=== PATIENT | female | born 1950 | race Caucasian/White ===

== ENCOUNTER 2018-06-07 09:09 | Emergency (ER) | payer OTHER, SELFPAY ==
[2018-06-07 09:13] VITALS: BP 181/92; PULSE 71; RESP 18; TEMP 36.8; O2SAT 97
[2018-06-07] MEDS: HYDROcodone 5/Acetaminophen 325 TAB PO (10:03)
[2018-06-07] MEDS: Diazepam 5 MG TAB PO (10:03)
--- NOTE | 2018-06-07 10:04 | W.ED.GENAD ---
Discharge Plan Disposition Patient Disposition: HOME Condition: Improving Discharge Details Chief Complaint: Orthopedic Clinical Impression: Chest wall contusion Primary Care Provider: Laisha Mcmahon ED Provider: Ludivina Oconnor Home Meds and New Rx's Prescriptions: New hydrocodone-acetaminophen 5-325 mg tablet 1 tab PO Q6H PRN (Reason: pain) Qty: 10 RF: 0 diazepam [Valium] 5 mg tablet 5 mg PO TID PRN (Reason: muscle spasm) Qty: 10 RF: 0 Continue cetirizine [Zyrtec] 10 MG tablet 10 mg PO DAILY PRNRF: 0 lancets [FreeStyle Lancets] 1 EACH misc 1 ea Sub-Q DAILY PRNRF: 0 TEST STRIPS 1 EACH strip 1 strip Intradermal DAILY RF: 0 nystatin 15 GM cream 15 gm Topical BID PRNQty: 15 RF: 0 atorvastatin 40 MG tablet 40 mg PO DAILY Qty: 90 RF: 12 lisinopril 2.5 MG tablet 2.5 mg PO DAILY Qty: 90 RF: 12 duloxetine 60 MG capsule,delayed release(DR/EC) 60 mg PO DAILY Qty: 90 RF: 12 rivaroxaban [Xarelto] 20 MG tablet 20 mg PO DAILY Qty: 90 RF: 12 ergocalciferol (vitamin D2) [Vitamin D2] 50,000 UNIT capsule 1 tab-cap PO Qty: 12 RF: 4 furosemide [Lasix] 40 MG tablet 40 mg PO DAILY PRNQty: 90 RF: 4 gabapentin 600 MG tablet 600 mg PO TID Qty: 270 RF: 12 allopurinol 100 MG tablet 100 mg PO DAILY Qty: 90 RF: 12 ropinirole [Requip] 2 MG tablet 2 mg PO QPM Qty: 90 RF: 4 celecoxib [Celebrex] 200 MG capsule 200 mg PO DAILY Qty: 90 RF: 12 fluticasone-salmeterol [Advair Diskus] 1 EACH blister with device 1 puff Inhalation BID PRNQty: 3 RF: 12 epinephrine [EpiPen 2-Erick] 0.3 MG/0.3 ML auto-injector 0.3 mg IM ONCE Qty: 2 RF: 10 Metoprolol Succinate 25 MG TAB.ER.24H 25 mg PO DAILY Qty: 90 RF: 12 glipizide 10 MG tablet extended release 24hr 10 mg PO DAILY Qty: 90 RF: 11 omeprazole 20 MG capsule,delayed release(DR/EC) 20 mg PO DAILY Qty: 90 RF: 12 folic acid 1 mg tablet 1 mg PO DAILY Qty: 90 RF: 5 acetaminophen [Acetaminophen Extra Strength] 500 MG tablet 1,000 mg PO TID Qty: 180 RF: 3 multivitamin [Multiple Vitamins] 1 TAB tablet 1 tab PO BID PC RF: 0 cyanocobalamin (vitamin B-12) [Vitamin B-12] 500 MCG tablet 1,000 mcg PO DAILY Qty: 100 RF: 0 Discharge Instructions Instructions: Contusion in Adults (ED), Chest Wall Pain (ED) Additional Instructions: Stop taking the Percocet if you are taking the Vicodin. Do not take any additional Tylenol while you are taking the Percocet or Vicodin. Take the Valium as needed and directed for muscle spasm. Alternate ice and heat to the affected area several times daily. Follow-up with your primary care doctor in 1 week for reevaluation. Return immediately to the emergency department any worsening or new concerning symptoms. Discharge Data Discharge Date/Time-TO BE ENTERED AT DEPARTURE: 06/07/18 12:54 Discharge Physician: Ludivina Oconnor Medical Decision Making 67-year-old F w/ h/o of Afib, DM, HTN, Gout who presents for persistent chest wall pain worse with deep breath and movement after fall directly on chest 2 days ago. She was seen at [facility] after injury [address] and had [address] imaging including CT head/C-spine/chest/abdomen and pelvis which she states were negative and she was sent home with Percocet. She denies any new injury. Blood pressure 181/92. Remainder vitals within normal limits. Patient appears nontoxic and in no acute distress. She is speaking in full sentences. Patient has significant tenderness to palpation and pain with upper body movement with movement of her left upper extremity in her left anterior chest and left axilla. Lungs clear to auscultation. Abdomen soft and nontender. No C-spine/T-spine/L-spine tenderness. No obvious evidence of trauma to chest. Patient denies any symptoms prior to fall and states she only developed the chest wall pain after falling directly onto her chest 2 days ago. Appears consistent with chest wall contusion/strain but due to patient's age and medical history, will obtain an EKG. Explained to patient that it is not unusual for pain associated with muscle strain or contusion to last for several days to weeks. As patient has had no relief with Percocet and has been making her nauseous, will give a dose of hydrocodone/Tylenol as well as Valium. Patient offered imaging but through shared decision making, did not see any indication for repeat imaging. Will call [facility] for reports of imaging and lab results. 1010 --EKG notes a rate of 63, sinus, biphasic T wave in lead III not seen in previous but otherwise no acute ST elevation or depression. 1130 --patient feels much better. [facility] imaging reports of CT head/C-spine/chest/abdomen pelvis negative for acute findings. They had not checked a troponin. Will order a troponin. 1230 --troponin negative. Patient feels good and is requesting to go home. She was instructed to stop taking the Percocet as it causes nausea. She had relief today with the Vicodin and Valium so we will prescribe both for home. She was instructed to not take additional Tylenol with vicodin. Instructed to alternate ice and heat, follow-up with her primary care doctor in 1 week and return immediately to the emergency department with any worsening symptoms. HPI General Mode of arrival: ambulatory. Date/Time Provider Initiated Documentation: 06/07/18 09:20. Limitations to Documentation: no limitations. Information obtained by: patient. HPI Narrative: Patient is a 67-year-old female with history of atrial fibrillation, hypertension, gout and diabetes who presents for persistent chest wall pain worse with deep breath and movement after fall directly on chest 2 days ago. Patient states she thinks she tripped over a rock and fell directly onto her chest on the ground at work 2 days ago. She was seen at [facility] 2 days ago right after this injury and had CT imaging including CT head/C-spine/chest/abdomen and pelvis which she states were negative and she was sent home with Percocet. States the Percocet mainly makes her nauseous and does not help with the pain. States she was concerned that she still has pain worse with movement and deep breath. She called her PCP for evaluation today but they were unable to get her an appointment so she was referred here. She denies any new injury. Past medical history: Afib, HTN, Gout, DM Surgical history: Tubal, Rotator cuff repair, R wrist surgery, Carpal tunnel release, L eye surgery, Cholecystectomy, L hip replacement Social history: Smokes tobacco, denies alcohol or drugs Meds: See list Allergies: Adhesive PCP: Laisha Mcmahon Related Data Home Medications Medication Instructions Recorded Confirmed Test Strips 1 strip INTRADERMAL DAILY strip 11/27/12 06/07/18 cetirizine [Zyrtec] 10 mg PO DAILY PRN tab 11/27/12 06/07/18 lancets [FreeStyle Lancets] ea 11/27/12 02/06/18 nystatin 15 gm TOPICAL BID PRN #15 gm 03/10/15 06/07/18 acetaminophen [Acetaminophen Extra 1,000 mg PO TID #180 tablet 11/12/15 06/07/18 Strength] cyanocobalamin (vitamin B-12) 1,000 mcg PO DAILY #100 tab 02/16/17 06/07/18 [Vitamin B-12] multivitamin [Multiple Vitamins] 1 tab PO BID PC tab 02/16/17 06/07/18 atorvastatin 40 mg PO DAILY #90 tab-cap 05/18/17 06/07/18 duloxetine 60 mg PO DAILY #90 tab-cap 08/17/17 06/07/18 lisinopril 2.5 mg PO DAILY #90 tab-cap 08/17/17 06/07/18 rivaroxaban [Xarelto] 20 mg PO DAILY #90 tab-cap 09/12/17 06/07/18 ergocalciferol (vitamin D2) 1 tab-cap PO M-W-F #12 tab-cap 10/04/17 06/07/18 [Vitamin D2] allopurinol 100 mg PO DAILY #90 tab-cap 12/04/17 06/07/18 furosemide [Lasix] 40 mg PO DAILY PRN #90 tab 12/04/17 06/07/18 gabapentin 600 mg PO TID #270 tab-cap 12/04/17 06/07/18 ropinirole [Requip] 2 mg PO QPM #90 tab 12/04/17 06/07/18 celecoxib [Celebrex] 200 mg PO DAILY #90 tab-cap 12/11/17 06/07/18 epinephrine [EpiPen 2-Erick] 0.3 mg IM ONCE #2 dose 12/11/17 06/07/18 fluticasone-salmeterol [Advair 1 puff INHALATION BID PRN #3 disk 12/11/17 06/07/18 Diskus] glipizide 10 mg PO DAILY #90 tab-cap 01/23/18 06/07/18 omeprazole 20 mg PO DAILY #90 tab-cap 02/22/18 06/07/18 folic acid 1 mg tablet 1 mg PO DAILY #90 tab 05/21/18 06/07/18 diazepam [Valium] 5 mg PO TID PRN #10 tab 06/07/18 hydrocodone-acetaminophen 1 tab PO Q6H PRN #10 tab 06/07/18 Previous Rx's Medication Instructions Recorded acetaminophen [Acetaminophen Extra 1,000 mg PO TID #180 tablet 11/12/15 Strength] cyanocobalamin (vitamin B-12) 1,000 mcg PO DAILY #100 tab 02/16/17 [Vitamin B-12] multivitamin [Multiple Vitamins] 1 tab PO BID PC tab 02/16/17 duloxetine 60 mg PO DAILY #90 tab-cap 08/17/17 lisinopril 2.5 mg PO DAILY #90 tab-cap 08/17/17 rivaroxaban [Xarelto] 20 mg PO DAILY #90 tab-cap 09/12/17 ergocalciferol (vitamin D2) 1 tab-cap PO M-W-F #12 tab-cap 10/04/17 [Vitamin D2] allopurinol 100 mg PO DAILY #90 tab-cap 12/04/17 gabapentin 600 mg PO TID #270 tab-cap 12/04/17 ropinirole [Requip] 2 mg PO QPM #90 tab 12/04/17 celecoxib [Celebrex] 200 mg PO DAILY #90 tab-cap 12/11/17 epinephrine [EpiPen 2-Erick] 0.3 mg IM ONCE #2 dose 12/11/17 glipizide 10 mg PO DAILY #90 tab-cap 01/23/18 omeprazole 20 mg PO DAILY #90 tab-cap 02/22/18 folic acid 1 mg tablet 1 mg PO DAILY #90 tab 05/21/18 diazepam [Valium] 5 mg PO TID PRN #10 tab 06/07/18 hydrocodone-acetaminophen 1 tab PO Q6H PRN #10 tab 06/07/18 Allergies Allergy/AdvReac Type Severity Reaction Status Date / Time venom-honey bee Allergy Severe ANAPHYLAXIS Unverified 06/07/18 09:15 adhesive Allergy BLISTERS Unverified 06/07/18 09:15 General Stated Complaint: Orthopedic STEPHANIE: 4 Review of Systems Review of Systems All systems reviewed & are unremarkable except as noted in HPI and below Constitutional Denies chills, Denies excessive sweating, Denies fatigue, Denies fever(s), Denies weakness and Denies weight loss Eyes Reports system reviewed and no additional complaints, except as docu and Denies blurry vision ENT Denies vertigo, Denies dizziness, Denies otalgia, Denies nasal congestion, Denies sore throat and Denies throat swelling Cardiovascular Reports chest pain, Denies syncope, Denies rapid heart rate and Denies dyspnea Respiratory Denies dyspnea Gastrointestinal Denies abdominal pain, Denies diarrhea and Denies vomiting Genitourinary Denies hematuria, Denies dysuria and Denies flank pain Musculoskeletal Denies back pain and Denies joint swelling Integumentary/Breasts Denies lesions and Denies rash Neurologic Denies behavioral changes, Denies confusion, Denies vertigo, Denies dizziness, Denies syncope and Denies weakness Psychiatric Denies behavioral changes, Denies confusion and Denies depression Endocrine Denies excessive sweating and Denies fatigue Hematologic/Lymphatic Denies easy bruising and Denies lymphadenopathy Allergic/Immunologic Denies throat swelling PFSH Family History Mother Diabetes Essential hypertension Personal history of malignant neoplasm Heart disease Hyperlipidemia Cerebrovascular accident Asthma Father Diabetes Essential hypertension Personal history of malignant neoplasm Heart disease Asthma Sister Diabetes Essential hypertension Depression Heart disease Asthma Grandfather No problems noted. Grandfather No problems noted. Grandmother Personal history of malignant neoplasm Grandmother Diabetes Aunt Personal history of malignant neoplasm Brother Hyperlipidemia Cerebrovascular accident Sister Asthma Son Asthma Daughter Depression Asthma Daughter Asthma Daughter Depression Neoplasm Asthma Brother No problems noted. Medical History Atrial fibrillation COPD (chronic obstructive pulmonary disease) Carpal tunnel syndrome Cervical spondylosis with myelopathy Diabetes mellitus Gout Hypertension Spinal stenosis of lumbar region at multiple levels Vitamin D deficiency Social History Smoking/Tobacco Use Status: Current, status unknown Surgical History Arthrodesis Cholecystectomy (07/31/13) Endometrial Biopsy Left eye surgery Ligation of fallopian tube (~1980) Open Carpal Tunnel release Right wrist surgery Rotator Cuff Repair (~1980) SPINE SURGERY Total replacement of hip cervical repair (~10/2008) tarsal tunnel release (~1997) Exam Const General: cooperative and healthy appearing Orientation: alert and awake HENMT Head: normal to inspection Ears: hearing grossly normal bilaterally, external ears normal and TM's normal bilaterally General nose exam: external nose normal Face and sinus: normal facial exam Mouth: oral mucosae normal Teeth and gingiva: dentition normal Throat: posterior oropharynx normal Eyes General: appearance normal, both eyes and all related structures Eyelids: eyelids normal Pupils: PERRL EOM: EOM intact bilaterally Neck Neck: normal visual inspection Lymphatic: no lymphadenopathy noted Chest Chest: normal inspection of the chest and tenderness (Substernal, left anterior chest, and extending into left lateral outer chest under left axilla. No evidence of trauma, crepitus, step-off) Breast inspection: normal inspection of the breasts Resp Effort & Inspection: normal respiratory effort and able to speak in complete sentences Auscultation: clear to auscultation bilaterally Cardio Rate: regular rate Rhythm: regular rhythm GI Inspection: normal to inspection and no abdominal wall ecchymosis Palpation: soft, not firm, no guarding, no hepatosplenomegaly, no masses and nontender Auscultation: normal bowel sounds Back/Spine/Pelvis Back: no CVA tenderness and No ecchymosis Cervical Spine: No cervical spinal tenderness Thoracic/Lumbar Spine: No thoracic spinal tenderness and No lumbar spinal tenderness Pelvis: no pain with anterior-posterior compression Skin General skin exam: no rashes or lesions noted Neuro General: alert, awake and oriented x3 Cognition: normal cognition Speech: speech normal Gait: normal gait Motor: muscle tone normal throughout and strength 5/5 throughout Sensory Exam: no sensory deficits noted Extrem General: normal to inspection, full ROM, normal capillary refill and other (No evidence of trauma) Psych Appearance: grossly normal Mental Status: mental status grossly normal Speech and Movement: speech and movement normal Affect: normal affect Thought Process: normal Course Vital Signs Temperature 98.2 F 06/07/18 09:13 Pulse 71 06/07/18 09:13 Respiratory Rate 18 06/07/18 09:13 Blood Pressure 181/92 H 06/07/18 09:13 Pulse Oximetry 97 06/07/18 09:13 Temperature 98.2 F 06/07/18 09:13 Temperature Source Temporal Artery Scan 06/07/18 09:13 Pulse 71 06/07/18 09:13 Respiratory Rate 18 06/07/18 09:13 Respiratory Effort 06/07/18 09:26 Blood Pressure 181/92 H 06/07/18 09:13 Pulse Oximetry 97 06/07/18 09:13 Oxygen Delivery Method Room Air 06/07/18 09:13 Oxygen Flow Rate 0 06/07/18 09:13 Pain Level 9 06/07/18 09:34
[2018-06-07 11:36] LABS: Troponin I < 0.02 ng/mL (0.00-0.06)
[2018-06-07 12:00] VITALS: BP 141/68; PULSE 77; RESP 16; TEMP 36.4; O2SAT 94
== END 2018-06-07 12:54 | disposition home or self-care (01) ==
PROVIDERS: Emergency Provider Physician Assistant; PCP Family Medicine
DX: S20.212A Contusion of left front wall of thorax, initial encounter (principal); W18.39XA Other fall on same level, initial encounter; E11.9 Type 2 diabetes mellitus without complications; Z79.84 Long term (current) use of oral hypoglycemic drugs; J44.9 Chronic obstructive pulmonary disease, unspecified; F17.210 Nicotine dependence, cigarettes, uncomplicated; I10 Essential (primary) hypertension
CPT/HCPCS: 36415; 93005; 99283; 84484; 93010

== ENCOUNTER 2018-08-08 01:14 | Outpatient (CLI) | payer BC, SELFPAY ==
[2018-08-08 12:13] LABS: ALT 37 U/L (12-78); AST 22 U/L (15-37); Albumin 3.7 g/dL (3.4-5.0); Alkaline Phosphatase 86 U/L (46-116); Anion Gap 10.8 mmol/L (3-11); BUN 30 mg/dL (7-18); Bilirubin, Total 0.6 mg/dL (0.2-1.0); CO2 26.2 mmol/L (21.0-32.0); CREATININE 1.87 mg/dL (0.55-1.02); Calcium 8.9 mg/dL (8.5-10.1); Chloride 104 mmol/L (98-107); Cholesterol 167 mg/dL (50-200); Estimated GFR 27.02 (mL/min/1.73m2); Glucose 201 mg/dL (70-100); HDL Cholesterol 67 mg/dL (40-60); LDL CHOLESTEROL 84 mg/dL (<100); Potassium 4.5 mmol/L (3.5-5.1); Sodium 141 mmol/L (136-145); TSH (W/Ref FT4) 1.65 uIU/mL (0.358-3.74); Total Protein 6.7 g/dL (6.4-8.2); Triglyceride 79 mg/dL (30-150)
[2018-08-08 13:27] LABS: Hemoglobin A1C 7.5 % (4.5-6.2)
== END 2018-08-08 01:34 ==
PROVIDERS: PCP Family Medicine; Visit Provider Family Medicine
DX: E11.9 Type 2 diabetes mellitus without complications (principal); I10 Essential (primary) hypertension; N28.9 Disorder of kidney and ureter, unspecified; I48.0 Paroxysmal atrial fibrillation
CPT/HCPCS: 36415; 80053; 80061; 83721; 83036; 84443

== ENCOUNTER 2018-09-27 10:44 | Outpatient (CLI) | payer BC, SELFPAY ==
[2018-09-27 12:58] LABS: ALT 33 U/L (12-78); AST 19 U/L (15-37); Albumin 3.4 g/dL (3.4-5.0); Alkaline Phosphatase 105 U/L (46-116); Anion Gap 11.2 mmol/L (3-11); BUN 22 mg/dL (7-18); Bilirubin, Total 0.5 mg/dL (0.2-1.0); CO2 26.8 mmol/L (21.0-32.0); CREATININE 1.64 mg/dL (0.55-1.02); Calcium 9.1 mg/dL (8.5-10.1); Chloride 105 mmol/L (98-107); Estimated GFR 31.44 (mL/min/1.73m2); Glucose 208 mg/dL (70-100); Potassium 4.4 mmol/L (3.5-5.1); Sodium 143 mmol/L (136-145); Total Protein 6.9 g/dL (6.4-8.2)
[2018-09-27 13:01] LABS: Hemoglobin A1C 7.7 % (4.5-6.2)
[2018-09-27 13:17] LABS: Vitamin D 25 Total 89.3 ng/ml (30-100)
== END 2018-09-27 11:04 ==
PROVIDERS: PCP Family Medicine; Visit Provider Family Medicine
DX: E11.9 Type 2 diabetes mellitus without complications (principal); E55.9 Vitamin D deficiency, unspecified; N28.9 Disorder of kidney and ureter, unspecified
CPT/HCPCS: 36415; 80053; 82306; 83036

== ENCOUNTER 2018-11-21 01:52 | Outpatient (CLI) | payer BC, SELFPAY ==
--- NOTE | 2018-11-21 08:20 | DI.RAD_ITS ---
SYMPTOM/DIAGNOSIS: HEMOPTYSIS, R04.2 PA AND LATERAL CHEST: There is evidence of COPD. No infiltrate or mass is defined. There is no pleural effusion. The cardiovascular structures are intact. SUMMARY: COPD. No evidence of acute cardiopulmonary disease with no interval change when compared with a 02/06/2018 examination.
[2018-11-21 09:25] LABS: Abs Immature Grans 0.04 k/cumm (0.0-0.09); Absolute Basophil Count 0.09 k/cumm (0.0-0.2); Absolute Eosinophil Count 0.82 k/cumm (0.0-0.7); Absolute Lymphocyte Count 2.18 k/cumm (1.2-3.4); Absolute Monocyte Count 0.63 k/cumm (0.11-0.7); Absolute Neutrophil Count 5.23 k/cumm (1.2-6.7); Eosinophils % 9.1; HCT 45.1 % (36.0-46.0); HGB 14.3 g/dL (12.0-15.5); Immature Grans % 0.4; Lymphocytes % 24.2; Mean Corp. HGB Concentration 31.7 g/dL (32.0-36.0); Mean Corpuscular Hemoglobin 30.8 pg (27.0-33.0); Mean Corpuscular Volume 97.2 fL (80-95); Mean Platelet Volume 10.3 fL (8.0-11.0); Neutrophils % 58.3; Platelet Count 233 x1000/uL (130-400); RBC 4.64 m/cumm (4.00-5.20); RBC Distribution Width 13.6 % (11.7-14.6); White Blood Cell Count 8.99 k/cumm (4.4-10.8)
[2018-11-21 09:47] LABS: ALT 32 U/L (12-78); AST 17 U/L (15-37); Albumin 3.7 g/dL (3.4-5.0); Alkaline Phosphatase 83 U/L (46-116); Anion Gap 9.5 mmol/L (3-11); BUN 22 mg/dL (7-18); Bilirubin, Total 0.4 mg/dL (0.2-1.0); CO2 26.5 mmol/L (21.0-32.0); CREATININE 1.55 mg/dL (0.55-1.02); Calcium 9.1 mg/dL (8.5-10.1); Chloride 105 mmol/L (98-107); Estimated GFR 33.45 (mL/min/1.73m2); Glucose 165 mg/dL (70-100); Potassium 4.4 mmol/L (3.5-5.1); Sodium 141 mmol/L (136-145); Total Protein 6.8 g/dL (6.4-8.2)
== END 2018-11-21 02:12 ==
PROVIDERS: PCP Family Medicine; Visit Provider Family Medicine
DX: R04.2 Hemoptysis (principal); J44.9 Chronic obstructive pulmonary disease, unspecified; E11.22 Type 2 diabetes mellitus with diabetic chronic kidney disease; N28.89 Other specified disorders of kidney and ureter
CPT/HCPCS: 36415; 80053; 71046; 85025

== ENCOUNTER 2018-12-05 01:46 | Outpatient (CLI) | payer BC, SELFPAY ==
--- NOTE | 2018-12-05 12:22 | DI.CT_ITS ---
SYMPTOMS/DIAGNOSIS: SEVERAL EPISODES OF HEMOPTYSIS, R04.[address] AND HIGH RESOLUTION CHEST CT: Comparison is made with chest CT dated February,. The heart size is normal. Coronary artery calcifications and aortic calcifications are seen. There is no aortic aneurysm. No adenopathy, pleural or pericardial effusions are seen. There are minimal dependent changes at the lung bases and minimal linear basilar scarring. No pulmonary mass, nodules or infiltrates are seen. There are no emphysematous or fibrotic changes. There is no evidence of bronchiectasis. The patient is status post cholecystectomy. The upper portions of the liver and spleen are unremarkable. A cyst is noted at the upper pole of the right kidney. There are bilateral low density adrenal masses seen on previous CT of the abdomen and pelvis dated January,. Degenerative changes are seen in the thoracic spine. IMPRESSION: No acute pulmonary abnormality. Stable bilateral adrenal lesions, presumably adenomas.
== END 2018-12-05 02:06 ==
PROVIDERS: PCP Family Medicine; Visit Provider Family Medicine
DX: R04.2 Hemoptysis (principal); E27.8 Other specified disorders of adrenal gland
CPT/HCPCS: 71250

== ENCOUNTER 2018-12-06 16:40 | Outpatient (CLI) | payer BC, SELFPAY ==
[2018-12-06 12:21] LABS: Abs Immature Grans 0.01 k/cumm (0.0-0.09); Absolute Basophil Count 0.06 k/cumm (0.0-0.2); Absolute Eosinophil Count 0.66 k/cumm (0.0-0.7); Absolute Lymphocyte Count 1.49 k/cumm (1.2-3.4); Absolute Monocyte Count 0.54 k/cumm (0.11-0.7); Absolute Neutrophil Count 4.39 k/cumm (1.2-6.7); Basophils % 0.8; Eosinophils % 9.2; Immature Grans % 0.1; Lymphocytes % 20.8; Mean Corp. HGB Concentration 31.9 g/dL (32.0-36.0); Mean Corpuscular Hemoglobin 30.7 pg (27.0-33.0); Mean Corpuscular Volume 96.3 fL (80-95); Mean Platelet Volume 10.3 fL (8.0-11.0); Monocytes % 7.6; Neutrophils % 61.5; Platelet Count 212 x1000/uL (130-400); RBC 4.88 m/cumm (4.00-5.20); RBC Distribution Width 13.8 % (11.7-14.6); White Blood Cell Count 7.15 k/cumm (4.4-10.8)
--- NOTE | 2018-12-06 12:45 | DI.RAD_ITS ---
SYMPTOMS/DIAGNOSIS: RIGHT SKULL SWELLING, M95.2, SKULL DEFORMITY X 3 DAYS, NO TRAUMA OR SURGERY; RIGHT HIP PAIN X 1 YEAR, S/P LEFT HIP REPLACEMENT, M25.551 AP AND LATERAL SKULL: The bone calvarium is intact. No bony mass is identified. No localized soft tissue abnormality is seen. As visualized, the paranasal sinuses and orbits are intact. The patient is edentulous. Note is made of rods and pedicle screws and a plate and screw fixation device affixed to the cervical spine, only partially demonstrated on today's images. RIGHT HIP AND PELVIS: The bony structures are normally mineralized. Minimal degenerative changes involving the right hip are identified. Note is made of a left hip prosthesis in good position, surrounding bone intact.
[2018-12-06 13:18] LABS: ALT 39 U/L (12-78); AST 20 U/L (15-37); Albumin 3.8 g/dL (3.4-5.0); Alkaline Phosphatase 80 U/L (46-116); Anion Gap 13.1 mmol/L (3-11); BUN 26 mg/dL (7-18); Bilirubin, Total 0.5 mg/dL (0.2-1.0); C-Reactive Protein 0.07 mg/dL (0.0-0.3); CO2 23.9 mmol/L (21.0-32.0); CREATININE 1.71 mg/dL (0.55-1.02); Calcium 9.5 mg/dL (8.5-10.1); Chloride 105 mmol/L (98-107); Estimated GFR 29.87 (mL/min/1.73m2); Glucose 239 mg/dL (70-100); Potassium 4.3 mmol/L (3.5-5.1); Sodium 142 mmol/L (136-145); Total Protein 7.2 g/dL (6.4-8.2)
[2018-12-06 13:34] LABS: ESR 10 MM/HR (0-30)
== END 2018-12-06 17:00 ==
PROVIDERS: PCP Family Medicine; Visit Provider Family Medicine
DX: R51 Headache (principal); R22.1 Localized swelling, mass and lump, neck; M95.2 Other acquired deformity of head; M25.551 Pain in right hip; M16.11 Unilateral primary osteoarthritis, right hip; Z96.642 Presence of left artificial hip joint
CPT/HCPCS: 36415; 80053; 85652; 70250; 73502; 85025; 86140

== ENCOUNTER 2018-12-09 12:21 | Emergency (ER) | payer BC, SELFPAY ==
[2018-12-09 12:27] VITALS: BP 102/83; PULSE 92; RESP 14; TEMP 36.3; O2SAT 94
--- NOTE | 2018-12-09 13:18 | W.ED.GENAD ---
Discharge Plan Disposition Patient Disposition: HOME Condition: Stable Discharge Details Chief Complaint: RashLesion Clinical Impression: Shingles Primary Care Provider: Laisha Mcmahon ED Provider: Ludivina Oconnor Home Meds and New Rx's Prescriptions: New valacyclovir 1 gram tablet 1,000 mg PO TID 7 Days Qty: 21 RF: 0 meclizine 12.5 mg tablet 12.5 mg PO TID PRN (Reason: dizziness) Qty: 10 RF: 0 Continued allopurinol 100 mg tablet 100 mg PO DAILY Qty: 90 RF: 12 furosemide [Lasix] 40 mg tablet 40 mg PO DAILY PRN (Reason: edema) Qty: 90 RF: 0 gabapentin 600 mg tablet 600 mg PO TID Qty: 270 RF: 12 glipizide 10 mg tablet extended release 24hr 10 mg PO DAILY Qty: 90 RF: 11 Xarelto 20 mg tablet 20 mg PO DAILY Qty: 90 RF: 12 ropinirole [Requip] 2 mg tablet 2 mg PO QPM Qty: 90 RF: 4 metoprolol succinate 25 mg tablet extended release 24 hr 25 mg PO DAILY RF: 0 atorvastatin 40 mg tablet 40 mg PO DAILY Qty: 90 RF: 6 duloxetine 60 mg capsule,delayed release(DR/EC) 60 mg PO DAILY Qty: 90 RF: 12 lisinopril 10 mg tablet 10 mg PO DAILY Qty: 90 RF: 12 amoxicillin-pot clavulanate 500-125 mg tablet 1 tab PO BID Qty: 14 RF: 0 fluconazole 150 mg tablet 150 mg PO Q24H Qty: 4 RF: 0 cetirizine [Zyrtec] 10 MG tablet 10 mg PO DAILY PRNRF: 0 lancets [FreeStyle Lancets] 1 EACH misc 1 ea Sub-Q DAILY PRNRF: 0 TEST STRIPS 1 EACH strip 1 strip Intradermal DAILY RF: 0 ergocalciferol (vitamin D2) [Vitamin D2] 50,000 UNIT capsule 1 tab-cap PO -- Qty: 12 RF: 4 fluticasone propion-salmeterol [Advair Diskus] 1 EACH blister with device 1 puff Inhalation BID PRNQty: 3 RF: 12 epinephrine [EpiPen 2-Erick] 0.3 MG/0.3 ML auto-injector 0.3 mg IM ONCE Qty: 2 RF: 10 omeprazole 20 MG capsule,delayed release(DR/EC) 20 mg PO DAILY Qty: 90 RF: 12 folic acid 1 mg tablet 1 mg PO DAILY Qty: 90 RF: 5 nystatin 100,000 unit/gram cream 1 applic Topical BID PRN (Reason: yeast) Qty: 30 RF: 2 acetaminophen [Acetaminophen Extra Strength] 500 MG tablet 1,000 mg PO TID Qty: 180 RF: 3 multivitamin [Multiple Vitamins] 1 TAB tablet 1 tab PO BID PC RF: 0 cyanocobalamin (vitamin B-12) [Vitamin B-12] 500 MCG tablet 1,000 mcg PO DAILY Qty: 100 RF: 0 Discharge Instructions Instructions: Shingles (ED) Additional Instructions: Take the valacyclovir as directed until finished. Take the Augmentin as directed until finished. Call Dr. Mcmahon's office tomorrow morning to schedule a follow-up appointment for reevaluation. Return immediately to the emergency department any worsening or new concerning symptoms. Discharge Data Discharge Date/Time-TO BE ENTERED AT DEPARTURE: 12/09/18 13:48 Discharge Physician: Ludivina Oconnor Medical Decision Making 68-year-old female who presents with painful and tingling rash to the right side of her head for the past 6 days. Treated with Augmentin by her PCP for possible skin infection. She now is developed itchy rash to the right of her right eye. Denies headache, neck pain, fever. Has a history of vertigo and admits to vertigo today. No relief with Dramamine. Afebrile. Normal blood pressure and heart rate. Patient appears nontoxic. Airway intact. No signs of respiratory distress. The rash on the right side of her head is noted to have pustules with surrounding erythema and is tender to palpation. The rash to the right of her right eye is consistent with erythematous papules. There are no obvious vesicles. Due to complaints of significant exquisite pain, concern for shingles. She denies any blurry vision. At this point in time, would recommend treatment with antivirals. Does not appear obviously consistent with herpes zoster ophthalmicus, but with rash starting near her eye, patient instructed that this may worsen and to follow-up with her primary care doctor this week for reevaluation. Will give a prescription for valacyclovir. Patient was also given a dose of meclizine and prescription for home for meclizine per her request. She is instructed to drink plenty of fluids, continue the Augmentin until finished, call her primary care doctor for reevaluation and return here immediately if worse. HPI General Mode of arrival: ambulatory. Date/Time Provider Initiated Documentation: 12/09/18 12:57. Limitations to Documentation: no limitations. Information obtained by: patient. HPI Narrative: Patient is a 68-year-old female who presents the ED with complaint of painful rash and lesion to the right side of her head for the past [address] Mcmahon 3 days ago for this complaint and was diagnosed with a skin infection and started on Augmentin. She has been taking this for 3 days and states her symptoms are worse. She states the rash in the side of her head is exquisitely tender to touch and painful. She states she now has an area of redness and swelling near her right eye and states this is itchy without significant pain. She denies blurry vision, fever, nausea, vomiting, diarrhea, headache or neck pain. She does have a history of vertigo and states that she has had worsening vertigo today. She denies any other new soaps, lotions, detergents, shampoo, conditioner, pets or other new medications. Related Data Home Medications Medication Instructions Recorded Confirmed Test Strips 1 strip INTRADERMAL DAILY strip 11/27/12 12/06/18 cetirizine [Zyrtec] 10 mg PO DAILY PRN tab 11/27/12 12/09/18 lancets [FreeStyle Lancets] ea 11/27/12 12/06/18 acetaminophen [Acetaminophen Extra 1,000 mg PO TID #180 tab 11/12/15 12/09/18 Strength] cyanocobalamin (vitamin B-12) 1,000 mcg PO DAILY #100 tab 02/16/17 12/09/18 [Vitamin B-12] multivitamin [Multiple Vitamins] 1 tab PO BID PC tab 02/16/17 12/09/18 ergocalciferol (vitamin D2) 1 tab-cap PO M-W-F #12 tab-cap 10/04/17 12/09/18 [Vitamin D2] epinephrine [EpiPen 2-Erick] 0.3 mg IM ONCE #2 dose 12/11/17 12/09/18 fluticasone propion-salmeterol 1 puff INHALATION BID PRN #3 disk 12/11/17 12/09/18 [Advair Diskus] omeprazole 20 mg PO DAILY #90 tab-cap 02/22/18 12/09/18 folic acid 1 mg tablet 1 mg PO DAILY #90 tab 05/21/18 12/09/18 metoprolol succinate ER 25 mg 25 mg PO DAILY 06/13/18 12/09/18 tablet,extended release 24 hr atorvastatin 40 mg tablet 40 mg PO DAILY #90 tab-cap 06/14/18 12/09/18 duloxetine 60 mg capsule,delayed 60 mg PO DAILY #90 tab-cap 06/14/18 12/09/18 release allopurinol 100 mg tablet 100 mg PO DAILY #90 tab-cap 08/09/18 12/09/18 furosemide 40 mg tablet 40 mg PO DAILY PRN #90 tab 08/09/18 12/09/18 gabapentin 600 mg tablet 600 mg PO TID #270 tab-cap 08/09/18 12/09/18 glipizide ER 10 mg tablet, 10 mg PO DAILY #90 tab-cap 08/09/18 12/09/18 extended release 24 hr rivaroxaban 20 mg tablet 20 mg PO DAILY #90 tab-cap 08/09/18 12/09/18 ropinirole 2 mg tablet 2 mg PO QPM #90 tab 08/09/18 12/09/18 lisinopril 10 mg tablet 10 mg PO DAILY #90 tab-cap 08/23/18 12/09/18 nystatin 100,000 unit/gram topical 1 applic TOPICAL BID PRN #30 gm 12/04/18 12/09/18 cream amoxicillin 500 mg-potassium 1 tab PO BID #14 tab 12/06/18 12/09/18 clavulanate 125 mg tablet fluconazole 150 mg tablet 150 mg PO Q24H #4 tab 12/06/18 12/09/18 meclizine 12.5 mg PO TID PRN #10 tab 12/09/18 valacyclovir 1,000 mg PO TID 7 Days #21 tab 12/09/18 Previous Rx's Medication Instructions Recorded acetaminophen [Acetaminophen Extra 1,000 mg PO TID #180 tab 11/12/15 Strength] cyanocobalamin (vitamin B-12) 1,000 mcg PO DAILY #100 tab 02/16/17 [Vitamin B-12] multivitamin [Multiple Vitamins] 1 tab PO BID PC tab 02/16/17 ergocalciferol (vitamin D2) 1 tab-cap PO M-W-F #12 tab-cap 10/04/17 [Vitamin D2] epinephrine [EpiPen 2-Erick] 0.3 mg IM ONCE #2 dose 12/11/17 omeprazole 20 mg PO DAILY #90 tab-cap 02/22/18 folic acid 1 mg tablet 1 mg PO DAILY #90 tab 05/21/18 atorvastatin 40 mg tablet 40 mg PO DAILY #90 tab-cap 06/14/18 duloxetine 60 mg capsule,delayed 60 mg PO DAILY #90 tab-cap 06/14/18 release allopurinol 100 mg tablet 100 mg PO DAILY #90 tab-cap 08/09/18 furosemide 40 mg tablet 40 mg PO DAILY PRN #90 tab 08/09/18 gabapentin 600 mg tablet 600 mg PO TID #270 tab-cap 08/09/18 glipizide ER 10 mg tablet, 10 mg PO DAILY #90 tab-cap 08/09/18 extended release 24 hr rivaroxaban 20 mg tablet 20 mg PO DAILY #90 tab-cap 08/09/18 ropinirole 2 mg tablet 2 mg PO QPM #90 tab 08/09/18 lisinopril 10 mg tablet 10 mg PO DAILY #90 tab-cap 08/23/18 nystatin 100,000 unit/gram topical 1 applic TOPICAL BID PRN #30 gm 12/04/18 cream amoxicillin 500 mg-potassium 1 tab PO BID #14 tab 12/06/18 clavulanate 125 mg tablet fluconazole 150 mg tablet 150 mg PO Q24H #4 tab 12/06/18 meclizine 12.5 mg PO TID PRN #10 tab 12/09/18 valacyclovir 1,000 mg PO TID 7 Days #21 tab 12/09/18 Allergies Allergy/AdvReac Type Severity Reaction Status Date / Time venom-honey bee Allergy Severe ANAPHYLAXIS Verified 12/09/18 12:34 adhesive Allergy BLISTERS Verified 12/09/18 12:34 General Stated Complaint: RashLesion STEPHANIE: 4 Review of Systems Review of Systems All systems reviewed & are unremarkable except as noted in HPI and below Constitutional Reports as per HPI, Denies chills and Denies fever(s) Eyes Denies blurry vision ENT Denies dizziness, Denies sore throat and Denies throat swelling Cardiovascular Denies chest pain and Denies dyspnea Respiratory Denies cough and Denies dyspnea Gastrointestinal Denies abdominal pain, Denies diarrhea and Denies vomiting Genitourinary Denies hematuria and Denies dysuria Musculoskeletal Denies back pain and Denies numbness Integumentary/Breasts Reports lesions and Reports rash Neurologic Denies dizziness, Denies focal weakness and Denies numbness Allergic/Immunologic Denies throat swelling [facility] Medical History Hyperlipidemia (Chronic 08/10/00) Gout (Chronic 07/06/11) Spinal stenosis of lumbar region (Chronic 02/15/16) Restless legs (Chronic) Paroxysmal atrial fibrillation (Chronic 03/01/16) 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) Chronic obstructive lung disease (Chronic) Atrial fibrillation (Chronic) Restless leg syndrome (Chronic) Essential hypertension (Chronic) Hyperlipidemia (Chronic) History of coronary artery disease (Chronic) Abnormal mammography (Resolved) Ankle pain (Resolved 03/13/14) Carpal tunnel syndrome (Resolved 08/10/06) Cervical disc disorder with myelopathy (Resolved 08/21/08) Chest pain (Resolved) Diabetes mellitus (Resolved) Folate deficiency (Resolved 02/15/16) Hepatomegaly (Resolved) Hip joint inflamed (Resolved 09/03/15) Low back pain (Resolved 04/10/03) Menopausal syndrome (Resolved) Muscle fatigue (Resolved) Posterior tibial tendon dysfunction (Resolved) Postmenopausal bleeding (Resolved) Postoperative wound dehiscence (Resolved 12/23/15) Primary osteoarthritis of left hip (Resolved 09/17/15) Renal impairment (Resolved 07/11/03) Rotator cuff syndrome (Resolved 08/01/09) Smoker (Resolved 06/30/16) Tarsal tunnel syndrome (Resolved) Trochanteric bursitis (Resolved) Upper respiratory tract infection (Resolved 08/03/15) Vitamin D deficiency (Resolved) Atrial fibrillation COPD (chronic obstructive pulmonary disease) Carpal tunnel syndrome Cervical spondylosis with myelopathy Diabetes mellitus Gout Hypertension Spinal stenosis of lumbar region at multiple levels Vitamin D deficiency Surgical History H/O Spinal surgery (Resolved) H/O arthrodesis (Resolved) History of bilateral tubal ligation (Resolved) History of gynecologic surgery (Resolved) History of hip surgery (Resolved) History of orthopedic surgery (Resolved) S/P carpal tunnel release (Resolved) S/P cholecystectomy (Resolved) S/P rotator cuff repair (Resolved) Status post incision and drainage (Resolved) Arthrodesis Cholecystectomy (07/31/13) Endometrial Biopsy Left eye surgery Ligation of fallopian tube (~1980) Open Carpal Tunnel release Right wrist surgery Rotator Cuff Repair (~1980) SPINE SURGERY Total replacement of hip cervical repair (~10/2008) tarsal tunnel release (~1997) Social History Smoking/Tobacco Use Status: Former Tobacco Use Alcohol Intake: current Alcohol Intake frequency: a few times a week Drug use: Never Substance use type: does not use Household members: other Details: 2 current occupation: [employer] Pets and animals: Yes Pets and animals: cat(s), dog(s) and horse(s) What type of physical activity do you participate in: none Saniya/Protestant: Alevism Special saniya needs: No Do you feel safe at home: Yes Do you feel safe in your relationship?: Yes Exam Const General: cooperative, healthy appearing and no acute distress HENMT Head: normal to inspection Head images: 1. 2 x 2 centimeter area of tender erythema with scaling and 3-4 2 mm pustules in center. No active drainage. No bleeding. No induration or fluctuance. 2. Cluster of 3-4 erythematous papules to the right of the right eye. No pustules, vesicles, drainage or bleeding. Ears: hearing grossly normal bilaterally, external ears normal and TM's normal bilaterally General nose exam: external nose normal Face and sinus: normal facial exam Mouth: oral mucosae normal Teeth and gingiva: dentition normal Throat: posterior oropharynx normal Eyes General: appearance normal, both eyes and all related structures Neck Neck: normal visual inspection Resp Effort & Inspection: normal respiratory effort and able to speak in complete sentences Cardio Rate: regular rate Neuro General: alert, awake and oriented x3 Motor: muscle tone normal throughout Extrem General: normal to inspection and full ROM Psych Appearance: grossly normal Affect: normal affect Course Vital Signs Temperature 97.3 F L 12/09/18 12:27 Pulse 92 H 12/09/18 12:27 Respiratory Rate 14 12/09/18 12:27 Blood Pressure 102/83 12/09/18 12:27 Pulse Oximetry 94 L 12/09/18 12:27 Temperature 97.3 F L 12/09/18 12:27 Pulse 92 H 12/09/18 12:27 Respiratory Rate 14 12/09/18 12:27 Respiratory Effort Non-Labored 12/09/18 12:31 Blood Pressure 102/83 12/09/18 12:27 Blood Pressure Position Sitting 12/09/18 12:27 Pulse Oximetry 94 L 12/09/18 12:27 Oxygen Delivery Method Room Air 12/09/18 12:27 Oxygen Flow Rate 0 12/09/18 12:27 Pain Level 8 12/09/18 12:27
== END 2018-12-09 13:48 | disposition home or self-care (01) ==
PROVIDERS: Emergency Provider Physician Assistant; PCP Family Medicine
DX: B02.9 Zoster without complications (principal)
CPT/HCPCS: 99283

== ENCOUNTER 2018-12-30 14:09 | Emergency (ER) | payer BC, SELFPAY ==
[2018-12-30] VITALS (33 sets, daily range): BP systolic 102–140; BP diastolic 52–81; PULSE 85–107; RESP 8–28; TEMP 36.6–37.2; O2SAT 88–95
--- NOTE | 2018-12-30 14:16 | NUR.NOTE ---
pt has history of COPD asthma 12/26/18 pt developed nausea and increased SOB with exertion no fever. symptoms have progressed
--- NOTE | 2018-12-30 14:31 | W.ED.GENAD ---
Discharge Plan Discharge Details Chief Complaint: Nausea/Vomit/Diar Primary Care Provider: Laisha Mcmahon ED Provider: Darshan Campos Home Meds and New Rx's Prescriptions: No Action Xarelto 15 mg tablet 15 mg PO DAILY Qty: 90 RF: 12 Victoza 2-Erick 0.6 mg/0.1 mL (18 mg/3 mL) pen injector 0.6 mg SC DAILY Qty: 6 RF: 4 pen needle, diabetic [1st Tier Unifine Pentips] 31 gauge x 1/4 needle .ROUTE .MEDSUPPLY Qty: 30 RF: 5 Blood Glucose Test strip .ROUTE .MEDSUPPLY Qty: 100 RF: 5 lancets [OneTouch Delica Lancets] 33 gauge misc .ROUTE DAILY Qty: 100 RF: 0 allopurinol 100 mg tablet 100 mg PO DAILY Qty: 90 RF: 12 furosemide [Lasix] 40 mg tablet 40 mg PO DAILY PRN (Reason: edema) Qty: 90 RF: 0 gabapentin 600 mg tablet 600 mg PO TID Qty: 270 RF: 12 glipizide 10 mg tablet extended release 24hr 10 mg PO DAILY Qty: 90 RF: 11 ropinirole [Requip] 2 mg tablet 2 mg PO QPM Qty: 90 RF: 4 metoprolol succinate 25 mg tablet extended release 24 hr 25 mg PO DAILY RF: 0 atorvastatin 40 mg tablet 40 mg PO DAILY Qty: 90 RF: 6 duloxetine 60 mg capsule,delayed release(DR/EC) 60 mg PO DAILY Qty: 90 RF: 12 lisinopril 10 mg tablet 10 mg PO DAILY Qty: 90 RF: 12 fluconazole 150 mg tablet 150 mg PO Q24H Qty: 4 RF: 0 fluticasone propion-salmeterol [Advair Diskus] 250-50 mcg/dose blister with device 1 inh Inhalation BID PRN (Reason: asthma) Qty: 3 RF: 0 cetirizine [Zyrtec] 10 MG tablet 10 mg PO DAILY PRNRF: 0 lancets [FreeStyle Lancets] 1 EACH misc 1 ea Sub-Q DAILY PRNRF: 0 TEST STRIPS 1 EACH strip 1 strip Intradermal DAILY RF: 0 ergocalciferol (vitamin D2) [Vitamin D2] 50,000 UNIT capsule 1 tab-cap PO -W-F Qty: 12 RF: 4 epinephrine [EpiPen 2-Erick] 0.3 MG/0.3 ML auto-injector 0.3 mg IM ONCE Qty: 2 RF: 10 omeprazole 20 MG capsule,delayed release(DR/EC) 20 mg PO DAILY Qty: 90 RF: 12 folic acid 1 mg tablet 1 mg PO DAILY Qty: 90 RF: 5 nystatin 100,000 unit/gram cream 1 applic Topical BID PRN (Reason: yeast) Qty: 30 RF: 2 meclizine 12.5 mg tablet 25 mg PO TID PRN (Reason: dizziness) Qty: 60 RF: 3 acetaminophen [Acetaminophen Extra Strength] 500 MG tablet 1,000 mg PO TID Qty: 180 RF: 3 multivitamin [Multiple Vitamins] 1 TAB tablet 1 tab PO BID PC RF: 0 cyanocobalamin (vitamin B-12) [Vitamin B-12] 500 MCG tablet 1,000 mcg PO DAILY Qty: 100 RF: 0 Medical Decision Making 15:34 Patient's troponin elevated @ 0.5. She admits to some left shoulder discomfort starting last night. Her driving complaint today is shortness of breath that conjunction with her tachycardia plan is to send for a CTA of the chest to rule out PE. She does state that her Xarelto was cut down to 15 mg daily. Patient back from CTA. Read pending. Patient remained stable on the monitor. She has a slight O2 requirement at 2 L. Expiratory wheeze and rhonchi improved status post DuoNeb. Solu-Medrol 125 mg IV given. Plan is dependent on CTA read. If negative for PE we will proceed with NSTEMI management. Case discussed with and signed out to Dr. Campos. See his note for final disposition. HPI General Date/Time Provider Initiated Documentation: 12/30/18 14:23. HPI Narrative: Patient is a 68-year-old female with a significant past medical history of COPD presenting to the emergency department today with increasing shortness of breath and nausea over the last week. She recently traveled to [place] to visit her son where the temperature was hot and humid. She has done several breathing treatments at home without improvement. She denies any chest pain. No fevers although reports chills and sweats. She does not have a home O2 requirement Related Data Home Medications Medication Instructions Recorded Confirmed Test Strips 1 strip INTRADERMAL DAILY strip 11/27/12 12/30/18 cetirizine [Zyrtec] 10 mg PO DAILY PRN tab 11/27/12 12/30/18 lancets [FreeStyle Lancets] ea 11/27/12 12/30/18 acetaminophen [Acetaminophen Extra 1,000 mg PO TID #180 tab 11/12/15 12/30/18 Strength] cyanocobalamin (vitamin B-12) 1,000 mcg PO DAILY #100 tab 02/16/17 12/30/18 [Vitamin B-12] multivitamin [Multiple Vitamins] 1 tab PO BID PC tab 02/16/17 12/30/18 ergocalciferol (vitamin D2) 1 tab-cap PO M-W-F #12 tab-cap 10/04/17 12/30/18 [Vitamin D2] epinephrine [EpiPen 2-Erick] 0.3 mg IM ONCE #2 dose 12/11/17 12/30/18 omeprazole 20 mg PO DAILY #90 tab-cap 02/22/18 12/30/18 folic acid 1 mg tablet 1 mg PO DAILY #90 tab 05/21/18 12/30/18 metoprolol succinate ER 25 mg 25 mg PO DAILY 06/13/18 12/30/18 tablet,extended release 24 hr atorvastatin 40 mg tablet 40 mg PO DAILY #90 tab-cap 06/14/18 12/30/18 duloxetine 60 mg capsule,delayed 60 mg PO DAILY #90 tab-cap 06/14/18 12/30/18 release allopurinol 100 mg tablet 100 mg PO DAILY #90 tab-cap 08/09/18 12/30/18 furosemide 40 mg tablet 40 mg PO DAILY PRN #90 tab 08/09/18 12/30/18 gabapentin 600 mg tablet 600 mg PO TID #270 tab-cap 08/09/18 12/30/18 glipizide ER 10 mg tablet, 10 mg PO DAILY #90 tab-cap 08/09/18 12/30/18 extended release 24 hr ropinirole 2 mg tablet 2 mg PO QPM #90 tab 08/09/18 12/30/18 lisinopril 10 mg tablet 10 mg PO DAILY #90 tab-cap 08/23/18 12/30/18 nystatin 100,000 unit/gram topical 1 applic TOPICAL BID PRN #30 gm 12/04/18 12/30/18 cream fluconazole 150 mg tablet 150 mg PO Q24H #4 tab 12/11/18 12/30/18 fluticasone 250 mcg-salmeterol 50 1 inh INHALATION BID PRN #3 each 12/11/18 12/30/18 mcg/dose blistr powdr for inhalation meclizine 12.5 mg tablet 25 mg PO TID PRN #60 tab 12/17/18 12/30/18 blood sugar diagnostic strips #100 each 12/18/18 12/30/18 lancets 33 gauge #100 each 12/18/18 12/30/18 liraglutide 0.6 mg/0.1 mL (18 mg/3 0.6 mg SC DAILY #6 ml 12/18/18 12/30/18 mL) subcutaneous pen injector pen needle, diabetic 31 gauge x #30 each 12/18/18 12/30/1809/14 rivaroxaban 15 mg tablet 15 mg PO DAILY #90 tab-cap 12/18/18 12/30/18 Previous Rx's Medication Instructions Recorded acetaminophen [Acetaminophen Extra 1,000 mg PO TID #180 tab 11/12/15 Strength] cyanocobalamin (vitamin B-12) 1,000 mcg PO DAILY #100 tab 02/16/17 [Vitamin B-12] multivitamin [Multiple Vitamins] 1 tab PO BID PC tab 02/16/17 ergocalciferol (vitamin D2) 1 tab-cap PO M-W-F #12 tab-cap 10/04/17 [Vitamin D2] epinephrine [EpiPen 2-Erick] 0.3 mg IM ONCE #2 dose 12/11/17 omeprazole 20 mg PO DAILY #90 tab-cap 02/22/18 folic acid 1 mg tablet 1 mg PO DAILY #90 tab 05/21/18 atorvastatin 40 mg tablet 40 mg PO DAILY #90 tab-cap 06/14/18 duloxetine 60 mg capsule,delayed 60 mg PO DAILY #90 tab-cap 06/14/18 release allopurinol 100 mg tablet 100 mg PO DAILY #90 tab-cap 08/09/18 furosemide 40 mg tablet 40 mg PO DAILY PRN #90 tab 08/09/18 gabapentin 600 mg tablet 600 mg PO TID #270 tab-cap 08/09/18 glipizide ER 10 mg tablet, 10 mg PO DAILY #90 tab-cap 08/09/18 extended release 24 hr ropinirole 2 mg tablet 2 mg PO QPM #90 tab 08/09/18 lisinopril 10 mg tablet 10 mg PO DAILY #90 tab-cap 08/23/18 nystatin 100,000 unit/gram topical 1 applic TOPICAL BID PRN #30 gm 12/04/18 cream fluconazole 150 mg tablet 150 mg PO Q24H #4 tab 12/11/18 fluticasone 250 mcg-salmeterol 50 1 inh INHALATION BID PRN #3 each 12/11/18 mcg/dose blistr powdr for inhalation meclizine 12.5 mg tablet 25 mg PO TID PRN #60 tab 12/17/18 blood sugar diagnostic strips #100 each 12/18/18 lancets 33 gauge #100 each 12/18/18 liraglutide 0.6 mg/0.1 mL (18 mg/3 0.6 mg SC DAILY #6 ml 12/18/18 mL) subcutaneous pen injector pen needle, diabetic 31 gauge x #30 each 12/18/1809/14 rivaroxaban 15 mg tablet 15 mg PO DAILY #90 tab-cap 12/18/18 Allergies Allergy/AdvReac Type Severity Reaction Status Date / Time venom-honey bee Allergy Severe ANAPHYLAXIS Verified 12/30/18 14:21 adhesive Allergy BLISTERS Verified 12/30/18 14:21 General Stated Complaint: Nausea/Vomit/Diar STEPHANIE: 4 Review of Systems Constitutional Reports chills, Reports excessive sweating, Reports fatigue, Denies fever(s), Denies increased appetite, Reports lethargy, Reports night sweats and Denies weakness Eyes Denies blurry vision and Denies photophobia ENT Denies dizziness, Denies hoarseness, Denies nasal congestion, Denies nasal discharge, Denies neck pain, Denies sinus pain, Denies sinus pressure, Denies sore throat and Denies throat swelling Cardiovascular Denies chest pain, Denies diaphoresis, Denies syncope, Denies rapid heart rate, Denies pedal edema, Denies edema, Denies irregular heart rhythm, Denies leg edema, Denies lightheadedness, Reports dyspnea and Reports dyspnea on exertion Respiratory Reports cough, Reports dyspnea, Reports dyspnea on exertion and Reports wheezing Gastrointestinal Denies abdominal pain, Denies diarrhea, Reports nausea and Denies vomiting Genitourinary Denies dysuria, Denies urinary incontinence and Denies urinary hesitancy Musculoskeletal Denies back pain, Denies myalgias, Denies deformity, Denies arthralgias and Denies neck pain Neurologic Denies confusion, Denies dizziness, Denies syncope and Denies weakness Psychiatric Denies anxiety, Denies confusion and Denies depression Endocrine Reports excessive sweating and Reports fatigue Allergic/Immunologic Denies throat swelling and Reports wheezing [facility] History Hyperlipidemia (Chronic 08/10/00) Gout (Chronic 07/06/11) Spinal stenosis of lumbar region (Chronic 02/15/16) Restless legs (Chronic) Paroxysmal atrial fibrillation (Chronic 03/01/16) 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) Chronic obstructive lung disease (Chronic) Atrial fibrillation (Chronic) Restless leg syndrome (Chronic) Essential hypertension (Chronic) Hyperlipidemia (Chronic) History of coronary artery disease (Chronic) Abnormal mammography (Resolved) Ankle pain (Resolved 03/13/14) Carpal tunnel syndrome (Resolved 08/10/06) Cervical disc disorder with myelopathy (Resolved 08/21/08) Chest pain (Resolved) Diabetes mellitus (Resolved) Folate deficiency (Resolved 02/15/16) Hepatomegaly (Resolved) Hip joint inflamed (Resolved 09/03/15) Low back pain (Resolved 04/10/03) Menopausal syndrome (Resolved) Muscle fatigue (Resolved) Posterior tibial tendon dysfunction (Resolved) Postmenopausal bleeding (Resolved) Postoperative wound dehiscence (Resolved 12/23/15) Primary osteoarthritis of left hip (Resolved 09/17/15) Renal impairment (Resolved 07/11/03) Rotator cuff syndrome (Resolved 08/01/09) Smoker (Resolved 06/30/16) Tarsal tunnel syndrome (Resolved) Trochanteric bursitis (Resolved) Upper respiratory tract infection (Resolved 08/03/15) Vitamin D deficiency (Resolved) Atrial fibrillation COPD (chronic obstructive pulmonary disease) Carpal tunnel syndrome Cervical spondylosis with myelopathy Diabetes mellitus Gout Hypertension Spinal stenosis of lumbar region at multiple levels Vitamin D deficiency Surgical History H/O Spinal surgery (Resolved) H/O arthrodesis (Resolved) History of bilateral tubal ligation (Resolved) History of gynecologic surgery (Resolved) History of hip surgery (Resolved) History of orthopedic surgery (Resolved) S/P carpal tunnel release (Resolved) S/P cholecystectomy (Resolved) S/P rotator cuff repair (Resolved) Status post incision and drainage (Resolved) Arthrodesis Cholecystectomy (07/31/13) Endometrial Biopsy Left eye surgery Ligation of fallopian tube (~1980) Open Carpal Tunnel release Right wrist surgery Rotator Cuff Repair (~1980) SPINE SURGERY Total replacement of hip cervical repair (~10/2008) tarsal tunnel release (~1997) Family History Mother Diabetes Essential hypertension Personal history of malignant neoplasm Heart disease Hyperlipidemia Stroke Asthma Father Diabetes Essential hypertension Personal history of malignant neoplasm Heart disease Asthma Sister Diabetes Essential hypertension Depression Heart disease Asthma Grandfather No problems noted. Grandfather No problems noted. Grandmother Personal history of malignant neoplasm Grandmother Diabetes Aunt Personal history of malignant neoplasm Brother Hyperlipidemia Stroke Sister Asthma Son Asthma Daughter Depression Asthma Daughter Asthma Daughter Depression Neoplasm Asthma Brother No problems noted. 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 Pets and animals: Yes Pets and animals: cat(s), dog(s) and horse(s) What type of physical activity do you participate in: none Saniya/Jewish: Voodoo Special saniya needs: No Do you feel safe at home: Yes Do you feel safe in your relationship?: Yes Exam Const General: cooperative and no acute distress HENMT Head: normal to inspection Ears: hearing grossly normal bilaterally General nose exam: external nose normal Face and sinus: normal facial exam Mouth: oral mucosae normal Teeth and gingiva: dentition normal Throat: posterior oropharynx normal Eyes General: appearance normal, both eyes and all related structures Neck Neck: normal visual inspection and full ROM Chest Chest: normal inspection of the chest Resp Effort & Inspection: able to speak in complete sentences Auscultation: rhonchi and wheezes expiratory wheezes and scattered wheezes Cardio Jugular venous pressure: no JVD Palpation: normal PMI Rate: regular rate Rhythm: regular rhythm Heart Sounds: S1 normal and S2 normal Pulses: normal peripheral pulses GI Inspection: normal to inspection Palpation: soft Back/Spine/Pelvis Back: no CVA tenderness Skin General skin exam: no rashes or lesions noted Neuro General: alert, awake and oriented x3 Extrem General: normal to inspection and no pedal edema Course Vital Signs Temperature 36.6 C 12/30/18 14:18 Pulse 107 H 12/30/18 14:18 Respiratory Rate 16 12/30/18 14:18 Blood Pressure 140/81 12/30/18 14:18 Pulse Oximetry 88 L 12/30/18 14:18 Temperature 36.6 C 12/30/18 14:18 Temperature Source Skin 12/30/18 14:18 Pulse 107 H 12/30/18 14:18 Respiratory Rate 16 12/30/18 14:18 Respiratory Effort 12/30/18 14:24 Blood Pressure 140/81 12/30/18 14:18 Blood Pressure Position Sitting 12/30/18 14:18 Pulse Oximetry 88 L 12/30/18 14:18 Oxygen Delivery Method Room Air 12/30/18 14:18 Oxygen Flow Rate 0 12/30/18 14:18 Pain Level 0 12/30/18 14:18 Comment 12/30/18 14:18 Sign Out Sign Out Data: Sign Out Comment: Follow-up CTA dispo pt Last updated by Aj Mcclendon PA at 12/30/18 16:34
[2018-12-30 14:52] LABS: BE (Venous) 3.7 mmol/L (-3-3); HCO3 (Venous) 29 mmol/L (22-28); HCT 43.3 % (36.0-46.0); HGB 13.9 g/dL (12.0-15.5); Mean Corp. HGB Concentration 32.1 g/dL (32.0-36.0); Mean Corpuscular Hemoglobin 31.8 pg (27.0-33.0); Mean Corpuscular Volume 99.1 fL (80-95); Mean Platelet Volume 10.1 fL (8.0-11.0); O2 Sat (Venous) 87 % (70-80); Platelet Count 212 x1000/uL (130-400); RBC 4.37 m/cumm (4.00-5.20); RBC Distribution Width 13.9 % (11.7-14.6); TCO2 (Venous) 26 mmol/L (22-29); White Blood Cell Count 9.36 k/cumm (4.4-10.8); pCO2 (Venous) 48 mm/Hg (34-47); pH (Venous) 7.39 (7.32-7.43); pO2 (Venous) 52 mm/Hg (28-44)
[2018-12-30] MEDS: Albuterol/Ipratropium 3 ML UPD VIAL UPD (15:10)
[2018-12-30] MEDS: Lactated Ringers 1,000 ML 1000 ML IV (15:11)
[2018-12-30] MEDS: methylPREDNISolone SUCC 125 MG VIAL IVP (15:12)
[2018-12-30 15:14] LABS: ALT 28 U/L (12-78); AST 22 U/L (15-37); Albumin 3.1 g/dL (3.4-5.0); Alkaline Phosphatase 79 U/L (46-116); Anion Gap 7.2 mmol/L (3-11); BUN 23 mg/dL (7-18); Bilirubin, Total 0.7 mg/dL (0.2-1.0); CO2 29.8 mmol/L (21.0-32.0); Calcium 8.5 mg/dL (8.5-10.1); Chloride 104 mmol/L (98-107); Estimated GFR 34.74 (mL/min/1.73m2); Glucose 174 mg/dL (70-100); Magnesium 1.8 mg/dL (1.8-2.4); Potassium 3.9 mmol/L (3.5-5.1); Sodium 141 mmol/L (136-145); Total Protein 7.1 g/dL (6.4-8.2)
[2018-12-30 15:18] LABS: Absolute Eosinophil Count 0.84 k/cumm (0.0-0.7); Absolute Lymphocyte Count 1.78 k/cumm (1.2-3.4); Absolute Monocyte Count 0.75 k/cumm (0.11-0.7); Absolute Neutrophil Count 5.99 k/cumm (1.2-6.7); Atypical Lymphocytes % 4
[2018-12-30 15:19] LABS: Diff Comment Manual Differential; RBC Morphology Normal
--- NOTE | 2018-12-30 15:24 | DI.CT_ITS ---
SYMPTOMS/DIAGNOSIS: COUGH, SOB, ELEVATED TROP, EVAL FOR PE CHEST CTA FOR PE: CT angiography was performed with multi slice acquisition and multi planar and 3D reconstruction. There is no evidence of pulmonary emboli or aortic dissection. There are minimal patchy densities in the right lower lobe and mild bronchial thickening which could represent pneumonitis. No focal area of consolidation, pleural or pericardial effusions are seen. Coronary artery, mitral and aortic valve calcifications are seen. There are stable bilateral adrenal adenomas. IMPRESSION: Mild bronchiectasis and mild patchy right lower lobe densities could represent mild pneumonitis.
[2018-12-30 15:59] LABS: NT-proBNP 847 pg/mL
[2018-12-30] MEDS: Omnipaque 350 MG/ML 100 ML BTL IJ (16:05)
--- NOTE | 2018-12-30 16:40 | DI.VRAD_ITS ---
EXAM: CT Angiography Chest With Contrast EXAM DATE/TIME: 12/30/2018 3:25 PM CLINICAL HISTORY: 68 years old, female; Signs and symptoms; Cough; Patient HX: Elevated troponin TECHNIQUE: Imaging protocol: Axial computed tomographic angiography images of the chest with intravenous contrast using CT angiography protocol. Coronal and sagittal reformatted images were created and reviewed. 3D rendering: MIP reconstructed images were created and reviewed. Radiation optimization: All CT scans at this facility use at least one of these dose optimization techniques: automated exposure control; mA and/or kV adjustment per patient size (includes targeted exams where dose is matched to clinical indication); or iterative reconstruction. Contrast material: OMNIPAQUE 350; Contrast volume: 100 ml; Contrast route: IV; COMPARISON: CT CHEST HIGH RESOLUTION 12/05/2018 1:03 PM FINDINGS: Tubes, catheters and devices: Internal fixation device in the cervical spine Pulmonary arteries: No evidence of pulmonary embolus to the segmental level. Aorta: No aneurysm of the aorta. No dissection of the aorta. Lungs: Bronchiectasis Mild opacities in the right lower lobe may represent atelectasis or pneumonia. Pleural space: Normal. No pneumothorax. No pleural effusion. Heart: Coronary artery calcifications may indicate coronary artery disease. There is calcification of the aortic valve annulus. There is calcification of the mitral valve annulus. Adrenals: Right adrenal adenoma 4.8 x 3.4 cm. Left adrenal adenoma 4.9 x 2.6 cm. Kidneys and ureters: Right renal cyst 3.5 cm Lymph nodes: Unremarkable. No enlarged lymph nodes. Bones/joints: Unremarkable. No acute fracture. Soft tissues: Unremarkable. IMPRESSION: 1. No evidence of pulmonary embolus to the segmental level. 2. No aneurysm of the aorta. 3. No dissection of the aorta. Dictated and Authenticated by: Mason Luciano MD. Ordering:DANELLE Rocha MD
[2018-12-30 18:10] LABS: PTT Activated 30.8 sec (21.0-31.4)
[2018-12-30] MEDS: Clopidogrel 300 MG TAB PO (18:59)
== END 2018-12-30 20:25 ==
PROVIDERS: Physician Assistant; Emergency Provider Student in an Organized Health Care Education/Training Program; PCP Family Medicine
DX: I21.4 Non-ST elevation (NSTEMI) myocardial infarction (principal); I12.9 Hypertensive chronic kidney disease with stage 1 through stage 4 chronic kidney disease, or unspecified chronic kidney disease; E11.22 Type 2 diabetes mellitus with diabetic chronic kidney disease; J44.9 Chronic obstructive pulmonary disease, unspecified; I48.0 Paroxysmal atrial fibrillation; Z79.01 Long term (current) use of anticoagulants; N18.9 Chronic kidney disease, unspecified; Z87.891 Personal history of nicotine dependence
CPT/HCPCS: 36415; 71275; 80053; 82805; 93005; 96361; 96374; 99291; 83735; 83880; 84484; 85025; 85730; 93010; J2930; J3490; J7620

== ENCOUNTER 2019-01-11 19:52 | Outpatient (REF) | payer BC, SELFPAY ==
[2019-01-11 19:51] LABS: Anion Gap 6.9 mmol/L (3-11); BUN 29 mg/dL (7-18); CO2 30.1 mmol/L (21.0-32.0); CREATININE 1.45 mg/dL (0.55-1.02); Calcium 8.7 mg/dL (8.5-10.1); Chloride 101 mmol/L (98-107); Estimated GFR 36.13 (mL/min/1.73m2); Glucose 121 mg/dL (70-100); Potassium 4.4 mmol/L (3.5-5.1); Sodium 138 mmol/L (136-145)
== END 2019-01-11 20:12 ==
LOC: LBN 19:52
PROVIDERS: PCP Family Medicine; Visit Provider Nurse Practitioner Adult Health
DX: E11.9 Type 2 diabetes mellitus without complications (principal); I48.91 Unspecified atrial fibrillation; I10 Essential (primary) hypertension; E78.5 Hyperlipidemia, unspecified
CPT/HCPCS: 80048

== ENCOUNTER 2019-01-13 12:37 | Outpatient (REF) | payer BC, SELFPAY ==
[2019-01-13 13:11] LABS: Abs Immature Grans 0.14 k/cumm (0.0-0.09); Absolute Eosinophil Count 0.71 k/cumm (0.0-0.7); Absolute Lymphocyte Count 1.85 k/cumm (1.2-3.4); Absolute Monocyte Count 1.38 k/cumm (0.11-0.7); Absolute Neutrophil Count 14.02 k/cumm (1.2-6.7); Basophils % 0.4; Eosinophils % 3.9; HCT 29.2 % (36.0-46.0); HGB 8.8 g/dL (12.0-15.5); Immature Grans % 0.8; Lymphocytes % 10.2; Mean Corp. HGB Concentration 30.1 g/dL (32.0-36.0); Mean Corpuscular Hemoglobin 31.9 pg (27.0-33.0); Mean Corpuscular Volume 105.8 fL (80-95); Mean Platelet Volume 9.5 fL (8.0-11.0); Monocytes % 7.6; Neutrophils % 77.1; Platelet Count 505 x1000/uL (130-400); RBC 2.76 m/cumm (4.00-5.20); RBC Distribution Width 15.3 % (11.7-14.6); White Blood Cell Count 18.18 k/cumm (4.4-10.8)
[2019-01-13 13:20] LABS: Absolute Basophil Count 0.07 k/cumm (0.0-0.2)
[2019-01-13 14:17] LABS: Anisocytosis 2+; Diff Comment RBC Morph Reviewed; Hypochromasia 2+; Polychromasia Present
[2019-01-13 14:19] LABS: Poikilocytes 2+
== END 2019-01-13 12:57 ==
LOC: LBN 12:37
PROVIDERS: PCP Family Medicine; Visit Provider Family Medicine
DX: I10 Essential (primary) hypertension (principal); E11.9 Type 2 diabetes mellitus without complications; I25.10 Atherosclerotic heart disease of native coronary artery without angina pectoris
CPT/HCPCS: 85025

== ENCOUNTER 2019-01-15 09:29 | Outpatient (REF) | payer BC, SELFPAY ==
[2019-01-15 13:56] LABS: Bilirubin Negative (Negative); Blood Negative (Negative); Clarity Sl Cloudy; Glucose Negative (Negative); Ketones Negative (Negative); Leukocyte Esterase Negative (Negative); Nitrite Negative (Negative); Specific Gravity 1.025 (1.005-1.025); Urobilinogen 0.2 EU/dL (Up TO 0.2)
== END 2019-01-15 09:49 ==
LOC: LBN 09:29
PROVIDERS: PCP Family Medicine; Visit Provider Nurse Practitioner Adult Health
DX: D72.89 Other specified disorders of white blood cells (principal)
CPT/HCPCS: 81003

== ENCOUNTER 2019-01-15 10:16 | Inpatient (IN) | payer BC, MEDICARE, SELFPAY ==
[2019-01-15] VITALS (65 sets, daily range): BP systolic 91–144; BP diastolic 47–78; PULSE 80–124; RESP 4–40; TEMP 36.6–36.8; O2SAT 82–99
--- NOTE | 2019-01-15 10:21 | ED.GENADUL_ITS ---
Discharge Plan Disposition Patient Disposition: [facility] INPATIENT Condition: Stable Discharge Details Chief Complaint: SOB Clinical Impression: HCAP (healthcare-associated pneumonia), Acute exacerbation of chronic obstructive pulmonary disease (COPD) Admit Date/Time: 01/15/19 15:06 Admit Provider: Elvira Mims Attending Provider: Elvira Mims Primary Care Provider: Laisha Mcmahon ED Provider: Ludivina Oconnor Medical Decision Making 68-year-old female with history of diabetes, hypertension, hyperlipidemia, atrial fibrillation, COPD, CAD, and STEMI status post triple bypass at [facility] last month presents with shortness of breath for the past 2 weeks, worse today now with cough usually productive of yellow sputum. Denies any chest pain, or vomiting. Oxygen 88% on 2 L at rehab, improved to mid 90s on 4 L per EMS. Patient able to speak in full sentences. Oxygen saturation 98% on 4 L. Remainder vitals within normal limits. Afebrile. Patient appears nontoxic. She has diminished breath sounds throughout with scattered wheezing. EKG notes a rate of 95 and sinus and no acute ST findings. There is T wave inversion in 2, aVF, V4 V5 V6 which appears new compared to previous. Differential diagnosis includes COPD exacerbation, acute CHF, pneumonia, GA, arrhythmia, electrolyte abnormality. Will place an IV, DuoNeb, Solu-Medrol, and refer for screening labs and chest x-ray and reassess. Labs and imaging reviewed. White blood cell count 14. Hemoglobin 8.4, was 8.8. Troponin 0.04. BNP 3219. Chest x-ray notes a left lower lobe pneumonia vs effusion. Patient was given Vanco and Zosyn to cover for likely hospital-acquired pneumonia. Patient states she feels better at this time and feels that she can go back to health and rehab. Plan was discussed with health and rehab and they are unable to give IV antibiotics more than every 24 hours. Patient initially felt fine for discharge back to rehab, but after reassessment after second neb, still complaining of some shortness of breath and will admit for further observation, nebs, steroids and IV antibiotics. 1440 --discussed with hospitalist -accepts patient for admission. Medical Records Medical records reviewed: Yes I reviewed the patient's medical records. Imaging Data Radiologic Study: Radiologist's impression: PORTABLE AP CHEST: Comparison is made with 11/21/18. The heart size and pulmonary vasculature are stable. The patient appears to be status post CABG. The right lung is clear. There is an infiltrate seen in the left lung base. There is blunting of the left costophrenic angle. This may represent a small effusion. No pneumothorax is identified. The bones appear intact. IMPRESSION: Left basilar small infiltrate and/or effusion. Lab Data Lab results reviewed: Yes I reviewed the patient's lab results. 01/15/19 16:40 Blood Blood Culture - Pending 01/15/19 15:59 Nose MRSA Screen - Pending 01/15/19 16:00 Blood Blood Culture - Pending Laboratory Tests Range/Units 01/15/19 01/15/19 01/15/19 10:30 10:30 10:30 WBC (4.4-10.8) k/cumm 14.57 H RBC (4.00-5.20) m/cumm 2.66 L Hgb (12.0-15.5) g/dL 8.4 L Hct (36.0-46.0) % 28.0 L MCV (80-95) fL 105.3 H MCH (27.0-33.0) pg 31.6 MCHC (32.0-36.0) g/dL 30.0 L RDW (11.7-14.6) % 15.6 H Plt Count (130-400) x1000/uL 554 H MPV (8.0-11.0) fL 9.0 Immature Gran % 0.4 Neutrophils % 78.8 Lymphocytes % 9.3 Monocytes % 7.1 Eosinophils % 4.0 Basophils % 0.4 Absolute Neutrophils (1.2-6.7) k/cumm 11.48 H Absolute Lymphocytes (1.2-3.4) k/cumm 1.36 Absolute Monocytes (0.11-0.7) k/cumm 1.03 H Absolute Eosinophils (0.0-0.7) k/cumm 0.58 Absolute Basophils (0.0-0.2) k/cumm 0.06 Sodium (136-145) mmol/L 142 Potassium (3.5-5.1) mmol/L 4.3 Chloride (98-107) mmol/L 102 Carbon Dioxide (21.0-32.0) mmol/L 33.6 H Anion Gap (3-11) mmol/L 6.4 BUN (7-18) mg/dL 22 H Creatinine (0.55-1.02) mg/dL 1.39 H Estimated GFR/1.73 m2 (mL/min/1.73m2) 37.93 Glucose (70-100) mg/dL 190 H Calcium (8.5-10.1) mg/dL 8.4 L Magnesium (1.8-2.4) mg/dL 2.1 Total Bilirubin (0.2-1.0) mg/dL 0.6 AST (15-37) U/L 24 ALT (12-78) U/L 48 Alkaline Phosphatase (46-116) U/L 84 Troponin I (0.00-0.06) ng/mL 0.04 NT-Pro-B Natriuret Pep ( - 299) pg/mL 3219 H Total Protein (6.4-8.2) g/dL 6.3 L Albumin (3.4-5.0) g/dL 2.3 L Range/Units 01/15/19 16:40 WBC (4.4-10.8) k/cumm RBC (4.00-5.20) m/cumm Hgb (12.0-15.5) g/dL Hct (36.0-46.0) % MCV (80-95) fL MCH (27.0-33.0) pg MCHC (32.0-36.0) g/dL RDW (11.7-14.6) % Plt Count (130-400) x1000/uL MPV (8.0-11.0) fL Immature Gran % Neutrophils % Lymphocytes % Monocytes % Eosinophils % Basophils % Absolute Neutrophils (1.2-6.7) k/cumm Absolute Lymphocytes (1.2-3.4) k/cumm Absolute Monocytes (0.11-0.7) k/cumm Absolute Eosinophils (0.0-0.7) k/cumm Absolute Basophils (0.0-0.2) k/cumm Sodium (136-145) mmol/L Potassium (3.5-5.1) mmol/L Chloride (98-107) mmol/L Carbon Dioxide (21.0-32.0) mmol/L Anion Gap (3-11) mmol/L BUN (7-18) mg/dL Creatinine (0.55-1.02) mg/dL Estimated GFR/1.73 m2 (mL/min/1.73m2) Glucose (70-100) mg/dL Calcium (8.5-10.1) mg/dL Magnesium (1.8-2.4) mg/dL Total Bilirubin (0.2-1.0) mg/dL AST (15-37) U/L ALT (12-78) U/L Alkaline Phosphatase (46-116) U/L Troponin I (0.00-0.06) ng/mL 0.02 NT-Pro-B Natriuret Pep ( - 299) pg/mL Total Protein (6.4-8.2) g/dL Albumin (3.4-5.0) g/dL ECG Data Attestation: I personally reviewed and interpreted this ECG (s) as follows: Interpretation: Rate of 95, sinus, T wave inversion in 1, 2, V4 through V6 which appears new compared to previous. No acute ST elevation or depression. QTc 412. QRS 90. HPI General Mode of arrival: EMS . Date/Time Provider Initiated Documentation: 01/15/19 10:25 . Limitations to Documentation: no limitations . Information obtained by: patient . HPI Narrative: Patient is a 68-year-old fem fabby with history of paroxysmal atrial fibrillation, diabetes, hyperlipidemia, hypertension, COPD, CAD, NSTEMI, status post triple bypass at [facility] last month who presents with shortness of breath for the past 2 weeks, worse today. Also admits to cough that is occasionally productive of yellow sputum. She denies any known fever and states she has been eating and drinking normally without any vomiting. She denies any chest pain. Patient was sent from the rehab where she has been for the past 10 days after her CABG at [facility] last month. EMS stated that upon their arrival her oxygen saturation was 88% on 2 L, and this increased to the mid 90s on 4 L. Related Data Home Medications Medication Instructions Recorded Confirmed Test Strips 1 strip INTRADERMAL DAILY strip 11/27/12 12/30/18 lancets [FreeStyle Lancets] ea 11/27/12 12/30/18 cyanocobalamin (vitamin B-12) 1,000 mcg PO DAILY #100 tab 02/16/17 01/15/19 [Vitamin B-12] ergocalciferol (vitamin D2) 1 tab-cap PO M-W-F #12 tab-cap 10/04/17 01/15/19 [Vitamin D2] epinephrine [EpiPen 2-Erick] 0.3 mg IM ONCE #2 dose 12/11/17 01/15/19 folic acid 1 mg tablet 1 mg PO DAILY #90 tab 05/21/18 01/15/19 metoprolol succinate ER 25 mg 25 mg PO DAILY 06/13/18 01/15/19 tablet,extended release 24 hr atorvastatin 40 mg tablet 40 mg PO DAILY #90 tab-cap 06/14/18 01/15/19 duloxetine 60 mg capsule,delayed 60 mg PO DAILY #90 tab-cap 06/14/18 01/15/19 release allopurinol 100 mg tablet 100 mg PO DAILY #90 tab-cap 08/09/18 01/15/19 gabapentin 600 mg tablet 600 mg PO TID #270 tab-cap 08/09/18 01/15/19 glipizide ER 10 mg tablet, 10 mg PO DAILY #90 tab-cap 08/09/18 01/15/19 extended release 24 hr nystatin 100,000 unit/gram topical 1 applic TOPICAL BID PRN #30 gm 12/04/18 01/15/19 cream fluticasone 250 mcg-salmeterol 50 1 inh INHALATION BID PRN #3 each 12/11/18 01/15/19 mcg/dose blistr powdr for inhalation meclizine 12.5 mg tablet 25 mg PO TID PRN #60 tab 12/17/18 01/15/19 blood sugar diagnostic strips #100 each 12/18/18 12/30/18 lancets 33 gauge #100 each 12/18/18 12/30/18 liraglutide 0.6 mg/0.1 mL (18 mg/3 0.6 mg SC DAILY #6 ml 12/18/18 01/15/19 mL) subcutaneous pen injector pen needle, diabetic 31 gauge x #30 each 12/18/18 12/30/18 1/4 acetaminophen [Tylenol Extra 1,000 mg PO Q6H PRN 01/15/19 01/15/19 Strength] albuterol sulfate 2.5 mg INHALATION QID PRN 01/15/19 01/15/19 aspirin [Aspir-81] 81 mg PO DAILY 01/15/19 01/15/19 bisacodyl 10 mg OR DAILY 01/15/19 01/15/19 dextrose [Glucose Gel] See Rx Instructions .ROUTE .COMPLEX 01/15/19 01/15/19 glucagon (human recombinant) See Rx Instructions .ROUTE 01/15/19 01/15/19 [Glucagon Emergency Kit (human)] .COMPLEX PRN magnesium hydroxide [Milk of 30 ml PO PRN PRN 01/15/19 01/15/19 Magnesia] oxycodone 5 mg PO PRN PRN 01/15/19 01/15/19 oxycodone 10 mg PO DAILY PRN 01/15/19 01/15/19 polyethylene glycol 3350 [Miralax] 1 g PO PRN PRN 01/15/19 01/15/19 ropinirole [Requip] 2 mg PO QPM PRN 01/15/19 01/15/19 Previous Rx's Medication Instructions Recorded cyanocobalamin (vitamin B-12) 1,000 mcg PO DAILY #100 tab 02/16/17 [Vitamin B-12] ergocalciferol (vitamin D2) 1 tab-cap PO M-W-F #12 tab-cap 10/04/17 [Vitamin D2] epinephrine [EpiPen 2-Erick] 0.3 mg IM ONCE #2 dose 12/11/17 folic acid 1 mg tablet 1 mg PO DAILY #90 tab 05/21/18 atorvastatin 40 mg tablet 40 mg PO DAILY #90 tab-cap 06/14/18 duloxetine 60 mg capsule,delayed 60 mg PO DAILY #90 tab-cap 06/14/18 release allopurinol 100 mg tablet 100 mg PO DAILY #90 tab-cap 08/09/18 gabapentin 600 mg tablet 600 mg PO TID #270 tab-cap 08/09/18 glipizide ER 10 mg tablet, 10 mg PO DAILY #90 tab-cap 08/09/18 extended release 24 hr nystatin 100,000 unit/gram topical 1 applic TOPICAL BID PRN #30 gm 12/04/18 cream fluticasone 250 mcg-salmeterol 50 1 inh INHALATION BID PRN #3 each 12/11/18 mcg/dose blistr powdr for inhalation meclizine 12.5 mg tablet 25 mg PO TID PRN #60 tab 12/17/18 blood sugar diagnostic strips #100 each 12/18/18 lancets 33 gauge #100 each 12/18/18 liraglutide 0.6 mg/0.1 mL (18 mg/3 0.6 mg SC DAILY #6 ml 12/18/18 mL) subcutaneous pen injector pen needle, diabetic 31 gauge x #30 each 12/18/18 1/4 Allergies Allergy/AdvReac Type Severity Reaction Status Date / Time venom-honey bee Allergy Severe ANAPHYLAXIS Verified 01/15/19 16:23 adhesive Allergy BLISTERS Verified 01/15/19 16:23 General STEPHANIE: 4 Review of Systems Review of Systems All systems reviewed & are unremarkable except as noted in HPI and below Constitutional Reports as per HPI, Denies chills and Denies fever(s) Eyes Denies blurry vision ENT Denies dizziness, Denies sore throat and Denies throat swelling Cardiovascular Denies chest pain and Reports dyspnea Respiratory Reports cough and Reports dyspnea Gastrointestinal Denies abdominal pain, Denies diarrhea and Denies vomiting Genitourinary Denies hematuria and Denies dysuria Musculoskeletal Denies back pain and Denies numbness Integumentary/Breasts Denies lesions and Denies rash Neurologic Denies dizziness, Denies focal weakness and Denies numbness Allergic/Immunologic Denies throat swelling [facility] Medical History Hyperlipidemia (Chronic 08/10/00) Gout (Chronic 07/06/11) Spinal stenosis of lumbar region (Chronic 02/15/16) Restless legs (Chronic) Paroxysmal atrial fibrillation (Chronic 03/01/16) 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) Chronic obstructive lung disease (Chronic) Atrial fibrillation (Chronic) Restless leg syndrome (Chronic) Essential hypertension (Chronic) Hyperlipidemia (Chronic) History of coronary artery disease (Chronic) Abnormal mammography (Resolved) Ankle pain (Resolved 03/13/14) Carpal tunnel syndrome (Resolved 08/10/06) Cervical disc disorder with myelopathy (Resolved 08/21/08) Chest pain (Resolved) Diabetes mellitus (Resolved) Folate deficiency (Resolved 02/15/16) Hepatomegaly (Resolved) Hip joint inflamed (Resolved 09/03/15) Low back pain (Resolved 04/10/03) Menopausal syndrome (Resolved) Muscle fatigue (Resolved) Posterior tibial tendon dysfunction (Resolved) Postmenopausal bleeding (Resolved) Postoperative wound dehiscence (Resolved 12/23/15) Primary osteoarthritis of left hip (Resolved 09/17/15) Renal impairment (Resolved 07/11/03) Rotator cuff syndrome (Resolved 08/01/09) Smoker (Resolved 06/30/16) Tarsal tunnel syndrome (Resolved) Trochanteric bursitis (Resolved) Upper respiratory tract infection (Resolved 08/03/15) Vitamin D deficiency (Resolved) Atrial fibrillation COPD (chronic obstructive pulmonary disease) Carpal tunnel syndrome Cervical spondylosis with myelopathy Diabetes mellitus Gout Hypertension Spinal stenosis of lumbar region at multiple levels Vitamin D deficiency Surgical History S/P CABG (coronary artery bypass graft) (Acute ~01/15/19) H/O Spinal surgery (Resolved) H/O arthrodesis (Resolved) History of bilateral tubal ligation (Resolved) History of gynecologic surgery (Resolved) History of hip surgery (Resolved) History of orthopedic surgery (Resolved) S/P carpal tunnel release (Resolved) S/P cholecystectomy (Resolved) S/P rotator cuff repair (Resolved) Status post incision and drainage (Resolved) Arthrodesis Cholecystectomy (07/31/13) Endometrial Biopsy Left eye surgery Ligation of fallopian tube (~1980) Open Carpal Tunnel release Right wrist surgery Rotator Cuff Repair (~1980) SPINE SURGERY Total replacement of hip cervical repair (~10/2008) tarsal tunnel release (~1997) Family History Mother Diabetes Essential hypertension Personal history of malignant neoplasm Heart disease Hyperlipidemia Stroke Asthma Father Diabetes Essential hypertension Personal history of malignant neoplasm Heart disease Asthma Sister Diabetes Essential hypertension Depression Heart disease Asthma Grandfather No problems noted. Grandfather No problems noted. Grandmother Personal history of malignant neoplasm Grandmother Diabetes Aunt Personal history of malignant neoplasm Brother Hyperlipidemia Stroke Sister Asthma Son Asthma Daughter Depression Asthma Daughter Asthma Daughter Depression Neoplasm Asthma Brother No problems noted. Social History Smoking/Tobacco Use Status: Current every day Tobacco Type: cigarettes Alcohol Intake: current Alcohol Intake frequency: a few times a week Drug use: Never Substance use type: does not use Household members: other Details: 2 current occupation: [employer] Pets and animals: Yes Pets and animals: cat(s), dog(s) and horse(s) What type of physical activity do you participate in: none Saniya/Pentecostalism: Holiness Special saniya needs: No Do you feel safe at home: Yes Do you feel safe in your relationship?: Yes Exam Const General: cooperative, healthy appearing and no acute distress HENMT Head: normal to inspection Face and sinus: normal facial exam Eyes General: appearance normal, both eyes and all related structures EOM: EOM intact bilaterally Neck Neck: normal visual inspection and No submandibular swelling Lymphatic: no lymphadenopathy noted Chest Chest: normal inspection of the chest, no tenderness and other (Healing midline vertical scar status post CABG) Resp Effort & Inspection: normal respiratory effort and able to speak in complete sentences Auscultation: diminished lung sounds bilaterally throughout and wheezes scattered wheezes Cardio Rate: regular rate Rhythm: regular rhythm GI Inspection: normal to inspection Palpation: soft, not firm, not rigid and nontender Auscultation: normal bowel sounds Skin General skin exam: no rashes or lesions noted Neuro General: alert, awake and oriented x3 Cognition: normal cognition Speech: speech normal Motor: muscle tone normal throughout Sensory Exam: no sensory deficits noted Extrem General: normal to inspection, full ROM and no edema Psych Appearance: grossly normal Mental Status: mental status grossly normal Speech and Movement: speech and movement normal Affect: normal affect
[2019-01-15 10:35] LABS: Abs Immature Grans 0.06 k/cumm (0.0-0.09); Absolute Basophil Count 0.06 k/cumm (0.0-0.2); Absolute Eosinophil Count 0.58 k/cumm (0.0-0.7); Absolute Monocyte Count 1.03 k/cumm (0.11-0.7); Basophils % 0.4; HGB 8.4 g/dL (12.0-15.5); Immature Grans % 0.4; Lymphocytes % 9.3; Mean Corpuscular Hemoglobin 31.6 pg (27.0-33.0); Mean Corpuscular Volume 105.3 fL (80-95); Monocytes % 7.1; Neutrophils % 78.8; Platelet Count 554 x1000/uL (130-400); RBC 2.66 m/cumm (4.00-5.20); RBC Distribution Width 15.6 % (11.7-14.6); White Blood Cell Count 14.57 k/cumm (4.4-10.8)
--- NOTE | 2019-01-15 10:35 | DI.RAD_ITS ---
SYMPTOM/DIAGNOSIS: SOB PORTABLE AP CHEST: Comparison is made with 11/21/18. The heart size and pulmonary vasculature are stable. The patient appears to be status post CABG. The right lung is clear. There is an infiltrate seen in the left lung base. There is blunting of the left costophrenic angle. This may represent a small effusion. No pneumothorax is identified. The bones appear intact. IMPRESSION: Left basilar small infiltrate and/or effusion.
[2019-01-15 10:36] LABS: Absolute Lymphocyte Count 1.36 k/cumm (1.2-3.4); Absolute Neutrophil Count 11.48 k/cumm (1.2-6.7)
[2019-01-15] MEDS: Albuterol/Ipratropium 3 ML UPD VIAL UPD (10:37)
[2019-01-15] MEDS: methylPREDNISolone SUCC 125 MG VIAL IVP (10:37)
[2019-01-15 10:50] LABS: ALT 48 U/L (12-78); AST 24 U/L (15-37); Albumin 2.3 g/dL (3.4-5.0); Alkaline Phosphatase 84 U/L (46-116); Anion Gap 6.4 mmol/L (3-11); BUN 22 mg/dL (7-18); Bilirubin, Total 0.6 mg/dL (0.2-1.0); CO2 33.6 mmol/L (21.0-32.0); CREATININE 1.39 mg/dL (0.55-1.02); Calcium 8.4 mg/dL (8.5-10.1); Chloride 102 mmol/L (98-107); Estimated GFR 37.93 (mL/min/1.73m2); Glucose 190 mg/dL (70-100); Magnesium 2.1 mg/dL (1.8-2.4); Potassium 4.3 mmol/L (3.5-5.1); Sodium 142 mmol/L (136-145); Total Protein 6.3 g/dL (6.4-8.2); Troponin I 0.04 ng/mL (0.00-0.06)
[2019-01-15 11:13] LABS: NT-proBNP 3219 pg/mL
[2019-01-15] MEDS: PIPERACILLIN/TAZO 3.375 GM in Normal Saline 50 ML IVPB ×2 (11:55→18:21)
[2019-01-15] MEDS: Albuterol 2.5 MG/3 ML INH SOLN VIAL 5 MG UPD (12:59)
--- NOTE | 2019-01-15 14:56 | NUR.NOTE ---
Nursing Note:Patient requested a nurses presence for a complaint of burning in her chest. Patient stated it didn't feel heart related but that it was burning due to coughing. She has had stress on her chest incision. Patient denied the need for a nebulizer and or pain mediation but that she just needed reassurance.
[2019-01-15] MEDS: Normal Saline Flush 10 ML SYR IVP ×2 (16:57→18:21)
[2019-01-15] MEDS: Furosemide 40 MG/4 ML VIAL IVP (16:57)
--- NOTE | 2019-01-15 16:58 | W.PM.HP.N ---
Date of service: 01/15/19 Time of Service: 16:59 Assessment and Plan (1) HAP (hospital-acquired pneumonia): Current visit: Yes Status: Acute Recent hospitalization at [facility] for CABG on 01/03/19, with subsequent transfer to [facility] and rehab. She now presents with hypoxia, shortness of breath, productive cough with leukocyosis and infiltrate noted on chest x-ray. Continue IV vanco and pip/tazo as started in the ED due to concern for hospital-acquired pneumonia. Continue IV steroids, scheduled nebulizer treatments with supplemental oxygen. (2) S/P CABG (coronary artery bypass graft): Current visit: Yes Status: Acute CABG x3 vessel at [facility] on 01/03/19 s/p NSTEMI. TTE prior to CABG reveals LVEF of 61%, no echo s/p surgery. Appears to be a component of fluid overload. Repeat Echocardiogram. Give IV lasix. Continue oxycodone for postop pain. Monitor on telemetry. (3) Diabetes mellitus: Current visit: No Status: Chronic Hgb A1c 7.6 today. Follow Blood glucose at &[facility] with sliding scale insulin. Continue Victoza. Hold oral diabetic agent. Place on ADA diet. (4) Paroxysmal atrial fibrillation: Current visit: No Status: Chronic PINEDA removed during CABG, no longer on Xarelto. Continue Metoprolol. Monitor on telemetry. (5) Essential hypertension: Current visit: No Status: Chronic Blood pressure stable. Continue metoprolol. Continue to monitor blood pressure. (6) Chronic obstructive lung disease: Current visit: No Status: Chronic Treat as above. (7) CKD (chronic kidney disease) stage 3, GFR 30-59 ml/min: Current visit: Yes Status: Acute Creatinine below baseline on admission. Monitor renal function in the setting of diuresis and IV antibiotic treatment. (8) DVT prophylaxis: Current visit: Yes Status: Acute subcutaneous heparin. (9) Discharge planning issues: Current visit: Yes Status: Acute She is a full code. She will return to [facility] and rehab when she is ready for discharge. This case was discussed with Dr. Mims who is in agreement. History of Present Illness Chief Complaint: Shortness of breath, cough, wheezing. Narrative: Ann-Marie Griggs is a very pleasant 68 year old female with a past medical history significant for hypertension, hyperlipidemia, diabetes mellitus type 2, obesity, COPD, depression, gout, paroxysmal atrial fibrillation (anticoagulated with Xarelto), chronic back pain,'s restless leg syndrome, spinal stenosis, chronic kidney disease and coronary artery disease, with recent NSTEMI with subsequent transfer from [facility] emergency department to [facility] where she underwent a CABG x3 vessels (01/03/19). From [facility] she was transferred to [facility] on 01/09/19. Today, she presents with reports of 4-5 day history of worsening shortness of breath, wheezing, crackling, and cough productive of thick yellow sputum. In the ED, she was found to be hypoxic with oxygen saturation of 88% on 2 liters. She required 4 liters of oxygen to maintain saturations in the 90s. Her labs revealed leukocytosis with a white blood cell count 14.57, hemoglobin 8.4, hematocrit 28, platelet count of 554, BNP 3219, her BUN was 22 with a creatinine of 1.39 (better than baseline). Chest x-ray shows left basilar small infiltrate and/or effusion. She was started on IV Vanco and Zosyn to cover for hospital-acquired pneumonia, nebulizer treatments and IV steroids. She is admitted to the [facility] floor for further evaluation and management. Upon presenting to the [facility] floor, she reports that she feels better than she did when she arrived at the ED. She continues to feel mildly short of breath, she reports wheezing and crackling. She continues to have a cough productive of thick yellow sputum. She denies any chest pain or pressure, her sternal incision is occasionally sore but she reports it is healing well, she denies any drainage from the wound. She denies feeling any palpitations. She feels hungry, she reports she has been eating and drinking and tolerating her diet. She denies nausea, vomiting or diarrhea. She reports constipation, she has not had a bowel movement in 3 days- she took stool softener and miralax at the rehab today. She reports bilateral lower extremity edema, she states the edema has improved drastically since her surgery. Review of Systems Review of Systems All systems reviewed & are unremarkable except as noted in HPI and below [facility] Medical History Hyperlipidemia (Chronic 08/10/00) Gout (Chronic 07/06/11) Spinal stenosis of lumbar region (Chronic 02/15/16) Restless legs (Chronic) Paroxysmal atrial fibrillation (Chronic 03/01/16) 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) Chronic obstructive lung disease (Chronic) Atrial fibrillation (Chronic) Restless leg syndrome (Chronic) Essential hypertension (Chronic) Hyperlipidemia (Chronic) History of coronary artery disease (Chronic) Abnormal mammography (Resolved) Ankle pain (Resolved 03/13/14) Carpal tunnel syndrome (Resolved 08/10/06) Cervical disc disorder with myelopathy (Resolved 08/21/08) Chest pain (Resolved) Diabetes mellitus (Resolved) Folate deficiency (Resolved 02/15/16) Hepatomegaly (Resolved) Hip joint inflamed (Resolved 09/03/15) Low back pain (Resolved 04/10/03) Menopausal syndrome (Resolved) Muscle fatigue (Resolved) Posterior tibial tendon dysfunction (Resolved) Postmenopausal bleeding (Resolved) Postoperative wound dehiscence (Resolved 12/23/15) Primary osteoarthritis of left hip (Resolved 09/17/15) Renal impairment (Resolved 07/11/03) Rotator cuff syndrome (Resolved 08/01/09) Smoker (Resolved 06/30/16) Tarsal tunnel syndrome (Resolved) Trochanteric bursitis (Resolved) Upper respiratory tract infection (Resolved 08/03/15) Vitamin D deficiency (Resolved) Atrial fibrillation COPD (chronic obstructive pulmonary disease) Carpal tunnel syndrome Cervical spondylosis with myelopathy Diabetes mellitus Gout Hypertension Spinal stenosis of lumbar region at multiple levels Vitamin D deficiency Surgical History S/P CABG (coronary artery bypass graft) (Acute ~01/15/19) H/O Spinal surgery (Resolved) H/O arthrodesis (Resolved) History of bilateral tubal ligation (Resolved) History of gynecologic surgery (Resolved) History of hip surgery (Resolved) History of orthopedic surgery (Resolved) S/P carpal tunnel release (Resolved) S/P cholecystectomy (Resolved) S/P rotator cuff repair (Resolved) Status post incision and drainage (Resolved) Arthrodesis Cholecystectomy (07/31/13) Endometrial Biopsy Left eye surgery Ligation of fallopian tube (~1980) Open Carpal Tunnel release Right wrist surgery Rotator Cuff Repair (~1980) SPINE SURGERY Total replacement of hip cervical repair (~10/2008) tarsal tunnel release (~1997) Family History Mother Diabetes Essential hypertension Personal history of malignant neoplasm Heart disease Hyperlipidemia Stroke Asthma Father Diabetes Essential hypertension Personal history of malignant neoplasm Heart disease Asthma Sister Diabetes Essential hypertension Depression Heart disease Asthma Grandfather No problems noted. Grandfather No problems noted. Grandmother Personal history of malignant neoplasm Grandmother Diabetes Aunt Personal history of malignant neoplasm Brother Hyperlipidemia Stroke Sister Asthma Son Asthma Daughter Depression Asthma Daughter Asthma Daughter Depression Neoplasm Asthma Brother No problems noted. 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 Pets and animals: Yes Pets and animals: cat(s), dog(s) and horse(s) What type of physical activity do you participate in: none Saniya/Yarsanism: Sabianist Special saniya needs: No Do you feel safe at home: Yes Do you feel safe in your relationship?: Yes Meds Home Medications Medication Instructions Recorded Confirmed Type Test Strips 1 strip INTRADERMAL DAILY strip 11/27/12 12/30/18 History lancets [FreeStyle Lancets] ea 11/27/12 12/30/18 History cyanocobalamin (vitamin B-12) 1,000 mcg PO DAILY #100 tab 02/16/17 01/15/19 Rx [Vitamin B-12] ergocalciferol (vitamin D2) 1 tab-cap PO M-W-F #12 tab-cap 10/04/17 01/15/19 Rx [Vitamin D2] epinephrine [EpiPen 2-Erick] 0.3 mg IM ONCE #2 dose 12/11/17 01/15/19 Rx folic acid 1 mg tablet 1 mg PO DAILY #90 tab 05/21/18 01/15/19 Rx metoprolol succinate ER 25 mg 25 mg PO DAILY 06/13/18 01/15/19 History tablet,extended release 24 hr atorvastatin 40 mg tablet 40 mg PO DAILY #90 tab-cap 06/14/18 01/15/19 Rx duloxetine 60 mg capsule,delayed 60 mg PO DAILY #90 tab-cap 06/14/18 01/15/19 Rx release allopurinol 100 mg tablet 100 mg PO DAILY #90 tab-cap 08/09/18 01/15/19 Rx gabapentin 600 mg tablet 600 mg PO TID #270 tab-cap 08/09/18 01/15/19 Rx glipizide ER 10 mg tablet, 10 mg PO DAILY #90 tab-cap 08/09/18 01/15/19 Rx extended release 24 hr nystatin 100,000 unit/gram topical 1 applic TOPICAL BID PRN #30 gm 12/04/18 01/15/19 Rx cream fluticasone 250 mcg-salmeterol 50 1 inh INHALATION BID PRN #3 each 12/11/18 01/15/19 Rx mcg/dose blistr powdr for inhalation meclizine 12.5 mg tablet 25 mg PO TID PRN #60 tab 12/17/18 01/15/19 Rx blood sugar diagnostic strips #100 each 12/18/18 12/30/18 Rx lancets 33 gauge #100 each 12/18/18 12/30/18 Rx liraglutide 0.6 mg/0.1 mL (18 mg/3 0.6 mg SC DAILY #6 ml 12/18/18 01/15/19 Rx mL) subcutaneous pen injector pen needle, diabetic 31 gauge x #30 each 12/18/18 12/30/18 Rx 1/4 acetaminophen [Tylenol Extra 1,000 mg PO Q6H PRN 01/15/19 01/15/19 History Strength] albuterol sulfate 2.5 mg INHALATION QID PRN 01/15/19 01/15/19 History aspirin [Aspir-81] 81 mg PO DAILY 01/15/19 01/15/19 History bisacodyl 10 mg NH DAILY 01/15/19 01/15/19 History dextrose [Glucose Gel] See Rx Instructions .ROUTE .COMPLEX 01/15/19 01/15/19 History glucagon (human recombinant) See Rx Instructions .ROUTE 01/15/19 01/15/19 History [Glucagon Emergency Kit (human)] .COMPLEX PRN magnesium hydroxide [Milk of 30 ml PO PRN PRN 01/15/19 01/15/19 History Magnesia] oxycodone 5 mg PO PRN PRN 01/15/19 01/15/19 History oxycodone 10 mg PO DAILY PRN 01/15/19 01/15/19 History polyethylene glycol 3350 [Miralax] 1 g PO PRN PRN 01/15/19 01/15/19 History ropinirole [Requip] 2 mg PO QPM PRN 01/15/19 01/15/19 History Allergies Allergy/AdvReac Type Severity Reaction Status Date / Time venom-honey bee Allergy Severe ANAPHYLAXIS Verified 01/15/19 16:23 adhesive Allergy BLISTERS Verified 01/15/19 16:23 Exam Narrative Exam Narrative: General: alert and oriented, pleasant and cooperative, lying in bed with head of bed elevated, in no acute distress. HEENT: normocephalic, atraumatic, EOMI, pupils equal and round, mucous membranes slightly dry. Neck: supple Cardiovascular: heart has regular rate and rhythm, no murmur appreciated. Chest: with midline sternal incision healing well, well approximated, no erythema, edema or active drainage. Respiratory: respirations even and unlabored, no shortness of breath while speaking in complete sentences, wet cough noted, lung sounds diminished with inspiratory and expiratory wheezes noted throughout. GI: abdomen soft, normoactive bowel sounds, nondistended, nontender on palpation. Extremities: LLE with 1+ pitting edema, RLE with 2+ pitting edema. Pedal pulses palpable bilaterally. Results Labs : 01/15/19 10:30 01/15/19 10:30 Laboratory Results - last 24 hr 01/15/19 01/15/19 01/15/19 10:30 10:30 10:30 WBC 14.57 H RBC 2.66 L Hgb 8.4 L Hct 28.0 L MCV 105.3 H MCH 31.6 MCHC 30.0 L RDW 15.6 H Plt Count 554 H MPV 9.0 Immature Gran % 0.4 Neutrophils % 78.8 Lymphocytes % 9.3 Monocytes % 7.1 Eosinophils % 4.0 Basophils % 0.4 Absolute Neutrophils 11.48 H Absolute Lymphocytes 1.36 Absolute Monocytes 1.03 H Absolute Eosinophils 0.58 Absolute Basophils 0.06 Sodium 142 Potassium 4.3 Chloride 102 Carbon Dioxide 33.6 H Anion Gap 6.4 BUN 22 H Creatinine 1.39 H Estimated GFR/1.73 m2 37.93 Glucose 190 H Calcium 8.4 L Magnesium 2.1 Total Bilirubin 0.6 AST 24 ALT 48 Alkaline Phosphatase 84 Troponin I 0.04 NT-Pro-B Natriuret Pep 3219 H Total Protein 6.3 L Albumin 2.3 L Last Vital Signs Temp 36.6 C 01/15/19 10:17 Pulse 94 H 01/15/19 16:12 Resp 24 01/15/19 16:08 BP 142/65 H 01/15/19 16:08 Pulse Ox 94 L 01/15/19 16:08
--- NOTE | 2019-01-15 17:01 | HPE_ITS ---
Date of service: 01/15/19 Time of Service: 16:59 Assessment and Plan (1) HAP (hospital-acquired pneumonia): Current visit: Yes Status: Acute Recent hospitalization at [facility] for CABG on 01/03/19, with subsequent transfer to [facility] and rehab. She now presents with hypoxia, shortness of breath, productive cough with leukocyosis and infiltrate noted on chest x-ray. Continue IV vanco and pip/tazo as started in the ED due to concern for hospital-acquired pneumonia. Continue IV steroids, scheduled nebulizer treatments with supplemental oxygen. (2) S/P CABG (coronary artery bypass graft): Current visit: Yes Status: Acute CABG x3 vessel at [facility] on 01/03/19 s/p NSTEMI. TTE prior to CABG reveals LVEF of 61%, no echo s/p surgery. Appears to be a component of fluid overload. Repeat Echocardiogram. Give IV lasix. Continue oxycodone for postop pain. Monitor on telemetry. (3) Diabetes mellitus: Current visit: No Status: Chronic Hgb A1c 7.6 today. Follow Blood glucose at &[facility] with sliding scale insulin. Continue Victoza. Hold oral diabetic agent. Place on ADA diet. (4) Paroxysmal atrial fibrillation: Current visit: No Status: Chronic PINEDA removed during CABG, no longer on Xarelto. Continue Metoprolol. Monitor on telemetry. (5) Essential hypertension: Current visit: No Status: Chronic Blood pressure stable. Continue metoprolol. Continue to monitor blood pressure. (6) Chronic obstructive lung disease: Current visit: No Status: Chronic Treat as above. (7) CKD (chronic kidney disease) stage 3, GFR 30-59 ml/min: Current visit: Yes Status: Acute Creatinine below baseline on admission. Monitor renal function in the setting of diuresis and IV antibiotic treatment. (8) DVT prophylaxis: Current visit: Yes Status: Acute subcutaneous heparin. (9) Discharge planning issues: Current visit: Yes Status: Acute She is a full code. She will return to [facility] and rehab when she is ready for discharge. This case was discussed with Dr. Mims who is in agreement. History of Present Illness Chief Complaint: Shortness of breath, cough, wheezing. Narrative: Ann-Marie rGiggs is a very pleasant 68 year old female with a past medical history significant for hypertension, hyperlipidemia, diabetes mellitus type 2, obesity, COPD, depression, gout, paroxysmal atrial fibrillation (anticoagulated with Xarelto), chronic back pain,'s restless leg syndrome, spinal stenosis, chronic kidney disease and coronary artery disease, with recent NSTEMI with subsequent transfer from [facility] emergency department to [facility] where she underwent a CABG x3 vessels (01/03/19). From [facility] she was transferred to [facility] on 01/09/19. Today, she presents with reports of 4-5 day history of worsening shortness of breath, wheezing, crackling, and cough productive of thick yellow sputum. In the ED, she was found to be hypoxic with oxygen saturation of 88% on 2 liters. She required 4 liters of oxygen to maintain saturations in the 90s. Her labs revealed leukocytosis with a white blood cell count 14.57, hemoglobin 8.4, hematocrit 28, platelet count of 554, BNP 3219, her BUN was 22 with a creatinine of 1.39 (better than baseline). Chest x-ray shows left basilar small infiltrate and/or effusion. She was started on IV Vanco and Zosyn to cover for hospital-acquired pneumonia, nebulizer treatments and IV steroids. She is admitted to the [facility] floor for further evaluation and management. Upon presenting to the [facility] floor, she reports that she feels better than she did when she arrived at the ED. She continues to feel mildly short of breath, she reports wheezing and crackling. She continues to have a cough productive of thick yellow sputum. She denies any chest pain or pressure, her sternal incision is occasionally sore but she reports it is healing well, she denies any drainage from the wound. She denies feeling any palpitations. She feels hungry, she reports she has been eating and drinking and tolerating her diet. She denies nausea, vomiting or diarrhea. She reports constipation, she has not had a bowel movement in 3 days- she took stool softener and miralax at the rehab today. She reports bilateral lower extremity edema, she states the edema has improved drastically since her surgery. Review of Systems Review of Systems All systems reviewed & are unremarkable except as noted in HPI and below [facility] Medical History Hyperlipidemia (Chronic 08/10/00) Gout (Chronic 07/06/11) Spinal stenosis of lumbar region (Chronic 02/15/16) Restless legs (Chronic) Paroxysmal atrial fibrillation (Chronic 03/01/16) 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) Chronic obstructive lung disease (Chronic) Atrial fibrillation (Chronic) Restless leg syndrome (Chronic) Essential hypertension (Chronic) Hyperlipidemia (Chronic) History of coronary artery disease (Chronic) Abnormal mammography (Resolved) Ankle pain (Resolved 03/13/14) Carpal tunnel syndrome (Resolved 08/10/06) Cervical disc disorder with myelopathy (Resolved 08/21/08) Chest pain (Resolved) Diabetes mellitus (Resolved) Folate deficiency (Resolved 02/15/16) Hepatomegaly (Resolved) Hip joint inflamed (Resolved 09/03/15) Low back pain (Resolved 04/10/03) Menopausal syndrome (Resolved) Muscle fatigue (Resolved) Posterior tibial tendon dysfunction (Resolved) Postmenopausal bleeding (Resolved) Postoperative wound dehiscence (Resolved 12/23/15) Primary osteoarthritis of left hip (Resolved 09/17/15) Renal impairment (Resolved 07/11/03) Rotator cuff syndrome (Resolved 08/01/09) Smoker (Resolved 06/30/16) Tarsal tunnel syndrome (Resolved) Trochanteric bursitis (Resolved) Upper respiratory tract infection (Resolved 08/03/15) Vitamin D deficiency (Resolved) Atrial fibrillation COPD (chronic obstructive pulmonary disease) Carpal tunnel syndrome Cervical spondylosis with myelopathy Diabetes mellitus Gout Hypertension Spinal stenosis of lumbar region at multiple levels Vitamin D deficiency Surgical History S/P CABG (coronary artery bypass graft) (Acute ~01/15/19) H/O Spinal surgery (Resolved) H/O arthrodesis (Resolved) History of bilateral tubal ligation (Resolved) History of gynecologic surgery (Resolved) History of hip surgery (Resolved) History of orthopedic surgery (Resolved) S/P carpal tunnel release (Resolved) S/P cholecystectomy (Resolved) S/P rotator cuff repair (Resolved) Status post incision and drainage (Resolved) Arthrodesis Cholecystectomy (07/31/13) Endometrial Biopsy Left eye surgery Ligation of fallopian tube (~1980) Open Carpal Tunnel release Right wrist surgery Rotator Cuff Repair (~1980) SPINE SURGERY Total replacement of hip cervical repair (~10/2008) tarsal tunnel release (~1997) Family History Mother Diabetes Essential hypertension Personal history of malignant neoplasm Heart disease Hyperlipidemia Stroke Asthma Father Diabetes Essential hypertension Personal history of malignant neoplasm Heart disease Asthma Sister Diabetes Essential hypertension Depression Heart disease Asthma Grandfather No problems noted. Grandfather No problems noted. Grandmother Personal history of malignant neoplasm Grandmother Diabetes Aunt Personal history of malignant neoplasm Brother Hyperlipidemia Stroke Sister Asthma Son Asthma Daughter Depression Asthma Daughter Asthma Daughter Depression Neoplasm Asthma Brother No problems noted. Social History Smoking/Tobacco Use Status: Current every day Tobacco Type: cigarettes Alcohol Intake: current Alcohol Intake frequency: a few times a week Drug use: Never Substance use type: does not use Household members: other Details: 2 current occupation: [employer] Pets and animals: Yes Pets and animals: cat(s), dog(s) and horse(s) What type of physical activity do you participate in: none Saniya/Faith: Judaism Special saniya needs: No Do you feel safe at home: Yes Do you feel safe in your relationship?: Yes Meds Home Medications Medication Instructions Recorded Confirmed Type Test Strips 1 strip INTRADERMAL DAILY strip 11/27/12 12/30/18 History lancets [FreeStyle Lancets] ea 11/27/12 12/30/18 History cyanocobalamin (vitamin B-12) 1,000 mcg PO DAILY #100 tab 02/16/17 01/15/19 Rx [Vitamin B-12] ergocalciferol (vitamin D2) 1 tab-cap PO M-W-F #12 tab-cap 10/04/17 01/15/19 Rx [Vitamin D2] epinephrine [EpiPen 2-Erick] 0.3 mg IM ONCE #2 dose 12/11/17 01/15/19 Rx folic acid 1 mg tablet 1 mg PO DAILY #90 tab 05/21/18 01/15/19 Rx metoprolol succinate ER 25 mg 25 mg PO DAILY 06/13/18 01/15/19 History tablet,extended release 24 hr atorvastatin 40 mg tablet 40 mg PO DAILY #90 tab-cap 06/14/18 01/15/19 Rx duloxetine 60 mg capsule,delayed 60 mg PO DAILY #90 tab-cap 06/14/18 01/15/19 Rx release allopurinol 100 mg tablet 100 mg PO DAILY #90 tab-cap 08/09/18 01/15/19 Rx gabapentin 600 mg tablet 600 mg PO TID #270 tab-cap 08/09/18 01/15/19 Rx glipizide ER 10 mg tablet, 10 mg PO DAILY #90 tab-cap 08/09/18 01/15/19 Rx extended release 24 hr nystatin 100,000 unit/gram topical 1 applic TOPICAL BID PRN #30 gm 12/04/18 01/15/19 Rx cream fluticasone 250 mcg-salmeterol 50 1 inh INHALATION BID PRN #3 each 12/11/18 01/15/19 Rx mcg/dose blistr powdr for inhalation meclizine 12.5 mg tablet 25 mg PO TID PRN #60 tab 12/17/18 01/15/19 Rx blood sugar diagnostic strips #100 each 12/18/18 12/30/18 Rx lancets 33 gauge #100 each 12/18/18 12/30/18 Rx liraglutide 0.6 mg/0.1 mL (18 mg/3 0.6 mg SC DAILY #6 ml 12/18/18 01/15/19 Rx mL) subcutaneous pen injector pen needle, diabetic 31 gauge x #30 each 12/18/18 12/30/18 Rx 1/4 acetaminophen [Tylenol Extra 1,000 mg PO Q6H PRN 01/15/19 01/15/19 History Strength] albuterol sulfate 2.5 mg INHALATION QID PRN 01/15/19 01/15/19 History aspirin [Aspir-81] 81 mg PO DAILY 01/15/19 01/15/19 History bisacodyl 10 mg MO DAILY 01/15/19 01/15/19 History dextrose [Glucose Gel] See Rx Instructions .ROUTE .COMPLEX 01/15/19 01/15/19 History glucagon (human recombinant) See Rx Instructions .ROUTE 01/15/19 01/15/19 History [Glucagon Emergency Kit (human)] .COMPLEX PRN magnesium hydroxide [Milk of 30 ml PO PRN PRN 01/15/19 01/15/19 History Magnesia] oxycodone 5 mg PO PRN PRN 01/15/19 01/15/19 History oxycodone 10 mg PO DAILY PRN 01/15/19 01/15/19 History polyethylene glycol 3350 [Miralax] 1 g PO PRN PRN 01/15/19 01/15/19 History ropinirole [Requip] 2 mg PO QPM PRN 01/15/19 01/15/19 History Allergies Allergy/AdvReac Type Severity Reaction Status Date / Time venom-honey bee Allergy Severe ANAPHYLAXIS Verified 01/15/19 16:23 adhesive Allergy BLISTERS Verified 01/15/19 16:23 Exam Narrative Exam Narrative: General: alert and oriented, pleasant and cooperative, lying in bed with head of bed elevated, in no acute distress. HEENT: normocephalic, atraumatic, EOMI, pupils equal and round, mucous membranes slightly dry. Neck: supple Cardiovascular: heart has regular rate and rhythm, no murmur appreciated. Chest: with midline sternal incision healing well, well approximated, no erythema, edema or active drainage. Respiratory: respirations even and unlabored, no shortness of breath while speaking in complete sentences, wet cough noted, lung sounds diminished with inspiratory and expiratory wheezes noted throughout. GI: abdomen soft, normoactive bowel sounds, nondistended, nontender on palpa tion. Extremities: LLE with 1+ pitting edema, RLE with 2+ pitting edema. Pedal pulses palpable bilaterally. Results Labs : 01/15/19 10:30 01/15/19 10:30 Laboratory Results - last 24 hr 01/15/19 01/15/19 01/15/19 10:30 10:30 10:30 WBC 14.57 H RBC 2.66 L Hgb 8.4 L Hct 28.0 L MCV 105.3 H MCH 31.6 MCHC 30.0 L RDW 15.6 H Plt Count 554 H MPV 9.0 Immature Gran % 0.4 Neutrophils % 78.8 Lymphocytes % 9.3 Monocytes % 7.1 Eosinophils % 4.0 Basophils % 0.4 Absolute Neutrophils 11.48 H Absolute Lymphocytes 1.36 Absolute Monocytes 1.03 H Absolute Eosinophils 0.58 Absolute Basophils 0.06 Sodium 142 Potassium 4.3 Chloride 102 Carbon Dioxide 33.6 H Anion Gap 6.4 BUN 22 H Creatinine 1.39 H Estimated GFR/1.73 m2 37.93 Glucose 190 H Calcium 8.4 L Magnesium 2.1 Total Bilirubin 0.6 AST 24 ALT 48 Alkaline Phosphatase 84 Troponin I 0.04 NT-Pro-B Natriuret Pep 3219 H Total Protein 6.3 L Albumin 2.3 L Last Vital Signs Temp 36.6 C 01/15/19 10:17 Pulse 94 H 01/15/19 16:12 Resp 24 01/15/19 16:08 BP 142/65 H 01/15/19 16:08 Pulse Ox 94 L 01/15/19 16:08
[2019-01-15] MEDS: Insulin Aspart 300 UNITS/3 ML PEN SC (18:12)
[2019-01-15] MEDS: methylPREDNISolone SUCC 125 MG VIAL 60 MG IVP (18:20)
[2019-01-15 19:06] LABS: Troponin I 0.02 ng/mL (0.00-0.06)
[2019-01-15] MEDS: Metoprolol CR 25 MG TABCR PO (19:30)
[2019-01-15] MEDS: Gabapentin 600 MG TAB PO (19:30)
[2019-01-15] MEDS: guaiFENesin 600 MG TABCR PO (19:30)
[2019-01-15] MEDS: Benzonatate 200 MG CAP PO (19:30)
[2019-01-15] MEDS: Budesonide/Formoterol 160/4.5 6 GM 60 PUFF INH IH (19:32)
--- NOTE | 2019-01-15 19:49 | W.PM.PROGNOT ---
Date of Service Date of service: 01/15/19 Time of Service: 19:50 Subjective Interval history since last seen: Called for a-flutter. Patient has h/o PAF, previously on Xaredto but this was discontinued following recent CABG insofar as PINEDA was resected at the time. Patient is asymptomatic and was not aware of the arrhythmia. Exam shows pulse approximately 120-130, BP 106/60. Monitor during exam shows Afib. Note that patient is on Lopressor 25 bid and had a dose just a few minutes prior to my visit. A/P: Afib/flutter, paroxysmal. Current episode possibly related to recent cardiac surgery. In any case will pursue rate control for present, monitor response to Lopressor, additional as needed. No need for anticoagulation given resection PINEDA. Objective Objective Clinical Data: Abnormal lab results 01/15/19 01/15/19 01/15/19 Range/Units 10:30 10:30 10:30 WBC 14.57 H (4.4-10.8) k/cumm RBC 2.66 L (4.00-5.20) m/cumm Hgb 8.4 L (12.0-15.5) g/dL Hct 28.0 L (36.0-46.0) % MCV 105.3 H (80-95) fL MCHC 30.0 L (32.0-36.0) g/dL RDW 15.6 H (11.7-14.6) % Plt Count 554 H (130-400) x1000/uL Absolute Neutrophils 11.48 H (1.2-6.7) k/cumm Absolute Monocytes 1.03 H (0.11-0.7) k/cumm Carbon Dioxide 33.6 H (21.0-32.0) mmol/L BUN 22 H (7-18) mg/dL Creatinine 1.39 H (0.55-1.02) mg/dL Glucose 190 H (70-100) mg/dL Calcium 8.4 L (8.5-10.1) mg/dL NT-Pro-B Natriuret Pep 3219 H ( - 299) pg/mL Total Protein 6.3 L (6.4-8.2) g/dL Albumin 2.3 L (3.4-5.0) g/dL Vital Signs Temperature 36.8 C 01/15/19 17:06 Temperature Source Tympanic 01/15/19 17:06 Pulse 90 01/15/19 17:06 Pulse Rhythm Regular 01/15/19 16:10 Pulse 89 01/15/19 15:20 Respiratory Rate 18 01/15/19 17:06 Respiratory Effort 01/15/19 16:10 Respiratory Depth Shallow 01/15/19 16:10 Respiratory Pattern Normal 01/15/19 16:10 Blood Pressure 123/59 L 01/15/19 17:06 Blood Pressure Mean 80 01/15/19 15:16 Blood Pressure Position Sitting 01/15/19 10:17 Pulse Oximetry 91 L 01/15/19 17:06 Oxygen Delivery Method Nasal Cannula 01/15/19 17:06 Oxygen Flow Rate 4 01/15/19 17:06 Pain Level 0 01/15/19 17:06 Intake & Output 01/14/19 01/15/19 01/15/19 23:59 11:59 23:59 Intake Total 300 / 300 Output Total 500 / 500 Balance -200 / -200 Weight 139.5 kg 139.5 kg Intake: IV 300 / 300 Output: Urine 500 / 500 Other: Urine Color Yellow Urine Appearance Clear Urine Odor Normal Voiding Methods Bedside Commode Laboratory Results WBC 14.57 k/cumm (4.4-10.8) H 01/15/19 10:30 RBC 2.66 m/cumm (4.00-5.20) L 01/15/19 10:30 Hgb 8.4 g/dL (12.0-15.5) L 01/15/19 10:30 Hct 28.0 % (36.0-46.0) L 01/15/19 10:30 MCV 105.3 fL (80-95) H 01/15/19 10:30 MCH 31.6 pg (27.0-33.0) 01/15/19 10:30 MCHC 30.0 g/dL (32.0-36.0) L 01/15/19 10:30 RDW 15.6 % (11.7-14.6) H 01/15/19 10:30 Plt Count 554 x1000/uL (130-400) H 01/15/19 10:30 MPV 9.0 fL (8.0-11.0) 01/15/19 10:30 Immature Gran % 0.4 01/15/19 10:30 Neutrophils % 78.8 01/15/19 10:30 Lymphocytes % 9.3 01/15/19 10:30 Monocytes % 7.1 01/15/19 10:30 Eosinophils % 4.0 01/15/19 10:30 Basophils % 0.4 01/15/19 10:30 Absolute Neutrophils 11.48 k/cumm (1.2-6.7) H 01/15/19 10:30 Absolute Lymphocytes 1.36 k/cumm (1.2-3.4) 01/15/19 10:30 Absolute Monocytes 1.03 k/cumm (0.11-0.7) H 01/15/19 10:30 Absolute Eosinophils 0.58 k/cumm (0.0-0.7) 01/15/19 10:30 Absolute Basophils 0.06 k/cumm (0.0-0.2) 01/15/19 10:30 Sodium 142 mmol/L (136-145) 01/15/19 10:30 Potassium 4.3 mmol/L (3.5-5.1) 01/15/19 10:30 Chloride 102 mmol/L (98-107) 01/15/19 10:30 Carbon Dioxide 33.6 mmol/L (21.0-32.0) H 01/15/19 10:30 Anion Gap 6.4 mmol/L (3-11) 01/15/19 10:30 BUN 22 mg/dL (7-18) H 01/15/19 10:30 Creatinine 1.39 mg/dL (0.55-1.02) H 01/15/19 10:30 Estimated GFR/1.73 m2 37.93 (mL/min/1.73m2) 01/15/19 10:30 Glucose 190 mg/dL (70-100) H 01/15/19 10:30 Calcium 8.4 mg/dL (8.5-10.1) L 01/15/19 10:30 Magnesium 2.1 mg/dL (1.8-2.4) 01/15/19 10:30 Total Bilirubin 0.6 mg/dL (0.2-1.0) 01/15/19 10:30 AST 24 U/L (15-37) 01/15/19 10:30 ALT 48 U/L (12-78) 01/15/19 10:30 Alkaline Phosphatase 84 U/L (46-116) 01/15/19 10:30 Troponin I 0.02 ng/mL (0.00-0.06) 01/15/19 16:40 NT-Pro-B Natriuret Pep 3219 pg/mL (-299) H 01/15/19 10:30 Total Protein 6.3 g/dL (6.4-8.2) L 01/15/19 10:30 Albumin 2.3 g/dL (3.4-5.0) L 01/15/19 10:30
[2019-01-15] MEDS: rOPINIRole 0.5 MG TAB 2 MG PO (21:38)
[2019-01-15] MEDS: Acetaminophen 325 MG TAB PO (21:38)
[2019-01-15] MEDS: Metoprolol 25 MG TAB PO (22:26)
[2019-01-15] MEDS: Heparin 5,000 UNITS/ML VIAL 5000 UNITS SC (22:26)
[2019-01-16] VITALS (11 sets, daily range): BP systolic 100–135; BP diastolic 63–84; PULSE 74–128; RESP 18–26; TEMP 35.8–36.6; O2SAT 92–99
[2019-01-16 00:37] LABS: Troponin I 0.03 ng/mL (0.00-0.06)
[2019-01-16] MEDS: PIPERACILLIN/TAZO 3.375 GM in Normal Saline 50 ML IVPB ×3 (01:53→17:54)
[2019-01-16] MEDS: methylPREDNISolone SUCC 125 MG VIAL 60 MG IVP ×3 (01:54→17:54)
[2019-01-16] MEDS: Normal Saline Flush 10 ML SYR IVP ×4 (02:00→17:55)
[2019-01-16] MEDS: dilTIAZem 30 MG TAB PO (02:39)
[2019-01-16] MEDS: Heparin 5,000 UNITS/ML VIAL 5000 UNITS SC ×3 (06:14→21:04)
[2019-01-16 07:39] LABS: Abs Immature Grans 0.07 k/cumm (0.0-0.09); Absolute Basophil Count 0.02 k/cumm (0.0-0.2); Absolute Neutrophil Count 17.43 k/cumm (1.2-6.7); Basophils % 0.1; HCT 27.5 % (36.0-46.0); HGB 8.1 g/dL (12.0-15.5); Immature Grans % 0.4; Lymphocytes % 4.2; Mean Corp. HGB Concentration 29.5 g/dL (32.0-36.0); Mean Corpuscular Hemoglobin 30.7 pg (27.0-33.0); Mean Corpuscular Volume 104.2 fL (80-95); Mean Platelet Volume 9.3 fL (8.0-11.0); Monocytes % 2.3; Platelet Count 607 x1000/uL (130-400); RBC 2.64 m/cumm (4.00-5.20); RBC Distribution Width 15.2 % (11.7-14.6); White Blood Cell Count 18.74 k/cumm (4.4-10.8)
[2019-01-16 07:45] LABS: Absolute Lymphocyte Count 0.79 k/cumm (1.2-3.4); Absolute Monocyte Count 0.43 k/cumm (0.11-0.7)
[2019-01-16 07:46] LABS: Anion Gap 6.2 mmol/L (3-11); BUN 26 mg/dL (7-18); CO2 30.8 mmol/L (21.0-32.0); CREATININE 1.39 mg/dL (0.55-1.02); Calcium 8.3 mg/dL (8.5-10.1); Chloride 103 mmol/L (98-107); Estimated GFR 37.93 (mL/min/1.73m2); Glucose 214 mg/dL (70-100); Magnesium 2.4 mg/dL (1.8-2.4); Potassium 4.8 mmol/L (3.5-5.1); Sodium 140 mmol/L (136-145); TSH (W/Ref FT4) 0.84 uIU/mL (0.358-3.74)
[2019-01-16 08:01] LABS: Diff Comment RBC Morph Reviewed; Hypochromasia 1+; Macrocytosis 1+; Poikilocytes 1+; Polychromasia Present
[2019-01-16] MEDS: Cyanocobalamin 500 MCG TAB 1000 MCG PO (08:37)
[2019-01-16] MEDS: Allopurinol 100 MG TAB PO (08:37)
[2019-01-16] MEDS: DULoxetine 30 MG CAP 60 MG PO (08:37)
[2019-01-16] MEDS: Aspirin E.C. 81 MG TABEC PO (08:37)
[2019-01-16] MEDS: Atorvastatin 40 MG TAB PO (08:37)
[2019-01-16] MEDS: Gabapentin 600 MG TAB PO ×3 (08:37→21:04)
[2019-01-16] MEDS: guaiFENesin 600 MG TABCR PO ×2 (08:38→21:03)
[2019-01-16] MEDS: Insulin Aspart 300 UNITS/3 ML PEN SC ×3 (08:38→16:59)
[2019-01-16] MEDS: Metoprolol CR 25 MG TABCR PO (08:38)
[2019-01-16] MEDS: Folic Acid 1 MG TAB PO (08:38)
[2019-01-16] MEDS: Benzonatate 200 MG CAP PO ×3 (08:38→21:04)
--- NOTE | 2019-01-16 09:00 | MERGE_ITS ---
*[facility]* *[facility]* [address] [place] [address] Date of study: 01/16/2019 Transthoracic Echocardiography M-mode, complete 2D, complete spectral Doppler, and color Doppler *STUDY CONCLUSIONS* Impressions: An atrial tachycardia rhythm was noted on this study, making this study technically difficult for the assessment of cardiac function. Summary: 1. Left ventricle: The cavity size was normal. Wall thickness was increased in a pattern of moderate LVH. Systolic function was normal. The estimated ejection fraction was 55-60%. Wall motion was normal; there were no regional wall motion abnormalities. 2. Right ventricle: The cavity size was normal. Wall thickness was increased. Systolic function was normal. 3. Pulmonary arteries: Pulmonary systolic pressure was increased, in the range of 35mm Hg to 40mm Hg. *PATIENT PRESENTATION* Height: 177.8cm ((70in) ) S/D Pressure: 108 / 71 Weight: 139.3kg ((306.4lb) ) BSA: 2.69m^2 Test start time: 09:15 AM. Test stop time: 10:15 AM. CONSULTING Laisha Mcmahon PERFORMING Unknown PERFORMING [facility] ASSISTANT PROFESSOR OF ENGLISH RT Jenni (Cathleen)(CT), [facility] ORDERING Elvira Mims REFERRING Elvira Mims *PROCEDURE DATA* Procedure information: The patient was identified by two identifiers. This study was interpreted by [facility]. Pertinent images and digital data are archived for permanent storage and are available for subsequent review. Comparison was made to the study of 02/07/2018. Study status: Routine. Transthoracic echocardiography. M-mode, complete 2D, complete spectral Doppler, and color Doppler. A Transthoracic Echocardiogram was performed. Scanning was performed from the parasternal, apical, subcostal, and suprasternal notch acoustic windows. Images were obtained using an [id number] cardiac ultrasound machine. Image quality was fair. Study completion: The patient tolerated the procedure well. There were no complications. History: PMH: Acute CHF. Post CABG. *CARDIAC ANATOMY* Left ventricle: The cavity size was normal. Wall thickness was increased in a pattern of moderate LVH. Systolic function was normal. The estimated ejection fraction was 55-60%. Wall motion was normal; there were no regional wall motion abnormalities. The study was not technically sufficient to allow evaluation of LV diastolic dysfunction due to atrial fibrillation. Aortic valve: Trileaflet; mildly thickened, mildly calcified leaflets. Mobility was not restricted. Doppler: Transvalvular velocity was within the normal range. There was no stenosis. There was no significant regurgitation. VTI ratio of LVOT to aortic valve: 0.62. Valve area (VTI): 2.1cm^2. Indexed valve area (VTI): 0.8cm^2/m^2. Peak velocity ratio of LVOT to aortic valve: 0.65. Valve area (Vmax): 2.2cm^2. Indexed valve area (Vmax): 0.8cm^2/m^2. Mean velocity ratio of LVOT to aortic valve: 0.65. Valve area (Vmean): 2.2cm^2. Indexed valve area (Vmean): 0.8cm^2/m^2. Mean gradient (S): 3.5mm Hg. Peak gradient (S): 5.3mm Hg. Aorta: Aortic root: The aortic root was normal in size. Ascending aorta: The ascending aorta was mildly dilated. Mitral valve: Mildly calcified annulus. Mobility was not restricted. Doppler: Transvalvular velocity was within the normal range. There was no evidence for stenosis. There was trivial regurgitation. Peak gradient (D): 3.8mm Hg. Left atrium: The atrium was normal in size. Right ventricle: The cavity size was normal. Wall thickness was increased. Systolic function was normal. Pulmonic valve: The pulmonary valve appears to be grossly normal. Doppler: Transvalvular velocity was within the normal range. There was no evidence for stenosis. There was no significant regurgitation. Peak gradient (S): 1.2mm Hg. Tricuspid valve: Structurally normal valve. Doppler: Transvalvular velocity was within the normal range. There was no evidence for stenosis. There was mild regurgitation. Pulmonary artery: Pulmonary systolic pressure was increased, in the range of 35mm Hg to 40mm Hg. Right atrium: The atrium was normal in size. Pericardium: There was no pericardial effusion. Systemic veins: Inferior vena cava: Well visualized. The vessel was patent and normal in size. The respirophasic diameter changes were blunted (less than 50%). Baseline ECG: Tachycardia. Measurements Left ventricle Value 02/07/2018 Reference LV ID, ED, PLAX 4.3 cm 4.5 3.5 - 6.0 LV ID, ES, PLAX 3.2 cm 3.2 2.1 - 4.0 LV PW thickness, ED, PLAX 1.4 cm 1.3 LV end-diastolic volume, 45 ml 72 1-p A2C LV ejection fraction, 1-p 62 % 55 A2C LV end-diastolic volume, 50 ml 56 1-p A4C LV ejection fraction, 1-p 53 % 58 A4C LV e', lateral 0.076 m/sec 0.11 LV E/e', lateral 13 6 LV e', medial 0.065 m/sec 0.07 LV E/e', medial 15 9 LV e', average 0.071 m/sec 0.09 LV E/e', average 14 7 Ventricular septum Value 02/07/2018 Reference IVS thickness, ED, PLAX 1.3 cm 1.5 LVOT Value 02/07/2018 Reference LVOT ID, A-P 2.1 cm 2.1 LVOT area 3.4 cm^2 3.5 LVOT peak velocity, S 0.75 m/sec 0.8 LVOT mean velocity, S 0.59 m/sec 0.59 LVOT VTI, S 11.8 cm 20.7 LVOT peak gradient, S 2.3 mm Hg 2.5 LVOT mean gradient, S 1.5 mm Hg 1.6 Stroke volume (SV), LVOT 40 ml 72 DP Stroke index (SV/bsa), 15 ml/m^2 28 LVOT DP Aortic valve Value 02/07/2018 Reference Aortic valve peak 1.2 m/sec 1.5 velocity, S Aortic valve mean 0.91 m/sec 1.13 velocity, S Aortic valve VTI, S 19.0 cm 34.4 Aortic mean gradient, S 3.5 mm Hg 5.4 Aortic peak gradient, S 5.3 mm Hg 8.5 VTI ratio, LVOT/AV 0.62 0.6 Aortic valve area, VTI 2.1 cm^2 2.1 Velocity ratio, peak, 0.65 0.55 LVOT/AV Aortic valve area, peak 2.2 cm^2 1.9 velocity Velocity ratio, mean, 0.65 0.53 LVOT/AV Aortic valve area, mean 2.2 cm^2 1.8 velocity Aortic valve area/bsa, 0.8 cm^2/m^2 0.7 mean velocity Aorta Value 02/07/2018 Reference Aortic root ID, ED 3.5 cm 3.4 Ascending aorta ID, A-P, S 3.7 cm 3.2 Left atrium Value 02/07/2018 Reference LA ID, A-P, ES 2.8 cm 2.0 LA ID/bsa, A-P 1.1 cm/m^2 0.8 <=2.2 LA area, ES, A4C 19 cm^2 13.2 8.8 - 23.4 LA area, ES, A2C 18 cm^2 16 LA volume/bsa, ES, 1-p A4C 23 ml/m^2 12 LA volume, ES, 2-p 49 ml 28 LA volume/bsa, ES, 2-p 18 ml/m^2 11 LA/aortic root ratio 0.82 0.59 Mitral valve Value 02/07/2018 Reference Mitral E-wave peak 0.98 m/sec 0.64 velocity Mitral peak gradient, D 3.8 mm Hg Pulmonary veins Value 02/07/2018 Reference Pulmonary vein peak 0.54 m/sec 0.39 velocity, S Pulmonary vein peak 0.73 m/sec 0.36 velocity, D Pulmonary vein velocity 0.73 1.1 ratio, peak, S/D Tricuspid valve Value 02/07/2018 Reference Tricuspid regurg peak 2.9 m/sec 3.2 velocity Tricuspid peak RV-RA 32.7 mm Hg 42 gradient Right atrium Value 02/07/2018 Reference RA area, ES, A4C (H) 21.2 cm^2 11.9 8.3 - 19.5 Pulmonic valve Value 02/07/2018 Reference Pulmonic peak gradient, S 1.2 mm Hg Legend: (L) and (H) gene values outside specified reference range. I have personally reviewed the images and have reviewed and edited the reported findings. Electronically signed by Noel Mesa 01/16/2019 10:55
[2019-01-16] MEDS: Furosemide 40 MG/4 ML VIAL IVP ×2 (10:49→15:44)
[2019-01-16] MEDS: Pantoprazole 40 MG VIAL IVP (10:49)
[2019-01-16] MEDS: Albuterol/Ipratropium 3 ML UPD VIAL UPD ×2 (11:27→18:04)
[2019-01-16] MEDS: oxyCODONE 5 MG TAB PO ×2 (11:42→18:07)
--- NOTE | 2019-01-16 11:51 | OT.INIE ---
Occupational Therapy Notes Inpatient Occupational Therapy Evaluation Date: 01/16/19 Referring Doctor: Elvira Mims MD OT Orders: Eval and Treat Precautions: Sternal Precautions, Contact, Fall PATIENT PROFILE/ADMITTING DIAGNOSIS: Pt is a 68 year old female who was brought to the ER from [facility] with complaints of SOB and was admitted with HCAP and exacerbation of COPD. Past Medical History: Medical History Hyperlipidemia (Chronic 08/10/00) Gout (Chronic 07/06/11) Spinal stenosis of lumbar region (Chronic 02/15/16) Restless legs (Chronic) Paroxysmal atrial fibrillation (Chronic 03/01/16) 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) Chronic obstructive lung disease (Chronic) Atrial fibrillation (Chronic) Restless leg syndrome (Chronic) Essential hypertension (Chronic) Hyperlipidemia (Chronic) History of coronary artery disease (Chronic) Abnormal mammography (Resolved) Ankle pain (Resolved 03/13/14) Carpal tunnel syndrome (Resolved 08/10/06) Cervical disc disorder with myelopathy (Resolved 08/21/08) Chest pain (Resolved) Diabetes mellitus (Resolved) Folate deficiency (Resolved 02/15/16) Hepatomegaly (Resolved) Hip joint inflamed (Resolved 09/03/15) Low back pain (Resolved 04/10/03) Menopausal syndrome (Resolved) Muscle fatigue (Resolved) Posterior tibial tendon dysfunction (Resolved) Postmenopausal bleeding (Resolved) Postoperative wound dehiscence (Resolved 12/23/15) Primary osteoarthritis of left hip (Resolved 09/17/15) Renal impairment (Resolved 07/11/03) Rotator cuff syndrome (Resolved 08/01/09) Smoker (Resolved 06/30/16) Tarsal tunnel syndrome (Resolved) Trochanteric bursitis (Resolved) Upper respiratory tract infection (Resolved 08/03/15) Vitamin D deficiency (Resolved) Atrial fibrillation COPD (chronic obstructive pulmonary disease) Carpal tunnel syndrome Cervical spondylosis with myelopathy Diabetes mellitus Gout Hypertension Spinal stenosis of lumbar region at multiple levels Vitamin D deficiency Surgical History S/P CABG (coronary artery bypass graft) (Acute ~01/15/19) H/O Spinal surgery (Resolved) H/O arthrodesis (Resolved) History of bilateral tubal ligation (Resolved) History of gynecologic surgery (Resolved) History of hip surgery (Resolved) History of orthopedic surgery (Resolved) S/P carpal tunnel release (Resolved) S/P cholecystectomy (Resolved) S/P rotator cuff repair (Resolved) Status post incision and drainage (Resolved) Arthrodesis Cholecystectomy (07/31/13) Endometrial Biopsy Left eye surgery Ligation of fallopian tube (~1980) Open Carpal Tunnel release Right wrist surgery Rotator Cuff Repair (~1980) SPINE SURGERY Total replacement of hip cervical repair (~10/2008) tarsal tunnel release (~1997) Social History/Home Situation: Pt reports that she was living in a community home renting a room prior to her CABGx3 and a short term stay at [facility]. She states that the home was sold and her children moved all of her stuff out and rented a storage [facility]. She notes that she left her in August and that she is (I) with all ADLs/IADLs at her baseline level of function. She does not feel that she has any limitations at this time and refused the need for OT services stating that she does feel she is at her baseline level of function. Pt reports that her plan is to move into her daughters home. She states that her daughter has a tub/shower with no grab bars but they can put one up. OT discussed shower seat/bench which pt denies and states she can stand. Pt states that she is limited in her ADLs d/t her CABGx3 but that even with this she is able to perform her ADLs with increased (I). Equipment owned/DME: pt states that she has 2-FWW, 2-shower chairs, 2-canes, grab bars, sock aid, shoe horns SUBJECTIVE: Pt was sitting in bed when OT arrived. She reports that she is agreeable to OT session but that once her breathing is under control she does not think she will need any services. Pt reports that she would like to go home with her daughter as soon as possible. OBJECTIVE: General Observation: O2 nasal cannula Mental Status: A&Ox3 Pain: no c/o pain ROM: RUE Shoulder flexion NT d/t sternal precautions can achieve up to 90*, elbow 4/5, client technologies specialist was strong (L) >(R) L UE Shoulder flexion NT d/t sternal precautions can achieve up to 90*, elbow 4/5, client technologies specialist was strong (L) >(R) STRENGTH: RUE Shoulder flexion NT d/t sternal precautions, elbow 4/5, client technologies specialist was strong (L) >(R) LUE Shoulder flexion NT d/t sternal precautions, elbow 4+/5, client technologies specialist was strong (L) >(R) FUNCTIONAL MOBILITY/ADLS: Transfers Supine-sit (I) Sit-supine (I) Sit-Stand (S) Stand-sit (S) Transfer to commode and back (S) pt does not want (A) for transfer Pt denies performance of skilled ADLS reporting she will perform them (I) later. EATING (I) BALANCE: Static sitting Normal Dynamic Sitting Normal Static Standing Good Dynamic Standing Fair SPECIAL TESTS: Daily Activity Limitations Standardized Measure [facility] AM -PAC ?6 clicks? Daily Activity Inpatient Short Form: Raw score: 22 Standardized score: 47.10 CMS score: 25.80% INFORMED CONSENT/EDUCATION: Pt instructed in purpose of OT Consult and plan of care. ASSESSMENT: Patient is a 68-year-old female referred to occupational therapy services with diagnosis of SOB with admission to Med Surg for dx of HCAP, COPD exacerbation. Patient presents with clinical signs and symptoms consistent with dx, as demonstrated by the following impairment level findings/functional limitations: Decreased functional activity tolerance, sternal precautions, significant PMHx see above. Pt does present with increased (I) in functional movements of (B) UE. Pt does not feel that she needs OT services. She states that she can do everything and that she likes to be (I). OT does agree that pt is (I) with slight decreased safety with functional moblity. Pt denies the need for skilled OT services and the return to SNF. OT does recommend that pt have HH services when is discharged and medically cleared per MD. Patient is assessed as a Low 55745 complexity based on the following: History: See Above Examination: See Above Presentation: Evolving Decision Making: low complexity GOALS N/A PLAN OF CARE/TREATMENT PLAN: OT consult only Discharge from skilled OT services. DISCHARGE RECOMMENDATIONS Pt is not receptive to SNF she reports that she will go home to her daughters home. OT recommends HH services to (A) pt when she medically cleared per MD. TREATMENT TIME/MINUTES/CODES 99366, 20 minutes (08:05) [facility]ERVIN [facility]
--- NOTE | 2019-01-16 11:55 | OTIE_ITS ---
Occupational Therapy Notes Inpatient Occupational Therapy Evaluation Date: 01/16/19 Referring Doctor: Elvira Mims MD OT Orders: Eval and Treat Precautions: Sternal Precautions, Contact, Fall PATIENT PROFILE/ADMITTING DIAGNOSIS: Pt is a 68 year old female who was brought to the ER from [facility] with complaints of SOB and was admitted with HCAP and exacerbation of COPD. Past Medical History: Medical History Hyperlipidemia (Chronic 08/10/00) Gout (Chronic 07/06/11) Spinal stenosis of lumbar region (Chronic 02/15/16) Restless legs (Chronic) Paroxysmal atrial fibrillation (Chronic 03/01/16) 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) Chronic obstructive lung disease (Chronic) Atrial fibrillation (Chronic) Restless leg syndrome (Chronic) Essential hypertension (Chronic) Hyperlipidemia (Chronic) History of coronary artery disease (Chronic) Abnormal mammography (Resolved) Ankle pain (Resolved 03/13/14) Carpal tunnel syndrome (Resolved 08/10/06) Cervical disc disorder with myelopathy (Resolved 08/21/08) Chest pain (Resolved) Diabetes mellitus (Resolved) Folate deficiency (Resolved 02/15/16) Hepatomegaly (Resolved) Hip joint inflamed (Resolved 09/03/15) Low back pain (Resolved 04/10/03) Menopausal syndrome (Resolved) Muscle fatigue (Resolved) Posterior tibial tendon dysfunction (Resolved) Postmenopausal bleeding (Resolved) Postoperative wound dehiscence (Resolved 12/23/15) Primary osteoarthritis of left hip (Resolved 09/17/15) Renal impairment (Resolved 07/11/03) Rotator cuff syndrome (Resolved 08/01/09) Smoker (Resolved 06/30/16) Tarsal tunnel syndrome (Resolved) Trochanteric bursitis (Resolved) Upper respiratory tract infection (Resolved 08/03/15) Vitamin D deficiency (Resolved) Atrial fibrillation COPD (chronic obstructive pulmonary disease) Carpal tunnel syndrome Cervical spondylosis with myelopathy Diabetes mellitus Gout Hypertension Spinal stenosis of lumbar region at multiple levels Vitamin D deficiency Surgical History S/P CABG (coronary artery bypass graft) (Acute ~01/15/19) H/O Spinal surgery (Resolved) H/O arthrodesis (Resolved) History of bilateral tubal ligation (Resolved) History of gynecologic surgery (Resolved) History of hip surgery (Resolved) History of orthopedic surgery (Resolved) S/P carpal tunnel release (Resolved) S/P cholecystectomy (Resolved) S/P rotator cuff repair (Resolved) Status post incision and drainage (Resolved) Arthrodesis Cholecystectomy (07/31/13) Endometrial Biopsy Left eye surgery Ligation of fallopian tube (~1980) Open Carpal Tunnel release Right wrist surgery Rotator Cuff Repair (~1980) SPINE SURGERY Total replacement of hip cervical repair (~10/2008) tarsal tunnel release (~1997) Social History/Home Situation: Pt reports that she was living in a community home renting a room prior to her CABGx3 and a short term stay at [facility]. She states that the home was sold and her children moved all of her stuff out and rented a storage care home. She notes that she left her in August and that she is (I) with all ADLs/IADLs at her baseline level of function. She does not feel that she has any limitations at this time and refused the need for OT services stating that she does feel she is at her baseline level of function. Pt reports that her plan is to move into her daughters home. She states that her daughter has a tub/shower with no grab bars but they can put one up. OT discussed shower seat/bench which pt denies and states she can stand. Pt states that she is limited in her ADLs d/t her CABGx3 but that even with this she is able to perform her ADLs with increased (I). Equipment owned/DME: pt states that she has 2-FWW, 2-shower chairs, 2-canes, grab bars, sock aid, shoe horns SUBJECTIVE: Pt was sitting in bed when OT arrived. She reports that she is agreeable to OT session but that once her breathing is under control she does not think she will need any services. Pt reports that she would like to go home with her daughter as soon as possible. OBJECTIVE: General Observation: O2 nasal cannula Mental Status: A&Ox3 Pain: no c/o pain ROM: RUE Shoulder flexion NT d/t sternal precautions can achieve up to 90*, elbow 4/5, reconciliation machine operator was strong (L) >(R) L UE Shoulder flexion NT d/t sternal precautions can achieve up to 90*, elbow 4/5, reconciliation machine operator was strong (L) >(R) STRENGTH: RUE Shoulder flexion NT d/t sternal precautions, elbow 4/5, reconciliation machine operator was strong (L) >(R) LUE Shoulder flexion NT d/t sternal precautions, elbow 4+/5, reconciliation machine operator was strong (L) >(R) FUNCTIONAL MOBILITY/ADLS: Transfers Supine-sit (I) Sit-supine (I) Sit-Stand (S) Stand-sit (S) Transfer to commode and back (S) pt does not want (A) for transfer Pt denies performance of skilled ADLS reporting she will perform them (I) later. EATING (I) BALANCE: Static sitting Normal Dynamic Sitting Normal Static Standing Good Dynamic Standing Fair SPECIAL TESTS: Daily Activity Limitations Standardized Measure [facility] AM -PAC ?6 clicks? Daily Activity Inpatient Short Form: Raw score: 22 Standardized score: 47.10 CMS score: 25.80% INFORMED CONSENT/EDUCATION: Pt instructed in purpose of OT Consult and plan of care. ASSESSMENT: Patient is a 68-year-old female referred to occupational therapy services with diagnosis of SOB with admission to Med Surg for dx of HCAP, COPD exacerbation. Patient presents with clinical signs and symptoms consistent with dx, as demonstrated by the following impairment level findings/functional li mitations: Decreased functional activity tolerance, sternal precautions, significant PMHx see above. Pt does present with increased (I) in functional movements of (B) UE. Pt does not feel that she needs OT services. She states that she can do everything and that she likes to be (I). OT does agree that pt is (I) with slight decreased safety with functional moblity. Pt denies the need for skilled OT services and the return to SNF. OT does recommend that pt have HH services when is discharged and medically cleared per MD. Patient is assessed as a Low 70280 complexity based on the following: History: See Above Examination: See Above Presentation: Evolving Decision Making: low complexity GOALS N/A PLAN OF CARE/TREATMENT PLAN: OT consult only Discharge from skilled OT services. DISCHARGE RECOMMENDATIONS Pt is not receptive to SNF she reports that she will go home to her daughters home. OT recommends HH services to (A) pt when she medically cleared per MD. TREATMENT TIME/MINUTES/CODES [id number], 20 minutes (08:05) KERVIN García/[facility]
[2019-01-16] MEDS: Metoprolol 25 MG TAB PO (13:58)
--- NOTE | 2019-01-16 14:38 | W.PM.PROGNOT ---
Date of Service Date of service: 01/16/19 Time of Service: 14:38 Assessment and Plan (1) HAP (hospital-acquired pneumonia): Current visit: No Status: Acute Recent hospitalization at [facility] [place] on 01/03/19, with subsequent transfer to [facility]. She presented to the ED yesterday with hypoxia, shortness of breath, productive cough with leukocyosis and infiltrate noted on chest x-ray. She continues to require oxygen. Continue IV vanco and pip/tazo as started in the ED due to concern for hospital-acquired pneumonia. Continue IV steroids, scheduled nebulizer treatments with supplemental oxygen as well as mucinex. (2) S/P CABG (coronary artery bypass graft): Current visit: No Status: Acute CABG x3 vessel at [facility] on 01/03/19 s/p NSTEMI. TTE prior to CABG reveals LVEF of 61%, no echo s/p surgery. Appears to be a component of fluid overload. Echocardiogram today shows LVEF 55-60%. Her weight is down 1 kg. Continue IV lasix. Continue oxycodone for postop pain. Continue to monitor on telemetry. (3) Diabetes mellitus: Current visit: No Status: Chronic Hgb A1c 7.6 today. Follow Blood glucose at &[facility] with sliding scale insulin. Continue Victoza. Hold oral diabetic agent. Place on ADA diet. (4) Paroxysmal atrial fibrillation: Current visit: No Status: Chronic PINEDA removed during CABG, no longer on Xarelto. She was in atrial fibrillation overnight, she is now back in normal sinus rhythm with rates in the 80s. EKG to confirm normal sinus rhythm. Metoprolol dose increased. Continue to monitor on telemetry. (5) Essential hypertension: Current visit: No Status: Chronic Blood pressure stable. Continue metoprolol. Continue to monitor blood pressure. (6) Chronic obstructive lung disease: Current visit: No Status: Chronic Treat as above. (7) CKD (chronic kidney disease) stage 3, GFR 30-59 ml/min: Current visit: No Status: Acute Creatinine below baseline on admission, remains stable. Monitor renal function in the setting of diuresis and IV antibiotic treatment. (8) DVT prophylaxis: Current visit: No Status: Acute subcutaneous heparin. (9) Discharge planning issues: Current visit: No Status: Acute She is a full code. She was transferred from [facility] [place] [facility]. Today, she verbalizes a desire to return home with her daughter when she is ready for discharge. She is working with PT/OT. Plan to discharge home when ready as long as she is safe. This case was discussed with Dr. Mims who is in agreement. Subjective Interval history since last seen: Ms Griggs reports continued shortness of breath, occasional wheezing and a cough productive of thick, light yellow sputum. She reports some improvement in her breathing. She did not sleep well last night. She denies chest pain/pressure, she has some incisional discomfort in her sternal incision when she coughs, otherwise, she denies discomfort. She believes the swelling in her legs is improving. She reports eating and drinking well, she denies abdominal pain, nausea, vomiting or diarrhea. She had a bowel movement today. She denies dysuria or hematuria. She is working with PT/OT. She is planning on returning home with her daughter when she is ready for discharge, she does not want to return to the rehab. Exam Narrative Exam Narrative: General: alert and oriented, pleasant and cooperative, lying in bed with head of bed elevated, in no acute distress. HEENT: normocephalic, atraumatic, EOMI, pupils equal and round, mucous membranes moist. Neck: supple Cardiovascular: heart has regular rate and rhythm, no murmur appreciated. Chest: with midline sternal incision healing well, well approximated, no erythema, edema or active drainage. Respiratory: respirations even and unlabored, no shortness of breath while speaking in complete sentences, wet cough noted, lung sounds diminished with expiratory wheezes noted throughout. GI: abdomen soft, normoactive bowel sounds, nondistended, nontender on palpation. Extremities: LLE with trace pitting edema, RLE with 1+ pitting edema. Pedal pulses palpable bilaterally. Objective Objective Clinical Data: Abnormal lab results 01/16/19 01/16/19 Range/Units 07:10 07:10 WBC 18.74 H (4.4-10.8) k/cumm RBC 2.64 L (4.00-5.20) m/cumm Hgb 8.1 L (12.0-15.5) g/dL Hct 27.5 L (36.0-46.0) % MCV 104.2 H (80-95) fL MCHC 29.5 L (32.0-36.0) g/dL RDW 15.2 H (11.7-14.6) % Plt Count 607 H (130-400) x1000/uL Absolute Neutrophils 17.43 H (1.2-6.7) k/cumm Absolute Lymphocytes 0.79 L (1.2-3.4) k/cumm BUN 26 H (7-18) mg/dL Creatinine 1.39 H (0.55-1.02) mg/dL Glucose 214 H (70-100) mg/dL Calcium 8.3 L (8.5-10.1) mg/dL Vital Signs Temperature 36.2 C L 01/16/19 11:25 Temperature Source Tympanic 01/16/19 11:25 Pulse 128 H 01/16/19 11:25 Pulse Rhythm Irregular 01/16/19 08:26 Pulse 89 01/15/19 15:20 Respiratory Rate 26 H 01/16/19 11:25 Respiratory Effort Non-Labored 01/16/19 08:26 Respiratory Depth Shallow 01/16/19 08:26 Respiratory Pattern Normal 01/16/19 08:26 Blood Pressure 133/84 01/16/19 11:25 Blood Pressure Mean 80 01/15/19 15:16 Blood Pressure Position Sitting 01/15/19 10:17 Pulse Oximetry 93 L 01/16/19 11:25 Oxygen Delivery Method Nasal Cannula 01/16/19 11:25 Oxygen Flow Rate 2 01/16/19 11:25 Pain Level 7 01/16/19 11:42 Intake & Output 01/15/19 01/16/19 01/16/19 23:59 11:59 23:59 Intake Total 590 / 590 540 / 820 280 / 820 Output Total 1900 / 1900 350 / 350 Balance -1310 / -1310 190 / 470 280 / 470 Weight 139.5 kg 138.5 kg Intake: IV 350 / 350 300 / 340 40 / 340 Oral 240 / 240 240 / 480 240 / 480 Output: Urine 1900 / 1900 350 / 350 Other: Urine Color Yellow Yellow Urine Appearance Clear Clear Urine Odor None Comment incontinent of a copious amount of urine Stool Size Moderate Stool Characteristics Soft Brown Voiding Methods Bedside Commode Bedside Commode Laboratory Results WBC 18.74 k/cumm (4.4-10.8) H 01/16/19 07:10 RBC 2.64 m/cumm (4.00-5.20) L 01/16/19 07:10 Hgb 8.1 g/dL (12.0-15.5) L 01/16/19 07:10 Hct 27.5 % (36.0-46.0) L 01/16/19 07:10 MCV 104.2 fL (80-95) H 01/16/19 07:10 MCH 30.7 pg (27.0-33.0) 01/16/19 07:10 MCHC 29.5 g/dL (32.0-36.0) L 01/16/19 07:10 RDW 15.2 % (11.7-14.6) H 01/16/19 07:10 Plt Count 607 x1000/uL (130-400) H 01/16/19 07:10 MPV 9.3 fL (8.0-11.0) 01/16/19 07:10 Immature Gran % 0.4 01/16/19 07:10 Neutrophils % 93.0 01/16/19 07:10 Lymphocytes % 4.2 01/16/19 07:10 Monocytes % 2.3 01/16/19 07:10 Eosinophils % 0.0 01/16/19 07:10 Basophils % 0.1 01/16/19 07:10 Absolute Neutrophils 17.43 k/cumm (1.2-6.7) H 01/16/19 07:10 Absolute Lymphocytes 0.79 k/cumm (1.2-3.4) L 01/16/19 07:10 Absolute Monocytes 0.43 k/cumm (0.11-0.7) 01/16/19 07:10 Absolute Eosinophils 0.00 k/cumm (0.0-0.7) 01/16/19 07:10 Absolute Basophils 0.02 k/cumm (0.0-0.2) 01/16/19 07:10 Differential Comment Rbc morph reviewed 01/16/19 07:10 RBC Morphology See below 01/16/19 07:10 Polychromasia Present 01/16/19 07:10 Hypochromasia 1+ 01/16/19 07:10 Poikilocytosis 1+ 01/16/19 07:10 Macrocytosis 1+ 01/16/19 07:10 Sodium 140 mmol/L (136-145) 01/16/19 07:10 Potassium 4.8 mmol/L (3.5-5.1) 01/16/19 07:10 Chloride 103 mmol/L (98-107) 01/16/19 07:10 Carbon Dioxide 30.8 mmol/L (21.0-32.0) 01/16/19 07:10 Anion Gap 6.2 mmol/L (3-11) 01/16/19 07:10 BUN 26 mg/dL (7-18) H 01/16/19 07:10 Creatinine 1.39 mg/dL (0.55-1.02) H 01/16/19 07:10 Estimated GFR/1.73 m2 37.93 (mL/min/1.73m2) 01/16/19 07:10 Glucose 214 mg/dL (70-100) H 01/16/19 07:10 Calcium 8.3 mg/dL (8.5-10.1) L 01/16/19 07:10 Magnesium 2.4 mg/dL (1.8-2.4) 01/16/19 07:10 Total Bilirubin 0.6 mg/dL (0.2-1.0) 01/15/19 10:30 AST 24 U/L (15-37) 01/15/19 10:30 ALT 48 U/L (12-78) 01/15/19 10:30 Alkaline Phosphatase 84 U/L (46-116) 01/15/19 10:30 Troponin I 0.03 ng/mL (0.00-0.06) 01/16/19 00:17 NT-Pro-B Natriuret Pep 3219 pg/mL (-299) H 01/15/19 10:30 Total Protein 6.3 g/dL (6.4-8.2) L 01/15/19 10:30 Albumin 2.3 g/dL (3.4-5.0) L 01/15/19 10:30 TSH 0.84 uIU/mL (0.358-3.74) 01/16/19 07:10
[2019-01-16 15:36] LABS: ALT 45 U/L (12-78); AST 19 U/L (15-37); Albumin 2.3 g/dL (3.4-5.0); Alkaline Phosphatase 83 U/L (46-116); Bilirubin, Direct 0.16 mg/dL (0.00-0.20); Bilirubin, Total 0.6 mg/dL (0.2-1.0); Total Protein 6.5 g/dL (6.4-8.2)
--- NOTE | 2019-01-16 15:55 | PDOC.CMIN ---
Care Management Initial Assess REASON FOR HOSPITALIZATION:: HCAP, COPD, EXAC, CHF, Acute Hypoxic Respiratory Failure PAST MEDICAL HISTORY/PAST SURGICAL HISTORY:: Abnormal mammography, ankle pain, A-fib, carpal tunnel syndrome, cervial disc disorder with myelopathy, cervical spondylosis with myelopathy, chest pain, COPD, chronic renal impairment associated with type 2 DM, Essential hypertension, folate deficiency, gout, hepatomegaly, hip joint inflamed, CAD, hyperlipidemia, hypertension, low back pain, menopausal syndrome, muscle fatigue, paroxysmal A-fib, posterior tibial tendon dysfunction, post menopausaul bleeding, postoperative wound dehiscence, primary osteoarthritis of left hip, renal impairment, restless leg syndrome, smoker, spinal stenosis of lumbar region, spinal stenosis of lumbar region at multiple levels, tarsal tunnel syndrome, trochanteric bursitis, upper respiratory tract infection, vitamin D deficiency, athrodesis, cervical repair, cholecystectomy, endometrial biopsy, spinal surgery, bilat tubal ligation, gynecologic surgery, hip surgery, orthopedic surgery, left eye surgery, ligation of fallopian tube, open carpal tunnel release, right wrist surgery, rotator cuff repair, CABG, incision and drainage, L total hip replacement. PREVIOUS FUNCTIONAL STATUS/SOCIAL/FAMILY SUPPORTS:: Ann-Marie resides at home with her spouse in [facility]. 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 Patient cares for her spouse at home who has Alzheimer's. Patients children are grown and she describes them as supportive. More recently, Ann-Marie entered [facility] s/p CABG at [facility]. She is in a period of rehabiliation. Her , is home on Hospice care which is creating emotional stress for Ann-Marie. CURRENT FUNCTIONAL STATUS:: Ann-Marie is having a work up this morning including ECHO and EKG. is able to meet with her briefly; Ann-Marie reports wanting to return home from [facility] to be with her . She also completes an updated HIPPA form. ADVANCE DIRECTIVES:: On file at [facility] Agent Kim Stock Has patient been provided with information about the portal?: No Did the patient sign up for the portal?: No CODE STATUS:: Full Code INSURANCE COVERAGE / FINANCIAL ISSUES:: BCBS CURRENT HOME/COMMUNITY SERVICES/EQUIPMENT:: SNF under rehab benefit at this time, at home she has a walker, and shower chair. PRIMARY CARE PHYSICIAN:: Dr. Mcmahon POTENTIAL DISCHARGE NEEDS:: Follow up appointment with primary care provider prior to discharge. PATIENT/FAMILY EDUCATION NEEDS:: Acute illness education, discharge plan and follow-up, limitations, asked me 3, and self-management education. ANTICIPATED BARRIERS TO DISCHARGE:: Ann-Marie remains a 1-2 assist and currently admitted to [facility] for rehab, though is advocating for returning home to be with her dying . TRANSPORTATION:: TBD by disposition and mobility. PLAN:: CM will continue to discuss disposition and patient wishes with Ann-Marie and interdepartmental team. She will be evaluated and work with PT/OT while inpatient. Anticipate a few more days of inpatient care for respiratory recovery per provider.
--- NOTE | 2019-01-16 16:17 | INITIAL_ITS ---
Care Management Initial Assess REASON FOR HOSPITALIZATION:: HCAP, COPD, EXAC, CHF, Acute Hypoxic Respiratory Failure PAST MEDICAL HISTORY/PAST SURGICAL HISTORY:: Abnormal mammography, ankle pain, A-fib, carpal tunnel syndrome, cervial disc disorder with myelopathy, cervical spondylosis with myelopathy, chest pain, COPD, chronic renal impairment associated with type 2 DM, Essential hypertension, folate deficiency, gout, hepatomegaly, hip joint inflamed, CAD, hyperlipidemia, hypertension, low back pain, menopausal syndrome, muscle fatigue, paroxysmal A-fib, posterior tibial tendon dysfunction, post menopausaul bleeding, postoperative wound dehiscence, primary osteoarthritis of left hip, renal impairment, restless leg syndrome, smoker, spinal stenosis of lumbar region, spinal stenosis of lumbar region at multiple levels, tarsal tunnel syndrome, trochanteric bursitis, upper respiratory tract infection, vitamin D deficiency, athrodesis, cervical repair, cholecystectomy, endometrial biopsy, spinal surgery, bilat tubal ligation, gynecologic surgery, hip surgery, orthopedic surgery, left eye surgery, ligation of fallopian tube, open carpal tunnel release, right wrist surgery, rotator cuff repair, CABG, incision and drainage, L total hip replacement. PREVIOUS FUNCTIONAL STATUS/SOCIAL/FAMILY SUPPORTS:: Ann-Marie resides at home with her spouse in [facility]. 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 Patient cares for her spouse at home who has Alzheimer's. Patients children are grown and she describes them as supportive. More recently, Ann-Marie entered [facility] s/p CABG at [facility]. She is in a period of rehabiliation. Her , is home on Hospice care which is creating emotional stress for Ann-Mraie. CURRENT FUNCTIONAL STATUS:: Ann-Marie is having a work up this morning including ECHO and EKG. is able to meet with her briefly; Ann-Marie reports wanting to return home from [facility] to be with her . She also completes an updated HIPPA form. ADVANCE DIRECTIVES:: On file at [facility] Agent Kim Stock Has patient been provided with information about the portal?: No Did the patient sign up for the portal?: No CODE STATUS:: Full Code INSURANCE COVERAGE / FINANCIAL ISSUES:: BCBS CURRENT HOME/COMMUNITY SERVICES/EQUIPMENT:: SNF under rehab benefit at this time, at home she has a walker, and shower chair. PRIMARY CARE PHYSICIAN:: Dr. Mcmahon POTENTIAL DISCHARGE NEEDS:: Follow up appointment with primary care provider prior to discharge. PATIENT/FAMILY EDUCATION NEEDS:: Acute illness education, discharge plan and follow-up, limitations, asked me 3, and self-management education. ANTICIPATED BARRIERS TO DISCHARGE:: Ann-Marie remains a 1-2 assist and currently admitted to [facility] for rehab, though is advocating for returning home to be with her dying . TRANSPORTATION:: TBD by disposition and mobility. PLAN:: CM will continue to discuss disposition and patient wishes with Ann-Marie and interdepartmental team. She will be evaluated and work with PT/OT while inpatient. Anticipate a few more days of inpatient care for respiratory recovery per provider.
--- NOTE | 2019-01-16 16:23 | PT.INIE ---
Date of service: 01/16/19 Time of Service: 16:23 PT Notes Inpatient Physical Therapy Evaluation Date: 01/16/2019 Referring Doctor: Elvira Mims MD PT Orders: PT CONSULT: Eval/Treat Precautions: Fall. Standard. Median sternotomy precautions. On contact precautions. Patient Profile/Admitting Diagnosis: Orders received for this 68-year-old female who was admitted on 01[facility]15/2019 [facility] with chief complaints of shortness of breath, cough, and wheezing. Patient was diagnosed with healthcare acquired pneumonia, CABG x 3 on due to NSTEMI with LVEF of 61%, and Stage 3 kidney disease with GFR of 30 to 59 mL/min. 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) Chronic obstructive lung disease (Chronic) Atrial fibrillation (Chronic) Restless leg syndrome (Chronic) Essential hypertension (Chronic) Hyperlipidemia (Chronic) History of coronary artery disease (Chronic) Abnormal mammography (Resolved) Ankle pain (Resolved 03/13/14) Carpal tunnel syndrome (Resolved 08/10/06) Cervical disc disorder with myelopathy (Resolved 08/21/08) Chest pain (Resolved) Diabetes mellitus (Resolved) Folate deficiency (Resolved 02/15/16) Hepatomegaly (Resolved) Hip joint inflamed (Resolved 09/03/15) Low back pain (Resolved 04/10/03) Menopausal syndrome (Resolved) Muscle fatigue (Resolved) Posterior tibial tendon dysfunction (Resolved) Postmenopausal bleeding (Resolved) Postoperative wound dehiscence (Resolved 12/23/15) Primary osteoarthritis of left hip (Resolved 09/17/15) Renal impairment (Resolved 07/11/03) Rotator cuff syndrome (Resolved 08/01/09) Smoker (Resolved 06/30/16) Tarsal tunnel syndrome (Resolved) Trochanteric bursitis (Resolved) Upper respiratory tract infection (Resolved 08/03/15) Vitamin D deficiency (Resolved) Atrial fibrillation COPD (chronic obstructive pulmonary disease) Carpal tunnel syndrome Cervical spondylosis with myelopathy Diabetes mellitus Gout Hypertension Spinal stenosis of lumbar region at multiple levels Vitamin D deficiency Surgical History S/P CABG (coronary artery bypass graft) (Acute ~01/15/19) H/O Spinal surgery (Resolved) H/O arthrodesis (Resolved) History of bilateral tubal ligation (Resolved) History of gynecologic surgery (Resolved) History of hip surgery (Resolved) History of orthopedic surgery (Resolved) S/P carpal tunnel release (Resolved) S/P cholecystectomy (Resolved) S/P rotator cuff repair (Resolved) Status post incision and drainage (Resolved) Arthrodesis Cholecystectomy (07/31/13) Endometrial Biopsy Left eye surgery Ligation of fallopian tube (~1980) Open Carpal Tunnel release Right wrist surgery Rotator Cuff Repair (~1980) SPINE SURGERY Total replacement of hip cervical repair (~10/2008) tarsal tunnel release (~1997) Social History/Home Situation: Ann-Marie states that she was living in a community home renting a room prior to her CABGx3 and a short term stay at [facility]. She was independent with all aspects of ADLs without the need for use of assistive ambulatory device nor an adaptive equipment. She states that the daughter has a ramp to enter the house with rails on both sides. The ramp goes onto the porch that leads to the kitchen. She reports that the home was sold and her children moved all of her stuff out and rented a storage halfway. She notes that she left her in August and that she is (I) with all ADLs/IADLs at her baseline level of function. Patient reports that her plan is to move into her daughters home. She states that her daughter has a tub/shower with no grab bars but they can put one up. Equipment Owned/DME: 2-FWW, 2-shower chairs, 2-canes, grab bars, sock aid, shoe horns Subjective: Patient pleasant and cooperative. She is agreeable to PT consult and treatment today. Patient has good mastery of sternotomy precautions. She does not want to return to the SNF and would instead want to go to her daughter's house from here. Objective: General Observation: Patient seen resting in bed with head of bed elevated 30 degrees. Median sternotomy incision well approximated. Mental Status: Alert and oriented x3 Pain: 0/10 ROM: Right Upper Extremity: Shoulder movements done only up to limits of movement precautions related to median sternotomy. Elbow flexion WFL. Wrist flexion WFL. Functional opening and closing of hand WFL. Left Upper Extremity: Shoulder movements done only up to limits of movement precautions related to median sternotomy. Elbow flexion WFL. Wrist flexion WFL. Functional opening and closing of hand WFL. WFL. Ankle dorsiflexion WFL. Ankle plantarflexion WFL. Right Lower Extremity: Hip flexion 0-110 wth range limited by abdominal panniculus. Hip abduction WFL. Knee flexion WFL. Ankle dorsiflexion WFL. Ankle plantarflexion WFL. Left Lower Extremity: Hip flexion 0-110 with range limited by abdominal panniculus. Hip abduction WFL. Knee flexion WFL. Ankle dorsiflexion WFL. Ankle plantarflexion WFL. Strength: Right Upper Extremity: Shoulder muscles not tested as median sternotomy precautions are still in effect with CABG x 3 done on 01/03/2019. Elbow flexors 5/5. Elbow extensors 5/5. Print Developer Automatic strong. Left Upper Extremity: Shoulder muscles not tested as median sternotomy precautions are still in effect with CABG x 3 done on 01/03/2019. Elbow flexors 5/5. Elbow extensors 5/5. Print Developer Automatic strong. Right Lower Extremity: Hip flexors 3-/5. Hip abductors 4-/5. Knee flexors 4-/5. Knee extensors 5/5. Ankle dorsiflexors 5/5. Ankle plantarflexors 5/5. Left Lower Extremity:Hip flexors 3-/5. Hip abductors 4/5. Knee flexors 4+/5. Knee extensors 4+/5. Ankle dorsiflexors 5/5. Ankle plantarflexors 5/5. Sensation: Intact as to pain and pressure to BLEs Bed Mobility/Transfers: Rolling independent Supine to sit independent with head of bed between 30 to 45 degrees Sit to supine independent with bed placed at lowest level to allow for independent placement of BLE Sit to stand SBA with bed elevated at least 22 inches from floor to minimize excessive pushing on B UE and trunk bending Stand to sit SBA with bed elevated at least 22 inches from floor to for more controlled descent Bed to chair SBA with bed elevated at least 22 inches from floor to for more controlled descent Chair to bed SBA with bed elevated at least 22 inches from floor to for more controlled descent Gait: Patient tolerated sidestepping 3 feet and a backing up 2 feet onto bedside commode without an assistive device requiring only SBA and minimal cues for compliance with median sternotomy precautions. Balance: Static Sitting: Good Dynamic Sitting: Good Static Standing: Good Dynamic Standing: Fair Special Tests: Mobility Limitations Standardized Measure [facility] AM-PAC 6 clicks Basic Mobility Inpatient Short Form: Raw Score: 19 CMS Score: 42% derficit Informed Consent/Education: Patient instructed in purpose of PT consult and plan of care. Median sternotomy precautions were also reviewed with patient during bed mobility and transfer task performance. Assessment: Patient is a 68- year-old female referred to physical therapy services with the diagnosis of pneumonia, CABG x3 on 425 due to NSTEMI, and Stage III disease. Patient presents with clinical signs and symptoms consistent with current/admitting diagnoses that have resulted to mobility limitations, gait instability, generalized weakness, and impairment of motor control as demonstrated by the following impairment level findings: 1. Decreased strength to B LE major muscle groups 2. Impaired sitting/standing balance 3. Impaired activity tolerance 4. Median sternotomy movement precautions status post CABG x3 Impairments are contributing to the following functional limitations: 1. Increased completion time for mobility ADL performance, needs frequent rests 2. Fall risk 3. Inability to negotiate ramps without assistance Patient is assessed as a Moderate 61486 limitations of complexity based on the following: History: 68-year-old female with diagnosis with healthcare acquired pneumonia, CABG x 3 on due to NSTEMI with LVEF of 61%, and Stage 3 kidney disease with GFR of 30 to 59 mL/min. Examination: Underlying impairments and functional limitations Presentation: Evolving Decision Makin moderate complexity Goals: Goals X1 week 1. Supine-Sit independent with HOB flat 2. Sit-Supine independent with HOB flat 3. Sit-Stand independent with bed height 20 inches from floor 4. Stand-Sit independent with bed height 20 inches from floor 5. Bed-Chair independent with bed height 20 inches from floor 6. Chair-Bed independent with bed height 20 inches from floor 7. Independent gait on level surface without use of assistive ambulatory device for at least 300 feet without report of chest pain nor dyspnea 8. Independent with home exercise program 9. Good dynamic standing balance/tolerance 10. Patient will perform 2-minute walk test without AD of at least 100 feet without report of chest pain nor dyspnea patient home health physical therapy services in order to Plan of Care/Treatment Plan: 1-2x/day, 7 days/week x 1 week. Plan of care has been reviewed with the [facility] providing the service under Physical Therapy direction. Initiate Physical Therapy intervention for strengthening, bed mobility, transfers, gait, stairs, balance training, use of assistive device. DISCHARGE RECOMMENDATIONS: Patient will benefit from home health physical therapy services in order to prepare patient for phase 2 outpatient cardiac rehab program, reduce fall risk, maximize functional mobility level, and to assess home safety at daughter's house. TREATMENT CODE/TIME: 95196 for 23 minutes beginning at 10:44 AM. Thank you for this referral. Kathryn Sainz, PT, DPT, CLT [facility]
[2019-01-16] MEDS: Budesonide/Formoterol 160/4.5 6 GM 60 PUFF INH IH (21:01)
[2019-01-16] MEDS: rOPINIRole 0.5 MG TAB 2 MG PO (21:03)
[2019-01-16] MEDS: Acetaminophen 325 MG TAB PO (21:03)
[2019-01-16] MEDS: Metoprolol 50 MG TAB PO (21:04)
[2019-01-17] VITALS (14 sets, daily range): BP systolic 111–131; BP diastolic 63–78; PULSE 58–89; RESP 1–20; TEMP 35.4–36.1; O2SAT 82–99
[2019-01-17] MEDS: methylPREDNISolone SUCC 125 MG VIAL 60 MG IVP ×3 (01:53→21:33)
[2019-01-17] MEDS: PIPERACILLIN/TAZO 3.375 GM in Normal Saline 50 ML IVPB ×3 (01:54→20:09)
[2019-01-17] MEDS: Albuterol/Ipratropium 3 ML UPD VIAL UPD ×4 (05:33→23:51)
[2019-01-17] MEDS: Heparin 5,000 UNITS/ML VIAL 5000 UNITS SC ×3 (05:34→21:34)
[2019-01-17] MEDS: Budesonide/Formoterol 160/4.5 6 GM 60 PUFF INH IH ×2 (07:27→20:09)
[2019-01-17] MEDS: Insulin Aspart 300 UNITS/3 ML PEN SC ×3 (08:53→16:38)
[2019-01-17] MEDS: Polyethylene Glycol 3350 17 GM PACKET PO (08:54)
[2019-01-17] MEDS: Normal Saline Flush 10 ML SYR IVP ×3 (08:55→21:41)
[2019-01-17] MEDS: Pantoprazole 40 MG VIAL IVP (08:55)
[2019-01-17] MEDS: Furosemide 40 MG/4 ML VIAL IVP (08:56)
[2019-01-17] MEDS: Gabapentin 600 MG TAB PO ×3 (08:56→20:09)
[2019-01-17] MEDS: Atorvastatin 40 MG TAB PO (08:56)
[2019-01-17] MEDS: oxyCODONE 5 MG TAB PO ×2 (08:57→15:40)
[2019-01-17] MEDS: guaiFENesin 600 MG TABCR PO ×2 (08:58→20:09)
[2019-01-17] MEDS: Folic Acid 1 MG TAB PO (08:58)
[2019-01-17] MEDS: DULoxetine 30 MG CAP 60 MG PO (08:58)
[2019-01-17] MEDS: Cyanocobalamin 500 MCG TAB 1000 MCG PO (08:58)
[2019-01-17] MEDS: Benzonatate 200 MG CAP PO ×3 (08:58→20:09)
[2019-01-17] MEDS: Metoprolol 50 MG TAB PO ×2 (08:58→20:09)
[2019-01-17] MEDS: Aspirin E.C. 81 MG TABEC PO (08:58)
[2019-01-17] MEDS: Allopurinol 100 MG TAB PO (08:59)
[2019-01-17 09:31] LABS: Abs Immature Grans 0.09 k/cumm (0.0-0.09); Basophils % 0.1; Eosinophils % 0.6; HCT 29.2 % (36.0-46.0); HGB 8.8 g/dL (12.0-15.5); Immature Grans % 0.4; Mean Corp. HGB Concentration 30.1 g/dL (32.0-36.0); Mean Corpuscular Hemoglobin 31.4 pg (27.0-33.0); Mean Corpuscular Volume 104.3 fL (80-95); Mean Platelet Volume 9.9 fL (8.0-11.0); Monocytes % 2.2; Neutrophils % 93.7; RBC Distribution Width 15.4 % (11.7-14.6); White Blood Cell Count 23.58 k/cumm (4.4-10.8)
[2019-01-17 09:35] LABS: Absolute Basophil Count 0.02 k/cumm (0.0-0.2); Absolute Eosinophil Count 0.14 k/cumm (0.0-0.7); Absolute Lymphocyte Count 0.71 k/cumm (1.2-3.4); Absolute Monocyte Count 0.52 k/cumm (0.11-0.7); Absolute Neutrophil Count 22.09 k/cumm (1.2-6.7)
[2019-01-17 09:56] LABS: Anisocytosis 2+; Macrocytosis 1+; Polychromasia Present
[2019-01-17 09:57] LABS: Poikilocytes 1+
[2019-01-17 09:59] LABS: Anion Gap 14.1 mmol/L (3-11); BUN 41 mg/dL (7-18); CO2 23.9 mmol/L (21.0-32.0); CREATININE 1.94 mg/dL (0.55-1.02); Calcium 8.8 mg/dL (8.5-10.1); Chloride 99 mmol/L (98-107); Estimated GFR 25.82 (mL/min/1.73m2); Glucose 319 mg/dL (70-100); Potassium 5.1 mmol/L (3.5-5.1); Sodium 137 mmol/L (136-145)
[2019-01-17 11:45] LABS: Vancomycin, Trough 19.6 ug/mL (10.0-20.0)
--- NOTE | 2019-01-17 13:10 | PT.INTREAT ---
Date of service: 01/17/19 Time of Service: 13:10 PT Notes Inpatient Physical Therapy Treatment Note [facility] Date: 01/17/2019 PRECAUTIONS: Fall. Standard. Median sternotomy precautions. SUBJECTIVE: Patient anxious about not being able to move her bowels. Agreeable to a physical therapy session today hoping that it would help with bowel movement. She states she feels better today and reports that she slept a lot better last night. OBJECTIVE: Patient seen resting in bed with HOB elevated to 30 degrees PAIN: Reports no pain on sternotomy incision. BED MOBILITY/TRANSFERS Rolling independent Supine to sit independent with head of bed between 30 to 45 degrees Sit to supine independent with bed placed at lowest level to allow for independent placement of BLE Sit to stand SBA with bed elevated at least 22 inches from floor to minimize excessive pushing on B UE and trunk bending Stand to sit SBA with bed elevated at least 22 inches from floor to for more controlled descent Bed to chair SBA with bed elevated at least 22 inches from floor to for more controlled descent Chair to bed SBA with bed elevated at least 22 inches from floor to for more controlled descent GAIT Assistive Device: FWW Weight bearing: WBAT with sternotomy precautions still in effect Assist: SBA Distance: 80 feet x 2 Deviation: Gait velocity decreased, decreased step height and length, shortness of breath at the end of activity which resolved with rest VITALS: 89% to 94% on 2 L of oxygen throughout gait activity ASSESSMENT: Patient demonstrating improved activity tolerance and endurance in performing level surface ambulation. She is now off contact precautions as of today. Nurse updated about issue with defecation. PLAN: Continue with PT POC as initially established. Patient will benefit from home health PT services in order to maximize activity tolerance in preparation for phase 2 outpatient cardiac rehab participation. TREATMENT CODE/TIME: 94990? 2 beginning at 10:36 AM.
--- NOTE | 2019-01-17 13:19 | W.PM.PROGNOT ---
Date of Service Date of service: 01/17/19 Time of Service: 13:19 Assessment and Plan (1) HAP (hospital-acquired pneumonia): Current visit: No Status: Acute Recent hospitalization at [facility] for CABG on 01/03/19, with subsequent transfer to [facility] and rehab. On presentation she was hypoxic with shortness of breath, productive cough, with leukocyosis and infiltrate noted on chest x-ray. Her shortness of breath is improving with the current treatment and IV Lasix. Her white blood cell count is elevated today, likely in the setting of IV steroids. She continues to require oxygen. Continue IV vanco and pip/tazo due to concern for hospital-acquired pneumonia. Continue IV steroids- begin to taper, scheduled nebulizer treatments with supplemental oxygen as well as mucinex. (2) S/P CABG (coronary artery bypass graft): Current visit: No Status: Acute CABG x3 vessel at [facility] on 01/03/19 s/p NSTEMI. Appeared to be a component of fluid overload on presentation. Echocardiogram on this admission shows LVEF 55-60%. Her weight is down 3 kg on IV lasix. Her creatinine is up today. Stop IV lasix and monitor. Continue oxycodone for postop pain. Continue to monitor on telemetry. (3) Diabetes mellitus: Current visit: No Status: Chronic Hgb A1c 7.6. Fingersticks have been in the 200-300s. Continue to follow Blood glucose at & with sliding scale insulin. Begin lantus tonight. Hold oral diabetic agent. Continue ADA diet. (4) Paroxysmal atrial fibrillation: Current visit: No Status: Chronic PINEDA removed during CABG, no longer on Xarelto. She has been monitored on telemetry, she was in a-fib, she went back into NSR yesterday- she remains in NSR with rates in the 60-70s. Metoprolol dose increased to 50mg BID. Continue to monitor on telemetry. (5) Essential hypertension: Current visit: No Status: Chronic Blood pressure stable. Continue metoprolol. Continue to monitor blood pressure. (6) Chronic obstructive lung disease: Current visit: No Status: Chronic Treat as above. (7) CKD (chronic kidney disease) stage 3, GFR 30-59 ml/min: Current visit: No Status: Acute Creatinine up today in the setting of diuresis with IV lasix and IV antibiotic therapy in a patient with CKD. Stop lasix. Continue to monitor renal function. (8) DVT prophylaxis: Current visit: No Status: Acute subcutaneous heparin. (9) Discharge planning issues: Current visit: No Status: Acute She is a full code. She was transferred from [facility] to [facility] and rehab. She continues to verbalize a desire to return home with her daughter when she is ready for discharge. She is working with PT/OT. Plan to discharge home when ready as long as she is safe. This case was discussed with Dr. Mims who is in agreement. Subjective Interval history since last seen: Ms Griggs reports feeling better today. She continues to have mild shortness of breath with activity. She reports that she ambulated with physical therapy and that her oxygen saturation decreased with ambulation. She feels wheezy occasionally, she continues to cough however, her cough is nonproductive today. She reports that the crackling that she was hearing when she breathes is improving. She continues to have mild incisional discomfort at her sternal incision when she coughs. Otherwise, she denies chest pain/pressure, palpitations. She continues to report edema in her right lower extremity. She reports eating and drinking well, she denies abdominal pain, nausea, vomiting or diarrhea. She had a bowel movement today. She denies dysuria or hematuria. She verbalizes a desire to return home with her daughter when she is ready for discharge, rather than returning to [facility] and rehab. Exam Narrative Exam Narrative: General: alert and oriented, pleasant and cooperative, sitting up in the recliner with her legs elevated, in no acute distress. HEENT: normocephalic, atraumatic, EOMI, pupils equal and round, mucous membranes moist. Neck: supple, no JVD. Cardiovascular: heart has regular rate and rhythm, no murmur appreciated. Chest: with midline sternal incision healing well, well approximated, no erythema, significant edema or active drainage. Respiratory: respirations even and unlabored, no shortness of breath while speaking in complete sentences, cough improving, lung sounds diminished throughout with expiratory wheezes noted in right upper lobe. GI: abdomen soft, normoactive bowel sounds, nondistended, nontender on palpation. Extremities: LLE edema improved- TEDs on left. RLE with 1+ pitting edema- celeste wrap; incision distal to left knee, medially healing well, well approximated without signs of infection. Pedal pulses palpable bilaterally. Objective Objective Clinical Data: Abnormal lab results 01/16/19 01/17/19 01/17/19 Range/Units 07:10 09:15 09:15 WBC 23.58 H (4.4-10.8) k/cumm RBC 2.80 L (4.00-5.20) m/cumm Hgb 8.8 L (12.0-15.5) g/dL Hct 29.2 L (36.0-46.0) % MCV 104.3 H (80-95) fL MCHC 30.1 L (32.0-36.0) g/dL RDW 15.4 H (11.7-14.6) % Absolute Neutrophils 22.09 H (1.2-6.7) k/cumm Absolute Lymphocytes 0.71 L (1.2-3.4) k/cumm Anion Gap 14.1 H (3-11) mmol/L BUN 41 H D (7-18) mg/dL Creatinine 1.94 H (0.55-1.02) mg/dL Glucose 319 H D (70-100) mg/dL Albumin 2.3 L (3.4-5.0) g/dL Vital Signs Temperature 35.7 C L 01/17/19 12:58 Temperature Source Tympanic 01/17/19 12:58 Pulse 76 01/17/19 12:58 Pulse Rhythm Regular 01/17/19 08:19 Pulse 89 01/15/19 15:20 Respiratory Rate 18 01/17/19 12:58 Respiratory Effort 01/17/19 08:19 Respiratory Depth Normal 01/17/19 08:19 Respiratory Pattern Normal 01/17/19 08:19 Blood Pressure 111/63 01/17/19 12:58 Blood Pressure Mean 80 01/15/19 15:16 Blood Pressure Position Sitting 01/15/19 10:17 Pulse Oximetry 99 01/17/19 12:58 Oxygen Delivery Method Nasal Cannula 01/17/19 12:58 Oxygen Flow Rate 2 01/17/19 12:58 Pain Level 6 01/17/19 12:58 Comment 01/17/19 12:58 Intake & Output 01/16/19 01/17/19 01/17/19 23:59 11:59 23:59 Intake Total 1090 / 1680 1180 / 1180 Output Total 1200 / 1550 Balance -110 / 130 1180 / 1180 Weight 136.9 kg Intake: IV 130 / 480 380 / 380 Oral 960 / 1200 800 / 800 Output: Urine 1200 / 1550 Other: Urine Color Yellow Yellow Light [place] Urine Appearance Clear Clear Urine Odor Normal None Comment Patient voided 400 mL in the am. Stool Size Smear Stool Characteristics Hard Voiding Methods Bedside Commode Bedside Commode Laboratory Results WBC 23.58 k/cumm (4.4-10.8) H 01/17/19 09:15 RBC 2.80 m/cumm (4.00-5.20) L 01/17/19 09:15 Hgb 8.8 g/dL (12.0-15.5) L 01/17/19 09:15 Hct 29.2 % (36.0-46.0) L 01/17/19 09:15 MCV 104.3 fL (80-95) H 01/17/19 09:15 MCH 31.4 pg (27.0-33.0) 01/17/19 09:15 MCHC 30.1 g/dL (32.0-36.0) L 01/17/19 09:15 RDW 15.4 % (11.7-14.6) H 01/17/19 09:15 Plt Count x1000/uL (130-400) 01/17/19 09:15 MPV 9.9 fL (8.0-11.0) 01/17/19 09:15 Immature Gran % 0.4 01/17/19 09:15 Neutrophils % 93.7 01/17/19 09:15 Lymphocytes % 3.0 01/17/19 09:15 Monocytes % 2.2 01/17/19 09:15 Eosinophils % 0.6 01/17/19 09:15 Basophils % 0.1 01/17/19 09:15 Absolute Neutrophils 22.09 k/cumm (1.2-6.7) H 01/17/19 09:15 Absolute Lymphocytes 0.71 k/cumm (1.2-3.4) L 01/17/19 09:15 Absolute Monocytes 0.52 k/cumm (0.11-0.7) 01/17/19 09:15 Absolute Eosinophils 0.14 k/cumm (0.0-0.7) 01/17/19 09:15 Absolute Basophils 0.02 k/cumm (0.0-0.2) 01/17/19 09:15 Differential Comment Comment 01/17/19 09:15 RBC Morphology See below 01/17/19 09:15 Polychromasia Present 01/17/19 09:15 Hypochromasia 1+ 01/16/19 07:10 Poikilocytosis 1+ 01/17/19 09:15 Anisocytosis 2+ 01/17/19 09:15 Macrocytosis 1+ 01/17/19 09:15 Sodium 137 mmol/L (136-145) 01/17/19 09:15 Potassium 5.1 mmol/L (3.5-5.1) 01/17/19 09:15 Chloride 99 mmol/L (98-107) 01/17/19 09:15 Carbon Dioxide 23.9 mmol/L (21.0-32.0) 01/17/19 09:15 Anion Gap 14.1 mmol/L (3-11) H 01/17/19 09:15 BUN 41 mg/dL (7-18) H D 01/17/19 09:15 Creatinine 1.94 mg/dL (0.55-1.02) H 01/17/19 09:15 Estimated GFR/1.73 m2 25.82 (mL/min/1.73m2) 01/17/19 09:15 Glucose 319 mg/dL (70-100) H D 01/17/19 09:15 Calcium 8.8 mg/dL (8.5-10.1) 01/17/19 09:15 Magnesium 2.4 mg/dL (1.8-2.4) 01/16/19 07:10 Total Bilirubin 0.6 mg/dL (0.2-1.0) 01/16/19 07:10 Conjugated Bilirubin 0.16 mg/dL (0.00-0.20) 01/16/19 07:10 AST 19 U/L (15-37) 01/16/19 07:10 ALT 45 U/L (12-78) 01/16/19 07:10 Alkaline Phosphatase 83 U/L (46-116) 01/16/19 07:10 Troponin I 0.03 ng/mL (0.00-0.06) 01/16/19 00:17 NT-Pro-B Natriuret Pep 3219 pg/mL (-299) H 01/15/19 10:30 Total Protein 6.5 g/dL (6.4-8.2) 01/16/19 07:10 Albumin 2.3 g/dL (3.4-5.0) L 01/16/19 07:10 TSH 0.84 uIU/mL (0.358-3.74) 01/16/19 07:10 Vancomycin Trough 19.6 ug/mL (10.0-20.0) 01/17/19 11:20
--- NOTE | 2019-01-17 13:29 | PGE_ITS ---
Date of Service Date of service: 01/17/19 Time of Service: 13:19 Assessment and Plan (1) HAP (hospital-acquired pneumonia): Current visit: No Status: Acute Recent hospitalization at [facility] for CABG on 01/03/19, with subsequent transfer to [facility] and rehab. On presentation she was hypoxic with shortness of breath, productive cough, with leukocyosis and infiltrate noted on chest x-ray. Her shortness of breath is improving with the current treatment and IV Lasix. Her white blood cell count is elevated today, likely in the setting of IV steroids. She continues to require oxygen. Continue IV vanco and pip/tazo due to concern for hospital-acquired pneumonia. Continue IV steroids- begin to taper, scheduled nebulizer treatments with supplemental oxygen as well as mucinex. (2) S/P CABG (coronary artery bypass graft): Current visit: No Status: Acute CABG x3 vessel at [facility] on 01/03/19 s/p NSTEMI. Appeared to be a component of fluid overload on presentation. Echocardiogram on this admission shows LVEF 55-60%. Her weight is down 3 kg on IV lasix. Her creatinine is up today. Stop IV lasix and monitor. Continue oxycodone for postop pain. Continue to monitor on telemetry. (3) Diabetes mellitus: Current visit: No Status: Chronic Hgb A1c 7.6. Fingersticks have been in the 200-300s. Continue to follow Blood glucose at & with sliding scale insulin. Begin lantus tonight. Hold oral diabetic agent. Continue ADA diet. (4) Paroxysmal atrial fibrillation: Current visit: No Status: Chronic PINEDA removed during CABG, no longer on Xarelto. She has been monitored on telemetry, she was in a-fib, she went back into NSR yesterday- she remains in NSR with rates in the 60-70s. Metoprolol dose increased to 50mg BID. Continue to monitor on telemetry. (5) Essential hypertension: Current visit: No Status: Chronic Blood pressure stable. Continue metoprolol. Continue to monitor blood pressure. (6) Chronic obstructive lung disease: Current visit: No Status: Chronic Treat as above. (7) CKD (chronic kidney disease) stage 3, GFR 30-59 ml/min: Current visit: No Status: Acute Creatinine up today in the setting of diuresis with IV lasix and IV antibiotic therapy in a patient with CKD. Stop lasix. Continue to monitor renal function. (8) DVT prophylaxis: Current visit: No Status: Acute subcutaneous heparin. (9) Discharge planning issues: Current visit: No Status: Acute She is a full code. She was transferred from [facility] to [facility] and rehab. She continues to verbalize a desire to return home with her daughter when she is ready for di scharge. She is working with PT/OT. Plan to discharge home when ready as long as she is safe. This case was discussed with Dr. Mims who is in agreement. Subjective Interval history since last seen: Ms Griggs reports feeling better today. She continues to have mild shortness of breath with activity. She reports that she ambulated with physical therapy and that her oxygen saturation decreased with ambulation. She feels wheezy occasionally, she continues to cough however, her cough is nonproductive today. She reports that the crackling that she was hearing when she breathes is improving. She continues to have mild incisional discomfort at her sternal incision when she coughs. Otherwise, she denies chest pain/pressure, palpitations. She continues to report edema in her right lower extremity. She reports eating and drinking well, she denies abdominal pain, nausea, vomiting or diarrhea. She had a bowel movement today. She denies dysuria or hematuria. She verbalizes a desire to return home with her daughter when she is ready for discharge, rather than returning to [facility] and rehab. Exam Narrative Exam Narrative: General: alert and oriented, pleasant and cooperative, sitting up in the recliner with her legs elevated, in no acute distress. HEENT: normocephalic, atraumatic, EOMI, pupils equal and round, mucous membranes moist. Neck: supple, no JVD. Cardiovascular: heart has regular rate and rhythm, no murmur appreciated. Chest: with midline sternal incision healing well, well approximated, no erythema, significant edema or active drainage. Respiratory: respirations even and unlabored, no shortness of breath while speaking in complete sentences, cough improving, lung sounds diminished throughout with expiratory wheezes noted in right upper lobe. GI: abdomen soft, normoactive bowel sounds, nondistended, nontender on palpation. Extremities: LLE edema improved- TEDs on left. RLE with 1+ pitting edema- celeste wrap; incision distal to left knee, medially healing well, well approximated without signs of infection. Pedal pulses palpable bilaterally. Objective Objective Clinical Data: Abnormal lab results 01/16/19 01/17/19 01/17/19 Range/Units 07:10 09:15 09:15 WBC 23.58 H (4.4-10.8) k/cumm RBC 2.80 L (4.00-5.20) m/cumm Hgb 8.8 L (12.0-15.5) g/dL Hct 29.2 L (36.0-46.0) % MCV 104.3 H (80-95) fL MCHC 30.1 L (32.0-36.0) g/dL RDW 15.4 H (11.7-14.6) % Absolute Neutrophils 22.09 H (1.2-6.7) k/cumm Absolute Lymphocytes 0.71 L (1.2-3.4) k/cumm Anion Gap 14.1 H (3-11) mmol/L BUN 41 H D (7-18) mg/dL Creatinine 1.94 H (0.55-1.02) mg/dL Glucose 319 H D (70-100) mg/dL Albumin 2.3 L (3.4-5.0) g/dL Vital Signs Temperature 35.7 C L 01/17/19 12:58 Temperature Source Tympanic 01/17/19 12:58 Pulse 76 01/17/19 12:58 Pulse Rhythm Regular 01/17/19 08:19 Pulse 89 01/15/19 15:20 Respiratory Rate 18 01/17/19 12:58 Respiratory Effort 01/17/19 08:19 Respiratory Depth Normal 01/17/19 08:19 Respiratory Pattern Normal 01/17/19 08:19 Blood Pressure 111/63 01/17/19 12:58 Blood Pressure Mean 80 01/15/19 15:16 Blood Pressure Position Sitting 01/15/19 10:17 Pulse Oximetry 99 01/17/19 12:58 Oxygen Delivery Method Nasal Cannula 01/17/19 12:58 Oxygen Flow Rate 2 01/17/19 12:58 Pain Level 6 01/17/19 12:58 Comment 01/17/19 12:58 Intake & Output 01/16/19 01/17/1919 23:59 11:59 23:59 Intake Total 1090 / 1680 1180 / 1180 Output Total 1200 / 1550 Balance -110 / 130 1180 / 1180 Weight 136.9 kg Intake: IV 130 / 480 380 / 380 Oral 960 / 1200 800 / 800 Output: Urine 1200 / 1550 Other: Urine Color Yellow Yellow Light [place] Urine Appearance Clear Clear Urine Odor Normal None Comment Patient voided 400 mL in the am. Stool Size Smear Stool Characteristics Hard Voiding Methods Bedside Commode Bedside Commode Laboratory Results WBC 23.58 k/cumm (4.4-10.8) H 01/17/19 09:15 RBC 2.80 m/cumm (4.00-5.20) L 01/17/19 09:15 Hgb 8.8 g/dL (12.0-15.5) L 01/17/19 09:15 Hct 29.2 % (36.0-46.0) L 01/17/19 09:15 MCV 104.3 fL (80-95) H 01/17/19 09:15 MCH 31.4 pg (27.0-33.0) 01/17/19 09:15 MCHC 30.1 g/dL (32.0-36.0) L 01/17/19 09:15 RDW 15.4 % (11.7-14.6) H 01/17/19 09:15 Plt Count x1000/uL (130-400) 01/17/19 09:15 MPV 9.9 fL (8.0-11.0) 01/17/19 09:15 Immature Gran % 0.4 01/17/19 09:15 Neutrophils % 93.7 01/17/19 09:15 Lymphocytes % 3.0 01/17/19 09:15 Monocytes % 2.2 01/17/19 09:15 Eosinophils % 0.6 01/17/19 09:15 Basophils % 0.1 01/17/19 09:15 Absolute Neutrophils 22.09 k/cumm (1.2-6.7) H 01/17/19 09:15 Absolute Lymphocytes 0.71 k/cumm (1.2-3.4) L 01/17/19 09:15 Absolute Monocytes 0.52 k/cumm (0.11-0.7) 05/09/19 09:15 Absolute Eosinophils 0.14 k/cumm (0.0-0.7) 01/17/19 09:15 Absolute Basophils 0.02 k/cumm (0.0-0.2) 01/17/19 09:15 Differential Comment Comment 01/17/19 09:15 RBC Morphology See below 01/17/19 09:15 Polychromasia Present 01/17/19 09:15 Hypochromasia 1+ 01/16/19 07:10 Poikilocytosis 1+ 01/17/19 09:15 Anisocytosis 2+ 01/17/19 09:15 Macrocytosis 1+ 01/17/19 09:15 Sodium 137 mmol/L (136-145) 01/17/19 09:15 Potassium 5.1 mmol/L (3.5-5.1) 01/17/19 09:15 Chloride 99 mmol/L (98-107) 01/17/19 09:15 Carbon Dioxide 23.9 mmol/L (21.0-32.0) 01/17/19 09:15 Anion Gap 14.1 mmol/L (3-11) H 01/17/19 09:15 BUN 41 mg/dL (7-18) H D 01/17/19 09:15 Creatinine 1.94 mg/dL (0.55-1.02) H 01/17/19 09:15 Estimated GFR/1.73 m2 25.82 (mL/min/1.73m2) 01/17/19 09:15 Glucose 319 mg/dL (70-100) H D 01/17/19 09:15 Calcium 8.8 mg/dL (8.5-10.1) 01/17/19 09:15 Magnesium 2.4 mg/dL (1.8-2.4) 01/16/19 07:10 Total Bilirubin 0.6 mg/dL (0.2-1.0) 01/16/19 07:10 Conjugated Bilirubin 0.16 mg/dL (0.00-0.20) 01/16/19 07:10 AST 19 U/L (15-37) 01/16/19 07:10 ALT 45 U/L (12-78) 01/16/19 07:10 Alkaline Phosphatase 83 U/L (46-116) 01/16/19 07:10 Troponin I 0.03 ng/mL (0.00-0.06) 01/16/19 00:17 NT-Pro-B Natriuret Pep 3219 pg/mL (-299) H 01/15/19 10:30 Total Protein 6.5 g/dL (6.4-8.2) 01/16/19 07:10 Albumin 2.3 g/dL (3.4-5.0) L 01/16/19 07:10 TSH 0.84 uIU/mL (0.358-3.74) 01/16/19 07:10 Vancomycin Trough 19.6 ug/mL (10.0-20.0) 01/17/19 11:20
--- NOTE | 2019-01-17 20:41 | PDOC.CMPRO ---
Care Management Progress Note S/O: Ann-Marie was lying in bed when CM met with her. She reported Dr. Mcmahon attempted to meet with her this morning, but Ann-Marie was sleeping. She asked CM to write on the board to wake her if Dr. Mcmahon returns; she reported looking forward to seeing her doctor and spoke highly of [facility]. CM reviewed discharge plan comprehensively; including living arrangements, equipment and services. Ann-Marie identified wanting to find a comfortable recliner for her daughter's home, but stated she had all needed DME including shower chair, walker, commode, grab rails and hand held shower. She reported the home is all one level. CM reviewed DME options for new O2 and encouraged Ann-Marie to talk to RT and her support system regarding which provider she would like to choose. Ann-Marie was fully engaged and pleasant in interaction. Anticipate she will remain inpatient for a few more days. CM will continue to follow. A: 68 year old female admitted 01/15/19 for HCAP, COPD Exacerbation, CHF, Acute Hypoxic Respiratory Failure P: CM will continue to discuss disposition and patient wishes with Ann-Marie and interdepartmental team. She will continue to work with PT/OT while inpatient. Anticipate a few more days of inpatient care for respiratory recovery per provider. Ann-Marie plans to discharge to her daughter's home in [place], [place]. Anticipate she will have new orders for home O2 (CM discussed DME options today for patient choice) as well as new orders for VNA RN, and PT.
[2019-01-17] MEDS: rOPINIRole 1 MG TAB 2 MG PO (21:33)
[2019-01-17] MEDS: Insulin Glargine 300 UNITS/3 ML PEN 10 UNITS SC (21:36)
[2019-01-18] VITALS (14 sets, daily range): BP systolic 94–128; BP diastolic 58–79; PULSE 55–69; RESP 1–18; TEMP 36.1–36.8; O2SAT 91–98
[2019-01-18] MEDS: PIPERACILLIN/TAZO 3.375 GM in Normal Saline 50 ML IVPB ×3 (03:48→20:42)
[2019-01-18] MEDS: Albuterol/Ipratropium 3 ML UPD VIAL UPD ×4 (06:00→23:57)
[2019-01-18] MEDS: Heparin 5,000 UNITS/ML VIAL 5000 UNITS SC ×3 (06:00→22:24)
[2019-01-18 07:26] LABS: Abs Immature Grans 0.05 k/cumm (0.0-0.09); Absolute Lymphocyte Count 0.56 k/cumm (1.2-3.4); HCT 25.6 % (36.0-46.0); HGB 7.5 g/dL (12.0-15.5); Immature Grans % 0.3; Lymphocytes % 3.1; Mean Corp. HGB Concentration 29.3 g/dL (32.0-36.0); Mean Corpuscular Hemoglobin 30.7 pg (27.0-33.0); Mean Corpuscular Volume 104.9 fL (80-95); Mean Platelet Volume 9.2 fL (8.0-11.0); Monocytes % 2.3; Neutrophils % 94.3; Platelet Count 609 x1000/uL (130-400); RBC 2.44 m/cumm (4.00-5.20); RBC Distribution Width 14.9 % (11.7-14.6); White Blood Cell Count 18.07 k/cumm (4.4-10.8)
[2019-01-18 07:30] LABS: Absolute Monocyte Count 0.42 k/cumm (0.11-0.7); Absolute Neutrophil Count 17.04 k/cumm (1.2-6.7)
[2019-01-18 07:38] LABS: Anion Gap 3.1 mmol/L (3-11); BUN 50 mg/dL (7-18); CO2 32.9 mmol/L (21.0-32.0); CREATININE 1.91 mg/dL (0.55-1.02); Calcium 8.3 mg/dL (8.5-10.1); Chloride 102 mmol/L (98-107); Estimated GFR 26.29 (mL/min/1.73m2); Glucose 306 mg/dL (70-100); Potassium 4.9 mmol/L (3.5-5.1); Sodium 138 mmol/L (136-145)
[2019-01-18] MEDS: Budesonide/Formoterol 160/4.5 6 GM 60 PUFF INH IH ×2 (08:01→20:42)
--- NOTE | 2019-01-18 08:47 | W.INDIABCONS ---
Date of service: 01/18/19 Time of Service: 08:47 Diabetes Inpatient Consult DESCRIPTION/ASSESSMENT: Appreciate diabetes consult for Ann-Marie Griggs who is hospitalized with Pneumonia. A1c 7.6 BMI 43 She has Victoza and glipizide at home. Here blood sugars are 207-361 presumably secondary to Prednisone 60mg q 8 hours. She receives moderate insulin correction and has had 10u Glargine added last evening. Blood sugar fasting today 306mg/dl. Met with her briefly. 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 EMR indicates visit with Pharmacist at [facility] as well. She reports high stress as her is not well, her dog is misbehaving and she voices general worry about being hospitalized at this time. INTERVENTION: Ann-Marie has had her blood sugars well managed with only 2 medications for some time. No intervention for self management at this time as she is seen elsewhere. For this hospitalization, suggest addition of NPH at time of steroid administration. Her calculated dose at .6 x weight in KG would be high given she is insulin naive. However current total daily dose of insulin is 34units yesterday. Suggest 20 units at each administration initially if she can tolerate additional injections, and follow blood sugars. PLAN: Suggest addition of NPH at 20units each administration of steroid Will follow blood sugars Time Spent in Nutritional Counseling and Treatment: 10 minutes face to face
[2019-01-18] MEDS: guaiFENesin 600 MG TABCR PO ×2 (08:56→20:42)
[2019-01-18] MEDS: Milk of Magnesia 30 ML CUP PO (08:56)
[2019-01-18] MEDS: Cyanocobalamin 500 MCG TAB 1000 MCG PO (08:56)
[2019-01-18] MEDS: DULoxetine 30 MG CAP 60 MG PO (08:57)
[2019-01-18] MEDS: Benzonatate 200 MG CAP PO ×3 (08:57→20:41)
[2019-01-18] MEDS: Ergocalciferol 50000 UNITS CAP PO (08:57)
[2019-01-18] MEDS: Aspirin E.C. 81 MG TABEC PO (08:57)
[2019-01-18] MEDS: Folic Acid 1 MG TAB PO (08:57)
[2019-01-18] MEDS: Atorvastatin 40 MG TAB PO (08:57)
[2019-01-18] MEDS: Metoprolol 50 MG TAB PO ×2 (08:58→20:42)
[2019-01-18] MEDS: Gabapentin 600 MG TAB PO ×3 (08:58→20:41)
[2019-01-18] MEDS: oxyCODONE 5 MG TAB PO ×4 (08:58→20:41)
[2019-01-18] MEDS: Allopurinol 100 MG TAB PO (08:59)
[2019-01-18] MEDS: Insulin Aspart 300 UNITS/3 ML PEN SC ×3 (09:00→16:35)
[2019-01-18] MEDS: Pantoprazole 40 MG VIAL IVP ×2 (09:00→20:42)
[2019-01-18] MEDS: Polyethylene Glycol 3350 17 GM PACKET PO (09:01)
[2019-01-18] MEDS: Normal Saline Flush 10 ML SYR IVP ×2 (09:02→20:43)
[2019-01-18] MEDS: methylPREDNISolone SUCC 125 MG VIAL 60 MG IVP (10:12)
--- NOTE | 2019-01-18 14:09 | CHAPLAIN ---
Ann-Marie was sitting up in her chair when I visited. She told me about her eventual plans to go home to her daughter's when she is feeling better. He (they are ) is on hospice at their home. Ann-Marie's son from [place] is arriving to help out too. Ann-Marie talked about all that's she's been through medically, and said she takes one day at a time. I left when a friend arrived to visit.
--- NOTE | 2019-01-18 16:34 | PHARADMIT ---
Addendum entered by Maya Greer 01/21/19 16:46: Pharmacy Note Subjective Objective VS-okay SCr-1.87 WBC-15.18 plt-767 BG-226 Assessment zosyn discontinued today due to plt count furosemide drip discontinued due to renal fxn/increasd SCr insulin glargine dose increased Plan continue to watch VS labs and for med changes Addendum entered by Tiffanie Haines 01/20/19 12:46: Pharmacy Note Subjective Coverage for HCAP due to recent hospitalization. Objective Assessment pip/tazo(day 4) continue, Glargine dose increased Plan Addendum entered by Tiffanie Haines 01/19/19 14:24: Pharmacy Note Subjective pt was recently at [facility] then [facility], but wants to return home with daughter on discharge Objective vs ok, WBC and SCr down, H/H 7.8/26.9 up a little Assessment pip/tazo(day 3) continue, insulin glargine dose increased, vancomycin stopped, furosemide x 1 today, steroid IV to PO today, Plan [employer] Victoza in Rx fridge Original Note: Admission Pharmacy Clinical Review HCAP,COPD,exacerbation, CHF,Acute Hypoxia,respiratory failure Code Status Full Code Current Weight Wgt-137.7 kg Renally Cleared and Narrow Therapeutic Index Meds CrCl~ 21.3 mL/min Meds-OK QTc Value / Action Taken QTc-420 na BP Control, Fever BP- 94/58 Tmax- 36.8C Electrolytes reviewed Na-138 K+4.9 Mag-2.4 DVT Prophylaxis Heparin, ASA Opiate Usage / Scheduled Bowel Regimen Ordered Yes Yes Plt/SCr for Heparin / Enoxaparin Plts-609 SCr-1.91 INR for Warfarin na H/H stable, WBC/Bands H&H- 7.5/25.6 WBC-18.07 Antibiotic appropriateness Zosyn, Vancomycin dc'd Cultures and Sensitivities Blood- no growth/48h, MRSA Nose-neg Surgical ABX d/c within 24 hr na DM control / Insulin Dosing BG-306 aspart,Lantus Heart Failure (Check EF%) (MARTIR's, B-Block, Diuretics) Lopressor IV to PO Switch No Home Meds Reviewed Yes Home Meds Not Ordered Celebrex,Lasix, Lisinopril, Victoza,GLIPIZIDE , Comments [employer] Victoza in Rx fridge
--- NOTE | 2019-01-18 17:11 | PT.INTREAT ---
Date of service: 01/18/19 Time of Service: 09:34 PT Notes Inpatient Physical Therapy Treatment Note [facility] Date: 01/18/2019 PRECAUTIONS: Fall. Standard. Median sternotomy precautions. SUBJECTIVE: Patient appeared perkier this morning and was able to do a bowel movement x1. Complains of no pain on sternotomy incision. She is agreeable to a PT session this morning OBJECTIVE: Patient seen resting in bed with HOB elevated to 30 degrees PAIN: Reports no pain on sternotomy incision. BED MOBILITY/TRANSFERS Rolling independent Supine to sit independent with head of bed between 30 to 45 degrees Sit to supine independent with bed placed at lowest level to allow for independent placement of BLE Sit to stand supervision with bed elevated at least 22 inches from floor to minimize excessive pushing on B UE and trunk bending Stand to sit supervision with bed elevated at least 22 inches from floor to for more controlled descent to comply with sternotomy precautions Bed to chair supervision with bed elevated at least 22 inches from floor to for more controlled descent to comply with sternotomy precautions Chair to bed supervision with bed elevated at least 22 inches from floor to for more controlled descent GAIT Assistive Device: FWW Weight bearing: WBAT with sternotomy precautions still in effect Assist: SBA Distance: 150 feet +30 feet Deviation: Gait velocity increasing, step height and length increasing, shortness of breath observed at the end of activity which resolved with rest VITALS: 95% to 97% 97 % on 2 L of oxygen and 67 bpm -71 bpm throughout gait activity ASSESSMENT: Patient demonstrating improved activity tolerance and endurance in performing level surface ambulation. Patient agreeable to using front wheeled walker to increase activity tolerance and minimize fatigue onset. PLAN: Continue with PT POC as initially established. Patient will benefit from home health PT services in order to maximize activity tolerance in preparation for phase 2 outpatient cardiac rehab participation. TREATMENT CODE/TIME: 65027? 2 beginning at 9:34 AM. PRECAUTIONS:[] SUBJECTIVE: [] OBJECTIVE: [] PAIN: [] BED MOBILITY/TRANSFERS Rolling L/R: [] Supine-sit: [] Sit-supine: [] Sit-stand: [] Stand-sit: [] Bed-Chair: [] Chair-bed: [] GAIT Assistive Device: [] Weight bearing: [] Assist: [] Distance: [] Deviation: [] VITALS: [] THEREX: [] STAIRS:[] ASSESSMENT: [] PLAN: [] TREATMENT CODE/TIME: []
--- NOTE | 2019-01-18 19:22 | PGE_ITS ---
Date of Service Date of service: 01/18/19 Time of Service: 19:07 Assessment and Plan (1) HAP (hospital-acquired pneumonia): Current visit: No Status: Acute Recent hospitalization at [facility] for CABG on 01/03/19, with subsequent transfer to [facility] and rehab. On presentation she was hypoxic with shortness of breath, productive cough, with leukocyosis and infiltrate noted on chest x-ray. Her shortness of breath is improving with the current treatment. She is no longer on IV Lasix. Her white blood cell count is improving. She continues to require oxygen. IV vanco discontinued yesterday as she did not have evidence of MRSA. Continue pip/tazo due to concern for hospital-acquired pneumonia. Transition to oral prednisone, continue scheduled nebulizer treatments with supplemental oxygen as well as mucinex. (2) S/P CABG (coronary artery bypass graft): Current visit: No Status: Acute CABG x3 vessel at [facility] on 01/03/19 s/p NSTEMI. Appeared to be a component of fluid overload on presentation. Echocardiogram on this admission shows LVEF 55-60%. Her creatinine is up again today. IV lasix discontinued yesterday. Hold lasix today in the setting of ZACHARY. Continue to monitor and add PRN lasix as needed. Continue oxycodone for postop pain. Continue to monitor on telemetry. (3) Anemia: Current visit: Yes Status: Chronic Hgb down to 7.5 today, has been around 8.1-8.8. Hematest stools. Continue to monitor hemoglobin and Hct. Continue PPI. Continue to monitor on telemetry. (4) Diabetes mellitus: Current visit: No Status: Chronic Hgb A1c 7.6. Fingersticks have been in the 200-300s. Continue to follow Blood glucose at & with sliding scale insulin. Lantus added last night. Hold oral diabetic agent. Continue ADA diet. Taper steroids. (5) Paroxysmal atrial fibrillation: Current visit: No Status: Chronic PINEDA removed during CABG, no longer on Xarelto. She has been monitored on telemetry, she was in a-fib, she previously had an episode of nonsustained VT. She remains in NSR today with rates in the 60-70s. Metoprolol dose increased to 50mg BID during this hospitalization. Continue to monitor on telemetry, adjust BB as needed.. (6) Essential hypertension: Current visit: No Status: Chronic Blood pressure stable. Continue metoprolol. Continue to monitor blood pressure. (7) Chronic obstructive lung disease: Current visit: No Status: Chronic Treat as above. (8) CKD (chronic kidney disease) stage 3, GFR 30-59 ml/min: Current visit: No Status: Acute Creatinine up again today in the setting of diuresis with IV lasix on admission and IV antibiotic therapy in a patient with CKD. Lasix and Vanco now discontinued. Continue to monitor renal function. (9) DVT prophylaxis: Current visit: No Status: Acute subcutaneous heparin. Hold if H&H continue to trend down and/or if stools Hemoccult positive. (10) Discharge planning issues: Current visit: No Status: Acute She is a full code. She was transferred from [facility] to [facility] and rehab. She continues to verbalize a desire to return home with her daughter when she is ready for discharge. She is working with PT/OT. Plan to discharge home when ready as long as she is safe. This case was discussed with Dr. Mims who is in agreement. Subjective Interval history since last seen: Ms Griggs reports feeling better today. She has no shortness of breath at rest. Mild shortness of breath with ambulation, she feels wheezy occasionally, she reports, I am still rattling. She continues to cough, her cough is nonproductive. She has mild incisional discomfort to her sternal incision when she coughs, otherwise no chest pain/pressure, palpitations. She continues to report edema in her right lower extremity. She reports eating and drinking well, she denies abdominal pain, nausea, vomiting or diarrhea. She had a small bowel movement today. Exam Narrative Exam Narrative: General: alert and oriented, pleasant and cooperative, sitting up in the recliner with her legs elevated, in no acute distress. HEENT: normocephalic, atraumatic, EOMI, pupils equal and round, mucous membranes moist. Neck: supple, no JVD. Cardiovascular: heart has regular rate and rhythm, no murmur appreciated. Chest: with midline sternal incision healing well, well approximated, no erythema, significant edema or active drainage. Respiratory: respirations even and unlabored, no shortness of breath while speaking in complete sentences, cough improving, lung sounds diminished throughout no wheezing or rales today. GI: abdomen soft, normoactive bowel sounds, nondistended, nontender on palpation. Extremities: LLE edema improved- TEDs on left. RLE with 1+ pitting edema- celeste wrap; incision distal to left knee, medially, healing well, well approximated without signs of infection. Pedal pulses palpable bilaterally. Objective Objective Clinical Data: Abnormal lab results 01/18/19 01/18/19 Range/Units 06:49 06:49 WBC 18.07 H (4.4-10.8) k/cumm RBC 2.44 L (4.00-5.20) m/cumm Hgb 7.5 L (12.0-15.5) g/dL Hct 25.6 L (36.0-46.0) % MCV 104.9 H (80-95) fL MCHC 29.3 L (32.0-36.0) g/dL RDW 14.9 H (11.7-14.6) % Plt Count 609 H (130-400) x1000/uL Absolute Neutrophils 17.04 H (1.2-6.7) k/cumm Absolute Lymphocytes 0.56 L (1.2-3.4) k/cumm Carbon Dioxide 32.9 H (21.0-32.0) mmol/L BUN 50 H D (7-18) mg/dL Creatinine 1.91 H (0.55-1.02) mg/dL Glucose 306 H (70-100) mg/dL Calcium 8.3 L (8.5-10.1) mg/dL Vital Signs Temperature 36.4 C L 01/18/19 16:02 Temperature Source Tympanic 01/18/19 16:02 Pulse 62 01/18/19 16:02 Pulse Rhythm Regular 01/18/19 15:34 Pulse 89 01/15/19 15:20 Respiratory Rate 18 01/18/19 16:02 Respiratory Effort Non-Labored 01/18/19 15:34 Respiratory Depth Normal 01/18/19 15:34 Respiratory Pattern Normal 01/18/19 15:34 Blood Pressure 94/58 L 01/18/19 16:02 Blood Pressure Mean 80 01/15/19 15:16 Blood Pressure Position Sitting 01/15/19 10:17 Pulse Oximetry 95 01/18/19 17:53 Oxygen Delivery Method Nasal Cannula 01/18/19 17:53 Oxygen Flow Rate 2 01/18/19 17:53 Pain Level 8 01/18/19 14:25 Comment 01/18/19 07:45 Intake & Output 01/17/19 01/18/19 01/18/19 23:59 11:59 23:59 Intake Total 1030.000 / 2210.000 500 / 1790 1290 / 1790 Output Total 650 / 650 600 / 1400 800 / 1400 Balance 380.000 / 1560.000 -100 / 390 490 / 390 Weight 137.7 kg Intake: IV 310.000 / 690.000 150 / 200 50 / 200 Oral 720 / 1520 350 / 1590 1240 / 1590 Output: Urine 650 / 650 600 / 1400 800 / 1400 Other: Urine Color Pale Straw Yellow Yellow Urine Appearance Clear Clear Clear Urine Odor None Normal Comment Patient voided 400 mL in the am. Stool Size Smear Stool Characteristics Soft Brown Voiding Methods Bedside Commode Bedside Commode Bedside Commode Laboratory Results WBC 18.07 k/cumm (4.4-10.8) H 01/18/19 06:49 RBC 2.44 m/cumm (4.00-5.20) L 01/18/19 06:49 Hgb 7.5 g/dL (12.0-15.5) L 01/18/19 06:49 Hct 25.6 % (36.0-46.0) L 01/18/19 06:49 MCV 104.9 fL (80-95) H 01/18/19 06:49 MCH 30.7 pg (27.0-33.0) 01/18/19 06:49 MCHC 29.3 g/dL (32.0-36.0) L 01/18/19 06:49 RDW 14.9 % (11.7-14.6) H 01/18/19 06:49 Plt Count 609 x1000/uL (130-400) H 01/18/19 06:49 MPV 9.2 fL (8.0-11.0) 01/18/19 06:49 Immature Gran % 0.3 01/18/19 06:49 Neutrophils % 94.3 01/18/19 06:49 Lymphocytes % 3.1 01/18/19 06:49 Monocytes % 2.3 01/18/19 06:49 Eosinophils % 0.0 01/18/19 06:49 Basophils % 0.0 01/18/19 06:49 Absolute Neutrophils 17.04 k/cumm (1.2-6.7) H 01/18/19 06:49 Absolute Lymphocytes 0.56 k/cumm (1.2-3.4) L 01/18/19 06:49 Absolute Monocytes 0.42 k/cumm (0.11-0.7) 01/18/19 06:49 Absolute Eosinophils 0.00 k/cumm (0.0-0.7) 01/18/19 06:49 Absolute Basophils 0.00 k/cumm (0.0-0.2) 01/18/19 06:49 Differential Comment Comment 01/17/19 09:15 RBC Morphology See below 01/17/19 09:15 Polychromasia Present 01/17/19 09:15 Hypochromasia 1+ 01/16/19 07:10 Poikilocytosis 1+ 01/17/19 09:15 Anisocytosis 2+ 01/17/19 09:15 Macrocytosis 1+ 01/17/19 09:15 Sodium 138 mmol/L (136-145) 01/18/19 06:49 Potassium 4.9 mmol/L (3.5-5.1) 01/18/19 06:49 Chloride 102 mmol/L (98-107) 01/18/19 06:49 Carbon Dioxide 32.9 mmol/L (21.0-32.0) H 01/18/19 06:49 Anion Gap 3.1 mmol/L (3-11) 01/18/19 06:49 BUN 50 mg/dL (7-18) H D 01/18/19 06:49 Creatinine 1.91 mg/dL (0.55-1.02) H 01/18/19 06:49 Estimated GFR/1.73 m2 26.29 (mL/min/1.73m2) 01/18/19 06:49 Glucose 306 mg/dL (70-100) H 01/18/19 06:49 Calcium 8.3 mg/dL (8.5-10.1) L 01/18/19 06:49 Magnesium 2.4 mg/dL (1.8-2.4) 01/16/19 07:10 Total Bilirubin 0.6 mg/dL (0.2-1.0) 01/16/19 07:10 Conjugated Bilirubin 0.16 mg/dL (0.00-0.20) 01/16/19 07:10 AST 19 U/L (15-37) 01/16/19 07:10 ALT 45 U/L (12-78) 01/16/19 07:10 Alkaline Phosphatase 83 U/L (46-116) 01/16/19 07:10 Troponin I 0.03 ng/mL (0.00-0.06) 01/16/19 00:17 NT-Pro-B Natriuret Pep 3219 pg/mL (-299) H 01/15/19 10:30 Total Protein 6.5 g/dL (6.4-8.2) 01/16/19 07:10 Albumin 2.3 g/dL (3.4-5.0) L 01/16/19 07:10 TSH 0.84 uIU/mL (0.358-3.74) 01/16/19 07:10 Vancomycin Trough 19.6 ug/mL (10.0-20.0) 01/17/19 11:20
[2019-01-18] MEDS: Insulin Glargine 300 UNITS/3 ML PEN 10 UNITS SC (22:23)
[2019-01-18] MEDS: rOPINIRole 1 MG TAB 2 MG PO (22:23)
[2019-01-19] VITALS (12 sets, daily range): BP systolic 117–153; BP diastolic 70–83; PULSE 55–80; RESP 1–20; TEMP 36.4–36.8; O2SAT 94–97
[2019-01-19] MEDS: PIPERACILLIN/TAZO 3.375 GM in Normal Saline 50 ML IVPB ×3 (04:22→19:49)
[2019-01-19] MEDS: Heparin 5,000 UNITS/ML VIAL 5000 UNITS SC ×3 (05:47→21:43)
[2019-01-19] MEDS: Albuterol/Ipratropium 3 ML UPD VIAL UPD ×4 (05:47→23:40)
[2019-01-19 07:20] LABS: HCT 26.9 % (36.0-46.0); HGB 7.8 g/dL (12.0-15.5); Mean Corpuscular Hemoglobin 30.4 pg (27.0-33.0); Mean Corpuscular Volume 104.7 fL (80-95); Mean Platelet Volume 9.7 fL (8.0-11.0); Platelet Count 589 x1000/uL (130-400); RBC 2.57 m/cumm (4.00-5.20); RBC Distribution Width 14.4 % (11.7-14.6); White Blood Cell Count 16.08 k/cumm (4.4-10.8)
[2019-01-19 07:30] LABS: Anion Gap 4.3 mmol/L (3-11); BUN 42 mg/dL (7-18); CO2 28.7 mmol/L (21.0-32.0); CREATININE 1.38 mg/dL (0.55-1.02); Calcium 7.1 mg/dL (8.5-10.1); Chloride 108 mmol/L (98-107); Estimated GFR 38.25 (mL/min/1.73m2); Glucose 215 mg/dL (70-100); Potassium 4.1 mmol/L (3.5-5.1); Sodium 141 mmol/L (136-145)
[2019-01-19] MEDS: predniSONE 20 MG TAB 60 MG PO (08:07)
[2019-01-19] MEDS: Benzonatate 200 MG CAP PO ×3 (08:07→19:48)
[2019-01-19] MEDS: Atorvastatin 40 MG TAB PO (08:07)
[2019-01-19] MEDS: guaiFENesin 600 MG TABCR PO ×2 (08:07→19:48)
[2019-01-19] MEDS: DULoxetine 30 MG CAP 60 MG PO (08:07)
[2019-01-19] MEDS: Cyanocobalamin 500 MCG TAB 1000 MCG PO (08:08)
[2019-01-19] MEDS: Allopurinol 100 MG TAB PO (08:08)
[2019-01-19] MEDS: Pantoprazole 40 MG VIAL IVP ×2 (08:08→19:47)
[2019-01-19] MEDS: Folic Acid 1 MG TAB PO (08:08)
[2019-01-19] MEDS: Metoprolol 50 MG TAB PO ×2 (08:08→19:48)
[2019-01-19] MEDS: Aspirin E.C. 81 MG TABEC PO (08:08)
[2019-01-19] MEDS: Gabapentin 600 MG TAB PO ×3 (08:08→19:47)
[2019-01-19] MEDS: Polyethylene Glycol 3350 17 GM PACKET PO (08:08)
[2019-01-19] MEDS: Normal Saline Flush 10 ML SYR IVP ×3 (08:09→19:49)
[2019-01-19] MEDS: Insulin Aspart 300 UNITS/3 ML PEN SC ×3 (08:09→17:01)
[2019-01-19] MEDS: Budesonide/Formoterol 160/4.5 6 GM 60 PUFF INH IH ×2 (09:00→19:48)
[2019-01-19 09:30] LABS: Magnesium 2.2 mg/dL (1.8-2.4)
[2019-01-19] MEDS: Furosemide 40 MG/4 ML VIAL IVP (10:22)
[2019-01-19] MEDS: Calcium 600mg/Vit D 200U TAB 2 TAB PO ×2 (10:22→19:48)
--- NOTE | 2019-01-19 12:07 | W.PM.PROGNOT ---
Date of Service Date of service: 01/19/19 Time of Service: 12:07 Assessment and Plan (1) HAP (hospital-acquired pneumonia): Start date: 01/19/19 Start time: 12:15 Current visit: No Status: Acute Recent hospitalization [place] [facility] [place] 01/03/19, with subsequent transfer to [facility] and rehab. On presentation she was hypoxic with shortness of breath, productive cough, with leukocyosis improving. She is on steroids, continue nebs, antibiotics day 3 and ICS. Coverage for HCAP due tot recent hospitalization. (2) S/P CABG (coronary artery bypass graft): Start date: 01/19/19 Start time: 12:17 Current visit: No Status: Acute CABG x3 vessel at [facility] [place] 01/03[place] s/p NSTEMI. Appeared to be a component of fluid overload on presentation. Echocardiogram on this admission shows LVEF 55-60%. Her creatinine is up again today. IV lasix discontinued yesterday. Given one dose of 40 mg lasix IV with symptoms of +JVD, crackles and +2 edema to RLE, monitor creatinine and BUN in setting of acute on chronic ZACHARY (3) Anemia: Start date: 01/19/19 Start time: 12:20 Current visit: No Status: Chronic Hgb up to 7.8 today, has been around 8.1-8.8. Hematest stools. Continue to monitor hemoglobin and Hct. Continue PPI. Continue to monitor on telemetry. (4) Diabetes mellitus: Start date: 01/19/19 Start time: 12:21 Current visit: No Status: Chronic Hgb A1c 7.6. Fingersticks have been in the 200-300s. Continue to follow Blood glucose at & with sliding scale insulin. Lantus added last night increased to 13 units today with BGL 215 by am labs. Hold oral diabetic agent. Continue ADA diet. Taper steroids. (5) Paroxysmal atrial fibrillation: Start date: 01/19/19 Start time: 12:21 Current visit: No Status: Chronic PINEDA removed during CABG, no longer on Xarelto. She has been monitored on telemetry, she was in a-fib, she previously had an episode of nonsustained VT. She remains in NSR today with rates in the 50-70. Metoprolol dose increased to 50mg BID during this hospitalization. Continue to monitor on telemetry, adjust BB as needed.. (6) Essential hypertension: Start date: 01/19/19 Start time: 12:22 Current visit: No Status: Chronic Blood pressure stable. Continue metoprolol. Continue to monitor blood pressure. (7) Chronic obstructive lung disease: Start date: 01/19/19 Start time: 12:24 Current visit: No Status: Chronic Treat as above. (8) CKD (chronic kidney disease) stage 3, GFR 30-59 ml/min: Current visit: No Status: Acute Creatinine improved today to 1.38, did have to given a dose of lasix based on symptoms of fluid overload. Continue to monitor. (9) DVT prophylaxis: Start date: 01/19/19 Start time: 12:25 Current visit: No Status: Acute subcutaneous heparin. Hold if H&H continue to trend down and/or if stools Hemoccult positive. (10) Discharge planning issues: Start date: 01/19/19 Start time: 12:25 Current visit: No Status: Acute She is a full code. She was [place] from [facility] [place] [facility] and rehab. She continues to verbalize a desire to return home with her daughter when she is ready for discharge. She is working with PT/OT. Plan to discharge home when ready as long as she is safe. Subjective Patient reports: other Interval history since last seen: Ms. Griggs is feeling better. She does have +2 edema to RLE with crackle and +JVD to right side. Her BUN and creatinine are slightly elevated but improving. She is getting a 40 mg dose of lasix given fluid overload symptoms with history of 3 vessel CABG recently, and we will monitor her BUN/creatinine closely. She has not had a BM in a couple of days. Senokot ordered. Telemetry is showing sinus rhythm to sinus geraldine, continue to monitor. She does endorse pleuretic chest pain when coughing and she does have a recent incision that she states hurts when coughing no chest pain otherwise SOB with excertion but this is not new and given her recent CABG she will need to go home on oxygen. Continue nebs, antibiotics, albuterol and steroids. Exam Narrative Exam Narrative: General: alert and oriented, pleasant and cooperative, sitting up in the recliner with her legs elevated, in no acute distress. HEENT: normocephalic, atraumatic, EOMI, pupils equal and round, mucous membranes moist. Neck: supple, + JVD. Cardiovascular: heart has regular rate and rhythm, no murmur appreciated. Chest: with midline sternal incision healing well, well approximated, no erythema, significant edema or active drainage. Respiratory: respirations even and unlabored, no shortness of breath while speaking in complete sentences, cough improving, lung sounds diminished throughout no wheezing or rales today does have crackles bilateral bases GI: abdomen soft, normoactive bowel sounds, nondistended, nontender on palpation. Extremities: LLE edema improved- TEDs on left. RLE with 2+ pitting edema; incision distal to left knee, medially, healing well, well approximated without signs of infection. Pedal pulses palpable bilaterally. Objective Objective Clinical Data: Abnormal lab results 01/19/19 01/19/19 Range/Units 06:20 06:20 WBC 16.08 H (4.4-10.8) k/cumm RBC 2.57 L (4.00-5.20) m/cumm Hgb 7.8 L (12.0-15.5) g/dL Hct 26.9 L (36.0-46.0) % MCV 104.7 H (80-95) fL MCHC 29.0 L (32.0-36.0) g/dL Plt Count 589 H (130-400) x1000/uL Chloride 108 H (98-107) mmol/L BUN 42 H (7-18) mg/dL Creatinine 1.38 H (0.55-1.02) mg/dL Glucose 215 H D (70-100) mg/dL Calcium 7.1 L (8.5-10.1) mg/dL Vital Signs Temperature 36.5 C 01/19/19 07:30 Temperature Source Tympanic 01/19/19 07:30 Pulse 79 01/19/19 07:30 Pulse Rhythm Regular 01/19/19 07:56 Pulse 89 01/15/19 15:20 Respiratory Rate 20 01/19/19 07:30 Respiratory Effort Non-Labored 01/19/19 07:56 Respiratory Depth Normal 01/19/19 07:56 Respiratory Pattern Normal 01/19/19 07:56 Blood Pressure 153/82 H 01/19/19 07:30 Blood Pressure Mean 80 01/15/19 15:16 Blood Pressure Position Sitting 01/15/19 10:17 Pulse Oximetry 97 01/19/19 07:30 Oxygen Delivery Method Nasal Cannula 01/19/19 07:30 Oxygen Flow Rate 2 01/19/19 07:30 Pain Level 0 01/19/19 07:30 Comment 01/18/19 07:45 Intake & Output 01/18/19 01/19/19 01/19/19 23:59 11:59 23:59 Intake Total 1290 / 1790 580 / 580 Output Total 800 / 1400 1000 / 1000 Balance 490 / 390 -420 / -420 Weight 138.516 kg Intake: IV 50 / 200 100 / 100 Oral 1240 / 1590 480 / 480 Output: Urine 800 / 1400 1000 / 1000 Other: Urine Color Yellow Light [place] Urine Appearance Clear Clear Urine Odor Normal Voiding Methods Bedside Commode Bedside Commode Laboratory Results WBC 16.08 k/cumm (4.4-10.8) H 01/19/19 06:20 RBC 2.57 m/cumm (4.00-5.20) L 01/19/19 06:20 Hgb 7.8 g/dL (12.0-15.5) L 01/19/19 06:20 Hct 26.9 % (36.0-46.0) L 01/19/19 06:20 MCV 104.7 fL (80-95) H 01/19/19 06:20 MCH 30.4 pg (27.0-33.0) 01/19/19 06:20 MCHC 29.0 g/dL (32.0-36.0) L 01/19/19 06:20 RDW 14.4 % (11.7-14.6) 01/19/19 06:20 Plt Count 589 x1000/uL (130-400) H 01/19/19 06:20 MPV 9.7 fL (8.0-11.0) 01/19/19 06:20 Immature Gran % 0.3 01/18/19 06:49 Neutrophils % 94.3 01/18/19 06:49 Lymphocytes % 3.1 01/18/19 06:49 Monocytes % 2.3 01/18/19 06:49 Eosinophils % 0.0 01/18/19 06:49 Basophils % 0.0 01/18/19 06:49 Absolute Neutrophils 17.04 k/cumm (1.2-6.7) H 01/18/19 06:49 Absolute Lymphocytes 0.56 k/cumm (1.2-3.4) L 01/18/19 06:49 Absolute Monocytes 0.42 k/cumm (0.11-0.7) 01/18/19 06:49 Absolute Eosinophils 0.00 k/cumm (0.0-0.7) 01/18/19 06:49 Absolute Basophils 0.00 k/cumm (0.0-0.2) 01/18/19 06:49 Differential Comment Comment 01/17/19 09:15 RBC Morphology See below 01/17/19 09:15 Polychromasia Present 01/17/19 09:15 Hypochromasia 1+ 01/16/19 07:10 Poikilocytosis 1+ 01/17/19 09:15 Anisocytosis 2+ 01/17/19 09:15 Macrocytosis 1+ 01/17/19 09:15 Sodium 141 mmol/L (136-145) 01/19/19 06:20 Potassium 4.1 mmol/L (3.5-5.1) 01/19/19 06:20 Chloride 108 mmol/L (98-107) H 01/19/19 06:20 Carbon Dioxide 28.7 mmol/L (21.0-32.0) 01/19/19 06:20 Anion Gap 4.3 mmol/L (3-11) 01/19/19 06:20 BUN 42 mg/dL (7-18) H 01/19/19 06:20 Creatinine 1.38 mg/dL (0.55-1.02) H 01/19/19 06:20 Estimated GFR/1.73 m2 38.25 (mL/min/1.73m2) 01/19/19 06:20 Glucose 215 mg/dL (70-100) H D 01/19/19 06:20 Calcium 7.1 mg/dL (8.5-10.1) L 01/19/19 06:20 Magnesium 2.2 mg/dL (1.8-2.4) 01/19/19 06:20 Total Bilirubin 0.6 mg/dL (0.2-1.0) 01/16/19 07:10 Conjugated Bilirubin 0.16 mg/dL (0.00-0.20) 01/16/19 07:10 AST 19 U/L (15-37) 01/16/19 07:10 ALT 45 U/L (12-78) 01/16/19 07:10 Alkaline Phosphatase 83 U/L (46-116) 01/16/19 07:10 Troponin I 0.03 ng/mL (0.00-0.06) 01/16/19 00:17 NT-Pro-B Natriuret Pep 3219 pg/mL (-299) H 01/15/19 10:30 Total Protein 6.5 g/dL (6.4-8.2) 01/16/19 07:10 Albumin 2.3 g/dL (3.4-5.0) L 01/16/19 07:10 TSH 0.84 uIU/mL (0.358-3.74) 01/16/19 07:10 Vancomycin Trough 19.6 ug/mL (10.0-20.0) 01/17/19 11:20
--- NOTE | 2019-01-19 12:32 | PT.INNT ---
Date of service: 01/19/19 Time of Service: 12:33 PT Notes 01/19/2019 Patient sleeping and not available for participating in PT session. Will attempt to resume PT services tomorrow morning.
[2019-01-19] MEDS: Senna TAB 1 TAB PO (12:51)
[2019-01-19] MEDS: oxyCODONE 5 MG TAB PO ×3 (15:48→21:42)
--- NOTE | 2019-01-19 18:12 | CMPROGNOTE_ITS ---
Care Management Progress Note S/O: Ann-Marie remains pleasant in interaction and forthcoming with information. No change to overall plan. CM will continue to follow. A: 68 year old female admitted 01/15/19 for HCAP, COPD Exacerbation, CHF, Acute Hypoxic Respiratory Failure P: Ann-Marie plans to discharge to her daughter's home in [place], [place]. Anticipate she will have new orders for home O2, as well as new orders for VNA RN, and PT. Ann-Marie will continue to work with PT/OT while inpatient, she reports having all needed DME including shower chair, walker, commode, grab rails and hand held shower. She states her daughter's home is all one level. Anticipate a few more days of inpatient care for respiratory recovery per provider.
[2019-01-19] MEDS: rOPINIRole 1 MG TAB 2 MG PO (21:42)
[2019-01-19] MEDS: Insulin Glargine 300 UNITS/3 ML PEN 13 UNITS SC (21:43)
[2019-01-20] VITALS (12 sets, daily range): BP systolic 110–134; BP diastolic 64–79; PULSE 66–80; RESP 2–20; TEMP 36.4–36.7; O2SAT 93–97
[2019-01-20] MEDS: PIPERACILLIN/TAZO 3.375 GM in Normal Saline 50 ML IVPB ×3 (04:12→19:54)
[2019-01-20] MEDS: Normal Saline 500 ML 10 ML IV (04:16)
[2019-01-20] MEDS: Albuterol/Ipratropium 3 ML UPD VIAL UPD ×2 (06:08→12:56)
[2019-01-20] MEDS: Heparin 5,000 UNITS/ML VIAL 5000 UNITS SC ×3 (06:08→22:16)
[2019-01-20] MEDS: Allopurinol 100 MG TAB PO (08:15)
[2019-01-20] MEDS: guaiFENesin 600 MG TABCR PO ×2 (08:15→19:55)
[2019-01-20] MEDS: Metoprolol 50 MG TAB PO ×2 (08:15→19:55)
[2019-01-20] MEDS: Cyanocobalamin 500 MCG TAB 1000 MCG PO (08:15)
[2019-01-20] MEDS: DULoxetine 30 MG CAP 60 MG PO (08:15)
[2019-01-20] MEDS: predniSONE 20 MG TAB 60 MG PO (08:15)
[2019-01-20] MEDS: Folic Acid 1 MG TAB PO (08:15)
[2019-01-20] MEDS: Aspirin E.C. 81 MG TABEC PO (08:15)
[2019-01-20] MEDS: Calcium 600mg/Vit D 200U TAB 2 TAB PO ×2 (08:15→19:55)
[2019-01-20] MEDS: Atorvastatin 40 MG TAB PO (08:15)
[2019-01-20] MEDS: Benzonatate 200 MG CAP PO ×3 (08:15→19:55)
[2019-01-20] MEDS: Gabapentin 600 MG TAB PO ×3 (08:15→19:55)
[2019-01-20] MEDS: Normal Saline Flush 10 ML SYR IVP ×2 (08:16→19:54)
[2019-01-20] MEDS: Pantoprazole 40 MG VIAL IVP ×2 (08:16→19:54)
[2019-01-20] MEDS: Polyethylene Glycol 3350 17 GM PACKET PO (08:16)
[2019-01-20] MEDS: Insulin Aspart 300 UNITS/3 ML PEN SC ×3 (08:19→16:51)
[2019-01-20 08:43] LABS: Abs Immature Grans 0.05 k/cumm (0.0-0.09); Absolute Basophil Count 0.01 k/cumm (0.0-0.2); Absolute Eosinophil Count 0.47 k/cumm (0.0-0.7); Absolute Lymphocyte Count 2.07 k/cumm (1.2-3.4); Absolute Monocyte Count 1.24 k/cumm (0.11-0.7); Absolute Neutrophil Count 10.45 k/cumm (1.2-6.7); Basophils % 0.1; Eosinophils % 3.3; HCT 29.2 % (36.0-46.0); HGB 8.8 g/dL (12.0-15.5); Immature Grans % 0.3; Lymphocytes % 14.5; Mean Corp. HGB Concentration 30.1 g/dL (32.0-36.0); Mean Corpuscular Hemoglobin 30.9 pg (27.0-33.0); Mean Corpuscular Volume 102.5 fL (80-95); Monocytes % 8.7; Neutrophils % 73.1; Platelet Count 671 x1000/uL (130-400); RBC 2.85 m/cumm (4.00-5.20); RBC Distribution Width 14.3 % (11.7-14.6); White Blood Cell Count 14.29 k/cumm (4.4-10.8)
[2019-01-20 09:04] LABS: Anion Gap 4.9 mmol/L (3-11); BUN 47 mg/dL (7-18); CO2 35.1 mmol/L (21.0-32.0); CREATININE 1.62 mg/dL (0.55-1.02); Calcium 8.3 mg/dL (8.5-10.1); Chloride 101 mmol/L (98-107); Estimated GFR 31.79 (mL/min/1.73m2); Glucose 206 mg/dL (70-100); Magnesium 2.3 mg/dL (1.8-2.4); Potassium 4.5 mmol/L (3.5-5.1); Sodium 141 mmol/L (136-145)
[2019-01-20 09:07] LABS: NT-proBNP 4944 pg/mL
[2019-01-20] MEDS: Budesonide/Formoterol 160/4.5 6 GM 60 PUFF INH IH ×2 (09:50→19:55)
--- NOTE | 2019-01-20 11:09 | PGE_ITS ---
Date of Service Date of service: 01/20/19 Time of Service: 11:08 Assessment and Plan (1) HAP (hospital-acquired pneumonia): Start date: 01/20/19 Start time: 11:19 Current visit: No Status: Acute Recent hospitalization at [facility] for CABG on 01/03/19, with subsequent transfer to [facility] and rehab. On presentation she was hypoxic with shortness of breath, productive cough, with leukocytosis improving.Oxygenation improving 96% on 2 L, wean down. She is on steroids, continue nebs, antibiotics day 4 and ICS. Coverage for HCAP due to recent hospitalization. (2) S/P CABG (coronary artery bypass graft): Start date: 01/20/19 Current visit: No Status: Acute CABG x3 vessel at [facility] on 01/03/19 s/p NSTEMI. Appeared to be a component of fluid overload on presentation. Echocardiogram on this admission shows LVEF 55-60%. Showing clinical symptoms of fluid overload, +JVD, 2+ pitting edema, crackles to bilateral bases. Given a dose of 40 mg IVP lasix yesterday resulting in an increase in her creatinine and BUN today. Today she looks clinically more overloaded though she states she feels better, started on a lasix drip at 5 mg/hr given her ZACHARY, with gonzalez insertion. Monitor BUN/Creatinine, daily weights, strict I/O. Titrate as needed. (3) Anemia: Start date: 01/20/19 Start time: 11:23 Current visit: No Status: Chronic Hgb up to 8.8 today, has been around 8.1-8.8. Hematest stools negative. Continue to monitor hemoglobin and Hct. Continue PPI. Continue to monitor on telemetry. SR on telemetry in 70-80's. (4) Diabetes mellitus: Start date: 01/20/19 Start time: 11:24 Current visit: No Status: Chronic Hgb A1c 7.6. Fingersticks have been in the 200-300s. Continue to follow Blood glucose at &HS with sliding scale insulin. Lantus added last night increased to 18 units today with BGL 206 by am labs. Hold oral diabetic agent. Continue ADA diet. Taper steroids. (5) Paroxysmal atrial fibrillation: Start date: 01/20/19 Start time: 11:24 Current visit: No Status: Chronic PINEDA removed during CABG, no longer on Xarelto. She has been monitored on telemetry, she was in a-fib, she previously had an episode of nonsustained [place]. She remains in NSR today with rates in the 50-70. Metoprolol dose increased to 50mg BID during this hospitalization. Continue to monitor on telemetry, adjust BB as needed.. (6) Essential hypertension: Start date: 01/20/19 Start time: 11:25 Current visit: No Status: Chronic Blood pressure stable. Continue metoprolol. Continue to monitor blood pressure. (7) Chronic obstructive lung disease: Start date: 01/20/19 Start time: 11:25 Current visit: No Status: Chronic Treat as above. (8) CKD (chronic kidney disease) stage 3, GFR 30-59 ml/min: Start date: 01/20/19 Start time: 11:26 Current visit: No Status: Acute Creatinine increased to 1.62 today after dose of lasix yesterday. Normal range for creatinine trends around 1.31, started on lasix gtt, see above, continue to monitor BUN, Creatinine. (9) DVT prophylaxis: Start date: 01/20/19 Start time: 11:27 Current visit: No Status: Acute subcutaneous heparin. Hold if H&H continue to trend down and/or if stools Hemoccult positive. (10) Discharge planning issues: Start date: 01/20/19 Start time: 11:27 Current visit: No Status: Acute She is a full code. She was transferred from [facility] to [facility] and rehab. She continues to verbalize a desire to return home with her daughter when she is ready for discharge. She is working with PT/OT. Plan to discharge home when ready as long as she is safe. Subjective Patient reports: other Interval history since last seen: Mrs. Griggs is having symptoms of fluid overload. 2+ pitting edema, crackles, +JVD with an elevation in her BNP since admission increased to 4944 from 3219. She also has an increased weight gain to 138.998 from 136.9 on the 9th. She was given a 40 mg dose of lasix yesterday and her creatinine and BUN increased. Her telemetry is showing sinus rhythm in 70- 80's. Clinically she is looking and sound volume overloaded. A lasix drip has been ordered at 5 mg/hr with monitoring and gonzalez for strict I/O. We will monitor her BUN/Creatinine, weights and I/O output daily. Titrate as needed. Otherwise she feels well. Her breathing is better despite having crackles. She is currently on 2 L at 96%. She is able to move out of bed to chair with SCHREIBER but improving. Her incision to her chest from previous incision is approximated without erythema, slight edema around wound. She does have a harsh productive cough but no sputum production. She is currently on day 4 of zosyn for HCAP. Steroids have been weaned down in since there is no wheezing, rhonchi or rales. Continue mucinex, nebs, steroids. She denies chest pain, nausea, vomiting and worsening shortness of breath. She does have an elevated WBC likely with steroid use, she is afebrile. Exam Narrative Exam Narrative: General: alert and oriented, pleasant and cooperative, sitting up in the recliner with her legs elevated, in no acute distress. HEENT: normocephalic, atraumatic, EOMI, pupils equal and round, mucous membranes moist. Neck: supple, + JVD. Cardiovascular: heart has regular rate and rhythm, no murmur appreciated. Chest: with midline sternal incision healing well, well approximated, no erythema, significant edema or active drainage. Respiratory: respirations even and unlabored, no shortness of breath while speaking in complete sentences, cough improving, lung sounds diminished throughout no wheezing or rales today does have crackles bilateral bases GI: abdomen soft, normoactive bowel sounds, nondistended, nontender on palpation. Extremities: LLE edema improved- TEDs. Left leg with 1-2+ pitting edema RLE with 2+ pitting edema; incision distal to left knee, medially, healing well, well approximated without signs of infection. Pedal pulses palpable bilaterally. Objective Objective Clinical Data: Abnormal lab results 01/20/19 01/20/19 01/20/19 Range/Units 08:30 08:30 08:30 WBC 14.29 H (4.4-10.8) k/cumm RBC 2.85 L (4.00-5.20) m/cumm Hgb 8.8 L (12.0-15.5) g/dL Hct 29.2 L (36.0-46.0) % MCV 102.5 H (80-95) fL MCHC 30.1 L (32.0-36.0) g/dL Plt Count 671 H (130-400) x1000/uL Absolute Neutrophils 10.45 H (1.2-6.7) k/cumm Absolute Monocytes 1.24 H (0.11-0.7) k/cumm Carbon Dioxide 35.1 H (21.0-32.0) mmol/L BUN 47 H (7-18) mg/dL Creatinine 1.62 H (0.55-1.02) mg/dL Glucose 206 H (70-100) mg/dL Calcium 8.3 L (8.5-10.1) mg/dL NT-Pro-B Natriuret Pep 4944 H ( - 299) pg/mL Vital Signs Temperature 36.7 C 01/20/19 07:30 Temperature Source Tympanic 01/20/19 07:30 Pulse 80 01/20/19 08:47 Pulse Rhythm Regular 01/20/19 08:24 Pulse 89 01/15/19 15:20 Respiratory Rate 18 01/20/19 07:30 Respiratory Effort Non-Labored 01/20/19 08:24 Respiratory Depth Normal 01/20/19 08:24 Respiratory Pattern Normal 01/20/19 08:24 Blood Pressure 134/71 01/20/19 07:30 Blood Pressure Mean 80 01/15/19 15:16 Blood Pressure Position Sitting 01/15/19 10:17 Pulse Oximetry 97 01/20/19 07:30 Oxygen Delivery Method Nasal Cannula 01/20/19 07:30 Oxygen Flow Rate 2 01/20/19 07:30 Pain Level 6 01/20/19 07:30 Comment 01/18/19 07:45 Intake & Output 01/19/19 01/19/19 01/20/19 11:59 23:59 11:59 Intake Total 620 / 1240 620 / 1240 290.667 / 290.667 Output Total 1250 / 2800 1550 / 2800 1050 / 1050 Balance -630 / -1560 -930 / -1560 -759.333 / -759.333 Weight 138.516 kg 138.998 kg Intake: IV 140 / 280 140 / 280 50.667 / 50.667 Oral 480 / 960 480 / 960 240 / 240 Output: Urine 1250 / 2800 1550 / 2800 1050 / 1050 Other: Urine Color Yellow Yellow Yellow Urine Appearance Clear Clear Clear Urine Odor Normal Normal Comment documented amount between two voids, there was urine in the commode. Stool Size Large Stool Characteristics Hard Voiding Methods Bedside Commode Bedside Commode Bedside Commode Laboratory Results WBC 14.29 k/cumm (4.4-10.8) H 01/20/19 08:30 RBC 2.85 m/cumm (4.00-5.20) L 01/20/19 08:30 Hgb 8.8 g/dL (12.0-15.5) L 01/20/19 08:30 Hct 29.2 % (36.0-46.0) L 01/20/19 08:30 MCV 102.5 fL (80-95) H 01/20/19 08:30 MCH 30.9 pg (27.0-33.0) 01/20/19 08:30 MCHC 30.1 g/dL (32.0-36.0) L 01/20/19 08:30 RDW 14.3 % (11.7-14.6) 01/20/19 08:30 Plt Count 671 x1000/uL (130-400) H 01/20/19 08:30 MPV 9.0 fL (8.0-11.0) 01/20/19 08:30 Immature Gran % 0.3 01/20/19 08:30 Neutrophils % 73.1 01/20/19 08:30 Lymphocytes % 14.5 01/20/19 08:30 Monocytes % 8.7 01/20/19 08:30 Eosinophils % 3.3 01/20/19 08:30 Basophils % 0.1 01/20/19 08:30 Absolute Neutrophils 10.45 k/cumm (1.2-6.7) H 01/20/19 08:30 Absolute Lymphocytes 2.07 k/cumm (1.2-3.4) 01/20/19 08:30 Absolute Monocytes 1.24 k/cumm (0.11-0.7) H 01/20/19 08:30 Absolute Eosinophils 0.47 k/cumm (0.0-0.7) 01/20/19 08:30 Absolute Basophils 0.01 k/cumm (0.0-0.2) 01/20/19 08:30 Differential Comment Comment 01/17/19 09:15 RBC Morphology See below 01/17/19 09:15 Polychromasia Present 01/17/19 09:15 Hypochromasia 1+ 01/16/19 07:10 Poikilocytosis 1+ 01/17/19 09:15 Anisocytosis 2+ 01/17/19 09:15 Macrocytosis 1+ 01/17/19 09:15 Sodium 141 mmol/L (136-145) 01/20/19 08:30 Potassium 4.5 mmol/L (3.5-5.1) 01/20/19 08:30 Chloride 101 mmol/L (98-107) 01/20/19 08:30 Carbon Dioxide 35.1 mmol/L (21.0-32.0) H 01/20/19 08:30 Anion Gap 4.9 mmol/L (3-11) 01/20/19 08:30 BUN 47 mg/dL (7-18) H 01/20/19 08:30 Creatinine 1.62 mg/dL (0.55-1.02) H 01/20/19 08:30 Estimated GFR/1.73 m2 31.79 (mL/min/1.73m2) 01/20/19 08:30 Glucose 206 mg/dL (70-100) H 01/20/19 08:30 Calcium 8.3 mg/dL (8.5-10.1) L 01/20/19 08:30 Magnesium 2.3 mg/dL (1.8-2.4) 01/20/19 08:30 Total Bilirubin 0.6 mg/dL (0.2-1.0) 01/16/19 07:10 Conjugated Bilirubin 0.16 mg/dL (0.00-0.20) 01/16/19 07:10 AST 19 U/L (15-37) 01/16/19 07:10 ALT 45 U/L (12-78) 01/16/19 07:10 Alkaline Phosphatase 83 U/L (46-116) 01/16/19 07:10 Troponin I 0.03 ng/mL (0.00-0.06) 01/16/19 00:17 NT-Pro-B Natriuret Pep 4944 pg/mL (-299) H 01/20/19 08:30 Total Protein 6.5 g/dL (6.4-8.2) 01/16/19 07:10 Albumin 2.3 g/dL (3.4-5.0) L 01/16/19 07:10 TSH 0.84 uIU/mL (0.358-3.74) 01/16/19 07:10 Vancomycin Trough 19.6 ug/mL (10.0-20.0) 01/17/19 11:20
[2019-01-20] MEDS: oxyCODONE 5 MG TAB PO ×2 (11:37→20:12)
--- NOTE | 2019-01-20 16:24 | CMPROGNOTE_ITS ---
Care Management Progress Note S/O: Ann-Marie remains pleasant in interaction and forthcoming with information. No change to overall plan. CM will continue to follow. A: 68 year old female admitted 01/15/19 for HCAP, COPD Exacerbation, CHF, Acute Hypoxic Respiratory Failure P: Ann-Marie plans to discharge to her daughter's home in [place], [place]. Anticipate she will have new orders for home O2, as well as new orders for VNA RN, and PT. Ann-Marie will continue to work with PT/OT while inpatient, she reports having all needed DME including shower chair, walker, commode, grab rails and hand held shower. She states her daughter's home is all one level. Anticipate a few more days of inpatient care for respiratory recovery per provider.
--- NOTE | 2019-01-20 20:25 | PT.INNT ---
Date of service: 01/20/19 Time of Service: 20:25 PT Notes 01/20/19 Patient refused PT session, stating that she just got back into bed. Will attempt to resume PT services tomorrow morning.
[2019-01-20] MEDS: Insulin Glargine 300 UNITS/3 ML PEN 18 UNITS SC (22:17)
[2019-01-20] MEDS: rOPINIRole 1 MG TAB 2 MG PO (22:18)
[2019-01-21] VITALS (13 sets, daily range): BP systolic 104–121; BP diastolic 60–69; PULSE 70–86; RESP 5–20; TEMP 36.4–36.8; O2SAT 92–99
[2019-01-21] MEDS: PIPERACILLIN/TAZO 3.375 GM in Normal Saline 50 ML IVPB (04:18)
[2019-01-21] MEDS: Albuterol/Ipratropium 3 ML UPD VIAL UPD ×3 (06:20→18:25)
[2019-01-21] MEDS: Heparin 5,000 UNITS/ML VIAL 5000 UNITS SC ×3 (06:20→21:30)
[2019-01-21 07:52] LABS: Abs Immature Grans 0.06 k/cumm (0.0-0.09); Absolute Monocyte Count 1.18 k/cumm (0.11-0.7); Basophils % 0.1; Eosinophils % 2.8; HCT 31.1 % (36.0-46.0); HGB 9.5 g/dL (12.0-15.5); Immature Grans % 0.4; Lymphocytes % 14.6; Mean Corp. HGB Concentration 30.5 g/dL (32.0-36.0); Mean Corpuscular Hemoglobin 30.6 pg (27.0-33.0); Mean Corpuscular Volume 100.3 fL (80-95); Mean Platelet Volume 9.4 fL (8.0-11.0); Monocytes % 7.8; Neutrophils % 74.3; RBC Distribution Width 13.8 % (11.7-14.6); White Blood Cell Count 15.18 k/cumm (4.4-10.8)
[2019-01-21 07:56] LABS: Anion Gap 2.7 mmol/L (3-11); BUN 49 mg/dL (7-18); CO2 41.3 mmol/L (21.0-32.0); CREATININE 1.87 mg/dL (0.55-1.02); Calcium 8.5 mg/dL (8.5-10.1); Chloride 96 mmol/L (98-107); Estimated GFR 26.94 (mL/min/1.73m2); Glucose 226 mg/dL (70-100); Magnesium 2.1 mg/dL (1.8-2.4); Potassium 4.1 mmol/L (3.5-5.1); Sodium 140 mmol/L (136-145)
[2019-01-21] MEDS: Ergocalciferol 50000 UNITS CAP PO (08:02)
[2019-01-21] MEDS: Acetaminophen 325 MG TAB PO (08:03)
[2019-01-21] MEDS: oxyCODONE 5 MG TAB PO (08:03)
[2019-01-21] MEDS: guaiFENesin 600 MG TABCR PO ×2 (08:04→19:59)
[2019-01-21] MEDS: Atorvastatin 40 MG TAB PO (08:04)
[2019-01-21] MEDS: predniSONE 20 MG TAB 40 MG PO (08:05)
[2019-01-21] MEDS: Benzonatate 200 MG CAP PO ×3 (08:05→19:59)
[2019-01-21] MEDS: DULoxetine 30 MG CAP 60 MG PO (08:05)
[2019-01-21] MEDS: Calcium 600mg/Vit D 200U TAB 2 TAB PO ×2 (08:05→19:59)
[2019-01-21] MEDS: Allopurinol 100 MG TAB PO (08:06)
[2019-01-21] MEDS: Cyanocobalamin 500 MCG TAB 1000 MCG PO (08:06)
[2019-01-21] MEDS: Gabapentin 600 MG TAB PO ×3 (08:06→19:59)
[2019-01-21] MEDS: Metoprolol 50 MG TAB PO ×2 (08:06→19:59)
[2019-01-21] MEDS: Normal Saline Flush 10 ML SYR IVP ×2 (08:07→10:36)
[2019-01-21] MEDS: Aspirin E.C. 81 MG TABEC PO (08:07)
[2019-01-21] MEDS: Folic Acid 1 MG TAB PO (08:07)
[2019-01-21] MEDS: Insulin Aspart 300 UNITS/3 ML PEN SC ×4 (08:08→21:31)
[2019-01-21] MEDS: Pantoprazole 40 MG VIAL IVP ×2 (08:10→19:58)
[2019-01-21 08:11] LABS: Absolute Basophil Count 0.02 k/cumm (0.0-0.2); Absolute Eosinophil Count 0.43 k/cumm (0.0-0.7); Absolute Lymphocyte Count 2.22 k/cumm (1.2-3.4); Absolute Neutrophil Count 11.28 k/cumm (1.2-6.7)
[2019-01-21] MEDS: Polyethylene Glycol 3350 17 GM PACKET PO (08:20)
[2019-01-21 08:53] LABS: Basophilic Stippling Present; Diff Comment RBC Morph Reviewed; Hypochromasia 1+; Macrocytosis 1+; Platelet Count 767 x1000/uL (130-400); Poikilocytes 1+; Polychromasia Present
[2019-01-21] MEDS: Budesonide/Formoterol 160/4.5 6 GM 60 PUFF INH IH ×2 (11:00→19:58)
--- NOTE | 2019-01-21 11:20 | DI.RAD_ITS ---
SYMPTOMS/DIAGNOSIS: COUGH, HCAP, COPD EXACERBATION, CHF PORTABLE CHEST: Comparison is made with January,. Two views were performed, both of which show respiratory motion. The exam is limited by the patient's body habitus. Multiple leads are seen over the chest. The patient is status post CABG. There are increased densities again noted in the left lung base, again representing a combination of infiltrate and effusion. The right lung is grossly clear. IMPRESSION: Stable left lower lobe infiltrate and effusion.
--- NOTE | 2019-01-21 15:31 | W.PM.PROGNOT ---
Date of Service Date of service: 01/21/19 Time of Service: 15:52 Assessment and Plan (1) HAP (hospital-acquired pneumonia): Start date: 01/21/19 Start time: 15:38 Current visit: No Status: Acute Recent hospitalization at [facility] for CABG on 01/03/19, with subsequent transfer to [facility] and rehab. On presentation she was hypoxic with shortness of breath, productive cough, with leukocytosis improving. Increasing platelet count at 767 could be contributing from zosyn, d/c zosyn, monitor platelet count by am labs. Afebrile, repeat CXR with stable LLL infiltrate, continue to monitor, procalcitonin being checked at this time. Improving oxygenation 1L at 95%. Cough improving, continue nebs, steroids and acapella. Continue to monitor. (2) S/P CABG (coronary artery bypass graft): Start date: 01/21/19 Start time: 15:41 Current visit: No Status: Acute CABG x3 vessel at [facility] on 01/03/19 s/p NSTEMI. Appeared to be a component of fluid overload on presentation. Echocardiogram on this admission shows LVEF 55-60%. Improving clinical symptoms of fluid overload, lung sounds clear, JVD resolved, pitting edema to RLE is +1 and no edema to LLE. Continue to monitor for signs of volume overload, will likely need a dose of lasix daily will start to trial appropriate dose while in hospital and have monitored as outpatient. She did drop 2 kilos since yesterday. (3) Anemia: Start date: 01/21/19 Start time: 15:44 Current visit: No Status: Chronic Hgb up at 9.5 today, has been around 8.1-8.8. Hematest stools negative. Continue to monitor hemoglobin and Hct. Continue PPI. Continue to monitor on telemetry. SR on telemetry in 70-80's. (4) Diabetes mellitus: Start date: 01/21/19 Start time: 15:45 Current visit: No Status: Chronic Continues to elevated blood glucose in the setting of steroids. Increased lantus to 25 as patient blood glucose finger sticks are running in high 200-300 overnight, she is resistant and receiving steroids. (5) Paroxysmal atrial fibrillation: Start date: 01/21/19 Start time: 15:47 Current visit: No Status: Chronic PINEDA removed during CABG, no longer on Xarelto. She has been monitored on telemetry, she was in a-fib, she previously had an episode of nonsustained [place]. She remains in NSR today with rates in the 50-70. Metoprolol dose increased to 50mg BID during this hospitalization. Continue to monitor on telemetry, adjust BB as needed.. (6) Essential hypertension: Start date: 01/21/19 Start time: 15:47 Current visit: No Status: Chronic Blood pressure stable. Continue metoprolol. Continue to monitor blood pressure. (7) Chronic obstructive lung disease: Start date: 01/21/19 Start time: 15:47 Current visit: No Status: Chronic Treat as above. (8) CKD (chronic kidney disease) stage 3, GFR 30-59 ml/min: Start date: 01/21/19 Start time: 15:48 Current visit: No Status: Acute Creatinine increased to 1.87 today after dose of lasix yesterday. Normal range for creatinine trends around 1.31. Continue to monitor. (9) DVT prophylaxis: Start date: 01/21/19 Start time: 15:50 Current visit: No Status: Acute subcutaneous heparin. Hold if H&H continue to trend down and/or if stools Hemoccult positive. (10) Discharge planning issues: Start date: 01/21/19 Start time: 15:50 Current visit: No Status: Acute She is a full code. She was transferred from [facility] to [facility] and rehab. She continues to verbalize a desire to return home with her daughter when she is ready for discharge. She is working with PT/OT. Plan to discharge home when ready as long as she is safe. Subjective Patient reports: other Interval history since last seen: Mrs. Griggs diuressed large amounts of urine over last 24 hours. Up to 9,000 ml. Her weight is down 2 kilos, she endorses her legs are direct support staff and she can she her franco bones. She does have pitting edema to RLE at 1+ which is improved, crackles have resolved and she now has clear lung sounds. JVD has resolved. Her lasix drip has been dcd, as her creatinine and BUN did increase slightly. We will continue to monitor for signs of fluid overload and treat appropriately. Platelets today were 767, could be from zosyn, day 7 of antibiotics, zosyn dcd, Repeat CXR revealed stable left lower lobe infiltrate and effusion, she is afebrile with an elevated WBC likely in the setting of steroid use as her WBC is stable, her oxygenation is improving she is 95% on 1 L and overall she looks and sounds improved. She states this is the best she has felt in days. She denies chest pain, nausea, vomiting, diarrhea, shortness of breath. Exam Narrative Exam Narrative: General: alert and oriented, pleasant and cooperative, sitting up in the recliner with her legs elevated, in no acute distress. HEENT: normocephalic, atraumatic, EOMI, pupils equal and round, mucous membranes moist. Neck: supple, no JVD. Cardiovascular: heart has regular rate and rhythm, no murmur appreciated. Chest: with midline sternal incision healing well, well approximated, no erythema, significant edema or active drainage. Respiratory: respirations even and unlabored, no shortness of breath while speaking in complete sentences, cough improving, lung sounds clear, no rales, rhonchi, wheezing or crackles GI: abdomen soft, normoactive bowel sounds, nondistended, nontender on palpation. Extremities: LLE edema improved- TEDs. Left leg with no edema RLE with 1+ pitting edema; incision distal to left knee, medially, healing well, well approximated without signs of infection. Pedal pulses palpable bilaterally. Objective Objective Clinical Data: Abnormal lab results 01/21/19 01/21/19 Range/Units 06:30 06:30 WBC 15.18 H (4.4-10.8) k/cumm RBC 3.10 L (4.00-5.20) m/cumm Hgb 9.5 L (12.0-15.5) g/dL Hct 31.1 L (36.0-46.0) % MCV 100.3 H (80-95) fL MCHC 30.5 L (32.0-36.0) g/dL Plt Count 767 H* (130-400) x1000/uL Absolute Neutrophils 11.28 H (1.2-6.7) k/cumm Absolute Monocytes 1.18 H (0.11-0.7) k/cumm Chloride 96 L (98-107) mmol/L Carbon Dioxide 41.3 H (21.0-32.0) mmol/L Anion Gap 2.7 L (3-11) mmol/L BUN 49 H (7-18) mg/dL Creatinine 1.87 H (0.55-1.02) mg/dL Glucose 226 H (70-100) mg/dL Vital Signs Temperature 36.8 C 01/21/19 11:55 Temperature Source Tympanic 01/21/19 11:55 Pulse 78 01/21/19 12:57 Pulse Rhythm Regular 01/21/19 08:55 Pulse 89 01/15/19 15:20 Respiratory Rate 19 01/21/19 12:57 Respiratory Effort Non-Labored 01/21/19 08:55 Respiratory Depth Normal 01/21/19 08:55 Respiratory Pattern Normal 01/21/19 08:55 Blood Pressure 104/67 01/21/19 11:55 Blood Pressure Mean 80 01/15/19 15:16 Blood Pressure Position Sitting 01/15/19 10:17 Pulse Oximetry 97 01/21/19 12:57 Oxygen Delivery Method Room Air 01/21/19 12:57 Oxygen Flow Rate 0 01/21/19 12:57 Pain Level 7 01/21/19 11:55 Comment 01/18/19 07:45 Intake & Output 01/20/19 01/21/19 01/21/19 23:59 11:59 23:59 Intake Total 1250 / 2010.667 849.375 / 1329.375 480 / 1329.375 Output Total 5900 / 7275 3925 / 4035 110 / 4035 Balance -4650 / -5264.333 -3075.625 / -2705.625 370 / -2705.625 Weight 136.9 kg Intake: IV 50 / 120.667 249.375 / 249.375 Oral 1200 / 1890 600 / 1080 480 / 1080 Output: Urine 5900 / 7275 3925 / 4035 110 / 4035 Other: Urine Color Yellow Pale Yellow Yellow Urine Appearance Clear Clear Clear Stool Size Copious Stool Characteristics Soft Formed Voiding Methods Bedside Commode Laboratory Results WBC 15.18 k/cumm (4.4-10.8) H 01/21/19 06:30 RBC 3.10 m/cumm (4.00-5.20) L 01/21/19 06:30 Hgb 9.5 g/dL (12.0-15.5) L 01/21/19 06:30 Hct 31.1 % (36.0-46.0) L 01/21/19 06:30 MCV 100.3 fL (80-95) H 01/21/19 06:30 MCH 30.6 pg (27.0-33.0) 01/21/19 06:30 MCHC 30.5 g/dL (32.0-36.0) L 01/21/19 06:30 RDW 13.8 % (11.7-14.6) 01/21/19 06:30 Plt Count 767 x1000/uL (130-400) H* 01/21/19 06:30 MPV 9.4 fL (8.0-11.0) 01/21/19 06:30 Immature Gran % 0.4 01/21/19 06:30 Neutrophils % 74.3 01/21/19 06:30 Lymphocytes % 14.6 01/21/19 06:30 Monocytes % 7.8 01/21/19 06:30 Eosinophils % 2.8 01/21/19 06:30 Basophils % 0.1 01/21/19 06:30 Absolute Neutrophils 11.28 k/cumm (1.2-6.7) H 01/21/19 06:30 Absolute Lymphocytes 2.22 k/cumm (1.2-3.4) 01/21/19 06:30 Absolute Monocytes 1.18 k/cumm (0.11-0.7) H 01/21/19 06:30 Absolute Eosinophils 0.43 k/cumm (0.0-0.7) 01/21/19 06:30 Absolute Basophils 0.02 k/cumm (0.0-0.2) 01/21/19 06:30 Differential Comment Rbc morph reviewed 01/21/19 06:30 RBC Morphology See below 01/21/19 06:30 Polychromasia Present 01/21/19 06:30 Hypochromasia 1+ 01/21/19 06:30 Poikilocytosis 1+ 01/21/19 06:30 Basophilic Stippling Present 01/21/19 06:30 Anisocytosis 2+ 01/17/19 09:15 Macrocytosis 1+ 01/21/19 06:30 Sodium 140 mmol/L (136-145) 01/21/19 06:30 Potassium 4.1 mmol/L (3.5-5.1) 01/21/19 06:30 Chloride 96 mmol/L (98-107) L 01/21/19 06:30 Carbon Dioxide 41.3 mmol/L (21.0-32.0) H 01/21/19 06:30 Anion Gap 2.7 mmol/L (3-11) L 01/21/19 06:30 BUN 49 mg/dL (7-18) H 01/21/19 06:30 Creatinine 1.87 mg/dL (0.55-1.02) H 01/21/19 06:30 Estimated GFR/1.73 m2 26.94 (mL/min/1.73m2) 01/21/19 06:30 Glucose 226 mg/dL (70-100) H 01/21/19 06:30 Calcium 8.5 mg/dL (8.5-10.1) 01/21/19 06:30 Magnesium 2.1 mg/dL (1.8-2.4) 01/21/19 06:30 Total Bilirubin 0.6 mg/dL (0.2-1.0) 01/16/19 07:10 Conjugated Bilirubin 0.16 mg/dL (0.00-0.20) 01/16/19 07:10 AST 19 U/L (15-37) 01/16/19 07:10 ALT 45 U/L (12-78) 01/16/19 07:10 Alkaline Phosphatase 83 U/L (46-116) 01/16/19 07:10 Troponin I 0.03 ng/mL (0.00-0.06) 01/16/19 00:17 NT-Pro-B Natriuret Pep 4944 pg/mL (-299) H 01/20/19 08:30 Total Protein 6.5 g/dL (6.4-8.2) 01/16/19 07:10 Albumin 2.3 g/dL (3.4-5.0) L 01/16/19 07:10 TSH 0.84 uIU/mL (0.358-3.74) 01/16/19 07:10 Vancomycin Trough 19.6 ug/mL (10.0-20.0) 01/17/19 11:20
--- NOTE | 2019-01-21 16:17 | PT.INTREAT ---
Date of service: 01/21/19 Time of Service: 11:35 PT Notes Inpatient Physical Therapy Treatment Note [facility] Date: 01/21/2019 PRECAUTIONS: Fall. Standard. Median sternotomy precautions. SUBJECTIVE: Patient continues to report improving bowel movement with the last one she had yesterday, Monday. She was hopeful that she can go home today but is unable to do so as she requires further medical observation. She is happy to have had a shower with WELDING SUPERVISOR this afternoon. She did report some lateral sternal pain on the right side of the sternotomy incision which was reported to the nurse. OBJECTIVE: Patient seen resting on chair. library monitor off. Oxygen supplementation off with patient now on room oxygen. IV off. PAIN: Reported lateral sternal pain on the right while at rest and sitting on recliner chair. Nurse made aware. BED MOBILITY/TRANSFERS Rolling independent Supine to sit independent with head of bed between 30 to 45 degrees Sit to supine independent with bed placed at lowest level to allow for independent placement of BLE Sit to stand minimal assist from recliner to minimize excessive pushing on B UE and trunk bending Stand to sit minimal assist from recliner for more controlled descent to comply with sternotomy precautions Bed to chair supervision with bed elevated at least 22 inches from floor to for more controlled descent and to comply with sternotomy precautions Chair to bed supervision with bed elevated at least 22 inches from floor to for more controlled descent GAIT Assistive Device: FWW Weight bearing: WBAT with sternotomy precautions still in effect Assist: SBA Distance: In the morning patient and only negotiated from bedside to 10 feet x 2. In the afternoon patient completed 80 feet + 80 feet +25 feet +25 feet using FWW Deviation: Gait velocity increasing, step height and length increasing, shortness of breath observed at the end of activity which resolved with rest VITALS: 85 to 96% on room air; 68 bpm to 108 bpm. ASSESSMENT: Patient demonstrating improved activity tolerance and endurance in performing level surface ambulation with no standing nor seated rest from her room to the shower area about [address] Patient continues to be agreeable to using front wheeled walker to increase activity tolerance and minimize fatigue onset. PLAN: Continue with PT POC as initially established with visit frequency increased to twice a day as of today. Patient will benefit from home health PT services in order to maximize activity tolerance in preparation for phase 2 outpatient cardiac rehab participation. TREATMENT CODE/TIME: Session 1- 35064? 1 beginning at 11:35 AM. Session 2- 15016? 1 beginning at 1:02 PM.
--- NOTE | 2019-01-21 16:32 | PTTR_ITS ---
Date of service: 01/21/19 Time of Service: 11:35 PT Notes Inpatient Physical Therapy Treatment Note [facility] Date: 01/21/2019 PRECAUTIONS: Fall. Standard. Median sternotomy precautions. SUBJECTIVE: Patient continues to report improving bowel movement with the last one she had yesterday, Monday. She was hopeful that she can go home today but is unable to do so as she requires further medical observation. She is happy to have had a shower with RENT CONTROL OFFICE MANAGER this afternoon. She did report some lateral sternal pain on the right side of the sternotomy incision which was reported to the nurse. OBJECTIVE: Patient seen resting on chair. front desk monitor off. Oxygen supplementation off with patient now on room oxygen. IV off. PAIN: Reported lateral sternal pain on the right while at rest and sitting on recliner chair. Nurse made aware. BED MOBILITY/TRANSFERS Rolling independent Supine to sit independent with head of bed between 30 to 45 degrees Sit to supine independent with bed placed at lowest level to allow for independent placement of BLE Sit to stand minimal assist from recliner to minimize excessive pushing on B UE and trunk bending Stand to sit minimal assist from recliner for more controlled descent to comply with sternotomy precautions Bed to chair supervision with bed elevated at least 22 inches from floor to for more controlled descent and to comply with sternotomy precautions Chair to bed supervision with bed elevated at least 22 inches from floor to for more controlled descent GAIT Assistive Device: FWW Weight bearing: WBAT with sternotomy precautions still in effect Assist: SBA Distance: In the morning patient and only negotiated from bedside to 10 feet x 2. In the afternoon patient completed 80 feet + 80 feet +25 feet +25 feet using FWW Deviation: Gait velocity increasing, step height and length increasing, shortness of breath observed at the end of activity which resolved with rest VITALS: 85 to 96% on room air; 68 bpm to 108 bpm. ASSESSMENT: Patient demonstrating improved activity tolerance and endurance in performing level surface ambulation with no standing nor seated rest from her room to the shower area about [address] Patient continues to be agreeable to using front wheeled walker to increase activity tolerance and minimize fatigue onset. PLAN: Continue with PT POC as initially established with visit frequency increased to twice a day as of today. Patient will benefit from home health PT services in order to maximize activity tolerance in preparation for phase 2 outpatient cardiac rehab participation. TREATMENT CODE/TIME: Session 1- 38354? 1 beginning at 11:35 AM. Session 2- 38278? 1 beginning at 1:02 PM.
--- NOTE | 2019-01-21 16:49 | PDOC.CMPRO ---
Care Management Progress Note S/O: Ann-Marie remains pleasant in interaction and forthcoming with information. CM answered questions regarding financial power of attorney general paperwork for her and herself. CM provided Randy Farris's number for Ann-Marie to connect with. No change to overall plan. CM will continue to follow. A: 68 year old female admitted 01/15/19 for HCAP, COPD Exacerbation, CHF, Acute Hypoxic Respiratory Failure P: Ann-Marie plans to discharge to her daughter's home in [place], [place]. Anticipate she will have new orders for home O2, as well as new orders for VNA RN, and PT. Ann-Marie will continue to work with PT/OT while inpatient, she reports having all needed DME including shower chair, walker, commode, grab rails and hand held shower. She states her daughter's home is all one level. Anticipate a few more days of inpatient care for respiratory recovery per provider.
--- NOTE | 2019-01-21 16:52 | CMPROGNOTE_ITS ---
Care Management Progress Note S/O: Ann-Marie remains pleasant in interaction and forthcoming with information. CM answered questions regarding financial power of claim attorney paperwork for her and herself. CM provided Randy Farris's number for Ann-Marie to connect with. No change to overall plan. CM will continue to follow. A: 68 year old female admitted 01/15/19 for HCAP, COPD Exacerbation, CHF, Acute Hypoxic Respiratory Failure P: Ann-Marie plans to discharge to her daughter's home in [place], [place]. Anticipate she will have new orders for home O2, as well as new orders for VNA RN, and PT. Ann-Marie will continue to work with PT/OT while inpatient, she reports having all needed DME including shower chair, walker, commode, grab rails and hand held shower. She states her daughter's home is all one level. Anticipate a few more days of inpatient care for respiratory recovery per provider.
[2019-01-21] MEDS: Normal Saline Flush 10 ML SYR 20 ML IVP (19:59)
[2019-01-21] MEDS: rOPINIRole 1 MG TAB 2 MG PO (21:30)
[2019-01-21] MEDS: Insulin Glargine 300 UNITS/3 ML PEN 25 UNITS SC (21:32)
[2019-01-22 00:02] VITALS: BP 112/64; PULSE 80; RESP 19; TEMP 36.4; O2SAT 93
[2019-01-22 03:28] VITALS: BP 113/70; PULSE 79; RESP 18; TEMP 36.7; O2SAT 94
[2019-01-22] MEDS: Albuterol/Ipratropium 3 ML UPD VIAL UPD ×3 (06:15→11:56)
[2019-01-22 07:20] VITALS: BP 121/71; PULSE 78; RESP 18; TEMP 36.6; O2SAT 92
[2019-01-22 07:42] LABS: Abs Immature Grans 0.07 k/cumm (0.0-0.09); Absolute Lymphocyte Count 2.89 k/cumm (1.2-3.4); Absolute Monocyte Count 1.18 k/cumm (0.11-0.7); Basophils % 0.1; Eosinophils % 3.9; HCT 30.1 % (36.0-46.0); Immature Grans % 0.5; Lymphocytes % 18.6; Mean Corp. HGB Concentration 29.9 g/dL (32.0-36.0); Mean Corpuscular Hemoglobin 30.1 pg (27.0-33.0); Mean Corpuscular Volume 100.7 fL (80-95); Mean Platelet Volume 9.4 fL (8.0-11.0); Monocytes % 7.6; Neutrophils % 69.3; RBC 2.99 m/cumm (4.00-5.20); RBC Distribution Width 14.3 % (11.7-14.6); White Blood Cell Count 15.53 k/cumm (4.4-10.8)
[2019-01-22 07:53] LABS: Absolute Basophil Count 0.02 k/cumm (0.0-0.2); Absolute Eosinophil Count 0.61 k/cumm (0.0-0.7); Absolute Neutrophil Count 10.76 k/cumm (1.2-6.7)
[2019-01-22] MEDS: DULoxetine 30 MG CAP 60 MG PO (08:00)
[2019-01-22] MEDS: Calcium 600mg/Vit D 200U TAB 2 TAB PO (08:00)
[2019-01-22] MEDS: Polyethylene Glycol 3350 17 GM PACKET PO (08:00)
[2019-01-22] MEDS: predniSONE 20 MG TAB 40 MG PO (08:01)
[2019-01-22] MEDS: Pantoprazole 40 MG VIAL IVP (08:01)
[2019-01-22] MEDS: Allopurinol 100 MG TAB PO (08:01)
[2019-01-22] MEDS: Folic Acid 1 MG TAB PO (08:01)
[2019-01-22] MEDS: Aspirin E.C. 81 MG TABEC PO (08:01)
[2019-01-22] MEDS: Gabapentin 600 MG TAB PO ×2 (08:01→14:11)
[2019-01-22] MEDS: Metoprolol 50 MG TAB PO (08:01)
[2019-01-22] MEDS: Benzonatate 200 MG CAP PO ×2 (08:01→14:11)
[2019-01-22] MEDS: Cyanocobalamin 500 MCG TAB 1000 MCG PO (08:01)
[2019-01-22] MEDS: guaiFENesin 600 MG TABCR PO (08:01)
[2019-01-22] MEDS: Atorvastatin 40 MG TAB PO (08:01)
[2019-01-22] MEDS: Normal Saline Flush 10 ML SYR 20 ML IVP (08:02)
[2019-01-22] MEDS: Insulin NPH-Human 300 UNITS/3 ML PEN 20 UNIT SC (08:04)
[2019-01-22 08:10] LABS: Anion Gap 2.2 mmol/L (3-11); BUN 52 mg/dL (7-18); CO2 39.8 mmol/L (21.0-32.0); CREATININE 1.75 mg/dL (0.55-1.02); Calcium 8.5 mg/dL (8.5-10.1); Chloride 100 mmol/L (98-107); Estimated GFR 29.08 (mL/min/1.73m2); Glucose 210 mg/dL (70-100); Sodium 142 mmol/L (136-145)
[2019-01-22] MEDS: Insulin Aspart 300 UNITS/3 ML PEN SC ×4 (08:19→12:02)
[2019-01-22 08:24] LABS: Basophilic Stippling Present; Diff Comment Diff Reviewed; Hypochromasia 1+; Platelet Count 713 x1000/uL (130-400)
[2019-01-22 08:25] LABS: Poikilocytes 2+; Polychromasia Present
[2019-01-22 08:31] VITALS: O2SAT 92
[2019-01-22 08:38] VITALS: PULSE 77
[2019-01-22] MEDS: oxyCODONE 5 MG TAB PO ×2 (09:10→14:59)
[2019-01-22] MEDS: Budesonide/Formoterol 160/4.5 6 GM 60 PUFF INH IH (09:46)
[2019-01-22 10:58] VITALS: O2SAT 93
[2019-01-22 11:56] LABS: Bilirubin Negative (Negative); Blood Negative (Negative); Clarity Clear; Glucose Negative (Negative); Ketones Negative (Negative); Leukocyte Esterase Negative (Negative); Nitrite Negative (Negative); Specific Gravity 1.015 (1.005-1.025)
[2019-01-22 12:03] LABS: Bacteria Rare HPF (Negative); C & S Indicated? No; Casts Negative LPF (Negative); Crystals Negative HPF (Negative); Epithelial Cells Many HPF (Negative); Mucus Trace (Negative); RBC 0-2 (0-2); WBC 0-2 HPF (0-5)
--- NOTE | 2019-01-22 12:26 | W.PM.DS.N ---
Date of service: 01/22/19 Time of Service: 12:27 DS: Diagnosis Discharge Diagnosis (1) HAP (hospital-acquired pneumonia): Status: Acute (2) S/P CABG (coronary artery bypass graft): Status: Acute (3) Anemia: Status: Chronic (4) Diabetes mellitus: Status: Chronic (5) Paroxysmal atrial fibrillation: Status: Chronic (6) Essential hypertension: Status: Chronic (7) Chronic obstructive lung disease: Status: Chronic (8) CKD (chronic kidney disease) stage 3, GFR 30-59 ml/min: Status: Acute Discharge Plan Disposition Patient Disposition: HOME W/HOME HEALTH SERVICE Condition: Stable Discharge Details Reason For Visit: HCAP,COPD EXAC,CHF,ACUTE HYPOXIC RESPIRATORY FAILU Admit Date/Time: 01/15/19 15:06 Admit Provider: Elvira Mims Attending Provider: Elvira Mims Primary Care Provider: Laisha Mcmahon [facility] Hospital Course: Ann-Marie Griggs is a very pleasant 68 year old female with a past medical history significant for hypertension, hyperlipidemia, diabetes mellitus type 2, obesity, COPD, depression, gout, paroxysmal atrial fibrillation (anticoagulated with Xarelto), chronic back pain, restless leg syndrome, spinal stenosis, chronic kidney disease and coronary artery disease, with recent NSTEMI with subsequent transfer from [facility] emergency department to [facility] where she underwent a CABG x3 vessels (01/03/19). From [facility] she was transferred to [facility] on 01/09/19. On 01/15/19, she presented to the ED with a 5 day history of worsening shortness of breath, wheezing, and cough productive of thick yellow sputum. In the ED, she was found to be hypoxic with oxygen saturation of 88% on 2 liters. She required 4 liters of oxygen to maintain saturations in the 90s. Her labs revealed leukocytosis with a white blood cell count 14.57, hemoglobin 8.4, hematocrit 28, platelet count of 554, BNP 3219, her BUN was 22 with a creatinine of 1.39 (better than baseline). Chest x-ray shows left basilar small infiltrate and/or effusion. She was started on IV Vanco and Zosyn to cover for hospital-acquired pneumonia, nebulizer treatments and IV steroids. She was admitted to the Medr floor for further evaluation and management. Ms Griggs was also found to be fluid overloaded and was given IV lasix, first bolus, then IV lasix drip x24 hours. She diuresed well over the following several days. Her weight is down 6.5 kg from admission. Her lungs are clear. She continues to have edema in her RLE, which is also the graft site from her recent CABG. She will apply celeste wraps at home and keep her legs elevated. She is no longer experiencing shortness of breath or wheezing. She will take oral lasix at home and monitor her weight. She has CKD, her creatinine was elevated in the setting of diuresis, she will need follow up BMP to reassess renal function. She was initially treated with vancomycin and zosyn due to her recent hospitalization at [facility] and transfer to [facility], however, with no evidence of MRSA, the Vancomycin was discontinued after 3 days. She completed a 5 day course of Zosyn. Her respiratory status improved. She is no longer requiring oxygen. Steroids are being tapered. She will complete a steroid taper after discharge home. Ms Griggs has a history of diabetes, she takes glipizide and victoza at home. Her blood glucose has been elevated in the setting of steroids. Her steroids are being tapered at discharge. Upon discharge home, she will resume Victoza and glipizide per previous dosing. She is instructed to monitor her blood glucose before breakfast and dinner to obtain fasting results. If her blood sugar remains above 300 consistently she will contact her PCP. Consideration was made for adding short-acting insulin for short-term blood sugar control, however she has not been on Victoza or glipizide during her hospitalization and there is concern for hypoglycemia if she resumes both of her usual antidiabetic medications and uses short acting insulin. Her blood glucose should improve as her steroids are tapered. She will continue an ADA diet. She has follow up scheduled with her PCP in one week. She will remain on PPI therapy to protect her stomach as her hgb has been low. Her hemoglobin on the day of discharge has improved to 9.0, hct 30.1, from a low of 7.5. This is in the setting of antiplatelet therapy with aspirin and steroids. She has had heme-negative stools. She was monitored on telemetry and was noted to be in sinus rhythm to sinus tachycardia with inverted Twaves. She was in sinus rhythm with rates in the 70s on the day of discharge. Ms Griggs is discharged home in improved condition. She will follow up with her PCP in one week. She will have new home health services to include nursing and PT. Home Meds and New Rx's Prescriptions: New benzonatate 200 mg Capsule 200 mg PO TID Qty: 12 RF: 0 calcium carbonate-vitamin D3 [Calcium 600 + D(3)] 600 mg(1,500mg) -200 unit Tablet 2 tab PO BID Qty: 60 RF: 0 metoprolol tartrate 50 mg Tablet 50 mg PO BID Qty: 60 RF: 0 guaifenesin [Mucinex] 600 mg Tablet Extended Release 12hr 600 mg PO BID Qty: 8 RF: 0 prednisone 10 mg tablet 10 mg PO DAILY Qty: 16 RF: 0 Continued Victoza 2-Erick 0.6 mg/0.1 mL (18 mg/3 mL) pen injector 0.6 mg SC DAILY Qty: 6 RF: 4 allopurinol 100 mg tablet 100 mg PO DAILY Qty: 90 RF: 12 gabapentin 600 mg tablet 600 mg PO TID Qty: 270 RF: 12 glipizide 10 mg tablet extended release 24hr 10 mg PO DAILY Qty: 90 RF: 11 atorvastatin 40 mg tablet 40 mg PO DAILY Qty: 90 RF: 6 duloxetine 60 mg capsule,delayed release(DR/EC) 60 mg PO DAILY Qty: 90 RF: 12 fluticasone propion-salmeterol [Advair Diskus] 250-50 mcg/dose blister with device 1 inh Inhalation BID PRN (Reason: asthma) Qty: 3 RF: 0 ergocalciferol (vitamin D2) [Vitamin D2] 50,000 UNIT capsule 1 tab-cap PO -- Qty: 12 RF: 4 epinephrine [EpiPen 2-Erick] 0.3 MG/0.3 ML auto-injector 0.3 mg IM ONCE Qty: 2 RF: 10 folic acid 1 mg tablet 1 mg PO DAILY Qty: 90 RF: 5 nystatin 100,000 unit/gram cream 1 applic Topical BID PRN (Reason: yeast) Qty: 30 RF: 2 meclizine 12.5 mg tablet 25 mg PO TID PRN (Reason: dizziness) Qty: 60 RF: 3 cyanocobalamin (vitamin B-12) [Vitamin B-12] 500 MCG tablet 1,000 mcg PO DAILY Qty: 100 RF: 0 albuterol sulfate 2.5 mg /3 mL (0.083 %) Solution For Nebulization 2.5 mg INHALATION QID PRNRF: 0 polyethylene glycol 3350 [Miralax] 17 gram Powder In Packet 1 g PO PRN PRNRF: 0 magnesium hydroxide [Milk of Magnesia] 400 mg/5 mL Suspension 30 ml PO PRN PRN (Reason: Constipation) RF: 0 ropinirole [Requip] 2 mg tablet 2 mg PO QPM PRNRF: 0 aspirin [Aspir-81] 81 mg Tablet,Delayed Release (Dr/Ec) 81 mg PO DAILY Qty: 30 RF: 0 oxycodone 5 mg Tablet 5 mg PO Q4H PRN PRN (Reason: Pain) Qty: 18 RF: 0 Changed furosemide 40 mg Tablet 40 mg PO DAILY Qty: 30 RF: 0 acetaminophen [Tylenol Extra Strength] 500 mg Tablet 1,000 mg PO Q8H PRN PRN (Reason: Pain) Qty: 0 RF: 0 omeprazole 20 mg Capsule,Delayed Release(Dr/Ec) 20 mg PO BID Qty: 60 RF: 0 Discontinued metoprolol succinate 25 mg tablet extended release 24 hr 25 mg PO DAILY RF: 0 TEST STRIPS 1 EACH strip 1 strip Intradermal DAILY RF: 0 dextrose [Glucose Gel] 40 % Gel See Rx Instructions .ROUTE .COMPLEX RF: 0 bisacodyl 10 mg Suppository 10 mg VT DAILY RF: 0 Glucagon Emergency Kit (human) 1 mg Recon Soln See Rx Instructions .ROUTE .COMPLEX PRNRF: 0 oxycodone 5 mg Tablet 5 mg PO PRN PRN (Reason: Pain) RF: 0 oxycodone 5 mg Tablet 10 mg PO DAILY PRN (Reason: Pain) RF: 0 lisinopril 10 mg Tablet 10 mg PO DAILY RF: 0 No Action pen needle, diabetic [1st Tier Unifine Pentips] 31 gauge x 1/4 needle .ROUTE .MEDSUPPLY Qty: 30 RF: 5 Blood Glucose Test strip .ROUTE .MEDSUPPLY Qty: 100 RF: 5 lancets [OneTouch Delica Lancets] 33 gauge misc .ROUTE DAILY Qty: 100 RF: 0 lancets [FreeStyle Lancets] 1 [facility] Sub-Q DAILY PRNRF: 0 Discharge Instructions Instructions: Chronic Kidney Disease (DC), Hospital Acquired Pneumonia (DC) Additional Instructions: Monitor your weight. If your weight is increasing at home, if you are getting more short of breath, or increased swelling in your legs, contact your PCP. Wear celeste wraps to your lower legs, elevate your legs while sitting. Resume your Victoza and glipizide (no insulin for now). Monitor blood glucose before breakfast and before dinner. If your blood sugar is consistently above 300, call your PCP. Home health will see you at home. Take care! Stand Alone Forms: Nursing Discharge Form Referrals: Nav Fowler [ NON-[facility] STAFF PHYSICIAN] - 01/22/19 1:15 pm (02/12 xray @ 12) Laisha Mcmahon [place], [place] [Primary Care Provider] - 01/29/19 9:00 am (02/12 follow up for diabetes) Activity:: Activity as Tolerated Equipment/Supplies:: No Equipment Needed Diet:: Carb Counting Discharge Orders Discharge Orders: Discharge Order (Routine); Ordered 01/22/19 Ordered By: Rosemary Mtz Other Ambulatory Orders: Basic Metabolic Panel (Routine) Timeframe: 20190128 Location: Determined by Patient Ordered By: Rosemary Mtz Complete Blood Count w/Diff (Routine) Timeframe: 20190128 Location: Determined by Patient Ordered By: Rosemary Mtz Exam Narrative Exam Narrative: General: alert and oriented, pleasant and cooperative, sitting up in the recliner with her legs elevated, in no acute distress. HEENT: normocephalic, atraumatic, EOMI, pupils equal and round, mucous membranes moist. Neck: supple, no JVD. Cardiovascular: heart has regular rate and rhythm, no murmur appreciated. Chest: with midline sternal incision healing well, well approximated, no erythema, significant edema or active drainage. Respiratory: respirations even and unlabored, no shortness of breath while speaking in complete sentences, cough improving, lung sounds clear, no rales, or wheezing. GI: abdomen soft, normoactive bowel sounds, nondistended, nontender on palpation. Extremities: LLE with mild edema. RLE with 1-2+ pitting edema; incision distal to left knee, medially, healing well, well approximated without signs of infection. Pedal pulses palpable bilaterally. DS: Data Vitals/I&O Vitals and I&O: Vital Signs Temperature 36.6 C 01/22/19 07:20 Temperature Source Tympanic 01/22/19 07:20 Pulse 77 01/22/19 08:38 Pulse Rhythm Regular 01/22/19 07:53 Pulse 89 01/15/19 15:20 Respiratory Rate 18 01/22/19 07:20 Respiratory Effort Non-Labored 01/22/19 07:53 Respiratory Depth Normal 01/22/19 07:53 Respiratory Pattern Normal 01/22/19 07:53 Blood Pressure 121/71 01/22/19 07:20 Blood Pressure Mean 80 01/15/19 15:16 Blood Pressure Position Sitting 01/15/19 10:17 Pulse Oximetry 93 L 01/22/19 10:58 Oxygen Delivery Method Room Air 01/22/19 10:58 Oxygen Flow Rate 0 01/22/19 10:58 Pain Level 5 01/22/19 09:10 Comment 01/18/19 07:45 Intake & Output 01/21/19 01/22/19 01/22/19 23:59 11:59 23:59 Intake Total 1220 / 2069.375 1070 / 1070 Output Total 110 / 4035 1000 / 1000 Balance 1110 / -1965.625 70 / 70 Weight 133 kg Intake: IV 20 / 269.375 50 / 50 Oral 1200 / 1800 1020 / 1020 Output: Urine 110 / 4035 1000 / 1000 Other: Urine Color Yellow Light [place] Urine Appearance Clear Clear Urine Odor Normal Comment unable to measure. 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 Stool Size Copious Stool Characteristics Soft Formed Voiding Methods Toilet Bedside Commode Completed studies during hospitalization [Text1]: 01/15/19: PORTABLE AP CHEST: Comparison is made with 11/21/18. The heart size and pulmonary vasculature are stable. The patient appears to be status post CABG. The right lung is clear. There is an infiltrate seen in the left lung base. There is blunting of the left costophrenic angle. This may represent a small effusion. No pneumothorax is identified. The bones appear intact. IMPRESSION: Left basilar small infiltrate and/or effusion. Date of study: 01/16/2019 Transthoracic Echocardiography M-mode, complete 2D, complete spectral Doppler, and color Doppler *STUDY CONCLUSIONS* Impressions: An atrial tachycardia rhythm was noted on this study, making this study technically difficult for the assessment of cardiac function. Summary: 1. Left ventricle: The cavity size was normal. Wall thickness was increased in a pattern of moderate LVH. Systolic function was normal. The estimated ejection fraction was 55-60%. Wall motion was normal; there were no regional wall motion abnormalities. 2. Right ventricle: The cavity size was normal. Wall thickness was increased. Systolic function was normal. 3. Pulmonary arteries: Pulmonary systolic pressure was increased, in the range of 35mm Hg to 40mm Hg. 01/21/19: PORTABLE CHEST: Comparison is made with January,. Two views were performed, both of which show respiratory motion. The exam is limited by the patient's body habitus. Multiple leads are seen over the chest. The patient is status post CABG. There are increased densities again noted in the left lung base, again representing a combination of infiltrate and effusion. The right lung is grossly clear. IMPRESSION: Stable left lower lobe infiltrate and effusion. Labs on day of discharge: Labs from last 24 hours 01/22/19 01/22/19 01/22/19 11:40 06:40 06:40 WBC 15.53 H RBC 2.99 L Hgb 9.0 L Hct 30.1 L MCV 100.7 H MCH 30.1 MCHC 29.9 L RDW 14.3 Plt Count 713 H MPV 9.4 Immature Gran % 0.5 Neutrophils % 69.3 Lymphocytes % 18.6 Monocytes % 7.6 Eosinophils % 3.9 Basophils % 0.1 Absolute Neutrophils 10.76 H Absolute Lymphocytes 2.89 Absolute Monocytes 1.18 H Absolute Eosinophils 0.61 Absolute Basophils 0.02 Differential Comment Diff reviewed RBC Morphology See below Polychromasia Present Hypochromasia 1+ Poikilocytosis 2+ Basophilic Stippling Present Sodium 142 Potassium 4.0 Chloride 100 Carbon Dioxide 39.8 H Anion Gap 2.2 L BUN 52 H Creatinine 1.75 H Estimated GFR/1.73 m2 29.08 Glucose 210 H Calcium 8.5 Magnesium 2.0 Urine Color Yellow Urine Clarity Clear Urine pH 7.0 Ur Specific Camp 1.015 Urine Protein Trace H Urine Ketones Negative Urine Blood Negative Urine Nitrite Negative Urine Bilirubin Negative Urine Urobilinogen 1.0 H Ur Leukocyte Esterase Negative Urine RBC 0-2 Urine WBC 0-2 Ur Epithelial Cells Many Urine Crystals Negative Urine Bacteria Rare Urine Casts Negative Urine Mucus Trace Ur Culture Indicated? No Urine Glucose Negative [facility] Medical History Hyperlipidemia (Chronic 08/10/00) Gout (Chronic 07/06/11) Spinal stenosis of lumbar region (Chronic 02/15/16) Restless legs (Chronic) Paroxysmal atrial fibrillation (Chronic 03/01/16) 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) Chronic obstructive lung disease (Chronic) Atrial fibrillation (Chronic) Restless leg syndrome (Chronic) Essential hypertension (Chronic) Hyperlipidemia (Chronic) History of coronary artery disease (Chronic) Abnormal mammography (Resolved) Ankle pain (Resolved 03/13/14) Carpal tunnel syndrome (Resolved 08/10/06) Cervical disc disorder with myelopathy (Resolved 08/21/08) Chest pain (Resolved) Diabetes mellitus (Resolved) Folate deficiency (Resolved 02/15/16) Hepatomegaly (Resolved) Hip joint inflamed (Resolved 09/03/15) Low back pain (Resolved 04/10/03) Menopausal syndrome (Resolved) Muscle fatigue (Resolved) Posterior tibial tendon dysfunction (Resolved) Postmenopausal bleeding (Resolved) Postoperative wound dehiscence (Resolved 12/23/15) Primary osteoarthritis of left hip (Resolved 09/17/15) Renal impairment (Resolved 07/11/03) Rotator cuff syndrome (Resolved 08/01/09) Smoker (Resolved 06/30/16) Tarsal tunnel syndrome (Resolved) Trochanteric bursitis (Resolved) Upper respiratory tract infection (Resolved 08/03/15) Vitamin D deficiency (Resolved) Atrial fibrillation COPD (chronic obstructive pulmonary disease) Carpal tunnel syndrome Cervical spondylosis with myelopathy Diabetes mellitus Gout Hypertension Spinal stenosis of lumbar region at multiple levels Vitamin D deficiency Surgical History S/P CABG (coronary artery bypass graft) (Acute ~01/15/19) H/O Spinal surgery (Resolved) H/O arthrodesis (Resolved) History of bilateral tubal ligation (Resolved) History of gynecologic surgery (Resolved) History of hip surgery (Resolved) History of orthopedic surgery (Resolved) S/P carpal tunnel release (Resolved) S/P cholecystectomy (Resolved) S/P rotator cuff repair (Resolved) Status post incision and drainage (Resolved) Arthrodesis Cholecystectomy (07/31/13) Endometrial Biopsy Left eye surgery Ligation of fallopian tube (~1980) Open Carpal Tunnel release Right wrist surgery Rotator Cuff Repair (~1980) SPINE SURGERY Total replacement of hip cervical repair (~10/2008) tarsal tunnel release (~1997) Family History Mother Diabetes Essential hypertension Personal history of malignant neoplasm Heart disease Hyperlipidemia Stroke Asthma Father Diabetes Essential hypertension Personal history of malignant neoplasm Heart disease Asthma Sister Diabetes Essential hypertension Depression Heart disease Asthma Grandfather No problems noted. Grandfather No problems noted. Grandmother Personal history of malignant neoplasm Grandmother Diabetes Aunt Personal history of malignant neoplasm Brother Hyperlipidemia Stroke Sister Asthma Son Asthma Daughter Depression Asthma Daughter Asthma Daughter Depression Neoplasm Asthma Brother No problems noted. 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
--- NOTE | 2019-01-22 12:30 | DSE_ITS ---
Date of service: 01/22/19 Time of Service: 12:27 DS: Diagnosis Discharge Diagnosis (1) HAP (hospital-acquired pneumonia): Status: Acute (2) S/P CABG (coronary artery bypass graft): Status: Acute (3) Anemia: Status: Chronic (4) Diabetes mellitus: Status: Chronic (5) Paroxysmal atrial fibrillation: Status: Chronic (6) Essential hypertension: Status: Chronic (7) Chronic obstructive lung disease: Status: Chronic (8) CKD (chronic kidney disease) stage 3, GFR 30-59 ml/min: Status: Acute Discharge Plan Disposition Patient Disposition: HOME W/HOME HEALTH SERVICE Condition: Stable Discharge Details Reason For Visit: HCAP,COPD EXAC,CHF,ACUTE HYPOXIC RESPIRATORY FAILU Admit Date/Time: 01/15/19 15:06 Admit Provider: Elvira Mims Attending Provider: Elvira Mims Primary Care Provider: Laisha Mcmahon [facility] Course Hospital Course: Ann-Marie Griggs is a very pleasant 68 year old female with a past medical history significant for hypertension, hyperlipidemia, diabetes mellitus type 2, obesity, COPD, depression, gout, paroxysmal atrial fibrillation (anticoagulated with Xarelto), chronic back pain, restless leg syndrome, spinal stenosis, chronic kidney disease and coronary artery disease, with recent NSTEMI with subsequent transfer from [facility] emergency department to [facility] where she underwent a CABG x3 vessels (01/03/19). From [facility] she was transferred to [facility] on 01/09/19. On 01/15/19, she presented to the ED with a 5 day history of worsening shortness of breath, wheezing, and cough productive of thick yellow sputum. In the ED, she was found to be hypoxic with oxygen saturation of 88% on 2 liters. She required 4 liters of oxygen to maintain saturations in the 90s. Her labs revealed leukocytosis with a white blood cell count 14.57, hemoglobin 8.4, hematocrit 28, platelet count of 554, BNP 3219, her BUN was 22 with a creatinine of 1.39 (better than baseline). Chest x-ray shows left basilar small infiltrate and/or effusion. She was started on IV Vanco and Zosyn to cover for hospital-acquired pneumonia, nebulizer treatments and IV steroids. She was admitted to the Medr floor for further evaluation and management. Ms Griggs was also found to be fluid overloaded and was given IV lasix, first bolus, then IV lasix drip x24 hours. She diuresed well over the following several days. Her weight is down 6.5 kg from admission. Her lungs are clear. She continues to have edema in her RLE, which is also the graft site from her recent CABG. She will apply celeste wraps at home and keep her legs elevated. She is no longer experiencing shortness of breath or wheezing. She will take oral lasix at home and monitor her weight. She has CKD, her creatinine was elevated in the setting of diuresis, she will need follow up BMP to reassess renal function. She was initially treated with vancomycin and zosyn due to her recent hospitalization at [facility] and transfer to [facility], however, with no evidence of MRSA, the Vancomycin was discontinued after 3 days. She completed a 5 day course of Zosyn. Her respiratory status improved. She is no longer requiring oxygen. Steroids are being tapered. She will complete a steroid taper after discharge home. Ms Griggs has a history of diabetes, she takes glipizide and victoza at home. Her blood glucose has been elevated in the setting of steroids. Her steroids are being tapered at discharge. Upon discharge home, she will resume Victoza and glipizide per previous dosing. She is instructed to monitor her blood glucose before breakfast and dinner to obtain fasting results. If her blood sugar remains above 300 consistently she will contact her PCP. Consideration was made for adding short-acting insulin for short-term blood sugar control, however she has not been on Victoza or glipizide during her hospitalization and there is co ncern for hypoglycemia if she resumes both of her usual antidiabetic medications and uses short acting insulin. Her blood glucose should improve as her steroids are tapered. She will continue an ADA diet. She has follow up scheduled with her PCP in one week. She will remain on PPI therapy to protect her stomach as her hgb has been low. Her hemoglobin on the day of discharge has improved to 9.0, hct 30.1, from a low of 7.5. This is in the setting of antiplatelet therapy with aspirin and steroids. She has had heme-negative stools. She was monitored on telemetry and was noted to be in sinus rhythm to sinus tachycardia with inverted Twaves. She was in sinus rhythm with rates in the 70s on the day of discharge. Ms Griggs is discharged home in improved condition. She will follow up with her PCP in one week. She will have new home health services to include nursing and PT. Home Meds and New Rx's Prescriptions: New benzonatate 200 mg Capsule 200 mg PO TID Qty: 12 RF: 0 calcium carbonate-vitamin D3 [Calcium 600 + D(3)] 600 mg(1,500mg) -200 unit Tablet 2 tab PO BID Qty: 60 RF: 0 metoprolol tartrate 50 mg Tablet 50 mg PO BID Qty: 60 RF: 0 guaifenesin [Mucinex] 600 mg Tablet Extended Release 12hr 600 mg PO BID Qty: 8 RF: 0 prednisone 10 mg tablet 10 mg PO DAILY Qty: 16 RF: 0 Continued Victoza 2-Erick 0.6 mg/0.1 mL (18 mg/3 mL) pen injector 0.6 mg SC DAILY Qty: 6 RF: 4 allopurinol 100 mg tablet 100 mg PO DAILY Qty: 90 RF: 12 gabapentin 600 mg tablet 600 mg PO TID Qty: 270 RF: 12 glipizide 10 mg tablet extended release 24hr 10 mg PO DAILY Qty: 90 RF: 11 atorvastatin 40 mg tablet 40 mg PO DAILY Qty: 90 RF: 6 duloxetine 60 mg capsule,delayed release(DR/EC) 60 mg PO DAILY Qty: 90 RF: 12 fluticasone propion-salmeterol [Advair Diskus] 250-50 mcg/dose blister with device 1 inh Inhalation BID PRN (Reason: asthma) Qty: 3 RF: 0 ergocalciferol (vitamin D2) [Vitamin D2] 50,000 UNIT capsule 1 tab-cap PO -- Qty: 12 RF: 4 epinephrine [EpiPen 2-Erick] 0.3 MG/0.3 ML auto-injector 0.3 mg IM ONCE Qty: 2 RF: 10 folic acid 1 mg tablet 1 mg PO DAILY Qty: 90 RF: 5 nystatin 100,000 unit/gram cream 1 applic Topical BID PRN (Reason: yeast) Qty: 30 RF: 2 meclizine 12.5 mg tablet 25 mg PO TID PRN (Reason: dizziness) Qty: 60 RF: 3 cyanocobalamin (vitamin B-12) [Vitamin B-12] 500 MCG tablet 1,000 mcg PO DAILY Qty: 100 RF: 0 albuterol sulfate 2.5 mg /3 mL (0.083 %) Solution For Nebulization 2.5 mg INHALATION QID PRNRF: 0 polyethylene glycol 3350 [Miralax] 17 gram Powder In Packet 1 g PO PRN PRNRF: 0 magnesium hydroxide [Milk of Magnesia] 400 mg/5 mL Suspension 30 ml PO PRN PRN (Reason: Constipation) RF: 0 ropinirole [Requip] 2 mg tablet 2 mg PO QPM PRNRF: 0 aspirin [Aspir-81] 81 mg Tablet,Delayed Release (Dr/Ec) 81 mg PO DAILY Qty: 30 RF: 0 oxycodone 5 mg Tablet 5 mg PO Q4H PRN PRN (Reason: Pain) Qty: 18 RF: 0 Changed furosemide 40 mg Tablet 40 mg PO DAILY Qty: 30 RF: 0 acetaminophen [Tylenol Extra Strength] 500 mg Tablet 1,000 mg PO Q8H PRN PRN (Reason: Pain) Qty: 0 RF: 0 omeprazole 20 mg Capsule,Delayed Release(Dr/Ec) 20 mg PO BID Qty: 60 RF: 0 Discontinued metoprolol succinate 25 mg tablet extended release 24 hr 25 mg PO DAILY RF: 0 TEST STRIPS 1 EACH strip 1 strip Intradermal DAILY RF: 0 dextrose [Glucose Gel] 40 % Gel See Rx Instructions .ROUTE .COMPLEX RF: 0 bisacodyl 10 mg Suppository 10 mg WA DAILY RF: 0 Glucagon Emergency Kit (human) 1 mg Recon Soln See Rx Instructions .ROUTE .COMPLEX PRNRF: 0 oxycodone 5 mg Tablet 5 mg PO PRN PRN (Reason: Pain) RF: 0 oxycodone 5 mg Tablet 10 mg PO DAILY PRN (Reason: Pain) RF: 0 lisinopril 10 mg Tablet 10 mg PO DAILY RF: 0 No Action pen needle, diabetic [1st Tier Unifine Pentips] 31 gauge x 1/4 needle .ROUTE .MEDSUPPLY Qty: 30 RF: 5 Blood Glucose Test strip .ROUTE .MEDSUPPLY Qty: 100 RF: 5 lancets [OneTouch Delica Lancets] 33 gauge misc .ROUTE DAILY Qty: 100 RF: 0 lancets [FreeStyle Lancets] 1 EACH misc 1 ea Sub-Q DAILY PRNRF: 0 Discharge Instructions Instructions: Chronic Kidney Disease (DC), Hospital Acquired Pneumonia (DC) Additional Instructions: Monitor your weight. If your weight is increasing at home, if you are getting more short of breath, or increased swelling in your legs, contact your PCP. Wear celeste wraps to your lower legs, elevate your legs while sitting. Resume your Victoza and glipizide (no insulin for now). Monitor blood glucose before breakfast and before dinner. If your blood sugar is consistently above 300, call your PCP. Home health will see you at home. Take care! Stand Alone Forms: Nursing Discharge Form Referrals: Nav Fowler [ NON-[facility] STAFF PHYSICIAN] - 01/22/19 1:15 pm (02/12 xray @ 12) Laisha Mcmahon [place], [place] [Primary Care Provider] - 01/29/19 9:00 am (02/12 follow up for diabetes) Activity:: Activity as Tolerated Equipment/Supplies:: No Equipment Needed Diet:: Carb Counting Discharge Orders Discharge Orders: Discharge Order (Routine); Ordered 01/22/19 Ordered By: Rosemary Mtz Other Ambulatory Orders: Basic Metabolic Panel (Routine) Timeframe: 20190128 Location: Determined by Patient Ordered By: Rosemary Mtz Complete Blood Count w/Diff (Routine) Timeframe: 20190128 Location: Determined by Patient Ordered By: Rosemary Mtz Exam Narrative Exam Narrative: General: alert and oriented, pleasant and cooperative, sitting up in the recliner with her legs elevated, in no acute distress. HEENT: normocephalic, atraumatic, EOMI, pupils equal and round, mucous membranes moist. Neck: supple, no JVD. Cardiovascular: heart has regular rate and rhythm, no murmur appreciated. Chest: with midline sternal incision healing well, well approximated, no erythema, significant edema or active drainage. Respiratory: respirations even and unlabored, no shortness of breath while speaking in complete sentences, cough improving, lung sounds clear, no rales, or wheezing. GI: abdomen soft, normoactive bowel sounds, nondistended, nontender on palpation. Extremities: LLE with mild edema. RLE with 1-2+ pitting edema; incision distal to left knee, medially, healing well, well approximated without signs of infection. Pedal pulses palpable bilaterally. DS: Data Vitals/I&O Vitals and I&O: Vital Signs Temperature 36.6 C 01/22/19 07:20 Temperature Source Tympanic 01/22/19 07:20 Pulse 77 01/22/19 08:38 Pulse Rhythm Regular 01/22/19 07:53 Pulse 89 01/15/19 15:20 Respiratory Rate 18 01/22/19 07:20 Respiratory Effort Non-Labored 01/22/19 07:53 Respiratory Depth Normal 01/22/19 07:53 Respiratory Pattern Normal 01/22/19 07:53 Blood Pressure 121/71 01/22/19 07:20 Blood Pressure Mean 80 01/15/19 15:16 Blood Pressure Position Sitting 01/15/19 10:17 Pulse Oximetry 93 L 01/22/19 10:58 Oxygen Delivery Method Room Air 01/22/19 10:58 Oxygen Flow Rate 0 01/22/19 10:58 Pain Level 5 01/22/19 09:10 Comment 01/18/19 07:45 Intake & Output 01/21/19 01/22/19 01/22/19 23:59 11:59 23:59 Intake Total 1220 / 2069.375 1070 / 1070 Output Total 110 / 4035 1000 / 1000 Balance 1110 / -1965.625 70 / 70 Weight 133 kg Intake: IV 20 / 269.375 50 / 50 Oral 1200 / 1800 1020 / 1020 Output: Urine 110 / 4035 1000 / 1000 Other: Urine Color Yellow Light [place] Urine Appearance Clear Clear Urine Odor Normal Comment unable to measure. 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 Stool Size Copious Stool Characteristics Soft Formed Voiding Methods Toilet Bedside Commode Completed studies during hospitalization [Text1]: 01/15/19: PORTABLE AP CHEST: Comparison is made with 11/21/18. The heart size and pulmonary vasculature are stable. The patient appears to be status post CABG. The right lung is clear. There is an infiltrate seen in the left lung base. There is blunting of the left costophrenic angle. This may represent a small effusion. No pneumothorax is identified. The bones appear intact. IMPRESSION: Left basilar small infiltrate and/or effusion. Date of study: 01/16/2019 Transthoracic Echocardiography M-mode, complete 2D, complete spectral Doppler, and color Doppler *STUDY CONCLUSIONS* Impressions: An atrial tachycardia rhythm was noted on this study, making this study technically difficult for the assessment of cardiac function. Summary: 1. Left ventricle: The cavity size was normal. Wall thickness was increased in a pattern of moderate LVH. Systolic function was normal. The estimated ejection fraction was 55-60%. Wall motion was normal; there were no regional wall motion abnormalities. 2. Right ventricle: The cavity size was normal. Wall thickness was increased. Systolic function was normal. 3. Pulmonary arteries: Pulmonary systolic pressure was increased, in the range of 35mm Hg to 40mm Hg. 01/21/19: PORTABLE CHEST: Comparison is made with January,. Two views were performed, both of which show respiratory motion. The exam is limited by the patient's body habitus. Multiple leads are seen over the chest. The patient is status post CABG. There are increased densities again noted in the left lung base, again representing a combination of infiltrate and effusion. The right lung is grossly clear. IMPRESSION: Stable left lower lobe infiltrate and effusion. Labs on day of discharge: Labs from last 24 hours 01/22/19 01/22/19 01/22/19 11:40 06:40 06:40 WBC 15.53 H RBC 2.99 L Hgb 9.0 L Hct 30.1 L MCV 100.7 H MCH 30.1 MCHC 29.9 L RDW 14.3 Plt Count 713 H MPV 9.4 Immature Gran % 0.5 Neutrophils % 69.3 Lymphocytes % 18.6 Monocytes % 7.6 Eosinophils % 3.9 Basophils % 0.1 Absolute Neutrophils 10.76 H Absolute Lymphocytes 2.89 Absolute Monocytes 1.18 H Absolute Eosinophils 0.61 Absolute Basophils 0.02 Differential Comment Diff reviewed RBC Morphology See below Polychromasia Present Hypochromasia 1+ Poikilocytosis 2+ Basophilic Stippling Present Sodium 142 Potassium 4.0 Chloride 100 Carbon Dioxide 39.8 H Anion Gap 2.2 L BUN 52 H Creatinine 1.75 H Estimated GFR/1.73 m2 29.08 Glucose 210 H Calcium 8.5 Magnesium 2.0 Urine Color Yellow Urine Clarity Clear Urine pH 7.0 Ur Specific [place] 1.015 Urine Protein Trace H Urine Ketones Negative Urine Blood Negative Urine Nitrite Negative Urine Bilirubin Negative Urine Urobilinogen 1.0 H Ur Leukocyte Esterase Negative Urine RBC 0-2 Urine WBC 0-2 Ur Epithelial Cells Many Urine Crystals Negative Urine Bacteria Rare Urine Casts Negative Urine Mucus Trace Ur Culture Indicated? No Urine Glucose Negative [facility] Medical History Hyperlipidemia (Chronic 08/10/00) Gout (Chronic 07/06/11) Spinal stenosis of lumbar region (Chronic 02/15/16) Restless legs (Chronic) Paroxysmal atrial fibrillation (Chronic 03/01/16) 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) Chronic obstructive lung disease (Chronic) Atrial fibrillation (Chronic) Restless leg syndrome (Chronic) Essential hypertension (Chronic) Hyperlipidemia (Chronic) History of coronary artery disease (Chronic) Abnormal mammography (Resolved) Ankle pain (Resolved 03/13/14) Carpal tunnel syndrome (Resolved 08/10/06) Cervical disc disorder with myelopathy (Resolved 08/21/08) Chest pain (Resolved) Diabetes mellitus (Resolved) Folate deficiency (Resolved 02/15/16) Hepatomegaly (Resolved) Hip joint inflamed (Resolved 09/03/15) Low back pain (Resolved 04/10/03) Menopausal syndrome (Resolved) Muscle fatigue (Resolved) Posterior tibial tendon dysfunction (Resolved) Postmenopausal bleeding (Resolved) Postoperative wound dehiscence (Resolved 12/23/15) Primary osteoarthritis of left hip (Resolved 09/17/15) Renal impairment (Resolved 07/11/03) Rotator cuff syndrome (Resolved 08/01/09) Smoker (Resolved 06/30/16) Tarsal tunnel syndrome (Resolved) Trochanteric bursitis (Resolved) Upper respiratory tract infection (Resolved 08/03/15) Vitamin D deficiency (Resolved) Atrial fibrillation COPD (chronic obstructive pulmonary disease) Carpal tunnel syndrome Cervical spondylosis with myelopathy Diabetes mellitus Gout Hypertension Spinal stenosis of lumbar region at multiple levels Vitamin D deficiency Surgical History S/P CABG (coronary artery bypass graft) (Acute ~01/15/19) H/O Spinal surgery (Resolved) H/O arthrodesis (Resolved) History of bilateral tubal ligation (Resolved) History of gynecologic surgery (Resolved) History of hip surgery (Resolved) History of orthopedic surgery (Resolved) S/P carpal tunnel release (Resolved) S/P cholecystectomy (Resolved) S/P rotator cuff repair (Resolved) Status post incision and drainage (Resolved) Arthrodesis Cholecystectomy (07/31/13) Endometrial Biopsy Left eye surgery Ligation of fallopian tube (~1980) Open Carpal Tunnel release Right wrist surgery Rotator Cuff Repair (~1980) SPINE SURGERY Total replacement of hip cervical repair (~10/2008) tarsal tunnel release (~1997) Family History Mother Diabetes Essential hypertension Personal history of malignant neoplasm Heart disease Hyperlipidemia Stroke Asthma Father Diabetes Essential hypertension Personal history of malignant neoplasm Heart disease Asthma Sister Diabetes Essential hypertension Depression Heart disease Asthma Grandfather No problems noted. Grandfather No problems noted. Grandmother Personal history of malignant neoplasm Grandmother Diabetes Aunt Personal history of malignant neoplasm Brother Hyperlipidemia Stroke Sister Asthma Son Asthma Daughter Depression Asthma Daughter Asthma Daughter Depression Neoplasm Asthma Brother No problems noted. 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
--- NOTE | 2019-01-22 12:39 | CMDISCH_ITS ---
LACE Index Scoring Tool - Questions: Length of Stay (in days): 4 - 6 Acuity (Admit via E.D.?): Yes Comorbidities: Diabetes w/o Complication, Congestive Heart Failure, Chronic Pulmonary Disease E.D. Visits: 5 - Answers: Total Score: 16 Risk of Readmission: High Risk Care Management Discharge Reason for Hospitalization: HCAP, COPD, EXAC, CHF, Acute Hypoxic Respiratory Failure Discharge Plan: Ann-Marie will discharge to her daughter's home in [place], [place]. She will have new orders for [facility] for new RN, and PT. Ann-Marie reports having all needed DME including shower chair, walker, commode, grab rails and hand held shower. She states her daughter's home is all one level. Ann-Marie will transport via private vehicle with family. Patient/Family Education Needs: Review of discharge instructions, discuss Ask Me Three. Services Needed at Discharge: Home Health Care Services (RN, PT)
--- NOTE | 2019-01-22 14:24 | PDOC.HHF2F ---
1. Encounter Date and Reason I certify that NARENDRA BOYER was seen by Rosemary Mtz on 01/22/19 and that I had a [id number] encounter with this patient that meets the physician face to face encounter requirements. 2. Clinical Findings Supporting Skilled Need and Homebound Status I certify that home health services are medically necessary, include either intermittent shelter and/or physical/speech therapy, and that this patient is homebound in that absences from the home require considerable and taxing effort and are infrequent or of short duration, or are attributable to the need to receive medical care. [X] (a) Attached documentation from encounter provides clinical findings supporting skilled need and homebound status (including what assistance patient requires to leave the home). The encounter with the patient was in whole, or in part, for the following medical condition, which is the primary reason for home health care: HCAP,COPD EXAC,CHF,ACUTE HYPOXIC RESPIRATORY FAILURE, recent CABG Group Home: Needed to monitor fluid status, weights, lung sounds, vital signs, assist with medication management, monitor incisions. Please draw CBC with Differential and BMP on 01/28/19 with results to PCP. Physical Therapy: Needed to continue to work on strength and endurance after hospitalization. Patient will benefit from home health PT services in order to maximize activity tolerance in preparation for phase 2 outpatient cardiac rehab participation s/p CABG. Speech Therapy: Homebound: Unable to leave home without assistance. 3. Certification and Authentication I certify that I composed the above information based on my clinical judgement relating to this patient's medical condition and, if applicable, clinical findings communicated to me by the NPP or inpatient physician who performed the Home Health Referral. All further orders will be obtained through ____Dr. Mcmahon (Community Based Physician - PCP)
--- NOTE | 2019-01-22 14:28 | HHF2F_ITS ---
1. Encounter Date and Reason I certify that NARENDRA BOYER was seen by Rosemary Mtz on 01/22/19 and that I had a [id number] encounter with this patient that meets the physician face to face encounter requirements. 2. Clinical Findings Supporting Skilled Need and Homebound Status I certify that home health services are medically necessary, include either intermittent [place] [facility] and/or physical/speech therapy, and that this patient is homebound in that absences from the home require considerable and taxing effort and are infrequent or of short duration, or are attributable to the need to receive medical care. [X] (a) Attached documentation from encounter provides clinical findings supporting skilled need and homebound status (including what assistance patient requires to leave the home). The encounter with the patient was in whole, or in part, for the following medical condition, which is the primary reason for home health care: HCAP,COPD EXAC,CHF,ACUTE HYPOXIC RESPIRATORY FAILURE, recent CABG Nursing Home: Needed to monitor fluid status, weights, lung sounds, vital signs, assist with medication management, monitor incisions. Please draw CBC with Differential and BMP on 01/28/19 with results to PCP. Physical Therapy: Needed to continue to work on strength and endurance after hospitalization. Patient will benefit from home health PT services in order to maximize activity tolerance in preparation for phase 2 outpatient cardiac rehab participation s/p CABG. Speech Therapy: Homebound: Unable to leave home without assistance. 3. Certification and Authentication I certify that I composed the above information based on my clinical judgement relating to this patient's medical condition and, if applicable, clinical findings communicated to me by the NPP or inpatient physician who performed the Home Health Referral. All further orders will be obtained through ____Dr. Mcmahon (Community Based Physician - PCP)
--- NOTE | 2019-01-23 17:21 | INDS_ITS ---
Date of service: 01/22/19 Time of Service: 10:54 PT Notes Inpatient Physical Therapy Discharge Summary Dates: 01/22/2019 Dates of Service: 01/16/2019 through 01/22/2019 Referring Doctor: Elvira Mims MD PT Orders: PT CONSULT: Eval/Treat Precautions: Fall. Standard. Median sternotomy precautions. On contact precautions. Patient Profile/Admitting Diagnosis: Orders received for this 68-year-old female who was admitted on 01/15/2019 from [facility] [place] with chief complaints of shortness of breath, cough, and wheezing. Patient was diagnosed with healthcare acquired pneumonia, CABG x 3 on due to NSTEMI with LVEF of 61%, and Stage 3 kidney disease with GFR of 30 to 59 mL/min. 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) Chronic obstructive lung disease (Chronic) Atrial fibrillation (Chronic) Restless leg syndrome (Chronic) Essential hypertension (Chronic) Hyperlipidemia (Chronic) History of coronary artery disease (Chronic) Abnormal mammography (Resolved) Ankle pain (Resolved 03/13/14) Carpal tunnel syndrome (Resolved 08/10/06) Cervical disc disorder with myelopathy (Resolved 08/21/08) Chest pain (Resolved) Diabetes mellitus (Resolved) Folate deficiency (Resolved 02/15/16) Hepatomegaly (Resolved) Hip joint inflamed (Resolved 09/03/15) Low back pain (Resolved 04/10/03) Menopausal syndrome (Resolved) Muscle fatigue (Resolved) Posterior tibial tendon dysfunction (Resolved) Postmenopausal bleeding (Resolved) Postoperative wound dehiscence (Resolved 12/23/15) Primary osteoarthritis of left hip (Resolved 09/17/15) Renal impairment (Resolved 07/11/03) Rotator cuff syndrome (Resolved 08/01/09) Smoker (Resolved 06/30/16) Tarsal tunnel syndrome (Resolved) Trochanteric bursitis (Resolved) Upper respiratory tract infection (Resolved 08/03/15) Vitamin D deficiency (Resolved) Atrial fibrillation COPD (chronic obstructive pulmonary disease) Carpal tunnel syndrome Cervical spondylosis with myelopathy Diabetes mellitus Gout Hypertension Spinal stenosis of lumbar region at multiple levels Vitamin D deficiency Surgical History S/P CABG (coronary artery bypass graft) (Acute ~01/15/19) H/O Spinal surgery (Resolved) H/O arthrodesis (Resolved) History of bilateral tubal ligation (Resolved) History of gynecologic surgery (Resolved) History of hip surgery (Resolved) History of orthopedic surgery (Resolved) S/P carpal tunnel release (Resolved) S/P cholecystectomy (Resolved) S/P rotator cuff repair (Resolved) Status post incision and drainage (Resolved) Arthrodesis Cholecystectomy (07/31/13) Endometrial Biopsy Left eye surgery Ligation of fallopian tube (~1980) Open Carpal Tunnel release Right wrist surgery Rotator Cuff Repair (~1980) SPINE SURGERY Total replacement of hip cervical repair (~10/2008) tarsal tunnel release (~1997) Social History/Home Situation: Ann-Marie states that she was living in a community home renting a room prior to her CABGx3 and a short term stay at [facility]. She was independent with all aspects of ADLs without the need for use of assistive ambulatory device nor an adaptive equipment. She states that the daughter has a ramp to enter the house with rails on both sides. The ramp goes onto the porch that leads to the kitchen. She reports that the home was sold and her children moved all of her stuff out and rented a storage group home. She notes that she left her in August and that she is (I) with all ADLs/IADLs at her baseline level of function. Patient reports that her plan is to move into her daughters home. She states that her daughter has a tub/shower with no grab bars but they can put one up. Equipment Owned/DME: 2-FWW, 2-shower chairs, 2-canes, grab bars, sock aid, shoe horns Subjective: Patient pleasant and cooperative. She is agreeable to treatment session today. Patient has good mastery of sternotomy precautions. She looks forward to going home today to daughter's house. Objective: General Observation: Patient seen resting on chair. Median sternotomy incision well approximated. Mental Status: Alert and oriented x3 Pain: 0/10 ROM: Right Upper Extremity: Shoulder movements done only up to limits of movement precautions related to median sternotomy. Elbow flexion WFL. Wrist flexion WFL. Functional opening and closing of hand WFL. Left Upper Extremity: Shoulder movements done only up to limits of movement precautions related to median sternotomy. Elbow flexion WFL. Wrist flexion WFL. Functional opening and closing of hand WFL. WFL. Ankle dorsiflexion WFL. Ankle plantarflexion WFL. Right Lower Extremity: Hip flexion 0-110 wth range limited by abdominal panniculus. Hip abduction WFL. Knee flexion WFL. Ankle dorsiflexion WFL. Ankle plantarflexion WFL. Left Lower Extremity: Hip flexion 0-110 with range limited by abdominal panniculus. Hip abduction WFL. Knee flexion WFL. Ankle dorsiflexion WFL. Ankle plantarflexion WFL. Strength: Right Upper Extremity: Shoulder muscles not tested as median sternotomy precautions are still in effect with CABG x 3 done on 01/03/2019. Elbow flexors 5/5. Elbow extensors 5/5. Scrap Preparer strong. Left Upper Extremity: Shoulder muscles not tested as median sternotomy precautions are still in effect with CABG x 3 done on 01/03/2019. Elbow flexors 5/5. Elbow extensors 5/5. Scrap Preparer strong. Right Lower Extremity: Hip flexors 3-/5. Hip abductors 4-/5. Knee flexors 4-/5. Knee extensors 5/5. Ankle dorsiflexors 5/5. Ankle plantarflexors 5/5. Left Lower Extremity:Hip flexors 3-/5. Hip abductors 4/5. Knee flexors 4+/5. Knee extensors 4+/5. Ankle dorsiflexors 5/5. Ankle plantarflexors 5/5. Sensation: Intact as to pain and pressure to BLEs Bed Mobility/Transfers: Rolling independent Supine to sit independent with head of bed between 30 to 45 degrees Sit to supine independent with bed placed at lowest level to allow for independent placement of BLE Sit to stand I with bed elevated at least 22 inches from floor to minimize excessive pushing on B UE and trunk bending; SBA from recliner Stand to sit I with bed elevated at least 22 inches from floor to for more controlled descent; SBA from recliner Bed to chair I with bed elevated at least 22 inches from floor to for more controlled descent Chair to bed I with bed elevated at least 22 inches from floor to for more controlled descent Gait: Patient tolerated 80-150 feet of level surface ambulation using FWW with supervision with oxygen saturation staying above 90% and heart rate staying between 60 to 100 bpm. Balance: Static Sitting: Good Dynamic Sitting: Good Static Standing: Good Dynamic Standing: Fair Assessment: Patient is a 68- year-old female referred to physical therapy services with the diagnosis of pneumonia, CABG x3 on 425 due to NSTEMI, and Stage III disease. Patient presents with clinical signs and symptoms consistent with current/admitting diagnoses that have resulted to mobility limitations, gait instability, generalized weakness, and impairment of motor control as demonstrated by the following impairment level findings: 1. Decreased strength to B LE major muscle groups 2. Impaired sitting/standing balance 3. Impaired activity tolerance 4. Median sternotomy movement precautions status post CABG x3 Impairments are contributing to the following functional limitations: 1. Increased completion time for mobility ADL performance, needs frequent rests 2. Fall risk 3. Inability to negotiate ramps without assistance Goals: Goals X1 week 1. Supine-Sit independent with HOB flat NOT MET 2. Sit-Supine independent with HOB flat NOT MET 3. Sit-Stand independent with bed height 20 inches from floor NOT MET 4. Stand-Sit independent with bed height 20 inches from floor NOT MET 5. Bed-Chair independent with bed height 20 inches from floor NOT MET 6. Chair-Bed independent with bed height 20 inches from floor NOT MET 7. Independent gait on level surface without use of assistive ambulatory device for at least 300 feet without report of chest pain nor dyspnea NOT MET 8. Independent with home exercise program NOT MET 9. Good dynamic standing balance/tolerance NOT MET 10. Patient will perform 2-minute walk test without AD of at least 100 feet without report of chest pain nor dyspnea Plan of Care/Treatment Plan: 1-2x/day, 7 days/week x 1 week. Plan of care has been reviewed with the CONTINUOUS MINER providing the service under Physical Therapy direction. Initiate Physical Therapy intervention for strengthening, bed mobility, transfers, gait, stairs, balance training, use of assistive device. DISCHARGE RECOMMENDATIONS: Patient will benefit from home health physical therapy services in order to prepare patient for phase 2 outpatient cardiac rehab program, reduce fall risk, maximize functional mobility level, and to assess home safety at daughter's house. TREATMENT CODE/TIME: 22282 for 17 minutes beginning at 10:54 AM. Thank you for this referral. Kathryn Sainz, PT, DPT, CLT [facility] SUBJECTIVE: OBJECTIVE: [] Pain: [] ROM: [] L UE: [] R UE: [] L LE: [] R LE: [] STRENGTH: L UE: [] R UE: [] L LE: [] R LE: [] BED MOBILITY/TRANSFERS: Supine-sit [] Sit-supine [] Sit-stand [] Stand-sit [] Bed-Chair [] Chair-bed [] GAIT: BALANCE: Static sitting Dynamic sitting Static standing Dynamic standing SPECIAL TESTS: [] ASSESSMENT: [] GOALS ( Met / Not Met): [] Goals: [] DISCHARGE PLAN/RECOMMENDATIONS: []
== END 2019-01-22 15:00 | disposition home health service (06) | DRG 193 ==
LOC: ER 15:50 → MS 16:17
PROVIDERS: Internal Medicine; Nurse Practitioner; Nurse Practitioner Family; Admitting Provider Internal Medicine; Emergency Provider Physician Assistant; PCP Family Medicine; Visit Provider Internal Medicine
DX: J18.1 Lobar pneumonia, unspecified organism (principal); J96.01 Acute respiratory failure with hypoxia; J44.0 Chronic obstructive pulmonary disease with (acute) lower respiratory infection; J44.1 Chronic obstructive pulmonary disease with (acute) exacerbation; I97.89 Other postprocedural complications and disorders of the circulatory system, not elsewhere classified; I48.92 Unspecified atrial flutter; N17.9 Acute kidney failure, unspecified; Y95 Nosocomial condition; E87.70 Fluid overload, unspecified; Z95.1 Presence of aortocoronary bypass graft; E78.5 Hyperlipidemia, unspecified; E66.9 Obesity, unspecified; I48.0 Paroxysmal atrial fibrillation; Z79.01 Long term (current) use of anticoagulants; E11.22 Type 2 diabetes mellitus with diabetic chronic kidney disease; I12.9 Hypertensive chronic kidney disease with stage 1 through stage 4 chronic kidney disease, or unspecified chronic kidney disease; I25.2 Old myocardial infarction; I25.10 Atherosclerotic heart disease of native coronary artery without angina pectoris; Y83.2 Surgical operation with anastomosis, bypass or graft as the cause of abnormal reaction of the patient, or of later complication, without mention of misadventure at the time of the procedure; Z79.84 Long term (current) use of oral hypoglycemic drugs; N18.3 Chronic kidney disease, stage 3 (moderate)
CPT/HCPCS: 36415; 36569; 80048; 80053; 80076; 85027; 87040; 87081; 93005; 94640; 96365; 96368; 97161; 97165; 97530; 99222; 99231; 99232; 99233; 99239; 99285; 71045; 80202; 81003; 81015; 83735; 83880; 84443; 84484; 85025; 87070; 87205; 93010; 93306; J1644; J1940; J2543; J2930; J3370; J3490; J7512; J7613; J7620

== ENCOUNTER 2019-01-15 10:20 | Outpatient (CLI) | payer BC, SELFPAY ==
[2019-01-15 11:46] LABS: Anion Gap 7.3 mmol/L (3-11); BUN 22 mg/dL (7-18); CO2 30.7 mmol/L (21.0-32.0); CREATININE 1.35 mg/dL (0.55-1.02); Calcium 8.8 mg/dL (8.5-10.1); Chloride 103 mmol/L (98-107); Estimated GFR 39.23 (mL/min/1.73m2); Glucose 145 mg/dL (70-100); Potassium 4.7 mmol/L (3.5-5.1); Sodium 141 mmol/L (136-145)
== END 2019-01-15 10:40 ==
PROVIDERS: PCP Family Medicine; Visit Provider Nurse Practitioner Adult Health
DX: I25.10 Atherosclerotic heart disease of native coronary artery without angina pectoris
CPT/HCPCS: 36415; 80048; 83036

== ENCOUNTER 2019-01-29 01:21 | Outpatient (CLI) | payer BC, MEDICARE, SELFPAY ==
[2019-01-29 11:04] LABS: Abs Immature Grans 0.21 k/cumm (0.0-0.09); Absolute Basophil Count 0.03 k/cumm (0.0-0.2); Absolute Monocyte Count 1.59 k/cumm (0.11-0.7); Basophils % 0.1; Eosinophils % 2.3; HCT 35.7 % (36.0-46.0); HGB 10.8 g/dL (12.0-15.5); Immature Grans % 0.8; Lymphocytes % 5.5; Mean Corp. HGB Concentration 30.3 g/dL (32.0-36.0); Mean Corpuscular Hemoglobin 30.3 pg (27.0-33.0); Mean Platelet Volume 9.8 fL (8.0-11.0); Monocytes % 6.3; Platelet Count 585 x1000/uL (130-400); RBC 3.57 m/cumm (4.00-5.20); RBC Distribution Width 14.6 % (11.7-14.6)
[2019-01-29 11:39] LABS: Absolute Eosinophil Count 0.58 k/cumm (0.0-0.7); Absolute Lymphocyte Count 1.39 k/cumm (1.2-3.4); Absolute Neutrophil Count 21.48 k/cumm (1.2-6.7); White Blood Cell Count 25.27 k/cumm (4.4-10.8)
[2019-01-29 11:40] LABS: Basophilic Stippling Present; Diff Comment Agrees w/ Instrument; Macrocytosis 1+; Polychromasia Present
[2019-01-29 12:56] LABS: Anion Gap 11.9 mmol/L (3-11); BUN 50 mg/dL (7-18); CO2 28.1 mmol/L (21.0-32.0); CREATININE 2.18 mg/dL (0.55-1.02); Calcium 9.8 mg/dL (8.5-10.1); Chloride 98 mmol/L (98-107); Estimated GFR 22.57 (mL/min/1.73m2); Glucose 320 mg/dL (70-100); Potassium 5.3 mmol/L (3.5-5.1); Sodium 138 mmol/L (136-145)
== END 2019-01-29 01:41 ==
PROVIDERS: PCP Family Medicine; Visit Provider Nurse Practitioner
DX: N18.3 Chronic kidney disease, stage 3 (moderate) (principal); J18.9 Pneumonia, unspecified organism
CPT/HCPCS: 36415; 80048; 85025

== ENCOUNTER 2019-02-02 17:13 | Inpatient (IN) | payer BC, MEDICARE, SELFPAY ==
[2019-02-02] VITALS (63 sets, daily range): BP systolic 92–147; BP diastolic 52–92; PULSE 111–169; RESP 17–57; TEMP 36.5–37.7; O2SAT 86–96
--- NOTE | 2019-02-02 17:40 | DI.RAD_ITS ---
SYMPTOMS/DIAGNOSIS: RT CHEST PAIN, TACHYCARDIA AP AND LATERAL CHEST: Comparison 01/21/19. The heart size appears stable. Sternal wires are in place. Post surgical changes are seen in the cervical and upper thoracic spine. There has been improvement in the opacity in the left lung base. Small opacity persist. There has been improvement of the left pleural effusion. There are persistent tiny bilateral pleural effusions. No new infiltrates or pneumothoraces are identified. IMPRESSION: Overall improvement in the appearance of the chest with a persistent but decreased in size left basilar infiltrate and small bilateral pleural effusions.
[2019-02-02 18:24] LABS: Lactate-non-spesis 1.9 mmol/l (0.6-1.4)
[2019-02-02 18:25] LABS: Abs Immature Grans 0.11 k/cumm (0.0-0.09); Absolute Lymphocyte Count 0.89 k/cumm (1.2-3.4); Basophils % 0.1; Eosinophils % 1.1; HCT 31.8 % (36.0-46.0); HGB 9.8 g/dL (12.0-15.5); Immature Grans % 0.5; Lymphocytes % 3.8; Mean Corp. HGB Concentration 30.8 g/dL (32.0-36.0); Mean Corpuscular Hemoglobin 30.5 pg (27.0-33.0); Mean Corpuscular Volume 99.1 fL (80-95); Mean Platelet Volume 9.9 fL (8.0-11.0); Monocytes % 5.3; Neutrophils % 89.2; Platelet Count 396 x1000/uL (130-400); RBC 3.21 m/cumm (4.00-5.20); RBC Distribution Width 14.7 % (11.7-14.6); White Blood Cell Count 23.38 k/cumm (4.4-10.8)
[2019-02-02] MEDS: Normal Saline 1,000 ML 1000 ML IV (18:30)
[2019-02-02 18:32] LABS: Absolute Basophil Count 0.02 k/cumm (0.0-0.2); Absolute Eosinophil Count 0.26 k/cumm (0.0-0.7); Absolute Monocyte Count 1.24 k/cumm (0.11-0.7); Absolute Neutrophil Count 20.85 k/cumm (1.2-6.7)
[2019-02-02 18:35] LABS: INR 1.2 (0.9-1.1); Prothrombin Time 11.6 sec (9.3-11.0)
[2019-02-02 18:45] LABS: ALT 29 U/L (12-78); AST 11 U/L (15-37); Albumin 2.8 g/dL (3.4-5.0); Alkaline Phosphatase 124 U/L (46-116); Anion Gap 9.1 mmol/L (3-11); BUN 40 mg/dL (7-18); Bilirubin, Total 0.8 mg/dL (0.2-1.0); CO2 27.9 mmol/L (21.0-32.0); CREATININE 1.89 mg/dL (0.55-1.02); Calcium 8.9 mg/dL (8.5-10.1); Chloride 97 mmol/L (98-107); Estimated GFR 26.61 (mL/min/1.73m2); Glucose 228 mg/dL (70-100); Potassium 3.6 mmol/L (3.5-5.1); Sodium 134 mmol/L (136-145)
[2019-02-02 18:47] LABS: Troponin I 0.25 ng/mL (0.00-0.06)
--- NOTE | 2019-02-02 18:55 | DI.VRAD_ITS ---
EXAM: XR Chest, 2 Views EXAM DATE/TIME: 02/02/2019 17:41 CLINICAL HISTORY: 68 years old, female; Signs and symptoms; Other: Chest pain, tachy; Prior surgery; Surgery date: 1-6 months; Surgery type: Triple bypass TECHNIQUE: Imaging protocol: XR of the chest, 2 views. COMPARISON: CR XR PORTABLE CHEST AP 01/21/2019 11:15 FINDINGS: Lungs: Improved aeration of the left lung base. Patchy opacities definitely have improved. Pleural space: Stable trace right pleural effusion. Significant decrease in the trace left pleural effusion. Heart/Mediastinum: CABG. Stable mild cardiomegaly without significant volume overload. Bones/joints: Cervical fixation hardware appears stable. Median sternotomy wires. IMPRESSION: 1. Stable mild cardiomegaly without significant volume overload. 2. Improved aeration of the left lung base. 3. Stable trace right pleural effusion. Significant decrease in the trace left pleural effusion. Probable overlying subsegmental atelectasis. Dictated and Authenticated by: Amanda Carlos MD. Ordering:MARIEL Ayala MD
--- NOTE | 2019-02-02 19:10 | DI.CT_ITS ---
SYMPTOMS/DIAGNOSIS: RT CHEST PAIN, ? PE CTA OF THE CHEST: CT angiography was performed with multi slice acquisition and multi planar and 3D reconstruction. There is atherosclerosis of the thoracic aorta but no aneurysm or dissection is seen. No filling defects are seen to suggest pulmonary embolic disease. The heart size is within normal limits. No significant pericardial effusion is seen. There is a moderate left and a small right pleural effusion. No significant thoracic adenopathy is present. There are subjacent infiltrates seen in the lung bases bilaterally. These may represent atelectasis or pneumonia. The tracheobronchial tree is unremarkable. No evidence of a pneumothorax is present. Sternal wires are in place. Degenerative changes are present in the spine. There is edema seen in the anterior mediastinum likely reflecting recent thoracic surgery. There is patient motion artifact present. The adrenal nodules are unchanged compared to the prior examination from 01/30/18. IMPRESSION: 1. No evidence of a pulmonary embolus, thoracic aortic dissection or aneurysm. 2. Bilateral pleural effusions, left greater than right. 3. Bilateral basilar air space opacities. This may represent atelectasis or pneumonia. 4. Recent post surgical changes in the chest.
--- NOTE | 2019-02-02 19:12 | W.ED.GENAD ---
Discharge Plan Disposition Patient Disposition: [facility] INPATIENT Condition: Improving Discharge Details Chief Complaint: Chest/Rib Clinical Impression: Atrial flutter, Hospital acquired PNA, Chest pain, Non-ST elevation UT (NSTEMI) Primary Care Provider: Laisha Mcmahon ED Provider: Jamie Leos Home Meds and New Rx's Prescriptions: No Action omeprazole 40 mg capsule,delayed release(DR/EC) 40 mg PO DAILY Qty: 90 RF: 5 lancets 25 gauge misc .ROUTE .MEDSUPPLY Qty: 100 RF: 5 Victoza 2-Erick 0.6 mg/0.1 mL (18 mg/3 mL) pen injector 0.6 mg SC DAILY Qty: 6 RF: 4 pen needle, diabetic [1st Tier Unifine Pentips] 31 gauge x 1/4 needle .ROUTE .MEDSUPPLY Qty: 30 RF: 5 Blood Glucose Test strip .ROUTE .MEDSUPPLY Qty: 100 RF: 5 lancets [OneTouch Delica Lancets] 33 gauge misc .ROUTE DAILY Qty: 100 RF: 0 allopurinol 100 mg tablet 100 mg PO DAILY Qty: 90 RF: 12 gabapentin 600 mg tablet 600 mg PO TID Qty: 270 RF: 12 glipizide 10 mg tablet extended release 24hr 10 mg PO DAILY Qty: 90 RF: 11 atorvastatin 40 mg tablet 40 mg PO DAILY Qty: 90 RF: 6 duloxetine 60 mg capsule,delayed release(DR/EC) 60 mg PO DAILY Qty: 90 RF: 12 epinephrine [EpiPen 2-Erick] 0.3 MG/0.3 ML auto-injector 0.3 mg IM ONCE Qty: 2 RF: 10 folic acid 1 mg tablet 1 mg PO DAILY Qty: 90 RF: 5 nystatin 100,000 unit/gram cream 1 applic Topical BID PRN (Reason: yeast) Qty: 30 RF: 2 meclizine 12.5 mg tablet 25 mg PO TID PRN (Reason: dizziness) Qty: 60 RF: 3 ergocalciferol (vitamin D2) [Vitamin D2] 50,000 unit capsule 50,000 unit PO -- Qty: 36 RF: 4 cyanocobalamin (vitamin B-12) [Vitamin B-12] 500 MCG tablet 1,000 mcg PO DAILY Qty: 100 RF: 0 albuterol sulfate 2.5 mg /3 mL (0.083 %) Solution For Nebulization 2.5 mg INHALATION QID PRNRF: 0 polyethylene glycol 3350 [Miralax] 17 gram Powder In Packet 1 g PO PRN PRNRF: 0 magnesium hydroxide [Milk of Magnesia] 400 mg/5 mL Suspension 30 ml PO PRN PRN (Reason: Constipation) RF: 0 ropinirole [Requip] 2 mg tablet 2 mg PO QPM PRNRF: 0 calcium carbonate-vitamin D3 [Calcium 600 + D(3)] 600 mg(1,500mg) -200 unit Tablet 2 tab PO BID Qty: 60 RF: 0 aspirin [Aspir-81] 81 mg Tablet,Delayed Release (Dr/Ec) 81 mg PO DAILY Qty: 30 RF: 0 acetaminophen [Tylenol Extra Strength] 500 mg Tablet 1,000 mg PO Q8H PRN PRN (Reason: Pain) Qty: 0 RF: 0 oxycodone 5 mg Tablet 5 mg PO Q4H PRN PRN (Reason: Pain) Qty: 18 RF: 0 fluticasone propion-salmeterol [Advair Diskus] 100-50 mcg/dose Blister With Device 2 puff Inhalation BID RF: 0 furosemide 40 mg tablet 20 mg PO DAILY RF: 0 Medical Decision Making Upon my evaluation, this patient had a high probability of imminent or life-threatening deterioration, which required my direct attention, intervention, and personal management. I have personally provided 75 minutes of critical care time exclusive of time spent on separately billable procedures. Time includes review of laboratory data, radiology results, discussion with consultants, and monitoring for potential decompensation. Interventions were performed as documented above. This is a 68-year-old female with multiple medical problems including recent CABG on January 05 at [facility], subsequent admission here at [facility] for hospital-acquired pneumonia with discharge on 01/22, who used to have paroxysmal A. fib, but is currently not on any anticoagulants. She states that she has not been on any since her CABG. She is only been taking a daily aspirin. She presents today with 24 hours of right-sided chest pain, it is pleuritic, with associated cough. She is notably short of breath. She denies any vomiting or diarrhea. She has had a notable decrease in oral liquid intake. She denies any history of PE. Physical exam demonstrates notable tachycardia, crackles in the bases notably worse in the right than the left. Patient is mildly hypoxic in the mid 80s. EKG demonstrates sinus tachycardia at this time. Differential is broad and includes PE, sepsis, pneumonia, NSTEMI. We will rehydrate, and reassess. Most recent echo from 01/16/2019 demonstrates an ejection fraction of 50 to 60%. 7:30 PM Laboratory work-up has returned, the patient is notably elevated white count at 22, left shift, elevated lactate at 1.9. Creatinine is 1.89, which is similar to previous levels recently. GFR is decreased at 26, however she has become this low before. In spite of fluid resuscitation the patient's heart rate has not returned. Troponin has returned and is mildly elevated at 0.25. TSH is normal, proBNP is elevated at 5000, which is near her last value. With her recent surgery, pleuritic chest pain, tachycardia, and no longer being on an anticoagulant differential still does include PE. The patient did have a CT angiogram on her last visit and her renal function remained stable with this I did discuss the risks and benefits of a CT scan with contrast, including severe renal disease, and worsening renal function, but we also discussed the risks of potential pulmonary embolism if not properly diagnosed and treated as she is no longer on anti-coagulation. Understanding the risks and benefits the patient has elected to go ahead with a CT scan, which I think is certainly indicated given the current clinical scenario. [address] scan results have returned, no evidence of PE per virtual radiology read, however there is notable atelectasis and concern for pneumonia particularly on the right which would correlate with the patient's pain and her lung findings on auscultation. In spite of fluids, the patient's heart rate remains elevated. We did trial 5 mg of Cardizem this revealed no improvement. Did contact [facility] and discussed the EKG with them as well. With her current rate of 155, and Dr Soria does recommend an adenosine trial. An initial 6 mg followed by an additional 12 mg were given, during which time the heart rate did slow demonstrates evidence of atrial flutter. We will give an additional 5 of Cardizem and start her on a Cardizem infusion. Additionally antibiotics have been started for her pneumonia which I suspect is hospital-acquired with her multiple visits. We have given Zosyn, doxycycline, and Linezolid out of concern for kidney injury. 9:30 PM I discussed the case again with Dr. Soria, she agrees to the current plan. With the patient's negligible troponin of 0.25, she does not recommend transfer for this. She recommends serial troponins and aggressive management with Cardizem and potential beta-blockers as needed. She does recommend heparinization for potential cardioversion if the patient does not respond to the Cardizem. She recommends that we keep the patient here for the meantime. I did contact Dr. Harden with him, and discussed the case with him. He agrees to the assessment and plan. The patient will be admitted to the ICU. I have extensively reviewed the treatment plan with the patient. I have addressed all patient concerns at this time. I have also discussed the plan with the admitting physician and they agree with the current assessment and plan and have agreed to assume responsibility for the patient. All parties demonstrate verbal understanding and agreement with our assessment and plan at this time. EKG 20: 50 Rate 127, QTc 445, atrial flutter during adenosine phase, followed by a notable tachycardia. No significant ST elevations or depressions per EKG 17: 34 Rate 163, QTc 412, QRS 94, sinus tachycardia, nonspecific [address] depression in V4, inverted T wave in V4 V5 and V6. No reciprocal ST elevation. Comparison: CR XR PORTABLE CHEST AP 01/21/2019 11:15 Findings: Lungs: Improved aeration of the left lung base. Patchy opacities definitely have improved. Pleural space: Stable trace right pleural effusion. Significant decrease in the trace left pleural effusion. Heart/Mediastinum: CABG. Stable mild cardiomegaly without significant volume overload. Bones/joints: Cervical fixation hardware appears stable. Median sternotomy wires. Impression: 1. Stable mild cardiomegaly without significant volume overload. 2. Improved aeration of the left lung base. 3. Stable trace right pleural effusion. Significant decrease in the trace left pleural effusion. Probable overlying subsegmental atelectasis. Dictated and Authenticated by: Amanda Carlos MD. EXAM: CT Angiography Chest With Contrast EXAM DATE/TIME: 02/02/2019 19:11 CLINICAL HISTORY: 68 years old, female; Right-sided chest pain; Prior surgery; Surgery date: 1-6 months; Surgery type: Triple bypass; Patient HX: Right chest pain; Additional info: R/O pe TECHNIQUE: Imaging protocol: Axial computed tomographic angiography images of the chest with intravenous contrast using CT angiography protocol. Coronal and sagittal reformatted images were created and reviewed. 3D rendering: MIP reconstructed images were created and reviewed. COMPARISON: CT CHEST PE CTA 12/30/2018 15:45 FINDINGS: Pulmonary arteries: No main, lobar or proximal segmental pulmonary artery emboli. Aorta: No aortic aneurysm. No aortic dissection. Lungs: Airspace opacities right greater than left lung base. Scattered additional areas of subsegmental atelectasis. There are a few very small subcentimeter nodules. Not in a specific centrilobular distribution. Follow-up as per institutional protocol. Pleural space: Moderate left, small right pleural effusions. Heart: CABG. Mediastinum: Mild edema in the anterior mediastinum with no measurable fluid collection or significant blood products. Lymph nodes: No enlarged lymph nodes. Bones/joints: Cervical and thoracic fixation hardware anteriorly. Mild diastases of the sternum across multiple median sternotomy wires. Soft tissues: No suspicious lesions. IMPRESSION: 1. No main, lobar or proximal segmental pulmonary artery emboli. 2. Moderate left, small right pleural effusions. 3. Airspace opacities right greater than left lung base. The right lung base opacity is more concerning for pneumonia or aspiration, on the left appearance is more suggestive of compressive atelectasis. 4. Mild edema in the anterior mediastinum compatible with recent surgery. 5. Incidental findings as described. Dictated and Authenticated by: Amanda Carlos MD. Ordering:MARIEL Ayala MD HPI General Date/Time Provider Initiated Documentation: 02/02/19 17:39. HPI Narrative: This is a 68-year-old female with a past medical history of a CABG at [facility] in January 05, cholecystectomy, previous paroxysmal A. fib for which she was on xarelto previously, but now no longer is, diabetes, chronic kidney disease, COPD. She presents today for evaluation of chest pain, shortness of breath, palpitations, cough, chills. After her initial CABG in December, she eventually came back to the [facility] ED where she was admitted for pneumonia. She had a slightly prolonged hospital course, was treated with IV antibiotics and then discharged to home health on the . Since then she states she has been doing well, however in the last 24 to 36 hours she states that she developed a sudden onset of right-sided chest pain, it was pleuritic in nature, she has an associated cough with productive sputum. She denies any fevers. The pain is described as achy in the right aspect of her chest. She has no pain over the central aspect of her sternum at the sternotomy site. She denies any vomiting or diarrhea. She denies any focal abdominal pain. She denies any history of blood clots. As stated previously she has not been on any blood thinners since her surgery except for aspirin per patient statement. The patient denies any other complaints at this time. No other modifying factors. She does admit to significantly decreased oral intake over the last few days. Related Data Home Medications Medication Instructions Recorded Confirmed cyanocobalamin (vitamin B-12) 1,000 mcg PO DAILY #100 tab 02/16/17 02/02/19 [Vitamin B-12] epinephrine [EpiPen 2-Erick] 0.3 mg IM ONCE #2 dose 12/11/17 02/02/19 folic acid 1 mg tablet 1 mg PO DAILY #90 tab 05/21/18 02/02/19 atorvastatin 40 mg tablet 40 mg PO DAILY #90 tab-cap 06/14/18 02/02/19 duloxetine 60 mg capsule,delayed 60 mg PO DAILY #90 tab-cap 06/14/18 02/02/19 release allopurinol 100 mg tablet 100 mg PO DAILY #90 tab-cap 08/09/18 02/02/19 gabapentin 600 mg tablet 600 mg PO TID #270 tab-cap 08/09/18 02/02/19 glipizide ER 10 mg tablet, 10 mg PO DAILY #90 tab-cap 08/09/18 02/02/19 extended release 24 hr nystatin 100,000 unit/gram topical 1 applic TOPICAL BID PRN #30 gm 12/04/18 02/02/19 cream meclizine 12.5 mg tablet 25 mg PO TID PRN #60 tab 12/17/18 02/02/19 blood sugar diagnostic strips #100 each 12/18/18 01/29/19 lancets 33 gauge #100 each 12/18/18 01/29/19 liraglutide 0.6 mg/0.1 mL (18 mg/3 0.6 mg SC DAILY #6 ml 12/18/18 02/02/19 mL) subcutaneous pen injector pen needle, diabetic 31 gauge x #30 each 12/18/18 01/29/19 1/4 albuterol sulfate 2.5 mg INHALATION QID PRN 01/15/19 02/02/19 magnesium hydroxide [Milk of 30 ml PO PRN PRN 01/15/19 02/02/19 Magnesia] polyethylene glycol 3350 [Miralax] 1 g PO PRN PRN 01/15/19 02/02/19 ropinirole [Requip] 2 mg PO QPM PRN 01/15/19 02/02/19 acetaminophen [Tylenol Extra 1,000 mg PO Q8H PRN PRN #0 tab 01/22/19 02/02/19 Strength] aspirin [Aspir-81] 81 mg PO DAILY #30 tab 01/22/19 02/02/19 calcium carbonate-vitamin D3 2 tab PO BID #60 tab 01/22/19 02/02/19 [Calcium 600 + D(3)] oxycodone 5 mg PO Q4H PRN PRN #18 tab 01/22/19 02/02/19 lancets 25 gauge #100 each 01/29/19 01/29/19 omeprazole 40 mg capsule,delayed 40 mg PO DAILY #90 cap 01/29/19 02/02/19 release ergocalciferol (vitamin D2) 50,000 50,000 unit PO M-W-F #36 tab-cap 01/30/19 02/02/19 unit capsule fluticasone propion-salmeterol 2 puff INHALATION BID 02/02/19 02/02/19 [Advair Diskus] furosemide 20 mg PO DAILY 02/02/19 02/02/19 Previous Rx's Medication Instructions Recorded cyanocobalamin (vitamin B-12) 1,000 mcg PO DAILY #100 tab 02/16/17 [Vitamin B-12] epinephrine [EpiPen 2-Erick] 0.3 mg IM ONCE #2 dose 12/11/17 folic acid 1 mg tablet 1 mg PO DAILY #90 tab 05/21/18 atorvastatin 40 mg tablet 40 mg PO DAILY #90 tab-cap 06/14/18 duloxetine 60 mg capsule,delayed 60 mg PO DAILY #90 tab-cap 06/14/18 release allopurinol 100 mg tablet 100 mg PO DAILY #90 tab-cap 08/09/18 gabapentin 600 mg tablet 600 mg PO TID #270 tab-cap 08/09/18 glipizide ER 10 mg tablet, 10 mg PO DAILY #90 tab-cap 08/09/18 extended release 24 hr nystatin 100,000 unit/gram topical 1 applic TOPICAL BID PRN #30 gm 12/04/18 cream meclizine 12.5 mg tablet 25 mg PO TID PRN #60 tab 12/17/18 blood sugar diagnostic strips #100 each 12/18/18 lancets 33 gauge #100 each 12/18/18 liraglutide 0.6 mg/0.1 mL (18 mg/3 0.6 mg SC DAILY #6 ml 12/18/18 mL) subcutaneous pen injector pen needle, diabetic 31 gauge x #30 each 12/18/18 1/ acetaminophen [Tylenol Extra 1,000 mg PO Q8H PRN PRN #0 tab 01/22/19 Strength] aspirin [Aspir-81] 81 mg PO DAILY #30 tab 01/22/19 calcium carbonate-vitamin D3 2 tab PO BID #60 tab 01/22/19 [Calcium 600 + D(3)] oxycodone 5 mg PO Q4H PRN PRN #18 tab 01/22/19 lancets 25 gauge #100 each 01/29/19 omeprazole 40 mg capsule,delayed 40 mg PO DAILY #90 cap 01/29/19 release ergocalciferol (vitamin D2) 50,000 50,000 unit PO M-W-F #36 tab-cap 01/30/19 unit capsule Allergies Allergy/AdvReac Type Severity Reaction Status Date / Time venom-honey bee Allergy Severe ANAPHYLAXIS Verified 02/02/19 17:21 adhesive Allergy BLISTERS Verified 02/02/19 17:21 General Stated Complaint: Chest/Rib STEPHANIE: 3 Review of Systems Review of Systems All systems reviewed & are unremarkable except as noted in HPI and below PFSH Social History Smoking/Tobacco Use Status: Current every day Tobacco Type: cigarettes Alcohol Intake: current Alcohol Intake frequency: a few times a week Drug use: Never Substance use type: does not use Household members: other Details: 2 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 3.ENT: Atraumatic external nose and ears. Notably dry MM. Neck: Symmetric, trachea midline, No thyromegaly. 4.CVS: +S1/S2, No murmurs or gallops. Notably tachycardic. Peripheral pulses 2+ and equal in all extremities. Brisk capillary refill in all extremities. 5.RESP: Unlabored respiratory effort. Crackles in the bases, notably worse on the right. No wheezes or rhonchi. 6.GI: Soft, Nontender/Nondistended, No hepatosplenomegaly. No guarding or rebound. No pain at McBurney's point. Negative Weiss sign. 7.MSK: Normocephalic/Atraumatic, Extremities w/o deformity or ttp No cyanosis or clubbing, Normal movement of all extremities. Sternotomy site is well-healing with no evidence of erythema or tenderness. No calf tenderness. 8.Skin: Warm, Dry. No rashes or lesions. 9.Neuro: unit coordinator II-XII grossly intact. Sensation grossly intact, no focal neurologic deficits. 10.Psych: (AAO) x3. Appropriate mood and affect Course Vital Signs Temperature 36.5 C 02/02/19 17:17 Temperature 37.7 C H 02/02/19 18:31 Temperature Source Skin 02/02/19 17:17 Pulse 167 H 02/02/19 18:58 Pulse 164 H 02/02/19 18:58 Respiratory Rate 31 H 02/02/19 18:58 Respiratory Effort Labored 02/02/19 18:24 Respiratory Depth Shallow 02/02/19 18:24 Respiratory Pattern Tachypnea 02/02/19 18:24 Blood Pressure 103/73 02/02/19 18:58 Blood Pressure Mean 80 02/02/19 18:58 Pulse Oximetry 96 02/02/19 18:50 Pain Level 9 02/02/19 18:24 Lab/Test Results Lab/Test Results: 02/02/19 18:05 Blood Blood Culture - Pending 02/02/19 17:57 Blood Blood Culture - Pending Laboratory Tests Range/Units 02/02/19 02/02/19 02/02/19 17:57 17:57 17:57 WBC (4.4-10.8) k/cumm 23.38 H RBC (4.00-5.20) m/cumm 3.21 L Hgb (12.0-15.5) g/dL 9.8 L Hct (36.0-46.0) % 31.8 L MCV (80-95) fL 99.1 H MCH (27.0-33.0) pg 30.5 MCHC (32.0-36.0) g/dL 30.8 L RDW (11.7-14.6) % 14.7 H Plt Count (130-400) x1000/uL 396 D MPV (8.0-11.0) fL 9.9 Immature Gran % 0.5 Neutrophils % 89.2 Lymphocytes % 3.8 Monocytes % 5.3 Eosinophils % 1.1 Basophils % 0.1 Absolute Neutrophils (1.2-6.7) k/cumm 20.85 H Absolute Lymphocytes (1.2-3.4) k/cumm 0.89 L Absolute Monocytes (0.11-0.7) k/cumm 1.24 H Absolute Eosinophils (0.0-0.7) k/cumm 0.26 Absolute Basophils (0.0-0.2) k/cumm 0.02 PT (9.3-11.0) sec INR (0.9-1.1) APTT (21.0-31.4) sec Sodium (136-145) mmol/L 134 L Potassium (3.5-5.1) mmol/L 3.6 Chloride (98-107) mmol/L 97 L Carbon Dioxide (21.0-32.0) mmol/L 27.9 Anion Gap (3-11) mmol/L 9.1 BUN (7-18) mg/dL 40 H Creatinine (0.55-1.02) mg/dL 1.89 H Estimated GFR/1.73 m2 (mL/min/1.73m2) 26.61 Glucose (70-100) mg/dL 228 H Lactate (0.6-1.4) mmol/l 1.9 H Calcium (8.5-10.1) mg/dL 8.9 Total Bilirubin (0.2-1.0) mg/dL 0.8 AST (15-37) U/L 11 L ALT (12-78) U/L 29 Alkaline Phosphatase (46-116) U/L 124 H Troponin I (0.00-0.06) ng/mL 0.25 H* Total Protein (6.4-8.2) g/dL 7.0 Albumin (3.4-5.0) g/dL 2.8 L Range/Units 02/02/19 17:57 WBC (4.4-10.8) k/cumm RBC (4.00-5.20) m/cumm Hgb (12.0-15.5) g/dL Hct (36.0-46.0) % MCV (80-95) fL MCH (27.0-33.0) pg MCHC (32.0-36.0) g/dL RDW (11.7-14.6) % Plt Count (130-400) x1000/uL MPV (8.0-11.0) fL Immature Gran % Neutrophils % Lymphocytes % Monocytes % Eosinophils % Basophils % Absolute Neutrophils (1.2-6.7) k/cumm Absolute Lymphocytes (1.2-3.4) k/cumm Absolute Monocytes (0.11-0.7) k/cumm Absolute Eosinophils (0.0-0.7) k/cumm Absolute Basophils (0.0-0.2) k/cumm PT (9.3-11.0) sec 11.6 H INR (0.9-1.1) 1.2 H APTT (21.0-31.4) sec 27.0 Sodium (136-145) mmol/L Potassium (3.5-5.1) mmol/L Chloride (98-107) mmol/L Carbon Dioxide (21.0-32.0) mmol/L Anion Gap (3-11) mmol/L BUN (7-18) mg/dL Creatinine (0.55-1.02) mg/dL Estimated GFR/1.73 m2 (mL/min/1.73m2) Glucose (70-100) mg/dL Lactate (0.6-1.4) mmol/l Calcium (8.5-10.1) mg/dL Total Bilirubin (0.2-1.0) mg/dL AST (15-37) U/L ALT (12-78) U/L Alkaline Phosphatase (46-116) U/L Troponin I (0.00-0.06) ng/mL Total Protein (6.4-8.2) g/dL Albumin (3.4-5.0) g/dL
[2019-02-02] MEDS: Omnipaque 350 MG/ML 100 ML BTL IJ (19:49)
--- NOTE | 2019-02-02 20:14 | DI.VRAD_ITS ---
EXAM: CT Angiography Chest With Contrast EXAM DATE/TIME: 02/02/2019 19:11 CLINICAL HISTORY: 68 years old, female; Right-sided chest pain; Prior surgery; Surgery date: 1-6 months; Surgery type: Triple bypass; Patient HX: Right chest pain; Additional info: R/O pe TECHNIQUE: Imaging protocol: Axial computed tomographic angiography images of the chest with intravenous contrast using CT angiography protocol. Coronal and sagittal reformatted images were created and reviewed. 3D rendering: MIP reconstructed images were created and reviewed. COMPARISON: CT CHEST PE CTA 12/30/2018 15:45 FINDINGS: Pulmonary arteries: No main, lobar or proximal segmental pulmonary artery emboli. Aorta: No aortic aneurysm. No aortic dissection. Lungs: Airspace opacities right greater than left lung base. Scattered additional areas of subsegmental atelectasis. There are a few very small subcentimeter nodules. Not in a specific centrilobular distribution. Follow-up as per institutional protocol. Pleural space: Moderate left, small right pleural effusions. Heart: CABG. Mediastinum: Mild edema in the anterior mediastinum with no measurable fluid collection or significant blood products. Lymph nodes: No enlarged lymph nodes. Bones/joints: Cervical and thoracic fixation hardware anteriorly. Mild diastases of the sternum across multiple median sternotomy wires. Soft tissues: No suspicious lesions. IMPRESSION: 1. No main, lobar or proximal segmental pulmonary artery emboli. 2. Moderate left, small right pleural effusions. 3. Airspace opacities right greater than left lung base. The right lung base opacity is more concerning for pneumonia or aspiration, on the left appearance is more suggestive of compressive atelectasis. 4. Mild edema in the anterior mediastinum compatible with recent surgery. 5. Incidental findings as described. Dictated and Authenticated by: Amanda Carlos MD. Ordering:MARIEL Ayala MD
[2019-02-02 20:18] LABS: Bilirubin Negative (Negative); Blood Moderate (Negative); Clarity Sl Cloudy; Glucose Negative (Negative); Ketones Negative (Negative); Leukocyte Esterase Moderate (Negative); Nitrite Negative (Negative); Specific Gravity 1.015 (1.005-1.025); Urobilinogen 0.2 EU/dL (Up TO 0.2); pH 5.5 (5-8)
[2019-02-02] MEDS: dilTIAZem 25 MG/5 ML VIAL 5 MG IVP ×2 (20:20→21:05)
[2019-02-02 20:22] LABS: NT-proBNP 5104 pg/mL; TSH 0.97 uIU/mL (0.358-3.74)
[2019-02-02 20:36] LABS: Bacteria Few HPF (Negative); Crystals Negative HPF (Negative); Epithelial Cells Many HPF (Negative)
[2019-02-02 20:37] LABS: C & S Indicated? C&S Done As Ordered; Casts Negative LPF (Negative); Mucus Negative (Negative)
[2019-02-02] MEDS: Adenosine 6 MG/2 ML VIAL 12 MG IVP (20:45)
[2019-02-02] MEDS: Adenosine 6 MG/2 ML VIAL IVP (20:49)
[2019-02-02] MEDS: dilTIAZem 125 MG in Normal Saline 100 ML IV (21:06)
[2019-02-02] MEDS: DOXYCYCLINE 100 MG in Normal Saline 100 ML IVPB (21:22)
[2019-02-02] MEDS: PIPERACILLIN/TAZO 3.375 GM in Normal Saline 50 ML IVPB (21:30)
[2019-02-02] MEDS: LINEZOLID 600 MG/300 ML BAG 300 MG IVPB (21:59)
--- NOTE | 2019-02-02 22:01 | HPE_ITS ---
Date of service: 02/02/19 Time of Service: 22:00 Assessment and Plan (1) HCAP (healthcare-associated pneumonia): Current visit: Yes Status: Acute gram stain of her blood cultures is showing GPC in pairs and her CT of her chest demonstrates bilateral lower lobe infiltrates along w/ small bilateral pleural effusions. Patient received Zyvox in the ER however because of her chronic use of SSRI for her depression this is a contraindication for Zyvox. I am going to restart her on Vancomycin but have pharmacy dose her for her CKD. She will also continue w/ Zosyn as well as Doxycycline for now. we will attempt to get sputum cultures. She has been producing thick purulent sputum. (2) Gram-positive bacteremia: Current visit: Yes Status: Acute antibiotics as above. (3) Atrial flutter: Current visit: Yes Status: Acute rate control w/ iv diltiazem and iv lopressor. hold on heparin for tonight as patient required triple lumen CVP placement d/t lack of peripheral iv access. Qualifiers: Atrial flutter type: typical Qualified Code(s): I48.3 - Typical atrial flutter (4) CKD (chronic kidney disease) stage 3, GFR 30-59 ml/min: Current visit: No Status: Chronic renal function is moderate to severely impaired but stable compared her renal function when she was discharged home on 01/22. I will continue iv fluids overnight as she received iv contrast for her CTA this evening. However will need to watch for volume overload as she developed CHF during her last admission although her LVEF is 55-60% but she has moderate LVH and she has mild PHTN per her last echo from 01/16 (5) Diabetes mellitus: Current visit: No Status: Chronic will monitor her glucose and provide sliding scale coverage Qualifiers: Diabetes mellitus complication detail: with chronic kidney disease Diabetes mellitus complication status: with kidney complications Diabetes mellitus fpc insulin use: without fpc use Diabetes mellitus type: type 2 (6) Chronic obstructive lung disease: Current visit: No Status: Chronic no evidence of acute COPD exacerbation. I will provide her w/ prn aerosolized bronchodilators w/ xopenex on a prn rather than scheduled basis as she is not wheezing and she has rapid atrial flutter Qualifiers: COPD type: COPD with acute lower respiratory infection Qualified Code(s): J44.0 - Chronic obstructive pulmonary disease with acute lower respiratory infection (7) Essential hypertension: Current visit: No Status: Chronic bp at present is not elevated probably d/t her rapid atrial flutter. Will withold other bp meds while titration of her lopressor and diltiazem History of Present Illness Chief Complaint: left sided chest pain Narrative: 68 yr old female w/ PMH CAD s/p 3 vessel CABG and LA appendage excision 01/03/2019, after NSTEMI, PAF (off anticoagulation since her surgery), DM type 2 (not on insulin), CKD, obesity, COPD, depression, gout, restless leg syndrome, spinal stenosis who recently was hospitalized at [facility] for HCAP after admitted from [facility] where she was recovering from her cardiac surgery. She was treated w/ 5 days of Zosyn and 3 days of Vancomycin and discharged home on on tapering doses of prednisone. CXR on 01/21/2019 (day prior to discharge) demonstrated stable LLL infiltrate and effusion. She now presents to the ER w/ c/o of left sided pleuritic chest pain and upon evaluation to the ER was found to be in narrow complex tachycardia in the 160's which subsequent to administration to adenosine was found to be in rapid atrial flutter which temporarily slowed to the adenosine. Patient was subsequently put on diltiazem and heparin drip. Because of the atrial arrythmia and her dyspnea (RR in the 30's) and hypoxemia ( 86% on RA on presentation) she underwent CTA of her chest that confirmed bibasilar infiltrates R>L with small right pleural effusions but no PE. Her labs also were supportive of dx of pneumonia w/ elevated lactate of 1.9, WBC of 23,000. UA also suspicious of UTI w/ moderate blood, moderate leukocyte esterase, 10-20 WBC and a few bacteria. Blood and urine cultures were sent and patient was started while in the ER on Zosyn and doxycycline and Zyvox. I have continued the Zosyn at renal adjusted dosing and continue the doxycycline but changed her Zyvox to Vancomycin for Staph coverage d/t drug interaction of her citalopram and Zyvox. Dr. Jamie Leos spoke [place]/ [place], [place] [facility] [place] decided that despite her elevated troponin of 0.25 the patient probably has rate related ischemic change in her troponin but could be treated here w/ iv diltiazem, heparin +/- beta blockers, and antibiotics for HCAP. Review of Systems Constitutional Reports body ache(s), Reports chills and Reports fever(s) (low grade fever to 100.7 today) Eyes Reports system reviewed and no additional complaints, except [facility] E[facility] Reports system reviewed and no additional complaints, except as docu Cardiovascular Reports chest pain (pleuritic chest pain), Reports diaphoresis, Reports palpitations, Reports dyspnea and Reports dyspnea on exertion Respiratory Reports cough, Reports excessive phlegm production, Reports pain with cough, Reports dyspnea and Reports dyspnea on exertion Gastrointestinal Reports system reviewed and no additional complaints, except as docu Genitourinary Reports system reviewed and no additional complaints, except as [facility] Musculoskeletal Reports system reviewed and no additional complaints, except as [facility] Integumentary/Breasts Reports system reviewed and no additional complaints, except as docu Neurologic Reports system reviewed and no additional complaints, except as docu Psychiatric Reports system reviewed and no additional complaints, except as [facility] Endocrine Reports system reviewed and no additional complaints, except as [facility] and Reports palpitations Hematologic/Lymphatic Reports system reviewed and no additional complaints, except as docu Allergic/Immunologic Reports system reviewed and no additional complaints, except as docu PFSH Medical History Atrial flutter (Acute) Gram-positive bacteremia (Acute) HCAP (healthcare-associated pneumonia) (Acute) Anemia (Chronic) Tarsal tunnel syndrome (Chronic 06/11/13) CKD (chronic kidney disease) stage 3, GFR 30-59 ml/min (Chronic) HAP (hospital-acquired pneumonia) (Resolved 01/15/19) Shingles (Resolved) Hip pain, left (Chronic) Hip pain, right (Chronic) Lump in neck (Chronic) Diabetes mellitus (Chronic) Hyperlipidemia (Chronic 08/10/00) Gout (Chronic 07/06/11) Spinal stenosis of lumbar region (Chronic 02/15/16) Restless legs (Chronic) Paroxysmal atrial fibrillation (Chronic 03/01/16) 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) Chronic obstructive lung disease (Chronic) Atrial fibrillation (Chronic) Restless leg syndrome (Chronic) Essential hypertension (Chronic) Hyperlipidemia (Chronic) History of coronary artery disease (Chronic) Abnormal mammography (Resolved) Ankle pain (Resolved 03/13/14) Carpal tunnel syndrome (Resolved 08/10/06) Cervical disc disorder with myelopathy (Resolved 08/21/08) Chest pain (Resolved) Diabetes mellitus (Resolved) Folate deficiency (Resolved 02/15/16) Hepatomegaly (Resolved) Hip joint inflamed (Resolved 09/03/15) Low back pain (Resolved 04/10/03) Menopausal syndrome (Resolved) Muscle fatigue (Resolved) Posterior tibial tendon dysfunction (Resolved) Postmenopausal bleeding (Resolved) Postoperative wound dehiscence (Resolved 12/23/15) Primary osteoarthritis of left hip (Resolved 09/17/15) Renal impairment (Resolved 07/11/03) Rotator cuff syndrome (Resolved 08/01/09) Smoker (Resolved 06/30/16) Tarsal tunnel syndrome (Resolved) Trochanteric bursitis (Resolved) Upper respiratory tract infection (Resolved 08/03/15) Vitamin D deficiency (Resolved) Atrial fibrillation Carpal tunnel syndrome Cervical spondylosis with myelopathy Gout Hypertension Spinal stenosis of lumbar region at multiple levels Vitamin D deficiency Surgical History S/P CABG (coronary artery bypass graft) (Chronic 01/03/19) H/O Spinal surgery (Resolved) H/O arthrodesis (Resolved) History of bilateral tubal ligation (Resolved) History of gynecologic surgery (Resolved) History of hip surgery (Resolved) History of orthopedic surgery (Resolved) S/P carpal tunnel release (Resolved) S/P cholecystectomy (Resolved) S/P rotator cuff repair (Resolved) Status post incision and drainage (Resolved) Arthrodesis Cholecystectomy (07/31/13) Endometrial Biopsy Left eye surgery Ligation of fallopian tube (~1980) Open Carpal Tunnel release Right wrist surgery Rotator Cuff Repair (~1980) SPINE SURGERY Total replacement of hip cervical repair (~10/2008) tarsal tunnel release (~1997) Family History Mother Diabetes Essential hypertension Personal history of malignant neoplasm Heart disease Hyperlipidemia Stroke Asthma Father Diabetes Essential hypertension Personal history of malignant neoplasm Heart disease Asthma Sister Diabetes Essential hypertension Depression Heart disease Asthma Grandfather No problems noted. Grandfather No problems noted. Grandmother Personal history of malignant neoplasm Grandmother Diabetes Aunt Personal history of malignant neoplasm Brother Hyperlipidemia Stroke Sister Asthma Son Asthma Daughter Depression Asthma Daughter Asthma Daughter Depression Neoplasm Asthma Brother No problems noted. Social History Smoking/Tobacco Use Status: Current every day Tobacco Type: cigarettes Alcohol Intake: current Alcohol Intake frequency: a few times a week Drug use: Never Substance use type: does not use Household members: other Details: 2 current occupation: [employer] Pets and animals: Yes Pets and animals: cat(s), dog(s) and horse(s) What type of physical activity do you participate in: none Saniya/Mosque: Pent[employer] Special saniya needs: No Do you feel safe at home: Yes Do you feel safe in your relationship?: Yes Meds Home Medications Medication Instructions Recorded Confirmed Type cyanocobalamin (vitamin B-12) 1,000 mcg PO DAILY #100 tab 02/16/17 02/02/19 Rx [Vitamin B-12] epinephrine [EpiPen 2-Erick] 0.3 mg IM ONCE #2 dose 12/11/17 02/02/19 Rx folic acid 1 mg tablet 1 mg PO DAILY #90 tab 05/21/18 02/02/19 Rx atorvastatin 40 mg tablet 40 mg PO DAILY #90 tab-cap 06/14/18 02/02/19 Rx duloxetine 60 mg capsule,delayed 60 mg PO DAILY #90 tab-cap 06/14/18 02/02/19 Rx release allopurinol 100 mg tablet 100 mg PO DAILY #90 tab-cap 08/09/18 02/02/19 Rx gabapentin 600 mg tablet 600 mg PO TID #270 tab-cap 08/09/18 02/02/19 Rx glipizide ER 10 mg tablet, 10 mg PO DAILY #90 tab-cap 08/09/18 02/02/19 Rx extended release 24 hr nystatin 100,000 unit/gram topical 1 applic TOPICAL BID PRN #30 gm 12/04/18 02/02/19 Rx cream meclizine 12.5 mg tablet 25 mg PO TID PRN #60 tab 12/17/18 02/02/19 Rx blood sugar diagnostic strips #100 each 12/18/18 01/29/19 Rx lancets 33 gauge #100 each 12/18/18 01/29/19 Rx liraglutide 0.6 mg/0.1 mL (18 mg/3 0.6 mg SC DAILY #6 ml 12/18/18 02/02/19 Rx mL) subcutaneous pen injector pen needle, diabetic 31 gauge x #30 each 12/18/18 01/29/19 Rx 1/4 albuterol sulfate 2.5 mg INHALATION QID PRN 01/15/19 02/02/19 History magnesium hydroxide [Milk of 30 ml PO PRN PRN 01/15/19 02/02/19 History Magnesia] polyethylene glycol 3350 [Miralax] 1 g PO PRN PRN 01/15/19 02/02/19 History ropinirole [Requip] 2 mg PO QPM PRN 01/15/19 02/02/19 History acetaminophen [Tylenol Extra 1,000 mg PO Q8H PRN PRN #0 tab 01/22/19 02/02/19 Rx Strength] aspirin [Aspir-81] 81 mg PO DAILY #30 tab 01/22/19 02/02/19 Rx calcium carbonate-vitamin D3 2 tab PO BID #60 tab 01/22/19 02/02/19 Rx [Calcium 600 + D(3)] oxycodone 5 mg PO Q4H PRN PRN #18 tab 01/22/19 02/02/19 Rx lancets 25 gauge #100 each 01/29/19 01/29/19 Rx omeprazole 40 mg capsule,delayed 40 mg PO DAILY #90 cap 01/29/19 02/02/19 Rx release ergocalciferol (vitamin D2) 50,000 50,000 unit PO M-W-F #36 tab-cap 01/30/19 Rx unit capsule fluticasone propion-salmeterol 2 puff INHALATION BID 02/02/19 02/02/19 History [Advair Diskus] furosemide 20 mg PO DAILY 02/02/19 02/02/19 History Allergies Allergy/AdvReac Type Severity Reaction Status Date / Time venom-honey bee Allergy Severe ANAPHYLAXIS Verified 02/02/19 17:21 adhesive Allergy BLISTERS Verified 02/02/19 17:21 Exam Const General: cooperative, no acute distress and ill appearing acutely Nutritional Appearance: overweight Orientation: alert, awake and oriented x3 HENMT Head: normal to inspection, no palpable skull fracture, normocephalic and atraumatic Ears: hearing grossly normal bilaterally Face and sinus: normal facial exam and face symmetric Neck Neck: full ROM, no lymphadenopathy, trachea midline, supple, midline deformity, no JVD and other (scar over right anterior neck from prior cervical fusion) Carotids: normal carotid upstroke Lymphatic: no lymphadenopathy noted Chest Chest: abnormal inspection of the chest (s/p sternotomy w/ scar and healing w/ crusted scabs) Cardio Jugular venous pressure: no JVD Palpation: normal PMI Rate: tachycardic Rhythm: regular rhythm Pulses: normal peripheral pulses GI Inspection: obesity Palpation: soft Percussion: normal to percussion Auscultation: normal bowel sounds Neuro General: alert, awake, oriented x3, moves all extremities and no focal motor deficits Cognition: normal cognition Speech: speech normal Motor: muscle tone normal throughout and no movement abnormalities noted Sensory Exam: no sensory deficits noted Extrem General: normal to inspection, full ROM, normal capillary refill, no joint enlargement, no clubbing, cyanosis or edema, no pedal edema and no calf tenderness Psych Appearance: grossly normal Mental Status: mental status grossly normal Speech and Movement: speech and movement normal Mood: congruent mood Affect: normal affect Attitude: cooperative Thought Process: normal Thought Content: normal Insight: insight good Judgment: judgment good Results Imaging Chest x-ray: report reviewed (IMPRESSION: 1. Stable mild cardiomegaly without significant volume overload. 2. Improved aeration of the left lung base. 3. Stable trace right pleural effusion. Significant decrease in the trace left pleural effusion. Probable overlying subsegmental atelectasis. Dictated and Authenticated by: T) CT scan - chest: report reviewed (IMPRESSION: 1. No main, lobar or proximal segmental pulmonary artery emboli. 2. Moderate left, small right pleural effusions. 3. Airspace opacities right greater than left lung base. The right lung base opacity is more concerning for pneumonia or aspiration, on the left appearance is more sugge) Labs : 02/03/19 05:50 02/03/19 05:50 Laboratory Results - last 24 hr 02/02/19 02/02/19 02/02/19 17:57 17:57 17:57 WBC 23.38 H RBC 3.21 L Hgb 9.8 L Hct 31.8 L MCV 99.1 H MCH 30.5 MCHC 30.8 L RDW 14.7 H Plt Count 396 D MPV 9.9 Immature Gran % 0.5 Neutrophils % 89.2 Lymphocytes % 3.8 Monocytes % 5.3 Eosinophils % 1.1 Basophils % 0.1 Absolute Neutrophils 20.85 H Absolute Lymphocytes 0.89 L Absolute Monocytes 1.24 H Absolute Eosinophils 0.26 Absolute Basophils 0.02 PT INR APTT Sodium 134 L Potassium 3.6 Chloride 97 L Carbon Dioxide 27.9 Anion Gap 9.1 BUN 40 H Creatinine 1.89 H Estimated GFR/1.73 m2 26.61 Glucose 228 H Lactate 1.9 H Calcium 8.9 Total Bilirubin 0.8 AST 11 L ALT 29 Alkaline Phosphatase 124 H Troponin I 0.25 H* NT-Pro-B Natriuret Pep Total Protein 7.0 Albumin 2.8 L TSH Urine Color Urine Clarity Urine pH Ur Specific [place] Urine Protein Urine Ketones Urine Blood Urine Nitrite Urine Bilirubin Urine Urobilinogen Ur Leukocyte Esterase Urine RBC Urine WBC Ur Epithelial Cells Urine Crystals Urine Bacteria Urine Casts Urine Mucus Urine Other Ur Culture Indicated? Urine Glucose 02/02/19 02/02/19 02/02/19 17:57 17:57 20:11 WBC RBC Hgb Hct MCV MCH MCHC RDW Plt Count MPV Immature Gran % Neutrophils % Lymphocytes % Monocytes % Eosinophils % Basophils % Absolute Neutrophils Absolute Lymphocytes Absolute Monocytes Absolute Eosinophils Absolute Basophils PT 11.6 H INR 1.2 H APTT 27.0 Sodium Potassium Chloride Carbon Dioxide Anion Gap BUN Creatinine Estimated GFR/1.73 m2 Glucose Lactate Calcium Total Bilirubin AST ALT Alkaline Phosphatase Troponin I NT-Pro-B Natriuret Pep 5104 H Total Protein Albumin TSH 0.97 Urine Color Yellow Urine Clarity Sl cloudy Urine pH 5.5 Ur Specific [place] 1.015 Urine Protein 30 H Urine Ketones Negative Urine Blood Moderate H Urine Nitrite Negative Urine Bilirubin Negative Urine Urobilinogen 0.2 Ur Leukocyte Esterase Moderate H Urine RBC 10-20 H Urine WBC 10-20 Ur Epithelial Cells Many Urine Crystals Negative Urine Bacteria Few Urine Casts Negative Urine Mucus Negative Urine Other Ur Culture Indicated? C&s done as ordered Urine Glucose Negative Last Vital Signs Temp 37.7 C H 02/02/19 18:31 Pulse 160 H 02/02/19 21:30 Resp 33 H 02/02/19 21:30 BP 100/88 02/02/19 21:30 Pulse Ox 93 L 02/02/19 21:30
[2019-02-02 22:37] LABS: Lactate-non-spesis 1.2 mmol/l (0.6-1.4)
[2019-02-02 22:49] LABS: Magnesium 1.6 mg/dL (1.8-2.4)
[2019-02-02 23:12] LABS: Troponin I 0.25 ng/mL (0.00-0.06)
[2019-02-02] MEDS: Metoprolol 5 MG/5 ML VIAL IVP (23:43)
[2019-02-03] VITALS (134 sets, daily range): BP systolic 90–142; BP diastolic 28–86; PULSE 53–133; RESP 4–35; TEMP 36.3–36.7; O2SAT 90–98
--- NOTE | 2019-02-03 00:13 | DI.RAD_ITS ---
SYMPTOMS/DIAGNOSIS: POST LINE INSERTION PORTABLE AP CHEST AT 12:16 AM: Comparison with chest x-ray from the day prior. The cardiac silhouette appears stable. Sternal wires are in place. The infiltrates seen in the left lung base appear stable as are the tiny pleural effusions bilaterally. No new infiltrates are seen. There is no pneumothorax. There has been internal placement of a left subclavian central venous catheter. The tip of the catheter just enters the superior vena cava. IMPRESSION: 1. Tip of the left subclavian central venous catheter is seen as it enters the superior vena cava. 2. No pneumothorax is seen. 3. Stable bilateral pleural effusions and left basilar infiltrate.
--- NOTE | 2019-02-03 00:34 | SCONE_ITS ---
Date of service: 02/03/19 Time of Service: 00:33 Assessment and Plan (1) Atrial flutter: Current visit: Yes Status: Acute Qualifiers: Atrial flutter type: typical Qualified Code(s): I48.3 - Typical atrial flutter (2) Gram-positive bacteremia: Current visit: Yes Status: Acute (3) HCAP (healthcare-associated pneumonia): Current visit: Yes Status: Acute (4) Anemia: Current visit: No Status: Chronic (5) CKD (chronic kidney disease) stage 3, GFR 30-59 ml/min: Current visit: No Status: Chronic (6) S/P CABG (coronary artery bypass graft): Current visit: No Status: Chronic sternotomy incision is well healed. no R/D/S. no softness to bone risks: bleeding- mitul once heparin is initiated/PTX/thrombosis/catheter related infections/damage to vein/artery/nerve/ V. tach. others CXR: post procedure show good position and no PTX no V. tach safe to use routine catheter cares and dressing change by nursing will follow peripherally History of Present Illness Narrative: acute onset A. fib. rate uncontrolled. sp CABG 12/28. HAP. Bactremia Need for central venous access Consults Consult date: 02/03/19 Requesting physician: Clarence Caban Review of Systems Integumentary/Breasts Comments: no peripheral access. + edema. PFSH Medical History Atrial flutter (Acute) Gram-positive bacteremia (Acute) HCAP (healthcare-associated pneumonia) (Acute) Anemia (Chronic) Tarsal tunnel syndrome (Chronic 06/11/13) CKD (chronic kidney disease) stage 3, GFR 30-59 ml/min (Chronic) HAP (hospital-acquired pneumonia) (Resolved 01/15/19) Shingles (Resolved) Hip pain, left (Chronic) Hip pain, right (Chronic) Lump in neck (Chronic) Diabetes mellitus (Chronic) Hyperlipidemia (Chronic 08/10/00) Gout (Chronic 07/06/11) Spinal stenosis of lumbar region (Chronic 02/15/16) Restless legs (Chronic) Paroxysmal atrial fibrillation (Chronic 03/01/16) 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) Chronic obstructive lung disease (Chronic) Atrial fibrillation (Chronic) Restless leg syndrome (Chronic) Essential hypertension (Chronic) Hyperlipidemia (Chronic) History of coronary artery disease (Chronic) Abnormal mammography (Resolved) Ankle pain (Resolved 03/13/14) Carpal tunnel syndrome (Resolved 08/10/06) Cervical disc disorder with myelopathy (Resolved 08/21/08) Chest pain (Resolved) Diabetes mellitus (Resolved) Folate deficiency (Resolved 02/15/16) Hepatomegaly (Resolved) Hip joint inflamed (Resolved 09/03/15) Low back pain (Resolved 04/10/03) Menopausal syndrome (Resolved) Muscle fatigue (Resolved) Posterior tibial tendon dysfunction (Resolved) Postmenopausal bleeding (Resolved) Postoperative wound dehiscence (Resolved 12/23/15) Primary osteoarthritis of left hip (Resolved 09/17/15) Renal impairment (Resolved 07/11/03) Rotator cuff syndrome (Resolved 08/01/09) Smoker (Resolved 06/30/16) Tarsal tunnel syndrome (Resolved) Trochanteric bursitis (Resolved) Upper respiratory tract infection (Resolved 08/03/15) Vitamin D deficiency (Resolved) Atrial fibrillation Carpal tunnel syndrome Cervical spondylosis with myelopathy Gout Hypertension Spinal stenosis of lumbar region at multiple levels Vitamin D deficiency Surgical History S/P CABG (coronary artery bypass graft) (Chronic 01/03/19) H/O Spinal surgery (Resolved) H/O arthrodesis (Resolved) History of bilateral tubal ligation (Resolved) History of gynecologic surgery (Resolved) History of hip surgery (Resolved) History of orthopedic surgery (Resolved) S/P carpal tunnel release (Resolved) S/P cholecystectomy (Resolved) S/P rotator cuff repair (Resolved) Status post incision and drainage (Resolved) Arthrodesis Cholecystectomy (07/31/13) Endometrial Biopsy Left eye surgery Ligation of fallopian tube (~1980) Open Carpal Tunnel release Right wrist surgery Rotator Cuff Repair (~1980) SPINE SURGERY Total replacement of hip cervical repair (~10/2008) tarsal tunnel release (~1997) Family History Mother Diabetes Essential hypertension Personal history of malignant neoplasm Heart disease Hyperlipidemia Stroke Asthma Father Diabetes Essential hypertension Personal history of malignant neoplasm Heart disease Asthma Sister Diabetes Essential hypertension Depression Heart disease Asthma Grandfather No problems noted. Grandfather No problems noted. Grandmother Personal history of malignant neoplasm Grandmother Diabetes Aunt Personal history of malignant neoplasm Brother Hyperlipidemia Stroke Sister Asthma Son Asthma Daughter Depression Asthma Daughter Asthma Daughter Depression Neoplasm Asthma Brother No problems noted. 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 signif scarring and distortion of venous anatomy seen on US. no prior central lines. no other neck radiation or sx. prior b/l shoulder sx. no clavicle fx. Results Last Vital Signs Temp 37.7 C H 02/02/19 18:31 Pulse 160 H 02/02/19 23:43 Resp 33 H 02/02/19 21:30 BP 102/65 02/02/19 23:43 Pulse Ox 93 L 02/02/19 21:30 Labs : 02/03/19 05:50 02/03/19 05:50 Laboratory Results - last 24 hr 02/02/19 02/02/19 02/02/19 17:57 17:57 17:57 WBC 23.38 H RBC 3.21 L Hgb 9.8 L Hct 31.8 L MCV 99.1 H MCH 30.5 MCHC 30.8 L RDW 14.7 H Plt Count 396 D MPV 9.9 Immature Gran % 0.5 Neutrophils % 89.2 Lymphocytes % 3.8 Monocytes % 5.3 Eosinophils % 1.1 Basophils % 0.1 Absolute Neutrophils 20.85 H Absolute Lymphocytes 0.89 L Absolute Monocytes 1.24 H Absolute Eosinophils 0.26 Absolute Basophils 0.02 PT INR APTT Sodium 134 L Potassium 3.6 Chloride 97 L Carbon Dioxide 27.9 Anion Gap 9.1 BUN 40 H Creatinine 1.89 H Estimated GFR/1.73 m2 26.61 Glucose 228 H Lactate 1.9 H Calcium 8.9 Magnesium Total Bilirubin 0.8 AST 11 L ALT 29 Alkaline Phosphatase 124 H Troponin I 0.25 H* NT-Pro-B Natriuret Pep Total Protein 7.0 Albumin 2.8 L TSH Urine Color Urine Clarity Urine pH Ur Specific [place] Urine Protein Urine Ketones Urine Blood Urine Nitrite Urine Bilirubin Urine Urobilinogen Ur Leukocyte Esterase Urine RBC Urine WBC Ur Epithelial Cells Urine Crystals Urine Bacteria Urine Casts Urine Mucus Urine Other Ur Culture Indicated? Urine Glucose 02/02/19 02/02/19 02/02/19 17:57 17:57 20:11 WBC RBC Hgb Hct MCV MCH MCHC RDW Plt Count MPV Immature Gran % Neutrophils % Lymphocytes % Monocytes % Eosinophils % Basophils % Absolute Neutrophils Absolute Lymphocytes Absolute Monocytes Absolute Eosinophils Absolute Basophils PT 11.6 H INR 1.2 H APTT 27.0 Sodium Potassium Chloride Carbon Dioxide Anion Gap BUN Creatinine Estimated GFR/1.73 m2 Glucose Lactate Calcium Magnesium Total Bilirubin AST ALT Alkaline Phosphatase Troponin I NT-Pro-B Natriuret Pep 5104 H Total Protein Albumin TSH 0.97 Urine Color Yellow Urine Clarity Sl cloudy Urine pH 5.5 Ur Specific [place] 1.015 Urine Protein 30 H Urine Ketones Negative Urine Blood Moderate H Urine Nitrite Negative Urine Bilirubin Negative Urine Urobilinogen 0.2 Ur Leukocyte Esterase Moderate H Urine RBC 10-20 H Urine WBC 10-20 Ur Epithelial Cells Many Urine Crystals Negative Urine Bacteria Few Urine Casts Negative Urine Mucus Negative Urine Other Ur Culture Indicated? C&s done as ordered Urine Glucose Negative 02/02/19 02/02/19 02/02/19 22:27 22:27 22:27 WBC RBC Hgb Hct MCV MCH MCHC RDW Plt Count MPV Immature Gran % Neutrophils % Lymphocytes % Monocytes % Eosinophils % Basophils % Absolute Neutrophils Absolute Lymphocytes Absolute Monocytes Absolute Eosinophils Absolute Basophils PT INR APTT Sodium Potassium Chloride Carbon Dioxide Anion Gap BUN Creatinine Estimated GFR/1.73 m2 Glucose Lactate 1.2 Calcium Magnesium 1.6 L Total Bilirubin AST ALT Alkaline Phosphatase Troponin I 0.25 H* NT-Pro-B Natriuret Pep Total Protein Albumin TSH Urine Color Urine Clarity Urine pH Ur Specific [place] Urine Protein Urine Ketones Urine Blood Urine Nitrite Urine Bilirubin Urine Urobilinogen Ur Leukocyte Esterase Urine RBC Urine WBC Ur Epithelial Cells Urine Crystals Urine Bacteria Urine Casts Urine Mucus Urine Other Ur Culture Indicated? Urine Glucose
--- NOTE | 2019-02-03 00:34 | DI.VRAD_ITS ---
EXAM: XR Chest, 1 View EXAM DATE/TIME: 02/03/2019 00:25 CLINICAL HISTORY: 68 years old, female; Device placement; Picc; Prior surgery; Surgery date: 1-6 months; Surgery type: Triple bypass; Patient HX: Post line insertion TECHNIQUE: Imaging protocol: XR of the chest, 1 view. COMPARISON: SC XR CHEST 2V PA LATERAL 02/02/2019 18:45 FINDINGS: Tubes, catheters and devices: Left subclavian catheter, tip just enters the SVC. Lungs: Patchy opacities in the lung bases. Pleural space: Trace pleural fluid, less well appreciated than on recent CT. Heart/Mediastinum: CABG. Bones/joints: Cervical and thoracic fixation hardware. Median sternotomy wires. Chronic appearing osteolysis of the distal left clavicle. IMPRESSION: 1. Left subclavian catheter, tip just enters the SVC. 2. Trace pleural fluid, less well appreciated than on recent CT. Patchy opacities in the lung bases, pneumonia or atelectasis. Dictated and Authenticated by: Amanda Carlos MD. Ordering:[id number] Alonzo MD
[2019-02-03] MEDS: Lidocaine 1% Multi-Dose 50 ML VIAL (00:35)
[2019-02-03] MEDS: Normal Saline-STERILE FIELD 0.9% 10 ML SYR (00:35)
[2019-02-03] MEDS: Metoprolol 25 MG TAB PO ×3 (01:15→15:55)
[2019-02-03] MEDS: Normal Saline Flush 10 ML SYR IVP (02:08)
[2019-02-03 02:42] LABS: Troponin I 0.26 ng/mL (0.00-0.06)
[2019-02-03 02:48] LABS: Procalcitonin 0.7 ng/mL
[2019-02-03] MEDS: VANCOMYCIN 2,000 MG in Normal Saline 500 ML 250 MG IV (03:43)
[2019-02-03 06:36] LABS: Abs Immature Grans 0.08 k/cumm (0.0-0.09); Absolute Eosinophil Count 0.32 k/cumm (0.0-0.7); Absolute Lymphocyte Count 1.24 k/cumm (1.2-3.4); Basophils % 0.2; Eosinophils % 1.8; HCT 27.7 % (36.0-46.0); HGB 8.3 g/dL (12.0-15.5); Immature Grans % 0.5; Lymphocytes % 7.1; Mean Platelet Volume 9.9 fL (8.0-11.0); Monocytes % 5.7; Neutrophils % 84.7; Platelet Count 325 x1000/uL (130-400); RBC 2.77 m/cumm (4.00-5.20); RBC Distribution Width 14.7 % (11.7-14.6); White Blood Cell Count 17.51 k/cumm (4.4-10.8)
[2019-02-03] MEDS: PIPERACILLIN/TAZO 3.375 GM in Normal Saline 50 ML IVPB ×3 (06:38→20:32)
[2019-02-03 06:44] LABS: Absolute Basophil Count 0.04 k/cumm (0.0-0.2); Absolute Neutrophil Count 14.83 k/cumm (1.2-6.7)
[2019-02-03 06:50] LABS: Anion Gap 5.9 mmol/L (3-11); BUN 37 mg/dL (7-18); CO2 28.1 mmol/L (21.0-32.0); CREATININE 1.76 mg/dL (0.55-1.02); Calcium 7.9 mg/dL (8.5-10.1); Chloride 101 mmol/L (98-107); Estimated GFR 28.89 (mL/min/1.73m2); Glucose 243 mg/dL (70-100); Sodium 135 mmol/L (136-145)
[2019-02-03 06:58] LABS: Troponin I 0.31 ng/mL (0.00-0.06)
[2019-02-03 07:45] LABS: Basophilic Stippling Present; Diff Comment RBC Morph Reviewed; Hypochromasia 1+; Macrocytosis 1+
[2019-02-03 07:46] LABS: Poikilocytes 1+; Polychromasia Present
[2019-02-03] MEDS: DULoxetine 30 MG CAP 60 MG PO (08:09)
[2019-02-03] MEDS: Calcium 600mg/Vit D 200U TAB 2 TAB PO ×2 (08:10→20:32)
[2019-02-03] MEDS: Omeprazole 20 MG CAPCR 40 MG PO (08:10)
[2019-02-03] MEDS: Aspirin E.C. 81 MG TABEC PO (08:10)
[2019-02-03] MEDS: Allopurinol 100 MG TAB PO (08:10)
[2019-02-03] MEDS: Folic Acid 1 MG TAB PO (08:10)
[2019-02-03] MEDS: Cyanocobalamin 500 MCG TAB 1000 MCG PO (08:11)
[2019-02-03] MEDS: Atorvastatin 40 MG TAB PO (08:11)
--- NOTE | 2019-02-03 08:17 | INITIAL_ITS ---
- If Service Date Differs Date of service: 02/03/19 Time of Service: 08:15 Care Management Initial Assess REASON FOR HOSPITALIZATION:: Healthcare acquired pneumonia PAST MEDICAL HISTORY/PAST SURGICAL HISTORY:: Abnormal mammography, ankle pain, A-fib, carpal tunnel syndrome, cervial disc disorder with myelopathy, cervical spondylosis with myelopathy, chest pain, COPD, chronic renal impairment associated with type 2 DM, Essential hypertension, folate deficiency, gout, hepatomegaly, hip joint inflamed, CAD, hyperlipidemia, hypertension, low back pain, menopausal syndrome, muscle fatigue, paroxysmal A-fib, posterior tibial tendon dysfunction, post menopausaul bleeding, postoperative wound dehiscence, primary osteoarthritis of left hip, renal impairment, restless leg syndrome, smoker, spinal stenosis of lumbar region, spinal stenosis of lumbar region at multiple levels, tarsal tunnel syndrome, trochanteric bursitis, upper respiratory tract infection, vitamin D deficiency, athrodesis, cervical repair, cholecystectomy, endometrial biopsy, spinal surgery, bilat tubal ligation, gynecologic surgery, hip surgery, orthopedic surgery, left eye surgery, ligation of fallopian tube, open carpal tunnel release, right wrist surgery, rotator cuff repair, CABG, incision and drainage, L total hip replacement. PREVIOUS FUNCTIONAL STATUS/SOCIAL/FAMILY SUPPORTS:: Ann-Marie was discharged from [facility] on 01/22/19 from [facility] where she was in SNF status post CABG at [facility]. When she was inpatient at [facility] she was treated for Hospital acquired pneumonia and fluid overload. She was then discharged to her daughters home with home health services. 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 She cared for her spouse at home who had Alzheimer's. Her spouse about 2 weeks ago while home on hospice. CURRENT FUNCTIONAL STATUS:: Ann-Marie in engaged in CM assessment. She is able to recall events that led to readmission. She states she developed increased shortness of breath at home and felt weaker. She states she had a fever prior to coming to the hospital. Ann-Marie does report a cough that is causing some right rib pain. She does have her cardiac pillow with her that she is using as a splint. ADVANCE DIRECTIVES:: On file at [facility] Agent Kim Stock Has patient been provided with information about the portal?: Yes Did the patient sign up for the portal?: No CODE STATUS:: Full Code INSURANCE COVERAGE / FINANCIAL ISSUES:: BCBS CURRENT HOME/COMMUNITY SERVICES/EQUIPMENT:: Ann-Marie has home health nursing, PT/OT and a FWW at home. She is staying with her daughter December until she fully recovers. She was to have an OT assessment on Monday and would like grab bars in the shower for safety at her daughters home. PRIMARY CARE PHYSICIAN:: POTENTIAL DISCHARGE NEEDS:: Resumptions of home health nursing, PT and OT. Follow up appointment to be rescheduled with . PATIENT/FAMILY EDUCATION NEEDS:: Acute illness education, discharge plan and follow-up, limitations, asked me 3, and self-management education. ANTICIPATED BARRIERS TO DISCHARGE:: Prolonged IV antibioitcs related to healthcare acquired pneumonia and multiple recent encounters with several healthcare systems. TRANSPORTATION:: Via private car with family at time of discharge. PLAN:: Ann-Marie is receiving Zosyn, Vancomycin to treat HAP. She conitnues to have an oxygen demand and conitnues to have tachypnea. Heartrates have been elevated r/t afib/flutter and she continues on a cardizem drip. She will remain ICU level of care today. When she is medically ready for discharge she will return home to her daughters with resumption of home health services. Readmission - Date of First Admission Date of 1st Admission: 01/15/19 - Date of this Admission Date of Admission: 02/02/19 This admission was: Through ED - Office Visit Since 1st Admission Have you seen your PCP in the office since discharge?: No Had an appointment Been Scheduled?: Yes Date of Scheduled Appointment: 02/05/19 Describe barriers for scheduling or getting an appointment: Readmitted to [facility] prior to appointment - I. Interview patient and/or Family Difficulty reaching your doctor or getting an office appt?: No Have you had trouble purchasing/ or taking medication?: Yes Have you had trouble with getting meals at home?: No Did you feel ready for discharge when you left the last time: No Why did you not feel ready for discharge?: I continued to have shortness of breath and felt weak at the time of my last discharge. My was just placed on hospice, and had some stressors. I did not feel that I was ready to go home last discharge. Were services received that you thought were set up on disch: Yes What services were received?: Home health nursing and PT Did you call your physician beore you came to the ED?: No Did your physician tell you to come in?: No - If the patient had a VNA ordered Did the patient have a VNA order?: Yes Did you call the VNA before you came?: Yes Did the VNA tell you to come to the hospital?: Yes Do you know if the VNA called your physician?: No - If the patient had home care service Call them to discuss the patient's admission: Per the patient home health nurse came to the home, found her to be febrile, having increased weakness and shortness of breath. - ED visits How many ED visits in the past 12 months: 4 - Assessment for Readmission Summary of readmission circumstances, based upon interviews: Ann-Marie was admitted on 01/15/19 with Health care associated pneumonia per the ED notes. She has just been at [facility] r/t NSTEMI and s/p CABG on 01/03/19 then transitioned to [facility] for recovery. At the time of her admission on 01/15 her WBC was 14.57, and chest xray showed a left infiltrate and or effusion. She presented to the ED with shortness of breath and hypoxia in the mid 80's. Wbc was 14.57, 01/17 WBC 23.58 on day of discharge it was 15.53. (patient receive d steroids). Blood cultures and sputum neg 01/15/19. History: From previous admission (1) HAP (hospital-acquired pneumonia): Start date: 01/20/19 Start time: 11:19 Current visit: No Status: Acute Per provider asessment and plan on 01/20/19 antibiotics day 4 and ICS. Coverage for HCAP due to recent hospitalization. CABG x3 vessel at [facility] on 01/03/19 s/p NSTEMI. Appeared to be a component of fluid overload on presentation. Echocardiogram on this admission shows LVEF 55-60%. Showing clinical symptoms of fluid overload, +JVD, 2+ pitting edema, crackles to bilateral bases. Given a dose of 40 mg IVP lasix yesterday resulting in an increase in her creatinine and BUN today. Today she looks clinically more overloaded though she states she feels better, started on a lasix drip at 5 mg/hr given her ZACHARY, with gonzalez insertion. Monitor BUN/Creatinine, daily weights, strict I/O. Titrate as needed. 01/21/19(1) HAP (hospital-acquired pneumonia): Start date: 01/21/19 Start time: 15:38 Current visit: No Status: Acute Recent hospitalization at [facility] for CABG on 01/03/19, with subsequent transfer to [facility] and rehab. On presentation she was hypoxic with shortness of breath, productive cough, with leukocytosis improving. Increasing platelet count at 767 could be contributing from zosyn, d/c zosyn, monitor platelet count by am labs. Afebrile, repeat CXR with stable LLL infiltrate, continue to monitor, procalcitonin being checked at this time. Improving oxygenation 1L at 95%. Cough improving, continue nebs, steroids and acapella. Continue to monitor. Record review there is no record of the Procalcitonin for 01/21/19. Procalitonin levels In healthy individuals would be less than 0.01. The level of procalcitonin rises in response to a pro-inflammatory stimulus especially if it is bacterial and it is present in the acute phase of infection, It will not rise if the infection is viral. The higher the procalcitonin level is the greater the infection may be. Admission on 02/02/19 Procalcitonin level 0.7 elevated, toponin 0.25 - 0.33 WBC 23.38 BNP 5104 ([id number]) CM assessment:Current stay patient is receiving Zosyn and Vancomycin plan to treat for at least 5 days per provider max would be 7 depending on symptoms. In addition to HAP. Ann-Marie is receiving treatment for aflutter, with IV cardizem, she has a history of DM and a recent CABG. She is requiring resp support, including oxygen and cardiac monitoring. CM did interview the patient she states in [place] she was not ready to go home at time of discharge and continued to have shortness of breath and weakness upon arriving home. She states she took her medications as prescribed and was able to receive resources as ordered. Ann-Marie is a patient of our palliative care provider. KRISTINA tool as follows from discharge on 01/22/19 LACE Index Scoring Tool - Questions: Length of Stay (in days): 4 - 6 Acuity (Admit via E.D.?): Yes Comorbidities: Diabetes w/o Complication, Congestive Heart Failure, Chronic Pulmonary Disease E.D. Visits: 5 - Answers: Total Score: 16 Risk of Readmission: High Risk Care Management Discharge Reason for Hospitalization: HCAP, COPD, EXAC, CHF, Acute Hypoxic Respiratory Failure Discharge Plan: Ann-Marie will discharge to her daughter's home in [place], [place]. She will have new orders for [facility] for new RN, and PT. Ann-Marie reports having all needed DME including shower chair, walker, commode, grab rails and hand held shower. She states her daughter's home is all one level. Ann-Marie will transport via private vehicle with family. Patient/Family Education Needs: Review of discharge instructions, discuss Ask Me Three. Services Needed at Discharge: Home Health Care Services (RN, PT)
[2019-02-03] MEDS: Insulin Aspart 300 UNITS/3 ML PEN SC ×4 (08:20→23:29)
[2019-02-03 09:39] LABS: Troponin I 0.33 ng/mL (0.00-0.06)
[2019-02-03] MEDS: MAGNESIUM SULFATE 2 GM/50 ML BAG IVPB (09:39)
[2019-02-03] MEDS: Heparin 5,000 UNITS/ML VIAL 5000 UNITS SC ×3 (09:40→23:14)
[2019-02-03] MEDS: oxyCODONE 5 MG TAB PO (10:11)
[2019-02-03] MEDS: DOXYCYCLINE 100 MG in Normal Saline 100 ML IVPB (10:36)
--- NOTE | 2019-02-03 11:28 | W.PM.PROGNOT ---
Date of Service Date of service: 02/03/19 Time of Service: 11:28 Assessment and Plan (1) HCAP (healthcare-associated pneumonia): Current visit: Yes Status: Acute Likely on the basis of incomplete treatment of prior infection, now with bibasilar infiltrates, leukocytosis, and hypoxia concerning for infection. Currently on Vancomycin, Pip-Tazo, and Doxycycline day #1. Sputum Culture pending, and blood culture with growth of GPC, not yet speciated. Continue to await blood and sputum cultures, and narrow antibiotic regimen as able. Also with concurrent UTI, with Urine Cultures still pending. (2) UTI (urinary tract infection): Current visit: Yes Status: Acute On antibiotics as above. Awaiting urine culture results. (3) CKD (chronic kidney disease) stage 3, GFR 30-59 ml/min: Current visit: No Status: Chronic Creatinine at baseline, with gentle IVFs given contrast administration at time of admission. Monitor for signs of fluid overload. (4) Atrial flutter: Current visit: Yes Status: Acute History of PAF, not on anticoagulation following excision of the PINEDA at the time of her CABG. Currently with rapid rate requiring initiation of both BB and Cardizem gtt. Rapid Atrial Flutter occured in the setting of acute infection and hypoxia. Continue and wean Cardizem as able. Also on standing oral BB and IV BB on a prn basis. HR appears well-controlled. Continue to trend troponins, replete electrolytes, treat infection, and monitor on telemetry. Qualifiers: Atrial flutter type: typical Qualified Code(s): I48.3 - Typical atrial flutter (5) CAD (coronary artery disease): Current visit: Yes Status: Chronic S/p CABG in December - patient with minimal, equivocal elevation in troponin in setting of infection, rapid atrial flutter, and poor renal clearance. Likely demand ischemia. Continue to trend troponin for now, but hold off on active anticoagulation. ECG is non-ischemic (TW Inversions laterally appear to be chronic) and patient is asymptomatic. Continue BB, ASA, high potency statin. (6) S/P CABG (coronary artery bypass graft): Current visit: No Status: Chronic (7) Diabetes mellitus: Current visit: No Status: Chronic Currently on Victoza. 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 (9) Essential hypertension: Current visit: No Status: Chronic Currently on BB as above. (10) Hyperlipidemia: Current visit: No Status: Chronic Continue Atorvastatin. (11) DVT prophylaxis: Current visit: Yes Status: Acute SC Heparin. (12) Advance directive on file: Current visit: Yes Status: Acute Full Code. Subjective Interval history since last seen: 68 year old woman with a history of recent hospitalizations and treatment for Pneumonia, admitted 02/02 from [facility] Emergency Department with a diagnosis of Pneumonia. Mrs. Griggs has a Past Medical History significant for CKD, Obesity, DM, COPD, depression, gout, RLS, and spinal stenosis. She also had known CAD, s/p 3 vessel CABG at [facility] [place] in December of 2018 following an NSTEMI. She also has a prior history of PAF, for which she underwent excision of her Left Atrial Appendage at the time of her CABG, and now remains off anticoagulation. Following her surgery the patient was discharged to [facility], prior to being admitted at [facility] with a diagnosis of Healthcare Aquired Pneumonia between 01/15 and 01/22/2019. She was treated with Vancomycin for 3 days, discontinued due to a negative MRSA Swab, as well as Pip-Tazo for 5 days. She was discharged home on a tapering dose of prednisone. She presented back to the ED with complaints of left sided pleuritic CP and dyspnea. She was found to be in Atrial Flutter with a rapid rate and hypoxic, with subsequent CTA of the chest showing evidence of bibasilar infiltrates without evidence of a PE. Work-up showed evidence of an elevated lactate, leukocytosis, as well as a potential UTI by urinalysis. She also had a mild and equivocal elevation in troponin. At that time the patient was referred for admission for further evaluation and treatment. This morning Mrs Griggs feels improved, but still with ongoing dyspnea. Her HR is well-controlled but she remains on Cardizem gtt. No overnight events reported. She remains afebrile. Exam Narrative Exam Narrative: General: Patient appears comfortable, AAOX3, NAD Skin: Midline Sternotomy scar appears well healing Neck: Supple CV: Regular, nontachycardic, S1S2, No murmur. In atrial flutter by monitor. Pulmonary: Bibasilar crackles, No wheezing or rhonchi Abdomen: + Bowel Sounds, soft, nontender, nondistended Vascular: Mild b/l lower extremity edema Psych: Normal mood and affect. Objective Objective Clinical Data: Abnormal lab results 02/02/19 02/02/19 02/02/19 Range/Units 17:57 17:57 17:57 WBC 23.38 H (4.4-10.8) k/cumm RBC 3.21 L (4.00-5.20) m/cumm Hgb 9.8 L (12.0-15.5) g/dL Hct 31.8 L (36.0-46.0) % MCV 99.1 H (80-95) fL MCHC 30.8 L (32.0-36.0) g/dL RDW 14.7 H (11.7-14.6) % Absolute Neutrophils 20.85 H (1.2-6.7) k/cumm Absolute Lymphocytes 0.89 L (1.2-3.4) k/cumm Absolute Monocytes 1.24 H (0.11-0.7) k/cumm PT (9.3-11.0) sec INR (0.9-1.1) Sodium 134 L (136-145) mmol/L Chloride 97 L (98-107) mmol/L BUN 40 H (7-18) mg/dL Creatinine 1.89 H (0.55-1.02) mg/dL Glucose 228 H (70-100) mg/dL Lactate 1.9 H (0.6-1.4) mmol/l Calcium (8.5-10.1) mg/dL Magnesium (1.8-2.4) mg/dL AST 11 L (15-37) U/L Alkaline Phosphatase 124 H (46-116) U/L Troponin I 0.25 H* (0.00-0.06) ng/mL NT-Pro-B Natriuret Pep ( - 299) pg/mL Albumin 2.8 L (3.4-5.0) g/dL Urine Protein (Negative) mg/dL Urine Blood (Negative) Ur Leukocyte Esterase (Negative) Urine RBC (0-2) 02/02/19 02/02/19 02/02/19 Range/Units 17:57 17:57 20:11 WBC (4.4-10.8) k/cumm RBC (4.00-5.20) m/cumm Hgb (12.0-15.5) g/dL Hct (36.0-46.0) % MCV (80-95) fL MCHC (32.0-36.0) g/dL RDW (11.7-14.6) % Absolute Neutrophils (1.2-6.7) k/cumm Absolute Lymphocytes (1.2-3.4) k/cumm Absolute Monocytes (0.11-0.7) k/cumm PT 11.6 H (9.3-11.0) sec INR 1.2 H (0.9-1.1) Sodium (136-145) mmol/L Chloride (98-107) mmol/L BUN (7-18) mg/dL Creatinine (0.55-1.02) mg/dL Glucose (70-100) mg/dL Lactate (0.6-1.4) mmol/l Calcium (8.5-10.1) mg/dL Magnesium (1.8-2.4) mg/dL AST (15-37) U/L Alkaline Phosphatase (46-116) U/L Troponin I (0.00-0.06) ng/mL NT-Pro-B Natriuret Pep 5104 H ( - 299) pg/mL Albumin (3.4-5.0) g/dL Urine Protein 30 H (Negative) mg/dL Urine Blood Moderate H (Negative) Ur Leukocyte Esterase Moderate H (Negative) Urine RBC 10-20 H (0-2) 02/02/19 02/02/19 02/03/19 Range/Units 22:27 22:27 02:14 WBC (4.4-10.8) k/cumm RBC (4.00-5.20) m/cumm Hgb (12.0-15.5) g/dL Hct (36.0-46.0) % MCV (80-95) fL MCHC (32.0-36.0) g/dL RDW (11.7-14.6) % Absolute Neutrophils (1.2-6.7) k/cumm Absolute Lymphocytes (1.2-3.4) k/cumm Absolute Monocytes (0.11-0.7) k/cumm PT (9.3-11.0) sec INR (0.9-1.1) Sodium (136-145) mmol/L Chloride (98-107) mmol/L BUN (7-18) mg/dL Creatinine (0.55-1.02) mg/dL Glucose (70-100) mg/dL Lactate (0.6-1.4) mmol/l Calcium (8.5-10.1) mg/dL Magnesium 1.6 L (1.8-2.4) mg/dL AST (15-37) U/L Alkaline Phosphatase (46-116) U/L Troponin I 0.25 H* 0.26 H* (0.00-0.06) ng/mL NT-Pro-B Natriuret Pep ( - 299) pg/mL Albumin (3.4-5.0) g/dL Urine Protein (Negative) mg/dL Urine Blood (Negative) Ur Leukocyte Esterase (Negative) Urine RBC (0-2) 02/03/19 02/03/19 02/03/19 Range/Units 05:50 05:50 08:50 WBC 17.51 H (4.4-10.8) k/cumm RBC 2.77 L (4.00-5.20) m/cumm Hgb 8.3 L (12.0-15.5) g/dL Hct 27.7 L (36.0-46.0) % MCV 100.0 H (80-95) fL MCHC 30.0 L (32.0-36.0) g/dL RDW 14.7 H (11.7-14.6) % Absolute Neutrophils 14.83 H (1.2-6.7) k/cumm Absolute Lymphocytes (1.2-3.4) k/cumm Absolute Monocytes 1.00 H (0.11-0.7) k/cumm PT (9.3-11.0) sec INR (0.9-1.1) Sodium 135 L (136-145) mmol/L Chloride (98-107) mmol/L BUN 37 H (7-18) mg/dL Creatinine 1.76 H (0.55-1.02) mg/dL Glucose 243 H (70-100) mg/dL Lactate (0.6-1.4) mmol/l Calcium 7.9 L (8.5-10.1) mg/dL Magnesium (1.8-2.4) mg/dL AST (15-37) U/L Alkaline Phosphatase (46-116) U/L Troponin I 0.31 H* 0.33 H* (0.00-0.06) ng/mL NT-Pro-B Natriuret Pep ( - 299) pg/mL Albumin (3.4-5.0) g/dL Urine Protein (Negative) mg/dL Urine Blood (Negative) Ur Leukocyte Esterase (Negative) Urine RBC (0-2) Vital Signs Temperature 36.4 C L 02/03/19 09:00 Temperature Source Temporal Artery Scan 02/03/19 09:00 Pulse 72 02/03/19 06:01 Pulse 86 02/03/19 06:40 Respiratory Rate 25 H 02/03/19 06:40 Respiratory Effort 02/03/19 09:00 Respiratory Depth Normal 02/03/19 09:00 Respiratory Pattern Normal 02/03/19 09:00 Blood Pressure 112/46 L 02/03/19 09:00 Blood Pressure Mean 68 02/03/19 09:00 Blood Pressure Position Supine 02/03/19 02:39 Pulse Oximetry 94 L 02/03/19 06:40 Oxygen Delivery Method Nasal Cannula 02/03/19 02:39 Oxygen Flow Rate 2 02/03/19 02:39 Pain Level 8 02/03/19 10:11 Intake & Output 02/02/19 02/02/19 02/03/19 11:59 23:59 11:59 Intake Total 1161.0 / 1161.0 275.667 / 275.667 Output Total 425 / 425 Balance 1161.0 / 1161.0 -149.333 / -149.333 Weight 128 kg 128 kg Intake: IV 1161.0 / 1161.0 35.667 / 35.667 Oral 240 / 240 Output: Urine 425 / 425 Other: Urine Color Light [place] Urine Appearance Clear Urine Odor None Voiding Methods Bedside Commode Laboratory Results WBC 17.51 k/cumm (4.4-10.8) H 02/03/19 05:50 RBC 2.77 m/cumm (4.00-5.20) L 02/03/19 05:50 Hgb 8.3 g/dL (12.0-15.5) L 02/03/19 05:50 Hct 27.7 % (36.0-46.0) L 02/03/19 05:50 MCV 100.0 fL (80-95) H 02/03/19 05:50 MCH 30.0 pg (27.0-33.0) 02/03/19 05:50 MCHC 30.0 g/dL (32.0-36.0) L 02/03/19 05:50 RDW 14.7 % (11.7-14.6) H 02/03/19 05:50 Plt Count 325 x1000/uL (130-400) 02/03/19 05:50 MPV 9.9 fL (8.0-11.0) 02/03/19 05:50 Immature Gran % 0.5 02/03/19 05:50 Neutrophils % 84.7 02/03/19 05:50 Lymphocytes % 7.1 02/03/19 05:50 Monocytes % 5.7 02/03/19 05:50 Eosinophils % 1.8 02/03/19 05:50 Basophils % 0.2 02/03/19 05:50 Absolute Neutrophils 14.83 k/cumm (1.2-6.7) H 02/03/19 05:50 Absolute Lymphocytes 1.24 k/cumm (1.2-3.4) 02/03/19 05:50 Absolute Monocytes 1.00 k/cumm (0.11-0.7) H 02/03/19 05:50 Absolute Eosinophils 0.32 k/cumm (0.0-0.7) 02/03/19 05:50 Absolute Basophils 0.04 k/cumm (0.0-0.2) 02/03/19 05:50 Differential Comment Rbc morph reviewed 02/03/19 05:50 RBC Morphology See below 02/03/19 05:50 Polychromasia Present 02/03/19 05:50 Hypochromasia 1+ 02/03/19 05:50 Poikilocytosis 1+ 02/03/19 05:50 Basophilic Stippling Present 02/03/19 05:50 Macrocytosis 1+ 02/03/19 05:50 PT 11.6 sec (9.3-11.0) H 02/02/19 17:57 INR 1.2 (0.9-1.1) H 02/02/19 17:57 APTT 27.0 sec (21.0-31.4) 02/02/19 17:57 Sodium 135 mmol/L (136-145) L 02/03/19 05:50 Potassium 4.0 mmol/L (3.5-5.1) 02/03/19 05:50 Chloride 101 mmol/L (98-107) 02/03/19 05:50 Carbon Dioxide 28.1 mmol/L (21.0-32.0) 02/03/19 05:50 Anion Gap 5.9 mmol/L (3-11) 02/03/19 05:50 BUN 37 mg/dL (7-18) H 02/03/19 05:50 Creatinine 1.76 mg/dL (0.55-1.02) H 02/03/19 05:50 Estimated GFR/1.73 m2 28.89 (mL/min/1.73m2) 02/03/19 05:50 Glucose 243 mg/dL (70-100) H 02/03/19 05:50 Lactate 1.2 mmol/l (0.6-1.4) 02/02/19 22:27 Calcium 7.9 mg/dL (8.5-10.1) L 02/03/19 05:50 Magnesium 1.6 mg/dL (1.8-2.4) L 02/02/19 22:27 Total Bilirubin 0.8 mg/dL (0.2-1.0) 02/02/19 17:57 AST 11 U/L (15-37) L 02/02/19 17:57 ALT 29 U/L (12-78) 02/02/19 17:57 Alkaline Phosphatase 124 U/L (46-116) H 02/02/19 17:57 Troponin I 0.33 ng/mL (0.00-0.06) H* 02/03/19 08:50 NT-Pro-B Natriuret Pep 5104 pg/mL (-299) H 02/02/19 17:57 Total Protein 7.0 g/dL (6.4-8.2) 02/02/19 17:57 Albumin 2.8 g/dL (3.4-5.0) L 02/02/19 17:57 Procalcitonin 0.7 ng/mL 02/03/19 02:14 TSH 0.97 uIU/mL (0.358-3.74) 02/02/19 17:57 Urine Color Yellow (Yellow) 02/02/19 20:11 Urine Clarity Sl cloudy 02/02/19 20:11 Urine pH 5.5 (5-8) 02/02/19 20:11 Ur Specific [place] 1.015 (1.005-1.025) 02/02/19 20:11 Urine Protein 30 mg/dL (Negative) H 02/02/19 20:11 Urine Ketones Negative mg/dL (Negative) 02/02/19 20:11 Urine Blood Moderate (Negative) H 02/02/19 20:11 Urine Nitrite Negative (Negative) 02/02/19 20:11 Urine Bilirubin Negative (Negative) 02/02/19 20:11 Urine Urobilinogen 0.2 EU/dL (Up TO 0.2) 02/02/19 20:11 Ur Leukocyte Esterase Moderate (Negative) H 02/02/19 20:11 Urine RBC 10-20 (0-2) H 02/02/19 20:11 Urine WBC 10-20 HPF (0-5) 02/02/19 20:11 Ur Epithelial Cells Many HPF (Negative) 02/02/19 20:11 Urine Crystals Negative HPF (Negative) 02/02/19 20:11 Urine Bacteria Few HPF (Negative) 02/02/19 20:11 Urine Casts Negative LPF (Negative) 02/02/19 20:11 Urine Mucus Negative (Negative) 02/02/19 20:11 Urine Other (Negative) 02/02/19 20:11 Ur Culture Indicated? C&s done as ordered 02/02/19 20:11 Urine Glucose Negative mg/dL (Negative) 02/02/19 20:11
--- NOTE | 2019-02-03 12:39 | PHARADMIT ---
Addendum entered by Maya Greer 02/10/19 10:18: Pharmacy Note Subjective pt finally converted this morning per morning report Objective VS-okay weight-127.7(down) SCr-1.75(up) mag-1.7(down) BG-302 Assessment furosemide drip continued insulin glargine dose increased from 10 to 20 mg daily no evidence of VTE per radiology report Plan watch SCr and weight. no MD note yet today Addendum entered by Maya Greer 02/09/19 12:07: Pharmacy Note Subjective pt has some lower extremity edema and crackles per morning report Objective VS-okay SCr-1.71(up) Assessment diltiazem increased from 60 mg Q8H to 60 mg Q6H IVP furosemide changed back to drip due to increase in SCr scheduled aspart and glargine ordered prednisone ordered daily, sucralfate discontinued Plan watch SCr, venous dopplers ordered of lower extremities Addendum entered by Maya Greer 02/08/19 14:38: Pharmacy Note Subjective weaning pt off oxygen Objective HR-103 other VS okay, SCr 1.62 mag-1.7 WBC-14.94(up) weight-129(up 0.9 kg) Assessment diltiazem increased from 30 mg to 60 mg Q8H doxycycline, vanco, zosyn, and oxycodone discontinued mag and potassium replacement ordered prednisone dose decreased from 40 to 20 mg BID furosemide drip changed to IVP furosemide Plan continue to watch VS/weight, labs and for med changes Addendum entered by Rosa Thomas 02/07/19 14:45: Pharmacy Note Subjective feels better per elijah PAK, pt has gonzalez, oxygen requirements are lower Objective Weight down 1.8kg overnight, BP ok, HR fluctuates 70-130's in A-flutter lytes good, BG 254, Procalcitonin today <0.1 Assessment Lasix infusion continues @ 1mg/hr Day #4-5 triple Anbx for HCAP and UTI (?contaminent) Is not anticoagulated at home, currently on Heparin SC Pt's own Victoza has not been brought in, not sure if MD is aware Plan follow I/O, weight, Lasix infusion, Anbx Addendum entered by Tiffanie Haines 02/06/19 10:01: Pharmacy Note Subjective HAP, A flutter. still requires O2, 4th day of abx Objective HR 98, H/H stable Assessment Md to order: repeat chest xray, procalcitonin. may start furosemide infusion, vancomycin continues Plan evaluate vancomycin trough ordered for today. look for procalcitonin results Original Note: Admission Pharmacy Clinical Review Hospital Acquired Pneumonia, A-flutter Code Status Full Code Current Weight Wgt-128 kg Renally Cleared and Narrow Therapeutic Index Meds CRCl~ 32.8 mL/min Meds-OK QTc Value / Action Taken QTc-449 NA BP Control, Fever BP- 112/46 Tmx- 36.7C Electrolytes reviewed Na- 15 K+4.0 Mag- 1.6 DVT Prophylaxis Heparin, Opiate Usage / Scheduled Bowel Regimen Ordered Yes Yes Plt/SCr for Heparin / Enoxaparin Plts-325 SCr-1.76 INR for Warfarin inr-1.2 H/H stable, WBC/Bands H&H- 8.3/27.7 WBC- 17.51 Antibiotic appropriateness Doxycycline, Zosyn, Vancomycin, (Zyvox in ER) Cultures and Sensitivities Blood-Gram+ cocci, Sputum & Urine-pending Surgical ABX d/c within 24 hr na DM control / Insulin Dosing BG-243 Aspart Heart Failure (Check EF%) (MARTIR's, B-Block, Diuretics) Diltiazem drip, Lasix, Lopressor IV to PO Switch No Home Meds Reviewed Yes Home Meds Not Ordered PatOwn Victoza (AWAITING) Celebrex, EpiPen, Glipizide, Lisinopril, Xarelto, Comments wanted Gabapentin dose to remain at home dose, Symbicort (for Advair)
[2019-02-03] MEDS: Gabapentin 600 MG TAB PO ×2 (14:01→20:32)
[2019-02-03 14:21] LABS: Lactate-non-spesis 1.6 mmol/l (0.6-1.4)
[2019-02-03 14:52] LABS: Troponin I 0.31 ng/mL (0.00-0.06)
[2019-02-03] MEDS: Levalbuterol 1.25 MG/3 ML UPD VIAL UPD (16:16)
--- NOTE | 2019-02-03 16:56 | W.PM.PROGNOT ---
Date of Service Date of service: 02/03/19 Time of Service: 16:56 Assessment and Plan (1) UTI (urinary tract infection): Current visit: Yes Status: Acute (2) Gram-positive bacteremia: Current visit: Yes Status: Acute (3) Atrial flutter: Current visit: Yes Status: Acute Qualifiers: Atrial flutter type: typical Qualified Code(s): I48.3 - Typical atrial flutter (4) HCAP (healthcare-associated pneumonia): Current visit: Yes Status: Acute no perpih access line doing well will follow perpih (5) CKD (chronic kidney disease) stage 3, GFR 30-59 ml/min: Current visit: No Status: Chronic Subjective Interval history since last seen: line site is c/d/i. functioning well. no hemetoma. not on anticoag Exam Skin Other: line site is c/d/i. no arm pain or swelling. no cp or sob Objective Objective Clinical Data: Abnormal lab results 02/02/19 02/02/19 02/02/19 Range/Units 17:57 17:57 17:57 WBC 23.38 H (4.4-10.8) k/cumm RBC 3.21 L (4.00-5.20) m/cumm Hgb 9.8 L (12.0-15.5) g/dL Hct 31.8 L (36.0-46.0) % MCV 99.1 H (80-95) fL MCHC 30.8 L (32.0-36.0) g/dL RDW 14.7 H (11.7-14.6) % Absolute Neutrophils 20.85 H (1.2-6.7) k/cumm Absolute Lymphocytes 0.89 L (1.2-3.4) k/cumm Absolute Monocytes 1.24 H (0.11-0.7) k/cumm PT (9.3-11.0) sec INR (0.9-1.1) Sodium 134 L (136-145) mmol/L Chloride 97 L (98-107) mmol/L BUN 40 H (7-18) mg/dL Creatinine 1.89 H (0.55-1.02) mg/dL Glucose 228 H (70-100) mg/dL Lactate 1.9 H (0.6-1.4) mmol/l Calcium (8.5-10.1) mg/dL Magnesium (1.8-2.4) mg/dL AST 11 L (15-37) U/L Alkaline Phosphatase 124 H (46-116) U/L Troponin I 0.25 H* (0.00-0.06) ng/mL NT-Pro-B Natriuret Pep ( - 299) pg/mL Albumin 2.8 L (3.4-5.0) g/dL Urine Protein (Negative) mg/dL Urine Blood (Negative) Ur Leukocyte Esterase (Negative) Urine RBC (0-2) 02/02/19 02/02/19 02/02/19 Range/Units 17:57 17:57 20:11 WBC (4.4-10.8) k/cumm RBC (4.00-5.20) m/cumm Hgb (12.0-15.5) g/dL Hct (36.0-46.0) % MCV (80-95) fL MCHC (32.0-36.0) g/dL RDW (11.7-14.6) % Absolute Neutrophils (1.2-6.7) k/cumm Absolute Lymphocytes (1.2-3.4) k/cumm Absolute Monocytes (0.11-0.7) k/cumm PT 11.6 H (9.3-11.0) sec INR 1.2 H (0.9-1.1) Sodium (136-145) mmol/L Chloride (98-107) mmol/L BUN (7-18) mg/dL Creatinine (0.55-1.02) mg/dL Glucose (70-100) mg/dL Lactate (0.6-1.4) mmol/l Calcium (8.5-10.1) mg/dL Magnesium (1.8-2.4) mg/dL AST (15-37) U/L Alkaline Phosphatase (46-116) U/L Troponin I (0.00-0.06) ng/mL NT-Pro-B Natriuret Pep 5104 H ( - 299) pg/mL Albumin (3.4-5.0) g/dL Urine Protein 30 H (Negative) mg/dL Urine Blood Moderate H (Negative) Ur Leukocyte Esterase Moderate H (Negative) Urine RBC 10-20 H (0-2) 02/02/19 02/02/19 02/03/19 Range/Units 22:27 22:27 02:14 WBC (4.4-10.8) k/cumm RBC (4.00-5.20) m/cumm Hgb (12.0-15.5) g/dL Hct (36.0-46.0) % MCV (80-95) fL MCHC (32.0-36.0) g/dL RDW (11.7-14.6) % Absolute Neutrophils (1.2-6.7) k/cumm Absolute Lymphocytes (1.2-3.4) k/cumm Absolute Monocytes (0.11-0.7) k/cumm PT (9.3-11.0) sec INR (0.9-1.1) Sodium (136-145) mmol/L Chloride (98-107) mmol/L BUN (7-18) mg/dL Creatinine (0.55-1.02) mg/dL Glucose (70-100) mg/dL Lactate (0.6-1.4) mmol/l Calcium (8.5-10.1) mg/dL Magnesium 1.6 L (1.8-2.4) mg/dL AST (15-37) U/L Alkaline Phosphatase (46-116) U/L Troponin I 0.25 H* 0.26 H* (0.00-0.06) ng/mL NT-Pro-B Natriuret Pep ( - 299) pg/mL Albumin (3.4-5.0) g/dL Urine Protein (Negative) mg/dL Urine Blood (Negative) Ur Leukocyte Esterase (Negative) Urine RBC (0-2) 02/03/19 02/03/19 02/03/19 Range/Units 05:50 05:50 08:50 WBC 17.51 H (4.4-10.8) k/cumm RBC 2.77 L (4.00-5.20) m/cumm Hgb 8.3 L (12.0-15.5) g/dL Hct 27.7 L (36.0-46.0) % MCV 100.0 H (80-95) fL MCHC 30.0 L (32.0-36.0) g/dL RDW 14.7 H (11.7-14.6) % Absolute Neutrophils 14.83 H (1.2-6.7) k/cumm Absolute Lymphocytes (1.2-3.4) k/cumm Absolute Monocytes 1.00 H (0.11-0.7) k/cumm PT (9.3-11.0) sec INR (0.9-1.1) Sodium 135 L (136-145) mmol/L Chloride (98-107) mmol/L BUN 37 H (7-18) mg/dL Creatinine 1.76 H (0.55-1.02) mg/dL Glucose 243 H (70-100) mg/dL Lactate (0.6-1.4) mmol/l Calcium 7.9 L (8.5-10.1) mg/dL Magnesium (1.8-2.4) mg/dL AST (15-37) U/L Alkaline Phosphatase (46-116) U/L Troponin I 0.31 H* 0.33 H* (0.00-0.06) ng/mL NT-Pro-B Natriuret Pep ( - 299) pg/mL Albumin (3.4-5.0) g/dL Urine Protein (Negative) mg/dL Urine Blood (Negative) Ur Leukocyte Esterase (Negative) Urine RBC (0-2) 02/03/19 02/03/19 Range/Units 14:08 14:08 WBC (4.4-10.8) k/cumm RBC (4.00-5.20) m/cumm Hgb (12.0-15.5) g/dL Hct (36.0-46.0) % MCV (80-95) fL MCHC (32.0-36.0) g/dL RDW (11.7-14.6) % Absolute Neutrophils (1.2-6.7) k/cumm Absolute Lymphocytes (1.2-3.4) k/cumm Absolute Monocytes (0.11-0.7) k/cumm PT (9.3-11.0) sec INR (0.9-1.1) Sodium (136-145) mmol/L Chloride (98-107) mmol/L BUN (7-18) mg/dL Creatinine (0.55-1.02) mg/dL Glucose (70-100) mg/dL Lactate 1.6 H (0.6-1.4) mmol/l Calcium (8.5-10.1) mg/dL Magnesium (1.8-2.4) mg/dL AST (15-37) U/L Alkaline Phosphatase (46-116) U/L Troponin I 0.31 H* (0.00-0.06) ng/mL NT-Pro-B Natriuret Pep ( - 299) pg/mL Albumin (3.4-5.0) g/dL Urine Protein (Negative) mg/dL Urine Blood (Negative) Ur Leukocyte Esterase (Negative) Urine RBC (0-2) Vital Signs Temperature 36.6 C 02/03/19 15:30 Temperature Source Temporal Artery Scan 02/03/19 15:30 Pulse 82 02/03/19 16:21 Pulse 83 02/03/19 12:40 Respiratory Rate 27 H 02/03/19 16:21 Respiratory Effort 02/03/19 15:30 Respiratory Depth Normal 02/03/19 15:30 Respiratory Pattern Normal 02/03/19 15:30 Blood Pressure 110/86 02/03/19 15:30 Blood Pressure Mean 94 02/03/19 15:30 Blood Pressure Position Supine 02/03/19 15:30 Pulse Oximetry 97 02/03/19 16:21 Oxygen Delivery Method Nasal Cannula 02/03/19 16:16 Oxygen Flow Rate 2 02/03/19 16:16 Pain Level 5 02/03/19 15:30 Intake & Output 02/02/19 02/03/19 02/03/19 23:59 11:59 23:59 Intake Total 1161.0 / 1161.0 325.667 / 325.667 Output Total 425 / 425 Balance 1161.0 / 1161.0 -99.333 / -99.333 Weight 128 kg 128 kg Intake: IV 1161.0 / 1161.0 85.667 / 85.667 Oral 240 / 240 Output: Urine 425 / 425 Other: Urine Color Light [place] Urine Appearance Clear Urine Odor None Voiding Methods Bedside Commode Laboratory Results WBC 17.51 k/cumm (4.4-10.8) H 02/03/19 05:50 RBC 2.77 m/cumm (4.00-5.20) L 02/03/19 05:50 Hgb 8.3 g/dL (12.0-15.5) L 02/03/19 05:50 Hct 27.7 % (36.0-46.0) L 02/03/19 05:50 MCV 100.0 fL (80-95) H 02/03/19 05:50 MCH 30.0 pg (27.0-33.0) 02/03/19 05:50 MCHC 30.0 g/dL (32.0-36.0) L 02/03/19 05:50 RDW 14.7 % (11.7-14.6) H 02/03/19 05:50 Plt Count 325 x1000/uL (130-400) 02/03/19 05:50 MPV 9.9 fL (8.0-11.0) 02/03/19 05:50 Immature Gran % 0.5 02/03/19 05:50 Neutrophils % 84.7 02/03/19 05:50 Lymphocytes % 7.1 02/03/19 05:50 Monocytes % 5.7 02/03/19 05:50 Eosinophils % 1.8 02/03/19 05:50 Basophils % 0.2 02/03/19 05:50 Absolute Neutrophils 14.83 k/cumm (1.2-6.7) H 02/03/19 05:50 Absolute Lymphocytes 1.24 k/cumm (1.2-3.4) 02/03/19 05:50 Absolute Monocytes 1.00 k/cumm (0.11-0.7) H 02/03/19 05:50 Absolute Eosinophils 0.32 k/cumm (0.0-0.7) 02/03/19 05:50 Absolute Basophils 0.04 k/cumm (0.0-0.2) 02/03/19 05:50 Differential Comment Rbc morph reviewed 02/03/19 05:50 RBC Morphology See below 02/03/19 05:50 Polychromasia Present 02/03/19 05:50 Hypochromasia 1+ 02/03/19 05:50 Poikilocytosis 1+ 02/03/19 05:50 Basophilic Stippling Present 02/03/19 05:50 Macrocytosis 1+ 02/03/19 05:50 PT 11.6 sec (9.3-11.0) H 02/02/19 17:57 INR 1.2 (0.9-1.1) H 02/02/19 17:57 APTT 27.0 sec (21.0-31.4) 02/02/19 17:57 Sodium 135 mmol/L (136-145) L 02/03/19 05:50 Potassium 4.0 mmol/L (3.5-5.1) 02/03/19 05:50 Chloride 101 mmol/L (98-107) 02/03/19 05:50 Carbon Dioxide 28.1 mmol/L (21.0-32.0) 02/03/19 05:50 Anion Gap 5.9 mmol/L (3-11) 02/03/19 05:50 BUN 37 mg/dL (7-18) H 02/03/19 05:50 Creatinine 1.76 mg/dL (0.55-1.02) H 02/03/19 05:50 Estimated GFR/1.73 m2 28.89 (mL/min/1.73m2) 02/03/19 05:50 Glucose 243 mg/dL (70-100) H 02/03/19 05:50 Lactate 1.6 mmol/l (0.6-1.4) H 02/03/19 14:08 Calcium 7.9 mg/dL (8.5-10.1) L 02/03/19 05:50 Magnesium 1.6 mg/dL (1.8-2.4) L 02/02/19 22:27 Total Bilirubin 0.8 mg/dL (0.2-1.0) 02/02/19 17:57 AST 11 U/L (15-37) L 02/02/19 17:57 ALT 29 U/L (12-78) 02/02/19 17:57 Alkaline Phosphatase 124 U/L (46-116) H 02/02/19 17:57 Troponin I 0.31 ng/mL (0.00-0.06) H* 02/03/19 14:08 NT-Pro-B Natriuret Pep 5104 pg/mL (-299) H 02/02/19 17:57 Total Protein 7.0 g/dL (6.4-8.2) 02/02/19 17:57 Albumin 2.8 g/dL (3.4-5.0) L 02/02/19 17:57 Procalcitonin 0.7 ng/mL 02/03/19 02:14 TSH 0.97 uIU/mL (0.358-3.74) 02/02/19 17:57 Urine Color Yellow (Yellow) 02/02/19 20:11 Urine Clarity Sl cloudy 02/02/19 20:11 Urine pH 5.5 (5-8) 02/02/19 20:11 Ur Specific [place] 1.015 (1.005-1.025) 02/02/19 20:11 Urine Protein 30 mg/dL (Negative) H 02/02/19 20:11 Urine Ketones Negative mg/dL (Negative) 02/02/19 20:11 Urine Blood Moderate (Negative) H 02/02/19 20:11 Urine Nitrite Negative (Negative) 02/02/19 20:11 Urine Bilirubin Negative (Negative) 02/02/19 20:11 Urine Urobilinogen 0.2 EU/dL (Up TO 0.2) 02/02/19 20:11 Ur Leukocyte Esterase Moderate (Negative) H 02/02/19 20:11 Urine RBC 10-20 (0-2) H 02/02/19 20:11 Urine WBC 10-20 HPF (0-5) 02/02/19 20:11 Ur Epithelial Cells Many HPF (Negative) 02/02/19 20:11 Urine Crystals Negative HPF (Negative) 02/02/19 20:11 Urine Bacteria Few HPF (Negative) 02/02/19 20:11 Urine Casts Negative LPF (Negative) 02/02/19 20:11 Urine Mucus Negative (Negative) 02/02/19 20:11 Urine Other (Negative) 02/02/19 20:11 Ur Culture Indicated? C&s done as ordered 02/02/19 20:11 Urine Glucose Negative mg/dL (Negative) 02/02/19 20:11
[2019-02-03] MEDS: Budesonide/Formoterol 160/4.5 6 GM 60 PUFF INH IH (21:20)
--- NOTE | 2019-02-03 23:27 | W.PM.PROGNOT ---
Date of Service Date of service: 02/03/19 Time of Service: 23:27 Assessment and Plan (1) Acute diastolic CHF (congestive heart failure): Current visit: Yes Status: Acute She appears to be volume overloaded at this point given her new rales and wheezes in setting of high CVP pressures and new B lines on her lung exam along w/ prominent RV and plethoric IVC. Her prior echo from 01/16/2019 demonstrated normal systolic LV function w/ LVEF 55-60% but with LVH of a moderate degree with no RWMA and normal RV size and function but with mild PHTN (PA systolic pressures of 35 to 40 mm). I have discontinued her maintenance iv fluids and given her a dose of iv lasix. I will see how she responds. She may need lasix drip overnight but I think that one or two doses of lasix should help then put her back on her home dose of lasix. (2) Atrial flutter: Current visit: Yes Status: Acute rate is much better controlled in the 70's. She remains on po lopressor 25 mg Q8hr. I have increased her frequency to 25 mg PO q6hr and reduced her diltiazem drip to 2.5 mg/hr. Hopefully she can come off the drip by tomorrow morning. She should be started on anticoagulation tomorrow for stroke prevention in setting of atrial flutter/atrial fibrillation Qualifiers: Atrial flutter type: typical Qualified Code(s): I48.3 - Typical atrial flutter (3) HCAP (healthcare-associated pneumonia): Current visit: Yes Status: Acute continue current broad spectrum antibiotics to provide coverage against Staph, Strep and gram negatives. Her initial blood culture is showing GPC in pairs. The other blood cultures is no growth. She remains on doxycycline, Vancomycin, and Zosyn. I have switched her doxy to oral to reduce her iv fluids in setting of her CHF Subjective Interval history since last seen: Patient w/ increased dyspnea and tachypnea and diaphoresis along w/ new wheezing tonght. CVP reading 21 to 25 cm even after it was re-leveled and zeroed. Exam Const General: cooperative, acute distress mild, anxious and diaphoretic Nutritional Appearance: overweight Orientation: alert, awake and oriented x3 Neck Neck: JVD Chest Chest: abnormal inspection of the chest (healing median sternotomy scars over anterior sternum) barrel chest Resp Effort & Inspection: no respiratory distress and tachypneic Auscultation: rales bilaterally and wheezes expiratory wheezes and scattered wheezes Cardio Jugular venous pressure: JVD elevated and to the level of the angle of the jaw Rate: regular rate Rhythm: abnormal rhythm regularly irregular Objective Objective Clinical Data: Abnormal lab results 02/03/19 02/03/19 02/03/19 Range/Units 02:14 05:50 05:50 WBC 17.51 H (4.4-10.8) k/cumm RBC 2.77 L (4.00-5.20) m/cumm Hgb 8.3 L (12.0-15.5) g/dL Hct 27.7 L (36.0-46.0) % MCV 100.0 H (80-95) fL MCHC 30.0 L (32.0-36.0) g/dL RDW 14.7 H (11.7-14.6) % Absolute Neutrophils 14.83 H (1.2-6.7) k/cumm Absolute Monocytes 1.00 H (0.11-0.7) k/cumm Sodium 135 L (136-145) mmol/L BUN 37 H (7-18) mg/dL Creatinine 1.76 H (0.55-1.02) mg/dL Glucose 243 H (70-100) mg/dL Lactate (0.6-1.4) mmol/l Calcium 7.9 L (8.5-10.1) mg/dL Troponin I 0.26 H* 0.31 H* (0.00-0.06) ng/mL 02/03/19 02/03/19 02/03/19 Range/Units 08:50 14:08 14:08 WBC (4.4-10.8) k/cumm RBC (4.00-5.20) m/cumm Hgb (12.0-15.5) g/dL Hct (36.0-46.0) % MCV (80-95) fL MCHC (32.0-36.0) g/dL RDW (11.7-14.6) % Absolute Neutrophils (1.2-6.7) k/cumm Absolute Monocytes (0.11-0.7) k/cumm Sodium (136-145) mmol/L BUN (7-18) mg/dL Creatinine (0.55-1.02) mg/dL Glucose (70-100) mg/dL Lactate 1.6 H (0.6-1.4) mmol/l Calcium (8.5-10.1) mg/dL Troponin I 0.33 H* 0.31 H* (0.00-0.06) ng/mL Vital Signs Temperature 36.3 C L 02/03/19 20:21 Temperature Source Temporal Artery Scan 02/03/19 15:30 Pulse 72 02/03/19 19:00 Pulse 85 02/03/19 19:50 Respiratory Rate 25 H 02/03/19 19:40 Respiratory Effort 02/03/19 20:21 Respiratory Depth Normal 02/03/19 20:21 Respiratory Pattern Normal 02/03/19 20:21 Blood Pressure 112/52 L 02/03/19 19:00 Blood Pressure Mean 66 02/03/19 19:00 Blood Pressure Position Supine 02/03/19 15:30 Pulse Oximetry 93 L 02/03/19 19:50 Oxygen Delivery Method Nasal Cannula 02/03/19 20:21 Oxygen Flow Rate 2 02/03/19 20:21 Pain Level 5 02/03/19 20:21 Intake & Output 02/02/19 02/03/19 02/03/19 23:59 11:59 23:59 Intake Total 1161.0 / 1161.0 715.667 / 970.042 254.375 / 970.042 Output Total 425 / 800 375 / 800 Balance 1161.0 / 1161.0 290.667 / 170.042 -120.625 / 170.042 Weight 128 kg 128 kg Intake: IV 1161.0 / 1161.0 235.667 / 250.042 14.375 / 250.042 Oral 480 / 720 240 / 720 Output: Urine 425 / 800 375 / 800 Other: Urine Color Light [place] Yellow Urine Appearance Clear Clear Urine Odor None Voiding Methods Bedside Commode Bedside Commode Laboratory Results WBC 17.51 k/cumm (4.4-10.8) H 02/03/19 05:50 RBC 2.77 m/cumm (4.00-5.20) L 02/03/19 05:50 Hgb 8.3 g/dL (12.0-15.5) L 02/03/19 05:50 Hct 27.7 % (36.0-46.0) L 02/03/19 05:50 MCV 100.0 fL (80-95) H 02/03/19 05:50 MCH 30.0 pg (27.0-33.0) 02/03/19 05:50 MCHC 30.0 g/dL (32.0-36.0) L 02/03/19 05:50 RDW 14.7 % (11.7-14.6) H 02/03/19 05:50 Plt Count 325 x1000/uL (130-400) 02/03/19 05:50 MPV 9.9 fL (8.0-11.0) 02/03/19 05:50 Immature Gran % 0.5 02/03/19 05:50 Neutrophils % 84.7 02/03/19 05:50 Lymphocytes % 7.1 02/03/19 05:50 Monocytes % 5.7 02/03/19 05:50 Eosinophils % 1.8 02/03/19 05:50 Basophils % 0.2 02/03/19 05:50 Absolute Neutrophils 14.83 k/cumm (1.2-6.7) H 02/03/19 05:50 Absolute Lymphocytes 1.24 k/cumm (1.2-3.4) 02/03/19 05:50 Absolute Monocytes 1.00 k/cumm (0.11-0.7) H 02/03/19 05:50 Absolute Eosinophils 0.32 k/cumm (0.0-0.7) 02/03/19 05:50 Absolute Basophils 0.04 k/cumm (0.0-0.2) 02/03/19 05:50 Differential Comment Rbc morph reviewed 02/03/19 05:50 RBC Morphology See below 02/03/19 05:50 Polychromasia Present 02/03/19 05:50 Hypochromasia 1+ 02/03/19 05:50 Poikilocytosis 1+ 02/03/19 05:50 Basophilic Stippling Present 02/03/19 05:50 Macrocytosis 1+ 02/03/19 05:50 PT 11.6 sec (9.3-11.0) H 02/02/19 17:57 INR 1.2 (0.9-1.1) H 02/02/19 17:57 APTT 27.0 sec (21.0-31.4) 02/02/19 17:57 Sodium 135 mmol/L (136-145) L 02/03/19 05:50 Potassium 4.0 mmol/L (3.5-5.1) 02/03/19 05:50 Chloride 101 mmol/L (98-107) 02/03/19 05:50 Carbon Dioxide 28.1 mmol/L (21.0-32.0) 02/03/19 05:50 Anion Gap 5.9 mmol/L (3-11) 02/03/19 05:50 BUN 37 mg/dL (7-18) H 02/03/19 05:50 Creatinine 1.76 mg/dL (0.55-1.02) H 02/03/19 05:50 Estimated GFR/1.73 m2 28.89 (mL/min/1.73m2) 02/03/19 05:50 Glucose 243 mg/dL (70-100) H 02/03/19 05:50 Lactate 1.6 mmol/l (0.6-1.4) H 02/03/19 14:08 Calcium 7.9 mg/dL (8.5-10.1) L 02/03/19 05:50 Magnesium 1.6 mg/dL (1.8-2.4) L 02/02/19 22:27 Total Bilirubin 0.8 mg/dL (0.2-1.0) 02/02/19 17:57 AST 11 U/L (15-37) L 02/02/19 17:57 ALT 29 U/L (12-78) 02/02/19 17:57 Alkaline Phosphatase 124 U/L (46-116) H 02/02/19 17:57 Troponin I 0.31 ng/mL (0.00-0.06) H* 02/03/19 14:08 NT-Pro-B Natriuret Pep 5104 pg/mL (-299) H 02/02/19 17:57 Total Protein 7.0 g/dL (6.4-8.2) 02/02/19 17:57 Albumin 2.8 g/dL (3.4-5.0) L 05/25/19 17:57 Procalcitonin 0.7 ng/mL 02/03/19 02:14 TSH 0.97 uIU/mL (0.358-3.74) 02/02/19 17:57 Urine Color Yellow (Yellow) 02/02/19 20:11 Urine Clarity Sl cloudy 02/02/19 20:11 Urine pH 5.5 (5-8) 02/02/19 20:11 Ur Specific [place] 1.015 (1.005-1.025) 02/02/19 20:11 Urine Protein 30 mg/dL (Negative) H 02/02/19 20:11 Urine Ketones Negative mg/dL (Negative) 02/02/19 20:11 Urine Blood Moderate (Negative) H 02/02/19 20:11 Urine Nitrite Negative (Negative) 02/02/19 20:11 Urine Bilirubin Negative (Negative) 02/02/19 20:11 Urine Urobilinogen 0.2 EU/dL (Up TO 0.2) 02/02/19 20:11 Ur Leukocyte Esterase Moderate (Negative) H 02/02/19 20:11 Urine RBC 10-20 (0-2) H 02/02/19 20:11 Urine WBC 10-20 HPF (0-5) 02/02/19 20:11 Ur Epithelial Cells Many HPF (Negative) 02/02/19 20:11 Urine Crystals Negative HPF (Negative) 02/02/19 20:11 Urine Bacteria Few HPF (Negative) 02/02/19 20:11 Urine Casts Negative LPF (Negative) 02/02/19 20:11 Urine Mucus Negative (Negative) 02/02/19 20:11 Urine Other (Negative) 02/02/19 20:11 Ur Culture Indicated? C&s done as ordered 02/02/19 20:11 Urine Glucose Negative mg/dL (Negative) 02/02/19 20:11 Reviewed Pertinent PMH: Yes Objective Narrative Objective Narrative: POCUS performed including lung/pleural exam and cardiac bedside echo; LV function is preserved but RV is dilated and IVC is plethoric; lungs reveal bilateral pleural effusions moderate in size and diffuse bilateral B lines in all lung chan
[2019-02-04] VITALS (81 sets, daily range): BP systolic 48–129; BP diastolic 16–87; PULSE 67–117; RESP 15–37; TEMP 36–36.8; O2SAT 92–99
[2019-02-04] MEDS: Furosemide 40 MG/4 ML VIAL IVP (00:21)
[2019-02-04] MEDS: Doxycycline Hyclate 100 MG CAP PO ×3 (01:00→20:53)
[2019-02-04] MEDS: Metoprolol 25 MG TAB PO ×4 (01:04→17:41)
[2019-02-04] MEDS: PIPERACILLIN/TAZO 3.375 GM in Normal Saline 50 ML IVPB ×3 (04:00→20:53)
[2019-02-04] MEDS: Normal Saline Flush 10 ML SYR IVP ×3 (06:51→21:12)
[2019-02-04] MEDS: Budesonide/Formoterol 160/4.5 6 GM 60 PUFF INH IH ×2 (07:39→20:52)
[2019-02-04 08:04] LABS: Abs Immature Grans 0.04 k/cumm (0.0-0.09); Absolute Eosinophil Count 0.41 k/cumm (0.0-0.7); Absolute Lymphocyte Count 0.93 k/cumm (1.2-3.4); Absolute Monocyte Count 0.93 k/cumm (0.11-0.7); Basophils % 0.2; Eosinophils % 3.2; HCT 26.9 % (36.0-46.0); Immature Grans % 0.3; Lymphocytes % 7.3; Mean Corp. HGB Concentration 29.7 g/dL (32.0-36.0); Mean Corpuscular Hemoglobin 29.7 pg (27.0-33.0); Mean Platelet Volume 10.2 fL (8.0-11.0); Monocytes % 7.3; Neutrophils % 81.7; Platelet Count 302 x1000/uL (130-400); RBC 2.69 m/cumm (4.00-5.20); RBC Distribution Width 14.8 % (11.7-14.6)
[2019-02-04] MEDS: dilTIAZem 125 MG in Normal Saline 100 ML IV (08:05)
[2019-02-04 08:07] LABS: Absolute Basophil Count 0.03 k/cumm (0.0-0.2); Absolute Neutrophil Count 10.46 k/cumm (1.2-6.7)
[2019-02-04 08:08] LABS: Anion Gap 8.2 mmol/L (3-11); BUN 40 mg/dL (7-18); CO2 27.8 mmol/L (21.0-32.0); CREATININE 2.03 mg/dL (0.55-1.02); Calcium 8.2 mg/dL (8.5-10.1); Chloride 104 mmol/L (98-107); Glucose 162 mg/dL (70-100); Magnesium 1.8 mg/dL (1.8-2.4); NT-proBNP 5237 pg/mL; Potassium 3.8 mmol/L (3.5-5.1); Sodium 140 mmol/L (136-145)
[2019-02-04 08:15] LABS: Troponin I 0.21 ng/mL (0.00-0.06)
[2019-02-04 08:18] LABS: Procalcitonin 0.4 ng/mL
[2019-02-04 08:52] LABS: Iron 8 ug/dL (50-175); Total Iron Binding Capacity 251 ug/dL (250-450); Transferrin Sat 3 % (15-50)
[2019-02-04] MEDS: Heparin 5,000 UNITS/ML VIAL 5000 UNITS SC ×2 (08:58→16:23)
[2019-02-04] MEDS: Mylanta Suspension 30 ML CUP PO ×2 (08:58→12:52)
[2019-02-04] MEDS: Calcium 600mg/Vit D 200U TAB 2 TAB PO ×2 (08:58→20:53)
[2019-02-04] MEDS: DULoxetine 30 MG CAP 60 MG PO (08:59)
[2019-02-04] MEDS: Omeprazole 20 MG CAPCR 40 MG PO (08:59)
[2019-02-04] MEDS: Atorvastatin 40 MG TAB PO (09:00)
[2019-02-04] MEDS: Allopurinol 100 MG TAB PO (09:00)
[2019-02-04] MEDS: Aspirin E.C. 81 MG TABEC PO (09:00)
[2019-02-04] MEDS: Folic Acid 1 MG TAB PO (09:00)
[2019-02-04] MEDS: Gabapentin 600 MG TAB PO ×3 (09:00→20:53)
[2019-02-04] MEDS: Cyanocobalamin 500 MCG TAB 1000 MCG PO (09:00)
[2019-02-04] MEDS: Insulin Aspart 300 UNITS/3 ML PEN SC ×4 (09:01→22:25)
[2019-02-04] MEDS: Furosemide 20 MG TAB PO (09:08)
[2019-02-04] MEDS: Ergocalciferol 50000 UNITS CAP PO (09:12)
[2019-02-04 09:20] LABS: Ferritin 171 ng/mL (8-388); Vitamin B12 1844 pg/mL (193-986)
[2019-02-04 09:24] LABS: Folate > 20.0 ng/mL (8.6-20.0)
--- NOTE | 2019-02-04 10:18 | PDOC.CMPRO ---
- If Service Date Differs Date of service: 02/04/19 Time of Service: 10:18 Care Management Progress Note S/O: Ann-Marie remains ICU level of care today, she was treated for fluid overload last evening with IV lasix and her IV fluids where discontinued. She continues to have aflutter plan to decrease the diltiazem drip and transition to oral medications to treat heart rate. Ann-Marie plans to return home, she understands that she may stay at [facility] for several days related to need for IV antibiotics. A: Ann-Marie is a 68 year old female admitted with Healthcare Acquired pneumonia with a history of multiple encounters with healthcare settings, COPD, recent CABG and DM. P: Ann-Marie will plan to discharged home when medically ready per provider. She will have resumption of home health services nursing, PT and OT upon discharge. She will be staying with her daughter December at time of discharge and her family will transport her home.
--- NOTE | 2019-02-04 10:24 | CMPROGNOTE_ITS ---
- If Service Date Differs Date of service: 02/04/19 Time of Service: 10:18 Care Management Progress Note S/O: Ann-Marie remains ICU level of care today, she was treated for fluid overload last evening with IV lasix and her IV fluids where discontinued. She continues to have aflutter plan to decrease the diltiazem drip and transition to oral medications to treat heart rate. Ann-Marie plans to return home, she understands that she may stay at [facility] for several days related to need for IV antibiotics. A: Ann-Marie is a 68 year old female admitted with Healthcare Acquired pneumonia with a history of multiple encounters with healthcare settings, COPD, recent CABG and DM. P: Ann-Marie will plan to discharged home when medically ready per provider. She will have resumption of home health services nursing, PT and OT upon discharge. She will be staying with her daughter December at time of discharge and her family will transport her home.
[2019-02-04 12:32] LABS: Lactate-non-spesis 0.9 mmol/l (0.6-1.4)
--- NOTE | 2019-02-04 12:57 | PGE_ITS ---
Date of Service Date of service: 02/04/19 Time of Service: 12:55 Assessment and Plan (1) HCAP (healthcare-associated pneumonia): Current visit: Yes Status: Acute Likely on the basis of incomplete treatment of prior infection, now with bibasilar infiltrates, leukocytosis, and hypoxia concerning for infection. Currently on Vancomycin, Pip-Tazo, and Doxycycline day #2. Sputum Culture with normal aurora, and one set of blood cultures with growth of a Gram + Cocci in pairs on Gram stain - thought potentially due to contamination with cultures showing no growth. Also with concurrent UTI but , with Urine Cultures showing only 10-50,000 of mixed gram positive aurora, thought possible contaminant. (2) UTI (urinary tract infection): Current visit: Yes Status: Acute On antibiotics as above. Culture with potential contaminent. (3) CKD (chronic kidney disease) stage 3, GFR 30-59 ml/min: Current visit: No Status: Chronic Creatinine at baseline, with gentle IVFs given contrast administration at time of admission. Monitor for signs of fluid overload. (4) Atrial flutter: Current visit: Yes Status: Acute History of PAF, not on anticoagulation following excision of the PINEDA at the time of her CABG. Currently with rapid rate requiring initiation of both BB and Cardizem gtt. Rapid Atrial Flutter occured in the setting of acute infection and hypoxia. Continue to wean Cardizem as able. Also on standing oral BB, uptitrated, and IV BB on a prn basis. HR appears well-controlled. Trended troponins as below. Continue to replete electrolytes, treat infection and hypoxia, and monitor on telemetry. Qualifiers: Atrial flutter type: typical Qualified Code(s): I48.3 - Typical atrial flutter (5) CAD (coronary artery disease): Current visit: Yes Status: Chronic S/p CABG in December - patient with minimal, equivocal elevation in troponin in setting of infection, rapid atrial flutter, and poor renal clearance. Likely demand ischemia. Troponin downtrended this morning. ECG is non-ischemic (TW Inversions laterally appear to be chronic) and patient is asymptomatic. Continue BB, ASA, high potency statin. (6) S/P CABG (coronary artery bypass graft): Current visit: No Status: Chronic (7) Diabetes mellitus: Current visit: No Status: Chronic Currently on Victoza. Also on ISS. Qualifiers: Diabetes mellitus type: type 2 Diabetes mellitus ferry terminal agent insulin use: without ferry terminal agent use Diabetes mellitus complication status: with kidney complications Diabetes mellitus complication detail: with chronic kidney disease (8) Hyperlipidemia: Current visit: No Status: Chronic Continue Atorvastatin. (9) Essential hypertension: Current visit: No Status: Chronic Currently on BB as above. (10) DVT prophylaxis: Current visit: Yes Status: Acute SC Heparin. (11) Advance directive on file: Current visit: Yes Status: Acute Full Code. Subjective Interval history since last seen: 68 year old woman with a history of recent hospitalizations and treatment for Pneumonia, admitted 02/02 from [facility] Emergency Department with a diagnosis of Pneumonia. Mrs. Griggs has a Past Medical History significant for CKD, Obesity, DM, COPD, depression, gout, RLS, and spinal stenosis. She also had known CAD, s/p 3 vessel CABG at [facility] [place] in December of 2018 following an NSTEMI. She also has a prior history of PAF, for which she underwent excision of her Left Atrial Appendage at the time of her CABG, and now remains off anticoagulation. Following her surgery the patient was discharged to [facility], prior to being admitted at [facility] with a diagnosis of Healthcare Aquired Pneumonia between 01/15 and 01/22/2019. She was treated with Vancomycin for 3 days, discontinued due to a negative MRSA Swab, as well as Pip-Tazo for 7 days. She was discharged home on a tapering dose of prednisone. She presented back to the ED with complaints of left sided pleuritic CP and dyspnea. She was found to be in Atrial Flutter with a rapid rate and hypoxic, with subsequent CTA of the chest showing evidence of bibasilar infiltrates without evidence of a PE. Work-up showed evidence of an elevated lactate, leukocytosis, as well as a potential UTI by urinalysis. She also had a mild and equivocal elevation in troponin. At that time the patient was referred for admission for further evaluation and treatment. Overnight Mrs Griggs experienced worsening dyspnea, felt likely due to volume overload - feels improved following diuresis. Her HR is well-controlled but she remains on Cardizem gtt. No other overnight events reported. She remains afebrile. Exam Narrative Exam Narrative: General: Patient appears comfortable, AAOX3, NAD Skin: Midline Sternotomy scar appears well healing Neck: Supple CV: Regular, nontachycardic, S1S2, No murmur. In atrial flutter by monitor. Pulmonary: Bibasilar crackles, No wheezing or rhonchi Abdomen: + Bowel Sounds, soft, nontender, nondistended Vascular: Mild b/l lower extremity edema Psych: Normal mood and affect. Objective Objective Clinical Data: Abnormal lab results 02/03/19 02/03/19 02/04/19 Range/Units 14:08 14:08 07:15 WBC (4.4-10.8) k/cumm RBC (4.00-5.20) m/cumm Hgb (12.0-15.5) g/dL Hct (36.0-46.0) % MCV (80-95) fL MCHC (32.0-36.0) g/dL RDW (11.7-14.6) % Absolute Neutrophils (1.2-6.7) k/cumm Absolute Lymphocytes (1.2-3.4) k/cumm Absolute Monocytes (0.11-0.7) k/cumm BUN 40 H (7-18) mg/dL Creatinine 2.03 H (0.55-1.02) mg/dL Glucose 162 H D (70-100) mg/dL Lactate 1.6 H (0.6-1.4) mmol/l Calcium 8.2 L (8.5-10.1) mg/dL Iron (50-175) ug/dL Transferrin % Sat (15-50) % Troponin I 0.31 H* 0.21 H* (0.00-0.06) ng/mL NT-Pro-B Natriuret Pep 5237 H ( - 299) pg/mL Vitamin B12 1844 H (193-986) pg/mL Folate > 20.0 H (8.6-20.0) ng/mL 02/04/19 02/04/19 Range/Units 07:15 07:15 WBC 12.80 H (4.4-10.8) k/cumm RBC 2.69 L (4.00-5.20) m/cumm Hgb 8.0 L (12.0-15.5) g/dL Hct 26.9 L (36.0-46.0) % MCV 100.0 H (80-95) fL MCHC 29.7 L (32.0-36.0) g/dL RDW 14.8 H (11.7-14.6) % Absolute Neutrophils 10.46 H (1.2-6.7) k/cumm Absolute Lymphocytes 0.93 L (1.2-3.4) k/cumm Absolute Monocytes 0.93 H (0.11-0.7) k/cumm BUN (7-18) mg/dL Creatinine (0.55-1.02) mg/dL Glucose (70-100) mg/dL Lactate (0.6-1.4) mmol/l Calcium (8.5-10.1) mg/dL Iron 8 L (50-175) ug/dL Transferrin % Sat 3 L (15-50) % Troponin I (0.00-0.06) ng/mL NT-Pro-B Natriuret Pep ( - 299) pg/mL Vitamin B12 (193-986) pg/mL Folate (8.6-20.0) ng/mL Vital Signs Temperature 36.6 C 02/04/19 08:23 Temperature Source Temporal Artery Scan 02/04/19 08:23 Pulse 97 H 02/04/19 08:23 Pulse 85 02/04/19 01:30 Respiratory Rate 16 02/04/19 08:23 Respiratory Effort 02/04/19 08:23 Respiratory Depth Normal 02/04/19 08:23 Respiratory Pattern Normal 02/04/19 08:23 Blood Pressure 97/51 L 02/04/19 08:23 Blood Pressure Mean 66 02/04/19 08:23 Blood Pressure Position Left Lateral 02/04/19 08:23 Pulse Oximetry 94 L 02/04/19 08:23 Oxygen Delivery Method Nasal Cannula 02/04/19 08:23 Oxygen Flow Rate 2 02/04/19 08:23 Pain Level 7 02/04/19 08:23 Intake & Output 02/03/19 02/04/19 02/04/19 23:59 11:59 23:59 Intake Total 454.375 / 7843.280 7673 / 1700 Output Total 500 / 925 1450 / 1450 Balance -45.625 / 245.042 250 / 250 Weight 129.9 kg Intake: IV 214.375 / 678.297 3639 / 1100 Oral 240 / 720 600 / 600 Output: Urine 500 / 925 1450 / 1450 Other: Urine Color Yellow Pale Yellow Urine Appearance Clear Clear Urine Odor None Comment gonzalez in place because of IV lasix last night 02/04/19. Voiding Methods Bedside Commode Laboratory Results WBC 12.80 k/cumm (4.4-10.8) H 02/04/19 07:15 RBC 2.69 m/cumm (4.00-5.20) L 02/04/19 07:15 Hgb 8.0 g/dL (12.0-15.5) L 02/04/19 07:15 Hct 26.9 % (36.0-46.0) L 02/04/19 07:15 MCV 100.0 fL (80-95) H 02/04/19 07:15 MCH 29.7 pg (27.0-33.0) 02/04/19 07:15 MCHC 29.7 g/dL (32.0-36.0) L 02/04/19 07:15 RDW 14.8 % (11.7-14.6) H 02/04/19 07:15 Plt Count 302 x1000/uL (130-400) 02/04/19 07:15 MPV 10.2 fL (8.0-11.0) 02/04/19 07:15 Immature Gran % 0.3 02/04/19 07:15 Neutrophils % 81.7 02/04/19 07:15 Lymphocytes % 7.3 02/04/19 07:15 Monocytes % 7.3 02/04/19 07:15 Eosinophils % 3.2 02/04/19 07:15 Basophils % 0.2 02/04/19 07:15 Absolute Neutrophils 10.46 k/cumm (1.2-6.7) H 02/04/19 07:15 Absolute Lymphocytes 0.93 k/cumm (1.2-3.4) L 02/04/19 07:15 Absolute Monocytes 0.93 k/cumm (0.11-0.7) H 02/04/19 07:15 Absolute Eosinophils 0.41 k/cumm (0.0-0.7) 02/04/19 07:15 Absolute Basophils 0.03 k/cumm (0.0-0.2) 02/04/19 07:15 Differential Comment Rbc morph reviewed 02/03/19 05:50 RBC Morphology See below 02/03/19 05:50 Polychromasia Present 02/03/19 05:50 Hypochromasia 1+ 02/03/19 05:50 Poikilocytosis 1+ 02/03/19 05:50 Basophilic Stippling Present 02/03/19 05:50 Macrocytosis 1+ 02/03/19 05:50 PT 11.6 sec (9.3-11.0) H 02/02/19 17:57 INR 1.2 (0.9-1.1) H 02/02/19 17:57 APTT 27.0 sec (21.0-31.4) 02/02/19 17:57 Sodium 140 mmol/L (136-145) 02/04/19 07:15 Potassium 3.8 mmol/L (3.5-5.1) 02/04/19 07:15 Chloride 104 mmol/L (98-107) 02/04/19 07:15 Carbon Dioxide 27.8 mmol/L (21.0-32.0) 02/04/19 07:15 Anion Gap 8.2 mmol/L (3-11) 02/04/19 07:15 BUN 40 mg/dL (7-18) H 02/04/19 07:15 Creatinine 2.03 mg/dL (0.55-1.02) H 02/04/19 07:15 Estimated GFR/1.73 m2 24.50 (mL/min/1.73m2) 02/04/19 07:15 Glucose 162 mg/dL (70-100) H D 02/04/19 07:15 Lactate 0.9 mmol/l (0.6-1.4) 02/04/19 12:25 Calcium 8.2 mg/dL (8.5-10.1) L 02/04/19 07:15 Magnesium 1.8 mg/dL (1.8-2.4) 02/04/19 07:15 Iron 8 ug/dL (50-175) L 02/04/19 07:15 TIBC 251 ug/dL (250-450) 02/04/19 07:15 Transferrin % Sat 3 % (15-50) L 02/04/19 07:15 Ferritin 171 ng/mL (8-388) 02/04/19 07:15 Total Bilirubin 0.8 mg/dL (0.2-1.0) 02/02/19 17:57 AST 11 U/L (15-37) L 02/02/19 17:57 ALT 29 U/L (12-78) 02/02/19 17:57 Alkaline Phosphatase 124 U/L (46-116) H 02/02/19 17:57 Troponin I 0.21 ng/mL (0.00-0.06) H* 02/04/19 07:15 NT-Pro-B Natriuret Pep 5237 pg/mL (-299) H 02/04/19 07:15 Total Protein 7.0 g/dL (6.4-8.2) 02/02/19 17:57 Albumin 2.8 g/dL (3.4-5.0) L 02/02/19 17:57 Vitamin B12 1844 pg/mL (193-986) H 02/04/19 07:15 Folate > 20.0 ng/mL (8.6-20.0) H 02/04/19 07:15 Procalcitonin 0.4 ng/mL 02/04/19 07:15 TSH 0.97 uIU/mL (0.358-3.74) 02/02/19 17:57 Urine Color Yellow (Yellow) 02/02/19 20:11 Urine Clarity Sl cloudy 02/02/19 20:11 Urine pH 5.5 (5-8) 02/02/19 20:11 Ur Specific [place] 1.015 (1.005-1.025) 02/02/19 20:11 Urine Protein 30 mg/dL (Negative) H 02/02/19 20:11 Urine Ketones Negative mg/dL (Negative) 02/02/19 20:11 Urine Blood Moderate (Negative) H 02/02/19 20:11 Urine Nitrite Negative (Negative) 02/02/19 20:11 Urine Bilirubin Negative (Negative) 02/02/19 20:11 Urine Urobilinogen 0.2 EU/dL (Up TO 0.2) 02/02/19 20:11 Ur Leukocyte Esterase Moderate (Negative) H 02/02/19 20:11 Urine RBC 10-20 (0-2) H 02/02/19 20:11 Urine WBC 10-20 HPF (0-5) 02/02/19 20:11 Ur Epithelial Cells Many HPF (Negative) 02/02/19 20:11 Urine Crystals Negative HPF (Negative) 02/02/19 20:11 Urine Bacteria Few HPF (Negative) 02/02/19 20:11 Urine Casts Negative LPF (Negative) 02/02/19 20:11 Urine Mucus Negative (Negative) 02/02/19 20:11 Urine Other (Negative) 02/02/19 20:11 Ur Culture Indicated? C&s done as ordered 02/02/19 20:11 Urine Glucose Negative mg/dL (Negative) 02/02/19 20:11
[2019-02-04] MEDS: Levalbuterol 1.25 MG/3 ML UPD VIAL UPD (15:34)
[2019-02-04 18:13] LABS: Troponin I 0.18 ng/mL (0.00-0.06)
[2019-02-04 21:57] LABS: Troponin I 0.16 ng/mL (0.00-0.06)
[2019-02-04] MEDS: rOPINIRole 0.5 MG TAB 2 MG PO (22:24)
[2019-02-05] VITALS (117 sets, daily range): BP systolic 86–138; BP diastolic 51–92; PULSE 76–141; RESP 20–48; TEMP 36.1–36.8; O2SAT 87–100
[2019-02-05] MEDS: Heparin 5,000 UNITS/ML VIAL 5000 UNITS SC (00:04)
[2019-02-05] MEDS: PIPERACILLIN/TAZO 3.375 GM in Normal Saline 50 ML IVPB ×3 (03:56→21:06)
[2019-02-05] MEDS: Metoprolol 25 MG TAB PO (04:05)
[2019-02-05] MEDS: Normal Saline Flush 10 ML SYR IVP ×3 (04:12→10:34)
[2019-02-05 07:03] LABS: Abs Immature Grans 0.02 k/cumm (0.0-0.09); Absolute Basophil Count 0.02 k/cumm (0.0-0.2); Absolute Eosinophil Count 0.39 k/cumm (0.0-0.7); Absolute Monocyte Count 0.87 k/cumm (0.11-0.7); Absolute Neutrophil Count 7.32 k/cumm (1.2-6.7); Basophils % 0.2; HCT 25.5 % (36.0-46.0); HGB 7.4 g/dL (12.0-15.5); Immature Grans % 0.2; Lymphocytes % 11.3; Mean Corpuscular Hemoglobin 29.2 pg (27.0-33.0); Mean Corpuscular Volume 100.8 fL (80-95); Mean Platelet Volume 9.8 fL (8.0-11.0); Neutrophils % 75.3; Platelet Count 292 x1000/uL (130-400); RBC 2.53 m/cumm (4.00-5.20); RBC Distribution Width 14.8 % (11.7-14.6); White Blood Cell Count 9.72 k/cumm (4.4-10.8)
[2019-02-05 07:18] LABS: Anion Gap 8.4 mmol/L (3-11); BUN 26 mg/dL (7-18); CO2 23.6 mmol/L (21.0-32.0); CREATININE 1.24 mg/dL (0.55-1.02); Calcium 6.7 mg/dL (8.5-10.1); Chloride 111 mmol/L (98-107); Estimated GFR 43.28 (mL/min/1.73m2); Glucose 126 mg/dL (70-100); Magnesium 1.4 mg/dL (1.8-2.4); Potassium 3.2 mmol/L (3.5-5.1); Sodium 143 mmol/L (136-145)
[2019-02-05] MEDS: Budesonide/Formoterol 160/4.5 6 GM 60 PUFF INH IH ×2 (07:28→21:28)
[2019-02-05] MEDS: MAGNESIUM SULFATE 4 GM/100 ML BAG IVPB (08:48)
[2019-02-05] MEDS: Potassium Chloride 20 MEQ TABCR 40 MEQ PO ×2 (08:48→16:41)
[2019-02-05] MEDS: Calcium 600mg/Vit D 200U TAB 2 TAB PO ×2 (08:49→20:42)
[2019-02-05] MEDS: Doxycycline Hyclate 100 MG CAP PO ×2 (08:49→21:27)
[2019-02-05] MEDS: Allopurinol 100 MG TAB PO (08:50)
[2019-02-05] MEDS: Aspirin E.C. 81 MG TABEC PO (08:50)
[2019-02-05] MEDS: Folic Acid 1 MG TAB PO (08:50)
[2019-02-05] MEDS: Atorvastatin 40 MG TAB PO (08:50)
[2019-02-05] MEDS: Gabapentin 600 MG TAB PO ×3 (08:50→20:42)
[2019-02-05] MEDS: Cyanocobalamin 500 MCG TAB 1000 MCG PO (08:50)
[2019-02-05] MEDS: DULoxetine 30 MG CAP 60 MG PO (08:50)
[2019-02-05] MEDS: Insulin Aspart 300 UNITS/3 ML PEN SC ×4 (08:51→22:59)
[2019-02-05] MEDS: Sucralfate 1 GM TAB PO ×3 (09:01→16:41)
--- NOTE | 2019-02-05 09:37 | ROE_ITS ---
DATE OF PROCEDURE: February 03, 2019 PREOPERATIVE DIAGNOSIS: Status post CABG in December 2018/hospital-acquired pneumonia/urinary sepsis/ne ed for central venous access. POSTOPERATIVE DIAGNOSIS: Same. PROCEDURE: Insertion of left subclavian central line. SURGEON: Cheri Carreon D.O. ANESTHESIA: Local. ESTIMATED BLOOD LOSS: < 5 cc's CONDITION: The patient tolerated the procedure well without complication and remained in the ICU thr oughout the entirety of the procedure. INDICATION FOR PROCEDURE: Ms. Griggs is a 68-year-old female seen at the request of Dr. Caban regarding central venous access. She recently had a CABG and she has no peripheral access. She is i n acute AFib and community-acquired pneumonia and needs central access for her IV medications. Infor med consent obtained explaining risks and benefits of the procedure including but not limited to blee ding, infection, pneumonia, blood clots, damage to vein, artery, nerves, thrombosis, catheter-related infections and pneumothorax. Patient does consent. PROCEDURE DESCRIPTION: The area is prepped and draped in the usual sterile fashion using a ChloraPre p scrub solution. We can't give her IV medication for the sedation because she doesn't have an IV. A time-out is performed. The catheter infection prevention check list is followed. 20 cc's of 1% L idocaine plain is used to anesthetize in the area of the left subclavian vein. The patient is placed in steep Trendelenburg. The Cook needle is placed in the left subclavian vein. Dark red, non-puls atile blood flow is aspirated. A guidewire is inserted through the needle and the needle is removed. The dilator is inserted over the needle to control the guidewire at all times. The dilator is then removed. The previously flushed catheter is inserted over the wire to the 20 gene. The wire is rem elvie. The catheter is then sewn in place. It is flushed with saline. Dark red, non-pulsatile bloo d is aspirated through all the ports and then flushed with saline. Sterile compression dressing is a pplied. Portable chest x-ray shows good position and no pneumothorax. The patient tolerated the pro cedure well without complication and remained in the ICU throughout the entire procedure. She tolera jeyson it well without problems.
[2019-02-05] MEDS: Furosemide 20 MG/2 ML VIAL IVP ×2 (10:32→16:40)
--- NOTE | 2019-02-05 11:28 | PGE_ITS ---
Date of Service Date of service: 02/05/19 Time of Service: 11:10 Assessment and Plan (1) HCAP (healthcare-associated pneumonia): Current visit: Yes Status: Acute Likely on the basis of incomplete treatment of prior infection, now with bibasilar infiltrates, leukocytosis, and hypoxia concerning for infection. Currently on Vancomycin, Pip-Tazo, and Doxycycline day #3. Sputum Culture with normal aurora and Phoebe, and one set of blood cultures with growth of a Gram + Cocci in pairs on Gram stain - thought potentially due to contamination with cultures showing no growth. Also with concurrent UTI but with Urine Cultures showing only 10-50,000 of mixed gram positive aurora, thought possible contaminant as well. Current continued dyspnea may be on basis of volume overload. Will attempt diuresis. (2) UTI (urinary tract infection): Current visit: Yes Status: Acute On antibiotics as above. Culture with potential contaminent. (3) CKD (chronic kidney disease) stage 3, GFR 30-59 ml/min: Current visit: No Status: Chronic Creatinine at baseline, with gentle IVFs given due to contrast administration at time of admission. Currently fluid overloaded clinically - undergoing diuresis as above. (4) Atrial flutter: Current visit: Yes Status: Acute History of PAF, not on anticoagulation following excision of the PINEDA at the time of her CABG. Currently with mildly rapid rates but off cardizem gtt - continue to titrate oral BB with IV Lopressor prn. Rapid Atrial Flutter occured in the setting of acute infection and hypoxia. Continue to replete electrolytes, treat infection and hypoxia, and monitor on telemetry. Qualifiers: Atrial flutter type: typical Qualified Code(s): I48.3 - Typical atrial flutter (5) CAD (coronary artery disease): Current visit: Yes Status: Chronic S/p CABG in December - patient with minimal, equivocal elevation in troponin in setting of infection, rapid atrial flutter, and poor renal clearance. Likely demand ischemia. Troponin continued to downtrend, ECG is non-ischemic (TW Inversions laterally appear to be chronic) and patient is asymptomatic. Continue BB, ASA, high potency statin. Patient's GERD like symptoms did not relieve with NTG, but have abated with addition of PPI and TUMS. Hemoglobin has dropped as well - will change to BID IV PPI, and add carafate, with repeat H/H this afternoon. (6) S/P CABG (coronary artery bypass graft): Current visit: No Status: Chronic (7) Diabetes mellitus: Current visit: No Status: Chronic Currently on Victoza. Also on ISS. Qualifiers: Diabetes mellitus type: type 2 Diabetes mellitus fdc insulin use: without long term care pharmacist use Diabetes mellitus complication status: with kidney complications Diabetes mellitus complication detail: with chronic kidney disease (8) Hyperlipidemia: Current visit: No Status: Chronic Continue Atorvastatin. (9) Essential hypertension: Current visit: No Status: Chronic Currently on BB as above. (10) DVT prophylaxis: Current visit: Yes Status: Acute SC Heparin on hold given patient's prior complaints of GERD and drop in Hg. Continue SCDs, TEDs. (11) Advance directive on file: Current visit: Yes Status: Acute Full Code. Subjective Interval history since last seen: 68 year old woman with a history of recent hospitalizations and treatment for Pneumonia, admitted 02/02 from [facility] Emergency Department with a diagnosis of Pneumonia. Mrs. Griggs has a Past Medical History significant for CKD, Obesity, DM, COPD, depression, gout, RLS, and spinal stenosis. She also had known CAD, s/p 3 vessel CABG at [facility] in December of 2018 following an NSTEMI. She also has a prior history of PAF, for which she underwent excision of her Left Atrial Appendage at the time of her CABG, and now remains off anticoagulation. Following her surgery the patient was discharged to [facility], prior to being admitted at [facility] with a diagnosis of Healthcare Aquired Pneumonia between 01/15 and 01/22/2019. She was treated with Vancomycin for 3 days, discontinued due to a negative MRSA Swab, as well as Pip-Tazo for 7 days. She was discharged home on a tapering dose of prednisone. She presented back to the ED with complaints of left sided pleuritic CP and dyspnea. She was found to be in Atrial Flutter with a rapid rate and hypoxic, with subsequent CTA of the chest showing evidence of bibasilar infiltrates without evidence of a PE. Work-up showed evidence of an elevated lactate, leukocytosis, as well as a potential UTI by urinalysis. She also had a mild and equivocal elevation in troponin. At that time the patient was referred for admission for further evaluation and treatment. Since admission Mrs Griggs's breathing initially improved, then worsened again, and her CVP was elevated a 24. She has received diuretic therapy with some improvement. Her HR is slightly elevated, but she has been off Cardizem gtt. Yesterday she was complaining of significant heart burn type symptoms, which was her anginal equivalent. Repeat ECG remained unchanged from her prior, repeat troponins continued to downtrend, and NTG did not take away her burning sensation. This morning she reports resolution of her symptoms with addition of Tums. Morning H/H has dropped. No other overnight events reported. She remains afebrile. Exam Narrative Exam Narrative: General: Patient appears comfortable, AAOX3, NAD Skin: Midline Sternotomy scar appears well healing Neck: Supple CV: Regular, mildly tachycardic, S1S2, No murmur. In atrial flutter by monitor. Pulmonary: Bibasilar crackles, No wheezing or rhonchi Abdomen: + Bowel Sounds, soft, nontender, nondistended Vascular: 1+ b/l lower extremity edema Psych: Normal mood and affect. Objective Objective Clinical Data: Abnormal lab results 02/04/19 02/04/19 02/05/19 Range/Units 17:10 21:10 06:30 RBC (4.00-5.20) m/cumm Hgb (12.0-15.5) g/dL Hct (36.0-46.0) % MCV (80-95) fL MCHC (32.0-36.0) g/dL RDW (11.7-14.6) % Absolute Neutrophils (1.2-6.7) k/cumm Absolute Lymphocytes (1.2-3.4) k/cumm Absolute Monocytes (0.11-0.7) k/cumm Potassium 3.2 L (3.5-5.1) mmol/L Chloride 111 H (98-107) mmol/L BUN 26 H D (7-18) mg/dL Creatinine 1.24 H D (0.55-1.02) mg/dL Glucose 126 H (70-100) mg/dL Calcium 6.7 L (8.5-10.1) mg/dL Magnesium 1.4 L (1.8-2.4) mg/dL Troponin I 0.18 H* 0.16 H* (0.00-0.06) ng/mL 02/05/19 Range/Units 06:30 RBC 2.53 L (4.00-5.20) m/cumm Hgb 7.4 L (12.0-15.5) g/dL Hct 25.5 L (36.0-46.0) % MCV 100.8 H (80-95) fL MCHC 29.0 L (32.0-36.0) g/dL RDW 14.8 H (11.7-14.6) % Absolute Neutrophils 7.32 H (1.2-6.7) k/cumm Absolute Lymphocytes 1.10 L (1.2-3.4) k/cumm Absolute Monocytes 0.87 H (0.11-0.7) k/cumm Potassium (3.5-5.1) mmol/L Chloride (98-107) mmol/L BUN (7-18) mg/dL Creatinine (0.55-1.02) mg/dL Glucose (70-100) mg/dL Calcium (8.5-10.1) mg/dL Magnesium (1.8-2.4) mg/dL Troponin I (0.00-0.06) ng/mL Vital Signs Temperature 36.5 C 02/05/19 08:06 Temperature Source Temporal Artery Scan 02/05/19 08:06 Pulse 108 H 02/05/19 10:30 Pulse 122 H 02/05/19 10:31 Respiratory Rate 20 02/05/19 10:31 Respiratory Effort 02/05/19 08:06 Respiratory Depth Normal 02/05/19 08:06 Respiratory Pattern Normal 02/05/19 08:06 Blood Pressure 117/85 02/05/19 10:30 Blood Pressure Mean 92 02/05/19 10:30 Blood Pressure Position Supine 02/05/19 04:00 Pulse Oximetry 97 02/05/19 10:31 Oxygen Delivery Method Room Air 02/05/19 07:25 Oxygen Flow Rate 0 02/05/19 07:25 Pain Level 9 02/05/19 08:06 Intake & Output 02/04/19 02/04/19 02/05/19 11:59 23:59 11:59 Intake Total 1700 / 2231.459 531.459 / 2231.459 540 / 540 Output Total 1450 / 1800 350 / 1800 700 / 700 Balance 250 / 431.459 181.459 / 431.459 -160 / -160 Weight 129.9 kg 131.4 kg Intake: IV 1100 / 1381.459 281.459 / 1381.459 300 / 300 Oral 600 / 850 250 / 850 240 / 240 Output: Urine 1450 / 1800 350 / 1800 700 / 700 Other: Urine Color Pale Yellow Yellow Yellow Urine Appearance Clear Clear Clear Comment gonzalez in place because of IV lasix last night 02/04/19. gonzalez in place at this time. Clear yellow urine. Gonzalez in place Laboratory Results WBC 9.72 k/cumm (4.4-10.8) 02/05/19 06:30 RBC 2.53 m/cumm (4.00-5.20) L 02/05/19 06:30 Hgb 7.4 g/dL (12.0-15.5) L 02/05/19 06:30 Hct 25.5 % (36.0-46.0) L 02/05/19 06:30 MCV 100.8 fL (80-95) H 02/05/19 06:30 MCH 29.2 pg (27.0-33.0) 02/05/19 06:30 MCHC 29.0 g/dL (32.0-36.0) L 02/05/19 06:30 RDW 14.8 % (11.7-14.6) H 02/05/19 06:30 Plt Count 292 x1000/uL (130-400) 02/05/19 06:30 MPV 9.8 fL (8.0-11.0) 02/05/19 06:30 Immature Gran % 0.2 02/05/19 06:30 Neutrophils % 75.3 02/05/19 06:30 Lymphocytes % 11.3 02/05/19 06:30 Monocytes % 9.0 02/05/19 06:30 Eosinophils % 4.0 02/05/19 06:30 Basophils % 0.2 02/05/19 06:30 Absolute Neutrophils 7.32 k/cumm (1.2-6.7) H 02/05/19 06:30 Absolute Lymphocytes 1.10 k/cumm (1.2-3.4) L 02/05/19 06:30 Absolute Monocytes 0.87 k/cumm (0.11-0.7) H 02/05/19 06:30 Absolute Eosinophils 0.39 k/cumm (0.0-0.7) 02/05/19 06:30 Absolute Basophils 0.02 k/cumm (0.0-0.2) 02/05/19 06:30 Differential Comment Rbc morph reviewed 02/03/19 05:50 RBC Morphology See below 02/03/19 05:50 Polychromasia Present 02/03/19 05:50 Hypochromasia 1+ 02/03/19 05:50 Poikilocytosis 1+ 02/03/19 05:50 Basophilic Stippling Present 02/03/19 05:50 Macrocytosis 1+ 02/03/19 05:50 PT 11.6 sec (9.3-11.0) H 02/02/19 17:57 INR 1.2 (0.9-1.1) H 02/02/19 17:57 APTT 27.0 sec (21.0-31.4) 02/02/19 17:57 Sodium 143 mmol/L (136-145) 02/05/19 06:30 Potassium 3.2 mmol/L (3.5-5.1) L 02/05/19 06:30 Chloride 111 mmol/L (98-107) H 02/05/19 06:30 Carbon Dioxide 23.6 mmol/L (21.0-32.0) 02/05/19 06:30 Anion Gap 8.4 mmol/L (3-11) 02/05/19 06:30 BUN 26 mg/dL (7-18) H D 02/05/19 06:30 Creatinine 1.24 mg/dL (0.55-1.02) H D 02/05/19 06:30 Estimated GFR/1.73 m2 43.28 (mL/min/1.73m2) 02/05/19 06:30 Glucose 126 mg/dL (70-100) H 02/05/19 06:30 Lactate 0.9 mmol/l (0.6-1.4) 02/04/19 12:25 Calcium 6.7 mg/dL (8.5-10.1) L 02/05/19 06:30 Magnesium 1.4 mg/dL (1.8-2.4) L 02/05/19 06:30 Iron 8 ug/dL (50-175) L 02/04/19 07:15 TIBC 251 ug/dL (250-450) 02/04/19 07:15 Transferrin % Sat 3 % (15-50) L 02/04/19 07:15 Ferritin 171 ng/mL (8-388) 02/04/19 07:15 Total Bilirubin 0.8 mg/dL (0.2-1.0) 02/02/19 17:57 AST 11 U/L (15-37) L 02/02/19 17:57 ALT 29 U/L (12-78) 02/02/19 17:57 Alkaline Phosphatase 124 U/L (46-116) H 02/02/19 17:57 Troponin I 0.16 ng/mL (0.00-0.06) H* 02/04/19 21:10 NT-Pro-B Natriuret Pep 5237 pg/mL (-299) H 02/04/19 07:15 Total Protein 7.0 g/dL (6.4-8.2) 02/02/19 17:57 Albumin 2.8 g/dL (3.4-5.0) L 02/02/19 17:57 Vitamin B12 1844 pg/mL (193-986) H 02/04/19 07:15 Folate > 20.0 ng/mL (8.6-20.0) H 02/04/19 07:15 Procalcitonin 0.4 ng/mL 02/04/19 07:15 TSH 0.97 uIU/mL (0.358-3.74) 02/02/19 17:57 Urine Color Yellow (Yellow) 02/02/19 20:11 Urine Clarity Sl cloudy 02/02/19 20:11 Urine pH 5.5 (5-8) 02/02/19 20:11 Ur Specific [place] 1.015 (1.005-1.025) 02/02/19 20:11 Urine Protein 30 mg/dL (Negative) H 02/02/19 20:11 Urine Ketones Negative mg/dL (Negative) 02/02/19 20:11 Urine Blood Moderate (Negative) H 02/02/19 20:11 Urine Nitrite Negative (Negative) 02/02/19 20:11 Urine Bilirubin Negative (Negative) 02/02/19 20:11 Urine Urobilinogen 0.2 EU/dL (Up TO 0.2) 02/02/19 20:11 Ur Leukocyte Esterase Moderate (Negative) H 02/02/19 20:11 Urine RBC 10-20 (0-2) H 02/02/19 20:11 Urine WBC 10-20 HPF (0-5) 02/02/19 20:11 Ur Epithelial Cells Many HPF (Negative) 02/02/19 20:11 Urine Crystals Negative HPF (Negative) 02/02/19 20:11 Urine Bacteria Few HPF (Negative) 02/02/19 20:11 Urine Casts Negative LPF (Negative) 02/02/19 20:11 Urine Mucus Negative (Negative) 02/02/19 20:11 Urine Other (Negative) 02/02/19 20:11 Ur Culture Indicated? C&s done as ordered 02/02/19 20:11 Urine Glucose Negative mg/dL (Negative) 02/02/19 20:11
[2019-02-05] MEDS: Metoprolol 50 MG TAB PO ×2 (12:02→20:41)
--- NOTE | 2019-02-05 12:17 | PDOC.CMPRO ---
Care Management Progress Note S/O: Ann-Marie was sitting up in her chair, heart pillow in her arms when CM met with her. She appropriately shared her frustration at being re-admitted, and struggling with ongoing health issues. She talked about a conversation with her provider, Dr. Mcmahon where she reviewed ongoing medical and social stressors in her life, what did you expect would happen? She uses good humor appropriately and is fully engaged. Ann-Marie plans to return to her daughter's home, she understands that she may stay at [facility] for several days related to need for IV antibiotics. CM will continue to follow. A: Ann-Marie is a 68 year old female admitted with Healthcare Acquired pneumonia with a history of multiple encounters with healthcare settings, COPD, recent CABG and DM. P: Ann-Marie plans to discharge to her daughter's home when medically ready per provider. She will have resumption of home health services through [facility] including RN, PT, OT upon discharge. She will be staying with her daughter December at time of discharge and her family will transport her home.
--- NOTE | 2019-02-05 13:22 | CMPROGNOTE_ITS ---
Care Management Progress Note S/O: Ann-Marie was sitting up in her chair, heart pillow in her arms when CM met with her. She appropriately shared her frustration at being re-admitted, and struggling with ongoing health issues. She talked about a conversation with her provider, Dr. Mcmahon where she reviewed ongoing medical and social stressors in her life, what did you expect would happen? She uses good humor appropriately and is fully engaged. Ann-Marie plans to return to her daughter's home, she understands that she may stay at [facility] for several days related to need for IV antibiotics. CM will continue to follow. A: Ann-Marie is a 68 year old female admitted with Healthcare Acquired pneumonia with a history of multiple encounters with healthcare settings, COPD, recent CABG and DM. P: Ann-Marie plans to discharge to her daughter's home when medically ready per provider. She will have resumption of home health services through [facility] including RN, PT, OT upon discharge. She will be staying with her daughter December at time of discharge and her family will transport her home.
[2019-02-05 14:08] LABS: HCT 28.9 % (36.0-46.0); HGB 8.4 g/dL (12.0-15.5)
[2019-02-05] MEDS: Docusate Sodium 100 MG CAP PO (16:41)
[2019-02-05] MEDS: Polyethylene Glycol 3350 17 GM PACKET PO (16:41)
[2019-02-05] MEDS: rOPINIRole 0.5 MG TAB 2 MG PO (23:06)
[2019-02-06] VITALS (120 sets, daily range): BP systolic 105–128; BP diastolic 58–92; PULSE 75–150; RESP 16–50; TEMP 35.9–36.8; O2SAT 91–99
[2019-02-06] MEDS: PIPERACILLIN/TAZO 3.375 GM in Normal Saline 50 ML IVPB ×3 (05:06→21:19)
[2019-02-06] MEDS: Metoprolol 50 MG TAB PO ×3 (06:29→21:16)
[2019-02-06 07:16] LABS: Abs Immature Grans 0.03 k/cumm (0.0-0.09); Absolute Basophil Count 0.03 k/cumm (0.0-0.2); Absolute Eosinophil Count 0.53 k/cumm (0.0-0.7); Absolute Monocyte Count 1.04 k/cumm (0.11-0.7); Absolute Neutrophil Count 7.37 k/cumm (1.2-6.7); Basophils % 0.3; Eosinophils % 5.1; HGB 8.4 g/dL (12.0-15.5); Immature Grans % 0.3; Lymphocytes % 12.6; Mean Corpuscular Hemoglobin 28.9 pg (27.0-33.0); Mean Corpuscular Volume 99.7 fL (80-95); Monocytes % 10.1; Neutrophils % 71.6; Platelet Count 346 x1000/uL (130-400); RBC 2.91 m/cumm (4.00-5.20); RBC Distribution Width 14.9 % (11.7-14.6)
[2019-02-06 07:25] LABS: Anion Gap 7.1 mmol/L (3-11); BUN 33 mg/dL (7-18); CO2 28.9 mmol/L (21.0-32.0); CREATININE 1.51 mg/dL (0.55-1.02); Chloride 103 mmol/L (98-107); Estimated GFR 34.48 (mL/min/1.73m2); Glucose 183 mg/dL (70-100); Magnesium 2.1 mg/dL (1.8-2.4); Potassium 4.6 mmol/L (3.5-5.1); Sodium 139 mmol/L (136-145)
[2019-02-06] MEDS: Levalbuterol 1.25 MG/3 ML UPD VIAL UPD (07:44)
[2019-02-06] MEDS: Budesonide/Formoterol 160/4.5 6 GM 60 PUFF INH IH ×2 (07:45→21:20)
[2019-02-06] MEDS: Calcium 600mg/Vit D 200U TAB 2 TAB PO ×2 (08:37→21:16)
[2019-02-06] MEDS: Allopurinol 100 MG TAB PO (08:37)
[2019-02-06] MEDS: DULoxetine 30 MG CAP 60 MG PO (08:37)
[2019-02-06] MEDS: Folic Acid 1 MG TAB PO (08:38)
[2019-02-06] MEDS: Aspirin E.C. 81 MG TABEC PO (08:38)
[2019-02-06] MEDS: Doxycycline Hyclate 100 MG CAP PO ×2 (08:38→21:17)
[2019-02-06] MEDS: Cyanocobalamin 500 MCG TAB 1000 MCG PO (08:38)
[2019-02-06] MEDS: Atorvastatin 40 MG TAB PO (08:38)
[2019-02-06] MEDS: Sucralfate 1 GM TAB PO ×5 (08:38→21:38)
[2019-02-06] MEDS: Gabapentin 600 MG TAB PO ×3 (08:38→21:17)
[2019-02-06] MEDS: Furosemide 20 MG/2 ML VIAL IVP (08:39)
[2019-02-06] MEDS: Normal Saline Flush 10 ML SYR IVP ×3 (08:40→21:20)
[2019-02-06] MEDS: Heparin 5,000 UNITS/ML VIAL 5000 UNITS SC ×3 (08:41→23:42)
[2019-02-06] MEDS: Insulin Aspart 300 UNITS/3 ML PEN SC ×4 (09:02→21:21)
[2019-02-06 09:08] LABS: Procalcitonin < 0.1 ng/mL
[2019-02-06] MEDS: Ergocalciferol 50000 UNITS CAP PO (09:28)
--- NOTE | 2019-02-06 09:36 | PDOC.CMPRO ---
Care Management Progress Note S/O: Ann-Marie remains pleasant in interaction. No change to overall plan. CM will continue to follow. A: Ann-Marie is a 68 year old female admitted with Healthcare Acquired pneumonia with a history of multiple encounters with healthcare settings, COPD, recent CABG and DM. P: Ann-Marie plans to discharge to her daughter's home when medically ready per provider. She will have resumption of home health services through [facility] including RN, PT, OT upon discharge. She will be staying with her daughter December at time of discharge and her family will transport her home.
--- NOTE | 2019-02-06 10:26 | DI.RAD_ITS ---
SYMPTOM/DIAGNOSIS: F/U. ONGOING HYPOXIA AP AND LATERAL CHEST: Small bilateral pleural effusions are demonstrated, right greater than left. The heart is top limits of normal in size in this patient who is status post CABG. There is some prominence of the upper lobe vasculature raising the possibility of pulmonary venous hypertension. A left subclavian catheter is in stable position. SUMMARY: Interval development of bilateral pleural effusions. Findings which would be consistent with congestive failure. A concomitant right lower lobe pneumontiis could not be excluded.
[2019-02-06] MEDS: Nystatin CREAM 15 GM TUBE TP (11:28)
[2019-02-06 11:30] LABS: Vancomycin, Trough 23.7 ug/mL (10.0-20.0)
--- NOTE | 2019-02-06 13:54 | W.PM.PROGNOT ---
Date of Service Date of service: 02/06/19 Time of Service: 13:55 Assessment and Plan (1) HCAP (healthcare-associated pneumonia): Current visit: Yes Status: Acute Likely on the basis of incomplete treatment of prior infection, now with bibasilar infiltrates, leukocytosis, and hypoxia concerning for infection. Currently on Vancomycin, Pip-Tazo, and Doxycycline day #4. Sputum Culture with normal aurora and Phoebe, and one set of blood cultures with growth of a Gram + Cocci in pairs on Gram stain - thought potentially due to contamination with cultures showing no growth. Also with concurrent UTI but with Urine Cultures showing only 10-50,000 of mixed gram positive aurora, thought possible contaminant as well. Procalcitonin levels 0. Current continued dyspnea may be on basis of volume overload, with elevated CVP and CXR findings as above. Will attempt continued diuresis - change IV Furosemide to continuous infusion, insert Gonzalez catheter, and monitor I/O's carefully. Given history of COPD and presence of diminished breath sounds with faint wheezing may also benefit from steroids. (2) UTI (urinary tract infection): Current visit: Yes Status: Acute On antibiotics as above. Culture with potential contaminent. (3) CKD (chronic kidney disease) stage 3, GFR 30-59 ml/min: Current visit: No Status: Chronic Creatinine at baseline, with gentle IVFs given due to contrast administration at time of admission as well as initial hypotension. Currently fluid overloaded clinically - undergoing diuresis as above. (4) Atrial flutter: Current visit: Yes Status: Acute History of PAF, not on anticoagulation following excision of the PINEDA at the time of her CABG. Currently with mildly rapid rates but off cardizem gtt - continue to titrate oral BB with IV Lopressor prn. Rapid Atrial Flutter occured in the setting of acute infection and hypoxia. Continue to replete electrolytes, treat infection and hypoxia, diurese, and monitor on telemetry. Qualifiers: Atrial flutter type: typical Qualified Code(s): I48.3 - Typical atrial flutter (5) CAD (coronary artery disease): Current visit: Yes Status: Chronic S/p CABG in December - patient with minimal, equivocal elevation in troponin in setting of infection, rapid atrial flutter, and poor renal clearance. Likely demand ischemia. Troponin continued to downtrend, ECG is non-ischemic (TW Inversions laterally appear to be chronic) and patient is asymptomatic. Continue BB, ASA, high potency statin. Patient's GERD like symptoms did not relieve with NTG, but have abated with addition of PPI and TUMS. Hemoglobin had dropped as well, but stable - Stool negative for occult blood. Continue IV PPI, and add carafate. (6) S/P CABG (coronary artery bypass graft): Current visit: No Status: Chronic 12/2018. (7) Diabetes mellitus: Current visit: No Status: Chronic Currently on Victoza. Also on ISS. Qualifiers: Diabetes mellitus type: type 2 Diabetes mellitus penitentiary insulin use: without penitentiary use Diabetes mellitus complication status: with kidney complications Diabetes mellitus complication detail: with chronic kidney disease (8) Hyperlipidemia: Current visit: No Status: Chronic Continue Atorvastatin. (9) Essential hypertension: Current visit: No Status: Chronic Currently on BB as above. (10) DVT prophylaxis: Current visit: Yes Status: Acute Restart SC Heparin. Continue SCDs, TEDs. (11) Advance directive on file: Current visit: Yes Status: Acute Full Code. Subjective Interval history since last seen: 68 year old woman with a history of recent hospitalizations and treatment for Pneumonia, admitted 02/02 from [facility] Emergency Department with a diagnosis of Pneumonia. Mrs. Griggs has a Past Medical History significant for CKD, Obesity, DM, COPD, depression, gout, RLS, and spinal stenosis. She also had known CAD, s/p 3 vessel CABG at [facility] in December of 2018 following an NSTEMI. She also has a prior history of PAF, for which she underwent excision of her Left Atrial Appendage at the time of her CABG, and now remains off anticoagulation. Following her surgery the patient was discharged to [facility], prior to being admitted at [facility] with a diagnosis of Healthcare Aquired Pneumonia between 01/15 and 01/22/2019. She was treated with Vancomycin for 3 days, discontinued due to a negative MRSA Swab, as well as Pip-Tazo for 7 days. She was discharged home on a tapering dose of prednisone. She presented back to the ED with complaints of left sided pleuritic CP and dyspnea. She was found to be in Atrial Flutter with a rapid rate and hypoxic, with subsequent CTA of the chest showing evidence of bibasilar infiltrates without evidence of a PE. Work-up showed evidence of an elevated lactate, leukocytosis, as well as a potential UTI by urinalysis. She also had a mild and equivocal elevation in troponin. At that time the patient was referred for admission for further evaluation and treatment. Since admission Mrs Griggs's breathing initially improved, then worsened again, and her CVP was elevated a 24. She has received diuretic therapy with some improvement, but remains dyspneic and with supplemental oxygen requirement. Her CXR was repeated and shows evidence of worsening pleural effusions and increased congestion despite evidence of increased UOP and decrease in weight. Her HR is slightly elevated, but she has been off Cardizem gtt. She was previously complaining of significant heart burn type symptoms, which was her anginal equivalent. Repeat ECG remained unchanged from her prior, repeat troponins continued to downtrend, and NTG did not take away her burning sensation. She previously reportedresolution of her symptoms with addition of Tums, PPI, and carafate - Her Hemoccult was negative, and her H/H remains low but stable. She remains afebrile, with a resolved leukocytosis and now undetectable Procalcitonin. No other overnight events reported. Exam Narrative Exam Narrative: General: Patient appears comfortable, AAOX3, NAD Skin: Midline Sternotomy scar appears well healing Neck: Supple CV: Regular, remains mildly tachycardic, S1S2, No murmur. In atrial flutter by monitor. Pulmonary: Bibasilar crackles, worse on the right. Mild wheezing noted, with significantly decreased breath sounds diffusely. Abdomen: + Bowel Sounds, soft, nontender, nondistended Vascular: Mild b/l lower extremity edema Psych: Normal mood and affect. Objective Objective Clinical Data: Abnormal lab results 02/05/19 02/06/19 02/06/19 Range/Units 13:58 06:25 06:25 RBC 2.91 L (4.00-5.20) m/cumm Hgb 8.4 L 8.4 L (12.0-15.5) g/dL Hct 28.9 L 29.0 L (36.0-46.0) % MCV 99.7 H (80-95) fL MCHC 29.0 L (32.0-36.0) g/dL RDW 14.9 H (11.7-14.6) % Absolute Neutrophils 7.37 H (1.2-6.7) k/cumm Absolute Monocytes 1.04 H (0.11-0.7) k/cumm BUN 33 H (7-18) mg/dL Creatinine 1.51 H (0.55-1.02) mg/dL Glucose 183 H (70-100) mg/dL Vancomycin Trough (10.0-20.0) ug/mL 02/06/19 Range/Units 11:08 RBC (4.00-5.20) m/cumm Hgb (12.0-15.5) g/dL Hct (36.0-46.0) % MCV (80-95) fL MCHC (32.0-36.0) g/dL RDW (11.7-14.6) % Absolute Neutrophils (1.2-6.7) k/cumm Absolute Monocytes (0.11-0.7) k/cumm BUN (7-18) mg/dL Creatinine (0.55-1.02) mg/dL Glucose (70-100) mg/dL Vancomycin Trough 23.7 H* (10.0-20.0) ug/mL Vital Signs Temperature 36.6 C 02/06/19 04:10 Temperature Source Temporal Artery Scan 02/06/19 04:10 Pulse 110 H 02/06/19 12:05 Pulse 100 H 02/06/19 13:10 Respiratory Rate 29 H 02/06/19 13:10 Respiratory Effort Pursed Lip 02/06/19 04:10 Respiratory Depth Shallow 02/06/19 04:10 Respiratory Pattern Tachypnea 02/06/19 04:10 Blood Pressure 109/78 02/06/19 12:05 Blood Pressure Mean 85 02/06/19 12:05 Blood Pressure Position Supine 02/06/19 00:00 Pulse Oximetry 98 02/06/19 13:10 Oxygen Delivery Method Nasal Cannula 02/06/19 07:45 Oxygen Flow Rate 2 02/06/19 07:45 Pain Level 0 02/05/19 16:20 Intake & Output 02/05/19 02/06/19 02/06/19 23:59 11:59 23:59 Intake Total 827 / 1367 317.708 / 337.708 20 337.708 Output Total 800 / 1500 Balance 133 317.708 / 337.708 20 / 337.708 Weight 129.9 kg Intake: IV 50 / 350 317.708 / 337.708 / 337.708 Oral 777 / 1017 Output: Urine 800 / 1500 Other: Urine Color Yellow Urine Appearance Clear Urine Odor None Comment gonzalez cath dc'd as ordered. at 2200 gonzalez cath dc'd as ordered. at 2200 Stool Occult Blood Negative Stool Size Large Stool Characteristics Soft Formed Voiding Methods Incontinent Laboratory Results WBC 10.30 k/cumm (4.4-10.8) 02/06/19 06:25 RBC 2.91 m/cumm (4.00-5.20) L 02/06/19 06:25 Hgb 8.4 g/dL (12.0-15.5) L 02/06/19 06:25 Hct 29.0 % (36.0-46.0) L 02/06/19 06:25 MCV 99.7 fL (80-95) H 02/06/19 06:25 MCH 28.9 pg (27.0-33.0) 02/06/19 06:25 MCHC 29.0 g/dL (32.0-36.0) L 02/06/19 06:25 RDW 14.9 % (11.7-14.6) H 02/06/19 06:25 Plt Count 346 x1000/uL (130-400) 02/06/19 06:25 MPV 10.0 fL (8.0-11.0) 02/06/19 06:25 Immature Gran % 0.3 02/06/19 06:25 Neutrophils % 71.6 02/06/19 06:25 Lymphocytes % 12.6 02/06/19 06:25 Monocytes % 10.1 02/06/19 06:25 Eosinophils % 5.1 02/06/19 06:25 Basophils % 0.3 02/06/19 06:25 Absolute Neutrophils 7.37 k/cumm (1.2-6.7) H 02/06/19 06:25 Absolute Lymphocytes 1.30 k/cumm (1.2-3.4) 02/06/19 06:25 Absolute Monocytes 1.04 k/cumm (0.11-0.7) H 02/06/19 06:25 Absolute Eosinophils 0.53 k/cumm (0.0-0.7) 02/06/19 06:25 Absolute Basophils 0.03 k/cumm (0.0-0.2) 02/06/19 06:25 Differential Comment Rbc morph reviewed 02/03/19 05:50 RBC Morphology See below 02/03/19 05:50 Polychromasia Present 02/03/19 05:50 Hypochromasia 1+ 02/03/19 05:50 Poikilocytosis 1+ 02/03/19 05:50 Basophilic Stippling Present 02/03/19 05:50 Macrocytosis 1+ 02/03/19 05:50 PT 11.6 sec (9.3-11.0) H 02/02/19 17:57 INR 1.2 (0.9-1.1) H 02/02/19 17:57 APTT 27.0 sec (21.0-31.4) 02/02/19 17:57 Sodium 139 mmol/L (136-145) 02/06/19 06:25 Potassium 4.6 mmol/L (3.5-5.1) D 02/06/19 06:25 Chloride 103 mmol/L (98-107) 02/06/19 06:25 Carbon Dioxide 28.9 mmol/L (21.0-32.0) 02/06/19 06:25 Anion Gap 7.1 mmol/L (3-11) 02/06/19 06:25 BUN 33 mg/dL (7-18) H 02/06/19 06:25 Creatinine 1.51 mg/dL (0.55-1.02) H 02/06/19 06:25 Estimated GFR/1.73 m2 34.48 (mL/min/1.73m2) 02/06/19 06:25 Glucose 183 mg/dL (70-100) H 02/06/19 06:25 Lactate 0.9 mmol/l (0.6-1.4) 02/04/19 12:25 Calcium 9.0 mg/dL (8.5-10.1) 02/06/19 06:25 Magnesium 2.1 mg/dL (1.8-2.4) 02/06/19 06:25 Iron 8 ug/dL (50-175) L 02/04/19 07:15 TIBC 251 ug/dL (250-450) 02/04/19 07:15 Transferrin % Sat 3 % (15-50) L 02/04/19 07:15 Ferritin 171 ng/mL (8-388) 02/04/19 07:15 Total Bilirubin 0.8 mg/dL (0.2-1.0) 02/02/19 17:57 AST 11 U/L (15-37) L 02/02/19 17:57 ALT 29 U/L (12-78) 02/02/19 17:57 Alkaline Phosphatase 124 U/L (46-116) H 02/02/19 17:57 Troponin I 0.16 ng/mL (0.00-0.06) H* 02/04/19 21:10 NT-Pro-B Natriuret Pep 5237 pg/mL (-299) H 02/04/19 07:15 Total Protein 7.0 g/dL (6.4-8.2) 02/02/19 17:57 Albumin 2.8 g/dL (3.4-5.0) L 02/02/19 17:57 Vitamin B12 1844 pg/mL (193-986) H 02/04/19 07:15 Folate > 20.0 ng/mL (8.6-20.0) H 02/04/19 07:15 Procalcitonin < 0.1 ng/mL 02/06/19 06:25 TSH 0.97 uIU/mL (0.358-3.74) 02/02/19 17:57 Urine Color Yellow (Yellow) 02/02/19 20:11 Urine Clarity Sl cloudy 02/02/19 20:11 Urine pH 5.5 (5-8) 02/02/19 20:11 Ur Specific [place] 1.015 (1.005-1.025) 02/02/19 20:11 Urine Protein 30 mg/dL (Negative) H 02/02/19 20:11 Urine Ketones Negative mg/dL (Negative) 02/02/19 20:11 Urine Blood Moderate (Negative) H 02/02/19 20:11 Urine Nitrite Negative (Negative) 02/02/19 20:11 Urine Bilirubin Negative (Negative) 02/02/19 20:11 Urine Urobilinogen 0.2 EU/dL (Up TO 0.2) 02/02/19 20:11 Ur Leukocyte Esterase Moderate (Negative) H 02/02/19 20:11 Urine RBC 10-20 (0-2) H 02/02/19 20:11 Urine WBC 10-20 HPF (0-5) 02/02/19 20:11 Ur Epithelial Cells Many HPF (Negative) 02/02/19 20:11 Urine Crystals Negative HPF (Negative) 02/02/19 20:11 Urine Bacteria Few HPF (Negative) 02/02/19 20:11 Urine Casts Negative LPF (Negative) 02/02/19 20:11 Urine Mucus Negative (Negative) 02/02/19 20:11 Urine Other (Negative) 02/02/19 20:11 Ur Culture Indicated? C&s done as ordered 02/02/19 20:11 Urine Glucose Negative mg/dL (Negative) 02/02/19 20:11 Vancomycin Trough 23.7 ug/mL (10.0-20.0) H* 02/06/19 11:08 Legionella Source (see note) 02/03/19 22:10 Legionella Reprt Status (see note) 02/03/19 22:10 Legionella Final Result (see note) 02/03/19 22:10
--- NOTE | 2019-02-06 14:15 | PGE_ITS ---
Date of Service Date of service: 02/06/19 Time of Service: 13:55 Assessment and Plan (1) HCAP (healthcare-associated pneumonia): Current visit: Yes Status: Acute Likely on the basis of incomplete treatment of prior infection, now with bibasilar infiltrates, leukocytosis, and hypoxia concerning for infection. Currently on Vancomycin, Pip-Tazo, and Doxycycline day #4. Sputum Culture with normal aurora and Phoebe, and one set of blood cultures with growth of a Gram + Cocci in pairs on Gram stain - thought potentially due to contamination with cultures showing no growth. Also with concurrent UTI but with Urine Cultures showing only 10-50,000 of mixed gram positive aurora, thought possible contaminant as well. Procalcitonin levels 0. Current continued dyspnea may be on basis of volume overload, with elevated CVP and CXR findings as above. Will attempt continued diuresis - change IV Furosemide to continuous infusion, insert Gonzalez catheter, and monitor I/O's carefully. Given history of COPD and presence of diminished breath sounds with faint wheezing may also benefit from steroids. (2) UTI (urinary tract infection): Current visit: Yes Status: Acute On antibiotics as above. Culture with potential contaminent. (3) CKD (chronic kidney disease) stage 3, GFR 30-59 ml/min: Current visit: No Status: Chronic Creatinine at baseline, with gentle IVFs given due to contrast administration at time of admission as well as initial hypotension. Currently fluid overloaded clinically - undergoing diuresis as above. (4) Atrial flutter: Current visit: Yes Status: Acute History of PAF, not on anticoagulation following excision of the PINEDA at the time of her CABG. Currently with mildly rapid rates but off cardizem gtt - continue to titrate oral BB with IV Lopressor prn. Rapid Atrial Flutter occured in the setting of acute infection and hypoxia. Continue to replete electrolytes, treat infection and hypoxia, diurese, and monitor on telemetry. Qualifiers: Atrial flutter type: typical Qualified Code(s): I48.3 - Typical atrial flutter (5) CAD (coronary artery disease): Current visit: Yes Status: Chronic S/p CABG in December - patient with minimal, equivocal elevation in troponin in setting of infection, rapid atrial flutter, and poor renal clearance. Likely demand ischemia. Troponin continued to downtrend, ECG is non-ischemic (TW Inversions laterally appear to be chronic) and patient is asymptomatic. Continue BB, ASA, high potency statin. Patient's GERD like symptoms did not relieve with NTG, but have abated with addition of PPI and TUMS. Hemoglobin had dropped as well, but stable - Stool negative for occult blood. Continue IV PPI, and add carafate. (6) S/P CABG (coronary artery bypass graft): Current visit: No Status: Chronic 12/2018. (7) Diabetes mellitus: Current visit: No Status: Chronic Currently on Victoza. Also on ISS. Qualifiers: Diabetes mellitus type: type 2 Diabetes mellitus mcc insulin use: without mcc use Diabetes mellitus complication status: with kidney complications Diabetes mellitus complication detail: with chronic kidney disease (8) Hyperlipidemia: Current visit: No Status: Chronic Continue Atorvastatin. (9) Essential hypertension: Current visit: No Status: Chronic Currently on BB as above. (10) DVT prophylaxis: Current visit: Yes Status: Acute Restart SC Heparin. Continue SCDs, TEDs. (11) Advance directive on file: Current visit: Yes Status: Acute Full Code. Subjective Interval history since last seen: 68 year old woman with a history of recent hospitalizations and treatment for Pneumonia, admitted 02/02 from [facility] Emergency Department with a diagnosis of Pneumonia. Mrs. Griggs has a Past Medical History significant for CKD, Obesity, DM, COPD, depression, gout, RLS, and spinal stenosis. She also had known CAD, s/p 3 vessel CABG at [facility] [place] following an NSTEMI. She also has a prior history of PAF, for which she underwent excision of her Left Atrial Appendage at the time of her CABG, and now remains off anticoagulation. Following her surgery the patient was discharged to [facility], prior to being admitted at [facility] with a diagnosis of Healthcare Aquired Pneumonia between 01/15 and 01/22/2019. She was treated with Vancomycin for 3 days, discontinued due to a negative MRSA Swab, as well as Pip-Tazo for 7 days. She was discharged home on a tapering dose of prednisone. She presented back to the ED with complaints of left sided pleuritic CP and dyspnea. She was found to be in Atrial Flutter with a rapid rate and hypoxic, with subsequent CTA of the chest showing evidence of bibasilar infiltrates without evidence of a PE. Work-up showed evidence of an elevated lactate, leukocytosis, as well as a potential UTI by urinalysis. She also had a mild and equivocal elevation in troponin. At that time the patient was referred for admission for further evaluation and treatment. Since admission Mrs Griggs's breathing initially improved, then worsened again, and her CVP was elevated a 24. She has received diuretic therapy with some improvement, but remains dyspneic and with supplemental oxygen requirement. Her CXR was repeated and shows evidence of worsening pleural effusions and increased congestion despite evidence of increased UOP and decrease in weight. Her HR is slightly elevated, but she has been off Cardizem gtt. She was previously compla ining of significant heart burn type symptoms, which was her anginal equivalent. Repeat ECG remained unchanged from her prior, repeat troponins continued to downtrend, and NTG did not take away her burning sensation. She previously reportedresolution of her symptoms with addition of Tums, PPI, and carafate - Her Hemoccult was negative, and her H/H remains low but stable. She remains afebrile, with a resolved leukocytosis and now undetectable Procalcitonin. No other overnight events reported. Exam Narrative Exam Narrative: General: Patient appears comfortable, AAOX3, NAD Skin: Midline Sternotomy scar appears well healing Neck: Supple CV: Regular, remains mildly tachycardic, S1S2, No murmur. In atrial flutter by monitor. Pulmonary: Bibasilar crackles, worse on the right. Mild wheezing noted, with significantly decreased breath sounds diffusely. Abdomen: + Bowel Sounds, soft, nontender, nondistended Vascular: Mild b/l lower extremity edema Psych: Normal mood and affect. Objective Objective Clinical Data: Abnormal lab results 02/05/19 02/06/19 02/06/19 Range/Units 13:58 06:25 06:25 RBC 2.91 L (4.00-5.20) m/cumm Hgb 8.4 L 8.4 L (12.0-15.5) g/dL Hct 28.9 L 29.0 L (36.0-46.0) % MCV 99.7 H (80-95) fL MCHC 29.0 L (32.0-36.0) g/dL RDW 14.9 H (11.7-14.6) % Absolute Neutrophils 7.37 H (1.2-6.7) k/cumm Absolute Monocytes 1.04 H (0.11-0.7) k/cumm BUN 33 H (7-18) mg/dL Creatinine 1.51 H (0.55-1.02) mg/dL Glucose 183 H (70-100) mg/dL Vancomycin Trough (10.0-20.0) ug/mL 02/06/19 Range/Units 11:08 RBC (4.00-5.20) m/cumm Hgb (12.0-15.5) g/dL Hct (36.0-46.0) % MCV (80-95) fL MCHC (32.0-36.0) g/dL RDW (11.7-14.6) % Absolute Neutrophils (1.2-6.7) k/cumm Absolute Monocytes (0.11-0.7) k/cumm BUN (7-18) mg/dL Creatinine (0.55-1.02) mg/dL Glucose (70-100) mg/dL Vancomycin Trough 23.7 H* (10.0-20.0) ug/mL Vital Signs Temperature 36.6 C 02/06/19 04:10 Temperature Source Temporal Artery Scan 02/06/19 04:10 Pulse 110 H 02/06/19 12:05 Pulse 100 H 02/06/19 13:10 Respiratory Rate 29 H 02/06/19 13:10 Respiratory Effort Pursed Lip 02/06/19 04:10 Respiratory Depth Shallow 02/06/19 04:10 Respiratory Pattern Tachypnea 02/06/19 04:10 Blood Pressure 109/78 02/06/19 12:05 Blood Pressure Mean 85 02/06/19 12:05 Blood Pressure Position Supine 02/06/19 00:00 Pulse Oximetry 98 02/06/19 13:10 Oxygen Delivery Method Nasal Cannula 02/06/19 07:45 Oxygen Flow Rate 2 02/06/19 07:45 Pain Level 0 02/05/19 16:20 Intake & Output 02/05/19 02/06/19 02/06/19 23:59 11:59 23:59 Intake Total 827 / 1367 317.708 / 337.708 20 / 337.708 Output Total 800 / 1500 Balance 27 / 133 317.708 / 337.708 20 / 337.708 Weight 129.9 kg Intake: IV 50 / 350 317.708 / 337.708 337.708 Oral 777 / 1017 Output: Urine 800 / 1500 Other: Urine Color Yellow Urine Appearance Clear Urine Odor None Comment gonzalez cath dc'd as ordered. at 2200 gonzalez cath dc'd as ordered. at 2200 Stool Occult Blood Negative Stool Size Large Stool Characteristics Soft Formed Voiding Methods Incontinent Laboratory Results WBC 10.30 k/cumm (4.4-10.8) 02/06/19 06:25 RBC 2.91 m/cumm (4.00-5.20) L 02/06/19 06:25 Hgb 8.4 g/dL (12.0-15.5) L 02/06/19 06:25 Hct 29.0 % (36.0-46.0) L 02/06/19 06:25 MCV 99.7 fL (80-95) H 02/06/19 06:25 MCH 28.9 pg (27.0-33.0) 02/06/19 06:25 MCHC 29.0 g/dL (32.0-36.0) L 02/06/19 06:25 RDW 14.9 % (11.7-14.6) H 02/06/19 06:25 Plt Count 346 x1000/uL (130-400) 02/06/19 06:25 MPV 10.0 fL (8.0-11.0) 02/06/19 06:25 Immature Gran % 0.3 02/06/19 06:25 Neutrophils % 71.6 02/06/19 06:25 Lymphocytes % 12.6 02/06/19 06:25 Monocytes % 10.1 02/06/19 06:25 Eosinophils % 5.1 02/06/19 06:25 Basophils % 0.3 02/06/19 06:25 Absolute Neutrophils 7.37 k/cumm (1.2-6.7) H 02/06/19 06:25 Absolute Lymphocytes 1.30 k/cumm (1.2-3.4) 02/06/19 06:25 Absolute Monocytes 1.04 k/cumm (0.11-0.7) H 02/06/19 06:25 Absolute Eosinophils 0.53 k/cumm (0.0-0.7) 02/06/19 06:25 Absolute Basophils 0.03 k/cumm (0.0-0.2) 02/06/19 06:25 Differential Comment Rbc morph reviewed 02/03/19 05:50 RBC Morphology See below 02/03/19 05:50 Polychromasia Present 02/03/19 05:50 Hypochromasia 1+ 02/03/19 05:50 Poikilocytosis 1+ 02/03/19 05:50 Basophilic Stippling Present 02/03/19 05:50 Macrocytosis 1+ 02/03/19 05:50 PT 11.6 sec (9.3-11.0) H 02/02/19 17:57 INR 1.2 (0.9-1.1) H 02/02/19 17:57 APTT 27.0 sec (21.0-31.4) 02/02/19 17:57 Sodium 139 mmol/L (136-145) 02/06/19 06:25 Potassium 4.6 mmol/L (3.5-5.1) D 02/06/19 06:25 Chloride 103 mmol/L (98-107) 02/06/19 06:25 Carbon Dioxide 28.9 mmol/L (21.0-32.0) 02/06/19 06:25 Anion Gap 7.1 mmol/L (3-11) 02/06/19 06:25 BUN 33 mg/dL (7-18) H 02/06/19 06:25 Creatinine 1.51 mg/dL (0.55-1.02) H 02/06/19 06:25 Estimated GFR/1.73 m2 34.48 (mL/min/1.73m2) 02/06/19 06:25 Glucose 183 mg/dL (70-100) H 02/06/19 06:25 Lactate 0.9 mmol/l (0.6-1.4) 02/04/19 12:25 Calcium 9.0 mg/dL (8.5-10.1) 02/06/19 06:25 Magnesium 2.1 mg/dL (1.8-2.4) 02/06/19 06:25 Iron 8 ug/dL (50-175) L 02/04/19 07:15 TIBC 251 ug/dL (250-450) 02/04/19 07:15 Transferrin % Sat 3 % (15-50) L 02/04/19 07:15 Ferritin 171 ng/mL (8-388) 02/04/19 07:15 Total Bilirubin 0.8 mg/dL (0.2-1.0) 02/02/19 17:57 AST 11 U/L (15-37) L 02/02/19 17:57 ALT 29 U/L (12-78) 02/02/19 17:57 Alkaline Phosphatase 124 U/L (46-116) H 02/02/19 17:57 Troponin I 0.16 ng/mL (0.00-0.06) H* 02/04/19 21:10 NT-Pro-B Natriuret Pep 5237 pg/mL (-299) H 02/04/19 07:15 Total Protein 7.0 g/dL (6.4-8.2) 02/02/19 17:57 Albumin 2.8 g/dL (3.4-5.0) L 02/02/19 17:57 Vitamin B12 1844 pg/mL (193-986) H 02/04/19 07:15 Folate > 20.0 ng/mL (8.6-20.0) H 02/04/19 07:15 Procalcitonin < 0.1 ng/mL 02/06/19 06:25 TSH 0.97 uIU/mL (0.358-3.74) 02/02/19 17:57 Urine Color Yellow (Yellow) 02/02/19 20:11 Urine Clarity Sl cloudy 02/02/19 20:11 Urine pH 5.5 (5-8) 02/02/19 20:11 Ur Specific Phyllis 1.015 (1.005-1.025) 02/02/19 20:11 Urine Protein 30 mg/dL (Negative) H 02/02/19 20:11 Urine Ketones Negative mg/dL (Negative) 02/02/19 20:11 Urine Blood Moderate (Negative) H 02/02/19 20:11 Urine Nitrite Negative (Negative) 02/02/19 20:11 Urine Bilirubin Negative (Negative) 02/02/19 20:11 Urine Urobilinogen 0.2 EU/dL (Up TO 0.2) 02/02/19 20:11 Ur Leukocyte Esterase Moderate (Negative) H 02/02/19 20:11 Urine RBC 10-20 (0-2) H 02/02/19 20:11 Urine WBC 10-20 HPF (0-5) 02/02/19 20:11 Ur Epithelial Cells Many HPF (Negative) 02/02/19 20:11 Urine Crystals Negative HPF (Negative) 02/02/19 20:11 Urine Bacteria Few HPF (Negative) 02/02/19 20:11 Urine Casts Negative LPF (Negative) 02/02/19 20:11 Urine Mucus Negative (Negative) 02/02/19 20:11 Urine Other (Negative) 02/02/19 20:11 Ur Culture Indicated? C&s done as ordered 02/02/19 20:11 Urine Glucose Negative mg/dL (Negative) 02/02/19 20:11 Vancomycin Trough 23.7 ug/mL (10.0-20.0) H* 02/06/19 11:08 Legionella Source (see note) 02/03/19 22:10 Legionella Reprt Status (see note) 02/03/19 22:10 Legionella Final Result (see note) 02/03/19 22:10
--- NOTE | 2019-02-06 14:26 | W.PM.PROGNOT ---
Documented by User: Yayo Alexandra 02/06/19 20:49 Date of Service Date of service: 02/06/19 Time of Service: 14:27 Assessment and Plan (1) Acute diastolic CHF (congestive heart failure): Current visit: Yes Status: Acute Ms. Griggs complains of dyspnea today. Differential include ongoing PNA, CHF (bilateral pleural effusion evidenced on CXR today), COPD exacerbation (hx of COPD requiring home Symbicort, decreased lung sounds on exam), pulmonary hypertension (echo on 01/26/19 showed pulmonary artery pressure elevated 35-40 mmHg). Her weight today is 286 lb, up 3 lbs from 283 lb on admission 02/02, her outpatient weight was 275 lb on 01/29/19, she also does have 1+ non-pitting edema on lower extremity, supporting the diagnosis of fluid overload. We will increase her diuretic regimen from scheduled injections to continuous, treat her underlying COPD with prednisone, and continue PNA antibiotic coverage. - Furosemide 100mg IV infusion 5 mg/hr, 5 mls/hr for fluid overload, continue gonzalez - Prednisone 40mg BID for COPD - Continue Vanc and Zosyn for PNA (see PNA discussion below) (2) HCAP (healthcare-associated pneumonia): Current visit: Yes Status: Acute Ms. Griggs as admitted for suspected PNA on 02/02 based on CXR finding of left basilar infiltrate and sputum culture positive for clay albicans (normal resp aurora). She was also found to have a suspected UTI based on positive leukocyte esterase and urine culture with gram positive mixed aurora (though most likely contaminated sample). Given her co-morbidities (DM, s/p CABG, recent HAP), she has been treated with vanc and zosyn for suspected PNA and UTI. Her PNA and UTI are resolving based on the below evidence: she is afebrile (temp today 96.6 F), WBC has downtrended and normalized (today 10.30 wnl vs admission 23.4), her CXR today 02/06 did not show progression of the left basilar infiltrate seen on admission CXR 02/02, her pro-calcitonin has normalized (today 0.1, down from 0.7 since admission). On exam she still has decreased breath sounds but no focal condensation was heard, she has normal bowel movement and urination, no dysuria, and urine clear through gonzalez. Based on patient's positive progression, we will continue the current broad spectrum gram positive and negative abx regimen: - Pip/Tazo 3.375gm in NS 50ml @ 12.5 mls/hr Q8H - Vanco D5W 1gm 200 ml@ 133 mls/hr Q18H (3) UTI (urinary tract infection): Current visit: Yes Status: Acute (4) Diabetes mellitus: Current visit: No Status: Chronic Ms. Griggs has hx of DM at home on glargine (Lancets), glipizide, liraglutide (Victoza). Since admission, her pre-prandial finger stick glucose has been very elevated in the range of 157 - 303. She is currently on aspart (Novolog) and liraglutide. Diabetes consult recommends 1 unit of insulin for 15 grams of carb, as well as checking HbA1c (last: 7.7 on 09/27/18). She is also due to start prednisone 40 mg today d/t concern for underlying COPD causing her to be dyspneic. 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 Griggs presented to [facility] in December with heartburn symptoms later found to have NSTEMI then underwent 3-vessel CABG. She complained of heartburn again during this admission, yet her EKG did not reveal ACS, her troponin since 02/03 had been downtrending (0.31-->0.21-->0.18-->0.16), therefore the suspicion for a repeat ACS episode was low. She has not complained of chest pain today. Therefore, we will keep her on current CAD medication along with GERD treatment. She also has underlying Aflutter now at rapid pulse 150, she is s/p left atrial appendage excision so she was off-anticoagulation, she is currently on heparin subQ for ppx. - Continue CAD tx: aspirin 81mg, atorvastatin 40mg, metoprolol 5mg/5ml Q4H PRN, nitroglycerin 0.4mL PRN, - Continue GERD tx: meclizine 25mg, calcium carb 500mg QID PRN, omeprazole 50 mg Subjective Patient reports: shortness of breath Interval history since last seen: This is a medical student progress note, written for educational purpose only. For clinical care, please refer to the attending hospitalist note. Ms. Griggs is a 68 yo F w/ hx of coronary artery disease, s/p 3-vessel CABG (Dec 2018) following NSTEMI, paroxysmal Afib s/p excision of left atrial appendage currently off anti-coagulation, admitted on 02/02/19 for healthcare-acquired pneumonia with concurrent UTI. Her other hx include obesity, CKD, DM, COPD (quit smoking in 2018), gout, restless leg syndrome, spinal stenosis, and depression. She was recently discharged (01/15/19 - 01/22/19) for healthcare-acquired pneumonia treated with vanc, pip-tazo, and tapering prednisone. For this admission, she presented to the ED with left-sided pleuritic chest pain w/ dyspnea, found to have A-flutter, bibasilar infiltrates confirmed with CTA, elevated lactate, leukocytosis, and elevation of troponin. Her dyspnea initially improved but then worsened. CVP was elevated at 24, then relieved with diuretics. She has been off cardiazem gtt. She complained of heart burn symptoms, which was her anginal presentation prior to her NSTEMI in December, but repeat ECG and troponin did not reveal cardiac ischemia. Today patient complained of shortness of breath, especially when she coughs. She does not have any pain anywhere. Denies headache, dizziness, chest pain, abdominal pain, constipation, diarrhea, dysuria. She had a heme-negative bowel movement today. She has been producing urine through Gonzalez. Her mood is fine. She interacted with her daughter and grandchildren. She is futuristic about going back to her home. Exam Const General: cooperative and no acute distress Nutritional Appearance: obese Orientation: alert and awake [facility] Head: normal to inspection Eyes General: appearance normal, both eyes and all related structures Resp Effort & Inspection: normal respiratory effort, able to speak in complete sentences and audible wheezes (Right lower base) Cardio Rate: tachycardic Rhythm: abnormal rhythm (irregular) Heart Sounds: S1 normal and S2 normal GI Palpation: no guarding, no hepatomegaly, not rigid, no splenomegaly and nontender Auscultation: normal bowel sounds Neuro General: alert and awake Cranial Nerves: CN's II-XI intact bilaterally Cognition: normal cognition Speech: speech normal Extrem Right lower extremity: edema Details: non-pitting and 1+ Left lower extremity: edema Details: non-pitting and 1+ Psych Appearance: grossly normal Mental Status: mental status grossly normal Speech and Movement: speech and movement normal Mood: congruent mood Affect: normal affect Attitude: cooperative Thought Process: normal Thought Content: normal Insight: insight good Judgment: judgment good Objective Objective Clinical Data: Abnormal lab results 02/05/19 02/06/19 02/06/19 Range/Units 13:58 06:25 06:25 RBC 2.91 L (4.00-5.20) m/cumm Hgb 8.4 L 8.4 L (12.0-15.5) g/dL Hct 28.9 L 29.0 L (36.0-46.0) % MCV 99.7 H (80-95) fL MCHC 29.0 L (32.0-36.0) g/dL RDW 14.9 H (11.7-14.6) % Absolute Neutrophils 7.37 H (1.2-6.7) k/cumm Absolute Monocytes 1.04 H (0.11-0.7) k/cumm BUN 33 H (7-18) mg/dL Creatinine 1.51 H (0.55-1.02) mg/dL Glucose 183 H (70-100) mg/dL Vancomycin Trough (10.0-20.0) ug/mL 02/06/19 Range/Units 11:08 RBC (4.00-5.20) m/cumm Hgb (12.0-15.5) g/dL Hct (36.0-46.0) % MCV (80-95) fL MCHC (32.0-36.0) g/dL RDW (11.7-14.6) % Absolute Neutrophils (1.2-6.7) k/cumm Absolute Monocytes (0.11-0.7) k/cumm BUN (7-18) mg/dL Creatinine (0.55-1.02) mg/dL Glucose (70-100) mg/dL Vancomycin Trough 23.7 H* (10.0-20.0) ug/mL Vital Signs Temperature 98.2 F 02/06/19 07:53 Temperature Source Temporal Artery Scan 02/06/19 07:53 Pulse 110 H 02/06/19 12:05 Pulse 100 H 02/06/19 13:10 Respiratory Rate 29 H 02/06/19 13:10 Respiratory Effort 02/06/19 07:53 Respiratory Depth Shallow 02/06/19 07:53 Respiratory Pattern Tachypnea 02/06/19 07:53 Blood Pressure 109/78 02/06/19 12:05 Blood Pressure Mean 85 02/06/19 12:05 Blood Pressure Position Sitting 02/06/19 07:53 Pulse Oximetry 98 02/06/19 13:10 Oxygen Delivery Method Nasal Cannula 02/06/19 07:53 Oxygen Flow Rate 2 02/06/19 07:53 Pain Level 0 02/06/19 07:53 Intake & Output 02/05/19 02/06/19 02/06/19 23:59 11:59 23:59 Intake Total 827 / 1367 317.708 / 337.708 20 / 337.708 Output Total 800 / 1500 Balance 27 / -133 317.708 / 337.708 20 / 337.708 Weight 286 lb 6.087 oz Intake: IV 50 / 350 317.708 / 337.708 20 / 337.708 Oral 777 / 1017 Output: Urine 800 / 1500 Other: Urine Color Yellow Urine Appearance Clear Urine Odor None Comment gonzalez cath dc'd as ordered. at 2200 Voided 325 cc with stool. Stool Occult Blood Negative Stool Size Large Stool Characteristics Soft Formed Voiding Methods Incontinent Laboratory Results WBC 10.30 k/cumm (4.4-10.8) 02/06/19 06:25 RBC 2.91 m/cumm (4.00-5.20) L 02/06/19 06:25 Hgb 8.4 g/dL (12.0-15.5) L 02/06/19 06:25 Hct 29.0 % (36.0-46.0) L 02/06/19 06:25 MCV 99.7 fL (80-95) H 02/06/19 06:25 MCH 28.9 pg (27.0-33.0) 02/06/19 06:25 MCHC 29.0 g/dL (32.0-36.0) L 02/06/19 06:25 RDW 14.9 % (11.7-14.6) H 02/06/19 06:25 Plt Count 346 x1000/uL (130-400) 02/06/19 06:25 MPV 10.0 fL (8.0-11.0) 02/06/19 06:25 Immature Gran % 0.3 02/06/19 06:25 Neutrophils % 71.6 02/06/19 06:25 Lymphocytes % 12.6 02/06/19 06:25 Monocytes % 10.1 02/06/19 06:25 Eosinophils % 5.1 02/06/19 06:25 Basophils % 0.3 02/06/19 06:25 Absolute Neutrophils 7.37 k/cumm (1.2-6.7) H 02/06/19 06:25 Absolute Lymphocytes 1.30 k/cumm (1.2-3.4) 02/06/19 06:25 Absolute Monocytes 1.04 k/cumm (0.11-0.7) H 02/06/19 06:25 Absolute Eosinophils 0.53 k/cumm (0.0-0.7) 02/06/19 06:25 Absolute Basophils 0.03 k/cumm (0.0-0.2) 02/06/19 06:25 Differential Comment Rbc morph reviewed 02/03/19 05:50 RBC Morphology See below 02/03/19 05:50 Polychromasia Present 02/03/19 05:50 Hypochromasia 1+ 02/03/19 05:50 Poikilocytosis 1+ 02/03/19 05:50 Basophilic Stippling Present 02/03/19 05:50 Macrocytosis 1+ 02/03/19 05:50 PT 11.6 sec (9.3-11.0) H 02/02/19 17:57 INR 1.2 (0.9-1.1) H 02/02/19 17:57 APTT 27.0 sec (21.0-31.4) 02/02/19 17:57 Sodium 139 mmol/L (136-145) 02/06/19 06:25 Potassium 4.6 mmol/L (3.5-5.1) D 02/06/19 06:25 Chloride 103 mmol/L (98-107) 02/06/19 06:25 Carbon Dioxide 28.9 mmol/L (21.0-32.0) 02/06/19 06:25 Anion Gap 7.1 mmol/L (3-11) 02/06/19 06:25 BUN 33 mg/dL (7-18) H 02/06/19 06:25 Creatinine 1.51 mg/dL (0.55-1.02) H 02/06/19 06:25 Estimated GFR/1.73 m2 34.48 (mL/min/1.73m2) 02/06/19 06:25 Glucose 183 mg/dL (70-100) H 02/06/19 06:25 Lactate 0.9 mmol/l (0.6-1.4) 02/04/19 12:25 Calcium 9.0 mg/dL (8.5-10.1) 02/06/19 06:25 Magnesium 2.1 mg/dL (1.8-2.4) 02/06/19 06:25 Iron 8 ug/dL (50-175) L 02/04/19 07:15 TIBC 251 ug/dL (250-450) 02/04/19 07:15 Transferrin % Sat 3 % (15-50) L 02/04/19 07:15 Ferritin 171 ng/mL (8-388) 02/04/19 07:15 Total Bilirubin 0.8 mg/dL (0.2-1.0) 02/02/19 17:57 AST 11 U/L (15-37) L 02/02/19 17:57 ALT 29 U/L (12-78) 02/02/19 17:57 Alkaline Phosphatase 124 U/L (46-116) H 02/02/19 17:57 Troponin I 0.16 ng/mL (0.00-0.06) H* 02/04/19 21:10 NT-Pro-B Natriuret Pep 5237 pg/mL (-299) H 02/04/19 07:15 Total Protein 7.0 g/dL (6.4-8.2) 02/02/19 17:57 Albumin 2.8 g/dL (3.4-5.0) L 02/02/19 17:57 Vitamin B12 1844 pg/mL (193-986) H 02/04/19 07:15 Folate > 20.0 ng/mL (8.6-20.0) H 02/04/19 07:15 Procalcitonin < 0.1 ng/mL 02/06/19 06:25 TSH 0.97 uIU/mL (0.358-3.74) 02/02/19 17:57 Urine Color Yellow (Yellow) 02/02/19 20:11 Urine Clarity Sl cloudy 02/02/19 20:11 Urine pH 5.5 (5-8) 02/02/19 20:[address] 1.015 (1.005-1.025) 02/02/19 20:11 Urine Protein 30 mg/dL (Negative) H 02/02/19 20:11 Urine Ketones Negative mg/dL (Negative) 02/02/19 20:11 Urine Blood Moderate (Negative) H 02/02/19 20:11 Urine Nitrite Negative (Negative) 02/02/19 20:11 Urine Bilirubin Negative (Negative) 02/02/19 20:11 Urine Urobilinogen 0.2 EU/dL (Up TO 0.2) 02/02/19 20:11 Ur Leukocyte Esterase Moderate (Negative) H 02/02/19 20:11 Urine RBC 10-20 (0-2) H 02/02/19 20:11 Urine WBC 10-20 HPF (0-5) 02/02/19 20:11 Ur Epithelial Cells Many HPF (Negative) 02/02/19 20:11 Urine Crystals Negative HPF (Negative) 02/02/19 20:11 Urine Bacteria Few HPF (Negative) 02/02/19 20:11 Urine Casts Negative LPF (Negative) 02/02/19 20:11 Urine Mucus Negative (Negative) 02/02/19 20:11 Urine Other (Negative) 02/02/19 20:11 Ur Culture Indicated? C&s done as ordered 02/02/19 20:11 Urine Glucose Negative mg/dL (Negative) 02/02/19 20:11 Vancomycin Trough 23.7 ug/mL (10.0-20.0) H* 02/06/19 11:08 Legionella Source (see note) 02/03/19 22:10 Legionella Reprt Status (see note) 02/03/19 22:10 Legionella Final Result (see note) 02/03/19 22:10 Documented by User: Oswald Cornell MD 02/07/19 12:26
--- NOTE | 2019-02-06 15:05 | W.INDIABCONS ---
Date of service: 02/06/19 Time of Service: 15:06 Diabetes Inpatient Consult DESCRIPTION/ASSESSMENT: Appreciate diabetes consult for Ann-Marie Griggs who was recently hospitalized experiencing hyperglycemia secondary to steroid administration. A1c 7.7 5 months ago BMI 42 This visit she is here for pneumonia with recent blood sugars 166-209 taking sensitive insulin correction and Victoza. She does not appear to be on her usual GLipizide medication this visit. Medication change indicates Prednisone 40mg starting tonight. BLood sugars do not appear to be correcting with insulin correction as they tend to increase with 1-2units of correction insulin, thus not quite covering the carbohydrate load. She is not visited today. INTERVENTION: Ann-Marie may benefit from insulin for carbohydrate to prevent increases in blood sugar when blood sugar is less than 140mg/dl. Suggest 1 unit for 15 grams to prevent hyperglycemia. PLAN: Will follow blood sugars for effects of steroid and to assess efficacy of insulin for carbohydrate. Suggest A1c if not current result available Time Spent in Nutritional Counseling and Treatment: 0
[2019-02-06 16:27] LABS: Streptococcus Pneumoniae Ag, U Negative (Negative)
[2019-02-06] MEDS: predniSONE 20 MG TAB 40 MG PO (21:17)
[2019-02-06] MEDS: rOPINIRole 0.5 MG TAB 2 MG PO (21:18)
[2019-02-06 23:40] LABS: Mycoplasma Pneumoniae PCR Negative; Specimen source sputum
[2019-02-07] VITALS (101 sets, daily range): BP systolic 92–151; BP diastolic 54–87; PULSE 71–136; RESP 18–46; TEMP 36.2–37.5; O2SAT 87–98
[2019-02-07] MEDS: Metoprolol 50 MG TAB PO ×3 (04:41→20:31)
[2019-02-07] MEDS: PIPERACILLIN/TAZO 3.375 GM in Normal Saline 50 ML IVPB ×3 (04:41→20:32)
[2019-02-07 07:21] LABS: Abs Immature Grans 0.03 k/cumm (0.0-0.09); Absolute Basophil Count 0.03 k/cumm (0.0-0.2); Absolute Eosinophil Count 0.07 k/cumm (0.0-0.7); Absolute Lymphocyte Count 0.72 k/cumm (1.2-3.4); Absolute Monocyte Count 0.16 k/cumm (0.11-0.7); Absolute Neutrophil Count 7.85 k/cumm (1.2-6.7); Basophils % 0.3; Eosinophils % 0.8; HCT 29.4 % (36.0-46.0); HGB 8.7 g/dL (12.0-15.5); Immature Grans % 0.3; Lymphocytes % 8.1; Mean Corp. HGB Concentration 29.6 g/dL (32.0-36.0); Mean Corpuscular Hemoglobin 29.1 pg (27.0-33.0); Mean Corpuscular Volume 98.3 fL (80-95); Mean Platelet Volume 9.7 fL (8.0-11.0); Monocytes % 1.8; Neutrophils % 88.7; Platelet Count 358 x1000/uL (130-400); RBC 2.99 m/cumm (4.00-5.20); RBC Distribution Width 14.7 % (11.7-14.6); White Blood Cell Count 8.86 k/cumm (4.4-10.8)
[2019-02-07 07:30] LABS: BUN 35 mg/dL (7-18); CREATININE 1.54 mg/dL (0.55-1.02); Calcium 9.3 mg/dL (8.5-10.1); Chloride 102 mmol/L (98-107); Glucose 254 mg/dL (70-100); Magnesium 1.9 mg/dL (1.8-2.4); Potassium 4.9 mmol/L (3.5-5.1); Sodium 138 mmol/L (136-145)
[2019-02-07] MEDS: Budesonide/Formoterol 160/4.5 6 GM 60 PUFF INH IH ×2 (07:45→21:22)
[2019-02-07] MEDS: Normal Saline Flush 10 ML SYR IVP ×3 (08:39→20:30)
[2019-02-07] MEDS: Heparin 5,000 UNITS/ML VIAL 5000 UNITS SC ×2 (08:40→17:00)
[2019-02-07] MEDS: Insulin Aspart 300 UNITS/3 ML PEN SC ×4 (08:40→21:34)
[2019-02-07] MEDS: Nystatin CREAM 15 GM TUBE TP (08:40)
[2019-02-07] MEDS: Folic Acid 1 MG TAB PO (08:45)
[2019-02-07] MEDS: DULoxetine 30 MG CAP 60 MG PO (08:45)
[2019-02-07] MEDS: Allopurinol 100 MG TAB PO (08:46)
[2019-02-07] MEDS: Doxycycline Hyclate 100 MG CAP PO ×2 (08:46→20:31)
[2019-02-07] MEDS: Calcium 600mg/Vit D 200U TAB 2 TAB PO ×2 (08:46→20:31)
[2019-02-07] MEDS: Sucralfate 1 GM TAB PO ×4 (08:47→21:20)
[2019-02-07] MEDS: Aspirin E.C. 81 MG TABEC PO (08:47)
[2019-02-07] MEDS: predniSONE 20 MG TAB 40 MG PO ×2 (08:47→20:31)
[2019-02-07] MEDS: Cyanocobalamin 500 MCG TAB 1000 MCG PO (08:47)
[2019-02-07] MEDS: Gabapentin 600 MG TAB PO ×3 (08:47→20:31)
[2019-02-07] MEDS: Atorvastatin 40 MG TAB PO (08:47)
--- NOTE | 2019-02-07 09:03 | W.PM.PROGNOT ---
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 Please refer to the attending hospitalist note for clinical care. Ms. Griggs's dyspnea is much improved compared to yesterday. The ddx for her dyspnea include ongoing PNA, CHF (bilateral pleural effusion evidenced on CXR today), COPD exacerbation (hx of COPD requiring home Symbicort, decreased lung sounds on exam), pulmonary hypertension (echo on 01/26/19 showed pulmonary artery pressure elevated 35-40 mmHg). Her weight today is 282 lb, down 4 lbs compared to yesterday, she has been on continuous furosemide drip. We will continue the furosemide drip, treat her underlying COPD with prednisone, and continue PNA antibiotic coverage. - Furosemide 100mg IV infusion 5 mg/hr, 5 mls/hr for fluid overload, continue gonzalez - Prednisone 40mg BID for COPD - Continue Vanc, Pip/Tazo, Doxy for PNA (see PNA discussion below) (3) HCAP (healthcare-associated pneumonia): Current visit: Yes Status: Acute Ms. Griggs was admitted for suspected PNA on 02/02 based on CXR finding of left basilar infiltrate and sputum culture positive for clay albicans (normal resp aurora). She was also found to have a suspected UTI based on positive leukocyte esterase and urine culture with gram positive mixed aurora (though most likely contaminated sample). Given her co-morbidities (DM, s/p CABG, recent HAP), she has been treated with vanc, pip-tazo, doxy for suspected PNA and UTI. Her PNA and UTI are resolving based on the below evidence: she is afebrile (temp today 98.1 F), WBC has downtrended and normalized (today 8.86 wnl vs admission 23.4), her CXR today 02/06 did not show progression of the left basilar infiltrate seen on admission CXR 02/02, her pro-calcitonin has normalized (last one 0.1, down from 0.7 since admission). On exam she still has decreased breath sounds but no focal condensation was heard, she has normal bowel movement and urination, no dysuria. Based on patient's positive progression, we will continue the current broad spectrum gram positive and negative abx regimen: - Pip/Tazo 3.375gm in NS 50ml @ 12.5 mls/hr Q8H - Vanco D5W 1gm 200 ml@ 133 mls/hr Q18H - Doxycycline 100mg BID (4) CAD (coronary artery disease): Current visit: Yes Status: Chronic Ms. Griggs presented to [facility] in [place] with heartburn symptoms later found to have NSTEMI then underwent 3-vessel CABG. She complained of heartburn again during this admission, yet her EKG did not reveal ischemic changes, her troponin since 02/03 had been downtrending (0.31-->0.21-->0.18-->0.16), therefore the suspicion for a repeat ACS episode was low. She has not complained of chest pain today. Therefore, we will keep her on current CAD medication along with GERD treatment. She also has underlying Aflutter now at rapid pulse 115, she is s/p left atrial appendage excision so she was off-anticoagulation, she is currently on heparin subQ for ppx. - Continue CAD tx: aspirin 81mg, atorvastatin 40mg, metoprolol 50mg Q8H - Continue GERD tx: omeprazole 50 mg, ranitidine 10mg BID (5) Diabetes mellitus: Current visit: No Status: Chronic Ms. Griggs has hx of DM at home on glargine (Lancets), glipizide, liraglutide (Victoza). Since admission, her pre-prandial finger stick glucose has been very elevated in the range of 157 - 303. She is currently on aspart (Novolog) and liraglutide (home med). Nutrition consult recommends 1 unit of insulin for 15 grams of carb, as well as checking HbA1c (last: 7.7 on 09/27/18). She was started on prednisone 40 mg d/t concern for underlying COPD causing her to be dyspneic. We will focus on treating her CHF and PNA at this point and allow her to have permissive hyperglycemia given that multiple factors could raise her blood glucose in the inpatient setting. Will keep current DM management, and recommend outpatient DM follow-up. - Dose Aspart 1 unit for 15 grams - Continue liraglutide (Victoza) 0.6 mg subQ Qualifiers: Diabetes mellitus complication detail: with chronic kidney disease Diabetes mellitus complication status: with kidney complications Diabetes mellitus group home insulin use: without group home use Diabetes mellitus type: type 2 Subjective Patient reports: feels better; denies shortness of breath Interval history since last seen: 02/07: Ms. Griggs says she is breathing much better today than yesterday. Denies headache, nausea, vomiting, chest pain, heart burn sensation, abd pain, dysuria. She ambulated yesterday. Last BM was yesterday. Does not complain of pain. Family are going to visit her again today. Ms. Griggs is a 68 yo F w/ hx of coronary artery disease, s/p 3-vessel CABG (Dec 2018) following NSTEMI, paroxysmal Afib s/p excision of left atrial appendage currently off anti-coagulation, admitted on 02/02/19 for healthcare-acquired pneumonia with concurrent UTI. Her other hx include obesity, CKD, DM, COPD (quit smoking in 2017), gout, restless leg syndrome, spinal stenosis, and depression. She was recently discharged (01/15/19 - 01/22/19) for healthcare-acquired pneumonia treated with vanc, pip-tazo, and tapering prednisone. For this admission, she presented to the ED with left-sided pleuritic chest pain w/ dyspnea, found to have A-flutter, bibasilar infiltrates confirmed with CTA, elevated lactate, leukocytosis, and elevation of troponin. Her dyspnea initially improved but then worsened. CVP was elevated at 24, then relieved with diuretics. She has been off cardiazem gtt. She complained of heart burn symptoms, which was her anginal presentation prior to her NSTEMI in December, but repeat ECG and troponin did not reveal cardiac ischemia. Exam Const General: cooperative, comfortable and no acute distress Orientation: alert, awake, oriented x3, oriented to person, oriented to place and oriented to time [facility] Head: normal to inspection Eyes General: appearance normal, both eyes and all related structures EOM: EOM intact bilaterally Resp Effort & Inspection: normal respiratory effort Auscultation: diminished lung sounds and wheezes Cardio Rate: tachycardic Rhythm: abnormal rhythm Heart Sounds: no murmurs GI Palpation: no guarding and nontender Auscultation: normal bowel sounds Neuro General: alert, awake and oriented x3 Cranial Nerves: CN's II-XI intact bilaterally Cognition: normal cognition Speech: speech normal Extrem Right lower extremity: no edema Left lower extremity: no edema Psych Appearance: grossly normal Mental Status: mental status grossly normal Speech and Movement: speech and movement normal Mood: congruent mood Affect: normal affect Attitude: cooperative Thought Process: normal Thought Content: normal Insight: insight good Judgment: judgment good Objective Objective Clinical Data: Abnormal lab results 02/06/19 02/07/19 02/07/19 Range/Units 11:08 06:30 06:30 RBC 2.99 L (4.00-5.20) m/cumm Hgb 8.7 L (12.0-15.5) g/dL Hct 29.4 L (36.0-46.0) % MCV 98.3 H (80-95) fL MCHC 29.6 L (32.0-36.0) g/dL RDW 14.7 H (11.7-14.6) % Absolute Neutrophils 7.85 H (1.2-6.7) k/cumm Absolute Lymphocytes 0.72 L (1.2-3.4) k/cumm BUN 35 H (7-18) mg/dL Creatinine 1.54 H (0.55-1.02) mg/dL Glucose 254 H (70-100) mg/dL Vancomycin Trough 23.7 H* (10.0-20.0) ug/mL Vital Signs Temperature 98.1 F 02/07/19 08:10 Temperature Source Temporal Artery Scan 02/07/19 08:10 Pulse 128 H 02/07/19 04:01 Pulse 118 H 02/07/19 04:01 Respiratory Rate 23 02/07/19 04:01 Respiratory Effort 02/07/19 08:10 Respiratory Depth Normal 02/07/19 08:10 Respiratory Pattern Normal 02/07/19 08:10 Blood Pressure 149/69 H 02/07/19 04:01 Blood Pressure Mean 89 02/07/19 04:01 Blood Pressure Position Sitting 02/07/19 08:10 Pulse Oximetry 89 L 02/07/19 08:27 Oxygen Delivery Method Nasal Cannula 02/07/19 08:27 Oxygen Flow Rate 1 02/07/19 08:27 Pain Level 0 02/07/19 08:10 Intake & Output 02/06/19 02/06/19 02/07/19 11:59 23:59 11:59 Intake Total 557.708 / 3149.661 7352.475 / 1982.183 490 / 490 Output Total 850 / 3950 3100 / 3950 800 / 800 Balance -292.292 / -1966.817 -1674.525 / -1966.817 -310 / -310 Weight 286 lb 6.087 oz 285 lb 0.923 oz Intake: IV 317.708 / 643.183 325.475 / 643.183 80 / 80 Oral 240 / 1340 1100 / 1340 410 / 410 Output: Urine 850 / 3950 3100 / 3950 800 / 800 Other: Urine Color Yellow Pale Brown Yellow [place] Urine Appearance Clear Clear Clear Urine Odor None Comment Voided 325 cc with stool. Gonzalez in place. Amount approximated. Catheter found to have clot in the tubing. Patient just urinated out around the tubing while sitting in the chair eating breakfast. Patient wants to finish breakfast and then will return to bed to replace catheter. Stool Occult Blood Negative Stool Size Large Stool Characteristics Soft Formed Voiding Methods Bedside Commode Laboratory Results WBC 8.86 k/cumm (4.4-10.8) 02/07/19 06:30 RBC 2.99 m/cumm (4.00-5.20) L 02/07/19 06:30 Hgb 8.7 g/dL (12.0-15.5) L 02/07/19 06:30 Hct 29.4 % (36.0-46.0) L 02/07/19 06:30 MCV 98.3 fL (80-95) H 02/07/19 06:30 MCH 29.1 pg (27.0-33.0) 02/07/19 06:30 MCHC 29.6 g/dL (32.0-36.0) L 02/07/19 06:30 RDW 14.7 % (11.7-14.6) H 02/07/19 06:30 Plt Count 358 x1000/uL (130-400) 02/07/19 06:30 MPV 9.7 fL (8.0-11.0) 02/07/19 06:30 Immature Gran % 0.3 02/07/19 06:30 Neutrophils % 88.7 02/07/19 06:30 Lymphocytes % 8.1 02/07/19 06:30 Monocytes % 1.8 02/07/19 06:30 Eosinophils % 0.8 02/07/19 06:30 Basophils % 0.3 02/07/19 06:30 Absolute Neutrophils 7.85 k/cumm (1.2-6.7) H 02/07/19 06:30 Absolute Lymphocytes 0.72 k/cumm (1.2-3.4) L 02/07/19 06:30 Absolute Monocytes 0.16 k/cumm (0.11-0.7) 02/07/19 06:30 Absolute Eosinophils 0.07 k/cumm (0.0-0.7) 02/07/19 06:30 Absolute Basophils 0.03 k/cumm (0.0-0.2) 02/07/19 06:30 Differential Comment Rbc morph reviewed 02/03/19 05:50 RBC Morphology See below 02/03/19 05:50 Polychromasia Present 02/03/19 05:50 Hypochromasia 1+ 02/03/19 05:50 Poikilocytosis 1+ 02/03/19 05:50 Basophilic Stippling Present 02/03/19 05:50 Macrocytosis 1+ 02/03/19 05:50 PT 11.6 sec (9.3-11.0) H 02/02/19 17:57 INR 1.2 (0.9-1.1) H 02/02/19 17:57 APTT 27.0 sec (21.0-31.4) 02/02/19 17:57 Sodium 138 mmol/L (136-145) 02/07/19 06:30 Potassium 4.9 mmol/L (3.5-5.1) 02/07/19 06:30 Chloride 102 mmol/L (98-107) 02/07/19 06:30 Carbon Dioxide 30.0 mmol/L (21.0-32.0) 02/07/19 06:30 Anion Gap 6.0 mmol/L (3-11) 02/07/19 06:30 BUN 35 mg/dL (7-18) H 02/07/19 06:30 Creatinine 1.54 mg/dL (0.55-1.02) H 02/07/19 06:30 Estimated GFR/1.73 m2 33.70 (mL/min/1.73m2) 02/07/19 06:30 Glucose 254 mg/dL (70-100) H 02/07/19 06:30 Lactate 0.9 mmol/l (0.6-1.4) 02/04/19 12:25 Calcium 9.3 mg/dL (8.5-10.1) 02/07/19 06:30 Magnesium 1.9 mg/dL (1.8-2.4) 02/07/19 06:30 Iron 8 ug/dL (50-175) L 02/04/19 07:15 TIBC 251 ug/dL (250-450) 02/04/19 07:15 Transferrin % Sat 3 % (15-50) L 02/04/19 07:15 Ferritin 171 ng/mL (8-388) 02/04/19 07:15 Total Bilirubin 0.8 mg/dL (0.2-1.0) 02/02/19 17:57 AST 11 U/L (15-37) L 02/02/19 17:57 ALT 29 U/L (12-78) 02/02/19 17:57 Alkaline Phosphatase 124 U/L (46-116) H 02/02/19 17:57 Troponin I 0.16 ng/mL (0.00-0.06) H* 02/04/19 21:10 NT-Pro-B Natriuret Pep 5237 pg/mL (-299) H 02/04/19 07:15 Total Protein 7.0 g/dL (6.4-8.2) 02/02/19 17:57 Albumin 2.8 g/dL (3.4-5.0) L 02/02/19 17:57 Vitamin B12 1844 pg/mL (193-986) H 02/04/19 07:15 Folate > 20.0 ng/mL (8.6-20.0) H 02/04/19 07:15 Procalcitonin < 0.1 ng/mL 02/06/19 06:25 TSH 0.97 uIU/mL (0.358-3.74) 02/02/19 17:57 Urine Color Yellow (Yellow) 02/02/19 20:11 Urine Clarity Sl cloudy 02/02/19 20:11 Urine pH 5.5 (5-8) 02/02/19 20:11 Ur Specific [place] 1.015 (1.005-1.025) 02/02/19 20:11 Urine Protein 30 mg/dL (Negative) H 02/02/19 20:11 Urine Ketones Negative mg/dL (Negative) 02/02/19 20:11 Urine Blood Moderate (Negative) H 02/02/19 20:11 Urine Nitrite Negative (Negative) 02/02/19 20:11 Urine Bilirubin Negative (Negative) 02/02/19 20:11 Urine Urobilinogen 0.2 EU/dL (Up TO 0.2) 02/02/19 20:11 Ur Leukocyte Esterase Moderate (Negative) H 02/02/19 20:11 Urine RBC 10-20 (0-2) H 02/02/19 20:11 Urine WBC 10-20 HPF (0-5) 02/02/19 20:11 Ur Epithelial Cells Many HPF (Negative) 02/02/19 20:11 Urine Crystals Negative HPF (Negative) 02/02/19 20:11 Urine Bacteria Few HPF (Negative) 02/02/19 20:11 Urine Casts Negative LPF (Negative) 02/02/19 20:11 Urine Mucus Negative (Negative) 02/02/19 20:11 Urine Other (Negative) 02/02/19 20:11 Ur Culture Indicated? C&s done as ordered 02/02/19 20:11 Urine Glucose Negative mg/dL (Negative) 02/02/19 20:11 Vancomycin Trough 23.7 ug/mL (10.0-20.0) H* 02/06/19 11:08 Legionella Source (see note) 02/03/19 22:10 Legionella Reprt Status (see note) 02/03/19 22:10 Legionella Final Result (see note) 02/03/19 22:10 Ur Strep pneumoniae Ag Negative (Negative) 02/03/19 22:10 Documented by User: Oswald Cornell MD 02/08/19 12:45
--- NOTE | 2019-02-07 09:09 | PDOC.CMPRO ---
- If Service Date Differs Date of service: 02/07/19 Time of Service: 09:09 Care Management Progress Note S/O: Ann-Marie remains on IV antibiotics, oral steroids and cardiac monitoring. CM met with Ann-Marie at the bedside she is in good spirts she has her incentive sp in her hand when CM arrives. She states she is ambulating with nurses in the ICU. CM will request a PT/OT consult at interdisciplinary rounds. Plan will be for Ann-Marie to return to her daughters home when she is ready for discharge. She states she has had some family visit. She shares that her grandson broke his neck and is having surgery today. She was able to speak to him prior to surgery and she is awaiting family to give her an update. CM provided support and active listening while Bibi shared her worries about her grandson. Ann-Marie is looking forward to recovery and returning home to her daughters. A: Ann-Marie is a 68 year old female admitted with Healthcare Acquired pneumonia with a history of multiple encounters with healthcare settings, COPD, recent CABG and DM. P: Ann-Marie will plan to discharged home when medically ready per provider. She will have resumption of home health services nursing, PT and OT upon discharge. She will be staying with her daughter December at time of discharge and her family will transport her home.
[2019-02-07] MEDS: dilTIAZem 30 MG TAB PO ×3 (09:54→21:20)
[2019-02-07] MEDS: Magnesium Oxide 400 MG TAB PO (10:53)
[2019-02-07] MEDS: Levalbuterol 1.25 MG/3 ML UPD VIAL UPD (12:16)
--- NOTE | 2019-02-07 12:26 | W.PM.PROGNOT ---
Date of Service Date of service: 02/07/19 Time of Service: 12:26 Assessment and Plan (1) HCAP (healthcare-associated pneumonia): Current visit: Yes Status: Acute Likely on the basis of incomplete treatment of prior infection, now with bibasilar infiltrates, leukocytosis, and hypoxia concerning for infection. Currently on Vancomycin, Pip-Tazo, and Doxycycline day #5. Sputum Culture with normal aurora and Phoebe, and one set of blood cultures with growth of a Gram + Cocci in pairs on Gram stain - thought potentially due to contamination with cultures showing no growth. Also with concurrent UTI but with Urine Cultures showing only 10-50,000 of mixed gram positive aurora, thought possible contaminant as well. Procalcitonin levels decreased from and admission value of 0.7 to undetectable yesterday. Continued dyspnea was on the basis of volume overload, with elevated CVP and CXR findings of worsening effusion and congestion. Responding well to diuresis with lasix gtt - plan will be to exchange trouble shooter to IV Furosemide potentially later today, continue to monitor I/O's carefully, and monitor daily weights. Given history of COPD and presence of diminished breath sounds with faint wheezing was also started on steroids, which will be slowly tapered off. (2) UTI (urinary tract infection): Current visit: Yes Status: Acute Culture with potential contaminent. (3) CKD (chronic kidney disease) stage 3, GFR 30-59 ml/min: Current visit: No Status: Chronic Creatinine at baseline, with gentle IVFs given due to contrast administration at time of admission as well as initial hypotension. Currently fluid overloaded clinically - undergoing diuresis as above. (4) Atrial flutter: Current visit: Yes Status: Acute History of PAF, not on anticoagulation following excision of the PINEDA at the time of her CABG. Currently with mildly rapid rates but off cardizem gtt - continue to titrate oral BB with IV Lopressor prn, and initiate oral Cardizem. Rapid Atrial Flutter occured in the setting of acute infection and hypoxia. Continue to replete electrolytes, treat infection and hypoxia, diurese, and monitor on telemetry. Qualifiers: Atrial flutter type: typical Qualified Code(s): I48.3 - Typical atrial flutter (5) CAD (coronary artery disease): Current visit: Yes Status: Chronic S/p CABG in December - patient with minimal, equivocal elevation in troponin in setting of infection, rapid atrial flutter, and poor renal clearance. Likely demand ischemia. Troponin continued to downtrend, ECG is non-ischemic (TW Inversions laterally appear to be chronic) and patient is asymptomatic. Continue BB, ASA, high potency statin. Patient's GERD like symptoms did not relieve with NTG, but have abated with addition of PPI and TUMS. Hemoglobin had dropped as well, but stable - Stool negative for occult blood. Continue IV PPI, and add carafate. (6) S/P CABG (coronary artery bypass graft): Current visit: No Status: Chronic 12/2018. (7) Diabetes mellitus: Current visit: No Status: Chronic Currently on Victoza. Also on ISS. 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 (9) Essential hypertension: Current visit: No Status: Chronic Currently on BB as above. (10) DVT prophylaxis: Current visit: Yes Status: Acute On SC Heparin. Continue SCDs, TEDs. (11) Advance directive on file: Current visit: Yes Status: Acute Full Code. Subjective Interval history since last seen: 68 year old woman with a history of recent hospitalizations and treatment for Pneumonia, admitted 02/02 from [facility] Emergency Department with a diagnosis of Pneumonia. Mrs. Griggs has a Past Medical History significant for CKD, Obesity, DM, COPD, depression, gout, RLS, and spinal stenosis. She also had known CAD, s/p 3 vessel CABG at [facility] in December of 2018 following an NSTEMI. She also has a prior history of PAF, for which she underwent excision of her Left Atrial Appendage at the time of her CABG, and now remains off anticoagulation. Following her surgery the patient was discharged to [facility], prior to being admitted at [facility] with a diagnosis of Healthcare Aquired Pneumonia between 01/15 and 01/22/2019. She was treated with Vancomycin for 3 days, discontinued due to a negative MRSA Swab, as well as Pip-Tazo for 7 days. She was discharged home on a tapering dose of prednisone. She presented back to the ED with complaints of left sided pleuritic CP and dyspnea. She was found to be in Atrial Flutter with a rapid rate and hypoxic, with subsequent CTA of the chest showing evidence of bibasilar infiltrates without evidence of a PE. Work-up showed evidence of an elevated lactate, leukocytosis, as well as a potential UTI by urinalysis. She also had a mild and equivocal elevation in troponin. At that time the patient was referred for admission for further evaluation and treatment. Since admission Mrs Griggs's breathing initially improved, then worsened again. Further work-up revealed evidence of worsening CXR findings of volume overload, and an elevated CVP at 24 - Procalcitonin has become undetectable. She had received diuretic therapy with some improvement, but remained dyspneic - following initiation of a lasix drip Mrs. Griggs has diuresed significantly, and feels vastly improved today. Her renal function remains intact, and her weight is down. Her HR continues to be elevated off Cardizem gtt. She was previously complaining of significant heart burn type symptoms, which was her anginal equivalent. Repeat ECG remained unchanged from her prior, repeat troponins continued to downtrend, and NTG did not take away her burning sensation. She previously reported resolution of her symptoms with addition of Tums, PPI, and carafate - Her Hemoccult was negative, and her H/H remains low but stable. She remains afebrile, with a resolved leukocytosis and now undetectable Procalcitonin. No other overnight events reported. Exam Narrative Exam Narrative: General: Patient appears comfortable, AAOX3, NAD Skin: Midline Sternotomy scar appears well healing Neck: Supple CV: Regular, remains mildly tachycardic, S1S2, No murmur. In atrial flutter by monitor. Pulmonary: Bibasilar crackles, worse on the right, vastly imporved. Now with only minimal wheezing noted at the right base. Previously noted decreased breath sounds diffusely, now with improved air entry. Abdomen: + Bowel Sounds, soft, nontender, nondistended Vascular: Mild b/l lower extremity edema Psych: Normal mood and affect. Objective Objective Clinical Data: Abnormal lab results 02/07/19 02/07/19 Range/Units 06:30 06:30 RBC 2.99 L (4.00-5.20) m/cumm Hgb 8.7 L (12.0-15.5) g/dL Hct 29.4 L (36.0-46.0) % MCV 98.3 H (80-95) fL MCHC 29.6 L (32.0-36.0) g/dL RDW 14.7 H (11.7-14.6) % Absolute Neutrophils 7.85 H (1.2-6.7) k/cumm Absolute Lymphocytes 0.72 L (1.2-3.4) k/cumm BUN 35 H (7-18) mg/dL Creatinine 1.54 H (0.55-1.02) mg/dL Glucose 254 H (70-100) mg/dL Vital Signs Temperature 36.7 C 02/07/19 08:10 Temperature Source Temporal Artery Scan 02/07/19 08:10 Pulse 131 H 02/07/19 07:53 Pulse 117 H 02/07/19 10:40 Respiratory Rate 27 H 02/07/19 10:40 Respiratory Effort 02/07/19 08:10 Respiratory Depth Normal 02/07/19 08:10 Respiratory Pattern Normal 02/07/19 08:10 Blood Pressure 113/87 02/07/19 07:53 Blood Pressure Mean 93 02/07/19 07:53 Blood Pressure Position Sitting 02/07/19 08:10 Pulse Oximetry 95 02/07/19 10:40 Oxygen Delivery Method Nasal Cannula 02/07/19 08:27 Oxygen Flow Rate 1 02/07/19 08:27 Pain Level 0 02/07/19 08:10 Intake & Output 02/06/19 02/07/19 02/07/19 23:59 11:59 23:59 Intake Total 1425.475 / 1983.183 760 / 760 Output Total 3100 / 3950 1000 / 1000 Balance -1674.525 / -1966.817 -240 / -240 Weight 128.1 kg Intake: IV 325.475 / 643.183 350 / 350 Oral 1100 / 1340 410 / 410 Output: Urine 3100 / 3950 1000 / 1000 Other: Urine Color Pale Pale Yellow Yellow Urine Appearance Clear Clear Comment Gonzalez in place. Placed a new catheter. The old catheter had a large blood clot in the gonzalez and urine was leaking around it. The catheter fell out on its own and was replaced without difficulty. Amount approximated Laboratory Results WBC 8.86 k/cumm (4.4-10.8) 02/07/19 06:30 RBC 2.99 m/cumm (4.00-5.20) L 02/07/19 06:30 Hgb 8.7 g/dL (12.0-15.5) L 02/07/19 06:30 Hct 29.4 % (36.0-46.0) L 02/07/19 06:30 MCV 98.3 fL (80-95) H 02/07/19 06:30 MCH 29.1 pg (27.0-33.0) 02/07/19 06:30 MCHC 29.6 g/dL (32.0-36.0) L 02/07/19 06:30 RDW 14.7 % (11.7-14.6) H 02/07/19 06:30 Plt Count 358 x1000/uL (130-400) 02/07/19 06:30 MPV 9.7 fL (8.0-11.0) 02/07/19 06:30 Immature Gran % 0.3 02/07/19 06:30 Neutrophils % 88.7 02/07/19 06:30 Lymphocytes % 8.1 02/07/19 06:30 Monocytes % 1.8 02/07/19 06:30 Eosinophils % 0.8 02/07/19 06:30 Basophils % 0.3 02/07/19 06:30 Absolute Neutrophils 7.85 k/cumm (1.2-6.7) H 02/07/19 06:30 Absolute Lymphocytes 0.72 k/cumm (1.2-3.4) L 02/07/19 06:30 Absolute Monocytes 0.16 k/cumm (0.11-0.7) 02/07/19 06:30 Absolute Eosinophils 0.07 k/cumm (0.0-0.7) 02/07/19 06:30 Absolute Basophils 0.03 k/cumm (0.0-0.2) 02/07/19 06:30 Differential Comment Rbc morph reviewed 02/03/19 05:50 RBC Morphology See below 02/03/19 05:50 Polychromasia Present 02/03/19 05:50 Hypochromasia 1+ 02/03/19 05:50 Poikilocytosis 1+ 02/03/19 05:50 Basophilic Stippling Present 02/03/19 05:50 Macrocytosis 1+ 02/03/19 05:50 PT 11.6 sec (9.3-11.0) H 02/02/19 17:57 INR 1.2 (0.9-1.1) H 02/02/19 17:57 APTT 27.0 sec (21.0-31.4) 02/02/19 17:57 Sodium 138 mmol/L (136-145) 02/07/19 06:30 Potassium 4.9 mmol/L (3.5-5.1) 02/07/19 06:30 Chloride 102 mmol/L (98-107) 02/07/19 06:30 Carbon Dioxide 30.0 mmol/L (21.0-32.0) 02/07/19 06:30 Anion Gap 6.0 mmol/L (3-11) 02/07/19 06:30 BUN 35 mg/dL (7-18) H 02/07/19 06:30 Creatinine 1.54 mg/dL (0.55-1.02) H 02/07/19 06:30 Estimated GFR/1.73 m2 33.70 (mL/min/1.73m2) 02/07/19 06:30 Glucose 254 mg/dL (70-100) H 02/07/19 06:30 Lactate 0.9 mmol/l (0.6-1.4) 02/04/19 12:25 Calcium 9.3 mg/dL (8.5-10.1) 02/07/19 06:30 Magnesium 1.9 mg/dL (1.8-2.4) 02/07/19 06:30 Iron 8 ug/dL (50-175) L 02/04/19 07:15 TIBC 251 ug/dL (250-450) 02/04/19 07:15 Transferrin % Sat 3 % (15-50) L 02/04/19 07:15 Ferritin 171 ng/mL (8-388) 02/04/19 07:15 Total Bilirubin 0.8 mg/dL (0.2-1.0) 02/02/19 17:57 AST 11 U/L (15-37) L 02/02/19 17:57 ALT 29 U/L (12-78) 02/02/19 17:57 Alkaline Phosphatase 124 U/L (46-116) H 02/02/19 17:57 Troponin I 0.16 ng/mL (0.00-0.06) H* 02/04/19 21:10 NT-Pro-B Natriuret Pep 5237 pg/mL (-299) H 02/04/19 07:15 Total Protein 7.0 g/dL (6.4-8.2) 02/02/19 17:57 Albumin 2.8 g/dL (3.4-5.0) L 02/02/19 17:57 Vitamin B12 1844 pg/mL (193-986) H 02/04/19 07:15 Folate > 20.0 ng/mL (8.6-20.0) H 02/04/19 07:15 Procalcitonin < 0.1 ng/mL 02/06/19 06:25 TSH 0.97 uIU/mL (0.358-3.74) 02/02/19 17:57 Urine Color Yellow (Yellow) 02/02/19 20:11 Urine Clarity Sl cloudy 02/02/19 20:11 Urine pH 5.5 (5-8) 02/02/19 20:11 Ur Specific [place] 1.015 (1.005-1.025) 02/02/19 20:11 Urine Protein 30 mg/dL (Negative) H 02/02/19 20:11 Urine Ketones Negative mg/dL (Negative) 02/02/19 20:11 Urine Blood Moderate (Negative) H 02/02/19 20:11 Urine Nitrite Negative (Negative) 02/02/19 20:11 Urine Bilirubin Negative (Negative) 02/02/19 20:11 Urine Urobilinogen 0.2 EU/dL (Up TO 0.2) 02/02/19 20:11 Ur Leukocyte Esterase Moderate (Negative) H 02/02/19 20:11 Urine RBC 10-20 (0-2) H 02/02/19 20:11 Urine WBC 10-20 HPF (0-5) 02/02/19 20:11 Ur Epithelial Cells Many HPF (Negative) 02/02/19 20:11 Urine Crystals Negative HPF (Negative) 02/02/19 20:11 Urine Bacteria Few HPF (Negative) 02/02/19 20:11 Urine Casts Negative LPF (Negative) 02/02/19 20:11 Urine Mucus Negative (Negative) 02/02/19 20:11 Urine Other (Negative) 02/02/19 20:11 Ur Culture Indicated? C&s done as ordered 02/02/19 20:11 Urine Glucose Negative mg/dL (Negative) 02/02/19 20:11 Vancomycin Trough 23.7 ug/mL (10.0-20.0) H* 02/06/19 11:08 Legionella Source (see note) 02/03/19 22:10 Legionella Reprt Status (see note) 02/03/19 22:10 Legionella Final Result (see note) 02/03/19 22:10 Ur Strep pneumoniae Ag Negative (Negative) 02/03/19 22:10
--- NOTE | 2019-02-07 12:32 | PGE_ITS ---
Date of Service Date of service: 02/07/19 Time of Service: 12:26 Assessment and Plan (1) HCAP (healthcare-associated pneumonia): Current visit: Yes Status: Acute Likely on the basis of incomplete treatment of prior infection, now with bibasilar infiltrates, leukocytosis, and hypoxia concerning for infection. Currently on Vancomycin, Pip-Tazo, and Doxycycline day #5. Sputum Culture with normal aurora and Phoebe, and one set of blood cultures with growth of a Gram + Cocci in pairs on Gram stain - thought potentially due to contamination with cultures showing no growth. Also with concurrent UTI but with Urine Cultures showing only 10-50,000 of mixed gram positive aurora, thought possible contaminant as well. Procalcitonin levels decreased from and admission value of 0.7 to undetectable yesterday. Continued dyspnea was on the basis of volume overload, with elevated CVP and CXR findings of worsening effusion and congestion. Responding well to diuresis with lasix gtt - plan will be to price changer to IV Furosemide potentially later today, continue to monitor I/O's carefully, and monitor daily weights. Given history of COPD and presence of diminished breath sounds with faint wheezing was also started on steroids, which will be slowly tapered off. (2) UTI (urinary tract infection): Current visit: Yes Status: Acute Culture with potential contaminent. (3) CKD (chronic kidney disease) stage 3, GFR 30-59 ml/min: Current visit: No Status: Chronic Creatinine at baseline, with gentle IVFs given due to contrast adminis tration at time of admission as well as initial hypotension. Currently fluid overloaded clinically - undergoing diuresis as above. (4) Atrial flutter: Current visit: Yes Status: Acute History of PAF, not on anticoagulation following excision of the PINEDA at the time of her CABG. Currently with mildly rapid rates but off cardizem gtt - continue to titrate oral BB with IV Lopressor prn, and initiate oral Cardizem. Rapid Atrial Flutter occured in the setting of acute infection and hypoxia. Continue to replete electrolytes, treat infection and hypoxia, diurese, and monitor on telemetry. Qualifiers: Atrial flutter type: typical Qualified Code(s): I48.3 - Typical atrial flutter (5) CAD (coronary artery disease): Current visit: Yes Status: Chronic S/p CABG in December - patient with minimal, equivocal elevation in troponin in setting of infection, rapid atrial flutter, and poor renal clearance. Likely demand ischemia. Troponin continued to downtrend, ECG is non-ischemic (TW Inversions laterally appear to be chronic) and patient is asymptomatic. Continue BB, ASA, high potency statin. Patient's GERD like symptoms did not relieve with NTG, but have abated with addition of PPI and TUMS. Hemoglobin had dropped as well, but stable - Stool negative for occult blood. Continue IV PPI, and add carafate. (6) S/P CABG (coronary artery bypass graft): Current visit: No Status: Chronic 12/2018. (7) Diabetes mellitus: Current visit: No Status: Chronic Currently on Victoza. Also on ISS. 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 (9) Essential hypertension: Current visit: No Status: Chronic Currently on BB as above. (10) DVT prophylaxis: Current visit: Yes Status: Acute On SC Heparin. Continue SCDs, TEDs. (11) Advance directive on file: Current visit: Yes Status: Acute Full Code. Subjective Interval history since last seen: 68 year old woman with a history of recent hospitalizations and treatment for Pneumonia, admitted 02/02 from [facility] Emergency Department with a diagnosis of Pneumonia. Mrs. Griggs has a Past Medical History significant for CKD, Obesity, DM, COPD, depression, gout, RLS, and spinal stenosis. She also had known CAD, s/p 3 vessel [place] [facility] [place] following an NSTEMI. She also has a prior history of PAF, for which she underwent excision of her Left Atrial Appendage at the time of her CABG, and now remains off anticoagulation. Following her surgery the patient was discharged to [facility], prior to being admitted at [facility] with a diagnosis of Healthcare Aquired Pneumonia between 01/15 and 01/22/2019. She was treated with Vancomycin for 3 days, discontinued due to a negative MRSA Swab, as well as Pip-Tazo for 7 days. She was discharged home on a tapering dose of prednisone. She presented back to the ED with complaints of left sided pleuritic CP and dyspnea. She was found to be in Atrial Flutter with a rapid rate and hypoxic, with subsequent CTA of the chest showing evidence of bibasilar infiltrates without evidence of a PE. Work-up showed evidence of an elevated lactate, leukocytosis, as well as a potential UTI by urinalysis. She also had a mild and equivocal elevation in troponin. At that time the patient was referred for admission for further evaluation and treatment. Since admission Mrs Griggs's breathing initially improved, then worsened again. Further work-up revealed evidence of worsening CXR findings of volume overload, and an elevated CVP at 24 - Procalcitonin has become undetectable. She had received diuretic therapy with some improvement, but remained dyspneic - following initiation of a lasix drip Mrs. Griggs has diuresed significantly, and feels vastly improved today. Her renal function remains intact, and her weight is down. Her HR continues to be elevated off Cardizem gtt. She was previously complaining of significant heart burn type symptoms, which was her anginal equivalent. Repeat ECG remained unchanged from her prior, repeat troponins continued to downtrend, and NTG did not take away her burning sensation. She previously reported resolution of her symptoms with addition of Tums, PPI, and carafate - Her Hemoccult was negative, and her H/H remains low but stable. She remains afebrile, with a resolved leukocytosis and now undetectable Procalcitonin. No other overnight events reported. Exam Narrative Exam Narrative: General: Patient appears comfortable, AAOX3, NAD Skin: Midline Sternotomy scar appears well healing Neck: Supple CV: Regular, remains mildly tachycardic, S1S2, No murmur. In atrial flutter by monitor. Pulmonary: Bibasilar crackles, worse on the right, vastly imporved. Now with only minimal wheezing noted at the right base. Previously noted decreased breath sounds diffusely, now with improved air entry. Abdomen: + Bowel Sounds, soft, nontender, nondistended Vascular: Mild b/l lower extremity edema Psych: Normal mood and affect. Objective Objective Clinical Data: Abnormal lab results 02/07/19 02/07/19 Range/Units 06:30 06:30 RBC 2.99 L (4.00-5.20) m/cumm Hgb 8.7 L (12.0-15.5) g/dL Hct 29.4 L (36.0-46.0) % MCV 98.3 H (80-95) fL MCHC 29.6 L (32.0-36.0) g/dL RDW 14.7 H (11.7-14.6) % Absolute Neutrophils 7.85 H (1.2-6.7) k/cumm Absolute Lymphocytes 0.72 L (1.2-3.4) k/cumm BUN 35 H (7-18) mg/dL Creatinine 1.54 H (0.55-1.02) mg/dL Glucose 254 H (70-100) mg/dL Vital Signs Temperature 36.7 C 02/07/19 08:10 Temperature Source Temporal Artery Scan 02/07/19 08:10 Pulse 131 H 02/07/19 07:53 Pulse 117 H 02/07/19 10:40 Respiratory Rate 27 H 02/07/19 10:40 Respiratory Effort 02/07/19 08:10 Respiratory Depth Normal 02/07/19 08:10 Respiratory Pattern Normal 02/07/19 08:10 Blood Pressure 113/87 02/07/19 07:53 Blood Pressure Mean 93 02/07/19 07:53 Blood Pressure Position Sitting 02/07/19 08:10 Pulse Oximetry 95 02/07/19 10:40 Oxygen Delivery Method Nasal Cannula 02/07/19 08:27 Oxygen Flow Rate 1 02/07/19 08:27 Pain Level 0 02/07/19 08:10 Intake & Output 02/06/19 02/07/19 02/07/19 23:59 11:59 23:59 Intake Total 1425.475 / 1983.183 760 / 760 Output Total 3100 / 3950 1000 / 1000 Balance -1674.525 / -1966.817 -240 / -240 Weight 128.1 kg Intake: IV 325.475 / 643.183 350 / 350 Oral 1100 / 1340 410 / 410 Output: Urine 3100 / 3950 1000 / 1000 Other: Urine Color Pale Pale Yellow Yellow Urine Appearance Clear Clear Comment Gonzalez in place. Placed a new catheter. The old catheter had a large blood clot in the gonzalez and urine was leaking around it. The catheter fell out on its own and was replaced without difficulty. Amount approximated Laboratory Results WBC 8.86 k/cumm (4.4-10.8) 02/07/19 06:30 RBC 2.99 m/cumm (4.00-5.20) L 02/07/19 06:30 Hgb 8.7 g/dL (12.0-15.5) L 02/07/19 06:30 Hct 29.4 % (36.0-46.0) L 02/07/19 06:30 MCV 98.3 fL (80-95) H 02/07/19 06:30 MCH 29.1 pg (27.0-33.0) 02/07/19 06:30 MCHC 29.6 g/dL (32.0-36.0) L 02/07/19 06:30 RDW 14.7 % (11.7-14.6) H 02/07/19 06:30 Plt Count 358 x1000/uL (130-400) 02/07/19 06:30 MPV 9.7 fL (8.0-11.0) 02/07/19 06:30 Immature Gran % 0.3 02/07/19 06:30 Neutrophils % 88.7 02/07/19 06:30 Lymphocytes % 8.1 02/07/19 06:30 Monocytes % 1.8 02/07/19 06:30 Eosinophils % 0.8 02/07/19 06:30 Basophils % 0.3 02/07/19 06:30 Absolute Neutrophils 7.85 k/cumm (1.2-6.7) H 02/07/19 06:30 Absolute Lymphocytes 0.72 k/cumm (1.2-3.4) L 02/07/19 06:30 Absolute Monocytes 0.16 k/cumm (0.11-0.7) 02/07/19 06:30 Absolute Eosinophils 0.07 k/cumm (0.0-0.7) 02/07/19 06:30 Absolute Basophils 0.03 k/cumm (0.0-0.2) 02/07/19 06:30 Differential Comment Rbc morph reviewed 02/03/19 05:50 RBC Morphology See below 02/03/19 05:50 Polychromasia Present 02/03/19 05:50 Hypochromasia 1+ 02/03/19 05:50 Poikilocytosis 1+ 02/03/19 05:50 Basophilic Stippling Present 02/03/19 05:50 Macrocytosis 1+ 05/26/19 05:50 PT 11.6 sec (9.3-11.0) H 02/02/19 17:57 INR 1.2 (0.9-1.1) H 02/02/19 17:57 APTT 27.0 sec (21.0-31.4) 02/02/19 17:57 Sodium 138 mmol/L (136-145) 02/07/19 06:30 Potassium 4.9 mmol/L (3.5-5.1) 02/07/19 06:30 Chloride 102 mmol/L (98-107) 02/07/19 06:30 Carbon Dioxide 30.0 mmol/L (21.0-32.0) 02/07/19 06:30 Anion Gap 6.0 mmol/L (3-11) 02/07/19 06:30 BUN 35 mg/dL (7-18) H 02/07/19 06:30 Creatinine 1.54 mg/dL (0.55-1.02) H 02/07/19 06:30 Estimated GFR/1.73 m2 33.70 (mL/min/1.73m2) 02/07/19 06:30 Glucose 254 mg/dL (70-100) H 02/07/19 06:30 Lactate 0.9 mmol/l (0.6-1.4) 02/04/19 12:25 Calcium 9.3 mg/dL (8.5-10.1) 02/07/19 06:30 Magnesium 1.9 mg/dL (1.8-2.4) 02/07/19 06:30 Iron 8 ug/dL (50-175) L 02/04/19 07:15 TIBC 251 ug/dL (250-450) 02/04/19 07:15 Transferrin % Sat 3 % (15-50) L 02/04/19 07:15 Ferritin 171 ng/mL (8-388) 02/04/19 07:15 Total Bilirubin 0.8 mg/dL (0.2-1.0) 02/02/19 17:57 AST 11 U/L (15-37) L 02/02/19 17:57 ALT 29 U/L (12-78) 02/02/19 17:57 Alkaline Phosphatase 124 U/L (46-116) H 02/02/19 17:57 Troponin I 0.16 ng/mL (0.00-0.06) H* 02/04/19 21:10 NT-Pro-B Natriuret Pep 5237 pg/mL (-299) H 02/04/19 07:15 Total Protein 7.0 g/dL (6.4-8.2) 02/02/19 17:57 Albumin 2.8 g/dL (3.4-5.0) L 02/02/19 17:57 Vitamin B12 1844 pg/mL (193-986) H 02/04/19 07:15 Folate > 20.0 ng/mL (8.6-20.0) H 02/04/19 07:15 Procalcitonin < 0.1 ng/mL 02/06/19 06:25 TSH 0.97 uIU/mL (0.358-3.74) 02/02/19 17:57 Urine Color Yellow (Yellow) 02/02/19 20:11 Urine Clarity Sl cloudy 02/02/19 20:11 Urine pH 5.5 (5-8) 02/02/19 20:11 Ur Specific [place] 1.015 (1.005-1.025) 02/02/19 20:11 Urine Protein 30 mg/dL (Negative) H 02/02/19 20:11 Urine Ketones Negative mg/dL (Negative) 02/02/19 20:11 Urine Blood Moderate (Negative) H 02/02/19 20:11 Urine Nitrite Negative (Negative) 02/02/19 20:11 Urine Bilirubin Negative (Negative) 02/02/19 20:11 Urine Urobilinogen 0.2 EU/dL (Up TO 0.2) 02/02/19 20:11 Ur Leukocyte Esterase Moderate (Negative) H 02/02/19 20:11 Urine RBC 10-20 (0-2) H 02/02/19 20:11 Urine WBC 10-20 HPF (0-5) 02/02/19 20:11 Ur Epithelial Cells Many HPF (Negative) 02/02/19 20:11 Urine Crystals Negative HPF (Negative) 02/02/19 20:11 Urine Bacteria Few HPF (Negative) 02/02/19 20:11 Urine Casts Negative LPF (Negative) 02/02/19 20:11 Urine Mucus Negative (Negative) 02/02/19 20:11 Urine Other (Negative) 02/02/19 20:11 Ur Culture Indicated? C&s done as ordered 02/02/19 20:11 Urine Glucose Negative mg/dL (Negative) 02/02/19 20:11 Vancomycin Trough 23.7 ug/mL (10.0-20.0) H* 02/06/19 11:08 Legionella Source (see note) 02/03/19 22:10 Legionella Reprt Status (see note) 02/03/19 22:10 Legionella Final Result (see note) 02/03/19 22:10 Ur Strep pneumoniae Ag Negative (Negative) 02/03/19 22:10
[2019-02-07] MEDS: Normal Saline 500 ML 12.5 ML IV (20:36)
[2019-02-07] MEDS: rOPINIRole 0.5 MG TAB 2 MG PO (21:20)
[2019-02-08] VITALS (74 sets, daily range): BP systolic 108–125; BP diastolic 56–96; PULSE 75–129; RESP 16–30; TEMP 36.4–36.8; O2SAT 90–98
[2019-02-08] MEDS: Heparin 5,000 UNITS/ML VIAL 5000 UNITS SC ×3 (02:09→17:11)
[2019-02-08] MEDS: PIPERACILLIN/TAZO 3.375 GM in Normal Saline 50 ML IVPB (04:31)
[2019-02-08] MEDS: Metoprolol 50 MG TAB PO ×3 (04:31→20:16)
[2019-02-08] MEDS: dilTIAZem 30 MG TAB PO (06:14)
[2019-02-08] MEDS: Normal Saline Flush 10 ML SYR IVP ×4 (06:14→20:28)
[2019-02-08 07:20] LABS: Anion Gap 5.7 mmol/L (3-11); BUN 39 mg/dL (7-18); CO2 29.3 mmol/L (21.0-32.0); CREATININE 1.62 mg/dL (0.55-1.02); Calcium 9.1 mg/dL (8.5-10.1); Chloride 102 mmol/L (98-107); Estimated GFR 31.79 (mL/min/1.73m2); Glucose 286 mg/dL (70-100); Magnesium 1.7 mg/dL (1.8-2.4); Potassium 4.7 mmol/L (3.5-5.1); Sodium 137 mmol/L (136-145)
[2019-02-08 07:21] LABS: Abs Immature Grans 0.08 k/cumm (0.0-0.09); Absolute Basophil Count 0.01 k/cumm (0.0-0.2); Absolute Eosinophil Count 0.01 k/cumm (0.0-0.7); Absolute Lymphocyte Count 0.93 k/cumm (1.2-3.4); Absolute Monocyte Count 0.39 k/cumm (0.11-0.7); Absolute Neutrophil Count 13.52 k/cumm (1.2-6.7); Basophils % 0.1; Eosinophils % 0.1; HCT 27.8 % (36.0-46.0); HGB 8.3 g/dL (12.0-15.5); Immature Grans % 0.5; Lymphocytes % 6.2; Mean Corp. HGB Concentration 29.9 g/dL (32.0-36.0); Mean Corpuscular Volume 97.2 fL (80-95); Mean Platelet Volume 9.7 fL (8.0-11.0); Monocytes % 2.6; Neutrophils % 90.5; Platelet Count 404 x1000/uL (130-400); RBC 2.86 m/cumm (4.00-5.20); RBC Distribution Width 14.7 % (11.7-14.6); White Blood Cell Count 14.94 k/cumm (4.4-10.8)
--- NOTE | 2019-02-08 07:43 | W.PM.PROGNOT ---
Date of Service Date of service: 02/08/19 Time of Service: 12:45 Assessment and Plan (1) HCAP (healthcare-associated pneumonia): Current visit: Yes Status: Acute Likely on the basis of incomplete treatment of prior infection, now with bibasilar infiltrates, leukocytosis, and hypoxia concerning for infection. Received a 5 day course of Vancomycin, Pip-Tazo, and Doxycycline - Procalcitonin levels 0.7 --> Undetectable between admission and 02/06. Sputum Culture with normal aurora and Phoebe, and one set of blood cultures with growth of a Gram + Cocci in pairs on Gram stain - thought potentially due to contamination with cultures showing no growth. Also with concurrent UTI but with Urine Cultures showing only 10-50,000 of mixed gram positive aurora, thought possible contaminant as well. Continued dyspnea was on the basis of volume overload, with elevated CVP and CXR findings of worsening effusion and congestion. Responding well to diuresis with lasix gtt - Currently improved clinically. Discontinue Furosemide drip and change to IV Formulation for continued diuresis, with plans to change to oral formulation soon. Continue to monitor I/O's, weight. Given history of COPD and presence of diminished breath sounds with faint wheezing was also started on steroids, which will be slowly tapered off. Exam and symptoms vastly improved. (2) UTI (urinary tract infection): Current visit: Yes Status: Acute Culture with potential contaminent. (3) CKD (chronic kidney disease) stage 3, GFR 30-59 ml/min: Current visit: No Status: Chronic Creatinine at baseline. (4) Atrial flutter: Current visit: Yes Status: Acute History of PAF, not on anticoagulation following excision of the PINEDA at the time of her CABG. Currently with mild but continued rapid rates off cardizem gtt - continue oral BB with IV Lopressor prn, and titrate oral Cardizem. Rapid Atrial Flutter occured in the setting of acute infection and hypoxia. Continue to replete electrolytes, treat infection and hypoxia, diurese, and monitor on telemetry. Qualifiers: Atrial flutter type: typical Qualified Code(s): I48.3 - Typical atrial flutter (5) CAD (coronary artery disease): Current visit: Yes Status: Chronic S/p CABG in December - patient with minimal, equivocal elevation in troponin in setting of infection, rapid atrial flutter, and poor renal clearance. Likely demand ischemia. Troponin continued to downtrend, ECG checked and non-ischemic (TW Inversions laterally appear to be chronic) and patient remained asymptomatic. Continue BB, ASA, high potency statin. Patient's GERD like symptoms did not relieve with NTG, but have abated with addition of PPI and TUMS. Hemoglobin had dropped as well, but stable - Stool negative for occult blood. Continue IV PPI, with added carafate. (6) S/P CABG (coronary artery bypass graft): Current visit: No Status: Chronic At [facility] 12/2018. (7) Diabetes mellitus: Current visit: No Status: Chronic Not taking Victoza as inpatient. Continue ISS. Qualifiers: Diabetes mellitus complication detail: with chronic kidney disease Diabetes mellitus complication status: with kidney complications Diabetes mellitus termite technician insulin use: without termite technician use Diabetes mellitus type: type 2 (8) Hyperlipidemia: Current visit: No Status: Chronic Continue Atorvastatin. (9) Essential hypertension: Current visit: No Status: Chronic Currently on BB, Cardizem as above. (10) DVT prophylaxis: Current visit: Yes Status: Acute On SC Heparin. Continue SCDs, TEDs. (11) Advance directive on file: Current visit: Yes Status: Acute Full Code. Subjective Interval history since last seen: 68 year old woman with a history of recent hospitalizations and treatment for Pneumonia, admitted 02/02 from [facility] Emergency Department with a diagnosis of Pneumonia. Mrs. Griggs has a Past Medical History significant for CKD, Obesity, DM, COPD, depression, gout, RLS, and spinal stenosis. She also had known CAD, s/p 3 vessel CABG at [facility] in December of 2018 following an NSTEMI. She also has a prior history of PAF, for which she underwent excision of her Left Atrial Appendage at the time of her CABG, and now remains off anticoagulation. Following her surgery the patient was discharged to [facility], prior to being admitted at [facility] with a diagnosis of Healthcare Aquired Pneumonia between 01/15 and 01/22/2019. She was treated with Vancomycin for 3 days, discontinued due to a negative MRSA Swab, as well as Pip-Tazo for 7 days. She was discharged home on a tapering dose of prednisone. She presented back to the ED with complaints of left sided pleuritic CP and dyspnea. She was found to be in Atrial Flutter with a rapid rate and hypoxic, with subsequent CTA of the chest showing evidence of bibasilar infiltrates without evidence of a PE. Work-up showed evidence of an elevated lactate, leukocytosis, as well as a potential UTI by urinalysis. She also had a mild and equivocal elevation in troponin. At that time the patient was referred for admission for further evaluation and treatment. Since admission Mrs Griggs's breathing initially improved, then worsened again. Further work-up revealed evidence of worsening CXR findings of volume overload, and an elevated CVP at 24 - Procalcitonin was repeated and had become undetectable. She had received diuretic therapy with some improvement, but remained dyspneic - following initiation of a lasix drip Mrs. Griggs has diuresed well and feels vastly improved. Her renal function remains stable, and her weight is down. Her HR continues to be elevated off Cardizem gtt but improving. She was previously complaining of significant heart burn type symptoms, which was her anginal equivalent. Repeat ECG remained unchanged from her prior, repeat troponins continued to downtrend, and NTG did not take away her burning sensation. She previously reported resolution of her symptoms with addition of Tums, PPI, and carafate - Her Hemoccult was negative, and her H/H remains low but stable. She remains afebrile, and now undetectable Procalcitonin. No other overnight events reported. Exam Narrative Exam Narrative: General: Patient appears comfortable, AAOX3, NAD Skin: Midline Sternotomy scar appears well healing Neck: Supple CV: Regular, remains mildly tachycardic, S1S2, No murmur. In atrial flutter by monitor. Pulmonary: Bibasilar crackles appear essentially , worse on the right, vastly imporved. Now with only minimal wheezing noted at the right base. Previously noted decreased breath sounds diffusely, now with improved air entry. Abdomen: + Bowel Sounds, soft, nontender, nondistended Vascular: Mild b/l lower extremity edema Psych: Normal mood and affect. Objective Objective Clinical Data: Abnormal lab results 02/08/19 02/08/19 Range/Units 06:15 06:15 WBC 14.94 H D (4.4-10.8) k/cumm RBC 2.86 L (4.00-5.20) m/cumm Hgb 8.3 L (12.0-15.5) g/dL Hct 27.8 L (36.0-46.0) % MCV 97.2 H (80-95) fL MCHC 29.9 L (32.0-36.0) g/dL RDW 14.7 H (11.7-14.6) % Plt Count 404 H (130-400) x1000/uL Absolute Neutrophils 13.52 H (1.2-6.7) k/cumm Absolute Lymphocytes 0.93 L (1.2-3.4) k/cumm BUN 39 H (7-18) mg/dL Creatinine 1.62 H (0.55-1.02) mg/dL Glucose 286 H (70-100) mg/dL Magnesium 1.7 L (1.8-2.4) mg/dL Vital Signs Temperature 36.7 C 02/08/19 03:43 Temperature Source Temporal Artery Scan 02/08/19 03:43 Pulse 75 02/08/19 02:00 Pulse 95 H 02/08/19 02:00 Respiratory Rate 21 02/08/19 02:00 Respiratory Effort 02/08/19 03:43 Respiratory Depth Normal 02/08/19 03:43 Respiratory Pattern Normal 02/08/19 03:43 Blood Pressure 111/60 02/08/19 02:00 Blood Pressure Mean 71 02/08/19 02:00 Blood Pressure Position Supine 02/08/19 03:43 Pulse Oximetry 95 02/08/19 06:51 Oxygen Delivery Method Nasal Cannula 02/08/19 06:51 Oxygen Flow Rate 1 02/08/19 06:51 Pain Level 0 02/08/19 03:43 Intake & Output 02/07/19 02/07/19 02/08/19 11:59 23:59 11:59 Intake Total 760 / 1511.683 751.683 / 1511.683 50 / 50 Output Total 1000 / 1850 850 / 1850 650 / 650 Balance -240 / -338.317 -98.317 / -338.317 -600 / -600 Weight 128.1 kg 123.7 kg Intake: IV 350 / 421.683 71.683 / 421.683 50 / 50 Oral 410 / 1090 680 / 1090 Output: Urine 1000 / 1850 850 / 1850 650 / 650 Other: Urine Color Pale Yellow Yellow Yellow Urine Appearance Clear Clear Clear Sediment Comment Placed a new catheter. The old catheter had a large blood clot in the gonzalez and urine was leaking around it. The catheter fell out on its own and was replaced without difficulty. Amount approximated Gonzalez in place Gonzalez in place draining clear yellow urine. Laboratory Results WBC 14.94 k/cumm (4.4-10.8) H D 02/08/19 06:15 RBC 2.86 m/cumm (4.00-5.20) L 02/08/19 06:15 Hgb 8.3 g/dL (12.0-15.5) L 02/08/19 06:15 Hct 27.8 % (36.0-46.0) L 02/08/19 06:15 MCV 97.2 fL (80-95) H 02/08/19 06:15 MCH 29.0 pg (27.0-33.0) 02/08/19 06:15 MCHC 29.9 g/dL (32.0-36.0) L 02/08/19 06:15 RDW 14.7 % (11.7-14.6) H 02/08/19 06:15 Plt Count 404 x1000/uL (130-400) H 02/08/19 06:15 MPV 9.7 fL (8.0-11.0) 02/08/19 06:15 Immature Gran % 0.5 02/08/19 06:15 Neutrophils % 90.5 02/08/19 06:15 Lymphocytes % 6.2 02/08/19 06:15 Monocytes % 2.6 02/08/19 06:15 Eosinophils % 0.1 02/08/19 06:15 Basophils % 0.1 02/08/19 06:15 Absolute Neutrophils 13.52 k/cumm (1.2-6.7) H 02/08/19 06:15 Absolute Lymphocytes 0.93 k/cumm (1.2-3.4) L 02/08/19 06:15 Absolute Monocytes 0.39 k/cumm (0.11-0.7) 02/08/19 06:15 Absolute Eosinophils 0.01 k/cumm (0.0-0.7) 02/08/19 06:15 Absolute Basophils 0.01 k/cumm (0.0-0.2) 02/08/19 06:15 Differential Comment Rbc morph reviewed 02/03/19 05:50 RBC Morphology See below 02/03/19 05:50 Polychromasia Present 02/03/19 05:50 Hypochromasia 1+ 02/03/19 05:50 Poikilocytosis 1+ 02/03/19 05:50 Basophilic Stippling Present 02/03/19 05:50 Macrocytosis 1+ 02/03/19 05:50 PT 11.6 sec (9.3-11.0) H 02/02/19 17:57 INR 1.2 (0.9-1.1) H 02/02/19 17:57 APTT 27.0 sec (21.0-31.4) 02/02/19 17:57 Sodium 137 mmol/L (136-145) 02/08/19 06:15 Potassium 4.7 mmol/L (3.5-5.1) 02/08/19 06:15 Chloride 102 mmol/L (98-107) 02/08/19 06:15 Carbon Dioxide 29.3 mmol/L (21.0-32.0) 02/08/19 06:15 Anion Gap 5.7 mmol/L (3-11) 02/08/19 06:15 BUN 39 mg/dL (7-18) H 02/08/19 06:15 Creatinine 1.62 mg/dL (0.55-1.02) H 02/08/19 06:15 Estimated GFR/1.73 m2 31.79 (mL/min/1.73m2) 02/08/19 06:15 Glucose 286 mg/dL (70-100) H 02/08/19 06:15 Lactate 0.9 mmol/l (0.6-1.4) 02/04/19 12:25 Calcium 9.1 mg/dL (8.5-10.1) 02/08/19 06:15 Magnesium 1.7 mg/dL (1.8-2.4) L 02/08/19 06:15 Iron 8 ug/dL (50-175) L 02/04/19 07:15 TIBC 251 ug/dL (250-450) 02/04/19 07:15 Transferrin % Sat 3 % (15-50) L 02/04/19 07:15 Ferritin 171 ng/mL (8-388) 02/04/19 07:15 Total Bilirubin 0.8 mg/dL (0.2-1.0) 02/02/19 17:57 AST 11 U/L (15-37) L 02/02/19 17:57 ALT 29 U/L (12-78) 02/02/19 17:57 Alkaline Phosphatase 124 U/L (46-116) H 02/02/19 17:57 Troponin I 0.16 ng/mL (0.00-0.06) H* 02/04/19 21:10 NT-Pro-B Natriuret Pep 5237 pg/mL (-299) H 02/04/19 07:15 Total Protein 7.0 g/dL (6.4-8.2) 02/02/19 17:57 Albumin 2.8 g/dL (3.4-5.0) L 02/02/19 17:57 Vitamin B12 1844 pg/mL (193-986) H 02/04/19 07:15 Folate > 20.0 ng/mL (8.6-20.0) H 02/04/19 07:15 Procalcitonin < 0.1 ng/mL 02/06/19 06:25 TSH 0.97 uIU/mL (0.358-3.74) 02/02/19 17:57 Urine Color Yellow (Yellow) 02/02/19 20:11 Urine Clarity Sl cloudy 02/02/19 20:11 Urine pH 5.5 (5-8) 02/02/19 20:11 Ur Specific [place] 1.015 (1.005-1.025) 02/02/19 20:11 Urine Protein 30 mg/dL (Negative) H 02/02/19 20:11 Urine Ketones Negative mg/dL (Negative) 02/02/19 20:11 Urine Blood Moderate (Negative) H 02/02/19 20:11 Urine Nitrite Negative (Negative) 02/02/19 20:11 Urine Bilirubin Negative (Negative) 02/02/19 20:11 Urine Urobilinogen 0.2 EU/dL (Up TO 0.2) 02/02/19 20:11 Ur Leukocyte Esterase Moderate (Negative) H 02/02/19 20:11 Urine RBC 10-20 (0-2) H 02/02/19 20:11 Urine WBC 10-20 HPF (0-5) 02/02/19 20:11 Ur Epithelial Cells Many HPF (Negative) 02/02/19 20:11 Urine Crystals Negative HPF (Negative) 02/02/19 20:11 Urine Bacteria Few HPF (Negative) 02/02/19 20:11 Urine Casts Negative LPF (Negative) 02/02/19 20:11 Urine Mucus Negative (Negative) 02/02/19 20:11 Urine Other (Negative) 02/02/19 20:11 Ur Culture Indicated? C&s done as ordered 02/02/19 20:11 Urine Glucose Negative mg/dL (Negative) 02/02/19 20:11 Vancomycin Trough 23.7 ug/mL (10.0-20.0) H* 02/06/19 11:08 Legionella Source (see note) 02/03/19 22:10 Legionella Reprt Status (see note) 02/03/19 22:10 Legionella Final Result (see note) 02/03/19 22:10 M. pneumoniae Source sputum 02/03/19 06:15 M. pneumoniae (PCR) Negative 02/03/19 06:15 Ur Strep pneumoniae Ag Negative (Negative) 02/03/19 22:10
[2019-02-08] MEDS: Cyanocobalamin 500 MCG TAB 1000 MCG PO (08:01)
[2019-02-08] MEDS: Folic Acid 1 MG TAB PO (08:01)
[2019-02-08] MEDS: Sucralfate 1 GM TAB PO ×4 (08:01→21:47)
[2019-02-08] MEDS: Doxycycline Hyclate 100 MG CAP PO (08:01)
[2019-02-08] MEDS: DULoxetine 30 MG CAP 60 MG PO (08:01)
[2019-02-08] MEDS: Aspirin E.C. 81 MG TABEC PO (08:01)
[2019-02-08] MEDS: Gabapentin 600 MG TAB PO ×3 (08:01→20:16)
[2019-02-08] MEDS: Calcium 600mg/Vit D 200U TAB 2 TAB PO ×2 (08:01→20:17)
[2019-02-08] MEDS: Atorvastatin 40 MG TAB PO (08:02)
[2019-02-08] MEDS: Allopurinol 100 MG TAB PO (08:02)
[2019-02-08] MEDS: Ergocalciferol 50000 UNITS CAP PO (08:02)
[2019-02-08] MEDS: Insulin Aspart 300 UNITS/3 ML PEN SC ×4 (08:02→22:08)
--- NOTE | 2019-02-08 08:13 | PDOC.CMPRO ---
Care Management Progress Note S/O: Ann-Marie has completed a five day round of three different IV antibiotics. She remains on oral steroids, a Lasix drip and per MD is diuresing well. She also remains on cardiac monitoring and per MD requires close monitoring of medication adjustments attempting to provide ongoing rate control. She continues to ambulate with nurses in the ICU, and per MD will begin working with PT today as well. Plan remains for Ann-Marie to return to her daughters home when she is ready for discharge. A: Ann-Marie is a 68 year old female admitted with Healthcare Acquired pneumonia with a history of multiple encounters with healthcare settings, COPD, recent CABG and DM. P: Ann-Marie will plan to discharged home when medically ready per provider. She will have resumption of home health services nursing, PT and OT upon discharge. She will be staying with her daughter December at time of discharge and her family will transport her home.
[2019-02-08] MEDS: predniSONE 20 MG TAB PO ×2 (08:49→20:16)
[2019-02-08] MEDS: Budesonide/Formoterol 160/4.5 6 GM 60 PUFF INH IH ×2 (10:44→20:18)
--- NOTE | 2019-02-08 11:33 | IN_ITS ---
Date of service: 02/08/19 Time of Service: 09:23 PT Notes Inpatient Physical Therapy Evaluation Date: 02/08/2019 Referring Doctor: Oswald Cornell MD PT Orders: PT CONSULT: Eval/Treat Precautions: Fall. Standard. Median sternotomy precautions. Patient Profile/Admitting Diagnosis: Patient is a 68-year-old female who presented to the ED on 02/02/2019 with chief complaints of L-sided chest pain. Patient was diagnosed with Healthcare-acquired Pneumonia, Gram (+) Bacteremia, and Atrial Flutter. Skilled PT services were recently provided for this patient for rehabilitative management of CABG x 3 and HCAP when patient was previously admitted to this hospital from 01/16/2019 through 01/22/2019. 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) Chronic obstructive lung disease (Chronic) Atrial fibrillation (Chronic) Restless leg syndrome (Chronic) Essential hypertension (Chronic) Hyperlipidemia (Chronic) History of coronary artery disease (Chronic) Abnormal mammography (Resolved) Ankle pain (Resolved 03/13/14) Carpal tunnel syndrome (Resolved 08/10/06) Cervical disc disorder with myelopathy (Resolved 08/21/08) Chest pain (Resolved) Diabetes mellitus (Resolved) Folate deficiency (Resolved 02/15/16) Hepatomegaly (Resolved) Hip joint inflamed (Resolved 09/03/15) Low back pain (Resolved 04/10/03) Menopausal syndrome (Resolved) Muscle fatigue (Resolved) Posterior tibial tendon dysfunction (Resolved) Postmenopausal bleeding (Resolved) Postoperative wound dehiscence (Resolved 12/23/15) Primary osteoarthritis of left hip (Resolved 09/17/15) Renal impairment (Resolved 07/11/03) Rotator cuff syndrome (Resolved 08/01/09) Smoker (Resolved 06/30/16) Tarsal tunnel syndrome (Resolved) Trochanteric bursitis (Resolved) Upper respiratory tract infection (Resolved 08/03/15) Vitamin D deficiency (Resolved) Atrial fibrillation COPD (chronic obstructive pulmonary disease) Carpal tunnel syndrome Cervical spondylosis with myelopathy Diabetes mellitus Gout Hypertension Spinal stenosis of lumbar region at multiple levels Vitamin D deficiency Surgical History S/P CABG (coronary artery bypass graft) (Acute ~01/15/19) H/O Spinal surgery (Resolved) H/O arthrodesis (Resolved) History of bilateral tubal ligation (Resolved) History of gynecologic surgery (Resolved) History of hip surgery (Resolved) History of orthopedic surgery (Resolved) S/P carpal tunnel release (Resolved) S/P cholecystectomy (Resolved) S/P rotator cuff repair (Resolved) Status post incision and drainage (Resolved) Arthrodesis Cholecystectomy (07/31/13) Endometrial Biopsy Left eye surgery Ligation of fallopian tube (~1980) Open Carpal Tunnel release Right wrist surgery Rotator Cuff Repair (~1980) SPINE SURGERY Total replacement of hip cervical repair (~10/2008) tarsal tunnel release (~1997) Social History/Home Situation: Ann-Marie states that she was living in a community home renting a room prior to her CABGx3 and a short term stay at [facility]. She was independent with all aspects of ADLs without the need for use of assistive ambulatory device nor an adaptive equipment. She states that the daughter has a ramp to enter the house with rails on both sides. The ramp goes onto the porch that leads to the kitchen. She reports that the home was sold and her children moved all of her stuff out and rented a storage half-way. She notes that she left her in August and that she is (I) with all ADLs/IADLs at her baseline level of function. Patient reports that her plan is to move into her daughters home. She states that her daughter has a tub/shower with no grab bars but they can put one up. Equipment Owned/DME: 2-FWW, 2-shower chairs, 2-canes, grab bars, sock aid, shoe horns Subjective: Patient pleasant and cooperative. She is agreeable to PT consult and treatment today. Patient has good mastery of sternotomy precautions. She plans on going home to patient's house as soon as she is safe to do so. Objective: General Observation: Patient seen sitting on chair. Median sternotomy incision well approximated. Telemetry monitors on. Mental Status: Alert and oriented x4 Pain: 0/10 ROM: Right Upper Extremity: Shoulder movements done only up to limits of movement precautions related to median sternotomy. Elbow flexion WFL. Wrist flexion WFL. Functional opening and closing of hand WFL. Left Upper Extremity: Shoulder movements done only up to limits of movement precautions related to median sternotomy. Elbow flexion WFL. Wrist flexion WFL. Functional opening and closing of hand WFL. WFL. Ankle dorsiflexion WFL. Ankle plantarflexion WFL. Right Lower Extremity: Hip flexion 0-110 wth range limited by abdominal panniculus. Hip abduction WFL. Knee flexion WFL. Ankle dorsiflexion WFL. Ankle plantarflexion WFL. Left Lower Extremity: Hip flexion 0-110 with range limited by abdominal panniculus. Hip abduction WFL. Knee flexion WFL. Ankle dorsiflexion WFL. Ankle plantarflexion WFL. Strength: Right Upper Extremity: Shoulder muscles not tested as median sternotomy precautions are still in effect with CABG x 3 done on 01/03/2019. Elbow flexors 5/5. Elbow extensors 5/5. Smoking Pipe Mounter strong. Left Upper Extremity: Shoulder muscles not tested as median sternotomy precautions are still in effect with CABG x 3 done on 01/03/2019. Elbow flexors 5/5. Elbow extensors 5/5. Smoking Pipe Mounter strong. Right Lower Extremity: Hip flexors 3-/5. Hip abductors 4-/5. Knee flexors 4-/5. Knee extensors 5/5. Ankle dorsiflexors 5/5. Ankle plantarflexors 5/5. Left Lower Extremity:Hip flexors 3-/5. Hip abductors 4/5. Knee flexors 4+/5. Knee extensors 4+/5. Ankle dorsiflexors 5/5. Ankle plantarflexors 5/5. Sensation: Intact as to pain and pressure to BLEs Bed Mobility/Transfers: Rolling independent Supine to sit independent with head of bed between 30 to 45 degrees Sit to supine SBA Sit to stand SBA Stand to sit SBA Bed to chair SBA Chair to bed SBA Gait: Patient tolerated 150 feet using FWW and minimal cueing for energy conservation and overall safety; patient required SBA and SBA of another for IV pole management. Balance: Static Sitting: Good Dynamic Sitting: Good Static Standing: Good Dynamic Standing: Fair Special Tests: Mobility Limitations Standardized Measure [facility] AM-PAC 6 clicks Basic Mobility Inpatient Short Form: Raw Score: 19 CMS Score: 42% derficit Informed Consent/Education: Patient instructed in purpose of PT consult and plan of care. Median sternotomy precautions were also reviewed with patient during bed mobility and transfer task performance. Assessment: Patient is a 68- year-old female referred to physical therapy services with the diagnosis of HCAP, Gram + Bacteremia, and Atrial Flutter. Patient presents with clinical signs and symptoms consistent with current/admitting diagnoses that have resulted to mobility limitations, gait instability, generalized weakness, and impairment of motor control as demonstrated by the following impairment level findings: 1. Decreased strength to B LE major muscle groups 2. Impaired sitting/standing balance 3. Impaired activity tolerance 4. Median sternotomy movement precautions status post CABG x3 Impairments are contributing to the following functional limitations: 1. Increased completion time for mobility ADL performance, needs frequent rests 2. Fall risk 3. Inability to negotiate ramps without assistance Patient is assessed as a Moderate [id number] limitations of complexity based on the following: History: 68-year-old female with diagnosis with HCAP, Gram + Bacteremia, and Atrial Flutter Examination: Underlying impairments and functional limitations Presentation: Evolving Decision Makin moderate complexity Goals: Goals X1 week 1. Supine-Sit independent 2. Sit-Supine independent 3. Sit-Stand independent 4. Stand-Sit independent 5. Bed-Chair independent 6. Chair-Bed independent 7. Independent gait on level surface without use of assistive ambulatory device for at least 200 feet without report of chest pain nor dyspnea 8. Independent with home exercise program 9. Good dynamic standing balance/tolerance 10. Patient will perform 2-minute walk test without AD of at least 100 feet without report of chest pain nor dyspnea patient home health physical therapy services in order to Plan of Care/Treatment Plan: 1-2x/day, 7 days/week x 1 week. Plan of care has been reviewed with the ACIDIZER HELPER providing the service under Physical Therapy direction. Initiate Physical Therapy intervention for strengthening, bed mobility, transfers, gait, stairs, balance training, use of assistive device. DISCHARGE RECOMMENDATIONS: Patient will benefit from resumption of home health physical therapy services in order to prepare patient for phase 2 outpatient cardiac rehab program, reduce fall risk, maximize functional mobility level, and to assess home safety at daughter's house. TREATMENT CODE/TIME: 83395 for 30 minutes, 63318 for 12 minutes beginning at 9:23 AM. Thank you for this referral. Kathryn Sainz, PT, DPT, CLT [facility]
[2019-02-08] MEDS: Magnesium Oxide 400 MG TAB 800 MG PO (11:40)
--- NOTE | 2019-02-08 13:56 | PT.INTREAT ---
Date of service: 02/08/19 Time of Service: 13:57 PT Notes 02/08/19 SUBJECTIVE: Pt stating she is doing well. She no longer is having pain in the left shoulder. OBJECTIVE: Seated in her chair. Agreeable to PT treatment. TRANSFERS Sit to stand: SBA Stand to sit: SBA GAIT Device: FWW Weight bearing: FWB Assist: SBA Distance: 150' Deviation: 1 sit rest break, 1 stand rest break, SOB. VITALS: HR 119-137 b/m throughout. ASSESSMENT: Progressing with her functional mobility. She ambulates with slow cautious gait to conserve her energy and breath. Pt would benefit from continued PT efforts to improve functional independence and strength. PLAN: Continue current POC progressing toward's established goals. Treatment time: 15 minutes [id number] Christy Doss, ADMINISTRATIVE ASSISTANT DATA ENTRY
--- NOTE | 2019-02-08 14:00 | PTTR_ITS ---
Date of service: 02/08/19 Time of Service: 13:57 PT Notes 02/08/19 SUBJECTIVE: Pt stating she is doing well. She no longer is having pain in the left shoulder. OBJECTIVE: Seated in her chair. Agreeable to PT treatment. TRANSFERS Sit to stand: SBA Stand to sit: SBA GAIT Device: FWW Weight bearing: FWB Assist: SBA Distance: 150' Deviation: 1 sit rest break, 1 stand rest break, SOB. VITALS: HR 119-137 b/m throughout. ASSESSMENT: Progressing with her functional mobility. She ambulates with slow cautious gait to conserve her energy and breath. Pt would benefit from continued PT efforts to improve functional independence and strength. PLAN: Continue current POC progressing toward's established goals. Treatment time: 15 minutes [id number] Christy Doss, CLINICAL ENGINEER
[2019-02-08] MEDS: dilTIAZem 60 MG TAB PO ×2 (14:25→21:47)
[2019-02-08] MEDS: Furosemide 20 MG/2 ML VIAL IVP ×2 (17:11→18:18)
--- NOTE | 2019-02-08 17:47 | NUR.NOTE ---
Dr. Cornell in the unit for evening rounds and I told him that the patient has increased edema in the legs, CVP 17-19, slightly more SOB with movement, and coarser lung sounds just since having the Lasix drip off. He increased the Lasix dose to 40mg BID IVP. The patient just received her first dose of IV lasix since having the drip off. The HR has also not been really affected by the increase dose of Cardizem yet. He is not adjusting it further until the patient has had a few doses. The BP is also running low 100s so he is cautious in decreasing it further. The patient's FS have been running high 200- 300s. He added in carb coverage as the patient does not have her victosa here to take. A diabetic consult was also ordered. Nursing Note:
[2019-02-08] MEDS: Acetaminophen 500 MG TAB 1000 MG PO (18:18)
[2019-02-08] MEDS: rOPINIRole 0.5 MG TAB 2 MG PO (21:21)
[2019-02-09] VITALS (19 sets, daily range): BP systolic 107–147; BP diastolic 53–81; PULSE 70–111; RESP 19–29; TEMP 36.2–36.7; O2SAT 92–97
[2019-02-09] MEDS: Heparin 5,000 UNITS/ML VIAL 5000 UNITS SC ×3 (06:03→21:55)
[2019-02-09] MEDS: Metoprolol 50 MG TAB PO ×3 (06:04→20:02)
[2019-02-09] MEDS: dilTIAZem 60 MG TAB PO ×3 (06:04→18:20)
[2019-02-09 07:03] LABS: BUN 50 mg/dL (7-18); CREATININE 1.71 mg/dL (0.55-1.02); Calcium 9.3 mg/dL (8.5-10.1); Chloride 100 mmol/L (98-107); Estimated GFR 29.87 (mL/min/1.73m2); Glucose 325 mg/dL (70-100); Magnesium 1.8 mg/dL (1.8-2.4); Potassium 4.4 mmol/L (3.5-5.1); Sodium 138 mmol/L (136-145)
[2019-02-09 07:04] LABS: Abs Immature Grans 0.12 k/cumm (0.0-0.09); Basophils % 0.1; Eosinophils % 0.1; HCT 29.4 % (36.0-46.0); HGB 8.8 g/dL (12.0-15.5); Immature Grans % 0.8; Lymphocytes % 6.8; Mean Corp. HGB Concentration 29.9 g/dL (32.0-36.0); Mean Corpuscular Hemoglobin 28.8 pg (27.0-33.0); Mean Corpuscular Volume 96.1 fL (80-95); Mean Platelet Volume 9.5 fL (8.0-11.0); Monocytes % 2.6; Neutrophils % 89.6; Platelet Count 470 x1000/uL (130-400); RBC 3.06 m/cumm (4.00-5.20); RBC Distribution Width 14.9 % (11.7-14.6); White Blood Cell Count 15.24 k/cumm (4.4-10.8)
[2019-02-09 07:06] LABS: Absolute Basophil Count 0.02 k/cumm (0.0-0.2); Absolute Eosinophil Count 0.02 k/cumm (0.0-0.7); Absolute Lymphocyte Count 1.04 k/cumm (1.2-3.4); Absolute Neutrophil Count 13.66 k/cumm (1.2-6.7)
[2019-02-09] MEDS: DULoxetine 30 MG CAP 60 MG PO (08:16)
[2019-02-09] MEDS: Allopurinol 100 MG TAB PO (08:16)
[2019-02-09] MEDS: Cyanocobalamin 500 MCG TAB 1000 MCG PO (08:16)
[2019-02-09] MEDS: predniSONE 20 MG TAB PO ×2 (08:16→20:02)
[2019-02-09] MEDS: Aspirin E.C. 81 MG TABEC PO (08:16)
[2019-02-09] MEDS: Calcium 600mg/Vit D 200U TAB 2 TAB PO ×2 (08:16→20:02)
[2019-02-09] MEDS: Gabapentin 600 MG TAB PO ×3 (08:16→20:02)
[2019-02-09] MEDS: Sucralfate 1 GM TAB PO (08:16)
[2019-02-09] MEDS: Atorvastatin 40 MG TAB PO (08:16)
[2019-02-09] MEDS: Normal Saline Flush 10 ML SYR IVP ×2 (08:17→20:03)
[2019-02-09] MEDS: Folic Acid 1 MG TAB PO (08:17)
[2019-02-09] MEDS: Insulin Glargine 300 UNITS/3 ML PEN 10 UNITS SC (08:17)
[2019-02-09] MEDS: Insulin Aspart 300 UNITS/3 ML PEN SC ×7 (08:19→22:09)
--- NOTE | 2019-02-09 08:30 | DI.US_ITS ---
SYMPTOM/DIAGNOSIS: BILAT LOWER EXTREM EDEMA, ? DVT DUPLEX VENOUS ULTRASOUND BILATERAL LOWER EXTREMITIES: The study was carried out according to the usual protocol. The superficial, femoral, popliteal and proximal trifurcation in the superior portion of the legs are well seen. Good compressibility is noted throughout. Flow is demonstrated and flow augmentation was easily elicited with calf compression. SUMMARY: There is no evidence of DVT in either lower extremity.
--- NOTE | 2019-02-09 08:31 | PGE_ITS ---
Date of Service Date of service: 02/09/19 Time of Service: 10:53 Assessment and Plan (1) Atrial flutter with rapid ventricular response: Current visit: Yes Status: Acute Rate is still slightly rapid. Cardizem increased to 60 mg PO Q6 hrs, metoprolol maintained at 50 mg PO q 8 hrs. Continue to monitor on tele. Ok to transfer out of ICU later today. S/p resection of LA appendage - not requiring anticoagulation. (2) Acute on chronic diastolic CHF (congestive heart failure): Current visit: Yes Status: Acute Given slight worsening of Creatinine, started on gentle lasix gtt rather than bolus IV lasix. (3) Edema of both lower extremities: Current visit: Yes Status: Acute DDx: R-sided heart failure (there is evidence of pulmonary hypertension on echo), ?DVT -diurese and obtain venous doppler of BLE's (4) Pulmonary hypertension: Current visit: Yes Status: Chronic Diurese, monitor volume status. Needs a sleep study as outpatient - discussed with patient (5) Acute kidney injury superimposed on chronic kidney disease: Current visit: Yes Status: Acute Monitor carefully while on lasix gtt - it is actually possible that her kidney function will improve with diuresis, given her pulmonary hypertension. (6) Chronic obstructive lung disease: Current visit: No Status: Chronic In mild acute exacerbation - no change to steroid dose today. Continue symbicort, prn xopenex Qualifiers: COPD type: COPD with acute lower respiratory infection Qualified Code(s): J44.0 - Chronic obstructive pulmonary disease with acute lower respiratory infection (7) HCAP (healthcare-associated pneumonia): Current visit: Yes Status: Acute Resolved by procalcitonin numbers and has completed appropriate course of abx - however, will repeat sputum sample since the patient does continue to report sputum production. (8) Steroid-induced hyperglycemia: Current visit: Yes Status: Acute Introduce long acting insulin. Continue SSI and carb counting ration with meals (9) Diabetes mellitus: Current visit: No Status: Chronic As above Qualifiers: Diabetes mellitus type: type 2 Diabetes mellitus skilled nursing insulin use: without vermin exterminator use Diabetes mellitus complication status: with kidney complications Diabetes mellitus complication detail: with chronic kidney disease (10) CAD (coronary artery disease): Current visit: Yes Status: Chronic s/p CABG at [facility] [place] [place] in 12/2018. No evidence of ACS on this admission. Continue asa, BB, statin. (11) Anemia: Current visit: No Status: Chronic Heme negative. On both ranitidine and PPI - ok to d/c carafate. (12) UTI (urinary tract infection): Current visit: Yes Status: Resolved C&S mixed. Finished abx. (13) Hyperlipidemia: Current visit: No Status: Chronic Continue atorvastatin (14) BMI 40.0-44.9, adult: Current visit: No Status: Chronic Needs a sleep study (15) DVT prophylaxis: Current visit: Yes Status: Acute heparin SC (16) Discharge planning issues: Current visit: Yes Status: Acute Ok to transfer out of ICU to [facility] [place] with tele. Will need a sleep study as outpatient. Will need cardiac rehab. Subjective Interval history since last seen: Remains in Aflutter, HR mostly in 80's, but does go up to low 100's when it's time for the next dose. SBP's 120's - 115's. Still edematous. Still has crackles. Gonzalez out last night. FBG 365. Patient reports having palpitations - she can feel when her heart rate goes up. Continues to report yellow-tinged sputum. Has difficulty bringing it up. Denies dizziness, nausea, vomiting. Complains of BLE swelling. Exam Narrative Exam Narrative: General: Very pleasant middle-aged female, sitting in a recliner with legs elevated, no respiratory distress, coughing, on room air. HEENT: EOMI, MMM Heart: irregularly irregular rhythm, no m/r/g Lungs: crackles at B bases GI: abdomen is soft, nontender, nondistended Extremities: 2+ BLE edema, symmetric Objective Objective Clinical Data: Abnormal lab results 02/09/19 02/09/19 Range/Units 06:40 06:40 WBC 15.24 H (4.4-10.8) k/cumm RBC 3.06 L (4.00-5.20) m/cumm Hgb 8.8 L (12.0-15.5) g/dL Hct 29.4 L (36.0-46.0) % MCV 96.1 H (80-95) fL MCHC 29.9 L (32.0-36.0) g/dL RDW 14.9 H (11.7-14.6) % Plt Count 470 H (130-400) x1000/uL Absolute Neutrophils 13.66 H (1.2-6.7) k/cumm Absolute Lymphocytes 1.04 L (1.2-3.4) k/cumm BUN 50 H D (7-18) mg/dL Creatinine 1.71 H (0.55-1.02) mg/dL Glucose 325 H (70-100) mg/dL Vital Signs Temperature 36.7 C 02/09/19 06:45 Temperature Source Temporal Artery Scan 02/09/19 06:45 Pulse 111 H 02/09/19 06:45 Pulse 110 H 02/09/19 06:00 Respiratory Rate 23 02/09/19 06:45 Respiratory Effort Non-Labored 02/09/19 04:39 Respiratory Depth Normal 02/09/19 04:39 Respiratory Pattern Normal 02/08/19 17:02 Blood Pressure 123/73 02/09/19 06:45 Blood Pressure Mean 89 02/09/19 06:45 Blood Pressure Position Supine 02/08/19 22:50 Pulse Oximetry 94 L 02/08/19 22:50 Oxygen Delivery Method Room Air 02/09/19 06:45 Oxygen Flow Rate 0 02/09/19 06:45 Pain Level 0 02/08/19 17:02 Comment 02/08/19 12:03 Intake & Output 02/08/19 02/08/19 02/09/19 11:59 23:59 11:59 Intake Total 290 / 1319.55 1029.55 / 1319.55 Output Total 650 / 2225 1575 / 2225 550 / 550 Balance -360 / -905.45 -545.45 / -905.45 -530 / -530 Weight 129 kg 128.7 kg Intake: IV 50 / 355.55 305.55 / 355.55 / Oral 240 / 964 724 / 964 Output: Urine 650 / 2225 1575 / 2225 550 / 550 Other: Urine Color Yellow Yellow Yellow Urine Appearance Clear Clear Clear Sediment Urine Odor None None Comment Dumped urine from urometer into bag at this time gonzalez to be dc'd this evening. gonzalez to be dc'd this evening. Stool Occult Blood Negative Stool Size Moderate Moderate Stool Characteristics Brown Soft Formed Brown Voiding Methods Bedside Commode Bedside Commode Laboratory Results WBC 15.24 k/cumm (4.4-10.8) H 02/09/19 06:40 RBC 3.06 m/cumm (4.00-5.20) L 02/09/19 06:40 Hgb 8.8 g/dL (12.0-15.5) L 02/09/19 06:40 Hct 29.4 % (36.0-46.0) L 02/09/19 06:40 MCV 96.1 fL (80-95) H 02/09/19 06:40 MCH 28.8 pg (27.0-33.0) 02/09/19 06:40 MCHC 29.9 g/dL (32.0-36.0) L 02/09/19 06:40 RDW 14.9 % (11.7-14.6) H 02/09/19 06:40 Plt Count 470 x1000/uL (130-400) H 02/09/19 06:40 MPV 9.5 fL (8.0-11.0) 02/09/19 06:40 Immature Gran % 0.8 02/09/19 06:40 Neutrophils % 89.6 02/09/19 06:40 Lymphocytes % 6.8 02/09/19 06:40 Monocytes % 2.6 02/09/19 06:40 Eosinophils % 0.1 02/09/19 06:40 Basophils % 0.1 02/09/19 06:40 Absolute Neutrophils 13.66 k/cumm (1.2-6.7) H 02/09/19 06:40 Absolute Lymphocytes 1.04 k/cumm (1.2-3.4) L 02/09/19 06:40 Absolute Monocytes 0.40 k/cumm (0.11-0.7) 02/09/19 06:40 Absolute Eosinophils 0.02 k/cumm (0.0-0.7) 02/09/19 06:40 Absolute Basophils 0.02 k/cumm (0.0-0.2) 02/09/19 06:40 Differential Comment Rbc morph reviewed 02/03/19 05:50 RBC Morphology See below 02/03/19 05:50 Polychromasia Present 02/03/19 05:50 Hypochromasia 1+ 02/03/19 05:50 Poikilocytosis 1+ 02/03/19 05:50 Basophilic Stippling Present 02/03/19 05:50 Macrocytosis 1+ 02/03/19 05:50 PT 11.6 sec (9.3-11.0) H 02/02/19 17:57 INR 1.2 (0.9-1.1) H 02/02/19 17:57 APTT 27.0 sec (21.0-31.4) 02/02/19 17:57 Sodium 138 mmol/L (136-145) 02/09/19 06:40 Potassium 4.4 mmol/L (3.5-5.1) 02/09/19 06:40 Chloride 100 mmol/L (98-107) 02/09/19 06:40 Carbon Dioxide 29.0 mmol/L (21.0-32.0) 02/09/19 06:40 Anion Gap 9.0 mmol/L (3-11) 02/09/19 06:40 BUN 50 mg/dL (7-18) H D 02/09/19 06:40 Creatinine 1.71 mg/dL (0.55-1.02) H 02/09/19 06:40 Estimated GFR/1.73 m2 29.87 (mL/min/1.73m2) 02/09/19 06:40 Glucose 325 mg/dL (70-100) H 02/09/19 06:40 Lactate 0.9 mmol/l (0.6-1.4) 02/04/19 12:25 Calcium 9.3 mg/dL (8.5-10.1) 02/09/19 06:40 Magnesium 1.8 mg/dL (1.8-2.4) 02/09/19 06:40 Iron 8 ug/dL (50-175) L 02/04/19 07:15 TIBC 251 ug/dL (250-450) 02/04/19 07:15 Transferrin % Sat 3 % (15-50) L 02/04/19 07:15 Ferritin 171 ng/mL (8-388) 02/04/19 07:15 Total Bilirubin 0.8 mg/dL (0.2-1.0) 02/02/19 17:57 AST 11 U/L (15-37) L 02/02/19 17:57 ALT 29 U/L (12-78) 02/02/19 17:57 Alkaline Phosphatase 124 U/L (46-116) H 02/02/19 17:57 Troponin I 0.16 ng/mL (0.00-0.06) H* 02/04/19 21:10 NT-Pro-B Natriuret Pep 5237 pg/mL (-299) H 02/04/19 07:15 Total Protein 7.0 g/dL (6.4-8.2) 02/02/19 17:57 Albumin 2.8 g/dL (3.4-5.0) L 02/02/19 17:57 Vitamin B12 1844 pg/mL (193-986) H 02/04/19 07:15 Folate > 20.0 ng/mL (8.6-20.0) H 02/04/19 07:15 Procalcitonin < 0.1 ng/mL 02/06/19 06:25 TSH 0.97 uIU/mL (0.358-3.74) 02/02/19 17:57 Urine Color Yellow (Yellow) 02/02/19 20:11 Urine Clarity Sl cloudy 02/02/19 20:11 Urine pH 5.5 (5-8) 02/02/19 20:11 Ur Specific [place] 1.015 (1.005-1.025) 02/02/19 20:11 Urine Protein 30 mg/dL (Negative) H 02/02/19 20:11 Urine Ketones Negative mg/dL (Negative) 02/02/19 20:11 Urine Blood Moderate (Negative) H 02/02/19 20:11 Urine Nitrite Negative (Negative) 02/02/19 20:11 Urine Bilirubin Negative (Negative) 02/02/19 20:11 Urine Urobilinogen 0.2 EU/dL (Up TO 0.2) 02/02/19 20:11 Ur Leukocyte Esterase Moderate (Negative) H 02/02/19 20:11 Urine RBC 10-20 (0-2) H 02/02/19 20:11 Urine WBC 10-20 HPF (0-5) 02/02/19 20:11 Ur Epithelial Cells Many HPF (Negative) 02/02/19 20:11 Urine Crystals Negative HPF (Negative) 02/02/19 20:11 Urine Bacteria Few HPF (Negative) 02/02/19 20:11 Urine Casts Negative LPF (Negative) 02/02/19 20:11 Urine Mucus Negative (Negative) 02/02/19 20:11 Urine Other (Negative) 02/02/19 20:11 Ur Culture Indicated? C&s done as ordered 02/02/19 20:11 Urine Glucose Negative mg/dL (Negative) 02/02/19 20:11 Vancomycin Trough 23.7 ug/mL (10.0-20.0) H* 02/06/19 11:08 Legionella Source (see note) 02/03/19 22:10 Legionella Reprt Status (see note) 02/03/19 22:10 Legionella Final Result (see note) 02/03/19 22:10 M. pneumoniae Source sputum 02/03/19 06:15 M. pneumoniae (PCR) Negative 02/03/19 06:15 Ur Strep pneumoniae Ag Negative (Negative) 02/03/19 22:10
[2019-02-09] MEDS: Budesonide/Formoterol 160/4.5 6 GM 60 PUFF INH IH ×2 (09:04→21:44)
--- NOTE | 2019-02-09 10:14 | PT.INTREAT ---
Date of service: 02/09/19 Time of Service: 09:30 PT Notes Inpatient Physical Therapy Treatment Note [facility] Date: 02/09/19 PRECAUTIONS:Sternal precautions SUBJECTIVE: Pt reports that she is somewhat tired today and with exercise is experiencing some slight SOB. Pt reports that she is discouraged because she is still in the hospital. OBJECTIVE: Sit-stand: SBA Stand-sit: SBA GAIT Assistive Device: FWW Weight bearing: Full Assist: SBA Distance: Approx 100ft with 1 seated rest and 1 standing rest. VITALS: HR 75-92bpm THEREX: Pt completed antigravity biceps curls and LE strengthening ther ex as per flow sheet while in the seated position. ASSESSMENT: Pt tolerated today's session well. Pt did have some slight SOB and fatigue during her session today. PLAN: Cont as per PT POC. TREATMENT CODE/TIME: 9:30-10 (30) SIL ANGELES
--- NOTE | 2019-02-09 13:28 | CMPROGNOTE_ITS ---
Care Management Progress Note S/O: Ann-Marie transitioned to MED/SURG level of care though she remains in the ICU. She also remains on oral steroids, and Lasix drip which, per MD will be increased today due to edematous presentation. Per MD, she continues to require close monitoring and medication adjustments due to Afib, fluid balance, and uncontrolled blood sugars while being treated with steroids. Ann-Marie was able to verbalize understanding of her treatments and medication adjustments. She was lying in bed, pleasant in interaction with humor intact. She spoke in length about her visitors including Nara Coworkers, her daughter Savannah and grand-daughter who graduates tomorrow (they are taping it for her) and her fifteen year old grandson who just broke his neck. She also spoke about missing her dog Ruger. CM provided active listening and validation. CM spoke to Ann-Marie about plans for her future. She reported she was officially retiring. Anticipate referral to Medicare Evan and Jack Matson as well as DOT to discuss next steps in securing insurance as Ann-Marie reports her short term disability through [employer] and [employer] will have an end date. CM continues to follow. Plan remains for Ann-Marie to return to her daughters home when she is ready for discharge. A: Ann-Marie is a 68 year old female admitted with Healthcare Acquired pneumonia with a history of multiple encounters with healthcare settings, COPD, recent CABG and DM. P: Ann-Marie will plan to discharged home when medically ready per provider. She will have resumption of home health services including nursing, PT and OT upon discharge. She will follow up with [facility] and Jack Matson (Ship Coordinator) as well as DOT. She will be staying with her daughter December at time of discharge and her family will transport her home.
--- NOTE | 2019-02-09 13:55 | DI.VRAD_ITS ---
EXAM: US Duplex Bilateral Lower Extremity Veins EXAM DATE/TIME: 02/09/2019 12:50 PM CLINICAL HISTORY: 68 years old, female; Signs and symptoms; Edema, localized; Lower extremity, bilateral TECHNIQUE: Imaging protocol: Real-time duplex ultrasound of the Bilateral Lower Extremities with 2-D dutta scale, color Doppler flow and spectral waveform analysis. Complete exam focused on the bilateral lower extremity veins. COMPARISON: No relevant prior studies available. FINDINGS: Right deep veins: Unremarkable. The common femoral, femoral, proximal profunda femoral, popliteal, and posterior tibial veins are patent without thrombus. Normal Doppler waveforms. Normal compressibility and/or augmentation response. Right superficial veins: Saphenofemoral junction is patent without thrombus. Left deep veins: Unremarkable. The common femoral, femoral, proximal profunda femoral, popliteal, and posterior tibial veins are patent without thrombus. Normal Doppler waveforms. Normal compressibility and/or augmentation response. Left superficial veins: Saphenofemoral junction is patent without thrombus. Soft tissues: Soft tissue edema evident. IMPRESSION: No evidence of venous thrombosis. Dictated and Authenticated by: Henrietta Rivera MD. Ordering:MALINA Felix MD
[2019-02-09] MEDS: rOPINIRole 0.5 MG TAB 2 MG PO (21:54)
[2019-02-10] VITALS (27 sets, daily range): BP systolic 103–149; BP diastolic 42–94; PULSE 50–75; RESP 14–29; TEMP 35.5–36.7; O2SAT 95–97
[2019-02-10] MEDS: dilTIAZem 60 MG TAB PO ×2 (00:31→05:43)
[2019-02-10] MEDS: Heparin 5,000 UNITS/ML VIAL 5000 UNITS SC ×3 (05:38→22:48)
[2019-02-10] MEDS: Metoprolol 50 MG TAB PO (05:43)
[2019-02-10 06:58] LABS: Anion Gap 9.3 mmol/L (3-11); BUN 55 mg/dL (7-18); CO2 29.7 mmol/L (21.0-32.0); CREATININE 1.75 mg/dL (0.55-1.02); Calcium 9.5 mg/dL (8.5-10.1); Chloride 100 mmol/L (98-107); Estimated GFR 29.08 (mL/min/1.73m2); Glucose 302 mg/dL (70-100); Magnesium 1.7 mg/dL (1.8-2.4); Potassium 4.6 mmol/L (3.5-5.1); Sodium 139 mmol/L (136-145)
[2019-02-10 07:02] LABS: Abs Immature Grans 0.12 k/cumm (0.0-0.09); Absolute Basophil Count 0.01 k/cumm (0.0-0.2); Absolute Lymphocyte Count 1.22 k/cumm (1.2-3.4); Absolute Monocyte Count 0.65 k/cumm (0.11-0.7); Basophils % 0.1; Eosinophils % 0.1; HCT 30.7 % (36.0-46.0); HGB 9.2 g/dL (12.0-15.5); Immature Grans % 0.9; Lymphocytes % 8.8; Mean Corpuscular Hemoglobin 28.6 pg (27.0-33.0); Mean Corpuscular Volume 95.3 fL (80-95); Mean Platelet Volume 9.5 fL (8.0-11.0); Monocytes % 4.7; Neutrophils % 85.4; Platelet Count 529 x1000/uL (130-400); RBC 3.22 m/cumm (4.00-5.20); RBC Distribution Width 14.9 % (11.7-14.6); White Blood Cell Count 13.91 k/cumm (4.4-10.8)
[2019-02-10 07:04] LABS: Absolute Eosinophil Count 0.01 k/cumm (0.0-0.7); Absolute Neutrophil Count 11.88 k/cumm (1.2-6.7)
[2019-02-10] MEDS: Insulin Glargine 300 UNITS/3 ML PEN 20 UNITS SC (08:35)
[2019-02-10] MEDS: Insulin Aspart 300 UNITS/3 ML PEN SC ×7 (08:35→22:59)
[2019-02-10] MEDS: Budesonide/Formoterol 160/4.5 6 GM 60 PUFF INH IH ×2 (08:41→22:48)
[2019-02-10] MEDS: Aspirin E.C. 81 MG TABEC PO (09:03)
[2019-02-10] MEDS: Cyanocobalamin 500 MCG TAB 1000 MCG PO (09:03)
[2019-02-10] MEDS: Folic Acid 1 MG TAB PO (09:03)
[2019-02-10] MEDS: Gabapentin 600 MG TAB PO ×3 (09:03→22:50)
[2019-02-10] MEDS: Atorvastatin 40 MG TAB PO (09:03)
[2019-02-10] MEDS: Allopurinol 100 MG TAB PO (09:03)
[2019-02-10] MEDS: Calcium 600mg/Vit D 200U TAB 2 TAB PO ×2 (09:04→22:50)
[2019-02-10] MEDS: DULoxetine 30 MG CAP 60 MG PO (09:04)
[2019-02-10] MEDS: predniSONE 20 MG TAB PO (09:04)
[2019-02-10] MEDS: MAGNESIUM SULFATE 2 GM/50 ML BAG IVPB (09:38)
--- NOTE | 2019-02-10 10:05 | CMPROGNOTE_ITS ---
Care Management Progress Note S/O: Ann-Marie remains on Med/Surg level of care on Telemetry. Per MD, she converted to sinus rhythm this morning and will have a EKG performed by RT. She is in CHF; remains on Lasix as well as CKD though per MD her creatinine is holding with Lasix. CM notified of Ann-Marie's concern for upcoming [facility] [place]iology, tomorrow, 02/11/19 to determine if Ann-Marie will need to attend. CM continues to follow. A: Ann-Marie is a 68 year old female admitted with Healthcare Acquired pneumonia with a history of multiple encounters with healthcare settings, COPD, recent CABG and DM. P: Ann-Marie will plan to discharged home when medically ready per provider. She will have resumption of home health services including nursing, PT and OT upon discharge. She will follow [facility] with [facility] and Jack Matson (Ship Coordinator) as well as DOT. She will be staying with her daughter December at time of discharge and her family will transport her home.
--- NOTE | 2019-02-10 10:38 | PT.INTREAT ---
Date of service: 02/10/19 Time of Service: 09:45 PT Notes Inpatient Physical Therapy Treatment Note [facility] Date: 02/10/19 PRECAUTIONS:Sternal precaution and standard OBJECTIVE: Sit-stand: SBA Stand-sit: SBA GAIT Assistive Device: FWW Weight bearing: Full Assist: SBA Distance: Approx 100ft with no seated or standing rests. THEREX: Pt completed antigravity bicep curls x 20 and LE seated ther ex as per flow sheet. ASSESSMENT: Pt tolerated today's session well. Pt did not appear to be SOB or as fatigued today. PLAN: Cont as per PT POC. TREATMENT CODE/TIME: 9:45-10:05 (20) TA
--- NOTE | 2019-02-10 11:22 | W.PM.PROGNOT ---
Date of Service Date of service: 02/10/19 Time of Service: 11:22 Assessment and Plan (1) Atrial flutter with rapid ventricular response: Current visit: Yes Status: Chronic Paroxysmal, converted to NSR. S/p removal of PINEDA, but not Maze procedure, per my review of [facility] [place] op report. Rate is perfect. Transition to long acting cardizem and metoprolol. Continue to monitor on tele. Not requiring anticoagulation due to h/o removal of PINEDA. (2) Acute on chronic diastolic CHF (congestive heart failure): Current visit: Yes Status: Acute Creatinine is tolerating gentle lasix gtt - will continue for 24 hours. (3) Edema of both lower extremities: Current visit: Yes Status: Acute Likely due to R-sided heart failure (there is evidence of pulmonary hypertension on echo). No evidence of DVT. Continue diuresis. (4) Pulmonary hypertension: Current visit: Yes Status: Chronic As above. Needs a sleep study as outpatient (5) Acute kidney injury superimposed on chronic kidney disease: Current visit: Yes Status: Acute Stable. Continue to monitor carefully while on lasix gtt. (6) Chronic obstructive lung disease: Current visit: No Status: Chronic In mild acute exacerbation. Taper steroid dose. Continue symbicort, prn xopenex Qualifiers: COPD type: COPD with acute lower respiratory infection Qualified Code(s): J44.0 - Chronic obstructive pulmonary disease with acute lower respiratory infection (7) HCAP (healthcare-associated pneumonia): Current visit: Yes Status: Resolved Resolved by procalcitonin numbers and has completed appropriate course of abx. (8) Steroid-induced hyperglycemia: Current visit: Yes Status: Acute Increase long acting insulin. Continue SSI and carb counting ratios with meals (9) Diabetes mellitus: Current visit: No Status: Chronic As above Qualifiers: Diabetes mellitus type: type 2 Diabetes mellitus senior living insulin use: without terminal clerk use Diabetes mellitus complication status: with kidney complications Diabetes mellitus complication detail: with chronic kidney disease (10) CAD (coronary artery disease): Current visit: Yes Status: Chronic s/p CABG at [facility] [place] in 12/2018. No evidence of ACS on this admission. Continue asa, BB, statin. (11) Anemia: Current visit: No Status: Chronic Heme negative. On both ranitidine and PPI. (12) UTI (urinary tract infection): Current visit: Yes Status: Resolved C&S mixed. Finished abx. (13) Hyperlipidemia: Current visit: No Status: Chronic Continue atorvastatin (14) BMI 40.0-44.9, adult: Current visit: No Status: Chronic Needs a sleep study (15) DVT prophylaxis: Current visit: Yes Status: Acute heparin SC (16) Discharge planning issues: Current visit: Yes Status: Acute Anticipate discharge in 48 hours. Will need a sleep study as outpatient. Will need cardiac rehab. Subjective Interval history since last seen: Converted to NSR at 0235 this am. EKG from this morning is showing no changes in morphology of waves. Remains on lasix gtt. Flynn catheter inserted this morning. The patient complains of a little shortness of breath, denies dizziness, chest pain, palpitations since conversion to NSR, nausea, vomiting. I explained to her what PINEDA removal means and why she does not need to be on blood thinners. Exam Narrative Exam Narrative: General: Very pleasant middle-aged female, laying nearly flat in bed, very minimal tachypnea noted, A&Ox3 HEENT: EOMI, MMM Heart: RRR, no m/r/g Lungs: very minimal crackles auscultated at R base GI: abdomen is soft, nontender, nondistended Extremities: 1+ BLE edema - improved, in TEDs and SCD's. Objective Objective Clinical Data: Abnormal lab results 02/10/19 02/10/19 Range/Units 06:10 06:10 WBC 13.91 H (4.4-10.8) k/cumm RBC 3.22 L (4.00-5.20) m/cumm Hgb 9.2 L (12.0-15.5) g/dL Hct 30.7 L (36.0-46.0) % MCV 95.3 H (80-95) fL MCHC 30.0 L (32.0-36.0) g/dL RDW 14.9 H (11.7-14.6) % Plt Count 529 H (130-400) x1000/uL Absolute Neutrophils 11.88 H (1.2-6.7) k/cumm BUN 55 H (7-18) mg/dL Creatinine 1.75 H (0.55-1.02) mg/dL Glucose 302 H (70-100) mg/dL Magnesium 1.7 L (1.8-2.4) mg/dL Vital Signs Temperature 36.2 C L 02/10/19 07:24 Temperature Source Temporal Artery Scan 02/10/19 07:24 Pulse 63 02/10/19 09:01 Pulse Rhythm Irregular 02/10/19 00:00 Pulse 71 02/10/19 09:41 Respiratory Rate 16 02/10/19 09:41 Respiratory Effort 02/10/19 00:00 Respiratory Depth Normal 02/10/19 00:00 Respiratory Pattern Normal 02/09/19 18:00 Blood Pressure 136/67 02/10/19 09:41 Blood Pressure Mean 84 02/10/19 09:41 Blood Pressure Position Supine 02/08/19 22:50 Pulse Oximetry 97 02/10/19 07:25 Oxygen Delivery Method Room Air 02/10/19 07:24 Oxygen Flow Rate 0 02/10/19 07:24 Pain Level 0 02/10/19 07:24 Comment 02/10/19 07:24 Intake & Output 02/09/19 02/09/19 02/10/19 11:59 23:59 11:59 Intake Total 600 / 2019.833 1419.833 / 2019.833 330.167 / 330.167 Output Total 550 / 1610 1060 / 1610 675 / 675 Balance 50 / 409.833 359.833 / 409.833 -344.833 / -344.833 Weight 128.7 kg 127.7 kg Intake: IV 60 / 1039.833 979.833 / 1039.833 90.167 / 90.167 Oral 540 / 980 440 / 980 240 / 240 Output: Urine 550 / 1610 1060 / 1610 675 / 675 Other: Urine Color Yellow Pale Pale Yellow Yellow Urine Appearance Clear Clear Clear Urine Odor None None None Comment LASIX GTT REORDERED, STARTED AT 0930. incontinent large amounts urine while in bed sleeping - noted when woke for dinner incontinent of large amount urine in bed.complete bed change and am care done. Stool Occult Blood Negative Stool Size Large Stool Characteristics Soft Formed Brown Voiding Methods Bedside Commode Bedside Commode Incontinent Laboratory Results WBC 13.91 k/cumm (4.4-10.8) H 02/10/19 06:10 RBC 3.22 m/cumm (4.00-5.20) L 02/10/19 06:10 Hgb 9.2 g/dL (12.0-15.5) L 02/10/19 06:10 Hct 30.7 % (36.0-46.0) L 02/10/19 06:10 MCV 95.3 fL (80-95) H 02/10/19 06:10 MCH 28.6 pg (27.0-33.0) 02/10/19 06:10 MCHC 30.0 g/dL (32.0-36.0) L 02/10/19 06:10 RDW 14.9 % (11.7-14.6) H 02/10/19 06:10 Plt Count 529 x1000/uL (130-400) H 02/10/19 06:10 MPV 9.5 fL (8.0-11.0) 02/10/19 06:10 Immature Gran % 0.9 02/10/19 06:10 Neutrophils % 85.4 02/10/19 06:10 Lymphocytes % 8.8 02/10/19 06:10 Monocytes % 4.7 02/10/19 06:10 Eosinophils % 0.1 02/10/19 06:10 Basophils % 0.1 02/10/19 06:10 Absolute Neutrophils 11.88 k/cumm (1.2-6.7) H 02/10/19 06:10 Absolute Lymphocytes 1.22 k/cumm (1.2-3.4) 02/10/19 06:10 Absolute Monocytes 0.65 k/cumm (0.11-0.7) 02/10/19 06:10 Absolute Eosinophils 0.01 k/cumm (0.0-0.7) 02/10/19 06:10 Absolute Basophils 0.01 k/cumm (0.0-0.2) 02/10/19 06:10 Differential Comment Rbc morph reviewed 02/03/19 05:50 RBC Morphology See below 02/03/19 05:50 Polychromasia Present 02/03/19 05:50 Hypochromasia 1+ 02/03/19 05:50 Poikilocytosis 1+ 02/03/19 05:50 Basophilic Stippling Present 02/03/19 05:50 Macrocytosis 1+ 02/03/19 05:50 PT 11.6 sec (9.3-11.0) H 02/02/19 17:57 INR 1.2 (0.9-1.1) H 02/02/19 17:57 APTT 27.0 sec (21.0-31.4) 02/02/19 17:57 Sodium 139 mmol/L (136-145) 02/10/19 06:10 Potassium 4.6 mmol/L (3.5-5.1) 02/10/19 06:10 Chloride 100 mmol/L (98-107) 02/10/19 06:10 Carbon Dioxide 29.7 mmol/L (21.0-32.0) 02/10/19 06:10 Anion Gap 9.3 mmol/L (3-11) 02/10/19 06:10 BUN 55 mg/dL (7-18) H 02/10/19 06:10 Creatinine 1.75 mg/dL (0.55-1.02) H 02/10/19 06:10 Estimated GFR/1.73 m2 29.08 (mL/min/1.73m2) 02/10/19 06:10 Glucose 302 mg/dL (70-100) H 02/10/19 06:10 Lactate 0.9 mmol/l (0.6-1.4) 02/04/19 12:25 Calcium 9.5 mg/dL (8.5-10.1) 02/10/19 06:10 Magnesium 1.7 mg/dL (1.8-2.4) L 02/10/19 06:10 Iron 8 ug/dL (50-175) L 02/04/19 07:15 TIBC 251 ug/dL (250-450) 02/04/19 07:15 Transferrin % Sat 3 % (15-50) L 02/04/19 07:15 Ferritin 171 ng/mL (8-388) 02/04/19 07:15 Total Bilirubin 0.8 mg/dL (0.2-1.0) 02/02/19 17:57 AST 11 U/L (15-37) L 02/02/19 17:57 ALT 29 U/L (12-78) 02/02/19 17:57 Alkaline Phosphatase 124 U/L (46-116) H 02/02/19 17:57 Troponin I 0.16 ng/mL (0.00-0.06) H* 02/04/19 21:10 NT-Pro-B Natriuret Pep 5237 pg/mL (-299) H 02/04/19 07:15 Total Protein 7.0 g/dL (6.4-8.2) 02/02/19 17:57 Albumin 2.8 g/dL (3.4-5.0) L 02/02/19 17:57 Vitamin B12 1844 pg/mL (193-986) H 02/04/19 07:15 Folate > 20.0 ng/mL (8.6-20.0) H 02/04/19 07:15 Procalcitonin < 0.1 ng/mL 02/06/19 06:25 TSH 0.97 uIU/mL (0.358-3.74) 02/02/19 17:57 Urine Color Yellow (Yellow) 02/02/19 20:11 Urine Clarity Sl cloudy 02/02/19 20:11 Urine pH 5.5 (5-8) 02/02/19 20:11 Ur Specific [place] 1.015 (1.005-1.025) 02/02/19 20:11 Urine Protein 30 mg/dL (Negative) H 02/02/19 20:11 Urine Ketones Negative mg/dL (Negative) 02/02/19 20:11 Urine Blood Moderate (Negative) H 02/02/19 20:11 Urine Nitrite Negative (Negative) 02/02/19 20:11 Urine Bilirubin Negative (Negative) 02/02/19 20:11 Urine Urobilinogen 0.2 EU/dL (Up TO 0.2) 02/02/19 20:11 Ur Leukocyte Esterase Moderate (Negative) H 02/02/19 20:11 Urine RBC 10-20 (0-2) H 02/02/19 20:11 Urine WBC 10-20 HPF (0-5) 02/02/19 20:11 Ur Epithelial Cells Many HPF (Negative) 02/02/19 20:11 Urine Crystals Negative HPF (Negative) 02/02/19 20:11 Urine Bacteria Few HPF (Negative) 02/02/19 20:11 Urine Casts Negative LPF (Negative) 02/02/19 20:11 Urine Mucus Negative (Negative) 02/02/19 20:11 Urine Other (Negative) 02/02/19 20:11 Ur Culture Indicated? C&s done as ordered 02/02/19 20:11 Urine Glucose Negative mg/dL (Negative) 02/02/19 20:11 Vancomycin Trough 23.7 ug/mL (10.0-20.0) H* 02/06/19 11:08 Legionella Source (see note) 02/03/19 22:10 Legionella Reprt Status (see note) 02/03/19 22:10 Legionella Final Result (see note) 02/03/19 22:10 M. pneumoniae Source sputum 02/03/19 06:15 M. pneumoniae (PCR) Negative 02/03/19 06:15 Ur Strep pneumoniae Ag Negative (Negative) 02/03/19 22:10
[2019-02-10] MEDS: dilTIAZem CD 180 MG CAPCR PO (13:12)
[2019-02-10] MEDS: Metoprolol CR 100 MG TABCR PO (13:13)
[2019-02-10] MEDS: rOPINIRole 0.5 MG TAB 2 MG PO (22:53)
[2019-02-11] VITALS (10 sets, daily range): BP systolic 135–155; BP diastolic 65–76; PULSE 61–77; RESP 21–25; TEMP 35–36.6; O2SAT 86–93
[2019-02-11] MEDS: Heparin 5,000 UNITS/ML VIAL 5000 UNITS SC ×3 (06:16→22:11)
[2019-02-11] MEDS: Budesonide/Formoterol 160/4.5 6 GM 60 PUFF INH IH ×2 (07:17→20:10)
[2019-02-11 07:18] LABS: Abs Immature Grans 0.18 k/cumm (0.0-0.09); Absolute Basophil Count 0.01 k/cumm (0.0-0.2); Absolute Eosinophil Count 0.19 k/cumm (0.0-0.7); Absolute Monocyte Count 0.97 k/cumm (0.11-0.7); Basophils % 0.1; Eosinophils % 1.5; HCT 28.5 % (36.0-46.0); HGB 8.6 g/dL (12.0-15.5); Immature Grans % 1.4; Lymphocytes % 16.1; Mean Corp. HGB Concentration 30.2 g/dL (32.0-36.0); Mean Corpuscular Hemoglobin 28.5 pg (27.0-33.0); Mean Corpuscular Volume 94.4 fL (80-95); Mean Platelet Volume 9.3 fL (8.0-11.0); Monocytes % 7.8; Neutrophils % 73.1; Platelet Count 479 x1000/uL (130-400); RBC 3.02 m/cumm (4.00-5.20); RBC Distribution Width 14.9 % (11.7-14.6); White Blood Cell Count 12.45 k/cumm (4.4-10.8)
[2019-02-11 07:25] LABS: BUN 60 mg/dL (7-18); CREATININE 1.81 mg/dL (0.55-1.02); Calcium 9.2 mg/dL (8.5-10.1); Chloride 100 mmol/L (98-107); Estimated GFR 27.97 (mL/min/1.73m2); Glucose 218 mg/dL (70-100); Magnesium 2.2 mg/dL (1.8-2.4); Potassium 4.1 mmol/L (3.5-5.1); Sodium 138 mmol/L (136-145)
[2019-02-11 07:54] LABS: Anisocytosis 1+; Basophilic Stippling Present; Diff Comment RBC Morph Reviewed; Hypochromasia 2+; Poikilocytes 1+; Polychromasia Present
--- NOTE | 2019-02-11 08:14 | CMPROGNOTE_ITS ---
Care Management Progress Note S/O: Ann-Marie was lying in bed when CM met with her. She processed the choking incident that happened this morning, and shared how scary it was to not be able to breathe. She reported seeing stars, and Josep; RT helping her raise the piece of watermelon. She verbalized understanding of her discharge plan and reported she was looking forward to returning home tomorrow. CM continues to follow. A: Ann-Marie is a 68 year old female admitted with Healthcare Acquired pneumonia with a history of multiple encounters with healthcare settings, COPD, recent CABG and DM. P: Ann-Marie will plan to discharged home when medically ready per provider; likely tomorrow. She will have resumption of home health services including nursing, PT and OT upon discharge. She will follow up with [facility] for Medicare Bootcamp and Jack Matson (Ship Coordinator) CM faxed referral. She will also follow up [place] [facility] [place] [facility]. She will be staying with her daughter December at time of discharge and her family will transport her home.
--- NOTE | 2019-02-11 08:21 | PGE_ITS ---
Date of Service Date of service: 02/11/19 Time of Service: 12:37 Assessment and Plan (1) Aspiration into airway: Current visit: Yes Status: Acute no evidence for baseline dysphagia - patient states she never normally chokes. The patient was able to cough the watermelon up. Repeat CXR tomorrow to ensure that the patient didn't develop pneumonitis. (2) Atrial flutter with rapid ventricular response: Current visit: Yes Status: Chronic Paroxysmal, converted to NSR. S/p removal of PINEDA, but not Maze procedure, per my review of [facility] op report. Rate is perfect. Tolerating long acting cardizem and metoprolol. Continue to monitor on tele. Not requiring anticoagulation due to h/o removal of PINEDA. (3) Acute on chronic diastolic CHF (congestive heart failure): Current visit: Yes Status: Acute Creatinine a little up - and clinically seems to be doing better. Ok to transition to PO lasix tomorrow morning. (4) Edema of both lower extremities: Current visit: Yes Status: Acute Improved. Likely due to R-sided heart failure (there is evidence of pulmonary hypertension on echo). No evidence of DVT. Switching diuresis to PO. (5) Pulmonary hypertension: Current visit: Yes Status: Chronic As above. Needs a sleep study as outpatient (6) Acute kidney injury superimposed on chronic kidney disease: Current visit: Yes Status: Acute A little worse - backing off of lasix gtt - transition to PO tomorrow am. (7) Chronic obstructive lung disease: Current visit: No Status: Chronic In mild acute exacerbation. Tapering prednisone. Continue symbicort, prn xopenex Qualifiers: COPD type: COPD with acute lower respiratory infection Qualified Code(s): J44.0 - Chronic obstructive pulmonary disease with acute lower respiratory infection (8) HCAP (healthcare-associated pneumonia): Current visit: Yes Status: Resolved Resolved by procalcitonin numbers and has completed appropriate course of abx. (9) Steroid-induced hyperglycemia: Current visit: Yes Status: Acute Continue basal bolus insulin. (10) Diabetes mellitus: Current visit: No Status: Chronic As above Qualifiers: Diabetes mellitus type: type 2 Diabetes mellitus custodial insulin use: without dedicated intermodal truck driver use Diabetes mellitus complication status: with kidney complications Diabetes mellitus complication detail: with chronic kidney disease (11) CAD (coronary artery disease): Current visit: Yes Status: Chronic s/p CABG at [facility] in 12/2018. No evidence of ACS on this admission. Continue asa, BB, statin. (12) Anemia: Current visit: No Status: Chronic Heme negative. On both ranitidine and PPI. (13) UTI (urinary tract infection): Current visit: Yes Status: Resolved C&S mixed. Finished abx. (14) Hyperlipidemia: Current visit: No Status: Chronic Continue atorvastatin (15) BMI 40.0-44.9, adult: Current visit: No Status: Chronic Needs a sleep study (16) DVT prophylaxis: Current visit: Yes Status: Acute heparin SC (17) Discharge planning issues: Current visit: Yes Status: Acute Anticipate discharge tomorrow. Will need a sleep study as outpatient. Will need cardiac rehab. Subjective Interval history since last seen: Remains in NSR, weight 127.2 kg this am. No shortness of breath, not requiring O2 overnight. BG 222 this am, 299 last night. C/o incisional chest pain when moving/coughing. Had an aspiration event this morning - choked on a piece of watermelon. She felt it got stuck somewhere at the top of the left lung. She was able to cough it up with a capella and chest PT. Exam Narrative Exam Narrative: General: Very pleasant middle-aged female, sitting up in a chair, A&Ox3, not in respiratory distress, not coughing in front of me HEENT: EOMI, MMM Heart: RRR, no m/r/g Lungs: CTAB - no crackles, wheezing, or stridor. GI: abdomen is soft, nontender, nondistended Extremities: 1+ BLE edema - improved from yesterday, in TEDs and SCD's. Objective Objective Clinical Data: Abnormal lab results 02/11/19 02/11/19 Range/Units 06:44 06:44 WBC 12.45 H (4.4-10.8) k/cumm RBC 3.02 L (4.00-5.20) m/cumm Hgb 8.6 L (12.0-15.5) g/dL Hct 28.5 L (36.0-46.0) % MCHC 30.2 L (32.0-36.0) g/dL RDW 14.9 H (11.7-14.6) % Plt Count 479 H (130-400) x1000/uL Absolute Neutrophils 9.10 H (1.2-6.7) k/cumm Absolute Monocytes 0.97 H (0.11-0.7) k/cumm BUN 60 H (7-18) mg/dL Creatinine 1.81 H (0.55-1.02) mg/dL Glucose 218 H D (70-100) mg/dL Vital Signs Temperature 35.0 C L 02/11/19 03:02 Temperature Source Temporal Artery Scan 02/11/19 03:02 Pulse 62 02/11/19 02:52 Pulse Rhythm Regular 02/11/19 05:47 Pulse 77 02/11/19 02:52 Respiratory Rate 22 02/11/19 02:52 Respiratory Effort 02/10/19 20:20 Respiratory Depth Normal 02/10/19 20:20 Respiratory Pattern Normal 02/10/19 20:20 Blood Pressure 155/71 H 02/11/19 02:52 Blood Pressure Mean 91 02/11/19 02:52 Blood Pressure Position Supine 02/08/19 22:50 Pulse Oximetry 95 02/10/19 13:16 Oxygen Delivery Method Room Air 02/10/19 13:15 Oxygen Flow Rate 0 02/10/19 13:15 Pain Level 0 02/10/19 13:15 Comment 02/10/19 07:24 Intake & Output 02/10/19 02/10/19 02/11/19 11:59 23:59 11:59 Intake Total 330.167 / 1300.167 970 / 1300.167 120 / 120 Output Total 675 / 1905 1230 / 1905 850 / 850 Balance -344.833 / -604.833 -260 / -604.833 -730 / -730 Weight 127.7 kg 127.2 kg Intake: IV 90.167 / 100.167 10 / 100.167 Oral 240 / 1200 960 / 1200 120 / 120 Output: Urine 675 / 1905 1230 / 1905 850 / 850 Other: Urine Color Pale Pale Pale Yellow Yellow Yellow Urine Appearance Clear Clear Clear Urine Odor None Comment incontinent of large amount urine in bed.complete bed change and am care done. Voiding Methods Incontinent Laboratory Results WBC 12.45 k/cumm (4.4-10.8) H 02/11/19 06:44 RBC 3.02 m/cumm (4.00-5.20) L 02/11/19 06:44 Hgb 8.6 g/dL (12.0-15.5) L 02/11/19 06:44 Hct 28.5 % (36.0-46.0) L 02/11/19 06:44 MCV 94.4 fL (80-95) 02/11/19 06:44 MCH 28.5 pg (27.0-33.0) 02/11/19 06:44 MCHC 30.2 g/dL (32.0-36.0) L 02/11/19 06:44 RDW 14.9 % (11.7-14.6) H 02/11/19 06:44 Plt Count 479 x1000/uL (130-400) H 02/11/19 06:44 MPV 9.3 fL (8.0-11.0) 02/11/19 06:44 Immature Gran % 1.4 02/11/19 06:44 Neutrophils % 73.1 02/11/19 06:44 Lymphocytes % 16.1 02/11/19 06:44 Monocytes % 7.8 02/11/19 06:44 Eosinophils % 1.5 02/11/19 06:44 Basophils % 0.1 02/11/19 06:44 Absolute Neutrophils 9.10 k/cumm (1.2-6.7) H 02/11/19 06:44 Absolute Lymphocytes 2.00 k/cumm (1.2-3.4) 02/11/19 06:44 Absolute Monocytes 0.97 k/cumm (0.11-0.7) H 02/11/19 06:44 Absolute Eosinophils 0.19 k/cumm (0.0-0.7) 02/11/19 06:44 Absolute Basophils 0.01 k/cumm (0.0-0.2) 02/11/19 06:44 Differential Comment Rbc morph reviewed 02/11/19 06:44 RBC Morphology See below 02/11/19 06:44 Polychromasia Present 02/11/19 06:44 Hypochromasia 2+ 02/11/19 06:44 Poikilocytosis 1+ 02/11/19 06:44 Basophilic Stippling Present 02/11/19 06:44 Anisocytosis 1+ 02/11/19 06:44 Macrocytosis 1+ 02/03/19 05:50 PT 11.6 sec (9.3-11.0) H 02/02/19 17:57 INR 1.2 (0.9-1.1) H 02/02/19 17:57 APTT 27.0 sec (21.0-31.4) 02/02/19 17:57 Sodium 138 mmol/L (136-145) 02/11/19 06:44 Potassium 4.1 mmol/L (3.5-5.1) 02/11/19 06:44 Chloride 100 mmol/L (98-107) 02/11/19 06:44 Carbon Dioxide 29.0 mmol/L (21.0-32.0) 02/11/19 06:44 Anion Gap 9.0 mmol/L (3-11) 02/11/19 06:44 BUN 60 mg/dL (7-18) H 02/11/19 06:44 Creatinine 1.81 mg/dL (0.55-1.02) H 02/11/19 06:44 Estimated GFR/1.73 m2 27.97 (mL/min/1.73m2) 02/11/19 06:44 Glucose 218 mg/dL (70-100) H D 02/11/19 06:44 Lactate 0.9 mmol/l (0.6-1.4) 02/04/19 12:25 Calcium 9.2 mg/dL (8.5-10.1) 02/11/19 06:44 Magnesium 2.2 mg/dL (1.8-2.4) 02/11/19 06:44 Iron 8 ug/dL (50-175) L 02/04/19 07:15 TIBC 251 ug/dL (250-450) 02/04/19 07:15 Transferrin % Sat 3 % (15-50) L 02/04/19 07:15 Ferritin 171 ng/mL (8-388) 02/04/19 07:15 Total Bilirubin 0.8 mg/dL (0.2-1.0) 02/02/19 17:57 AST 11 U/L (15-37) L 02/02/19 17:57 ALT 29 U/L (12-78) 02/02/19 17:57 Alkaline Phosphatase 124 U/L (46-116) H 02/02/19 17:57 Troponin I 0.16 ng/mL (0.00-0.06) H* 02/04/19 21:10 NT-Pro-B Natriuret Pep 5237 pg/mL (-299) H 02/04/19 07:15 Total Protein 7.0 g/dL (6.4-8.2) 02/02/19 17:57 Albumin 2.8 g/dL (3.4-5.0) L 02/02/19 17:57 Vitamin B12 1844 pg/mL (193-986) H 02/04/19 07:15 Folate > 20.0 ng/mL (8.6-20.0) H 02/04/19 07:15 Procalcitonin < 0.1 ng/mL 02/06/19 06:25 TSH 0.97 uIU/mL (0.358-3.74) 02/02/19 17:57 Urine Color Yellow (Yellow) 02/02/19 20:11 Urine Clarity Sl cloudy 02/02/19 20:11 Urine pH 5.5 (5-8) 02/02/19 20:11 Ur Specific [place] 1.015 (1.005-1.025) 02/02/19 20:11 Urine Protein 30 mg/dL (Negative) H 02/02/19 20:11 Urine Ketones Negative mg/dL (Negative) 02/02/19 20:11 Urine Blood Moderate (Negative) H 02/02/19 20:11 Urine Nitrite Negative (Negative) 02/02/19 20:11 Urine Bilirubin Negative (Negative) 02/02/19 20:11 Urine Urobilinogen 0.2 EU/dL (Up TO 0.2) 02/02/19 20:11 Ur Leukocyte Esterase Moderate (Negative) H 02/02/19 20:11 Urine RBC 10-20 (0-2) H 02/02/19 20:11 Urine WBC 10-20 HPF (0-5) 02/02/19 20:11 Ur Epithelial Cells Many HPF (Negative) 02/02/19 20:11 Urine Crystals Negative HPF (Negative) 02/02/19 20:11 Urine Bacteria Few HPF (Negative) 02/02/19 20:11 Urine Casts Negative LPF (Negative) 02/02/19 20:11 Urine Mucus Negative (Negative) 02/02/19 20:11 Urine Other (Negative) 02/02/19 20:11 Ur Culture Indicated? C&s done as ordered 02/02/19 20:11 Urine Glucose Negative mg/dL (Negative) 02/02/19 20:11 Vancomycin Trough 23.7 ug/mL (10.0-20.0) H* 02/06/19 11:08 Legionella Source (see note) 02/03/19 22:10 Legionella Reprt Status (see note) 02/03/19 22:10 Legionella Final Result (see note) 02/03/19 22:10 M. pneumoniae Source sputum 02/03/19 06:15 M. pneumoniae (PCR) Negative 02/03/19 06:15 Ur Strep pneumoniae Ag Negative (Negative) 02/03/19 22:10 CXR 02/11/19: Bilateral pleural effusions, stable appearance from 02/06/19.
[2019-02-11] MEDS: Ergocalciferol 50000 UNITS CAP PO (08:44)
[2019-02-11] MEDS: Normal Saline Flush 10 ML SYR IVP ×2 (08:44→11:42)
[2019-02-11] MEDS: dilTIAZem CD 120 MG CAPCR 240 MG PO (08:44)
[2019-02-11] MEDS: Aspirin E.C. 81 MG TABEC PO (08:44)
[2019-02-11] MEDS: DULoxetine 30 MG CAP 60 MG PO (08:44)
[2019-02-11] MEDS: Atorvastatin 40 MG TAB PO (08:44)
[2019-02-11] MEDS: Metoprolol CR 50 MG TABCR 150 MG PO (08:45)
[2019-02-11] MEDS: Cyanocobalamin 500 MCG TAB 1000 MCG PO (08:45)
[2019-02-11] MEDS: Calcium 600mg/Vit D 200U TAB 2 TAB PO ×2 (08:45→20:09)
[2019-02-11] MEDS: Folic Acid 1 MG TAB PO (08:45)
[2019-02-11] MEDS: predniSONE 20 MG TAB PO (08:45)
[2019-02-11] MEDS: Allopurinol 100 MG TAB PO (08:45)
[2019-02-11] MEDS: Gabapentin 600 MG TAB PO ×3 (08:45→20:09)
[2019-02-11] MEDS: Insulin Aspart 300 UNITS/3 ML PEN SC ×7 (09:15→22:20)
[2019-02-11] MEDS: Insulin Glargine 300 UNITS/3 ML PEN 20 UNITS SC (09:23)
--- NOTE | 2019-02-11 09:43 | PT.INTREAT ---
Date of service: 02/11/19 Time of Service: 09:44 PT Notes 02/11/19 SUBJECTIVE: Pt stating she has not had a good morning. She notes that she chocked on some watermelon this morning and it still feels stuck in her throat. She complains of right knee pain. She ultimately would like to transition to a cane and we can assess if this is appropriate. OBJECTIVE: Agreeable to short distance ambulation. TRANSFERS Sit to stand: SBA Stand to sit: SBA GAIT Device: FWW Weight bearing: Full Assist: SBA Distance: 75' Deviation: 2x right knee buckle with self recovery ASSESSMENT: Pt would like to transition to a single point cane although I do not feel this is appropriate at this time due to LE weakness and right knee pain. She is quite fatigued this morning from significant amount of coughing from chocking episode at breakfast. PLAN: Continue current POC progressing gait and strength as she is able to tolerate following sternal precautions. Treatment time: 10 minutes [id number] Christy Doss, COMPUTER NUMERICAL CONTROL GRINDER
--- NOTE | 2019-02-11 09:54 | CMDISCH_ITS ---
LACE Index Scoring Tool - Questions: Length of Stay (in days): 7 - 13 Acuity (Admit via E.D.?): Yes Comorbidities: Diabetes w/o Complication, Congestive Heart Failure, Chronic Pulmonary Disease, Liver or Renal Disease E.D. Visits: 6 - Answers: Total Score: 17 Risk of Readmission: High Risk Care Management Discharge Reason for Hospitalization: Healthcare acquired pneumonia Discharge Plan: Ann-Marie will discharge to her daughter's home when medically ready per provider. She will have resumption of home health services including nursing, PT and OT as well as new referral to Cardiac Rehab upon discharge. She will follow up [facility], her PCP as well as [facility] for Medicare [place] and Jack Matson (Ship Coordinator). Her daughter December will transport her home via private vehicle. Patient/Family Education Needs: Review of community based services, insurance resources, discharge instructions, discussed Ask Me Three. Services Needed at Discharge: DME Agency, Home Health Care Services, Occupational Therapy, Physical Therapy
--- NOTE | 2019-02-11 10:56 | DI.RAD_ITS ---
SYMPTOMS/DIAGNOSIS: CRACKLES RLL, FOLLOW UP, ? PNEUMONITIS PORTABLE AP CHEST AT 10:45 HOURS: The heart is at the upper limits of normal in size. There are multiple mediastinal vascular clips and sternal sutures. There are bilateral pleural effusions as noted on previous film of 02/06/19. No gross interval change in appearance since that time. Upper lung zones appear clear. Lower lung zones partially obscured by pleural effusions but no gross consolidation seen. CONCLUSION: Bilateral pleural effusions, stable appearance from 02/06/19.
[2019-02-11] MEDS: MORPHine 2 MG/ML SYR IVP (11:42)
[2019-02-11] MEDS: Acetaminophen 500 MG TAB 1000 MG PO (15:02)
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
--- NOTE | 2019-02-11 16:06 | PT.INTREAT ---
Date of service: 02/11/19 Time of Service: 15:05 PT Notes Inpatient Physical Therapy Treatment Note [facility] Date: 02/11/19 PRECAUTIONS: sternal, fall SUBJECTIVE: Ann-Marie states that her right knee has been very bothersome. She has had buckling of the knee for many years, reporting that her knee snaps backwards without any warning. She's anxious to get home, with discharge planned for tomorrow, per patient report. OBJECTIVE: BED MOBILITY/TRANSFERS Supine-sit: min A with HOB flat Sit-stand: SBA Stand-sit: SBA Bed-Chair: SBA with FWW GAIT Assistive Device: FWW Weight bearing: full Assist: SBA Distance: 75' Deviation: single rest period due to SCHREIBER THEREX: Instructed in quad setting activities and early closed chain strengthening within her tolerance. She is able to perform 3 reps of SLR with limited range, followed by AAROM for the remaining 7 reps. ASSESSMENT: Significant RLE weakness allowing for right knee instability. Tolerated introduction of quad strengthening well. PLAN: Continue PT intervention to maximize safety and mobility prior to returning home with family assistance. TREATMENT CODE/TIME: 3:05-3:30 ([id number]) Mariah Madera, PT, DPT [facility]
--- NOTE | 2019-02-11 16:12 | PTTR_ITS ---
Date of service: 02/11/19 Time of Service: 15:05 PT Notes Inpatient Physical Therapy Treatment Note [facility] Date: 02/11/19 PRECAUTIONS: sternal, fall SUBJECTIVE: Ann-Marie states that her right knee has been very bothersome. She has had buckling of the knee for many years, reporting that her knee snaps backwards without any warning. She's anxious to get home, with discharge planned for tomorrow, per patient report. OBJECTIVE: BED MOBILITY/TRANSFERS Supine-sit: min A with HOB flat Sit-stand: SBA Stand-sit: SBA Bed-Chair: SBA with FWW GAIT Assistive Device: FWW Weight bearing: full Assist: SBA Distance: 75' Deviation: single rest period due to SCHREIBER THEREX: Instructed in quad setting activities and early closed chain strengthening within her tolerance. She is able to perform 3 reps of SLR with limited range, followed by AAROM for the remaining 7 reps. ASSESSMENT: Significant RLE weakness allowing for right knee instability. Tolerated introduction of quad strengthening well. PLAN: Continue PT intervention to maximize safety and mobility prior to returning home with family assistance. TREATMENT CODE/TIME: 3:05-3:30 ([id number], [id number]) Mariah Madera, PT, DPT [facility]
[2019-02-11] MEDS: rOPINIRole 1 MG TAB (22:10)
[2019-02-11] MEDS: rOPINIRole 0.5 MG TAB 2 MG PO (22:11)
[2019-02-12] VITALS (8 sets, daily range): BP systolic 133–152; BP diastolic 63–79; PULSE 52–62; RESP 16–25; TEMP 36.4–36.5; O2SAT 93–95
[2019-02-12] MEDS: Heparin 5,000 UNITS/ML VIAL 5000 UNITS SC ×2 (05:26→13:55)
[2019-02-12 07:35] LABS: Abs Immature Grans 0.21 k/cumm (0.0-0.09); Absolute Basophil Count 0.01 k/cumm (0.0-0.2); Absolute Lymphocyte Count 2.14 k/cumm (1.2-3.4); Absolute Monocyte Count 0.92 k/cumm (0.11-0.7); Basophils % 0.1; Eosinophils % 1.4; HCT 30.1 % (36.0-46.0); Immature Grans % 1.5; Lymphocytes % 15.4; Mean Corp. HGB Concentration 29.9 g/dL (32.0-36.0); Mean Corpuscular Hemoglobin 28.4 pg (27.0-33.0); Mean Platelet Volume 9.3 fL (8.0-11.0); Monocytes % 6.6; Platelet Count 467 x1000/uL (130-400); RBC 3.17 m/cumm (4.00-5.20); White Blood Cell Count 13.88 k/cumm (4.4-10.8)
--- NOTE | 2019-02-12 07:35 | PDOC.CMDIS ---
- If Service Date Differs Date of service: 02/12/19 Time of Service: 07:36 LACE Index Scoring Tool - Questions: Length of Stay (in days): 7 - 13 Acuity (Admit via E.D.?): Yes Comorbidities: Previous M.I., Diabetes w/o Complication, Congestive Heart Failure E.D. Visits: 4 - Answers: Total Score: 17 Risk of Readmission: High Risk Care Management Discharge Reason for Hospitalization: Healthcare acquired pneumonia Discharge Plan: Ann-Marie will resume home health services for nursing, PT and OT. She will have an addition of speech therapy related to recent aspiration. Ann-Marie will be discharged to her daughter Melony's home. She will follow up with cardiac rehab when she is medically cleared. A referral was faxed to [facility] for assistance related to benefitis through Medicare. She will follow up with [facility] as directed. Daughter Melony will transport at time of discharge. faxed discharge notification to [facility]. Patient/Family Education Needs: Discharged education and limitations. Ann-Marie feels ready to be discharged and understands the follow up discharge plan. She has an appointment with cardiology on 04/03/19 and has scheduled follow up with primary care. Services Needed at Discharge: DME Agency, Home Health Care Services, Occupational Therapy, Physical Therapy, Speech Therapy
[2019-02-12 07:38] LABS: Absolute Eosinophil Count 0.19 k/cumm (0.0-0.7); Absolute Neutrophil Count 10.41 k/cumm (1.2-6.7)
--- NOTE | 2019-02-12 07:38 | CMDISCH_ITS ---
- If Service Date Differs Date of service: 02/12/19 Time of Service: 07:36 LACE Index Scoring Tool - Questions: Length of Stay (in days): 7 - 13 Acuity (Admit via E.D.?): Yes Comorbidities: Previous M.I., Diabetes w/o Complication, Congestive Heart Failure E.D. Visits: 4 - Answers: Total Score: 17 Risk of Readmission: High Risk Care Management Discharge Reason for Hospitalization: Healthcare acquired pneumonia Discharge Plan: Ann-Marie will resume home health services for nursing, PT and OT. She will have an addition of speech therapy related to recent aspiration. Ann-Marie will be discharged to her daughter Melony's home. She will follow up with cardiac rehab when she is medically cleared. A referral was faxed to [facility] for assistance related to benefitis through Medicare. [place] [facility] [place] Daughter Melony will transport at time of discharge. faxed discharge notification to [facility]. Patient/Family Education Needs: Discharged education and limitations. Ann-Marie feels ready to be discharged and understands the follow up discharge plan. She has an appointment with cardiology on 04/03/19 and has scheduled follow up with primary care. Services Needed at Discharge: DME Agency, Home Health Care Services, Occupational Therapy, Physical Therapy, Speech Therapy
[2019-02-12 07:47] LABS: Anion Gap 4.1 mmol/L (3-11); BUN 58 mg/dL (7-18); CO2 30.9 mmol/L (21.0-32.0); CREATININE 1.68 mg/dL (0.55-1.02); Calcium 9.2 mg/dL (8.5-10.1); Chloride 102 mmol/L (98-107); Estimated GFR 30.48 (mL/min/1.73m2); Glucose 224 mg/dL (70-100); Magnesium 2.2 mg/dL (1.8-2.4); Potassium 4.4 mmol/L (3.5-5.1); Sodium 137 mmol/L (136-145)
--- NOTE | 2019-02-12 08:12 | DI.RAD_ITS ---
SYMPTOM/DIAGNOSIS: ASPIRATION EVENT YESTERDAY, ? PNEUMONIA PA AND LATERAL CHEST: There are multiple mediastinal vascular clips consistent with previous CABG surgery. Heart is mildly enlarged. There are bilateral pleural effusions. Patchy radiodensities in the bases bilaterally which may represent areas of atelectasis or consolidation, little interval change from the previous study. CONCLUSION: Findings consistent with CHF with bilateral pleural effusions, superimposed bibasilar patchy pneumonia not excluded. No gross lobar consolidation is seen.
[2019-02-12] MEDS: Insulin Aspart 300 UNITS/3 ML PEN SC ×4 (09:19→12:55)
[2019-02-12] MEDS: Insulin Glargine 300 UNITS/3 ML PEN 20 UNITS SC (09:21)
[2019-02-12] MEDS: Calcium 600mg/Vit D 200U TAB 2 TAB PO (09:21)
[2019-02-12] MEDS: Normal Saline Flush 10 ML SYR IVP (09:21)
[2019-02-12] MEDS: Metoprolol CR 50 MG TABCR 150 MG PO (09:22)
[2019-02-12] MEDS: Cyanocobalamin 500 MCG TAB 1000 MCG PO (09:22)
[2019-02-12] MEDS: Folic Acid 1 MG TAB PO (09:23)
[2019-02-12] MEDS: Gabapentin 600 MG TAB PO ×2 (09:23→13:55)
[2019-02-12] MEDS: Allopurinol 100 MG TAB PO (09:23)
[2019-02-12] MEDS: DULoxetine 30 MG CAP 60 MG PO (09:23)
[2019-02-12] MEDS: predniSONE 20 MG TAB PO (09:23)
[2019-02-12] MEDS: dilTIAZem CD 120 MG CAPCR 240 MG PO (09:23)
[2019-02-12] MEDS: Atorvastatin 40 MG TAB PO (09:24)
[2019-02-12] MEDS: Aspirin E.C. 81 MG TABEC PO (09:24)
[2019-02-12] MEDS: Furosemide 20 MG TAB PO (09:24)
[2019-02-12] MEDS: Budesonide/Formoterol 160/4.5 6 GM 60 PUFF INH IH (12:08)
--- NOTE | 2019-02-12 12:15 | PT.INDS ---
Date of service: 02/12/19 Time of Service: 08:10 PT Notes Date: 02/08/2019 Referring Doctor: Oswald Cornell MD PT Orders: PT CONSULT: Eval/Treat Treatment Dates: 02/08/19 - 02/12/19 Precautions: Fall. Standard. Median sternotomy precautions. Patient Profile/Admitting Diagnosis: Patient is a 68-year-old female who presented to the ED on 02/02/2019 with chief complaints of L-sided chest pain. Patient was diagnosed with Healthcare-acquired Pneumonia, Gram (+) Bacteremia, and Atrial Flutter. Skilled PT services were recently provided for this patient for rehabilitative management of CABG x 3 and HCAP when patient was previously admitted to this hospital from 01/16/2019 through 01/22/2019. During her current admission, she's participated in7 PT sessions over the past 5 days. 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) Chronic obstructive lung disease (Chronic) Atrial fibrillation (Chronic) Restless leg syndrome (Chronic) Essential hypertension (Chronic) Hyperlipidemia (Chronic) History of coronary artery disease (Chronic) Abnormal mammography (Resolved) Ankle pain (Resolved 03/13/14) Carpal tunnel syndrome (Resolved 08/10/06) Cervical disc disorder with myelopathy (Resolved 08/21/08) Chest pain (Resolved) Diabetes mellitus (Resolved) Folate deficiency (Resolved 02/15/16) Hepatomegaly (Resolved) Hip joint inflamed (Resolved 09/03/15) Low back pain (Resolved 04/10/03) Menopausal syndrome (Resolved) Muscle fatigue (Resolved) Posterior tibial tendon dysfunction (Resolved) Postmenopausal bleeding (Resolved) Postoperative wound dehiscence (Resolved 12/23/15) Primary osteoarthritis of left hip (Resolved 09/17/15) Renal impairment (Resolved 07/11/03) Rotator cuff syndrome (Resolved 08/01/09) Smoker (Resolved 06/30/16) Tarsal tunnel syndrome (Resolved) Trochanteric bursitis (Resolved) Upper respiratory tract infection (Resolved 08/03/15) Vitamin D deficiency (Resolved) Atrial fibrillation COPD (chronic obstructive pulmonary disease) Carpal tunnel syndrome Cervical spondylosis with myelopathy Diabetes mellitus Gout Hypertension Spinal stenosis of lumbar region at multiple levels Vitamin D deficiency Surgical History S/P CABG (coronary artery bypass graft) (Acute ~01/15/19) H/O Spinal surgery (Resolved) H/O arthrodesis (Resolved) History of bilateral tubal ligation (Resolved) History of gynecologic surgery (Resolved) History of hip surgery (Resolved) History of orthopedic surgery (Resolved) S/P carpal tunnel release (Resolved) S/P cholecystectomy (Resolved) S/P rotator cuff repair (Resolved) Status post incision and drainage (Resolved) Arthrodesis Cholecystectomy (07/31/13) Endometrial Biopsy Left eye surgery Ligation of fallopian tube (~1980) Open Carpal Tunnel release Right wrist surgery Rotator Cuff Repair (~1980) SPINE SURGERY Total replacement of hip cervical repair (~10/2008) tarsal tunnel release (~1997) Social History/Home Situation: Ann-Marie states that she was living in a community home renting a room prior to her CABGx3 and a short term stay at [facility]. She was independent with all aspects of ADLs without the need for use of assistive ambulatory device nor an adaptive equipment. She states that the daughter has a ramp to enter the house with rails on both sides. The ramp goes onto the porch that leads to the kitchen. She reports that the home was sold and her children moved all of her stuff out and rented a storage retirement. She notes that she left her in August and that she is (I) with all ADLs/IADLs at her baseline level of function. Patient reports that her plan is to move into her daughters home. She states that her daughter has a tub/shower with no grab bars but they can put one up. Equipment Owned/DME: 2-FWW, 2-shower chairs, 2-canes, grab bars, sock aid, shoe horns Subjective: Patient pleasant and cooperative. She is agreeable to PT consult and treatment today. Patient has good mastery of sternotomy precautions. She plans on going home to patient's house as soon as she is safe to do so. Objective: General Observation: Patient returning from imaging in W/C at initiation of session. Median sternotomy incision well approximated. Flynn catheter in place. Otherwise, no lines. Mental Status: Alert and oriented x3 Pain: 0/10 ROM: Right Upper Extremity: Shoulder movements done only up to limits of movement precautions related to median sternotomy. Elbow flexion WFL. Wrist flexion WFL. Functional opening and closing of hand WFL. Left Upper Extremity: Shoulder movements done only up to limits of movement precautions related to median sternotomy. Elbow flexion WFL. Wrist flexion WFL. Functional opening and closing of hand WFL. WFL. Ankle dorsiflexion WFL. Ankle plantarflexion WFL. Right Lower Extremity: Hip flexion 0-110 wth range limited by abdominal panniculus. Hip abduction WFL. Knee flexion WFL. Ankle dorsiflexion WFL. Ankle plantarflexion WFL. Left Lower Extremity: Hip flexion 0-110 with range limited by abdominal panniculus. Hip abduction WFL. Knee flexion WFL. Ankle dorsiflexion WFL. Ankle plantarflexion WFL. Strength: Right Upper Extremity: Shoulder muscles not tested as median sternotomy precautions are still in effect with CABG x 3 done on 01/03/2019. Elbow flexors 5/5. Elbow extensors 5/5. Able Bodied Seaman strong. Left Upper Extremity: Shoulder muscles not tested as median sternotomy precautions are still in effect with CABG x 3 done on 01/03/2019. Elbow flexors 5/5. Elbow extensors 5/5. Able Bodied Seaman strong. Right Lower Extremity: Hip flexors 3/5. Hip abductors 4-/5. Knee flexors 4-/5. Knee extensors 5/5. Ankle dorsiflexors 5/5. Ankle plantarflexors 5/5. Left Lower Extremity:Hip flexors 3/5. Hip abductors 4/5. Knee flexors 4+/5. Knee extensors 4+/5. Ankle dorsiflexors 5/5. Ankle plantarflexors 5/5. Sensation: Intact as to pain and pressure to BLEs Bed Mobility/Transfers: Rolling independent Supine to sit independent with head of bed between 30 to 45 degrees Sit to supine : independent Sit to stand : independent Stand to sit: independent Bed to chair supervision with FWW Chair to bed : supervision with FWW Scooting in bed: independent Gait: Patient tolerated up to 150 feet using FWW, with primary limiting factor of knee pain. Today, she ambulated 15' with FWW and supervision only, with good equipment management and management of obstacles. Balance: Static Sitting: Good Dynamic Sitting: Good Static Standing: Good Dynamic Standing: Fair Special Tests: Mobility Limitations Standardized Measure [facility] AM-PAC 6 clicks Basic Mobility Inpatient Short Form: Raw Score: 23 CMS Score: 11% derficit Treatment: Today's session consisted of re-evaluation of safety and independence with ambulation, transfers and bed mobility, followed by instruction in a therapeutic exercise program. Patient tolerated the following, with need for minimal cues and instruction throughout: 1. LAQ x 10 2. Standing hip flexion x 10 with UE support to FWW 3. Ankle pumps Assessment: Patient is a 68- year-old female referred to physical therapy services with the diagnosis of HCAP, Gram + Bacteremia, and Atrial Flutter. Patient participated in 7 PT sessions over the past 5 days, with good improvements in functional mobility and activity tolerance. She'll benefit from ongoing PT intervention through services upon return home. Goals: Goals X1 week 1. Supine-Sit independent (MET) 2. Sit-Supine independent (MET) 3. Sit-Stand independent (MET) 4. Stand-Sit independent (MET) 5. Bed-Chair independent (MET) 6. Chair-Bed independent (MET) 7. Independent gait on level surface without use of assistive ambulatory device for at least 200 feet without report of chest pain nor dyspnea 8. Independent with home exercise program (Progressing toward) 9. Good dynamic standing balance/tolerance (Progressing toward) 10. Patient will perform 2-minute walk test without AD of at least 100 feet without report of chest pain nor dyspnea (not met) Plan of Care/Treatment Plan: 1-2x/day, 7 days/week x 1 week. D/C from PT in acute care setting. DISCHARGE RECOMMENDATIONS: Patient will benefit from resumption of home health physical therapy services in order to prepare patient for phase 2 outpatient cardiac rehab program, reduce fall risk, maximize functional mobility level, and to assess home safety at daughter's house. TREATMENT CODE/TIME: [id number] (8:10-8:30). Mariah Madera, PT, DPT [facility]
--- NOTE | 2019-02-12 12:43 | W.INDIABCONS ---
Date of service: 02/12/19 Time of Service: 12:43 Diabetes Inpatient Consult DESCRIPTION/ASSESSMENT: Follow up chart review for Ann-Marie Griggs who has experienced hyperglycemic since admission with increasing insulin dosing of 20u Lantus, insulin:carb at 1 unit covers 10 grams and insulin correction at moderate level. She is previously naive to insulin other than hospitalizations. She is currently on 20mg Prednisone. Despite increased insulin dosing blood sugars remain elevated today 232 fasting and 308 before lunch. Blood sugars do correct overnight ~60mg/dl. She is eating minimally. INTERVENTION: Suggest increasing mealtime insulin as it increases as the day progresses. Suggest resistant insulin correction. She could also increase her basal dose of Lantus to 28 units given fasting blood sugar is always above 200mg/dl. PLAN: Suggest increased insulin correction to resistant level. Suggest increase in Lantus to 28units to be reconsidered if prednisone dose decreases. Time Spent in Nutritional Counseling and Treatment: 0
--- NOTE | 2019-02-12 14:05 | DSE_ITS ---
Date of service: 02/12/19 Time of Service: 13:59 DS: Diagnosis Discharge Diagnosis (1) Aspiration into airway: Status: Acute (2) Atrial flutter with rapid ventricular response: Status: Chronic (3) Acute on chronic diastolic CHF (congestive heart failure): Status: Acute (4) Edema of both lower extremities: Status: Acute (5) Pulmonary hypertension: Status: Chronic (6) Acute kidney injury superimposed on chronic kidney disease: Status: Acute (7) Chronic obstructive lung disease: Status: Chronic (8) HCAP (healthcare-associated pneumonia): Status: Resolved (9) Steroid-induced hyperglycemia: Status: Acute (10) Diabetes mellitus: Status: Chronic (11) CAD (coronary artery disease): Status: Chronic (12) Anemia: Status: Chronic (13) UTI (urinary tract infection): Status: Resolved (14) Hyperlipidemia: Status: Chronic (15) BMI 40.0-44.9, adult: Status: Chronic (16) Sepsis: Status: Resolved Discharge Plan Disposition Patient Disposition: HOME Condition: Improving Discharge Details Reason For Visit: HOSPITAL ACQUIRED PNEUMONIA, A FLUTTER Admit Date/Time: 02/02/19 21:31 Admit Provider: Clarence Caban Attending Provider: Clarence Caban Primary Care Provider: Laisha Mcmahon Hospital Course Hospital Course: Ms Griggs is a 68 year old female with PMHx of CAD s/p CABG in 12/28, periop Afib, CKD stage 3, non-oxygen dependent COPD, chronic anemia, admitted to [facility] ICU on 02/02/19 with sepsis due to HCAP with hypoxia and UTI, with rapid aflutter. Her blood cultures were negative. Urine C&S grew mixed aurora. She was treated with diltiazem gtt, heparin gtt. Her antibioticswere taylored from zyvox, zosyn, doxycycline in ED, to vancomycin/zosyn/doxycycline. She did have an elevated troponin, felt by [facility] cardiology to be elevated due to her rapid ventricular rate. She was diuresed as she had elevated CVP pressures measured via CVL. Her EF on echo from 01/16/19 was 55-60%, and she had mild-moderate pulmonary hypertension. She had acute on chronic diastolic CHF. She required lasix gtt. Her Aflutter became rate controlled; cardizem gtt was transitioned to PO cardizem. Patient converted to NSR on 02/10/19. She was transitioned to PO diuresis, finished antibiotics, and no longer requires O2. She was transferred out of ICU on 02/09/19. On 02/11/19, the patient had an aspiration event - she had aspirated on a watermelon. She was eventually able to cough it up. However, her WBC is slightly up on the day of discharge, indicating a mild aspiration pneumonia. She will be discharged home with 5 days of augmentin, diuretics, bloodwork in 1 week. She is s/p PINEDA removal during her CABG - she does not need to be on anticoagulation. She is stable for discharge home with resumption of home health nursing, PT/OT, and new home health speech therapy. Home Meds and New Rx's Prescriptions: New metoprolol succinate 50 mg Tablet Extended Release 24 Hr 150 mg PO DAILY Qty: 30 RF: 0 ranitidine HCl 150 mg Tablet 150 mg PO BID Qty: 60 RF: 0 diltiazem HCl 120 mg Capsule,Extended Release 24hr 240 mg PO DAILY Qty: 30 RF: 0 pantoprazole [Protonix] 40 mg tablet,delayed release (DR/EC) 40 mg PO BID Qty: 60 RF: 0 amoxicillin-pot clavulanate [Augmentin] 500-125 mg tablet 1 tab PO BID Qty: 10 RF: 0 Continued omeprazole 40 mg capsule,delayed release(DR/EC) 40 mg PO DAILY Qty: 90 RF: 5 lancets 25 gauge misc .ROUTE .MEDSUPPLY Qty: 100 RF: 5 Victoza 2-Erick 0.6 mg/0.1 mL (18 mg/3 mL) pen injector 0.6 mg SC DAILY Qty: 6 RF: 4 pen needle, diabetic [1st Tier Unifine Pentips] 31 gauge x 1/4 needle .ROUTE .MEDSUPPLY Qty: 30 RF: 5 Blood Glucose Test strip .ROUTE .MEDSUPPLY Qty: 100 RF: 5 lancets [OneTouch Delica Lancets] 33 gauge misc .ROUTE DAILY Qty: 100 RF: 0 allopurinol 100 mg tablet 100 mg PO DAILY Qty: 90 RF: 12 gabapentin 600 mg tablet 600 mg PO TID Qty: 270 RF: 12 glipizide 10 mg tablet extended release 24hr 10 mg PO DAILY Qty: 90 RF: 11 atorvastatin 40 mg tablet 40 mg PO DAILY Qty: 90 RF: 6 duloxetine 60 mg capsule,delayed release(DR/EC) 60 mg PO DAILY Qty: 90 RF: 12 epinephrine [EpiPen 2-Erick] 0.3 MG/0.3 ML auto-injector 0.3 mg IM ONCE Qty: 2 RF: 10 folic acid 1 mg tablet 1 mg PO DAILY Qty: 90 RF: 5 nystatin 100,000 unit/gram cream 1 applic Topical BID PRN (Reason: yeast) Qty: 30 RF: 2 meclizine 12.5 mg tablet 25 mg PO TID PRN (Reason: dizziness) Qty: 60 RF: 3 ergocalciferol (vitamin D2) [Vitamin D2] 50,000 unit capsule 50,000 unit PO - Qty: 36 RF: 4 cyanocobalamin (vitamin B-12) [Vitamin B-12] 500 MCG tablet 1,000 mcg PO DAILY Qty: 100 RF: 0 polyethylene glycol 3350 [Miralax] 17 gram Powder In Packet 1 g PO PRN PRNRF: 0 magnesium hydroxide [Milk of Magnesia] 400 mg/5 mL Suspension 30 ml PO PRN PRN (Reason: Constipation) RF: 0 ropinirole [Requip] 2 mg tablet 2 mg PO QPM PRNRF: 0 calcium carbonate-vitamin D3 [Calcium 600 + D(3)] 600 mg(1,500mg) -200 unit Tablet 2 tab PO BID Qty: 60 RF: 0 aspirin [Aspir-81] 81 mg Tablet,Delayed Release (Dr/Ec) 81 mg PO DAILY Qty: 30 RF: 0 acetaminophen [Tylenol Extra Strength] 500 mg Tablet 1,000 mg PO Q8H PRN PRN (Reason: Pain) Qty: 0 RF: 0 oxycodone 5 mg Tablet 5 mg PO Q4H PRN PRN (Reason: Pain) Qty: 18 RF: 0 fluticasone propion-salmeterol [Advair Diskus] 100-50 mcg/dose Blister With Device 2 puff Inhalation BID RF: 0 Changed furosemide 40 mg tablet 20 mg PO BID Qty: 30 RF: 0 albuterol sulfate 2.5 mg /3 mL (0.083 %) Solution For Nebulization 2.5 mg INHALATION Q2H PRN PRN (Reason: shortness of breath or wheezing) Qty: 0 RF: 0 Discharge Instructions Instructions: Heart Failure (DC), Atrial Fibrillation (DC) Additional Instructions: Finish your antibiotics as prescribed. Return to the hospital with any fever, bleeding, chest pain, or shortness of breath. Weigh yourself daily - notify your PCP if you are gaining >2 lbs in 2 days - you may need extra lasix. Care Plan Goals: Home with home health RN, PT, OT and speech therapy Activity:: Activity as Tolerated Equipment/Supplies:: No Equipment Needed Diet:: diabetic cardiac Discharge Orders Discharge Orders: Discharge Order (Routine); Ordered 02/12/19 Ordered By: Elvira Mims Other Ambulatory Orders: Basic Metabolic Panel (Routine) Timeframe: 1 Week Location: Determined by Patient Ordered By: Elvira Mims Complete Blood Count w/Diff (Routine) Timeframe: 1 Week Location: Determined by Patient Ordered By: Elvira Mims Magnesium (Routine) Timeframe: 1 Week Location: Determined by Patient Ordered By: Elvira Mims Exam Narrative Exam Narrative: General: Very pleasant middle-aged female, sitting up in a chair, A&Ox3, not in respiratory distress, not coughing in front of me HEENT: EOMI, MMM Heart: RRR, no m/r/g Lungs: CTAB - no crackles, wheezing, or stridor. GI: abdomen is soft, nontender, nondistended Extremities: 1+ BLE edema - improved from yesterday, in TEDs and SCD's. DS: Data Vitals/I&O Vitals and I&O: Vital Signs Temperature 36.5 C 02/12/19 11:17 Temperature Source Tympanic 02/12/19 11:17 Pulse 60 02/12/19 11:17 Pulse Rhythm Regular 02/12/19 08:52 Pulse 58 L 02/12/19 08:33 Respiratory Rate 16 02/12/19 11:17 Respiratory Effort Non-Labored 02/12/19 08:52 Respiratory Depth Normal 02/12/19 08:52 Respiratory Pattern Normal 02/12/19 08:52 Blood Pressure 133/63 02/12/19 11:17 Blood Pressure Mean 94 02/12/19 08:33 Blood Pressure Position Supine 02/08/19 22:50 Pulse Oximetry 94 L 02/12/19 11:17 Oxygen Delivery Method Room Air 02/12/19 11:17 Oxygen Flow Rate 0 02/12/19 11:17 Pain Level 8 02/11/19 15:02 Comment 02/10/19 07:24 Intake & Output 02/11/19 02/12/19 02/12/19 23:59 11:59 23:59 Intake Total 240 / 600 570 / 810 240 / 810 Output Total 750 / 1600 1700 / 1900 200 / 1900 Balance -510 / -1000 -1130 / -1090 40 / -1090 Weight 128.7 kg Intake: IV 120 / 120 Oral 240 / 600 450 / 690 240 / 690 Output: Urine 750 / 1600 1700 / 1900 200 / 1900 Other: Urine Color Yellow Yellow Pale Straw Yellow Urine Appearance Clear Clear Clear Completed studies during hospitalization [Text1]: CXR 02/02/19: Overall improvement in the appearance of the chest with a persistent but decreased in size left basilar infiltrate and small bilateral pleural effusions CT chest 02/02/19: 1. No evidence of a pulmonary embolus, thoracic aortic dissection or aneurysm. 2. Bilateral pleural effusions, left greater than right. 3. Bilateral basilar air space opacities. This may represent atelectasis or pneumonia. 4. Recent post surgical changes in the chest. CXR 02/03/19: 1. Tip of the left subclavian central venous catheter is seen as it enters the superior vena cava. 2. No pneumothorax is seen. 3. Stable bilateral pleural effusions and left basilar infiltrate. CXR 02/06/19: Interval development of bilateral pleural effusions. Findings which would be consistent with congestive failure. A concomitant right lower lobe pneumontiis could not be excluded. US BLE's 02/09/19: There is no evidence of DVT in either lower extremity. CXR 02/11/19: Bilateral pleural effusions, stable appearance from 02/06/19. CXR PA and lateral 02/12/19: Findings consistent with CHF with bilateral pleural effusions, superimposed bibasilar patchy pneumonia not excluded. No gross lobar consolidation is seen. Labs on day of discharge: Labs from last 24 hours 02/12/19 02/12/19 07:20 07:20 WBC 13.88 H RBC 3.17 L Hgb 9.0 L Hct 30.1 L MCV 95.0 MCH 28.4 MCHC 29.9 L RDW 15.0 H Plt Count 467 H MPV 9.3 Immature Gran % 1.5 Neutrophils % 75.0 Lymphocytes % 15.4 Monocytes % 6.6 Eosinophils % 1.4 Basophils % 0.1 Absolute Neutrophils 10.41 H Absolute Lymphocytes 2.14 Absolute Monocytes 0.92 H Absolute Eosinophils 0.19 Absolute Basophils 0.01 Sodium 137 Potassium 4.4 Chloride 102 Carbon Dioxide 30.9 Anion Gap 4.1 BUN 58 H Creatinine 1.68 H Estimated GFR/1.73 m2 30.48 Glucose 224 H Calcium 9.2 Magnesium 2.2 PFSH Medical History Atrial flutter (Acute) Gram-positive bacteremia (Acute) HCAP (healthcare-associated pneumonia) (Resolved) Anemia (Chronic) Tarsal tunnel syndrome (Chronic 06/11/13) CKD (chronic kidney disease) stage 3, GFR 30-59 ml/min (Chronic) HAP (hospital-acquired pneumonia) (Resolved 01/15/19) Shingles (Resolved) Hip pain, left (Chronic) Hip pain, right (Chronic) Lump in neck (Chronic) Diabetes mellitus (Chronic) Hyperlipidemia (Chronic 08/10/00) Gout (Chronic 07/06/11) Spinal stenosis of lumbar region (Chronic 02/15/16) Restless legs (Chronic) Paroxysmal atrial fibrillation (Chronic 03/01/16) 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) Chronic obstructive lung disease (Chronic) Atrial fibrillation (Chronic) Restless leg syndrome (Chronic) Essential hypertension (Chronic) Hyperlipidemia (Chronic) History of coronary artery disease (Chronic) Abnormal mammography (Resolved) Ankle pain (Resolved 03/13/14) Carpal tunnel syndrome (Resolved 08/10/06) Cervical disc disorder with myelopathy (Resolved 08/21/08) Chest pain (Resolved) Diabetes mellitus (Resolved) Folate deficiency (Resolved 02/15/16) Hepatomegaly (Resolved) Hip joint inflamed (Resolved 09/03/15) Low back pain (Resolved 04/10/03) Menopausal syndrome (Resolved) Muscle fatigue (Resolved) Posterior tibial tendon dysfunction (Resolved) Postmenopausal bleeding (Resolved) Postoperative wound dehiscence (Resolved 12/23/15) Primary osteoarthritis of left hip (Resolved 09/17/15) Renal impairment (Resolved 07/11/03) Rotator cuff syndrome (Resolved 08/01/09) Smoker (Resolved 06/30/16) Tarsal tunnel syndrome (Resolved) Trochanteric bursitis (Resolved) Upper respiratory tract infection (Resolved 08/03/15) Vitamin D deficiency (Resolved) Atrial fibrillation Carpal tunnel syndrome Cervical spondylosis with myelopathy Gout Hypertension Spinal stenosis of lumbar region at multiple levels Vitamin D deficiency Surgical History S/P CABG (coronary artery bypass graft) (Chronic 01/03/19) H/O Spinal surgery (Resolved) H/O arthrodesis (Resolved) History of bilateral tubal ligation (Resolved) History of gynecologic surgery (Resolved) History of hip surgery (Resolved) History of orthopedic surgery (Resolved) S/P carpal tunnel release (Resolved) S/P cholecystectomy (Resolved) S/P rotator cuff repair (Resolved) Status post incision and drainage (Resolved) Arthrodesis Cholecystectomy (07/31/13) Endometrial Biopsy Left eye surgery Ligation of fallopian tube (~1980) Open Carpal Tunnel release Right wrist surgery Rotator Cuff Repair (~1980) SPINE SURGERY Total replacement of hip cervical repair (~10/2008) tarsal tunnel release (~1997) Family History Mother Diabetes Essential hypertension Personal history of malignant neoplasm Heart disease Hyperlipidemia Stroke Asthma Father Diabetes Essential hypertension Personal history of malignant neoplasm Heart disease Asthma Sister Diabetes Essential hypertension Depression Heart disease Asthma Grandfather No problems noted. Grandfather No problems noted. Grandmother Personal history of malignant neoplasm Grandmother Diabetes Aunt Personal history of malignant neoplasm Brother Hyperlipidemia Stroke Sister Asthma Son Asthma Daughter Depression Asthma Daughter Asthma Daughter Depression Neoplasm Asthma Brother No problems noted. Social History Smoking/Tobacco Use Status: Current every day Tobacco Type: cigarettes Alcohol Intake: current Alcohol Intake frequency: a few times a week Drug use: Never Substance use type: does not use Household members: other Details: 2 current occupation: [employer] Pets and animals: Yes Pets and animals: cat(s), dog(s) and horse(s) What type of physical activity do you participate in: none Saniya/Evangelical: Baptism Special saniya needs: No Do you feel safe at home: Yes Do you feel safe in your relationship?: Yes
[2019-02-12] MEDS: Amoxicillin 500/Clav. 125 TAB PO (14:54)
--- NOTE | 2019-02-13 11:54 | NUR.NOTE ---
Nursing Note: 02/12/19 Pt tranferred from icu room 219 to ms room 230. hr regular, lsc, positive bs x 4. pt alert and oriented x 3. Pt reports slight SOB with exertion, none witnessed at this time. One plus edema rle, trace edema lle. pt denies pain. Flynn in place draining clear yellow urine. Family aware of room change.
== END 2019-02-12 15:45 | disposition home or self-care (01) | DRG 193 ==
LOC: ER 22:03 → ICU 22:35 → MS 02-12 11:11 → ICU 02-13 15:55 → MS 02-13 15:55
PROVIDERS: Internal Medicine; Admitting Provider Internal Medicine; Emergency Provider Student in an Organized Health Care Education/Training Program; PCP Family Medicine; Visit Provider Internal Medicine
DX: I50.33 Acute on chronic diastolic (congestive) heart failure (principal); J18.9 Pneumonia, unspecified organism; A41.9 Sepsis, unspecified organism; J44.0 Chronic obstructive pulmonary disease with (acute) lower respiratory infection; I48.3 Typical atrial flutter; I47.2 Ventricular tachycardia; N17.9 Acute kidney failure, unspecified; Z68.41 Body mass index [BMI] 40.0-44.9, adult; N39.0 Urinary tract infection, site not specified; Y95 Nosocomial condition; I12.9 Hypertensive chronic kidney disease with stage 1 through stage 4 chronic kidney disease, or unspecified chronic kidney disease; N18.3 Chronic kidney disease, stage 3 (moderate); E11.22 Type 2 diabetes mellitus with diabetic chronic kidney disease; I27.20 Pulmonary hypertension, unspecified; E66.01 Morbid (severe) obesity due to excess calories; R09.02 Hypoxemia; E11.65 Type 2 diabetes mellitus with hyperglycemia; T38.0X5A Adverse effect of glucocorticoids and synthetic analogues, initial encounter; I25.10 Atherosclerotic heart disease of native coronary artery without angina pectoris; Z95.1 Presence of aortocoronary bypass graft; Z79.84 Long term (current) use of oral hypoglycemic drugs; Z71.3 Dietary counseling and surveillance; F17.210 Nicotine dependence, cigarettes, uncomplicated
CPT/HCPCS: 36410; 36415; 36591; 36592; 71045; 71275; 80048; 80053; 84145; 87040; 87077; 87449; 93005; 94640; 96361; 96365; 96366; 96368; 96375; 97110; 97162; 97530; 99223; 99232; 99233; 99239; 99252; 99285; 99355; NC; 71046; 80202; 81003; 81015; 82270; 82607; 82728; 82746; 83540; 83550; 83605; 83735; 83880; 84443; 84484; 85014; 85018; 85025; 85610; 85730; 87070; 87086; 87205; 87450; 87581; 93010; 93970; 94667; 99356; 99357; J0153; J1644; J1940; J1941; J2020; J2270; J2543; J3475; J3490; J7512; J7614

== ENCOUNTER 2019-02-26 12:51 | Outpatient (RCR) | payer BC, MEDICARE, SELFPAY | END 2019-03-10 23:59 | disposition home or self-care (01) | LOC: CR 12:51 | PROVIDERS: PCP Family Medicine; Visit Provider Family Medicine | DX: Z95.1 Presence of aortocoronary bypass graft (principal); Z51.89 Encounter for other specified aftercare ==

== ENCOUNTER 2019-03-03 13:00 | Inpatient (IN) | payer BC, MEDICARE, SELFPAY ==
[2019-03-03] VITALS (77 sets, daily range): BP systolic 96–153; BP diastolic 45–118; PULSE 61–142; RESP 13–28; TEMP 36.5–36.9; O2SAT 91–98
--- NOTE | 2019-03-03 13:04 | NUR.NOTE ---
Nursing Note: pt oxygen saturation began to drop. Pt placed back on 4 liters nasal canula by RT Mendez. MD almeida at bedside
[2019-03-03 13:27] LABS: Abs Immature Grans 0.08 k/cumm (0.0-0.09); Absolute Basophil Count 0.13 k/cumm (0.0-0.2); Eosinophils % 3.6; HCT 36.1 % (36.0-46.0); HGB 10.7 g/dL (12.0-15.5); Immature Grans % 0.6; Lymphocytes % 13.9; Mean Corp. HGB Concentration 29.6 g/dL (32.0-36.0); Mean Corpuscular Hemoglobin 27.3 pg (27.0-33.0); Mean Corpuscular Volume 92.1 fL (80-95); Mean Platelet Volume 9.6 fL (8.0-11.0); Monocytes % 5.2; Neutrophils % 75.7; Platelet Count 456 x1000/uL (130-400); RBC 3.92 m/cumm (4.00-5.20); RBC Distribution Width 16.2 % (11.7-14.6)
[2019-03-03 13:28] LABS: Absolute Eosinophil Count 0.48 k/cumm (0.0-0.7); Absolute Lymphocyte Count 1.83 k/cumm (1.2-3.4); Absolute Monocyte Count 0.69 k/cumm (0.11-0.7); Absolute Neutrophil Count 9.99 k/cumm (1.2-6.7)
[2019-03-03 13:53] LABS: ALT 23 U/L (12-78); AST 11 U/L (15-37); Albumin 3.1 g/dL (3.4-5.0); Alkaline Phosphatase 97 U/L (46-116); Anion Gap 7.1 mmol/L (3-11); BUN 26 mg/dL (7-18); Bilirubin, Total 0.4 mg/dL (0.2-1.0); CO2 32.9 mmol/L (21.0-32.0); CREATININE 1.98 mg/dL (0.55-1.02); Calcium 9.5 mg/dL (8.5-10.1); Chloride 100 mmol/L (98-107); Estimated GFR 25.22 (mL/min/1.73m2); Glucose 192 mg/dL (70-100); Magnesium 1.5 mg/dL (1.8-2.4); NT-proBNP 5050 pg/mL; Potassium 4.7 mmol/L (3.5-5.1); Sodium 140 mmol/L (136-145); Total Protein 7.3 g/dL (6.4-8.2)
[2019-03-03 14:02] LABS: Troponin I < 0.05 ng/mL (0.00-0.06)
--- NOTE | 2019-03-03 14:33 | W.ED.GENAD ---
Discharge Plan Disposition Patient Disposition: [facility] INPATIENT Condition: Serious Discharge Details Chief Complaint: SOB Clinical Impression: Hypoxia, CHF (congestive heart failure) Admit Date/Time: 03/03/19 16:32 Admit Provider: Oswald Cornell Attending Provider: Oswald Cornell Primary Care Provider: Laisha Mcmahon ED Provider: Darshan Campos Discharge Data Discharge Date/Time-TO BE ENTERED AT DEPARTURE: 03/03/19 17:35 Medical Decision Making 14:30 --patient seen immediately on arrival. Recent hypoxic on arrival requiring supplemental nasal cannula oxygen at 4 L. Ann-Marie is a 68-year-old female with multiple medical problems including history of coronary artery disease, CHF, pulmonary hypertension, atrial flutter, status post CABG, chronic kidney disease, here today with shortness of breath that started 3 days ago and has persisted. Patient noted to have an oxygen saturation in the 72 to 77% range by home health today. Patient has had generalized weakness, dizziness and shortness of breath over the past few days. ECG was reviewed and interpreted by me: Sinus rhythm 66 bpm, normal axis, [address] elevation is noted in lead V1 and V2 with subtle ST depressions noted V4 and V5. These findings are similar to prior EKG from 02/10/2019. Concern for worsening pulmonary hypertension versus pulmonary embolism versus recurrent pneumonia versus other. Labs reviewed and leukocytosis noted. Patient has chronic kidney disease. I reviewed results with the patient and we discussed diagnostic treatment options. Patient provides informed consent to proceed with CT of the chest to assess for pulmonary embolism. Plan to give IV fluid bolus Hypomagnesemia noted. I will give 1 g of magnesium IV. 16:08 -- CT of the chest interpreted by radiology: Bibasilar atelectasis with small left pleural effusion. No other specific etiology identified for patient's symptoms. Labs reviewed and BNP elevated. This has been been elevated in the past. Concern for CHF. Troponin is neg. Patient reassessed and has remained stable here in the [facility] department on nasal cannula oxygen 4 L. She is currently saturating 92 to 94% in no respiratory distress. I called and spoke with Dr. Daniel Melgar who will admit the patient. Care transition to Dr. Sanchez at this time. HPI General Mode of arrival: EMS. Date/Time Provider Initiated Documentation: 03/03/19 13:08. Limitations to Documentation: no limitations. Information obtained by: patient and EMS. HPI Narrative: 68-year-old female with multiple medical problems including history of CAD, CHF, pulmonary hypertension, atrial flutter, status post CABG, CKD, here today with shortness of breath that started 3 days ago and has persisted. Severe today. Worse with exertion. Patient noted to have an oxygen saturation in the 72 to 77% range at home. Oxygen applied by EMS and pulseox imporoved to 90s. Patient does not use supplemental oxygen. Patient has had associated generalized weakness and dizziness over the past few days. No chest pain. No fever. Related Data Home Medications Medication Instructions Recorded Confirmed cyanocobalamin (vitamin B-12) 1,000 mcg PO DAILY #100 tab 02/16/17 03/03/19 [Vitamin B-12] epinephrine [EpiPen 2-Erick] 0.3 mg IM ONCE #2 dose 12/11/17 03/03/19 folic acid 1 mg tablet 1 mg PO DAILY #90 tab 05/21/18 03/03/19 atorvastatin 40 mg tablet 40 mg PO DAILY #90 tab-cap 06/14/18 03/03/19 duloxetine 60 mg capsule,delayed 60 mg PO DAILY #90 tab-cap 06/14/18 03/03/19 release allopurinol 100 mg tablet 100 mg PO DAILY #90 tab-cap 08/09/18 03/03/19 gabapentin 600 mg tablet 600 mg PO TID #270 tab-cap 08/09/18 03/03/19 glipizide ER 10 mg tablet, 10 mg PO DAILY #90 tab-cap 08/09/18 03/03/19 extended release 24 hr nystatin 100,000 unit/gram topical 1 applic TOPICAL BID PRN #30 gm 12/04/18 03/03/19 cream meclizine 12.5 mg tablet 25 mg PO TID PRN #60 tab 12/17/18 03/03/19 blood sugar diagnostic strips #100 each 12/18/18 02/21/19 lancets 33 gauge #100 each 12/18/18 02/21/19 pen needle, diabetic 31 gauge x #30 each 12/18/18 02/21/19 1/4 magnesium hydroxide [Milk of 30 ml PO PRN PRN 01/15/19 03/03/19 Magnesia] polyethylene glycol 3350 [Miralax] 1 g PO PRN PRN 01/15/19 03/03/19 ropinirole [Requip] 2 mg PO QPM PRN 01/15/19 03/03/19 acetaminophen [Tylenol Extra 1,000 mg PO Q8H PRN PRN #0 tab 01/22/19 03/03/19 Strength] aspirin [Aspir-81] 81 mg PO DAILY #30 tab 01/22/19 03/03/19 calcium carbonate-vitamin D3 2 tab PO BID #60 tab 01/22/19 03/03/19 [Calcium 600 + D(3)] lancets 25 gauge #100 each 01/29/19 02/21/19 ergocalciferol (vitamin D2) 50,000 50,000 unit PO M-W- #36 tab-cap 01/30/19 03/03/19 unit capsule fluticasone propion-salmeterol 2 puff INHALATION BID 02/02/19 03/03/19 [Advair Diskus] albuterol sulfate 2.5 mg INHALATION Q2H PRN PRN #0 ml 02/12/19 03/03/19 budesonide-formoterol HFA 160 2 puff IH BID #10.2 gm 02/21/19 03/03/19 mcg-4.5 mcg/actuation aerosol inhaler diltiazem CD 120 mg 240 mg PO DAILY #180 cap 02/21/19 03/03/19 capsule,extended release 24 hr metoprolol succinate ER 50 mg 150 mg PO DAILY #270 tab 02/21/19 03/03/19 tablet,extended release 24 hr liraglutide 0.6 mg/0.1 mL (18 mg/3 1.8 mg SC DAILY #27 ml 02/22/19 03/03/19 mL) subcutaneous pen injector tramadol 50 mg tablet 50 mg PO BID PRN #20 tab 02/28/19 03/03/19 furosemide 40 mg PO DAILY 03/03/19 03/03/19 omeprazole 80 mg PO BID 03/03/19 03/03/19 Previous Rx's Medication Instructions Recorded cyanocobalamin (vitamin B-12) 1,000 mcg PO DAILY #100 tab 02/16/17 [Vitamin B-12] epinephrine [EpiPen 2-Erick] 0.3 mg IM ONCE #2 dose 12/11/17 folic acid 1 mg tablet 1 mg PO DAILY #90 tab 05/21/18 atorvastatin 40 mg tablet 40 mg PO DAILY #90 tab-cap 06/14/18 duloxetine 60 mg capsule,delayed 60 mg PO DAILY #90 tab-cap 06/14/18 release allopurinol 100 mg tablet 100 mg PO DAILY #90 tab-cap 08/09/18 gabapentin 600 mg tablet 600 mg PO TID #270 tab-cap 08/09/18 glipizide ER 10 mg tablet, 10 mg PO DAILY #90 tab-cap 08/09/18 extended release 24 hr nystatin 100,000 unit/gram topical 1 applic TOPICAL BID PRN #30 gm 12/04/18 cream meclizine 12.5 mg tablet 25 mg PO TID PRN #60 tab 12/17/18 blood sugar diagnostic strips #100 each 12/18/18 lancets 33 gauge #100 each 12/18/18 pen needle, diabetic 31 gauge x #30 each 12/18/18 1/4 acetaminophen [Tylenol Extra 1,000 mg PO Q8H PRN PRN #0 tab 01/22/19 Strength] aspirin [Aspir-81] 81 mg PO DAILY #30 tab 01/22/19 calcium carbonate-vitamin D3 2 tab PO BID #60 tab 01/22/19 [Calcium 600 + D(3)] lancets 25 gauge #100 each 01/29/19 ergocalciferol (vitamin D2) 50,000 50,000 unit PO M-W-F #36 tab-cap 01/30/19 unit capsule albuterol sulfate 2.5 mg INHALATION Q2H PRN PRN #0 ml 02/12/19 budesonide-formoterol HFA 160 2 puff IH BID #10.2 gm 02/21/19 mcg-4.5 mcg/actuation aerosol inhaler diltiazem CD 120 mg 240 mg PO DAILY #180 cap 02/21/19 capsule,extended release 24 hr metoprolol succinate ER 50 mg 150 mg PO DAILY #270 tab 02/21/19 tablet,extended release 24 hr liraglutide 0.6 mg/0.1 mL (18 mg/3 1.8 mg SC DAILY #27 ml 02/22/19 mL) subcutaneous pen injector tramadol 50 mg tablet 50 mg PO BID PRN #20 tab 02/28/19 Allergies Allergy/AdvReac Type Severity Reaction Status Date / Time venom-honey bee Allergy Severe ANAPHYLAXIS Verified 02/21/19 13:10 adhesive Allergy BLISTERS Verified 02/21/19 13:10 General Stated Complaint: SOB STEPHANIE: 3 Review of Systems Review of Systems All systems reviewed & are unremarkable except as noted in HPI and below Constitutional Denies fever(s) Cardiovascular Denies chest pain and Reports dyspnea Respiratory Denies cough, Denies hemoptysis and Reports dyspnea PFS Medical History Atrial flutter with rapid ventricular response (Chronic) Pulmonary hypertension (Chronic) Acute diastolic CHF (congestive heart failure) (Chronic) CAD (coronary artery disease) (Chronic) HCAP (healthcare-associated pneumonia) (Resolved) Anemia (Chronic) Tarsal tunnel syndrome (Chronic 06/11/13) CKD (chronic kidney disease) stage 3, GFR 30-59 ml/min (Chronic) Shingles (Resolved) Hip pain, left (Chronic) Hip pain, right (Chronic) Lump in neck (Chronic) Diabetes mellitus (Chronic) Hyperlipidemia (Chronic 08/10/00) Gout (Chronic 07/06/11) Spinal stenosis of lumbar region (Chronic 02/15/16) Restless legs (Chronic) Paroxysmal atrial fibrillation (Chronic 03/01/16) 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) Chronic obstructive lung disease (Chronic) Atrial fibrillation (Chronic) Restless leg syndrome (Chronic) Essential hypertension (Chronic) Hyperlipidemia (Chronic) History of coronary artery disease (Chronic) Abnormal mammography (Resolved) Ankle pain (Resolved 03/13/14) Carpal tunnel syndrome (Resolved 08/10/06) Cervical disc disorder with myelopathy (Resolved 08/21/08) Chest pain (Resolved) Diabetes mellitus (Resolved) Folate deficiency (Resolved 02/15/16) Gram-positive bacteremia (Resolved) HAP (hospital-acquired pneumonia) (Resolved 01/15/19) Hepatomegaly (Resolved) Hip joint inflamed (Resolved 09/03/15) Low back pain (Resolved 04/10/03) Menopausal syndrome (Resolved) Muscle fatigue (Resolved) Posterior tibial tendon dysfunction (Resolved) Postmenopausal bleeding (Resolved) Postoperative wound dehiscence (Resolved 12/23/15) Primary osteoarthritis of left hip (Resolved 09/17/15) Renal impairment (Resolved 07/11/03) Rotator cuff syndrome (Resolved 08/01/09) Smoker (Resolved 06/30/16) Tarsal tunnel syndrome (Resolved) Trochanteric bursitis (Resolved) Upper respiratory tract infection (Resolved 08/03/15) Vitamin D deficiency (Resolved) Atrial flutter (Inactive) Atrial fibrillation Carpal tunnel syndrome Cervical spondylosis with myelopathy Gout Hypertension Spinal stenosis of lumbar region at multiple levels Vitamin D deficiency Surgical History S/P CABG (coronary artery bypass graft) (Chronic 01/03/19) H/O Spinal surgery (Resolved) H/O arthrodesis (Resolved) History of bilateral tubal ligation (Resolved) History of gynecologic surgery (Resolved) History of hip surgery (Resolved) History of orthopedic surgery (Resolved) S/P carpal tunnel release (Resolved) S/P cholecystectomy (Resolved) S/P rotator cuff repair (Resolved) Status post incision and drainage (Resolved) Arthrodesis Cholecystectomy (07/31/13) Endometrial Biopsy Left eye surgery Ligation of fallopian tube (~1980) Open Carpal Tunnel release Right wrist surgery Rotator Cuff Repair (~1980) SPINE SURGERY Total replacement of hip cervical repair (~10/2008) tarsal tunnel release (~1997) Family History Mother Diabetes Essential hypertension Personal history of malignant neoplasm Heart disease Hyperlipidemia Stroke Asthma Father Diabetes Essential hypertension Personal history of malignant neoplasm Heart disease Asthma Sister Diabetes Essential hypertension Depression Heart disease Asthma Grandfather No problems noted. Grandfather No problems noted. Grandmother Personal history of malignant neoplasm Grandmother Diabetes Aunt Personal history of malignant neoplasm Brother Hyperlipidemia Stroke Sister Asthma Son Asthma Daughter Depression Asthma Daughter Asthma Daughter Depression Neoplasm Asthma Brother No problems noted. Social History Smoking/Tobacco Use Status: Current every day Tobacco Type: cigarettes Alcohol Intake: current Alcohol Intake frequency: a few times a week Drug use: Never Substance use type: does not use Household members: other Details: 2 current occupation: [employer] Pets and animals: Yes Pets and animals: cat(s), dog(s) and horse(s) What type of physical activity do you participate in: none Saniya/Religious: Zoroastrianism Special saniya needs: No Do you feel safe at home: Yes Do you feel safe in your relationship?: Yes Exam Const General: cooperative and no acute distress HENMT Head: normocephalic Mouth: moist mucous membranes Eyes Conjunctivae: normal conjunctivae Sclera: normal sclerae Neck Neck: trachea midline, supple and no JVD Resp Effort & Inspection: normal respiratory effort, no cough, no respiratory distress and other (on NC O2 4L) Auscultation: rales bilaterally at the base (fine), no rhonchi and no wheezes Cardio Jugular venous pressure: no JVD Rate: regular rate and not tachycardic Rhythm: regular rhythm GI Palpation: soft, not firm, no guarding, no masses, not rigid and nontender Skin General skin exam: no rashes or lesions noted Neuro General: alert, awake, oriented x3 and tone normal Extrem General: no calf tenderness and edema Laterality: bilateral (trace) Psych Appearance: grossly normal Course Vital Signs Respiratory Rate 03/03/19 12:54 Pulse Oximetry 91 L 03/03/19 12:54 Temperature 36.9 C 03/03/19 13:01 Temperature Source Oral 03/03/19 13:01 Pulse 71 03/03/19 13:16 Pulse 67 03/03/19 13:20 Respiratory Rate 17 03/03/19 13:20 Respiratory Effort Non-Labored 03/03/19 13:06 Respiratory Depth Normal 03/03/19 13:06 Respiratory Pattern Normal 03/03/19 13:06 Blood Pressure 100/68 03/03/19 13:16 Blood Pressure Mean 74 03/03/19 13:16 Pulse Oximetry 94 L 03/03/19 13:20 Lab/Test Results Lab/Test Results: Laboratory Tests Range/Units 03/03/19 03/03/19 13:20 13:20 WBC (4.4-10.8) k/cumm 13.20 H RBC (4.00-5.20) m/cumm 3.92 L Hgb (12.0-15.5) g/dL 10.7 L Hct (36.0-46.0) % 36.1 MCV (80-95) fL 92.1 MCH (27.0-33.0) pg 27.3 MCHC (32.0-36.0) g/dL 29.6 L RDW (11.7-14.6) % 16.2 H Plt Count (130-400) x1000/uL 456 H MPV (8.0-11.0) fL 9.6 Immature Gran % 0.6 Neutrophils % 75.7 Lymphocytes % 13.9 Monocytes % 5.2 Eosinophils % 3.6 Basophils % 1.0 Absolute Neutrophils (1.2-6.7) k/cumm 9.99 H Absolute Lymphocytes (1.2-3.4) k/cumm 1.83 Absolute Monocytes (0.11-0.7) k/cumm 0.69 Absolute Eosinophils (0.0-0.7) k/cumm 0.48 Absolute Basophils (0.0-0.2) k/cumm 0.13 Sodium (136-145) mmol/L 140 Potassium (3.5-5.1) mmol/L 4.7 Chloride (98-107) mmol/L 100 Carbon Dioxide (21.0-32.0) mmol/L 32.9 H Anion Gap (3-11) mmol/L 7.1 BUN (7-18) mg/dL 26 H Creatinine (0.55-1.02) mg/dL 1.98 H Estimated GFR/1.73 m2 (mL/min/1.73m2) 25.22 Glucose (70-100) mg/dL 192 H Calcium (8.5-10.1) mg/dL 9.5 Magnesium (1.8-2.4) mg/dL 1.5 L Total Bilirubin (0.2-1.0) mg/dL 0.4 AST (15-37) U/L 11 L ALT (12-78) U/L 23 Alkaline Phosphatase (46-116) U/L 97 Troponin I (0.00-0.06) ng/mL < 0.05 NT-Pro-B Natriuret Pep ( - 299) pg/mL 5050 H Total Protein (6.4-8.2) g/dL 7.3 Albumin (3.4-5.0) g/dL 3.1 L
--- NOTE | 2019-03-03 14:36 | NUR.NOTE ---
Nursing Note: pt to CT
--- NOTE | 2019-03-03 15:00 | DI.CT_ITS ---
SYMPTOM/DIAGNOSIS: SHORTNESS OF BREATH HYPOXIA, WEAKNESS CHEST CT FOR PULMONARY EMBOLISM: CT angiography was performed with multi slice acquisition and multi planar and 3D reconstruction. Comparison is made with 30 December 2018. There is no evidence of pulmonary emboli or aortic dissection. Sternal wires and mediastinal clips are again noted related to prior CABG. There is a moderate sized left pleural effusion. There is a tiny right pleural effusion. There is respiratory motion at the lung bases limiting the exam. Infiltrate vs atelectasis is seen at the right lung base. There are stable bilateral adrenal masses. The patient is status post cholecystectomy. A cyst is again noted at the upper pole of the right kidney. IMPRESSION: Moderate size left pleural effusion. Right lower lobe infiltrate vs atelectasis.
[2019-03-03] MEDS: Omnipaque 350 MG/ML 100 ML BTL IJ (15:02)
[2019-03-03] MEDS: MAGNESIUM SULFATE 1 GM/100 ML BAG IVPB (15:06)
--- NOTE | 2019-03-03 15:33 | DI.VRAD_ITS ---
EXAM: CT Angiography Chest With Contrast EXAM DATE/TIME: 03/03/2019 1:09 PM CLINICAL HISTORY: 68 years old, female; Shortness of breath; Patient HX: SOB, weakness, hypoxia TECHNIQUE: Imaging protocol: Axial computed tomographic angiography images of the chest with intravenous contrast using CT angiography protocol. Coronal and sagittal reformatted images were created and reviewed. 3D rendering: MIP reconstructed images were created and reviewed. Radiation optimization: All CT scans at this facility use at least one of these dose optimization techniques: automated exposure control; mA and/or kV adjustment per patient size (includes targeted exams where dose is matched to clinical indication); or iterative reconstruction. Contrast material: OMNI 350; Contrast volume: 80 ml; Contrast route: IV; COMPARISON: CT CHEST PE CTA 02/02/2019 7:24 PM FINDINGS: Prior right thyroidectomy. Prior median sternotomy. No evidence of pulmonary embolism. Mild to moderate left pleural effusion. Mild left basilar consolidation most likely represent atelectasis. Mild right basilar atelectasis. Thoracic aorta unremarkable. No significant hilar or mediastinal adenopathy. Prior cholecystectomy. 4.8 cm right adrenal mass unchanged from the prior examination. 3.2 cm left adrenal mass unchanged. IMPRESSION: 1. Bibasilar atelectasis with small left pleural effusion. 2. No other specific etiology identified for the patient's symptoms. Dictated and Authenticated by: Abdiel Garcia MD. Ordering:KAROLINE Sexton MD
[2019-03-03] MEDS: Normal Saline 500 ML 1000 ML IV (15:42)
[2019-03-03 17:36] LABS: Troponin I < 0.05 ng/mL (0.00-0.06)
--- NOTE | 2019-03-03 17:37 | HPE_ITS ---
Date of service: 03/03/19 Time of Service: 17:08 Assessment and Plan (1) Hypoxia: Start date: 03/03/19 Start time: 17:26 Current visit: Yes Status: Acute After eating out on Monday became sick with nausea/vomiting/diarrhea. U nable to eat over course of weekend, feeling sick and tired, called home health nurse for evaluation and found to be hypoxic in the 70's placed on 4L and brought in to [facility]. CT with contrast revealed Bibasilar atelectasis with small left pleural effusion. No other specific etiology identified for the patient's symptoms. Consider hypoxia from CHF, bnp is 5050, on last admission she was in CHF at 5000. Gentle lasix drip ordered, lung sounds clear, no edema to BLE, JVD minimal. Monitor HR on telemetry. Daily weights, monitor output (2) Acute diastolic CHF (congestive heart failure): Start date: 03/03/19 Start time: 17:26 Current visit: No Status: Chronic Lasix drip, daily weights, strict i/o. see above (3) CAD (coronary artery disease): Start date: 03/03/19 Start time: 17:32 Current visit: No Status: Chronic S/P 3 vessel CABG and LA appendage excision 01/03/2019 (4) CKD (chronic kidney disease) stage 3, GFR 30-59 ml/min: Start date: 03/03/19 Start time: 17:33 Current visit: No Status: Chronic Elevated BUN and Creatinine does have CKD did receive CT contrast in the ED, despite elevated creatinine greater than 1.5, cautiously and gently diuresising, and monitoring kidney function daily (5) S/P CABG (coronary artery bypass graft): Start date: 03/03/19 Start time: 17:36 Current visit: No Status: Chronic See above (6) Diabetes mellitus: Start date: 03/03/19 Start time: 17:36 Current visit: No Status: Chronic SSI with carb counting, heart healthy diet. Qualifiers: Diabetes mellitus complication detail: with chronic kidney disease Diabetes mellitus complication status: with kidney complications Diabetes mellitus penitentiary insulin use: without penitentiary use Diabetes mellitus type: type 2 History of Present Illness Chief Complaint: CHF EXACERBATION Narrative: 68 yr. Old Female w/ PMH CAD s/p 3 vessel CABG, LA appendage excision 01/03/2019, after NSTEMI, PAF (no longer requiring anticoagulation after surgery), DM type 2, CKD, obesity, COPD, depression, gout, RLS, Spinal stenosis, hospitalized 02/02/2019 for CHF, new aflutter. She now presents to the emergency department with weakness, fatigue, nausea and now requiring 4 L oxygen. Mrs. Griggs, went out dinner on and started throwing up, woke up Monday feeling tired with loss of appetite and fatigue on Monday. Today the home health nurse was called to evaluate. At the house her oxygen saturation was in the 70's per patient. She was placed on 4 L with a saturation of 96%. A CT scan was obtained in the ED revealing Bibasilar atelectasis with small left pleural effusion. Troponin less than 0.05, BNP was 5050, however last admission patient was in CHF with a BNP of 5000. She will be [place] [facility] [place] with [place]. Lung sounds clear bilaterally, no edema, slight JVD, considering oxygen requirement and elevated BNP gentle lasix drip started st 2.5. Daily weights, with telemetry. Mild leukocytosis by labs, however appears to be baseline for patient. BUN and creatinine elevated she does have CKD however this is above baseline for her, she did have a CT with contrast in the ED, she will need to be monitored closely by am labs. Mag was low replete and monitor. She denies n/v/d, chest pain, shortness of breath. Review of Systems Constitutional Reports system reviewed and no additional complaints, except as docu Respiratory Reports as per [facility] Medical History Atrial flutter with rapid ventricular response (Chronic) Pulmonary hypertension (Chronic) Acute diastolic CHF (congestive heart failure) (Chronic) CAD (coronary artery disease) (Chronic) HCAP (healthcare-associated pneumonia) (Resolved) Anemia (Chronic) Tarsal tunnel syndrome (Chronic 06/11/13) CKD (chronic kidney disease) stage 3, GFR 30-59 ml/min (Chronic) Shingles (Resolved) Hip pain, left (Chronic) Hip pain, right (Chronic) Lump in neck (Chronic) Diabetes mellitus (Chronic) Hyperlipidemia (Chronic 08/10/00) Gout (Chronic 07/06/11) Spinal stenosis of lumbar region (Chronic 02/15/16) Restless legs (Chronic) Paroxysmal atrial fibrillation (Chronic 03/01/16) 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) Chronic obstructive lung disease (Chronic) Atrial fibrillation (Chronic) Restless leg syndrome (Chronic) Essential hypertension (Chronic) Hyperlipidemia (Chronic) History of coronary artery disease (Chronic) Abnormal mammography (Resolved) Ankle pain (Resolved 03/13/14) Carpal tunnel syndrome (Resolved 08/10/06) Cervical disc disorder with myelopathy (Resolved 08/21/08) Chest pain (Resolved) Diabetes mellitus (Resolved) Folate deficiency (Resolved 02/15/16) Gram-positive bacteremia (Resolved) HAP (hospital-acquired pneumonia) (Resolved 01/15/19) Hepatomegaly (Resolved) Hip joint inflamed (Resolved 09/03/15) Low back pain (Resolved 04/10/03) Menopausal syndrome (Resolved) Muscle fatigue (Resolved) Posterior tibial tendon dysfunction (Resolved) Postmenopausal bleeding (Resolved) Postoperative wound dehiscence (Resolved 12/23/15) Primary osteoarthritis of left hip (Resolved 09/17/15) Renal impairment (Resolved 07/11/03) Rotator cuff syndrome (Resolved 08/01/09) Smoker (Resolved 06/30/16) Tarsal tunnel syndrome (Resolved) Trochanteric bursitis (Resolved) Upper respiratory tract infection (Resolved 08/03/15) Vitamin D deficiency (Resolved) Atrial flutter (Inactive) Atrial fibrillation Carpal tunnel syndrome Cervical spondylosis with myelopathy Gout Hypertension Spinal stenosis of lumbar region at multiple levels Vitamin D deficiency Surgical History S/P CABG (coronary artery bypass graft) (Chronic 01/03/19) H/O Spinal surgery (Resolved) H/O arthrodesis (Resolved) History of bilateral tubal ligation (Resolved) History of gynecologic surgery (Resolved) History of hip surgery (Resolved) History of orthopedic surgery (Resolved) S/P carpal tunnel release (Resolved) S/P cholecystectomy (Resolved) S/P rotator cuff repair (Resolved) Status post incision and drainage (Resolved) Arthrodesis Cholecystectomy (07/31/13) Endometrial Biopsy Left eye surgery Ligation of fallopian tube (~1980) Open Carpal Tunnel release Right wrist surgery Rotator Cuff Repair (~1980) SPINE SURGERY Total replacement of hip cervical repair (~10/2008) tarsal tunnel release (~1997) Family History Mother Diabetes Essential hypertension Personal history of malignant neoplasm Heart disease Hyperlipidemia Stroke Asthma Father Diabetes Essential hypertension Personal history of malignant neoplasm Heart disease Asthma Sister Diabetes Essential hypertension Depression Heart disease Asthma Grandfather No problems noted. Grandfather No problems noted. Grandmother Personal history of malignant neoplasm Grandmother Diabetes Aunt Personal history of malignant neoplasm Brother Hyperlipidemia Stroke Sister Asthma Son Asthma Daughter Depression Asthma Daughter Asthma Daughter Depression Neoplasm Asthma Brother No problems noted. Social History Smoking/Tobacco Use Status: Current every day Tobacco Type: cigarettes Alcohol Intake: current Alcohol Intake frequency: a few times a week Drug use: Never Substance use type: does not use Household members: other Details: 2 current occupation: [employer] Pets and animals: Yes Pets and animals: cat(s), dog(s) and horse(s) What type of physical activity do you participate in: none Saniya/Hindu: Advent Special saniya needs: No Do you feel safe at home: Yes Do you feel safe in your relationship?: Yes Meds Home Medications Medication Instructions Recorded Confirmed Type cyanocobalamin (vitamin B-12) 1,000 mcg PO DAILY #100 tab 02/16/17 03/03/19 Rx [Vitamin B-12] epinephrine [EpiPen 2-Erick] 0.3 mg IM ONCE #2 dose 12/11/17 03/03/19 Rx folic acid 1 mg tablet 1 mg PO DAILY #90 tab 05/21/18 03/03/19 Rx atorvastatin 40 mg tablet 40 mg PO DAILY #90 tab-cap 06/14/18 03/03/19 Rx duloxetine 60 mg capsule,delayed 60 mg PO DAILY #90 tab-cap 06/14/18 03/03/19 Rx release allopurinol 100 mg tablet 100 mg PO DAILY #90 tab-cap 08/09/18 03/03/19 Rx gabapentin 600 mg tablet 600 mg PO TID #270 tab-cap 08/09/18 03/03/19 Rx glipizide ER 10 mg tablet, 10 mg PO DAILY #90 tab-cap 08/09/18 03/03/19 Rx extended release 24 hr nystatin 100,000 unit/gram topical 1 applic TOPICAL BID PRN #30 gm 12/04/18 03/03/19 Rx cream meclizine 12.5 mg tablet 25 mg PO TID PRN #60 tab 12/17/18 03/03/19 Rx blood sugar diagnostic strips #100 each 12/18/18 02/21/19 Rx lancets 33 gauge #100 each 12/18/18 02/21/19 Rx pen needle, diabetic 31 gauge x #30 each 12/18/18 02/21/19 Rx 1/4 magnesium hydroxide [Milk of 30 ml PO PRN PRN 01/15/19 03/03/19 History Magnesia] polyethylene glycol 3350 [Miralax] 1 g PO PRN PRN 01/15/19 03/03/19 History ropinirole [Requip] 2 mg PO QPM PRN 01/15/19 03/03/19 History acetaminophen [Tylenol Extra 1,000 mg PO Q8H PRN PRN #0 tab 01/22/19 03/03/19 Rx Strength] aspirin [Aspir-81] 81 mg PO DAILY #30 tab 01/22/19 03/03/19 Rx calcium carbonate-vitamin D3 2 tab PO BID #60 tab 01/22/19 03/03/19 Rx [Calcium 600 + D(3)] lancets 25 gauge #100 each 01/29/19 02/21/19 Rx ergocalciferol (vitamin D2) 50,000 50,000 unit PO M-W-F #36 tab-cap 01/30/19 03/03/19 Rx unit capsule fluticasone propion-salmeterol 2 puff INHALATION BID 02/02/19 03/03/19 History [Advair Diskus] albuterol sulfate 2.5 mg INHALATION Q2H PRN PRN #0 ml 02/12/19 03/03/19 Rx budesonide-formoterol HFA 160 2 puff IH BID #10.2 gm 02/21/19 03/03/19 Rx mcg-4.5 mcg/actuation aerosol inhaler diltiazem CD 120 mg 240 mg PO DAILY #180 cap 02/21/19 03/03/19 Rx capsule,extended release 24 hr metoprolol succinate ER 50 mg 150 mg PO DAILY #270 tab 02/21/19 03/03/19 Rx tablet,extended release 24 hr liraglutide 0.6 mg/0.1 mL (18 mg/3 1.8 mg SC DAILY #27 ml 02/22/19 03/03/19 Rx mL) subcutaneous pen injector tramadol 50 mg tablet 50 mg PO BID PRN #20 tab 02/28/19 03/03/19 Rx furosemide 40 mg PO DAILY 03/03/19 03/03/19 History omeprazole 80 mg PO BID 03/03/19 03/03/19 History Allergies Allergy/AdvReac Type Severity Reaction Status Date / Time venom-honey bee Allergy Severe ANAPHYLAXIS Verified 02/21/19 13:10 adhesive Allergy BLISTERS Verified 02/21/19 13:10 Exam Const General: cooperative and no acute distress Orientation: alert, awake and oriented x3 Neck Lymphatic: no lymphadenopathy noted and no lymphedema noted Chest Chest: normal inspection of the chest Resp Effort & Inspection: normal respiratory effort and able to speak in complete sentences Auscultation: clear to auscultation bilaterally Other: oxygen requirement Cardio Jugular venous pressure: JVD elevated Rate: regular rate Rhythm: regular rhythm GI Inspection: normal to inspection Palpation: soft and no hepatosplenomegaly Skin General skin exam: no rashes or lesions noted Neuro General: alert, awake and oriented x3 Cognition: normal cognition Extrem General: normal to inspection and no clubbing, cyanosis or edema Right lower extremity: no edema Left lower extremity: no edema Results Labs : 03/04/19 06:21 03/04/19 06:21 Laboratory Results - last 24 hr 03/03/19 03/03/19 13:20 13:20 WBC 13.20 H RBC 3.92 L Hgb 10.7 L Hct 36.1 MCV 92.1 MCH 27.3 MCHC 29.6 L RDW 16.2 H Plt Count 456 H MPV 9.6 Immature Gran % 0.6 Neutrophils % 75.7 Lymphocytes % 13.9 Monocytes % 5.2 Eosinophils % 3.6 Basophils % 1.0 Absolute Neutrophils 9.99 H Absolute Lymphocytes 1.83 Absolute Monocytes 0.69 Absolute Eosinophils 0.48 Absolute Basophils 0.13 Sodium 140 Potassium 4.7 Chloride 100 Carbon Dioxide 32.9 H Anion Gap 7.1 BUN 26 H Creatinine 1.98 H Estimated GFR/1.73 m2 25.22 Glucose 192 H Calcium 9.5 Magnesium 1.5 L Total Bilirubin 0.4 AST 11 L ALT 23 Alkaline Phosphatase 97 Troponin I < 0.05 NT-Pro-B Natriuret Pep 5050 H Total Protein 7.3 Albumin 3.1 L Last Vital Signs Temp 36.9 C 03/03/19 13:01 Pulse 71 03/03/19 13:16 Resp 17 03/03/19 13:20 BP 100/68 03/03/19 13:16 Pulse Ox 94 L 03/03/19 13:20
[2019-03-03] MEDS: MAGNESIUM SULFATE 2 GM/50 ML BAG IVPB (18:17)
[2019-03-03] MEDS: traMADol 50 MG TAB PO (20:06)
[2019-03-03] MEDS: Gabapentin 600 MG TAB PO (20:06)
[2019-03-03] MEDS: rOPINIRole 0.5 MG TAB 2 MG PO (20:07)
[2019-03-03] MEDS: Insulin Aspart 300 UNITS/3 ML PEN SC (20:07)
[2019-03-03] MEDS: Calcium 600mg/Vit D 200U TAB 2 TAB PO (20:07)
--- NOTE | 2019-03-03 20:19 | NUR.NOTE ---
[facility] [place] to review pt's Omeprazole order copied from home med rec as 80mg BID, Checked with pt and pt reported taking one pill, blue and white capsule BID of omeprazole. Melony daughter contacted and reports pills are peach and blue 40mg capsules and script read take one BID. Reported this to [facility] and they are correcting the order. Nursing Note:
[2019-03-03 21:18] LABS: Troponin I < 0.05 ng/mL (0.00-0.06)
[2019-03-03] MEDS: Budesonide/Formoterol 160/4.5 6 GM 60 PUFF INH IH (21:31)
[2019-03-03] MEDS: Omeprazole 20 MG CAPCR 40 MG PO (21:33)
[2019-03-03] MEDS: Atorvastatin 40 MG TAB PO (21:33)
[2019-03-03] MEDS: Heparin 5,000 UNITS/ML VIAL 5000 UNITS SC (21:33)
[2019-03-03] MEDS: Normal Saline 500 ML IV (21:58)
[2019-03-04] VITALS (34 sets, daily range): BP systolic 99–118; BP diastolic 43–62; PULSE 58–72; RESP 15–35; TEMP 36.4–36.9; O2SAT 91–95
[2019-03-04] MEDS: Heparin 5,000 UNITS/ML VIAL 5000 UNITS SC ×3 (06:39→21:20)
[2019-03-04 06:53] LABS: Abs Immature Grans 0.05 k/cumm (0.0-0.09); Absolute Basophil Count 0.08 k/cumm (0.0-0.2); Absolute Eosinophil Count 0.94 k/cumm (0.0-0.7); Absolute Lymphocyte Count 2.06 k/cumm (1.2-3.4); Absolute Monocyte Count 0.76 k/cumm (0.11-0.7); Absolute Neutrophil Count 6.47 k/cumm (1.2-6.7); Basophils % 0.8; Eosinophils % 9.1; HCT 32.5 % (36.0-46.0); HGB 9.4 g/dL (12.0-15.5); Immature Grans % 0.5; Lymphocytes % 19.9; Mean Corp. HGB Concentration 28.9 g/dL (32.0-36.0); Mean Corpuscular Hemoglobin 26.4 pg (27.0-33.0); Mean Corpuscular Volume 91.3 fL (80-95); Mean Platelet Volume 9.9 fL (8.0-11.0); Monocytes % 7.3; Neutrophils % 62.4; Platelet Count 399 x1000/uL (130-400); RBC 3.56 m/cumm (4.00-5.20); RBC Distribution Width 16.5 % (11.7-14.6); White Blood Cell Count 10.36 k/cumm (4.4-10.8)
[2019-03-04 07:35] LABS: Troponin I < 0.05 ng/mL (0.00-0.06)
[2019-03-04] MEDS: dilTIAZem CD 120 MG CAPCR 240 MG PO (07:51)
[2019-03-04] MEDS: Cyanocobalamin 500 MCG TAB 1000 MCG PO (07:52)
[2019-03-04] MEDS: Calcium 600mg/Vit D 200U TAB 2 TAB PO ×2 (07:52→19:57)
[2019-03-04] MEDS: Omeprazole 20 MG CAPCR 40 MG PO ×2 (07:52→19:59)
[2019-03-04] MEDS: DULoxetine 30 MG CAP 60 MG PO (07:52)
[2019-03-04] MEDS: Allopurinol 100 MG TAB PO (07:53)
[2019-03-04] MEDS: Gabapentin 600 MG TAB PO ×3 (07:53→19:58)
[2019-03-04] MEDS: Folic Acid 1 MG TAB PO (07:53)
[2019-03-04] MEDS: Metoprolol CR 50 MG TABCR 150 MG PO (07:53)
[2019-03-04] MEDS: Aspirin E.C. 81 MG TABEC PO (07:53)
[2019-03-04] MEDS: Budesonide/Formoterol 160/4.5 6 GM 60 PUFF INH IH ×2 (07:56→19:57)
[2019-03-04] MEDS: Insulin Aspart 300 UNITS/3 ML PEN SC ×3 (07:58→17:11)
--- NOTE | 2019-03-04 08:09 | PDOC.CMIN ---
- If Service Date Differs Date of service: 03/04/19 Time of Service: 08:09 Care Management Initial Assess REASON FOR HOSPITALIZATION:: Hypoxia PAST MEDICAL HISTORY/PAST SURGICAL HISTORY:: Abnormal mammography, ankle pain, A-fib, carpal tunnel syndrome, cervial disc disorder with myelopathy, cervical spondylosis with myelopathy, chest pain, COPD, chronic renal impairment associated with type 2 DM, Essential hypertension, folate deficiency, gout, hepatomegaly, hip joint inflamed, CAD, hyperlipidemia, hypertension, low back pain, menopausal syndrome, muscle fatigue, paroxysmal A-fib, posterior tibial tendon dysfunction, post menopausaul bleeding, postoperative wound dehiscence, primary osteoarthritis of left hip, renal impairment, restless leg syndrome, smoker, spinal stenosis of lumbar region, spinal stenosis of lumbar region at multiple levels, tarsal tunnel syndrome, trochanteric bursitis, upper respiratory tract infection, vitamin D deficiency, athrodesis, cervical repair, cholecystectomy, endometrial biopsy, spinal surgery, bilat tubal ligation, gynecologic surgery, hip surgery, orthopedic surgery, left eye surgery, ligation of fallopian tube, open carpal tunnel release, right wrist surgery, rotator cuff repair, CABG, incision and drainage, L total hip replacement. PREVIOUS FUNCTIONAL STATUS/SOCIAL/FAMILY SUPPORTS:: Ann-Marie is well known to this she has had several admissions over the past 3 months and a recent CABG at [facility] [place]. When she was inpatient at [facility] she was treated for Hospital acquired pneumonia and fluid overload. She was then discharged to her daughters home with home health services. 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 She has recently applied for disability. She cared for her spouse at home who had Alzheimer's. Her spouse recently . CURRENT FUNCTIONAL STATUS:: Ann-Marie is sitting up in the bed watching television. She is alert and engaged with CM during visit. She recently had an apointment with her primary care provider and was starting to improve. She then started having some shortness of breath, generalized weakness, dizziness and shortness of breath over the past few days. She has been receiving home health supports including nursing whom noticed her oxygen saturation to be in the 70's. ADVANCE DIRECTIVES:: Colst and advance of file agent is Bree Lam Has patient been provided with information about the portal?: Yes Did the patient sign up for the portal?: No CODE STATUS:: Full Code INSURANCE COVERAGE / FINANCIAL ISSUES:: BCBS CURRENT HOME/COMMUNITY SERVICES/EQUIPMENT:: She is receiving home health with PT OT. Her daughter is living with her and helping with activities of daily life. She is starting cardiac rehab. PRIMARY CARE PHYSICIAN:: POTENTIAL DISCHARGE NEEDS:: Follow up with cardiology, pcp and resume home health services including PT, OT, Nursing and [employer] PATIENT/FAMILY EDUCATION NEEDS:: Discharge education, limitations, new medications and medication changes. Ask me three and self management. ANTICIPATED BARRIERS TO DISCHARGE:: None TRANSPORTATION:: Via private car with family at time of discharge. PLAN:: Ann-Marie is receiving IV Lasix and being monitored in the ICU. She will be discharged home when medically ready anticipate adjustments to her diuretics r/t CHF. CM to continue to provide support to patient ongoing discharge planning and disposition.
--- NOTE | 2019-03-04 08:19 | INITIAL_ITS ---
- If Service Date Differs Date of service: 03/04/19 Time of Service: 08:09 Care Management Initial Assess REASON FOR HOSPITALIZATION:: Hypoxia PAST MEDICAL HISTORY/PAST SURGICAL HISTORY:: Abnormal mammography, ankle pain, A-fib, carpal tunnel syndrome, cervial disc disorder with myelopathy, cervical spondylosis with myelopathy, chest pain, COPD, chronic renal impairment associated with type 2 DM, Essential hypertension, folate deficiency, gout, hepatomegaly, hip joint inflamed, CAD, hyperlipidemia, hypertension, low back pain, menopausal syndrome, muscle fatigue, paroxysmal A-fib, posterior tibial tendon dysfunction, post menopausaul bleeding, postoperative wound dehiscence, primary osteoarthritis of left hip, renal impairment, restless leg syndrome, smoker, spinal stenosis of lumbar region, spinal stenosis of lumbar region at multiple levels, tarsal tunnel syndrome, trochanteric bursitis, upper respiratory tract infection, vitamin D deficiency, athrodesis, cervical repair, cholecystectomy, endometrial biopsy, spinal surgery, bilat tubal ligation, gynecologic surgery, hip surgery, orthopedic surgery, left eye surgery, ligation of fallopian tube, open carpal tunnel release, right wrist surgery, rotator cuff repair, CABG, incision and drainage, L total hip replacement. PREVIOUS FUNCTIONAL STATUS/SOCIAL/FAMILY SUPPORTS:: Ann-Marie is well known to this she has had several admissions over the past 3 months and a recent CABG at [facility] [place]. When she was inpatient at [facility] she was treated for Hospital acquired pneumonia and fluid overload. She was then discharged to her daughters home with home health services. 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 She has recently applied for disability. She cared for her spouse at home who had Alzheimer's. Her spouse recently . CURRENT FUNCTIONAL STATUS:: Ann-Marie is sitting up in the bed watching television. She is alert and engaged with CM during visit. She recently had an apointment with her primary care provider and was starting to improve. She then started having some shortness of breath, generalized weakness, dizziness and shortness of breath over the past few days. She has been receiving home health supports including nursing whom noticed her oxygen saturation to be in the 70's. ADVANCE DIRECTIVES:: Colst and advance of file agent is Bree Lam Has patient been provided with information about the portal?: Yes Did the patient sign up for the portal?: No CODE STATUS:: Full Code INSURANCE COVERAGE / FINANCIAL ISSUES:: BCBS CURRENT HOME/COMMUNITY SERVICES/EQUIPMENT:: She is receiving home health with PT OT. Her daughter is living with her and helping with activities of daily life. She is starting cardiac rehab. PRIMARY CARE PHYSICIAN:: POTENTIAL DISCHARGE NEEDS:: Follow up with cardiology, pcp and resume home health services including PT, OT, Nursing and [employer] PATIENT/FAMILY EDUCATION NEEDS:: Discharge education, limitations, new medications and medication changes. Ask me three and self management. ANTICIPATED BARRIERS TO DISCHARGE:: None TRANSPORTATION:: Via private car with family at time of discharge. PLAN:: Ann-Marie is receiving IV Lasix and being monitored in the ICU. She will be discharged home when medically ready anticipate adjustments to her diuretics r/t CHF. CM to continue to provide support to patient ongoing discharge planning and disposition.
[2019-03-04] MEDS: Ergocalciferol 50000 UNITS CAP PO (08:51)
[2019-03-04 10:34] LABS: Anion Gap 11.1 mmol/L (3-11); BUN 25 mg/dL (7-18); CO2 28.9 mmol/L (21.0-32.0); CREATININE 1.63 mg/dL (0.55-1.02); Chloride 101 mmol/L (98-107); Estimated GFR 31.57 (mL/min/1.73m2); Glucose 152 mg/dL (70-100); Potassium 3.9 mmol/L (3.5-5.1); Sodium 141 mmol/L (136-145)
--- NOTE | 2019-03-04 13:13 | PGE_ITS ---
Date of Service Date of service: 03/04/19 Time of Service: 13:04 Assessment and Plan (1) Hypoxia: Current visit: Yes Status: Acute Unclear etiology, but with rather abrupt onset. - PE ruled out with CT. - Consider acute CHF exacerbation - patient has an elevated BNP similiar in value to last hospitalization when she was treated for CHF exacerbation. Has diuresed well with lasix gtt and reports feeling better. Continue diuresis. - Patient also with a history of COPD, and currently with decreased breath sounds but no wheezing. Also did well with addition of steroids last hospita lization - hold off on steroid therapy, but with low threshold for initiation. - Consider aspiration pneumonia in setting of illness at home with nausea and vomiting. However, patient's mild leukocytosis has resolved and she remains afebrile off antibiotic therapy - she has also undergone 2 recent courses of broad spectrum antibiotic therapy for Pneumonia. Monitor symptoms closely, but continue to hold off antibiotic therapy at this time. (2) Acute diastolic CHF (congestive heart failure): Current visit: No Status: Chronic Evidence of Diastolic Dysfunction by ECHO 01/2018, with intact LVEF. Currently with elevated BNP that is unchanged from last hospitalization, when patient was also treated for an acute exacerbation of her underlying diastolic CHF. Currently diuresing well - continue low dose lasix gtt and monitor daily weight and I/O's carefully. Flynn Catheter in place for accurate measurement of UOP. (3) CKD (chronic kidney disease) stage 3, GFR 30-59 ml/min: Current visit: No Status: Chronic Mild ZACHARY superimposed on CKD, appears resolved this morning. Monitor renal function and electrolytes carefully, especially in setting of active diuresis. Renally dose medications when needed, and avoid nephrotoxins. (4) CAD (coronary artery disease): Current visit: No Status: Chronic S/p CABG in December - serial cardiac biomarkers negative. Continue BB, ASA, high potency statin. Currently asymptomatic. (5) Diabetes mellitus: Current visit: No Status: Chronic Continue sliding scale coverage. Qualifiers: Diabetes mellitus type: type 2 Diabetes mellitus manager intermediate insulin use: without longterm use Diabetes mellitus complication status: with kidney complications Diabetes mellitus complication detail: with chronic kidney disease (6) Hyperlipidemia: Current visit: No Status: Chronic On high potency statin. (7) DVT prophylaxis: Current visit: Yes Status: Acute SC Heparin. Also on PPI therapy for GI prophylaxis. (8) Advance directive on file: Current visit: Yes Status: Acute Full Code. Subjective Interval history since last seen: 68 year old woman with a history of recent hospitalizations and treatment for Pneumonia, admitted 03/[address] [facility] Emergency Department with a diagnosis of Hypoxia. Mrs. Griggs has a Past Medical History significant for CKD, Obesity, DM, COPD, depression, gout, RLS, and spinal stenosis. She also had known CAD, s/p 3 vessel CABG at [facility] in December of 2018 following an NSTEMI. She also has a prior history of PAF, for which she underwent excision of her Left Atrial Appendage at the time of her CABG, and now remains off anticoagulation. Following her surgery the patient was discharged to [facility] and [facility], prior to being admitted at [facility] with a diagnosis of Healthcare Aquired Pneumonia between 01/15 and 01/22/2019, then readmitted in late January with recurrent pneumonia, Atrial Flutter, and CHF. She was discharged in stable condition. The patient reports symptoms of generalized malaise, with onset of nausea, fatigue, and weakness a few days prior to her admission. On the day of admission she was noted to be hypoxic by home health, with a pulse ox in the 70's, and was sent to the ED for further evaluation. Work-up in the ED was significant for a mild leukocytosis, mildly worsening renal function, and an elevated BNP unchanged from her prior hospitalization (During which time she was treated for an acute CHF exacerbation). Despite her worsening renal function a CT of the chest with contrast was obtained and showed bibasilar atelctasis vs. a right basilar infiltrate, with a smal to moderate left sided pleural effusion, with no evidence for a Pulmonary Embolism. The patient was referred for admission for further evaluation and treatment. This morning Mrs. Griggs reports improvement in her symptoms after diuresis, but continues to require oxygen. She also states that she is no longer nauseous and feels better overall. Her mild leukocytosis has resolved and she remains afebrile despite a lack of antibiotic administration. No overnight events reported. Exam Narrative Exam Narrative: General: Patient appears comfortable, AAOX3, NAD Neck: Supple CV: Regular, nontachycardic, S1S2, No rubs, murmurs, or gallops. Pulmonary: Bibasilar crackles, diminished breath sounds overall. Abdomen: + Bowel Sounds, soft, nontender, nondistended Vascular: No lower extremity edema Psych: Normal mood and affect. Objective Objective Clinical Data: Abnormal lab results 03/03/19 03/03/19 03/04/19 Range/Units 13:20 13:20 06:21 WBC 13.20 H (4.4-10.8) k/cumm RBC 3.92 L (4.00-5.20) m/cumm Hgb 10.7 L (12.0-15.5) g/dL Hct (36.0-46.0) % MCH (27.0-33.0) pg MCHC 29.6 L (32.0-36.0) g/dL RDW 16.2 H (11.7-14.6) % Plt Count 456 H (130-400) x1000/uL Absolute Neutrophils 9.99 H (1.2-6.7) k/cumm Absolute Monocytes (0.11-0.7) k/cumm Absolute Eosinophils (0.0-0.7) k/cumm Carbon Dioxide 32.9 H (21.0-32.0) mmol/L Anion Gap 11.1 H (3-11) mmol/L BUN 26 H 25 H (7-18) mg/dL Creatinine 1.98 H 1.63 H (0.55-1.02) mg/dL Glucose 192 H 152 H (70-100) mg/dL Magnesium 1.5 L (1.8-2.4) mg/dL AST 11 L (15-37) U/L NT-Pro-B Natriuret Pep 5050 H ( - 299) pg/mL Albumin 3.1 L (3.4-5.0) g/dL 03/04/19 Range/Units 06:21 WBC (4.4-10.8) k/cumm RBC 3.56 L (4.00-5.20) m/cumm Hgb 9.4 L (12.0-15.5) g/dL Hct 32.5 L (36.0-46.0) % MCH 26.4 L (27.0-33.0) pg MCHC 28.9 L (32.0-36.0) g/dL RDW 16.5 H (11.7-14.6) % Plt Count (130-400) x1000/uL Absolute Neutrophils (1.2-6.7) k/cumm Absolute Monocytes 0.76 H (0.11-0.7) k/cumm Absolute Eosinophils 0.94 H (0.0-0.7) k/cumm Carbon Dioxide (21.0-32.0) mmol/L Anion Gap (3-11) mmol/L BUN (7-18) mg/dL Creatinine (0.55-1.02) mg/dL Glucose (70-100) mg/dL Magnesium (1.8-2.4) mg/dL AST (15-37) U/L NT-Pro-B Natriuret Pep ( - 299) pg/mL Albumin (3.4-5.0) g/dL Vital Signs Temperature 36.4 C L 03/04/19 12:15 Temperature Source Temporal Artery Scan 03/04/19 12:15 Pulse 60 03/04/19 12:15 Pulse Rhythm Regular 03/04/19 07:45 Pulse 61 03/04/19 12:09 Respiratory Rate 16 03/04/19 12:15 Respiratory Effort 03/04/19 07:45 Respiratory Depth Normal 03/04/19 07:45 Respiratory Pattern Normal 03/04/19 07:45 Blood Pressure 104/56 L 03/04/19 12:15 Blood Pressure Mean 67 03/04/19 12:09 Blood Pressure Position Supine 03/03/19 18:36 Pulse Oximetry 92 L 03/04/19 12:15 Oxygen Delivery Method Nasal Cannula 03/04/19 12:15 Oxygen Flow Rate 3 03/04/19 12:15 Pain Level 0 03/04/19 12:15 Intake & Output 03/03/19 03/04/19 03/04/19 23:59 11:59 23:59 Intake Total 650 / 652.033 352.033 / 397.866 45.833 / 397.866 Output Total 790 / 790 1300 / 1875 575 / 1875 Balance -140 / -137.967 -947.967 / -1477.134 -529.167 / -1477.134 Weight 122.7 kg 121.1 kg Intake: IV 650 / 652.033 2.033 / 47.866 45.833 / 47.866 Oral 350 / 350 Output: Urine 790 / 790 1300 / 1875 575 / 1875 Other: Urine Color Light [place] Pale Yellow Yellow Straw Urine Appearance Clear Clear Clear Laboratory Results WBC 10.36 k/cumm (4.4-10.8) 03/04/19 06:21 RBC 3.56 m/cumm (4.00-5.20) L 03/04/19 06:21 Hgb 9.4 g/dL (12.0-15.5) L 03/04/19 06:21 Hct 32.5 % (36.0-46.0) L 03/04/19 06:21 MCV 91.3 fL (80-95) 03/04/19 06:21 MCH 26.4 pg (27.0-33.0) L 03/04/19 06:21 MCHC 28.9 g/dL (32.0-36.0) L 03/04/19 06:21 RDW 16.5 % (11.7-14.6) H 03/04/19 06:21 Plt Count 399 x1000/uL (130-400) 03/04/19 06:21 MPV 9.9 fL (8.0-11.0) 03/04/19 06:21 Immature Gran % 0.5 03/04/19 06:21 Neutrophils % 62.4 03/04/19 06:21 Lymphocytes % 19.9 03/04/19 06:21 Monocytes % 7.3 03/04/19 06:21 Eosinophils % 9.1 03/04/19 06:21 Basophils % 0.8 03/04/19 06:21 Absolute Neutrophils 6.47 k/cumm (1.2-6.7) 03/04/19 06:21 Absolute Lymphocytes 2.06 k/cumm (1.2-3.4) 03/04/19 06:21 Absolute Monocytes 0.76 k/cumm (0.11-0.7) H 03/04/19 06:21 Absolute Eosinophils 0.94 k/cumm (0.0-0.7) H 03/04/19 06:21 Absolute Basophils 0.08 k/cumm (0.0-0.2) 03/04/19 06:21 Sodium 141 mmol/L (136-145) 03/04/19 06:21 Potassium 3.9 mmol/L (3.5-5.1) 03/04/19 06:21 Chloride 101 mmol/L (98-107) 03/04/19 06:21 Carbon Dioxide 28.9 mmol/L (21.0-32.0) 03/04/19 06:21 Anion Gap 11.1 mmol/L (3-11) H 03/04/19 06:21 BUN 25 mg/dL (7-18) H 03/04/19 06:21 Creatinine 1.63 mg/dL (0.55-1.02) H 03/04/19 06:21 Estimated GFR/1.73 m2 31.57 (mL/min/1.73m2) 03/04/19 06:21 Glucose 152 mg/dL (70-100) H 03/04/19 06:21 Calcium 9.0 mg/dL (8.5-10.1) 03/04/19 06:21 Magnesium 2.0 mg/dL (1.8-2.4) 03/04/19 06:21 Total Bilirubin 0.4 mg/dL (0.2-1.0) 03/03/19 13:20 AST 11 U/L (15-37) L 03/03/19 13:20 ALT 23 U/L (12-78) 03/03/19 13:20 Alkaline Phosphatase 97 U/L (46-116) 03/03/19 13:20 Troponin I < 0.05 ng/mL (0.00-0.06) 03/04/19 06:21 NT-Pro-B Natriuret Pep 5050 pg/mL (-299) H 03/03/19 13:20 Total Protein 7.3 g/dL (6.4-8.2) 03/03/19 13:20 Albumin 3.1 g/dL (3.4-5.0) L 03/03/19 13:20
--- NOTE | 2019-03-04 16:41 | W.INDIABCONS ---
Date of service: 03/04/19 Time of Service: 16:41 Diabetes Inpatient Consult DESCRIPTION/ASSESSMENT: Appreciate diabetes consult for Ann-Marie who is hospitalized with complications of CHF. She is well known for outpatient diabetes self management as well as her recent inpatient stays. BMI 39 A1c 7.7 6 months ago GFR 31 Blood sugars this visit 142-199 taking sensitive insulin correction. She is eating 80-100% of her meals but there is no carbohydrate intake recorded. Blood sugars reasonably well controlled based on previous glycemic control taking minimal medication. She is not on steroids which have been a challenge for blood sugars during recent inpatient stays. INTERVENTION: No intervention at this time unless tighter blood sugars are desired with an increased risk of hyperglycemia. PLAN: Will watch blood sugars and carbohydrate intake to assess impact and need for further medication or nutrition intervention Time Spent in Nutritional Counseling and Treatment: 0 minutes face to face
[2019-03-04] MEDS: Nystatin POWDER 60 GM JAR TP (19:59)
[2019-03-04] MEDS: Atorvastatin 40 MG TAB PO (21:20)
[2019-03-04] MEDS: rOPINIRole 0.5 MG TAB 2 MG PO (21:20)
[2019-03-05] VITALS (31 sets, daily range): BP systolic 108–124; BP diastolic 50–61; PULSE 62–100; RESP 14–26; TEMP 36.3–36.7; O2SAT 87–97
[2019-03-05] MEDS: Heparin 5,000 UNITS/ML VIAL 5000 UNITS SC ×3 (06:16→21:44)
[2019-03-05 07:22] LABS: Abs Immature Grans 0.06 k/cumm (0.0-0.09); Absolute Basophil Count 0.07 k/cumm (0.0-0.2); Absolute Eosinophil Count 0.97 k/cumm (0.0-0.7); Absolute Lymphocyte Count 2.15 k/cumm (1.2-3.4); Basophils % 0.6; Eosinophils % 8.9; HCT 32.3 % (36.0-46.0); HGB 9.3 g/dL (12.0-15.5); Immature Grans % 0.6; Lymphocytes % 19.8; Mean Corp. HGB Concentration 28.8 g/dL (32.0-36.0); Mean Corpuscular Volume 90.2 fL (80-95); Monocytes % 11.1; Platelet Count 404 x1000/uL (130-400); RBC 3.58 m/cumm (4.00-5.20); RBC Distribution Width 16.6 % (11.7-14.6); White Blood Cell Count 10.85 k/cumm (4.4-10.8)
[2019-03-05 08:06] LABS: BUN 30 mg/dL (7-18); CREATININE 1.58 mg/dL (0.55-1.02); Calcium 8.9 mg/dL (8.5-10.1); Chloride 100 mmol/L (98-107); Estimated GFR 32.72 (mL/min/1.73m2); Glucose 156 mg/dL (70-100); Magnesium 1.7 mg/dL (1.8-2.4); NT-proBNP 1583 pg/mL; Potassium 3.9 mmol/L (3.5-5.1); Sodium 142 mmol/L (136-145)
[2019-03-05] MEDS: Folic Acid 1 MG TAB PO (09:15)
[2019-03-05] MEDS: DULoxetine 30 MG CAP 60 MG PO (09:15)
[2019-03-05] MEDS: dilTIAZem CD 120 MG CAPCR 240 MG PO (09:16)
[2019-03-05] MEDS: Allopurinol 100 MG TAB PO (09:16)
[2019-03-05] MEDS: Omeprazole 20 MG CAPCR 40 MG PO ×2 (09:17→20:24)
[2019-03-05] MEDS: Cyanocobalamin 500 MCG TAB 1000 MCG PO (09:17)
[2019-03-05] MEDS: Metoprolol CR 50 MG TABCR 150 MG PO (09:19)
[2019-03-05] MEDS: Gabapentin 600 MG TAB PO ×3 (09:23→20:24)
[2019-03-05] MEDS: Aspirin E.C. 81 MG TABEC PO (09:23)
[2019-03-05] MEDS: Insulin Aspart 300 UNITS/3 ML PEN SC ×3 (09:26→17:36)
[2019-03-05] MEDS: Calcium 600mg/Vit D 200U TAB 2 TAB PO ×2 (09:30→20:23)
[2019-03-05] MEDS: Potassium Chloride 10 MEQ TABCR PO (09:30)
[2019-03-05] MEDS: MAGNESIUM SULFATE 1 GM/100 ML BAG IVPB (09:32)
[2019-03-05] MEDS: Budesonide/Formoterol 160/4.5 6 GM 60 PUFF INH IH ×2 (10:00→20:23)
[2019-03-05 11:34] LABS: Bilirubin Negative (Negative); Blood Trace-intact (Negative); Clarity Sl Cloudy (Clear); Glucose Negative (Negative); Ketones Negative (Negative); Leukocyte Esterase Moderate (Negative); Nitrite Positive (Negative); Urobilinogen 0.2 EU/dL (Up TO 0.2); pH 5.5 (5-8)
[2019-03-05] MEDS: Normal Saline Flush 10 ML SYR IVP (11:40)
[2019-03-05] MEDS: Nystatin POWDER 60 GM JAR TP ×2 (11:41→20:31)
[2019-03-05 11:53] LABS: Bacteria Many HPF (Negative); Casts Negative LPF (Negative); Crystals Negative HPF (Negative); Epithelial Cells Few HPF (Negative); Mucus Negative (Negative); WBC >50 HPF (0-5)
[2019-03-05 11:54] LABS: C & S Indicated? Yes
--- NOTE | 2019-03-05 12:37 | PGE_ITS ---
Date of Service Date of service: 03/05/19 Time of Service: 12:36 Assessment and Plan (1) Hypoxia: Current visit: Yes Status: Acute Unclear etiology, but with rather abrupt onset. - PE ruled out with CT. - Consider acute CHF exacerbation - patient had an elevated BNP similiar in value to last hospitalization when she was treated for CHF exacerbation. Has diuresed well with lasix gtt and reports feeling better, with a significant drop in BNP from 5000's to 1500 this morning. Continue diuresis. - Patient also with a history of COPD, and currently with decreased breath sounds but no wheezing. Also did well with addition of steroids last hospitalization - initiate oral prednisone. - Consider aspiration pneumonia in setting of illness at home with nausea and vomiting. However, patient's mild leukocytosis has essentially resolved and she remains afebrile off antibiotic therapy - she has also undergone 2 recent courses of broad spectrum antibiotic therapy for Pneumonia. Monitor symptoms closely, but continue to hold off antibiotic therapy for pulmonary infection at this time (being initiated on Abx for UTI). (2) Acute diastolic CHF (congestive heart failure): Current visit: No Status: Chronic Evidence of Diastolic Dysfunction by ECHO 01/2018, with intact LVEF. Currently with elevated BNP that is unchanged from last hospitalization, when patient was also treated for an acute exacerbation of her underlying diastolic CHF. Currently diuresing well, feels improved subjectively, and with drop in BNP 5050 -->1583 - continue low dose lasix gtt and monitor daily weight and I/O's carefully. Flynn Catheter in place for accurate measurement of UOP. (3) UTI (urinary tract infection): Current visit: Yes Status: Acute Initiate Ceftriaxone and await Urine Culture. Change Flynn Catheter as well. (4) Constipation: Current visit: Yes Status: Acute Change Colace from prn to standing, initiate Senna, and continue Miralax as needed. (5) CKD (chronic kidney disease) stage 3, GFR 30-59 ml/min: Current visit: No Status: Chronic Mild ZACHARY superimposed on CKD, appears resolved. Monitor renal function and electrolytes carefully, especially in setting of active diuresis. Renally dose medications when needed, and avoid nephrotoxins. (6) CAD (coronary artery disease): Current visit: No Status: Chronic S/p CABG in December - serial cardiac biomarkers negative. Continue BB, ASA, high potency statin. Currently asymptomatic. (7) Diabetes mellitus: Current visit: No Status: Chronic Continue sliding scale coverage. Qualifiers: Diabetes mellitus type: type 2 Diabetes mellitus residential insulin use: without residential use Diabetes mellitus complication status: with kidney complications Diabetes mellitus complication detail: with chronic kidney disease (8) Hyperlipidemia: Current visit: No Status: Chronic On high potency statin. (9) DVT prophylaxis: Current visit: Yes Status: Acute SC Heparin. Also on PPI therapy for GI prophylaxis. (10) Advance directive on file: Current visit: Yes Status: Acute Full Code. Subjective Interval history since last seen: 68 year old woman with a history of recent hospitalizations and treatment for Pneumonia, admitted 03/03 from [facility] Emergency Department with a diagnosis of Hypoxia. Mrs. Griggs has a Past Medical History significant for CKD, Obesity, DM, COPD, depression, gout, RLS, and spinal stenosis. She also had known CAD, s/p 3 vessel CABG at [facility] in December of 2018 following an NSTEMI. She also has a prior history of PAF, for which she underwent excision of her Left Atrial Appendage at the time of her CABG, and now remains off anticoagulation. Following her surgery the patient was discharged to [facility], prior to being admitted at [facility] with a diagnosis of Healthcare Aquired Pneumonia between 01/15 and 01/22/2019, then readmitted in late January with recurrent pneumonia, Atrial Flutter, and CHF. She was discharged in stable condition. The patient reports symptoms of generalized malaise, with onset of nausea, fatigue, and weakness a few days prior to her admission. On the day of admission she was noted to be hypoxic by home health, with a pulse ox in the 70's, and was sent to the ED for further evaluation. Work-up in the ED was significant for a mild leukocytosis, mildly worsening renal function, and an elevated BNP unchanged from her prior hospitalization (During which time she was treated for an acute CHF exac erbation). Despite her worsening renal function a CT of the chest with contrast was obtained and showed bibasilar atelctasis vs. a right basilar infiltrate, with a smal to moderate left sided pleural effusion, with no evidence for a Pulmonary Embolism. The patient was referred for admission for further evaluation and treatment. This morning Mrs. Griggs reports continued improvement in her symptoms after diuresis, but continues to require oxygen. She also states that she is no longer nauseous and feels better overall. She also reports constipation. Nursing states that her urine appears abnormal on bedside Urine dip. She also remains afebrile despite a lack of antibiotic administration. No overnight events reported. Exam Narrative Exam Narrative: General: Patient appears comfortable, AAOX3, NAD Neck: Supple CV: Regular, nontachycardic, S1S2, No rubs, murmurs, or gallops. Pulmonary: Bibasilar crackles vastly improved, diminished breath sounds left base. Abdomen: + Bowel Sounds, soft, nontender, nondistended Vascular: Minimal b/l lower extremity edema Psych: Normal mood and affect. Objective Objective Clinical Data: Abnormal lab results 03/05/19 03/05/19 03/05/19 Range/Units 06:22 06:22 09:55 WBC 10.85 H (4.4-10.8) k/cumm RBC 3.58 L (4.00-5.20) m/cumm Hgb 9.3 L (12.0-15.5) g/dL Hct 32.3 L (36.0-46.0) % MCH 26.0 L (27.0-33.0) pg MCHC 28.8 L (32.0-36.0) g/dL RDW 16.6 H (11.7-14.6) % Plt Count 404 H (130-400) x1000/uL Absolute Monocytes 1.20 H (0.11-0.7) k/cumm Absolute Eosinophils 0.97 H (0.0-0.7) k/cumm Carbon Dioxide 34.0 H (21.0-32.0) mmol/L BUN 30 H (7-18) mg/dL Creatinine 1.58 H (0.55-1.02) mg/dL Glucose 156 H (70-100) mg/dL Magnesium 1.7 L (1.8-2.4) mg/dL NT-Pro-B Natriuret Pep 1583 H ( - 299) pg/mL Urine Blood Trace-intact H (Negative) Urine Nitrite Positive H (Negative) Ur Leukocyte Esterase Moderate H (Negative) Urine RBC 5-10 H (0-2) Vital Signs Temperature 36.7 C 03/04/19 20:30 Temperature Source Tympanic 03/04/19 20:30 Pulse 88 03/05/19 10:02 Pulse Rhythm Regular 03/05/19 08:32 Pulse 85 03/05/19 10:02 Respiratory Rate 17 03/05/19 10:02 Respiratory Effort 03/05/19 08:32 Respiratory Depth Normal 03/05/19 08:32 Respiratory Pattern Normal 03/05/19 08:32 Blood Pressure 112/60 03/05/19 10:02 Blood Pressure Mean 73 03/05/19 10:02 Blood Pressure Position Supine 03/03/19 18:36 Pulse Oximetry 91 L 03/05/19 10:10 Oxygen Delivery Method Nasal Cannula 03/05/19 10:10 Oxygen Flow Rate 1 03/05/19 10:10 Pain Level 0 03/05/19 09:58 Comment 03/05/19 09:58 Intake & Output 03/04/19 03/05/19 03/05/19 23:59 11:59 23:59 Intake Total 810.166 / 1162.199 230 / 230 Output Total 1515 / 2815 1450 / 1450 Balance -704.834 / -1652.801 -1220 / -1220 Weight 121.3 kg Intake: IV 57.166 / 59.199 110 / 110 Oral 753 / 1103 120 / 120 Output: Urine 1515 / 2815 1450 / 1450 Other: Urine Color Yellow Yellow Urine Appearance Clear Clear Stool Size Large Stool Characteristics Soft Formed Laboratory Results WBC 10.85 k/cumm (4.4-10.8) H 03/05/19 06:22 RBC 3.58 m/cumm (4.00-5.20) L 03/05/19 06:22 Hgb 9.3 g/dL (12.0-15.5) L 03/05/19 06:22 Hct 32.3 % (36.0-46.0) L 03/05/19 06:22 MCV 90.2 fL (80-95) 03/05/19 06:22 MCH 26.0 pg (27.0-33.0) L 03/05/19 06:22 MCHC 28.8 g/dL (32.0-36.0) L 03/05/19 06:22 RDW 16.6 % (11.7-14.6) H 03/05/19 06:22 Plt Count 404 x1000/uL (130-400) H 03/05/19 06:22 MPV 10.0 fL (8.0-11.0) 03/05/19 06:22 Immature Gran % 0.6 03/05/19 06:22 Neutrophils % 59.0 03/05/19 06:22 Lymphocytes % 19.8 03/05/19 06:22 Monocytes % 11.1 03/05/19 06:22 Eosinophils % 8.9 03/05/19 06:22 Basophils % 0.6 03/05/19 06:22 Absolute Neutrophils 6.40 k/cumm (1.2-6.7) 03/05/19 06:22 Absolute Lymphocytes 2.15 k/cumm (1.2-3.4) 03/05/19 06:22 Absolute Monocytes 1.20 k/cumm (0.11-0.7) H 03/05/19 06:22 Absolute Eosinophils 0.97 k/cumm (0.0-0.7) H 03/05/19 06:22 Absolute Basophils 0.07 k/cumm (0.0-0.2) 03/05/19 06:22 Sodium 142 mmol/L (136-145) 03/05/19 06:22 Potassium 3.9 mmol/L (3.5-5.1) 03/05/19 06:22 Chloride 100 mmol/L (98-107) 03/05/19 06:22 Carbon Dioxide 34.0 mmol/L (21.0-32.0) H 03/05/19 06:22 Anion Gap 8.0 mmol/L (3-11) 03/05/19 06:22 BUN 30 mg/dL (7-18) H 03/05/19 06:22 Creatinine 1.58 mg/dL (0.55-1.02) H 03/05/19 06:22 Estimated GFR/1.73 m2 32.72 (mL/min/1.73m2) 03/05/19 06:22 Glucose 156 mg/dL (70-100) H 03/05/19 06:22 Calcium 8.9 mg/dL (8.5-10.1) 03/05/19 06:22 Magnesium 1.7 mg/dL (1.8-2.4) L 03/05/19 06:22 Total Bilirubin 0.4 mg/dL (0.2-1.0) 03/03/19 13:20 AST 11 U/L (15-37) L 03/03/19 13:20 ALT 23 U/L (12-78) 03/03/19 13:20 Alkaline Phosphatase 97 U/L (46-116) 03/03/19 13:20 Troponin I < 0.05 ng/mL (0.00-0.06) 03/04/19 06:21 NT-Pro-B Natriuret Pep 1583 pg/mL (-299) H 03/05/19 06:22 Total Protein 7.3 g/dL (6.4-8.2) 03/03/19 13:20 Albumin 3.1 g/dL (3.4-5.0) L 03/03/19 13:20 Urine Color Yellow (Yellow) 03/05/19 09:55 Urine Clarity Sl cloudy (Clear) 03/05/19 09:55 Urine pH 5.5 (5-8) 03/05/19 09:55 Ur Specific [place] 1.010 (1.005-1.025) 03/05/19 09:55 Urine Protein Negative mg/dL (Negative) 03/05/19 09:55 Urine Ketones Negative mg/dL (Negative) 03/05/19 09:55 Urine Blood Trace-intact (Negative) H 03/05/19 09:55 Urine Nitrite Positive (Negative) H 03/05/19 09:55 Urine Bilirubin Negative (Negative) 03/05/19 09:55 Urine Urobilinogen 0.2 EU/dL (Up TO 0.2) 03/05/19 09:55 Ur Leukocyte Esterase Moderate (Negative) H 03/05/19 09:55 Urine RBC 5-10 (0-2) H 03/05/19 09:55 Urine WBC >50 HPF (0-5) 03/05/19 09:55 Ur Epithelial Cells Few HPF (Negative) 03/05/19 09:55 Urine Crystals Negative HPF (Negative) 03/05/19 09:55 Urine Bacteria Many HPF (Negative) 03/05/19 09:55 Urine Casts Negative LPF (Negative) 03/05/19 09:55 Urine Mucus Negative (Negative) 03/05/19 09:55 Urine Other (Negative) 03/05/19 09:55 Ur Culture Indicated? Yes 03/05/19 09:55 Urine Glucose Negative mg/dL (Negative) 03/05/19 09:55
--- NOTE | 2019-03-05 12:55 | PDOC.CMPRO ---
- If Service Date Differs Date of service: 03/05/19 Time of Service: 12:55 Care Management Progress Note S/O: CM met with Ann-Marie (Megan) and her daughter in the room today. Megan is sitting up she states she is feeling better and her breathing has improved. CM provided education at the bedside including ask me three and provided CHF guide to treatment and symptom management. Megan states she is weighing herself daily when she wakes up she is instructed to contact provider when she has gained more than two pounds. She reports a low sodium diet her daughter reports they are staying under 2 grams a day. Megan states she has scheduled follow up with senior account clerk at [facility] 03/19/19 she was hoping she would not have to return to [facility] due to discomforts of travel, she states she thought she was being referred to [facility] which would be much closer for her. CM offered to contact [facility] and find out if she is going to be referred closer to home to decrease barrier and improve access to care. Megan has applied for short term disability through work and she is now retired. She is comfortable with this plan A: Ann-Marie is a 68 year old female admitted with CHF, and telemetry. P: Ann-Marie continues to be acute, and continues on cardiac monitoring. She remains on a Lasix drip, and now has information r/t teaching and understanding CHF. Ann-Marie will be discharged home with resumptions of home health services including nursing, PT and OT. She will need to follow up with primary care as directed and cardiology as directed. Family will provide transport home when medically ready.
--- NOTE | 2019-03-05 13:10 | CMPROGNOTE_ITS ---
- If Service Date Differs Date of service: 03/05/19 Time of Service: 12:55 Care Management Progress Note S/O: CM met with Ann-Marie (Megan) and her daughter in the room today. Megan is sitting up she states she is feeling better and her breathing has improved. CM provided education at the bedside including ask me three and provided CHF guide to treatment and symptom management. Megan states she is weighing herself daily when she wakes up she is instructed to contact provider when she has gained more than two pounds. She reports a low sodium diet her daughter reports they are staying under 2 grams a day. Megan states she has scheduled follow up with [facility] at [facility] 03/19/19 she was hoping she would not have to return to [facility] due to discomforts of travel, she states she thought she was being referred to [facility] which would be much closer for her. CM offered to contact [facility] and find out if she is going to be referred closer to home to decrease barrier and improve access to care. Megan has applied for short term disability through work and she is now retired. She is comfortable with this plan A: Ann-Marie is a 68 year old female admitted with CHF, and telemetry. P: Ann-Marie continues to be acute, and continues on cardiac monitoring. She remains on a Lasix drip, and now has information r/t teaching and understanding CHF. Ann-Marie will be discharged home with resumptions of home health services including nursing, PT and OT. She will need to follow up with primary care as directed and cardiology as directed. Family will provide transport home when medically ready.
[2019-03-05] MEDS: cefTRIAXone 1 GM/50 ML BAG IVPB (14:10)
[2019-03-05] MEDS: Polyethylene Glycol 3350 17 GM PACKET PO (17:38)
[2019-03-05] MEDS: Docusate Sodium 100 MG CAP PO (20:24)
[2019-03-05] MEDS: Atorvastatin 40 MG TAB PO (21:40)
[2019-03-05] MEDS: Senna TAB 2 TAB PO (21:40)
[2019-03-05] MEDS: rOPINIRole 0.5 MG TAB 2 MG PO (21:52)
[2019-03-06] VITALS (17 sets, daily range): BP systolic 106–124; BP diastolic 49–75; PULSE 58–79; RESP 13–26; O2SAT 93–96
[2019-03-06] MEDS: Heparin 5,000 UNITS/ML VIAL 5000 UNITS SC ×3 (06:16→21:12)
[2019-03-06 06:52] LABS: Abs Immature Grans 0.07 k/cumm (0.0-0.09); Absolute Basophil Count 0.09 k/cumm (0.0-0.2); Absolute Eosinophil Count 1.19 k/cumm (0.0-0.7); Absolute Lymphocyte Count 2.35 k/cumm (1.2-3.4); Absolute Neutrophil Count 5.89 k/cumm (1.2-6.7); Basophils % 0.8; Eosinophils % 11.2; HCT 34.4 % (36.0-46.0); HGB 10.2 g/dL (12.0-15.5); Immature Grans % 0.7; Lymphocytes % 22.2; Mean Corp. HGB Concentration 29.7 g/dL (32.0-36.0); Mean Corpuscular Hemoglobin 26.4 pg (27.0-33.0); Mean Corpuscular Volume 89.1 fL (80-95); Monocytes % 9.4; Neutrophils % 55.7; Platelet Count 410 x1000/uL (130-400); RBC 3.86 m/cumm (4.00-5.20); RBC Distribution Width 16.8 % (11.7-14.6); White Blood Cell Count 10.59 k/cumm (4.4-10.8)
[2019-03-06 07:14] LABS: Anion Gap 5.6 mmol/L (3-11); BUN 33 mg/dL (7-18); CO2 34.4 mmol/L (21.0-32.0); CREATININE 1.53 mg/dL (0.55-1.02); Calcium 8.7 mg/dL (8.5-10.1); Chloride 101 mmol/L (98-107); Estimated GFR 33.96 (mL/min/1.73m2); Glucose 136 mg/dL (70-100); Magnesium 1.9 mg/dL (1.8-2.4); Potassium 4.1 mmol/L (3.5-5.1); Sodium 141 mmol/L (136-145)
[2019-03-06] MEDS: Gabapentin 600 MG TAB PO ×3 (08:54→20:47)
[2019-03-06] MEDS: Metoprolol CR 50 MG TABCR 150 MG PO (08:54)
[2019-03-06] MEDS: Calcium 600mg/Vit D 200U TAB 2 TAB PO ×2 (08:54→20:47)
[2019-03-06] MEDS: Docusate Sodium 100 MG CAP PO ×2 (08:54→20:47)
[2019-03-06] MEDS: DULoxetine 30 MG CAP 60 MG PO (08:54)
[2019-03-06] MEDS: Omeprazole 20 MG CAPCR 40 MG PO ×2 (08:54→20:47)
[2019-03-06] MEDS: Folic Acid 1 MG TAB PO (08:55)
[2019-03-06] MEDS: Aspirin E.C. 81 MG TABEC PO (08:55)
[2019-03-06] MEDS: dilTIAZem CD 120 MG CAPCR 240 MG PO (08:55)
[2019-03-06] MEDS: Cyanocobalamin 500 MCG TAB 1000 MCG PO (08:55)
[2019-03-06] MEDS: Allopurinol 100 MG TAB PO (08:55)
[2019-03-06] MEDS: Ergocalciferol 50000 UNITS CAP PO (09:05)
[2019-03-06] MEDS: Budesonide/Formoterol 160/4.5 6 GM 60 PUFF INH IH ×2 (09:13→21:08)
[2019-03-06] MEDS: Nystatin POWDER 60 GM JAR TP ×2 (09:43→21:07)
[2019-03-06] MEDS: Magnesium Oxide 400 MG TAB PO (09:43)
[2019-03-06] MEDS: Potassium Chloride 20 MEQ TABCR PO (09:43)
[2019-03-06] MEDS: Polyethylene Glycol 3350 17 GM PACKET PO (10:32)
[2019-03-06] MEDS: Insulin Aspart 300 UNITS/3 ML PEN SC ×2 (12:22→17:33)
[2019-03-06] MEDS: Milk of Magnesia 30 ML CUP PO (12:24)
--- NOTE | 2019-03-06 13:00 | PDOC.CMPRO ---
- If Service Date Differs Date of service: 03/06/19 Time of Service: 13:00 Care Management Progress Note S/O: CM met with Ann-Marie (Megan) and her daughter in the room today. Megan is sitting up in the chair. Her Lasix drip is not off she is feeling better she continues to require 1l of oxygen. CM contacted Cardiac surgery today she will need to go to [facility] for her follow up visit after surgery then she can transfer to [facility] cardiology where she will also participate [facility]. CM faxed previous and current information to [facility] Cardiac Surgery for follow up fax [phone] 03/19/19 at 1100 for xray and 1140 for MD appt. A: Ann-Marie is a 68 year old female admitted with CHF, and telemetry. P: Ann-Marie continues to be acute, and continues on cardiac monitoring. She remains in the ICU. Ann-Marie will be discharged home with resumptions of home health services including nursing, PT and OT. She will need to follow up with primary care as directed and cardiology as directed. Family will provide transport home when medically ready.
--- NOTE | 2019-03-06 13:05 | CMPROGNOTE_ITS ---
- If Service Date Differs Date of service: 03/06/19 Time of Service: 13:00 Care Management Progress Note S/O: CM met with Ann-Marie (Megan) and her daughter in the room today. Megan is sitting up in the chair. Her Lasix drip is not off she is feeling better she continues to require 1l of oxygen. CM contacted Cardiac surgery today she will need to go to [facility] for her follow up visit after surgery then she can transfer to [facility] cardiology where [facility]. CM faxed previous and current information to [facility] Cardiac Surgery for follow up fax [phone] 03/19/19 at 1100 for xray and 1140 for MD appt. A: Ann-Marie is a 68 year old female admitted with CHF, and telemetry. P: Ann-Marie continues to be acute, and continues on cardiac monitoring. She remains in the ICU. Ann-Marie will be discharged home with resumptions of home health services including nursing, PT and OT. She will need to follow up with primary care as directed and cardiology as directed. Family will provide transport home when medically ready.
[2019-03-06] MEDS: cefTRIAXone 1 GM/50 ML BAG IVPB (13:52)
[2019-03-06] MEDS: Normal Saline Flush 10 ML SYR IVP (14:10)
--- NOTE | 2019-03-06 15:41 | W.PM.PROGNOT ---
Date of Service Date of service: 03/06/19 Time of Service: 15:42 Assessment and Plan (1) Hypoxia: Current visit: Yes Status: Acute Unclear etiology, but with rather abrupt onset. - PE ruled out with CT. - Consider acute CHF exacerbation - patient had an elevated BNP similiar in value to last hospitalization when she was treated for CHF exacerbation. Has diuresed well with lasix gtt and reports feeling better, with a significant drop in BNP from 5000's to 1500 yesterday morning. Renal function improved and stable. Continue diuresis. - Patient also with a history of COPD, and currently with decreased breath sounds but no wheezing. Continue to monitor. - Consider aspiration pneumonia in setting of illness at home with nausea and vomiting. However, patient's mild leukocytosis has essentially resolved and she remains afebrile, previously off antibiotic therapy - she has also undergone 2 recent courses of broad spectrum antibiotic therapy for Pneumonia. Monitor symptoms closely, but continue to hold off antibiotic therapy for pulmonary infection at this time (initiated on Abx for UTI). (2) Acute diastolic CHF (congestive heart failure): Current visit: No Status: Chronic Evidence of Diastolic Dysfunction by ECHO 01/2018, with intact LVEF. Currently with elevated BNP that is unchanged from last hospitalization, when patient was also treated for an acute exacerbation of her underlying diastolic CHF. Currently diuresing well, feels improved subjectively, and with drop in BNP 5050 -->1583 and down to 1L O2 by Nasal Cannula - continue low dose lasix gtt and monitor daily weight and I/O's carefully. Flynn Catheter in place for accurate measurement of UOP. Appears net negative approximately 4L. (3) UTI (urinary tract infection): Current visit: Yes Status: Acute Ceftriaxone #2, with Urine Cultures showing E.Coli, sensitivities pending. Changed Flynn Catheter as well. (4) Constipation: Current visit: Yes Status: Acute Change Colace from prn to standing, initiate Senna, and continue Miralax as needed. Will attempt one time administration of Mag Citrate today. (5) CKD (chronic kidney disease) stage 3, GFR 30-59 ml/min: Current visit: No Status: Chronic Mild ZACHARY superimposed on CKD, appears resolved. Monitor renal function and electrolytes carefully, especially in setting of active diuresis. Renally dose medications when needed, and avoid nephrotoxins. (6) CAD (coronary artery disease): Current visit: No Status: Chronic S/p CABG in December - serial cardiac biomarkers negative. Continue BB, ASA, high potency statin. Currently asymptomatic. (7) Diabetes mellitus: Current visit: No Status: Chronic Continue sliding scale coverage. 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 (9) Atrial fibrillation: Current visit: No Status: Chronic Remaining in sinus. Continue BB. No AC as patient is s/p PINEDA excision at time of CABG. (10) DVT prophylaxis: Current visit: Yes Status: Acute SC Heparin. Also on PPI therapy for GI prophylaxis. (11) Advance directive on file: Current visit: Yes Status: Acute Full Code. Subjective Interval history since last seen: 68 year old woman with a history of recent hospitalizations and treatment for Pneumonia, admitted 03/03 from [facility] Emergency Department with a diagnosis of Hypoxia. Mrs. Griggs has a Past Medical History significant for CKD, Obesity, DM, COPD, depression, gout, RLS, and spinal stenosis. She also had known CAD, s/p 3 vessel CABG at [facility] in December of 2018 following an NSTEMI. She also has a prior history of PAF, for which she underwent excision of her Left Atrial Appendage at the time of her CABG, and now remains off anticoagulation. Following her surgery the patient was discharged to [facility], prior to being admitted at [facility] with a diagnosis of Healthcare Aquired Pneumonia between 01/15 and 01/22/2019, then readmitted in late January with recurrent pneumonia, Atrial Flutter, and CHF. She was discharged in stable condition. The patient reports symptoms of generalized malaise, with onset of nausea, fatigue, and weakness a few days prior to her admission. On the day of admission she was noted to be hypoxic by home health, with a pulse ox in the 70's, and was sent to the ED for further evaluation. Work-up in the ED was significant for a mild leukocytosis, mildly worsening renal function, and an elevated BNP unchanged from her prior hospitalization (During which time she was treated for an acute CHF exacerbation). Despite her worsening renal function a CT of the chest with contrast was obtained and showed bibasilar atelctasis vs. a right basilar infiltrate, with a smal to moderate left sided pleural effusion, with no evidence for a Pulmonary Embolism. The patient was referred for admission for further evaluation and treatment. This morning Mrs. Griggs reports continued improvement in her symptoms, continues to require oxygen but decreased to 1L by NC. She also states that she is no longer nauseous and feels better overall. Her Lasix drip was turned off early in the morning as she was showing excellent output on minimal dosing. She also reports continued constipation. She was initiated on antibiotic therapy for an abnormal urinalysis, with Culture results showing growth of E.Coli. No overnight events reported. Remains afebrile. Exam Narrative Exam Narrative: General: Patient appears comfortable, AAOX3, NAD Neck: Supple CV: Regular, nontachycardic, S1S2, No rubs, murmurs, or gallops. Pulmonary: Bibasilar crackles vastly improved, diminished breath sounds left base. Abdomen: + Bowel Sounds, soft, nontender, nondistended Vascular: Minimal b/l lower extremity edema Psych: Normal mood and affect. Objective Objective Clinical Data: Abnormal lab results 03/06/19 03/06/19 Range/Units 06:33 06:33 RBC 3.86 L (4.00-5.20) m/cumm Hgb 10.2 L (12.0-15.5) g/dL Hct 34.4 L (36.0-46.0) % MCH 26.4 L (27.0-33.0) pg MCHC 29.7 L (32.0-36.0) g/dL RDW 16.8 H (11.7-14.6) % Plt Count 410 H (130-400) x1000/uL Absolute Monocytes 1.00 H (0.11-0.7) k/cumm Absolute Eosinophils 1.19 H (0.0-0.7) k/cumm Carbon Dioxide 34.4 H (21.0-32.0) mmol/L BUN 33 H (7-18) mg/dL Creatinine 1.53 H (0.55-1.02) mg/dL Glucose 136 H (70-100) mg/dL Vital Signs Temperature 36.3 C L 03/05/19 16:18 Temperature Source Temporal Artery Scan 03/05/19 16:18 Pulse 64 03/06/19 08:01 Pulse Rhythm Regular 03/06/19 09:20 Pulse 70 03/06/19 10:00 Respiratory Rate 17 03/06/19 10:00 Respiratory Effort 03/06/19 09:20 Respiratory Depth Normal 03/06/19 09:20 Respiratory Pattern Normal 03/06/19 09:20 Blood Pressure 116/49 L 03/06/19 08:01 Blood Pressure Mean 65 03/06/19 08:01 Blood Pressure Position Supine 03/03/19 18:36 Pulse Oximetry 96 03/06/19 10:41 Oxygen Delivery Method Nasal Cannula 03/06/19 10:41 Oxygen Flow Rate 1 03/06/19 10:41 Pain Level 0 03/05/19 16:18 Comment 03/05/19 09:58 Intake & Output 03/05/19 03/06/19 03/06/19 23:59 11:59 23:59 Intake Total 1523.875 / 1753.875 487.5 / 967.5 480 / 967.5 Output Total 1974 1475 / 1475 Balance -451.125 / -1671.125 -987.5 / -507.5 480 / -507.5 Weight 120.8 kg Intake: IV 153.875 / 263.875 7.5 / 7.5 Oral 1370 / 1490 480 / 960 480 / 960 Output: Urine 19745 1475 / 1475 Other: Urine Color Yellow Yellow Urine Appearance Clear Clear Comment Lasix drip at 5mg/hr with 725 cc output since 1849. Drip rate now turned down to 2.5mg/hr with Md's goal of 100cc/hr urinary output in mind. Lasix drip remains off with U/O at 200cc in past hour. Stool Size Moderate Stool Characteristics Brown Voiding Methods Indwelling Catheter Laboratory Results WBC 10.59 k/cumm (4.4-10.8) 03/06/19 06:33 RBC 3.86 m/cumm (4.00-5.20) L 03/06/19 06:33 Hgb 10.2 g/dL (12.0-15.5) L 03/06/19 06:33 Hct 34.4 % (36.0-46.0) L 03/06/19 06:33 MCV 89.1 fL (80-95) 03/06/19 06:33 MCH 26.4 pg (27.0-33.0) L 03/06/19 06:33 MCHC 29.7 g/dL (32.0-36.0) L 03/06/19 06:33 RDW 16.8 % (11.7-14.6) H 03/06/19 06:33 Plt Count 410 x1000/uL (130-400) H 03/06/19 06:33 MPV 10.0 fL (8.0-11.0) 03/06/19 06:33 Immature Gran % 0.7 03/06/19 06:33 Neutrophils % 55.7 03/06/19 06:33 Lymphocytes % 22.2 03/06/19 06:33 Monocytes % 9.4 03/06/19 06:33 Eosinophils % 11.2 03/06/19 06:33 Basophils % 0.8 03/06/19 06:33 Absolute Neutrophils 5.89 k/cumm (1.2-6.7) 03/06/19 06:33 Absolute Lymphocytes 2.35 k/cumm (1.2-3.4) 03/06/19 06:33 Absolute Monocytes 1.00 k/cumm (0.11-0.7) H 03/06/19 06:33 Absolute Eosinophils 1.19 k/cumm (0.0-0.7) H 03/06/19 06:33 Absolute Basophils 0.09 k/cumm (0.0-0.2) 03/06/19 06:33 Sodium 141 mmol/L (136-145) 03/06/19 06:33 Potassium 4.1 mmol/L (3.5-5.1) 03/06/19 06:33 Chloride 101 mmol/L (98-107) 03/06/19 06:33 Carbon Dioxide 34.4 mmol/L (21.0-32.0) H 03/06/19 06:33 Anion Gap 5.6 mmol/L (3-11) 03/06/19 06:33 BUN 33 mg/dL (7-18) H 03/06/19 06:33 Creatinine 1.53 mg/dL (0.55-1.02) H 03/06/19 06:33 Estimated GFR/1.73 m2 33.96 (mL/min/1.73m2) 03/06/19 06:33 Glucose 136 mg/dL (70-100) H 03/06/19 06:33 Calcium 8.7 mg/dL (8.5-10.1) 03/06/19 06:33 Magnesium 1.9 mg/dL (1.8-2.4) 03/06/19 06:33 Total Bilirubin 0.4 mg/dL (0.2-1.0) 03/03/19 13:20 AST 11 U/L (15-37) L 03/03/19 13:20 ALT 23 U/L (12-78) 03/03/19 13:20 Alkaline Phosphatase 97 U/L (46-116) 03/03/19 13:20 Troponin I < 0.05 ng/mL (0.00-0.06) 03/04/19 06:21 NT-Pro-B Natriuret Pep 1583 pg/mL (-299) H 03/05/19 06:22 Total Protein 7.3 g/dL (6.4-8.2) 03/03/19 13:20 Albumin 3.1 g/dL (3.4-5.0) L 03/03/19 13:20 Urine Color Yellow (Yellow) 03/05/19 09:55 Urine Clarity Sl cloudy (Clear) 03/05/19 09:55 Urine pH 5.5 (5-8) 03/05/19 09:55 Ur Specific [place] 1.010 (1.005-1.025) 03/05/19 09:55 Urine Protein Negative mg/dL (Negative) 03/05/19 09:55 Urine Ketones Negative mg/dL (Negative) 03/05/19 09:55 Urine Blood Trace-intact (Negative) H 03/05/19 09:55 Urine Nitrite Positive (Negative) H 03/05/19 09:55 Urine Bilirubin Negative (Negative) 03/05/19 09:55 Urine Urobilinogen 0.2 EU/dL (Up TO 0.2) 03/05/19 09:55 Ur Leukocyte Esterase Moderate (Negative) H 03/05/19 09:55 Urine RBC 5-10 (0-2) H 03/05/19 09:55 Urine WBC >50 HPF (0-5) 03/05/19 09:55 Ur Epithelial Cells Few HPF (Negative) 03/05/19 09:55 Urine Crystals Negative HPF (Negative) 03/05/19 09:55 Urine Bacteria Many HPF (Negative) 03/05/19 09:55 Urine Casts Negative LPF (Negative) 03/05/19 09:55 Urine Mucus Negative (Negative) 03/05/19 09:55 Urine Other (Negative) 03/05/19 09:55 Ur Culture Indicated? Yes 03/05/19 09:55 Urine Glucose Negative mg/dL (Negative) 03/05/19 09:55
--- NOTE | 2019-03-06 15:53 | PGE_ITS ---
Date of Service Date of service: 03/06/19 Time of Service: 15:42 Assessment and Plan (1) Hypoxia: Current visit: Yes Status: Acute Unclear etiology, but with rather abrupt onset. - PE ruled out with CT. - Consider acute CHF exacerbation - patient had an elevated BNP similiar in value to last hospitalization when she was treated for CHF exacerbation. Has diuresed well with lasix gtt and reports feeling better, with a significant drop in BNP from 5000's to 1500 yesterday morning. Renal function improved and stable. Continue diuresis. - Patient also with a history of COPD, and currently with decreased breath sounds but no wheezing. Continue to monitor. - Consider aspiration pneumonia in setting of illness at home with nausea and vomiting. However, patient's mild leukocytosis has essentially resolved and she remains afebrile, previously off antibiotic therapy - she has also undergone 2 recent courses of broad spectrum antibiotic therapy for Pneumonia. Monitor symptoms closely, but continue to hold off antibiotic therapy for pulmonary infection at this time (initiated on Abx for UTI). (2) Acute diastolic CHF (congestive heart failure): Current visit: No Status: Chronic Evidence of Diastolic Dysfunction by ECHO 01/2018, with intact LVEF. Curre ntly with elevated BNP that is unchanged from last hospitalization, when patient was also treated for an acute exacerbation of her underlying diastolic CHF. Currently diuresing well, feels improved subjectively, and with drop in BNP 5050 -->1583 and down to 1L O2 by Nasal Cannula - continue low dose lasix gtt and monitor daily weight and I/O's carefully. Flynn Catheter in place for accurate measurement of UOP. Appears net negative approximately 4L. (3) UTI (urinary tract infection): Current visit: Yes Status: Acute Ceftriaxone #2, with Urine Cultures showing E.Coli, sensitivities pending. Changed Flynn Catheter as well. (4) Constipation: Current visit: Yes Status: Acute Change Colace from prn to standing, initiate Senna, and continue Miralax as needed. Will attempt one time administration of Mag Citrate today. (5) CKD (chronic kidney disease) stage 3, GFR 30-59 ml/min: Current visit: No Status: Chronic Mild ZACHARY superimposed on CKD, appears resolved. Monitor renal function and electrolytes carefully, especially in setting of active diuresis. Renally dose medications when needed, and avoid nephrotoxins. (6) CAD (coronary artery disease): Current visit: No Status: Chronic S/p CABG in December - serial cardiac biomarkers negative. Continue BB, ASA, high potency statin. Currently asymptomatic. (7) Diabetes mellitus: Current visit: No Status: Chronic Continue sliding scale coverage. 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 (9) Atrial fibrillation: Current visit: No Status: Chronic Remaining in sinus. Continue BB. No AC as patient is s/p PINEDA excision at time of CABG. (10) DVT prophylaxis: Current visit: Yes Status: Acute SC Heparin. Also on PPI therapy for GI prophylaxis. (11) Advance directive on file: Current visit: Yes Status: Acute Full Code. Subjective Interval history since last seen: 68 year old woman with a history of recent hospitalizations and treatment for Pneumonia, admitted 03/03 from [facility] Emergency Department with a diagnosis of Hypoxia. Mrs. Griggs has a Past Medical History significant for CKD, Obesity, DM, COPD, depression, gout, RLS, and spinal stenosis. She also had known CAD, s/p 3 vessel CABG at [facility] in December of 2018 following an NSTEMI. She also has a prior history of PAF, for which she underwent excision of her Left Atrial Appendage at the time of her CABG, and now remains off anticoagulation. Following her surgery the patient was discharged to [facility], prior to being admitted at [facility] with a diagnosis of Healthcare Aquired Pneumonia between d 01/22/2019, then readmitted in late January with recurrent pneumonia, Atrial Flutter, and CHF. She was discharged in stable condition. The patient reports symptoms of generalized malaise, with onset of nausea, fatigue, and weakness a few days prior to her admission. On the day of admission she was noted to be hypoxic by home health, with a pulse ox in the 70's, and was sent to the ED for further evaluation. Work-up in the ED was significant for a mild leukocytosis, mildly worsening renal function, and an elevated BNP unchanged from her prior hospitalization (During which time she was treated for an acute CHF exacerbation). Despite her worsening renal function a CT of the chest with contrast was obtained and showed bibasilar atelctasis vs. a right basilar infiltrate, with a smal to moderate left sided pleural effusion, with no evidence for a Pulmonary Embolism. The patient was referred for admission for further evaluation and treatment. This morning Mrs. Griggs reports continued improvement in her symptoms, continues to require oxygen but decreased to 1L by NC. She also states that she is no longer nauseous and feels better overall. Her Lasix drip was turned off early in the morning as she was showing excellent output on minimal dosing. She also reports continued constipation. She was initiated on antibiotic therapy for an abnormal urinalysis, with Culture results showing growth of E.Coli. No overnight events reported. Remains afebrile. Exam Narrative Exam Narrative: General: Patient appears comfortable, AAOX3, NAD Neck: Supple CV: Regular, nontachycardic, S1S2, No rubs, murmurs, or gallops. Pulmonary: Bibasilar crackles vastly improved, diminished breath sounds left base. Abdomen: + Bowel Sounds, soft, nontender, nondistended Vascular: Minimal b/l lower extremity edema Psych: Normal mood and affect. Objective Objective Clinical Data: Abnormal lab results 03/06/19 03/06/19 Range/Units 06:33 06:33 RBC 3.86 L (4.00-5.20) m/cumm Hgb 10.2 L (12.0-15.5) g/dL Hct 34.4 L (36.0-46.0) % MCH 26.4 L (27.0-33.0) pg MCHC 29.7 L (32.0-36.0) g/dL RDW 16.8 H (11.7-14.6) % Plt Count 410 H (130-400) x1000/uL Absolute Monocytes 1.00 H (0.11-0.7) k/cumm Absolute Eosinophils 1.19 H (0.0-0.7) k/cumm Carbon Dioxide 34.4 H (21.0-32.0) mmol/L BUN 33 H (7-18) mg/dL Creatinine 1.53 H (0.55-1.02) mg/dL Glucose 136 H (70-100) mg/dL Vital Signs Temperature 36.3 C L 03/05/19 16:18 Temperature Source Temporal Artery Scan 03/05/19 16:18 Pulse 64 06/26/19 08:01 Pulse Rhythm Regular 03/06/19 09:20 Pulse 70 03/06/19 10:00 Respiratory Rate 17 03/06/19 10:00 Respiratory Effort 03/06/19 09:20 Respiratory Depth Normal 03/06/19 09:20 Respiratory Pattern Normal 03/06/19 09:20 Blood Pressure 116/49 L 03/06/19 08:01 Blood Pressure Mean 65 03/06/19 08:01 Blood Pressure Position Supine 03/03/19 18:36 Pulse Oximetry 96 03/06/19 10:41 Oxygen Delivery Method Nasal Cannula 03/06/19 10:41 Oxygen Flow Rate 1 03/06/19 10:41 Pain Level 0 03/05/19 16:18 Comment 03/05/19 09:58 Intake & Output 03/05/19 03/06/19 03/06/19 23:59 11:59 23:59 Intake Total 1523.875 / 1753.875 487.5 / 967.5 480 / 967.5 Output Total 1974 1475 / 1475 Balance -451.125 / -1671.125 -987.5 / -507.5 480 / -507.5 Weight 120.8 kg Intake: IV 153.875 / 263.875 7.5 / 7.5 Oral 1370 / 1490 480 / 960 480 / 960 Output: Urine 19745 1475 / 1475 Other: Urine Color Yellow Yellow Urine Appearance Clear Clear Comment Lasix drip at 5mg/hr with 725 cc output since 1849. Drip rate now turned down to 2.5mg/hr with Md's goal of 100cc/hr urinary output in mind. Lasix drip remains off with U/O at 200cc in past hour. Stool Size Moderate Stool Characteristics Brown Voiding Methods Indwelling Catheter Laboratory Results WBC 10.59 k/cumm (4.4-10.8) 03/06/19 06:33 RBC 3.86 m/cumm (4.00-5.20) L 03/06/19 06:33 Hgb 10.2 g/dL (12.0-15.5) L 03/06/19 06:33 Hct 34.4 % (36.0-46.0) L 03/06/19 06:33 MCV 89.1 fL (80-95) 03/06/19 06:33 MCH 26.4 pg (27.0-33.0) L 03/06/19 06:33 MCHC 29.7 g/dL (32.0-36.0) L 03/06/19 06:33 RDW 16.8 % (11.7-14.6) H 03/06/19 06:33 Plt Count 410 x1000/uL (130-400) H 03/06/19 06:33 MPV 10.0 fL (8.0-11.0) 03/06/19 06:33 Immature Gran % 0.7 03/06/19 06:33 Neutrophils % 55.7 03/06/19 06:33 Lymphocytes % 22.2 03/06/19 06:33 Monocytes % 9.4 03/06/19 06:33 Eosinophils % 11.2 03/06/19 06:33 Basophils % 0.8 03/06/19 06:33 Absolute Neutrophils 5.89 k/cumm (1.2-6.7) 03/06/19 06:33 Absolute Lymphocytes 2.35 k/cumm (1.2-3.4) 03/06/19 06:33 Absolute Monocytes 1.00 k/cumm (0.11-0.7) H 03/06/19 06:33 Absolute Eosinophils 1.19 k/cumm (0.0-0.7) H 03/06/19 06:33 Absolute Basophils 0.09 k/cumm (0.0-0.2) 03/06/19 06:33 Sodium 141 mmol/L (136-145) 03/06/19 06:33 Potassium 4.1 mmol/L (3.5-5.1) 03/06/19 06:33 Chloride 101 mmol/L (98-107) 03/06/19 06:33 Carbon Dioxide 34.4 mmol/L (21.0-32.0) H 03/06/19 06:33 Anion Gap 5.6 mmol/L (3-11) 03/06/19 06:33 BUN 33 mg/dL (7-18) H 03/06/19 06:33 Creatinine 1.53 mg/dL (0.55-1.02) H 03/06/19 06:33 Estimated GFR/1.73 m2 33.96 (mL/min/1.73m2) 03/06/19 06:33 Glucose 136 mg/dL (70-100) H 03/06/19 06:33 Calcium 8.7 mg/dL (8.5-10.1) 03/06/19 06:33 Magnesium 1.9 mg/dL (1.8-2.4) 03/06/19 06:33 Total Bilirubin 0.4 mg/dL (0.2-1.0) 03/03/19 13:20 AST 11 U/L (15-37) L 03/03/19 13:20 ALT 23 U/L (12-78) 03/03/19 13:20 Alkaline Phosphatase 97 U/L (46-116) 03/03/19 13:20 Troponin I < 0.05 ng/mL (0.00-0.06) 03/04/19 06:21 NT-Pro-B Natriuret Pep 1583 pg/mL (-299) H 03/05/19 06:22 Total Protein 7.3 g/dL (6.4-8.2) 03/03/19 13:20 Albumin 3.1 g/dL (3.4-5.0) L 03/03/19 13:20 Urine Color Yellow (Yellow) 03/05/19 09:55 Urine Clarity Sl cloudy (Clear) 03/05/19 09:55 Urine pH 5.5 (5-8) 03/05/19 09:55 Ur Specific [place] 1.010 (1.005-1.025) 03/05/19 09:55 Urine Protein Negative mg/dL (Negative) 03/05/19 09:55 Urine Ketones Negative mg/dL (Negative) 03/05/19 09:55 Urine Blood Trace-intact (Negative) H 03/05/19 09:55 Urine Nitrite Positive (Negative) H 03/05/19 09:55 Urine Bilirubin Negative (Negative) 03/05/19 09:55 Urine Urobilinogen 0.2 EU/dL (Up TO 0.2) 03/05/19 09:55 Ur Leukocyte Esterase Moderate (Negative) H 03/05/19 09:55 Urine RBC 5-10 (0-2) H 03/05/19 09:55 Urine WBC >50 HPF (0-5) 03/05/19 09:55 Ur Epithelial Cells Few HPF (Negative) 03/05/19 09:55 Urine Crystals Negative HPF (Negative) 03/05/19 09:55 Urine Bacteria Many HPF (Negative) 03/05/19 09:55 Urine Casts Negative LPF (Negative) 03/05/19 09:55 Urine Mucus Negative (Negative) 03/05/19 09:55 Urine Other (Negative) 03/05/19 09:55 Ur Culture Indicated? Yes 03/05/19 09:55 Urine Glucose Negative mg/dL (Negative) 03/05/19 09:55
[2019-03-06] MEDS: Magnesium Citrate 300 ML BTL PO (17:03)
[2019-03-06] MEDS: Atorvastatin 40 MG TAB PO (21:07)
[2019-03-06] MEDS: rOPINIRole 0.5 MG TAB 2 MG PO (21:15)
[2019-03-07] VITALS (13 sets, daily range): BP systolic 103–126; BP diastolic 56–68; PULSE 64–89; RESP 18–27; TEMP 36.5–37.4; O2SAT 92–94
[2019-03-07] MEDS: Heparin 5,000 UNITS/ML VIAL 5000 UNITS SC ×3 (05:42→22:38)
[2019-03-07 07:33] LABS: Abs Immature Grans 0.07 k/cumm (0.0-0.09); Absolute Basophil Count 0.12 k/cumm (0.0-0.2); Absolute Eosinophil Count 0.93 k/cumm (0.0-0.7); Absolute Lymphocyte Count 2.21 k/cumm (1.2-3.4); Absolute Monocyte Count 1.04 k/cumm (0.11-0.7); Absolute Neutrophil Count 5.07 k/cumm (1.2-6.7); Basophils % 1.3; Eosinophils % 9.9; HGB 10.3 g/dL (12.0-15.5); Immature Grans % 0.7; Lymphocytes % 23.4; Mean Corp. HGB Concentration 29.4 g/dL (32.0-36.0); Mean Corpuscular Hemoglobin 26.3 pg (27.0-33.0); Mean Corpuscular Volume 89.3 fL (80-95); Mean Platelet Volume 9.9 fL (8.0-11.0); Neutrophils % 53.7; Platelet Count 451 x1000/uL (130-400); RBC 3.92 m/cumm (4.00-5.20); RBC Distribution Width 16.8 % (11.7-14.6); White Blood Cell Count 9.44 k/cumm (4.4-10.8)
[2019-03-07 08:14] LABS: Anion Gap 6.8 mmol/L (3-11); BUN 34 mg/dL (7-18); CO2 34.2 mmol/L (21.0-32.0); CREATININE 1.72 mg/dL (0.55-1.02); Calcium 9.5 mg/dL (8.5-10.1); Chloride 101 mmol/L (98-107); Estimated GFR 29.67 (mL/min/1.73m2); Glucose 166 mg/dL (70-100); Magnesium 2.4 mg/dL (1.8-2.4); NT-proBNP 935 pg/mL; Potassium 4.3 mmol/L (3.5-5.1); Sodium 142 mmol/L (136-145)
--- NOTE | 2019-03-07 08:16 | PDOC.CMPRO ---
- If Service Date Differs Date of service: 03/07/19 Time of Service: 08:16 Care Management Progress Note S/O: Megan looks good today she is sitting up in the chair she has ambulated in the halls today. She is grateful for the ask me three book and teaching r/t to CHF. She would like a consult with Renetta Naqvi prior to discharge to discuss low sodium and ADA diet. Her [place] scheduled [place] [facility] [place] which she is aware of. A: Ann-Marie is a 68 year old female admitted with CHF, and telemetry. P: Ann-Marie continues to be acute, and continues on cardiac monitoring. Ann-Marie will be discharged home with resumptions of home health services including nursing, PT and OT. She will need to follow up with primary care as directed and cardiology as directed. She will begin cardiac rehab once she is medically cleared. D/C info to be faxed to [phone], Family will provide transport home when medically ready.
[2019-03-07] MEDS: Budesonide/Formoterol 160/4.5 6 GM 60 PUFF INH IH ×2 (08:53→19:51)
[2019-03-07] MEDS: dilTIAZem CD 120 MG CAPCR 240 MG PO (08:54)
[2019-03-07] MEDS: Cyanocobalamin 500 MCG TAB 1000 MCG PO (08:54)
[2019-03-07] MEDS: Folic Acid 1 MG TAB PO (08:54)
[2019-03-07] MEDS: Metoprolol CR 50 MG TABCR 150 MG PO (08:54)
[2019-03-07] MEDS: DULoxetine 30 MG CAP 60 MG PO (08:54)
[2019-03-07] MEDS: Omeprazole 20 MG CAPCR 40 MG PO ×2 (08:54→19:52)
[2019-03-07] MEDS: Calcium 600mg/Vit D 200U TAB 2 TAB PO ×2 (08:54→19:51)
[2019-03-07] MEDS: Allopurinol 100 MG TAB PO (08:55)
[2019-03-07] MEDS: Insulin Aspart 300 UNITS/3 ML PEN SC ×3 (08:55→17:16)
[2019-03-07] MEDS: Gabapentin 600 MG TAB PO ×3 (08:55→19:52)
[2019-03-07] MEDS: Docusate Sodium 100 MG CAP PO ×2 (08:55→19:51)
[2019-03-07] MEDS: Aspirin E.C. 81 MG TABEC PO (08:55)
[2019-03-07] MEDS: Nystatin POWDER 60 GM JAR TP ×2 (08:56→20:09)
--- NOTE | 2019-03-07 11:10 | PHARADMIT ---
Admission Pharmacy Clinical Review HYPOXIA Code Status Full Code Current Weight 117.6 kg Renally Cleared and Narrow Therapeutic Index Meds CC 33.6 ml/min QTc Value / Action Taken on 03/03/19: QTC 383 (Cymbalta, Tramadol) BP Control, Fever BP 103/57 Afebrile Electrolytes reviewed WNL DVT Prophylaxis Heparin SC Opiate Usage / Scheduled Bowel Regimen Ordered Tramadol/yes bowel meds Plt/SCr for Heparin / Enoxaparin Plt 451 and trending up INR for Warfarin H/H stable, WBC/Bands H/H 10.3/35, WBC 9.44 Antibiotic appropriateness Rocephin-today will be day#3 later today Cultures and Sensitivities Urine: >100K E.Coli Surgical ABX d/c within 24 hr DM control / Insulin Dosing Novolog, Glucotrol XL Heart Failure (Check EF%) (MARTIR's, B-Block, Diuretics) Diltiazem, Lasix, Toprol IV to PO Switch Home Meds Reviewed Pt's own Victoza....not brought in Home Meds Not Ordered Comments diuresing nicely, down every day, I/O negative-will back down on Lasix, infusion dc'd, changed to oral today Possible discharge Monday03/08/19 after PT eval
--- NOTE | 2019-03-07 13:53 | W.PM.PROGNOT ---
Date of Service Date of service: 03/07/19 Time of Service: 13:54 Assessment and Plan (1) Hypoxia: Current visit: Yes Status: Acute Potentially on the basis of CHF. - PE ruled out with CT. - Patient treated for acute CHF exacerbation - had an elevated BNP similiar in value to last hospitalization when she was treated for CHF exacerbation. Has diuresed well with lasix gtt and reports feeling better, with a significant drop in BNP from 5000's to 1500 yesterday morning, now at 935. Renal function with minimal worsening of creatinine. Continue diuresis, but change back to oral lasix. - Patient also with a history of COPD, but appears quiescent with no wheezing. Continue to monitor. - Consider aspiration pneumonia in setting of illness at home with nausea and vomiting. However, patient's mild leukocytosis has resolved and she remains afebrile, previously off antibiotic therapy - she has also undergone 2 recent courses of broad spectrum antibiotic therapy for Pneumonia. Monitor symptoms closely, but continue to hold off antibiotic therapy for pulmonary infection at this time (initiated on Abx for UTI). (2) Acute diastolic CHF (congestive heart failure): Current visit: No Status: Chronic Evidence of Diastolic Dysfunction by ECHO 01/2018, with intact LVEF. Initially with elevated BNP that was unchanged from last hospitalization, when patient was also treated for an acute exacerbation of her underlying diastolic CHF. Has diuresed, feels vastly improved subjectively, and with drop in BNP 5050 --> 935, and no longer requiring oxygen at rest or with ambulation. Discontinue lasix gtt and change back to oral formulation. Dry weight appears to be 117-119 Kg. Discontinue Flynn Catheter. Appears net negative approximately 4-5L. (3) UTI (urinary tract infection): Current visit: Yes Status: Acute Ceftriaxone #3, with Urine Cultures showing E.Coli. (4) Constipation: Current visit: Yes Status: Acute Reported bowel movement with bowel regimen. (5) CKD (chronic kidney disease) stage 3, GFR 30-59 ml/min: Current visit: No Status: Chronic Mild ZACHARY superimposed on CKD, appeared resolved, now mildly wose following continued diuresis. Will change to PO lasix, and continue to monitor renal function and electrolytes carefully. Renally dose medications when needed, and avoid nephrotoxins. (6) CAD (coronary artery disease): Current visit: No Status: Chronic S/p CABG in December - serial cardiac biomarkers negative. Continue BB, ASA, high potency statin. Currently asymptomatic. (7) Diabetes mellitus: Current visit: No Status: Chronic Continue sliding scale coverage. Also on Glipizide, QHS Liraglutide. Qualifiers: Diabetes mellitus type: type 2 Diabetes mellitus prison insulin use: without terminal clerk use Diabetes mellitus complication status: with kidney complications Diabetes mellitus complication detail: with chronic kidney disease (8) Hyperlipidemia: Current visit: No Status: Chronic On high potency statin. (9) Atrial fibrillation: Current visit: No Status: Chronic Remaining in sinus. Continue BB. No AC as patient is s/p PINEDA excision at time of CABG. (10) DVT prophylaxis: Current visit: Yes Status: Acute SC Heparin. Also on PPI therapy for GI prophylaxis. (11) Advance directive on file: Current visit: Yes Status: Acute Full Code. Subjective Interval history since last seen: 68 year old woman with a history of recent hospitalizations and treatment for Pneumonia, admitted 03/03 from [facility] Emergency Department with a diagnosis of Hypoxia. Mrs. Griggs has a Past Medical History significant for CKD, Obesity, DM, COPD, depression, gout, RLS, and spinal stenosis. She also had known CAD, s/p 3 vessel [place] [facility] [place] following an NSTEMI. She also has a prior history of PAF, for which she underwent excision of her Left Atrial Appendage at the time of her CABG, and now remains off anticoagulation. Following her surgery the patient was discharged to [facility], prior to being admitted at [facility] with a diagnosis of Healthcare Aquired Pneumonia between 01/15 and 01/22/2019, then readmitted in late January with recurrent pneumonia, Atrial Flutter, and CHF. She was discharged in stable condition. The patient reports symptoms of generalized malaise, with onset of nausea, fatigue, and weakness a few days prior to her admission. On the day of admission she was noted to be hypoxic by home health, with a pulse ox in the 70's, and was sent to the ED for further evaluation. Work-up in the ED was significant for a mild leukocytosis, mildly worsening renal function, and an elevated BNP unchanged from her prior hospitalization (During which time she was treated for an acute CHF exacerbation). Despite her worsening renal function a CT of the chest with contrast was obtained and showed bibasilar atelctasis vs. a right basilar infiltrate, with a smal to moderate left sided pleural effusion, with no evidence for a Pulmonary Embolism. The patient was referred for admission for further evaluation and treatment. This morning Mrs. Griggs appears vastly improved in her symptoms, no longer requiring oxygen either at rest or with ambulation. She also states that she is no longer nauseous. Her Lasix drip was turned off early in the morning, and she was changed back to oral dosing. She also reports that her constipation is resolved. She was initiated on antibiotic therapy for an abnormal urinalysis, with Culture results showing growth of E.Coli. No overnight events reported. Remains afebrile. Exam Narrative Exam Narrative: General: Patient appears comfortable, AAOX3, NAD Neck: Supple CV: Regular, nontachycardic, S1S2, No rubs, murmurs, or gallops. Pulmonary: Bibasilar crackles vastly improved and nearly resolved, improved air entry Abdomen: + Bowel Sounds, soft, nontender, nondistended Vascular: No further b/l lower extremity edema Psych: Normal mood and affect. Objective Objective Clinical Data: Abnormal lab results 03/05/19 03/07/19 03/07/19 Range/Units 09:55 06:35 06:35 RBC 3.92 L (4.00-5.20) m/cumm Hgb 10.3 L (12.0-15.5) g/dL Hct 35.0 L (36.0-46.0) % MCH 26.3 L (27.0-33.0) pg MCHC 29.4 L (32.0-36.0) g/dL RDW 16.8 H (11.7-14.6) % Plt Count 451 H (130-400) x1000/uL Absolute Monocytes 1.04 H (0.11-0.7) k/cumm Absolute Eosinophils 0.93 H (0.0-0.7) k/cumm Carbon Dioxide 34.2 H (21.0-32.0) mmol/L BUN 34 H (7-18) mg/dL Creatinine 1.72 H (0.55-1.02) mg/dL Glucose 166 H (70-100) mg/dL NT-Pro-B Natriuret Pep 935 H ( - 299) pg/mL Urine Blood Trace-intact H (Negative) Urine Nitrite Positive H (Negative) Ur Leukocyte Esterase Moderate H (Negative) Urine RBC 5-10 H (0-2) Vital Signs Temperature 37.4 C 03/07/19 08:25 Temperature Source Temporal Artery Scan 03/07/19 08:25 Pulse 75 03/07/19 08:32 Pulse Rhythm Regular 03/07/19 08:30 Pulse 77 03/07/19 08:32 Respiratory Rate 18 03/07/19 08:32 Respiratory Effort 03/07/19 08:30 Respiratory Depth Normal 03/07/19 08:30 Respiratory Pattern Normal 03/07/19 08:30 Blood Pressure 103/57 L 03/07/19 08:32 Blood Pressure Mean 68 03/07/19 08:32 Blood Pressure Position Supine 03/03/19 18:36 Pulse Oximetry 92 L 03/07/19 08:30 Oxygen Delivery Method Room Air 03/07/19 08:30 Oxygen Flow Rate 0 03/07/19 08:30 Pain Level 0 03/05/19 16:18 Comment 03/05/19 09:58 Intake & Output 03/06/19 03/07/19 03/07/19 23:59 11:59 23:59 Intake Total 1286.625 / 1774.125 513.959 / 513.959 Output Total 1075 / 2550 1025 / 1025 Balance 211.625 / -775.875 -511.041 / -511.041 Weight 117.6 kg Intake: IV 86.625 / 94.125 33.959 / 33.959 Oral 1200 / 1680 480 / 480 Output: Urine 1075 / 2550 1025 / 1025 Other: Urine Color Yellow Yellow Urine Appearance Clear Clear Comment Lasix drip cont at 2.5 with U/O 1936 to 2200 375cc = 150cc/hr. Md's goal is U/O > 100cc/hr. Lasix drip cont at 2.5 w/ U/O 0400 to 0600 225cc= 112cc.hr. Md's goal of >100cc/hr Stool Size Large Large Stool Characteristics Brown Brown Laboratory Results WBC 9.44 k/cumm (4.4-10.8) 03/07/19 06:35 RBC 3.92 m/cumm (4.00-5.20) L 03/07/19 06:35 Hgb 10.3 g/dL (12.0-15.5) L 03/07/19 06:35 Hct 35.0 % (36.0-46.0) L 03/07/19 06:35 MCV 89.3 fL (80-95) 03/07/19 06:35 MCH 26.3 pg (27.0-33.0) L 03/07/19 06:35 MCHC 29.4 g/dL (32.0-36.0) L 03/07/19 06:35 RDW 16.8 % (11.7-14.6) H 03/07/19 06:35 Plt Count 451 x1000/uL (130-400) H 03/07/19 06:35 MPV 9.9 fL (8.0-11.0) 03/07/19 06:35 Immature Gran % 0.7 03/07/19 06:35 Neutrophils % 53.7 03/07/19 06:35 Lymphocytes % 23.4 03/07/19 06:35 Monocytes % 11.0 03/07/19 06:35 Eosinophils % 9.9 03/07/19 06:35 Basophils % 1.3 03/07/19 06:35 Absolute Neutrophils 5.07 k/cumm (1.2-6.7) 03/07/19 06:35 Absolute Lymphocytes 2.21 k/cumm (1.2-3.4) 03/07/19 06:35 Absolute Monocytes 1.04 k/cumm (0.11-0.7) H 03/07/19 06:35 Absolute Eosinophils 0.93 k/cumm (0.0-0.7) H 03/07/19 06:35 Absolute Basophils 0.12 k/cumm (0.0-0.2) 03/07/19 06:35 Sodium 142 mmol/L (136-145) 03/07/19 06:35 Potassium 4.3 mmol/L (3.5-5.1) 03/07/19 06:35 Chloride 101 mmol/L (98-107) 03/07/19 06:35 Carbon Dioxide 34.2 mmol/L (21.0-32.0) H 03/07/19 06:35 Anion Gap 6.8 mmol/L (3-11) 03/07/19 06:35 BUN 34 mg/dL (7-18) H 03/07/19 06:35 Creatinine 1.72 mg/dL (0.55-1.02) H 03/07/19 06:35 Estimated GFR/1.73 m2 29.67 (mL/min/1.73m2) 03/07/19 06:35 Glucose 166 mg/dL (70-100) H 03/07/19 06:35 Calcium 9.5 mg/dL (8.5-10.1) 03/07/19 06:35 Magnesium 2.4 mg/dL (1.8-2.4) 03/07/19 06:35 Total Bilirubin 0.4 mg/dL (0.2-1.0) 03/03/19 13:20 AST 11 U/L (15-37) L 03/03/19 13:20 ALT 23 U/L (12-78) 03/03/19 13:20 Alkaline Phosphatase 97 U/L (46-116) 03/03/19 13:20 Troponin I < 0.05 ng/mL (0.00-0.06) 03/04/19 06:21 NT-Pro-B Natriuret Pep 935 pg/mL (-299) H 03/07/19 06:35 Total Protein 7.3 g/dL (6.4-8.2) 03/03/19 13:20 Albumin 3.1 g/dL (3.4-5.0) L 03/03/19 13:20 Urine Color Yellow (Yellow) 03/05/19 09:55 Urine Clarity Sl cloudy (Clear) 03/05/19 09:55 Urine pH 5.5 (5-8) 03/05/19 09:55 Ur Specific [place] 1.010 (1.005-1.025) 03/05/19 09:55 Urine Protein Negative mg/dL (Negative) 03/05/19 09:55 Urine Ketones Negative mg/dL (Negative) 03/05/19 09:55 Urine Blood Trace-intact (Negative) H 03/05/19 09:55 Urine Nitrite Positive (Negative) H 03/05/19 09:55 Urine Bilirubin Negative (Negative) 03/05/19 09:55 Urine Urobilinogen 0.2 EU/dL (Up TO 0.2) 03/05/19 09:55 Ur Leukocyte Esterase Moderate (Negative) H 03/05/19 09:55 Urine RBC 5-10 (0-2) H 03/05/19 09:55 Urine WBC >50 HPF (0-5) 03/05/19 09:55 Ur Epithelial Cells Few HPF (Negative) 03/05/19 09:55 Urine Crystals Negative HPF (Negative) 03/05/19 09:55 Urine Bacteria Many HPF (Negative) 03/05/19 09:55 Urine Casts Negative LPF (Negative) 03/05/19 09:55 Urine Mucus Negative (Negative) 03/05/19 09:55 Urine Other (Negative) 03/05/19 09:55 Ur Culture Indicated? Yes 03/05/19 09:55 Urine Glucose Negative mg/dL (Negative) 03/05/19 09:55
--- NOTE | 2019-03-07 14:05 | PGE_ITS ---
Date of Service Date of service: 03/07/19 Time of Service: 13:54 Assessment and Plan (1) Hypoxia: Current visit: Yes Status: Acute Potentially on the basis of CHF. - PE ruled out with CT. - Patient treated for acute CHF exacerbation - had an elevated BNP similiar in value to last hospitalization when she was treated for CHF exacerbation. Has diuresed well with lasix gtt and reports feeling better, with a significant drop in BNP from 5000's to 1500 yesterday morning, now at 935. Renal function with minimal worsening of creatinine. Continue diuresis, but change back to oral lasi x. - Patient also with a history of COPD, but appears quiescent with no wheezing. Continue to monitor. - Consider aspiration pneumonia in setting of illness at home with nausea and vomiting. However, patient's mild leukocytosis has resolved and she remains afebrile, previously off antibiotic therapy - she has also undergone 2 recent courses of broad spectrum antibiotic therapy for Pneumonia. Monitor symptoms closely, but continue to hold off antibiotic therapy for pulmonary infection at this time (initiated on Abx for UTI). (2) Acute diastolic CHF (congestive heart failure): Current visit: No Status: Chronic Evidence of Diastolic Dysfunction by ECHO 01/2018, with intact LVEF. Initially with elevated BNP that was unchanged from last hospitalization, when patient was also treated for an acute exacerbation of her underlying diastolic CHF. Has diuresed, feels vastly improved subjectively, and with drop in BNP 5050 --> 935, and no longer requiring oxygen at rest or with ambulation. Discontinue lasix gtt and change back to oral formulation. Dry weight appears to be 117-119 Kg. Discontinue Flynn Catheter. Appears net negative approximately 4-5L. (3) UTI (urinary tract infection): Current visit: Yes Status: Acute Ceftriaxone #3, with Urine Cultures showing E.Coli. (4) Constipation: Current visit: Yes Status: Acute Reported bowel movement with bowel regimen. (5) CKD (chronic kidney disease) stage 3, GFR 30-59 ml/min: Current visit: No Status: Chronic Mild ZACHARY superimposed on CKD, appeared resolved, now mildly wose following continued diuresis. Will change to PO lasix, and continue to monitor renal function and electrolytes carefully. Renally dose medications when needed, and avoid nephrotoxins. (6) CAD (coronary artery disease): Current visit: No Status: Chronic S/p CABG in December - serial cardiac biomarkers negative. Continue BB, ASA, high potency statin. Currently asymptomatic. (7) Diabetes mellitus: Current visit: No Status: Chronic Continue sliding scale coverage. Also on Glipizide, QHS Liraglutide. Qualifiers: Diabetes mellitus type: type 2 Diabetes mellitus prison insulin use: without terminal operations manager use Diabetes mellitus complication status: with kidney complications Diabetes mellitus complication detail: with chronic kidney disease (8) Hyperlipidemia: Current visit: No Status: Chronic On high potency statin. (9) Atrial fibrillation: Current visit: No Status: Chronic Remaining in sinus. Continue BB. No AC as patient is s/p PINEDA excision at time of CABG. (10) DVT prophylaxis: Current visit: Yes Status: Acute SC Heparin. Also on PPI therapy for GI prophylaxis. (11) Advance directive on file: Current visit: Yes Status: Acute Full Code. Subjective Interval history since last seen: 68 year old woman with a history of recent hospitalizations and treatment for Pneumonia, admitted 03/03 from [facility] Emergency Department with a diagnosis of Hypoxia. Mrs. Griggs has a Past Medical History significant for CKD, Obesity, DM, COPD, depression, gout, RLS, and spinal stenosis. She also had known CAD, s/p 3 vessel CABG [place] [facility] [place] following an NSTEMI. She also has a prior history of PAF, for which she underwent excision of her Left Atrial Appendage at the time of her CABG, and now remains off anticoagulation. Following her surgery the patient was discharged to [facility], prior to being admitted at [facility] with a diagnosis of Healthcare Aquired Pneumonia between 01/15 and 01/22/2019, then readmitted in late January with recurrent pneumonia, Atrial Flutter, and CHF. She was discharged in stable condition. The patient reports symptoms of generalized malaise, with onset of nausea, fatigue, and weakness a few days prior to her admission. On the day of admission she was noted to be hypoxic by home health, with a pulse ox in the 70's, and was sent to the ED for further evaluation. Work-up in the ED was significant for a mild leukocytosis, mildly worsening renal function, and an elevated BNP unchanged from her prior hospitalization (During which time she was treated for an acute CHF exacerbation). Despite her worsening renal function a CT of the chest with contrast was obtained and showed bibasilar atelctasis vs. a right basilar infiltrate, with a smal to moderate left sided pleural effusion, with no evid ence for a Pulmonary Embolism. The patient was referred for admission for further evaluation and treatment. This morning Mrs. Griggs appears vastly improved in her symptoms, no longer requiring oxygen either at rest or with ambulation. She also states that she is no longer nauseous. Her Lasix drip was turned off early in the morning, and she was changed back to oral dosing. She also reports that her constipation is resolved. She was initiated on antibiotic therapy for an abnormal urinalysis, with Culture results showing growth of E.Coli. No overnight events reported. Remains afebrile. Exam Narrative Exam Narrative: General: Patient appears comfortable, AAOX3, NAD Neck: Supple CV: Regular, nontachycardic, S1S2, No rubs, murmurs, or gallops. Pulmonary: Bibasilar crackles vastly improved and nearly resolved, improved air entry Abdomen: + Bowel Sounds, soft, nontender, nondistended Vascular: No further b/l lower extremity edema Psych: Normal mood and affect. Objective Objective Clinical Data: Abnormal lab results 03/05/19 03/07/19 03/07/19 Range/Units 09:55 06:35 06:35 RBC 3.92 L (4.00-5.20) m/cumm Hgb 10.3 L (12.0-15.5) g/dL Hct 35.0 L (36.0-46.0) % MCH 26.3 L (27.0-33.0) pg MCHC 29.4 L (32.0-36.0) g/dL RDW 16.8 H (11.7-14.6) % Plt Count 451 H (130-400) x1000/uL Absolute Monocytes 1.04 H (0.11-0.7) k/cumm Absolute Eosinophils 0.93 H (0.0-0.7) k/cumm Carbon Dioxide 34.2 H (21.0-32.0) mmol/L BUN 34 H (7-18) mg/dL Creatinine 1.72 H (0.55-1.02) mg/dL Glucose 166 H (70-100) mg/dL NT-Pro-B Natriuret Pep 935 H ( - 299) pg/mL Urine Blood Trace-intact H (Negative) Urine Nitrite Positive H (Negative) Ur Leukocyte Esterase Moderate H (Negative) Urine RBC 5-10 H (0-2) Vital Signs Temperature 37.4 C 03/07/19 08:25 Temperature Source Temporal Artery Scan 03/07/19 08:25 Pulse 75 03/07/19 08:32 Pulse Rhythm Regular 03/07/19 08:30 Pulse 77 03/07/19 08:32 Respiratory Rate 18 03/07/19 08:32 Respiratory Effort 03/07/19 08:30 Respiratory Depth Normal 03/07/19 08:30 Respiratory Pattern Normal 03/07/19 08:30 Blood Pressure 103/57 L 03/07/19 08:32 Blood Pressure Mean 68 03/07/19 08:32 Blood Pressure Position Supine 03/03/19 18:36 Pulse Oximetry 92 L 03/07/19 08:30 Oxygen Delivery Method Room Air 03/07/19 08:30 Oxygen Flow Rate 0 03/07/19 08:30 Pain Level 0 03/05/19 16:18 Comment 03/05/19 09:58 Intake & Output 03/06/19 03/07/19 03/07/19 23:59 11:59 23:59 Intake Total 1286.625 / 1774.125 513.959 / 513.959 Output Total 1075 / 2550 1025 / 1025 Balance 211.625 / -775.875 -511.041 / -511.041 Weight 117.6 kg Intake: IV 86.625 / 94.125 33.959 / 33.959 Oral 1200 / 1680 480 / 480 Output: Urine 1075 / 2550 1025 / 1025 Other: Urine Color Yellow Yellow Urine Appearance Clear Clear Comment Lasix drip cont at 2.5 with U/O 1936 to 2200 375cc = 150cc/hr. Md's goal is U/O > 100cc/hr. Lasix drip cont at 2.5 w/ U/O 0400 to 0600 225cc= 112 cc.hr. Md's goal of >100cc/hr Stool Size Large Large Stool Characteristics [facility] Laboratory Results WBC 9.44 k/cumm (4.4-10.8) 03/07/19 06:35 RBC 3.92 m/cumm (4.00-5.20) L 03/07/19 06:35 Hgb 10.3 g/dL (12.0-15.5) L 03/07/19 06:35 Hct 35.0 % (36.0-46.0) L 03/07/19 06:35 MCV 89.3 fL (80-95) 03/07/19 06:35 MCH 26.3 pg (27.0-33.0) L 03/07/19 06:35 MCHC 29.4 g/dL (32.0-36.0) L 03/07/19 06:35 RDW 16.8 % (11.7-14.6) H 03/07/19 06:35 Plt Count 451 x1000/uL (130-400) H 03/07/19 06:35 MPV 9.9 fL (8.0-11.0) 03/07/19 06:35 Immature Gran % 0.7 03/07/19 06:35 Neutrophils % 53.7 03/07/19 06:35 Lymphocytes % 23.4 03/07/19 06:35 Monocytes % 11.0 03/07/19 06:35 Eosinophils % 9.9 03/07/19 06:35 Basophils % 1.3 03/07/19 06:35 Absolute Neutrophils 5.07 k/cumm (1.2-6.7) 03/07/19 06:35 Absolute Lymphocytes 2.21 k/cumm (1.2-3.4) 03/07/19 06:35 Absolute Monocytes 1.04 k/cumm (0.11-0.7) H 03/07/19 06:35 Absolute Eosinophils 0.93 k/cumm (0.0-0.7) H 03/07/19 06:35 Absolute Basophils 0.12 k/cumm (0.0-0.2) 03/07/19 06:35 Sodium 142 mmol/L (136-145) 03/07/19 06:35 Potassium 4.3 mmol/L (3.5-5.1) 03/07/19 06:35 Chloride 101 mmol/L (98-107) 03/07/19 06:35 Carbon Dioxide 34.2 mmol/L (21.0-32.0) H 03/07/19 06:35 Anion Gap 6.8 mmol/L (3-11) 03/07/19 06:35 BUN 34 mg/dL (7-18) H 03/07/19 06:35 Creatinine 1.72 mg/dL (0.55-1.02) H 03/07/19 06:35 Estimated GFR/1.73 m2 29.67 (mL/min/1.73m2) 03/07/19 06:35 Glucose 166 mg/dL (70-100) H 03/07/19 06:35 Calcium 9.5 mg/dL (8.5-10.1) 03/07/19 06:35 Magnesium 2.4 mg/dL (1.8-2.4) 03/07/19 06:35 Total Bilirubin 0.4 mg/dL (0.2-1.0) 03/03/19 13:20 AST 11 U/L (15-37) L 03/03/19 13:20 ALT 23 U/L (12-78) 03/03/19 13:20 Alkaline Phosphatase 97 U/L (46-116) 03/03/19 13:20 Troponin I < 0.05 ng/mL (0.00-0.06) 03/04/19 06:21 NT-Pro-B Natriuret Pep 935 pg/mL (-299) H 03/07/19 06:35 Total Protein 7.3 g/dL (6.4-8.2) 03/03/19 13:20 Albumin 3.1 g/dL (3.4-5.0) L 03/03/19 13:20 Urine Color Yellow (Yellow) 03/05/19 09:55 Urine Clarity Sl cloudy (Clear) 03/05/19 09:55 Urine pH 5.5 (5-8) 03/05/19 09:55 Ur Specific [place] 1.010 (1.005-1.025) 03/05/19 09:55 Urine Protein Negative mg/dL (Negative) 03/05/19 09:55 Urine Ketones Negative mg/dL (Negative) 03/05/19 09:55 Urine Blood Trace-intact (Negative) H 03/05/19 09:55 Urine Nitrite Positive (Negative) H 03/05/19 09:55 Urine Bilirubin Negative (Negative) 03/05/19 09:55 Urine Urobilinogen 0.2 EU/dL (Up TO 0.2) 03/05/19 09:55 Ur Leukocyte Esterase Moderate (Negative) H 03/05/19 09:55 Urine RBC 5-10 (0-2) H 03/05/19 09:55 Urine WBC >50 HPF (0-5) 03/05/19 09:55 Ur Epithelial Cells Few HPF (Negative) 03/05/19 09:55 Urine Crystals Negative HPF (Negative) 03/05/19 09:55 Urine Bacteria Many HPF (Negative) 03/05/19 09:55 Urine Casts Negative LPF (Negative) 03/05/19 09:55 Urine Mucus Negative (Negative) 03/05/19 09:55 Urine Other (Negative) 03/05/19 09:55 Ur Culture Indicated? Yes 03/05/19 09:55 Urine Glucose Negative mg/dL (Negative) 03/05/19 09:55
[2019-03-07] MEDS: cefTRIAXone 1 GM/50 ML BAG IVPB (14:10)
[2019-03-07] MEDS: Normal Saline 500 ML IV (14:10)
[2019-03-07] MEDS: Normal Saline Flush 10 ML SYR IVP (14:11)
--- NOTE | 2019-03-07 15:56 | PT.INTREAT ---
Date of service: 03/07/19 Time of Service: 15:57 PT Notes Inpatient Physical Therapy Treatment Note [facility] Date: 03/07/19 PRECAUTIONS: Fall SUBJECTIVE: Ann-Marie states that she is feeling really good today. She is agreeable to participating in PT, and hopes that she will be discharged tomorrow. OBJECTIVE: PAIN: No c/o pain BED MOBILITY/TRANSFERS Sit-stand: S Stand-sit: S GAIT Assistive Device: FWW Weight bearing: Full Assist: S Distance: 400' Deviation: No SOB ASSESSMENT: Patient tolerated session well without complaint. She was able to tolerate a progression in gait distance with FWW support and supervision. She demonstrates appropriate pacing and energy conservation techniques to avoid becoming SOB with activity. PLAN: Continue with PT's POC TREATMENT CODE/TIME: 20 minutes; [id number]
[2019-03-07] MEDS: Furosemide 20 MG TAB PO (16:12)
--- NOTE | 2019-03-07 16:30 | IN_ITS ---
Date of service: 03/07/19 Time of Service: 09:21 PT Notes Inpatient Physical Therapy Evaluation Date: 03/07/2019 Referring Doctor: Oswald Cornell MD PT Orders: PT CONSULT: Deconditioning Precautions: Fall. Standard. Activity as tolerated Patient Profile/Admitting Diagnosis: Patient is a 68-year-old female with past medical history significant for CABG x 3 on 01/03/2019, coronary artery disease, atrial fibrillation, diabetes mellitus, and pulmonary hypertension who presented to the ED on 03/03/2019 with chief complaints of hypoxia, generalized weakness, dizziness, and shortness of breath for the past 3 days prior to admission. Patient was diagnosed with hypoxia and acute diastolic congestive heart failure associated with bibasilar atelectasis with small left pleural effusion. Referral for physical therapy was received for functional mobility training, BLE strengthening, and therapeutic activity to maximize activity tolerance in anticipation of going home with daughter upon discharge. PMHX: Medical History Atrial flutter with rapid ventricular response (Chronic) Pulmonary hypertension (Chronic) Acute diastolic CHF (congestive heart failure) (Chronic) CAD (coronary artery disease) (Chronic) HCAP (healthcare-associated pneumonia) (Resolved) Anemia (Chronic) Tarsal tunnel syndrome (Chronic 06/11/13) CKD (chronic kidney disease) stage 3, GFR 30-59 ml/min (Chronic) Shingles (Resolved) Hip pain, left (Chronic) Hip pain, right (Chronic) Lump in neck (Chronic) Diabetes mellitus (Chronic) Hyperlipidemia (Chronic 08/10/00) Gout (Chronic 07/06/11) Spinal stenosis of lumbar region (Chronic 02/15/16) Restless legs (Chronic) Paroxysmal atrial fibrillation (Chronic 03/01/16) 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) Chronic obstructive lung disease (Chronic) Atrial fibrillation (Chronic) Restless leg syndrome (Chronic) Essential hypertension (Chronic) Hyperlipidemia (Chronic) History of coronary artery disease (Chronic) Abnormal mammography (Resolved) Ankle pain (Resolved 03/13/14) Carpal tunnel syndrome (Resolved 08/10/06) Cervical disc disorder with myelopathy (Resolved 08/21/08) Chest pain (Resolved) Diabetes mellitus (Resolved) Folate deficiency (Resolved 02/15/16) Gram-positive bacteremia (Resolved) HAP (hospital-acquired pneumonia) (Resolved 01/15/19) Hepatomegaly (Resolved) Hip joint inflamed (Resolved 09/03/15) Low back pain (Resolved 04/10/03) Menopausal syndrome (Resolved) Muscle fatigue (Resolved) Posterior tibial tendon dysfunction (Resolved) Postmenopausal bleeding (Resolved) Postoperative wound dehiscence (Resolved 12/23/15) Primary osteoarthritis of left hip (Resolved 09/17/15) Renal impairment (Resolved 07/11/03) Rotator cuff syndrome (Resolved 08/01/09) Smoker (Resolved 06/30/16) Tarsal tunnel syndrome (Resolved) Trochanteric bursitis (Resolved) Upper respiratory tract infection (Resolved 08/03/15) Vitamin D deficiency (Resolved) Atrial flutter (Inactive) Atrial fibrillation Carpal tunnel syndrome Cervical spondylosis with myelopathy Gout Hypertension Spinal stenosis of lumbar region at multiple levels Vitamin D deficiency Surgical History S/P CABG (coronary artery bypass graft) (Chronic 01/03/19) H/O Spinal surgery (Resolved) H/O arthrodesis (Resolved) History of bilateral tubal ligation (Resolved) History of gynecologic surgery (Resolved) History of hip surgery (Resolved) History of orthopedic surgery (Resolved) S/P carpal tunnel release (Resolved) S/P cholecystectomy (Resolved) S/P rotator cuff repair (Resolved) Status post incision and drainage (Resolved) Arthrodesis Cholecystectomy (07/31/13) Endometrial Biopsy Left eye surgery Ligation of fallopian tube (~1980) Open Carpal Tunnel release Right wrist surgery Rotator Cuff Repair (~1980) SPINE SURGERY Total replacement of hip cervical repair (~10/2008) tarsal tunnel release (~1997) Social History/Home Situation: Ann-Marie was discharged to her daughter's house with [facility] after most recent hospitalization for treatment of hospital acquired Pneumonia. She was independent with all aspects of ADLs without the need for use of assistive ambulatory device nor an adaptive equipment. She states that the daughter has a ramp to enter the house with rails on both sides. She reports that her daughter has a tub/shower with grab bars. She has recently applied for disability. She cared for her spouse at home who had Alzheimer'sand who recently . Equipment Owned/DME: 2-FWW, 2-shower chairs, 2-canes, grab bars, sock aid, shoe horns Subjective: Patient is pleasant and cooperative. She is agreeable to PT consult and treatment today. She plans on going home to daughter's house as soon as she is safe to do so again and in hopes to be able to travel to [place] to attend a relative's graduation ceremonies. She denies any dizziness, chest pain, nor headache throughout this session. Objective: General Observation: Patient seen sitting on chair. Median sternotomy incision well-healed. Telemetry monitors on. Mental Status: Alert and oriented x4 Pain: 0/10 ROM: Right Upper Extremity: Shoulder Flexion WFL. Shoulder abduction WFL. Elbow flexion WFL. Wrist flexion WFL. Functional opening and closing of hand WFL. Left Upper Extremity: Shoulder Flexion WFL. Shoulder abduction WFL. Elbow flexion WFL. Wrist flexion WFL. Functional opening and closing of hand WFL. WFL. Ankle dorsiflexion WFL. Ankle plantarflexion WFL. Right Lower Extremity: Hip flexion 0-110 wth range limited by abdominal panniculus. Hip abduction WFL. Knee flexion WFL. Ankle dorsiflexion WFL. Ankle plantarflexion WFL. Left Lower Extremity: Hip flexion 0-110 with range limited by abdominal panniculus. Hip abduction WFL. Knee flexion WFL. Ankle dorsiflexion WFL. Ankle plantarflexion WFL. Strength: Right Upper Extremity: Shoulder muscles not tested as median sternotomy precautions are still in effect with CABG x 3 done on 01/03/2019. Elbow flexors 5/5. Elbow extensors 5/5. Road Roller Operator strong. Left Upper Extremity: Shoulder muscles not tested as median sternotomy precautions are still in effect with CABG x 3 done on 01/03/2019. Elbow flexors 5/5. Elbow extensors 5/5. Road Roller Operator strong. Right Lower Extremity: Hip flexors 3-/5. Hip abductors 4-/5. Knee flexors 4-/5. Knee extensors 5/5. Ankle dorsiflexors 5/5. Ankle plantarflexors 5/5. Left Lower Extremity:Hip flexors 3-/5. Hip abductors 4/5. Knee flexors 4+/5. Knee extensors 4+/5. Ankle dorsiflexors 5/5. Ankle plantarflexors 5/5. Sensation: Intact as to pain and pressure to BLEs Bed Mobility/Transfers: Rolling independent Supine to sit independent with head of bed between 30 to 45 degrees Sit to supine SBA Sit to stand SBA Stand to sit SBA Bed to chair SBA Chair to bed SBA Gait: Patient tolerated 150 feet using FWW and minimal cueing for energy conservation and overall safety; patient required SBA and SBA of another for IV pole management. Balance: Static Sitting: Good Dynamic Sitting: Good Static Standing: Good Dynamic Standing: Fair Special Tests: Mobility Limitations Standardized Measure [facility] AM-PAC 6 clicks Basic Mobility Inpatient Short Form: Raw Score: 19 CMS Score: 42% derficit Informed Consent/Education: Patient instructed in purpose of PT consult and plan of care. Median sternotomy precautions were also reviewed with patient during bed mobility and transfer task performance. Assessment: Patient is a 68- year-old female referred to physical therapy services with the diagnosis of hypoxia and acute diastolic congestive heart failure associated with bibasilar atelectasis with small left pleural effusion. Patient presents with clinical signs and symptoms consistent with current/admitting diagnoses that have resulted to mobility limitations, gait instability, generalized weakness, and impairment of motor control as demonstrated by the following impairment level findings: 1. Decreased strength to B LE major muscle groups 2. Impaired sitting/standing balance 3. Impaired activity tolerance Impairments are contributing to the following functional limitations: 1. Increased completion time for mobility ADL performance, needs frequent rests 2. Fall risk 3. Inability to negotiate ramps without assistance Patient is assessed as a Moderate 43992 limitations of complexity based on the following: History: 68-year-old female with diagnosis with HCAP, Gram + Bacteremia, and Atrial Flutter Examination: Underlying impairments and functional limitations Presentation: Evolving Decision Makin moderate complexity Goals: Goals X1 week 1. Supine-Sit independent 2. Sit-Supine independent 3. Sit-Stand independent 4. Stand-Sit independent 5. Bed-Chair independent 6. Chair-Bed independent 7. Independent gait on level surface without use of assistive ambulatory device for at least 200 feet without report of chest pain nor dyspnea 8. Independent with home exercise program 9. Good dynamic standing balance/tolerance 10. Patient will perform 2-minute walk test without AD of at least 100 feet without report of chest pain nor dyspnea Plan of Care/Treatment Plan: 1-2x/day, 7 days/week x 1 week. Plan of care has been reviewed with the GETTERER providing the service under Physical Therapy direction. Initiate Physical Therapy intervention for strengthening, bed mobility, transfers, gait, stairs, balance training, use of assistive device. DISCHARGE RECOMMENDATIONS: Patient will benefit from resumption of home health physical therapy services in order to prepare patient for phase 2 outpatient cardiac rehab program, reduce fall risk, maximize functional mobility level, and to assess home safety at daughter's house. TREATMENT CODE/TIME: 83965 for 20 minutes, 85213 for 12 minutes beginning at 9:21 AM. Thank you for this referral. Kathryn Sainz, PT, DPT, CLT [facility] Patient Profile/Admitting Diagnosis: [] PMHX: [] Social History/Home Situation: [] Current Functional Limitations: [] Equipment Owned/DME: [] Subjective: [] Objective: [] General Observation: [] Mental Status: [] Pain: [] Vital Signs: [] ROM: Right Upper Extremity: [] Left Upper Extremity: [] Right Lower Extremity: [] Left Lower Extremity: [] Strength: Right Upper Extremity: [] Left Upper Extremity: [] Right Lower Extremity: [] Left Lower Extremity: [] Sensation: [] Bed Mobility/Transfers: [] Gait: [] Balance: [] Static Sitting: [] Dynamic Sitting: [] Static Standing: [] Dynamic Standing: [] Special Tests: Mobility Limitations Standardized Measure [facility] AM-PAC 6 clicks Basic Mobility Inpatient Short Form: Raw Score: [] Standardized Score: [] CMS Score: [] CMS Modifier: [] Informed Consent/Education: Patient instructed in purpose of PT consult and plan of care. Assessment: Patient is a [] year old [] referred to physical therapy services with the diagnosis of []. Patient presents with clinical signs and symptoms consistent with [], as demonstrated by the following impairment level findings: []. Impairments are contributing to the following functional limitations: AMPAC score. Patient is assessed as a [] Low 52691 [] Moderate 74963 [] High 76915 complexity based on the following: History: [] Examination: [] Presentation: [] Decision Making: [] Goals: Goals X1 week 1. Supine-Sit [] 2. Sit-Supine [] 3. Sit-Stand [] 4. Stand-Sit [] 5. Bed-Chair [] 6. Chair-Bed [] 7. Gait [] 8. Stairs [] 9. Independent with home exercise program [] 10. Balance [] Plan of Care/Treatment Plan: 1-2x/day, 7 days/week x 1 week. Plan of care has been reviewed with the GETTERER providing the service under Physical Therapy direction. Initiate Physical Therapy intervention for strengthening, bed mobility, transfers, gait, stairs, balance training, use of assistive device. DISCHARGE RECOMMENDATIONS: [] TREATMENT CODE/TIME: []
[2019-03-07] MEDS: rOPINIRole 0.5 MG TAB 2 MG PO (19:52)
[2019-03-07] MEDS: Atorvastatin 40 MG TAB PO (22:30)
[2019-03-07] MEDS: Senna TAB 2 TAB PO (22:37)
[2019-03-08] VITALS (13 sets, daily range): BP systolic 97–131; BP diastolic 50–72; PULSE 69–91; RESP 16–23; O2SAT 94
[2019-03-08] MEDS: Heparin 5,000 UNITS/ML VIAL 5000 UNITS SC (05:24)
[2019-03-08 05:56] LABS: Anion Gap 7.3 mmol/L (3-11); BUN 36 mg/dL (7-18); CO2 33.7 mmol/L (21.0-32.0); CREATININE 1.73 mg/dL (0.55-1.02); Calcium 9.6 mg/dL (8.5-10.1); Chloride 100 mmol/L (98-107); Estimated GFR 29.47 (mL/min/1.73m2); Glucose 153 mg/dL (70-100); Magnesium 2.6 mg/dL (1.8-2.4); Potassium 4.3 mmol/L (3.5-5.1); Sodium 141 mmol/L (136-145)
[2019-03-08 05:59] LABS: Abs Immature Grans 0.07 k/cumm (0.0-0.09); Absolute Basophil Count 0.06 k/cumm (0.0-0.2); Absolute Eosinophil Count 1.23 k/cumm (0.0-0.7); Absolute Lymphocyte Count 2.22 k/cumm (1.2-3.4); Absolute Monocyte Count 0.95 k/cumm (0.11-0.7); Absolute Neutrophil Count 5.45 k/cumm (1.2-6.7); Basophils % 0.6; Eosinophils % 12.3; HCT 36.6 % (36.0-46.0); HGB 10.8 g/dL (12.0-15.5); Immature Grans % 0.7; Lymphocytes % 22.2; Mean Corp. HGB Concentration 29.5 g/dL (32.0-36.0); Mean Corpuscular Hemoglobin 26.3 pg (27.0-33.0); Mean Corpuscular Volume 89.3 fL (80-95); Monocytes % 9.5; Neutrophils % 54.7; RBC Distribution Width 16.7 % (11.7-14.6); White Blood Cell Count 9.98 k/cumm (4.4-10.8)
[2019-03-08 06:36] LABS: Anisocytosis 1+; Diff Comment Agrees w/ Instrument; Hypochromasia 1+; Platelet Count 462 x1000/uL (130-400)
[2019-03-08 06:37] LABS: Basophilic Stippling Present; Polychromasia Present
[2019-03-08] MEDS: Insulin Aspart 300 UNITS/3 ML PEN SC ×2 (09:22→12:02)
[2019-03-08] MEDS: Folic Acid 1 MG TAB PO (09:23)
[2019-03-08] MEDS: Omeprazole 20 MG CAPCR 40 MG PO (09:23)
[2019-03-08] MEDS: Calcium 600mg/Vit D 200U TAB 2 TAB PO (09:23)
[2019-03-08] MEDS: Docusate Sodium 100 MG CAP PO (09:24)
[2019-03-08] MEDS: dilTIAZem CD 120 MG CAPCR 240 MG PO (09:24)
[2019-03-08] MEDS: Furosemide 40 MG TAB PO (09:24)
[2019-03-08] MEDS: Cyanocobalamin 500 MCG TAB 1000 MCG PO (09:24)
[2019-03-08] MEDS: Metoprolol CR 50 MG TABCR 150 MG PO (09:24)
[2019-03-08] MEDS: Aspirin E.C. 81 MG TABEC PO (09:24)
[2019-03-08] MEDS: Gabapentin 600 MG TAB PO ×2 (09:24→14:11)
[2019-03-08] MEDS: Allopurinol 100 MG TAB PO (09:24)
[2019-03-08] MEDS: DULoxetine 30 MG CAP 60 MG PO (09:24)
--- NOTE | 2019-03-08 09:48 | PDOC.CMDIS ---
- If Service Date Differs Date of service: 03/08/19 Time of Service: 09:48 LACE Index Scoring Tool - Questions: Acuity (Admit via E.D.?): Yes Comorbidities: Previous M.I., Diabetes w/o Complication, Congestive Heart Failure E.D. Visits: 6 Care Management Discharge Reason for Hospitalization: Hypoxia Discharge Plan: Ann-Marie will be discharged home today with resumption of home health servcies PT, OT and Nursing she will begin cardiac rehab when ready. CM facilitated a referral to Nutrition for Megan to discuss restrictive diet related to CHF, and DM recomendations. Megan will be transported home by her daughter today via private car. CM to fax discharge summary [facility] [place] cardiac surgery for follow up on 03/19/19 Patient/Family Education Needs: Discharge education, limitations and follow up plan of care. CHF teaching provided Megan states she has a much better understanding of how to manage her symptoms and the improtance of daily weights. Megan's dry weight is about 257 pounds, this will be important for her as a reference when she is performing daily weights. CM reviewed with patient. Services Needed at Discharge: Home Health Care Services, Occupational Therapy, Physical Therapy
--- NOTE | 2019-03-08 09:53 | CMDISCH_ITS ---
- If Service Date Differs Date of service: 03/08/19 Time of Service: 09:48 LACE Index Scoring Tool - Questions: Acuity (Admit via E.D.?): Yes Comorbidities: Previous M.I., Diabetes w/o Complication, Congestive Heart Failure E.D. Visits: 6 Care Management Discharge Reason for Hospitalization: Hypoxia Discharge Plan: Ann-Marie will be discharged home today with resumption of home health servcies PT, OT and Nursing she will begin cardiac rehab when ready. CM facilitated a referral to Nutrition for Megan to discuss restrictive diet related to CHF, and DM recomendations. Megan will be transported home by her daughter today via private car. CM to fax discharge summary [facility] follow up on 03/19/19 Patient/Family Education Needs: Discharge education, limitations and follow up plan of care. CHF teaching provided Megan states she has a much better understanding of how to manage her symptoms and the improtance of daily weights. Megan's dry weight is about 257 pounds, this will be important for her as a reference when she is performing daily weights. CM reviewed with patient. Services Needed at Discharge: Home Health Care Services, Occupational Therapy, Physical Therapy
[2019-03-08] MEDS: Ergocalciferol 50000 UNITS CAP PO (10:04)
[2019-03-08] MEDS: Budesonide/Formoterol 160/4.5 6 GM 60 PUFF INH IH (10:04)
--- NOTE | 2019-03-08 10:44 | CHAPLAIN ---
I had a few minutes alone with Ann-Marie before her daughter arrived, and she talked about struggling with emotions around her 's recent . We talked about the wave of emotions she might feel, and how she might be caught off guard at times by sadness and grief. She said she experienced that a couple of nights ago when she found herself crying. She did say that she has good support in her family members and she is looking forward to a trip to [place] coming up in early March. Dr. Cornell came in to talk with Ann-Marie about her blood test results and let her know she could be discharged later today, after meeting with Renetta Naqvi about diet and diabetic care.
[2019-03-08] MEDS: cefTRIAXone 1 GM/50 ML BAG IVPB (14:11)
[2019-03-08] MEDS: Normal Saline Flush 10 ML SYR IVP (14:20)
--- NOTE | 2019-03-08 15:26 | W.PM.DS.N ---
Date of service: 03/08/19 Time of Service: 15:27 DS: Diagnosis Discharge Diagnosis (1) Hypoxia: Status: Acute (2) Acute diastolic CHF (congestive heart failure): Status: Chronic (3) UTI (urinary tract infection): Status: Acute (4) Constipation: Status: Acute (5) CKD (chronic kidney disease) stage 3, GFR 30-59 ml/min: Status: Chronic (6) CAD (coronary artery disease): Status: Chronic (7) Diabetes mellitus: Status: Chronic (8) Hyperlipidemia: Status: Chronic (9) Atrial fibrillation: Status: Chronic Discharge Plan Disposition Patient Disposition: HOME W/HOME HEALTH SERVICE Condition: Stable Discharge Details Reason For Visit: HYPOXIA Admit Date/Time: 03/03/19 16:32 Admit Provider: Oswald Cornell Attending Provider: Oswald Cornell Primary Care Provider: Laisha Mcmahon [facility] Hospital Course: Chief Complaint: Hypoxia HPI: 68 year old woman with a history of recent hospitalizations and treatment for Pneumonia, admitted 03/03 from [facility] Emergency Department with a diagnosis of Hypoxia. Mrs. Griggs has a Past Medical History significant for CKD, Obesity, DM, COPD, depression, gout, RLS, and spinal stenosis. She also had known CAD, s/p 3 [place] [facility] following an NSTEMI. She also has a prior history of PAF, for which she underwent excision of her Left Atrial Appendage at the time of her CABG, and now remains off anticoagulation. Following her surgery the patient was discharged to [facility], prior to being admitted at [facility] with a diagnosis of Healthcare Aquired Pneumonia between 01/15 and 01/22/2019, then readmitted in late January with recurrent pneumonia, Atrial Flutter, and CHF. She was discharged in stable condition. The patient reports symptoms of generalized malaise, with onset of nausea, fatigue, and weakness a few days prior to her admission. On the day of admission she was noted to be hypoxic by home health, with a pulse ox in the 70's, and was sent to the ED for further evaluation. Work-up in the ED was significant for a mild leukocytosis, mildly worsening renal function, and an elevated BNP unchanged from her prior hospitalization (During which time she was treated for an acute CHF exacerbation). Despite her worsening renal function a CT of the chest with contrast was obtained and showed bibasilar atelctasis vs. a right basilar infiltrate, with a smal to moderate left sided pleural effusion, with no evidence for a Pulmonary Embolism. The patient was referred for admission for further evaluation and treatment. This morning Mrs. Griggs appears vastly improved in her symptoms, no longer requiring oxygen either at rest or with ambulation. She has not had nausea during the course of her hospitalization. Her Lasix drip was turned off yesterday morning, and she was changed back to oral dosing. She also reports that her constipation is resolved. She was initiated on antibiotic therapy for an abnormal urinalysis, with Culture results showing growth of E.Coli. No overnight events reported. Remains afebrile. Hospital Course: (1) Hypoxia: Potentially on the basis of CHF. - PE ruled out with CT. - Patient treated for acute CHF exacerbation - had an elevated BNP similiar in value to last hospitalization when she was treated for CHF exacerbation. Has diuresed well with lasix gtt and reports feeling vastly improved, with a significant drop in BNP from 5000's to 935 yesterday morning. Renal function with minimal worsening of creatinine but has remained stable. Continue diuresis, but change back to oral lasix. Patient reports that her breathing status is actually better than when she left following her last hospitalization. - Patient also with a history of COPD, but appears quiescent with no wheezing. Continue to monitor. - Consider aspiration pneumonia in setting of illness at home with nausea and vomiting. However, patient's mild leukocytosis has resolved and she remains afebrile, previously off antibiotic therapy - she has also undergone 2 recent courses of broad spectrum antibiotic therapy for Pneumonia, and feels vastly improved. Monitor symptoms closely, but continue to hold off antibiotic therapy for pulmonary infection at this time (initiated on Abx for UTI). (2) Acute diastolic CHF (congestive heart failure): Evidence of Diastolic Dysfunction by ECHO 01/2018, with intact LVEF. Initially with elevated BNP that was unchanged from last hospitalization, when patient was also treated for an acute exacerbation of her underlying diastolic CHF. Has diuresed, feels vastly improved subjectively, and with drop in BNP 5050 --> 935, and no longer requiring oxygen at rest or with ambulation. Discontinued lasix gtt and change back to oral formulation. Dry weight appears to be 116-118 Kg. Discontinued Flynn Catheter. Appears net negative approximately 4-5L. Plan will be to continue home dose of lasix, with careful monitoring of weight, fluid and sodium restriction, and Home Nursing and PCP follow-up. In-depth discussion regarding plan for this going forward with patient. (3) UTI (urinary tract infection): Received Ceftriaxone #3, with Urine Cultures showing E.Coli with appropriate sensitivities. (4) Constipation: Reported bowel movement with bowel regimen. (5) CKD (chronic kidney disease) stage 3, GFR 30-59 ml/min: Mild ZACHARY superimposed on CKD, appeared resolved, now mildly worse following continued diuresis. Creatinine unchanged at 1.7 with change to PO lasix. Will continue to monitor renal function and electrolytes carefully with outpatient repeat BMP. Renally dose medications when needed, and avoid nephrotoxins. (6) CAD (coronary artery disease): S/p CABG in December - serial cardiac biomarkers negative at time of admission. Continue BB, ASA, high potency statin. Currently asymptomatic. (7) Diabetes mellitus: Was maintained on sliding scale coverage. Also on Glipizide, QHS Liraglutide, which will be continued at home. (8) Hyperlipidemia: On high potency statin. (9) Atrial fibrillation: Remained in sinus during her hospital course. Continue BB. No AC as patient is s/p PINEDA excision at time of CABG. (10) DVT prophylaxis: Was maintained on SC Heparin. Also on PPI therapy for GI prophylaxis. (11) Advance directive on file: Full Code. (12) Disposition Home with Home Health. Home Meds and New Rx's Prescriptions: Continued lancets 25 gauge misc .ROUTE .MEDSUPPLY Qty: 100 RF: 5 pen needle, diabetic [1st Tier Unifine Pentips] 31 gauge x 1/4 needle .ROUTE .MEDSUPPLY Qty: 30 RF: 5 Blood Glucose Test strip .ROUTE .MEDSUPPLY Qty: 100 RF: 5 lancets [OneTouch Delica Lancets] 33 gauge misc .ROUTE DAILY Qty: 100 RF: 0 allopurinol 100 mg tablet 100 mg PO DAILY Qty: 90 RF: 12 gabapentin 600 mg tablet 600 mg PO TID Qty: 270 RF: 12 glipizide 10 mg tablet extended release 24hr 10 mg PO DAILY Qty: 90 RF: 11 atorvastatin 40 mg tablet 40 mg PO DAILY Qty: 90 RF: 6 duloxetine 60 mg capsule,delayed release(DR/EC) 60 mg PO DAILY Qty: 90 RF: 12 Symbicort 160-4.5 mcg/actuation HFA aerosol inhaler 2 puff IH BID Qty: 10.2 RF: 12 metoprolol succinate 50 mg tablet extended release 24 hr 150 mg PO DAILY Qty: 270 RF: 5 diltiazem HCl 120 mg capsule,extended release 24hr 240 mg PO DAILY Qty: 180 RF: 5 epinephrine [EpiPen 2-Erick] 0.3 MG/0.3 ML auto-injector 0.3 mg IM ONCE Qty: 2 RF: 10 folic acid 1 mg tablet 1 mg PO DAILY Qty: 90 RF: 5 nystatin 100,000 unit/gram cream 1 applic Topical BID PRN (Reason: yeast) Qty: 30 RF: 2 meclizine 12.5 mg tablet 25 mg PO TID PRN (Reason: dizziness) Qty: 60 RF: 3 ergocalciferol (vitamin D2) [Vitamin D2] 50,000 unit capsule 50,000 unit PO Qty: 36 RF: 4 Victoza 2-Erick 0.6 mg/0.1 mL (18 mg/3 mL) pen injector 1.8 mg SC DAILY Qty: 27 RF: 11 tramadol 50 mg tablet 50 mg PO BID PRN (Reason: pain) Qty: 20 RF: 0 cyanocobalamin (vitamin B-12) [Vitamin B-12] 500 MCG tablet 1,000 mcg PO DAILY Qty: 100 RF: 0 polyethylene glycol 3350 [Miralax] 17 gram Powder In Packet 1 g PO PRN PRNRF: 0 magnesium hydroxide [Milk of Magnesia] 400 mg/5 mL Suspension 30 ml PO PRN PRN (Reason: Constipation) RF: 0 ropinirole [Requip] 2 mg tablet 2 mg PO QPM PRNRF: 0 calcium carbonate-vitamin D3 [Calcium 600 + D(3)] 600 mg(1,500mg) -200 unit Tablet 2 tab PO BID Qty: 60 RF: 0 aspirin [Aspir-81] 81 mg Tablet,Delayed Release (Dr/Ec) 81 mg PO DAILY Qty: 30 RF: 0 acetaminophen [Tylenol Extra Strength] 500 mg Tablet 1,000 mg PO Q8H PRN PRN (Reason: Pain) Qty: 0 RF: 0 fluticasone propion-salmeterol [Advair Diskus] 100-50 mcg/dose Blister With Device 2 puff Inhalation BID RF: 0 albuterol sulfate 2.5 mg /3 mL (0.083 %) Solution For Nebulization 2.5 mg INHALATION Q2H PRN PRN (Reason: shortness of breath or wheezing) Qty: 0 RF: 0 furosemide 40 mg tablet 40 mg PO DAILY RF: 0 omeprazole 40 mg capsule,delayed release(DR/EC) 80 mg PO BID RF: 0 Discharge Instructions Additional Instructions: 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 Activity:: No strenuous activity Equipment/Supplies:: No Equipment Needed Diet:: Low sodium, Fluid restricted Discharge Orders Discharge Orders: Discharge Order (Routine); Ordered 03/08/19 Ordered By: Oswald Cornell Other Ambulatory Orders: Basic Metabolic Panel (Routine) Location: Determined by Patient Ordered By: Oswald Cornell Exam Narrative Exam Narrative: General: Patient appears comfortable, AAOX3, NAD Neck: Supple CV: Regular, nontachycardic, S1S2, No rubs, murmurs, or gallops. Pulmonary: Bibasilar crackles vastly improved and nearly resolved, improved air entry Abdomen: + Bowel Sounds, soft, nontender, nondistended Vascular: No further b/l lower extremity edema Psych: Normal mood and affect. DS: Data Vitals/I&O Vitals and I&O: Vital Signs Temperature 36.6 C 03/07/19 19:47 Temperature Source Temporal Artery Scan 03/07/19 19:47 Pulse 73 03/08/19 08:02 Pulse Rhythm Regular 03/08/19 09:29 Pulse 74 03/08/19 08:02 Respiratory Rate 20 03/08/19 08:02 Respiratory Effort 03/08/19 09:29 Respiratory Depth Normal 03/08/19 09:29 Respiratory Pattern Normal 03/08/19 09:29 Blood Pressure 97/52 L 03/08/19 08:02 Blood Pressure Mean 63 03/08/19 08:02 Blood Pressure Position Supine 03/03/19 18:36 Pulse Oximetry 94 L 03/08/19 00:05 Oxygen Delivery Method Room Air 03/08/19 00:05 Oxygen Flow Rate 0 03/08/19 00:05 Pain Level 0 03/07/19 19:47 Comment 03/05/19 09:58 Intake & Output 03/07/19 03/08/19 03/08/19 23:59 11:59 23:59 Intake Total 1176.674 / 1690.633 460 / 940 480 / 940 Output Total 625 / 1650 275 / 275 Balance 551.674 / 40.633 185 / 665 480 / 665 Weight 116.9 kg Intake: IV 66.674 / 100.633 Oral 1110 / 1590 460 / 940 480 / 940 Output: Urine 625 / 1650 275 / 275 Other: Urine Color Light [place] Yellow Urine Appearance Cloudy Clear Urine Odor None None Comment VOID X 1. Stool Size Large Stool Characteristics Soft Formed Voiding Methods Bedside Commode Bedside Commode Completed studies during hospitalization [Text1]: EXAM: CT Angiography Chest With Contrast EXAM DATE/TIME: 03/03/2019 1:09 PM CLINICAL HISTORY: 68 years old, female; Shortness of breath; Patient HX: SOB, weakness, hypoxia TECHNIQUE: Imaging protocol: Axial computed tomographic angiography images of the chest with intravenous contrast using CT angiography protocol. Coronal and sagittal reformatted images were created and reviewed. 3D rendering: MIP reconstructed images were created and reviewed. Radiation optimization: All CT scans at this facility use at least one of these dose optimization techniques: automated exposure control; mA and/or kV adjustment per patient size (includes targeted exams where dose is matched to clinical indication); or iterative reconstruction. Contrast material: OMNI 350; Contrast volume: 80 ml; Contrast route: IV; COMPARISON: CT CHEST PE CTA 02/02/2019 7:24 PM FINDINGS: Prior right thyroidectomy. Prior median sternotomy. No evidence of pulmonary embolism. Mild to moderate left pleural effusion. Mild left basilar consolidation most likely represent atelectasis. Mild right basilar atelectasis. Thoracic aorta unremarkable. No significant hilar or mediastinal adenopathy. Prior cholecystectomy. 4.8 cm right adrenal mass unchanged from the prior examination. 3.2 cm left adrenal mass unchanged. IMPRESSION: 1. Bibasilar atelectasis with small left pleural effusion. 2. No other specific etiology identified for the patient's symptoms. Exam(s) 03/03/[address]:CT chest PE CTA SYMPTOM/DIAGNOSIS: SHORTNESS OF BREATH HYPOXIA, WEAKNESS CHEST CT FOR PULMONARY EMBOLISM: CT angiography was performed with multi slice acquisition and multi planar and 3D reconstruction. Comparison is made with 30 December 2018. There is no evidence of pulmonary emboli or aortic dissection. Sternal wires and mediastinal clips are again noted related to prior CABG. There is a moderate sized left pleural effusion. There is a tiny right pleural effusion. There is respiratory motion at the lung bases limiting the exam. Infiltrate vs atelectasis is seen at the right lung base. There are stable bilateral adrenal masses. The patient is status post cholecystectomy. A cyst is again noted at the upper pole of the right kidney. IMPRESSION: Moderate size left pleural effusion. Right lower lobe infiltrate vs atelectasis. Labs on day of discharge: Labs from last 24 hours 03/08/19 03/08/19 05:20 05:20 WBC 9.98 RBC 4.10 Hgb 10.8 L Hct 36.6 MCV 89.3 MCH 26.3 L MCHC 29.5 L RDW 16.7 H Plt Count 462 H MPV 10.0 Immature Gran % 0.7 Neutrophils % 54.7 Lymphocytes % 22.2 Monocytes % 9.5 Eosinophils % 12.3 Basophils % 0.6 Absolute Neutrophils 5.45 Absolute Lymphocytes 2.22 Absolute Monocytes 0.95 H Absolute Eosinophils 1.23 H Absolute Basophils 0.06 Differential Comment Agrees w/ instrument RBC Morphology See below Polychromasia Present Hypochromasia 1+ Basophilic Stippling Present Anisocytosis 1+ Sodium 141 Potassium 4.3 Chloride 100 Carbon Dioxide 33.7 H Anion Gap 7.3 BUN 36 H Creatinine 1.73 H Estimated GFR/1.73 m2 29.47 Glucose 153 H Calcium 9.6 Magnesium 2.6 H Additional Comments Urine Culture Final 03/07/19-08 Day 1 Result ISOLATES BELOW ISOLATE 1 COLONY COUNT >100,000 COLONIES/ML ISOLATE 1 APPEARANCE Gram Negative Nathan ISOLATE 1 ACTION SUSCEPTIBILITY TO FOLLOW Day 2 Result ISOLATES BELOW ISOLATE 1 COLONY COUNT >100,000 COLONIES/ML ISOLATE 1 APPEARANCE Gram Negative Nathan Organism 1 Escherichia coli COLONY COUNT >100,000 COLONIES/ML Esch coli RESULT Ampicillin R Ampicillin/Sulbactam R Cefazolin S Ceftazidime S CEFTRIAXONE S Ciprofloxacin S Gentamicin S Nitrofurantoin S Imipenem S Levofloxacin S Tobramycin S Trimethoprim/Sulfamethoxazole S Piperacillin/Tazobactam I [facility] Medical History Atrial flutter with rapid ventricular response (Chronic) Pulmonary hypertension (Chronic) Acute diastolic CHF (congestive heart failure) (Chronic) CAD (coronary artery disease) (Chronic) HCAP (healthcare-associated pneumonia) (Resolved) Anemia (Chronic) Tarsal tunnel syndrome (Chronic 06/11/13) CKD (chronic kidney disease) stage 3, GFR 30-59 ml/min (Chronic) Shingles (Resolved) Hip pain, left (Chronic) Hip pain, right (Chronic) Lump in neck (Chronic) Diabetes mellitus (Chronic) Hyperlipidemia (Chronic 08/10/00) Gout (Chronic 07/06/11) Spinal stenosis of lumbar region (Chronic 02/15/16) Restless legs (Chronic) Paroxysmal atrial fibrillation (Chronic 03/01/16) 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) Chronic obstructive lung disease (Chronic) Atrial fibrillation (Chronic) Restless leg syndrome (Chronic) Essential hypertension (Chronic) Hyperlipidemia (Chronic) History of coronary artery disease (Chronic) Abnormal mammography (Resolved) Ankle pain (Resolved 03/13/14) Carpal tunnel syndrome (Resolved 08/10/06) Cervical disc disorder with myelopathy (Resolved 08/21/08) Chest pain (Resolved) Diabetes mellitus (Resolved) Folate deficiency (Resolved 02/15/16) Gram-positive bacteremia (Resolved) HAP (hospital-acquired pneumonia) (Resolved 01/15/19) Hepatomegaly (Resolved) Hip joint inflamed (Resolved 09/03/15) Low back pain (Resolved 04/10/03) Menopausal syndrome (Resolved) Muscle fatigue (Resolved) Posterior tibial tendon dysfunction (Resolved) Postmenopausal bleeding (Resolved) Postoperative wound dehiscence (Resolved 12/23/15) Primary osteoarthritis of left hip (Resolved 09/17/15) Renal impairment (Resolved 07/11/03) Rotator cuff syndrome (Resolved 08/01/09) Smoker (Resolved 06/30/16) Tarsal tunnel syndrome (Resolved) Trochanteric bursitis (Resolved) Upper respiratory tract infection (Resolved 08/03/15) Vitamin D deficiency (Resolved) Atrial flutter (Inactive) Atrial fibrillation Carpal tunnel syndrome Cervical spondylosis with myelopathy Gout Hypertension Spinal stenosis of lumbar region at multiple levels Vitamin D deficiency Surgical History S/P CABG (coronary artery bypass graft) (Chronic 01/03/19) H/O Spinal surgery (Resolved) H/O arthrodesis (Resolved) History of bilateral tubal ligation (Resolved) History of gynecologic surgery (Resolved) History of hip surgery (Resolved) History of orthopedic surgery (Resolved) S/P carpal tunnel release (Resolved) S/P cholecystectomy (Resolved) S/P rotator cuff repair (Resolved) Status post incision and drainage (Resolved) Arthrodesis Cholecystectomy (07/31/13) Endometrial Biopsy Left eye surgery Ligation of fallopian tube (~1980) Open Carpal Tunnel release Right wrist surgery Rotator Cuff Repair (~1980) SPINE SURGERY Total replacement of hip cervical repair (~10/2008) tarsal tunnel release (~1997) Family History Mother Diabetes Essential hypertension Personal history of malignant neoplasm Heart disease Hyperlipidemia Stroke Asthma Father Diabetes Essential hypertension Personal history of malignant neoplasm Heart disease Asthma Sister Diabetes Essential hypertension Depression Heart disease Asthma Grandfather No problems noted. Grandfather No problems noted. Grandmother Personal history of malignant neoplasm Grandmother Diabetes Aunt Personal history of malignant neoplasm Brother Hyperlipidemia Stroke Sister Asthma Son Asthma Daughter Depression Asthma Daughter Asthma Daughter Depression Neoplasm Asthma Brother No problems noted. 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
--- NOTE | 2019-03-08 15:47 | PDOC.HHF2F ---
1. Encounter Date and Reason I certify that NARENDRA BOYER was seen by Oswald Cornell on 03/08/19 and that I had a [id number] encounter with this patient that meets the physician face to face encounter requirements. 2. Clinical Findings Supporting Skilled Need and Homebound Status I certify that home health services are medically necessary, include either intermittent halfway and/or physical/speech therapy, and that this patient is homebound in that absences from the home require considerable and taxing effort and are infrequent or of short duration, or are attributable to the need to receive medical care. [X] (a) Attached documentation from encounter provides clinical findings supporting skilled need and homebound status (including what assistance patient requires to leave the home). The encounter with the patient was in whole, or in part, for the following medical condition, which is the primary reason for home health care: HYPOXIA [facility]: Resume Home Health care - Nursing for med check, weight check, monitoring for CHF type symptoms. Physical Therapy/Occupational Therapy: Multiple recent hospitalizations, with deconditioning. Speech Therapy: Homebound: 3. Certification and Authentication I certify that I composed the above information based on my clinical judgement relating to this patient's medical condition and, if applicable, clinical findings communicated to me by the NPP or inpatient physician who performed the Home Health Referral. All further orders will be obtained through (Community Based Physician - PCP)
--- NOTE | 2019-03-10 15:51 | PT.INDS ---
Date of service: 03/10/19 PT Notes Inpatient Physical Therapy Discharge Summary Dates: 03/10/2019 Dates of Service: 03/07/2019 only Referring Doctor: Oswald Cornell MD PT Orders: PT CONSULT: Deconditioning Precautions: Fall. Standard. Activity as tolerated Patient Profile/Admitting Diagnosis: Patient is a 68-year-old female with past medical history significant for CABG x 3 on 01/03/2019, coronary artery disease, atrial fibrillation, diabetes mellitus, and pulmonary hypertension who presented to the ED on 03/03/2019 with chief complaints of hypoxia, generalized weakness, dizziness, and shortness of breath for the past 3 days prior to admission. Patient was diagnosed with hypoxia and acute diastolic congestive heart failure associated with bibasilar atelectasis with small left pleural effusion. Referral for physical therapy was received for functional mobility training, BLE strengthening, and therapeutic activity to maximize activity tolerance in anticipation of going home with daughter upon discharge. PMHX: Medical History Atrial flutter with rapid ventricular response (Chronic) Pulmonary hypertension (Chronic) Acute diastolic CHF (congestive heart failure) (Chronic) CAD (coronary artery disease) (Chronic) HCAP (healthcare-associated pneumonia) (Resolved) Anemia (Chronic) Tarsal tunnel syndrome (Chronic 06/11/13) CKD (chronic kidney disease) stage 3, GFR 30-59 ml/min (Chronic) Shingles (Resolved) Hip pain, left (Chronic) Hip pain, right (Chronic) Lump in neck (Chronic) Diabetes mellitus (Chronic) Hyperlipidemia (Chronic 08/10/00) Gout (Chronic 07/06/11) Spinal stenosis of lumbar region (Chronic 02/15/16) Restless legs (Chronic) Paroxysmal atrial fibrillation (Chronic 03/01/16) 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) Chronic obstructive lung disease (Chronic) Atrial fibrillation (Chronic) Restless leg syndrome (Chronic) Essential hypertension (Chronic) Hyperlipidemia (Chronic) History of coronary artery disease (Chronic) Abnormal mammography (Resolved) Ankle pain (Resolved 03/13/14) Carpal tunnel syndrome (Resolved 08/10/06) Cervical disc disorder with myelopathy (Resolved 08/21/08) Chest pain (Resolved) Diabetes mellitus (Resolved) Folate deficiency (Resolved 02/15/16) Gram-positive bacteremia (Resolved) HAP (hospital-acquired pneumonia) (Resolved 01/15/19) Hepatomegaly (Resolved) Hip joint inflamed (Resolved 09/03/15) Low back pain (Resolved 04/10/03) Menopausal syndrome (Resolved) Muscle fatigue (Resolved) Posterior tibial tendon dysfunction (Resolved) Postmenopausal bleeding (Resolved) Postoperative wound dehiscence (Resolved 12/23/15) Primary osteoarthritis of left hip (Resolved 09/17/15) Renal impairment (Resolved 07/11/03) Rotator cuff syndrome (Resolved 08/01/09) Smoker (Resolved 06/30/16) Tarsal tunnel syndrome (Resolved) Trochanteric bursitis (Resolved) Upper respiratory tract infection (Resolved 08/03/15) Vitamin D deficiency (Resolved) Atrial flutter (Inactive) Atrial fibrillation Carpal tunnel syndrome Cervical spondylosis with myelopathy Gout Hypertension Spinal stenosis of lumbar region at multiple levels Vitamin D deficiency Surgical History S/P CABG (coronary artery bypass graft) (Chronic 01/03/19) H/O Spinal surgery (Resolved) H/O arthrodesis (Resolved) History of bilateral tubal ligation (Resolved) History of gynecologic surgery (Resolved) History of hip surgery (Resolved) History of orthopedic surgery (Resolved) S/P carpal tunnel release (Resolved) S/P cholecystectomy (Resolved) S/P rotator cuff repair (Resolved) Status post incision and drainage (Resolved) Arthrodesis Cholecystectomy (07/31/13) Endometrial Biopsy Left eye surgery Ligation of fallopian tube (~1980) Open Carpal Tunnel release Right wrist surgery Rotator Cuff Repair (~1980) SPINE SURGERY Total replacement of hip cervical repair (~10/2008) tarsal tunnel release (~1997) Social History/Home Situation: Ann-Marie was discharged to her daughter's house with [facility] after most recent hospitalization for treatment of hospital acquired Pneumonia. She was independent with all aspects of ADLs without the need for use of assistive ambulatory device nor an adaptive equipment. She states that the daughter has a ramp to enter the house with rails on both sides. She reports that her daughter has a tub/shower with grab bars. She has recently applied for disability. She cared for her spouse at home who had Alzheimer'sand who recently . Equipment Owned/DME: 2-FWW, 2-shower chairs, 2-canes, grab bars, sock aid, shoe horns Subjective: Patient is pleasant and cooperative. She is agreeable to PT consult and treatment today. She plans on going home to daughter's house as soon as she is safe to do so again and in hopes to be able to travel to [place] to attend a relative's graduation ceremonies. She denies any dizziness, chest pain, nor headache throughout this session. Objective: General Observation: Patient seen sitting on chair. Median sternotomy incision well-healed. Telemetry monitors on. Mental Status: Alert and oriented x4 Pain: 0/10 ROM: Right Upper Extremity: Shoulder Flexion WFL. Shoulder abduction WFL. Elbow flexion WFL. Wrist flexion WFL. Functional opening and closing of hand WFL. Left Upper Extremity: Shoulder Flexion WFL. Shoulder abduction WFL. Elbow flexion WFL. Wrist flexion WFL. Functional opening and closing of hand WFL. WFL. Ankle dorsiflexion WFL. Ankle plantarflexion WFL. Right Lower Extremity: Hip flexion 0-110 wth range limited by abdominal panniculus. Hip abduction WFL. Knee flexion WFL. Ankle dorsiflexion WFL. Ankle plantarflexion WFL. Left Lower Extremity: Hip flexion 0-110 with range limited by abdominal panniculus. Hip abduction WFL. Knee flexion WFL. Ankle dorsiflexion WFL. Ankle plantarflexion WFL. Strength: Right Upper Extremity: Shoulder muscles not tested as median sternotomy precautions are still in effect with CABG x 3 done on 01/03/2019. Elbow flexors 5/5. Elbow extensors 5/5. Garage Door Technician strong. Left Upper Extremity: Shoulder muscles not tested as median sternotomy precautions are still in effect with CABG x 3 done on 01/03/2019. Elbow flexors 5/5. Elbow extensors 5/5. Garage Door Technician strong. Right Lower Extremity: Hip flexors 3-/5. Hip abductors 4-/5. Knee flexors 4-/5. Knee extensors 5/5. Ankle dorsiflexors 5/5. Ankle plantarflexors 5/5. Left Lower Extremity:Hip flexors 3-/5. Hip abductors 4/5. Knee flexors 4+/5. Knee extensors 4+/5. Ankle dorsiflexors 5/5. Ankle plantarflexors 5/5. Sensation: Intact as to pain and pressure to BLEs Bed Mobility/Transfers: Rolling independent Supine to sit independent with head of bed between 30 to 45 degrees Sit to supine SBA Sit to stand SBA Stand to sit SBA Bed to chair SBA Chair to bed SBA Gait: Patient tolerated 150 feet using FWW and minimal cueing for energy conservation and overall safety; patient required SBA and SBA of another for IV pole management. Balance: Static Sitting: Good Dynamic Sitting: Good Static Standing: Good Dynamic Standing: Fair Assessment: Patient is a 68- year-old female referred to physical therapy services with the diagnosis of hypoxia and acute diastolic congestive heart failure associated with bibasilar atelectasis with small left pleural effusion. Patient presents with clinical signs and symptoms consistent with current/admitting diagnoses that have resulted to mobility limitations, gait instability, generalized weakness, and impairment of motor control as demonstrated by the following impairment level findings: 1. Decreased strength to B LE major muscle groups 2. Impaired sitting/standing balance 3. Impaired activity tolerance Impairments are contributing to the following functional limitations: 1. Increased completion time for mobility ADL performance, needs frequent rests 2. Fall risk 3. Inability to negotiate ramps without assistance Goals: Goals X1 week 1. Supine-Sit independent NOT MET 2. Sit-Supine independent NOT MET 3. Sit-Stand independent NOT MET 4. Stand-Sit independent NOT MET 5. Bed-Chair independent NOT MET 6. Chair-Bed independent NOT MET 7. Independent gait on level surface without use of assistive ambulatory device for at least 200 feet without report of chest pain nor dyspnea NOT MET 8. Independent with home exercise program NOT MET 9. Good dynamic standing balance/tolerance NOT MET 10. Patient will perform 2-minute walk test without AD of at least 100 feet without report of chest pain nor dyspnea NOT MET DISCHARGE RECOMMENDATIONS: Patient will benefit from resumption of home health physical therapy services in order to prepare patient for phase 2 outpatient cardiac rehab program, reduce fall risk, maximize functional mobility level, and to assess home safety at daughter's house. TREATMENT CODE/TIME: ME Thank you for this referral. Kathryn Sainz, PT, DPT, CLT [facility]
== END 2019-03-08 16:50 | disposition home health service (06) | DRG 205 ==
LOC: ER 16:42 → ICU 17:37
PROVIDERS: Admitting Provider Internal Medicine; Emergency Provider Student in an Organized Health Care Education/Training Program; PCP Family Medicine; Visit Provider Internal Medicine
DX: R09.02 Hypoxemia (principal); I50.33 Acute on chronic diastolic (congestive) heart failure; N39.0 Urinary tract infection, site not specified; N17.9 Acute kidney failure, unspecified; R11.2 Nausea with vomiting, unspecified; B96.20 Unspecified Escherichia coli [E. coli] as the cause of diseases classified elsewhere; K59.00 Constipation, unspecified; N18.3 Chronic kidney disease, stage 3 (moderate); I25.10 Atherosclerotic heart disease of native coronary artery without angina pectoris; E11.22 Type 2 diabetes mellitus with diabetic chronic kidney disease; E78.5 Hyperlipidemia, unspecified; J44.9 Chronic obstructive pulmonary disease, unspecified; Z95.1 Presence of aortocoronary bypass graft; I25.2 Old myocardial infarction; Z16.11 Resistance to penicillins
CPT/HCPCS: 36415; 71275; 80048; 80053; 87077; 93005; 94640; 96361; 96365; 96366; 96367; 96368; 97162; 97530; 99223; 99232; 99233; 99239; 99285; 81003; 81015; 83735; 83880; 84484; 85025; 87086; 87186; 93010; J0696; J1644; J1940; J3475; J3490

== ENCOUNTER 2019-03-13 14:45 | Outpatient (REF) | payer BC, MEDICARE, SELFPAY ==
[2019-03-13 15:22] LABS: HGB 11.2 g/dL (12.0-15.5); Mean Corp. HGB Concentration 30.3 g/dL (32.0-36.0); Mean Corpuscular Hemoglobin 26.6 pg (27.0-33.0); Mean Corpuscular Volume 87.9 fL (80-95); Mean Platelet Volume 10.4 fL (8.0-11.0); Platelet Count 407 x1000/uL (130-400); RBC 4.21 m/cumm (4.00-5.20); RBC Distribution Width 17.3 % (11.7-14.6); White Blood Cell Count 14.13 k/cumm (4.4-10.8)
[2019-03-13 15:35] LABS: ALT 26 U/L (12-78); AST 13 U/L (15-37); Albumin 3.3 g/dL (3.4-5.0); Alkaline Phosphatase 109 U/L (46-116); Anion Gap 12.7 mmol/L (3-11); BUN 23 mg/dL (7-18); Bilirubin, Total 0.3 mg/dL (0.2-1.0); CO2 24.3 mmol/L (21.0-32.0); CREATININE 1.76 mg/dL (0.55-1.02); Calcium 9.4 mg/dL (8.5-10.1); Chloride 97 mmol/L (98-107); Estimated GFR 28.89 (mL/min/1.73m2); Glucose 216 mg/dL (70-100); Potassium 4.7 mmol/L (3.5-5.1); Sodium 134 mmol/L (136-145); Total Protein 7.4 g/dL (6.4-8.2)
[2019-03-13 15:58] LABS: Diff Comment Manual Differential
[2019-03-13 15:59] LABS: Absolute Lymphocyte Count 1.84 k/cumm (1.2-3.4); Absolute Neutrophil Count 10.03 k/cumm (1.2-6.7); Anisocytosis 2+; Hypochromasia 1+; Polychromasia Present
[2019-03-13 16:00] LABS: Absolute Basophil Count 0.57 k/cumm (0.0-0.2); Absolute Eosinophil Count 0.85 k/cumm (0.0-0.7); Absolute Monocyte Count 0.71 k/cumm (0.11-0.7)
== END 2019-03-13 15:05 ==
LOC: LBN 14:45
PROVIDERS: PCP Family Medicine; Visit Provider Family Medicine
DX: N18.3 Chronic kidney disease, stage 3 (moderate) (principal); D64.9 Anemia, unspecified
CPT/HCPCS: 80053; 85025

== ENCOUNTER 2019-03-20 16:19 | Outpatient (REF) | payer BC, SELFPAY ==
[2019-03-20 16:52] LABS: Bilirubin Negative (Negative); Blood Negative (Negative); Clarity Clear (Clear); Glucose Negative (Negative); Ketones Negative (Negative); Leukocyte Esterase Negative (Negative); Nitrite Negative (Negative); Urobilinogen 0.2 EU/dL (Up TO 0.2); pH 5.5 (5-8)
[2019-03-20 16:55] LABS: ALT 12 U/L (12-78); Alkaline Phosphatase 98 U/L (46-116); Anion Gap 11.3 mmol/L (3-11); BUN 28 mg/dL (7-18); Bilirubin, Total 0.2 mg/dL (0.2-1.0); CO2 29.7 mmol/L (21.0-32.0); CREATININE 2.05 mg/dL (0.55-1.02); Calcium 9.8 mg/dL (8.5-10.1); Chloride 98 mmol/L (98-107); Estimated GFR 24.23 (mL/min/1.73m2); Glucose 181 mg/dL (70-100); NT-proBNP 3514 pg/mL; Potassium 4.1 mmol/L (3.5-5.1); Sodium 139 mmol/L (136-145)
[2019-03-20 17:06] LABS: AST 14 U/L (15-37)
[2019-03-20 17:13] LABS: HCT 36.3 % (36.0-46.0); HGB 10.6 g/dL (12.0-15.5); Mean Corp. HGB Concentration 29.2 g/dL (32.0-36.0); Mean Corpuscular Hemoglobin 25.7 pg (27.0-33.0); Mean Corpuscular Volume 87.9 fL (80-95); Platelet Count 607 x1000/uL (130-400); RBC 4.13 m/cumm (4.00-5.20); RBC Distribution Width 17.6 % (11.7-14.6); White Blood Cell Count 12.12 k/cumm (4.4-10.8)
[2019-03-20 17:31] LABS: Hemoglobin A1C 8.6 % (4.5-6.2)
== END 2019-03-20 16:39 ==
LOC: LBN 16:19
PROVIDERS: PCP Family Medicine; Visit Provider Family Medicine
DX: I50.31 Acute diastolic (congestive) heart failure (principal); E11.22 Type 2 diabetes mellitus with diabetic chronic kidney disease
CPT/HCPCS: 80053; 85027; 81003; 83036; 83880

== ENCOUNTER 2019-03-25 13:59 | Outpatient (CLI) | payer BC, SELFPAY | END 2019-03-25 14:19 | PROVIDERS: PCP Family Medicine; Visit Provider Family Medicine | DX: R09.02 Hypoxemia (principal); I27.20 Pulmonary hypertension, unspecified | CPT/HCPCS: 94762 ==

== ENCOUNTER 2019-03-27 15:08 | Outpatient (REF) | payer BC, MEDICARE, SELFPAY ==
[2019-03-27 19:42] LABS: Abs Immature Grans 0.07 k/cumm (0.0-0.09); Absolute Basophil Count 0.07 k/cumm (0.0-0.2); Absolute Eosinophil Count 0.64 k/cumm (0.0-0.7); Absolute Monocyte Count 1.07 k/cumm (0.11-0.7); Absolute Neutrophil Count 10.17 k/cumm (1.2-6.7); Basophils % 0.5; Diff Comment Agrees w/ Instrument; Eosinophils % 4.5; HCT 37.6 % (36.0-46.0); Immature Grans % 0.5; Lymphocytes % 14.9; Mean Corp. HGB Concentration 29.3 g/dL (32.0-36.0); Mean Corpuscular Hemoglobin 24.9 pg (27.0-33.0); Mean Corpuscular Volume 85.1 fL (80-95); Mean Platelet Volume 9.9 fL (8.0-11.0); Monocytes % 7.6; Platelet Count 631 x1000/uL (130-400); RBC 4.42 m/cumm (4.00-5.20); RBC Distribution Width 17.5 % (11.7-14.6); White Blood Cell Count 14.12 k/cumm (4.4-10.8)
[2019-03-27 19:43] LABS: RBC Morphology Normal
== END 2019-03-27 15:28 ==
LOC: LBN 15:08
PROVIDERS: PCP Family Medicine; Visit Provider Family Medicine
DX: E11.9 Type 2 diabetes mellitus without complications (principal); I50.9 Heart failure, unspecified; N18.3 Chronic kidney disease, stage 3 (moderate)
CPT/HCPCS: 80053; 85025

== ENCOUNTER 2019-03-28 19:16 | Outpatient (REF) | payer BC, MEDICARE, SELFPAY ==
[2019-03-28 19:49] LABS: ALT 26 U/L (12-78); AST 17 U/L (15-37); Albumin 3.5 g/dL (3.4-5.0); Alkaline Phosphatase 102 U/L (46-116); BUN 45 mg/dL (7-18); Bilirubin, Total 0.3 mg/dL (0.2-1.0); CREATININE 2.47 mg/dL (0.55-1.02); Calcium 9.9 mg/dL (8.5-10.1); Chloride 90 mmol/L (98-107); Estimated GFR 19.54 (mL/min/1.73m2); Glucose 168 mg/dL (70-100); NT-proBNP 1056 pg/mL; Potassium 3.7 mmol/L (3.5-5.1); Sodium 135 mmol/L (136-145); Total Protein 7.5 g/dL (6.4-8.2)
== END 2019-03-28 19:36 ==
LOC: NCHCN 19:16
PROVIDERS: PCP Family Medicine; Visit Provider Family Medicine
DX: I25.10 Atherosclerotic heart disease of native coronary artery without angina pectoris (principal); I27.20 Pulmonary hypertension, unspecified; I50.31 Acute diastolic (congestive) heart failure; I50.9 Heart failure, unspecified
CPT/HCPCS: 80053; 83880

== ENCOUNTER 2019-04-03 16:09 | Outpatient (REF) | payer BC, SELFPAY ==
[2019-04-03 18:07] LABS: Bilirubin Negative (Negative); Blood Negative (Negative); Clarity Clear (Clear); Glucose Negative (Negative); Ketones Negative (Negative); Leukocyte Esterase Negative (Negative); Nitrite Negative (Negative); Urobilinogen 0.2 EU/dL (Up TO 0.2); pH 6.5 (5-8)
== END 2019-04-03 16:29 ==
LOC: LBN 16:09
PROVIDERS: PCP Family Medicine; Visit Provider Family Medicine
DX: E11.22 Type 2 diabetes mellitus with diabetic chronic kidney disease (principal); N18.3 Chronic kidney disease, stage 3 (moderate); Z79.2 Long term (current) use of antibiotics
CPT/HCPCS: 81003

== ENCOUNTER 2019-04-04 20:10 | Outpatient (REF) | payer BC, MEDICARE, SELFPAY ==
[2019-04-04 13:08] LABS: ALT 24 U/L (12-78); AST 13 U/L (15-37); Albumin 3.4 g/dL (3.4-5.0); Alkaline Phosphatase 84 U/L (46-116); Anion Gap 8.7 mmol/L (3-11); BUN 43 mg/dL (7-18); Bilirubin, Total 0.3 mg/dL (0.2-1.0); CO2 34.3 mmol/L (21.0-32.0); CREATININE 2.09 mg/dL (0.55-1.02); Calcium 9.9 mg/dL (8.5-10.1); Chloride 94 mmol/L (98-107); Estimated GFR 23.69 (mL/min/1.73m2); Glucose 251 mg/dL (70-100); Potassium 3.5 mmol/L (3.5-5.1); Sodium 137 mmol/L (136-145); Total Protein 7.4 g/dL (6.4-8.2)
[2019-04-04 13:13] LABS: HCT 37.3 % (36.0-46.0); HGB 11.2 g/dL (12.0-15.5); Mean Corpuscular Hemoglobin 25.2 pg (27.0-33.0); Mean Platelet Volume 10.1 fL (8.0-11.0); Platelet Count 504 x1000/uL (130-400); RBC 4.44 m/cumm (4.00-5.20); RBC Distribution Width 16.9 % (11.7-14.6); White Blood Cell Count 11.93 k/cumm (4.4-10.8)
== END 2019-04-04 20:30 ==
LOC: LBN 20:10
PROVIDERS: PCP Family Medicine; Visit Provider Family Medicine
DX: N18.3 Chronic kidney disease, stage 3 (moderate) (principal); I50.31 Acute diastolic (congestive) heart failure
CPT/HCPCS: 80053; 85027

== ENCOUNTER 2019-04-10 13:21 | Outpatient (REF) | payer BC, SELFPAY ==
[2019-04-10 13:52] LABS: Abs Immature Grans 0.04 k/cumm (0.0-0.09); Absolute Basophil Count 0.08 k/cumm (0.0-0.2); Absolute Eosinophil Count 0.49 k/cumm (0.0-0.7); Absolute Lymphocyte Count 1.92 k/cumm (1.2-3.4); Absolute Monocyte Count 0.78 k/cumm (0.11-0.7); Absolute Neutrophil Count 7.66 k/cumm (1.2-6.7); Basophils % 0.7; Eosinophils % 4.5; HCT 35.7 % (36.0-46.0); HGB 10.6 g/dL (12.0-15.5); Immature Grans % 0.4; Lymphocytes % 17.5; Mean Corp. HGB Concentration 29.7 g/dL (32.0-36.0); Mean Corpuscular Hemoglobin 24.8 pg (27.0-33.0); Mean Corpuscular Volume 83.6 fL (80-95); Mean Platelet Volume 9.9 fL (8.0-11.0); Monocytes % 7.1; Neutrophils % 69.8; Platelet Count 402 x1000/uL (130-400); RBC 4.27 m/cumm (4.00-5.20); RBC Distribution Width 17.2 % (11.7-14.6); White Blood Cell Count 10.98 k/cumm (4.4-10.8)
[2019-04-10 14:04] LABS: ALT 30 U/L (12-78); AST 17 U/L (15-37); Albumin 3.4 g/dL (3.4-5.0); Alkaline Phosphatase 86 U/L (46-116); Anion Gap 10.1 mmol/L (3-11); BUN 39 mg/dL (7-18); Bilirubin, Total 0.2 mg/dL (0.2-1.0); CO2 33.9 mmol/L (21.0-32.0); CREATININE 1.97 mg/dL (0.55-1.02); Calcium 10.1 mg/dL (8.5-10.1); Chloride 94 mmol/L (98-107); Estimated GFR 25.37 (mL/min/1.73m2); Glucose 181 mg/dL (70-100); Potassium 3.6 mmol/L (3.5-5.1); Sodium 138 mmol/L (136-145); Total Protein 7.3 g/dL (6.4-8.2)
== END 2019-04-10 13:41 ==
LOC: LBN 13:21
PROVIDERS: PCP Family Medicine; Visit Provider Family Medicine
DX: I50.31 Acute diastolic (congestive) heart failure (principal)
CPT/HCPCS: 80053; 85025

== ENCOUNTER 2019-04-10 13:42 | Outpatient (RCR) | payer BC, MEDICARE, SELFPAY | END 2019-04-10 23:59 | disposition home or self-care (01) | LOC: CR 13:42 | PROVIDERS: PCP Family Medicine; Visit Provider Family Medicine | DX: Z95.1 Presence of aortocoronary bypass graft (principal); Z51.89 Encounter for other specified aftercare | CPT/HCPCS: 80053; 85027; 81003; 83036; 83880; S9472 ==

== ENCOUNTER 2019-04-17 16:09 | Outpatient (REF) | payer BC, SELFPAY ==
[2019-04-17 18:19] LABS: Abs Immature Grans 0.07 k/cumm (0.0-0.09); Absolute Eosinophil Count 0.41 k/cumm (0.0-0.7); Absolute Lymphocyte Count 2.12 k/cumm (1.2-3.4); Absolute Monocyte Count 1.08 k/cumm (0.11-0.7); Basophils % 0.9; Eosinophils % 3.2; HGB 10.9 g/dL (12.0-15.5); Immature Grans % 0.6; Lymphocytes % 16.7; Mean Corp. HGB Concentration 30.3 g/dL (32.0-36.0); Mean Corpuscular Hemoglobin 25.1 pg (27.0-33.0); Mean Corpuscular Volume 82.8 fL (80-95); Mean Platelet Volume 10.1 fL (8.0-11.0); Monocytes % 8.5; Neutrophils % 70.1; Platelet Count 447 x1000/uL (130-400); RBC 4.35 m/cumm (4.00-5.20); RBC Distribution Width 17.6 % (11.7-14.6); White Blood Cell Count 12.68 k/cumm (4.4-10.8)
[2019-04-17 18:25] LABS: ALT 27 U/L (12-78); AST 13 U/L (15-37); Albumin 3.4 g/dL (3.4-5.0); Alkaline Phosphatase 87 U/L (46-116); Anion Gap 7.3 mmol/L (3-11); BUN 59 mg/dL (7-18); Bilirubin, Total 0.2 mg/dL (0.2-1.0); CO2 37.7 mmol/L (21.0-32.0); CREATININE 2.31 mg/dL (0.55-1.02); Calcium 9.9 mg/dL (8.5-10.1); Chloride 91 mmol/L (98-107); Estimated GFR 21.11 (mL/min/1.73m2); Glucose 150 mg/dL (70-100); Potassium 3.1 mmol/L (3.5-5.1); Sodium 136 mmol/L (136-145); Total Protein 7.5 g/dL (6.4-8.2)
[2019-04-17 18:30] LABS: Absolute Basophil Count 0.11 k/cumm (0.0-0.2); Absolute Neutrophil Count 8.89 k/cumm (1.2-6.7)
== END 2019-04-17 16:29 ==
LOC: LBN 16:09
PROVIDERS: PCP Family Medicine; Visit Provider Family Medicine
DX: I50.31 Acute diastolic (congestive) heart failure (principal); N18.3 Chronic kidney disease, stage 3 (moderate)
CPT/HCPCS: 80053; 85025

== ENCOUNTER 2019-04-24 09:26 | Outpatient (CLI) | payer BC, SELFPAY ==
[2019-04-24 10:48] LABS: Abs Immature Grans 0.08 k/cumm (0.0-0.09); Absolute Basophil Count 0.02 k/cumm (0.0-0.2); Absolute Eosinophil Count 0.07 k/cumm (0.0-0.7); Absolute Neutrophil Count 14.76 k/cumm (1.2-6.7); Basophils % 0.1; Eosinophils % 0.4; HCT 37.3 % (36.0-46.0); Immature Grans % 0.5; Lymphocytes % 7.4; Mean Corp. HGB Concentration 29.5 g/dL (32.0-36.0); Mean Corpuscular Hemoglobin 24.3 pg (27.0-33.0); Mean Corpuscular Volume 82.3 fL (80-95); Mean Platelet Volume 9.7 fL (8.0-11.0); Monocytes % 2.4; Neutrophils % 89.2; Platelet Count 520 x1000/uL (130-400); RBC 4.53 m/cumm (4.00-5.20); RBC Distribution Width 17.5 % (11.7-14.6); White Blood Cell Count 16.55 k/cumm (4.4-10.8)
[2019-04-24 10:49] LABS: Absolute Lymphocyte Count 1.22 k/cumm (1.2-3.4)
[2019-04-24 11:40] LABS: ALT 29 U/L (12-78); AST 7 U/L (15-37); Albumin 3.5 g/dL (3.4-5.0); Alkaline Phosphatase 81 U/L (46-116); Anion Gap 8.2 mmol/L (3-11); BUN 68 mg/dL (7-18); Bilirubin, Total 0.3 mg/dL (0.2-1.0); CO2 34.8 mmol/L (21.0-32.0); CREATININE 2.51 mg/dL (0.55-1.02); Calcium 9.7 mg/dL (8.5-10.1); Chloride 92 mmol/L (98-107); Estimated GFR 19.18 (mL/min/1.73m2); Glucose 302 mg/dL (70-100); Potassium 4.6 mmol/L (3.5-5.1); Sodium 135 mmol/L (136-145); Total Protein 7.6 g/dL (6.4-8.2)
== END 2019-04-24 09:46 ==
PROVIDERS: PCP Family Medicine; Visit Provider Family Medicine
DX: D64.9 Anemia, unspecified (principal); I10 Essential (primary) hypertension
CPT/HCPCS: 36415; 80053; 85025

== ENCOUNTER 2019-04-29 10:00 | Outpatient (RCR) | payer BC, MEDICARE, SELFPAY | END 2019-05-11 23:59 | disposition home or self-care (01) | LOC: CR 10:00 | PROVIDERS: PCP Family Medicine; Visit Provider Family Medicine | DX: Z95.1 Presence of aortocoronary bypass graft (principal); Z51.89 Encounter for other specified aftercare | CPT/HCPCS: S9472 ==

== ENCOUNTER 2019-05-01 12:27 | Outpatient (REF) | payer BC, SELFPAY ==
[2019-05-01 13:08] LABS: Abs Immature Grans 0.15 k/cumm (0.0-0.09); Absolute Eosinophil Count 0.25 k/cumm (0.0-0.7); Absolute Lymphocyte Count 1.69 k/cumm (1.2-3.4); Basophils % 0.1; Eosinophils % 1.8; HCT 39.5 % (36.0-46.0); HGB 11.7 g/dL (12.0-15.5); Immature Grans % 1.1; Mean Corp. HGB Concentration 29.6 g/dL (32.0-36.0); Mean Corpuscular Hemoglobin 24.4 pg (27.0-33.0); Mean Corpuscular Volume 82.5 fL (80-95); Mean Platelet Volume 9.8 fL (8.0-11.0); Monocytes % 7.3; Neutrophils % 77.7; Platelet Count 499 x1000/uL (130-400); RBC 4.79 m/cumm (4.00-5.20); RBC Distribution Width 17.6 % (11.7-14.6); White Blood Cell Count 14.06 k/cumm (4.4-10.8)
[2019-05-01 13:11] LABS: Absolute Basophil Count 0.01 k/cumm (0.0-0.2); Absolute Monocyte Count 1.03 k/cumm (0.11-0.7); Absolute Neutrophil Count 10.92 k/cumm (1.2-6.7)
[2019-05-01 13:19] LABS: ALT 40 U/L (12-78); AST 17 U/L (15-37); Albumin 3.6 g/dL (3.4-5.0); Alkaline Phosphatase 77 U/L (46-116); Anion Gap 11.7 mmol/L (3-11); BUN 63 mg/dL (7-18); Bilirubin, Total 0.3 mg/dL (0.2-1.0); CO2 30.3 mmol/L (21.0-32.0); CREATININE 2.41 mg/dL (0.55-1.02); Calcium 9.8 mg/dL (8.5-10.1); Chloride 94 mmol/L (98-107); Glucose 406 mg/dL (70-100); Potassium 4.2 mmol/L (3.5-5.1); Sodium 136 mmol/L (136-145); Total Protein 7.3 g/dL (6.4-8.2)
== END 2019-05-01 12:47 ==
LOC: LBN 12:27
PROVIDERS: PCP Family Medicine; Visit Provider Family Medicine
DX: I50.31 Acute diastolic (congestive) heart failure (principal)
CPT/HCPCS: 80053; 85025

== ENCOUNTER 2019-05-10 13:59 | Outpatient (CLI) | payer BC, SELFPAY ==
[2019-05-10 14:31] LABS: Abs Immature Grans 0.03 k/cumm (0.0-0.09); Absolute Basophil Count 0.03 k/cumm (0.0-0.2); Absolute Eosinophil Count 0.25 k/cumm (0.0-0.7); Absolute Lymphocyte Count 1.43 k/cumm (1.2-3.4); Absolute Monocyte Count 0.81 k/cumm (0.11-0.7); Absolute Neutrophil Count 8.27 k/cumm (1.2-6.7); Basophils % 0.3; Eosinophils % 2.3; HCT 37.4 % (36.0-46.0); HGB 11.1 g/dL (12.0-15.5); Immature Grans % 0.3; Lymphocytes % 13.2; Mean Corp. HGB Concentration 29.7 g/dL (32.0-36.0); Mean Corpuscular Hemoglobin 24.4 pg (27.0-33.0); Mean Corpuscular Volume 82.4 fL (80-95); Mean Platelet Volume 9.6 fL (8.0-11.0); Monocytes % 7.5; Neutrophils % 76.4; Platelet Count 315 x1000/uL (130-400); RBC 4.54 m/cumm (4.00-5.20); RBC Distribution Width 18.1 % (11.7-14.6); White Blood Cell Count 10.82 k/cumm (4.4-10.8)
[2019-05-10 15:39] LABS: ALT 38 U/L (14-59); AST 18 U/L (15-37); Albumin 3.3 g/dL (3.4-5.0); Alkaline Phosphatase 72 U/L (46-116); Anion Gap 10.5 mmol/L (3-11); BUN 44 mg/dL (7-18); Bilirubin, Total 0.3 mg/dL (0.2-1.0); CO2 30.5 mmol/L (21.0-32.0); CREATININE 2.37 mg/dL (0.55-1.02); Chloride 99 mmol/L (98-107); Estimated GFR 20.49 (mL/min/1.73m2); Glucose 263 mg/dL (70-100); Potassium 3.8 mmol/L (3.5-5.1); Sodium 140 mmol/L (136-145); Total Protein 6.8 g/dL (6.4-8.2)
== END 2019-05-10 14:19 ==
PROVIDERS: PCP Family Medicine; Visit Provider Family Medicine
DX: I50.31 Acute diastolic (congestive) heart failure (principal); J96.01 Acute respiratory failure with hypoxia; I21.4 Non-ST elevation (NSTEMI) myocardial infarction; E11.22 Type 2 diabetes mellitus with diabetic chronic kidney disease; N18.3 Chronic kidney disease, stage 3 (moderate); D64.9 Anemia, unspecified
CPT/HCPCS: 36415; 80053; 85025

== ENCOUNTER 2019-05-15 17:21 | Outpatient (REF) | payer BC, SELFPAY ==
[2019-05-15 16:05] LABS: Abs Immature Grans 0.02 k/cumm (0.0-0.09); Absolute Basophil Count 0.09 k/cumm (0.0-0.2); Absolute Eosinophil Count 0.33 k/cumm (0.0-0.7); Absolute Lymphocyte Count 1.91 k/cumm (1.2-3.4); Absolute Monocyte Count 0.89 k/cumm (0.11-0.7); Eosinophils % 3.7; HCT 38.2 % (36.0-46.0); HGB 11.3 g/dL (12.0-15.5); Immature Grans % 0.2; Lymphocytes % 21.1; Mean Corp. HGB Concentration 29.6 g/dL (32.0-36.0); Mean Corpuscular Hemoglobin 24.6 pg (27.0-33.0); Mean Platelet Volume 10.1 fL (8.0-11.0); Monocytes % 9.8; Neutrophils % 64.2; Platelet Count 351 x1000/uL (130-400); RBC Distribution Width 18.3 % (11.7-14.6); White Blood Cell Count 9.04 k/cumm (4.4-10.8)
[2019-05-15 16:15] LABS: ALT 32 U/L (14-59); AST 14 U/L (15-37); Albumin 3.6 g/dL (3.4-5.0); Alkaline Phosphatase 73 U/L (46-116); Anion Gap 8.3 mmol/L (3-11); BUN 44 mg/dL (7-18); Bilirubin, Total 0.4 mg/dL (0.2-1.0); CO2 35.7 mmol/L (21.0-32.0); CREATININE 2.24 mg/dL (0.55-1.02); Calcium 7.7 mg/dL (8.5-10.1); Chloride 97 mmol/L (98-107); Estimated GFR 21.87 (mL/min/1.73m2); Glucose 229 mg/dL (70-100); Potassium 3.9 mmol/L (3.5-5.1); Sodium 141 mmol/L (136-145)
== END 2019-05-15 17:41 ==
LOC: LBN 17:21
PROVIDERS: PCP Family Medicine; Visit Provider Family Medicine
DX: I50.31 Acute diastolic (congestive) heart failure (principal); J44.1 Chronic obstructive pulmonary disease with (acute) exacerbation
CPT/HCPCS: 80053; 85025

== ENCOUNTER 2019-05-22 11:39 | Outpatient (REF) | payer BC, SELFPAY ==
[2019-05-22 14:12] LABS: ALT 29 U/L (14-59); AST 13 U/L (15-37); Albumin 3.4 g/dL (3.4-5.0); Alkaline Phosphatase 71 U/L (46-116); Anion Gap 8.2 mmol/L (3-11); BUN 33 mg/dL (7-18); Bilirubin, Total 0.3 mg/dL (0.2-1.0); CO2 31.8 mmol/L (21.0-32.0); CREATININE 1.99 mg/dL (0.55-1.02); Calcium 8.9 mg/dL (8.5-10.1); Chloride 99 mmol/L (98-107); Estimated GFR 25.07 (mL/min/1.73m2); Glucose 229 mg/dL (70-100); Potassium 4.2 mmol/L (3.5-5.1); Sodium 139 mmol/L (136-145); Total Protein 6.7 g/dL (6.4-8.2)
[2019-05-22 15:26] LABS: Hemoglobin A1C 10.1 % (4.5-6.2)
== END 2019-05-22 11:59 ==
LOC: LBN 11:39
PROVIDERS: PCP Family Medicine; Visit Provider Family Medicine
DX: D64.9 Anemia, unspecified (principal); E11.9 Type 2 diabetes mellitus without complications; I27.20 Pulmonary hypertension, unspecified; R09.02 Hypoxemia; I50.31 Acute diastolic (congestive) heart failure
CPT/HCPCS: 80053; 83036

== ENCOUNTER 2019-05-29 12:23 | Outpatient (REF) | payer BC, SELFPAY ==
[2019-05-29 12:58] LABS: ALT 25 U/L (14-59); AST 17 U/L (15-37); Albumin 3.7 g/dL (3.4-5.0); Alkaline Phosphatase 78 U/L (46-116); Anion Gap 10.1 mmol/L (3-11); BUN 49 mg/dL (7-18); Bilirubin, Total 0.4 mg/dL (0.2-1.0); CO2 33.9 mmol/L (21.0-32.0); CREATININE 2.41 mg/dL (0.55-1.02); Chloride 96 mmol/L (98-107); Glucose 232 mg/dL (70-100); Potassium 3.6 mmol/L (3.5-5.1); Sodium 140 mmol/L (136-145); Total Protein 7.5 g/dL (6.4-8.2)
[2019-05-29 13:04] LABS: Abs Immature Grans 0.09 k/cumm (0.0-0.09); Absolute Basophil Count 0.06 k/cumm (0.0-0.2); Absolute Eosinophil Count 0.19 k/cumm (0.0-0.7); Absolute Lymphocyte Count 1.52 k/cumm (1.2-3.4); Absolute Monocyte Count 0.96 k/cumm (0.11-0.7); Basophils % 0.6; Eosinophils % 1.9; HCT 38.7 % (36.0-46.0); HGB 11.3 g/dL (12.0-15.5); Immature Grans % 0.9; Lymphocytes % 14.9; Mean Corp. HGB Concentration 29.2 g/dL (32.0-36.0); Mean Corpuscular Hemoglobin 24.3 pg (27.0-33.0); Mean Corpuscular Volume 83.2 fL (80-95); Mean Platelet Volume 9.9 fL (8.0-11.0); Monocytes % 9.4; Neutrophils % 72.3; Platelet Count 453 x1000/uL (130-400); RBC 4.65 m/cumm (4.00-5.20); RBC Distribution Width 18.8 % (11.7-14.6); White Blood Cell Count 10.22 k/cumm (4.4-10.8)
[2019-05-29 13:31] LABS: Anisocytosis 2+; Diff Comment Diff Reviewed; Hypochromasia 2+; Polychromasia Present
[2019-05-29 13:32] LABS: Poikilocytes 2+
== END 2019-05-29 12:43 ==
LOC: LBN 12:23
PROVIDERS: PCP Family Medicine; Visit Provider Family Medicine
DX: I50.31 Acute diastolic (congestive) heart failure (principal); J44.1 Chronic obstructive pulmonary disease with (acute) exacerbation
CPT/HCPCS: 80053; 85025

== ENCOUNTER 2019-06-06 10:55 | Outpatient (REF) | payer BC, SELFPAY ==
[2019-06-06 10:29] LABS: Abs Immature Grans 0.08 k/cumm (0.0-0.09); Absolute Basophil Count 0.09 k/cumm (0.0-0.2); Absolute Eosinophil Count 0.36 k/cumm (0.0-0.7); Absolute Lymphocyte Count 2.04 k/cumm (1.2-3.4); Absolute Monocyte Count 0.92 k/cumm (0.11-0.7); Absolute Neutrophil Count 6.81 k/cumm (1.2-6.7); Basophils % 0.9; Eosinophils % 3.5; HCT 37.2 % (36.0-46.0); HGB 10.7 g/dL (12.0-15.5); Immature Grans % 0.8; Lymphocytes % 19.8; Mean Corp. HGB Concentration 28.8 g/dL (32.0-36.0); Mean Corpuscular Volume 83.6 fL (80-95); Mean Platelet Volume 9.6 fL (8.0-11.0); Monocytes % 8.9; Neutrophils % 66.1; Platelet Count 520 x1000/uL (130-400); RBC 4.45 m/cumm (4.00-5.20); RBC Distribution Width 18.9 % (11.7-14.6)
[2019-06-06 10:48] LABS: Anisocytosis 2+; Diff Comment RBC Morph Reviewed; Hypochromasia 2+; Polychromasia Present
[2019-06-06 15:18] LABS: ALT 23 U/L (14-59); AST 19 U/L (15-37); Albumin 3.5 g/dL (3.4-5.0); Alkaline Phosphatase 75 U/L (46-116); Anion Gap 7.6 mmol/L (3-11); BUN 44 mg/dL (7-18); Bilirubin, Total 0.4 mg/dL (0.2-1.0); CO2 36.4 mmol/L (21.0-32.0); CREATININE 2.06 mg/dL (0.55-1.02); Calcium 9.6 mg/dL (8.5-10.1); Chloride 97 mmol/L (98-107); Estimated GFR 24.09 (mL/min/1.73m2); Glucose 174 mg/dL (70-100); Potassium 3.8 mmol/L (3.5-5.1); Sodium 141 mmol/L (136-145); Total Protein 7.1 g/dL (6.4-8.2)
== END 2019-06-06 11:15 ==
LOC: LBN 10:55
PROVIDERS: PCP Family Medicine; Visit Provider Family Medicine
DX: I50.33 Acute on chronic diastolic (congestive) heart failure (principal)
CPT/HCPCS: 80053; 85025

== ENCOUNTER 2019-06-07 10:00 | Outpatient (RCR) | payer BC, SELFPAY | END 2019-06-10 23:59 | disposition home or self-care (01) | LOC: CR 10:00 | PROVIDERS: PCP Family Medicine; Visit Provider Family Medicine | DX: Z95.1 Presence of aortocoronary bypass graft (principal); Z51.89 Encounter for other specified aftercare | CPT/HCPCS: S9472 ==

== ENCOUNTER 2019-06-14 09:33 | Outpatient (CLI) | payer BC, SELFPAY ==
[2019-06-14 09:57] LABS: HCT 37.1 % (36.0-46.0); HGB 10.9 g/dL (12.0-15.5); Mean Corp. HGB Concentration 29.4 g/dL (32.0-36.0); Mean Corpuscular Hemoglobin 24.7 pg (27.0-33.0); Mean Corpuscular Volume 83.9 fL (80-95); Mean Platelet Volume 9.6 fL (8.0-11.0); Platelet Count 420 x1000/uL (130-400); RBC 4.42 m/cumm (4.00-5.20); RBC Distribution Width 18.8 % (11.7-14.6); White Blood Cell Count 9.39 k/cumm (4.4-10.8)
[2019-06-14 10:22] LABS: ALT 19 U/L (14-59); AST 13 U/L (15-37); Albumin 3.6 g/dL (3.4-5.0); Alkaline Phosphatase 76 U/L (46-116); Anion Gap 9.9 mmol/L (3-11); BUN 51 mg/dL (7-18); Bilirubin, Total 0.4 mg/dL (0.2-1.0); CO2 35.1 mmol/L (21.0-32.0); CREATININE 2.48 mg/dL (0.55-1.02); Chloride 97 mmol/L (98-107); Estimated GFR 19.45 (mL/min/1.73m2); Glucose 202 mg/dL (70-100); Magnesium 1.5 mg/dL (1.8-2.4); NT-proBNP 353 pg/mL; Potassium 3.3 mmol/L (3.5-5.1); Sodium 142 mmol/L (136-145); Total Protein 7.8 g/dL (6.4-8.2)
== END 2019-06-14 09:53 ==
PROVIDERS: PCP Family Medicine; Visit Provider Family Medicine
DX: I50.9 Heart failure, unspecified (principal); D64.9 Anemia, unspecified; N17.8 Other acute kidney failure
CPT/HCPCS: 36415; 80053; 85027; 83735; 83880

== ENCOUNTER 2019-06-19 01:44 | Outpatient (CLI) | payer BC, SELFPAY ==
[2019-06-19 09:35] LABS: Abs Immature Grans 0.03 k/cumm (0.0-0.09); Absolute Basophil Count 0.08 k/cumm (0.0-0.2); Absolute Eosinophil Count 0.57 k/cumm (0.0-0.7); Absolute Lymphocyte Count 1.42 k/cumm (1.2-3.4); Absolute Monocyte Count 0.61 k/cumm (0.11-0.7); Absolute Neutrophil Count 6.02 k/cumm (1.2-6.7); Basophils % 0.9; Eosinophils % 6.5; HCT 36.5 % (36.0-46.0); HGB 10.6 g/dL (12.0-15.5); Immature Grans % 0.3; Lymphocytes % 16.3; Mean Corpuscular Hemoglobin 24.3 pg (27.0-33.0); Mean Corpuscular Volume 83.5 fL (80-95); Mean Platelet Volume 9.7 fL (8.0-11.0); Platelet Count 387 x1000/uL (130-400); RBC 4.37 m/cumm (4.00-5.20); RBC Distribution Width 18.6 % (11.7-14.6); White Blood Cell Count 8.73 k/cumm (4.4-10.8)
[2019-06-19 10:27] LABS: ALT 22 U/L (14-59); AST 18 U/L (15-37); Albumin 3.5 g/dL (3.4-5.0); Alkaline Phosphatase 69 U/L (46-116); Anion Gap 8.5 mmol/L (3-11); BUN 55 mg/dL (7-18); Bilirubin, Total 0.5 mg/dL (0.2-1.0); CO2 34.5 mmol/L (21.0-32.0); CREATININE 2.37 mg/dL (0.55-1.02); Calcium 8.9 mg/dL (8.5-10.1); Chloride 99 mmol/L (98-107); Estimated GFR 20.49 (mL/min/1.73m2); Glucose 247 mg/dL (70-100); Magnesium 1.3 mg/dL (1.8-2.4); NT-proBNP 404 pg/mL; Potassium 3.7 mmol/L (3.5-5.1); Sodium 142 mmol/L (136-145); Total Protein 7.1 g/dL (6.4-8.2)
[2019-06-19 10:28] LABS: Anisocytosis 2+; Diff Comment RBC Morph Reviewed; Hypochromasia 2+; Poikilocytes 1+; Polychromasia Present
== END 2019-06-19 02:04 ==
PROVIDERS: PCP Family Medicine; Visit Provider Family Medicine
DX: I50.9 Heart failure, unspecified (principal); D64.9 Anemia, unspecified; N17.9 Acute kidney failure, unspecified
CPT/HCPCS: 36415; 80053; 83735; 83880; 85025

== ENCOUNTER 2019-06-19 13:44 | Outpatient (RCR) | payer BC, SELFPAY | END 2019-07-11 23:59 | disposition home or self-care (01) | LOC: CR 13:44 | PROVIDERS: PCP Family Medicine; Visit Provider Family Medicine | DX: Z95.1 Presence of aortocoronary bypass graft (principal); Z51.89 Encounter for other specified aftercare | CPT/HCPCS: S9472 ==

== ENCOUNTER 2019-06-25 14:20 | Outpatient (REF) | payer BC, SELFPAY ==
[2019-06-25 14:34] LABS: HCT 35.5 % (36.0-46.0); HGB 10.4 g/dL (12.0-15.5); Mean Corp. HGB Concentration 29.3 g/dL (32.0-36.0); Mean Corpuscular Hemoglobin 24.5 pg (27.0-33.0); Mean Corpuscular Volume 83.5 fL (80-95); Mean Platelet Volume 9.6 fL (8.0-11.0); Platelet Count 381 x1000/uL (130-400); RBC 4.25 m/cumm (4.00-5.20); White Blood Cell Count 8.64 k/cumm (4.4-10.8)
[2019-06-25 14:45] LABS: ALT 22 U/L (14-59); AST 15 U/L (15-37); Albumin 3.5 g/dL (3.4-5.0); Alkaline Phosphatase 69 U/L (46-116); Anion Gap 9.2 mmol/L (3-11); BUN 43 mg/dL (7-18); Bilirubin, Total 0.3 mg/dL (0.2-1.0); CO2 34.8 mmol/L (21.0-32.0); CREATININE 2.07 mg/dL (0.55-1.02); Calcium 8.9 mg/dL (8.5-10.1); Chloride 97 mmol/L (98-107); Estimated GFR 23.96 (mL/min/1.73m2); Glucose 192 mg/dL (70-100); Magnesium 1.3 mg/dL (1.8-2.4); Potassium 4.1 mmol/L (3.5-5.1); Sodium 141 mmol/L (136-145)
[2019-06-25 15:06] LABS: NT-proBNP 303 pg/mL
== END 2019-06-25 14:40 ==
LOC: LBN 14:20
PROVIDERS: PCP Family Medicine; Visit Provider Family Medicine
DX: I50.9 Heart failure, unspecified (principal); D64.9 Anemia, unspecified; N17.8 Other acute kidney failure; I10 Essential (primary) hypertension; N18.3 Chronic kidney disease, stage 3 (moderate)
CPT/HCPCS: 80053; 85027; 83735; 83880

== ENCOUNTER 2019-07-01 20:54 | Outpatient (REF) | payer BC, SELFPAY ==
[2019-07-01 19:41] LABS: Bilirubin Negative (Negative); Blood Negative (Negative); Clarity Clear (Clear); Glucose Negative (Negative); Ketones Negative (Negative); Leukocyte Esterase Negative (Negative); Nitrite Negative (Negative); Specific Gravity 1.015 (1.005-1.025); Urobilinogen 0.2 EU/dL (Up TO 0.2)
== END 2019-07-01 21:14 ==
LOC: LBN 20:54
PROVIDERS: PCP Family Medicine; Visit Provider Family Medicine
DX: M54.5 Low back pain (principal)
CPT/HCPCS: 81003

== ENCOUNTER 2019-07-03 00:55 | Outpatient (CLI) | payer BC, SELFPAY ==
[2019-07-03 08:45] LABS: HCT 37.9 % (36.0-46.0); HGB 11.1 g/dL (12.0-15.5); Mean Corp. HGB Concentration 29.3 g/dL (32.0-36.0); Mean Corpuscular Hemoglobin 24.6 pg (27.0-33.0); Mean Platelet Volume 9.3 fL (8.0-11.0); Platelet Count 441 x1000/uL (130-400); RBC 4.51 m/cumm (4.00-5.20); White Blood Cell Count 10.51 k/cumm (4.4-10.8)
[2019-07-03 10:03] LABS: ALT 21 U/L (14-59); AST 14 U/L (15-37); Albumin 2.3 g/dL (3.4-5.0); Alkaline Phosphatase 81 U/L (46-116); Anion Gap 12.3 mmol/L (3-11); BUN 47 mg/dL (7-18); Bilirubin, Total 0.4 mg/dL (0.2-1.0); CO2 33.7 mmol/L (21.0-32.0); CREATININE 2.63 mg/dL (0.55-1.02); Calcium 9.4 mg/dL (8.5-10.1); Chloride 95 mmol/L (98-107); Estimated GFR 18.17 (mL/min/1.73m2); Glucose 235 mg/dL (70-100); Magnesium 1.4 mg/dL (1.8-2.4); NT-proBNP 334 pg/mL; Potassium 3.6 mmol/L (3.5-5.1); Sodium 141 mmol/L (136-145); Total Protein 7.5 g/dL (6.4-8.2)
== END 2019-07-03 01:15 ==
PROVIDERS: PCP Family Medicine; Visit Provider Family Medicine
DX: I50.9 Heart failure, unspecified (principal); D64.9 Anemia, unspecified; N17.9 Acute kidney failure, unspecified
CPT/HCPCS: 36415; 80053; 85027; 83735; 83880

== ENCOUNTER 2019-07-05 01:06 | Outpatient (CLI) | payer BC, SELFPAY ==
--- NOTE | 2019-07-05 10:10 | DI.US_ITS ---
APPROVED REPORT Conclusion Left Ventricle : The left ventricle is normal size. left ventricular hypertrophy with sigmoid septum, no obstructions at rest or with provocation. There is some septal bowing which suggests RV pressure overload. Otherwise, segment wall motion is normal. The left ventricular diastolic function is magda l. LVEF is 60-65%. Right Ventricle : Right ventricle is dilated. The right ventricular systolic function is normal. Atria : The left atrium size is normal. The right atrium size is normal. Aortic Valve : No aortic regurgitation is present. Aortic valve is trileaflet and mobile. Aortic valv e leaflets are mildly thickened. The Aortic valve annulus has focal calcification. Aortic sclerosis w ithout stenosis Mitral Valve : Mitral valve leaflets are mildly thickened. MV bends without prolapse Trivial mitral r egurgitation. No evidence of mitral valve stenosis. Tricuspid Valve : The tricuspid valve leaflets are thickened but open well. Moderate tricuspid regur gitation. The RVSP is 45-50mmHg Great Vessels : The IVC is normal in size and collapses >50% with inspiration. Echocardiogram dated 01/16/2019: Estimated RV pressures have increased slightly. EXAM: Comprehensive 2D, Doppler, and color-flow Echocardiogram Patient Location: Out-Patient Business Change Manager: GYPSY Arteaga (AE) Rhythm: NSR Indications: Congestive heart failure. i50.9 Left Ventricle The left ventricle is normal size. The overall left ventricular systolic function appears normal. lef t ventricular hypertrophy with sigmoid septum, no obstructions at rest or with provocation. There is some septal bowing which suggests RV pressure overload. Otherwise, segment wall motion is normal. The left ventricular diastolic function is normal. LVEF is 60-65%. Right Ventricle Right ventricle is dilated. The right ventricular systolic function is normal. Atria The left atrium size is normal. The right atrium size is normal. Aortic Valve Aortic valve is trileaflet and mobile. Aortic valve leaflets are mildly thickened. The Aortic valve a nnulus has focal calcification. Aortic sclerosis without stenosis No aortic regurgitation is present. Mitral Valve Mitral valve leaflets are mildly thickened. MV bends without prolapse No evidence of mitral valve rian nosis. Trivial mitral regurgitation. Tricuspid Valve The tricuspid valve leaflets are thickened but open well. Moderate tricuspid regurgitation. The RVSP is 45-50mmHg Great Vessels The aortic root is normal in size. The ascending aorta is mildly dilated. The IVC is normal in size a nd collapses >50% with inspiration. Pericardium No pericardial effusion was identified. Prominent anterior epicardial fat pad is present. 2D Dimensions IVSd 1.50 cm F: 0.6-1.0 LV EDV A2C 92.20 mL PWd 1.03 cm F: 0.6 - 1.0 LV EDV A4C 83.50 mL LVDd 4.27 cm F: 3.9 - 5.3 LA Volume Index A2C 21.17 mL/m2 LVDs 2.94 cm F: 2.2 - 3.5 LA Volume Index A4C 23.14 mL/m2 Aortic Root 3.53 cm F: 2.7 - 3.3 LA Volume Index Biplane 24.24 mL/m2 RA Area A4C 13.64 cm2 LA Area A4C 18.55 cm2 LVOT 2.00 cm (M/F) 1.5-2.5 LA Area A2C 19.42 cm2 Ascending Aorta 3.88 cm F: 2.3 - 3.1 EF AP4 69.94 % LVEF (Teich) 59.03 % EF AP2 59.44 % LVEF (Quintero's) 63.88 % F: 54 - 74 EF BP 63.88 % FS 31.01 % LV Diastology E Decel Time 227.00 (160-240 msec) E/A Ratio 1.2 MED E' 0.07 (>0.07 m/s) LV E/e MED 12.53 (<14) LAT E' 0.17 (>0.1 m/s) LV E/e LAT 5.51 (<14) Pulm Vein s 0.53 m/s PV S/D Ratio 0.91 Pulm Vein d 0.58 m/s Pulm Vein a 0.35 m/s A-A Duration 124.32 msec Aortic Valve LVOT Area 3.14 cm2 LVOT Peak Mukul. 0.98 m/s LVOT Mean Mukul. 0.75 m/s LVOT Peak Gr. 3.81 mmHg COLEMAN Vmax Index 0.68 cm2/m2 LVOT Mean Gr. 2.42 mmHg LVOT VTI 0.28 m COLEMAN Mean Mukul. Index 0.77 cm2/m2 AoV Peak Mukul. 1.91 (0.5-1.3 m/s) AoV Mean Mukul. 1.29 m/s AO Peak GR. 14.67 mmHg AO Mean GR. 7.48 (<5 mmHg) AO VTI 0.40 (0.18-0.25 m) COLEMAN (VTI) 2.20 (2.5-4.5 cm2) COLEMAN (VTI) Index 0.93 cm/m2 Mitral Valve MV E Max Mukul. 0.93 (0.4-1.3 m/s) MV A Velocity 0.76 (0.4-1.3 m/s) E/A Ratio 1.22 MV Decel. Time 227.00 (160-240 msec) MV PHT 65.70 msec MVA PHT 3.35 cm2 Pulmonary Valve PV Peak Velocity 0.81 (0.5-1.5 m/s) Tricuspid Valve TR P. Velocity 3.37 m/s TV Regurg Vmax 3.37 m/s TR P. Gradient 45.52 mmHg
== END 2019-07-05 01:26 ==
PROVIDERS: PCP Family Medicine; Visit Provider Internal Medicine Cardiovascular Disease
DX: I50.9 Heart failure, unspecified (principal); I25.10 Atherosclerotic heart disease of native coronary artery without angina pectoris; I35.8 Other nonrheumatic aortic valve disorders; I10 Essential (primary) hypertension
CPT/HCPCS: 93306

== ENCOUNTER 2019-07-11 10:21 | Outpatient (REF) | payer BC, SELFPAY ==
[2019-07-11 12:05] LABS: ALT 23 U/L (14-59); AST 12 U/L (15-37); Albumin 3.5 g/dL (3.4-5.0); Alkaline Phosphatase 73 U/L (46-116); Anion Gap 7.5 mmol/L (3-11); BUN 53 mg/dL (7-18); Bilirubin, Total 0.3 mg/dL (0.2-1.0); CO2 34.5 mmol/L (21.0-32.0); Calcium 9.4 mg/dL (8.5-10.1); Chloride 97 mmol/L (98-107); Estimated GFR 21.21 (mL/min/1.73m2); Glucose 188 mg/dL (70-100); Magnesium 1.5 mg/dL (1.8-2.4); NT-proBNP 333 pg/mL; Sodium 139 mmol/L (136-145); Total Protein 7.3 g/dL (6.4-8.2)
== END 2019-07-11 10:41 ==
LOC: LBN 10:21
PROVIDERS: PCP Family Medicine; Visit Provider Family Medicine
DX: I50.9 Heart failure, unspecified (principal); D64.9 Anemia, unspecified; N17.9 Acute kidney failure, unspecified
CPT/HCPCS: 80053; 83735; 83880

== ENCOUNTER 2019-07-17 11:41 | Outpatient (CLI) | payer BC, SELFPAY ==
[2019-07-17 11:31] LABS: HCT 38.1 % (36.0-46.0); HGB 11.1 g/dL (12.0-15.5); Mean Corp. HGB Concentration 29.1 g/dL (32.0-36.0); Mean Corpuscular Hemoglobin 24.7 pg (27.0-33.0); Mean Corpuscular Volume 84.9 fL (80-95); Mean Platelet Volume 8.8 fL (8.0-11.0); Platelet Count 481 x1000/uL (130-400); RBC 4.49 m/cumm (4.00-5.20); RBC Distribution Width 17.1 % (11.7-14.6); White Blood Cell Count 10.28 k/cumm (4.4-10.8)
[2019-07-17 12:30] LABS: ALT 27 U/L (14-59); AST 17 U/L (15-37); Albumin 3.6 g/dL (3.4-5.0); Alkaline Phosphatase 81 U/L (46-116); Anion Gap 7.3 mmol/L (3-11); BUN 34 mg/dL (7-18); Bilirubin, Total 0.3 mg/dL (0.2-1.0); CO2 33.7 mmol/L (21.0-32.0); CREATININE 2.14 mg/dL (0.55-1.02); Calcium 9.3 mg/dL (8.5-10.1); Chloride 100 mmol/L (98-107); Estimated GFR 23.06 (mL/min/1.73m2); Glucose 181 mg/dL (70-100); Magnesium 1.5 mg/dL (1.8-2.4); NT-proBNP 461 pg/mL; Potassium 4.3 mmol/L (3.5-5.1); Sodium 141 mmol/L (136-145); Total Protein 7.4 g/dL (6.4-8.2)
== END 2019-07-17 12:01 ==
PROVIDERS: PCP Family Medicine; Visit Provider Family Medicine
DX: I50.9 Heart failure, unspecified (principal); D64.9 Anemia, unspecified; N18.9 Chronic kidney disease, unspecified
CPT/HCPCS: 36415; 80053; 85027; 83735; 83880

== ENCOUNTER 2019-07-19 13:36 | Inpatient (IN) | payer BC, SELFPAY ==
[2019-07-19] VITALS (7 sets, daily range): BP systolic 103–115; BP diastolic 60–73; PULSE 64–70; RESP 18–19; TEMP 36–36.9; O2SAT 93–98
[2019-07-19] MEDS: Omeprazole 20 MG CAPCR 80 MG PO (07:25)
[2019-07-19 14:47] LABS: Abs Immature Grans 0.03 k/cumm (0.0-0.09); Absolute Basophil Count 0.11 k/cumm (0.0-0.2); Absolute Eosinophil Count 0.78 k/cumm (0.0-0.7); Absolute Lymphocyte Count 1.94 k/cumm (1.2-3.4); Absolute Monocyte Count 0.74 k/cumm (0.11-0.7); Absolute Neutrophil Count 5.86 k/cumm (1.2-6.7); Basophils % 1.2; Eosinophils % 8.2; HCT 34.9 % (36.0-46.0); HGB 10.4 g/dL (12.0-15.5); Immature Grans % 0.3; Lymphocytes % 20.5; Mean Corp. HGB Concentration 29.8 g/dL (32.0-36.0); Mean Corpuscular Hemoglobin 25.1 pg (27.0-33.0); Mean Corpuscular Volume 84.3 fL (80-95); Mean Platelet Volume 9.3 fL (8.0-11.0); Monocytes % 7.8; Platelet Count 476 x1000/uL (130-400); RBC 4.14 m/cumm (4.00-5.20); White Blood Cell Count 9.46 k/cumm (4.4-10.8)
[2019-07-19 14:51] LABS: ALT 23 U/L (14-59); AST 13 U/L (15-37); Albumin 3.2 g/dL (3.4-5.0); Alkaline Phosphatase 70 U/L (46-116); Bilirubin, Total 0.3 mg/dL (0.2-1.0); Magnesium 1.3 mg/dL (1.8-2.4); Total Protein 7.1 g/dL (6.4-8.2)
[2019-07-19 14:54] LABS: Anion Gap 8.1 mmol/L (3-11); BUN 30 mg/dL (7-18); CO2 31.9 mmol/L (21.0-32.0); CREATININE 1.98 mg/dL (0.55-1.02); Calcium 8.9 mg/dL (8.5-10.1); Chloride 102 mmol/L (98-107); Estimated GFR 25.22 (mL/min/1.73m2); Glucose 137 mg/dL (70-100); Potassium 3.9 mmol/L (3.5-5.1); Sodium 142 mmol/L (136-145); Troponin I < 0.05 ng/mL (0.00-0.06)
--- NOTE | 2019-07-19 14:57 | HPE_ITS ---
Date of service: 07/19/19 Time of Service: 14:57 Assessment and Plan Assessment and plan (1) Acute on chronic diastolic (congestive) heart failure: Start date: 07/19/19 Start time: 15:14 Status: Acute Assessment and plan: Per patient 10 lb wt gain over last week. Currently on Bumex 2 mg daily. She does check her wt daily. 16 lb weight gain over last month. Direct admit from cardiology to m/s. Wears oxygen at night 2 liters, using more pillows and SOB with ambulation. LS with crackles bilaterally, edema to RLE with +2 pitting edema. Echo was last done 07/05/2019. EF of 60-65%, septal bowing indicating RV pressure overload. Left ventricular hypertrophy with sigmoid septum. Right ventricle dilated, systolic function normal. Moderate tricuspid regurgitation, RVSP 45-50 mmHG, RV pressures increased slightly. Place on teley Diuresis with Bumex drip Monitor Renal function Monitor output. Trend troponin CXR (2) PAF (paroxysmal atrial fibrillation): Start date: 07/19/19 Start time: 15:15 Status: Acute Assessment and plan: Controlled at this time. Excision of her Left Atrial Appendage at the time of her CABG. Monitor on teley, Continue cardizem Diuresis for CHF, see above. (3) Hypoxia: Start date: 07/19/19 Start time: 15:16 Status: Acute Assessment and plan: Uses 2 liters at night for sleep, does not use Cpap or bipap. Continue 2 liters CXR as patient is producing sputum Continue to monitor breathing diuresising see above. (4) Pulmonary hypertension: Start date: 07/19/19 Start time: 15:19 Status: Chronic Assessment and plan: see above. (5) CKD (chronic kidney disease) stage 3, GFR 30-59 ml/min: Start date: 07/19/19 Start time: 15:39 Status: Chronic Assessment and plan: Elevated Creatinine but stable and baseline for fortunato ent. Continue to monitor. On diuresis. (6) S/P CABG (coronary artery bypass graft): Start date: 07/19/19 Start time: 15:40 Status: Chronic Assessment and plan: In december 2018. No CP, healing scar to chest. Regular rate and rhythm. Monitor on teley. Continue HTN medications Cardizem Statin Asa. (7) Diabetes mellitus: Start date: 07/19/19 Start time: 15:41 Status: Chronic Assessment and plan: 137 glucose by labs. Hold glipizide while in the hospital, continue januvia Fingerstick at with SSI sensitive and monitor. Carb counting diet. Qualifiers: Diabetes mellitus type: type 2 Diabetes mellitus detention insulin use: without detention use Diabetes mellitus complication status: with kidney complications Diabetes mellitus complication detail: with chronic kidney disease (8) Hyperlipidemia: Start date: 07/19/19 Start time: 15:42 Status: Chronic Assessment and plan: Continue statin (9) Gout: Start date: 07/19/19 Start time: 15:42 Status: Chronic Assessment and plan: Continue allopurinol (10) Restless leg syndrome: Start date: 07/19/19 Start time: 15:43 Status: Chronic Assessment and plan: Neurotin 600 mg TID. continue, Requip at (11) Essential hypertension: Start date: 07/19/19 Start time: 15:43 Status: Chronic Assessment and plan: Monitor bp q 4 hours. Metoprolol 25 mg daily continue (12) Macrocytic anemia: Start date: 07/19/19 Start time: 15:44 Status: Chronic Assessment and plan: Stable at this time at 10.4 and 34.9. Target range for patient with history of CABG is 10 hemoglobin. Continue to monitor h/h, on folic acid, vitamin B (13) Hypomagnesemia: Start date: 07/19/19 Start time: 15:47 Status: Acute Assessment and plan: Mag 1.3, Monitor on teley Replete with 4 grams Recheck level in am. Above case was discussed with Dr. Mims who is in agreement. History of Present Illness History of Present Illness Chief Complaint: Acute On Chronic CHF Narrative: 68 y.o female with significant cardiac history of PAF, S/P CABG in December 2018 following a NSTEMI she also underwent excision of her Left Atrial Appendage at the time of her CABG; no longer requiring anticoagulation. CHF, CKD, depression, gout, RLS, and spinal stenosis, hyperlipidemia, and HTN. Seen by her manager clinical research today after a 10 lb weight gain over the week. She was directly admitted to M/S for inpatient status and diuresis. Mrs. Griggs is well known to us for exacerbations of CHF. She endorses using 4 pillows over the past week at night when usually she uses 1. She also states a 10 lb weight gain over the last week and 16 lb weight gain over the last month. She does wear 2 liters of oxygen at night but has had increased SOB with limited mobility. She takes bumex daily and has been taking the medication as directed. She also weighs herself daily. She is being admitted for Acute on Chronic CHF, she will be placed on a bumex drip for diuresis with daily weights. BUN and creatinine are elevated but stable at baseline for her. She denies CP, SOB, N/V/D Review of Systems All systems reviewed & are unremarkable except as noted in HPI and below [facility] Medical History Abnormal mammography (Resolved) 08/10/06 Acute diastolic CHF (congestive heart failure) (Chronic) Anemia (Chronic) Ankle pain (Resolved 03/13/14) Atrial fibrillation (Chronic) paroxysmal, onset 2015, anticoagulated w/ Xarelto; anticoagulation discontinued after left atrial appendage excision 01/03/2019 Atrial fibrillation Atrial flutter (Inactive) Carpal tunnel syndrome Carpal tunnel syndrome (Resolved 08/10/06) BILATERAL R S/P SURGERY Cervical disc disorder with myelopathy (Resolved 08/21/08) S/P surgery x 2 Cervical spondylosis with myelopathy Chest pain (Resolved) Neg Stress test Chronic obstructive lung disease (Chronic) 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) CKD (chronic kidney disease) stage 3, GFR 30-59 ml/min (Chronic) Cr about 2.5 Constipation (Inactive) Diabetes mellitus (Chronic) Diabetes mellitus (Resolved) 09/20/10 Positive Microalbumin Essential hypertension (Chronic) Folate deficiency (Resolved 02/15/16) Gout Gout (Chronic 07/06/11) Gram-positive bacteremia (Resolved) HAP (hospital-acquired pneumonia) (Resolved 01/15/19) HCAP (healthcare-associated pneumonia) (Resolved) Hepatomegaly (Resolved) 06/10/04 Hip joint inflamed (Resolved 09/03/15) Hip pain, left (Chronic) Hip pain, right (Chronic) Hyperlipidemia (Chronic 08/10/00) Hypertension Hypoxia (Inactive) Low back pain (Resolved 04/10/03) DISC HERNIATION L4. MULTILEVEL DJD/SPINAL STENOSIS BY MRI; S/P surgery Lump in neck (Resolved) Menopausal syndrome (Resolved) 07/11/03 Muscle fatigue (Resolved) 03/04/13 PAF (paroxysmal atrial fibrillation) (Acute) Posterior tibial tendon dysfunction (Resolved) 02/03/16 Postmenopausal bleeding (Resolved) neg. endometrial biopsy Postoperative wound dehiscence (Resolved 12/23/15) Primary osteoarthritis of left hip (Resolved 09/17/15) Pulmonary hypertension (Chronic) Renal impairment (Resolved 07/11/03) ADRENAL MASS. F/U W/ KINLAW positive microalbumin Restless leg syndrome (Chronic) Rotator cuff syndrome (Resolved 08/01/09) Shingles (Resolved) Smoker (Resolved 06/30/16) 01/17/17 1-2 cig/wk Spinal stenosis of lumbar region (Chronic 02/15/16) Spinal stenosis of lumbar region at multiple levels Tarsal tunnel syndrome (Resolved) 06/11/13 Tarsal tunnel syndrome (Resolved 06/11/13) Trochanteric bursitis (Resolved) 03/18/13 Upper respiratory tract infection (Resolved 08/03/15) Vitamin D deficiency Vitamin D deficiency (Resolved) Social History (Updated 07/19/19 @ 11:45 by Vonnie Tidwell RN) Smoking/Tobacco Use Status: Current every day Tobacco: How many years used: 20 Alcohol Intake: current Alcohol Intake frequency: a few times a week Drug use: Never Substance use type: does not use Household members: other Details: 2 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 Pets and animals: Yes Pets and animals: cat(s), dog(s) and horse(s) What type of physical activity do you participate in: none Saniya/Cheondoism: Oriental Orthodox Special saniya needs: No Do you feel safe at home: Yes Do you feel safe in your relationship?: Yes Meds Home Medications and Allergies Home Medications Medication Instructions Recorded Confirmed Type cyanocobalamin (vitamin B-12) 1,000 mcg PO DAILY #100 tab 02/16/17 07/19/19 Rx [Vitamin B-12] folic acid 1 mg tablet 1 mg PO DAILY #90 tab 05/21/18 07/19/19 Rx atorvastatin 40 mg tablet 40 mg PO DAILY #90 tab-cap 06/14/18 07/19/19 Rx duloxetine 60 mg capsule,delayed 60 mg PO DAILY #90 tab-cap 06/14/18 07/19/19 Rx release allopurinol 100 mg tablet 100 mg PO DAILY #90 tab-cap 08/09/18 07/19/19 Rx gabapentin 600 mg tablet 600 mg PO TID #270 tab-cap 08/09/18 07/19/19 Rx glipizide 10 mg tablet, extended 10 mg PO DAILY #90 tab-cap 08/09/18 07/19/19 Rx release 24 hr nystatin 100,000 unit/gram topical 1 applic TOPICAL BID PRN #30 gm 12/04/18 07/19/19 Rx cream meclizine 12.5 mg tablet 25 mg PO TID PRN #60 tab 12/17/18 07/19/19 Rx blood sugar diagnostic #100 each 12/18/18 07/19/19 Rx lancets 33 gauge #100 each 12/18/18 07/19/19 Rx pen needle, diabetic 31 gauge x #30 each 12/18/18 07/19/19 Rx 1/4 magnesium hydroxide [Milk of 30 ml PO PRN PRN 01/15/19 07/19/19 History Magnesia] polyethylene glycol 3350 [Miralax] 1 g PO PRN PRN 01/15/19 07/19/19 History ropinirole [Requip] 2 mg PO QPM PRN 01/15/19 07/19/19 History acetaminophen [Tylenol Extra 1,000 mg PO Q8H PRN PRN #0 tab 01/22/19 07/19/19 Rx Strength] aspirin [Aspir-81] 81 mg PO DAILY #30 tab 01/22/19 07/19/19 Rx calcium carbonate-vitamin D3 2 tab PO BID #60 tab 01/22/19 07/19/19 Rx [Calcium 600 + D(3)] lancets 25 gauge #100 each 01/29/19 07/19/19 Rx ergocalciferol (vitamin D2) 50,000 50,000 unit PO M-W-F #36 tab-cap 01/30/19 07/19/19 Rx unit capsule albuterol sulfate 2.5 mg INHALATION Q2H PRN PRN #0 ml 02/12/19 07/19/19 Rx diltiazem HCl 120 mg 240 mg PO DAILY #180 cap 02/21/19 07/19/19 Rx capsule,extended release 24 hr omeprazole 80 mg PO BID 03/03/19 07/19/19 History sitagliptin 100 mg tablet 100 mg PO DAILY #90 tab 03/26/19 07/19/19 Rx potassium chloride 20 mEq 20 meq PO BID #180 tab 04/22/19 07/19/19 Rx tablet,extended release(part/cryst) epinephrine 0.3 mg/0.3 mL 0.3 mg IM ONCE #2 dose 04/29/19 07/19/19 Rx injection, auto-injector lorazepam 1 mg tablet 1 mg PO BID PRN #10 tab 05/01/19 07/19/19 Rx budesonide-formoterol HFA 160 2 puff IH BID #10.2 gm 05/21/19 07/19/19 Rx mcg-4.5 mcg/actuation aerosol inhaler metoprolol succinate 50 mg 25 mg PO DAILY #90 tab 05/24/19 07/19/19 Rx tablet,extended release 24 hr bumetanide 2 mg tablet 2 mg PO DAILY #30 tab 06/19/19 07/19/19 Rx estradiol 1 gm VG DAILY #42.5 gm 07/01/19 07/19/19 Rx tramadol 50 mg tablet 50 mg PO BID PRN #60 tab 07/09/19 07/19/19 Rx Victoza 2-Erick 1.8 mg SC QHS 07/19/19 07/19/19 History Allergies Allergy/AdvReac Type Severity Reaction Status Date / Time venom-honey bee Allergy Severe ANAPHYLAXIS Verified 07/19/19 11:41 adhesive Allergy BLISTERS Verified 07/19/19 11:41 Exam Const General: cooperative, healthy appearing, comfortable and no acute distress Nutritional Appearance: obese Orientation: alert, awake and oriented x3 HENMT Head: normal to inspection and normocephalic Face and sinus: normal facial exam Eyes General: appearance normal, both eyes and all related structures Conjunctivae: conjunctivae normal Pupils: PERRL EOM: EOM intact bilaterally Neck Neck: normal visual inspection, full ROM and no lymphadenopathy Thyroid: thyroid normal Lymphatic: no lymphadenopathy noted Chest Chest: other Other: healed scar line to mid chest from CABG, Resp Effort & Inspection: normal respiratory effort and able to speak in complete sentences Auscultation: crackles (lower bases) bilaterally Cardio Jugular venous pressure: no JVD Heart Sounds: S1 normal and S2 normal GI Inspection: normal to inspection, large pannus and obesity Palpation: soft Auscultation: normal bowel sounds General: deferred Back/Spine/Pelvis Back: no CVA tenderness Thoracic/Lumbar Spine: thoracic and lumbar spine normal to inspection Skin General skin exam: erythema Rashes: no rashes Wounds: no wounds Neuro General: alert, awake and oriented x3 Cognition: normal cognition Speech: speech normal Extrem General: full ROM and no clubbing, cyanosis or edema Right lower extremity: edema and lower leg (+ 2 pitting edema) Psych Appearance: grossly normal Speech and Movement: speech and movement normal Mood: congruent mood Affect: normal affect Attitude: cooperative Results Labs Result diagrams: 07/19/19 14:03 07/19/19 14:03 Labs: Laboratory Results - last 24 hr 07/19/19 07/19/19 07/19/19 14:03 14:03 14:03 WBC 9.46 RBC 4.14 Hgb 10.4 L Hct 34.9 L MCV 84.3 MCH 25.1 L MCHC 29.8 L RDW 17.0 H Plt Count 476 H MPV 9.3 Immature Gran % 0.3 Neutrophils % 62.0 Lymphocytes % 20.5 Monocytes % 7.8 Eosinophils % 8.2 Basophils % 1.2 Absolute Neutrophils 5.86 Absolute Lymphocytes 1.94 Absolute Monocytes 0.74 H Absolute Eosinophils 0.78 H Absolute Basophils 0.11 Sodium 142 Potassium 3.9 Chloride 102 Carbon Dioxide 31.9 Anion Gap 8.1 BUN 30 H Creatinine 1.98 H Estimated GFR/1.73 m2 25.22 Glucose 137 H Calcium 8.9 Magnesium 1.3 L Total Bilirubin 0.3 Conjugated Bilirubin 0.10 AST 13 L ALT 23 Alkaline Phosphatase 70 Troponin I < 0.05 Total Protein 7.1 Albumin 3.2 L
[2019-07-19] MEDS: Heparin 5,000 UNITS/ML VIAL 5000 UNITS SC ×2 (17:43→23:04)
[2019-07-19] MEDS: MAGNESIUM SULFATE 4 GM/100 ML BAG IVPB (17:44)
[2019-07-19 19:01] LABS: NT-proBNP 640 pg/mL
[2019-07-19 19:03] LABS: Troponin I < 0.05 ng/mL (0.00-0.06)
[2019-07-19] MEDS: Gabapentin 600 MG TAB PO (19:25)
[2019-07-19] MEDS: Calcium 600mg/Vit D 200U TAB 2 TAB PO (19:25)
[2019-07-19] MEDS: Potassium Chloride 20 MEQ TABCR PO (19:25)
[2019-07-19] MEDS: rOPINIRole 1 MG TAB 2 MG PO (19:29)
[2019-07-19] MEDS: Budesonide/Formoterol 160/4.5 6 GM 60 PUFF INH IH (22:46)
[2019-07-19] MEDS: traMADol 50 MG TAB PO (23:04)
[2019-07-20] VITALS (11 sets, daily range): BP systolic 108–147; BP diastolic 64–73; PULSE 62–77; RESP 18–21; TEMP 36.4–36.8; O2SAT 94–97
[2019-07-20 07:29] LABS: Abs Immature Grans 0.04 k/cumm (0.0-0.09); Absolute Eosinophil Count 0.73 k/cumm (0.0-0.7); Absolute Lymphocyte Count 2.05 k/cumm (1.2-3.4); Absolute Monocyte Count 0.66 k/cumm (0.11-0.7); Absolute Neutrophil Count 4.71 k/cumm (1.2-6.7); Basophils % 1.2; Eosinophils % 8.8; HCT 33.8 % (36.0-46.0); HGB 9.8 g/dL (12.0-15.5); Immature Grans % 0.5; Lymphocytes % 24.7; Mean Corpuscular Hemoglobin 24.6 pg (27.0-33.0); Mean Corpuscular Volume 84.7 fL (80-95); Mean Platelet Volume 9.1 fL (8.0-11.0); Neutrophils % 56.8; Platelet Count 452 x1000/uL (130-400); RBC 3.99 m/cumm (4.00-5.20); RBC Distribution Width 16.8 % (11.7-14.6); White Blood Cell Count 8.29 k/cumm (4.4-10.8)
[2019-07-20 07:51] LABS: Anion Gap 6.4 mmol/L (3-11); BUN 27 mg/dL (7-18); CO2 33.6 mmol/L (21.0-32.0); CREATININE 1.92 mg/dL (0.55-1.02); Calcium 8.9 mg/dL (8.5-10.1); Chloride 105 mmol/L (98-107); Estimated GFR 26.13 (mL/min/1.73m2); Glucose 128 mg/dL (70-100); Magnesium 2.3 mg/dL (1.8-2.4); Potassium 3.7 mmol/L (3.5-5.1); Sodium 145 mmol/L (136-145); TSH (W/Ref FT4) 1.01 uIU/mL (0.36-3.74)
[2019-07-20 08:11] LABS: Anisocytosis 1+; Diff Comment RBC Morph Reviewed; Hypochromasia 1+
--- NOTE | 2019-07-20 08:20 | DI.RAD_ITS ---
EXAM: XR CHEST 2V PA LATERAL INDICATION: CHF, SOB. COMPARISON: XR CHEST 2V PA LATERAL from 02/12/2019 TECHNIQUE: 2D digital imaging was performed. FINDINGS: The heart size and pulmonary vasculature are within normal limits. Lungs are hyperinflated consistent with underlying COPD. The left lung base has improved compared to the prior examination. There may be a small infiltrate which persists in the left lower lobe. No pleural effusion or pneumothorax is present. There are again seen postsurgical changes in the lower cervical and upper thoracic spine. Sternotomy wires are stable. Surgical clips in the mediastinum are again noted. Degenerative changes are seen in the spine. IMPRESSION: Question of a small infiltrate in the left lung base. This may represent atelectasis or pneumonia.
--- NOTE | 2019-07-20 08:25 | DI.VRAD_ITS ---
PROCEDURE INFORMATION: Exam: XR Chest, 2 Views Exam date and time: 07/20/2019 8:18 AM Clinical history: 68 years old, female; Shortness of breath; Patient HX: Chf, SOB TECHNIQUE: Imaging protocol: XR of the chest Views: 2 views. COMPARISON: CR XR CHEST 2V PA LATERAL 02/12/2019 8:09 AM FINDINGS: Lungs: Hyperexpanded lung chan consistent with COPD. . Mild opacities at in the left lower lobe Pleural space: Unremarkable. No pleural effusion. No pneumothorax. Heart/Mediastinum: Unremarkable. No cardiomegaly. Bones/joints: Plate and screws in the cervical spine Median sternotomy IMPRESSION: Hyperexpanded lung chan consistent with COPD. Mild opacities in the left lower lobe may represent atelectasis or pneumonia. Dictated and Authenticated by: Mason Luciano MD. Ordering:ZACHARIAH Montiel MD
[2019-07-20] MEDS: Gabapentin 600 MG TAB PO ×3 (08:49→19:24)
[2019-07-20] MEDS: DULoxetine 30 MG CAP 60 MG PO (08:49)
[2019-07-20] MEDS: Calcium 600mg/Vit D 200U TAB 2 TAB PO ×2 (08:50→19:24)
[2019-07-20] MEDS: Potassium Chloride 20 MEQ TABCR PO ×3 (08:50→19:25)
[2019-07-20] MEDS: Folic Acid 1 MG TAB PO (08:50)
[2019-07-20] MEDS: SITagliptin 100 MG TAB PO (08:50)
[2019-07-20] MEDS: Omeprazole 20 MG CAPCR 80 MG PO ×2 (08:50→19:24)
[2019-07-20] MEDS: Atorvastatin 40 MG TAB PO (08:50)
[2019-07-20] MEDS: Aspirin E.C. 81 MG TABEC PO (08:50)
[2019-07-20] MEDS: dilTIAZem CD 120 MG CAPCR 240 MG PO (08:50)
[2019-07-20] MEDS: Allopurinol 100 MG TAB PO (08:50)
[2019-07-20] MEDS: Cyanocobalamin 500 MCG TAB 1000 MCG PO (08:50)
[2019-07-20] MEDS: Metoprolol CR 25 MG TABCR PO (08:50)
[2019-07-20] MEDS: Heparin 5,000 UNITS/ML VIAL 5000 UNITS SC ×3 (08:50→23:39)
[2019-07-20] MEDS: Insulin Aspart 300 UNITS/3 ML PEN SC ×3 (08:51→16:49)
[2019-07-20] MEDS: guaiFENesin 600 MG TABCR PO ×2 (09:30→19:25)
[2019-07-20] MEDS: Budesonide/Formoterol 160/4.5 6 GM 60 PUFF INH IH ×2 (10:36→19:24)
--- NOTE | 2019-07-20 12:26 | PHARADMIT ---
Admission Pharmacy Clinical Review ACUTE on Chronic Diastolic CHF, Pulmonary hypertension Code Status Full Code Current Weight Wgt-123.8 kg Renally Cleared and Narrow Therapeutic Index Meds CrCl~ 31.1 mL/min Meds-OK QTc Value / Action Taken QTc-439 na BP Control, Fever BP-123/72 Tmax- 36.8C Electrolytes reviewed Na- 145 K+3.7 Mag-2.3 DVT Prophylaxis asa, Heparin-SC Opiate Usage / Scheduled Bowel Regimen Ordered Tramadol, Yes Plt/SCr for Heparin / Enoxaparin Plts-452 SCr-1.92 INR for Warfarin NA H/H stable, WBC/Bands H&H- 9.8/33.8 WBC- 8.29 Antibiotic appropriateness none Cultures and Sensitivities none Surgical ABX d/c within 24 hr NA DM control / Insulin Dosing BG-128 Aspart, Sitagliptin Heart Failure (Check EF%) (MARTIR's, B-Block, Diuretics) Diltiazem-CD, Toprol-XL, on Bumex drip, IV to PO Switch No Home Meds Reviewed Yes Home Meds Not Ordered Xarelto, Ativan, Celebrex, Lasix, Lisinopril, Glipizide, Victoza, EpiPen, Vit-D 50M unit, Advair, TAC Oint Comments Adriana Ho crm
--- NOTE | 2019-07-20 14:51 | W.PM.PROGNOT ---
Date of Service Date of service: 07/20/19 Time of Service: 14:51 Assessment and Plan Assessment and plan (1) Acute on chronic diastolic (congestive) heart failure: Start date: 07/20/19 Start time: 14:59 Status: Acute Assessment and plan: Telemetry revealing SR in the 70's. Wt down from 125.8 kg to 123.6 kg. 116 kg appears to be dry weight. SOB improving. Continue Diuresis with Bumex drip Monitor Renal function, tolerating bumex drip, stable Monitor output-1.8 liters urine today troponins - flat negative CXR with atelectasis vs pneumonia, with hyperexpanded lung chan, afebrile no white count unlikely pneumonia, ICS ordered. (2) PAF (paroxysmal atrial fibrillation): Start date: 07/20/19 Start time: 15:11 Status: Acute Assessment and plan: Controlled at this time. Excision of her Left Atrial Appendage at the time of her CABG. Monitor on teley, Continue cardizem Diuresis for CHF, see above. (3) Hypoxia: Start date: 07/20/19 Start time: 15:12 Status: Acute Assessment and plan: Uses 2 liters at night for sleep, does not use Cpap or bipap. Continue 2 liters for HS Breathing has improved with drip diuresising see above. (4) Pulmonary hypertension: Start date: 07/20/19 Start time: 15:12 Status: Chronic Assessment and plan: see above. (5) CKD (chronic kidney disease) stage 3, GFR 30-59 ml/min: Start date: 07/20/19 Start time: 15:12 Status: Chronic Assessment and plan: Elevated Creatinine but stable slightly improved Continue to monitor. On diuresis. (6) S/P CABG (coronary artery bypass graft): Start date: 07/20/19 Start time: 15:13 Status: Chronic Assessment and plan: In december 2018. No CP, healing scar to chest. Regular rate and rhythm. Monitor on teley. Continue HTN medications Cardizem Statin Asa. (7) Diabetes mellitus: Start date: 07/20/19 Start time: 15:13 Status: Chronic Assessment and plan: 128 glucose by labs. Takes victozia, daughter is bringing from home, Hold glipizide while in the hospital, continue januvia Fingerstick at with SSI sensitive and monitor. Carb counting diet. Qualifiers: Diabetes mellitus type: type 2 Diabetes mellitus long term care pharmacist insulin use: without senior living use Diabetes mellitus complication status: with kidney complications Diabetes mellitus complication detail: with chronic kidney disease (8) Hyperlipidemia: Start date: 07/20/19 Start time: 15:15 Status: Chronic Assessment and plan: Continue statin (9) Gout: Start date: 07/20/19 Start time: 15:15 Status: Chronic Assessment and plan: Continue allopurinol (10) Essential hypertension: Start date: 07/20/19 Start time: 15:15 Status: Chronic Assessment and plan: Monitor bp q 4 hours. Metoprolol 25 mg daily continue (11) Macrocytic anemia: Start date: 07/20/19 Start time: 15:15 Status: Chronic Assessment and plan: Stable at this time at 10.4 and 34.9. Target range for patient with history of CABG is 10 hemoglobin. Continue to monitor h/h, on folic acid, vitamin B (12) Hypomagnesemia: Start date: 07/20/19 Start time: 15:16 Status: Acute Assessment and plan: Improved 2.3 today Recheck level in am. Above case was discussed with Dr. Cornell who is in agreement. Subjective Subjective Patient reports: no new complaints Interval history since last seen: Patient is feeling better. Up and moving around room. Less SOB. Wt is down from 125.8 to 123.8 kg. Patient dry wt appears to be 116 kg. Will continue drip overnight and evaluate in am. Exam Const General: cooperative, healthy appearing, comfortable and no acute distress Nutritional Appearance: obese Orientation: alert, awake and oriented x3 HENMT Head: normal to inspection and normocephalic Face and sinus: normal facial exam Eyes General: appearance normal, both eyes and all related structures Conjunctivae: conjunctivae normal Pupils: PERRL EOM: EOM intact bilaterally Neck Neck: normal visual inspection, full ROM and no lymphadenopathy Thyroid: thyroid normal Lymphatic: no lymphadenopathy noted Chest Chest: other Resp Effort & Inspection: normal respiratory effort and able to speak in complete sentences Auscultation: crackles (fine crackles to left lower base. ) on the left and diminished lung sounds bilaterally Cardio Jugular venous pressure: no JVD Heart Sounds: S1 normal and S2 normal GI Inspection: normal to inspection, large pannus and obesity Palpation: soft Auscultation: normal bowel sounds General: deferred Back/Spine/Pelvis Back: no CVA tenderness Thoracic/Lumbar Spine: thoracic and lumbar spine normal to inspection Skin General skin exam: erythema Rashes: no rashes Wounds: no wounds Neuro General: alert, awake and oriented x3 Cognition: normal cognition Speech: speech normal Extrem General: full ROM and edema (rt greater than left a +2, left 1+) Laterality: bilateral Right lower extremity: edema and lower leg (+ 2 pitting edema) Psych Appearance: grossly normal Speech and Movement: speech and movement normal Mood: congruent mood Affect: normal affect Attitude: cooperative Objective Objective Clinical Data: Abnormal lab results 07/19/19 07/19/19 07/19/19 Range/Units 14:03 14:03 18:15 RBC (4.00-5.20) m/cumm Hgb (12.0-15.5) g/dL Hct (36.0-46.0) % MCH (27.0-33.0) pg MCHC (32.0-36.0) g/dL RDW (11.7-14.6) % Plt Count (130-400) x1000/uL Absolute Eosinophils (0.0-0.7) k/cumm Carbon Dioxide (21.0-32.0) mmol/L BUN 30 H (7-18) mg/dL Creatinine 1.98 H (0.55-1.02) mg/dL Glucose 137 H (70-100) mg/dL Magnesium 1.3 L (1.8-2.4) mg/dL AST 13 L (15-37) U/L NT-Pro-B Natriuret Pep 640 H ( - 299) pg/mL Albumin 3.2 L (3.4-5.0) g/dL 07/20/19 07/20/19 Range/Units 06:35 06:35 RBC 3.99 L (4.00-5.20) m/cumm Hgb 9.8 L (12.0-15.5) g/dL Hct 33.8 L (36.0-46.0) % MCH 24.6 L (27.0-33.0) pg MCHC 29.0 L (32.0-36.0) g/dL RDW 16.8 H (11.7-14.6) % Plt Count 452 H (130-400) x1000/uL Absolute Eosinophils 0.73 H (0.0-0.7) k/cumm Carbon Dioxide 33.6 H (21.0-32.0) mmol/L BUN 27 H (7-18) mg/dL Creatinine 1.92 H (0.55-1.02) mg/dL Glucose 128 H (70-100) mg/dL Magnesium (1.8-2.4) mg/dL AST (15-37) U/L NT-Pro-B Natriuret Pep ( - 299) pg/mL Albumin (3.4-5.0) g/dL Vital Signs Temperature 36.6 C 07/20/19 12:28 Temperature Source Tympanic 07/20/19 12:28 Pulse 77 07/20/19 12:28 Pulse Rhythm Regular 07/20/19 10:32 Respiratory Rate 21 07/20/19 12:28 Respiratory Effort 07/20/19 10:32 Respiratory Depth Deep 07/20/19 10:32 Respiratory Pattern Normal 07/20/19 10:32 Blood Pressure 110/72 07/20/19 12:28 Pulse Oximetry 94 L 07/20/19 12:28 Oxygen Delivery Method Room Air 07/20/19 12:28 Oxygen Flow Rate 0 07/20/19 12:28 Pain Level 0 07/20/19 12:28 Comment 07/20/19 08:05 Intake & Output 07/19/19 07/20/19 07/20/19 23:59 11:59 23:59 Intake Total 240 / 240 880 / 1120 240 / 1120 Output Total 1150 / 1150 2100 / 2350 250 / 2350 Balance -910 / -910 -1220 / -1230 -10 / -1230 Weight 125.8 kg 123.8 kg Intake: Oral 240 / 240 880 / 1120 240 / 1120 Output: Urine 1150 / 1150 2100 / 2350 250 / 2350 Other: Urine Color Pale Yellow Yellow Yellow Urine Appearance Clear Clear Clear Urine Odor None Normal Normal Comment Void x2. Stool Size Copious Stool Characteristics Soft Brown Voiding Methods Bedside Commode Bedside Commode Toilet Laboratory Results WBC 8.29 k/cumm (4.4-10.8) 07/20/19 06:35 RBC 3.99 m/cumm (4.00-5.20) L 07/20/19 06:35 Hgb 9.8 g/dL (12.0-15.5) L 07/20/19 06:35 Hct 33.8 % (36.0-46.0) L 07/20/19 06:35 MCV 84.7 fL (80-95) 07/20/19 06:35 MCH 24.6 pg (27.0-33.0) L 07/20/19 06:35 MCHC 29.0 g/dL (32.0-36.0) L 07/20/19 06:35 RDW 16.8 % (11.7-14.6) H 07/20/19 06:35 Plt Count 452 x1000/uL (130-400) H 07/20/19 06:35 MPV 9.1 fL (8.0-11.0) 07/20/19 06:35 Immature Gran % 0.5 07/20/19 06:35 Neutrophils % 56.8 07/20/19 06:35 Lymphocytes % 24.7 07/20/19 06:35 Monocytes % 8.0 07/20/19 06:35 Eosinophils % 8.8 07/20/19 06:35 Basophils % 1.2 07/20/19 06:35 Absolute Neutrophils 4.71 k/cumm (1.2-6.7) 07/20/19 06:35 Absolute Lymphocytes 2.05 k/cumm (1.2-3.4) 07/20/19 06:35 Absolute Monocytes 0.66 k/cumm (0.11-0.7) 07/20/19 06:35 Absolute Eosinophils 0.73 k/cumm (0.0-0.7) H 07/20/19 06:35 Absolute Basophils 0.10 k/cumm (0.0-0.2) 07/20/19 06:35 Differential Comment Rbc morph reviewed 07/20/19 06:35 RBC Morphology See below 07/20/19 06:35 Hypochromasia 1+ 07/20/19 06:35 Anisocytosis 1+ 07/20/19 06:35 Sodium 145 mmol/L (136-145) 07/20/19 06:35 Potassium 3.7 mmol/L (3.5-5.1) 07/20/19 06:35 Chloride 105 mmol/L (98-107) 07/20/19 06:35 Carbon Dioxide 33.6 mmol/L (21.0-32.0) H 07/20/19 06:35 Anion Gap 6.4 mmol/L (3-11) 07/20/19 06:35 BUN 27 mg/dL (7-18) H 07/20/19 06:35 Creatinine 1.92 mg/dL (0.55-1.02) H 07/20/19 06:35 Estimated GFR/1.73 m2 26.13 (mL/min/1.73m2) 07/20/19 06:35 Glucose 128 mg/dL (70-100) H 07/20/19 06:35 Calcium 8.9 mg/dL (8.5-10.1) 07/20/19 06:35 Magnesium 2.3 mg/dL (1.8-2.4) 07/20/19 06:35 Total Bilirubin 0.3 mg/dL (0.2-1.0) 07/19/19 14:03 Conjugated Bilirubin 0.10 mg/dL (0.00-0.20) 07/19/19 14:03 AST 13 U/L (15-37) L 07/19/19 14:03 ALT 23 U/L (14-59) 07/19/19 14:03 Alkaline Phosphatase 70 U/L (46-116) 07/19/19 14:03 Troponin I < 0.05 ng/mL (0.00-0.06) 07/19/19 18:15 NT-Pro-B Natriuret Pep 640 pg/mL (-299) H 07/19/19 18:15 Total Protein 7.1 g/dL (6.4-8.2) 07/19/19 14:03 Albumin 3.2 g/dL (3.4-5.0) L 07/19/19 14:03 TSH 1.01 uIU/mL (0.36-3.74) 07/20/19 06:35
--- NOTE | 2019-07-20 17:33 | INITIAL_ITS ---
Care Management Initial Assess REASON FOR HOSPITALIZATION:: Acute on Chronic Diastolic CHF, Pulmonary Hypertension PAST MEDICAL HISTORY/PAST SURGICAL HISTORY:: Abnormal mammography (Resolved)08/10/06, Acute diastolic CHF (congestive heart failure) (Chronic), Anemia (Chronic), Ankle pain (Resolved 03/13/14), Atrial fibrillation (Chronic)paroxysmal, onset 2015, anticoagulated w/ Xarelto; anticoagulation discontinued after left atrial appendage excision 01/03/2019, Atrial fibrillation, Atrial flutter (Inactive),Carpal tunnel syndrome (Resolved 08/10/06), BILATERAL R S/P SURGERY Cervical disc disorder with myelopathy (Resolved 08/21/08) S/P surgery x 2, Cervical spondylosis with myelopathy, Chest pain (Resolved), Neg Stress test, Chronic obstructive lung disease (Chronic), 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), CKD (chronic kidney disease) stage 3, GFR 30-59 ml/min (Chronic), Cr about 2.5, Constipation (Inactive), Diabetes mellitus (Chronic), Diabetes mellitus (Resolved), 09/20/10 Positive Microalbumin. Essential hypertension (Chronic), Folate deficiency (Resolved 02/15/16) Gout (Chronic 07/06/11), Gram- positive bacteremia (Resolved), HAP (hospital-acquired pneumonia) (Resolved 01/15/19), HCAP (healthcare-associated pneumonia) (Resolved), Hepatomegaly (Resolved) 06/10/04, Hip joint inflamed (Resolved 09/03/15), Hip pain, left (Chronic), Hip pain, right (chronic), Hyperlipidemia (Chronic 08/10/00), Hypertension, Hypoxia (Inactive), Low back pain (Resolved 04/10/03), DISC HERNIATION L4. MULTILEVEL DJD/SPINAL STENOSIS BY MRI; S/P surgery, Lump in neck (Resolved), Menopausal syndrome (Resolved)07/11/03, Muscle fatigue Resolved) 03/04/13, PAF (paroxysmal atrial fibrillation) (Acute), Posterior tibial tendon dysfunction (Resolved) 02/03/16, Postmenopausal bleeding (Resolved), neg. endometrial biopsy, Postoperative wound dehiscence (Resolved 12/23/15), Primary osteoarthritis of left hip Resolved (09/17/15),Pulmonary hypertension (Chronic), Renal impairment (Resolved 07/11/03), ADRENAL MASS. F/U W/ KINLAW, positive microalbumin, Restless leg syndrome (Chronic), Rotator cuff syndrome (Resolved 08/01/09), Shingles (Resolved),Smoker (Resolved 06/30/16), 01/17/17 1-2 cig/wk, Spinal stenosis of lumbar region (Chronic 02/15/16), Spinal stenosis of lumbar region at multiple levels,Tarsal tunnel syndrome (Resolved)06/11/13, Tarsal tunnel syndrome (Resolved 06/11/13), Trochanteric bursitis (Resolved)03/18/13. Upper respiratory tract infection (Resolved 08/03/15), Vitamin D deficiency. Vitamin D deficiency (Resolved) PREVIOUS FUNCTIONAL STATUS/SOCIAL/FAMILY SUPPORTS:: Lives with her daughter, Savannah, and grandchildren at their house in [place]. They have 4 dogs, 6 cats, one horse and a fefew rabbits and guinea pigs. Usually self manages very well b ut the fluid build up seemed to catch up with her all at once. She has been active at home cleaning up things and gettiing ready for winter. CURRENT FUNCTIONAL STATUS:: Sitting up watching TV. Says she is starting to feel better and some of the fluid weight has already been removed. ADVANCE DIRECTIVES:: On file including [facility]. Daughter Bree Concepcion is named as agent. Has patient been provided with information about the portal?: Yes Did the patient sign up for the portal?: No CODE STATUS:: Full Code INSURANCE COVERAGE / FINANCIAL ISSUES:: BC/BS Other CURRENT HOME/COMMUNITY SERVICES/EQUIPMENT:: HH Services for Nursing, Home O2 PRIMARY CARE PHYSICIAN:: [facility] medical: Laisha Mcmahon MD POTENTIAL DISCHARGE NEEDS:: F/U Appointments PATIENT/FAMILY EDUCATION NEEDS:: Discharge instructions ANTICIPATED BARRIERS TO DISCHARGE:: None identified TRANSPORTATION:: Family will transport PLAN:: Ann-Marie will return home when medically cleared for discharge and resume her HH services. Family will transport.
[2019-07-20] MEDS: rOPINIRole 1 MG TAB 2 MG PO (20:12)
[2019-07-20] MEDS: traMADol 50 MG TAB PO (22:23)
[2019-07-21] VITALS (10 sets, daily range): BP systolic 100–122; BP diastolic 62–87; PULSE 59–77; RESP 16–20; TEMP 35.5–36.7; O2SAT 94–97
[2019-07-21 07:40] LABS: Abs Immature Grans 0.03 k/cumm (0.0-0.09); Absolute Basophil Count 0.09 k/cumm (0.0-0.2); Absolute Eosinophil Count 0.76 k/cumm (0.0-0.7); Absolute Lymphocyte Count 2.24 k/cumm (1.2-3.4); Absolute Neutrophil Count 4.98 k/cumm (1.2-6.7); Eosinophils % 8.5; HCT 32.7 % (36.0-46.0); HGB 9.6 g/dL (12.0-15.5); Immature Grans % 0.3; Lymphocytes % 25.2; Mean Corp. HGB Concentration 29.4 g/dL (32.0-36.0); Mean Corpuscular Hemoglobin 24.7 pg (27.0-33.0); Mean Corpuscular Volume 84.3 fL (80-95); Mean Platelet Volume 9.1 fL (8.0-11.0); Platelet Count 454 x1000/uL (130-400); RBC 3.88 m/cumm (4.00-5.20); RBC Distribution Width 16.7 % (11.7-14.6)
[2019-07-21 07:45] LABS: BUN 34 mg/dL (7-18); CREATININE 1.93 mg/dL (0.55-1.02); Calcium 9.1 mg/dL (8.5-10.1); Chloride 105 mmol/L (98-107); Estimated GFR 25.97 (mL/min/1.73m2); Glucose 133 mg/dL (70-100); Magnesium 1.8 mg/dL (1.8-2.4); Sodium 143 mmol/L (136-145)
[2019-07-21] MEDS: Budesonide/Formoterol 160/4.5 6 GM 60 PUFF INH IH ×2 (08:22→19:36)
[2019-07-21] MEDS: Omeprazole 20 MG CAPCR 80 MG PO ×2 (08:31→19:37)
[2019-07-21] MEDS: Heparin 5,000 UNITS/ML VIAL 5000 UNITS SC ×2 (08:31→16:58)
[2019-07-21] MEDS: guaiFENesin 600 MG TABCR PO ×2 (08:32→19:37)
[2019-07-21] MEDS: dilTIAZem CD 120 MG CAPCR 240 MG PO (08:32)
[2019-07-21] MEDS: Atorvastatin 40 MG TAB PO (08:32)
[2019-07-21] MEDS: Calcium 600mg/Vit D 200U TAB 2 TAB PO ×2 (08:32→19:37)
[2019-07-21] MEDS: Aspirin E.C. 81 MG TABEC PO (08:32)
[2019-07-21] MEDS: Allopurinol 100 MG TAB PO (08:32)
[2019-07-21] MEDS: DULoxetine 30 MG CAP 60 MG PO (08:32)
[2019-07-21] MEDS: Potassium Chloride 20 MEQ TABCR PO ×2 (08:32→19:37)
[2019-07-21] MEDS: Gabapentin 600 MG TAB PO ×3 (08:32→19:37)
[2019-07-21] MEDS: SITagliptin 100 MG TAB PO (08:32)
[2019-07-21] MEDS: Cyanocobalamin 500 MCG TAB 1000 MCG PO (08:33)
[2019-07-21] MEDS: Folic Acid 1 MG TAB PO (08:33)
[2019-07-21] MEDS: Metoprolol CR 25 MG TABCR PO (08:33)
[2019-07-21] MEDS: Magnesium Oxide 400 MG TAB PO (11:36)
[2019-07-21] MEDS: Bumetanide 1 MG TAB 2 MG PO (11:36)
[2019-07-21] MEDS: Bumetanide 1 MG TAB PO (12:41)
[2019-07-21] MEDS: Insulin Aspart 300 UNITS/3 ML PEN SC ×2 (12:44→16:55)
--- NOTE | 2019-07-21 13:15 | PGE_ITS ---
Date of Service Date of service: 07/21/19 Time of Service: 13:15 Assessment and Plan Assessment and plan (1) Acute on chronic diastolic (congestive) heart failure: Start date: 07/21/19 Start time: 13:24 Status: Acute Assessment and plan: Improving. 2200 urine output overnight. Transition to PO Bumex 3 mg. Monitor overnight. Possible discharge in am (2) PAF (paroxysmal atrial fibrillation): Start date: 07/21/19 Start time: 13:26 Status: Acute Assessment and plan: Controlled at this time. Excision of her Left Atrial Appendage at the time of her CABG. Monitor on teley, Continue cardizem Diuresis for CHF, see above. (3) Hypoxia: Start date: 07/21/19 Start time: 13:26 Status: Acute Assessment and plan: Improved. No SOB at this time. Continue 2 L at hs (4) Pulmonary hypertension: Start date: 07/21/19 Start time: 13:26 Status: Chronic Assessment and plan: see above. (5) CKD (chronic kidney disease) stage 3, GFR 30-59 ml/min: Start date: 07/21/19 Start time: 13:27 Status: Chronic Assessment and plan: Elevated Creatinine but stable Continue to monitor. On diuresis. (6) S/P CABG (coronary artery bypass graft): Start date: 07/21/19 Start time: 13:27 Status: Chronic Assessment and plan: In december 2018. No CP, healing scar to chest. Regular rate and rhythm. Monitor on teley. Continue HTN medications Cardizem Statin Asa. (7) Diabetes mellitus: Start date: 07/21/19 Start time: 13:27 Status: Chronic Assessment and plan: Fingerstick 190 Hold glipizide while in the hospital, continue januvia, victoza Carb counting diet. 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: without halfway use Diabetes mellitus complication status: with kidney complications Diabetes mellitus complication detail: with chronic kidney disease (8) Hyperlipidemia: Start date: 07/21/19 Start time: 13:28 Status: Chronic Assessment and plan: Continue statin (9) Essential hypertension: Start date: 07/21/19 Start time: 13:28 Status: Chronic Assessment and plan: Monitor bp q 4 hours. Metoprolol 25 mg daily continue (10) Macrocytic anemia: Start date: 07/21/19 Start time: 13:29 Status: Chronic Assessment and plan: Stable at this time. Monitor tomorrow, H/H down to 9.6 from 11.1 on admission. Could be dilutional will recheck in am. Target range for patient with history of CABG is 10 hemoglobin. Continue to monitor h/h, on folic acid, vitamin B (11) Hypomagnesemia: Start date: 07/21/19 Start time: 13:30 Status: Acute Assessment and plan: 1.8 today, continue to monitor. Recheck level in am. Above case was discussed with Dr. Cornell who is in agreement. Subjective Subjective Patient reports: feels better Interval history since last seen: Symptoms improving. Sob has improved, edema improved. Patient states she feels great. Transitioned to PO bumex will monitor overnight. Possible discharge in am. Exam Const General: cooperative, healthy appearing, comfortable and no acute distress Nutritional Appearance: obese Orientation: alert, awake and oriented x3 HENMT Head: normal to inspection and normocephalic Face and sinus: normal facial exam Eyes General: appearance normal, both eyes and all related structures Conjunctivae: conjunctivae normal Pupils: PERRL EOM: EOM intact bilaterally Neck Neck: normal visual inspection, full ROM and no lymphadenopathy Thyroid: thyroid normal Lymphatic: no lymphadenopathy noted Chest Chest: other Resp Effort & Inspection: normal respiratory effort and able to speak in complete sentences Auscultation: clear to auscultation bilaterally Cardio Jugular venous pressure: no JVD Heart Sounds: S1 normal and S2 normal GI Inspection: normal to inspection, large pannus and obesity Palpation: soft Auscultation: normal bowel sounds General: deferred Back/Spine/Pelvis Back: no CVA tenderness Thoracic/Lumbar Spine: thoracic and lumbar spine normal to inspection Skin General skin exam: erythema Rashes: no rashes Wounds: no wounds Neuro General: alert, awake and oriented x3 Cognition: normal cognition Speech: speech normal Extrem General: full ROM and edema (improving Left 1+ edema, Right 1-2+ edema) Laterality: bilateral Right lower extremity: edema and lower leg (+ 2 pitting edema) Psych Appearance: grossly normal Speech and Movement: speech and movement normal Mood: congruent mood Affect: normal affect Attitude: cooperative Objective Objective Clinical Data: Abnormal lab results 07/21/19 07/21/19 Range/Units 06:58 06:58 RBC 3.88 L (4.00-5.20) m/cumm Hgb 9.6 L (12.0-15.5) g/dL Hct 32.7 L (36.0-46.0) % MCH 24.7 L (27.0-33.0) pg MCHC 29.4 L (32.0-36.0) g/dL RDW 16.7 H (11.7-14.6) % Plt Count 454 H (130-400) x1000/uL Absolute Monocytes 0.80 H (0.11-0.7) k/cumm Absolute Eosinophils 0.76 H (0.0-0.7) k/cumm BUN 34 H (7-18) mg/dL Creatinine 1.93 H (0.55-1.02) mg/dL Glucose 133 H (70-100) mg/dL Vital Signs Temperature 36.3 C L 07/21/19 11:34 Temperature Source Tympanic 07/21/19 11:34 Pulse 69 07/21/19 11:34 Pulse Rhythm Regular 07/21/19 12:54 Respiratory Rate 16 07/21/19 11:34 Respiratory Effort Non-Labored 07/21/19 12:54 Respiratory Depth Normal 07/21/19 12:54 Respiratory Pattern Normal 07/21/19 12:54 Blood Pressure 110/62 07/21/19 11:34 Pulse Oximetry 94 L 07/21/19 11:34 Oxygen Delivery Method Room Air 07/21/19 11:34 Oxygen Flow Rate 0 07/21/19 11:34 Pain Level 0 07/21/19 11:34 Comment 07/20/19 08:05 Intake & Output 07/20/19 07/21/19 07/21/19 23:59 11:59 23:59 Intake Total 720 / 1600 Output Total 1100 / 3200 700 / 700 Balance -380 / -1600 -700 / -700 Weight 122.7 kg Intake: Oral 720 / 1600 Output: Urine 1100 / 3200 700 / 700 Other: Urine Color Yellow Pale Yellow Urine Appearance Clear Clear Clear Urine Odor None None Stool Size Copious Stool Characteristics Soft Brown Voiding Methods Bedside Commode Bedside Commode Laboratory Results WBC 8.90 k/cumm (4.4-10.8) 07/21/19 06:58 RBC 3.88 m/cumm (4.00-5.20) L 07/21/19 06:58 Hgb 9.6 g/dL (12.0-15.5) L 07/21/19 06:58 Hct 32.7 % (36.0-46.0) L 07/21/19 06:58 MCV 84.3 fL (80-95) 07/21/19 06:58 MCH 24.7 pg (27.0-33.0) L 07/21/19 06:58 MCHC 29.4 g/dL (32.0-36.0) L 07/21/19 06:58 RDW 16.7 % (11.7-14.6) H 07/21/19 06:58 Plt Count 454 x1000/uL (130-400) H 07/21/19 06:58 MPV 9.1 fL (8.0-11.0) 07/21/19 06:58 Immature Gran % 0.3 07/21/19 06:58 Neutrophils % 56.0 07/21/19 06:58 Lymphocytes % 25.2 07/21/19 06:58 Monocytes % 9.0 07/21/19 06:58 Eosinophils % 8.5 07/21/19 06:58 Basophils % 1.0 07/21/19 06:58 Absolute Neutrophils 4.98 k/cumm (1.2-6.7) 07/21/19 06:58 Absolute Lymphocytes 2.24 k/cumm (1.2-3.4) 07/21/19 06:58 Absolute Monocytes 0.80 k/cumm (0.11-0.7) H 07/21/19 06:58 Absolute Eosinophils 0.76 k/cumm (0.0-0.7) H 07/21/19 06:58 Absolute Basophils 0.09 k/cumm (0.0-0.2) 07/21/19 06:58 Differential Comment Rbc morph reviewed 07/20/19 06:35 RBC Morphology See below 07/20/19 06:35 Hypochromasia 1+ 07/20/19 06:35 Anisocytosis 1+ 07/20/19 06:35 Sodium 143 mmol/L (136-145) 07/21/19 06:58 Potassium 4.0 mmol/L (3.5-5.1) 07/21/19 06:58 Chloride 105 mmol/L (98-107) 07/21/19 06:58 Carbon Dioxide 32.0 mmol/L (21.0-32.0) 07/21/19 06:58 Anion Gap 6.0 mmol/L (3-11) 07/21/19 06:58 BUN 34 mg/dL (7-18) H 07/21/19 06:58 Creatinine 1.93 mg/dL (0.55-1.02) H 07/21/19 06:58 Estimated GFR/1.73 m2 25.97 (mL/min/1.73m2) 07/21/19 06:58 Glucose 133 mg/dL (70-100) H 07/21/19 06:58 Calcium 9.1 mg/dL (8.5-10.1) 07/21/19 06:58 Magnesium 1.8 mg/dL (1.8-2.4) 07/21/19 06:58 Total Bilirubin 0.3 mg/dL (0.2-1.0) 07/19/19 14:03 Conjugated Bilirubin 0.10 mg/dL (0.00-0.20) 07/19/19 14:03 AST 13 U/L (15-37) L 07/19/19 14:03 ALT 23 U/L (14-59) 07/19/19 14:03 Alkaline Phosphatase 70 U/L (46-116) 07/19/19 14:03 Troponin I < 0.05 ng/mL (0.00-0.06) 07/19/19 18:15 NT-Pro-B Natriuret Pep 640 pg/mL (-299) H 07/19/19 18:15 Total Protein 7.1 g/dL (6.4-8.2) 07/19/19 14:03 Albumin 3.2 g/dL (3.4-5.0) L 07/19/19 14:03 TSH 1.01 uIU/mL (0.36-3.74) 07/20/19 06:35
--- NOTE | 2019-07-21 19:35 | PDOC.CMPRO ---
Care Management Progress Note S/O: Ann-Marie was sitting up in her recliner and on the phone with one of her daughters and they were engaged in a lively discussion. A: 68 y.o. female admitted for CHF and pulmonary hypertension P: Ann-Marie will return home when medically cleared for discharge and resume her HH services. Family will transport.
[2019-07-21] MEDS: rOPINIRole 1 MG TAB 2 MG PO (19:54)
[2019-07-22] MEDS: Heparin 5,000 UNITS/ML VIAL 5000 UNITS SC ×2 (00:01→09:16)
[2019-07-22 00:24] VITALS: BP 111/70; PULSE 60; RESP 19; TEMP 36.3; O2SAT 96
[2019-07-22 03:46] VITALS: BP 110/58; PULSE 67; RESP 20; TEMP 36.5; O2SAT 93
[2019-07-22 07:20] VITALS: BP 136/62; PULSE 82; RESP 20; TEMP 36.4; O2SAT 91
[2019-07-22 07:44] LABS: Abs Immature Grans 0.04 k/cumm (0.0-0.09); Absolute Basophil Count 0.08 k/cumm (0.0-0.2); Absolute Eosinophil Count 0.73 k/cumm (0.0-0.7); Absolute Lymphocyte Count 2.28 k/cumm (1.2-3.4); Absolute Monocyte Count 0.72 k/cumm (0.11-0.7); Absolute Neutrophil Count 5.04 k/cumm (1.2-6.7); Basophils % 0.9; Eosinophils % 8.2; HCT 34.8 % (36.0-46.0); HGB 10.2 g/dL (12.0-15.5); Immature Grans % 0.4; Lymphocytes % 25.6; Mean Corp. HGB Concentration 29.3 g/dL (32.0-36.0); Mean Corpuscular Hemoglobin 24.5 pg (27.0-33.0); Mean Corpuscular Volume 83.7 fL (80-95); Mean Platelet Volume 8.7 fL (8.0-11.0); Monocytes % 8.1; Neutrophils % 56.8; Platelet Count 436 x1000/uL (130-400); RBC 4.16 m/cumm (4.00-5.20); RBC Distribution Width 16.7 % (11.7-14.6); White Blood Cell Count 8.89 k/cumm (4.4-10.8)
[2019-07-22 07:45] VITALS: PULSE 60
[2019-07-22] MEDS: Budesonide/Formoterol 160/4.5 6 GM 60 PUFF INH IH (07:57)
[2019-07-22 08:01] LABS: Anion Gap 7.7 mmol/L (3-11); BUN 39 mg/dL (7-18); CO2 32.3 mmol/L (21.0-32.0); CREATININE 2.04 mg/dL (0.55-1.02); Calcium 9.1 mg/dL (8.5-10.1); Chloride 103 mmol/L (98-107); Estimated GFR 24.36 (mL/min/1.73m2); Glucose 124 mg/dL (70-100); Magnesium 1.8 mg/dL (1.8-2.4); Potassium 4.1 mmol/L (3.5-5.1); Sodium 143 mmol/L (136-145)
[2019-07-22] MEDS: Atorvastatin 40 MG TAB PO (09:16)
[2019-07-22] MEDS: Gabapentin 600 MG TAB PO (09:17)
[2019-07-22] MEDS: Cyanocobalamin 500 MCG TAB 1000 MCG PO (09:17)
[2019-07-22] MEDS: Omeprazole 20 MG CAPCR 80 MG PO (09:17)
[2019-07-22] MEDS: DULoxetine 30 MG CAP 60 MG PO (09:17)
[2019-07-22] MEDS: guaiFENesin 600 MG TABCR PO (09:17)
[2019-07-22] MEDS: Potassium Chloride 20 MEQ TABCR PO (09:17)
[2019-07-22] MEDS: SITagliptin 100 MG TAB PO (09:18)
[2019-07-22] MEDS: dilTIAZem CD 120 MG CAPCR 240 MG PO (09:18)
[2019-07-22] MEDS: Bumetanide 1 MG TAB 3 MG PO (09:18)
[2019-07-22] MEDS: Allopurinol 100 MG TAB PO (09:18)
[2019-07-22] MEDS: Aspirin E.C. 81 MG TABEC PO (09:18)
[2019-07-22] MEDS: Folic Acid 1 MG TAB PO (09:18)
[2019-07-22] MEDS: Metoprolol CR 25 MG TABCR PO (09:18)
[2019-07-22 10:32] VITALS: PULSE 79
[2019-07-22] MEDS: Calcium 600mg/Vit D 200U TAB 2 TAB PO (10:44)
--- NOTE | 2019-07-22 10:49 | DSE_ITS ---
Date of service: 07/22/19 Time of Service: 10:50 DS: Diagnosis Discharge Diagnosis (1) Acute on chronic diastolic (congestive) heart failure: Start date: 07/22/19 Start time: 10:50 Status: Acute Asessment and Plan: Admitted with increasing SOB, Bilateral LE edema, per patient 10 lb weight gain and crackles bilaterally. On bumex drip for 48 hours with improving results. Transitioned to PO bumex with an increase to 3 mg daily. Will need follow up with PCP to manage CHF. (2) PAF (paroxysmal atrial fibrillation): Start date: 07/22/19 Start time: 10:52 Status: Acute Asessment and Plan: On teley SR in the 80's. (3) Hypoxia: Start date: 07/22/19 Start time: 10:53 Status: Acute Asessment and Plan: Resolved no longer requiring oxygen only at night. (4) Pulmonary hypertension: Status: Chronic (5) CKD (chronic kidney disease) stage 3, GFR 30-59 ml/min: Start date: 07/22/19 Start time: 10:53 Status: Chronic Asessment and Plan: Elevated but stable, within normal range for patient. Continue Bumex po (6) S/P CABG (coronary artery bypass graft): Start date: 07/22/19 Start time: 10:55 Status: Chronic Asessment and Plan: Doing well, no chest pain or AFIB (7) Diabetes mellitus: Start date: 07/22/19 Start time: 10:55 Status: Chronic Asessment and Plan: Controlled with medication and diet (8) Hyperlipidemia: Status: Chronic (9) Essential hypertension: Status: Chronic (10) Macrocytic anemia: Status: Chronic (11) Hypomagnesemia: Status: Acute Discharge Plan Disposition Patient Disposition: HOME Condition: Good Discharge Details Reason For Visit: ACUTE ON CHRONIC DIASTOLIC CHF, PULMONARY HYPERTEN Admit Date/Time: 07/19/19 13:36 Admit Provider: Elvira Mims Attending Provider: Elvira Mims Primary Care Provider: Laisha Mcmahon [facility] Hospital Course Hospital Course: 68 y.o Female with extensive cardiac history including recent CABG December 2018 following a NSTEMI, with excision of left atrial appendage no longer requiring anticoagulation, CHF, CKD, Depression, gout, RLS, spinal stenosis, hyperli pidemia, and HTN. She was seen by cardiology on 07/19/2019 for a 10 lb weight gain over 1 week. She was also requiring more oxygen with increasing SOB. We were asked to directly admit her by cardiology, therefore she was admitted to /[facility] [address] and started on a Bumex drip. During the course of hospitalization she was improving after one day of diuresis. Lost 3 kg and with 2.4 liters. Her BUN and Creatinine were elevated but stable for her. Bumex was continued for another 24 hours with good results. Yesterday patient felt improved, her breathing was improving, edema was reduced to 1+, she was transitioned to oral Bumex 3 mg. Today she is doing well. She feels her breathing is back to baseline, edema to bilateral lower extremities has improved, she was able to sleep lying down. Her weight today reflected an increase however her symptoms have resolved and she has diuresed 1.4 Liters in 24 hours. Unlikely scale is accurate given patient presentation, therefore using that measurement will not be considered in disposition. She has a follow up appt. with PCP this week. Her diuretics have increased by 1 mg, she may be someone that will require an increased increment of dosing every other day if to control fluid volume. While on telemetry here she was SR. She is no longer requiring oxygen during the day. She is being discharged home as she feels she is ready. She denies CP, SOB, N/V/D Home Meds and New Rx's Prescriptions: New bumetanide 1 mg Tablet 3 mg PO DAILY Qty: 30 RF: 0 Continued (DME) lancets 25 gauge misc See Dose Instructions .ROUTE .MEDSUPPLY Qty: 100 RF: 5 (DME) pen needle, diabetic [1st Tier Unifine Pentips] 31 gauge x 1/4 needle See Dose Instructions .ROUTE .MEDSUPPLY Qty: 30 RF: 5 (DME) Blood Glucose Test strip See Dose Instructions .ROUTE .MEDSUPPLY Qty: 100 RF: 5 (DME) lancets [OneTouch Delica Lancets] 33 gauge misc See Dose Instructions .ROUTE DAILY Qty: 100 RF: 0 estradiol 0.01 % (0.1 mg/gram) cream 1 gm VG DAILY Qty: 42.5 RF: 4 allopurinol 100 mg tablet 100 mg PO DAILY Qty: 90 RF: 12 gabapentin 600 mg tablet 600 mg PO TID Qty: 270 RF: 12 glipizide 10 mg tablet extended release 24hr 10 mg PO DAILY Qty: 90 RF: 11 atorvastatin 40 mg tablet 40 mg PO DAILY Qty: 90 RF: 6 duloxetine 60 mg capsule,delayed release(DR/EC) 60 mg PO DAILY Qty: 90 RF: 12 potassium chloride 20 mEq tablet,ER particles/crystals 20 meq PO BID Qty: 180 RF: 5 diltiazem HCl 120 mg capsule,extended release 24hr 240 mg PO DAILY Qty: 180 RF: 5 Januvia 100 mg tablet 100 mg PO DAILY Qty: 90 RF: 4 folic acid 1 mg tablet 1 mg PO DAILY Qty: 90 RF: 5 nystatin 100,000 unit/gram cream 1 applic Topical BID PRN (Reason: yeast) Qty: 30 RF: 2 meclizine 12.5 mg tablet 25 mg PO TID PRN (Reason: dizziness) Qty: 60 RF: 3 ergocalciferol (vitamin D2) [Vitamin D2] 50,000 unit capsule 50,000 unit PO Qty: 36 RF: 4 epinephrine [EpiPen 2-Erick] 0.3 mg/0.3 mL auto-injector 0.3 mg IM ONCE Qty: 2 RF: 10 Symbicort 160-4.5 mcg/actuation HFA aerosol inhaler 2 puff IH BID Qty: 10.2 RF: 12 metoprolol succinate 50 mg tablet extended release 24 hr 25 mg PO DAILY Qty: 90 RF: 3 tramadol 50 mg tablet 50 mg PO BID PRN (Reason: pain) Qty: 60 RF: 1 cyanocobalamin (vitamin B-12) [Vitamin B-12] 500 MCG tablet 1,000 mcg PO DAILY Qty: 100 RF: 0 polyethylene glycol 3350 [Miralax] 17 gram Powder In Packet 1 g PO PRN PRNRF: 0 magnesium hydroxide [Milk of Magnesia] 400 mg/5 mL Suspension 30 ml PO PRN PRN (Reason: Constipation) RF: 0 ropinirole [Requip] 2 mg tablet 2 mg PO QPM PRNRF: 0 calcium carbonate-vitamin D3 [Calcium 600 + D(3)] 600 mg(1,500mg) -200 unit Tablet 2 tab PO BID Qty: 60 RF: 0 aspirin [Aspir-81] 81 mg Tablet,Delayed Release (Dr/Ec) 81 mg PO DAILY Qty: 30 RF: 0 acetaminophen [Tylenol Extra Strength] 500 mg Tablet 1,000 mg PO Q8H PRN PRN (Reason: Pain) Qty: 0 RF: 0 Victoza 2-Erick 0.6 mg/0.1 mL (18 mg/3 mL) pen injector 1.8 mg SC QHS RF: 0 albuterol sulfate 2.5 mg /3 mL (0.083 %) Solution For Nebulization 2.5 mg INHALATION Q2H PRN PRN (Reason: shortness of breath or wheezing) Qty: 0 RF: 0 omeprazole 40 mg capsule,delayed release(DR/EC) 80 mg PO BID RF: 0 Discontinued bumetanide 2 mg tablet 2 mg PO DAILY Qty: 30 RF: 4 lorazepam 1 mg tablet 1 mg PO BID PRN (Reason: sleep) Qty: 10 RF: 0 Discharge Instructions Instructions: Heart Failure (GEN), Pulmonary Edema (GEN), Chronic Kidney Disease (GEN) Additional Instructions: Take a 1 mg dose of bumex around 4 pm today. Follow up with your PCP this week. Discuss with your PCP a plan about increasing Bumex or taking an added dose different days of the week when you feel an increase in fluid to prevent worsening Heart failure. Stand Alone Forms: Nursing Discharge Form Referrals: Laisha Mcmahon MD, [place] [Primary Care Provider] - Activity:: Activity as Tolerated Equipment/Supplies:: No Equipment Needed Diet:: Carb Counting Discharge Orders Discharge Orders: Discharge Order (Routine); Ordered 07/22/19 Ordered By: Tiana Grey DS: Summary Status at Discharge Functional status at discharge: independent ambulation Overall status at discharge: patient is back to baseline Mental Status: mental status grossly normal Speech and Movement: speech and movement normal Mood: congruent mood Affect: normal affect Exam Const General: cooperative, healthy appearing, comfortable and no acute distress Nutritional Appearance: obese Orientation: alert, awake and oriented x3 HENMT Head: normal to inspection and normocephalic Face and sinus: normal facial exam Eyes General: appearance normal, both eyes and all related structures Conjunctivae: conjunctivae normal Pupils: PERRL EOM: EOM intact bilaterally Neck Neck: normal visual inspection, full ROM and no lymphadenopathy Thyroid: thyroid normal Lymphatic: no lymphadenopathy noted Chest Chest: other Resp Effort & Inspection: normal respiratory effort and able to speak in complete sentences Auscultation: clear to auscultation bilaterally Cardio Jugular venous pressure: no JVD Heart Sounds: S1 normal and S2 normal GI Inspection: normal to inspection, large pannus and obesity Palpation: soft Auscultation: normal bowel sounds General: deferred Back/Spine/Pelvis Back: no CVA tenderness Thoracic/Lumbar Spine: thoracic and lumbar spine normal to inspection Skin General skin exam: erythema Rashes: no rashes Wounds: no wounds Neuro General: alert, awake and oriented x3 Cognition: normal cognition Speech: speech normal Extrem General: full ROM and edema (improving Left 1+ edema, Right 1+ edema) Lat erality: bilateral Right lower extremity: edema and lower leg (+ 2 pitting edema) Psych Appearance: grossly normal Mental Status: mental status grossly normal Speech and Movement: speech and movement normal Mood: congruent mood Affect: normal affect Attitude: cooperative DS: Data Vitals/I&O Vitals and I&O: Vital Signs Temperature 36.4 C L 07/22/19 07:20 Temperature Source Tympanic 07/22/19 07:20 Pulse 60 07/22/19 07:45 Pulse Rhythm Regular 07/22/19 00:29 Respiratory Rate 20 07/22/19 07:20 Respiratory Effort Non-Labored 07/22/19 00:29 Respiratory Depth Normal 07/22/19 00:29 Respiratory Pattern Normal 07/22/19 00:29 Blood Pressure 136/62 07/22/19 07:20 Pulse Oximetry 91 L 07/22/19 07:20 Oxygen Delivery Method Room Air 07/22/19 07:20 Oxygen Flow Rate 0 07/22/19 07:20 Pain Level 0 07/22/19 07:20 Comment 07/20/19 08:05 Intake & Output 07/21/19 07/21/19 07/22/19 11:59 23:59 11:59 Intake Total 240 / 960 720 / 960 240 / 240 Output Total 700 / 2150 1450 / 2150 850 / 850 Balance -460 / -1190 -730 / -1190 -610 / -610 Weight 122.7 kg 124.1 kg Intake: Oral 240 / 960 720 / 960 240 / 240 Output: Urine 700 / 2150 1450 / 2150 850 / 850 Other: Urine Color Pale Yellow Yellow Yellow Urine Appearance Clear Clear Clear Urine Odor None None Comment pt stated voided x 2 Voiding Methods Bedside Commode Bedside Commode Bedside Commode Data Completed and Pending Completed studies during hospitalization [Text1]: Exam(s) a RAD:XR chest 2V PA & lateral EXAM: XR CHEST 2V PA LATERAL INDICATION: CHF, SOB. COMPARISON: XR CHEST 2V PA LATERAL from 02/12/2019 TECHNIQUE: 2D digital imaging was performed. FINDINGS: The heart size and pulmonary vasculature are within normal limits. Lungs are hyperinflated consistent with underlying COPD. The left lung base has improved compared to the prior examination. There may be a small infiltrate which persists in the left lower lobe. No pleural effusion or pneumothorax is present. There are again seen postsurgical changes in the lower cervical and upper thoracic spine. Sternotomy wires are stable. Surgical clips in the mediastinum are again noted. Degenerative changes are seen in the spine. IMPRESSION: Question of a small infiltrate in the left lung base. This may represent atelectasis or pneumonia. Exam(s) PROCEDURE INFORMATION: Exam: XR Chest, 2 Views Exam date and time: 07/20/2019 8:18 AM Clinical history: 68 years old, female; Shortness of breath; Patient HX: Chf, SOB TECHNIQUE: Imaging protocol: XR of the chest Views: 2 views. COMPARISON: CR XR CHEST 2V PA LATERAL 02/12/2019 8:09 AM FINDINGS: Lungs: Hyperexpanded lung chan consistent with COPD. . Mild opacities at in the left lower lobe Pleural space: Unremarkable. No pleural effusion. No pneumothorax. Heart/Mediastinum: Unremarkable. No cardiomegaly. Bones/joints: Plate and screws in the cervical spine Median sternotomy IMPRESSION: Hyperexpanded lung chan consistent with COPD. Mild opacities in the left lower lobe may represent atelectasis or pneumonia. Labs on day of discharge: Labs from last 24 hours 07/22/19 07/22/19 07:33 07:33 WBC 8.89 RBC 4.16 Hgb 10.2 L Hct 34.8 L MCV 83.7 MCH 24.5 L MCHC 29.3 L RDW 16.7 H Plt Count 436 H MPV 8.7 Immature Gran % 0.4 Neutrophils % 56.8 Lymphocytes % 25.6 Monocytes % 8.1 Eosinophils % 8.2 Basophils % 0.9 Absolute Neutrophils 5.04 Absolute Lymphocytes 2.28 Absolute Monocytes 0.72 H Absolute Eosinophils 0.73 H Absolute Basophils 0.08 Sodium 143 Potassium 4.1 Chloride 103 Carbon Dioxide 32.3 H Anion Gap 7.7 BUN 39 H Creatinine 2.04 H Estimated GFR/1.73 m2 24.36 Glucose 124 H Calcium 9.1 Magnesium 1.8 PFSH Medical History Abnormal mammography (Resolved) 08/10/06 Acute diastolic CHF (congestive heart failure) (Chronic) Anemia (Chronic) Ankle pain (Resolved 03/13/14) Atrial fibrillation (Chronic) paroxysmal, onset 2015, anticoagulated w/ Xarelto; anticoagulation discontinued after left atrial appendage excision 01/03/2019 Atrial fibrillation Atrial flutter (Inactive) Carpal tunnel syndrome Carpal tunnel syndrome (Resolved 08/10/06) BILATERAL R S/P SURGERY Cervical disc disorder with myelopathy (Resolved 08/21/08) S/P surgery x 2 Cervical spondylosis with myelopathy Chest pain (Resolved) Neg Stress test Chronic obstructive lung disease (Chronic) 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) CKD (chronic kidney disease) stage 3, GFR 30-59 ml/min (Chronic) Cr about 2.5 Constipation (Inactive) Diabetes mellitus (Chronic) Diabetes mellitus (Resolved) 09/20/10 Positive Microalbumin Essential hypertension (Chronic) Folate deficiency (Resolved 02/15/16) Gout Gout (Chronic 07/06/11) Gram-positive bacteremia (Resolved) HAP (hospital-acquired pneumonia) (Resolved 01/15/19) HCAP (healthcare-associated pneumonia) (Resolved) Hepatomegaly (Resolved) 06/10/04 Hip joint inflamed (Resolved 09/03/15) Hip pain, left (Chronic) Hip pain, right (Chronic) Hyperlipidemia (Chronic 08/10/00) Hypertension Hypoxia (Inactive) Low back pain (Resolved 04/10/03) DISC HERNIATION L4. MULTILEVEL DJD/SPINAL STENOSIS BY MRI; S/P surgery Lump in neck (Resolved) Menopausal syndrome (Resolved) 07/11/03 Muscle fatigue (Resolved) 03/04/13 PAF (paroxysmal atrial fibrillation) (Acute) Posterior tibial tendon dysfunction (Resolved) 02/03/16 Postmenopausal bleeding (Resolved) neg. endometrial biopsy Postoperative wound dehiscence (Resolved 12/23/15) Primary osteoarthritis of left hip (Resolved 09/17/15) Pulmonary hypertension (Chronic) Renal impairment (Resolved 07/11/03) ADRENAL MASS. F/U W/ KINLAW positive microalbumin Restless leg syndrome (Chronic) Rotator cuff syndrome (Resolved 08/01/09) Shingles (Resolved) Smoker (Resolved 06/30/16) 01/17/17 1-2 cig/wk Spinal stenosis of lumbar region (Chronic 02/15/16) Spinal stenosis of lumbar region at multiple levels Tarsal tunnel syndrome (Resolved) 06/11/13 Tarsal tunnel syndrome (Resolved 06/11/13) Trochanteric bursitis (Resolved) 03/18/13 Upper respiratory tract infection (Resolved 08/03/15) Vitamin D deficiency Vitamin D deficiency (Resolved) Social History (Updated 07/19/19 @ 11:45 by Vonnie Tidwell RN) Smoking/Tobacco Use Status: Former Tobacco Use Quit Date: 12/10/18 Tobacco: How many years used: 20 Alcohol Intake: current Alcohol Intake frequency: a few times a week Drug use: Never Substance use type: does not use Household members: other Details: 2 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
--- NOTE | 2019-07-22 11:01 | CMPROGNOTE_ITS ---
Care Management Progress Note S/O: Ann-Marie is well known to this telegraphic typewriter operator chief from previous admissions. A: 68 year old female admitted to [facility] 07/19/19 for Acute on Chronic diastolic CHF, Pulmonary Hypertension P: Ann-Marie will return home when medically cleared for discharge and will resume VNA services. She will transport via private vehicle with family.
--- NOTE | 2019-07-22 11:01 | PDOC.CMPRO ---
Care Management Progress Note S/O: Ann-Marie is well known to this technical proposal writer from previous admissions. A: 68 year old female admitted to [facility] 07/19/19 for Acute on Chronic diastolic CHF, Pulmonary Hypertension P: Ann-Marie will return home when medically cleared for discharge and will resume VNA services. She will transport via private vehicle with family.
--- NOTE | 2019-07-22 11:59 | CMDISCH_ITS ---
LACE Index Scoring Tool - Questions: Length of Stay (in days): 3 Acuity (Admit via E.D.?): No Comorbidities: Diabetes w/o Complication, Congestive Heart Failure, Chronic Pulmonary Disease, Liver or Renal Disease E.D. Visits: 5 - Answers: Total Score: 12 Risk of Readmission: High Risk Care Management Discharge Reason for Hospitalization: Acute on Chronic Diastolic CHF, Pulmonary Hypertension Discharge Plan: Ann-Marie will return home when medically cleared for discharge and will resume VNA services. She will transport via private vehicle with family. Patient/Family Education Needs: Review discharge instructions, discuss Ask Me Three. Services Needed at Discharge: Home Health Care Services (Resume RN through [facility] ), Oxygen Therapy (Resumption)
--- NOTE | 2019-07-22 13:21 | W.DIABETESNO ---
Date of service: 07/22/19 Time of Service: 13:21 Diabetes Note NOTE: Attempted to visit Ann-aMrie but she was discharged. Ann-Marie is known to DSME from previous admissions. She has managed her diabetes well with oral medications however her A1c has increased to 10.1 taking sitaglyptin and Victoza. Blood sugars here reasonable until supper when they increase to the 200s taking only sensitive insulin correction. Ann-Marie is aware of our program and will be in touch as she wishes. Time Spent in Nutritional Counseling and Treatment: 0
--- NOTE | 2019-07-22 14:16 | CHAPLAIN ---
Ann-Marie said she was being discharged, with a plan, so she won't need to come back. Shortly after her last discharge she went on a trip to [place], her first time flying. She has a wonderful time, she said, and hopes to go again son. She was happy about being discharged today.
[2019-07-22 15:54] LABS: NT-proBNP 367 pg/mL
== END 2019-07-22 12:07 | disposition home or self-care (01) | DRG 293 ==
PROVIDERS: Nurse Practitioner Family; Admitting Provider Internal Medicine; PCP Family Medicine; Visit Provider Internal Medicine
DX: I50.33 Acute on chronic diastolic (congestive) heart failure (principal); I48.0 Paroxysmal atrial fibrillation; R09.02 Hypoxemia; I27.20 Pulmonary hypertension, unspecified; N18.3 Chronic kidney disease, stage 3 (moderate); E11.9 Type 2 diabetes mellitus without complications; Z79.84 Long term (current) use of oral hypoglycemic drugs; E78.5 Hyperlipidemia, unspecified; D53.9 Nutritional anemia, unspecified; E83.42 Hypomagnesemia; G25.81 Restless legs syndrome; Z95.1 Presence of aortocoronary bypass graft; M10.9 Gout, unspecified; I12.9 Hypertensive chronic kidney disease with stage 1 through stage 4 chronic kidney disease, or unspecified chronic kidney disease
CPT/HCPCS: 36415; 80048; 80076; 94640; 99223; 99233; 99239; 71046; 83735; 83880; 84443; 84484; 85025; 93005; 93010; J1644; J3475; J3490

== ENCOUNTER 2019-07-24 11:08 | Outpatient (CLI) | payer BC, SELFPAY ==
[2019-07-24 11:35] LABS: Abs Immature Grans 0.04 k/cumm (0.0-0.09); Absolute Eosinophil Count 0.85 k/cumm (0.0-0.7); Absolute Lymphocyte Count 1.59 k/cumm (1.2-3.4); Absolute Monocyte Count 0.98 k/cumm (0.11-0.7); Absolute Neutrophil Count 10.12 k/cumm (1.2-6.7); Basophils % 0.7; Eosinophils % 6.2; HCT 35.6 % (36.0-46.0); HGB 10.4 g/dL (12.0-15.5); Immature Grans % 0.3; Lymphocytes % 11.6; Mean Corp. HGB Concentration 29.2 g/dL (32.0-36.0); Mean Corpuscular Hemoglobin 24.8 pg (27.0-33.0); Mean Corpuscular Volume 84.8 fL (80-95); Mean Platelet Volume 9.1 fL (8.0-11.0); Monocytes % 7.2; Platelet Count 452 x1000/uL (130-400); RBC Distribution Width 16.9 % (11.7-14.6); White Blood Cell Count 13.67 k/cumm (4.4-10.8)
[2019-07-24 14:09] LABS: ALT 36 U/L (14-59); AST 20 U/L (15-37); Albumin 3.7 g/dL (3.4-5.0); Alkaline Phosphatase 73 U/L (46-116); BUN 39 mg/dL (7-18); Bilirubin, Total 0.3 mg/dL (0.2-1.0); CREATININE 2.38 mg/dL (0.55-1.02); Calcium 9.4 mg/dL (8.5-10.1); Chloride 101 mmol/L (98-107); Estimated GFR 20.39 (mL/min/1.73m2); Glucose 170 mg/dL (70-100); Magnesium 1.5 mg/dL (1.8-2.4); NT-proBNP 380 pg/mL; Potassium 4.7 mmol/L (3.5-5.1); Sodium 141 mmol/L (136-145); Total Protein 7.3 g/dL (6.4-8.2)
== END 2019-07-24 11:28 ==
PROVIDERS: PCP Family Medicine; Visit Provider Family Medicine
DX: D64.9 Anemia, unspecified (principal); N18.3 Chronic kidney disease, stage 3 (moderate); I50.9 Heart failure, unspecified
CPT/HCPCS: 36415; 80053; 83735; 83880; 85025

== ENCOUNTER 2019-07-31 01:24 | Outpatient (CLI) | payer BC, SELFPAY ==
[2019-07-31 13:06] LABS: HCT 36.4 % (36.0-46.0); HGB 10.7 g/dL (12.0-15.5); Mean Corp. HGB Concentration 29.4 g/dL (32.0-36.0); Mean Corpuscular Hemoglobin 24.9 pg (27.0-33.0); Mean Corpuscular Volume 84.8 fL (80-95); Mean Platelet Volume 8.9 fL (8.0-11.0); Platelet Count 405 x1000/uL (130-400); RBC 4.29 m/cumm (4.00-5.20); RBC Distribution Width 16.5 % (11.7-14.6); White Blood Cell Count 9.58 k/cumm (4.4-10.8)
[2019-07-31 14:05] LABS: ALT 26 U/L (14-59); AST 15 U/L (15-37); Albumin 3.5 g/dL (3.4-5.0); Alkaline Phosphatase 77 U/L (46-116); Anion Gap 10.7 mmol/L (3-11); BUN 26 mg/dL (7-18); Bilirubin, Total 0.2 mg/dL (0.2-1.0); CO2 29.3 mmol/L (21.0-32.0); CREATININE 1.74 mg/dL (0.55-1.02); Calcium 9.2 mg/dL (8.5-10.1); Chloride 104 mmol/L (98-107); Estimated GFR 29.27 (mL/min/1.73m2); Glucose 148 mg/dL (74-106); Magnesium 1.5 mg/dL (1.8-2.4); NT-proBNP 563 pg/mL (<300); Potassium 4.1 mmol/L (3.5-5.1); Sodium 144 mmol/L (136-145); Total Protein 7.1 g/dL (6.4-8.2)
== END 2019-07-31 01:44 ==
PROVIDERS: PCP Family Medicine; Visit Provider Family Medicine
DX: I50.9 Heart failure, unspecified (principal); D64.9 Anemia, unspecified; N19 Unspecified kidney failure
CPT/HCPCS: 36415; 80053; 85027; 83735; 83880

== ENCOUNTER 2019-09-06 12:18 | Inpatient (IN) | payer BC, MEDICARE, SELFPAY ==
[2019-09-06] VITALS (30 sets, daily range): BP systolic 90–126; BP diastolic 51–78; PULSE 60–90; RESP 11–21; TEMP 35.6–38.1; O2SAT 83–96
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
--- NOTE | 2019-09-06 14:05 | DI.RAD_ITS ---
EXAM: XR CHEST 2V PA LATERAL CLINICAL HISTORY: cough TECHNIQUE: COMPARISON: XR CHEST 2V PA LATERAL from 07/20/2019 FINDINGS: The heart is not enlarged. There are multiple mediastinal vascular clips. Lungs appear generally cl ear. No pleural effusion seen. IMPRESSION: No evidence of acute process.
[2019-09-06 14:29] LABS: Bilirubin Negative (Negative); Blood Negative (Negative); Clarity Clear (Clear); Glucose Negative (Negative); Ketones Negative (Negative); Leukocyte Esterase Negative (Negative); Nitrite Negative (Negative); Specific Gravity 1.015 (1.005-1.025); Urobilinogen 0.2 EU/dL (Up TO 0.2)
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
[2019-09-06 15:10] LABS: Abs Immature Grans 0.06 k/cumm (0.0-0.09); Absolute Basophil Count 0.06 k/cumm (0.0-0.2); Absolute Eosinophil Count 0.68 k/cumm (0.0-0.7); Absolute Lymphocyte Count 2.24 k/cumm (1.2-3.4); Absolute Monocyte Count 1.02 k/cumm (0.11-0.7); Absolute Neutrophil Count 10.05 k/cumm (1.2-6.7); Basophils % 0.4; Eosinophils % 4.8; HCT 36.1 % (36.0-46.0); Immature Grans % 0.4; Lymphocytes % 15.9; Mean Corp. HGB Concentration 30.5 g/dL (32.0-36.0); Mean Corpuscular Hemoglobin 24.6 pg (27.0-33.0); Mean Corpuscular Volume 80.8 fL (80-95); Mean Platelet Volume 9.5 fL (8.0-11.0); Monocytes % 7.2; Neutrophils % 71.3; Platelet Count 453 x1000/uL (130-400); RBC 4.47 m/cumm (4.00-5.20); RBC Distribution Width 15.6 % (11.7-14.6)
[2019-09-06 15:19] LABS: ALT 22 U/L (14-59); AST 13 U/L (15-37); Albumin 3.4 g/dL (3.4-5.0); Alkaline Phosphatase 123 U/L (46-116); Anion Gap 5.5 mmol/L (3-11); Bilirubin, Total 0.3 mg/dL (0.2-1.0); CO2 41.5 mmol/L (21.0-32.0); CREATININE 2.82 mg/dL (0.55-1.02); Calcium 9.4 mg/dL (8.5-10.1); Chloride 88 mmol/L (98-107); Estimated GFR 16.77 (mL/min/1.73m2); Glucose 197 mg/dL (74-106); Sodium 135 mmol/L (136-145); Total Protein 8.3 g/dL (6.4-8.2)
[2019-09-06 15:21] LABS: BUN 101 mg/dL (7-18); Potassium 2.9 mmol/L (3.5-5.1)
[2019-09-06] MEDS: Normal Saline 1,000 ML 500 ML IV (16:00)
--- NOTE | 2019-09-06 16:50 | DI.CT_ITS ---
EXAM: CT ABDOMEN PELVIS WO If that CLINICAL HISTORY: abdominal pain, TECHNIQUE: Imaging Protocol: Axial computed tomography images with coronal and sagittal reformatted images were created and reviewed. The exam was performed without contrast. COMPARISON: ABD PELVIS WO CONTRAST from 01/30/2018 CT CHEST PE CTA from 03/03/2019 FINDINGS: ABDOMEN: Lung Bases: Normal where visualized. Liver: Enlarged liver. No definite mass is identified. Gallbladder and biliary tract: Status post cholecystectomy. No biliary ductal dilatation. Pancreas: Atrophy. No mass. Spleen: Normal. Kidneys: Normal size, contour and axis. No radiodense stones or obstructive uropathy. Cyst again seen in superior pole of the right kidney. 1 centimeter hyperdense nodule in the lower pole of the right kidney. This likely reflects a hemorrhagic cyst. Follow-up as clinically appropriate. Adrenal glands: Stable bilateral adrenal masses. These likely reflect adrenal adenomas. Lymph nodes: Within normal limits. Abdominal Aorta: Atherosclerosis. No aneurysmal dilatation. PELVIS: Bladder: Symmetric distention, no gross wall thickening. Bowel: Colonic diverticulosis. No evidence of acute diverticulitis. No evidence of bowel obstructio n or inflammation. Normal appendix. Moderate amount of retained stool. Peritoneal cavity: No ascites, collection or mesenteric inflammatory response. Reproductive organs: Within normal limits. Bones: Multilevel degenerative changes. Left total hip replacement. IMPRESSION: 1. No evidence of an acute abdomen. 2. Stable incidental findings as described above. DATA REPOSITORY: All CT scans at this facility are submitted to the National Radiology Data Registry (NRDR) Dose Index Registry (DIR) with the [employer] (A[employer]). RADIATION OPTIMIZATION: All CT scans at this facility use at least one of these dose optimization te chniques: automated exposure control; mA and/or kV adjustment per patient size (includes targeted exa ms where dose is matched to clinical indication); or iterative reconstruction.
[2019-09-06] MEDS: Ondansetron 4 MG/2 ML VIAL IVP (17:05)
--- NOTE | 2019-09-06 17:08 | DI.VRAD_ITS ---
PROCEDURE INFORMATION: Exam: CT Abdomen And Pelvis Without Contrast Exam date and time: 09/06/2019 4:52 PM Age: 68 years old Clinical indication: Abdominal pain; Generalized TECHNIQUE: Imaging protocol: Computed tomography of the abdomen and pelvis without contrast. COMPARISON: CT ABD PELVIS WO CONTRAST 01/30/2018 8:34 AM FINDINGS: Lungs: The visualized portions of the lung bases demonstrate no acute disease. Liver: There is marked enlargement of the liver. There is a diffuse decrease in hepatic parenchymal density, consistent with fatty infiltration. Gallbladder and bile ducts: Patient status post cholecystectomy. No biliary ductal dilation. Pancreas: There is diffuse atrophy of the pancreatic parenchyma. Spleen: Normal. No splenomegaly. Adrenals: Stable 3.7 cm left adrenal nodule. Stable 4.9 cm right adrenal nodule. These are nonspecific, but statistically represent adenomas. Kidneys and ureters: Stable 3.7 cm right renal cyst. Stable 1 cm hyperdense focus in the right kidney which is incompletely characterized, however most likely represents a hemorrhagic or proteinaceous cyst. No acute renal findings. No obstructive uropathy. Stomach and bowel: No bowel wall thickening, obstruction, or other acute pathology. Diffuse colonic diverticulosis is present. There is moderately excessive colonic stool content. Appendix: No evidence of appendicitis. Intraperitoneal space: Unremarkable. No free air. No significant fluid collection. Vasculature: The vasculature demonstrates diffuse marked atherosclerotic calcification. Lymph nodes: Unremarkable. No enlarged lymph nodes. Bladder: Unremarkable as visualized. Reproductive: Unremarkable as visualized. Bones/joints: Complete left hip arthroplasty without acute complications. No acute skeletal pathology. Severe multilevel degenerative changes of the spine, as manifested by multilevel anterior osteophytes and multilevel decrease in intervertebral disc space. Soft tissues: Unremarkable. IMPRESSION: 1. Negative for acute abdominopelvic pathology. 2. Stable/incidental findings as above. Dictated and Authenticated by: Jay De La Rosa MD. Ordering:VIPIN Saxena MD
[2019-09-06] MEDS: Potassium Chloride 20 MEQ TABCR (17:40)
[2019-09-06] MEDS: Acetaminophen 500 MG TAB 1000 MG PO (17:41)
[2019-09-06 17:42] LABS: Troponin I < 0.05 ng/Ml (<0.06)
[2019-09-06] MEDS: POTASSIUM CHLORIDE/0.9% NACL 1,000 ML 150 MEQ IV (17:42)
[2019-09-06 17:43] LABS: Magnesium 1.7 mg/dL (1.8-2.4)
[2019-09-06] MEDS: MAGNESIUM SULFATE 2 GM/50 ML BAG IVPB (17:55)
--- NOTE | 2019-09-06 18:39 | HPE_ITS ---
Date of service: 09/06/19 Time of Service: 18:39 Assessment and Plan Assessment and plan (1) Weakness: Status: Acute Assessment and plan: I feel that her weakness is adequately accounted for by dehydartion and hypokalemia, in turn due to over diuresis. It is possible that there may be an additional factor involving the spinal lesions as described in imaging report but clinically there are certainly no overt deficits. I would advise gentle hydration, potassium replacement (and monitoring) and reasess thereafter. The fever (and mild leukocytosis) is of unknown significance, and unknown source, but it dos not appear to be directly related to her primary complaint. Will follow. Reviewed ADs, requsts DNR. History of Present Illness History of Present Illness Chief Complaint: weakness Narrative: 68 female presents with a great variety of symptoms, but mainly weakness of lower extremities over past few weeks. 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 In ER findings of note for negative head CT, negative CKR, negative CT abdomen, CT LS spine showing a variety of modest abnormalities (see ER note for full details) -- and most notably substantial azotemia and potasisum of 2.9. Patient has eliazar receiving saline plus potasium supplements and states she is feeling somewhat stronger.Note that EKG shows NSR and is unchanged from prior. While in ER patient had fever of 38.1 -- and is entirely asymptomatic otherwise. No source was identified, including negative imaging studies as above, negative urinalysis and negative flu swab. She is admitted for further management. Review of Systems All systems reviewed & are unremarkable except as noted in HPI and below PFSH Medical History Abnormal mammography (Resolved) 08/10/06 Anemia (Chronic) Ankle pain (Resolved 03/13/14) Atrial fibrillation (Chronic) paroxysmal, onset 2015, anticoagulated w/ Xarelto; anticoagulation discontinued after left atrial appendage excision 01/03/2019 Atrial fibrillation Atrial flutter (Inactive) Carpal tunnel syndrome Carpal tunnel syndrome (Resolved 08/10/06) BILATERAL R S/P SURGERY Cervical disc disorder with myelopathy (Resolved 08/21/08) S/P surgery x 2 Cervical spondylosis with myelopathy Chest pain (Resolved) Neg Stress test Chronic obstructive lung disease (Chronic) 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) CKD (chronic kidney disease) stage 3, GFR 30-59 ml/min (Chronic) Cr about 2.5 Constipation (Inactive) Diabetes mellitus (Chronic) Diabetes mellitus (Resolved) 09/20/10 Positive Microalbumin Diastolic CHF (Inactive) Essential hypertension (Chronic) Folate deficiency (Resolved 02/15/16) Gout Gout (Chronic 07/06/11) Gram-positive bacteremia (Resolved) HAP (hospital-acquired pneumonia) (Resolved 01/15/19) HCAP (healthcare-associated pneumonia) (Resolved) Hepatomegaly (Resolved) 06/10/04 Hip joint inflamed (Resolved 09/03/15) Hip pain, left (Chronic) Hip pain, right (Chronic) Hyperlipidemia (Chronic 08/10/00) Hypertension Hypoxia (Inactive) Low back pain (Resolved 04/10/03) DISC HERNIATION L4. MULTILEVEL DJD/SPINAL STENOSIS BY MRI; S/P surgery Lump in neck (Resolved) Menopausal syndrome (Resolved) 07/11/03 Muscle fatigue (Resolved) 03/04/13 PAF (paroxysmal atrial fibrillation) (Acute) Posterior tibial tendon dysfunction (Resolved) 02/03/16 Postmenopausal bleeding (Resolved) neg. endometrial biopsy Postoperative wound dehiscence (Resolved 12/23/15) Primary osteoarthritis of left hip (Resolved 09/17/15) Pulmonary hypertension (Chronic) Renal impairment (Resolved 07/11/03) ADRENAL MASS. F/U W/ KINLAW positive microalbumin Restless leg syndrome (Chronic) Rotator cuff syndrome (Resolved 08/01/09) Shingles (Resolved) Smoker (Resolved 06/30/16) 01/17/17 1-2 cig/wk Spinal stenosis of lumbar region (Chronic 02/15/16) Spinal stenosis of lumbar region at multiple levels Tarsal tunnel syndrome (Resolved) 06/11/13 Tarsal tunnel syndrome (Resolved 06/11/13) Trochanteric bursitis (Resolved) 03/18/13 Upper respiratory tract infection (Resolved 08/03/15) UTI (urinary tract infection) (Inactive) Vitamin D deficiency Vitamin D deficiency (Resolved) Surgical History Arthrodesis right 2nd toe Cataract (Inactive 01/07/14) FOLLOWED BY [facility] [facility] cervical repair (~10/2008) C6-C7 DISK; RECURRENT SURGERY Cholecystectomy (07/31/13) Endometrial Biopsy NEG H/O arthrodesis (Resolved) right second toe H/O Spinal surgery (Resolved) multiple spine surgeries; low back x 2; She had multilevel DJD and spinal stenosis; disc herniation. 2009-cervical repair; C6-C7 disc; recurrent surgery. History of bilateral tubal ligation (Resolved) 09/11/80 History of gynecologic surgery (Resolved) endometrial biopsy-neg History of hip surgery (Resolved) 11/10/15 left hip arthroplasty 12/04/15-placement of wound VAC to left hip History of orthopedic surgery (Resolved) 09/11/97 tarsal tunnel release Left eye surgery 12/31/17 Ligation of fallopian tube (~1980) Open Carpal Tunnel release Right wrist surgery 10/26/17 Rotator Cuff Repair (~1980) S/P CABG (coronary artery bypass graft) (Chronic 01/03/19) 4 vessel CABG and LA appendage excision, Dr. Nav Wang, [facility] [place], [place], [place] S/P carpal tunnel release (Resolved) S/P cholecystectomy (Resolved) 09/11/12 S/P rotator cuff repair (Resolved) 09/11/80 SPINE SURGERY Multiple spine surgeries, low back x 2. She had multilevel DJD and spinal stenosis, disc herniation Status post incision and drainage (Resolved) 12/04/15 left hip surgical wound dehiscence and infection tarsal tunnel release (~1997) Total replacement of hip [facility]; LEFT HIP Family History Mother Diabetes Essential hypertension Personal history of malignant neoplasm KIDNEY/LIVER/BRAIN Heart disease Hyperlipidemia Stroke Asthma Father Diabetes Essential hypertension Personal history of malignant neoplasm BONE Heart disease Asthma Sister Diabetes Essential hypertension Depression Heart disease Asthma Grandfather No problems noted. Grandfather No problems noted. Grandmother Personal history of malignant neoplasm UTERINE Grandmother Diabetes Aunt Personal history of malignant neoplasm BREAST Brother Hyperlipidemia Stroke Sister Asthma Son Asthma Daughter Depression Asthma Daughter Asthma Daughter Depression Neoplasm Asthma Brother No problems noted. 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 Pets and animals: Yes Pets and animals: cat(s), dog(s) and horse(s) What type of physical activity do you participate in: none Saniya/Baptist: Restorationism Special saniya needs: No Do you feel safe at home: Yes Do you feel safe in your relationship?: Yes Meds Home Medications and Allergies Home Medications Medication Instructions Recorded Confirmed Type cyanocobalamin (vitamin B-12) 1,000 mcg PO DAILY #100 tab 02/16/17 08/26/19 Rx [Vitamin B-12] folic acid 1 mg tablet 1 mg PO DAILY #90 tab 05/21/18 08/26/19 Rx duloxetine 60 mg capsule,delayed 60 mg PO DAILY #90 tab-cap 06/14/18 08/26/19 Rx release nystatin 100,000 unit/gram topical 1 applic TOPICAL BID PRN #30 gm 12/04/18 08/26/19 Rx cream meclizine 12.5 mg tablet 25 mg PO TID PRN #60 tab 12/17/18 08/26/19 Rx blood sugar diagnostic #100 each 12/18/18 08/26/19 Rx lancets 33 gauge #100 each 12/18/18 08/26/19 Rx pen needle, diabetic 31 gauge x #30 each 12/18/18 08/26/19 Rx 1/4 magnesium hydroxide [Milk of 30 ml PO PRN PRN 01/15/19 08/26/19 History Magnesia] polyethylene glycol 3350 [Miralax] 1 g PO PRN PRN 01/15/19 08/26/19 History ropinirole [Requip] 2 mg PO QPM PRN 01/15/19 08/26/19 History acetaminophen [Tylenol Extra 1,000 mg PO Q8H PRN PRN #0 tab 01/22/19 08/26/19 Rx Strength] aspirin [Aspir-81] 81 mg PO DAILY #30 tab 01/22/19 08/26/19 Rx calcium carbonate-vitamin D3 2 tab PO BID #60 tab 01/22/19 08/26/19 Rx [Calcium 600 + D(3)] lancets 25 gauge #100 each 01/29/19 08/26/19 Rx ergocalciferol (vitamin D2) 1,250 50,000 unit PO M-W-F #36 tab-cap 01/30/19 08/26/19 Rx mcg (50,000 unit) capsule albuterol sulfate 2.5 mg INHALATION Q2H PRN PRN #0 ml 02/12/19 08/26/19 Rx diltiazem HCl 120 mg 240 mg PO DAILY #180 cap 02/21/19 08/26/19 Rx capsule,extended release 24 hr omeprazole 80 mg PO BID 03/03/19 08/26/19 History sitagliptin 100 mg tablet 100 mg PO DAILY #90 tab 03/26/19 08/26/19 Rx potassium chloride 20 mEq 20 meq PO BID #180 tab 04/22/19 08/26/19 Rx tablet,extended release(part/cryst) epinephrine 0.3 mg/0.3 mL 0.3 mg IM ONCE #2 dose 04/29/19 08/26/19 Rx injection, auto-injector budesonide-formoterol HFA 160 2 puff IH BID #10.2 gm 05/21/19 08/26/19 Rx mcg-4.5 mcg/actuation aerosol inhaler metoprolol succinate 50 mg 25 mg PO DAILY #90 tab 05/24/19 08/26/19 Rx tablet,extended release 24 hr estradiol 1 gm VG DAILY #42.5 gm 07/01/19 08/26/19 Rx Victoza 2-Erick 1.8 mg SC QHS 07/19/19 08/26/19 History glipizide 10 mg tablet, extended 10 mg PO DAILY #90 tab-cap 08/19/19 08/26/19 Rx release 24 hr allopurinol 100 mg tablet 100 mg PO DAILY #90 tab-cap 08/26/19 08/26/19 Rx atorvastatin 40 mg tablet 40 mg PO DAILY #90 tab-cap 08/26/19 08/26/19 Rx gabapentin 600 mg tablet 600 mg PO TID #270 tab-cap 08/26/19 08/26/19 Rx metolazone 5 mg tablet 5 mg PO .3times/week #30 tab 08/26/19 08/26/19 Rx torsemide 100 mg tablet 100 mg PO DAILY #90 tab 08/26/19 08/26/19 Rx Allergies Allergy/AdvReac Type Severity Reaction Status Date / Time venom-honey bee Allergy Severe ANAPHYLAXIS Verified 08/26/19 14:05 adhesive Allergy BLISTERS Verified 08/26/19 14:05 Exam Narrative Exam Narrative: 104/63, 69, 38.1, 20. HEENT unremarkable; neck supple; lungs clear; heart RRR w/o MRG; abdomen soft and NT; pelvic/rectal deferred; extr emities w/o edema, neuro ox3, motor 5/5 proximal/distal, sensation intact light touch Results Labs Result diagrams: 09/06/19 14:55 09/06/19 14:55 Labs: Laboratory Results - last 24 hr 09/06/19 09/06/19 09/06/19 14:22 14:55 14:55 WBC 14.10 H RBC 4.47 Hgb 11.0 L Hct 36.1 MCV 80.8 MCH 24.6 L MCHC 30.5 L RDW 15.6 H Plt Count 453 H MPV 9.5 Immature Gran % 0.4 Neutrophils % 71.3 Lymphocytes % 15.9 Monocytes % 7.2 Eosinophils % 4.8 Basophils % 0.4 Absolute Neutrophils 10.05 H Absolute Lymphocytes 2.24 Absolute Monocytes 1.02 H Absolute Eosinophils 0.68 Absolute Basophils 0.06 Sodium 135 L Potassium 2.9 L* Chloride 88 L Carbon Dioxide 41.5 H Anion Gap 5.5 BUN 101 H* Creatinine 2.82 H Estimated GFR/1.73 m2 16.77 Glucose 197 H Calcium 9.4 Magnesium Total Bilirubin 0.3 AST 13 L ALT 22 Alkaline Phosphatase 123 H Troponin I Total Protein 8.3 H Albumin 3.4 Urine Color Yellow Urine Clarity Clear Urine pH 7.0 Ur Specific [place] 1.015 Urine Protein Negative Urine Ketones Negative Urine Blood Negative Urine Nitrite Negative Urine Bilirubin Negative Urine Urobilinogen 0.2 Ur Leukocyte Esterase Negative Urine Glucose Negative 09/06/19 09/06/19 14:55 14:55 WBC RBC Hgb Hct MCV MCH MCHC RDW Plt Count MPV Immature Gran % Neutrophils % Lymphocytes % Monocytes % Eosinophils % Basophils % Absolute Neutrophils Absolute Lymphocytes Absolute Monocytes Absolute Eosinophils Absolute Basophils Sodium Potassium Chloride Carbon Dioxide Anion Gap BUN Creatinine Estimated GFR/1.73 m2 Glucose Calcium Magnesium 1.7 L Total Bilirubin AST ALT Alkaline Phosphatase Troponin I < 0.05 Total Protein Albumin Urine Color Urine Clarity Urine pH Ur Specific [place] Urine Protein Urine Ketones Urine Blood Urine Nitrite Urine Bilirubin Urine Urobilinogen Ur Leukocyte Esterase Urine Glucose Last Vital Signs Temp 38.1 C H 09/06/19 15:35 Pulse 63 12/27/19 18:31 Resp 20 09/06/19 12:17 BP 95/51 L 09/06/19 18:31 Pulse Ox 94 L 09/06/19 18:31
[2019-09-06] MEDS: MORPHine 10 MG/ML VIAL (20:38)
[2019-09-06] MEDS: rOPINIRole 1 MG TAB 2 MG PO (22:01)
[2019-09-06] MEDS: Gabapentin 600 MG TAB PO (22:01)
[2019-09-06] MEDS: Calcium 600mg/Vit D 200U TAB 2 TAB PO (22:01)
[2019-09-06] MEDS: Omeprazole 20 MG CAPCR 80 MG PO (23:42)
[2019-09-07] MEDS: POTASSIUM CHLORIDE/0.9% NACL 1,000 ML 150 MEQ IV ×2 (00:20→06:47)
[2019-09-07 04:23] VITALS: BP 101/63; PULSE 78; RESP 18; TEMP 35.3; O2SAT 96
[2019-09-07 07:30] LABS: Anion Gap 5.5 mmol/L (3-11); CO2 38.5 mmol/L (21.0-32.0); CREATININE 2.53 mg/dL (0.55-1.02); Chloride 97 mmol/L (98-107); Estimated GFR 19.01 (mL/min/1.73m2); Glucose 226 mg/dL (74-106); Potassium 3.4 mmol/L (3.5-5.1); Sodium 141 mmol/L (136-145)
[2019-09-07 07:34] LABS: BUN 95 mg/dL (7-18)
[2019-09-07 07:50] VITALS: BP 104/60; PULSE 67; RESP 18; TEMP 36.5; O2SAT 95
[2019-09-07] MEDS: Folic Acid 1 MG TAB PO (08:20)
[2019-09-07] MEDS: DULoxetine 30 MG CAP 60 MG PO (08:20)
[2019-09-07] MEDS: Omeprazole 20 MG CAPCR 80 MG PO ×2 (08:21→19:21)
[2019-09-07] MEDS: dilTIAZem CD 120 MG CAPCR 240 MG PO (08:21)
[2019-09-07] MEDS: Cyanocobalamin 500 MCG TAB 1000 MCG PO (08:21)
[2019-09-07] MEDS: SITagliptin 100 MG TAB PO (08:21)
[2019-09-07] MEDS: Atorvastatin 40 MG TAB PO (08:21)
[2019-09-07] MEDS: Calcium 600mg/Vit D 200U TAB 2 TAB PO ×2 (08:23→19:21)
[2019-09-07] MEDS: Gabapentin 600 MG TAB PO ×3 (08:23→19:21)
[2019-09-07] MEDS: Metoprolol CR 50 MG TABCR 25 MG PO (08:23)
[2019-09-07] MEDS: Potassium Chloride 20 MEQ TABCR 40 MEQ PO (08:25)
[2019-09-07] MEDS: Allopurinol 100 MG TAB PO (08:25)
[2019-09-07] MEDS: Aspirin E.C. 81 MG TABEC PO (08:25)
[2019-09-07] MEDS: Insulin Aspart 300 UNITS/3 ML PEN SC ×3 (08:36→16:57)
[2019-09-07] MEDS: Budesonide/Formoterol 160/4.5 6 GM 60 PUFF INH IH ×2 (09:17→19:20)
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
[2019-09-07] MEDS: predniSONE 20 MG TAB 60 MG PO (11:27)
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
[2019-09-07] MEDS: Heparin 5,000 UNITS/ML VIAL 5000 UNITS SC ×2 (14:02→22:05)
[2019-09-07 15:10] VITALS: BP 99/61; PULSE 64; RESP 18; TEMP 36.6; O2SAT 96
[2019-09-07] MEDS: traMADol 50 MG TAB PO (15:36)
[2019-09-07] MEDS: Nystatin POWDER 60 GM JAR TP (19:19)
[2019-09-07] MEDS: rOPINIRole 1 MG TAB 2 MG PO (19:32)
[2019-09-07 21:43] LABS: Glucose 386 mg/dL (74-106)
[2019-09-08] MEDS: Heparin 5,000 UNITS/ML VIAL 5000 UNITS SC ×3 (05:12→21:48)
[2019-09-08 05:23] VITALS: BP 108/64; PULSE 69; RESP 19; TEMP 36.6; O2SAT 95; O2SAT 96
[2019-09-08 06:58] LABS: Abs Immature Grans 0.07 k/cumm (0.0-0.09); Absolute Lymphocyte Count 1.11 k/cumm (1.2-3.4); Absolute Monocyte Count 0.53 k/cumm (0.11-0.7); Absolute Neutrophil Count 14.36 k/cumm (1.2-6.7); Basophils % 0.1; Eosinophils % 0.2; HCT 33.2 % (36.0-46.0); Immature Grans % 0.4; Lymphocytes % 6.9; Mean Corp. HGB Concentration 30.1 g/dL (32.0-36.0); Mean Corpuscular Hemoglobin 24.6 pg (27.0-33.0); Mean Corpuscular Volume 81.6 fL (80-95); Mean Platelet Volume 9.9 fL (8.0-11.0); Monocytes % 3.3; Neutrophils % 89.1; Platelet Count 442 x1000/uL (130-400); RBC 4.07 m/cumm (4.00-5.20); RBC Distribution Width 15.2 % (11.7-14.6); White Blood Cell Count 16.12 k/cumm (4.4-10.8)
[2019-09-08 07:01] LABS: Anion Gap 6.1 mmol/L (3-11); BUN 76 mg/dL (7-18); CO2 35.9 mmol/L (21.0-32.0); CREATININE 2.16 mg/dL (0.55-1.02); Calcium 9.3 mg/dL (8.5-10.1); Chloride 98 mmol/L (98-107); Estimated GFR 22.81 (mL/min/1.73m2); Glucose 254 mg/dL (74-106); Magnesium 1.8 mg/dL (1.8-2.4); Potassium 3.7 mmol/L (3.5-5.1); Sodium 140 mmol/L (136-145)
[2019-09-08 07:02] LABS: Absolute Basophil Count 0.02 k/cumm (0.0-0.2); Absolute Eosinophil Count 0.03 k/cumm (0.0-0.7)
[2019-09-08 07:25] VITALS: BP 111/68; PULSE 62; RESP 18; TEMP 36.6; O2SAT 96
[2019-09-08] MEDS: Gabapentin 600 MG TAB PO ×3 (07:48→20:22)
[2019-09-08] MEDS: SITagliptin 100 MG TAB PO (07:48)
[2019-09-08] MEDS: Metoprolol CR 50 MG TABCR 25 MG PO (07:48)
[2019-09-08] MEDS: Calcium 600mg/Vit D 200U TAB 2 TAB PO ×2 (07:48→20:22)
[2019-09-08] MEDS: Omeprazole 20 MG CAPCR 80 MG PO ×2 (07:48→20:21)
[2019-09-08] MEDS: DULoxetine 30 MG CAP 60 MG PO (07:48)
[2019-09-08] MEDS: Allopurinol 100 MG TAB PO (07:48)
[2019-09-08] MEDS: Aspirin E.C. 81 MG TABEC PO (07:49)
[2019-09-08] MEDS: Cyanocobalamin 500 MCG TAB 1000 MCG PO (07:49)
[2019-09-08] MEDS: traMADol 50 MG TAB PO ×2 (07:49→20:54)
[2019-09-08] MEDS: predniSONE 20 MG TAB 60 MG PO (07:49)
[2019-09-08] MEDS: Folic Acid 1 MG TAB PO (07:49)
[2019-09-08] MEDS: dilTIAZem CD 120 MG CAPCR 240 MG PO (07:49)
[2019-09-08] MEDS: Atorvastatin 40 MG TAB PO (07:49)
[2019-09-08] MEDS: Insulin Aspart 300 UNITS/3 ML PEN SC ×4 (07:50→21:45)
[2019-09-08 07:59] VITALS: O2SAT 95
[2019-09-08] MEDS: Polyethylene Glycol 3350 17 GM PACKET PO (08:11)
[2019-09-08] MEDS: Normal Saline Flush 10 ML SYR IVP (08:11)
[2019-09-08] MEDS: Budesonide/Formoterol 160/4.5 6 GM 60 PUFF INH IH ×2 (09:05→20:26)
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
--- NOTE | 2019-09-08 11:39 | PTTR_ITS ---
PT Notes Visit Reasons: WEAKNESS, DEHYDRATION, HYPOKALEMIA Inpatient Physical Therapy Treatment Note [facility] Date: 09/08/19 SUBJECTIVE: Kelsea reports that she is feeling better today, compared to yesterday, however still having difficulties with her left leg. She is now taking steroids. OBJECTIVE: [] BED MOBILITY/TRANSFERS Sit-stand: CGA Stand-sit: CGA GAIT Assistive Device: FWW Weight bearing: full Assist: CGA Distance: pivot x stephanie. THEREX: global LE strength and stabilization routine, trying to incorporate core, while in the seated position. She stood and performed wt shifting and modified marching activities with CGA/ Min A. See flow sheet for details. ASSESSMENT: tolerated session well. Increased c/o fatigue in her left leg the longer she stood. PLAN: will continue to progress her strength and stabilization as well as functi onal mobility to her tolerance per established goals. TREATMENT CODE/TIME: 25 min. [id number], [id number].
[2019-09-08] MEDS: Nystatin POWDER 60 GM JAR TP ×2 (12:14→20:25)
--- NOTE | 2019-09-08 16:09 | CMPROGNOTE_ITS ---
- If Service Date Differs Date of service: 09/08/19 Time of Service: 16:10 Care Management Progress Note S/O: Ann-Marie was sitting up in her chair when CM met with her. She asked CM how to change her POA, which CM advised that she would have to contact her animal anatomy teacher to make that change. CM asked if she would like to change her AD, which she declined. Ann-Marie reported that she did better working with PT today, but that she still needs to gain more strength before being comfortable on her own. CM will continue to follow. A: Ann-Marie is a 68 year old female admitted to [facility] on 09/06/2019 for Weakness, dehydration, hypokalemia. P: Anticipate Ann-Marie will return home when medically cleared. She may need new orders for PT, as recommended by PT. She will be driven home via private vehicle by family when ready. She will follow up with her PCP, as recommended. CM will continue to follow and support discharge planning considerations.
[2019-09-08 16:54] VITALS: BP 122/65; PULSE 65; RESP 20; TEMP 36.3; O2SAT 92
[2019-09-08 17:42] LABS: Glucose 523 mg/dL (74-106)
[2019-09-08] MEDS: Insulin NPH-Human 300 UNITS/3 ML PEN 15 UNIT SC (18:13)
[2019-09-08 19:45] VITALS: BP 112/57; PULSE 78; RESP 18; TEMP 37.1; O2SAT 93
[2019-09-08] MEDS: rOPINIRole 1 MG TAB 2 MG PO (20:22)
[2019-09-08] MEDS: Docusate Sodium 100 MG CAP PO (20:22)
[2019-09-08] MEDS: Insulin Aspart 100 UNITS/ML UNIT 15 UNITS SC (20:29)
[2019-09-08 20:34] LABS: Anion Gap 10.7 mmol/L (3-11); BUN 72 mg/dL (7-18); CO2 30.3 mmol/L (21.0-32.0); CREATININE 2.46 mg/dL (0.55-1.02); Calcium 9.1 mg/dL (8.5-10.1); Chloride 92 mmol/L (98-107); Estimated GFR 19.63 (mL/min/1.73m2); Glucose 463 mg/dL (74-106); Potassium 4.9 mmol/L (3.5-5.1); Sodium 133 mmol/L (136-145)
[2019-09-08] MEDS: Insulin Glargine 300 UNITS/3 ML PEN 20 UNITS SC (20:43)
[2019-09-08 20:44] LABS: Bilirubin Negative (Negative); Blood Moderate (Negative); Clarity Clear (Clear); Glucose 500 mg/dL (Negative); Ketones Negative (Negative); Leukocyte Esterase Negative (Negative); Nitrite Negative (Negative); Urobilinogen 0.2 EU/dL (Up TO 0.2); pH 6.5 (5-8)
[2019-09-08 20:52] LABS: Bacteria Few HPF (Negative); Epithelial Cells Moderate HPF (Negative)
[2019-09-08 20:53] LABS: C & S Indicated? No/Sq. Contamination
[2019-09-08] MEDS: Patient's Own Medication 1 EACH MISC SC (21:47)
[2019-09-09 00:40] VITALS: BP 134/64; PULSE 68; RESP 20; TEMP 36.1; O2SAT 97
[2019-09-09] MEDS: Meclizine 12.5 MG TAB 25 MG PO (05:33)
[2019-09-09] MEDS: Heparin 5,000 UNITS/ML VIAL 5000 UNITS SC ×3 (05:33→20:07)
[2019-09-09 07:45] LABS: Abs Immature Grans 0.13 k/cumm (0.0-0.09); Absolute Basophil Count 0.02 k/cumm (0.0-0.2); Absolute Eosinophil Count 0.13 k/cumm (0.0-0.7); Absolute Neutrophil Count 18.36 k/cumm (1.2-6.7); Basophils % 0.1; Eosinophils % 0.6; HCT 32.4 % (36.0-46.0); HGB 9.8 g/dL (12.0-15.5); Immature Grans % 0.6; Lymphocytes % 7.7; Mean Corp. HGB Concentration 30.2 g/dL (32.0-36.0); Mean Corpuscular Hemoglobin 24.7 pg (27.0-33.0); Mean Corpuscular Volume 81.8 fL (80-95); Mean Platelet Volume 9.6 fL (8.0-11.0); Monocytes % 4.5; Neutrophils % 86.5; Platelet Count 442 x1000/uL (130-400); RBC 3.96 m/cumm (4.00-5.20); RBC Distribution Width 15.5 % (11.7-14.6); White Blood Cell Count 21.23 k/cumm (4.4-10.8)
[2019-09-09 07:55] LABS: Anion Gap 7.6 mmol/L (3-11); BUN 64 mg/dL (7-18); CO2 32.4 mmol/L (21.0-32.0); CREATININE 1.93 mg/dL (0.55-1.02); Calcium 9.4 mg/dL (8.5-10.1); Chloride 99 mmol/L (98-107); Estimated GFR 25.97 (mL/min/1.73m2); Glucose 313 mg/dL (74-106); Potassium 4.5 mmol/L (3.5-5.1); Sodium 139 mmol/L (136-145)
[2019-09-09 07:57] LABS: Absolute Lymphocyte Count 1.63 k/cumm (1.2-3.4); Absolute Monocyte Count 0.96 k/cumm (0.11-0.7)
[2019-09-09 08:05] VITALS: BP 125/72; PULSE 61; RESP 18; TEMP 38.5; O2SAT 95
[2019-09-09] MEDS: Insulin Aspart 300 UNITS/3 ML PEN SC ×7 (08:29→21:29)
[2019-09-09] MEDS: Cyanocobalamin 500 MCG TAB 1000 MCG PO (08:31)
[2019-09-09] MEDS: dilTIAZem CD 120 MG CAPCR 240 MG PO (08:31)
[2019-09-09] MEDS: Folic Acid 1 MG TAB PO (08:31)
[2019-09-09] MEDS: Nystatin POWDER 60 GM JAR TP ×2 (08:32→21:20)
[2019-09-09] MEDS: Atorvastatin 40 MG TAB PO (08:32)
[2019-09-09] MEDS: Aspirin E.C. 81 MG TABEC PO (08:32)
[2019-09-09] MEDS: Omeprazole 20 MG CAPCR 80 MG PO ×2 (08:32→20:06)
[2019-09-09] MEDS: Calcium 600mg/Vit D 200U TAB 2 TAB PO ×2 (08:32→21:25)
[2019-09-09] MEDS: Metoprolol CR 50 MG TABCR 25 MG PO (08:32)
[2019-09-09] MEDS: Allopurinol 100 MG TAB PO (08:33)
[2019-09-09] MEDS: Gabapentin 600 MG TAB PO ×3 (08:33→20:07)
[2019-09-09] MEDS: DULoxetine 30 MG CAP 60 MG PO (08:33)
[2019-09-09] MEDS: SITagliptin 100 MG TAB PO (08:33)
[2019-09-09] MEDS: predniSONE 20 MG TAB 60 MG PO (08:33)
[2019-09-09] MEDS: Docusate Sodium 100 MG CAP PO ×3 (08:33→20:06)
[2019-09-09] MEDS: Polyethylene Glycol 3350 17 GM PACKET PO (08:37)
[2019-09-09] MEDS: Ergocalciferol 50000 UNITS CAP PO (09:22)
[2019-09-09] MEDS: Budesonide/Formoterol 160/4.5 6 GM 60 PUFF INH IH ×2 (09:27→20:07)
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
[2019-09-09] MEDS: Insulin NPH-Human 300 UNITS/3 ML PEN 10 UNIT SC (11:25)
--- NOTE | 2019-09-09 11:25 | PT.INTREAT ---
Time of Service: 11:25 PT Notes Visit Reasons: WEAKNESS, DEHYDRATION, HYPOKALEMIA Inpatient Physical Therapy Treatment Note [facility] Date: 09/09/19 PRECAUTIONS: Fall SUBJECTIVE: Ann-Marie is agreeable to participating in PT. She reports that she is feeling much better today, although states that she has been struggling with managing her blood sugar levels since she's been admitted. OBJECTIVE: PAIN: In a.m., patient reports back pain prior to starting PT, but no c/o pain during PT session BED MOBILITY/TRANSFERS Sit-stand: S Stand-sit: S GAIT Assistive Device: FWW Weight bearing: Full Assist: CGA in a.m.; SBA in p.m. Distance: 120' in both a.m. and p.m. Deviation: R knee buckling t/o a.m. session - all self-recovered, slow pace; increased pacing, no knee buckling in p.m. ASSESSMENT: Patient tolerated session well without complaint. She was able to tolerate a progression in gait distance, demonstrating increased pacing in p.m., with FWW support and SBA. She would benefit from continued gait and transfer training, as well as strengthening for improved mobility. PLAN: Continue with PT's POC TREATMENT CODE/TIME: Session 1: 30 minutes; 05223 x2 Session 2: 15 minutes; 20573
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
[2019-09-09 15:58] VITALS: BP 130/77; PULSE 72; RESP 18; TEMP 36.5; O2SAT 93
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
[2019-09-09] MEDS: rOPINIRole 1 MG TAB 2 MG PO (20:06)
[2019-09-09] MEDS: traMADol 50 MG TAB PO (20:06)
[2019-09-09 20:39] VITALS: BP 132/69; PULSE 73; RESP 16; TEMP 36.2; O2SAT 94
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
[2019-09-09] MEDS: Insulin Glargine 300 UNITS/3 ML PEN 20 UNITS SC (21:22)
[2019-09-09 23:54] VITALS: BP 132/70; PULSE 73; RESP 19; TEMP 36.9; O2SAT 96
[2019-09-10] MEDS: Heparin 5,000 UNITS/ML VIAL 5000 UNITS SC ×3 (05:32→20:55)
[2019-09-10 07:42] LABS: Abs Immature Grans 0.19 k/cumm (0.0-0.09); Absolute Eosinophil Count 0.04 k/cumm (0.0-0.7); Absolute Lymphocyte Count 2.06 k/cumm (1.2-3.4); Eosinophils % 0.2; HCT 33.8 % (36.0-46.0); HGB 10.2 g/dL (12.0-15.5); Immature Grans % 0.9; Mean Corp. HGB Concentration 30.2 g/dL (32.0-36.0); Mean Corpuscular Hemoglobin 24.7 pg (27.0-33.0); Mean Corpuscular Volume 81.8 fL (80-95); Mean Platelet Volume 9.4 fL (8.0-11.0); Monocytes % 5.3; Neutrophils % 83.6; Platelet Count 470 x1000/uL (130-400); RBC 4.13 m/cumm (4.00-5.20); RBC Distribution Width 15.8 % (11.7-14.6); White Blood Cell Count 20.64 k/cumm (4.4-10.8)
[2019-09-10 07:45] VITALS: BP 118/69; PULSE 64; RESP 17; TEMP 36.6; O2SAT 93
[2019-09-10 07:47] LABS: Absolute Monocyte Count 1.09 k/cumm (0.11-0.7); Absolute Neutrophil Count 17.26 k/cumm (1.2-6.7)
[2019-09-10 07:58] LABS: Anion Gap 5.4 mmol/L (3-11); BUN 61 mg/dL (7-18); CO2 34.6 mmol/L (21.0-32.0); CREATININE 1.85 mg/dL (0.55-1.02); Calcium 9.8 mg/dL (8.5-10.1); Chloride 100 mmol/L (98-107); Estimated GFR 27.27 (mL/min/1.73m2); Glucose 221 mg/dL (74-106); Potassium 4.6 mmol/L (3.5-5.1); Sodium 140 mmol/L (136-145)
[2019-09-10] MEDS: Budesonide/Formoterol 160/4.5 6 GM 60 PUFF INH IH ×2 (07:58→19:58)
[2019-09-10 08:11] LABS: NT-proBNP 1570 pg/mL (<300)
[2019-09-10] MEDS: Metoprolol CR 50 MG TABCR 25 MG PO (08:35)
[2019-09-10] MEDS: Omeprazole 20 MG CAPCR 80 MG PO ×2 (08:37→19:56)
[2019-09-10] MEDS: Torsemide 20 MG TAB PO (08:37)
[2019-09-10] MEDS: SITagliptin 100 MG TAB PO (08:37)
[2019-09-10] MEDS: Cyanocobalamin 500 MCG TAB 1000 MCG PO (08:38)
[2019-09-10] MEDS: Atorvastatin 40 MG TAB PO (08:38)
[2019-09-10] MEDS: Acetaminophen 500 MG TAB 1000 MG PO (08:38)
[2019-09-10] MEDS: DULoxetine 30 MG CAP 60 MG PO (08:38)
[2019-09-10] MEDS: Folic Acid 1 MG TAB PO (08:38)
[2019-09-10] MEDS: Aspirin E.C. 81 MG TABEC PO (08:38)
[2019-09-10] MEDS: traMADol 50 MG TAB PO ×2 (08:38→14:35)
[2019-09-10] MEDS: predniSONE 20 MG TAB 40 MG PO (08:38)
[2019-09-10] MEDS: Gabapentin 600 MG TAB PO ×3 (08:38→19:58)
[2019-09-10] MEDS: Allopurinol 100 MG TAB PO (08:39)
[2019-09-10] MEDS: dilTIAZem CD 120 MG CAPCR 240 MG PO (08:39)
[2019-09-10] MEDS: Calcium 600mg/Vit D 200U TAB 2 TAB PO ×2 (08:39→19:55)
[2019-09-10] MEDS: Docusate Sodium 100 MG CAP PO ×3 (08:39→19:58)
[2019-09-10] MEDS: Insulin Aspart 300 UNITS/3 ML PEN SC ×7 (08:40→20:52)
[2019-09-10] MEDS: Insulin NPH-Human 300 UNITS/3 ML PEN 10 UNIT SC (08:41)
[2019-09-10] MEDS: Nystatin POWDER 60 GM JAR TP ×2 (08:42→20:10)
--- NOTE | 2019-09-10 08:59 | OTTR_ITS ---
Date of service: 09/10/19 Time of Service: 08:25 Occupational Therapy Notes Occupational Therapy Inpatient Treatment Note Date: 09/10/19 PRECAUTIONS: Fall, Standard SUBJECTIVE: Pt was sitting in chair when OT arrived. She was agreeable to OT session and notes that she did not sleep well last night. OBJECTIVE: PAIN: no c/o pain specifically in OT session but states that she has continued to have LBP. DRESSING: Lower Extremity: OT educated and trained pt in LE dressing with use of odd ticket clerk, long handled shoe horn and sock aid. Pt was able to demonstrate sock aid with ideal technique. She functionally required min vc and mod (A) for don and doffing pants. Pt has decreased ROM of (R) LE and requires max (A) to get (R) leg into pants. Pt was able to don and doff (B) pants with fair technique. EATING: Sitting in chair (I) with eating routine. PLAN: Progression of dressing routine with adaptive equipment, increased standing tolerance at sink, progression of ADLs in the standing position. TREATMENT CODES/TIME: [id number], 30 minutes (08:25) Hazel Cherry OTR/L [facility]
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
--- NOTE | 2019-09-10 14:12 | W.PM.PROGNOT ---
Date of Service Date of service: 09/10/19 Time of Service: 11:30 Assessment and Plan Assessment and plan (1) Acute kidney injury superimposed on chronic kidney disease: Status: Acute Assessment and plan: Renal function is improving. Negative fluid balance with reduced dose torsemide. Likely to go home on reduced dose torsemide and metolazone on hold until stabilizes with regard to BUN and creatinine and weight. Likely to require further fine-tuning of her diuretics as an outpatient. (2) Acute on chronic diastolic (congestive) heart failure: Status: Acute Assessment and plan: Has not shown any signs or symptoms of decompensation with reduction in her diuretic. Continue to monitor intake, output, weight and symptoms. (3) Back pain: Status: Acute Assessment and plan: Back and rib pain improving with time. Unclear if steroids have made any difference. Rapid taper off given difficulties with diabetes. Monitor for exacerbation. (4) Diabetes mellitus: Status: Chronic Assessment and plan: Continues with NPH insulin with prednisone. Blood sugars are starting to come down we may have to back off or stop the NPH soon. Given her chronic kidney disease need to adjust the dose of sitagliptin downward. Plan on discharge home on reduced dose Citic [place], Victoza and glipizide at the current dosages. 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 Continue to monitor labs with manipulation of her medications. (6) Essential hypertension: Status: Chronic Assessment and plan: Blood pressure acceptable on current doses of diltiazem, metoprolol and torsemide. Continue to monitor. (7) Leukocytosis: Status: Acute Assessment and plan: Has not been febrile for 48 hours. I am attributing leukocytosis (and thrombocytosis) to steroids. Monitor white count, monitor for any signs or symptoms of infection. Subjective Subjective Interval history since last seen: Feeling better overall. Has not had any further sweats or chills. No chest pain. No orthopnea. No shortness of breath walking in the [place]. Has not noticed any ankle swelling with the significant reduction in diuretics. Blood sugars remain high but are coming down. Spirits are improving. Exam Narrative Exam Narrative: Talkative, no acute distress. Temperature 36.6. Blood pressure 118/69 SaO2 on room air 93%. (Wears oxygen at nighttime chronically). No JVD seated at 30 degrees recumbency. Lungs clear. Regular heart rhythm without murmur S3 or S4 heard. Active bowel sounds with no abdominal tenderness. No pitting edema at the ankles. Objective Objective Clinical Data: Abnormal lab results 09/10/19 09/10/19 09/10/19 Range/Units 07:20 07:20 07:20 WBC 20.64 H (4.4-10.8) k/cumm Hgb 10.2 L (12.0-15.5) g/dL Hct 33.8 L (36.0-46.0) % MCH 24.7 L (27.0-33.0) pg MCHC 30.2 L (32.0-36.0) g/dL RDW 15.8 H (11.7-14.6) % Plt Count 470 H (130-400) x1000/uL Absolute Neutrophils 17.26 H (1.2-6.7) k/cumm Absolute Monocytes 1.09 H (0.11-0.7) k/cumm Carbon Dioxide 34.6 H (21.0-32.0) mmol/L BUN 61 H (7-18) mg/dL Creatinine 1.85 H (0.55-1.02) mg/dL Glucose 221 H D (74-106) mg/dL NT-Pro-B Natriuret Pep 1570 H (<300) pg/mL Vital Signs Temperature 36.6 C 09/10/19 07:45 Temperature Source Temporal Artery Scan 09/10/19 07:45 Pulse 64 09/10/19 07:45 Pulse Rhythm Regular 09/10/19 05:01 Pulse 62 09/06/19 20:31 Respiratory Rate 17 09/10/19 07:45 Respiratory Effort Non-Labored 09/10/19 05:01 Respiratory Depth Normal 09/10/19 05:01 Respiratory Pattern Normal 09/10/19 05:01 Blood Pressure 118/69 09/10/19 07:45 Blood Pressure Mean 69 09/06/19 20:31 Blood Pressure Position Supine 09/06/19 12:17 Pulse Oximetry 93 L 09/10/19 07:45 Oxygen Delivery Method Room Air 09/10/19 07:45 Oxygen Flow Rate 0 09/10/19 07:45 Pain Level 7 09/10/19 08:38 Comment 09/06/19 21:35 Intake & Output 09/09/19 09/10/19 09/10/19 23:59 11:59 23:59 Intake Total 1560 / 2040 240 / 240 Output Total 1125 / 3925 2450 / 2450 Balance 435 / -1885 -2210 / -2210 Weight 124 kg Intake: Oral 1560 / 2040 240 / 240 Output: Urine 1125 / 3925 2450 / 2450 Other: Urine Color Yellow Pale Yellow Urine Appearance Clear Clear Stool Size Moderate Stool Characteristics Soft Formed Laboratory Results WBC 20.64 k/cumm (4.4-10.8) H 09/10/19 07:20 RBC 4.13 m/cumm (4.00-5.20) 09/10/19 07:20 Hgb 10.2 g/dL (12.0-15.5) L 09/10/19 07:20 Hct 33.8 % (36.0-46.0) L 09/10/19 07:20 MCV 81.8 fL (80-95) 09/10/19 07:20 MCH 24.7 pg (27.0-33.0) L 09/10/19 07:20 MCHC 30.2 g/dL (32.0-36.0) L 09/10/19 07:20 RDW 15.8 % (11.7-14.6) H 09/10/19 07:20 Plt Count 470 x1000/uL (130-400) H 09/10/19 07:20 MPV 9.4 fL (8.0-11.0) 09/10/19 07:20 Immature Gran % 0.9 09/10/19 07:20 Neutrophils % 83.6 09/10/19 07:20 Lymphocytes % 10.0 09/10/19 07:20 Monocytes % 5.3 09/10/19 07:20 Eosinophils % 0.2 09/10/19 07:20 Basophils % 0.0 09/10/19 07:20 Absolute Neutrophils 17.26 k/cumm (1.2-6.7) H 09/10/19 07:20 Absolute Lymphocytes 2.06 k/cumm (1.2-3.4) 09/10/19 07:20 Absolute Monocytes 1.09 k/cumm (0.11-0.7) H 09/10/19 07:20 Absolute Eosinophils 0.04 k/cumm (0.0-0.7) 09/10/19 07:20 Absolute Basophils 0.00 k/cumm (0.0-0.2) 09/10/19 07:20 Sodium 140 mmol/L (136-145) 09/10/19 07:20 Potassium 4.6 mmol/L (3.5-5.1) 09/10/19 07:20 Chloride 100 mmol/L (98-107) 09/10/19 07:20 Carbon Dioxide 34.6 mmol/L (21.0-32.0) H 09/10/19 07:20 Anion Gap 5.4 mmol/L (3-11) 09/10/19 07:20 BUN 61 mg/dL (7-18) H 09/10/19 07:20 Creatinine 1.85 mg/dL (0.55-1.02) H 09/10/19 07:20 Estimated GFR/1.73 m2 27.27 (mL/min/1.73m2) 09/10/19 07:20 Glucose 221 mg/dL (74-106) H D 09/10/19 07:20 Calcium 9.8 mg/dL (8.5-10.1) 09/10/19 07:20 Magnesium 1.8 mg/dL (1.8-2.4) 09/08/19 06:00 Total Bilirubin 0.3 mg/dL (0.2-1.0) 09/06/19 14:55 AST 13 U/L (15-37) L 09/06/19 14:55 ALT 22 U/L (14-59) 09/06/19 14:55 Alkaline Phosphatase 123 U/L (46-116) H 09/06/19 14:55 Troponin I < 0.05 ng/Ml (<0.06) 09/06/19 14:55 NT-Pro-B Natriuret Pep 1570 pg/mL (<300) H 09/10/19 07:20 Total Protein 8.3 g/dL (6.4-8.2) H 09/06/19 14:55 Albumin 3.4 g/dL (3.4-5.0) 09/06/19 14:55 Urine Color Yellow (Yellow) 09/08/19 20:00 Urine Clarity Clear (Clear) 09/08/19 20:00 Urine pH 6.5 (5-8) 09/08/19 20:00 Ur Specific [place] 1.010 (1.005-1.025) 09/08/19 20:00 Urine Protein Negative mg/dL (Negative) 09/08/19 20:00 Urine Ketones Negative mg/dL (Negative) 09/08/19 20:00 Urine Blood Moderate (Negative) H 09/08/19 20:00 Urine Nitrite Negative (Negative) 09/08/19 20:00 Urine Bilirubin Negative (Negative) 09/08/19 20:00 Urine Urobilinogen 0.2 EU/dL (Up TO 0.2) 09/08/19 20:00 Ur Leukocyte Esterase Negative (Negative) 09/08/19 20:00 Urine RBC 10-20 HPF (0-2) H 09/08/19 20:00 Urine WBC 10-20 HPF (0-5) H 09/08/19 20:00 Ur Epithelial Cells Moderate HPF (Negative) 09/08/19 20:00 Urine Crystals Not Applicable 09/08/19 20:00 Urine Bacteria Few HPF (Negative) 09/08/19 20:00 Urine Mucus Not Applicable 09/08/19 20:00 Ur Culture Indicated? No/sq. contamination 09/08/19 20:00 Urine Glucose 500 mg/dL (Negative) H 09/08/19 20:00
[2019-09-10 16:18] VITALS: BP 94/73; PULSE 79; TEMP 35.7; O2SAT 94
--- NOTE | 2019-09-10 16:29 | PT.INTREAT ---
Date of service: 09/10/19 Time of Service: 16:29 PT Notes Visit Reasons: WEAKNESS, DEHYDRATION, HYPOKALEMIA Inpatient Physical Therapy Treatment Note [facility] Date: 09/10/19 PRECAUTIONS: Fall SUBJECTIVE: Ann-Marie is agreeable to participating in PT. She reports that she is feeling much better today. OBJECTIVE: PAIN: No c/o pain BED MOBILITY/TRANSFERS Sit-stand: I Stand-sit: I GAIT Assistive Device: FWW Weight bearing: Full Assist: S Distance: 200' ASSESSMENT: Patient tolerated session well without complaint. She was able to tolerate a progression in gait distance with FWW support and supervision. She would benefit from continued gait and transfer training, as well as strengthening for improved mobility. PLAN: Continue with PT's POC TREATMENT CODE/TIME: Session 1: 15 minutes; [id number]
[2019-09-10] MEDS: rOPINIRole 1 MG TAB 2 MG PO (19:56)
[2019-09-10 20:47] LABS: Glucose 416 mg/dL (74-106)
[2019-09-10] MEDS: Insulin Glargine 300 UNITS/3 ML PEN 20 UNITS SC (20:53)
[2019-09-11 00:37] VITALS: BP 124/70; PULSE 67; RESP 19; TEMP 36.2; O2SAT 98
[2019-09-11] MEDS: Heparin 5,000 UNITS/ML VIAL 5000 UNITS SC (06:27)
[2019-09-11 07:22] LABS: HCT 33.8 % (36.0-46.0); HGB 10.2 g/dL (12.0-15.5); Mean Corp. HGB Concentration 30.2 g/dL (32.0-36.0); Mean Corpuscular Hemoglobin 24.6 pg (27.0-33.0); Mean Corpuscular Volume 81.6 fL (80-95); Mean Platelet Volume 9.5 fL (8.0-11.0); Platelet Count 455 x1000/uL (130-400); RBC 4.14 m/cumm (4.00-5.20); White Blood Cell Count 17.78 k/cumm (4.4-10.8)
[2019-09-11 07:30] LABS: BUN 65 mg/dL (7-18); CREATININE 2.01 mg/dL (0.55-1.02); Calcium 9.5 mg/dL (8.5-10.1); Chloride 97 mmol/L (98-107); Estimated GFR 24.78 (mL/min/1.73m2); Glucose 197 mg/dL (74-106); Potassium 4.3 mmol/L (3.5-5.1); Sodium 138 mmol/L (136-145)
[2019-09-11] MEDS: Metoprolol CR 50 MG TABCR 25 MG PO (08:29)
[2019-09-11] MEDS: Atorvastatin 40 MG TAB PO (08:30)
[2019-09-11] MEDS: Calcium 600mg/Vit D 200U TAB 2 TAB PO (08:30)
[2019-09-11] MEDS: traMADol 50 MG TAB PO (08:31)
[2019-09-11] MEDS: predniSONE 20 MG TAB PO (08:31)
[2019-09-11] MEDS: Aspirin E.C. 81 MG TABEC PO (08:31)
[2019-09-11] MEDS: DULoxetine 30 MG CAP 60 MG PO (08:31)
[2019-09-11] MEDS: Allopurinol 100 MG TAB PO (08:31)
[2019-09-11] MEDS: dilTIAZem CD 120 MG CAPCR 240 MG PO (08:31)
[2019-09-11] MEDS: Docusate Sodium 100 MG CAP PO (08:31)
[2019-09-11] MEDS: Omeprazole 20 MG CAPCR 80 MG PO (08:31)
[2019-09-11] MEDS: Folic Acid 1 MG TAB PO (08:32)
[2019-09-11] MEDS: Gabapentin 600 MG TAB PO (08:32)
[2019-09-11] MEDS: Cyanocobalamin 500 MCG TAB 1000 MCG PO (08:32)
[2019-09-11] MEDS: Torsemide 20 MG TAB PO (08:32)
[2019-09-11] MEDS: Insulin Aspart 300 UNITS/3 ML PEN SC ×4 (08:33→12:03)
[2019-09-11] MEDS: Insulin NPH-Human 300 UNITS/3 ML PEN 10 UNIT SC (08:34)
[2019-09-11] MEDS: Nystatin POWDER 60 GM JAR TP (08:37)
[2019-09-11] MEDS: Polyethylene Glycol 3350 17 GM PACKET PO (08:56)
[2019-09-11] MEDS: Ergocalciferol 50000 UNITS CAP PO (08:56)
[2019-09-11 09:23] VITALS: BP 125/75; PULSE 71; RESP 18; TEMP 36.4; O2SAT 96
[2019-09-11] MEDS: Budesonide/Formoterol 160/4.5 6 GM 60 PUFF INH IH (10:19)
--- NOTE | 2019-09-11 11:36 | PDOC.HHF2F ---
Home Health Certification Home Health Certification: 1. Encounter Date and Reason I certify that NARENDRA BOYER was seen by Darien Farrar on 09/11/19 and that I had a [id number] encounter with this patient that meets the physician face to face encounter requirements. 2. Clinical Findings Supporting Skilled Need and Homebound Status I certify that home health services are medically necessary, include either intermittent mcfp and/or physical/speech therapy, and that this patient is homebound in that absences from the home require considerable and taxing effort and are infrequent or of short duration, or are attributable to the need to receive medical care. [X] (a) Attached documentation from encounter provides clinical findings supporting skilled need and homebound status (including what assistance patient requires to leave the home). The encounter with the patient was in whole, or in part, for the following medical condition, which is the primary reason for home health care: WEAKNESS, DEHYDRATION, HYPOKALEMIA, iatrogenic overdiuresis, congestive heart failure Long-Term: Assess respiratory status, weight, medication adherence Physical Therapy: Improvement for safe transfers and fall risk reduction Speech Therapy: Homebound: Due to multiple chronic medical problems, debility from recent hospitalization 3. Certification and Authentication I certify that I composed the above information based on my clinical judgement relating to this patient's medical condition and, if applicable, clinical findings communicated to me by the NPP or inpatient physician who performed the Home Health Referral. All further orders will be obtained through Dr. Laisha Mcmahon (Community Based Physician - PCP)
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
--- NOTE | 2019-09-11 13:40 | PDOC.CMDIS ---
LACE Index Scoring Tool - Questions: Length of Stay (in days): 4 - 6 Acuity (Admit via E.D.?): Yes Comorbidities: Diabetes w/o Complication, Congestive Heart Failure, Liver or Renal Disease E.D. Visits: 6 - Answers: Total Score: 16 Risk of Readmission: High Risk Care Management Discharge Reason for Hospitalization: Weakness, dehydration, hypokalemia Discharge Plan: Ann-Marie will return home when medically cleared. She will have new [facility] orders for RN and PT; CM faxed to [facility]. She will follow up with her PCP, as recommended, and transport home with private vehicle with family. Patient/Family Education Needs: Review discharge instructions, discuss Ask Me Three. Services Needed at Discharge: Home Health Care Services (RN/PT)
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
== END 2019-09-11 14:14 | disposition home health service (06) | DRG 682 ==
LOC: ER 20:20 → MS 21:30
PROVIDERS: Family Medicine; Internal Medicine; Nurse Practitioner Family; Physician Assistant; Admitting Provider General Practice; Emergency Provider Emergency Medicine; PCP Family Medicine; Visit Provider Internal Medicine
DX: N17.9 Acute kidney failure, unspecified (principal); I50.33 Acute on chronic diastolic (congestive) heart failure; I13.0 Hypertensive heart and chronic kidney disease with heart failure and stage 1 through stage 4 chronic kidney disease, or unspecified chronic kidney disease; E86.0 Dehydration; E87.6 Hypokalemia; T50.2X5A Adverse effect of carbonic-anhydrase inhibitors, benzothiadiazides and other diuretics, initial encounter; E11.22 Type 2 diabetes mellitus with diabetic chronic kidney disease; N18.3 Chronic kidney disease, stage 3 (moderate); E83.42 Hypomagnesemia; J44.9 Chronic obstructive pulmonary disease, unspecified; I27.20 Pulmonary hypertension, unspecified; R39.2 Extrarenal uremia; M54.9 Dorsalgia, unspecified; E11.65 Type 2 diabetes mellitus with hyperglycemia; T38.0X5A Adverse effect of glucocorticoids and synthetic analogues, initial encounter; S22.39XD Fracture of one rib, unspecified side, subsequent encounter for fracture with routine healing; V49.9XXD Car occupant (driver) (passenger) injured in unspecified traffic accident, subsequent encounter; D72.829 Elevated white blood cell count, unspecified; Z87.891 Personal history of nicotine dependence; D64.9 Anemia, unspecified; Z71.3 Dietary counseling and surveillance
CPT/HCPCS: 36415; 36416; 51702; 80048; 80053; 82947; 82962; 85027; 87449; 93005; 94640; 96361; 96365; 96366; 96368; 96375; 97110; 97163; 97166; 97530; 97535; 99222; 99232; 99233; 99239; 99285; 70450; 71046; 72148; 74176; 81003; 81015; 83735; 83880; 84484; 85025; 93010; J1644; J2270; J2405; J3490; J7512

== ENCOUNTER 2019-09-19 01:57 | Outpatient (CLI) | payer BC, SELFPAY ==
[2019-09-19 12:53] LABS: HGB 10.1 g/dL (12.0-15.5); Mean Corp. HGB Concentration 28.9 g/dL (32.0-36.0); Mean Corpuscular Hemoglobin 24.2 pg (27.0-33.0); Mean Corpuscular Volume 83.9 fL (80-95); Mean Platelet Volume 9.2 fL (8.0-11.0); Platelet Count 483 x1000/uL (130-400); RBC 4.17 m/cumm (4.00-5.20); RBC Distribution Width 17.1 % (11.7-14.6); White Blood Cell Count 11.61 k/cumm (4.4-10.8)
[2019-09-19 14:04] LABS: Hemoglobin A1C 9.1 % (3.8-5.6)
[2019-09-19 14:34] LABS: ALT 27 U/L (14-59); AST 21 U/L (15-37); Albumin 3.3 g/dL (3.4-5.0); Alkaline Phosphatase 78 U/L (46-116); Anion Gap 11.7 mmol/L (3-11); BUN 24 mg/dL (7-18); Bilirubin, Total 0.3 mg/dL (0.2-1.0); CO2 28.3 mmol/L (21.0-32.0); Calcium 8.9 mg/dL (8.5-10.1); Chloride 106 mmol/L (98-107); Estimated GFR 28.15 (mL/min/1.73m2); Glucose 138 mg/dL (74-106); Magnesium 1.3 mg/dL (1.8-2.4); Potassium 4.5 mmol/L (3.5-5.1); Sodium 146 mmol/L (136-145); Total Protein 6.6 g/dL (6.4-8.2)
[2019-09-19 14:35] LABS: Folate > 20.0 ng/mL (8.6-20.0)
== END 2019-09-19 02:17 ==
PROVIDERS: PCP Family Medicine; Visit Provider Family Medicine
DX: E11.9 Type 2 diabetes mellitus without complications (principal); E83.42 Hypomagnesemia; I27.20 Pulmonary hypertension, unspecified; I50.33 Acute on chronic diastolic (congestive) heart failure; J44.9 Chronic obstructive pulmonary disease, unspecified
CPT/HCPCS: 36415; 80053; 85027; 82746; 83036; 83735

== ENCOUNTER 2019-09-26 08:43 | Outpatient (REF) | payer BC, SELFPAY ==
[2019-09-26 10:42] LABS: Abs Immature Grans 0.02 k/cumm (0.0-0.09); Absolute Basophil Count 0.07 k/cumm (0.0-0.2); Absolute Eosinophil Count 0.37 k/cumm (0.0-0.7); Absolute Lymphocyte Count 1.41 k/cumm (1.2-3.4); Absolute Monocyte Count 0.58 k/cumm (0.11-0.7); Absolute Neutrophil Count 4.41 k/cumm (1.2-6.7); Eosinophils % 5.4; HCT 34.6 % (36.0-46.0); HGB 10.1 g/dL (12.0-15.5); Immature Grans % 0.3 %; Lymphocytes % 20.6; Mean Corp. HGB Concentration 29.2 g/dL (32.0-36.0); Mean Corpuscular Hemoglobin 24.2 pg (27.0-33.0); Mean Corpuscular Volume 82.8 fL (80-95); Mean Platelet Volume 9.5 fL (8.0-11.0); Monocytes % 8.5; Neutrophils % 64.2; Platelet Count 453 x1000/uL (130-400); RBC 4.18 m/cumm (4.00-5.20); RBC Distribution Width 16.8 % (11.7-14.6); White Blood Cell Count 6.86 k/cumm (4.4-10.8)
[2019-09-26 10:58] LABS: ALT 20 U/L (14-59); AST 12 U/L (15-37); Albumin 3.1 g/dL (3.4-5.0); Alkaline Phosphatase 81 U/L (46-116); Anion Gap 8.7 mmol/L (3-11); BUN 24 mg/dL (7-18); Bilirubin, Total 0.4 mg/dL (0.2-1.0); CO2 30.3 mmol/L (21.0-32.0); CREATININE 1.56 mg/dL (0.55-1.02); Calcium 8.9 mg/dL (8.5-10.1); Chloride 106 mmol/L (98-107); Estimated GFR 33.21 (mL/min/1.73m2); Glucose 111 mg/dL (74-106); NT-proBNP 562 pg/mL (<300); Potassium 3.9 mmol/L (3.5-5.1); Sodium 145 mmol/L (136-145); Total Protein 6.4 g/dL (6.4-8.2)
== END 2019-09-26 09:03 ==
LOC: LBN 08:43
PROVIDERS: PCP Family Medicine; Visit Provider Family Medicine
DX: I50.33 Acute on chronic diastolic (congestive) heart failure (principal)
CPT/HCPCS: 80053; 83880; 85025

== ENCOUNTER 2019-09-30 00:56 | Outpatient (CLI) | payer BC, SELFPAY ==
--- NOTE | 2019-09-30 10:46 | DI.RAD_ITS ---
EXAM: XR THUMB LT AND XR WRIST LT CLINICAL HISTORY: left thumb and wrist pain, M79.645 FINDINGS: Three views of the wrist and three views of the thumb were obtained. There is a slight ulnar minus variance. There is thinning of the cartilaginous joint spaces of the n avicular multangular joints and the greater multangular 1st metacarpal joint. There is some cortical deformity of the greater multangular and there is a calcific or ossific fragment seen in the soft ti ssues adjacent to the greater multangular of uncertain etiology, dystrophic versus old injury. Subch ondral sclerosis noted involving the navicular greater multangular and greater multangular 1st metaca rpal joints. Note is also made of joint space thinning of the IP joint of the thumb with quite prominent hypertrop hic marginal osteophytes at this joint. Relative sparing of the 1st MCP joint noted. IMPRESSION: Moderate to severe degenerative changes involving navicular multangular, greater multangular 1st meta carpal, and IP joint of the thumb.
== END 2019-09-30 01:16 ==
PROVIDERS: PCP Family Medicine; Visit Provider Family Medicine
DX: M79.645 Pain in left finger(s) (principal); M25.532 Pain in left wrist; M19.042 Primary osteoarthritis, left hand
CPT/HCPCS: 73110; 73140

== ENCOUNTER 2019-10-10 12:15 | Outpatient (REF) | payer BC, SELFPAY ==
[2019-10-10 14:24] LABS: ALT 23 U/L (14-59); AST 15 U/L (15-37); Albumin 3.3 g/dL (3.4-5.0); Alkaline Phosphatase 103 U/L (46-116); Anion Gap 4.1 mmol/L (3-11); BUN 37 mg/dL (7-18); Bilirubin, Total 0.3 mg/dL (0.2-1.0); CO2 38.9 mmol/L (21.0-32.0); CREATININE 2.05 mg/dL (0.55-1.02); Calcium 8.9 mg/dL (8.5-10.1); Chloride 100 mmol/L (98-107); Estimated GFR 24.23 (mL/min/1.73m2); Glucose 173 mg/dL (74-106); NT-proBNP 713 pg/mL (<300); Sodium 143 mmol/L (136-145); Total Protein 6.7 g/dL (6.4-8.2)
[2019-10-10 14:35] LABS: Abs Immature Grans 0.06 k/cumm (0.0-0.09); Absolute Basophil Count 0.08 k/cumm (0.0-0.2); Absolute Eosinophil Count 0.38 k/cumm (0.0-0.7); Absolute Lymphocyte Count 1.41 k/cumm (1.2-3.4); Absolute Monocyte Count 0.99 k/cumm (0.11-0.7); Absolute Neutrophil Count 7.13 k/cumm (1.2-6.7); Basophils % 0.8; Eosinophils % 3.8; HCT 35.2 % (36.0-46.0); HGB 9.9 g/dL (12.0-15.5); Immature Grans % 0.6 %; Mean Corp. HGB Concentration 28.1 g/dL (32.0-36.0); Mean Corpuscular Hemoglobin 23.7 pg (27.0-33.0); Mean Corpuscular Volume 84.4 fL (80-95); Mean Platelet Volume 9.9 fL (8.0-11.0); Monocytes % 9.9; Neutrophils % 70.9; Platelet Count 497 x1000/uL (130-400); RBC 4.17 m/cumm (4.00-5.20); RBC Distribution Width 16.8 % (11.7-14.6); White Blood Cell Count 10.05 k/cumm (4.4-10.8)
[2019-10-10 15:32] LABS: Hemoglobin A1C 8.9 % (3.8-5.6)
== END 2019-10-10 12:35 ==
LOC: LBN 12:15
PROVIDERS: PCP Family Medicine; Visit Provider Family Medicine
DX: E11.9 Type 2 diabetes mellitus without complications (principal); I50.33 Acute on chronic diastolic (congestive) heart failure
CPT/HCPCS: 80053; 83036; 83880; 85025

== ENCOUNTER 2019-10-24 08:44 | Outpatient (REF) | payer BC, SELFPAY ==
[2019-10-24 09:29] LABS: Abs Immature Grans 0.05 k/cumm (0.0-0.09); Absolute Basophil Count 0.12 k/cumm (0.0-0.2); Absolute Monocyte Count 1.31 k/cumm (0.11-0.7); Absolute Neutrophil Count 10.12 k/cumm (1.2-6.7); Basophils % 0.8; Eosinophils % 9.5; HCT 37.9 % (36.0-46.0); HGB 11.2 g/dL (12.0-15.5); Immature Grans % 0.3 %; Lymphocytes % 12.7; Mean Corp. HGB Concentration 29.6 g/dL (32.0-36.0); Mean Corpuscular Hemoglobin 24.2 pg (27.0-33.0); Mean Corpuscular Volume 81.9 fL (80-95); Mean Platelet Volume 9.8 fL (8.0-11.0); Monocytes % 8.8; Neutrophils % 67.9; Platelet Count 513 x1000/uL (130-400); RBC 4.63 m/cumm (4.00-5.20); RBC Distribution Width 16.5 % (11.7-14.6); White Blood Cell Count 14.91 k/cumm (4.4-10.8)
[2019-10-24 09:33] LABS: ALT 28 U/L (14-59); AST 18 U/L (15-37); Albumin 3.5 g/dL (3.4-5.0); Alkaline Phosphatase 115 U/L (46-116); Anion Gap 7.7 mmol/L (3-11); BUN 60 mg/dL (7-18); Bilirubin, Total 0.5 mg/dL (0.2-1.0); CO2 38.3 mmol/L (21.0-32.0); CREATININE 2.32 mg/dL (0.55-1.02); Calcium 9.5 mg/dL (8.5-10.1); Chloride 93 mmol/L (98-107); Glucose 209 mg/dL (74-106); NT-proBNP 360 pg/mL (<300); Potassium 3.4 mmol/L (3.5-5.1); Sodium 139 mmol/L (136-145); Total Protein 7.4 g/dL (6.4-8.2)
[2019-10-24 09:34] LABS: Absolute Eosinophil Count 1.42 k/cumm (0.0-0.7); Absolute Lymphocyte Count 1.89 k/cumm (1.2-3.4)
== END 2019-10-24 09:04 ==
LOC: LBN 08:44
PROVIDERS: PCP Family Medicine; Visit Provider Family Medicine
DX: I50.33 Acute on chronic diastolic (congestive) heart failure (principal)
CPT/HCPCS: 80053; 83880; 85025

== ENCOUNTER 2019-11-06 13:43 | Outpatient (REF) | payer BC, SELFPAY ==
[2019-11-06 12:44] LABS: Abs Immature Grans 0.02 k/cumm (0.0-0.09); Absolute Basophil Count 0.12 k/cumm (0.0-0.2); Absolute Eosinophil Count 1.07 k/cumm (0.0-0.7); Absolute Lymphocyte Count 1.74 k/cumm (1.2-3.4); Absolute Monocyte Count 0.87 k/cumm (0.11-0.7); Absolute Neutrophil Count 5.42 k/cumm (1.2-6.7); Basophils % 1.3; Eosinophils % 11.6; HCT 36.2 % (36.0-46.0); HGB 10.4 g/dL (12.0-15.5); Immature Grans % 0.2 %; Lymphocytes % 18.8; Mean Corp. HGB Concentration 28.7 g/dL (32.0-36.0); Mean Corpuscular Hemoglobin 23.7 pg (27.0-33.0); Mean Corpuscular Volume 82.5 fL (80-95); Mean Platelet Volume 10.1 fL (8.0-11.0); Monocytes % 9.4; Neutrophils % 58.7; Platelet Count 408 x1000/uL (130-400); RBC 4.39 m/cumm (4.00-5.20); RBC Distribution Width 16.9 % (11.7-14.6); White Blood Cell Count 9.24 k/cumm (4.4-10.8)
[2019-11-06 13:36] LABS: ALT 22 U/L (14-59); AST 14 U/L (15-37); Albumin 3.5 g/dL (3.4-5.0); Alkaline Phosphatase 94 U/L (46-116); Anion Gap 8.8 mmol/L (3-11); BUN 51 mg/dL (7-18); Bilirubin, Total 0.4 mg/dL (0.2-1.0); CO2 34.2 mmol/L (21.0-32.0); CREATININE 2.28 mg/dL (0.55-1.02); Calcium 9.1 mg/dL (8.5-10.1); Chloride 98 mmol/L (98-107); Estimated GFR 21.36 (mL/min/1.73m2); Glucose 251 mg/dL (74-106); NT-proBNP 553 pg/mL (<300); Potassium 3.4 mmol/L (3.5-5.1); Sodium 141 mmol/L (136-145)
== END 2019-11-06 14:03 ==
LOC: LBN 13:43
PROVIDERS: PCP Family Medicine; Visit Provider Family Medicine
DX: I50.33 Acute on chronic diastolic (congestive) heart failure (principal)
CPT/HCPCS: 80053; 83880; 85025

== ENCOUNTER 2019-11-18 08:52 | Outpatient (CLI) | payer MEDICARE, MEDICAID, SELFPAY ==
--- NOTE | 2019-11-18 14:45 | DI.RAD_ITS ---
EXAM: XR CHEST 2V PA LATERAL CLINICAL HISTORY: pneumonia vs chf, acute on chronic diastolic heart failure TECHNIQUE: 2D digital imaging was performed. COMPARISON: XR CHEST 2V PA LATERAL from 02/12/2019 XR CHEST 2V PA LATERAL from 09/06/2019 FINDINGS: MEDIASTINUM: Normal. HEART: Normal. PULMONARY VASCULATURE: Normal. LUNGS: No focal consolidating infiltrates. The lungs are hyperinflated with flattened diaphragms con sistent with underlying COPD. PLEURAL SPACE: No pleural effusion or pneumothorax. BONE:Degenerative changes are seen in the spine. OTHER FINDINGS:Sternal wires are present. IMPRESSION: No acute pulmonary findings. DATA REPOSITORY: RADIATION DOSE DELIVERED:
== END 2019-11-18 09:12 ==
PROVIDERS: PCP Family Medicine; Visit Provider Family Medicine
DX: I50.33 Acute on chronic diastolic (congestive) heart failure (principal); R06.02 Shortness of breath; J44.9 Chronic obstructive pulmonary disease, unspecified
CPT/HCPCS: 71046

== ENCOUNTER 2019-11-20 10:06 | Outpatient (REF) | payer MEDICARE, SELFPAY ==
[2019-11-20 10:43] LABS: HGB 10.3 g/dL (12.0-15.5); Mean Corp. HGB Concentration 29.4 g/dL (32.0-36.0); Mean Corpuscular Hemoglobin 23.9 pg (27.0-33.0); Mean Corpuscular Volume 81.2 fL (80-95); Platelet Count 489 x1000/uL (130-400); RBC 4.31 m/cumm (4.00-5.20); RBC Distribution Width 16.6 % (11.7-14.6); White Blood Cell Count 15.17 k/cumm (4.4-10.8)
[2019-11-20 11:04] LABS: ALT 23 U/L (14-59); AST 13 U/L (15-37); Albumin 3.6 g/dL (3.4-5.0); Alkaline Phosphatase 87 U/L (46-116); Anion Gap 7.7 mmol/L (3-11); BUN 55 mg/dL (7-18); Bilirubin, Total 0.4 mg/dL (0.2-1.0); CO2 32.3 mmol/L (21.0-32.0); CREATININE 2.26 mg/dL (0.55-1.02); Calcium 9.5 mg/dL (8.5-10.1); Chloride 100 mmol/L (98-107); Estimated GFR 21.58 (mL/min/1.73m2); Glucose 217 mg/dL (74-106); Magnesium 1.6 mg/dL (1.8-2.4); NT-proBNP 786 pg/mL (<300); Potassium 4.8 mmol/L (3.5-5.1); Sodium 140 mmol/L (136-145); Total Protein 7.1 g/dL (6.4-8.2)
== END 2019-11-20 10:26 ==
LOC: LBN 10:06
PROVIDERS: PCP Family Medicine; Visit Provider Family Medicine
DX: I50.33 Acute on chronic diastolic (congestive) heart failure (principal)
CPT/HCPCS: 80053; 85027; 83735; 83880

== ENCOUNTER 2019-11-27 09:41 | Outpatient (REF) | payer MEDICARE, SELFPAY ==
[2019-11-27 13:09] LABS: HCT 40.1 % (36.0-46.0); HGB 12.3 g/dL (12.0-15.5); Mean Corp. HGB Concentration 30.7 g/dL (32.0-36.0); Mean Corpuscular Hemoglobin 23.7 pg (27.0-33.0); Mean Corpuscular Volume 77.3 fL (80-95); Mean Platelet Volume 10.5 fL (8.0-11.0); Platelet Count 491 x1000/uL (130-400); RBC 5.19 m/cumm (4.00-5.20); RBC Distribution Width 16.1 % (11.7-14.6); White Blood Cell Count 17.12 k/cumm (4.4-10.8)
[2019-11-27 13:45] LABS: ALT 31 U/L (14-59); AST 15 U/L (15-37); Alkaline Phosphatase 109 U/L (46-116); Anion Gap 9.5 mmol/L (3-11); Bilirubin, Total 0.5 mg/dL (0.2-1.0); CO2 28.5 mmol/L (21.0-32.0); CREATININE 2.88 mg/dL (0.55-1.02); Calcium 9.7 mg/dL (8.5-10.1); Chloride 90 mmol/L (98-107); Estimated GFR 16.32 (mL/min/1.73m2); Glucose 358 mg/dL (74-106); Magnesium 1.8 mg/dL (1.8-2.4); NT-proBNP 252 pg/mL (<300); Potassium 5.1 mmol/L (3.5-5.1); Sodium 128 mmol/L (136-145); Total Protein 7.5 g/dL (6.4-8.2)
[2019-11-27 13:50] LABS: BUN 86 mg/dL (7-18)
== END 2019-11-27 10:01 ==
LOC: LBN 09:41
PROVIDERS: PCP Family Medicine; Visit Provider Family Medicine
DX: I50.33 Acute on chronic diastolic (congestive) heart failure (principal); D64.89 Other specified anemias; N18.3 Chronic kidney disease, stage 3 (moderate)
CPT/HCPCS: 80053; 85027; 83735; 83880

== ENCOUNTER 2019-12-04 11:26 | Outpatient (REF) | payer MEDICARE, SELFPAY ==
[2019-12-04 11:06] LABS: HCT 37.1 % (36.0-46.0); HGB 11.3 g/dL (12.0-15.5); Mean Corp. HGB Concentration 30.5 g/dL (32.0-36.0); Mean Corpuscular Hemoglobin 23.9 pg (27.0-33.0); Mean Corpuscular Volume 78.6 fL (80-95); Mean Platelet Volume 10.4 fL (8.0-11.0); RBC 4.72 m/cumm (4.00-5.20); RBC Distribution Width 17.1 % (11.7-14.6); White Blood Cell Count 12.62 k/cumm (4.4-10.8)
[2019-12-04 11:16] LABS: ALT 29 U/L (14-59); AST 14 U/L (15-37); Albumin 3.7 g/dL (3.4-5.0); Alkaline Phosphatase 98 U/L (46-116); Anion Gap 8.1 mmol/L (3-11); BUN 78 mg/dL (7-18); Bilirubin, Total 0.5 mg/dL (0.2-1.0); CO2 30.9 mmol/L (21.0-32.0); CREATININE 2.95 mg/dL (0.55-1.02); Calcium 9.1 mg/dL (8.5-10.1); Chloride 89 mmol/L (98-107); Estimated GFR 15.87 (mL/min/1.73m2); Glucose 344 mg/dL (74-106); Magnesium 1.8 mg/dL (1.8-2.4); Potassium 4.7 mmol/L (3.5-5.1); Sodium 128 mmol/L (136-145); Total Protein 6.8 g/dL (6.4-8.2)
[2019-12-04 11:25] LABS: Platelet Count 289 x1000/uL (130-400)
[2019-12-04 11:43] LABS: NT-proBNP 270 pg/mL (<300)
== END 2019-12-04 11:46 ==
LOC: LBN 11:26
PROVIDERS: PCP Family Medicine; Visit Provider Family Medicine
DX: I50.20 Unspecified systolic (congestive) heart failure (principal); D64.9 Anemia, unspecified; N17.9 Acute kidney failure, unspecified
CPT/HCPCS: 80053; 85027; 83735; 83880

== ENCOUNTER 2019-12-12 09:14 | Outpatient (REF) | payer MEDICARE, SELFPAY ==
[2019-12-12 09:56] LABS: Abs Immature Grans 0.03 k/cumm (0.0-0.09); Absolute Basophil Count 0.02 k/cumm (0.0-0.2); Absolute Eosinophil Count 0.49 k/cumm (0.0-0.7); Absolute Lymphocyte Count 1.36 k/cumm (1.2-3.4); Absolute Neutrophil Count 5.79 k/cumm (1.2-6.7); Basophils % 0.2; Eosinophils % 5.8; HCT 34.8 % (36.0-46.0); HGB 10.5 g/dL (12.0-15.5); Immature Grans % 0.4 %; Lymphocytes % 16.2; Mean Corp. HGB Concentration 30.2 g/dL (32.0-36.0); Mean Corpuscular Hemoglobin 24.3 pg (27.0-33.0); Mean Corpuscular Volume 80.6 fL (80-95); Mean Platelet Volume 10.2 fL (8.0-11.0); Monocytes % 8.3; Neutrophils % 69.1; Platelet Count 328 x1000/uL (130-400); RBC 4.32 m/cumm (4.00-5.20); RBC Distribution Width 17.9 % (11.7-14.6); White Blood Cell Count 8.39 k/cumm (4.4-10.8)
[2019-12-12 10:27] LABS: ALT 37 U/L (14-59); AST 15 U/L (15-37); Albumin 3.5 g/dL (3.4-5.0); Alkaline Phosphatase 81 U/L (46-116); Anion Gap 8.6 mmol/L (3-11); Bilirubin, Total 0.4 mg/dL (0.2-1.0); CO2 30.4 mmol/L (21.0-32.0); CREATININE 2.85 mg/dL (0.55-1.02); Calcium 8.9 mg/dL (8.5-10.1); Chloride 95 mmol/L (98-107); Estimated GFR 16.51 (mL/min/1.73m2); Glucose 366 mg/dL (74-106); Magnesium 1.7 mg/dL (1.8-2.4); NT-proBNP 522 pg/mL (<300); Potassium 5.1 mmol/L (3.5-5.1); Sodium 134 mmol/L (136-145); Total Protein 6.8 g/dL (6.4-8.2)
[2019-12-12 10:38] LABS: BUN 82 mg/dL (7-18)
== END 2019-12-12 09:34 ==
LOC: LBN 09:14
PROVIDERS: PCP Family Medicine; Visit Provider Family Medicine
DX: I50.33 Acute on chronic diastolic (congestive) heart failure (principal); D64.9 Anemia, unspecified; N18.9 Chronic kidney disease, unspecified
CPT/HCPCS: 80053; 83735; 83880; 85025

== ENCOUNTER 2019-12-20 10:00 | Inpatient (IN) | payer MEDICARE, MEDICAID, SELFPAY ==
[2019-12-20] VITALS (27 sets, daily range): BP systolic 96–123; BP diastolic 44–68; PULSE 64–91; RESP 16–28; TEMP 35.6–36.5; O2SAT 94–99
--- NOTE | 2019-12-20 | DI.US_ITS ---
EXAM: US LOWER EXTREMITY VENOUS RT CLINICAL HISTORY: swelling to thigh r/o DVT. TECHNIQUE: Ultrasound performed using standard protocol. COMPARISON: US ECHOCARDIOGRAM from 07/05/2019 FINDINGS: Duplex venous ultrasound was performed according to the usual protocol. The deep veins are freely com pressible throughout and there is normal flow augmentation with manual calf compression. 2D and Doppl er evaluation are unremarkable. IMPRESSION: No evidence of deep venous thrombosis of the right lower extremity DATA REPOSITORY:
--- NOTE | 2019-12-20 10:42 | ED.GENADUL_ITS ---
Discharge Plan Disposition Patient Disposition: [facility] INPATIENT Condition: Serious Discharge Details Chief Complaint: SOB Clinical Impression: SOB (shortness of breath), CHF (congestive heart failure) Primary Care Provider: Laisha Mcmahon ED Provider: Clarence Meek Home Meds and New Rx's Prescriptions: No Action (DME) lancets 25 gauge misc See Dose Instructions .ROUTE .MEDSUPPLY Qty: 100 RF: 5 (DME) blood sugar diagnostic [Blood Glucose Test] strip See Dose Instructions .ROUTE .MEDSUPPLY Qty: 100 RF: 5 (DME) lancets [OneTouch Delica Lancets] 33 gauge misc See Dose Instructions .ROUTE DAILY Qty: 100 RF: 0 estradiol 0.01 % (0.1 mg/gram) cream 1 gm VG DAILY RF: 0 omeprazole 40 mg capsule,delayed release(DR/EC) 40 mg PO BID RF: 0 B-complex with vitamin C [Super B Complex-Vitamin C] Tablet 1 tab PO DAILY RF: 0 calcium carbonate [Oyster Shell Calcium 500] 500 mg calcium (1,250 mg) tablet 500 mg PO DAILY RF: 0 (DME) pen needle, diabetic [1st Tier Unifine Pentips] 31 gauge x 1/4 needle See Dose Instructions .ROUTE .MEDSUPPLY Qty: 450 RF: 5 ropinirole 2 mg tablet 2 mg PO QPM PRN (Reason: restless leg(s)) Qty: 90 RF: 5 gabapentin 600 mg tablet 600 mg PO TID Qty: 270 RF: 12 atorvastatin 40 mg tablet 40 mg PO DAILY Qty: 90 RF: 6 duloxetine 60 mg capsule,delayed release(DR/EC) 60 mg PO DAILY Qty: 90 RF: 12 diltiazem HCl 120 mg capsule,extended release 24hr 240 mg PO DAILY Qty: 180 RF: 5 allopurinol 100 mg tablet 100 mg PO DAILY Qty: 90 RF: 12 baclofen 10 mg tablet 10 mg PO TID Qty: 90 RF: 4 folic acid 1 mg tablet 1 mg PO DAILY Qty: 90 RF: 5 nystatin 100,000 unit/gram cream 1 applic Topical BID PRN (Reason: yeast) Qty: 30 RF: 2 meclizine 12.5 mg tablet 25 mg PO TID PRN (Reason: dizziness) Qty: 60 RF: 3 ergocalciferol (vitamin D2) [Vitamin D2] 50,000 unit capsule 50,000 unit PO Qty: 36 RF: 4 epinephrine [EpiPen 2-Erick] 0.3 mg/0.3 mL auto-injector 0.3 mg IM ONCE Qty: 2 RF: 10 budesonide-formoterol [Symbicort] 160-4.5 mcg/actuation HFA aerosol inhaler 2 puff IH BID Qty: 10.2 RF: 12 metoprolol succinate 50 mg tablet extended release 24 hr 25 mg PO DAILY Qty: 90 RF: 3 Slow-Mag 71.5 mg tablet,delayed release (DR/EC) 71.5 mg PO BID Qty: 180 RF: 4 potassium chloride 20 mEq tablet extended release 20 meq PO DAILY Qty: 90 RF: 5 Hold Instructions: Home Medication placed on hold at Doctor's office spironolactone 50 mg tablet 50 mg PO BID Qty: 180 RF: 7 tramadol 50 mg tablet 100 mg PO QHS Qty: 28 RF: 3 Basaglar KwikPen U-100 Insulin 100 unit/mL (3 mL) insulin pen 35 unit SC DAILY Qty: 45 RF: 4 insulin aspart U-100 [Novolog Flexpen U-100 Insulin] 100 unit/mL (3 mL) insulin pen 15 unit SC TID Qty: 30 RF: 5 torsemide 100 mg tablet 100 mg PO DAILY Qty: 180 RF: 4 metolazone 5 mg tablet 5 mg PO DAILY Qty: 90 RF: 4 Januvia 25 mg tablet 25 mg PO DAILY Qty: 90 RF: 4 polyethylene glycol 3350 [Miralax] 17 gram Powder In Packet 1 g PO PRN PRNRF: 0 magnesium hydroxide [Milk of Magnesia] 400 mg/5 mL Suspension 30 ml PO PRN PRN (Reason: Constipation) RF: 0 aspirin [Aspir-81] 81 mg Tablet,Delayed Release (Dr/Ec) 81 mg PO DAILY Qty: 30 RF: 0 acetaminophen [Tylenol Extra Strength] 500 mg Tablet 1,000 mg PO Q8H PRN PRN (Reason: Pain) Qty: 0 RF: 0 albuterol sulfate 2.5 mg /3 mL (0.083 %) Solution For Nebulization 2.5 mg INHALATION Q2H PRN PRN (Reason: shortness of breath or wheezing) Qty: 0 RF: 0 Medical Decision Making This is a 69-year-old female with an extensive past medical history. She admits that she is a DNR. She has had weight gain and increased shortness of breath without cough or fever worsening over the past 2 weeks. Has been followed by her primary care provider, medication changes made, and unfortunately unable to gain control of her weight loss and retention as an outpatient. Patient does have baseline renal disease which makes diuresis much more complicated. She currently appears well, nontoxic in no respiratory distress. Will initiate car diac work-up including BNP, chest x-ray, to assess fluid retention and baseline laboratory values. Patient maintaining O2 sats with 2.5 L nasal cannula. Patient is currently afebrile, no indication this is cellulitis in nature. Negative Homans sign bilaterally, very low suspicion of any potential DVT. Patient in no acute distress, do not know her renal function or BNP today, will not initiate emergent diuretics at this time. Laboratory values returned revealing white blood cell count of 10.12 hemoglobin 10.9 hematocrit 36.1 sodium 137 potassium 4.6 chloride 96 carbon dioxide 33.7 anion gap 7.3 BUN 84 creatinine 3.27 estimated GFR is 14.09. Magnesium 1.9 troponin less than 0.05 and BNP is 367 Laboratory values reveal that her creatinine is up compared to her baseline but her GFR is not dramatically changed. BNP is only slightly elevated and her chest x-ray is unremarkable. I reached out to patient's primary care, Dr. Mcmahon, who reports that she initially tried to directly admit the patient however given the Covid crisis, hospitalist are not having any direct admissions. Given the patient's complicated past medical history, inability to properly diurese as an outpatient, having already consulted with cardiology, she feels as though the patient likely needs inpatient diuresis, Lasix drip, and close monitoring. I then discussed the case with our hospitalist Dr. Trotter, who is agreeable for admission. I will initiate the Lasix drip per protocol and write bridge orders. Medical Records Medical records reviewed: Yes I reviewed the patient's medical records. Imaging Data Radiologic Study: Attestation: I personally reviewed and interpreted this imaging study as follows: Imaging: X-Ray My impression: Chest x-ray read by me is unremarkable Lab Data Lab results reviewed: Yes I reviewed the patient's lab results. Lab results narrative: Laboratory Tests Range/Units 12/20/19 12/20/19 12/20/19 10:34 10:34 10:34 WBC (4.4-10.8) k/cumm 10.12 RBC (4.00-5.20) m/cumm 4.42 Hgb (12.0-15.5) g/dL 10.9 L Hct (36.0-46.0) % 36.1 MCV (80-95) fL 81.7 MCH (27.0-33.0) pg 24.7 L MCHC (32.0-36.0) g/dL 30.2 L RDW (11.7-14.6) % 17.9 H Plt Count (130-400) x1000/uL 413 H MPV (8.0-11.0) fL 9.5 Immature Gran % % 0.7 Neutrophils % 68.3 Lymphocytes % 15.4 Monocytes % 9.5 Eosinophils % 5.6 Basophils % 0.5 Absolute Neutrophils (1.2-6.7) k/cumm 6.91 H Absolute Lymphocytes (1.2-3.4) k/cumm 1.56 Absolute Monocytes (0.11-0.7) k/cumm 0.96 H Absolute Eosinophils (0.0-0.7) k/cumm 0.57 Absolute Basophils (0.0-0.2) k/cumm 0.05 PT (9.3-11.0) sec INR (0.9-1.1) APTT (21.0-31.4) sec Sodium (136-145) mmol/L 137 Potassium (3.5-5.1) mmol/L 4.6 Chloride (98-107) mmol/L 96 L Carbon Dioxide (21.0-32.0) mmol/L 33.7 H Anion Gap (3-11) mmol/L 7.3 BUN (7-18) mg/dL 84 H* Creatinine (0.55-1.02) mg/dL 3.27 H Estimated GFR/1.73 m2 (mL/min/1.73m2) 14.09 Glucose (74-106) mg/dL 286 H Calcium (8.5-10.1) mg/dL 9.5 Magnesium (1.8-2.4) mg/dL Total Bilirubin (0.2-1.0) mg/dL 0.4 AST (15-37) U/L 15 ALT (14-59) U/L 31 Alkaline Phosphatase (46-116) U/L 91 Troponin I (<0.06) ng/Ml NT-Pro-B Natriuret Pep (<300) pg/mL Total Protein (6.4-8.2) g/dL 8.0 Albumin (3.4-5.0) g/dL 3.7 Urine Color (Yellow) Yellow Urine Clarity (Clear) Clear Urine pH (5-8) 7.0 Ur Specific [place] (1.005-1.025) 1.015 Urine Protein (Negative) mg/dL Negative Urine Ketones (Negative) mg/dL Negative Urine Blood (Negative) Trace-intact H Urine Nitrite (Negative) Negative Urine Bilirubin (Negative) Negative Urine Urobilinogen (Up TO 0.2) EU/dL 0.2 Ur Leukocyte Esterase (Negative) Small H Urine RBC (0-2) HPF 0-2 Urine WBC (0-5) HPF 5-10 Ur Epithelial Cells (Negative) HPF Moderate Urine Crystals (Negative) HPF Negative Urine Bacteria (Negative) HPF Few Urine Casts (Negative) LPF Negative Urine Mucus (Negative) Negative Ur Culture Indicated? No Urine Glucose (Negative) mg/dL 250 H Range/Units 12/20/19 12/20/19 12/20/19 10:34 10:34 10:34 WBC (4.4-10.8) k/cumm RBC (4.00-5.20) m/cumm Hgb (12.0-15.5) g/dL Hct (36.0-46.0) % MCV (80-95) fL MCH (27.0-33.0) pg MCHC (32.0-36.0) g/dL RDW (11.7-14.6) % Plt Count (130-400) x1000/uL MPV (8.0-11.0) fL Immature Gran % % Neutrophils % Lymphocytes % Monocytes % Eosinophils % Basophils % Absolute Neutrophils (1.2-6.7) k/cumm Absolute Lymphocytes (1.2-3.4) k/cumm Absolute Monocytes (0.11-0.7) k/cumm Absolute Eosinophils (0.0-0.7) k/cumm Absolute Basophils (0.0-0.2) k/cumm PT (9.3-11.0) sec 10.2 INR (0.9-1.1) 1.0 APTT (21.0-31.4) sec 24.7 Sodium (136-145) mmol/L Potassium (3.5-5.1) mmol/L Chloride (98-107) mmol/L Carbon Dioxide (21.0-32.0) mmol/L Anion Gap (3-11) mmol/L BUN (7-18) mg/dL Creatinine (0.55-1.02) mg/dL Estimated GFR/1.73 m2 (mL/min/1.73m2) Glucose (74-106) mg/dL Calcium (8.5-10.1) mg/dL Magnesium (1.8-2.4) mg/dL 1.9 Total Bilirubin (0.2-1.0) mg/dL AST (15-37) U/L ALT (14-59) U/L Alkaline Phosphatase (46-116) U/L Troponin I (<0.06) ng/Ml < 0.05 NT-Pro-B Natriuret Pep (<300) pg/mL 367 H Total Protein (6.4-8.2) g/dL Albumin (3.4-5.0) g/dL Urine Color (Yellow) Urine Clarity (Clear) Urine pH (5-8) Ur Specific [place] (1.005-1.025) Urine Protein (Negative) mg/dL Urine Ketones (Negative) mg/dL Urine Blood (Negative) Urine Nitrite (Negative) Urine Bilirubin (Negative) Urine Urobilinogen (Up TO 0.2) EU/dL Ur Leukocyte Esterase (Negative) Urine RBC (0-2) HPF Urine WBC (0-5) HPF Ur Epithelial Cells (Negative) HPF Urine Crystals (Negative) HPF Urine Bacteria (Negative) HPF Urine Casts (Negative) LPF Urine Mucus (Negative) Ur Culture Indicated? Urine Glucose (Negative) mg/dL ECG Data Attestation: I personally reviewed and interpreted this ECG (s) as follows: Interpretation: EKG performed at 1025, reviewed and interpreted by Dr. Oconnor. Sinus rhythm, ventricular rate of 83. No acute ST elevation segments HPI General Mode of arrival: ambulatory . Date/Time Provider Initiated Documentation: 12/20/19 10:01 . Limitations to Documentation: no limitations . Information obtained by: patient . HPI Narrative: This is a 69-year-old female with a history of chronic renal disease, anemia, proximal atrial fibrillation, a flutter, chest pain, pulmonary hypertension, essential hypertension, diabetes, diastolic CHF, hyperlipidemia, presenting to the ER today complaining of shortness of breath worse with lying flat or exertion and a 10 pound weight gain over the past 2 weeks. She is O2 dependent at home and typically wears 2.5 L n glenys cannula all day. Patient reports that roughly 2 weeks ago when this all began her primary care provider increased her furosemide from 50 mg every other day to 100 mg daily. There have been no other medication changes. She reports that may be her right leg is slightly more swollen than her left but that that is normal when she has increased swelling. She denies recent illness or trauma. Denies any chest pain, cough, back pain, abdominal pain, nausea, vomiting, diarrhea or constipation. Reports frequent urination but reports that this is not new, denies any other urinary symptoms. Denies pain or redness in either of her legs. She reports that she takes aspirin daily but is otherwise not anticoagulated. Patient reports that her most recent cardiac problem resulted in CABG approximately 1 year ago Related Data Home Medications Medication Instructions Recorded Confirmed folic acid 1 mg tablet 1 mg PO DAILY #90 tab 05/21/18 12/20/19 nystatin 100,000 unit/gram topical 1 applic TOPICAL BID PRN #30 gm 12/04/18 12/20/19 cream meclizine 12.5 mg tablet 25 mg PO TID PRN #60 tab 12/17/18 12/20/19 blood sugar diagnostic #100 each 12/18/18 12/20/19 lancets 33 gauge #100 each 12/18/18 12/20/19 magnesium hydroxide [Milk of 30 ml PO PRN PRN 01/15/19 12/20/19 Magnesia] polyethylene glycol 3350 [Miralax] 1 g PO PRN PRN 01/15/19 12/20/19 acetaminophen [Tylenol Extra 1,000 mg PO Q8H PRN PRN #0 tab 01/22/19 12/20/19 Strength] aspirin [Aspir-81] 81 mg PO DAILY #30 tab 01/22/19 12/20/19 lancets 25 gauge #100 each 01/29/19 12/20/19 ergocalciferol (vitamin D2) 1,250 50,000 unit PO M-W-F #36 tab-cap 01/30/19 12/20/19 mcg (50,000 unit) capsule albuterol sulfate 2.5 mg INHALATION Q2H PRN PRN #0 ml 02/12/19 12/20/19 diltiazem HCl 120 mg 240 mg PO DAILY #180 cap 02/21/19 12/20/19 capsule,extended release 24 hr epinephrine 0.3 mg/0.3 mL 0.3 mg IM ONCE #2 dose 04/29/19 12/20/19 injection, auto-injector budesonide-formoterol HFA 160 2 puff IH BID #10.2 gm 05/21/19 12/20/19 mcg-4.5 mcg/actuation aerosol inhaler metoprolol succinate 50 mg 25 mg PO DAILY #90 tab 05/24/19 12/20/19 tablet,extended release 24 hr allopurinol 100 mg tablet 100 mg PO DAILY #90 tab-cap 08/26/19 12/20/19 B-complex with vitamin C 1 tab PO DAILY 09/19/19 12/20/19 calcium carbonate 500 mg calcium 500 mg PO DAILY 09/19/19 12/20/19 (1,250 mg) tablet estradiol 1 gm VG DAILY gm 09/19/19 12/20/19 magnesium chloride 71.5 mg 71.5 mg PO BID #180 tab 09/19/19 12/20/19 (magnesium chloride) tablet,delayed release omeprazole 40 mg capsule,delayed 40 mg PO BID 09/19/19 12/20/19 release atorvastatin 40 mg tablet 40 mg PO DAILY #90 tab-cap 10/31/19 12/20/19 duloxetine 60 mg capsule,delayed 60 mg PO DAILY #90 tab-cap 10/31/19 12/20/19 release gabapentin 600 mg tablet 600 mg PO TID #270 tab-cap 10/31/19 12/20/19 pen needle, diabetic 31 gauge x #450 each 10/31/19 12/20/19 1/4 ropinirole 2 mg tablet 2 mg PO QPM PRN #90 tab 10/31/19 12/20/19 potassium chloride 20 mEq 20 meq PO DAILY #90 tab 11/07/19 12/20/19 tablet,extended release spironolactone 50 mg tablet 50 mg PO BID #180 tab 11/29/19 12/20/19 tramadol 50 mg tablet 100 mg PO QHS #28 tab 11/29/19 12/19/19 insulin glargine 100 unit/mL (3 35 unit SC DAILY #45 ml 12/03/19 12/20/19 mL) subcutaneous pen baclofen 10 mg tablet 10 mg PO TID #90 tab 12/04/19 12/20/19 insulin aspart U-100 100 unit/mL 15 unit SC TID #30 ml 12/05/19 12/20/19 (3 mL) subcutaneous pen metolazone 5 mg tablet 5 mg PO DAILY #90 tab 12/13/19 12/20/19 torsemide 100 mg tablet 100 mg PO DAILY #180 tab 12/13/19 12/20/19 sitagliptin 25 mg tablet 25 mg PO DAILY #90 tab 12/17/19 12/20/19 Previous Rx's Medication Instructions Recorded folic acid 1 mg tablet 1 mg PO DAILY #90 tab 05/21/18 nystatin 100,000 unit/gram topical 1 applic TOPICAL BID PRN #30 gm 12/04/18 cream meclizine 12.5 mg tablet 25 mg PO TID PRN #60 tab 12/17/18 blood sugar diagnostic #100 each 12/18/18 lancets 33 gauge #100 each 12/18/18 acetaminophen [Tylenol Extra 1,000 mg PO Q8H PRN PRN #0 tab 01/22/19 Strength] aspirin [Aspir-81] 81 mg PO DAILY #30 tab 01/22/19 lancets 25 gauge #100 each 01/29/19 ergocalciferol (vitamin D2) 1,250 50,000 unit PO M-W-F #36 tab-cap 01/30/19 mcg (50,000 unit) capsule albuterol sulfate 2.5 mg INHALATION Q2H PRN PRN #0 ml 02/12/19 diltiazem HCl 120 mg 240 mg PO DAILY #180 cap 02/21/19 capsule,extended release 24 hr epinephrine 0.3 mg/0.3 mL 0.3 mg IM ONCE #2 dose 04/29/19 injection, auto-injector budesonide-formoterol HFA 160 2 puff IH BID #10.2 gm 05/21/19 mcg-4.5 mcg/actuation aerosol inhaler metoprolol succinate 50 mg 25 mg PO DAILY #90 tab 05/24/19 tablet,extended release 24 hr allopurinol 100 mg tablet 100 mg PO DAILY #90 tab-cap 08/26/19 magnesium chloride 71.5 mg 71.5 mg PO BID #180 tab 09/19/19 (magnesium chloride) tablet,delayed release atorvastatin 40 mg tablet 40 mg PO DAILY #90 tab-cap 10/31/19 duloxetine 60 mg capsule,delayed 60 mg PO DAILY #90 tab-cap 10/31/19 release gabapentin 600 mg tablet 600 mg PO TID #270 tab-cap 10/31/19 pen needle, diabetic 31 gauge x #450 each 10/31/19 1/ ropinirole 2 mg tablet 2 mg PO QPM PRN #90 tab 10/31/19 potassium chloride 20 mEq 20 meq PO DAILY #90 tab 11/07/19 tablet,extended release spironolactone 50 mg tablet 50 mg PO BID #180 tab 11/29/19 tramadol 50 mg tablet 100 mg PO QHS #28 tab 11/29/19 insulin glargine 100 unit/mL (3 35 unit SC DAILY #45 ml 12/03/19 mL) subcutaneous pen baclofen 10 mg tablet 10 mg PO TID #90 tab 12/04/19 insulin aspart U-100 100 unit/mL 15 unit SC TID #30 ml 12/05/19 (3 mL) subcutaneous pen metolazone 5 mg tablet 5 mg PO DAILY #90 tab 12/13/19 torsemide 100 mg tablet 100 mg PO DAILY #180 tab 12/13/19 sitagliptin 25 mg tablet 25 mg PO DAILY #90 tab 12/17/19 Allergies Allergy/AdvReac Type Severity Reaction Status Date / Time venom-honey bee Allergy Severe ANAPHYLAXIS Verified 12/20/19 10:45 adhesive Allergy BLISTERS Verified 12/20/19 10:45 General Stated Complaint: SOB STEPHANIE: 2 Review of Systems Constitutional Constitutional: Denies fatigue, Denies fever(s), Denies headache(s) and Denies weakness Eyes Eyes: Denies change in vision ENT Ears, Nose, Mouth, and Throat: Denies dizziness, Denies headache(s) and Denies sore throat Cardiovascular Cardiovascular: Denies chest pain, Denies irregular heart rhythm, Reports leg edema, Reports dyspnea on exertion and Reports orthopnea Respiratory Respiratory: Denies cough and Reports dyspnea on exertion Gastrointestinal Gastrointestinal: Denies abdominal pain, Denies nausea and Denies vomiting Genitourinary Genitourinary: Denies dysuria Musculoskeletal Musculoskeletal: Reports back pain (Chronic low back pain) Integumentary/Breasts Skin/Breast: Denies rash Neurologic Neurologic: Denies dizziness, Denies headache(s) and Denies weakness Endocrine Endocrine: Denies fatigue Hematologic/Lymphatic Hematologic/Lymphatic: Denies easy bruising [facility] Medical History Abnormal mammography (Resolved) 08/10/06 Acute kidney injury superimposed on chronic kidney disease (Inactive) Anemia (Chronic) Ankle pain (Resolved 03/13/14) Atrial fibrillation (Chronic) paroxysmal, onset 2015, anticoagulated w/ Xarelto; anticoagulation discontinued after left atrial appendage excision 01/03/2019 Atrial fibrillation Atrial flutter (Inactive) Carpal tunnel syndrome Carpal tunnel syndrome (Resolved 08/10/06) BILATERAL R S/P SURGERY Cervical disc disorder with myelopathy (Resolved 08/21/08) S/P surgery x 2 Cervical spondylosis with myelopathy Chest pain (Resolved) Neg Stress test Chronic obstructive lung disease (Chronic) CKD (chronic kidney disease) stage 3, GFR 30-59 ml/min (Chronic) Cr about 2.5 Constipation (Inactive) Dehydration (Inactive) Diabetes mellitus (Chronic) Diabetes mellitus (Resolved) 09/20/10 Positive Microalbumin Diastolic CHF (Inactive) Essential hypertension (Chronic) Folate deficiency (Resolved 02/15/16) Gout Gout (Chronic 07/06/11) Gram-positive bacteremia (Resolved) HAP (hospital-acquired pneumonia) (Resolved 01/15/19) HCAP (healthcare-associated pneumonia) (Resolved) Hepatomegaly (Resolved) 06/10/04 Hip joint inflamed (Resolved 09/03/15) Hip pain, left (Chronic) Hip pain, right (Chronic) Hyperlipidemia (Chronic 08/10/00) Hypertension Hypomagnesemia (Inactive) Hypoxia (Inactive) Low back pain (Resolved 04/10/03) DISC HERNIATION L4. MULTILEVEL DJD/SPINAL STENOSIS BY MRI; S/P surgery Lump in neck (Resolved) Menopausal syndrome (Resolved) 07/11/03 Muscle fatigue (Resolved) 03/04/13 PAF (paroxysmal atrial fibrillation) (Acute) Posterior tibial tendon dysfunction (Resolved) 02/03/16 Postmenopausal bleeding (Resolved) neg. endometrial biopsy Postoperative wound dehiscence (Resolved 12/23/15) Prerenal azotemia (Inactive) Primary osteoarthritis of left hip (Resolved 09/17/15) Pulmonary hypertension (Chronic) Renal impairment (Resolved 07/11/03) ADRENAL MASS. F/U W/ KINLAW positive microalbumin Restless leg syndrome (Chronic) Rotator cuff syndrome (Resolved 08/01/09) Shingles (Resolved) Smoker (Resolved 06/30/16) 01/17/17 1-2 cig/wk Spinal stenosis of lumbar region (Chronic 02/15/16) Spinal stenosis of lumbar region at multiple levels Tarsal tunnel syndrome (Resolved) 06/11/13 Tarsal tunnel syndrome (Resolved 06/11/13) Trochanteric bursitis (Resolved) 03/18/13 Upper respiratory tract infection (Resolved 08/03/15) UTI (urinary tract infection) (Inactive) Vitamin D deficiency Vitamin D deficiency (Resolved) Weakness (Inactive) Surgical History Arthrodesis right 2nd toe Cataract (Inactive 01/07/14) FOLLOWED BY [employer] cervical repair (~10/2008) C6-C7 DISK; RECURRENT SURGERY Cholecystectomy (07/31/13) Endometrial Biopsy NEG H/O arthrodesis (Resolved) right second toe H/O Spinal surgery (Resolved) multiple spine surgeries; low back x 2; She had multilevel DJD and spinal stenosis; disc herniation. 2008-cervical repair; C6-C7 disc; recurrent surgery. History of bilateral tubal ligation (Resolved) 09/11/80 History of gynecologic surgery (Resolved) endometrial biopsy-neg History of hip surgery (Resolved) 11/10/15 left hip arthroplasty 12/04/15-placement of wound VAC to left hip History of orthopedic surgery (Resolved) 09/11/97 tarsal tunnel release Left eye surgery 12/31/17 Ligation of fallopian tube (~1980) Open Carpal Tunnel release Right wrist surgery 10/26/17 Rotator Cuff Repair (~1980) S/P CABG (coronary artery bypass graft) (Chronic 01/03/19) 4 vessel CABG and [place] [facility] [place] S/P carpal tunnel release (Resolved) S/P cholecystectomy (Resolved) 09/11/12 S/P rotator cuff repair (Resolved) 09/11/80 SPINE SURGERY Multiple spine surgeries, low back x 2. She had multilevel DJD and spinal stenosis, disc herniation Status post incision and drainage (Resolved) 12/04/15 left hip surgical wound dehiscence and infection tarsal tunnel release (~1997) Total replacement of hip [facility]; LEFT HIP Family History Mother Diabetes Essential hypertension Personal history of malignant neoplasm KIDNEY/LIVER/BRAIN Heart disease Hyperlipidemia Stroke Asthma Father Diabetes Essential hypertension Personal history of malignant neoplasm BONE Heart disease Asthma Sister Diabetes Essential hypertension Depression Heart disease Asthma Grandfather No problems noted. Grandfather No problems noted. Grandmother Personal history of malignant neoplasm UTERINE Grandmother Diabetes Aunt Personal history of malignant neoplasm BREAST Brother Hyperlipidemia Stroke Sister Asthma Son Asthma Daughter Depression Asthma Daughter Asthma Daughter Depression Neoplasm Asthma Brother No problems noted. Social History Smoking/Tobacco Use Status: Former Tobacco Use Quit Date: 12/10/18 Tobacco: How many years used: 20 Alcohol Intake: current Alcohol Intake frequency: a few times a week Drug use: Never Substance use type: does not use Household members: other Details: 2 current occupation: [employer] Pets and animals: Yes Pets and animals: cat(s), dog(s) and horse(s) What type of physical activity do you participate in: none Saniya/Islam: Jehovah'S Witness Special saniya needs: No Do you feel safe at home: Yes Do you feel safe in your relationship?: Yes Exam Const General: cooperative, healthy appearing, comfortable and no acute distress Orientation: alert, awake and oriented x3 HENMT Head: normal to inspection, normocephalic and atraumatic Mouth: moist mucous membranes Throat: posterior oropharynx normal Eyes Conjunctivae: conjunctivae normal Neck Neck: normal visual inspection, full ROM, trachea midline and supple Resp Effort & Inspection: normal respiratory effort and able to speak in complete sentences Auscultation: clear to auscultation bilaterally and diminished lung sounds (Minimally bilateral bases) Cardio Rate: regular rate Rhythm: regular rhythm Pulses: dorsalis pedis present bilaterally 1+ and normal peripheral pulses GI Palpation: soft and nontender Auscultation: normal bowel sounds Back/Spine/Pelvis Back: no CVA tenderness and back tenderness (Diffuse mild lumbar region) Skin General skin exam: no rashes or lesions noted Neuro General: patient alert, patient awake, patient oriented x3, moves all extremities and no focal motor deficits Motor: muscle tone normal throughout and strength 5/5 throughout Sensory Exam: no sensory deficits noted Extrem General: full ROM, capillary refill normal, pedal edema bilaterally (1+) and other (Negative Homans sign bilaterally) Psych Appearance: grossly normal Mental Status: mental status grossly normal Course Vital Signs Vital signs: Vital Signs Temperature 36.5 C 12/20/19 10:04 Pulse 85 12/20/19 10:04 Respiratory Rate 22 12/20/19 10:04 Blood Pressure 108/64 12/20/19 10:04 Pulse Oximetry 94 L 12/20/19 10:04 Temperature 36.5 C 12/20/19 10:04 Temperature Source Oral 12/20/19 10:04 Pulse 85 12/20/19 10:04 Respiratory Rate 18 12/20/19 10:28 Respiratory Effort Labored 12/20/19 10:28 Respiratory Depth Shallow 12/20/19 10:28 Respiratory Pattern Irregular 12/20/19 10:28 Blood Pressure 108/64 12/20/19 10:04 Pulse Oximetry 94 L 12/20/19 10:04 Oxygen Delivery Method Room Air 12/20/19 10:04 Oxygen Flow Rate 0 12/20/19 10:04 Pain Level 0 12/20/19 10:28 Comment 12/20/19 10:04
[2019-12-20 10:43] LABS: Abs Immature Grans 0.07 k/cumm (0.0-0.09); Absolute Basophil Count 0.05 k/cumm (0.0-0.2); Absolute Eosinophil Count 0.57 k/cumm (0.0-0.7); Absolute Lymphocyte Count 1.56 k/cumm (1.2-3.4); Absolute Monocyte Count 0.96 k/cumm (0.11-0.7); Absolute Neutrophil Count 6.91 k/cumm (1.2-6.7); Basophils % 0.5; Bilirubin Negative (Negative); Blood Trace-intact (Negative); Clarity Clear (Clear); Eosinophils % 5.6; Glucose 250 mg/dL (Negative); HCT 36.1 % (36.0-46.0); HGB 10.9 g/dL (12.0-15.5); Immature Grans % 0.7 %; Ketones Negative (Negative); Leukocyte Esterase Small (Negative); Lymphocytes % 15.4; Mean Corp. HGB Concentration 30.2 g/dL (32.0-36.0); Mean Corpuscular Hemoglobin 24.7 pg (27.0-33.0); Mean Corpuscular Volume 81.7 fL (80-95); Mean Platelet Volume 9.5 fL (8.0-11.0); Monocytes % 9.5; Neutrophils % 68.3; Nitrite Negative (Negative); Platelet Count 413 x1000/uL (130-400); RBC 4.42 m/cumm (4.00-5.20); RBC Distribution Width 17.9 % (11.7-14.6); Specific Gravity 1.015 (1.005-1.025); Urobilinogen 0.2 EU/dL (Up TO 0.2); White Blood Cell Count 10.12 k/cumm (4.4-10.8)
[2019-12-20 11:00] LABS: Bacteria Few HPF (Negative); C & S Indicated? No; Casts Negative LPF (Negative); Crystals Negative HPF (Negative); Epithelial Cells Moderate HPF (Negative); Mucus Negative (Negative); RBC 0-2 HPF (0-2)
[2019-12-20 11:04] LABS: Magnesium 1.9 mg/dL (1.8-2.4)
--- NOTE | 2019-12-20 11:05 | DI.RAD_ITS ---
EXAM: XR CHEST 2V PA LATERAL CLINICAL HISTORY: weight gain / SOB TECHNIQUE: COMPARISON: XR CHEST 2V PA LATERAL from 09/06/2019 XR CHEST 2V PA LATERAL from 11/18/2019 FINDINGS: The heart is not enlarged. There are multiple mediastinal vascular clips consistent with prior CABG surgery and there are mild changes pulmonary scarring. No focal consolidation. No pleural effusion. IMPRESSION: No evidence of acute process.
[2019-12-20 11:06] LABS: Troponin I < 0.05 ng/Ml (<0.06)
[2019-12-20 11:11] LABS: PTT Activated 24.7 sec (21.0-31.4); Prothrombin Time 10.2 sec (9.3-11.0)
[2019-12-20 11:13] LABS: ALT 31 U/L (14-59); AST 15 U/L (15-37); Albumin 3.7 g/dL (3.4-5.0); Alkaline Phosphatase 91 U/L (46-116); Anion Gap 7.3 mmol/L (3-11); Bilirubin, Total 0.4 mg/dL (0.2-1.0); CO2 33.7 mmol/L (21.0-32.0); CREATININE 3.27 mg/dL (0.55-1.02); Calcium 9.5 mg/dL (8.5-10.1); Chloride 96 mmol/L (98-107); Estimated GFR 14.09 (mL/min/1.73m2); Glucose 286 mg/dL (74-106); Potassium 4.6 mmol/L (3.5-5.1); Sodium 137 mmol/L (136-145)
[2019-12-20 11:16] LABS: NT-proBNP 367 pg/mL (<300)
[2019-12-20 11:19] LABS: BUN 84 mg/dL (7-18)
--- NOTE | 2019-12-20 13:43 | NUR.NOTE ---
Nursing Note: PT report transferred to Elise (RN). At the time of transfer the PT was alert and oriented, vitals stable.
--- NOTE | 2019-12-20 14:02 | W.PM.HP.N ---
Date of service: 12/20/19 Time of Service: 14:04 Assessment and Plan Assessment and plan (1) Nelxi-hy-eiuylah kidney injury: Start date: 12/20/19 Start time: 14:32 Status: Acute Assessment and plan: Presents to ED after telehealth visit with PCP for edema and SOB, however clinically patient appears dry, fatigued and eyes sunk in. BUN and Creatinine of 84 and 3.27, up from 82 and 2.85 on 12/11. She has been receiving aggressive diuresis at home. She states she had a weight gain, however in the past when in heart failure she had clinical signs of JVD, edema and SOB. She did not appear SOB, she is not requiring any more oxygen, she does not have any edema to bilateral lower ankles or feet. Imaging negative for acute process. Her BNP is 367, which is normal for her. She states edema to her thigh, however that does not appear to be fluid. Will obtain u/s to r/o dvt of thigh. At this time hold all nephrotoxic medications. Will give light hydration overnight. Monitor for volume overload as she does tend to easily do this. Diuresis as needed. Daily wts. R/o COVID as well, d/t symptoms and granddaughter works at [employer] (2) Pulmonary hypertension: Start date: 12/20/19 Start time: 14:42 Status: Chronic Assessment and plan: History of PHTN with echo from 06/2019 with EF 45-50. Requires 2 liters oxygen. Continue to monitor See above. (3) CHF (congestive heart failure): Start date: 12/20/19 Start time: 14:49 Status: Chronic Assessment and plan: History of CHF, not typical presentation for patient when in heart failure, she does also have pulmonary systolic pressure 35-40 mm HG. Monitor and diureis as needed. Above case discussed with Dr. Trotter who is in agreement. History of Present Illness History of Present Illness Chief Complaint: Fatigue SOB, Edema Narrative: 69 y.o Female with extensive cardiac history including CABG December 2018 following a NSTEMI, with excision of left atrial appendage no longer requiring anticoagulation, CHF, CKD, Depression, gout, RLS, spinal stenosis, hyperlipidemia, and HTN, seen by her PCP today and sent to [facility] ED for admission following increased wt gain with increasing edema and SOB. Emergency department work up included worsening BUN and Creatinine at 84 and 3.27. Per pcp note they were trying aggressive diuresis at home which likely attributes to worsening BUN and Creatinine from 12/11. BNP at baseline for patient, clinically patient looks dry. LSC with no crackles, no edema to bilateral lower extremities. Imaging with no acute process. Ms. Griggs is not presenting in her typical CHF way. She does c/o edema to mid thigh but no where else. In the past on admission she has had noticable JVD, crackles to bilateral lungs with pitting edema, on today's presentation she looks fatigued, her eyes are sunken in and she does not look herself. She is being admitted for further management of her symptoms to include ZACHARY we will hold all nephrotoxic medications, give her light hydration; she is very sensitive to volume overload, monitor closely and diuresis as needed. We will r/o COVID due to resp. symptoms and her granddaughter works at [employer]. She denies SOB, CP, NVD Review of Systems All systems reviewed & are unremarkable except as noted in HPI and below PFSH Medical History Abnormal mammography (Resolved) 08/10/06 Acute kidney injury superimposed on chronic kidney disease (Inactive) Anemia (Chronic) Ankle pain (Resolved 03/13/14) Atrial fibrillation (Chronic) paroxysmal, onset 2015, anticoagulated w/ Xarelto; anticoagulation discontinued after left atrial appendage excision 01/03/2019 Atrial fibrillation Atrial flutter (Inactive) Carpal tunnel syndrome Carpal tunnel syndrome (Resolved 08/10/06) BILATERAL R S/P SURGERY Cervical disc disorder with myelopathy (Resolved 08/21/08) S/P surgery x 2 Cervical spondylosis with myelopathy Chest pain (Resolved) Neg Stress test Chronic obstructive lung disease (Chronic) CKD (chronic kidney disease) stage 3, GFR 30-59 ml/min (Chronic) Cr about 2.5 Constipation (Inactive) Dehydration (Inactive) Diabetes mellitus (Chronic) Diabetes mellitus (Resolved) 09/20/10 Positive Microalbumin Diastolic CHF (Inactive) Essential hypertension (Chronic) Folate deficiency (Resolved 02/15/16) Gout Gout (Chronic 07/06/11) Gram-positive bacteremia (Resolved) HAP (hospital-acquired pneumonia) (Resolved 01/15/19) HCAP (healthcare-associated pneumonia) (Resolved) Hepatomegaly (Resolved) 06/10/04 Hip joint inflamed (Resolved 09/03/15) Hip pain, left (Chronic) Hip pain, right (Chronic) Hyperlipidemia (Chronic 08/10/00) Hypertension Hypomagnesemia (Inactive) Hypoxia (Inactive) Low back pain (Resolved 04/10/03) DISC HERNIATION L4. MULTILEVEL DJD/SPINAL STENOSIS BY MRI; S/P surgery Lump in neck (Resolved) Menopausal syndrome (Resolved) 07/11/03 Muscle fatigue (Resolved) 03/04/13 PAF (paroxysmal atrial fibrillation) (Acute) Posterior tibial tendon dysfunction (Resolved) 02/03/16 Postmenopausal bleeding (Resolved) neg. endometrial biopsy Postoperative wound dehiscence (Resolved 12/23/15) Prerenal azotemia (Inactive) Primary osteoarthritis of left hip (Resolved 09/17/15) Pulmonary hypertension (Chronic) Renal impairment (Resolved 07/11/03) ADRENAL MASS. F/U W/ KINLAW positive microalbumin Restless leg syndrome (Chronic) Rotator cuff syndrome (Resolved 08/01/09) Shingles (Resolved) Smoker (Resolved 06/30/16) 01/17/17 1-2 cig/wk Spinal stenosis of lumbar region (Chronic 02/15/16) Spinal stenosis of lumbar region at multiple levels Tarsal tunnel syndrome (Resolved) 06/11/13 Tarsal tunnel syndrome (Resolved 06/11/13) Trochanteric bursitis (Resolved) 03/18/13 Upper respiratory tract infection (Resolved 08/03/15) UTI (urinary tract infection) (Inactive) Vitamin D deficiency Vitamin D deficiency (Resolved) Weakness (Inactive) Surgical History Arthrodesis right 2nd toe Cataract (Inactive 01/07/14) FOLLOWED BY [facility] [facility] cervical repair (~10/2008) C6-C7 DISK; RECURRENT SURGERY Cholecystectomy (07/31/13) Endometrial Biopsy NEG H/O arthrodesis (Resolved) right second toe H/O Spinal surgery (Resolved) multiple spine surgeries; low back x 2; She had multilevel DJD and spinal stenosis; disc herniation. 2009-cervical repair; C6-C7 disc; recurrent surgery. History of bilateral tubal ligation (Resolved) 09/11/80 History of gynecologic surgery (Resolved) endometrial biopsy-neg History of hip surgery (Resolved) 11/10/15 left hip arthroplasty 12/04/15-placement of wound VAC to left hip History of orthopedic surgery (Resolved) 09/11/97 tarsal tunnel release Left eye surgery 12/31/17 Ligation of fallopian tube (~1980) Open Carpal Tunnel release Right wrist surgery 10/26/17 Rotator Cuff Repair (~1980) S/P CABG (coronary artery bypass graft) (Chronic 01/03/19) 4 vessel CABG and LA appendage excision, Dr. Nav Wang, [facility] [place], [place], [place] S/P carpal tunnel release (Resolved) S/P cholecystectomy (Resolved) 09/11/12 S/P rotator cuff repair (Resolved) 09/11/80 SPINE SURGERY Multiple spine surgeries, low back x 2. She had multilevel DJD and spinal stenosis, disc herniation Status post incision and drainage (Resolved) 12/04/15 left hip surgical wound dehiscence and infection tarsal tunnel release (~1997) Total replacement of hip [facility]; LEFT HIP Family History Mother Diabetes Essential hypertension Personal history of malignant neoplasm KIDNEY/LIVER/BRAIN Heart disease Hyperlipidemia Stroke Asthma Father Diabetes Essential hypertension Personal history of malignant neoplasm BONE Heart disease Asthma Sister Diabetes Essential hypertension Depression Heart disease Asthma Grandfather No problems noted. Grandfather No problems noted. Grandmother Personal history of malignant neoplasm UTERINE Grandmother Diabetes Aunt Personal history of malignant neoplasm BREAST Brother Hyperlipidemia Stroke Sister Asthma Son Asthma Daughter Depression Asthma Daughter Asthma Daughter Depression Neoplasm Asthma Brother No problems noted. 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 Pets and animals: Yes Pets and animals: cat(s), dog(s) and horse(s) What type of physical activity do you participate in: none Saniya/Religious: Restorationism Special saniya needs: No Do you feel safe at home: Yes Do you feel safe in your relationship?: Yes Meds Home Medications and Allergies Home Medications Medication Instructions Recorded Confirmed Type folic acid 1 mg tablet 1 mg PO DAILY #90 tab 05/21/18 12/20/19 Rx nystatin 100,000 unit/gram topical 1 applic TOPICAL BID PRN #30 gm 12/04/18 12/20/19 Rx cream meclizine 12.5 mg tablet 25 mg PO TID PRN #60 tab 12/17/18 12/20/19 Rx blood sugar diagnostic #100 each 12/18/18 12/20/19 Rx lancets 33 gauge #100 each 12/18/18 12/20/19 Rx magnesium hydroxide [Milk of 30 ml PO PRN PRN 01/15/19 12/20/19 History Magnesia] polyethylene glycol 3350 [Miralax] 1 g PO PRN PRN 01/15/19 12/20/19 History acetaminophen [Tylenol Extra 1,000 mg PO Q8H PRN PRN #0 tab 01/22/19 12/20/19 Rx Strength] aspirin [Aspir-81] 81 mg PO DAILY #30 tab 01/22/19 12/20/19 Rx lancets 25 gauge #100 each 01/29/19 12/20/19 Rx ergocalciferol (vitamin D2) 1,250 50,000 unit PO M-W-F #36 tab-cap 01/30/19 12/20/19 Rx mcg (50,000 unit) capsule albuterol sulfate 2.5 mg INHALATION Q2H PRN PRN #0 ml 02/12/19 12/20/19 Rx diltiazem HCl 120 mg 240 mg PO DAILY #180 cap 02/21/19 12/20/19 Rx capsule,extended release 24 hr epinephrine 0.3 mg/0.3 mL 0.3 mg IM ONCE #2 dose 04/29/19 12/20/19 Rx injection, auto-injector budesonide-formoterol HFA 160 2 puff IH BID #10.2 gm 05/21/19 12/20/19 Rx mcg-4.5 mcg/actuation aerosol inhaler metoprolol succinate 50 mg 25 mg PO DAILY #90 tab 05/24/19 12/20/19 Rx tablet,extended release 24 hr allopurinol 100 mg tablet 100 mg PO DAILY #90 tab-cap 08/26/19 12/20/19 Rx B-complex with vitamin C 1 tab PO DAILY 09/19/19 12/20/19 History calcium carbonate 500 mg calcium 500 mg PO DAILY 09/19/19 12/20/19 History (1,250 mg) tablet estradiol 1 gm VG DAILY gm 09/19/19 12/20/19 History magnesium chloride 71.5 mg 71.5 mg PO BID #180 tab 09/19/19 12/20/19 Rx (magnesium chloride) tablet,delayed release omeprazole 40 mg capsule,delayed 40 mg PO BID 09/19/19 12/20/19 History release atorvastatin 40 mg tablet 40 mg PO DAILY #90 tab-cap 10/31/19 12/20/19 Rx duloxetine 60 mg capsule,delayed 60 mg PO DAILY #90 tab-cap 10/31/19 12/20/19 Rx release gabapentin 600 mg tablet 600 mg PO TID #270 tab-cap 10/31/19 12/20/19 Rx pen needle, diabetic 31 gauge x #450 each 10/31/19 12/20/19 Rx 1/4 ropinirole 2 mg tablet 2 mg PO QPM PRN #90 tab 10/31/19 12/20/19 Rx potassium chloride 20 mEq 20 meq PO DAILY #90 tab 11/07/19 12/20/19 Rx tablet,extended release spironolactone 50 mg tablet 50 mg PO BID #180 tab 11/29/19 12/20/19 Rx tramadol 50 mg tablet 100 mg PO QHS #28 tab 11/29/19 12/19/19 Rx insulin glargine 100 unit/mL (3 35 unit SC DAILY #45 ml 12/03/19 12/20/19 Rx mL) subcutaneous pen baclofen 10 mg tablet 10 mg PO TID #90 tab 12/04/19 12/20/19 Rx insulin aspart U-100 100 unit/mL 15 unit SC TID #30 ml 12/05/19 12/20/19 Rx (3 mL) subcutaneous pen metolazone 5 mg tablet 5 mg PO DAILY #90 tab 12/13/19 12/20/19 Rx torsemide 100 mg tablet 100 mg PO DAILY #180 tab 12/13/19 12/20/19 Rx sitagliptin 25 mg tablet 25 mg PO DAILY #90 tab 12/17/19 12/20/19 Rx Allergies Allergy/AdvReac Type Severity Reaction Status Date / Time venom-honey bee Allergy Severe ANAPHYLAXIS Verified 12/20/19 10:45 adhesive Allergy BLISTERS Verified 12/20/19 10:45 Exam Const General: cooperative, no acute distress and ill appearing chronically Nutritional Appearance: obese Orientation: alert, awake and oriented x3 [facility] Head: normal to inspection, normocephalic and other (sunken eyes) Ears: hearing grossly normal bilaterally Mouth: moist mucous membranes abnormal Eyes Sclera: sclerae normal Cornea: corneas normal Pupils: PERRL EOM: EOM intact bilaterally Neck Neck: normal visual inspection, full ROM and no JVD Thyroid: thyroid normal Lymphatic: no lymphadenopathy noted Chest Chest: normal inspection of the chest Resp Effort & Inspection: normal respiratory effort and able to speak in complete sentences Auscultation: diminished lung sounds, no rales, no rhonchi and no wheezes Cardio Jugular venous pressure: no JVD Palpation: normal PMI Rate: regular rate Rhythm: regular rhythm Heart Sounds: S1 normal and S2 normal GI Inspection: large pannus Palpation: soft and no hepatosplenomegaly Back/Spine/Pelvis Back: no CVA tenderness Thoracic/Lumbar Spine: thoracic and lumbar spine normal to inspection Skin Trauma: abrasion (small scratches and scabs to multiple areas on arms) Neuro General: patient alert, patient awake and patient oriented x3 Cognition: normal cognition Speech: speech normal Extrem General: normal to inspection, full ROM and no clubbing, cyanosis or edema Other: Slight edema to right thigh Results Labs Result diagrams: 12/20/19 10:34 12/20/19 10:34 Labs: Laboratory Results - last 24 hr 12/20/19 12/20/19 12/20/19 10:34 10:34 10:34 WBC 10.12 RBC 4.42 Hgb 10.9 L Hct 36.1 MCV 81.7 MCH 24.7 L MCHC 30.2 L RDW 17.9 H Plt Count 413 H MPV 9.5 Immature Gran % 0.7 Neutrophils % 68.3 Lymphocytes % 15.4 Monocytes % 9.5 Eosinophils % 5.6 Basophils % 0.5 Absolute Neutrophils 6.91 H Absolute Lymphocytes 1.56 Absolute Monocytes 0.96 H Absolute Eosinophils 0.57 Absolute Basophils 0.05 PT INR APTT Sodium 137 Potassium 4.6 Chloride 96 L Carbon Dioxide 33.7 H Anion Gap 7.3 BUN 84 H* Creatinine 3.27 H Estimated GFR/1.73 m2 14.09 Glucose 286 H Calcium 9.5 Magnesium Total Bilirubin 0.4 AST 15 ALT 31 Alkaline Phosphatase 91 Troponin I NT-Pro-B Natriuret Pep Total Protein 8.0 Albumin 3.7 Urine Color Yellow Urine Clarity Clear Urine pH 7.0 Ur Specific [place] 1.015 Urine Protein Negative Urine Ketones Negative Urine Blood Trace-intact H Urine Nitrite Negative Urine Bilirubin Negative Urine Urobilinogen 0.2 Ur Leukocyte Esterase Small H Urine RBC 0-2 Urine WBC 5-10 Ur Epithelial Cells Moderate Urine Crystals Negative Urine Bacteria Few Urine Casts Negative Urine Mucus Negative Ur Culture Indicated? No Urine Glucose 250 H 12/20/19 12/20/19 12/20/19 10:34 10:34 10:34 WBC RBC Hgb Hct MCV MCH MCHC RDW Plt Count MPV Immature Gran % Neutrophils % Lymphocytes % Monocytes % Eosinophils % Basophils % Absolute Neutrophils Absolute Lymphocytes Absolute Monocytes Absolute Eosinophils Absolute Basophils PT 10.2 INR 1.0 APTT 24.7 Sodium Potassium Chloride Carbon Dioxide Anion Gap BUN Creatinine Estimated GFR/1.73 m2 Glucose Calcium Magnesium 1.9 Total Bilirubin AST ALT Alkaline Phosphatase Troponin I < 0.05 NT-Pro-B Natriuret Pep 367 H Total Protein Albumin Urine Color Urine Clarity Urine pH Ur Specific [place] Urine Protein Urine Ketones Urine Blood Urine Nitrite Urine Bilirubin Urine Urobilinogen Ur Leukocyte Esterase Urine RBC Urine WBC Ur Epithelial Cells Urine Crystals Urine Bacteria Urine Casts Urine Mucus Ur Culture Indicated? Urine Glucose Last Vital Signs Temp 36 C L 12/20/19 13:32 Pulse 70 12/20/19 13:32 Resp 20 12/20/19 13:32 BP 123/64 12/20/19 13:32 Pulse Ox 98 12/20/19 13:32 COVID-19 Screening Traveled to [place] from one of the affected countries or regions?: NO Recent travel in the [place] within the last 8 weeks?: No Recent out of the country travel within the last 8 weeks?: No Exposure or possible exposure to illness during travel?: No Had IN PERSON contact w/suspected or confirmed C-19 person: No Have you had the following symptoms in the past few days?: No
[2019-12-20] MEDS: Normal Saline 1,000 ML 75 ML IV (14:47)
[2019-12-20 15:22] LABS: D-Dimer 1100 ng/mlFEU (<500)
--- NOTE | 2019-12-20 16:09 | DI.VRAD_ITS ---
PROCEDURE INFORMATION: Exam: US Duplex Right Lower Extremity Veins, Limited Exam date and time: 12/20/2019 3:51 PM Age: 69 years old Clinical indication: Other: Rle swelling TECHNIQUE: Imaging protocol: Real-time Duplex ultrasound of the Right Lower Extremity with 2-D dutta scale, color Doppler flow and spectral waveform analysis with image documentation. Limited exam was focused on the right lower extremity veins. COMPARISON: US extremity venous BI 02/09/2019 12:23 PM FINDINGS: Right deep veins: Unremarkable. The common femoral, femoral, proximal profunda femoral and popliteal veins are patent without thrombus. Normal Doppler waveforms. Normal compressibility and/or augmentation response. Right superficial veins: Unremarkable. Saphenofemoral junction is patent without thrombus. Soft tissues: Unremarkable. IMPRESSION: No evidence of deep vein thrombosis. Dictated and Authenticated by: Maynor Hernandez MD. Ordering:ZACHARIAH Montiel MD
[2019-12-20] MEDS: Insulin Aspart 300 UNITS/3 ML PEN SC (16:59)
[2019-12-20] MEDS: Heparin 5,000 UNITS/ML VIAL 5000 UNITS SC ×2 (18:21→22:28)
[2019-12-20] MEDS: Gabapentin 600 MG TAB PO ×2 (18:22→22:19)
[2019-12-20] MEDS: Baclofen 10 MG TAB PO ×2 (18:22→22:18)
[2019-12-20] MEDS: Omeprazole 20 MG CAPCR 40 MG PO (22:18)
[2019-12-20] MEDS: Magnesium Chloride 64 MG TABCR PO (22:19)
[2019-12-20] MEDS: rOPINIRole 1 MG TAB 2 MG PO (22:22)
[2019-12-20] MEDS: Budesonide/Formoterol 160/4.5 6 GM 60 PUFF INH IH (22:27)
[2019-12-20] MEDS: Insulin Glargine 300 UNITS/3 ML PEN 35 UNITS SC (22:43)
[2019-12-21] MEDS: Heparin 5,000 UNITS/ML VIAL 5000 UNITS SC ×3 (05:01→20:04)
[2019-12-21 06:03] LABS: HCT 33.1 % (36.0-46.0); Mean Corp. HGB Concentration 30.2 g/dL (32.0-36.0); Mean Corpuscular Hemoglobin 24.8 pg (27.0-33.0); Mean Corpuscular Volume 82.1 fL (80-95); Mean Platelet Volume 9.4 fL (8.0-11.0); Platelet Count 353 x1000/uL (130-400); RBC 4.03 m/cumm (4.00-5.20); RBC Distribution Width 17.6 % (11.7-14.6); White Blood Cell Count 6.14 k/cumm (4.4-10.8)
[2019-12-21 06:10] LABS: Anion Gap 3.7 mmol/L (3-11); CO2 35.3 mmol/L (21.0-32.0); CREATININE 2.79 mg/dL (0.55-1.02); Calcium 9.4 mg/dL (8.5-10.1); Chloride 99 mmol/L (98-107); Estimated GFR 16.92 (mL/min/1.73m2); Glucose 167 mg/dL (74-106); Magnesium 1.9 mg/dL (1.8-2.4); Potassium 4.2 mmol/L (3.5-5.1); Sodium 138 mmol/L (136-145)
[2019-12-21 06:22] LABS: BUN 82 mg/dL (7-18)
[2019-12-21 08:00] VITALS: BP 110/40; PULSE 68; RESP 20; TEMP 36.1; O2SAT 98
[2019-12-21] MEDS: Budesonide/Formoterol 160/4.5 6 GM 60 PUFF INH IH ×2 (08:36→20:02)
[2019-12-21] MEDS: Insulin Aspart 300 UNITS/3 ML PEN SC ×3 (08:37→17:14)
[2019-12-21] MEDS: dilTIAZem CD 120 MG CAPCR 240 MG PO (08:40)
[2019-12-21] MEDS: DULoxetine 30 MG CAP 60 MG PO (08:40)
[2019-12-21] MEDS: Vitamins B Comp w/C TAB 1 TAB PO (08:40)
[2019-12-21] MEDS: Baclofen 10 MG TAB PO ×3 (08:41→20:06)
[2019-12-21] MEDS: Aspirin E.C. 81 MG TABEC PO (08:41)
[2019-12-21] MEDS: Gabapentin 600 MG TAB PO ×3 (08:41→20:06)
[2019-12-21] MEDS: Omeprazole 20 MG CAPCR 40 MG PO ×2 (08:41→20:06)
[2019-12-21] MEDS: Folic Acid 1 MG TAB PO (08:41)
[2019-12-21] MEDS: Magnesium Chloride 64 MG TABCR PO ×2 (08:42→20:06)
[2019-12-21] MEDS: Calcium Carbonate 1.25 GM TAB 0.5 GM PO (08:42)
[2019-12-21] MEDS: Atorvastatin 40 MG TAB PO (08:43)
[2019-12-21] MEDS: Metoprolol CR 50 MG TABCR 25 MG PO (08:44)
--- NOTE | 2019-12-21 11:29 | PGE_ITS ---
Date of Service Date of service: 12/21/19 Time of Service: 11:30 Assessment and Plan Assessment and plan (1) Coiny-hi-ulbtmgq kidney injury: Start date: 12/21/19 Start time: 11:37 Status: Acute Assessment and plan: Improved. Creatinine 2.79, BUN 82, improving after 1 liter fluids. Does not appear to be in CHF. She appeared to be dry. Will continue to monitor for volume overload as she does become easily overloaded. (2) Pulmonary hypertension: Start date: 12/21/19 Start time: 11:45 Status: Chronic Assessment and plan: History of PHTN with echo from 06/2019 with EF 45-50. Requires 2 liters oxygen. Continue to monitor See above. (3) CHF (congestive heart failure): Start date: 12/21/19 Start time: 11:45 Status: Chronic Assessment and plan: History of CHF, not typical presentation for patient when in heart failure, she does also have pulmonary systolic pressure 35-40 mm HG. Monitor and diureis as needed. She received aggressive diuresis prior to admission. At this time, she appears more dry from aggressive diruesis. Will continue to monitor for volume overload. Above case discussed with Dr. Mims who is in agreement. Subjective Subjective Patient reports: feels better Interval history since last seen: Megan is looking better and feeling better. She received 1 liter of fluid, no signs of volume overload, no JVD, no SOB, on 2.5 l as needed. No edema. Spoke to her about her scale at home. She endorsed that her scale might be off, her daughter stood on it and in 24 hours had a 10 lb wt gain. Recommended she opt for one that may not need a battery. She feels less tired today. She denies CP, SOB, N/V/D Exam Const General: cooperative, no acute distress and ill appearing chronically Nutritional Appearance: obese Orientation: alert, awake and oriented x3 HENMT Head: normal to inspection, normocephalic and other (sunken eyes) Ears: hearing grossly normal bilaterally Mouth: moist mucous membranes abnormal Eyes Sclera: sclerae normal Cornea: corneas normal Pupils: PERRL EOM: EOM intact bilaterally Neck Neck: normal visual inspection, full ROM and no JVD Thyroid: thyroid normal Lymphatic: no lymphadenopathy noted Chest Chest: normal inspection of the chest Resp Effort & Inspection: normal respiratory effort and able to speak in complete sentences Auscultation: diminished lung sounds, no rales, no rhonchi and no wheezes Cardio Jugular venous pressure: no JVD Palpation: normal PMI Rate: regular rate Rhythm: regular rhythm Heart Sounds: S1 normal and S2 normal GI Inspection: large pannus Palpation: soft and no hepatosplenomegaly Back/Spine/Pelvis Back: no CVA tenderness Thoracic/Lumbar Spine: thoracic and lumbar spine normal to inspection Skin Trauma: abrasion (small scratches and scabs to multiple areas on arms) Neuro General: patient alert, patient awake and patient oriented x3 Cognition: normal cognition Speech: speech normal Extrem General: normal to inspection, full ROM and no clubbing, cyanosis or edema Objective Objective Clinical Data: Abnormal lab results 12/20/19 12/21/19 12/21/19 Range/Units 10:34 05:45 05:45 Hgb 10.0 L (12.0-15.5) g/dL Hct 33.1 L (36.0-46.0) % MCH 24.8 L (27.0-33.0) pg MCHC 30.2 L (32.0-36.0) g/dL RDW 17.6 H (11.7-14.6) % D-Dimer 1100 H (<500) ng/mlFEU Carbon Dioxide 35.3 H (21.0-32.0) mmol/L BUN 82 H* (7-18) mg/dL Creatinine 2.79 H (0.55-1.02) mg/dL Glucose 167 H D (74-106) mg/dL Vital Signs Temperature 36.1 C L 12/21/19 08:00 Temperature Source Tympanic 12/21/19 08:00 Pulse 68 12/21/19 08:00 Pulse Rhythm Regular 12/21/19 08:00 Pulse 70 12/20/19 13:00 Respiratory Rate 20 12/21/19 08:00 Respiratory Effort Non-Labored 12/21/19 08:00 Respiratory Depth Normal 12/21/19 08:00 Respiratory Pattern Normal 12/21/19 08:00 Blood Pressure 110/40 L 12/21/19 08:00 Blood Pressure Mean 65 12/20/19 12:01 Pulse Oximetry 98 12/21/19 08:00 Oxygen Delivery Method Nasal Cannula 12/21/19 08:00 Oxygen Flow Rate 2.5 12/21/19 08:00 Pain Level 0 12/20/19 22:00 Comment 12/20/19 13:32 Intake & Output 12/20/19 12/20/19 12/21/19 11:59 23:59 11:59 Intake Total 240 / 240 1360 / 1360 Output Total 1375 / 1375 1450 / 1450 Balance -1135 / -1135 -90 / -90 Weight 127.459 kg 126.5 kg Intake: IV 1000 / 1000 Oral 240 / 240 360 / 360 Output: Urine 1375 / 1375 1450 / 1450 Other: Urine Color Yellow Yellow Urine Appearance Clear Sediment Urine Odor None None Comment PT ONLY USED BEDSIDE COMMODE AT THE MOMENT SHE NEEDED TO GO MORE O2 TUBING WAS NOT AVAILABLE TO LENGTHEN IT TO WALK ALL THE WAY TO THE BATHROOM. Dark yellow Voiding Methods Bedside Commode Bedside Commode Laboratory Results WBC Cancelled 12/21/19 07:36 RBC Cancelled 12/21/19 07:36 Hgb Cancelled 12/21/19 07:36 Hct Cancelled 12/21/19 07:36 MCV Cancelled 12/21/19 07:36 MCH Cancelled 12/21/19 07:36 MCHC Cancelled 12/21/19 07:36 RDW Cancelled 12/21/19 07:36 Plt Count Cancelled 12/21/19 07:36 MPV Cancelled 12/21/19 07:36 Immature Gran % 0.7 % 12/20/19 10:34 Neutrophils % 68.3 12/20/19 10:34 Lymphocytes % 15.4 12/20/19 10:34 Monocytes % 9.5 12/20/19 10:34 Eosinophils % 5.6 12/20/19 10:34 Basophils % 0.5 12/20/19 10:34 Absolute Neutrophils 6.91 k/cumm (1.2-6.7) H 12/20/19 10:34 Absolute Lymphocytes 1.56 k/cumm (1.2-3.4) 12/20/19 10:34 Absolute Monocytes 0.96 k/cumm (0.11-0.7) H 12/20/19 10:34 Absolute Eosinophils 0.57 k/cumm (0.0-0.7) 12/20/19 10:34 Absolute Basophils 0.05 k/cumm (0.0-0.2) 12/20/19 10:34 PT 10.2 sec (9.3-11.0) 12/20/19 10:34 INR 1.0 (0.9-1.1) 12/20/19 10:34 APTT 24.7 sec (21.0-31.4) 12/20/19 10:34 D-Dimer 1100 ng/mlFEU (<500) H 12/20/19 10:34 Sodium Cancelled 12/21/19 07:36 Potassium Cancelled 12/21/19 07:36 Chloride Cancelled 12/21/19 07:36 Carbon Dioxide Cancelled 12/21/19 07:36 Anion Gap Cancelled 12/21/19 07:36 BUN Cancelled 12/21/19 07:36 Creatinine Cancelled 12/21/19 07:36 Estimated GFR/1.73 m2 Cancelled 12/21/19 07:36 Glucose Cancelled 12/21/19 07:36 Calcium Cancelled 12/21/19 07:36 Magnesium 1.9 mg/dL (1.8-2.4) 12/21/19 05:45 Total Bilirubin 0.4 mg/dL (0.2-1.0) 12/20/19 10:34 AST 15 U/L (15-37) 12/20/19 10:34 ALT 31 U/L (14-59) 12/20/19 10:34 Alkaline Phosphatase 91 U/L (46-116) 12/20/19 10:34 Troponin I < 0.05 ng/Ml (<0.06) 12/20/19 10:34 NT-Pro-B Natriuret Pep 367 pg/mL (<300) H 12/20/19 10:34 Total Protein 8.0 g/dL (6.4-8.2) 12/20/19 10:34 Albumin 3.7 g/dL (3.4-5.0) 12/20/19 10:34 Urine Color Yellow (Yellow) 12/20/19 10:34 Urine Clarity Clear (Clear) 12/20/19 10:34 Urine pH 7.0 (5-8) 12/20/19 10:34 Ur Specific [place] 1.015 (1.005-1.025) 12/20/19 10:34 Urine Protein Negative mg/dL (Negative) 12/20/19 10:34 Urine Ketones Negative mg/dL (Negative) 12/20/19 10:34 Urine Blood Trace-intact (Negative) H 12/20/19 10:34 Urine Nitrite Negative (Negative) 12/20/19 10:34 Urine Bilirubin Negative (Negative) 12/20/19 10:34 Urine Urobilinogen 0.2 EU/dL (Up TO 0.2) 12/20/19 10:34 Ur Leukocyte Esterase Small (Negative) H 12/20/19 10:34 Urine RBC 0-2 HPF (0-2) 12/20/19 10:34 Urine WBC 5-10 HPF (0-5) 12/20/19 10:34 Ur Epithelial Cells Moderate HPF (Negative) 12/20/19 10:34 Urine Crystals Negative HPF (Negative) 12/20/19 10:34 Urine Bacteria Few HPF (Negative) 12/20/19 10:34 Urine Casts Negative LPF (Negative) 12/20/19 10:34 Urine Mucus Negative (Negative) 12/20/19 10:34 Ur Culture Indicated? No 12/20/19 10:34 Urine Glucose 250 mg/dL (Negative) H 12/20/19 10:34
--- NOTE | 2019-12-21 15:23 | PDOC.CMIN ---
- If Service Date Differs Date of service: 12/21/19 Time of Service: 15:23 Care Management Initial Assess REASON FOR HOSPITALIZATION:: Congestive heart failure (CHF) and Covid-19 rule-out. PAST MEDICAL HISTORY/PAST SURGICAL HISTORY:: Medical History: Abnormal mammography - 08/10/06, Acute kidney injury superimposed on chronic kidney disease, Anemia, Ankle pain, Atrial fibrillation, paroxysmal, onset 2015, anticoagulated w/ Xarelto; anticoagulation discontinued after left atrial appendage excision 01/03/2019,. Atrial flutter, Carpal tunnel syndrome - BILATERAL - R S/P SURGERY, Cervical disc disorder with myelopathy - S/P surgery x 2, Cervical spondylosis with myelopathy, Chest pain - Neg Stress test, Chronic obstructive lung disease, CKD (chronic kidney disease) stage 3, GFR 30-59 ml/min - Cr about 2.5, Constipation, Dehydration, Diabetes mellitus - 09/20/10 Positive Microalbumin, Diastolic CHF, Essential hypertension, Folate deficiency,. Gout, Gram-positive bacteremia, HAP (hospital-acquired pneumonia), Hepatomegaly - 06/10/04, Hip joint inflamed, Hip pain, left and right, Hyperlipidemia, Hypertension, Hypomagnesemia, Hypoxia, Low back pain - DISC HERNIATION L4. MULTILEVEL DJD/SPINAL STENOSIS BY MRI; S/P surgery, Lump in neck, Menopausal syndrome - 07/11/03, Muscle fatigue - 03/04/13, PAF (paroxysmal atrial fibrillation), Posterior tibial tendon dysfunction - 02/03/16, Postmenopausal bleeding - neg. endometrial biopsy, Postoperative wound dehiscence, Prerenal azotemia , Primary osteoarthritis of left hip, Pulmonary hypertension, Renal impairment - ADRENAL MASS. F/U W/ K[facility]LAW - positive microalbumin, Restless leg syndrome, Rotator cuff syndrome, Shingles, Smoker, Spinal stenosis of lumbar region at multiple levels, Tarsal tunnel syndrome, Trochanteric bursitis, Upper respiratory tract infection, UTI (urinary tract infection), Vitamin D deficiency, and Weakness. Surgical History: Arthrodesis - right 2nd toe, Cataract - FOLLOWED BY OPTICAL EXPRESSIONS, cervical repair - C6-C7 DISK; RECURRENT SURGERY,. Cholecystectomy, Endometrial Biopsy - NEG, H/O arthrodesis - right second toe, H/O Spinal surgery, multiple spine surgeries; low back x 2; She had multilevel DJD and spinal stenosis; disc herniation. 2008-cervical repair; C6-C7 disc; recurrent surgery, History of bilateral tubal ligation, History of gynecologic surgery, History of hip surgery - 11/10/15 left hip arthroplasty 12/04/15-placement of wound VAC to left hip, History of orthopedic surgery -. 09/11/97 tarsal tunnel release, Left eye surgery, Open Carpal Tunnel release. Right wrist surgery, Rotator Cuff Repair, S/P CABG (coronary artery bypass graft) - 4 vessel CABG and LA appendage excision, Dr. Nav Wang, [facility], [place], [place] S/P carpal tunnel release, S/P cholecystectomy,. Status post incision and drainage - 12/04/15 left hip surgical wound dehiscence and infection, and Total replacement of hip - [facility]; LEFT HIP. PREVIOUS FUNCTIONAL STATUS/SOCIAL/FAMILY SUPPORTS:: Ann-Marie lives in [place]. She is and has four adult children. Her daughter, Elli, and 18-year-old granddaughter reside with her. 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 She shares health problems forced her into group home. She now spends her time watching television with her dog, crocheting, baking, and walking outdoors in her yard. Ann-Marie states her daughter Elli helps care for her at home. CURRENT FUNCTIONAL STATUS:: Ann-Marie is currently in the [facility]. CM will continue to follow. ADVANCE DIRECTIVES:: On file at [facility]; daughter Elli Griggs is listed as healthcare agent. Has patient been provided with information about the portal?: Yes Did the patient sign up for the portal?: No CODE STATUS:: DNR/DNI INSURANCE COVERAGE / FINANCIAL ISSUES:: Medicare and Medicaid. CURRENT HOME/COMMUNITY SERVICES/EQUIPMENT:: Ann-Marie has home oxygen through [employer], which she primarily uses at night. She also has Home Health nursing once a week. She reports she has a FWW, several canes, a high rise for her toilet, a shower chair, and a commode. PRIMARY CARE PHYSICIAN:: Laisha Mcmahon MD ([facility]) POTENTIAL DISCHARGE NEEDS:: Follow-up appointment with PCP. PATIENT/FAMILY EDUCATION NEEDS:: Discharge instructions, limitations, follow-up plan of care, including Ask Me Three and self-management. ANTICIPATED BARRIERS TO DISCHARGE:: No anticipated barriers at this time. TRANSPORTATION:: Daughter, Elli, will transport Ann-Marie home via private vehicle when ready. PLAN:: Anticipate Ann-Marie will be discharged home with a resumption of Home Health nursing when medically cleared by provider. Her daughter, Elli, will transport her home via private vehicle when ready. CM will continue to support patient and discharge planning needs.
[2019-12-21 16:02] VITALS: BP 101/51; PULSE 69; RESP 14; TEMP 35.8; O2SAT 96
[2019-12-21] MEDS: Normal Saline Flush 10 ML SYR IVP (20:04)
[2019-12-21 20:21] VITALS: O2SAT 96
[2019-12-21] MEDS: rOPINIRole 1 MG TAB 2 MG PO (21:26)
[2019-12-21 23:49] VITALS: BP 127/60; PULSE 60; RESP 18; TEMP 36.9; O2SAT 96
[2019-12-22] MEDS: Heparin 5,000 UNITS/ML VIAL 5000 UNITS SC (06:03)
[2019-12-22] MEDS: Omeprazole 20 MG CAPCR 40 MG PO (06:22)
[2019-12-22 07:19] VITALS: BP 114/71; PULSE 67; RESP 18; TEMP 36.5; O2SAT 94
[2019-12-22 07:45] VITALS: BP 115/71; PULSE 68; RESP 19; TEMP 36.5; O2SAT 94
[2019-12-22 07:59] VITALS: RESP 12
[2019-12-22 08:26] LABS: Anion Gap 6.2 mmol/L (3-11); BUN 71 mg/dL (7-18); CO2 32.8 mmol/L (21.0-32.0); CREATININE 2.55 mg/dL (0.55-1.02); Calcium 9.8 mg/dL (8.5-10.1); Chloride 98 mmol/L (98-107); Estimated GFR 18.78 (mL/min/1.73m2); Glucose 260 mg/dL (74-106); Potassium 4.5 mmol/L (3.5-5.1); Sodium 137 mmol/L (136-145)
[2019-12-22 08:39] LABS: NT-proBNP 334 pg/mL (<300)
[2019-12-22] MEDS: Baclofen 10 MG TAB PO (08:46)
[2019-12-22] MEDS: Magnesium Chloride 64 MG TABCR PO (08:46)
[2019-12-22] MEDS: Calcium Carbonate 1.25 GM TAB PO (08:46)
[2019-12-22] MEDS: dilTIAZem CD 120 MG CAPCR 240 MG PO (08:46)
[2019-12-22] MEDS: Aspirin E.C. 81 MG TABEC PO (08:46)
[2019-12-22] MEDS: Atorvastatin 40 MG TAB PO (08:46)
[2019-12-22] MEDS: Gabapentin 600 MG TAB PO (08:46)
[2019-12-22] MEDS: DULoxetine 30 MG CAP 60 MG PO (08:47)
[2019-12-22] MEDS: Folic Acid 1 MG TAB PO (08:47)
[2019-12-22] MEDS: Metoprolol CR 25 MG TABCR PO (08:47)
[2019-12-22] MEDS: Vitamins B Comp w/C TAB 1 TAB PO (08:47)
[2019-12-22] MEDS: Budesonide/Formoterol 160/4.5 6 GM 60 PUFF INH IH (09:43)
[2019-12-22] MEDS: Insulin Aspart 300 UNITS/3 ML PEN SC ×2 (09:49→12:11)
--- NOTE | 2019-12-22 10:25 | DSE_ITS ---
Date of service: 12/22/19 Time of Service: 10:25 DS: Diagnosis Discharge Diagnosis (1) [id number] kidney injury: Status: Acute (2) Pulmonary hypertension: Status: Chronic (3) CHF (congestive heart failure): Status: Chronic Asessment and Plan: Euvolemic at discharge (4) Diabetes mellitus: Status: Chronic (5) Hyperglycemia: Status: Acute Discharge Plan Disposition Patient Disposition: HOME W/HOME HEALTH SERVICE Condition: Stable Discharge Details Chief Complaint: SOB Clinical Impression: SOB (shortness of breath), CHF (congestive heart failure) Reason For Visit: CHF Admit Date/Time: 12/20/19 11:46 Admit Provider: Wade Trotter Attending Provider: Wade Trotter Primary Care Provider: Laisha Mcmahon ED Provider: Clarence Meek Hospital Course Hospital Course: Ms Griggs is a 69 year old female with PMHx of oxygen-dependent COPD, chronic diastolic CHF, pulmonary hypertension, CKD stage III, who was admitted to [facility] hospitalist service on 12/20/2019 with complaints of shortness of breath after referral by her PCP (Dr Mcmahon) who was treating her for CHF with intensifying diuresis as outpatient. At the time of presentation, the patient, in fact, appeared dehydrated, and she was in [place] on CKD with Cr of 3.27, up of her baseline of about 2.8. Her breathing, per patient proper, was near her baseline. She tested negative for COVID-19. She received gentle IVF on presentation and her diuresis was held until her Cr improved (now down to 2.55). Her weight on is 126.3 kg, and the patient feels well at this weight. Her CXR does not show fluid overload, and her pro-BNP of 334 is consistent with her euvolemic state. She has mild lower extremity edema likely due to her pulmonary hypertension and is advised to wear TEDs. As far as her diuretic regimen on discharge, it is important that she weigh herself every day further dictating outpatient diuretic dosing. The patient did state that she was not sure about how well her scale worked - we recommend that she get a new scale. We also recommend that, if she is not already participating in [facility] via home health nursing, that she be considered. She is getting discharged home today with resumption of home health nursing. Her diuretic regimen is changing to: metolazone 5 mg every other day, torsemide 100 mg daily, spironolactone 50 mg PO daily. Her oxygen requirement is room air at the time of discharge. She will need close follow up to adjust her diuretic doses as well as follow up BMP on Monday (12/24/2019) via home health. Care for patient as well as completion of her discharge summary on day of discharge took 45 minutes. Home Meds and New Rx's Prescriptions: Continued (DME) lancets 25 gauge misc See Dose Instructions .ROUTE .MEDSUPPLY Qty: 100 RF: 5 (DME) blood sugar diagnostic [Blood Glucose Test] strip See Dose Instructions .ROUTE .MEDSUPPLY Qty: 100 RF: 5 (DME) lancets [OneTouch Delica Lancets] 33 gauge misc See Dose Instructions .ROUTE DAILY Qty: 100 RF: 0 estradiol 0.01 % (0.1 mg/gram) cream 1 gm VG DAILY RF: 0 omeprazole 40 mg capsule,delayed release(DR/EC) 40 mg PO BID RF: 0 B-complex with vitamin C [Super B Complex-Vitamin C] Tablet 1 tab PO DAILY RF: 0 calcium carbonate [Oyster Shell Calcium 500] 500 mg calcium (1,250 mg) tablet 500 mg PO DAILY RF: 0 (DME) pen needle, diabetic [1st Tier Unifine Pentips] 31 gauge x 1/4 needle See Dose Instructions .ROUTE .MEDSUPPLY Qty: 450 RF: 5 ropinirole 2 mg tablet 2 mg PO QPM PRN (Reason: restless leg(s)) Qty: 90 RF: 5 gabapentin 600 mg tablet 600 mg PO TID Qty: 270 RF: 12 atorvastatin 40 mg tablet 40 mg PO DAILY Qty: 90 RF: 6 duloxetine 60 mg capsule,delayed release(DR/EC) 60 mg PO DAILY Qty: 90 RF: 12 diltiazem HCl 120 mg capsule,extended release 24hr 240 mg PO DAILY Qty: 180 RF: 5 allopurinol 100 mg tablet 100 mg PO DAILY Qty: 90 RF: 12 baclofen 10 mg tablet 10 mg PO TID Qty: 90 RF: 4 folic acid 1 mg tablet 1 mg PO DAILY Qty: 90 RF: 5 nystatin 100,000 unit/gram cream 1 applic Topical BID PRN (Reason: yeast) Qty: 30 RF: 2 meclizine 12.5 mg tablet 25 mg PO TID PRN (Reason: dizziness) Qty: 60 RF: 3 ergocalciferol (vitamin D2) [Vitamin D2] 50,000 unit capsule 50,000 unit PO Qty: 36 RF: 4 epinephrine [EpiPen 2-Erick] 0.3 mg/0.3 mL auto-injector 0.3 mg IM ONCE Qty: 2 RF: 10 budesonide-formoterol [Symbicort] 160-4.5 mcg/actuation HFA aerosol inhaler 2 puff IH BID Qty: 10.2 RF: 12 metoprolol succinate 50 mg tablet extended release 24 hr 25 mg PO DAILY Qty: 90 RF: 3 Slow-Mag 71.5 mg tablet,delayed release (DR/EC) 71.5 mg PO BID Qty: 180 RF: 4 potassium chloride 20 mEq tablet extended release 20 meq PO DAILY Qty: 90 RF: 5 Hold Instructions: Home Medication placed on hold at Doctor's office tramadol 50 mg tablet 100 mg PO QHS Qty: 28 RF: 3 insulin aspart U-100 [Novolog Flexpen U-100 Insulin] 100 unit/mL (3 mL) insulin pen 15 unit SC TID Qty: 30 RF: 5 torsemide 100 mg tablet 100 mg PO DAILY Qty: 180 RF: 4 Januvia 25 mg tablet 25 mg PO DAILY Qty: 90 RF: 4 polyethylene glycol 3350 [Miralax] 17 gram Powder In Packet 1 g PO PRN PRNRF: 0 magnesium hydroxide [Milk of Magnesia] 400 mg/5 mL Suspension 30 ml PO PRN PRN (Reason: Constipation) RF: 0 aspirin [Aspir-81] 81 mg Tablet,Delayed Release (Dr/Ec) 81 mg PO DAILY Qty: 30 RF: 0 acetaminophen [Tylenol Extra Strength] 500 mg Tablet 1,000 mg PO Q8H PRN PRN (Reason: Pain) Qty: 0 RF: 0 albuterol sulfate 2.5 mg /3 mL (0.083 %) Solution For Nebulization 2.5 mg INHALATION Q2H PRN PRN (Reason: shortness of breath or wheezing) Qty: 0 RF: 0 Changed metolazone 5 mg tablet 5 mg PO Q48H Qty: 90 RF: 4 spironolactone 50 mg tablet 50 mg PO DAILY Qty: 180 RF: 7 Basaglar KwikPen U-100 Insulin 100 unit/mL (3 mL) insulin pen 35 unit SC HS Qty: 45 RF: 4 Discharge Instructions Instructions: Heart Failure (DC), Dehydration (DC), Pulmonary Arterial Hypertension (DC) Additional Instructions: Weigh yourself daily at the same time, wearing the same amount of clothes. Consider getting a new scale if you think your scale does not work properly. Contact Dr Mcmahon on Monday or Monday for follow up over the phone. Make sure you are not consuming more than 2 grams of salt per day. Wear BOUBACAR stockings during the day and elevate your legs when seating. Return to the hospital with any fever, bleeding, chest pain, or shortness of breath. Care Plan Goals: Resumption of home health nursing. Home health nursing to do a BMP on 12/24/2019 - results to Dr Mcmahon. Consider [facility]. Referrals: Laisha Mcmahon [place], [place] [Primary Care Provider] - Activity:: Activity as Tolerated Equipment/Supplies:: No Equipment Needed Diet:: Heart health carb consistent Discharge Orders Discharge Orders: Discharge Order (Routine); Ordered 12/22/19 Ordered By: Elvira Mims DS: Summary Status at Discharge Functional status at discharge: independent ambulation Overall status at discharge: patient is back to baseline Mental Status: mental status grossly normal Speech and Movement: speech and movement normal Mood: congruent mood Affect: normal affect Exam Narrative Exam Narrative: General: Pleasant middle-aged female, at her baseline, A&Ox3, no dyspnea/tachypnea on room air sitting, able to complete lengthy sentences without any evidence of dyspnea HEENT: EOMI, MMM Heart: RRR, no m/r/g Lungs: CTAB Abdomen: soft, nontender, nondistended Extremities: +1 BLE edema, no c/c. Psych Mental Status: mental status grossly normal Speech and Movement: speech and movement normal Mood: congruent mood Affect: normal affect DS: Data Vitals/I&O Vitals and I&O: Vital Signs Temperature 36.5 C 12/22/19 07:45 Temperature Source Tympanic 12/22/19 07:45 Pulse 68 12/22/19 07:45 Pulse Rhythm Regular 12/21/19 23:49 Pulse 70 12/20/19 13:00 Respiratory Rate 12 12/22/19 07:59 Respiratory Effort 12/22/19 07:59 Respiratory Depth Normal 12/22/19 07:59 Respiratory Pattern Normal 12/22/19 07:59 Blood Pressure 115/71 12/22/19 07:45 Blood Pressure Mean 65 12/20/19 12:01 Pulse Oximetry 94 L 12/22/19 07:45 Oxygen Delivery Method Room Air 12/22/19 07:45 Oxygen Flow Rate 0 12/22/19 07:45 Pain Level 0 12/22/19 07:45 Comment 12/21/19 16:02 Intake & Output 12/21/19 12/21/19 12/22/19 11:59 23:59 11:59 Intake Total 1360 / 2680 1320 / 2680 Output Total 1450 / 2600 1150 / 2600 1150 / 1150 Balance -90 / 80 170 / 80 -1150 / -1150 Intake: IV 1000 / 1000 Oral 360 / 1680 1320 / 1680 Output: Urine 1450 / 2600 1150 / 2600 1150 / 1150 Other: Urine Color Yellow Yellow Yellow Urine Appearance Sediment Clear Clear Urine Odor None Normal Normal Comment Dark yellow Stool Size Large Stool Characteristics Formed Voiding Methods Bedside Commode Toilet Bedside Commode Data Completed and Pending Completed studies during hospitalization [Text1]: Venous doppler RLE 12/20/2019: No evidence of deep venous thrombosis of the right lower extremity CXR 12/20/2019: No evidence of acute process Labs on day of discharge: Labs from last 24 hours 12/22/19 12/22/19 08:10 08:10 Sodium 137 Potassium 4.5 Chloride 98 Carbon Dioxide 32.8 H Anion Gap 6.2 BUN 71 H Creatinine 2.55 H Estimated GFR/1.73 m2 18.78 Glucose 260 H Calcium 9.8 NT-Pro-B Natriuret Pep 334 H PFSH Medical History Abnormal mammography (Resolved) 08/10/06 Acute kidney injury superimposed on chronic kidney disease (Inactive) Anemia (Chronic) Ankle pain (Resolved 03/13/14) Atrial fibrillation (Chronic) paroxysmal, onset 2015, anticoagulated w/ Xarelto; anticoagulation discontinued after left atrial appendage excision 01/03/2019 Atrial fibrillation Atrial flutter (Inactive) Carpal tunnel syndrome Carpal tunnel syndrome (Resolved 08/10/06) BILATERAL R S/P SURGERY Cervical disc disorder with myelopathy (Resolved 08/21/08) S/P surgery x 2 Cervical spondylosis with myelopathy Chest pain (Resolved) Neg Stress test Chronic obstructive lung disease (Chronic) CKD (chronic kidney disease) stage 3, GFR 30-59 ml/min (Chronic) Cr about 2.5 Constipation (Inactive) Dehydration (Inactive) Diabetes mellitus (Chronic) Diabetes mellitus (Resolved) 09/20/10 Positive Microalbumin Diastolic CHF (Inactive) Essential hypertension (Chronic) Folate deficiency (Resolved 02/15/16) Gout Gout (Chronic 07/06/11) Gram-positive bacteremia (Resolved) HAP (hospital-acquired pneumonia) (Resolved 01/15/19) HCAP (healthcare-associated pneumonia) (Resolved) Hepatomegaly (Resolved) 06/10/04 Hip joint inflamed (Resolved 09/03/15) Hip pain, left (Chronic) Hip pain, right (Chronic) Hyperlipidemia (Chronic 08/10/00) Hypertension Hypomagnesemia (Inactive) Hypoxia (Inactive) Low back pain (Resolved 04/10/03) DISC HERNIATION L4. MULTILEVEL DJD/SPINAL STENOSIS BY MRI; S/P surgery Lump in neck (Resolved) Menopausal syndrome (Resolved) 07/11/03 Muscle fatigue (Resolved) 03/04/13 PAF (paroxysmal atrial fibrillation) (Acute) Posterior tibial tendon dysfunction (Resolved) 02/03/16 Postmenopausal bleeding (Resolved) neg. endometrial biopsy Postoperative wound dehiscence (Resolved 12/23/15) Prerenal azotemia (Inactive) Primary osteoarthritis of left hip (Resolved 09/17/15) Pulmonary hypertension (Chronic) Renal impairment (Resolved 07/11/03) ADRENAL MASS. F/U W/ KINLAW positive microalbumin Restless leg syndrome (Chronic) Rotator cuff syndrome (Resolved 08/01/09) Shingles (Resolved) Smoker (Resolved 06/30/16) 01/17/17 1-2 cig/wk Spinal stenosis of lumbar region (Chronic 02/15/16) Spinal stenosis of lumbar region at multiple levels Tarsal tunnel syndrome (Resolved) 06/11/13 Tarsal tunnel syndrome (Resolved 06/11/13) Trochanteric bursitis (Resolved) 03/18/13 Upper respiratory tract infection (Resolved 08/03/15) UTI (urinary tract infection) (Inactive) Vitamin D deficiency Vitamin D deficiency (Resolved) Weakness (Inactive) Surgical History Arthrodesis right 2nd toe Cataract (Inactive 01/07/14) FOLLOWED BY [facility] cervical repair (~10/2008) C6-C7 DISK; RECURRENT SURGERY Cholecystectomy (07/31/13) Endometrial Biopsy NEG H/O arthrodesis (Resolved) right second toe H/O Spinal surgery (Resolved) multiple spine surgeries; low back x 2; She had multilevel DJD and spinal s tenosis; disc herniation. 2008-cervical repair; C6-C7 disc; recurrent surgery. History of bilateral tubal ligation (Resolved) 09/11/80 History of gynecologic surgery (Resolved) endometrial biopsy-neg History of hip surgery (Resolved) 11/10/15 left hip arthroplasty 12/04/15-placement of wound VAC to left hip History of orthopedic surgery (Resolved) 09/11/97 tarsal tunnel release Left eye surgery 12/31/17 Ligation of fallopian tube (~1980) Open Carpal Tunnel release Right wrist surgery 10/26/17 Rotator Cuff Repair (~1980) S/P CABG (coronary artery bypass graft) (Chronic 01/03/19) 4 vessel CABG and LA appendage excision, Dr. Nav Wang, [facility] [place], [place], [place] S/P carpal tunnel release (Resolved) S/P cholecystectomy (Resolved) 09/11/12 S/P rotator cuff repair (Resolved) 09/11/80 SPINE SURGERY Multiple spine surgeries, low back x 2. She had multilevel DJD and spinal stenosis, disc herniation Status post incision and drainage (Resolved) 12/04/15 left hip surgical wound dehiscence and infection tarsal tunnel release (~1997) Total replacement of hip [facility]; LEFT HIP Family History Mother Diabetes Essential hypertension Personal history of malignant neoplasm KIDNEY/LIVER/BRAIN Heart disease Hyperlipidemia Stroke Asthma Father Diabetes Essential hypertension Personal history of malignant neoplasm BONE Heart disease Asthma Sister Diabetes Essential hypertension Depression Heart disease Asthma Grandfather No problems noted. Grandfather No problems noted. Grandmother Personal history of malignant neoplasm UTERINE Grandmother Diabetes Aunt Personal history of malignant neoplasm BREAST Brother Hyperlipidemia Stroke Sister Asthma Son Asthma Daughter Depression Asthma Daughter Asthma Daughter Depression Neoplasm Asthma Brother No problems noted. 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
--- NOTE | 2019-12-22 11:37 | RESPIRATORY ---
Patient currently on RA but stated baseline is 2L O2 as needed with a DME of [employer].
--- NOTE | 2019-12-22 12:58 | PDOC.CMDIS ---
- If Service Date Differs Date of service: 12/22/19 Time of Service: 12:58 LACE Index Scoring Tool - Questions: Length of Stay (in days): 2 Acuity (Admit via E.D.?): Yes Comorbidities: Diabetes w/o Complication, Congestive Heart Failure E.D. Visits: 7 - Answers: Total Score: 12 Risk of Readmission: High Risk Care Management Discharge Reason for Hospitalization: Congestive heart failure (CHF) and Covid-19 rule-out. Discharge Plan: Ann-Marie is returning home with a resumption of home O2 through [facility] and Home Health nursing. She will follow-up with her PCP as recommended and is transporting home via private vehicle with family. Patient/Family Education Needs: Discharge instructions, limitations, follow-up plan of care, including Ask Me Three and self-management.
[2019-12-23 09:45] LABS: COVID-19 RT-PCR Result Negative (Negative)
== END 2019-12-22 12:50 | disposition home health service (06) | DRG 292 ==
LOC: ER 12:18 → RCU 13:45 → MS 12-22 10:45 → RCU 12-23 13:10
PROVIDERS: Nurse Practitioner Family; Admitting Provider Family Medicine; Emergency Provider Physician Assistant; PCP Family Medicine; Visit Provider Internal Medicine
DX: I50.33 Acute on chronic diastolic (congestive) heart failure (principal); N17.9 Acute kidney failure, unspecified; J44.9 Chronic obstructive pulmonary disease, unspecified; Z99.81 Dependence on supplemental oxygen; N18.3 Chronic kidney disease, stage 3 (moderate); E86.0 Dehydration; I27.20 Pulmonary hypertension, unspecified; E11.22 Type 2 diabetes mellitus with diabetic chronic kidney disease; E11.65 Type 2 diabetes mellitus with hyperglycemia; Z79.4 Long term (current) use of insulin; E78.5 Hyperlipidemia, unspecified
CPT/HCPCS: 36415; 80048; 80053; 85027; 93005; 94640; 99223; 99233; 99239; 99285; U0003; 71046; 81003; 81015; 83735; 83880; 84484; 85025; 85379; 85610; 85730; 93010; 93971; J1644

== ENCOUNTER 2019-12-24 12:42 | Outpatient (REF) | payer MEDICARE, MEDICAID, SELFPAY ==
[2019-12-24 13:42] LABS: Anion Gap 10.7 mmol/L (3-11); BUN 74 mg/dL (7-18); CO2 32.3 mmol/L (21.0-32.0); CREATININE 3.02 mg/dL (0.55-1.02); Calcium 10.1 mg/dL (8.5-10.1); Chloride 97 mmol/L (98-107); Estimated GFR 15.45 (mL/min/1.73m2); Glucose 158 mg/dL (74-106); Potassium 4.8 mmol/L (3.5-5.1); Sodium 140 mmol/L (136-145)
== END 2019-12-24 13:02 ==
LOC: LBN 12:42
PROVIDERS: PCP Family Medicine; Visit Provider Family Medicine
DX: I50.9 Heart failure, unspecified (principal)
CPT/HCPCS: 80048

== ENCOUNTER 2020-01-05 12:59 | Inpatient (IN) | payer MEDICARE, MEDICAID, SELFPAY ==
[2020-01-05] VITALS (7 sets, daily range): BP systolic 105–157; BP diastolic 58–78; PULSE 63–72; RESP 18–23; TEMP 36.5–37; O2SAT 95–99
--- NOTE | 2020-01-05 13:00 | DI.CT_ITS ---
EXAM: CT HEAD WO CLINICAL HISTORY: NICHOLAS, change in MS. TECHNIQUE: Imaging Protocol: Axial computed tomography images with coronal and sagittal reformatted images were created and reviewed COMPARISON: CT HEAD WO from 09/06/2019 FINDINGS: Ventricles and Extra axial spaces: Normal in size and morphology for the patient's age. Hemorrhage: None. Cerebral parenchyma: There are areas of decreased attenuation in the white matter consistent with sma ll vessel ischemic disease. An old lacunar infarct is seen. No acute territorial infarct is appreci ated. Midline shift: None. Brainstem/Cerebellum: Normal. Calvarium: Normal. Visualized Paranasal sinuses/Mastoids: Clear. Soft Tissues: Unremarkable. IMPRESSION: No acute intracranial process. RADIATION DOSE DELIVERED: Total DLP DATA REPOSITORY: All CT scans at this facility are submitted to the National Radiology Data Registry (NRDR) Dose Index Registry (DIR) with the [employer] (ACR). RADIATION OPTIMIZATION: All CT scans at this facility use at least one of these dose optimization te chniques: automated exposure control; mA and/or kV adjustment per patient size (includes targeted exa ms where dose is matched to clinical indication); or iterative reconstruction.
--- NOTE | 2020-01-05 13:15 | DI.RAD_ITS ---
EXAM: XR CHEST 2V PA LATERAL CLINICAL HISTORY: SOB TECHNIQUE: 2D digital imaging was performed. COMPARISON: XR CHEST 2V PA LATERAL from 12/20/2019 FINDINGS: MEDIASTINUM: Normal. HEART: Normal. Status post CABG. PULMONARY VASCULATURE: Normal. LUNGS: Clear. Hyperexpansion of the lungs suggesting underlying COPD. PLEURAL SPACE: No pleural effusion or pneumothorax. BONE:Degenerative changes appropriate to the patient's age. Status post cervical fusion and median s ternotomy. OTHER FINDINGS:Normal. IMPRESSION: No acute pulmonary findings. DATA REPOSITORY: RADIATION DOSE DELIVERED:
[2020-01-05 13:50] LABS: Magnesium 2.4 mg/dL (1.8-2.4)
[2020-01-05 13:51] LABS: Troponin I 0.14 ng/Ml (<0.06)
--- NOTE | 2020-01-05 14:01 | DI.VRAD_ITS ---
PROCEDURE INFORMATION: Exam: CT Head Without Contrast Exam date and time: 01/05/2020 1:41 PM Age: 69 years old Clinical indication: Altered mental status/memory loss TECHNIQUE: Imaging protocol: Computed tomography of the head without contrast. COMPARISON: CT HEAD WO 09/06/2019 1:51 PM FINDINGS: Brain: Ventricles, sulci are unchanged when compared with the patient's prior exam. There is no acute hemorrhage, mass or shift. There is no evidence of a cortical, major vascular territory infarct. No abnormal extra-axial collections are identified. Ventricles: No significant ventricular enlargement/hydrocephalus Bones/joints: No acute bony abnormality Sinuses: No significant sinus opacification or fluid level Mastoid air cells: No significant mastoid or middle ear opacification Orbits: Patient has had prior left lens replacement. Orbits are otherwise unremarkable Soft tissues: Unremarkable. Vasculature: Mild intracranial vascular calcification is noted IMPRESSION: No acute findings. No significant interval change. Dictated and Authenticated by: Marii Moore MD. Ordering:VIPIN Saxena MD
[2020-01-05] MEDS: Normal Saline 250 ML IV (14:04)
--- NOTE | 2020-01-05 14:06 | DI.VRAD_ITS ---
PROCEDURE INFORMATION: Exam: XR Chest, 2 Views Exam date and time: 01/05/2020 1:46 PM Age: 69 years old Clinical indication: Other: Altered mental status TECHNIQUE: Imaging protocol: XR of the chest Views: 2 views. COMPARISON: CR XR CHEST 2V PA LATERAL 07/20/2019 8:15 AM FINDINGS: Lungs: There is no new airspace consolidation or overt CHF Pleural space: Large effusion, pneumothorax is not seen Heart/Mediastinum: Patient has had prior median sternotomy and CABG. There has also been prior ACDF. Heart, mediastinum are unchanged. Bones/joints: There is no new bony abnormality. Degenerative changes are seen in the spine. IMPRESSION: No new airspace consolidation. No acute findings. Dictated and Authenticated by: Marii Moore MD. Ordering:VIPIN Saxena MD
[2020-01-05 14:10] LABS: Abs Immature Grans 0.07 k/cumm (0.0-0.09); Absolute Basophil Count 0.02 k/cumm (0.0-0.2); Absolute Eosinophil Count 0.27 k/cumm (0.0-0.7); Absolute Lymphocyte Count 1.09 k/cumm (1.2-3.4); Absolute Monocyte Count 0.83 k/cumm (0.11-0.7); Absolute Neutrophil Count 9.96 k/cumm (1.2-6.7); Basophils % 0.2; Eosinophils % 2.2; HCT 37.5 % (36.0-46.0); HGB 11.5 g/dL (12.0-15.5); Immature Grans % 0.6 %; Lymphocytes % 8.9; Mean Corp. HGB Concentration 30.7 g/dL (32.0-36.0); Mean Corpuscular Hemoglobin 24.8 pg (27.0-33.0); Mean Platelet Volume 9.8 fL (8.0-11.0); Monocytes % 6.8; Neutrophils % 81.3; Platelet Count 590 x1000/uL (130-400); RBC 4.63 m/cumm (4.00-5.20); RBC Distribution Width 17.4 % (11.7-14.6); White Blood Cell Count 12.25 k/cumm (4.4-10.8)
[2020-01-05 14:14] LABS: Bilirubin Negative (Negative); Blood Trace-intact (Negative); Clarity Sl Cloudy (Clear); Glucose 500 mg/dL (Negative); Ketones Negative (Negative); Leukocyte Esterase Trace (Negative); Nitrite Positive (Negative); Urobilinogen 0.2 EU/dL (Up TO 0.2); pH 6.5 (5-8)
[2020-01-05 14:22] LABS: *AMPHETAMINES SCREEN URINE Negative (Negative); *BARBITURATES SCREEN URINE Negative (Negative); *BENZODIAZEPINES SCREEN URINE Negative (Negative); Cannabinoids THC Negative (Negative); Cocaine Screen,Urine Negative (Negative); METHADONE URINE SCREEN Negative (Negative); OPIATES URINE SCREEN Negative (Negative)
--- NOTE | 2020-01-05 14:23 | NUR.NOTE ---
Initial exam demonstrated no cough. After exam episode of productive congested cough for moderate amount thick yellow phlegm. Specimen obtained and held at bedside pending orders. Nursing Note:
[2020-01-05 14:24] LABS: Tricyclic Antidepressants Negative (Negative)
--- NOTE | 2020-01-05 14:29 | W.ED.GENAD ---
Discharge Plan Disposition Patient Disposition: [facility] INPATIENT Condition: Stable Discharge Details Chief Complaint: AMS/LOC Clinical Impression: Acute UTI, Non-ST elevation SC (NSTEMI) Admit Date/Time: 01/05/20 17:33 Admit Provider: Kiran Quezada Attending Provider: Kiran Quezada Primary Care Provider: Laisha Mcmahon ED Provider: Misbah Arellano Discharge Data Discharge Date/Time-TO BE ENTERED AT DEPARTURE: 01/05/20 16:40 Medical Decision Making <SOLEDAD Ruggiero - Last Filed: 01/06/20 16:11> Is a 69-year-old patient presenting to the emergency room for complaints and change in mental status over the last 2 days. Patient arrives via EMS as daughter called ambulance yesterday patient had onset of confusion, inappropriate answers to questions which were nonsensical. Multiple episodes of incontinence of urine. She is speaking about and to relatives. Patient was able to take her morning dose of medications yesterday but otherwise daughter is been able to get her daily medications to the patient. Persisting confusion this morning, difficulty getting the patient to eat or follow any directions. EMS called for concerns. Of note patient did recently begin oxycodone prescription on . Patient did tolerate the medication without side effects on both and Monday. Onset of symptoms began yesterday morning. No obvious trauma reported per daughter. EMS made reports that patient's oxycodone bottle was empty. When questioned the daughter over the phone she reports that she is unaware where the pills went. Further questioning of the patient during her visit reveals that patient reports she dumped her pill medication yesterday, this is difficult to confirm historically as patient was clearly quite confused yesterday. Concern remains if medication was ingested. Initial evaluation of the patient reveals stable vital signs. Patient's initial evaluation in the ER she is extremely confused, disoriented to person place and time. Patient is able to state her first name is Megan but unable to state her last name. Patient unable to follow commands. Per nursing staff which is familiar with the patient this is not patient's normal baseline. Patient denies chest pain on initial evaluation or abdominal pain. Patient does report mild shortness of breath. Patient is complaining of headache currently. Denies vision change or blurred vision. Patient has no increase in respiratory effort. Patient does have mild Rales noted in the lower lung field. Patient's abdominal exam is benign. Patient has no lower leg edema bilaterally. After initial evaluation plan to check head CT to rule out any intracranial hemorrhage given patient's confusion unstable gait and complaints of headache. We will plan to check baseline labs including troponin. Will give judicial fluids given patient's history of recent renal failure and CHF. We will plan to check urinalysis. We will check blood cultures and lactate. Will check BNP due to CHF history which is well-known in this patient as well as rales noted on exam and complaint of shortness of breath. Patient has no complaints of chest pain at this time I doubt ACS although will check troponin given mental status change. I doubt PE given patient's vital signs lack of tachycardia and no hypoxia noted at this time. Will check UDS and alcohol level to evaluate for other possible causes of confusion and change in mental status Patient's initial EKG reveals sinus rhythm with a rate of 71. No ST elevation SC present. QTc 459. Reviewed with Dr. Arellano. Labs reviewed. Mild leukocytosis with a white count of 12.25. Absolute neutrophil 9.9. Patient's BUN is notably 88 with a creatinine of 2.64 and GFR of 18.04. Patient's BNP is noted to be 409. No significant change in the last few weeks. Blood sugar noted to be 278. Patient's daughter reports this is her baseline. She did not take her daily medications today. Initial troponin is elevated at 0.14. Patient has no active chest pain at this time. Patient has no obvious ST elevation on her EKG at this time. We will plan to check delta troponin. Question of patient was oversedated with pain medication and had decreased respiratory effort. Patient has a history of pulmonary hypertension and possibly this is due to right heart strain. Will plan to reevaluate delta troponin. Patient's lactate is 1.2. This plan of care was discussed with Dr. Arellano who did also evaluate patient at the bedside. Reevaluation of the patient reveals significant improvement in her neurologic exam. Patient is now alert and oriented x3. Patient is able to follow commands without difficulty. Patient speech is clear. Patient reports she feels she possibly was reacting to pain medication. Patient appears significantly improved at her baseline at this time. Patient continues to deny any chest pain. Patient does have a notable wet cough. Patient reports very minimal shortness of breath at this time. Vital signs remained stable. Patient's head CT today reveals no acute intracranial abnormality. Chest x-ray reveals pleural effusion. No new evidence of CHF or infiltrate. Patient's urinalysis is remarkable for an infection. Patient has positive nitrites, trace leukocyte Estrace, 5-10 white blood cells and many bacteria present. Glucose is also present. Given patient's confusion. It is possible this is a source of patient's confusion. Will provide Rocephin 1 g IV for appropriate management of UTI at this time. I did speak with patient's daughter regarding her initial findings. She reports that after beginning oxycodone on she did tolerate the medication without difficulty both on and Monday. She only took a.m. medications on Monday. She does not believe she had additional oxycodone on Monday unless she took this medication on her own. It is unclear whether oxycodone was causing patient's symptoms however her drug screen is negative for any opiates at this time. At this time it is unclear if oxycodone is the cause of patient's confusion. Given patient's obvious urinary tract infection this is a very possible source. Patient has received appropriate antibiotics at this time. Initial fluid bolus of 250 cc of normal saline with additional 75 cc/h. We will plan to sign patient out pending repeat troponin and disposition. Patient signed out to Dr. Arellano who is familiar with the case. <Misbah Arellano MD - Last Filed: 01/05/20 17:29> Received signout on the patient from Ms. Wells. Please see her note regarding details of the presentation, exam, plan of care. Patient's history includes diabetes, hypertension, hyperlipidemia, pulmonary hypertension, chronic renal Insufficiency, and paroxysmal atrial fibrillation. Briefly, this is an elderly female who had presented for altered mental status at home today. She had been noted to initiate a course of narcotic analgesia for back pain starting on January 01. This was a new prescription. After arrival to the ER she progressively became more more alert and interactive. She noted development of a cough over 2 days time and noted to me that she did feel confused at home including asking for her . She now feels improved. Repeat troponin is 0.14 and unchanged. On reevaluation at approximately 5:15 PM patient states she has no headache, no further chest pain and is feeling improved. Repeat EKG is unremarkable. I discussed the case with Dr. Quezada, we will proceed with admission including precautionary COVID testing. HPI <SOLEDAD Ruggiero - Last Filed: 01/06/20 16:11> General Date/Time Provider Initiated Documentation: 01/05/20 13:13. HPI Narrative: This is a 69-year-old woman presenting to the emergency room from home for complaints of altered mental status specifically increased confusion for the last few days. Patient was reportedly referencing family members, was extremely confused at home. Was incontinent of urine several times since yesterday morning. Patient's confusion began yesterday morning. Patient was complaining of a moderate headache. Daughter reports she was compliant with her medications they were able to get the 8 AM meds and yesterday morning but unable to get evening meds or this morning meds. Patient began a prescription of oxycodone on . After taking the as needed medication on and Monday she was tolerating the medication. When EMS arrives with the patient they report patient's pill bottle is entirely empty at this time. I spoke with patient's daughter who is unaware of where the remainder of the medication went. Question if patient was taking too much medication at home and was adversely affected her oversedated and confused due to medication dosing. Patient denies chest pain currently. Patient denies abdominal pain currently. Patient arrives to the emergency room confused and disoriented to person and time. Mild tremor noted. Reportedly afebrile at home. Mild complaints of shortness of breath in the last 24 hours patient with a history of CHF and recent admission for renal failure. Related Data Home Medications Medication Instructions Recorded Confirmed folic acid 1 mg tablet 1 mg PO DAILY #90 tab 05/21/18 12/20/19 nystatin 100,000 unit/gram topical 1 applic TOPICAL BID PRN #30 gm 12/04/18 12/20/19 cream meclizine 12.5 mg tablet 25 mg PO TID PRN #60 tab 12/17/18 01/05/20 lancets 33 gauge #100 each 12/18/18 12/20/19 magnesium hydroxide [Milk of 30 ml PO PRN PRN 01/15/19 12/20/19 Magnesia] polyethylene glycol 3350 [Miralax] 1 g PO PRN PRN 01/15/19 12/20/19 acetaminophen [Tylenol Extra 1,000 mg PO Q8H PRN PRN #0 tab 01/22/19 01/05/20 Strength] aspirin [Aspir-81] 81 mg PO DAILY #30 tab 01/22/19 01/05/20 lancets 25 gauge #100 each 01/29/19 12/20/19 ergocalciferol (vitamin D2) 1,250 50,000 unit PO M-W-F #36 tab-cap 01/30/19 12/20/19 mcg (50,000 unit) capsule albuterol sulfate 2.5 mg INHALATION Q2H PRN PRN #0 ml 02/12/19 12/20/19 diltiazem HCl 120 mg 240 mg PO DAILY #180 cap 02/21/19 12/20/19 capsule,extended release 24 hr epinephrine 0.3 mg/0.3 mL 0.3 mg IM ONCE #2 dose 04/29/19 12/20/19 injection, auto-injector budesonide-formoterol HFA 160 2 puff IH BID #10.2 gm 05/21/19 12/20/19 mcg-4.5 mcg/actuation aerosol inhaler metoprolol succinate 50 mg 25 mg PO DAILY #90 tab 05/24/19 12/20/19 tablet,extended release 24 hr allopurinol 100 mg tablet 100 mg PO DAILY #90 tab-cap 08/26/19 01/05/20 B-complex with vitamin C 1 tab PO DAILY 09/19/19 12/20/19 calcium carbonate 500 mg calcium 500 mg PO DAILY 09/19/19 12/20/19 (1,250 mg) tablet estradiol 1 gm VG DAILY gm 09/19/19 12/20/19 atorvastatin 40 mg tablet 40 mg PO DAILY #90 tab-cap 10/31/19 01/05/20 duloxetine 60 mg capsule,delayed 60 mg PO DAILY #90 tab-cap 10/31/19 01/05/20 release gabapentin 600 mg tablet 600 mg PO TID #270 tab-cap 10/31/19 01/05/20 pen needle, diabetic 31 gauge x #450 each 10/31/19 12/20/19 1/4 ropinirole 2 mg tablet 2 mg PO QPM PRN #90 tab 10/31/19 12/20/19 potassium chloride 20 mEq 20 meq PO DAILY #90 tab 11/07/19 12/20/19 tablet,extended release baclofen 10 mg tablet 10 mg PO TID #90 tab 12/04/19 01/05/20 torsemide 100 mg tablet 100 mg PO DAILY #180 tab 12/13/19 01/05/20 sitagliptin 25 mg tablet 25 mg PO DAILY #90 tab 12/17/19 01/05/20 Basaglar KwikPen U-100 Insulin 35 unit SC HS #45 ml 12/22/19 12/22/19 metolazone 5 mg PO Q48H #90 tab 12/22/19 01/05/20 spironolactone 50 mg PO DAILY #180 tab 12/22/19 01/05/20 blood sugar diagnostic #300 each 12/24/19 insulin aspart U-100 100 unit/mL 15 unit SC TID #30 ml 12/24/19 (3 mL) subcutaneous pen insulin aspart U-100 100 unit/mL 15 unit SC TID #30 ml 12/24/19 (3 mL) subcutaneous pen oxycodone 10 mg tablet 10 mg PO TID PRN #21 tab MDD 3 01/02/20 01/02/20 magnesium chloride [Slow-Mag] 71.5 mg PO BID 01/05/20 01/05/20 omeprazole 40 mg PO BID 01/05/20 01/05/20 Previous Rx's Medication Instructions Recorded folic acid 1 mg tablet 1 mg PO DAILY #90 tab 05/21/18 nystatin 100,000 unit/gram topical 1 applic TOPICAL BID PRN #30 gm 12/04/18 cream meclizine 12.5 mg tablet 25 mg PO TID PRN #60 tab 12/17/18 lancets 33 gauge #100 each 12/18/18 acetaminophen [Tylenol Extra 1,000 mg PO Q8H PRN PRN #0 tab 01/22/19 Strength] aspirin [Aspir-81] 81 mg PO DAILY #30 tab 01/22/19 lancets 25 gauge #100 each 01/29/19 ergocalciferol (vitamin D2) 1,250 50,000 unit PO M-W-F #36 tab-cap 01/30/19 mcg (50,000 unit) capsule albuterol sulfate 2.5 mg INHALATION Q2H PRN PRN #0 ml 02/12/19 diltiazem HCl 120 mg 240 mg PO DAILY #180 cap 02/21/19 capsule,extended release 24 hr epinephrine 0.3 mg/0.3 mL 0.3 mg IM ONCE #2 dose 04/29/19 injection, auto-injector budesonide-formoterol HFA 160 2 puff IH BID #10.2 gm 05/21/19 mcg-4.5 mcg/actuation aerosol inhaler metoprolol succinate 50 mg 25 mg PO DAILY #90 tab 05/24/19 tablet,extended release 24 hr allopurinol 100 mg tablet 100 mg PO DAILY #90 tab-cap 08/26/19 atorvastatin 40 mg tablet 40 mg PO DAILY #90 tab-cap 10/31/19 duloxetine 60 mg capsule,delayed 60 mg PO DAILY #90 tab-cap 10/31/19 release gabapentin 600 mg tablet 600 mg PO TID #270 tab-cap 10/31/19 pen needle, diabetic 31 gauge x #450 each 10/31/1909/14 ropinirole 2 mg tablet 2 mg PO QPM PRN #90 tab 10/31/19 potassium chloride 20 mEq 20 meq PO DAILY #90 tab 11/07/19 tablet,extended release baclofen 10 mg tablet 10 mg PO TID #90 tab 12/04/19 torsemide 100 mg tablet 100 mg PO DAILY #180 tab 12/13/19 sitagliptin 25 mg tablet 25 mg PO DAILY #90 tab 12/17/19 Basaglar KwikPen U-100 Insulin 35 unit SC HS #45 ml 12/22/19 metolazone 5 mg PO Q48H #90 tab 12/22/19 spironolactone 50 mg PO DAILY #180 tab 12/22/19 blood sugar diagnostic #300 each 12/24/19 insulin aspart U-100 100 unit/mL 15 unit SC TID #30 ml 12/24/19 (3 mL) subcutaneous pen insulin aspart U-100 100 unit/mL 15 unit SC TID #30 ml 12/24/19 (3 mL) subcutaneous pen oxycodone 10 mg tablet 10 mg PO TID PRN #21 tab MDD 3 01/02/20 Allergies Allergy/AdvReac Type Severity Reaction Status Date / Time venom-honey bee Allergy Severe ANAPHYLAXIS Verified 01/05/20 13:17 adhesive Allergy BLISTERS Verified 01/05/20 13:17 General Stated Complaint: AMS/LOC STEPHANIE: 2 Review of Systems <SOLEDAD Ruggiero - Last Filed: 01/06/20 16:11> All systems reviewed & are unremarkable except as noted in HPI and below Constitutional Constitutional: Denies chills, Denies fatigue, Denies fever(s), Reports headache(s) and Reports other (Mildly tremorous) Eyes Eyes: Denies blurry vision, Denies change in vision and Denies diplopia ENT Ears, Nose, Mouth, and Throat: Reports dizziness, Reports headache(s), Denies neck pain, Reports disequilibrium, Denies sinus pain, Denies sinus pressure and Denies sore throat Cardiovascular Cardiovascular: Denies chest pain, Denies rapid heart rate, Denies lightheadedness, Denies radiating jaw, neck or arm pain, Denies palpitations and Reports dyspnea (Mild) Respiratory Respiratory: Reports cough (Mild, wet), Denies pain on inspiration, Denies pain with cough and Reports dyspnea (Mild) Gastrointestinal Gastrointestinal: Denies abdominal pain, Denies diarrhea, Reports nausea and Reports vomiting (Dry heaving last evening) Genitourinary Genitourinary: Denies dysuria, Reports urinary incontinence and Denies urinary urgency Musculoskeletal Musculoskeletal: Denies neck pain Neurologic Neurologic: Reports confusion, Reports dizziness, Reports headache(s) and Reports disequilibrium Psychiatric Psychiatric: Reports confusion Endocrine Endocrine: Denies fatigue and Denies palpitations PFSH <SOLEDAD Ruggiero - Last Filed: 01/06/20 16:11> Medical History Abnormal mammography (Resolved) 08/10/06 Acute kidney injury superimposed on chronic kidney disease (Inactive) Anemia (Chronic) Ankle pain (Resolved 03/13/14) Atrial fibrillation (Chronic) paroxysmal, onset 2015, anticoagulated w/ Xarelto; anticoagulation discontinued after left atrial appendage excision 01/03/2019 Atrial fibrillation Atrial flutter (Inactive) Carpal tunnel syndrome Carpal tunnel syndrome (Resolved 08/10/06) BILATERAL R S/P SURGERY Cervical disc disorder with myelopathy (Resolved 08/21/08) S/P surgery x 2 Cervical spondylosis with myelopathy Chest pain (Resolved) Neg Stress test Chronic obstructive lung disease (Chronic) CKD (chronic kidney disease) stage 3, GFR 30-59 ml/min (Chronic) Cr about 2.5 Constipation (Inactive) Dehydration (Inactive) Diabetes mellitus (Chronic) Diabetes mellitus (Resolved) 09/20/10 Positive Microalbumin Diastolic CHF (Inactive) Essential hypertension (Chronic) Folate deficiency (Resolved 02/15/16) Gout Gout (Chronic 07/06/11) Gram-positive bacteremia (Resolved) HAP (hospital-acquired pneumonia) (Resolved 01/15/19) HCAP (healthcare-associated pneumonia) (Resolved) Hepatomegaly (Resolved) 06/10/04 Hip joint inflamed (Resolved 09/03/15) Hip pain, left (Chronic) Hip pain, right (Chronic) Hyperlipidemia (Chronic 08/10/00) Hypertension Hypomagnesemia (Inactive) Hypoxia (Inactive) Low back pain (Resolved 04/10/03) DISC HERNIATION L4. MULTILEVEL DJD/SPINAL STENOSIS BY MRI; S/P surgery Lump in neck (Resolved) Menopausal syndrome (Resolved) 07/11/03 Muscle fatigue (Resolved) 03/04/13 PAF (paroxysmal atrial fibrillation) (Chronic) Posterior tibial tendon dysfunction (Resolved) 02/03/16 Postmenopausal bleeding (Resolved) neg. endometrial biopsy Postoperative wound dehiscence (Resolved 12/23/15) Prerenal azotemia (Inactive) Primary osteoarthritis of left hip (Resolved 09/17/15) Pulmonary hypertension (Chronic) Renal impairment (Resolved 07/11/03) ADRENAL MASS. F/U W/ KINLAW positive microalbumin Restless leg syndrome (Chronic) Rotator cuff syndrome (Resolved 08/01/09) Shingles (Resolved) Smoker (Resolved 06/30/16) 01/17/17 1-2 cig/wk Spinal stenosis of lumbar region (Chronic 02/15/16) Spinal stenosis of lumbar region at multiple levels Tarsal tunnel syndrome (Resolved) 06/11/13 Tarsal tunnel syndrome (Resolved 06/11/13) Trochanteric bursitis (Resolved) 03/18/13 Upper respiratory tract infection (Resolved 08/03/15) UTI (urinary tract infection) (Inactive) Vitamin D deficiency Vitamin D deficiency (Resolved) Weakness (Inactive) Surgical History Arthrodesis right 2nd toe Cataract (Inactive 01/07/14) FOLLOWED BY [employer] cervical repair (~10/2008) C6-C7 DISK; RECURRENT SURGERY Cholecystectomy (07/31/13) Endometrial Biopsy NEG H/O arthrodesis (Resolved) right second toe H/O Spinal surgery (Resolved) multiple spine surgeries; low back x 2; She had multilevel DJD and spinal stenosis; disc herniation. 2009-cervical repair; C6-C7 disc; recurrent surgery. History of bilateral tubal ligation (Resolved) 09/11/80 History of gynecologic surgery (Resolved) endometrial biopsy-neg History of hip surgery (Resolved) 11/10/15 left hip arthroplasty 12/04/15-placement of wound VAC to left hip History of orthopedic surgery (Resolved) 09/11/97 tarsal tunnel release Left eye surgery 12/31/17 Ligation of fallopian tube (~1980) Open Carpal Tunnel release Right wrist surgery 10/26/17 Rotator Cuff Repair (~1980) S/P CABG (coronary artery bypass graft) (Chronic 01/03/19) 4 vessel CABG and LA appendage excision, Dr. Nav Wang, [facility] [place], [place], [place] S/P carpal tunnel release (Resolved) S/P cholecystectomy (Resolved) 09/11/12 S/P rotator cuff repair (Resolved) 09/11/80 SPINE SURGERY Multiple spine surgeries, low back x 2. She had multilevel DJD and spinal stenosis, disc herniation Status post incision and drainage (Resolved) 12/04/15 left hip surgical wound dehiscence and infection tarsal tunnel release (~1997) Total replacement of hip [facility]; LEFT HIP Family History Mother Diabetes Essential hypertension Personal history of malignant neoplasm KIDNEY/LIVER/BRAIN Heart disease Hyperlipidemia Stroke Asthma Father Diabetes Essential hypertension Personal history of malignant neoplasm BONE Heart disease Asthma Sister Diabetes Essential hypertension Depression Heart disease Asthma Grandfather No problems noted. Grandfather No problems noted. Grandmother Personal history of malignant neoplasm UTERINE Grandmother Diabetes Aunt Personal history of malignant neoplasm BREAST Brother Hyperlipidemia Stroke Sister Asthma Son Asthma Daughter Depression Asthma Daughter Asthma Daughter Depression Neoplasm Asthma Brother No problems noted. 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 Well hydrated. Disoriented to time and place, only able to provide her first name. HENMT: Head nomocephalic, normal to inspection. Atraumatic. Hearing grossly normal. External ear canal no erythema or swelling. TM normal bilaterally. Nose normal to inspection. No rhinnorhea. Normal facial exam. Oral mucosa normal. Tounge normal. Dentition normal. Normal posterior oropharynx. Uvula midline. EYES: General normal appearance. Alignment normal. Eyelids normal. Conjunctiva normal. Sclera normal. PERRL. No nystagmus NECK: Normal visual inspection. FROM. No lymphadenopathy. Trachea midline. No Midline tenderness. CHEST: Normal insepection of the chest. RESP: Normal respiratory effort. Speaking full sentences. Wet cough present. No increase in respiratory effort. Breathing is unlabored. Mild rales noted in the lower lung chan bilaterally. No rhonchi or wheezing. CARDIO: No JVD. Normal PMI. Regular Rate. Regular Rhythm. Normal peripheral pulses. GI: Normal inspection of abdomen. No distension. Soft. Nontender. Bowel sounds present in all 4 quadrants. No rebound. No gaurding. MUSCULOSKELETAL: Normal Gait. FROM of all extremities. Distal neurovascularly intact. Sensation intact distally. No significant distal edema noted bilaterally. SKIN: Normal. Dry. No rashes. NEURO: Initial neurologic exam is extremely limited by patient's mental status, inability to answer questions, disorientation. Reevaluation of the patient reveals a normal neurologic exam. Reevaluation reveals: Alert and oriented x 3. Speech is clear. Cranial nerves intact as tested III - XI. No Nystagmus. Gait normal. Strength intact in all extremities. Sensation intact in all extremities. PSYCH: Normal affect. Cooperative. Course <SOLEDAD Ruggiero - Last Filed: 01/06/20 16:11> Vital Signs Vital signs: Vital Signs Temperature 37.0 C 01/05/20 13:03 Pulse 72 01/05/20 13:03 Blood Pressure 133/65 01/05/20 13:03 Pulse Oximetry 95 01/05/20 13:03 Temperature 36.5 C 01/05/20 14:26 Temperature Source Temporal Artery Scan 01/05/20 14:26 Pulse 71 01/05/20 14:26 Respiratory Rate 23 01/05/20 14:26 Respiratory Effort 01/05/20 14:11 Respiratory Depth Normal 01/05/20 14:11 Respiratory Pattern Normal 01/05/20 14:11 Blood Pressure 122/61 01/05/20 14:26 Blood Pressure Position Sitting 01/05/20 13:03 Pulse Oximetry 99 01/05/20 14:26 Oxygen Delivery Method Nasal Cannula 01/05/20 14:26 Oxygen Flow Rate 2 01/05/20 14:26 Pain Level 0 01/05/20 14:26 Lab/Test Results Lab/Test Results: 01/05/20 14:00 Urine - Cath Straight Urine Culture - Pending 01/05/20 13:15 Blood Blood Culture - Pending 01/05/20 13:15 Blood Blood Culture - Pending Laboratory Tests Range/Units 01/05/20 01/05/20 01/05/20 13:20 13:20 14:00 WBC (4.4-10.8) k/cumm 12.25 H RBC (4.00-5.20) m/cumm 4.63 Hgb (12.0-15.5) g/dL 11.5 L Hct (36.0-46.0) % 37.5 MCV (80-95) fL 81.0 MCH (27.0-33.0) pg 24.8 L MCHC (32.0-36.0) g/dL 30.7 L RDW (11.7-14.6) % 17.4 H Plt Count (130-400) x1000/uL 590 H D MPV (8.0-11.0) fL 9.8 Immature Gran % % 0.6 Neutrophils % 81.3 Lymphocytes % 8.9 Monocytes % 6.8 Eosinophils % 2.2 Basophils % 0.2 Absolute Neutrophils (1.2-6.7) k/cumm 9.96 H Absolute Lymphocytes (1.2-3.4) k/cumm 1.09 L Absolute Monocytes (0.11-0.7) k/cumm 0.83 H Absolute Eosinophils (0.0-0.7) k/cumm 0.27 Absolute Basophils (0.0-0.2) k/cumm 0.02 Magnesium (1.8-2.4) mg/dL 2.4 Troponin I (<0.06) ng/Ml 0.14 H* Urine Opiates Screen (Negative) Negative Urine Methadone Screen (Negative) Negative Ur Barbiturates Screen (Negative) Negative Ur Tricyclics Screen (Negative) Negative Ur Amphetamines Screen (Negative) Negative U Benzodiazepines Scrn (Negative) Negative Urine Cocaine Screen (Negative) Negative Ur THC Screen (Negative) Negative Sign Out <SOLEDAD Ruggiero - Last Filed: 01/06/20 16:11> Sign Out Data: Sign Out Comment: Signed out pending repeat troponin and disposition Last updated by Odessa Roa PA at 01/05/20 16:28
[2020-01-05 14:32] LABS: ALT 34 U/L (14-59); AST 33 U/L (15-37); Albumin 3.8 g/dL (3.4-5.0); Alkaline Phosphatase 78 U/L (46-116); Anion Gap 8.5 mmol/L (3-11); Bilirubin, Total 0.5 mg/dL (0.2-1.0); CO2 35.5 mmol/L (21.0-32.0); CREATININE 2.64 mg/dL (0.55-1.02); Calcium 10.3 mg/dL (8.5-10.1); Chloride 92 mmol/L (98-107); Estimated GFR 18.04 (mL/min/1.73m2); Glucose 278 mg/dL (74-106); Lipase 79 U/L (73-393); NT-proBNP 409 pg/mL (<300); Potassium 3.7 mmol/L (3.5-5.1); Sodium 136 mmol/L (136-145); Total Protein 8.2 g/dL (6.4-8.2)
[2020-01-05 14:33] LABS: BUN 88 mg/dL (7-18)
[2020-01-05 14:34] LABS: ETHANOL BLOOD < 3.0 mg/dL (<3)
[2020-01-05 14:42] LABS: Bacteria Many HPF (Negative); Epithelial Cells Few HPF (Negative); Other Cells Rare Renal (Negative); RBC 0-2 HPF (0-2)
[2020-01-05 14:43] LABS: C & S Indicated? C&S Done As Ordered; Casts Negative LPF (Negative); Crystals Negative HPF (Negative); Mucus Negative (Negative)
[2020-01-05 15:21] LABS: Lactate 1.2 mmol/L (0.6-1.4)
[2020-01-05] MEDS: cefTRIAXone 1 GM/50 ML BAG IVPB (15:51)
[2020-01-05] MEDS: Acetaminophen 500 MG TAB 1000 MG PO (15:51)
[2020-01-05] MEDS: Normal Saline 1,000 ML 75 ML IV (17:02)
[2020-01-05 17:17] LABS: Troponin I 0.14 ng/Ml (<0.06)
--- NOTE | 2020-01-05 17:26 | W.PM.HP.N ---
Date of service: 01/05/20 Time of Service: 17:26 Assessment and Plan Assessment and plan (1) Altered mental status: Start date: 01/05/20 Status: Acute Assessment and plan: This is a 69-year-old with multiple medical problems who most likely was overdosing on her oxycodone which was given recently for pain. She appeared to have a UTI which may be complicating her mental status changes and was slightly dry not having been eating and drinking normally last 2 days. She is chronically on diuretics. Mental status cleared in the ED with gentle IV hydration and time in the because of her elevated troponins and UTI most likely causing part of her mental status changes she was admitted for IV hydration and IV antibiotics as well as trending her troponins to reassure that this most likely secondary problem was stable. She is a DNR/DNI and will be treated maximally medically for her medical problems. ED did not speak to cardiology because of her stable troponins though slightly elevated. I agree that this most likely is a secondary problem most likely from strain with high PA pressures and dehydration with recent mental status changes. Qualifiers: Altered mental status type: delirium Qualified Code(s): R41.0 - Disorientation, unspecified (2) UTI (urinary tract infection): Start date: 01/05/20 Status: Acute Assessment and plan: IV Rocephin and follow-up on cultures adjusting to oral antibiotics as appropriate. Continue gentle IV hydration overnight and patient is awake now taking oral hydration well. Qualifiers: Hematuria presence: without hematuria Urinary tract infection type: site unspecified Qualified Code(s): N39.0 - Urinary tract infection, site not specified (3) CAD (coronary artery disease), [place] coronary artery: Status: Chronic Assessment and plan: Status post CABG x4 with no chest pain or change in EKG though slight bump in troponin probably secondary to strain with right heart failure and elevated PA pressures and preserved left ventricular ejection fraction by recent echocardiogram. We will trend troponins and if increasing consider calling cardiology for possible transfer though this is unlikely to occur. Qualifiers: Associated angina: without angina [place] vs. transplanted heart: [place] heart Qualified Code(s): I25.10 - Atherosclerotic heart disease of [place] coronary artery without angina pectoris (4) PAF (paroxysmal atrial fibrillation): Status: Chronic Assessment and plan: Patient is in normal sinus rhythm presently and we will monitor on telemetry. Her EKG was within normal limits with no acute ST-T changes or evidence of ischemia upon admission. She is not on chronic anticoagulation but will be on subcutaneous heparin during her hospital stay. (5) CHF (congestive heart failure): Status: Chronic Assessment and plan: Overnight gentle IV hydration and in the morning reevaluate this need with follow-up lab. Diuretics will be continued in the morning. Qualifiers: Heart failure chronicity: chronic Heart failure type: right-sided Qualified Code(s): I50.812 - Chronic right heart failure (6) CKD stage 4 due to type 2 diabetes mellitus: Status: Chronic Assessment and plan: For exacerbation of her CKD with IV hydration overnight and then resumed usual diuretics in the morning if stable. Is also may be exacerbated by her UTI though there is no evidence of pyelonephritis. Consider renal ultrasound if her creatinine worsens though it appears fairly stable with review over the last few measurements from November to present. In fact she had a higher creatinine December 24, 2019 then upon admission today. Clinically and by histyory she is slightly dehydrated upon this admission. History of Present Illness History of Present Illness Chief Complaint: Increased confusion over the last 2 days Narrative: This is a 69-year-old lady with multiple medical problems who over the last 2 days has had increasing confusion and missed her morning dose of medications the day prior to admission. She did start oxycodone last week and this may have caused increased confusion with this being discontinued. In the ED her mental status cleared. She was having increased urinary incontinence along with her delusional thought processes with patient seeing and speaking to relatives. There was report that her oxycodone bottle was empty she may have been overdosing because of her degree confusion. Her urine drug screen did not screen for oxycodone but she cleared without Narcan in the ED. She also was slightly dry with worsened CKD usually is stage III but at stage IV on admission and she does have uncontrolled diabetes with a hemoglobin A1c usually in the range of 8. Her labs are fairly stable otherwise except for a slight increase in her troponin which was stable with a delta troponin and no symptoms of chest pain or increased shortness of breath or evidence of worsening right-sided CHF. Last echocardiogram did show a preserved left ventricular ejection fraction with increased PA pressures. She is on diuretics chronically. Patient was admitted for gentle IV hydration overnight and IV Rocephin for her UTI which may be contributing to her confusion. Also she would not be given narcotics with the patient having chronic pain and comfortable presently. We will trend her troponins and she is a DNR/DNI with medical treatment of her possible exacerbated CAD appropriate. Her EKG showed no acute changes. She has a history of proximal atrial fibrillation but is not on anticoagulation. She will be on subcutaneous heparin while in the hospital. She is morbidly obese and not very active chronically. Review of Systems Narrative: 13 point review of systems otherwise unrevealing or stable. As stated she is morbidly obese with chronic pain and does not appear to be physically active. [facility] Medical History Abnormal mammography (Resolved) 08/10/06 Acute kidney injury superimposed on chronic kidney disease (Inactive) Anemia (Chronic) Ankle pain (Resolved 03/13/14) Atrial fibrillation (Chronic) paroxysmal, onset 2015, anticoagulated w/ Xarelto; anticoagulation discontinued after left atrial appendage excision 01/03/2019 Atrial fibrillation Atrial flutter (Inactive) Carpal tunnel syndrome Carpal tunnel syndrome (Resolved 08/10/06) BILATERAL R S/P SURGERY Cervical disc disorder with myelopathy (Resolved 08/21/08) S/P surgery x 2 Cervical spondylosis with myelopathy Chest pain (Resolved) Neg Stress test Chronic obstructive lung disease (Chronic) CKD (chronic kidney disease) stage 3, GFR 30-59 ml/min (Chronic) Cr about 2.5 Constipation (Inactive) Dehydration (Inactive) Diabetes mellitus (Chronic) Diabetes mellitus (Resolved) 09/20/10 Positive Microalbumin Diastolic CHF (Inactive) Essential hypertension (Chronic) Folate deficiency (Resolved 02/15/16) Gout Gout (Chronic 07/06/11) Gram-positive bacteremia (Resolved) HAP (hospital-acquired pneumonia) (Resolved 01/15/19) HCAP (healthcare-associated pneumonia) (Resolved) Hepatomegaly (Resolved) 06/10/04 Hip joint inflamed (Resolved 09/03/15) Hip pain, left (Chronic) Hip pain, right (Chronic) Hyperlipidemia (Chronic 08/10/00) Hypertension Hypomagnesemia (Inactive) Hypoxia (Inactive) Low back pain (Resolved 04/10/03) DISC HERNIATION L4. MULTILEVEL DJD/SPINAL STENOSIS BY MRI; S/P surgery Lump in neck (Resolved) Menopausal syndrome (Resolved) 07/11/03 Muscle fatigue (Resolved) 03/04/13 PAF (paroxysmal atrial fibrillation) (Acute) Posterior tibial tendon dysfunction (Resolved) 02/03/16 Postmenopausal bleeding (Resolved) neg. endometrial biopsy Postoperative wound dehiscence (Resolved 12/23/15) Prerenal azotemia (Inactive) Primary osteoarthritis of left hip (Resolved 09/17/15) Pulmonary hypertension (Chronic) Renal impairment (Resolved 07/11/03) ADRENAL MASS. F/U W/ [place] positive microalbumin Restless leg syndrome (Chronic) Rotator cuff syndrome (Resolved 08/01/09) Shingles (Resolved) Smoker (Resolved 06/30/16) 01/17/17 1-2 cig/wk Spinal stenosis of lumbar region (Chronic 02/15/16) Spinal stenosis of lumbar region at multiple levels Tarsal tunnel syndrome (Resolved) 06/11/13 Tarsal tunnel syndrome (Resolved 06/11/13) Trochanteric bursitis (Resolved) 03/18/13 Upper respiratory tract infection (Resolved 08/03/15) UTI (urinary tract infection) (Inactive) Vitamin D deficiency Vitamin D deficiency (Resolved) Weakness (Inactive) Surgical History Arthrodesis right 2nd toe Cataract (Inactive 01/07/14) FOLLOWED BY [employer] cervical repair (~10/2008) C6-C7 DISK; RECURRENT SURGERY Cholecystectomy (07/31/13) Endometrial Biopsy NEG H/O arthrodesis (Resolved) right second toe H/O Spinal surgery (Resolved) multiple spine surgeries; low back x 2; She had multilevel DJD and spinal stenosis; disc herniation. 2008-cervical repair; C6-C7 disc; recurrent surgery. History of bilateral tubal ligation (Resolved) 09/11/80 History of gynecologic surgery (Resolved) endometrial biopsy-neg History of hip surgery (Resolved) 11/10/15 left hip arthroplasty 12/04/15-placement of wound VAC to left hip History of orthopedic surgery (Resolved) 09/11/97 tarsal tunnel release Left eye surgery 12/31/17 Ligation of fallopian tube (~1980) Open Carpal Tunnel release Right wrist surgery 10/26/17 Rotator Cuff Repair (~1980) S/P CABG (coronary artery bypass graft) (Chronic 01/03/19) 4 vessel CABG and LA appendage excision, Dr. Nav Wang, [facility], [place], [place] S/P carpal tunnel release (Resolved) S/P cholecystectomy (Resolved) 09/11/12 S/P rotator cuff repair (Resolved) 09/11/80 SPINE SURGERY Multiple spine surgeries, low back x 2. She had multilevel DJD and spinal stenosis, disc herniation Status post incision and drainage (Resolved) 12/04/15 left hip surgical wound dehiscence and infection tarsal tunnel release (~1997) Total replacement of hip [facility]; LEFT HIP Family History Mother Diabetes Essential hypertension Personal history of malignant neoplasm KIDNEY/LIVER/BRAIN Heart disease Hyperlipidemia Stroke Asthma Father Diabetes Essential hypertension Personal history of malignant neoplasm BONE Heart disease Asthma Sister Diabetes Essential hypertension Depression Heart disease Asthma Grandfather No problems noted. Grandfather No problems noted. Grandmother Personal history of malignant neoplasm UTERINE Grandmother Diabetes Aunt Personal history of malignant neoplasm BREAST Brother Hyperlipidemia Stroke Sister Asthma Son Asthma Daughter Depression Asthma Daughter Asthma Daughter Depression Neoplasm Asthma Brother No problems noted. 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 [employer] Pets and animals: Yes Pets and animals: cat(s), dog(s) and horse(s) What type of physical activity do you participate in: none Saniya/Worship: Druze Special saniya needs: No Do you feel safe at home: Yes Do you feel safe in your relationship?: Yes Meds Home Medications and Allergies Home Medications Medication Instructions Recorded Confirmed Type folic acid 1 mg tablet 1 mg PO DAILY #90 tab 05/21/18 12/20/19 Rx nystatin 100,000 unit/gram topical 1 applic TOPICAL BID PRN #30 gm 12/04/18 12/20/19 Rx cream meclizine 12.5 mg tablet 25 mg PO TID PRN #60 tab 12/17/18 01/05/20 Rx lancets 33 gauge #100 each 12/18/18 12/20/19 Rx magnesium hydroxide [Milk of 30 ml PO PRN PRN 01/15/19 12/20/19 History Magnesia] polyethylene glycol 3350 [Miralax] 1 g PO PRN PRN 01/15/19 12/20/19 History acetaminophen [Tylenol Extra 1,000 mg PO Q8H PRN PRN #0 tab 01/22/19 01/05/20 Rx Strength] aspirin [Aspir-81] 81 mg PO DAILY #30 tab 01/22/19 01/05/20 Rx lancets 25 gauge #100 each 01/29/19 12/20/19 Rx ergocalciferol (vitamin D2) 1,250 50,000 unit PO M-W-F #36 tab-cap 01/30/19 12/20/19 Rx mcg (50,000 unit) capsule albuterol sulfate 2.5 mg INHALATION Q2H PRN PRN #0 ml 02/12/19 12/20/19 Rx diltiazem HCl 120 mg 240 mg PO DAILY #180 cap 02/21/19 12/20/19 Rx capsule,extended release 24 hr epinephrine 0.3 mg/0.3 mL 0.3 mg IM ONCE #2 dose 04/29/19 12/20/19 Rx injection, auto-injector budesonide-formoterol HFA 160 2 puff IH BID #10.2 gm 05/21/19 12/20/19 Rx mcg-4.5 mcg/actuation aerosol inhaler metoprolol succinate 50 mg 25 mg PO DAILY #90 tab 05/24/19 12/20/19 Rx tablet,extended release 24 hr allopurinol 100 mg tablet 100 mg PO DAILY #90 tab-cap 08/26/19 01/05/20 Rx B-complex with vitamin C 1 tab PO DAILY 09/19/19 12/20/19 History calcium carbonate 500 mg calcium 500 mg PO DAILY 09/19/19 12/20/19 History (1,250 mg) tablet estradiol 1 gm VG DAILY gm 09/19/19 12/20/19 History atorvastatin 40 mg tablet 40 mg PO DAILY #90 tab-cap 10/31/19 01/05/20 Rx duloxetine 60 mg capsule,delayed 60 mg PO DAILY #90 tab-cap 10/31/19 01/05/20 Rx release gabapentin 600 mg tablet 600 mg PO TID #270 tab-cap 10/31/19 01/05/20 Rx pen needle, diabetic 31 gauge x #450 each 10/31/19 12/20/19 Rx 1/4 ropinirole 2 mg tablet 2 mg PO QPM PRN #90 tab 10/31/19 12/20/19 Rx potassium chloride 20 mEq 20 meq PO DAILY #90 tab 11/07/19 12/20/19 Rx tablet,extended release baclofen 10 mg tablet 10 mg PO TID #90 tab 12/04/19 01/05/20 Rx torsemide 100 mg tablet 100 mg PO DAILY #180 tab 12/13/19 01/05/20 Rx sitagliptin 25 mg tablet 25 mg PO DAILY #90 tab 12/17/19 01/05/20 Rx Basaglar KwikPen U-100 Insulin 35 unit SC HS #45 ml 12/22/19 12/22/19 Rx metolazone 5 mg PO Q48H #90 tab 12/22/19 01/05/20 Rx spironolactone 50 mg PO DAILY #180 tab 12/22/19 01/05/20 Rx blood sugar diagnostic #300 each 12/24/19 Rx insulin aspart U-100 100 unit/mL 15 unit SC TID #30 ml 12/24/19 Rx (3 mL) subcutaneous pen insulin aspart U-100 100 unit/mL 15 unit SC TID #30 ml 12/24/19 Rx (3 mL) subcutaneous pen oxycodone 10 mg tablet 10 mg PO TID PRN #21 tab MDD 3 01/02/20 01/02/20 Rx magnesium chloride [Slow-Mag] 71.5 mg PO BID 01/05/20 01/05/20 History omeprazole 40 mg PO BID 01/05/20 01/05/20 History Allergies Allergy/AdvReac Type Severity Reaction Status Date / Time venom-honey bee Allergy Severe ANAPHYLAXIS Verified 01/05/20 13:17 adhesive Allergy BLISTERS Verified 01/05/20 13:17 Exam Narrative Exam Narrative: General: Patient is alert and oriented x3 at the time of my exam and in no acute distress. She is morbidly obese lying comfortably in bed with her head elevated. She is able to sit up upon command without difficulty. HEENT: Normocephalic with eyes revealing pupils equal and reactive to light symmetrically, sclera anicteric and extraocular movement intact. Oropharynx with slightly dry oral mucosa. Neck: Supple without JVD. Back: Stooped posture with no CVA tenderness. Lungs: Bronchovesicular breath sounds diffusely with fair aeration and no focalizing rales or rhonchi. Upper airway expiratory wheeze occasionally. No increased expiratory phase. Heart: Regular rate and rhythm with no murmurs or gallops appreciated. Breast: Exam deferred. Abdomen: Obese contour, soft and nontender to palpation with no palpable hepatosplenomegaly. Bowel sounds positive all quadrants. Genitalia/rectal: Exam deferred. Extremities: Moderate chronic edema which appears to be nonpitting with obesity over lower extremities, decreased range of motion large joints without swelling, no clubbing. Good capillary refill with peripheral pulses intact. Skin: Warm and dry with no rashes. Neuro: Cranial nerves II through XII grossly intact, no focalizing motor deficits. Sensory testing not done. Psych: No abnormal thought processes. Remote and recent memory intact. Results Imaging Imaging Studies: Exam: XR Chest, 2 Views Exam date and time: 01/05/2020 1:46 PM Age: 69 years old Clinical indication: Other: Altered mental status TECHNIQUE: Imaging protocol: XR of the chest Views: 2 views. COMPARISON: CR XR CHEST 2V PA LATERAL 07/20/2019 8:15 AM FINDINGS: Lungs: There is no new airspace consolidation or overt CHF Pleural space: Large effusion, pneumothorax is not seen Heart/Mediastinum: Patient has had prior median sternotomy and CABG. There has also been prior ACDF. Heart, mediastinum are unchanged. Bones/joints: There is no new bony abnormality. Degenerative changes are seen in the spine. IMPRESSION: No new airspace consolidation. No acute findings. Dictated and Authenticated by: Marii Moore MD. Exam: CT Head Without Contrast Exam date and time: 01/05/2020 1:41 PM Age: 69 years old Clinical indication: Altered mental status/memory loss TECHNIQUE: Imaging protocol: Computed tomography of the head without contrast. COMPARISON: CT HEAD WO 09/06/2019 1:51 PM FINDINGS: Brain: Ventricles, sulci are unchanged when compared with the patient's prior exam. There is no acute hemorrhage, mass or shift. There is no evidence of a cortical, major vascular territory infarct. No abnormal extra-axial collections are identified. Ventricles: No significant ventricular enlargement/hydrocephalus Bones/joints: No acute bony abnormality Sinuses: No significant sinus opacification or fluid level Mastoid air cells: No significant mastoid or middle ear opacification Orbits: Patient has had prior left lens replacement. Orbits are otherwise unremarkable Soft tissues: Unremarkable. Vasculature: Mild intracranial vascular calcification is noted IMPRESSION: No acute findings. No significant interval change. Dictated and Authenticated by: Marii Moore MD. a US:US echocardiogram APPROVED REPORT Conclusion Left Ventricle : The left ventricle is normal size. left ventricular hypertrophy with sigmoid septum, no obstructions at rest or with provocation. There is some septal bowing which suggests RV pressure overload. Otherwise, segment wall motion is normal. The left ventricular diastolic function is normal. LVEF is 60-65%. Right Ventricle : Right ventricle is dilated. The right ventricular systolic function is normal. Atria : The left atrium size is normal. The right atrium size is normal. Aortic Valve : No aortic regurgitation is present. Aortic valve is trileaflet and mobile. Aortic valve leaflets are mildly thickened. The Aortic valve annulus has focal calcification. Aortic sclerosis without stenosis Mitral Valve : Mitral valve leaflets are mildly thickened. MV bends without prolapse Trivial mitral regurgitation. No evidence of mitral valve stenosis. Tricuspid Valve : The tricuspid valve leaflets are thickened but open well. Moderate tricuspid regurgitation. The RVSP is 45-50mmHg Great Vessels : The IVC is normal in size and collapses >50% with inspiration. Echocardiogram dated 01/16/2019: Estimated RV pressures have increased slightly. EXAM: Comprehensive 2D, Doppler, and color-flow Echocardiogram Patient Location: Out-Patient Service Loss Control Consultant: GYPSY Arteaga (AE) Rhythm: NSR Indications: Congestive heart failure. i50.9 Labs Result diagrams: 01/05/20 13:20 01/05/20 13:20 Labs: Laboratory Results - last 24 hr 01/05/20 01/05/20 01/05/20 13:14 13:20 13:20 WBC 12.25 H RBC 4.63 Hgb 11.5 L Hct 37.5 MCV 81.0 MCH 24.8 L MCHC 30.7 L RDW 17.4 H Plt Count 590 H D MPV 9.8 Immature Gran % 0.6 Neutrophils % 81.3 Lymphocytes % 8.9 Monocytes % 6.8 Eosinophils % 2.2 Basophils % 0.2 Absolute Neutrophils 9.96 H Absolute Lymphocytes 1.09 L Absolute Monocytes 0.83 H Absolute Eosinophils 0.27 Absolute Basophils 0.02 Sodium 136 Potassium 3.7 Chloride 92 L Carbon Dioxide 35.5 H Anion Gap 8.5 BUN 88 H* Creatinine 2.64 H Estimated GFR/1.73 m2 18.04 Glucose 278 H Lactate Cancelled Calcium 10.3 H Magnesium Total Bilirubin 0.5 AST 33 ALT 34 Alkaline Phosphatase 78 Troponin I NT-Pro-B Natriuret Pep 409 H Total Protein 8.2 Albumin 3.8 Lipase 79 Urine Color Urine Clarity Urine pH Ur Specific [place] Urine Protein Urine Ketones Urine Blood Urine Nitrite Urine Bilirubin Urine Urobilinogen Ur Leukocyte Esterase Urine RBC Urine WBC Ur Epithelial Cells Urine Crystals Urine Bacteria Urine Casts Urine Mucus Urine Other Ur Culture Indicated? Urine Glucose Urine Opiates Screen Urine Methadone Screen Ur Barbiturates Screen Ur Tricyclics Screen Ur Amphetamines Screen U Benzodiazepines Scrn Urine Cocaine Screen Ur THC Screen Ethyl Alcohol 01/05/20 01/05/20 01/05/20 13:20 13:20 14:00 WBC RBC Hgb Hct MCV MCH MCHC RDW Plt Count MPV Immature Gran % Neutrophils % Lymphocytes % Monocytes % Eosinophils % Basophils % Absolute Neutrophils Absolute Lymphocytes Absolute Monocytes Absolute Eosinophils Absolute Basophils Sodium Potassium Chloride Carbon Dioxide Anion Gap BUN Creatinine Estimated GFR/1.73 m2 Glucose Lactate Calcium Magnesium 2.4 Total Bilirubin AST ALT Alkaline Phosphatase Troponin I 0.14 H* NT-Pro-B Natriuret Pep Total Protein Albumin Lipase Urine Color Yellow Urine Clarity Sl cloudy Urine pH 6.5 Ur Specific [place] 1.020 Urine Protein Negative Urine Ketones Negative Urine Blood Trace-intact H Urine Nitrite Positive H Urine Bilirubin Negative Urine Urobilinogen 0.2 Ur Leukocyte Esterase Trace H Urine RBC 0-2 Urine WBC 5-10 Ur Epithelial Cells Few Urine Crystals Negative Urine Bacteria Many Urine Casts Negative Urine Mucus Negative Urine Other Rare renal Ur Culture Indicated? C&s done as ordered Urine Glucose 500 H Urine Opiates Screen Urine Methadone Screen Ur Barbiturates Screen Ur Tricyclics Screen Ur Amphetamines Screen U Benzodiazepines Scrn Urine Cocaine Screen Ur THC Screen Ethyl Alcohol < 3.0 01/05/20 01/05/20 01/05/20 14:00 14:02 15:17 WBC RBC Hgb Hct MCV MCH MCHC RDW Plt Count MPV Immature Gran % Neutrophils % Lymphocytes % Monocytes % Eosinophils % Basophils % Absolute Neutrophils Absolute Lymphocytes Absolute Monocytes Absolute Eosinophils Absolute Basophils Sodium Potassium Chloride Carbon Dioxide Anion Gap BUN Creatinine Estimated GFR/1.73 m2 Glucose Lactate Cancelled 1.2 Calcium Magnesium Total Bilirubin AST ALT Alkaline Phosphatase Troponin I NT-Pro-B Natriuret Pep Total Protein Albumin Lipase Urine Color Urine Clarity Urine pH Ur Specific [place] Urine Protein Urine Ketones Urine Blood Urine Nitrite Urine Bilirubin Urine Urobilinogen Ur Leukocyte Esterase Urine RBC Urine WBC Ur Epithelial Cells Urine Crystals Urine Bacteria Urine Casts Urine Mucus Urine Other Ur Culture Indicated? Urine Glucose Urine Opiates Screen Negative Urine Methadone Screen Negative Ur Barbiturates Screen Negative Ur Tricyclics Screen Negative Ur Amphetamines Screen Negative U Benzodiazepines Scrn Negative Urine Cocaine Screen Negative Ur THC Screen Negative Ethyl Alcohol 01/05/20 16:20 WBC RBC Hgb Hct MCV MCH MCHC RDW Plt Count MPV Immature Gran % Neutrophils % Lymphocytes % Monocytes % Eosinophils % Basophils % Absolute Neutrophils Absolute Lymphocytes Absolute Monocytes Absolute Eosinophils Absolute Basophils Sodium Potassium Chloride Carbon Dioxide Anion Gap BUN Creatinine Estimated GFR/1.73 m2 Glucose Lactate Calcium Magnesium Total Bilirubin AST ALT Alkaline Phosphatase Troponin I 0.14 H* NT-Pro-B Natriuret Pep Total Protein Albumin Lipase Urine Color Urine Clarity Urine pH Ur Specific [place] Urine Protein Urine Ketones Urine Blood Urine Nitrite Urine Bilirubin Urine Urobilinogen Ur Leukocyte Esterase Urine RBC Urine WBC Ur Epithelial Cells Urine Crystals Urine Bacteria Urine Casts Urine Mucus Urine Other Ur Culture Indicated? Urine Glucose Urine Opiates Screen Urine Methadone Screen Ur Barbiturates Screen Ur Tricyclics Screen Ur Amphetamines Screen U Benzodiazepines Scrn Urine Cocaine Screen Ur THC Screen Ethyl Alcohol Last Vital Signs Temp 36.5 C 01/05/20 14:26 Pulse 71 01/05/20 14:26 Resp 23 01/05/20 14:26 BP 122/61 01/05/20 14:26 Pulse Ox 99 01/05/20 14:26 COVID-19 Screening Traveled to [place] from one of the affected countries or regions?: NO Recent travel in the [facility] within the last 14 days?: No Exposure or possible exposure to illness during travel?: No Had IN PERSON contact w/suspected or confirmed C-19 person: No Have you had the following symptoms in the past few days?: No Medical treatment received for symptoms/illness related to travel?: sob x 2 days
[2020-01-05] MEDS: Aspirin 325 MG TAB PO (18:29)
[2020-01-05] MEDS: Omeprazole 20 MG CAPCR 40 MG PO (20:44)
[2020-01-05] MEDS: rOPINIRole 0.5 MG TAB 2 MG PO (20:44)
[2020-01-05] MEDS: Baclofen 10 MG TAB PO (20:45)
[2020-01-05] MEDS: Gabapentin 600 MG TAB PO (20:45)
[2020-01-05] MEDS: Atorvastatin 40 MG TAB PO (20:45)
[2020-01-05] MEDS: Magnesium Chloride 64 MG TABCR PO (20:45)
[2020-01-05] MEDS: Metoprolol 25 MG TAB PO (20:45)
[2020-01-05] MEDS: Budesonide/Formoterol 160/4.5 6 GM 60 PUFF INH IH (21:54)
[2020-01-05] MEDS: Insulin Aspart 300 UNITS/3 ML PEN SC (21:55)
[2020-01-05] MEDS: Heparin 5,000 UNITS/ML VIAL 5000 UNITS SC (21:56)
[2020-01-05 22:31] LABS: TSH (W/Ref FT4) 0.75 uIU/mL (0.36-3.74)
[2020-01-05 22:33] LABS: Troponin I 0.14 ng/Ml (<0.06)
[2020-01-05] MEDS: Normal Saline Flush 10 ML SYR IVP (23:35)
[2020-01-05] MEDS: Ondansetron 4 MG/2 ML VIAL IVP (23:35)
[2020-01-06] VITALS (9 sets, daily range): BP systolic 113–138; BP diastolic 64–78; PULSE 58–74; RESP 18–22; TEMP 36.4–36.7; O2SAT 91–98
[2020-01-06] MEDS: Normal Saline Flush 10 ML SYR IVP ×2 (00:59→14:11)
[2020-01-06] MEDS: Heparin 5,000 UNITS/ML VIAL 5000 UNITS SC ×3 (06:47→22:00)
[2020-01-06 06:53] LABS: HCT 34.8 % (36.0-46.0); HGB 10.2 g/dL (12.0-15.5); Mean Corp. HGB Concentration 29.3 g/dL (32.0-36.0); Mean Corpuscular Hemoglobin 24.1 pg (27.0-33.0); Mean Corpuscular Volume 82.1 fL (80-95); Mean Platelet Volume 9.8 fL (8.0-11.0); Platelet Count 498 x1000/uL (130-400); RBC 4.24 m/cumm (4.00-5.20); RBC Distribution Width 17.1 % (11.7-14.6); White Blood Cell Count 10.32 k/cumm (4.4-10.8)
[2020-01-06 07:09] LABS: ALT 27 U/L (14-59); AST 31 U/L (15-37); Albumin 3.2 g/dL (3.4-5.0); Alkaline Phosphatase 63 U/L (46-116); BUN 73 mg/dL (7-18); Bilirubin, Total 0.5 mg/dL (0.2-1.0); CREATININE 2.21 mg/dL (0.55-1.02); Calcium 9.4 mg/dL (8.5-10.1); Chloride 95 mmol/L (98-107); Estimated GFR 22.15 (mL/min/1.73m2); Glucose 203 mg/dL (74-106); Potassium 3.3 mmol/L (3.5-5.1); Sodium 134 mmol/L (136-145)
[2020-01-06 07:27] LABS: Troponin I 0.08 ng/Ml (<0.06)
[2020-01-06] MEDS: Insulin Aspart 300 UNITS/3 ML PEN SC ×4 (08:27→22:00)
[2020-01-06] MEDS: Omeprazole 20 MG CAPCR 40 MG PO ×2 (09:05→21:02)
[2020-01-06] MEDS: Metoprolol 25 MG TAB PO ×2 (09:06→21:02)
[2020-01-06] MEDS: Torsemide 100 MG TAB PO (09:06)
[2020-01-06] MEDS: Potassium Chloride 20 MEQ TABCR PO (09:06)
[2020-01-06] MEDS: dilTIAZem CD 120 MG CAPCR 240 MG PO (09:06)
[2020-01-06] MEDS: Folic Acid 1 MG TAB PO (09:06)
[2020-01-06] MEDS: Gabapentin 600 MG TAB PO ×3 (09:06→21:02)
[2020-01-06] MEDS: Baclofen 10 MG TAB PO ×3 (09:06→21:02)
[2020-01-06] MEDS: Spironolactone 50 MG TAB PO (09:07)
[2020-01-06] MEDS: Allopurinol 100 MG TAB PO (09:07)
[2020-01-06] MEDS: Potassium Chloride 20 MEQ TABCR 40 MEQ PO ×2 (09:07→15:43)
[2020-01-06] MEDS: Aspirin E.C. 81 MG TABEC PO (09:08)
[2020-01-06] MEDS: DULoxetine 30 MG CAP 60 MG PO (09:08)
[2020-01-06] MEDS: Calcium Carbonate 1.25 GM TAB 0.625 GM PO (09:08)
[2020-01-06] MEDS: Magnesium Chloride 64 MG TABCR PO ×2 (09:08→21:02)
--- NOTE | 2020-01-06 09:49 | PDOC.CMIN ---
- If Service Date Differs Date of service: 01/06/20 Time of Service: 09:49 Care Management Initial Assess REASON FOR HOSPITALIZATION:: Altered mental status, UTI, and CAD (coronary artery disease). PAST MEDICAL HISTORY/PAST SURGICAL HISTORY:: Medical History: Abnormal mammography - 08/10/06, Acute kidney injury superimposed on chronic kidney disease, Anemia, Ankle pain, Atrial fibrillation, paroxysmal, onset 2015, anticoagulated w/ Xarelto; anticoagulation discontinued after left atrial appendage excision 01/03/2019,. Atrial flutter, Carpal tunnel syndrome - BILATERAL - R S/P SURGERY, Cervical disc disorder with myelopathy - S/P surgery x 2, Cervical spondylosis with myelopathy, Chest pain - Neg Stress test, Chronic obstructive lung disease, CKD (chronic kidney disease) stage 3, GFR 30-59 ml/min - Cr about 2.5, Constipation, Dehydration, Diabetes mellitus - 09/20/10 Positive Microalbumin, Diastolic CHF, Essential hypertension, Folate deficiency,. Gout, Gram-positive bacteremia, HAP (hospital-acquired pneumonia), Hepatomegaly - 06/10/04, Hip joint inflamed, Hip pain, left and right, Hyperlipidemia, Hypertension, Hypomagnesemia, Hypoxia, Low back pain - DISC HERNIATION L4. MULTILEVEL DJD/SPINAL STENOSIS BY MRI; S/P surgery, Lump in neck, Menopausal syndrome - 07/11/03, Muscle fatigue - 03/04/13, PAF (paroxysmal atrial fibrillation), Posterior tibial tendon dysfunction - 02/03/16, Postmenopausal bleeding - neg. endometrial biopsy, Postoperative wound dehiscence, Prerenal azotemia , Primary osteoarthritis of left hip, Pulmonary hypertension, Renal impairment - ADRENAL MASS. F/U W/ KINLAW - positive microalbumin, Restless leg syndrome, Rotator cuff syndrome, Shingles, Smoker, Spinal stenosis of lumbar region at multiple levels, Tarsal tunnel syndrome, Trochanteric bursitis, Upper respiratory tract infection, UTI (urinary tract infection), Vitamin D deficiency, and Weakness. Surgical History: Arthrodesis - right 2nd toe, Cataract - FOLLOWED BY OPTICAL EXPRESSIONS, cervical repair - C6-C7 DISK; RECURRENT SURGERY,. Cholecystectomy, Endometrial Biopsy - NEG, H/O arthrodesis - right second toe, H/O Spinal surgery, multiple spine surgeries; low back x 2; She had multilevel DJD and spinal stenosis; disc herniation. 2008-cervical repair; C6-C7 disc; recurrent surgery, History of bilateral tubal ligation, History of gynecologic surgery, History of hip surgery - 11/10/15 left hip arthroplasty 12/04/15-placement of wound VAC to left hip, History of orthopedic surgery -. 09/11/97 tarsal tunnel release, Left eye surgery, Open Carpal Tunnel release. Right wrist surgery, Rotator Cuff Repair, S/P CABG (coronary artery bypass graft) - 4 vessel CABG and LA appendage excision, Dr. Nav Wang, [facility] [place], [place], [place] S/P carpal tunnel release, S/P cholecystectomy,. Status post incision and drainage - 12/04/15 left hip surgical wound dehiscence and infection, and Total replacement of hip - [facility]; LEFT HIP. PREVIOUS FUNCTIONAL STATUS/SOCIAL/FAMILY SUPPORTS:: Ann-Marie resides in [place] with her daughter, Elli, and 18 year old granddaughter. She is and has four adult children. Ann-Marie spends her time at home watching television, crocheting, baking, and shares her dog rarely leaves her side when she is home. 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 Her daughter, Elli, helps to care for her at home. CURRENT FUNCTIONAL STATUS:: Ann-Marie is in bed sound asleep when CM comes to meet with her. She will be at the hospital through today, so CM chooses not to wake her up. CM will continue to follow. ADVANCE DIRECTIVES:: On file at [facility]; daughter Elli Griggs is healthcare agent. Has patient been provided with information about the portal?: Yes Did the patient sign up for the portal?: No CODE STATUS:: DNR/DNI INSURANCE COVERAGE / FINANCIAL ISSUES:: Medicare and Medicaid. CURRENT HOME/COMMUNITY SERVICES/EQUIPMENT:: Ann-Marie owns a FWW, several canes, a high rise for her toilet, a shower chair, and a commode. A Home Health nurse comes to her home weekly. Ann-Marie also has home oxygen through [facility], which she primarily uses at night. PRIMARY CARE PHYSICIAN:: Laisha Mcmahon MD ([facility]). POTENTIAL DISCHARGE NEEDS:: Follow-up appointment with PCP and cardiology. PATIENT/FAMILY EDUCATION NEEDS:: Discharge instructions, limitations, follow-up plan of care, including Ask Me Three and self-management. ANTICIPATED BARRIERS TO DISCHARGE:: None. TRANSPORTATION:: Via private vehicle with family. PLAN:: Anticipate Ann-Marie will return home with a resumption of Home Health nursing and MATERIAL REQUIREMENTS PLANNING MANAGER, and home O2 through [facility] when medically cleared by provider. Her daughter, Elli, will transport her home via private vehicle when ready. CM to continue to follow. Readmission - Within the Past 30 Days Yes or No: Y - Date of First Admission Date of 1st Admission: 12/20/19 - Date of this Admission Date of Admission: 01/05/20 This admission was: Through ED - Office Visit Since 1st Admission Have you seen your PCP in the office since discharge?: Yes Date of PCP Appointment: 12/24/2019 and 01/02/2020 Had an appointment Been Scheduled?: Yes - Speicalist Appointments Have you seen any other specialist since your 1st Admission?: No - I. Interview patient and/or Family Difficulty reaching your doctor or getting an office appt?: No Have you had trouble purchasing/ or taking medication?: Yes Describe barriers fpr purchasing or taking medication: Can't afford co-pays for insulin. How do you take your medications and set up your pills?: nursing campbell her pill bottles. Ann-Marie administers her own medication. Have you had trouble with getting meals at home?: No Describe your typical meals since you have been home: Cereal for breakfast, sandwich or salad for lunch, and hot meal prepared by her daughter at dinner time. Did you feel ready for discharge when you left the last time: Yes Were services received that you thought were set up on disch: Yes What services were received?: [facility] RN and MATERIAL REQUIREMENTS PLANNING MANAGER. Did you call your physician beore you came to the ED?: No How do you think you became sick enough to come back?: Got really confused and started shaking. - If the patient had a VNA ordered Did you call the VNA before you came?: No - If the patient came from Ext. Facility Call the Facility to discuss the patient's admission: N/A - Ask the Care Team Members: What do you think caused the patient to be readmitted: Patient experienced an altered mental status. - ED visits How many ED visits in the past 12 months: 7 - Assessment for Readmission Summary of readmission circumstances, based upon interviews: Patient experienced confusion and a change in mental status over a period of 2 days prior to readmission.
[2020-01-06] MEDS: Budesonide/Formoterol 160/4.5 6 GM 60 PUFF INH IH ×2 (10:07→21:01)
--- NOTE | 2020-01-06 10:15 | CCONE_ITS ---
Date of service: 01/06/20 Time of Service: 10:16 Assessment and Plan Assessment and plan (1) CKD stage 4 due to type 2 diabetes mellitus: Status: Chronic Assessment and plan: 1. Mildly elevated troponin in the setting of altered mental status and urinary tract infection. Patient's troponin peaked at 0.14 in the setting of chronic kidney disease and urinary tract infection. She did not have any significant symptoms of angina and EKG is unchanged. This likely represents a type II non- STEMI. Given her chronic kidney disease and elevated creatinine any small leakage of troponin will be exaggerated. I do not think she needs aggressive medical therapy with anticoagulation at this point. ?Continue aspirin, atorvastatin, metoprolol ?Would consider outpatient stress test in the next few weeks but will discuss this with her more in depth. Previously she had difficulty tolerating the stress test. 2. Coronary artery disease status post bypass surgery: Discussed above. ?Continue aspirin atorvastatin and metoprolol 3. Diastolic dysfunction: She appears dry on exam today. Would hold her diuretics in the setting of urinary tract infection but it is imperative that she not get discharged off of diuretics as she has been in and out of the hospital multiple times with fluid overload. It has been quite difficult to manage her fluid status. She may need an extra day or 2 in the hospital monitoring her kidney function while reinstating her diuretics to full dose. Baseline kidney function is not entirely clear but likely somewhere around 1.6- 1.8. Her lowest creatinine was 1.56 in September of this year but she has no other readings at low. 4. Paroxysmal atrial fibrillation: In normal sinus rhythm now. ?Continue metoprolol and diltiazem. ?Continue aspirin (2) S/P CABG (coronary artery bypass graft): Status: Chronic (3) PAF (paroxysmal atrial fibrillation): Status: Chronic History of Present Illness History of Present Illness Chief Complaint: Elevated troponin Narrative: Ms Griggs is a 69-year-old female with past medical history significant for coronary artery disease status post CABG x4 as well as diastolic dysfunction, PAF and chronic kidney disease who presented yesterday with altered mental status. This is felt to be due to overdosing on oxycodone as well as possible urinary tract infection leading to dehydration. As part of her work-up she had a cardiac troponin drawn which was mildly elevated 0.14--> 0.08). She says she is does not recall having any kind of chest pain during her initial confusion episode (granted she was confused at this time) nor does she have any chest pain currently. She denies lightheadedness dizziness. She has had no significant shortness of breath outside of her baseline. She says her weights have been stable and she is happy with how her diuretics have been over the past few weeks. She has had no syncope or presyncopal episodes. Consults Consult date: 01/06/20 Requesting physician: Elvira Mims Review of Systems All systems reviewed & are unremarkable except as noted in HPI and below [facility] Medical History Abnormal mammography (Resolved) 08/10/06 Acute kidney injury superimposed on chronic kidney disease (Inactive) Anemia (Chronic) Ankle pain (Resolved 03/13/14) Atrial fibrillation (Chronic) paroxysmal, onset 2015, anticoagulated w/ Xarelto; anticoagulation discontinued after left atrial appendage excision 01/03/2019 Atrial fibrillation Atrial flutter (Inactive) Carpal tunnel syndrome Carpal tunnel syndrome (Resolved 08/10/06) BILATERAL R S/P SURGERY Cervical disc disorder with myelopathy (Resolved 08/21/08) S/P surgery x 2 Cervical spondylosis with myelopathy Chest pain (Resolved) Neg Stress test Chronic obstructive lung disease (Chronic) CKD (chronic kidney disease) stage 3, GFR 30-59 ml/min (Chronic) Cr about 2.5 Constipation (Inactive) Dehydration (Inactive) Diabetes mellitus (Chronic) Diabetes mellitus (Resolved) 09/20/10 Positive Microalbumin Diastolic CHF (Inactive) Essential hypertension (Chronic) Folate deficiency (Resolved 02/15/16) Gout Gout (Chronic 07/06/11) Gram-positive bacteremia (Resolved) HAP (hospital-acquired pneumonia) (Resolved 01/15/19) HCAP (healthcare-associated pneumonia) (Resolved) Hepatomegaly (Resolved) 06/10/04 Hip joint inflamed (Resolved 09/03/15) Hip pain, left (Chronic) Hip pain, right (Chronic) Hyperlipidemia (Chronic 08/10/00) Hypertension Hypomagnesemia (Inactive) Hypoxia (Inactive) Low back pain (Resolved 04/10/03) DISC HERNIATION L4. MULTILEVEL DJD/SPINAL STENOSIS BY MRI; S/P surgery Lump in neck (Resolved) Menopausal syndrome (Resolved) 07/11/03 Muscle fatigue (Resolved) 03/04/13 PAF (paroxysmal atrial fibrillation) (Chronic) Posterior tibial tendon dysfunction (Resolved) 02/03/16 Postmenopausal bleeding (Resolved) neg. endometrial biopsy Postoperative wound dehiscence (Resolved 12/23/15) Prerenal azotemia (Inactive) Primary osteoarthritis of left hip (Resolved 09/17/15) Pulmonary hypertension (Chronic) Renal impairment (Resolved 07/11/03) ADRENAL MASS. F/U W/ KINLAW positive microalbumin Restless leg syndrome (Chronic) Rotator cuff syndrome (Resolved 08/01/09) Shingles (Resolved) Smoker (Resolved 06/30/16) 01/17/17 1-2 cig/wk Spinal stenosis of lumbar region (Chronic 02/15/16) Spinal stenosis of lumbar region at multiple levels Tarsal tunnel syndrome (Resolved) 06/11/13 Tarsal tunnel syndrome (Resolved 06/11/13) Trochanteric bursitis (Resolved) 03/18/13 Upper respiratory tract infection (Resolved 08/03/15) UTI (urinary tract infection) (Inactive) Vitamin D deficiency Vitamin D deficiency (Resolved) Weakness (Inactive) Surgical History Arthrodesis right 2nd toe Cataract (Inactive 01/07/14) FOLLOWED BY OPTICAL EXPRESSIONS cervical repair (~10/2008) C6-C7 DISK; RECURRENT SURGERY Cholecystectomy (07/31/13) Endometrial Biopsy NEG H/O arthrodesis (Resolved) right second toe H/O Spinal surgery (Resolved) multiple spine surgeries; low back x 2; She had multilevel DJD and spinal stenosis; disc herniation. 2008-cervical repair; C6-C7 disc; recurrent surgery. History of bilateral tubal ligation (Resolved) 09/11/80 History of gynecologic surgery (Resolved) endometrial biopsy-neg History of hip surgery (Resolved) 11/10/15 left hip arthroplasty 12/04/15-placement of wound VAC to left hip History of orthopedic surgery (Resolved) 09/11/97 tarsal tunnel release Left eye surgery 12/31/17 Ligation of fallopian tube (~1980) Open Carpal Tunnel release Right wrist surgery 10/26/17 Rotator Cuff Repair (~1980) S/P CABG (coronary artery bypass graft) (Chronic 01/03/19) 4 vessel CABG and LA appendage excision, Dr. Nav Wang, [facility] [place], [place], [place] S/P carpal tunnel release (Resolved) S/P cholecystectomy (Resolved) 09/11/12 S/P rotator cuff repair (Resolved) 09/11/80 SPINE SURGERY Multiple spine surgeries, low back x 2. She had multilevel DJD and spinal stenosis, disc herniation Status post incision and drainage (Resolved) 12/04/15 left hip surgical wound dehiscence and infection tarsal tunnel release (~1997) Total replacement of hip [facility]; LEFT HIP Family History Mother Diabetes Essential hypertension Personal history of malignant neoplasm KIDNEY/LIVER/BRAIN Heart disease Hyperlipidemia Stroke Asthma Father Diabetes Essential hypertension Personal history of malignant neoplasm BONE Heart disease Asthma Sister Diabetes Essential hypertension Depression Heart disease Asthma Grandfather No problems noted. Grandfather No problems noted. Grandmother Personal history of malignant neoplasm UTERINE Grandmother Diabetes Aunt Personal history of malignant neoplasm BREAST Brother Hyperlipidemia Stroke Sister Asthma Son Asthma Daughter Depression Asthma Daughter Asthma Daughter Depression Neoplasm Asthma Brother No problems noted. 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 Pets and animals: Yes Pets and animals: cat(s), dog(s) and horse(s) What type of physical activity do you participate in: none Saniya/Zoroastrian: Islam Special saniya needs: No Do you feel safe at home: Yes Do you feel safe in your relationship?: Yes Exam Const General: comfortable and no acute distress [facility] Head: normocephalic and atraumatic Eyes General: appearance normal, both eyes and all related structures Resp Effort & Inspection: normal respiratory effort Auscultation: clear to auscultation bilaterally Cardio Jugular venous pressure: no JVD Palpation: normal PMI Rate: regular rate Rhythm: regular rhythm Heart Sounds: S1 normal and S2 normal (No Murmurs, Rubs or Gallops) GI Palpation: soft Auscultation: normoactive bowel sounds Skin General skin exam: no rashes or lesions noted Extrem General: normal to inspection and edema Laterality: bilateral Psych Appearance: grossly normal Results Last Vital Signs Temp 36.5 C 01/06/20 07:31 Pulse 67 01/06/20 07:31 Resp 18 01/06/20 07:31 BP 136/78 01/06/20 07:31 Pulse Ox 95 01/06/20 10:08 Labs Result diagrams: 01/06/20 06:11 01/06/20 06:11 Labs: Laboratory Results - last 24 hr 01/05/20 01/05/20 01/05/20 13:14 13:20 13:20 WBC 12.25 H RBC 4.63 Hgb 11.5 L Hct 37.5 MCV 81.0 MCH 24.8 L MCHC 30.7 L RDW 17.4 H Plt Count 590 H D MPV 9.8 Immature Gran % 0.6 Neutrophils % 81.3 Lymphocytes % 8.9 Monocytes % 6.8 Eosinophils % 2.2 Basophils % 0.2 Absolute Neutrophils 9.96 H Absolute Lymphocytes 1.09 L Absolute Monocytes 0.83 H Absolute Eosinophils 0.27 Absolute Basophils 0.02 Sodium 136 Potassium 3.7 Chloride 92 L Carbon Dioxide 35.5 H Anion Gap 8.5 BUN 88 H* Creatinine 2.64 H Estimated GFR/1.73 m2 18.04 Glucose 278 H Lactate Cancelled Calcium 10.3 H Magnesium Total Bilirubin 0.5 AST 33 ALT 34 Alkaline Phosphatase 78 Troponin I NT-Pro-B Natriuret Pep 409 H Total Protein 8.2 Albumin 3.8 Lipase 79 TSH Urine Color Urine Clarity Urine pH Ur Specific [place] Urine Protein Urine Ketones Urine Blood Urine Nitrite Urine Bilirubin Urine Urobilinogen Ur Leukocyte Esterase Urine RBC Urine WBC Ur Epithelial Cells Urine Crystals Urine Bacteria Urine Casts Urine Mucus Urine Other Ur Culture Indicated? Urine Glucose Urine Opiates Screen Urine Methadone Screen Ur Barbiturates Screen Ur Tricyclics Screen Ur Amphetamines Screen U Benzodiazepines Scrn Urine Cocaine Screen Ur THC Screen Ethyl Alcohol 01/05/20 01/05/20 01/05/20 13:20 13:20 14:00 WBC RBC Hgb Hct MCV MCH MCHC RDW Plt Count MPV Immature Gran % Neutrophils % Lymphocytes % Monocytes % Eosinophils % Basophils % Absolute Neutrophils Absolute Lymphocytes Absolute Monocytes Absolute Eosinophils Absolute Basophils Sodium Potassium Chloride Carbon Dioxide Anion Gap BUN Creatinine Estimated GFR/1.73 m2 Glucose Lactate Calcium Magnesium 2.4 Total Bilirubin AST ALT Alkaline Phosphatase Troponin I 0.14 H* NT-Pro-B Natriuret Pep Total Protein Albumin Lipase TSH Urine Color Yellow Urine Clarity Sl cloudy Urine pH 6.5 Ur Specific [place] 1.020 Urine Protein Negative Urine Ketones Negative Urine Blood Trace-intact H Urine Nitrite Positive H Urine Bilirubin Negative Urine Urobilinogen 0.2 Ur Leukocyte Esterase Trace H Urine RBC 0-2 Urine WBC 5-10 Ur Epithelial Cells Few Urine Crystals Negative Urine Bacteria Many Urine Casts Negative Urine Mucus Negative Urine Other Rare renal Ur Culture Indicated? C&s done as ordered Urine Glucose 500 H Urine Opiates Screen Urine Methadone Screen Ur Barbiturates Screen Ur Tricyclics Screen Ur Amphetamines Screen U Benzodiazepines Scrn Urine Cocaine Screen Ur THC Screen Ethyl Alcohol < 3.0 01/05/20 01/05/20 01/05/20 14:00 14:02 15:17 WBC RBC Hgb Hct MCV MCH MCHC RDW Plt Count MPV Immature Gran % Neutrophils % Lymphocytes % Monocytes % Eosinophils % Basophils % Absolute Neutrophils Absolute Lymphocytes Absolute Monocytes Absolute Eosinophils Absolute Basophils Sodium Potassium Chloride Carbon Dioxide Anion Gap BUN Creatinine Estimated GFR/1.73 m2 Glucose Lactate Cancelled 1.2 Calcium Magnesium Total Bilirubin AST ALT Alkaline Phosphatase Troponin I NT-Pro-B Natriuret Pep Total Protein Albumin Lipase TSH Urine Color Urine Clarity Urine pH Ur Specific [place] Urine Protein Urine Ketones Urine Blood Urine Nitrite Urine Bilirubin Urine Urobilinogen Ur Leukocyte Esterase Urine RBC Urine WBC Ur Epithelial Cells Urine Crystals Urine Bacteria Urine Casts Urine Mucus Urine Other Ur Culture Indicated? Urine Glucose Urine Opiates Screen Negative Urine Methadone Screen Negative Ur Barbiturates Screen Negative Ur Tricyclics Screen Negative Ur Amphetamines Screen Negative U Benzodiazepines Scrn Negative Urine Cocaine Screen Negative Ur THC Screen Negative Ethyl Alcohol 01/05/20 01/05/20 01/05/20 16:20 21:52 21:52 WBC RBC Hgb Hct MCV MCH MCHC RDW Plt Count MPV Immature Gran % Neutrophils % Lymphocytes % Monocytes % Eosinophils % Basophils % Absolute Neutrophils Absolute Lymphocytes Absolute Monocytes Absolute Eosinophils Absolute Basophils Sodium Potassium Chloride Carbon Dioxide Anion Gap BUN Creatinine Estimated GFR/1.73 m2 Glucose Lactate Calcium Magnesium Total Bilirubin AST ALT Alkaline Phosphatase Troponin I 0.14 H* 0.14 H* NT-Pro-B Natriuret Pep Total Protein Albumin Lipase TSH 0.75 Urine Color Urine Clarity Urine pH Ur Specific [place] Urine Protein Urine Ketones Urine Blood Urine Nitrite Urine Bilirubin Urine Urobilinogen Ur Leukocyte Esterase Urine RBC Urine WBC Ur Epithelial Cells Urine Crystals Urine Bacteria Urine Casts Urine Mucus Urine Other Ur Culture Indicated? Urine Glucose Urine Opiates Screen Urine Methadone Screen Ur Barbiturates Screen Ur Tricyclics Screen Ur Amphetamines Screen U Benzodiazepines Scrn Urine Cocaine Screen Ur THC Screen Ethyl Alcohol 01/06/20 01/06/20 01/06/20 06:11 06:11 06:11 WBC 10.32 RBC 4.24 Hgb 10.2 L Hct 34.8 L MCV 82.1 MCH 24.1 L MCHC 29.3 L RDW 17.1 H Plt Count 498 H MPV 9.8 Immature Gran % Neutrophils % Lymphocytes % Monocytes % Eosinophils % Basophils % Absolute Neutrophils Absolute Lymphocytes Absolute Monocytes Absolute Eosinophils Absolute Basophils Sodium 134 L Potassium 3.3 L Chloride 95 L Carbon Dioxide 32.0 Anion Gap 7.0 BUN 73 H Creatinine 2.21 H Estimated GFR/1.73 m2 22.15 Glucose 203 H D Lactate Calcium 9.4 Magnesium Total Bilirubin 0.5 AST 31 ALT 27 Alkaline Phosphatase 63 Troponin I 0.08 H* NT-Pro-B Natriuret Pep Total Protein 7.0 Albumin 3.2 L Lipase TSH Urine Color Urine Clarity Urine pH Ur Specific [place] Urine Protein Urine Ketones Urine Blood Urine Nitrite Urine Bilirubin Urine Urobilinogen Ur Leukocyte Esterase Urine RBC Urine WBC Ur Epithelial Cells Urine Crystals Urine Bacteria Urine Casts Urine Mucus Urine Other Ur Culture Indicated? Urine Glucose Urine Opiates Screen Urine Methadone Screen Ur Barbiturates Screen Ur Tricyclics Screen Ur Amphetamines Screen U Benzodiazepines Scrn Urine Cocaine Screen Ur THC Screen Ethyl Alcohol
--- NOTE | 2020-01-06 11:04 | W.PM.PROGNOT ---
Date of Service Date of service: 01/06/20 Time of Service: 11:05 Assessment and Plan Assessment and plan (1) NSTEMI (non-ST elevated myocardial infarction): Start date: 01/06/20 Start time: 11:27 Status: Acute Assessment and plan: Elevated troponin on admission 0.14 x 3 with fourth 0.08, EKG with SR no ischemia, CP relieved, consulted cardiology, he agrees patient had NSTEMI, Cardiology Evaluation This likely represents a type II non-STEMI. Given her chronic kidney disease and elevated creatinine any small leakage of troponin will be exaggerated. I do not think she needs aggressive medical therapy with anticoagulation at this point. ?Continue aspirin, atorvastatin, metoprolol ?Would consider outpatient stress test in the next few weeks . (2) CAD (coronary artery disease), [place] coronary artery: Start date: 01/06/20 Start time: 11:33 Status: Chronic Assessment and plan: CABG x 4, see above Qualifiers: [place] vs. transplanted heart: [place] heart Associated angina: without angina Qualified Code(s): I25.10 - Atherosclerotic heart disease of [place] coronary artery without angina pectoris (3) Altered mental status: Start date: 01/06/20 Start time: 11:15 Status: Resolved Assessment and plan: Resolved; likely from oxycodone use with worsening renal function, dehydration. She admits to taking one tab monday morning, one tab monday evening and one tab Monday morning, she then proceeded to flush the rest of tabs down toilet as she did not like the way it made her feel. Qualifiers: Altered mental status type: delirium Qualified Code(s): R41.0 - Disorientation, unspecified (4) UTI (urinary tract infection): Start date: 01/06/20 Start time: 11:20 Status: Acute Assessment and plan: UA with nitrates and leuko, started on rocephin IV, blood cultures negative, urine culture growing gram negative chel greater than 100, 000 colonies, she has had E. coli in urine on previous admissions. Await sensitivities. Qualifiers: Urinary tract infection type: site unspecified Hematuria presence: without hematuria Qualified Code(s): N39.0 - Urinary tract infection, site not specified (5) PAF (paroxysmal atrial fibrillation): Start date: 01/06/20 Start time: 11:34 Status: Chronic Assessment and plan: SR at this time. history of afib prior to cabg, left appendage ablated during cabbage, she has not had AFIB on admission. Not requiring anticoagulation (6) CHF (congestive heart failure): Start date: 01/06/20 Start time: 11:42 Status: Chronic Assessment and plan: She appears dry this morning. Finished IVF. Her wt is 124 kg which is dry weight. Monitor BUN and Creatinine, I would not infuse any more IVF at this time. When kidney function improves resume diuretics. She has purchased a new scale at home and endorses this is her normal wt. Qualifiers: Heart failure type: right-sided Heart failure chronicity: chronic Qualified Code(s): I50.812 - Chronic right heart failure (7) CKD stage 4 due to type 2 diabetes mellitus: Start date: 01/06/20 Start time: 11:47 Status: Chronic Assessment and plan: Renal function improving. Continue to monitor. Recommend 1.5-2L at day of fluids, she has only been ingesting 1 liter at home, cardiology agrees she can increase her fluid intake, however given that she tends to become volume overloaded very easily, recommend she slowly in creases fluid intake to and observe for signs of overload, is she starts to become overloaded she will need to decrease her fluid intake. Recommend she start at 1.25-1.5 liters. She is agreeable to plan Subjective Subjective Patient reports: feels better Interval history since last seen: Feeling better. She was tearful during interaction, it appears she has increasing depression. Over the last 6 months her health has declined. Spoke with her about community resources for depression. She is agreeable to community help. She needs someone to talk to help her through her situations. I don't feel increasing or adding medication is appropriate at this time with an NSTEMI, she would benefit from outpatient therapy. Exam Narrative Exam Narrative: General: Patient is alert and oriented x3 at the time of my exam and in no acute distress. She is morbidly obese lying comfortably in bed with her head elevated. She is able to sit up upon command without difficulty. HEENT: Normocephalic with eyes revealing pupils equal and reactive to light symmetrically, sclera anicteric and extraocular movement intact. Oropharynx with slightly dry oral mucosa. Neck: Supple without JVD. Back: Stooped posture with no CVA tenderness. Lungs: Bronchovesicular breath sounds diffusely with fair aeration and no focalizing rales or rhonchi. Upper airway clear Heart: Regular rate and rhythm with no murmurs or gallops appreciated. Abdomen: Obese contour, soft and nontender to palpation with no palpable hepatosplenomegaly. Bowel sounds positive all quadrants. Extremities: no edema to bilateral lower extremities. joints without swelling, no clubbing. Good capillary refill with peripheral pulses intact. Skin: Warm and dry with no rashes. Objective Objective Clinical Data: Abnormal lab results 01/05/20 01/05/20 01/05/20 Range/Units 13:20 13:20 13:20 WBC 12.25 H (4.4-10.8) k/cumm Hgb 11.5 L (12.0-15.5) g/dL Hct (36.0-46.0) % MCH 24.8 L (27.0-33.0) pg MCHC 30.7 L (32.0-36.0) g/dL RDW 17.4 H (11.7-14.6) % Plt Count 590 H D (130-400) x1000/uL Absolute Neutrophils 9.96 H (1.2-6.7) k/cumm Absolute Lymphocytes 1.09 L (1.2-3.4) k/cumm Absolute Monocytes 0.83 H (0.11-0.7) k/cumm Sodium (136-145) mmol/L Potassium (3.5-5.1) mmol/L Chloride 92 L (98-107) mmol/L Carbon Dioxide 35.5 H (21.0-32.0) mmol/L BUN 88 H* (7-18) mg/dL Creatinine 2.64 H (0.55-1.02) mg/dL Glucose 278 H (74-106) mg/dL Calcium 10.3 H (8.5-10.1) mg/dL Troponin I 0.14 H* (<0.06) ng/Ml NT-Pro-B Natriuret Pep 409 H (<300) pg/mL Albumin (3.4-5.0) g/dL Urine Blood (Negative) Urine Nitrite (Negative) Ur Leukocyte Esterase (Negative) Urine Glucose (Negative) mg/dL 01/05/20 01/05/20 01/05/20 Range/Units 14:00 16:20 21:52 WBC (4.4-10.8) k/cumm Hgb (12.0-15.5) g/dL Hct (36.0-46.0) % MCH (27.0-33.0) pg MCHC (32.0-36.0) g/dL RDW (11.7-14.6) % Plt Count (130-400) x1000/uL Absolute Neutrophils (1.2-6.7) k/cumm Absolute Lymphocytes (1.2-3.4) k/cumm Absolute Monocytes (0.11-0.7) k/cumm Sodium (136-145) mmol/L Potassium (3.5-5.1) mmol/L Chloride (98-107) mmol/L Carbon Dioxide (21.0-32.0) mmol/L BUN (7-18) mg/dL Creatinine (0.55-1.02) mg/dL Glucose (74-106) mg/dL Calcium (8.5-10.1) mg/dL Troponin I 0.14 H* 0.14 H* (<0.06) ng/Ml NT-Pro-B Natriuret Pep (<300) pg/mL Albumin (3.4-5.0) g/dL Urine Blood Trace-intact H (Negative) Urine Nitrite Positive H (Negative) Ur Leukocyte Esterase Trace H (Negative) Urine Glucose 500 H (Negative) mg/dL 01/06/20 01/06/20 01/06/20 Range/Units 06:11 06:11 06:11 WBC (4.4-10.8) k/cumm Hgb 10.2 L (12.0-15.5) g/dL Hct 34.8 L (36.0-46.0) % MCH 24.1 L (27.0-33.0) pg MCHC 29.3 L (32.0-36.0) g/dL RDW 17.1 H (11.7-14.6) % Plt Count 498 H (130-400) x1000/uL Absolute Neutrophils (1.2-6.7) k/cumm Absolute Lymphocytes (1.2-3.4) k/cumm Absolute Monocytes (0.11-0.7) k/cumm Sodium 134 L (136-145) mmol/L Potassium 3.3 L (3.5-5.1) mmol/L Chloride 95 L (98-107) mmol/L Carbon Dioxide (21.0-32.0) mmol/L BUN 73 H (7-18) mg/dL Creatinine 2.21 H (0.55-1.02) mg/dL Glucose 203 H D (74-106) mg/dL Calcium (8.5-10.1) mg/dL Troponin I 0.08 H* (<0.06) ng/Ml NT-Pro-B Natriuret Pep (<300) pg/mL Albumin 3.2 L (3.4-5.0) g/dL Urine Blood (Negative) Urine Nitrite (Negative) Ur Leukocyte Esterase (Negative) Urine Glucose (Negative) mg/dL Vital Signs Temperature 36.5 C 01/06/20 07:31 Temperature Source Temporal Artery Scan 01/06/20 07:31 Pulse 67 01/06/20 07:31 Pulse Rhythm Regular 01/06/20 01:00 Respiratory Rate 18 01/06/20 07:31 Respiratory Effort 01/06/20 01:00 Respiratory Depth Normal 01/06/20 01:00 Respiratory Pattern Normal 01/06/20 01:00 Blood Pressure 136/78 01/06/20 07:31 Blood Pressure Position Sitting 01/05/20 13:03 Pulse Oximetry 95 01/06/20 10:08 Oxygen Delivery Method Room Air 01/06/20 10:08 Oxygen Flow Rate 0 01/06/20 10:08 Pain Level 9 01/06/20 07:31 Intake & Output 01/05/20 01/05/20 01/06/20 11:59 23:59 11:59 Intake Total 310 / 310 300 / 300 Balance 310 / 310 300 / 300 Weight 128.4 kg 124 kg Intake: IV 310 / 310 Oral 300 / 300 Other: Urine Color Yellow Urine Appearance Clear Urine Odor Normal Comment incontinent of large amt in diaper. changed. Voiding Methods Diaper Incontinent Laboratory Results WBC 10.32 k/cumm (4.4-10.8) 01/06/20 06:11 RBC 4.24 m/cumm (4.00-5.20) 01/06/20 06:11 Hgb 10.2 g/dL (12.0-15.5) L 01/06/20 06:11 Hct 34.8 % (36.0-46.0) L 01/06/20 06:11 MCV 82.1 fL (80-95) 01/06/20 06:11 MCH 24.1 pg (27.0-33.0) L 01/06/20 06:11 MCHC 29.3 g/dL (32.0-36.0) L 01/06/20 06:11 RDW 17.1 % (11.7-14.6) H 01/06/20 06:11 Plt Count 498 x1000/uL (130-400) H 01/06/20 06:11 MPV 9.8 fL (8.0-11.0) 01/06/20 06:11 Immature Gran % 0.6 % 01/05/20 13:20 Neutrophils % 81.3 01/05/20 13:20 Lymphocytes % 8.9 01/05/20 13:20 Monocytes % 6.8 01/05/20 13:20 Eosinophils % 2.2 01/05/20 13:20 Basophils % 0.2 01/05/20 13:20 Absolute Neutrophils 9.96 k/cumm (1.2-6.7) H 01/05/20 13:20 Absolute Lymphocytes 1.09 k/cumm (1.2-3.4) L 01/05/20 13:20 Absolute Monocytes 0.83 k/cumm (0.11-0.7) H 01/05/20 13:20 Absolute Eosinophils 0.27 k/cumm (0.0-0.7) 01/05/20 13:20 Absolute Basophils 0.02 k/cumm (0.0-0.2) 01/05/20 13:20 Sodium 134 mmol/L (136-145) L 01/06/20 06:11 Potassium 3.3 mmol/L (3.5-5.1) L 01/06/20 06:11 Chloride 95 mmol/L (98-107) L 01/06/20 06:11 Carbon Dioxide 32.0 mmol/L (21.0-32.0) 01/06/20 06:11 Anion Gap 7.0 mmol/L (3-11) 01/06/20 06:11 BUN 73 mg/dL (7-18) H 01/06/20 06:11 Creatinine 2.21 mg/dL (0.55-1.02) H 01/06/20 06:11 Estimated GFR/1.73 m2 22.15 (mL/min/1.73m2) 01/06/20 06:11 Glucose 203 mg/dL (74-106) H D 01/06/20 06:11 Lactate 1.2 mmol/L (0.6-1.4) 01/05/20 15:17 Calcium 9.4 mg/dL (8.5-10.1) 01/06/20 06:11 Magnesium 2.4 mg/dL (1.8-2.4) 01/05/20 13:20 Total Bilirubin 0.5 mg/dL (0.2-1.0) 01/06/20 06:11 AST 31 U/L (15-37) 01/06/20 06:11 ALT 27 U/L (14-59) 01/06/20 06:11 Alkaline Phosphatase 63 U/L (46-116) 01/06/20 06:11 Troponin I 0.08 ng/Ml (<0.06) H* 01/06/20 06:11 NT-Pro-B Natriuret Pep 409 pg/mL (<300) H 01/05/20 13:20 Total Protein 7.0 g/dL (6.4-8.2) 01/06/20 06:11 Albumin 3.2 g/dL (3.4-5.0) L 01/06/20 06:11 Lipase 79 U/L (73-393) 01/05/20 13:20 TSH 0.75 uIU/mL (0.36-3.74) 01/05/20 21:52 Urine Color Yellow (Yellow) 01/05/20 14:00 Urine Clarity Sl cloudy (Clear) 01/05/20 14:00 Urine pH 6.5 (5-8) 01/05/20 14:00 Ur Specific [place] 1.020 (1.005-1.025) 01/05/20 14:00 Urine Protein Negative mg/dL (Negative) 01/05/20 14:00 Urine Ketones Negative mg/dL (Negative) 01/05/20 14:00 Urine Blood Trace-intact (Negative) H 01/05/20 14:00 Urine Nitrite Positive (Negative) H 01/05/20 14:00 Urine Bilirubin Negative (Negative) 01/05/20 14:00 Urine Urobilinogen 0.2 EU/dL (Up TO 0.2) 01/05/20 14:00 Ur Leukocyte Esterase Trace (Negative) H 01/05/20 14:00 Urine RBC 0-2 HPF (0-2) 01/05/20 14:00 Urine WBC 5-10 HPF (0-5) 01/05/20 14:00 Ur Epithelial Cells Few HPF (Negative) 01/05/20 14:00 Urine Crystals Negative HPF (Negative) 01/05/20 14:00 Urine Bacteria Many HPF (Negative) 01/05/20 14:00 Urine Casts Negative LPF (Negative) 01/05/20 14:00 Urine Mucus Negative (Negative) 01/05/20 14:00 Urine Other Rare renal (Negative) 01/05/20 14:00 Ur Culture Indicated? C&s done as ordered 01/05/20 14:00 Urine Glucose 500 mg/dL (Negative) H 01/05/20 14:00 Urine Opiates Screen Negative (Negative) 01/05/20 14:00 Urine Methadone Screen Negative (Negative) 01/05/20 14:00 Ur Barbiturates Screen Negative (Negative) 01/05/20 14:00 Ur Tricyclics Screen Negative (Negative) 01/05/20 14:00 Ur Amphetamines Screen Negative (Negative) 01/05/20 14:00 U Benzodiazepines Scrn Negative (Negative) 01/05/20 14:00 Urine Cocaine Screen Negative (Negative) 01/05/20 14:00 Ur THC Screen Negative (Negative) 01/05/20 14:00 Ethyl Alcohol < 3.0 mg/dL (<3) 01/05/20 13:20
[2020-01-06] MEDS: Acetaminophen 325 MG TAB 650 MG PO ×3 (11:14→21:01)
[2020-01-06 12:30] LABS: Troponin I 0.05 ng/Ml (<0.06)
[2020-01-06] MEDS: cefTRIAXone 1 GM/50 ML BAG IVPB (14:02)
--- NOTE | 2020-01-06 14:30 | W.INDIABCONS ---
Date of service: 01/06/20 Time of Service: 14:30 Diabetes Inpatient Consult DESCRIPTION/ASSESSMENT: 69 year old female admitted with AMS, UTI, NSTEMI, with CKD4, CAD, hyperglycemia. Reports long history of diabetes. BMI indicates class 2 obesity. Reviewed typical meal selections and educated on how to follow a consistent carbohydrate amount at each meal for optimal blood sugar control. Reviewed diet interventions for hypoglycemia/hyperglycemia. Encouraged follow up with PCP after discharge and to consider outpatient diabetes counseling with [facility] and [facility]. Encouraged increase in activity (20 min daily) for weight management. Following diabetic heart healthy diet with excellent intake. Has working knowledge on how to count carbohydrates and make optimal meal selections. Expect blood sugar to decrease once infection cleared (WBC elevated). Provided Carb Counting and Meal Planning and contact information. INTERVENTION: Diabetes education Referred to outpatient diabetes counseling when discharged increase activity PLAN: Decrease simple carbohydrates in diet, check blood sugars multiple tiimes daily, increase activity to 20 min daily at minimum and follow up with PCP after discharge Time Spent in Nutritional Counseling and Treatment: 15 min spent face to face
[2020-01-06 17:36] LABS: *AMPHETAMINES SCREEN URINE Negative (Negative); *BARBITURATES SCREEN URINE Negative (Negative); *BENZODIAZEPINES SCREEN URINE Negative (Negative); Cannabinoids THC Negative (Negative); Cocaine Screen,Urine Negative (Negative); METHADONE URINE SCREEN Negative (Negative); OPIATES URINE SCREEN Negative (Negative)
[2020-01-06 17:38] LABS: Tricyclic Antidepressants Negative (Negative)
[2020-01-06] MEDS: traMADol 50 MG TAB PO (18:14)
[2020-01-06] MEDS: rOPINIRole 0.5 MG TAB 2 MG PO (21:01)
[2020-01-06] MEDS: Atorvastatin 40 MG TAB PO (21:02)
[2020-01-07] VITALS (11 sets, daily range): BP systolic 104–130; BP diastolic 62–81; PULSE 56–67; RESP 16–22; TEMP 36–37; O2SAT 93–99
[2020-01-07] MEDS: Heparin 5,000 UNITS/ML VIAL 5000 UNITS SC ×3 (05:40→21:06)
[2020-01-07 06:50] LABS: Abs Immature Grans 0.08 k/cumm (0.0-0.09); Absolute Basophil Count 0.06 k/cumm (0.0-0.2); Absolute Eosinophil Count 0.63 k/cumm (0.0-0.7); Absolute Lymphocyte Count 2.26 k/cumm (1.2-3.4); Absolute Monocyte Count 0.94 k/cumm (0.11-0.7); Absolute Neutrophil Count 5.99 k/cumm (1.2-6.7); Basophils % 0.6; Eosinophils % 6.3; HCT 35.4 % (36.0-46.0); HGB 10.5 g/dL (12.0-15.5); Immature Grans % 0.8 %; Lymphocytes % 22.7; Mean Corp. HGB Concentration 29.7 g/dL (32.0-36.0); Mean Corpuscular Hemoglobin 24.3 pg (27.0-33.0); Mean Corpuscular Volume 81.9 fL (80-95); Mean Platelet Volume 9.6 fL (8.0-11.0); Monocytes % 9.4; Neutrophils % 60.2; Platelet Count 484 x1000/uL (130-400); RBC 4.32 m/cumm (4.00-5.20); RBC Distribution Width 16.9 % (11.7-14.6); White Blood Cell Count 9.96 k/cumm (4.4-10.8)
[2020-01-07 07:14] LABS: Anion Gap 6.5 mmol/L (3-11); CO2 31.5 mmol/L (21.0-32.0); CREATININE 2.66 mg/dL (0.55-1.02); Calcium 9.6 mg/dL (8.5-10.1); Chloride 97 mmol/L (98-107); Estimated GFR 17.88 (mL/min/1.73m2); Glucose 205 mg/dL (74-106); Sodium 135 mmol/L (136-145)
[2020-01-07 07:17] LABS: BUN 85 mg/dL (7-18)
--- NOTE | 2020-01-07 08:14 | NUR.NOTE ---
Nursing Note: 0740: called into pt room to assist Nick ESCOTO. pt sitting on commode upon arrival to room. pt very lethargic, rouses to voice, alert/oriented x 1-2 at this time. pt knows she is off. pupils 4mm, pt head drops frequently to chest, pt able to find words for conversation. pt states i'm so tired, i'm so thirsty. plan for pt to go to chair for breakfast changed with pt presentation. pt able to stand and follow directions with 2 assist. pt able to hold on to walker. pt in bed with assist. moving extremities equally. pt currently on 02 via RI. VSS. FS taken; WNL for pt at this time. please see worklist for details of VS and FS. pt alarms on at this time. CC Sia Jenkins RN notified of pt condition. continue to monitor.
[2020-01-07] MEDS: Ondansetron 4 MG/2 ML VIAL IVP (08:47)
[2020-01-07] MEDS: Normal Saline Flush 10 ML SYR IVP ×2 (08:47→14:09)
--- NOTE | 2020-01-07 09:15 | NUR.NOTE ---
Nursing Note: 0900: RN in to room per request from CC Sia Jenkins RN. pt noted to have difficulty finding words; pt states I really have to think about what I want to say. pt noted to have difficulty holding/grasping with R hand. pt has visible tremors in RUE at this time. pt states she has a headache that started last night and began on the left side, behind her ear and has now wrapped up around the back of her neck with intermittent movement of pain from the front of her head to the top/back of her head. pt states headache pain is 9/10 at this time. pt holding head with left hand; arm noted to move in a back and forth motion, somewhat tremor like. pt states the light is hurting her eyes; shade shut with good relief. pt states her eyes are watering. pupils have decreased in size (prior to closing shade) to approximately 3 mm. when nursing questions pt about her situation, pt states that these episodes have been occurring for approximately one month after the addition of a new medication but she cannot remember which one. pt states she reported these episodes to her nurse a few weeks ago. pt was given Zofran IVP with good relief of her nausea. pt resting at time of RN exiting room. RN to relay information to CC at this time. continue to monitor. pt telemetry shows pt in sinus geraldine at this time.
--- NOTE | 2020-01-07 09:20 | W.PM.PROGNOT ---
Date of Service Date of service: 01/07/20 Time of Service: 09:20 Assessment and Plan Assessment and plan (1) NSTEMI (non-ST elevated myocardial infarction): Status: Acute Assessment and plan: previously Elevated troponin on admission 0.14 x 3 with fourth 0.08, EKG with SR no ischemia, CP relieved, consulted cardiology, he agrees patient had NSTEMI, patient now with vague symptoms of fatigue, nausea, will get stat EKG, troponin, and repeat in 6 hours. Cardiology Evaluation This likely represents a type II non-STEMI. Given her chronic kidney disease and elevated creatinine any small leakage of troponin will be exaggerated. I do not think she needs aggressive medical therapy with anticoagulation at this point. ?Continue aspirin, atorvastatin, metoprolol ?Would consider outpatient stress test in the next few weeks . (2) CAD (coronary artery disease), [place] coronary artery: Status: Chronic Assessment and plan: s/p CABG, see note above, will continue asa, statin, beta kelly. hold for heart rate less than 60 Qualifiers: Associated angina: without angina [place] vs. transplanted heart: [place] heart Qualified Code(s): I25.10 - Atherosclerotic heart disease of [place] coronary artery without angina pectoris (3) CKD stage 4 due to type 2 diabetes mellitus: Status: Chronic Assessment and plan: avoid nephrotoxic drugs. Recommend 1.5-2L at day of fluids, she has only been ingesting 1 liter at home, cardiology agrees she can increase her fluid intake, however given that she tends to become volume overloaded very easily, recommend she slowly in creases fluid intake to and observe for signs of overload, is she starts to become overloaded she will need to decrease her fluid intake. Recommend she start at 1.25-1.5 liters. She is agreeable to plan (4) Altered mental status: Status: Resolved Qualifiers: Altered mental status type: delirium Qualified Code(s): R41.0 - Disorientation, unspecified (5) UTI (urinary tract infection): Status: Acute Assessment and plan: urine culture grew citrobacter amalonaticus which is sensitive to ceftriaxone day 2. Qualifiers: Hematuria presence: without hematuria Urinary tract infection type: site unspecified Qualified Code(s): N39.0 - Urinary tract infection, site not specified (6) PAF (paroxysmal atrial fibrillation): Status: Chronic Assessment and plan: SR at this time. history of afib prior to cabg, left appendage ablated during cabbage, she has not had AFIB on admission. Not requiring anticoagulation (7) CHF (congestive heart failure): Status: Chronic Assessment and plan: Her wt is 124.7 kg. Monitor BUN and Creatinine, continue to monitor. When kidney function improves resume diuretics. She has purchased a new scale at home and endorses this is her normal wt. Qualifiers: Heart failure chronicity: chronic Heart failure type: right-sided Qualified Code(s): I50.812 - Chronic right heart failure (8) DVT (deep venous thrombosis): Status: Chronic Assessment and plan: heparin in setting of CKD. Subjective Subjective Patient reports: nausea Interval history since last seen: patient with dizziness overnight today feeling fatigued, nauseated and with some confusion. did receive tramadol last evening. denies chest pain or shortness of breath. Exam Const General: cooperative, disheveled, frail appearing, ill appearing chronically and lethargic (intermittently) Nutritional Appearance: obese Orientation: alert, awake and oriented x3 HENMT Head: normal to inspection, normocephalic and atraumatic Mouth: oral mucosae normal Resp Effort & Inspection: normal respiratory effort Auscultation: clear to auscultation bilaterally Cardio Rate: regular rate Rhythm: regular rhythm GI Inspection: normal to inspection Palpation: soft Auscultation: normal bowel sounds Neuro General: patient alert, patient awake and patient confused Cranial Nerves: CN's II-XI intact bilaterally Cognition: abnormal cognition Speech: speech normal Extrem General: normal to inspection, full ROM and edema Laterality: bilateral Objective Objective Clinical Data: Abnormal lab results 01/07/20 01/07/20 Range/Units 06:08 06:08 Hgb 10.5 L (12.0-15.5) g/dL Hct 35.4 L (36.0-46.0) % MCH 24.3 L (27.0-33.0) pg MCHC 29.7 L (32.0-36.0) g/dL RDW 16.9 H (11.7-14.6) % Plt Count 484 H (130-400) x1000/uL Absolute Monocytes 0.94 H (0.11-0.7) k/cumm Sodium 135 L (136-145) mmol/L Chloride 97 L (98-107) mmol/L BUN 85 H* (7-18) mg/dL Creatinine 2.66 H (0.55-1.02) mg/dL Glucose 205 H (74-106) mg/dL Vital Signs Temperature 36 C L 01/07/20 08:30 Temperature Source Tympanic 01/07/20 08:30 Pulse 56 L 01/07/20 08:30 Pulse Rhythm Regular 01/07/20 01:28 Respiratory Rate 16 01/07/20 08:30 Respiratory Effort Non-Labored 01/07/20 01:28 Respiratory Depth Normal 01/07/20 01:28 Respiratory Pattern Normal 01/07/20 01:28 Blood Pressure 108/69 01/07/20 08:30 Blood Pressure Position Sitting 01/05/20 13:03 Pulse Oximetry 98 01/07/20 08:30 Oxygen Delivery Method Nasal Cannula 01/07/20 08:30 Oxygen Flow Rate 2 01/07/20 08:30 Pain Level 0 01/07/20 08:47 Intake & Output 01/06/20 01/06/20 01/07/20 11:59 23:59 11:59 Intake Total 300 / 2190 1890 / 2190 Output Total 500 / 500 450 / 450 Balance -200 / 1690 1890 / 1690 -450 / -450 Weight 124 kg 124.7 kg Intake: IV 1050 / 1050 Oral 300 / 1140 840 / 1140 Output: Urine 500 / 500 450 / 450 Other: Urine Color Yellow Yellow Yellow Urine Appearance Clear Clear Clear Urine Odor Normal Comment incontinent of large amt in diaper. changed. Voiding Methods Bedside Commode Bedside Commode Incontinent Laboratory Results WBC 9.96 k/cumm (4.4-10.8) 01/07/20 06:08 RBC 4.32 m/cumm (4.00-5.20) 01/07/20 06:08 Hgb 10.5 g/dL (12.0-15.5) L 01/07/20 06:08 Hct 35.4 % (36.0-46.0) L 01/07/20 06:08 MCV 81.9 fL (80-95) 01/07/20 06:08 MCH 24.3 pg (27.0-33.0) L 01/07/20 06:08 MCHC 29.7 g/dL (32.0-36.0) L 01/07/20 06:08 RDW 16.9 % (11.7-14.6) H 01/07/20 06:08 Plt Count 484 x1000/uL (130-400) H 01/07/20 06:08 MPV 9.6 fL (8.0-11.0) 01/07/20 06:08 Immature Gran % 0.8 % 01/07/20 06:08 Neutrophils % 60.2 01/07/20 06:08 Lymphocytes % 22.7 01/07/20 06:08 Monocytes % 9.4 01/07/20 06:08 Eosinophils % 6.3 01/07/20 06:08 Basophils % 0.6 01/07/20 06:08 Absolute Neutrophils 5.99 k/cumm (1.2-6.7) 01/07/20 06:08 Absolute Lymphocytes 2.26 k/cumm (1.2-3.4) 01/07/20 06:08 Absolute Monocytes 0.94 k/cumm (0.11-0.7) H 01/07/20 06:08 Absolute Eosinophils 0.63 k/cumm (0.0-0.7) 01/07/20 06:08 Absolute Basophils 0.06 k/cumm (0.0-0.2) 01/07/20 06:08 Sodium 135 mmol/L (136-145) L 01/07/20 06:08 Potassium 4.0 mmol/L (3.5-5.1) D 01/07/20 06:08 Chloride 97 mmol/L (98-107) L 01/07/20 06:08 Carbon Dioxide 31.5 mmol/L (21.0-32.0) 01/07/20 06:08 Anion Gap 6.5 mmol/L (3-11) 01/07/20 06:08 BUN 85 mg/dL (7-18) H* 01/07/20 06:08 Creatinine 2.66 mg/dL (0.55-1.02) H 01/07/20 06:08 Estimated GFR/1.73 m2 17.88 (mL/min/1.73m2) 01/07/20 06:08 Glucose 205 mg/dL (74-106) H 01/07/20 06:08 Lactate 1.2 mmol/L (0.6-1.4) 01/05/20 15:17 Calcium 9.6 mg/dL (8.5-10.1) 01/07/20 06:08 Magnesium 2.0 mg/dL (1.8-2.4) 01/07/20 06:08 Total Bilirubin 0.5 mg/dL (0.2-1.0) 01/06/20 06:11 AST 31 U/L (15-37) 01/06/20 06:11 ALT 27 U/L (14-59) 01/06/20 06:11 Alkaline Phosphatase 63 U/L (46-116) 01/06/20 06:11 Troponin I 0.05 ng/Ml (<0.06) 01/06/20 11:50 NT-Pro-B Natriuret Pep 409 pg/mL (<300) H 01/05/20 13:20 Total Protein 7.0 g/dL (6.4-8.2) 01/06/20 06:11 Albumin 3.2 g/dL (3.4-5.0) L 01/06/20 06:11 Lipase 79 U/L (73-393) 01/05/20 13:20 TSH 0.75 uIU/mL (0.36-3.74) 01/05/20 21:52 Urine Color Yellow (Yellow) 01/05/20 14:00 Urine Clarity Sl cloudy (Clear) 01/05/20 14:00 Urine pH 6.5 (5-8) 01/05/20 14:00 Ur Specific [place] 1.020 (1.005-1.025) 01/05/20 14:00 Urine Protein Negative mg/dL (Negative) 01/05/20 14:00 Urine Ketones Negative mg/dL (Negative) 01/05/20 14:00 Urine Blood Trace-intact (Negative) H 01/05/20 14:00 Urine Nitrite Positive (Negative) H 01/05/20 14:00 Urine Bilirubin Negative (Negative) 01/05/20 14:00 Urine Urobilinogen 0.2 EU/dL (Up TO 0.2) 01/05/20 14:00 Ur Leukocyte Esterase Trace (Negative) H 01/05/20 14:00 Urine RBC 0-2 HPF (0-2) 01/05/20 14:00 Urine WBC 5-10 HPF (0-5) 01/05/20 14:00 Ur Epithelial Cells Few HPF (Negative) 01/05/20 14:00 Urine Crystals Negative HPF (Negative) 01/05/20 14:00 Urine Bacteria Many HPF (Negative) 01/05/20 14:00 Urine Casts Negative LPF (Negative) 01/05/20 14:00 Urine Mucus Negative (Negative) 01/05/20 14:00 Urine Other Rare renal (Negative) 01/05/20 14:00 Ur Culture Indicated? C&s done as ordered 01/05/20 14:00 Urine Glucose 500 mg/dL (Negative) H 01/05/20 14:00 Urine Opiates Screen Negative (Negative) 01/06/20 16:40 Urine Methadone Screen Negative (Negative) 01/06/20 16:40 Ur Barbiturates Screen Negative (Negative) 01/06/20 16:40 Ur Tricyclics Screen Negative (Negative) 01/06/20 16:40 Ur Amphetamines Screen Negative (Negative) 01/06/20 16:40 U Benzodiazepines Scrn Negative (Negative) 01/06/20 16:40 Urine Cocaine Screen Negative (Negative) 01/06/20 16:40 Ur THC Screen Negative (Negative) 01/06/20 16:40 Ethyl Alcohol < 3.0 mg/dL (<3) 01/05/20 13:20
[2020-01-07 09:30] LABS: Ammonia < 10 umol/L (11-32)
[2020-01-07 09:34] LABS: Troponin I < 0.05 ng/Ml (<0.06)
[2020-01-07] MEDS: Potassium Chloride 20 MEQ TABCR PO (10:00)
[2020-01-07] MEDS: Omeprazole 20 MG CAPCR 40 MG PO ×2 (10:00→20:37)
[2020-01-07] MEDS: Torsemide 100 MG TAB PO (10:01)
[2020-01-07] MEDS: Spironolactone 50 MG TAB PO (10:01)
[2020-01-07] MEDS: Folic Acid 1 MG TAB PO (10:01)
[2020-01-07] MEDS: Allopurinol 100 MG TAB PO (10:01)
[2020-01-07] MEDS: DULoxetine 30 MG CAP 60 MG PO (10:01)
[2020-01-07] MEDS: Baclofen 10 MG TAB PO ×3 (10:01→20:36)
[2020-01-07] MEDS: Calcium Carbonate 1.25 GM TAB 0.625 GM PO (10:02)
[2020-01-07] MEDS: Aspirin E.C. 81 MG TABEC PO (10:02)
[2020-01-07] MEDS: Magnesium Chloride 64 MG TABCR PO ×2 (10:03→20:37)
[2020-01-07] MEDS: Insulin Aspart 300 UNITS/3 ML PEN SC ×4 (10:24→20:55)
[2020-01-07] MEDS: Budesonide/Formoterol 160/4.5 6 GM 60 PUFF INH IH ×2 (10:26→20:37)
[2020-01-07 10:33] LABS: COVID-19 RT-PCR UVMMC Result Negative (Negative)
[2020-01-07] MEDS: Gabapentin 100 MG CAP 200 MG PO ×3 (10:45→20:36)
[2020-01-07] MEDS: dilTIAZem CD 120 MG CAPCR 240 MG PO (10:45)
[2020-01-07] MEDS: Metoprolol 25 MG TAB PO ×2 (10:46→20:37)
--- NOTE | 2020-01-07 13:36 | CMPROGNOTE_ITS ---
- If Service Date Differs Date of service: 01/07/20 Time of Service: 13:36 Care Management Progress Note S/O: Ann-Marie is sitting in a chair watching television when CM meets with her today. She is pleasant and talkative and recounts the events that led to her being readmitted to the hospital. She reports she is having difficulty buying her insulin because the co-pay is so high. A review of her chart reveals she has both Medicare and Medicaid. CM contacts Ann-Marie's pharmacy and is advised her Medicaid only covers catastrophic illnesses and won't pay the co-pays for the insulin. A telephone call to [facility] reveals Ann-Marie has traditional Medicaid and it should cover the cost of her insulin. Question if the insulin may require pre-authorization. CM discusses therapy with Ann-Marie, as the med/surg provider reported yesterday that Ann-Marie would benefit from counseling. Ann-Marie reports she saw a therapist many years ago and more recently saw the clinical social worker at her PCP's office. She advises she would like to think about it, as she is not sure she wants to re-enroll in therapy at this time. CM will continue to follow. A: Ann-Marie is a 69 year old female admitted to [facility] on 01/05/2020 for altered mental status, UTI, and CAD. 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 She will be driven home by her daughter, Elli, via private vehicle. CM will continue to support patient and discharge planning needs.
[2020-01-07 13:50] LABS: Troponin I < 0.05 ng/Ml (<0.06)
--- NOTE | 2020-01-07 14:08 | PHA.REVIEW ---
Pharmacy Admission Review - Admission Clinical Review (Last Reviewed 01/06/20 @ 10:18 by Kiran Mas MD) NSTEMI (non-ST elevated myocardial infarction) (Acute) UTI (urinary tract infection) (Acute) venom-honey bee Allergy (Severe, Verified 01/05/20 13:17) ANAPHYLAXIS adhesive Allergy (Verified 01/05/20 13:17) BLISTERS Height 5 ft 10.87 in Weight 124.7 kg - Renal Dosing Renal Dosing: BUN 85 mg/dL (7-18) H* 01/07/20 06:08 Creatinine 2.66 mg/dL (0.55-1.02) H 01/07/20 06:08 Medications needing adjustments: Intervened (CRCL ~22ML/MIN) List of meds needing interventions: gabapentin dose adjusted, - Anticoagulation Anticoagulation: Hgb 10.5 g/dL (12.0-15.5) L 01/07/20 06:08 Hct 35.4 % (36.0-46.0) L 01/07/20 06:08 Plt Count 484 x1000/uL (130-400) H 01/07/20 06:08 Creatinine 2.66 mg/dL (0.55-1.02) H 01/07/20 06:08 DVT Prohphylaxis: Reviewed Medications: Heparin Therapeutic Anticoagulation: N/A - Relevant Labs Sodium 135 mmol/L (136-145) L 01/07/20 06:08 Potassium 4.0 mmol/L (3.5-5.1) D 01/07/20 06:08 Chloride 97 mmol/L (98-107) L 01/07/20 06:08 Magnesium 2.0 mg/dL (1.8-2.4) 01/07/20 06:08 Electrolytes, C-Reactive P, ESR: Reviewed - DM Control DM Control: Glucose 205 mg/dL (74-106) H 01/07/20 06:08 Finger Stick Blood Glucose 297 Finger Stick Blood Glucose 297 Finger Stick Blood Glucose 230 Finger Stick Blood Glucose 230 Insulin Dosing: Reviewed (insulin aspart SS) - Heart Failure/OK Heart Failure/OK: Troponin I < 0.05 ng/Ml (<0.06) 01/07/20 13:20 NT-Pro-B Natriuret Pep 409 pg/mL (<300) H 01/05/20 13:20 EF%, MARTIR's, B-Blockers, Diuretics: Reviewed (diltiazem, metoprolol, torsemide, spironolactone) - BP Control BP Control: Blood Pressure 114/71 Blood Pressure 125/67 Blood Pressure 104/65 Blood Pressure 108/69 Blood Pressure 117/75 Blood Pressure 130/81 If elevated: N/A - Qtc Review If Elevated: Reviewed (430) - IV to PO Switch IV Medications: Reviewed (IV ceftriaxone) - Home Meds Home Med List reviewed: Reviewed Relevent Home Meds Not ordered & why?: oxycodone(pt stopped on her own). sitagliptan, basaglar insulin(on aspart insulin SS only. meclizine and various vitamins - Current meds Current Medication Order Review: Reviewed (tramadol stopped today due to pt nauseous and not feeling like herself this AM per morning meeting)
[2020-01-07] MEDS: cefTRIAXone 1 GM/50 ML BAG IVPB (14:10)
--- NOTE | 2020-01-07 14:58 | CHAPLAIN ---
Ann-Marie and I know each other from her previous admissions.She told me she had a difficult morning, was feeling nauseated and confused, with double vision. 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 She was having toast to settle her stomach. Her daughter, who provides care for Ann-Marie, called earlier and is checking in by phone. As we were talking, she said she began to have more difficulty breathing, and asked me to let her nurse know she needed oxygen.
[2020-01-07] MEDS: Atorvastatin 40 MG TAB PO (20:36)
[2020-01-07] MEDS: rOPINIRole 0.5 MG TAB 2 MG PO (20:37)
[2020-01-08 02:53] VITALS: BP 106/58; PULSE 58; RESP 20; TEMP 36.6; O2SAT 95
[2020-01-08] MEDS: Heparin 5,000 UNITS/ML VIAL 5000 UNITS SC ×3 (05:54→21:23)
[2020-01-08 06:51] LABS: HCT 37.5 % (36.0-46.0); HGB 11.2 g/dL (12.0-15.5); Mean Corp. HGB Concentration 29.9 g/dL (32.0-36.0); Mean Corpuscular Hemoglobin 24.5 pg (27.0-33.0); Mean Corpuscular Volume 82.1 fL (80-95); Mean Platelet Volume 10.1 fL (8.0-11.0); Platelet Count 486 x1000/uL (130-400); RBC 4.57 m/cumm (4.00-5.20); RBC Distribution Width 17.1 % (11.7-14.6); White Blood Cell Count 13.01 k/cumm (4.4-10.8)
[2020-01-08 08:03] VITALS: BP 129/79; PULSE 59; RESP 17; TEMP 36.6; O2SAT 93
[2020-01-08] MEDS: Insulin Aspart 300 UNITS/3 ML PEN SC ×4 (09:01→21:21)
[2020-01-08] MEDS: Omeprazole 20 MG CAPCR 40 MG PO ×2 (09:02→20:05)
[2020-01-08] MEDS: Calcium Carbonate 1.25 GM TAB 0.625 GM PO (09:02)
[2020-01-08] MEDS: Folic Acid 1 MG TAB PO (09:03)
[2020-01-08] MEDS: Allopurinol 100 MG TAB PO (09:03)
[2020-01-08] MEDS: Spironolactone 50 MG TAB PO (09:03)
[2020-01-08] MEDS: Torsemide 100 MG TAB PO (09:03)
[2020-01-08] MEDS: DULoxetine 30 MG CAP 60 MG PO (09:03)
[2020-01-08] MEDS: Gabapentin 100 MG CAP 200 MG PO (09:03)
[2020-01-08] MEDS: Potassium Chloride 20 MEQ TABCR PO (09:03)
[2020-01-08] MEDS: Aspirin E.C. 81 MG TABEC PO (09:03)
[2020-01-08] MEDS: Magnesium Chloride 64 MG TABCR PO ×2 (09:03→20:05)
[2020-01-08] MEDS: Baclofen 10 MG TAB PO ×3 (09:04→20:05)
[2020-01-08 09:58] LABS: Abs Immature Grans 0.12 k/cumm (0.0-0.09); Absolute Basophil Count 0.07 k/cumm (0.0-0.2); Absolute Eosinophil Count 0.74 k/cumm (0.0-0.7); Absolute Lymphocyte Count 2.27 k/cumm (1.2-3.4); Basophils % 0.5; Eosinophils % 5.1; HGB 12.4 g/dL (12.0-15.5); Immature Grans % 0.8 %; Lymphocytes % 15.6; Mean Corp. HGB Concentration 30.2 g/dL (32.0-36.0); Mean Corpuscular Hemoglobin 24.8 pg (27.0-33.0); Mean Platelet Volume 9.7 fL (8.0-11.0); Monocytes % 6.7; Neutrophils % 71.3; Platelet Count 570 x1000/uL (130-400); RBC Distribution Width 17.1 % (11.7-14.6); White Blood Cell Count 14.54 k/cumm (4.4-10.8)
[2020-01-08 09:59] LABS: Absolute Monocyte Count 0.97 k/cumm (0.11-0.7); Absolute Neutrophil Count 10.37 k/cumm (1.2-6.7)
[2020-01-08] MEDS: dilTIAZem CD 120 MG CAPCR 240 MG PO (10:01)
[2020-01-08] MEDS: Metoprolol 25 MG TAB PO ×2 (10:01→20:06)
[2020-01-08] MEDS: Budesonide/Formoterol 160/4.5 6 GM 60 PUFF INH IH ×2 (10:05→20:04)
[2020-01-08 10:11] LABS: Anion Gap 7.6 mmol/L (3-11); CO2 31.4 mmol/L (21.0-32.0); CREATININE 2.84 mg/dL (0.55-1.02); Chloride 94 mmol/L (98-107); Estimated GFR 16.58 (mL/min/1.73m2); Glucose 268 mg/dL (74-106); Potassium 4.6 mmol/L (3.5-5.1); Sodium 133 mmol/L (136-145)
[2020-01-08 10:12] LABS: BUN 89 mg/dL (7-18)
[2020-01-08 10:21] LABS: BE 7.5 mmol/L (-3-3); HCO3 31 mmol/L (22-28); pCO2 44 mmHg (34-47); pH 7.46 (7.35-7.45); pO2 63 mmHg (83-108); sO2 91 % (94-98); tCO2 28 mmol/L (22-29)
[2020-01-08 10:23] LABS: FIO2 21 %; Site Left Radial
--- NOTE | 2020-01-08 10:24 | PGE_ITS ---
Date of Service Date of service: 01/08/20 Time of Service: 10:24 Assessment and Plan Assessment and plan (1) UTI (urinary tract infection): Status: Acute Assessment and plan: urine culture grew citrobacter amalonaticus which is sensitive to ceftriaxone day 2. Qualifiers: Hematuria presence: without hematuria Urinary tract infection type: site unspecified Qualified Code(s): N39.0 - Urinary tract infection, site not specified (2) Gsvdm-hd-cikxshi kidney injury: Status: Acute Assessment and plan: will place diuretics on hold, give IV fluids, hold nephrotoxic drugs, renal dosing on medications. following kidney functions closely (3) Altered mental status: Status: Resolved Assessment and plan: likely multifactorial, with infection, dehydration, and acute hospitalization in geriatric patient. will continue treatment and safety precaution, consider neurology consult if not improving. Qualifiers: Altered mental status type: delirium Qualified Code(s): R41.0 - Disorientation, unspecified (4) CAD (coronary artery disease), [place] coronary artery: Status: Chronic Assessment and plan: Elevated troponin on admission 0.14 x 3 with fourth 0.08, EKG with SR no ischemia, CP relieved, consulted cardiology, he agrees patient had NSTEMI, patient now with vague symptoms of fatigue, nausea, will get stat EKG, troponin, and repeat in 6 hours remained negative. Cardiology Evaluation This likely represents a type II non-STEMI. Given her chronic kidney disease and elevated creatinine any small leakage of troponin will be exaggerated. I do not think she needs aggressive medical therapy with anticoagulation at this point. ?Continue aspirin, atorvastatin, metoprolol ?Would consider outpatient stress test in the next few weeks Qualifiers: Associated angina: without angina [place] vs. transplanted heart: [place] heart Qualified Code(s): I25.10 - Atherosclerotic heart disease of [place] coronary artery without angina pectoris (5) Diabetes mellitus: Status: Chronic Assessment and plan: blood sugars poorly controlled off home insulin. will add lantus back now eating. at home 35 units will start at 20 units tonight. 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 Subjective Subjective Interval history since last seen: no fevers, hemodynamically stable but remains confused and intermittently lethargic. poor po intake. no respiratory distress, blood cultures negative to date Exam Const General: cooperative, disheveled, frail appearing, ill appearing chronically and lethargic (intermittently) Nutritional Appearance: obese Orientation: alert, awake and oriented x3 HENMT Head: normal to inspection, normocephalic and atraumatic Mouth: oral mucosae normal Resp Effort & Inspection: normal respiratory effort Auscultation: clear to auscultation bilaterally Cardio Rate: regular rate Rhythm: regular rhythm GI Inspection: normal to inspection Palpation: soft Auscultation: normal bowel sounds Neuro General: patient alert, patient awake and patient confused Cranial Nerves: CN's II-XI intact bilaterally Cognition: abnormal cognition Speech: speech normal Extrem General: normal to inspection, full ROM and edema Laterality: bilateral Objective Objective Clinical Data: Abnormal lab results 01/08/20 01/08/20 01/08/20 Range/Units 06:05 09:50 09:50 WBC 13.01 H D 14.54 H (4.4-10.8) k/cumm Hgb 11.2 L (12.0-15.5) g/dL MCH 24.5 L 24.8 L (27.0-33.0) pg MCHC 29.9 L 30.2 L (32.0-36.0) g/dL RDW 17.1 H 17.1 H (11.7-14.6) % Plt Count 486 H 570 H (130-400) x1000/uL Absolute Neutrophils 10.37 H (1.2-6.7) k/cumm Absolute Monocytes 0.97 H (0.11-0.7) k/cumm Absolute Eosinophils 0.74 H (0.0-0.7) k/cumm ABG pH (7.35-7.45) ABG pO2 (83-108) mmHg ABG HCO3 (22-28) mmol/L ABG O2 Saturation (94-98) % ABG Base Excess (-3-3) mmol/L Sodium 133 L (136-145) mmol/L Chloride 94 L (98-107) mmol/L BUN 89 H* (7-18) mg/dL Creatinine 2.84 H (0.55-1.02) mg/dL Glucose 268 H (74-106) mg/dL 01/08/20 Range/Units 10:18 WBC (4.4-10.8) k/cumm Hgb (12.0-15.5) g/dL MCH (27.0-33.0) pg MCHC (32.0-36.0) g/dL RDW (11.7-14.6) % Plt Count (130-400) x1000/uL Absolute Neutrophils (1.2-6.7) k/cumm Absolute Monocytes (0.11-0.7) k/cumm Absolute Eosinophils (0.0-0.7) k/cumm ABG pH 7.46 H (7.35-7.45) ABG pO2 63 L (83-108) mmHg ABG HCO3 31 H (22-28) mmol/L ABG O2 Saturation 91 L (94-98) % ABG Base Excess 7.5 H (-3-3) mmol/L Sodium (136-145) mmol/L Chloride (98-107) mmol/L BUN (7-18) mg/dL Creatinine (0.55-1.02) mg/dL Glucose (74-106) mg/dL Vital Signs Temperature 36.6 C 01/08/20 08:03 Temperature Source Temporal Artery Scan 01/08/20 08:03 Pulse 59 L 01/08/20 08:03 Pulse Rhythm Regular 01/08/20 02:53 Respiratory Rate 17 01/08/20 08:03 Respiratory Effort Non-Labored 01/08/20 02:53 Respiratory Depth Normal 01/08/20 02:53 Respiratory Pattern Normal 01/08/20 02:53 Blood Pressure 129/79 01/08/20 08:03 Blood Pressure Position Sitting 01/05/20 13:03 Pulse Oximetry 93 L 01/08/20 08:03 Oxygen Delivery Method Nasal Cannula 01/08/20 08:03 Oxygen Flow Rate 1 01/08/20 08:03 Pain Level 0 01/08/20 08:03 Intake & Output 01/07/20 01/07/20 01/08/20 11:59 23:59 11:59 Intake Total 120 / 750 630 / 750 Output Total 450 / 450 Balance -330 / 300 630 / 300 Weight 124.7 kg 123.7 kg Intake: IV 50 / 50 Oral 120 / 700 580 / 700 Output: Urine 450 / 450 Other: Urine Color Yellow Yellow Yellow Urine Appearance Clear Cloudy Cloudy Urine Odor Normal Normal Comment soaked brief soaked brief Voiding Methods Bedside Commode Incontinent Incontinent Incontinent Laboratory Results WBC 14.54 k/cumm (4.4-10.8) H 01/08/20 09:50 RBC 5.00 m/cumm (4.00-5.20) 01/08/20 09:50 Hgb 12.4 g/dL (12.0-15.5) 01/08/20 09:50 Hct 41.0 % (36.0-46.0) 01/08/20 09:50 MCV 82.0 fL (80-95) 01/08/20 09:50 MCH 24.8 pg (27.0-33.0) L 01/08/20 09:50 MCHC 30.2 g/dL (32.0-36.0) L 01/08/20 09:50 RDW 17.1 % (11.7-14.6) H 01/08/20 09:50 Plt Count 570 x1000/uL (130-400) H 01/08/20 09:50 MPV 9.7 fL (8.0-11.0) 01/08/20 09:50 Immature Gran % 0.8 % 01/08/20 09:50 Neutrophils % 71.3 01/08/20 09:50 Lymphocytes % 15.6 01/08/20 09:50 Monocytes % 6.7 01/08/20 09:50 Eosinophils % 5.1 01/08/20 09:50 Basophils % 0.5 01/08/20 09:50 Absolute Neutrophils 10.37 k/cumm (1.2-6.7) H 01/08/20 09:50 Absolute Lymphocytes 2.27 k/cumm (1.2-3.4) 01/08/20 09:50 Absolute Monocytes 0.97 k/cumm (0.11-0.7) H 01/08/20 09:50 Absolute Eosinophils 0.74 k/cumm (0.0-0.7) H 01/08/20 09:50 Absolute Basophils 0.07 k/cumm (0.0-0.2) 01/08/20 09:50 ABG Sample Site Left radial 01/08/20 10:18 ABG pH 7.46 (7.35-7.45) H 01/08/20 10:18 ABG pCO2 44 mmHg (34-47) 01/08/20 10:18 ABG pO2 63 mmHg (83-108) L 01/08/20 10:18 ABG HCO3 31 mmol/L (22-28) H 01/08/20 10:18 ABG Total CO2 28 mmol/L (22-29) 01/08/20 10:18 ABG O2 Saturation 91 % (94-98) L 01/08/20 10:18 ABG Base Excess 7.5 mmol/L (-3-3) H 01/08/20 10:18 FiO2 21 % 01/08/20 10:18 Sodium 133 mmol/L (136-145) L 01/08/20 09:50 Potassium 4.6 mmol/L (3.5-5.1) 01/08/20 09:50 Chloride 94 mmol/L (98-107) L 01/08/20 09:50 Carbon Dioxide 31.4 mmol/L (21.0-32.0) 01/08/20 09:50 Anion Gap 7.6 mmol/L (3-11) 01/08/20 09:50 BUN 89 mg/dL (7-18) H* 01/08/20 09:50 Creatinine 2.84 mg/dL (0.55-1.02) H 01/08/20 09:50 Estimated GFR/1.73 m2 16.58 (mL/min/1.73m2) 01/08/20 09:50 Glucose 268 mg/dL (74-106) H 01/08/20 09:50 Lactate 1.2 mmol/L (0.6-1.4) 01/05/20 15:17 Calcium 10.0 mg/dL (8.5-10.1) 01/08/20 09:50 Magnesium 2.0 mg/dL (1.8-2.4) 01/07/20 06:08 Total Bilirubin 0.5 mg/dL (0.2-1.0) 01/06/20 06:11 AST 31 U/L (15-37) 01/06/20 06:11 ALT 27 U/L (14-59) 01/06/20 06:11 Alkaline Phosphatase 63 U/L (46-116) 01/06/20 06:11 Ammonia < 10 umol/L (11-32) L 01/07/20 09:05 Troponin I < 0.05 ng/Ml (<0.06) 01/07/20 13:20 NT-Pro-B Natriuret Pep 409 pg/mL (<300) H 01/05/20 13:20 Total Protein 7.0 g/dL (6.4-8.2) 01/06/20 06:11 Albumin 3.2 g/dL (3.4-5.0) L 01/06/20 06:11 Lipase 79 U/L (73-393) 01/05/20 13:20 TSH 0.75 uIU/mL (0.36-3.74) 01/05/20 21:52 Urine Color Yellow (Yellow) 01/05/20 14:00 Urine Clarity Sl cloudy (Clear) 01/05/20 14:00 Urine pH 6.5 (5-8) 01/05/20 14:00 Ur Specific [place] 1.020 (1.005-1.025) 01/05/20 14:00 Urine Protein Negative mg/dL (Negative) 01/05/20 14:00 Urine Ketones Negative mg/dL (Negative) 01/05/20 14:00 Urine Blood Trace-intact (Negative) H 01/05/20 14:00 Urine Nitrite Positive (Negative) H 01/05/20 14:00 Urine Bilirubin Negative (Negative) 01/05/20 14:00 Urine Urobilinogen 0.2 EU/dL (Up TO 0.2) 01/05/20 14:00 Ur Leukocyte Esterase Trace (Negative) H 01/05/20 14:00 Urine RBC 0-2 HPF (0-2) 01/05/20 14:00 Urine WBC 5-10 HPF (0-5) 01/05/20 14:00 Ur Epithelial Cells Few HPF (Negative) 01/05/20 14:00 Urine Crystals Negative HPF (Negative) 01/05/20 14:00 Urine Bacteria Many HPF (Negative) 01/05/20 14:00 Urine Casts Negative LPF (Negative) 01/05/20 14:00 Urine Mucus Negative (Negative) 01/05/20 14:00 Urine Other Rare renal (Negative) 01/05/20 14:00 Ur Culture Indicated? C&s done as ordered 01/05/20 14:00 Urine Glucose 500 mg/dL (Negative) H 01/05/20 14:00 Urine Opiates Screen Negative (Negative) 01/06/20 16:40 Urine Methadone Screen Negative (Negative) 01/06/20 16:40 Ur Barbiturates Screen Negative (Negative) 01/06/20 16:40 Ur Tricyclics Screen Negative (Negative) 01/06/20 16:40 Ur Amphetamines Screen Negative (Negative) 01/06/20 16:40 U Benzodiazepines Scrn Negative (Negative) 01/06/20 16:40 Urine Cocaine Screen Negative (Negative) 01/06/20 16:40 Ur THC Screen Negative (Negative) 01/06/20 16:40 Ethyl Alcohol < 3.0 mg/dL (<3) 01/05/20 13:20 COVID-19 PCR Negative (Negative) 01/05/20 17:30 Nasopharyn COVID-19 PCR Not Applicable 01/05/20 17:30 Ref Test Perform Site [facility] lab 01/05/20 17:30
[2020-01-08] MEDS: Normal Saline 500 ML IV (10:41)
[2020-01-08 10:43] LABS: Creatine Kinase 122 U/L (26-192)
[2020-01-08 11:55] VITALS: BP 123/56; PULSE 64; RESP 18; TEMP 36.6; O2SAT 97
[2020-01-08] MEDS: Normal Saline 1,000 ML 125 ML IV ×2 (11:55→21:08)
[2020-01-08] MEDS: cefTRIAXone 1 GM/50 ML BAG IVPB (14:34)
--- NOTE | 2020-01-08 15:03 | CHAPLAIN ---
As always, Ann-Marie easily engages in a conversation. She begins by telling me that last night and this morning she was not herself. She saw people in the room who weren't there, including family members who have . She said she was very confused and doesn't remember much of it. The experience (this also happened 01/06 in the morning) has left her afraid to fall asleep, she said. Ann-Marie also talked about her kids, her dogs and her family life. She is in touch with her children by phone. She lives with her daughter Savannah, who provides care for Ann-Marie. A son lives in [place], and two other daughters are local.
--- NOTE | 2020-01-08 15:29 | PDOC.CMPRO ---
- If Service Date Differs Date of service: 01/08/20 Time of Service: 15:29 Care Management Progress Note S/O: Bibi is sitting in a chair in her room during CM assessment. Bibi states she is not confused today and is aware that she was out of it yesterday. CM contacted [facility] and reviewed Bibi's insurance with the pharmacy. Bibi does have traditional medicaid the pharmacy had been billing wrong and plan to refund Bibi over $600.00 in medication cost. Bibi's new prescription copays for her insulin will be under 10.00 which she states she can afford. Bibi is grateful for the assistance. Bibi has had several episodes of confusion throughout her stay she will have a neurology consult, continues on IV abx for UTI. A: Ann-Marie is a 69 year old female admitted to [facility] on 01/05/2020 for altered mental status, UTI, and CAD. 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 She will follow up with her PCP, english instructor, and plan of care as directed. She will be driven home by her daughter, Elli, via private vehicle. CM will continue to support patient and discharge planning needs.
[2020-01-08 16:23] VITALS: BP 119/73; PULSE 73; RESP 17; TEMP 36.6; O2SAT 92
[2020-01-08] MEDS: Atorvastatin 40 MG TAB PO (20:05)
[2020-01-08] MEDS: rOPINIRole 0.5 MG TAB 2 MG PO (20:06)
[2020-01-08] MEDS: Insulin Glargine 300 UNITS/3 ML PEN 20 UNITS SC (21:20)
[2020-01-08 23:47] VITALS: BP 100/53; PULSE 65; RESP 18; TEMP 36.2; O2SAT 100
[2020-01-09] VITALS (7 sets, daily range): BP systolic 102–115; BP diastolic 51–76; PULSE 57–85; RESP 16–21; TEMP 35.9–36.7; O2SAT 94–97
[2020-01-09] MEDS: Normal Saline 1,000 ML 125 ML IV (05:18)
[2020-01-09] MEDS: Heparin 5,000 UNITS/ML VIAL 5000 UNITS SC ×3 (05:24→21:25)
[2020-01-09 06:53] LABS: Abs Immature Grans 0.11 k/cumm (0.0-0.09); Absolute Basophil Count 0.08 k/cumm (0.0-0.2); Absolute Eosinophil Count 0.76 k/cumm (0.0-0.7); Absolute Lymphocyte Count 2.41 k/cumm (1.2-3.4); Basophils % 0.7; Eosinophils % 6.5; HCT 35.5 % (36.0-46.0); HGB 10.8 g/dL (12.0-15.5); Immature Grans % 0.9 %; Lymphocytes % 20.7; Mean Corp. HGB Concentration 30.4 g/dL (32.0-36.0); Mean Corpuscular Hemoglobin 24.5 pg (27.0-33.0); Mean Corpuscular Volume 80.7 fL (80-95); Mean Platelet Volume 9.9 fL (8.0-11.0); Monocytes % 7.7; Neutrophils % 63.5; Platelet Count 476 x1000/uL (130-400); White Blood Cell Count 11.65 k/cumm (4.4-10.8)
[2020-01-09 07:06] LABS: Anion Gap 7.6 mmol/L (3-11); CO2 29.4 mmol/L (21.0-32.0); CREATININE 2.48 mg/dL (0.55-1.02); Calcium 9.3 mg/dL (8.5-10.1); Chloride 95 mmol/L (98-107); Estimated GFR 19.39 (mL/min/1.73m2); Glucose 249 mg/dL (74-106); Potassium 4.2 mmol/L (3.5-5.1); Sodium 132 mmol/L (136-145)
[2020-01-09 07:09] LABS: BUN 87 mg/dL (7-18)
[2020-01-09 07:29] LABS: Hemoglobin A1C 10.5 % (3.8-5.6)
[2020-01-09] MEDS: Budesonide/Formoterol 160/4.5 6 GM 60 PUFF INH IH ×2 (07:44→20:01)
[2020-01-09] MEDS: Insulin Aspart 300 UNITS/3 ML PEN SC ×4 (08:28→21:23)
[2020-01-09] MEDS: Folic Acid 1 MG TAB PO (09:18)
[2020-01-09] MEDS: dilTIAZem CD 120 MG CAPCR 240 MG PO (09:18)
[2020-01-09] MEDS: Calcium Carbonate 1.25 GM TAB 0.625 GM PO (09:18)
[2020-01-09] MEDS: Metoprolol 25 MG TAB PO ×2 (09:18→20:01)
[2020-01-09] MEDS: Allopurinol 100 MG TAB PO (09:18)
[2020-01-09] MEDS: Aspirin E.C. 81 MG TABEC PO (09:19)
[2020-01-09] MEDS: Omeprazole 20 MG CAPCR 40 MG PO ×2 (09:19→20:00)
[2020-01-09] MEDS: DULoxetine 30 MG CAP 60 MG PO (09:19)
[2020-01-09] MEDS: Magnesium Chloride 64 MG TABCR PO ×2 (09:19→20:01)
[2020-01-09] MEDS: Baclofen 10 MG TAB PO ×3 (09:19→20:01)
[2020-01-09] MEDS: Acetaminophen 325 MG TAB 650 MG PO ×2 (10:43→21:22)
--- NOTE | 2020-01-09 11:08 | PGE_ITS ---
Date of Service Date of service: 01/09/20 Time of Service: 11:08 Assessment and Plan Assessment and plan (1) UTI (urinary tract infection): Status: Acute Assessment and plan: urine culture grew citrobacter amalonaticus which is sensitive to ceftriaxone day 3. Qualifiers: Hematuria presence: without hematuria Urinary tract infection type: site unspecified Qualified Code(s): N39.0 - Urinary tract infection, site not specified (2) [id number] kidney injury: Status: Acute Assessment and plan: improved today, will continue diuretics on hold, stop IV fluids, hold nephrotoxic drugs, renal dosing on medications. following kidney functions closely. remove gonzalez catheter. (3) Altered mental status: Status: Resolved Assessment and plan: Improved and back at baseline, was likely multifactorial, with infection, dehydration, and acute hospitalization in geriatric patient. will continue treatment and safety precaution, consider neurology consult if not improving. Qualifiers: Altered mental status type: delirium Qualified Code(s): R41.0 - Disorientation, unspecified (4) CAD (coronary artery disease), [place] coronary artery: Status: Chronic Assessment and plan: Elevated troponin on admission 0.14 x 3 with fourth 0.08, EKG with SR no ischemia, CP relieved, consulted cardiology, he agrees patient had NSTEMI, patient now with vague symptoms of fatigue, nausea, will get stat EKG, troponin, and repeat in 6 hours remained negative. Cardiology Evaluation This likely represents a type II non-STEMI. Given her chronic kidney disease and elevated creatinine any small leakage of troponin will be exaggerated. I do not think she needs aggressive medical therapy with anticoagulation at this point. ?Continue aspirin, atorvastatin, metoprolol ?Would consider outpatient stress test in the next few weeks Qualifiers: Associated angina: without angina [place] vs. transplanted heart: [place] heart Qualified Code(s): I25.10 - Atherosclerotic heart disease of [place] coronary artery without angina pectoris (5) Diabetes mellitus: Status: Chronic Assessment and plan: blood sugars still poorly controlled on lower insulin. will increase back to home 35 units last hemoglobin A1C in Sep 18.9, now at 10.5. 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 case and plan of care discussed with Dr Mims who is in agreement. Subjective Subjective Patient reports: no new complaints, feels better and tolerating a regular diet Interval history since last seen: no fevers, hemodynamically stable but remains confused and intermittently lethargic. poor po intake. no respiratory distress, blood cultures negative to date Exam Const General: cooperative, disheveled, frail appearing, ill appearing chronically and lethargic (intermittently) Nutritional Appearance: obese Orientation: alert, awake and oriented x3 HENMT Head: normal to inspection, normocephalic and atraumatic Mouth: oral mucosae normal Resp Effort & Inspection: normal respiratory effort Auscultation: clear to auscultation bilaterally Cardio Rate: regular rate Rhythm: regular rhythm GI Inspection: normal to inspection Palpation: soft Auscultation: normal bowel sounds Neuro General: patient alert, patient awake and patient confused Cranial Nerves: CN's II-XI intact bilaterally Cognition: abnormal cognition Speech: speech normal Extrem General: normal to inspection, full ROM and edema Laterality: bilateral Objective Objective Clinical Data: Abnormal lab results 01/09/20 01/09/20 01/09/20 Range/Units 06:10 06:10 06:10 WBC 11.65 H (4.4-10.8) k/cumm Hgb 10.8 L (12.0-15.5) g/dL Hct 35.5 L (36.0-46.0) % MCH 24.5 L (27.0-33.0) pg MCHC 30.4 L (32.0-36.0) g/dL RDW 17.0 H (11.7-14.6) % Plt Count 476 H (130-400) x1000/uL Absolute Neutrophils 7.40 H (1.2-6.7) k/cumm Absolute Monocytes 0.90 H (0.11-0.7) k/cumm Absolute Eosinophils 0.76 H (0.0-0.7) k/cumm Sodium 132 L (136-145) mmol/L Chloride 95 L (98-107) mmol/L BUN 87 H* (7-18) mg/dL Creatinine 2.48 H (0.55-1.02) mg/dL Glucose 249 H (74-106) mg/dL Hemoglobin A1c 10.5 H (3.8-5.6) % Vital Signs Temperature 36.5 C 01/09/20 07:35 Temperature Source Tympanic 01/09/20 07:35 Pulse 68 01/09/20 07:35 Pulse Rhythm Regular 01/09/20 04:00 Respiratory Rate 17 01/09/20 07:35 Respiratory Effort Non-Labored 01/09/20 04:00 Respiratory Depth Normal 01/09/20 04:00 Respiratory Pattern Normal 01/09/20 04:00 Blood Pressure 102/52 L 01/09/20 07:35 Blood Pressure Position Sitting 01/05/20 13:03 Pulse Oximetry 95 01/09/20 07:45 Oxygen Delivery Method Room Air 01/09/20 07:45 Oxygen Flow Rate 0 01/09/20 07:45 Pain Level 8 01/09/20 10:43 Intake & Output 01/08/20 01/08/20 01/09/20 11:59 23:59 11:59 Intake Total 500 / 2470 1970 / 2470 1240 / 1240 Output Total 600 / 4000 3400 / 4000 1250 / 1250 Balance -100 / -1530 -1430 / -1530 -10 / -10 Weight 123.7 kg 123.6 kg Intake: IV 500 / 1500 1000 / 1500 1000 / 1000 Oral 970 / 970 240 / 240 Output: Urine 600 / 4000 3400 / 4000 1250 / 1250 Other: Urine Color Pale Yellow Yellow Yellow Urine Appearance Clear Clear Clear Urine Odor Normal Comment soaked bed and brief Voiding Methods Incontinent Indwelling Catheter Laboratory Results WBC 11.65 k/cumm (4.4-10.8) H 01/09/20 06:10 RBC 4.40 m/cumm (4.00-5.20) 01/09/20 06:10 Hgb 10.8 g/dL (12.0-15.5) L 01/09/20 06:10 Hct 35.5 % (36.0-46.0) L 01/09/20 06:10 MCV 80.7 fL (80-95) 01/09/20 06:10 MCH 24.5 pg (27.0-33.0) L 01/09/20 06:10 MCHC 30.4 g/dL (32.0-36.0) L 01/09/20 06:10 RDW 17.0 % (11.7-14.6) H 01/09/20 06:10 Plt Count 476 x1000/uL (130-400) H 01/09/20 06:10 MPV 9.9 fL (8.0-11.0) 01/09/20 06:10 Immature Gran % 0.9 % 01/09/20 06:10 Neutrophils % 63.5 01/09/20 06:10 Lymphocytes % 20.7 01/09/20 06:10 Monocytes % 7.7 01/09/20 06:10 Eosinophils % 6.5 01/09/20 06:10 Basophils % 0.7 01/09/20 06:10 Absolute Neutrophils 7.40 k/cumm (1.2-6.7) H 01/09/20 06:10 Absolute Lymphocytes 2.41 k/cumm (1.2-3.4) 01/09/20 06:10 Absolute Monocytes 0.90 k/cumm (0.11-0.7) H 01/09/20 06:10 Absolute Eosinophils 0.76 k/cumm (0.0-0.7) H 01/09/20 06:10 Absolute Basophils 0.08 k/cumm (0.0-0.2) 01/09/20 06:10 ABG Sample Site Left radial 01/08/20 10:18 ABG pH 7.46 (7.35-7.45) H 01/08/20 10:18 ABG pCO2 44 mmHg (34-47) 01/08/20 10:18 ABG pO2 63 mmHg (83-108) L 01/08/20 10:18 ABG HCO3 31 mmol/L (22-28) H 01/08/20 10:18 ABG Total CO2 28 mmol/L (22-29) 01/08/20 10:18 ABG O2 Saturation 91 % (94-98) L 01/08/20 10:18 ABG Base Excess 7.5 mmol/L (-3-3) H 01/08/20 10:18 FiO2 21 % 01/08/20 10:18 Sodium 132 mmol/L (136-145) L 01/09/20 06:10 Potassium 4.2 mmol/L (3.5-5.1) 01/09/20 06:10 Chloride 95 mmol/L (98-107) L 01/09/20 06:10 Carbon Dioxide 29.4 mmol/L (21.0-32.0) 01/09/20 06:10 Anion Gap 7.6 mmol/L (3-11) 01/09/20 06:10 BUN 87 mg/dL (7-18) H* 01/09/20 06:10 Creatinine 2.48 mg/dL (0.55-1.02) H 01/09/20 06:10 Estimated GFR/1.73 m2 19.39 (mL/min/1.73m2) 01/09/20 06:10 Glucose 249 mg/dL (74-106) H 01/09/20 06:10 Hemoglobin A1c 10.5 % (3.8-5.6) H 01/09/20 06:10 Lactate 1.2 mmol/L (0.6-1.4) 01/05/20 15:17 Calcium 9.3 mg/dL (8.5-10.1) 01/09/20 06:10 Magnesium 2.0 mg/dL (1.8-2.4) 01/07/20 06:08 Total Bilirubin 0.5 mg/dL (0.2-1.0) 01/06/20 06:11 AST 31 U/L (15-37) 01/06/20 06:11 ALT 27 U/L (14-59) 01/06/20 06:11 Alkaline Phosphatase 63 U/L (46-116) 01/06/20 06:11 Ammonia < 10 umol/L (11-32) L 01/07/20 09:05 Creatine Kinase 122 U/L (26-192) 01/08/20 09:50 Troponin I < 0.05 ng/Ml (<0.06) 01/07/20 13:20 NT-Pro-B Natriuret Pep 409 pg/mL (<300) H 01/05/20 13:20 Total Protein 7.0 g/dL (6.4-8.2) 01/06/20 06:11 Albumin 3.2 g/dL (3.4-5.0) L 01/06/20 06:11 Lipase 79 U/L (73-393) 01/05/20 13:20 TSH 0.75 uIU/mL (0.36-3.74) 01/05/20 21:52 Urine Color Yellow (Yellow) 01/05/20 14:00 Urine Clarity Sl cloudy (Clear) 01/05/20 14:00 Urine pH 6.5 (5-8) 01/05/20 14:00 Ur Specific [place] 1.020 (1.005-1.025) 01/05/20 14:00 Urine Protein Negative mg/dL (Negative) 01/05/20 14:00 Urine Ketones Negative mg/dL (Negative) 01/05/20 14:00 Urine Blood Trace-intact (Negative) H 01/05/20 14:00 Urine Nitrite Positive (Negative) H 01/05/20 14:00 Urine Bilirubin Negative (Negative) 01/05/20 14:00 Urine Urobilinogen 0.2 EU/dL (Up TO 0.2) 01/05/20 14:00 Ur Leukocyte Esterase Trace (Negative) H 01/05/20 14:00 Urine RBC 0-2 HPF (0-2) 01/05/20 14:00 Urine WBC 5-10 HPF (0-5) 01/05/20 14:00 Ur Epithelial Cells Few HPF (Negative) 01/05/20 14:00 Urine Crystals Negative HPF (Negative) 01/05/20 14:00 Urine Bacteria Many HPF (Negative) 01/05/20 14:00 Urine Casts Negative LPF (Negative) 01/05/20 14:00 Urine Mucus Negative (Negative) 01/05/20 14:00 Urine Other Rare renal (Negative) 01/05/20 14:00 Ur Culture Indicated? C&s done as ordered 01/05/20 14:00 Urine Glucose 500 mg/dL (Negative) H 01/05/20 14:00 Urine Opiates Screen Negative (Negative) 01/06/20 16:40 Urine Methadone Screen Negative (Negative) 01/06/20 16:40 Ur Barbiturates Screen Negative (Negative) 01/06/20 16:40 Ur Tricyclics Screen Negative (Negative) 01/06/20 16:40 Ur Amphetamines Screen Negative (Negative) 01/06/20 16:40 U Benzodiazepines Scrn Negative (Negative) 01/06/20 16:40 Urine Cocaine Screen Negative (Negative) 01/06/20 16:40 Ur THC Screen Negative (Negative) 01/06/20 16:40 Ethyl Alcohol < 3.0 mg/dL (<3) 01/05/20 13:20 COVID-19 PCR Negative (Negative) 01/05/20 17:30 Nasopharyn COVID-19 PCR Not Applicable 01/05/20 17:30 Ref Test Perform Site [facility] hospital lab 01/05/20 17:30
[2020-01-09 11:29] LABS: Troponin I < 0.05 ng/Ml (<0.06)
--- NOTE | 2020-01-09 13:12 | CMPROGNOTE_ITS ---
- If Service Date Differs Date of service: 01/09/20 Time of Service: 13:12 Care Management Progress Note S/O: Ann-Marie is alert, she will transition to oral abx today with the anticipation she will be discharged home on Monday. She will have resumption of home health nursing. No other changes in the plan today. A: Ann-Marie is a 69 year old female admitted to [facility] on 01/05/2020 for altered mental status, UTI, and CAD. 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 She will follow up with her PCP, inspector line, and plan of care as directed. She will be driven home by her daughter, Elli, via private vehicle. CM will continue to support patient and discharge planning needs.
[2020-01-09] MEDS: Normal Saline Flush 10 ML SYR IVP (13:39)
[2020-01-09] MEDS: cefTRIAXone 1 GM/50 ML BAG IVPB (13:39)
[2020-01-09] MEDS: rOPINIRole 0.5 MG TAB 2 MG PO (20:00)
[2020-01-09] MEDS: Atorvastatin 40 MG TAB PO (20:01)
[2020-01-09 21:10] LABS: Glucose 357 mg/dL (74-106)
[2020-01-09] MEDS: Insulin Glargine 300 UNITS/3 ML PEN 35 UNITS SC (21:24)
[2020-01-10 04:38] VITALS: BP 130/69; PULSE 54; RESP 16; TEMP 36.2; O2SAT 96
[2020-01-10] MEDS: Heparin 5,000 UNITS/ML VIAL 5000 UNITS SC ×2 (06:34→13:24)
[2020-01-10 07:22] VITALS: BP 143/81; PULSE 61; RESP 18; TEMP 36.6; O2SAT 94
[2020-01-10] MEDS: Baclofen 10 MG TAB PO ×2 (07:51→13:25)
[2020-01-10] MEDS: Omeprazole 20 MG CAPCR 40 MG PO (07:51)
[2020-01-10] MEDS: Folic Acid 1 MG TAB PO (07:51)
[2020-01-10] MEDS: Calcium Carbonate 1.25 GM TAB 0.625 GM PO (07:51)
[2020-01-10] MEDS: Aspirin E.C. 81 MG TABEC PO (07:52)
[2020-01-10] MEDS: DULoxetine 30 MG CAP 60 MG PO (07:52)
[2020-01-10] MEDS: Magnesium Chloride 64 MG TABCR PO (07:52)
[2020-01-10] MEDS: Allopurinol 100 MG TAB PO (07:52)
[2020-01-10] MEDS: Metoprolol 25 MG TAB PO (07:52)
[2020-01-10] MEDS: dilTIAZem CD 120 MG CAPCR 240 MG PO (07:52)
[2020-01-10] MEDS: Insulin Aspart 300 UNITS/3 ML PEN SC ×2 (07:55→12:07)
[2020-01-10] MEDS: Budesonide/Formoterol 160/4.5 6 GM 60 PUFF INH IH (08:16)
[2020-01-10 08:17] VITALS: O2SAT 94
[2020-01-10 08:53] LABS: Abs Immature Grans 0.08 k/cumm (0.0-0.09); Absolute Basophil Count 0.04 k/cumm (0.0-0.2); Absolute Eosinophil Count 0.72 k/cumm (0.0-0.7); Absolute Lymphocyte Count 1.61 k/cumm (1.2-3.4); Absolute Monocyte Count 0.66 k/cumm (0.11-0.7); Absolute Neutrophil Count 7.84 k/cumm (1.2-6.7); Basophils % 0.4; Eosinophils % 6.6; HCT 34.6 % (36.0-46.0); HGB 10.5 g/dL (12.0-15.5); Immature Grans % 0.7 %; Lymphocytes % 14.7; Mean Corp. HGB Concentration 30.3 g/dL (32.0-36.0); Mean Corpuscular Hemoglobin 24.6 pg (27.0-33.0); Mean Corpuscular Volume 81.2 fL (80-95); Mean Platelet Volume 9.7 fL (8.0-11.0); Neutrophils % 71.6; Platelet Count 445 x1000/uL (130-400); RBC 4.26 m/cumm (4.00-5.20); White Blood Cell Count 10.95 k/cumm (4.4-10.8)
[2020-01-10 09:04] LABS: Anion Gap 10.4 mmol/L (3-11); BUN 76 mg/dL (7-18); CO2 26.6 mmol/L (21.0-32.0); CREATININE 2.15 mg/dL (0.55-1.02); Calcium 9.6 mg/dL (8.5-10.1); Chloride 96 mmol/L (98-107); Estimated GFR 22.86 (mL/min/1.73m2); Glucose 299 mg/dL (74-106); Magnesium 1.7 mg/dL (1.8-2.4); Potassium 4.4 mmol/L (3.5-5.1); Sodium 133 mmol/L (136-145)
[2020-01-10] MEDS: Acetaminophen 325 MG TAB 650 MG PO (10:38)
[2020-01-10] MEDS: Ondansetron 4 MG/2 ML VIAL IVP (10:39)
[2020-01-10] MEDS: Normal Saline Flush 10 ML SYR IVP ×2 (10:40→13:29)
--- NOTE | 2020-01-10 10:58 | W.NUTRFU ---
Date of service: 01/10/20 Time of Service: 10:58 Nutritional Follow up NOTE: Ann-Marie continues on Diabetic Diet with excellent intake. Following carb control diet however blood sugars continue to be significantly elevated (249-357 mg/dl this week), A1C 10.5% indicates poorly controlled diabetes prior to hospitalization. At risk for complications associated with uncontrolled diabetes. Recommend intensive outpatient diabetes counseling at discharge. Recheck A1C q 3 months. Time Spent in Nutritional Counseling and Treatment: 5 min spent face to face
[2020-01-10 12:00] VITALS: PULSE 12; PULSE 76; PULSE 96; RESP 12; RESP 28; RESP 70; O2SAT 94; O2SAT 95; O2SAT 98
[2020-01-10 12:09] VITALS: BP 110/73; PULSE 69; RESP 18; TEMP 35.5; O2SAT 95
--- NOTE | 2020-01-10 13:23 | W.PM.DS.N ---
Date of service: 01/10/20 Time of Service: 13:23 DS: Diagnosis Discharge Diagnosis (1) UTI (urinary tract infection): Status: Acute (2) Cswoo-pc-tjajjbw kidney injury: Status: Acute (3) Altered mental status: Status: Resolved (4) CAD (coronary artery disease), [place] coronary artery: Status: Chronic (5) Diabetes mellitus: Status: Chronic Discharge Plan Disposition Patient Disposition: HOME W/HOME HEALTH SERVICE Condition: Stable Discharge Details Chief Complaint: AMS/LOC Clinical Impression: Acute UTI, Non-ST elevation AL (NSTEMI) Reason For Visit: ALTERED MENTAL STATUS WITH OPIOD MISUSE, UTI, CAD Admit Date/Time: 01/05/20 17:33 Admit Provider: Kiran Quezada Attending Provider: Kiran Quezada Primary Care Provider: Laisha Mcmahon ED Provider: Misbah Arellano Hospital Course Hospital Course: This is a 69-year-old lady with multiple medical problems who presented to the ED with a 2 day history of increasing confusion and missed her morning dose of medications the day prior to admission. She did start oxycodone the week prior which was thought to have caused increased confusion. In the ED her mental status cleared. She was having increased urinary incontinence along with her delusional thought processes with patient seeing and speaking to relatives. She also was slightly dry with worsened CKD usually is stage III but at stage IV on admission and she does have uncontrolled diabetes with a hemoglobin A1c usually in the range of 8. Patient was admitted for gentle IV hydration overnight and IV Rocephin for her UTI which was thought to be contributing to her confusion. Her troponins were trended as they were elevated on admission at 0.14 x 3 with fourth 0.08, EKG with SR no ischemia, CP relieved. Cardiology was consulted and Dr Mas agrees patient had NSTEMI, given her chronic kidney disease and elevated creatinine any small leakage of troponin will be exaggerated. He did not think she needs aggressive medical therapy with anticoagulation at this point. Recommendations to continue aspirin, atorvastatin, metoprolol. He would consider outpatient stress test in the next few weeks if needed. She has a history of proximal atrial fibrillation but is not on anticoagulation. Her mental status was slow to clear, but after additional IV fluids and holding of diuretics patient finally cleared and returned to baseline. she will be discharged on decreased dosing of diuretics as discussed with Dr Mcmahon. She has completed 5 days of IV ceftriaxone to treat her urinary tract infection. blood cultures remained negative and she grew citrobacter amalonaticus sensitive to ceftriaxone. She also with be discharged to home on a medrol dose pack, as discussed with Dr Mcmahon to treat her acute on chronic low back pain. she will have resumption of services for home health nursing, physical therapy and social work supervisor and will have lab work on Monday to check electrolytes, kidney functions and CBC. her hemoglobin A1C was 10.5, up from 8.9 in September, will defer diabetes management to pcp with no changes recommended at discharge covid 19 test was negative and she was ruled out for COVID infection. plan of care was discussed with Dr Mims who is in agreement with plan. Home Meds and New Rx's Prescriptions: New methylprednisolone [Medrol (Erick)] 4 mg tablets,dose pack See Rx Instructions .ROUTE .COMPLEX Qty: 21 RF: 0 Continued (DME) lancets 25 gauge misc See Dose Instructions .ROUTE .MEDSUPPLY Qty: 100 RF: 5 (DME) lancets [OneTouch Delica Lancets] 33 gauge misc See Dose Instructions .ROUTE DAILY Qty: 100 RF: 0 estradiol 0.01 % (0.1 mg/gram) cream 1 gm VG DAILY RF: 0 B-complex with vitamin C [Super B Complex-Vitamin C] Tablet 1 tab PO DAILY RF: 0 calcium carbonate [Oyster Shell Calcium 500] 500 mg calcium (1,250 mg) tablet 500 mg PO DAILY RF: 0 (DME) pen needle, diabetic [1st Tier Unifine Pentips] 31 gauge x 1/4 needle See Dose Instructions .ROUTE .MEDSUPPLY Qty: 450 RF: 5 ropinirole 2 mg tablet 2 mg PO QPM PRN (Reason: restless leg(s)) Qty: 90 RF: 5 gabapentin 600 mg tablet 600 mg PO TID Qty: 270 RF: 12 atorvastatin 40 mg tablet 40 mg PO DAILY Qty: 90 RF: 6 duloxetine 60 mg capsule,delayed release(DR/EC) 60 mg PO DAILY Qty: 90 RF: 12 diltiazem HCl 120 mg capsule,extended release 24hr 240 mg PO DAILY Qty: 180 RF: 5 allopurinol 100 mg tablet 100 mg PO DAILY Qty: 90 RF: 12 baclofen 10 mg tablet 10 mg PO TID Qty: 90 RF: 4 folic acid 1 mg tablet 1 mg PO DAILY Qty: 90 RF: 5 nystatin 100,000 unit/gram cream 1 applic Topical BID PRN (Reason: yeast) Qty: 30 RF: 2 meclizine 12.5 mg tablet 25 mg PO TID PRN (Reason: dizziness) Qty: 60 RF: 3 ergocalciferol (vitamin D2) [Vitamin D2] 50,000 unit capsule 50,000 unit PO Qty: 36 RF: 4 epinephrine [EpiPen 2-Erick] 0.3 mg/0.3 mL auto-injector 0.3 mg IM ONCE Qty: 2 RF: 10 budesonide-formoterol [Symbicort] 160-4.5 mcg/actuation HFA aerosol inhaler 2 puff IH BID Qty: 10.2 RF: 12 metoprolol succinate 50 mg tablet extended release 24 hr 25 mg PO DAILY Qty: 90 RF: 3 Januvia 25 mg tablet 25 mg PO DAILY Qty: 90 RF: 4 (DME) blood sugar diagnostic [Blood Glucose Test] Strip See Dose Instructions .ROUTE .MEDSUPPLY Qty: 300 RF: 5 insulin aspart U-100 [Novolog Flexpen U-100 Insulin] 100 unit/mL (3 mL) insulin pen 15 unit SC TID Qty: 30 RF: 5 insulin aspart U-100 [Novolog Flexpen U-100 Insulin] 100 unit/mL (3 mL) insulin pen 15 unit SC TID Qty: 30 RF: 5 polyethylene glycol 3350 [Miralax] 17 gram Powder In Packet 1 g PO PRN PRNRF: 0 magnesium hydroxide [Milk of Magnesia] 400 mg/5 mL Suspension 30 ml PO PRN PRN (Reason: Constipation) RF: 0 aspirin [Aspir-81] 81 mg Tablet,Delayed Release (Dr/Ec) 81 mg PO DAILY Qty: 30 RF: 0 acetaminophen [Tylenol Extra Strength] 500 mg Tablet 1,000 mg PO Q8H PRN PRN (Reason: Pain) Qty: 0 RF: 0 metolazone 5 mg tablet 5 mg PO Q48H Qty: 90 RF: 4 Basaglar KwikPen U-100 Insulin 100 unit/mL (3 mL) insulin pen 35 unit SC HS Qty: 45 RF: 4 albuterol sulfate 2.5 mg /3 mL (0.083 %) Solution For Nebulization 2.5 mg INHALATION Q2H PRN PRN (Reason: shortness of breath or wheezing) Qty: 0 RF: 0 omeprazole 40 mg Capsule,Delayed Release(Dr/Ec) 40 mg PO BID RF: 0 Slow-Mag 71.5 mg Tablet,Delayed Release (Dr/Ec) 71.5 mg PO BID RF: 0 Changed spironolactone 50 mg tablet 25 mg PO DAILY Qty: 180 RF: 7 torsemide 100 mg tablet 50 mg PO DAILY Qty: 180 RF: 4 Discontinued oxycodone 10 mg tablet 10 mg PO TID MDD 3 PRN (Reason: pain) Qty: 21 RF: 0 No Action potassium chloride 20 mEq tablet extended release 20 meq PO DAILY Qty: 90 RF: 5 Hold Instructions: Home Medication placed on hold at Doctor's office Discharge Instructions Instructions: Urinary Tract Infection in Women (DC), Altered Mental Status (ED) Additional Instructions: weight yourself daily your home health services will resume your diuretics have been reduced. you have completed a 5 day course of antibiotics for your urinary infection, you do not need any more antibiotics. Stand Alone Forms: Nursing Discharge Form Referrals: Laisha Mcmahon MD, [place] [Primary Care Provider] - 01/20/20 9:20 am Activity:: Activity as Tolerated Equipment/Supplies:: No Equipment Needed Diet:: Carb Counting Discharge Orders Discharge Orders: Discharge Order (Routine); Ordered 01/10/20 Ordered By: Marina Coker Other Ambulatory Orders: Basic Metabolic Panel (Routine) Timeframe: 20200113 Location: None Selected Ordered By: Marina Coker Complete Blood Count w/Diff (Routine) Timeframe: 20200113 Location: None Selected Ordered By: Marina Coker DS: Summary Status at Discharge Functional status at discharge: independent ambulation Overall status at discharge: patient is progressing back to baseline Mental Status: mental status grossly normal Speech and Movement: speech and movement normal Mood: congruent mood Affect: normal affect Exam Const General: cooperative, disheveled, frail appearing, ill appearing chronically and lethargic (intermittently) Nutritional Appearance: obese Orientation: alert, awake and oriented x3 HENMT Head: normal to inspection, normocephalic and atraumatic Mouth: oral mucosae normal Resp Effort & Inspection: normal respiratory effort Auscultation: clear to auscultation bilaterally Cardio Rate: regular rate Rhythm: regular rhythm GI Inspection: normal to inspection Palpation: soft Auscultation: normal bowel sounds Neuro General: patient alert, patient awake and patient confused Cranial Nerves: CN's II-XI intact bilaterally Cognition: abnormal cognition Speech: speech normal Extrem General: normal to inspection, full ROM and edema Laterality: bilateral Psych Mental Status: mental status grossly normal Speech and Movement: speech and movement normal Mood: congruent mood Affect: normal affect DS: Data Vitals/I&O Vitals and I&O: Vital Signs Temperature 35.5 C L 01/10/20 12:09 Temperature Source Temporal Artery Scan 01/10/20 12:09 Pulse 69 01/10/20 12:09 Pulse Rhythm Regular 01/10/20 08:07 Respiratory Rate 18 01/10/20 12:09 Respiratory Effort Non-Labored 01/10/20 08:07 Respiratory Depth Normal 01/10/20 08:07 Respiratory Pattern Normal 01/10/20 08:07 Blood Pressure 110/73 01/10/20 12:09 Blood Pressure Position Sitting 01/05/20 13:03 Pulse Oximetry 95 01/10/20 12:09 Oxygen Delivery Method Room Air 01/10/20 12:09 Oxygen Flow Rate 0 01/10/20 12:09 Pain Level 6 01/10/20 12:09 Intake & Output 01/09/20 01/10/20 01/10/20 23:59 11:59 23:59 Intake Total 1477.917 / 2717.917 450 / 450 Output Total 475 / 2425 950 / 950 Balance 1002.917 / 292.917 -500 / -500 Weight 123.4 kg Intake: IV 997.917 / 1997.917 Oral 480 / 720 450 / 450 Output: Urine 475 / 2425 950 / 950 Other: Urine Color Pale Yellow Urine Appearance Clear Clear Urine Odor Normal Stool Size Large Stool Characteristics Formed Black Voiding Methods Toilet Bedside Commode Data Completed and Pending Labs on day of discharge: Labs from last 24 hours 01/10/20 01/10/20 01/09/20 08:45 08:45 20:50 WBC 10.95 H RBC 4.26 Hgb 10.5 L Hct 34.6 L MCV 81.2 MCH 24.6 L MCHC 30.3 L RDW 17.0 H Plt Count 445 H MPV 9.7 Immature Gran % 0.7 Neutrophils % 71.6 Lymphocytes % 14.7 Monocytes % 6.0 Eosinophils % 6.6 Basophils % 0.4 Absolute Neutrophils 7.84 H Absolute Lymphocytes 1.61 Absolute Monocytes 0.66 Absolute Eosinophils 0.72 H Absolute Basophils 0.04 Sodium 133 L Potassium 4.4 Chloride 96 L Carbon Dioxide 26.6 Anion Gap 10.4 BUN 76 H Creatinine 2.15 H Estimated GFR/1.73 m2 22.86 Glucose 299 H 357 H D Calcium 9.6 Magnesium 1.7 L Preliminary micro results at discharge 01/05/20 15:25 Blood Culture - Preliminary Blood NO GROWTH 96 HOURS 01/05/20 15:09 Blood Culture - Preliminary Blood NO GROWTH 96 HOURS [facility] Medical History Abnormal mammography (Resolved) 08/10/06 Acute kidney injury superimposed on chronic kidney disease (Inactive) Anemia (Chronic) Ankle pain (Resolved 03/13/14) Atrial fibrillation (Chronic) paroxysmal, onset 2015, anticoagulated w/ Xarelto; anticoagulation discontinued after left atrial appendage excision 01/03/2019 Atrial fibrillation Atrial flutter (Inactive) Carpal tunnel syndrome Carpal tunnel syndrome (Resolved 08/10/06) BILATERAL R S/P SURGERY Cervical disc disorder with myelopathy (Resolved 08/21/08) S/P surgery x 2 Cervical spondylosis with myelopathy Chest pain (Resolved) Neg Stress test Chronic obstructive lung disease (Chronic) CKD (chronic kidney disease) stage 3, GFR 30-59 ml/min (Chronic) Cr about 2.5 Constipation (Inactive) Dehydration (Inactive) Diabetes mellitus (Chronic) Diabetes mellitus (Resolved) 09/20/10 Positive Microalbumin Diastolic CHF (Inactive) Essential hypertension (Chronic) Folate deficiency (Resolved 02/15/16) Gout Gout (Chronic 07/06/11) Gram-positive bacteremia (Resolved) HAP (hospital-acquired pneumonia) (Resolved 01/15/19) HCAP (healthcare-associated pneumonia) (Resolved) Hepatomegaly (Resolved) 06/10/04 Hip joint inflamed (Resolved 09/03/15) Hip pain, left (Chronic) Hip pain, right (Chronic) Hyperlipidemia (Chronic 08/10/00) Hypertension Hypomagnesemia (Inactive) Hypoxia (Inactive) Low back pain (Resolved 04/10/03) DISC HERNIATION L4. MULTILEVEL DJD/SPINAL STENOSIS BY MRI; S/P surgery Lump in neck (Resolved) Menopausal syndrome (Resolved) 07/11/03 Muscle fatigue (Resolved) 03/04/13 PAF (paroxysmal atrial fibrillation) (Chronic) Posterior tibial tendon dysfunction (Resolved) 02/03/16 Postmenopausal bleeding (Resolved) neg. endometrial biopsy Postoperative wound dehiscence (Resolved 12/23/15) Prerenal azotemia (Inactive) Primary osteoarthritis of left hip (Resolved 09/17/15) Pulmonary hypertension (Chronic) Renal impairment (Resolved 07/11/03) ADRENAL MASS. F/U W/ KINLAW positive microalbumin Restless leg syndrome (Chronic) Rotator cuff syndrome (Resolved 08/01/09) Shingles (Resolved) Smoker (Resolved 06/30/16) 01/17/17 1-2 cig/wk Spinal stenosis of lumbar region (Chronic 02/15/16) Spinal stenosis of lumbar region at multiple levels Tarsal tunnel syndrome (Resolved) 06/11/13 Tarsal tunnel syndrome (Resolved 06/11/13) Trochanteric bursitis (Resolved) 03/18/13 Upper respiratory tract infection (Resolved 08/03/15) UTI (urinary tract infection) (Inactive) Vitamin D deficiency Vitamin D deficiency (Resolved) Weakness (Inactive) Surgical History Arthrodesis right 2nd toe Cataract (Inactive 01/07/14) FOLLOWED BY [employer] cervical repair (~10/2008) C6-C7 DISK; RECURRENT SURGERY Cholecystectomy (07/31/13) Endometrial Biopsy NEG H/O arthrodesis (Resolved) right second toe H/O Spinal surgery (Resolved) multiple spine surgeries; low back x 2; She had multilevel DJD and spinal stenosis; disc herniation. 2009-cervical repair; C6-C7 disc; recurrent surgery. History of bilateral tubal ligation (Resolved) 09/11/80 History of gynecologic surgery (Resolved) endometrial biopsy-neg History of hip surgery (Resolved) 11/10/15 left hip arthroplasty 12/04/15-placement of wound VAC to left hip History of orthopedic surgery (Resolved) 09/11/97 tarsal tunnel release Left eye surgery 12/31/17 Ligation of fallopian tube (~1980) Open Carpal Tunnel release Right wrist surgery 10/26/17 Rotator Cuff Repair (~1980) S/P CABG (coronary artery bypass graft) (Chronic 01/03/19) 4 vessel CABG and [place] appendage [place], [place] [facility] [place] S/P carpal tunnel release (Resolved) S/P cholecystectomy (Resolved) 09/11/12 S/P rotator cuff repair (Resolved) 09/11/80 SPINE SURGERY Multiple spine surgeries, low back x 2. She had multilevel DJD and spinal stenosis, disc herniation Status post incision and drainage (Resolved) 12/04/15 left hip surgical wound dehiscence and infection tarsal tunnel release (~1997) Total replacement of hip [facility]; LEFT HIP Family History Mother Diabetes Essential hypertension Personal history of malignant neoplasm KIDNEY/LIVER/BRAIN Heart disease Hyperlipidemia Stroke Asthma Father Diabetes Essential hypertension Personal history of malignant neoplasm BONE Heart disease Asthma Sister Diabetes Essential hypertension Depression Heart disease Asthma Grandfather No problems noted. Grandfather No problems noted. Grandmother Personal history of malignant neoplasm UTERINE Grandmother Diabetes Aunt Personal history of malignant neoplasm BREAST Brother Hyperlipidemia Stroke Sister Asthma Son Asthma Daughter Depression Asthma Daughter Asthma Daughter Depression Neoplasm Asthma Brother No problems noted. 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
[2020-01-10] MEDS: cefTRIAXone 1 GM/50 ML BAG IVPB (13:24)
--- NOTE | 2020-01-10 13:44 | CMDISCH_ITS ---
- If Service Date Differs Date of service: 01/10/20 Time of Service: 13:45 LACE Index Scoring Tool - Questions: Length of Stay (in days): 4 - 6 Acuity (Admit via E.D.?): Yes Comorbidities: Chronic Pulmonary Disease, Liver or Renal Disease E.D. Visits: 7 - Answers: Total Score: 16 Risk of Readmission: High Risk Care Management Discharge Reason for Hospitalization: Altered mental status, UTI, and CAD (coronary artery disease). Discharge Plan: Ann-Marie is returning home with a resumption of home O2 through [facility] [place] and Home Health nursing. She will follow-up with her PCP and plan of care as directed. She is transporting home via private vehicle with family. Patient/Family Education Needs: Discharge instructions, limitations, follow-up plan of care, including Ask Me Three and self-management.
== END 2020-01-10 14:28 | disposition home health service (06) | DRG 689 ==
LOC: ER 18:44 → MS 19:00
PROVIDERS: Nurse Practitioner Acute Care; Nurse Practitioner Family; Physician Assistant; Admitting Provider Family Medicine; Emergency Provider Emergency Medicine; PCP Family Medicine; Visit Provider Internal Medicine
DX: N39.0 Urinary tract infection, site not specified (principal); I21.A1 Myocardial infarction type 2; N17.9 Acute kidney failure, unspecified; N18.4 Chronic kidney disease, stage 4 (severe); Z16.29 Resistance to other single specified antibiotic; B96.89 Other specified bacterial agents as the cause of diseases classified elsewhere; T40.2X1A Poisoning by other opioids, accidental (unintentional), initial encounter; I50.812 Chronic right heart failure; E11.22 Type 2 diabetes mellitus with diabetic chronic kidney disease; R41.82 Altered mental status, unspecified; I25.10 Atherosclerotic heart disease of native coronary artery without angina pectoris; E11.65 Type 2 diabetes mellitus with hyperglycemia; I48.0 Paroxysmal atrial fibrillation; Z66 Do not resuscitate; Z95.1 Presence of aortocoronary bypass graft; F32.9 Major depressive disorder, single episode, unspecified; Z71.3 Dietary counseling and surveillance
CPT/HCPCS: 36415; 80048; 80053; 80307; 82550; 82805; 82947; 83690; 85027; 87040; 87077; 93005; 94618; 94640; 99223; 99233; 99239; 99254; 99285; J3490; U0003; 36600; 70450; 71046; 80320; 81003; 81015; 82140; 83036; 83605; 83735; 83880; 84443; 84484; 85025; 87086; 87186; 93010; J0696; J1644; J2405

== ENCOUNTER → 2020-01-06 09:43 | Outpatient (BNVA) | payer MEDICARE, MEDICAID, SELFPAY | PROVIDERS: PCP Family Medicine; Referring Provider Family Medicine; Visit Provider Internal Medicine Cardiovascular Disease | DX: R69 Illness, unspecified (principal) ==

== ENCOUNTER 2020-01-13 13:37 | Outpatient (REF) | payer MEDICARE, MEDICAID, SELFPAY ==
[2020-01-13 14:06] LABS: Abs Immature Grans 0.09 k/cumm (0.0-0.09); Absolute Eosinophil Count 0.66 k/cumm (0.0-0.7); Absolute Lymphocyte Count 1.56 k/cumm (1.2-3.4); Absolute Monocyte Count 0.98 k/cumm (0.11-0.7); Basophils % 0.5; HCT 32.7 % (36.0-46.0); Immature Grans % 0.7 %; Lymphocytes % 11.8; Mean Corp. HGB Concentration 30.6 g/dL (32.0-36.0); Mean Corpuscular Hemoglobin 24.9 pg (27.0-33.0); Mean Corpuscular Volume 81.5 fL (80-95); Mean Platelet Volume 10.4 fL (8.0-11.0); Monocytes % 7.4; Neutrophils % 74.6; Platelet Count 420 x1000/uL (130-400); RBC 4.01 m/cumm (4.00-5.20); RBC Distribution Width 16.9 % (11.7-14.6); White Blood Cell Count 13.22 k/cumm (4.4-10.8)
[2020-01-13 14:07] LABS: Absolute Basophil Count 0.07 k/cumm (0.0-0.2); Absolute Neutrophil Count 9.86 k/cumm (1.2-6.7)
== END 2020-01-13 13:57 ==
LOC: LBN 13:37
PROVIDERS: PCP Family Medicine; Visit Provider Family Medicine
DX: I50.33 Acute on chronic diastolic (congestive) heart failure (principal); N39.0 Urinary tract infection, site not specified; I13.0 Hypertensive heart and chronic kidney disease with heart failure and stage 1 through stage 4 chronic kidney disease, or unspecified chronic kidney disease
CPT/HCPCS: 85025

== ENCOUNTER 2020-01-20 12:37 | Outpatient (REF) | payer MEDICARE, MEDICAID, SELFPAY ==
[2020-01-20 19:05] LABS: Bilirubin Negative (Negative); Blood Negative (Negative); Clarity Clear (Clear); Glucose 500 mg/dL (Negative); Ketones Negative (Negative); Leukocyte Esterase Negative (Negative); Nitrite Negative (Negative); Urobilinogen 0.2 EU/dL (Up TO 0.2)
== END 2020-01-20 12:57 ==
LOC: LBN 12:37
PROVIDERS: PCP Family Medicine; Visit Provider Family Medicine
DX: R30.0 Dysuria (principal)
CPT/HCPCS: 87077; 81003; 87086; 87186

== ENCOUNTER 2020-01-23 19:41 | Outpatient (REF) | payer MEDICARE, MEDICAID, SELFPAY ==
[2020-01-23 19:36] LABS: Bilirubin Negative (Negative); Blood Negative (Negative); Clarity Clear (Clear); Glucose 100 mg/dL (Negative); Ketones Negative (Negative); Leukocyte Esterase Negative (Negative); Nitrite Negative (Negative); Specific Gravity 1.015 (1.005-1.025); Urobilinogen 0.2 EU/dL (Up TO 0.2); pH 6.5 (5-8)
== END 2020-01-23 20:01 ==
LOC: LBN 19:41
PROVIDERS: PCP Family Medicine; Visit Provider Family Medicine
DX: R35.0 Frequency of micturition (principal)
CPT/HCPCS: 81003; 87086

== ENCOUNTER 2020-01-29 11:09 | Outpatient (REF) | payer MEDICARE, MEDICAID, SELFPAY ==
[2020-01-29 11:18] LABS: HCT 33.5 % (36.0-46.0); HGB 10.2 g/dL (12.0-15.5); Mean Corp. HGB Concentration 30.4 g/dL (32.0-36.0); Mean Corpuscular Hemoglobin 24.3 pg (27.0-33.0); Mean Corpuscular Volume 79.8 fL (80-95); Platelet Count 398 x1000/uL (130-400); RBC Distribution Width 16.4 % (11.7-14.6); White Blood Cell Count 14.44 k/cumm (4.4-10.8)
[2020-01-29 11:46] LABS: ALT 29 U/L (14-59); AST 12 U/L (15-37); Albumin 3.3 g/dL (3.4-5.0); Alkaline Phosphatase 70 U/L (46-116); Anion Gap 6.8 mmol/L (3-11); Bilirubin, Total 0.3 mg/dL (0.2-1.0); CO2 32.2 mmol/L (21.0-32.0); CREATININE 2.63 mg/dL (0.55-1.02); Calcium 9.1 mg/dL (8.5-10.1); Chloride 92 mmol/L (98-107); Estimated GFR 18.12 (mL/min/1.73m2); Glucose 274 mg/dL (74-106); NT-proBNP 387 pg/mL (<300); Potassium 3.8 mmol/L (3.5-5.1); Sodium 131 mmol/L (136-145); Total Protein 6.5 g/dL (6.4-8.2)
[2020-01-29 12:00] LABS: BUN 91 mg/dL (7-18)
== END 2020-01-29 11:29 ==
LOC: LBN 11:09
PROVIDERS: PCP Family Medicine; Visit Provider Family Medicine
DX: I50.33 Acute on chronic diastolic (congestive) heart failure (principal); D64.9 Anemia, unspecified; N18.9 Chronic kidney disease, unspecified
CPT/HCPCS: 80053; 85027; 83735; 83880

== ENCOUNTER → 2020-01-30 09:34 | Outpatient (BNVA) | payer MEDICARE, MEDICAID, SELFPAY | PROVIDERS: PCP Family Medicine; Referring Provider Family Medicine; Visit Provider Internal Medicine Cardiovascular Disease | DX: I50.812 Chronic right heart failure (principal); E11.22 Type 2 diabetes mellitus with diabetic chronic kidney disease; N18.4 Chronic kidney disease, stage 4 (severe); I48.0 Paroxysmal atrial fibrillation; I13.0 Hypertensive heart and chronic kidney disease with heart failure and stage 1 through stage 4 chronic kidney disease, or unspecified chronic kidney disease; Z79.4 Long term (current) use of insulin | CPT/HCPCS: 99214 ==

== ENCOUNTER 2020-02-05 11:29 | Outpatient (REF) | payer MEDICARE, MEDICAID, SELFPAY ==
[2020-02-05 11:56] LABS: HCT 32.6 % (36.0-46.0); HGB 9.8 g/dL (12.0-15.5); Mean Corp. HGB Concentration 30.1 g/dL (32.0-36.0); Mean Corpuscular Hemoglobin 24.1 pg (27.0-33.0); Mean Corpuscular Volume 80.1 fL (80-95); Mean Platelet Volume 9.8 fL (8.0-11.0); Platelet Count 450 x1000/uL (130-400); RBC 4.07 m/cumm (4.00-5.20); RBC Distribution Width 16.8 % (11.7-14.6); White Blood Cell Count 9.55 k/cumm (4.4-10.8)
[2020-02-05 12:10] LABS: ALT 31 U/L (14-59); AST 15 U/L (15-37); Albumin 3.3 g/dL (3.4-5.0); Alkaline Phosphatase 72 U/L (46-116); Anion Gap 7.3 mmol/L (3-11); BUN 75 mg/dL (7-18); Bilirubin, Total 0.5 mg/dL (0.2-1.0); CO2 33.7 mmol/L (21.0-32.0); CREATININE 2.49 mg/dL (0.55-1.02); Calcium 9.3 mg/dL (8.5-10.1); Chloride 94 mmol/L (98-107); Glucose 185 mg/dL (74-106); Magnesium 1.6 mg/dL (1.8-2.4); NT-proBNP 269 pg/mL (<300); Potassium 3.4 mmol/L (3.5-5.1); Sodium 135 mmol/L (136-145); Total Protein 6.6 g/dL (6.4-8.2)
== END 2020-02-05 11:49 ==
LOC: LBN 11:29
PROVIDERS: PCP Family Medicine; Visit Provider Family Medicine
DX: I50.33 Acute on chronic diastolic (congestive) heart failure (principal); D64.9 Anemia, unspecified; N17.9 Acute kidney failure, unspecified
CPT/HCPCS: 80053; 85027; 83735; 83880

== ENCOUNTER 2020-02-22 09:50 | Outpatient (REF) | payer MEDICARE, MEDICAID, SELFPAY ==
[2020-02-22 10:10] LABS: Bilirubin Negative (Negative); Blood Negative (Negative); Clarity Sl Cloudy (Clear); Glucose Negative (Negative); Ketones Negative (Negative); Leukocyte Esterase Negative (Negative); Nitrite Negative (Negative); Specific Gravity 1.015 (1.005-1.025); Urobilinogen 0.2 EU/dL (Up TO 0.2)
[2020-02-22 10:15] LABS: Abs Immature Grans 0.12 k/cumm (0.0-0.09); Absolute Basophil Count 0.08 k/cumm (0.0-0.2); Absolute Eosinophil Count 0.62 k/cumm (0.0-0.7); Absolute Lymphocyte Count 2.31 k/cumm (1.2-3.4); Absolute Neutrophil Count 10.98 k/cumm (1.2-6.7); Basophils % 0.5; HCT 36.2 % (36.0-46.0); HGB 10.7 g/dL (12.0-15.5); Immature Grans % 0.8 %; Mean Corp. HGB Concentration 29.6 g/dL (32.0-36.0); Mean Corpuscular Volume 81.3 fL (80-95); Mean Platelet Volume 9.9 fL (8.0-11.0); Monocytes % 8.3; Neutrophils % 71.4; Platelet Count 563 x1000/uL (130-400); RBC 4.45 m/cumm (4.00-5.20); RBC Distribution Width 16.6 % (11.7-14.6); White Blood Cell Count 15.38 k/cumm (4.4-10.8)
[2020-02-22 10:18] LABS: Absolute Monocyte Count 1.28 k/cumm (0.11-0.7)
[2020-02-22 10:36] LABS: ALT 24 U/L (14-59); AST 14 U/L (15-37); Albumin 3.4 g/dL (3.4-5.0); Alkaline Phosphatase 100 U/L (46-116); Anion Gap 6.6 mmol/L (3-11); Bilirubin, Total 0.5 mg/dL (0.2-1.0); CO2 40.4 mmol/L (21.0-32.0); CREATININE 2.62 mg/dL (0.55-1.02); Calcium 9.5 mg/dL (8.5-10.1); Chloride 89 mmol/L (98-107); Glucose 228 mg/dL (74-106); Magnesium 2.6 mg/dL (1.8-2.4); NT-proBNP 404 pg/mL (<300); Potassium 3.2 mmol/L (3.5-5.1); Sodium 136 mmol/L (136-145); Total Protein 7.3 g/dL (6.4-8.2)
[2020-02-22 10:46] LABS: BUN 92 mg/dL (7-18)
== END 2020-02-22 10:10 ==
LOC: LBN 09:50
PROVIDERS: PCP Family Medicine; Visit Provider Family Medicine
DX: I50.33 Acute on chronic diastolic (congestive) heart failure (principal); N39.0 Urinary tract infection, site not specified
CPT/HCPCS: 80053; 81003; 83735; 83880; 85025; 87086

== ENCOUNTER 2020-02-27 07:56 | Outpatient (CLI) | payer MEDICARE, MEDICAID, SELFPAY ==
[2020-02-27 08:05] VITALS: BP 113/57; PULSE 73; RESP 22; TEMP 36.4; O2SAT 93
[2020-02-27] MEDS: Bupivacaine 0.5% Pres-Free 10 ML VIAL IJ (08:49)
[2020-02-27] MEDS: Omnipaque 240 MG/ML 50 ML BTL IJ (08:50)
--- NOTE | 2020-02-27 08:57 | DI.RAD_ITS ---
EXAM: XR PAIN CLINIC LUMBAR SP 2V CLINICAL HISTORY: Dx: Lumbar Spondylosis. Lumbar medial branch block TECHNIQUE: Fluoroscopy was provided for the referring physician for guidance with performing injecti on procedure. COMPARISON: No exams were available for comparison FINDINGS: Please see procedure note for details. Fluoro time 34.0 RADIATION DOSE DELIVERED:
--- NOTE | 2020-02-27 09:01 | PDOC.PAIN ---
Pain Clinic Procedure Note Procedure Note Procedure Note: Lumbar/Sacral Medial Branch Blocks NARENDRA BOYER has been referred to the [facility] for lumbar/sacral medial branch blocks. COMMENTS: This is a her block. She was previous evaluated in our clinic. Multiple chronic medical problems. She has moderate renal failure and the amount of contrast will be minimized. Patient was interviewed and the medical record reviewed. There were no medical, pharmacologic, radiographic or other structural contraindications to attempting fluoroscopically guided local anesthetic lumbar/sacral medial branch blocks. Risks and expected side effects as well as potential benefit of the procedure were reviewed and voiced concerns addressed. The printed consent form was signed and witnessed. Standard time-out procedure was performed. Patient was placed in the prone position on the fluoroscopy table and automated blood pressure cuff and pulse oximeter applied. The skin entry points for approaching the anatomic target points of the segmental medial branches of bilateral L3, L4, L5DR were identified with anfluoroscopy and marked. Following thorough Chlorhexadine preparation of the skin and draping and 1% lidocaine infiltration of the skin entry points and subcutaneous tissues, a 22 gauge spinal needle was placed under fluoroscopic guidance down on to the target point for each respective segmental medial branch.Position was confirmed in A/P, oblique and lateral views with 0.15 ml of omnipaque 240. I next injected 0.5 cc of 0.5% Bupivacaine at each segmental nerve. The needles were removed without difficulty. Vital signs were stable throughout the procedure and were as recorded in the docflowsheet by the nursing staff. Follow up plans and appointments were discussed and was instructed to keep careful note of how the usual pain was modified by these injections. Specifically was asked to keep a pain diary for the next 24 hours using a numeric pain scale of 0-10 and report these results at the follow-up visit. Post procedure instruction was given as documented in the nursing documentation and having met discharge criteria. Patient was discharged from the [facility]. Based on the medial branches blocked today, if the patient has adequate relief and we are able to proceed to radiofrequency ablation, the treatment should result in the denervation of the bilateral L4-L5 and L5-S1 FACET JOINTS. We would expect to denervate a total of 4 facets during the radiofrequency ablation. COMMENTS: She will call back with her 1-4 hour post-procedure pain scores. CC: Laisha Mcmahon MD, [place]
[2020-02-27 09:18] VITALS: BP 114/64; PULSE 70; RESP 21; O2SAT 100
== END 2020-02-27 08:16 ==
PROVIDERS: PCP Family Medicine; Visit Provider Preventive Medicine Occupational Medicine
DX: M47.817 Spondylosis without myelopathy or radiculopathy, lumbosacral region (principal)
CPT/HCPCS: 64493; 64494; 72100; Q9967

== ENCOUNTER → 2020-03-03 10:13 | Outpatient (BNVA) | payer MEDICARE, MEDICAID, SELFPAY | PROVIDERS: PCP Family Medicine; Referring Provider Family Medicine; Visit Provider Internal Medicine Cardiovascular Disease | DX: I21.4 Non-ST elevation (NSTEMI) myocardial infarction (principal); I25.10 Atherosclerotic heart disease of native coronary artery without angina pectoris; I50.812 Chronic right heart failure; I48.0 Paroxysmal atrial fibrillation; E11.22 Type 2 diabetes mellitus with diabetic chronic kidney disease; N18.3 Chronic kidney disease, stage 3 (moderate); I13.0 Hypertensive heart and chronic kidney disease with heart failure and stage 1 through stage 4 chronic kidney disease, or unspecified chronic kidney disease | CPT/HCPCS: 99214 ==

== ENCOUNTER 2020-03-04 10:47 | Outpatient (REF) | payer MEDICARE, MEDICAID, SELFPAY ==
[2020-03-04 11:29] LABS: ALT 23 U/L (14-59); AST 16 U/L (15-37); Albumin 3.3 g/dL (3.4-5.0); Alkaline Phosphatase 78 U/L (46-116); Anion Gap 6.6 mmol/L (3-11); BUN 54 mg/dL (7-18); Bilirubin, Total 0.4 mg/dL (0.2-1.0); CO2 36.4 mmol/L (21.0-32.0); CREATININE 2.18 mg/dL (0.55-1.02); Calcium 9.1 mg/dL (8.5-10.1); Chloride 100 mmol/L (98-107); Glucose 98 mg/dL (74-106); Magnesium 2.1 mg/dL (1.8-2.4); NT-proBNP 976 pg/mL (<300); Potassium 3.9 mmol/L (3.5-5.1); Sodium 143 mmol/L (136-145); Total Protein 6.9 g/dL (6.4-8.2)
[2020-03-04 11:34] LABS: Abs Immature Grans 0.04 k/cumm (0.0-0.09); Absolute Basophil Count 0.06 k/cumm (0.0-0.2); Absolute Eosinophil Count 1.02 k/cumm (0.0-0.7); Absolute Lymphocyte Count 1.91 k/cumm (1.2-3.4); Absolute Monocyte Count 0.97 k/cumm (0.11-0.7); Absolute Neutrophil Count 7.25 k/cumm (1.2-6.7); Basophils % 0.5; Eosinophils % 9.1; Immature Grans % 0.4 %; Mean Corp. HGB Concentration 28.6 g/dL (32.0-36.0); Mean Corpuscular Hemoglobin 23.7 pg (27.0-33.0); Mean Corpuscular Volume 82.9 fL (80-95); Mean Platelet Volume 9.8 fL (8.0-11.0); Monocytes % 8.6; Neutrophils % 64.4; Platelet Count 520 x1000/uL (130-400); RBC 4.22 m/cumm (4.00-5.20); White Blood Cell Count 11.26 k/cumm (4.4-10.8)
== END 2020-03-04 11:07 ==
LOC: LBN 10:47
PROVIDERS: PCP Family Medicine; Visit Provider Internal Medicine Cardiovascular Disease
DX: I50.33 Acute on chronic diastolic (congestive) heart failure (principal)
CPT/HCPCS: 80053; 83735; 83880; 85025

== ENCOUNTER 2020-03-11 13:04 | Outpatient (REF) | payer MEDICARE, MEDICAID, SELFPAY ==
[2020-03-11 13:09] LABS: Abs Immature Grans 0.03 k/cumm (0.0-0.09); Absolute Basophil Count 0.07 k/cumm (0.0-0.2); Absolute Eosinophil Count 1.24 k/cumm (0.0-0.7); Absolute Lymphocyte Count 1.55 k/cumm (1.2-3.4); Absolute Monocyte Count 0.86 k/cumm (0.11-0.7); Basophils % 0.7; Eosinophils % 11.8; HCT 34.6 % (36.0-46.0); HGB 9.5 g/dL (12.0-15.5); Immature Grans % 0.3 %; Lymphocytes % 14.7; Mean Corp. HGB Concentration 27.5 g/dL (32.0-36.0); Mean Corpuscular Hemoglobin 22.8 pg (27.0-33.0); Mean Corpuscular Volume 83.2 fL (80-95); Mean Platelet Volume 10.2 fL (8.0-11.0); Monocytes % 8.2; Neutrophils % 64.3; Platelet Count 452 x1000/uL (130-400); RBC 4.16 m/cumm (4.00-5.20); RBC Distribution Width 16.6 % (11.7-14.6); White Blood Cell Count 10.55 k/cumm (4.4-10.8)
[2020-03-11 13:27] LABS: ALT 19 U/L (14-59); AST 15 U/L (15-37); Albumin 3.1 g/dL (3.4-5.0); Alkaline Phosphatase 66 U/L (46-116); BUN 52 mg/dL (7-18); Bilirubin, Total 0.4 mg/dL (0.2-1.0); CREATININE 2.46 mg/dL (0.55-1.02); Calcium 8.4 mg/dL (8.5-10.1); Chloride 102 mmol/L (98-107); Estimated GFR 19.57 (mL/min/1.73m2); Glucose 162 mg/dL (74-106); Magnesium 1.5 mg/dL (1.8-2.4); NT-proBNP 666 pg/mL (<300); Potassium 3.6 mmol/L (3.5-5.1); Sodium 143 mmol/L (136-145); Total Protein 6.5 g/dL (6.4-8.2)
== END 2020-03-11 13:24 ==
LOC: LBN 13:04
PROVIDERS: PCP Family Medicine; Visit Provider Family Medicine
DX: I50.33 Acute on chronic diastolic (congestive) heart failure (principal); N18.3 Chronic kidney disease, stage 3 (moderate)
CPT/HCPCS: 80053; 83735; 83880; 85025

== ENCOUNTER 2020-03-11 20:38 | Emergency (ER) | payer MEDICARE, MEDICAID, SELFPAY ==
[2020-03-11] VITALS (8 sets, daily range): BP systolic 100–120; BP diastolic 50–65; PULSE 66–106; RESP 17–25; TEMP 36.7; O2SAT 97–100
--- NOTE | 2020-03-11 21:03 | ED.GENADUL_ITS ---
Discharge Plan Disposition Patient Disposition: HOME Condition: Stable Discharge Details Chief Complaint: Abd Prob Clinical Impression: Epigastric abdominal pain Primary Care Provider: Laisha Mcmahon ED Provider: Clarence Meek Home Meds and New Rx's Prescriptions: Continued (DME) lancets 25 gauge misc See Dose Instructions .ROUTE .MEDSUPPLY Qty: 100 RF: 5 (DME) lancets [OneTouch Delica Lancets] 33 gauge misc See Dose Instructions .ROUTE DAILY Qty: 100 RF: 0 B-complex with vitamin C [Super B Complex-Vitamin C] Tablet 1 tab PO DAILY RF: 0 (DME) pen needle, diabetic [1st Tier Unifine Pentips] 31 gauge x 1/4 needle See Dose Instructions .ROUTE .MEDSUPPLY Qty: 450 RF: 5 ropinirole 2 mg tablet 2 mg PO QPM PRN (Reason: restless leg(s)) Qty: 90 RF: 5 gabapentin 600 mg tablet 600 mg PO TID Qty: 270 RF: 12 atorvastatin 40 mg tablet 40 mg PO DAILY Qty: 90 RF: 6 duloxetine 60 mg capsule,delayed release(DR/EC) 60 mg PO DAILY Qty: 90 RF: 12 estradiol [Estrace] 0.01 % (0.1 mg/gram) cream 1 gm VG DAILY Qty: 42.5 RF: 4 torsemide 100 mg tablet 100 mg PO DAILY Qty: 180 RF: 4 metoprolol succinate 100 mg tablet extended release 24 hr 100 mg PO DAILY Qty: 90 RF: 3 Basaglar KwikPen U-100 Insulin 100 unit/mL (3 mL) insulin pen 35 unit SC BID Qty: 90 RF: 4 diclofenac sodium 1 % gel 4 gm TP QID PRN (Reason: for low back pain) 6 Days Qty: 100 RF: 11 allopurinol 100 mg tablet 100 mg PO DAILY Qty: 90 RF: 12 baclofen 10 mg tablet 10 mg PO TID Qty: 90 RF: 4 folic acid 1 mg tablet 1 mg PO DAILY Qty: 90 RF: 5 nystatin 100,000 unit/gram cream 1 applic Topical BID PRN (Reason: yeast) Qty: 30 RF: 2 meclizine 12.5 mg tablet 25 mg PO TID PRN (Reason: dizziness) Qty: 60 RF: 3 ergocalciferol (vitamin D2) [Vitamin D2] 50,000 unit capsule 50,000 unit PO -- Qty: 36 RF: 4 epinephrine [EpiPen 2-Erick] 0.3 mg/0.3 mL auto-injector 0.3 mg IM ONCE Qty: 2 RF: 10 budesonide-formoterol [Symbicort] 160-4.5 mcg/actuation HFA aerosol inhaler 2 puff IH BID Qty: 10.2 RF: 12 potassium chloride 20 mEq tablet extended release 20 meq PO DAILY Qty: 90 RF: 5 Hold Instructions: Home Medication placed on hold at Doctor's office Januvia 25 mg tablet 25 mg PO DAILY Qty: 90 RF: 4 (DME) blood sugar diagnostic [Blood Glucose Test] Strip See Dose Instructions .ROUTE .MEDSUPPLY Qty: 300 RF: 5 insulin aspart U-100 [Novolog Flexpen U-100 Insulin] 100 unit/mL (3 mL) insulin pen 15 unit SC TID Qty: 30 RF: 5 omeprazole 40 mg capsule,delayed release(DR/EC) 40 mg PO BID Qty: 180 RF: 4 polyethylene glycol 3350 [Miralax] 17 gram Powder In Packet 1 g PO PRN PRNRF: 0 magnesium hydroxide [Milk of Magnesia] 400 mg/5 mL Suspension 30 ml PO PRN PRN (Reason: Constipation) RF: 0 aspirin [Aspir-81] 81 mg Tablet,Delayed Release (Dr/Ec) 81 mg PO DAILY Qty: 30 RF: 0 acetaminophen [Tylenol Extra Strength] 500 mg Tablet 1,000 mg PO Q8H PRN PRN (Reason: Pain) Qty: 0 RF: 0 albuterol sulfate 2.5 mg /3 mL (0.083 %) Solution For Nebulization 2.5 mg INHALATION Q2H PRN PRN (Reason: shortness of breath or wheezing) Qty: 0 RF: 0 calcium [id number]-[id number] vitaliy 133 mg calcium -133 unit-67 mg Capsule 2 cap PO DAILY RF: 0 metolazone 5 mg tablet 5 mg PO DAILY RF: 0 Discharge Instructions Instructions: Epigastric Pain (ED) Additional Instructions: At this time your laboratory values and imaging does not reveal any obvious emergent process. We discussed options, you would prefer to be discharged home. I believe this to be a reasonable option. We discussed the importance of outpatient primary care follow-up, outpatient surgical referral may be indicated if symptoms persist. Endoscopy may be required for more definitive diagnosis of your symptoms. Please watch for new or worsening symptoms and return to the ER for any concerns. Medical Decision Making This is a 69-year-old female with a rather significant past medical history who presents complaining of constant epigastric burning that been present for 2 days and feels superficial. She reports feeling slightly bloated. She denies any chest pain, cough, worsening shortness of breath, deep abdominal pain, nausea, vomiting, change in appetite, dysuria, hematuria, diarrhea or constipation. She does not believe that her pain is digestion. Given her age and multiple comorbidities I do believe obtaining routine laboratory values including EKG, troponin, BNP, chest x-ray is reasonable. We will give a single GI cocktail to see if she gets any resolution of her symptoms. She does report it feels as though this is on her skin, I see no rash whatsoever. Very well could be early shingles but from her description it does past the midline point. No evidence of cellulitis. Again, she denies chest pain or shortness of breath. Extremely low suspicion of ACS. Given the duration of her symptoms, being constant, I do believe a single troponin is sufficient for a rapid cardiac rule out. Laboratory values reveal a white blood cell count of 11.04 hemoglobin 9.9 hematocrit 35.4, platelet count 493. Sodium 142, potassium 3.2. Will give 40 p.o. potassium. Creatinine 2.18 with a GFR of 22.5. This appears to be near baseline. Glucose 127. Troponin is less than 0.05 and BNP is 794. This is near her baseline, no clinical signs of florid CHF exacerbation. Urinalysis is unremarkable. Chest x-ray read by virtual radiology as no acute thoracic process. No change from 01-05-20. There is evidence of COPD. Abdominal and pelvic CT without contrast given her GFR reveals no acute processes identified. Moderate coronary artery calcification in the RCA distribution. Bilateral adrenal adenomas noted, no further imaging evaluation is required. Mild diverticulosis involving the distal colon without evidence of acute diverticulitis. On reevaluation heart rate in the 60s, patient is sleeping comfortably, wakes easily to verbal stimuli. We discussed her work-up here in the ER. She reports that the GI cocktail made no difference in her symptoms. She appears well, nontoxic, no acute distress, abdomen is certainly nonsurgical. I explained to her that I did not have any clear etiology of her symptoms and she was instructed to visualize her stomach to be sure a rash was not developing. No evidence of acute GI, pulmonary, cardiac etiology. Patient requests to be discharged home and feels as though she is safe to do so. I did explain to her given her age, multiple, produce, lack of clear etiology we could discuss options with our hospitalist for potential observation admission however she does not want this. I do believe this to be a reasonable plan however I stressed the importance of adequate outpatient follow-up. She was also encouraged to return to the ER for new or worsening symptoms. I encouraged her to contact her primary care provider tomorrow for prompt outpatient reevaluation. If symptoms persist outpatient work-up may be indicated, including referral to surgical team for possible endoscopy. Patient is comfortable with this plan and has additional questions or concerns upon discharge. Medical Records Medical records reviewed: Yes I reviewed the patient's medical records. Lab Data Lab results reviewed: Yes I reviewed the patient's lab results. Lab results narrative: Laboratory Tests Range/Units 03/11/20 03/11/20 03/11/20 21:00 21:22 21:31 WBC (4.4-10.8) k/cumm 11.04 H RBC (4.00-5.20) m/cumm 4.30 Hgb (12.0-15.5) g/dL 9.9 L Hct (36.0-46.0) % 35.4 L MCV (80-95) fL 82.3 MCH (27.0-33.0) pg 23.0 L MCHC (32.0-36.0) g/dL 28.0 L RDW (11.7-14.6) % 16.7 H Plt Count (130-400) x1000/uL 493 H MPV (8.0-11.0) fL 9.2 Immature Gran % % 0.3 Neutrophils % 58.1 Lymphocytes % 21.1 Monocytes % 7.3 Eosinophils % 12.5 Basophils % 0.7 Absolute Neutrophils (1.2-6.7) k/cumm 6.41 Absolute Lymphocytes (1.2-3.4) k/cumm 2.33 Absolute Monocytes (0.11-0.7) k/cumm 0.81 H Absolute Eosinophils (0.0-0.7) k/cumm 1.38 H Absolute Basophils (0.0-0.2) k/cumm 0.08 Sodium (136-145) mmol/L 142 Potassium (3.5-5.1) mmol/L 3.2 L Chloride (98-107) mmol/L 100 Carbon Dioxide (21.0-32.0) mmol/L 34.6 H Anion Gap (3-11) mmol/L 7.4 BUN (7-18) mg/dL 52 H Creatinine (0.55-1.02) mg/dL 2.18 H Estimated GFR/1.73 m2 (mL/min/1.73m2) 22.50 Glucose (74-106) mg/dL 127 H Calcium (8.5-10.1) mg/dL 8.4 L Total Bilirubin (0.2-1.0) mg/dL 0.3 AST (15-37) U/L 14 L ALT (14-59) U/L 19 Alkaline Phosphatase (46-116) U/L 68 Troponin I (<0.06) ng/mL < 0.05 NT-Pro-B Natriuret Pep (<300) pg/mL Total Protein (6.4-8.2) g/dL 7.5 Albumin (3.4-5.0) g/dL 3.2 L Lipase (73-393) U/L Urine Color (Yellow) Yellow Urine Clarity (Clear) Clear Urine pH (5-8) 6.5 Ur Specific Liberty (1.005-1.025) 1.015 Urine Protein (Negative) mg/dL Negative Urine Ketones (Negative) mg/dL Negative Urine Blood (Negative) Negative Urine Nitrite (Negative) Negative Urine Bilirubin (Negative) Negative Urine Urobilinogen (Up TO 0.2) EU/dL 0.2 Ur Leukocyte Esterase (Negative) Negative Urine Glucose (Negative) mg/dL Negative Range/Units 03/11/20 03/11/20 21:31 21:31 WBC (4.4-10.8) k/cumm RBC (4.00-5.20) m/cumm Hgb (12.0-15.5) g/dL Hct (36.0-46.0) % MCV (80-95) fL MCH (27.0-33.0) pg MCHC (32.0-36.0) g/dL RDW (11.7-14.6) % Plt Count (130-400) x1000/uL MPV (8.0-11.0) fL Immature Gran % % Neutrophils % Lymphocytes % Monocytes % Eosinophils % Basophils % Absolute Neutrophils (1.2-6.7) k/cumm Absolute Lymphocytes (1.2-3.4) k/cumm Absolute Monocytes (0.11-0.7) k/cumm Absolute Eosinophils (0.0-0.7) k/cumm Absolute Basophils (0.0-0.2) k/cumm Sodium (136-145) mmol/L Potassium (3.5-5.1) mmol/L Chloride (98-107) mmol/L Carbon Dioxide (21.0-32.0) mmol/L Anion Gap (3-11) mmol/L BUN (7-18) mg/dL Creatinine (0.55-1.02) mg/dL Estimated GFR/1.73 m2 (mL/min/1.73m2) Glucose (74-106) mg/dL Calcium (8.5-10.1) mg/dL Total Bilirubin (0.2-1.0) mg/dL AST (15-37) U/L ALT (14-59) U/L Alkaline Phosphatase (46-116) U/L Troponin I (<0.06) ng/mL NT-Pro-B Natriuret Pep (<300) pg/mL 794 H Total Protein (6.4-8.2) g/dL Albumin (3.4-5.0) g/dL Lipase (73-393) U/L 230 Urine Color (Yellow) Urine Clarity (Clear) Urine pH (5-8) Ur Specific Liberty (1.005-1.025) Urine Protein (Negative) mg/dL Urine Ketones (Negative) mg/dL Urine Blood (Negative) Urine Nitrite (Negative) Urine Bilirubin (Negative) Urine Urobilinogen (Up TO 0.2) EU/dL Ur Leukocyte Esterase (Negative) Urine Glucose (Negative) mg/dL ECG Data Attestation: I personally reviewed and interpreted this ECG (s) as follows: Interpretation: EKG performed at 2050. Reviewed and interpreted with Dr. Schulz. Sinus rhythm, ventricular rate of 70. No STEMI HPI General Mode of arrival: EMS . Date/Time Provider Initiated Documentation: 03/11/20 20:47 . Limitations to Documentation: no limitations . Information obtained by: patient . HPI Narrative: This is a 69-year-old female with extensive past medical history including CAD, cardiac bypass, and STEMI, DVT, chronic renal disease, shortness of breath, CHF, paroxysmal atrial fibrillation, pulmonary hypertension, anemia, diabetes, hyperlipidemia, hypertension, presenting with epigastric burning, constant for the past 2 days. She feels as though her stomach is bloated. She denies any recent illness or trauma, fever, headache, abdominal pain, nausea, vomiting, diarrhea, constipation, dysuria, hematuria. Denies numbness, tingling, weakness. She reports baseline shortness of breath, no different at this time. She later describes her abdominal burning to me as though it is on the skin and very superficial. Reports it does not feel like heartburn. Related Data Home Medications Medication Instructions Recorded Confirmed folic acid 1 mg tablet 1 mg PO DAILY #90 tab 05/21/18 03/11/20 nystatin 100,000 unit/gram topical 1 applic TOPICAL BID PRN #30 gm 12/04/18 03/11/20 cream meclizine 12.5 mg tablet 25 mg PO TID PRN #60 tab 12/17/18 03/11/20 lancets 33 gauge #100 each 12/18/18 03/03/20 magnesium hydroxide [Milk of 30 ml PO PRN PRN 01/15/19 03/11/20 Magnesia] polyethylene glycol 3350 [Miralax] 1 g PO PRN PRN 01/15/19 03/11/20 acetaminophen [Tylenol Extra 1,000 mg PO Q8H PRN PRN #0 tab 01/22/19 03/11/20 Strength] aspirin [Aspir-81] 81 mg PO DAILY #30 tab 01/22/19 03/11/20 lancets 25 gauge #100 each 01/29/19 03/03/20 ergocalciferol (vitamin D2) 1,250 50,000 unit PO M-W-F #36 tab-cap 01/30/19 03/11/20 mcg (50,000 unit) capsule albuterol sulfate 2.5 mg INHALATION Q2H PRN PRN #0 ml 02/12/19 03/11/20 epinephrine 0.3 mg/0.3 mL 0.3 mg IM ONCE #2 dose 04/29/19 03/11/20 injection, auto-injector budesonide-formoterol HFA 160 2 puff IH BID #10.2 gm 05/21/19 03/11/20 mcg-4.5 mcg/actuation aerosol inhaler allopurinol 100 mg tablet 100 mg PO DAILY #90 tab-cap 08/26/19 03/11/20 B-complex with vitamin C 1 tab PO DAILY 09/19/19 03/11/20 atorvastatin 40 mg tablet 40 mg PO DAILY #90 tab-cap 10/31/19 03/11/20 duloxetine 60 mg capsule,delayed 60 mg PO DAILY #90 tab-cap 10/31/19 03/11/20 release gabapentin 600 mg tablet 600 mg PO TID #270 tab-cap 10/31/19 03/11/20 pen needle, diabetic 31 gauge x #450 each 10/31/19 03/03/2009/14 ropinirole 2 mg tablet 2 mg PO QPM PRN #90 tab 10/31/19 03/11/20 potassium chloride 20 mEq 20 meq PO DAILY #90 tab 11/07/19 03/11/20 tablet,extended release baclofen 10 mg tablet 10 mg PO TID #90 tab 12/04/19 03/11/20 sitagliptin 25 mg tablet 25 mg PO DAILY #90 tab 12/17/19 03/11/20 blood sugar diagnostic #300 each 12/24/19 03/03/20 insulin aspart U-100 100 unit/mL 15 unit SC TID #30 ml 12/24/19 03/11/20 (3 mL) subcutaneous pen estradiol 1 gm VG DAILY #42.5 gm 01/23/20 03/11/20 diclofenac sodium 1 % topical gel 4 gm TP QID PRN 6 Days #100 gm 02/06/20 03/11/20 omeprazole 40 mg capsule,delayed 40 mg PO BID #180 cap 02/11/20 03/03/20 release insulin glargine 100 unit/mL (3 35 unit SC BID #90 ml 02/25/20 03/11/20 mL) subcutaneous pen metoprolol succinate 100 mg 100 mg PO DAILY #90 tab 06/16/20 07/01/20 tablet,extended release 24 hr torsemide 100 mg tablet 100 mg PO DAILY #180 tab 02/25/20 03/11/20 calcium [id number] vitaliy 2 cap PO DAILY 03/11/20 03/11/20 metolazone 5 mg PO DAILY 03/11/20 03/11/20 Previous Rx's Medication Instructions Recorded folic acid 1 mg tablet 1 mg PO DAILY #90 tab 05/21/18 nystatin 100,000 unit/gram topical 1 applic TOPICAL BID PRN #30 gm 12/04/18 cream meclizine 12.5 mg tablet 25 mg PO TID PRN #60 tab 12/17/18 lancets 33 gauge #100 each 12/18/18 acetaminophen [Tylenol Extra 1,000 mg PO Q8H PRN PRN #0 tab 01/22/19 Strength] aspirin [Aspir-81] 81 mg PO DAILY #30 tab 01/22/19 lancets 25 gauge #100 each 01/29/19 ergocalciferol (vitamin D2) 1,250 50,000 unit PO M-W-F #36 tab-cap 01/30/19 mcg (50,000 unit) capsule albuterol sulfate 2.5 mg INHALATION Q2H PRN PRN #0 ml 02/12/19 epinephrine 0.3 mg/0.3 mL 0.3 mg IM ONCE #2 dose 04/29/19 injection, auto-injector budesonide-formoterol HFA 160 2 puff IH BID #10.2 gm 05/21/19 mcg-4.5 mcg/actuation aerosol inhaler allopurinol 100 mg tablet 100 mg PO DAILY #90 tab-cap 08/26/19 atorvastatin 40 mg tablet 40 mg PO DAILY #90 tab-cap 10/31/19 duloxetine 60 mg capsule,delayed 60 mg PO DAILY #90 tab-cap 10/31/19 release gabapentin 600 mg tablet 600 mg PO TID #270 tab-cap 10/31/19 pen needle, diabetic 31 gauge x #450 each 10/31/1909/14 ropinirole 2 mg tablet 2 mg PO QPM PRN #90 tab 10/31/19 potassium chloride 20 mEq 20 meq PO DAILY #90 tab 11/07/19 tablet,extended release baclofen 10 mg tablet 10 mg PO TID #90 tab 12/04/19 sitagliptin 25 mg tablet 25 mg PO DAILY #90 tab 12/17/19 blood sugar diagnostic #300 each 12/24/19 insulin aspart U-100 100 unit/mL 15 unit SC TID #30 ml 12/24/19 (3 mL) subcutaneous pen estradiol 1 gm VG DAILY #42.5 gm 01/23/20 diclofenac sodium 1 % topical gel 4 gm TP QID PRN 6 Days #100 gm 02/06/20 omeprazole 40 mg capsule,delayed 40 mg PO BID #180 cap 02/11/20 release insulin glargine 100 unit/mL (3 35 unit SC BID #90 ml 02/25/20 mL) subcutaneous pen metoprolol succinate 100 mg 100 mg PO DAILY #90 tab 02/25/20 tablet,extended release 24 hr torsemide 100 mg tablet 100 mg PO DAILY #180 tab 02/25/20 Allergies Allergy/AdvReac Type Severity Reaction Status Date / Time oxycodone Allergy Severe Psychosis Unverified 03/03/20 10:22 venom-honey bee Allergy Severe ANAPHYLAXIS Verified 03/03/20 10:22 adhesive Allergy BLISTERS Verified 03/03/20 10:22 General Stated Complaint: Abd Prob STEPHANIE: 3 Review of Systems Constitutional Constitutional: Denies fatigue, Denies fever(s) and Denies weakness Eyes Eyes: Denies change in vision ENT Ears, Nose, Mouth, and Throat: Denies sore throat Cardiovascular Cardiovascular: Denies chest pain and Reports dyspnea (Chronic) Respiratory Respiratory: Denies cough and Reports dyspnea (Chronic) Gastrointestinal Gastrointestinal: Denies abdominal pain, Denies melena, Denies hematochezia, Denies diarrhea, Denies nausea and Denies vomiting Genitourinary Genitourinary: Denies dysuria Musculoskeletal Musculoskeletal: Reports back pain (Chronic), Denies numbness and Denies tingling Integumentary/Breasts Skin/Breast: Denies rash Neurologic Neurologic: Denies numbness, Denies tingling and Denies weakness Endocrine Endocrine: Denies fatigue Hematologic/Lymphatic Hematologic/Lymphatic: Denies easy bleeding and Reports easy bruising [facility] Medical History Abnormal mammography (Resolved) 08/10/06 Acute kidney injury superimposed on chronic kidney disease (Inactive) Altered mental status (Resolved) Anemia (Chronic) Ankle pain (Resolved 03/13/14) Atrial fibrillation (Chronic) paroxysmal, onset 2015, anticoagulated w/ Xarelto; anticoagulation discontinued after left atrial appendage excision 01/03/2019 Atrial fibrillation Atrial flutter (Inactive) Carpal tunnel syndrome Carpal tunnel syndrome (Resolved 08/10/06) BILATERAL R S/P SURGERY Cervical disc disorder with myelopathy (Resolved 08/21/08) S/P surgery x 2 Cervical spondylosis with myelopathy Chest pain (Resolved) Neg Stress test Chronic obstructive lung disease (Chronic) CKD (chronic kidney disease) stage 3, GFR 30-59 ml/min (Chronic) Cr about 2.5 Constipation (Inactive) Dehydration (Inactive) Diabetes mellitus (Chronic) Diabetes mellitus (Resolved) 09/20/10 Positive Microalbumin Diastolic CHF (Inactive) Dysuria (Inactive) Essential hypertension (Chronic) Folate deficiency (Resolved 02/15/16) Gout Gout (Chronic 07/06/11) Gram-positive bacteremia (Resolved) HAP (hospital-acquired pneumonia) (Resolved 01/15/19) HCAP (healthcare-associated pneumonia) (Resolved) Hepatomegaly (Resolved) 06/10/04 Hip joint inflamed (Resolved 09/03/15) Hip pain, left (Chronic) Hip pain, right (Chronic) Hyperglycemia (Inactive) Hyperlipidemia (Chronic 08/10/00) Hypertension Hypomagnesemia (Inactive) Hypoxia (Inactive) Low back pain (Resolved 04/10/03) DISC HERNIATION L4. MULTILEVEL DJD/SPINAL STENOSIS BY MRI; S/P surgery Lump in neck (Resolved) Menopausal syndrome (Resolved) 07/11/03 Muscle fatigue (Resolved) 03/04/13 PAF (paroxysmal atrial fibrillation) (Chronic) Posterior tibial tendon dysfunction (Resolved) 02/03/16 Postmenopausal bleeding (Resolved) neg. endometrial biopsy Postoperative wound dehiscence (Resolved 12/23/15) Prerenal azotemia (Inactive) Primary osteoarthritis of left hip (Resolved 09/17/15) Pulmonary hypertension (Chronic) Renal impairment (Resolved 07/11/03) ADRENAL MASS. F/U W/ KINLAW positive microalbumin Restless leg syndrome (Chronic) Rotator cuff syndrome (Resolved 08/01/09) Shingles (Resolved) Smoker (Resolved 06/30/16) 01/17/17 1-2 cig/wk Spinal stenosis of lumbar region (Chronic 02/15/16) Spinal stenosis of lumbar region at multiple levels Tarsal tunnel syndrome (Resolved) 06/11/13 Tarsal tunnel syndrome (Resolved 06/11/13) Trochanteric bursitis (Resolved) 03/18/13 Upper respiratory tract infection (Resolved 08/03/15) UTI (urinary tract infection) (Inactive) UTI (urinary tract infection) (Inactive) Vitamin D deficiency Vitamin D deficiency (Resolved) Weakness (Inactive) Surgical History Arthrodesis right 2nd toe Cataract (Inactive 01/07/14) FOLLOWED BY [employer] cervical repair (~10/2008) C6-C7 DISK; RECURRENT SURGERY Cholecystectomy (07/31/13) Endometrial Biopsy NEG H/O arthrodesis (Resolved) right second toe H/O Spinal surgery (Resolved) multiple spine surgeries; low back x 2; She had multilevel DJD and spinal stenosis; disc herniation. 2008-cervical repair; C6-C7 disc; recurrent surgery. History of bilateral tubal ligation (Resolved) 09/11/80 History of gynecologic surgery (Resolved) endometrial biopsy-neg History of hip surgery (Resolved) 11/10/15 left hip arthroplasty 12/04/15-placement of wound VAC to left hip History of orthopedic surgery (Resolved) 09/11/97 tarsal tunnel release Left eye surgery 12/31/17 Ligation of fallopian tube (~1980) Open Carpal Tunnel release Right wrist surgery 10/26/17 Rotator Cuff Repair (~1980) S/P CABG (coronary artery bypass graft) (Chronic 01/03/19) 4 vessel CABG and [place] appendage [place], [place] Nav [place] [facility] [place] S/P carpal tunnel release (Resolved) S/P cholecystectomy (Resolved) 09/11/12 S/P rotator cuff repair (Resolved) 09/11/80 SPINE SURGERY Multiple spine surgeries, low back x 2. She had multilevel DJD and spinal st enosis, disc herniation Status post incision and drainage (Resolved) 12/04/15 left hip surgical wound dehiscence and infection tarsal tunnel release (~1997) Total replacement of hip [facility]; LEFT HIP Family History Mother Diabetes Essential hypertension Personal history of malignant neoplasm KIDNEY/LIVER/BRAIN Heart disease Hyperlipidemia Stroke Asthma Father Diabetes Essential hypertension Personal history of malignant neoplasm BONE Heart disease Asthma Sister Diabetes Essential hypertension Depression Heart disease Asthma Grandfather No problems noted. Grandfather No problems noted. Grandmother Personal history of malignant neoplasm UTERINE Grandmother Diabetes Aunt Personal history of malignant neoplasm BREAST Brother Hyperlipidemia Stroke Sister Asthma Son Asthma Daughter Depression Asthma Daughter Asthma Daughter Depression Neoplasm Asthma Brother No problems noted. 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 Pets and animals: Yes Pets and animals: cat(s), dog(s) and horse(s) What type of physical activity do you participate in: none Saniya/Episcopal: Muslim Special saniya needs: No Do you feel safe at home: Yes Do you feel safe in your relationship?: Yes Exam Const General: cooperative, healthy appearing, comfortable and no acute distress Orientation: alert, awake and oriented x3 HENMT Head: normal to inspection, normocephalic and atraumatic Face and sinus: normal facial exam Mouth: moist mucous membranes Throat: posterior oropharynx normal Eyes Conjunctivae: conjunctivae normal Sclera: sclerae normal Neck Neck: normal visual inspection, full ROM, trachea midline, supple and nontender Resp Effort & Inspection: normal respiratory effort and able to speak in complete sentences Auscultation: diminished lung sounds bilaterally in the lower lung chan Cardio Rate: tachycardic (102) Rhythm: regular rhythm GI Inspection: obesity Palpation: soft, not firm and tender in the epigastrum and in the LUQ Auscultation: normal bowel sounds Skin General skin exam: no rashes or lesions noted Neuro General: patient alert, patient awake, patient oriented x3, moves all extremities and no focal motor deficits Speech: speech normal Sensory Exam: no sensory deficits noted Extrem General: normal to inspection, full ROM, capillary refill normal, no calf tenderness and edema Laterality: bilateral (1+ bilateral lower extremities, patient reports baseline) Psych Appearance: grossly normal Mental Status: mental status grossly normal Course Vital Signs Vital signs: Vital Signs Temperature 36.7 C 03/11/20 20:41 Pulse 74 03/11/20 20:41 Respiratory Rate 25 H 03/11/20 20:41 Blood Pressure 120/55 L 03/11/20 20:41 Pulse Oximetry 97 03/11/20 20:41 Temperature 36.7 C 03/11/20 20:41 Temperature Source Skin 03/11/20 20:41 Pulse 74 03/11/20 20:41 Respiratory Rate 25 H 03/11/20 20:41 Respiratory Effort 03/11/20 20:45 Blood Pressure 120/55 L 03/11/20 20:41 Pulse Oximetry 97 03/11/20 20:41 Oxygen Delivery Method Room Air 03/11/20 20:41 Oxygen Flow Rate 0 03/11/20 20:41 Pain Level 9 03/11/20 20:41
[2020-03-11 21:34] LABS: Bilirubin Negative (Negative); Blood Negative (Negative); Clarity Clear (Clear); Glucose Negative (Negative); Ketones Negative (Negative); Leukocyte Esterase Negative (Negative); Nitrite Negative (Negative); Specific Gravity 1.015 (1.005-1.025); Urobilinogen 0.2 EU/dL (Up TO 0.2); pH 6.5 (5-8)
[2020-03-11 21:40] LABS: Abs Immature Grans 0.03 k/cumm (0.0-0.09); Absolute Basophil Count 0.08 k/cumm (0.0-0.2); Absolute Eosinophil Count 1.38 k/cumm (0.0-0.7); Absolute Lymphocyte Count 2.33 k/cumm (1.2-3.4); Absolute Monocyte Count 0.81 k/cumm (0.11-0.7); Absolute Neutrophil Count 6.41 k/cumm (1.2-6.7); Basophils % 0.7; Eosinophils % 12.5; HCT 35.4 % (36.0-46.0); HGB 9.9 g/dL (12.0-15.5); Immature Grans % 0.3 %; Lymphocytes % 21.1; Mean Corpuscular Volume 82.3 fL (80-95); Mean Platelet Volume 9.2 fL (8.0-11.0); Monocytes % 7.3; Neutrophils % 58.1; Platelet Count 493 x1000/uL (130-400); RBC Distribution Width 16.7 % (11.7-14.6); White Blood Cell Count 11.04 k/cumm (4.4-10.8)
[2020-03-11 21:47] LABS: Lipase 230 U/L (73-393)
[2020-03-11 21:55] LABS: ALT 19 U/L (14-59); AST 14 U/L (15-37); Albumin 3.2 g/dL (3.4-5.0); Alkaline Phosphatase 68 U/L (46-116); Anion Gap 7.4 mmol/L (3-11); BUN 52 mg/dL (7-18); Bilirubin, Total 0.3 mg/dL (0.2-1.0); CO2 34.6 mmol/L (21.0-32.0); CREATININE 2.18 mg/dL (0.55-1.02); Calcium 8.4 mg/dL (8.5-10.1); Chloride 100 mmol/L (98-107); Glucose 127 mg/dL (74-106); Potassium 3.2 mmol/L (3.5-5.1); Sodium 142 mmol/L (136-145); Total Protein 7.5 g/dL (6.4-8.2)
[2020-03-11 21:56] LABS: Troponin I < 0.05 ng/mL (<0.06)
[2020-03-11 22:19] LABS: NT-proBNP 794 pg/mL (<300)
--- NOTE | 2020-03-11 23:00 | DI.CT_ITS ---
EXAM: CT ABDOMEN PELVIS WO CLINICAL HISTORY: Morbidly obese, epigastric pain, bloating. TECHNIQUE: Imaging Protocol: Axial computed tomography images with coronal and sagittal reformatted images were created and reviewed. COMPARISON: CT CT ABDOMEN PELVIS WO from 09/06/2019 FINDINGS: ABDOMEN: Lung Bases: Normal where visualized. Moderate coronary artery calcification. Liver: Normal density. No measurable mass. Hepatomegaly. Gallbladder and biliary tract: Status post cholecystectomy. Pancreas: Normal density, no abnormal calcifications or inflammatory process. Mild pancreatic atrophy . Spleen: Normal. Kidneys: Normal size, contour and axis.No radiodense stones or obstructive uropathy. Stable right adia al cyst. Adrenal glands: Stable bilateral adrenal masses likely reflecting adenoma. Lymph nodes: Within normal limits. Abdominal Aorta: Abdominal portion non-dilated. Atherosclerosis. PELVIS: Bladder:Symmetric distention, no gross wall thickening. Bowel: No obstruction or bowel wall thickening. Colonic diverticulosis but no evidence of acute diver ticulitis. Normal appendix is visualized. Peritoneal cavity: No ascites, collection or mesenteric inflammatory response Reproductive organs: Within normal limits. Bones: Multilevel degenerative changes in the lumbar spine. Postsurgical changes in the lumbar spine status post laminectomies. Status post left hip arthroplasty. Soft Tissues: Within normal limits. IMPRESSION: No acute process in the abdomen and pelvis. RADIATION DOSE DELIVERED: Total DLP DATA REPOSITORY: All CT scans at this facility are submitted to the National Radiology Data Registry (NRDR) Dose Index Registry (DIR) with the [employer] (A[employer]). RADIATION OPTIMIZATION: All CT scans at this facility use at least one of these dose optimization te chniques: automated exposure control; mA and/or kV adjustment per patient size (includes targeted exa ms where dose is matched to clinical indication); or iterative reconstruction.
--- NOTE | 2020-03-11 23:02 | DI.RAD_ITS ---
EXAM: XR CHEST 2V PA LATERAL CLINICAL HISTORY: epigastric pain TECHNIQUE: 2D digital imaging was performed. COMPARISON: CR,XR XR CHEST 2V PA LATERAL from 01/05/2020 FINDINGS: MEDIASTINUM: Normal. HEART: Normal. Status post CABG. PULMONARY VASCULATURE: Normal. LUNGS: Hyperexpansion of the lungs with flattened diaphragms suggesting underlying COPD. No focal in filtrates. PLEURAL SPACE: No pleural effusion or pneumothorax. BONE:Degenerative changes in the spine. Prior median sternotomy. Lower cervical fusion. OTHER FINDINGS:Normal. IMPRESSION: No acute pulmonary findings. DATA REPOSITORY: RADIATION DOSE DELIVERED:
--- NOTE | 2020-03-11 23:18 | DI.VRAD_ITS ---
PROCEDURE INFORMATION: Exam: CT Abdomen And Pelvis Without Contrast Exam date and time: 03/11/2020 10:53 PM Age: 69 years old Clinical indication: Abdominal pain; Other: Epigastric TECHNIQUE: Imaging protocol: Computed tomography of the abdomen and pelvis without contrast. COMPARISON: CT ABDOMEN PELVIS WO 09/06/2019 4:50 PM FINDINGS: Lungs: Patchy scarring or atelectasis in the lung bases. Heart: Heart size normal. Moderate coronary artery calcification in the RCA distribution. Mediastinal space: The visualized distal esophagus is normal. Liver: Normal size and contour. No mass lesions. No intrahepatic biliary ductal dilatation. Gallbladder and bile ducts: Evidence of prior cholecystectomy with no significant dilatation of the common bile duct. Pancreas: Mild pancreatic atrophy without acute abnormality. No pancreatic ductal dilatation. Spleen: Normal. No splenomegaly. Adrenals: 4.4 x 2.7 cm homogeneous hypodense right adrenal mass measuring -17 Hounsfield units consistent with an incidental adrenal adenoma. Similar left adrenal mass measuring 3.6 x 2.0 cm and -17 Hounsfield units, also consistent with adrenal adenoma. No further imaging evaluation is required. Kidneys and ureters: No acute abnormalities. No hydronephrosis or hydroureter. No urinary tract stones are identified. 3.4 cm right renal cyst. No further imaging evaluation is required. Stomach and bowel: The stomach is grossly normal. The small bowel is normal with no evidence of obstruction. No acute colonic abnormalities. Mild diverticulosis involving the distal colon without evidence of acute diverticulitis. Appendix: The appendix is normal in caliber and demonstrates no evidence of appendicitis. Intraperitoneal space: No free fluid or air. Vasculature: Moderate atherosclerotic aortoiliac calcification without aneurysm. Lymph nodes: No adenopathy. Bladder: Unremarkable as visualized. Reproductive: Unremarkable as visualized. Bones/joints: No acute osseous abnormalities. Osteopenia. Partial laminectomies at L1, L2, and L5, and total laminectomy of L4, with posterior bony fusion at L4-L5. Left hip arthroplasty without gross hardware complication. Soft tissues: Unremarkable. IMPRESSION: 1. No acute process is identified. 2. Moderate coronary artery calcification in the RCA distribution. 3. Bilateral adrenal adenomas noted. No further imaging evaluation is required. 4. Mild diverticulosis involving the distal colon without evidence of acute diverticulitis. 5. Additional incidental findings detailed above. Dictated and Authenticated by: Wade Lara MD. Ordering:BRITNEY Lima MD
--- NOTE | 2020-03-11 23:24 | DI.VRAD_ITS ---
PROCEDURE INFORMATION: Exam: XR Chest, 2 Views Exam date and time: 03/11/2020 10:58 PM Age: 69 years old Clinical indication: Other: Epigastric pain TECHNIQUE: Imaging protocol: XR of the chest Views: 2 views. COMPARISON: CR XR CHEST 2V PA LATERAL 01/05/2020 1:46 PM FINDINGS: Tubes, catheters and devices: Lower cervical fusion hardware without gross hardware complication or change. Lungs: Moderate hyperexpansion and hyperlucency with diaphragmatic flattening suggesting COPD. Pulmonary vasculature grossly normal. No infiltrates. Pleural space: No pleural effusion. No pneumothorax. Heart/Mediastinum: Heart size normal. Vasculature: Moderate aortic ectasia. Bones/joints: Prior median sternotomy. No acute osseous abnormalities are identified. Intraperitoneal space: No free air below the diaphragm. Other findings: No tracheal/mediastinal shift. IMPRESSION: 1. No acute thoracic process. No change from 01/05/2020. 2. Evidence of COPD. Dictated and Authenticated by: Wade Lara MD. Ordering:BRITNEY Lima MD
[2020-03-12 01:08] VITALS: BP 114/54; PULSE 62; RESP 17; O2SAT 100
[2020-03-12] MEDS: Potassium Chloride 20 MEQ TABCR 40 MEQ PO (01:13)
== END 2020-03-12 01:33 | disposition home or self-care (01) ==
PROVIDERS: Emergency Provider Physician Assistant; PCP Family Medicine
DX: R10.13 Epigastric pain (principal); N18.3 Chronic kidney disease, stage 3 (moderate); I12.9 Hypertensive chronic kidney disease with stage 1 through stage 4 chronic kidney disease, or unspecified chronic kidney disease; E11.22 Type 2 diabetes mellitus with diabetic chronic kidney disease; Z79.4 Long term (current) use of insulin
CPT/HCPCS: 36415; 80053; 83690; 93005; 99285; 71046; 74176; 81003; 83880; 84484; 85025; 93010; 99284

== ENCOUNTER 2020-03-24 12:51 | Outpatient (CLI) | payer MEDICARE, MEDICAID, SELFPAY ==
--- NOTE | 2020-03-24 06:00 | DI.RAD_ITS ---
EXAM: XR PAIN CLINIC LUMBAR SP 2V CLINICAL HISTORY: Lumbar Spondylosis, LUMBAR MEDIAL BRANCH BLOCK TECHNIQUE: 2D and realtime digital imaging was performed. Fluoroscopy was provided in the OR COMPARISON: No exams were available for comparison FINDINGS: C-arm fluoroscopy utilized by Dr. MARCUS during reported bilateral lumbar medial branch block. Hard copy show needles placed at what appear to be the L3-4, L4-5 and L5-S1 levels bilaterally. Fluoro time 40.9 seconds. RADIATION DOSE DELIVERED: Total DLP
[2020-03-24 12:58] VITALS: BP 95/59; PULSE 76; RESP 18; TEMP 36.8; O2SAT 98
[2020-03-24] MEDS: Omnipaque 240 MG/ML 50 ML BTL IJ (13:51)
[2020-03-24] MEDS: Lidocaine 2% Pres-Free 5 ML VIAL IJ (14:00)
[2020-03-24 14:06] VITALS: BP 110/59; PULSE 81; RESP 14; O2SAT 93
--- NOTE | 2020-03-24 14:18 | PDOC.PAIN_ITS ---
Pain Clinic Procedure Note Procedure Note Procedure Note: Lumbar/Sacral Medial Branch Blocks NARENDRA BOYER has been referred to the [facility] for lumbar/sacral medial branch blocks. Pre-operative diagnosis: lumbar spondylosis Post-operative diagnosis: same as above COMMENTS: This is a her confirmoatry block. She was previous evaluated in our clinic. Multiple chronic medical problems. She has moderate renal failure and the amount of contrast will be minimized. of note, patient had recent ED visit for abdominal and epigastric pain, which was discovered to have pancreatic atrophy. I discussed with patient that pancreatic and abdominal pathology can have referred pain pattern to her back. On lumbar extension, patient reports it reproduced most of her lower back symptoms, in addition, last LMBB provided significant pain relief that allowed her to have an improved functional status. I empahsized with patient that she should follow up with her medical physician on further evaluation of her GI issues. There continues to be a chance that some of her back pain maybe referred from pancreatic and other GI pathology. She voiced understanding and wishes to proceed with today's procedure. Patient was interviewed and the medical record reviewed. There were no medical, pharmacologic, radiographic or other structural contraindications to attempting fluoroscopically guided local anesthetic lumbar/sacral medial branch blocks. Risks and expected side effects as well as potential benefit of the procedure were reviewed and voiced concerns addressed. The printed consent form was signed and witnessed. Standard time-out procedure was performed. Patient was placed in the prone position on the fluoroscopy table and automated blood pressure cuff and pulse oximeter applied. The skin entry points for approaching the anatomic target points of the segmental medial branches of bilateral L3, L4, L5DR were identified with anfluoroscopy and marked. Following thorough Chlorhexadine preparation of the skin and draping and 1% lidocaine infiltration of the skin entry points and subcutaneous tissues, a 22 gauge spinal needle was placed under fluoroscopic guidance down on to the target point for each respective segmental medial branch.Position was confirmed in A/P, oblique and lateral views with 0.15 ml of omnipaque 240. I next injected 0.5 cc of 0.5% Bupivacaine at each segmental nerve. The needles were removed without difficulty. Vital signs were stable throughout the procedure and were as recorded in the docflowsheet by the nursing staff. Follow up plans and appointments were discussed and was instructed to keep car eful note of how the usual pain was modified by these injections. Specifically was asked to keep a pain diary for the next 24 hours using a numeric pain scale of 0-10 and report these results at the follow-up visit. Post procedure instruction was given as documented in the nursing documentation and having met discharge criteria. Patient was discharged from the [facility]. Based on the medial branches blocked today, if the patient has adequate relief and we are able to proceed to radiofrequency ablation, the treatment should result in the denervation of the bilateral L4-L5 and L5-S1 FACET JOINTS. We would expect to denervate a total of 4 facets during the radiofrequency ablation. COMMENTS: She will call back with her 1-4 hour post-procedure pain scores. Pre-procedure pain level 8 out of 10 and post procedure pain level 6/10. I personally performed the entire procedure. Ebony Brown MD Pain Management CC: Laisha Mcmahon MD, DC
== END 2020-03-24 13:11 ==
PROVIDERS: PCP Family Medicine; Visit Provider Internal Medicine
DX: M47.816 Spondylosis without myelopathy or radiculopathy, lumbar region (principal)
CPT/HCPCS: 64493; 64494; 72100; Q9967

== ENCOUNTER 2020-03-25 11:20 | Outpatient (REF) | payer MEDICARE, MEDICAID, SELFPAY ==
[2020-03-25 16:25] LABS: Abs Immature Grans 0.03 k/cumm (0.0-0.09); Absolute Basophil Count 0.11 k/cumm (0.0-0.2); Absolute Eosinophil Count 1.58 k/cumm (0.0-0.7); Absolute Lymphocyte Count 2.31 k/cumm (1.2-3.4); Absolute Monocyte Count 1.13 k/cumm (0.11-0.7); Absolute Neutrophil Count 7.55 k/cumm (1.2-6.7); Basophils % 0.9; Eosinophils % 12.4; HCT 36.6 % (36.0-46.0); HGB 10.3 g/dL (12.0-15.5); Immature Grans % 0.2 %; Lymphocytes % 18.2; Mean Corp. HGB Concentration 28.1 g/dL (32.0-36.0); Mean Corpuscular Hemoglobin 22.6 pg (27.0-33.0); Mean Corpuscular Volume 80.4 fL (80-95); Mean Platelet Volume 10.1 fL (8.0-11.0); Monocytes % 8.9; Neutrophils % 59.4; Platelet Count 450 x1000/uL (130-400); RBC 4.55 m/cumm (4.00-5.20); RBC Distribution Width 17.2 % (11.7-14.6); White Blood Cell Count 12.71 k/cumm (4.4-10.8)
[2020-03-25 17:29] LABS: Anion Gap 7.1 mmol/L (3-11); BUN 71 mg/dL (7-18); CO2 37.9 mmol/L (21.0-32.0); CREATININE 2.87 mg/dL (0.55-1.02); Calcium 8.8 mg/dL (8.5-10.1); Chloride 95 mmol/L (98-107); Estimated GFR 16.38 (mL/min/1.73m2); Glucose 122 mg/dL (74-106); Magnesium 1.8 mg/dL (1.8-2.4); NT-proBNP 493 pg/mL (<300); Sodium 140 mmol/L (136-145)
== END 2020-03-25 11:40 ==
LOC: LBN 11:20
PROVIDERS: Internal Medicine Cardiovascular Disease; PCP Family Medicine; Visit Provider Family Medicine
DX: I50.33 Acute on chronic diastolic (congestive) heart failure (principal); E11.22 Type 2 diabetes mellitus with diabetic chronic kidney disease; N18.4 Chronic kidney disease, stage 4 (severe)
CPT/HCPCS: 80048; 83735; 83880; 85025

== ENCOUNTER 2020-04-08 09:57 | Outpatient (REF) | payer MEDICARE, MEDICAID, SELFPAY ==
[2020-04-08 11:22] LABS: Abs Immature Grans 0.05 10^3/uL (0.0-0.06); Absolute Eosinophil Count 1.42 10^3/uL (0.0-0.7); Absolute Lymphocyte Count 2.18 10^3/uL (1.2-3.4); Basophils % 0.6; Eosinophils % 11.5; HCT 32.6 % (36.0-46.0); HGB 9.2 g/dL (11.2-15.7); Immature Grans % 0.4; Lymphocytes % 17.7; MCH 22.7 pg (27.0-33.0); MCHC 28.2 % (32.0-36.0); MCV 80.3 fL (80-95); MPV 9.9 fL (8.0-11.0); Monocytes % 7.9; Neutrophils % 61.9; Platelet Count 490 10^3/uL (130-400); RBC 4.06 10^6/uL (3.93-5.22); RDW 16.8 % (11.7-14.6); WBC 12.34 10^3/uL (4.4-10.8)
[2020-04-08 11:23] LABS: Absolute Basophil Count 0.07 10^3/uL (0.0-0.2); Absolute Monocyte Count 0.97 10^3/uL (0.1-0.8); Absolute Neutrophil Count 7.64 10^3/uL (1.2-6.7)
[2020-04-08 11:34] LABS: ALT 21 U/L (14-59); AST 15 U/L (15-37); Albumin 3.2 g/dL (3.4-5.0); Alkaline Phosphatase 67 U/L (46-116); Anion Gap 5.9 mmol/L (3-11); Bilirubin, Total 0.4 mg/dL (0.2-1.0); CO2 38.1 mmol/L (21.0-32.0); CREATININE 2.55 mg/dL (0.55-1.02); Calcium 9.1 mg/dL (8.5-10.1); Chloride 98 mmol/L (98-107); Estimated GFR 18.78 (mL/min/1.73m2); Glucose 128 mg/dL (74-106); Magnesium 1.8 mg/dL (1.8-2.4); NT-proBNP 647 pg/mL (<300); Potassium 3.1 mmol/L (3.5-5.1); Sodium 142 mmol/L (136-145); Total Protein 6.6 g/dL (6.4-8.2)
[2020-04-08 11:37] LABS: BUN 86 mg/dL (7-18)
== END 2020-04-08 10:17 ==
LOC: LBN 09:57
PROVIDERS: PCP Family Medicine; Visit Provider Family Medicine
DX: I50.33 Acute on chronic diastolic (congestive) heart failure (principal)
CPT/HCPCS: 80053; 83735; 83880; 85025

== ENCOUNTER 2020-04-14 11:07 | Outpatient (REF) | payer MEDICARE, MEDICAID, SELFPAY ==
[2020-04-14 11:38] LABS: Abs Immature Grans 0.04 10^3/uL (0.0-0.06); Absolute Eosinophil Count 1.44 10^3/uL (0.0-0.7); Absolute Lymphocyte Count 2.01 10^3/uL (1.2-3.4); Absolute Monocyte Count 0.99 10^3/uL (0.1-0.8); Basophils % 0.8; Eosinophils % 11.8; HCT 32.6 % (36.0-46.0); HGB 9.1 g/dL (11.2-15.7); Immature Grans % 0.3; Lymphocytes % 16.5; MCH 22.1 pg (27.0-33.0); MCHC 27.9 % (32.0-36.0); MCV 79.1 fL (80-95); Monocytes % 8.1; Neutrophils % 62.5; Nucleated RBC 0 %; Platelet Count 405 10^3/uL (130-400); RBC 4.12 10^6/uL (3.93-5.22); RDW-SD 48.2 fL; WBC 12.19 10^3/uL (4.4-10.8)
[2020-04-14 11:40] LABS: Absolute Neutrophil Count 7.62 10^3/uL (1.2-6.7)
[2020-04-14 11:49] LABS: Anisocytosis 1+; Basophilic Stippling Present; Diff Comment RBC Morph Reviewed; Hypochromasia 2+; Microcytosis 2+; Poikilocytes 1+
[2020-04-14 12:10] LABS: ALT 23 U/L (14-59); AST 16 U/L (15-37); Albumin 3.2 g/dL (3.4-5.0); Alkaline Phosphatase 72 U/L (46-116); Anion Gap 8.6 mmol/L (3-11); Bilirubin, Total 0.4 mg/dL (0.2-1.0); CO2 32.4 mmol/L (21.0-32.0); CREATININE 2.84 mg/dL (0.55-1.02); Calcium 8.8 mg/dL (8.5-10.1); Calculated LDL 61 mg/dL (<100); Chloride 99 mmol/L (98-107); Cholesterol 131 mg/dL (<200); Estimated GFR 16.58 (mL/min/1.73m2); Glucose 104 mg/dL (74-106); HDL Cholesterol 49 mg/dL (40-60); Potassium 3.4 mmol/L (3.5-5.1); Sodium 140 mmol/L (136-145); Total Protein 6.7 g/dL (6.4-8.2); Triglyceride 109 mg/dL (<150)
[2020-04-14 12:19] LABS: BUN 92 mg/dL (7-18)
[2020-04-14 12:53] LABS: Hemoglobin A1C 8.4 % (3.8-5.6)
== END 2020-04-14 11:27 ==
LOC: LBN 11:07
PROVIDERS: PCP Family Medicine; Visit Provider Family Medicine
DX: E11.22 Type 2 diabetes mellitus with diabetic chronic kidney disease (principal); N18.4 Chronic kidney disease, stage 4 (severe); I50.9 Heart failure, unspecified
CPT/HCPCS: 80053; 80061; 83036; 85025

== ENCOUNTER → 2020-04-17 09:21 | Outpatient (BNVA) | payer MEDICARE, MEDICAID, SELFPAY | PROVIDERS: PCP Family Medicine; Referring Provider Family Medicine; Visit Provider Internal Medicine Cardiovascular Disease | DX: I25.10 Atherosclerotic heart disease of native coronary artery without angina pectoris (principal); I21.4 Non-ST elevation (NSTEMI) myocardial infarction; E11.22 Type 2 diabetes mellitus with diabetic chronic kidney disease; N18.3 Chronic kidney disease, stage 3 (moderate); I50.812 Chronic right heart failure; I48.0 Paroxysmal atrial fibrillation; I13.0 Hypertensive heart and chronic kidney disease with heart failure and stage 1 through stage 4 chronic kidney disease, or unspecified chronic kidney disease | CPT/HCPCS: 99214 ==

== ENCOUNTER 2020-04-21 07:27 | Outpatient (CLI) | payer MEDICARE, MEDICAID, SELFPAY ==
--- NOTE | 2020-04-21 06:00 | DI.RAD_ITS ---
EXAM: XR PAIN CLINIC LUMBAR SP 2V CLINICAL HISTORY: Dx: Lumbar Spondylosis TECHNIQUE: 2D and realtime digital imaging was performed. CONTRAST MATERIAL: Refer to procedure report. COMPARISON: No exams were available for comparison FINDINGS: Fluoroscopy was provided for Dr. Brown during the performance of a bilateral lumbar radiofrequency abla tion. Please refer to the procedure report for complete details. Fluoro time: 58.4 seconds IMPRESSION:
[2020-04-21 07:49] VITALS: BP 92/61; PULSE 71; RESP 20; TEMP 37.1; O2SAT 93
--- NOTE | 2020-04-21 08:04 | PDOC.PAIN_ITS ---
Pain Clinic Procedure Note Procedure Note Procedure Note: Bilateral Lumbar Radiofrequency with Coolief Machine PROCEDURE NOTE Date of Service: April 21, 2020 Patient: NARENDRA BOYER Provider: Ebony Brown MD Pre Operative Diagnosis: lumbar spondylosis Post Operative Diagnosis: same as above PROCEDURE: Radiofrequency Ablation of medial branches - bilateral L3, L4, L5-DR NARENDRA Thakkar ROSALIND was brought into the fluoroscopy suite and positioned into the prone position on the fluoroscopy table and allowed to adjust to a position of comfort. A grounding pad was placed on the [right/left] thigh. The lumbar region was widely prepped with a chloraprep solution, allowed to air dry and draped in standard sterile surgical fashion. Local anesthesia was provided by 15 mL of 1 % lidocaine delivered with a 25g needle. A 17g 100mm radiofrequency introducer needle was placed to the planned anatomic targets guided with intermittent fluoroscopy with a perpendicular approach to terminally place at the junction of the superior articular process and the transverse process of the bilateral L3, L4, L5 and the base of the sacral ala on the [right/left/bilateral] for the L5 medial branch nerve. The stylets were removed and radiofrequency probes with a 4mm active tip were then inserted. Needle tip position of the probes was verified in the AP, oblique, and lateral views. At each site, the medial branch nerve was stimulated at 2 Hz to a maximum 1-2 volts determined to finalize safe needle and electrode placement. The patient was awake and responsive during this portion of the procedure. Each target was anesthetized with 1 mL of 2 % lidocaine for anesthesia for lesioning and then each target was lesioned at 80 degrees Celsius for 2 minutes and 30 seconds. Tissue impedences were noted to be between 250 and 500 Ohms. Due to history of DM2 with most recent A1c elevated at 10.5, no steroid was used post- lesioning. Electrodes and needles were then removed and bandages placed over the needle placement sites, the patient then returned to the supine position on a stretcher and transported to the recovery room without hemodynamic, neurologic, or allergic reactions. Fluoroscopic images were printed for hard copy recording and digitally archived. POST PROCEDURE EVALUATION: IMPRESSION: 1. Patient tolerated procedure well 2. Excellent multifus stimulation observed at bilateral L3, L4 MBB 3. Estimated Blood Loss: less than 2cc 4. Received 1mg of IV versed and 25mcg of IV fentanyl Follow up plans and appointments were discussed with the NARENDRA . Post procedure instruction was given as documented in nursing documentation and having met discharge criteria, NARENDRA was discharged from the [facility]. COMMENTS: No complications. F/U with our office as needed. I personally performed this entire procedure. Ebony Brown MD Attending Physician
[2020-04-21] MEDS: Lactated Ringers 1,000 ML 80 ML IV (08:22)
[2020-04-21] MEDS: fentaNYL 100 MCG/2 ML VIAL IVP (08:33)
[2020-04-21] MEDS: Midazolam 2 MG/2 ML VIAL IVP (08:33)
[2020-04-21] MEDS: Bupivacaine 0.5% Pres-Free 10 ML VIAL IJ (08:58)
[2020-04-21] MEDS: Lidocaine 1% Pres-Free 30 ML VIAL IJ (08:58)
[2020-04-21] MEDS: Lidocaine 2% Pres-Free 5 ML VIAL IJ (08:59)
[2020-04-21 09:05] VITALS: BP 123/72; PULSE 70; RESP 20; O2SAT 91
== END 2020-04-21 07:47 ==
PROVIDERS: PCP Family Medicine; Visit Provider Internal Medicine
DX: M47.816 Spondylosis without myelopathy or radiculopathy, lumbar region (principal)
CPT/HCPCS: 64635; 64636; 72100; J2250; J3010

== ENCOUNTER 2020-04-29 09:50 | Outpatient (REF) | payer MEDICARE, MEDICAID, SELFPAY ==
[2020-04-29 10:44] LABS: HCT 34.2 % (36.0-46.0); HGB 9.3 g/dL (11.2-15.7); MCH 21.9 pg (27.0-33.0); MCHC 27.2 % (32.0-36.0); MCV 80.5 fL (80-95); MPV 9.9 fL (8.0-11.0); Platelet Count 486 10^3/uL (130-400); RBC 4.25 10^6/uL (3.93-5.22); RDW 17.3 % (11.7-14.6); RDW-SD 50.4 fL; WBC 9.98 10^3/uL (4.4-10.8)
[2020-04-29 11:01] LABS: ALT 23 U/L (14-59); AST 17 U/L (15-37); Albumin 3.1 g/dL (3.4-5.0); Alkaline Phosphatase 65 U/L (46-116); Anion Gap 7.7 mmol/L (3-11); BUN 62 mg/dL (7-18); Bilirubin, Total 0.3 mg/dL (0.2-1.0); CO2 34.3 mmol/L (21.0-32.0); CREATININE 2.42 mg/dL (0.55-1.02); Calcium 8.7 mg/dL (8.5-10.1); Chloride 105 mmol/L (98-107); Estimated GFR 19.94 (mL/min/1.73m2); Glucose 108 mg/dL (74-106); Magnesium 1.6 mg/dL (1.8-2.4); NT-proBNP 1010 pg/mL (<300); Potassium 4.4 mmol/L (3.5-5.1); Sodium 147 mmol/L (136-145); Total Protein 6.6 g/dL (6.4-8.2)
== END 2020-04-29 10:10 ==
LOC: LBN 09:50
PROVIDERS: PCP Family Medicine; Visit Provider Family Medicine
DX: I50.33 Acute on chronic diastolic (congestive) heart failure (principal); E11.22 Type 2 diabetes mellitus with diabetic chronic kidney disease; N18.4 Chronic kidney disease, stage 4 (severe)
CPT/HCPCS: 80053; 85027; 83735; 83880

== ENCOUNTER 2020-05-14 04:05 | Outpatient (CLI) | payer MEDICARE, MEDICAID, SELFPAY ==
[2020-05-14 14:57] LABS: HCT 35.6 % (36.0-46.0); HGB 10.1 g/dL (11.2-15.7); MCH 21.9 pg (27.0-33.0); MCHC 28.4 % (32.0-36.0); MCV 77.1 fL (80-95); MPV 9.6 fL (8.0-11.0); Platelet Count 401 10^3/uL (130-400); RBC 4.62 10^6/uL (3.93-5.22); RDW 17.9 % (11.7-14.6); RDW-SD 48.7 fL; WBC 13.67 10^3/uL (4.4-10.8)
[2020-05-14 16:58] LABS: ALT 20 U/L (14-59); AST 19 U/L (15-37); Albumin 3.5 g/dL (3.4-5.0); Alkaline Phosphatase 83 U/L (46-116); Anion Gap 11.9 mmol/L (3-11); BUN 61 mg/dL (7-18); Bilirubin, Total 0.5 mg/dL (0.2-1.0); CO2 30.1 mmol/L (21.0-32.0); CREATININE 2.91 mg/dL (0.55-1.02); Calcium 9.2 mg/dL (8.5-10.1); Chloride 99 mmol/L (98-107); Estimated GFR 16.12 (mL/min/1.73m2); Glucose 101 mg/dL (74-106); Magnesium 1.6 mg/dL (1.8-2.4); NT-proBNP 746 pg/mL (<300); Potassium 3.4 mmol/L (3.5-5.1); Sodium 141 mmol/L (136-145); Total Protein 7.1 g/dL (6.4-8.2)
== END 2020-05-14 04:25 ==
PROVIDERS: PCP Family Medicine; Visit Provider Family Medicine
DX: I50.30 Unspecified diastolic (congestive) heart failure (principal); D64.9 Anemia, unspecified; C15.3 Malignant neoplasm of upper third of esophagus; N17.9 Acute kidney failure, unspecified
CPT/HCPCS: 36415; 80053; 85027; 83735; 83880; 85025

== ENCOUNTER 2020-05-28 13:19 | Outpatient (REF) | payer MEDICARE, MEDICAID, SELFPAY ==
[2020-05-28 10:40] LABS: Hemoglobin A1C 6.9 % (<5.7)
[2020-05-28 11:01] LABS: ALT 16 U/L (14-59); AST 11 U/L (15-37); Albumin 2.9 g/dL (3.4-5.0); Alkaline Phosphatase 63 U/L (46-116); Anion Gap 3.3 mmol/L (3-11); BUN 28 mg/dL (7-18); Bilirubin, Total 0.3 mg/dL (0.2-1.0); CO2 35.7 mmol/L (21.0-32.0); CREATININE 1.72 mg/dL (0.55-1.02); Calcium 8.6 mg/dL (8.5-10.1); Chloride 109 mmol/L (98-107); Estimated GFR 29.58 (mL/min/1.73m2); Glucose 108 mg/dL (74-106); Potassium 4.5 mmol/L (3.5-5.1); Sodium 148 mmol/L (136-145); Total Protein 5.9 g/dL (6.4-8.2)
[2020-05-28 21:44] LABS: HCT 32.9 % (36.0-46.0); HGB 8.6 g/dL (11.2-15.7); MCH 21.3 pg (27.0-33.0); MCHC 26.1 % (32.0-36.0); MCV 81.6 fL (80-95); MPV 9.9 fL (8.0-11.0); Platelet Count 381 10^3/uL (130-400); RBC 4.03 10^6/uL (3.93-5.22); RDW 18.6 % (11.7-14.6); RDW-SD 54.9 fL; WBC 9.89 10^3/uL (4.4-10.8)
[2020-05-28 22:04] LABS: NT-proBNP 1296 pg/mL (<300)
== END 2020-05-28 13:39 ==
LOC: LBN 13:19
PROVIDERS: PCP Family Medicine; Visit Provider Family Medicine
DX: E11.9 Type 2 diabetes mellitus without complications (principal); R06.02 Shortness of breath; I25.10 Atherosclerotic heart disease of native coronary artery without angina pectoris; I50.812 Chronic right heart failure
CPT/HCPCS: 80053; 85027; 83036; 83880

== ENCOUNTER 2020-05-29 09:50 | Inpatient (IN) | payer MEDICARE, MEDICAID, SELFPAY ==
[2020-05-29] VITALS (18 sets, daily range): BP systolic 96–152; BP diastolic 49–103; PULSE 63–72; RESP 16–24; TEMP 36.3–37; O2SAT 93–100
--- NOTE | 2020-05-29 09:45 | RT.EKG_ITS ---
APPROVED REPORT Exam: Resting ECG Patient Location: E HR:73 bpm ECG Measurements Heart Rate 73 AXIS PA 144 P 0 QRSd 89 QRS 76 QT 388 T -89 QTc 426 Conclusion Sinus rhythm...normal P axis non specific st changes, no stemi
--- NOTE | 2020-05-29 10:18 | W.ED.GENAD ---
Discharge Plan Disposition Patient Disposition: [facility] INPATIENT Condition: Stable Discharge Details Chief Complaint: SOB Clinical Impression: Congestive heart failure Admit Date/Time: 05/29/20 13:56 Admit Provider: Clarence Caban Attending Provider: Clarence Caban Primary Care Provider: Laisha Mcmahon ED Provider: Misbah Arellano Medical Decision Making 69-year-old female presents from home with worsening exertional dyspnea over days time with associated weight gain and recent change to her diuretic. She states she had had her pulmonary artery pressure monitor placed at [facility] and at that time her torsemide was decreased from 100 to 20 mg. She states her Bumex that she took 3 times a week was discontinued. At follow-up in clinic with Dr. Mcmahon last week on May 21 her torsemide was increased back to 40 mg daily. Today she notes significant worsening exertional dyspnea over the past 2 days. She arrives to the ED afebrile with a pulse in the 70s, blood pressure 126/49. She will note of the past 2 days she has gone from using 2.5L oxygen as needed at nighttime to oxygen [id number] due to dyspnea. Patient placed on a surveillance system monitor, labs, x-ray, EKG obtained. Her diagnostics reveal a white count of 11, hematocrit 34, platelets 384. Sodium 146, potassium 4.4, chloride 106, bicarb 33, BUN 27 and creatinine 1.8 which is improved over baseline. Troponin is negative with BNP of 1666. Recent significant change to diuretic plan, increasing weight gain, exertional dyspnea and laboratories today I do feel that she has fluid overload and merits admission for diuresis. Case discussed with hospitalist team. Given that the patient is followed by the heart failure clinic at [facility], I also discussed the case with on-call cardiology at [facility] who discussed with her heart failure team. They state that her dry weight is 274 pounds (288# today). They recommend admission to the hospital with diuresis until either kidney function begins to bump up or she becomes euvolemic. They stated they will keep close contact with patient. Lab Data Lab results reviewed: Yes I reviewed the patient's lab results. Labs: Laboratory Results - last 24 hr 05/29/20 05/29/20 05/29/20 10:45 11:12 11:12 WBC RBC Hgb Hct MCV MCH MCHC RDW Plt Count MPV Immature Gran % Neutrophils % Lymphocytes % Monocytes % Eosinophils % Basophils % Nucleated RBC % Absolute Neutrophils Absolute Lymphocytes Absolute Monocytes Absolute Eosinophils Absolute Basophils RBC Morphology Polychromasia Hypochromasia Poikilocytosis Sodium 146 H Potassium 4.4 Chloride 106 Carbon Dioxide 33.4 H Anion Gap 6.6 BUN 27 H Creatinine 1.86 H Estimated GFR/1.73 m2 27.02 Glucose 64 L Calcium 9.1 Magnesium 1.8 Total Bilirubin 0.4 AST 14 L ALT 17 Alkaline Phosphatase 70 Troponin I < 0.05 NT-Pro-B Natriuret Pep 1666 H Total Protein 7.0 Albumin 3.1 L Urine Color Yellow Urine Clarity Clear Urine pH 7.0 Ur Specific [place] 1.020 Urine Protein Negative Urine Ketones Negative Urine Blood Negative Urine Nitrite Negative Urine Bilirubin Negative Urine Urobilinogen 0.2 Ur Leukocyte Esterase Negative Urine Glucose Negative 05/29/20 11:12 WBC 11.06 H RBC 4.32 Hgb 9.3 L Hct 34.4 L MCV 79.6 L MCH 21.5 L MCHC 27.0 L RDW 18.1 H Plt Count 384 MPV 9.7 Immature Gran % 0.3 Neutrophils % 66.0 Lymphocytes % 13.4 Monocytes % 6.6 Eosinophils % 12.5 Basophils % 1.2 Nucleated RBC % 0 Absolute Neutrophils 7.30 H Absolute Lymphocytes 1.48 Absolute Monocytes 0.73 Absolute Eosinophils 1.38 H Absolute Basophils 0.13 RBC Morphology See below Polychromasia Present Hypochromasia 1+ Poikilocytosis 1+ Sodium Potassium Chloride Carbon Dioxide Anion Gap BUN Creatinine Estimated GFR/1.73 m2 Glucose Calcium Magnesium Total Bilirubin AST ALT Alkaline Phosphatase Troponin I NT-Pro-B Natriuret Pep Total Protein Albumin Urine Color Urine Clarity Urine pH Ur Specific [place] Urine Protein Urine Ketones Urine Blood Urine Nitrite Urine Bilirubin Urine Urobilinogen Ur Leukocyte Esterase Urine Glucose HPI General Mode of arrival: ambulatory. Date/Time Provider Initiated Documentation: 05/29/20 09:51. Limitations to Documentation: no limitations. Information obtained by: patient. History of Present Illness 69 year old F presents to the emergency department with the chief complaint of Increasing weight, shortness of breath, described as moderate, Quality is described as dull and constant, and is localized to the chest. Patient reports no radiation. Patient started experiencing this day(s) and it has been constant. Rest improves symptom(s), Other factors that worsen symptoms (Exertion) . Patient notes cough, shortness of breath and other (White sputum. Lower extremity edema, weight gain); denies fever/chills. Patient did receive the following treatments prior to arrival, none Related Data Home Medications Medication Instructions Recorded Confirmed folic acid 1 mg tablet 1 mg PO DAILY #90 tab 05/21/18 05/29/20 meclizine 12.5 mg tablet 25 mg PO TID PRN #60 tab 12/17/18 05/29/20 lancets 33 gauge #100 each 12/18/18 05/21/20 magnesium hydroxide [Milk of 30 ml PO PRN PRN 01/15/19 05/29/20 Magnesia] polyethylene glycol 3350 [Miralax] 1 g PO PRN PRN 01/15/19 05/29/20 acetaminophen [Tylenol Extra 1,000 mg PO Q8H PRN PRN #0 tab 01/22/19 05/29/20 Strength] aspirin [Aspir-81] 81 mg PO DAILY #30 tab 01/22/19 05/29/20 lancets 25 gauge #100 each 01/29/19 05/21/20 albuterol sulfate 2.5 mg INHALATION Q2H PRN PRN #0 ml 02/12/19 05/29/20 epinephrine 0.3 mg/0.3 mL 0.3 mg IM ONCE #2 dose 04/29/19 05/29/20 injection, auto-injector B-complex with vitamin C 1 tab PO DAILY 09/19/19 05/29/20 atorvastatin 40 mg tablet 40 mg PO DAILY #90 tab-cap 10/31/19 05/29/20 duloxetine 60 mg capsule,delayed 60 mg PO DAILY #90 tab-cap 10/31/19 05/29/20 release gabapentin 600 mg tablet 600 mg PO TID #270 tab-cap 10/31/19 05/29/20 pen needle, diabetic 31 gauge x #450 each 10/31/19 05/21/20 1/4 ropinirole 2 mg tablet 2 mg PO QPM PRN #90 tab 10/31/19 05/29/20 baclofen 10 mg tablet 10 mg PO TID #90 tab 12/04/19 05/29/20 sitagliptin 25 mg tablet 25 mg PO DAILY #90 tab 12/17/19 05/29/20 blood sugar diagnostic #300 each 12/24/19 05/21/20 insulin aspart U-100 100 unit/mL 15 unit SC TID #30 ml 12/24/19 05/29/20 (3 mL) subcutaneous pen estradiol 1 gm VG DAILY #42.5 gm 01/23/20 05/29/20 omeprazole 40 mg capsule,delayed 40 mg PO BID #180 cap 02/11/20 05/29/20 release insulin glargine 100 unit/mL (3 35 unit SC BID #90 ml 02/25/20 05/29/20 mL) subcutaneous pen metoprolol succinate 100 mg 100 mg PO DAILY #90 tab 02/25/20 05/29/20 tablet,extended release 24 hr calcium epez-S4-elgbguqlx vitaliy 2 cap PO DAILY 03/11/20 05/29/20 fzuxdq-oerkwgvm-hnfktps 1 cap PO TID #90 cap 03/16/20 05/29/20 6,000-19,000-30,000 unit capsule,delayed rel metolazone 5 mg tablet 5 mg PO DAILY 03/16/20 05/29/20 allopurinol 100 mg tablet 100 mg PO DAILY #90 tab-cap 05/05/20 05/29/20 budesonide-formoterol HFA 160 2 puff IH BID #10.2 gm 05/05/20 05/29/20 mcg-4.5 mcg/actuation aerosol inhaler ergocalciferol (vitamin D2) 1,250 50,000 unit PO M-W-F #36 tab-cap 05/05/20 05/29/20 mcg (50,000 unit) capsule clopidogrel 75 mg tablet 75 mg PO DAILY 05/21/20 05/29/20 potassium chloride 20 mEq 20 meq PO BID #180 tab 05/21/20 05/29/20 tablet,extended release torsemide 20 mg tablet 40 mg PO DAILY #180 tab 05/21/20 05/29/20 glipizide 10 mg PO DAILY 05/29/20 05/29/20 Previous Rx's Medication Instructions Recorded folic acid 1 mg tablet 1 mg PO DAILY #90 tab 05/21/18 meclizine 12.5 mg tablet 25 mg PO TID PRN #60 tab 12/17/18 lancets 33 gauge #100 each 12/18/18 acetaminophen [Tylenol Extra 1,000 mg PO Q8H PRN PRN #0 tab 01/22/19 Strength] aspirin [Aspir-81] 81 mg PO DAILY #30 tab 01/22/19 lancets 25 gauge #100 each 01/29/19 albuterol sulfate 2.5 mg INHALATION Q2H PRN PRN #0 ml 02/12/19 epinephrine 0.3 mg/0.3 mL 0.3 mg IM ONCE #2 dose 04/29/19 injection, auto-injector atorvastatin 40 mg tablet 40 mg PO DAILY #90 tab-cap 10/31/19 duloxetine 60 mg capsule,delayed 60 mg PO DAILY #90 tab-cap 10/31/19 release gabapentin 600 mg tablet 600 mg PO TID #270 tab-cap 10/31/19 pen needle, diabetic 31 gauge x #450 each 10/31/19 1/ ropinirole 2 mg tablet 2 mg PO QPM PRN #90 tab 10/31/19 baclofen 10 mg tablet 10 mg PO TID #90 tab 12/04/19 sitagliptin 25 mg tablet 25 mg PO DAILY #90 tab 12/17/19 blood sugar diagnostic #300 each 12/24/19 insulin aspart U-100 100 unit/mL 15 unit SC TID #30 ml 12/24/19 (3 mL) subcutaneous pen estradiol 1 gm VG DAILY #42.5 gm 01/23/20 omeprazole 40 mg capsule,delayed 40 mg PO BID #180 cap 02/11/20 release insulin glargine 100 unit/mL (3 35 unit SC BID #90 ml 02/25/20 mL) subcutaneous pen metoprolol succinate 100 mg 100 mg PO DAILY #90 tab 02/25/20 tablet,extended release 24 hr hmenyr-chowiiox-gakcabk 1 cap PO TID #90 cap 03/16/20 6,000-19,000-30,000 unit capsule,delayed rel allopurinol 100 mg tablet 100 mg PO DAILY #90 tab-cap 05/05/20 budesonide-formoterol HFA 160 2 puff IH BID #10.2 gm 05/05/20 mcg-4.5 mcg/actuation aerosol inhaler ergocalciferol (vitamin D2) 1,250 50,000 unit PO -W- #36 tab-cap 05/05/20 mcg (50,000 unit) capsule potassium chloride 20 mEq 20 meq PO BID #180 tab 05/21/20 tablet,extended release torsemide 20 mg tablet 40 mg PO DAILY #180 tab 05/21/20 Allergies Allergy/AdvReac Type Severity Reaction Status Date / Time oxycodone Allergy Severe Psychosis Verified 05/29/20 10:09 venom-honey bee Allergy Severe ANAPHYLAXIS Verified 05/29/20 10:09 adhesive Allergy BLISTERS Verified 05/29/20 10:09 General Stated Complaint: SOB STEPHANIE: 2 Review of Systems Narrative: Recent placement of cardio mems device. [facility] had decreased torsemide from 100 down to 20. On May [address] Dr. Mcmahon increased back to 40 mg. Taking 20 mEq potassium twice daily. Chronic cough with white sputum production, no fever, no travel, no known sick contacts. 8 systems reviewed and otherwise negative [facility], [facility] Medical History (Updated 05/29/20 @ 15:57 by Misbah Arellano MD) Abnormal mammography 08/10/06 Acute kidney injury superimposed on chronic kidney disease Altered mental status Anemia Ankle pain (03/13/14) Atrial fibrillation paroxysmal, onset 2015, anticoagulated w/ Xarelto; anticoagulation discontinued after left atrial appendage excision 01/03/2019 Atrial fibrillation Atrial flutter Carpal tunnel syndrome Carpal tunnel syndrome (08/10/06) BILATERAL R S/P SURGERY Cervical disc disorder with myelopathy (08/21/08) S/P surgery x 2 Cervical spondylosis with myelopathy Chest pain Neg Stress test Chronic obstructive lung disease CKD (chronic kidney disease) stage 3, GFR 30-59 ml/min Cr about 2.5 Constipation Dehydration Diabetes mellitus Diabetes mellitus 09/20/10 Positive Microalbumin Diastolic CHF Dysuria Essential hypertension Folate deficiency (02/15/16) Gout Gout (07/06/11) Gram-positive bacteremia HAP (hospital-acquired pneumonia) (01/15/19) HCAP (healthcare-associated pneumonia) Hepatomegaly 06/10/04 Hip joint inflamed (09/03/15) Hip pain, left Hip pain, right Hyperglycemia Hyperlipidemia (08/10/00) Hypertension Hypomagnesemia Hypoxia Low back pain (04/10/03) DISC HERNIATION L4. MULTILEVEL DJD/SPINAL STENOSIS BY MRI; S/P surgery Lump in neck Menopausal syndrome 07/11/03 Muscle fatigue 03/04/13 PAF (paroxysmal atrial fibrillation) Posterior tibial tendon dysfunction 02/03/16 Postmenopausal bleeding neg. endometrial biopsy Postoperative wound dehiscence (12/23/15) Prerenal azotemia Primary osteoarthritis of left hip (09/17/15) Pulmonary hypertension Renal impairment (07/11/03) ADRENAL MASS. F/U W/ KINLAW positive microalbumin Restless leg syndrome Rotator cuff syndrome (08/01/09) Shingles Smoker (06/30/16) 01/17/17 1-2 cig/wk Spinal stenosis of lumbar region (02/15/16) Spinal stenosis of lumbar region at multiple levels Tarsal tunnel syndrome 06/11/13 Tarsal tunnel syndrome (06/11/13) Trochanteric bursitis 03/18/13 Upper respiratory tract infection (08/03/15) UTI (urinary tract infection) UTI (urinary tract infection) Vitamin D deficiency Vitamin D deficiency Weakness Surgical History Arthrodesis right 2nd toe Cataract (01/07/14) FOLLOWED BY [facility] [facility] cervical repair (~10/2008) C6-C7 DISK; RECURRENT SURGERY Cholecystectomy (07/31/13) Endometrial Biopsy NEG H/O arthrodesis right second toe H/O Spinal surgery multiple spine surgeries; low back x 2; She had multilevel DJD and spinal stenosis; disc herniation. 2008-cervical repair; C6-C7 disc; recurrent surgery. History of bilateral tubal ligation 09/11/80 History of gynecologic surgery endometrial biopsy-neg History of hip surgery 11/10/15 left hip arthroplasty 12/04/15-placement of wound VAC to left hip History of orthopedic surgery 09/11/97 tarsal tunnel release Left eye surgery 12/31/17 Ligation of fallopian tube (~1980) Open Carpal Tunnel release Right wrist surgery 10/26/17 Rotator Cuff Repair (~1980) S/P CABG (coronary artery bypass graft) (01/03/19) 4 vessel CABG and [place] appendage excision, [place]. aNv Wang, [facility] [place] S/P carpal tunnel release S/P cholecystectomy 09/11/12 S/P rotator cuff repair 09/11/80 SPINE SURGERY Multiple spine surgeries, low back x 2. She had multilevel DJD and spinal stenosis, disc herniation Status post incision and drainage 12/04/15 left hip surgical wound dehiscence and infection tarsal tunnel release (~1997) Total replacement of hip [facility]; LEFT HIP Family History Mother Diabetes Essential hypertension Personal history of malignant neoplasm KIDNEY/LIVER/BRAIN Heart disease Hyperlipidemia Stroke Asthma Father Diabetes Essential hypertension Personal history of malignant neoplasm BONE Heart disease Asthma Sister Diabetes Essential hypertension Depression Heart disease Asthma Grandfather No problems noted. Grandfather No problems noted. Grandmother Personal history of malignant neoplasm UTERINE Grandmother Diabetes Aunt Personal history of malignant neoplasm BREAST Brother Hyperlipidemia Stroke Sister Asthma Son Asthma Daughter Depression Asthma Daughter Asthma Daughter Depression Neoplasm Asthma Brother No problems noted. 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 Pleasant, well groomed, interactive. HEAD: Normocephalic, atraumatic ENT: Mucous membranes moist, oropharynx unremarkable, External ear exam unremarkable EYES: PERRL, EOMI NECK: Full ROM, no HAY, no menigismus CHEST/RESP: Nontender, diminished throughout, probable rales at bases CARDIOVASCULAR: VERY DISTANT,RRR, no murmur, rub alfreda. 2+ Rad pulse bilateral ABDOMEN: Soft, nontender, no mass. +Bowel sounds EXT: Full ROM, 2+ edema pretibial bilaterally Neuro: Grossly normal neurologic exam, conversant, interactive. Psych: Speech fluent, thoughts congruent, affect normal Course Vital Signs Vital signs: Vital Signs Temperature 36.3 C L 05/29/20 10:00 Pulse 72 05/29/20 10:00 Respiratory Rate 24 05/29/20 10:00 Blood Pressure 126/49 L 05/29/20 10:00 Pulse Oximetry 99 05/29/20 10:00 Temperature 36.3 C L 05/29/20 10:00 Temperature Source Skin 05/29/20 10:00 Pulse 72 05/29/20 10:00 Respiratory Rate 23 05/29/20 10:10 Respiratory Effort Incrsd Work of Breathing 05/29/20 10:13 Respiratory Pattern Irregular 05/29/20 10:10 Blood Pressure 126/49 L 05/29/20 10:00 Pulse Oximetry 99 05/29/20 10:00 Oxygen Delivery Method Nasal Cannula 05/29/20 10:00 Oxygen Flow Rate 3.5 05/29/20 10:00
[2020-05-29 11:04] LABS: Bilirubin Negative (Negative); Blood Negative (Negative); Clarity Clear (Clear); Glucose Negative (Negative); Ketones Negative (Negative); Leukocyte Esterase Negative (Negative); Nitrite Negative (Negative); Urobilinogen 0.2 EU/dL (Up TO 0.2)
[2020-05-29 11:21] LABS: Abs Immature Grans 0.03 10^3/uL (0.0-0.06); Absolute Basophil Count 0.13 10^3/uL (0.0-0.2); Absolute Eosinophil Count 1.38 10^3/uL (0.0-0.7); Absolute Lymphocyte Count 1.48 10^3/uL (1.2-3.4); Absolute Monocyte Count 0.73 10^3/uL (0.1-0.8); Basophils % 1.2; Eosinophils % 12.5; HCT 34.4 % (36.0-46.0); HGB 9.3 g/dL (11.2-15.7); Immature Grans % 0.3; Lymphocytes % 13.4; MCH 21.5 pg (27.0-33.0); MCV 79.6 fL (80-95); MPV 9.7 fL (8.0-11.0); Monocytes % 6.6; Nucleated RBC 0 %; Platelet Count 384 10^3/uL (130-400); RBC 4.32 10^6/uL (3.93-5.22); RDW 18.1 % (11.7-14.6); RDW-SD 52.3 fL; WBC 11.06 10^3/uL (4.4-10.8)
[2020-05-29 11:28] LABS: Diff Comment RBC Morph Reviewed
[2020-05-29 11:31] LABS: Hypochromasia 1+; Poikilocytes 1+; Polychromasia Present
--- NOTE | 2020-05-29 11:33 | DI.RAD_ITS ---
EXAM: XR CHEST 2V PA LATERAL CLINICAL HISTORY: sob, incr weight TECHNIQUE: COMPARISON: CR,XR XR CHEST 2V PA LATERAL from 03/11/2020 FINDINGS: Heart is not enlarged. There are multiple mediastinal vascular clips and sternal sutures consistent with prior CABG surgery. There appear to be changes of COPD. No pleural effusion. No focal consoli dation. Note is again made lower cervical fusion apparatus. IMPRESSION: No evidence of acute process. RADIATION DOSE DELIVERED: Total DLP
[2020-05-29 11:50] LABS: ALT 17 U/L (14-59); AST 14 U/L (15-37); Albumin 3.1 g/dL (3.4-5.0); Alkaline Phosphatase 70 U/L (46-116); Anion Gap 6.6 mmol/L (3-11); BUN 27 mg/dL (7-18); Bilirubin, Total 0.4 mg/dL (0.2-1.0); CO2 33.4 mmol/L (21.0-32.0); CREATININE 1.86 mg/dL (0.55-1.02); Calcium 9.1 mg/dL (8.5-10.1); Chloride 106 mmol/L (98-107); Estimated GFR 27.02 (mL/min/1.73m2); Glucose 64 mg/dL (74-106); Potassium 4.4 mmol/L (3.5-5.1); Sodium 146 mmol/L (136-145)
[2020-05-29 11:52] LABS: Magnesium 1.8 mg/dL (1.8-2.4); NT-proBNP 1666 pg/mL (<300)
[2020-05-29 11:53] LABS: Troponin I < 0.05 ng/mL (<0.06)
[2020-05-29] MEDS: Torsemide 20 MG TAB 80 MG PO (12:40)
[2020-05-29] MEDS: Acetaminophen 500 MG TAB 1000 MG PO (14:01)
[2020-05-29 14:03] LABS: Troponin I < 0.05 ng/mL (<0.06)
[2020-05-29] MEDS: Insulin Aspart 100 UNITS/ML UNIT 15 UNITS SC (14:25)
[2020-05-29] MEDS: metOLazone 2.5 MG TAB 5 MG PO (16:28)
[2020-05-29] MEDS: Enoxaparin 40 MG/0.4 ML SYR SC (16:29)
[2020-05-29] MEDS: Furosemide 100 MG/10 ML VIAL 80 MG IVP (16:30)
[2020-05-29] MEDS: Normal Saline Flush 10 ML SYR IVP (16:30)
--- NOTE | 2020-05-29 17:07 | W.PM.HP.N ---
Date of service: 05/29/20 Time of Service: 17:07 Assessment and Plan Assessment and plan (1) Heart failure with preserved ejection fraction, borderline, class III: Status: Acute Assessment and plan: Furosemide drip and oral metolazone. Monitor urinary output and monitor daily BMP. Try to achieve euvolemia with a dry weight of 274 pounds while avoiding worsening azotemia. (2) CAD (coronary artery disease), [place] coronary artery: Status: Chronic Assessment and plan: Patient's had no ischemic chest pain with her current exacerbation of CHF and so far troponins have been negative. Continue current dual antiplatelet therapy with aspirin and clopidogrel. Continue her Toprol-XL and her statin. Qualifiers: [place] vs. transplanted heart: [place] heart Associated angina: without angina Qualified Code(s): I25.10 - Atherosclerotic heart disease of [place] coronary artery without angina pectoris (3) [place] kidney injury: Status: Acute Assessment and plan: Monitor renal function while trying to achieve euvolemia. Avoid NSAIDs. Qualifiers: Acute renal failure type: unspecified Chronic kidney disease stage: unspecified stage Qualified Code(s): N17.9 - Acute kidney failure, unspecified; N18.9 - Chronic kidney disease, unspecified (4) Diabetes mellitus: Status: Chronic Assessment and plan: Continue home dose of insulin along with sliding scale NovoLog. Check glycohemoglobin A1c to assess long-term control. Try to avoid hypoglycemia. Patient had asymptomatic hypoglycemia upon admission to the medical/surgical floor which was readily corrected with some orange juice. 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: with chcf use Diabetes mellitus complication status: with kidney complications Diabetes mellitus complication detail: with chronic kidney disease History of Present Illness History of Present Illness Chief Complaint: Dyspnea Narrative: 69-year-old female with a past medical history of heart failure with preserved ejection fraction (57%) NYHA class III, atrial fibrillation/flutter, COPD, coronary artery disease with three-vessel CABG and left atrial appendage excision on 01/03/2019 who underwent cardiac catheterization May 11, 2020 who underwent implantation of a CardioMEMS PA sensor device in her left pulmonary artery performed by Dr. Hector Helms at [facility]. Patient states that she has had progressive weight gain and increasing abdominal girth over the last couple weeks. She reportedly has had a 14 pound weight gain. Her reported dry weight is turned 74 pounds. She is now up to 288 pounds. 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 She is supposed to be reporting in her CardioMEMS reading daily. According to notes from [facility] her pressures were 19 on May 27 and 21 on May 26 and she forgot to do her CardioMEMS yesterday. When the heart failure clinic checked in with her today she told him that she was going to the emergency room. Evaluation in the ER included routine labs including CBC and CMP along with proBNP and troponin levels. Routine troponin was less than 0.05?3 sets. proBNP was elevated at 1600 CBC showed a stable chronic anemia with hemoglobin 9.3 g. Chest 2 Views reportedly showed no acute process. She has COPD and evidence of prior coronary bypass graft. No pleural effusions or consolidation was seen. EKG reportedly demonstrated normal sinus rhythm. Treatment in the emergency department included torsemide 80 mg orally. Flynn catheter was placed. Patient is subsequently being admitted to the medical/surgical floor on telemetry monitoring for furosemide drip. She was given an 80 mg bolus of furosemide and started on a drip at 10 mg an hour. The goal will be to diurese her to her dry weight of 274 pounds while monitoring her renal function and avoiding worsening azotemia. Review of Systems All systems reviewed & are unremarkable except as noted in HPI and below Constitutional Constitutional: Denies chills, Reports fatigue, Denies fever(s), Reports lethargy and Reports weight gain Cardiovascular Cardiovascular: Denies chest pain, Denies chest pain with activity, Denies rapid heart rate, Reports edema, Reports leg edema, Denies lightheadedness, Denies radiating jaw, neck or arm pain, Reports dyspnea, Reports dyspnea on exertion, Reports orthopnea and Reports paroxysmal nocturnal dyspnea Respiratory Respiratory: Denies chest congestion, Reports cough, Denies excessive phlegm production, Reports dyspnea and Reports dyspnea on exertion Gastrointestinal Gastrointestinal: Reports bloating, Denies nausea and Denies vomiting Endocrine Endocrine: Reports fatigue [facility] Medical History (Updated 05/29/20 @ 20:18 by Clarence Caban) Abnormal mammography 08/10/06 Acute kidney injury superimposed on chronic kidney disease Altered mental status Anemia Ankle pain (03/13/14) Atrial fibrillation paroxysmal, onset 2015, anticoagulated w/ Xarelto; anticoagulation discontinued after left atrial appendage excision 01/03/2019 Atrial fibrillation Atrial flutter Carpal tunnel syndrome Carpal tunnel syndrome (08/10/06) BILATERAL R S/P SURGERY Cervical disc disorder with myelopathy (08/21/08) S/P surgery x 2 Cervical spondylosis with myelopathy Chest pain Neg Stress test Chronic obstructive lung disease CKD (chronic kidney disease) stage 3, GFR 30-59 ml/min Cr about 2.5 Constipation Dehydration Diabetes mellitus Diabetes mellitus 09/20/10 Positive Microalbumin Diastolic CHF Dysuria Essential hypertension Folate deficiency (02/15/16) Gout Gout (07/06/11) Gram-positive bacteremia HAP (hospital-acquired pneumonia) (01/15/19) HCAP (healthcare-associated pneumonia) Hepatomegaly 06/10/04 Hip joint inflamed (09/03/15) Hip pain, left Hip pain, right Hyperglycemia Hyperlipidemia (08/10/00) Hypertension Hypomagnesemia Hypoxia Low back pain (04/10/03) DISC HERNIATION L4. MULTILEVEL DJD/SPINAL STENOSIS BY MRI; S/P surgery Lump in neck Menopausal syndrome 07/11/03 Muscle fatigue 03/04/13 PAF (paroxysmal atrial fibrillation) Posterior tibial tendon dysfunction 02/03/16 Postmenopausal bleeding neg. endometrial biopsy Postoperative wound dehiscence (12/23/15) Prerenal azotemia Primary osteoarthritis of left hip (09/17/15) Pulmonary hypertension Renal impairment (07/11/03) ADRENAL MASS. F/U W/ KINLAW positive microalbumin Restless leg syndrome Rotator cuff syndrome (08/01/09) Shingles Smoker (06/30/16) 01/17/17 1-2 cig/wk Spinal stenosis of lumbar region (02/15/16) Spinal stenosis of lumbar region at multiple levels Tarsal tunnel syndrome 06/11/13 Tarsal tunnel syndrome (06/11/13) Trochanteric bursitis 03/18/13 Upper respiratory tract infection (08/03/15) UTI (urinary tract infection) UTI (urinary tract infection) Vitamin D deficiency Vitamin D deficiency Weakness Surgical History Arthrodesis right 2nd toe Cataract (01/07/14) FOLLOWED BY [employer] cervical repair (~10/2008) C6-C7 DISK; RECURRENT SURGERY Cholecystectomy (07/31/13) Endometrial Biopsy NEG H/O arthrodesis right second toe H/O Spinal surgery multiple spine surgeries; low back x 2; She had multilevel DJD and spinal stenosis; disc herniation. 2008-cervical repair; C6-C7 disc; recurrent surgery. History of bilateral tubal ligation 09/11/80 History of gynecologic surgery endometrial biopsy-neg History of hip surgery 11/10/15 left hip arthroplasty 12/04/15-placement of wound VAC to left hip History of orthopedic surgery 09/11/97 tarsal tunnel release Left eye surgery 12/31/17 Ligation of fallopian tube (~1980) Open Carpal Tunnel release Right wrist surgery 10/26/17 Rotator Cuff Repair (~1980) S/P CABG (coronary artery bypass graft) (01/03/19) 4 vessel CABG [place] [facility] [place] S/P carpal tunnel release S/P cholecystectomy 09/11/12 S/P rotator cuff repair 09/11/80 SPINE SURGERY Multiple spine surgeries, low back x 2. She had multilevel DJD and spinal stenosis, disc herniation Status post incision and drainage 12/04/15 left hip surgical wound dehiscence and infection tarsal tunnel release (~1997) Total replacement of hip [facility]; LEFT HIP Family History Mother Diabetes Essential hypertension Personal history of malignant neoplasm KIDNEY/LIVER/BRAIN Heart disease Hyperlipidemia Stroke Asthma Father Diabetes Essential hypertension Personal history of malignant neoplasm BONE Heart disease Asthma Sister Diabetes Essential hypertension Depression Heart disease Asthma Grandfather No problems noted. Grandfather No problems noted. Grandmother Personal history of malignant neoplasm UTERINE Grandmother Diabetes Aunt Personal history of malignant neoplasm BREAST Brother Hyperlipidemia Stroke Sister Asthma Son Asthma Daughter Depression Asthma Daughter Asthma Daughter Depression Neoplasm Asthma Brother No problems noted. 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 Pets and animals: Yes Pets and animals: cat(s), dog(s) and horse(s) What type of physical activity do you participate in: none Saniya/Confucianist: Lutheran Special saniya needs: No Do you feel safe at home: Yes Do you feel safe in your relationship?: Yes Meds Home Medications and Allergies Home Medications Medication Instructions Recorded Confirmed Type folic acid 1 mg tablet 1 mg PO DAILY #90 tab 05/21/18 05/29/20 Rx meclizine 12.5 mg tablet 25 mg PO TID PRN #60 tab 12/17/18 05/29/20 Rx lancets 33 gauge #100 each 12/18/18 05/21/20 Rx magnesium hydroxide [Milk of 30 ml PO PRN PRN 01/15/19 05/29/20 History Magnesia] polyethylene glycol 3350 [Miralax] 1 g PO PRN PRN 01/15/19 05/29/20 History acetaminophen [Tylenol Extra 1,000 mg PO Q8H PRN PRN #0 tab 01/22/19 05/29/20 Rx Strength] aspirin [Aspir-81] 81 mg PO DAILY #30 tab 01/22/19 05/29/20 Rx lancets 25 gauge #100 each 01/29/19 05/21/20 Rx albuterol sulfate 2.5 mg INHALATION Q2H PRN PRN #0 ml 02/12/19 05/29/20 Rx epinephrine 0.3 mg/0.3 mL 0.3 mg IM ONCE #2 dose 04/29/19 05/29/20 Rx injection, auto-injector B-complex with vitamin C 1 tab PO DAILY 09/19/19 05/29/20 History atorvastatin 40 mg tablet 40 mg PO DAILY #90 tab-cap 10/31/19 05/29/20 Rx duloxetine 60 mg capsule,delayed 60 mg PO DAILY #90 tab-cap 10/31/19 05/29/20 Rx release gabapentin 600 mg tablet 600 mg PO TID #270 tab-cap 10/31/19 05/29/20 Rx pen needle, diabetic 31 gauge x #450 each 10/31/19 05/21/20 Rx 1/4 ropinirole 2 mg tablet 2 mg PO QPM PRN #90 tab 10/31/19 05/29/20 Rx baclofen 10 mg tablet 10 mg PO TID #90 tab 12/04/19 05/29/20 Rx sitagliptin 25 mg tablet 25 mg PO DAILY #90 tab 12/17/19 05/29/20 Rx blood sugar diagnostic #300 each 12/24/19 05/21/20 Rx insulin aspart U-100 100 unit/mL 15 unit SC TID #30 ml 12/24/19 05/29/20 Rx (3 mL) subcutaneous pen estradiol 1 gm VG DAILY #42.5 gm 01/23/20 05/29/20 Rx omeprazole 40 mg capsule,delayed 40 mg PO BID #180 cap 02/11/20 05/29/20 Rx release insulin glargine 100 unit/mL (3 35 unit SC BID #90 ml 02/25/20 05/29/20 Rx mL) subcutaneous pen metoprolol succinate 100 mg 100 mg PO DAILY #90 tab 02/25/20 05/29/20 Rx tablet,extended release 24 hr calcium fpvj-M1-fystmzptp vitaliy 2 cap PO DAILY 03/11/20 05/29/20 History jzoyck-crognjcr-ermrsgm 1 cap PO TID #90 cap 03/16/20 05/29/20 Rx 6,000-19,000-30,000 unit capsule,delayed rel metolazone 5 mg tablet 5 mg PO DAILY 03/16/20 05/29/20 History allopurinol 100 mg tablet 100 mg PO DAILY #90 tab-cap 05/05/20 05/29/20 Rx budesonide-formoterol HFA 160 2 puff IH BID #10.2 gm 05/05/20 05/29/20 Rx mcg-4.5 mcg/actuation aerosol inhaler ergocalciferol (vitamin D2) 1,250 50,000 unit PO M-W- #36 tab-cap 05/05/20 05/29/20 Rx mcg (50,000 unit) capsule clopidogrel 75 mg tablet 75 mg PO DAILY 05/21/20 05/29/20 History potassium chloride 20 mEq 20 meq PO BID #180 tab 05/21/20 05/29/20 Rx tablet,extended release torsemide 20 mg tablet 40 mg PO DAILY #180 tab 05/21/20 05/29/20 Rx glipizide 10 mg PO DAILY 05/29/20 05/29/20 History Allergies Allergy/AdvReac Type Severity Reaction Status Date / Time oxycodone Allergy Severe Psychosis Verified 05/29/20 10:09 venom-honey bee Allergy Severe ANAPHYLAXIS Verified 05/29/20 10:09 adhesive Allergy BLISTERS Verified 05/29/20 10:09 Exam Narrative Exam Narrative: Morbidly obese female in no acute distress alert and oriented person place time circumstance. HEENT unremarkable. Neck is supple with overt JVD to the angle of her jaw. Lungs with bibasilar rales no rhonchi or wheezing. Heart is regular rate and rhythm Abdomen is obese soft but distended without palpable masses no bruits. Lower extremities with 2+ pitting edema over feet and ankles and pretibial surfaces. Neuro exam no focal cranial nerve deficits normal range of motion and strength in both upper and lower extremities. Sensation intact light touch Results Labs Result diagrams: 05/29/20 11:12 05/29/20 11:12 Labs: Laboratory Results - last 24 hr 05/29/20 05/29/20 05/29/20 10:45 11:12 11:12 WBC RBC Hgb Hct MCV MCH MCHC RDW Plt Count MPV Immature Gran % Neutrophils % Lymphocytes % Monocytes % Eosinophils % Basophils % Nucleated RBC % Absolute Neutrophils Absolute Lymphocytes Absolute Monocytes Absolute Eosinophils Absolute Basophils RBC Morphology Polychromasia Hypochromasia Poikilocytosis Sodium 146 H Potassium 4.4 Chloride 106 Carbon Dioxide 33.4 H Anion Gap 6.6 BUN 27 H Creatinine 1.86 H Estimated GFR/1.73 m2 27.02 Glucose 64 L Calcium 9.1 Magnesium 1.8 Total Bilirubin 0.4 AST 14 L ALT 17 Alkaline Phosphatase 70 Troponin I < 0.05 NT-Pro-B Natriuret Pep 1666 H Total Protein 7.0 Albumin 3.1 L TSH Urine Color Yellow Urine Clarity Clear Urine pH 7.0 Ur Specific [place] 1.020 Urine Protein Negative Urine Ketones Negative Urine Blood Negative Urine Nitrite Negative Urine Bilirubin Negative Urine Urobilinogen 0.2 Ur Leukocyte Esterase Negative Urine Glucose Negative 05/29/20 05/29/20 05/29/20 11:12 11:12 13:20 WBC 11.06 H RBC 4.32 Hgb 9.3 L Hct 34.4 L MCV 79.6 L MCH 21.5 L MCHC 27.0 L RDW 18.1 H Plt Count 384 MPV 9.7 Immature Gran % 0.3 Neutrophils % 66.0 Lymphocytes % 13.4 Monocytes % 6.6 Eosinophils % 12.5 Basophils % 1.2 Nucleated RBC % 0 Absolute Neutrophils 7.30 H Absolute Lymphocytes 1.48 Absolute Monocytes 0.73 Absolute Eosinophils 1.38 H Absolute Basophils 0.13 RBC Morphology See below Polychromasia Present Hypochromasia 1+ Poikilocytosis 1+ Sodium Potassium Chloride Carbon Dioxide Anion Gap BUN Creatinine Estimated GFR/1.73 m2 Glucose Calcium Magnesium Total Bilirubin AST ALT Alkaline Phosphatase Troponin I < 0.05 NT-Pro-B Natriuret Pep Total Protein Albumin TSH 2.50 Urine Color Urine Clarity Urine pH Ur Specific [place] Urine Protein Urine Ketones Urine Blood Urine Nitrite Urine Bilirubin Urine Urobilinogen Ur Leukocyte Esterase Urine Glucose Last Vital Signs Temp 36.8 C 05/29/20 15:27 Pulse 64 05/29/20 15:27 Resp 20 05/29/20 15:27 BP 96/60 L 05/29/20 15:27 Pulse Ox 98 05/29/20 15:27 COVID-19 Screening Have you,or household,traveled outside [place] in last 14 days?: Yes Had IN PERSON contact w/suspected or confirmed C-19 person: No
[2020-05-29 19:45] LABS: Troponin I < 0.05 ng/mL (<0.06)
[2020-05-29] MEDS: Potassium Chloride 20 MEQ TABCR PO (20:21)
[2020-05-29] MEDS: Gabapentin 600 MG TAB PO (20:21)
[2020-05-29] MEDS: Acetaminophen 325 MG TAB PO (20:21)
[2020-05-29] MEDS: Creon, Lipase 6,000 CAPCR 1 CAP PO (20:21)
[2020-05-29] MEDS: Budesonide/Formoterol 160/4.5 6 GM 60 PUFF INH IH (20:23)
[2020-05-29] MEDS: Omeprazole 20 MG CAPCR 40 MG PO (20:23)
[2020-05-30] VITALS (9 sets, daily range): BP systolic 93–129; BP diastolic 60–69; PULSE 63–89; RESP 16–20; TEMP 36.4–37.4; O2SAT 89–96
[2020-05-30 01:37] LABS: COVID-19 RT-PCR UVMMC Result Negative (Negative)
[2020-05-30] MEDS: Budesonide/Formoterol 160/4.5 6 GM 60 PUFF INH IH ×2 (07:38→20:42)
[2020-05-30] MEDS: metOLazone 2.5 MG TAB 5 MG PO (08:23)
[2020-05-30] MEDS: Omeprazole 20 MG CAPCR 40 MG PO ×2 (08:24→20:42)
[2020-05-30] MEDS: Gabapentin 600 MG TAB PO ×2 (08:24→20:42)
[2020-05-30] MEDS: Aspirin E.C. 81 MG TABEC PO (08:24)
[2020-05-30] MEDS: Creon, Lipase 6,000 CAPCR 1 CAP PO ×3 (08:24→20:42)
[2020-05-30] MEDS: Folic Acid 1 MG TAB PO (08:24)
[2020-05-30] MEDS: Vitamins B Comp w/C TAB 1 TAB PO (08:24)
[2020-05-30] MEDS: Clopidogrel 75 MG TAB PO (08:24)
[2020-05-30] MEDS: Potassium Chloride 20 MEQ TABCR PO ×2 (08:24→20:42)
[2020-05-30] MEDS: Atorvastatin 40 MG TAB PO (08:24)
[2020-05-30] MEDS: Allopurinol 100 MG TAB PO (08:24)
[2020-05-30 08:25] LABS: Abs Immature Grans 0.04 10^3/uL (0.0-0.06); Absolute Basophil Count 0.11 10^3/uL (0.0-0.2); Absolute Eosinophil Count 1.28 10^3/uL (0.0-0.7); Absolute Lymphocyte Count 1.91 10^3/uL (1.2-3.4); Absolute Monocyte Count 0.81 10^3/uL (0.1-0.8); Absolute Neutrophil Count 6.09 10^3/uL (1.2-6.7); Basophils % 1.1; Eosinophils % 12.5; HCT 35.1 % (36.0-46.0); HGB 9.7 g/dL (11.2-15.7); Immature Grans % 0.4; Lymphocytes % 18.7; MCH 21.6 pg (27.0-33.0); MCHC 27.6 % (32.0-36.0); MPV 9.5 fL (8.0-11.0); Monocytes % 7.9; Neutrophils % 59.4; Nucleated RBC 0 %; Platelet Count 404 10^3/uL (130-400); RDW 18.4 % (11.7-14.6); WBC 10.24 10^3/uL (4.4-10.8)
[2020-05-30] MEDS: DULoxetine 30 MG CAP 60 MG PO (08:33)
[2020-05-30 08:42] LABS: Anion Gap 4.9 mmol/L (3-11); BUN 34 mg/dL (7-18); CO2 38.1 mmol/L (21.0-32.0); CREATININE 2.21 mg/dL (0.55-1.02); Calcium 9.4 mg/dL (8.5-10.1); Chloride 98 mmol/L (98-107); Estimated GFR 22.15 (mL/min/1.73m2); Glucose 103 mg/dL (74-106); Magnesium 1.6 mg/dL (1.8-2.4); NT-proBNP 1782 pg/mL (<300); Potassium 3.8 mmol/L (3.5-5.1); Sodium 141 mmol/L (136-145)
[2020-05-30 08:56] LABS: Anisocytosis 1+; Diff Comment RBC Morph Reviewed; Hypochromasia 2+
[2020-05-30 08:57] LABS: Microcytosis 1+; Poikilocytes 1+
--- NOTE | 2020-05-30 12:08 | PGE_ITS ---
Date of Service Date of service: 05/30/20 Time of Service: 12:08 Assessment and Plan Assessment and plan (1) Heart failure with preserved ejection fraction, borderline, class III: Status: Acute Assessment and plan: Wt down 3 kg with lasix drip Now on RA at rest and comfortable w/o resp distress. Improvment in edema. Decrease lasix to 5mg/hr (creatinine increased). Monitor wt., I&O's. Low Na diet. (2) CKD stage 4 due to type 2 diabetes mellitus: Status: Chronic Assessment and plan: Creatinine 1.72>1.86>2.21 Decrease lasix drip Monitor (3) Diabetes mellitus: Status: Chronic Assessment and plan: Low of 49 yesterday late afternoon. Glucose now 101. Adjust basal/bolus insulin as needed. 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 On dual platelet therapy. No c/o CP. Qualifiers: [place] vs. transplanted heart: [place] heart Associated angina: without angina Qualified Code(s): I25.10 - Atherosclerotic heart disease of [place] coronary artery without angina pectoris Subjective Subjective Patient reports: no new complaints and feels better Interval history since last seen: Improved ease of breathing. She notes less UE and LE edema. No CP, palpitations Exam Const General: cooperative and no acute distress Nutritional Appearance: obese Resp Effort & Inspection: normal respiratory effort Auscultation: clear to auscultation bilaterally Cardio Rate: regular rate Rhythm: regular rhythm Heart Sounds: S1 normal and S2 normal GI Inspection: obesity Palpation: soft Auscultation: normal bowel sounds Extrem General: edema (Nonpitting of both pretibial areas.) Psych Appearance: grossly normal Mental Status: mental status grossly normal Speech and Movement: speech and movement normal Mood: congruent mood Affect: normal affect Thought Process: normal Thought Content: normal Objective Last Vital Signs Temp 37.4 C 05/30/20 07:38 Pulse 78 05/30/20 07:38 Resp 20 05/30/20 07:38 BP 100/60 05/30/20 08:20 Pulse Ox 90 L 05/30/20 07:39 Laboratory Results - last 24 hr 05/29/20 05/29/20 05/29/20 11:12 13:20 18:55 WBC RBC Hgb Hct MCV MCH MCHC RDW Plt Count MPV Immature Gran % Neutrophils % Lymphocytes % Monocytes % Eosinophils % Basophils % Nucleated RBC % Absolute Neutrophils Absolute Lymphocytes Absolute Monocytes Absolute Eosinophils Absolute Basophils RBC Morphology Hypochromasia Poikilocytosis Anisocytosis Microcytosis Sodium Potassium Chloride Carbon Dioxide Anion Gap BUN Creatinine Estimated GFR/1.73 m2 Glucose Calcium Magnesium Troponin I < 0.05 < 0.05 NT-Pro-B Natriuret Pep TSH 2.50 05/30/20 05/30/20 07:55 07:55 WBC 10.24 RBC 4.50 Hgb 9.7 L Hct 35.1 L MCV 78.0 L MCH 21.6 L MCHC 27.6 L RDW 18.4 H Plt Count 404 H MPV 9.5 Immature Gran % 0.4 Neutrophils % 59.4 Lymphocytes % 18.7 Monocytes % 7.9 Eosinophils % 12.5 Basophils % 1.1 Nucleated RBC % 0 Absolute Neutrophils 6.09 Absolute Lymphocytes 1.91 Absolute Monocytes 0.81 H Absolute Eosinophils 1.28 H Absolute Basophils 0.11 RBC Morphology See below Hypochromasia 2+ Poikilocytosis 1+ Anisocytosis 1+ Microcytosis 1+ Sodium 141 Potassium 3.8 Chloride 98 Carbon Dioxide 38.1 H Anion Gap 4.9 BUN 34 H Creatinine 2.21 H Estimated GFR/1.73 m2 22.15 Glucose 103 Calcium 9.4 Magnesium 1.6 L Troponin I NT-Pro-B Natriuret Pep 1782 H TSH
[2020-05-30] MEDS: Acetaminophen 325 MG TAB PO (14:55)
--- NOTE | 2020-05-30 15:49 | PDOC.CMIN ---
- If Service Date Differs Date of service: 05/30/20 Time of Service: 15:49 Care Management Initial Assess REASON FOR HOSPITALIZATION:: Acute on Chronic CHF PAST MEDICAL HISTORY/PAST SURGICAL HISTORY:: Medical History (Updated 05/29/20 @ 20:18 by Clarence Caban). Abnormal mammography. 08/10/06. Acute kidney injury superimposed on chronic kidney disease. Altered mental status. Anemia. Ankle pain (03/13/14). Atrial fibrillation. paroxysmal, onset 2015, anticoagulated w/ Xarelto; anticoagulation discontinued after left atrial appendage excision 01/03/2019. Atrial fibrillation. Atrial flutter. Carpal tunnel syndrome. Carpal tunnel syndrome (08/10/06). BILATERAL. R S/P SURGERY. Cervical disc disorder with myelopathy (08/21/08). S/P surgery x 2. Cervical spondylosis with myelopathy. Chest pain. Neg Stress test. Chronic obstructive lung disease. CKD (chronic kidney disease) stage 3, GFR 30-59 ml/min. Cr about 2.5. Constipation. Dehydration. Diabetes mellitus. Diabetes mellitus. 09/20/10 Positive Microalbumin. Diastolic CHF. Dysuria. Essential hypertension. Folate deficiency (02/15/16). Gout. Gout (07/06/11). Gram-positive bacteremia. HAP (hospital-acquired pneumonia) (01/15/19). HCAP (healthcare-associated pneumonia). Hepatomegaly. 06/10/04. Hip joint inflamed (09/03/15). Hip pain, left. Hip pain, right. Hyperglycemia. Hyperlipidemia (08/10/00). Hypertension. Hypomagnesemia. Hypoxia. Low back pain (04/10/03). DISC HERNIATION L4. MULTILEVEL DJD/SPINAL STENOSIS BY MRI; S/P surgery. Lump in neck. Menopausal syndrome. 07/11/03. Muscle fatigue. 03/04/13. PAF (paroxysmal atrial fibrillation). Posterior tibial tendon dysfunction. 02/03/16. Postmenopausal bleeding. neg. endometrial biopsy. Postoperative wound dehiscence (12/23/15). Prerenal azotemia. Primary osteoarthritis of left hip (09/17/15). Pulmonary hypertension. Renal impairment (07/11/03). ADRENAL MASS. F/U W/ KINLAW. positive microalbumin. Restless leg syndrome. Rotator cuff syndrome (08/01/09). Shingles. Smoker (06/30/16). 01/17/17 1-2 cig/wk. Spinal stenosis of lumbar region (02/15/16). Spinal stenosis of lumbar region at multiple levels. Tarsal tunnel syndrome. 06/11/13. Tarsal tunnel syndrome (06/11/13). Trochanteric bursitis. 03/18/13. Upper respiratory tract infection (08/03/15). UTI (urinary tract infection). UTI (urinary tract infection). Vitamin D deficiency. Vitamin D deficiency. Weakness. Surgical History . Arthrodesis. right 2nd toe. Cataract (01/07/14). FOLLOWED BY OPTICAL EXPRESSIONS. cervical repair (~10/2008). C6-C7 DISK; RECURRENT SURGERY. Cholecystectomy (07/31/13). Endometrial Biopsy. NEG. H/O arthrodesis. right second toe. H/O Spinal surgery. multiple spine surgeries; low back x 2; She had multilevel DJD and spinal stenosis; disc herniation. 2008-cervical repair; C6-C7 disc; recurrent surgery. History of bilateral tubal ligation. 09/11/80. History of gynecologic surgery. endometrial biopsy-neg. History of hip surgery. 11/10/15 left hip arthroplasty 12/04/15-placement of wound VAC to left hip. History of orthopedic surgery. 09/11/97 tarsal tunnel release. Left eye surgery. 12/31/17. Ligation of fallopian tube (~1980). Open Carpal Tunnel release. Right wrist surgery. 10/26/17. Rotator Cuff Repair (~1980). S/P CABG (coronary artery bypass graft) (01/03/19). 4 vessel CABG and LA appendage excision, Dr. Nav Wang, [facility] [place], [place] S/P carpal tunnel release. S/P cholecystectomy. 09/11/12. S/P rotator cuff repair. 09/11/80. SPINE SURGERY. Multiple spine surgeries, low back x 2. She had multilevel DJD and spinal stenosis, disc herniation. Status post incision and drainage. 12/04/15 left hip surgical wound dehiscence and infection. tarsal tunnel release (~1997). Total replacement of hip. [facility]; LEFT HIP PREVIOUS FUNCTIONAL STATUS/SOCIAL/FAMILY SUPPORTS:: Ann-Marie resides in [place] with her daughter, Elli, and 18 year old granddaughter. She is and has four adult children. Ann-Marie spends her time at home watching television, crocheting, baking, and shares her dog rarely leaves her side when she is home. 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 Her daughter, Elli, helps to care for her at home. CURRENT FUNCTIONAL STATUS:: Ann-Marie was sitting up in her chair when CM met with her. She was pleasant and engaged in conversation. She reported that she came to the ER when she noticed that she had gained 14lbs. She stated that she has been diaresing and has already lost 6 lbs. She reported that as soon as she is back to baseline, she will be ready to go home. CM will continue to follow. ADVANCE DIRECTIVES:: On file at [facility]; daughter Elli Griggs is healthcare agent. Has patient been provided with info about the portal/API?: Yes Did the patient sign up for the portal?: No CODE STATUS:: DNR/DNI INSURANCE COVERAGE / FINANCIAL ISSUES:: MCR/ GIL CURRENT HOME/COMMUNITY SERVICES/EQUIPMENT:: Ann-Marie owns a FWW, several canes, a high rise for her toilet, a shower chair, and a commode. A Home Health nurse comes to her home weekly. Ann-Marie also has home oxygen through [employer], which she primarily uses at night. PRIMARY CARE PHYSICIAN:: Laisha Mcmahon MD POTENTIAL DISCHARGE NEEDS:: Follow up appointments. PATIENT/FAMILY EDUCATION NEEDS:: Discharge instructions, limitations, follow-up plan of care, including Ask Me Three and self-management. ANTICIPATED BARRIERS TO DISCHARGE:: None identified. TRANSPORTATION:: Via private vehicle by family. 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 Her daughter, Elli, will transport her home via private vehicle when ready. CM to continue to follow.
[2020-05-30] MEDS: Enoxaparin 40 MG/0.4 ML SYR SC (15:59)
[2020-05-30] MEDS: Insulin Aspart 300 UNITS/3 ML PEN 15 UNITS SC (16:35)
[2020-05-30] MEDS: Insulin Aspart 300 UNITS/3 ML PEN SC (16:36)
[2020-05-30] MEDS: Docusate Sodium 100 MG CAP PO (20:42)
[2020-05-30] MEDS: rOPINIRole 1 MG TAB 2 MG PO (20:42)
[2020-05-30] MEDS: Insulin Glargine 300 UNITS/3 ML PEN 25 UNITS SC (20:43)
[2020-05-31 03:31] VITALS: BP 104/61; PULSE 80; RESP 17; TEMP 36; O2SAT 94
[2020-05-31 07:20] VITALS: BP 96/64; PULSE 79; RESP 18; TEMP 36.3; O2SAT 96
[2020-05-31 07:52] LABS: Anion Gap 7.1 mmol/L (3-11); BUN 49 mg/dL (7-18); CO2 37.9 mmol/L (21.0-32.0); CREATININE 2.49 mg/dL (0.55-1.02); Calcium 9.4 mg/dL (8.5-10.1); Chloride 98 mmol/L (98-107); Glucose 120 mg/dL (74-106); Potassium 3.4 mmol/L (3.5-5.1); Sodium 143 mmol/L (136-145)
[2020-05-31 07:56] LABS: Abs Immature Grans 0.02 10^3/uL (0.0-0.06); Absolute Basophil Count 0.09 10^3/uL (0.0-0.2); Absolute Eosinophil Count 1.29 10^3/uL (0.0-0.7); Absolute Lymphocyte Count 1.96 10^3/uL (1.2-3.4); Absolute Monocyte Count 0.85 10^3/uL (0.1-0.8); Absolute Neutrophil Count 5.49 10^3/uL (1.2-6.7); Basophils % 0.9; Eosinophils % 13.3; HCT 33.1 % (36.0-46.0); HGB 9.4 g/dL (11.2-15.7); Immature Grans % 0.2; Lymphocytes % 20.2; MCH 21.6 pg (27.0-33.0); MCHC 28.4 % (32.0-36.0); MCV 76.1 fL (80-95); MPV 9.6 fL (8.0-11.0); Monocytes % 8.8; Neutrophils % 56.6; Nucleated RBC 0 %; Platelet Count 394 10^3/uL (130-400); RBC 4.35 10^6/uL (3.93-5.22); RDW 18.2 % (11.7-14.6)
[2020-05-31] MEDS: DULoxetine 30 MG CAP 60 MG PO (08:06)
[2020-05-31] MEDS: Omeprazole 20 MG CAPCR 40 MG PO ×2 (08:06→20:49)
[2020-05-31] MEDS: Folic Acid 1 MG TAB PO (08:06)
[2020-05-31] MEDS: Metoprolol CR 100 MG TABCR PO (08:07)
[2020-05-31] MEDS: Vitamins B Comp w/C TAB 1 TAB PO (08:07)
[2020-05-31] MEDS: Atorvastatin 40 MG TAB PO (08:07)
[2020-05-31] MEDS: Creon, Lipase 6,000 CAPCR 1 CAP PO ×3 (08:07→20:49)
[2020-05-31] MEDS: Acetaminophen 325 MG TAB PO (08:07)
[2020-05-31] MEDS: Aspirin E.C. 81 MG TABEC PO (08:07)
[2020-05-31] MEDS: Clopidogrel 75 MG TAB PO (08:07)
[2020-05-31] MEDS: Gabapentin 600 MG TAB PO ×2 (08:07→20:49)
[2020-05-31] MEDS: Potassium Chloride 20 MEQ TABCR PO ×2 (08:07→20:49)
[2020-05-31] MEDS: Polyethylene Glycol 3350 17 GM PACKET PO (08:07)
[2020-05-31] MEDS: Allopurinol 100 MG TAB PO (08:07)
[2020-05-31] MEDS: Docusate Sodium 100 MG CAP PO (08:07)
[2020-05-31] MEDS: Insulin Aspart 300 UNITS/3 ML PEN 15 UNITS SC ×2 (08:08→11:43)
[2020-05-31] MEDS: Insulin Glargine 300 UNITS/3 ML PEN 25 UNITS SC ×2 (08:08→20:50)
--- NOTE | 2020-05-31 08:19 | PHA.REVIEW ---
Pharmacy Admission Review - Admission Clinical Review (Last Reviewed 05/29/20 @ 10:21 by Misbah Arellano MD) Heart failure with preserved ejection fraction, borderline, class III (Acute) [id number]-[id number] kidney injury (Acute) oxycodone Allergy (Severe, Verified 05/29/20 10:09) Psychosis venom-honey bee Allergy (Severe, Verified 05/29/20 10:09) ANAPHYLAXIS adhesive Allergy (Verified 05/29/20 10:09) BLISTERS Height 5 ft 10 in Weight 128 kg - Renal Dosing Renal Dosing: BUN 49 mg/dL (7-18) H D 05/31/20 06:28 Creatinine 2.49 mg/dL (0.55-1.02) H 05/31/20 06:28 Medications needing adjustments: Reviewed (CrCl ~31.9 based on ABW) List of meds needing interventions: if kidney fxn further declines will need to adjust LMWH dose - Anticoagulation Anticoagulation: Hgb 9.4 g/dL (11.2-15.7) L 05/31/20 06:28 Hct 33.1 % (36.0-46.0) L 05/31/20 06:28 Plt Count 394 10^3/uL (130-400) 05/31/20 06:28 Creatinine 2.49 mg/dL (0.55-1.02) H 05/31/20 06:28 DVT Prohphylaxis: Reviewed Medications: Enoxaparin Therapeutic Anticoagulation: Reviewed Medications: Aspirin - Opiate Usage Evaluate Pain Scale/Pains Meds: N/A Scheduled Bowel Reg ordered if on Opiates?: Yes (prn) - Relevant Labs Sodium 143 mmol/L (136-145) 05/31/20 06:28 Potassium 3.4 mmol/L (3.5-5.1) L 05/31/20 06:28 Chloride 98 mmol/L (98-107) 05/31/20 06:28 Magnesium 1.6 mg/dL (1.8-2.4) L 05/30/20 07:55 Electrolytes, C-Reactive P, ESR: Reviewed (Has scheduled PO potassium ordered) - DM Control DM Control: Glucose 120 mg/dL (74-106) H 05/31/20 06:28 Finger Stick Blood Glucose 130 Finger Stick Blood Glucose 130 Finger Stick Blood Glucose 130 Insulin Dosing: Reviewed (Glargine 25U BID plus aspart 15U AC with add'l sliding scale) - Heart Failure/CO Heart Failure/CO: Troponin I < 0.05 ng/mL (<0.06) 05/29/20 18:55 NT-Pro-B Natriuret Pep 1782 pg/mL (<300) H 05/30/20 07:55 EF%, MARTIR's, B-Blockers, Diuretics: Reviewed - BP Control BP Control: Blood Pressure 104/61 Blood Pressure 107/65 Blood Pressure 98/60 If elevated: Reviewed - Qtc Review If Elevated: Reviewed (QTc 426) - IV to PO Switch IV Medications: Reviewed - Home Meds Home Med List reviewed: Intervened (Added glipizide, adjusted metolazone dose (5x/week M-F), meclizine dose (1-2 tabs prn), baclofen dose (prn), torsemide dose (100mg daily)) Relevent Home Meds Not ordered & why?: Glipizide, torsemide (aspasrt per ss and lasix gtt ordered) - Current meds Current Medication Order Review: Reviewed
[2020-05-31 11:16] VITALS: BP 112/73; PULSE 84; RESP 18; TEMP 36.5; O2SAT 92
[2020-05-31] MEDS: Insulin Aspart 300 UNITS/3 ML PEN SC (11:44)
--- NOTE | 2020-05-31 11:56 | PGE_ITS ---
Date of Service Date of service: 05/31/20 Time of Service: 11:57 Assessment and Plan Assessment and plan (1) Heart failure with preserved ejection fraction, borderline, class III: Status: Acute Assessment and plan: Wt down another 1.1kg. No pedal edema but does have abdominal wall edema. Lungs are clear. Cont lasix drip. Monitor cr (2) CKD stage 4 due to type 2 diabetes mellitus: Status: Chronic Assessment and plan: Creatinine has trended upward to 2.49 (2.21 yes terday) Will monitor while on lasix drip. (3) CAD (coronary artery disease), [place] coronary artery: Status: Chronic Assessment and plan: Cont BB , statin, ASA, Plavix Stable w/o angina Qualifiers: [place] vs. transplanted heart: [place] heart Associated angina: without angina Qualified Code(s): I25.10 - Atherosclerotic heart disease of [place] coronary artery without angina pectoris (4) Diabetes mellitus: Status: Chronic Assessment and plan: Glucose 130, 199 this AM and at noon. Will increase AC insulin from 15 units to 18 units. 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 Slept OK No CP, palpitations. Exam Const General: cooperative and no acute distress Nutritional Appearance: obese Orientation: alert and oriented x3 Resp Effort & Inspection: normal respiratory effort Auscultation: clear to auscultation bilaterally Cardio Rate: regular rate Rhythm: regular rhythm Heart Sounds: S1 normal and S2 normal GI Inspection: obesity Palpation: soft Auscultation: normal bowel sounds Extrem General: no clubbing, cyanosis or edema Objective Last Vital Signs Temp 36.5 C 05/31/20 11:16 Pulse 84 05/31/20 11:16 Resp 18 05/31/20 11:16 BP 112/73 05/31/20 11:16 Pulse Ox 92 05/31/20 11:16 Laboratory Results - last 24 hr 05/29/20 05/31/20 05/31/20 14:10 06:28 06:28 WBC 9.70 RBC 4.35 Hgb 9.4 L Hct 33.1 L MCV 76.1 L MCH 21.6 L MCHC 28.4 L RDW 18.2 H Plt Count 394 MPV 9.6 Immature Gran % 0.2 Neutrophils % 56.6 Lymphocytes % 20.2 Monocytes % 8.8 Eosinophils % 13.3 Basophils % 0.9 Nucleated RBC % 0 Absolute Neutrophils 5.49 Absolute Lymphocytes 1.96 Absolute Monocytes 0.85 H Absolute Eosinophils 1.29 H Absolute Basophils 0.09 Sodium 143 Potassium 3.4 L Chloride 98 Carbon Dioxide 37.9 H Anion Gap 7.1 BUN 49 H D Creatinine 2.49 H Estimated GFR/1.73 m2 19.30 Glucose 120 H Calcium 9.4 COVID-19 PCR Negative Nasopharyn COVID-19 PCR Not Applicable Ref Test Perform Site [place] [facility]
--- NOTE | 2020-05-31 14:38 | CMPROGNOTE_ITS ---
- If Service Date Differs Date of service: 05/31/20 Time of Service: 14:38 Care Management Progress Note S/O: Ann-Marie was sitting up in her chair knitting when CM met with her. She reported that the provider would like her to remain at [facility] another night to continue lasix drip. She is agreeable to this. She stated that she took a shower today, and was able to walk all the way down and back without O2, although she required O2 once she returned to the room for a short time. She has asked if she can have a more portable O2 device, as it is hard on her back to carry around the heavy tanks. CM will continue to follow. A: Ann-Marie is a 69 year old female admitted to [facility] on 05/29/20 with CHF. P: Anticipate Ann-Marie will return home when medically cleared with a resumption of HH services. She will be driven home by family when ready. She will follow up with her PCP and discharge plan of care. CM will continue to follow.
[2020-05-31 15:56] VITALS: BP 110/67; PULSE 82; RESP 18; TEMP 36.6; O2SAT 92
[2020-05-31] MEDS: Budesonide/Formoterol 160/4.5 6 GM 60 PUFF INH IH ×2 (16:07→20:49)
[2020-05-31] MEDS: Enoxaparin 40 MG/0.4 ML SYR SC (17:02)
[2020-05-31 19:04] VITALS: BP 135/68; PULSE 81; RESP 19; TEMP 36.6; O2SAT 90
[2020-05-31] MEDS: rOPINIRole 1 MG TAB 2 MG PO (20:49)
[2020-05-31] MEDS: Nystatin POWDER 60 GM JAR TP (20:50)
[2020-05-31 23:30] VITALS: BP 107/64; PULSE 78; RESP 18; TEMP 36.9; O2SAT 95
[2020-06-01 05:07] VITALS: BP 97/66; PULSE 74; RESP 16; TEMP 36.4; O2SAT 96
[2020-06-01 06:51] LABS: Hemoglobin A1C 6.6 % (<5.7)
[2020-06-01 07:23] LABS: Abs Immature Grans 0.04 10^3/uL (0.0-0.06); Absolute Basophil Count 0.11 10^3/uL (0.0-0.2); Absolute Eosinophil Count 1.37 10^3/uL (0.0-0.7); Absolute Lymphocyte Count 1.94 10^3/uL (1.2-3.4); Absolute Monocyte Count 0.99 10^3/uL (0.1-0.8); Absolute Neutrophil Count 6.21 10^3/uL (1.2-6.7); Eosinophils % 12.9; HCT 34.5 % (36.0-46.0); HGB 9.6 g/dL (11.2-15.7); Immature Grans % 0.4; Lymphocytes % 18.2; MCH 21.1 pg (27.0-33.0); MCHC 27.8 % (32.0-36.0); MCV 75.8 fL (80-95); MPV 9.8 fL (8.0-11.0); Monocytes % 9.3; Neutrophils % 58.2; Nucleated RBC 0 %; Platelet Count 390 10^3/uL (130-400); RBC 4.55 10^6/uL (3.93-5.22); RDW 18.3 % (11.7-14.6); RDW-SD 49.4 fL; WBC 10.66 10^3/uL (4.4-10.8)
[2020-06-01 07:24] VITALS: BP 104/68; PULSE 75; RESP 17; TEMP 37.1; O2SAT 93
[2020-06-01 07:31] LABS: Anion Gap 6.4 mmol/L (3-11); BUN 59 mg/dL (7-18); CO2 37.6 mmol/L (21.0-32.0); Calcium 9.2 mg/dL (8.5-10.1); Chloride 97 mmol/L (98-107); Estimated GFR 18.36 (mL/min/1.73m2); Glucose 117 mg/dL (74-106); Potassium 3.3 mmol/L (3.5-5.1); Sodium 141 mmol/L (136-145)
[2020-06-01 07:35] VITALS: O2SAT 93
[2020-06-01] MEDS: DULoxetine 30 MG CAP 60 MG PO (07:40)
[2020-06-01] MEDS: Nystatin POWDER 60 GM JAR TP (07:40)
[2020-06-01] MEDS: Creon, Lipase 6,000 CAPCR 1 CAP PO (07:41)
[2020-06-01] MEDS: Vitamins B Comp w/C TAB 1 TAB PO (07:41)
[2020-06-01] MEDS: Atorvastatin 40 MG TAB PO (07:41)
[2020-06-01] MEDS: Omeprazole 20 MG CAPCR 40 MG PO (07:41)
[2020-06-01] MEDS: Folic Acid 1 MG TAB PO (07:42)
[2020-06-01] MEDS: Aspirin E.C. 81 MG TABEC PO (07:42)
[2020-06-01] MEDS: Potassium Chloride 20 MEQ TABCR PO (07:42)
[2020-06-01] MEDS: Clopidogrel 75 MG TAB PO (07:42)
[2020-06-01] MEDS: Allopurinol 100 MG TAB PO (07:42)
[2020-06-01] MEDS: Metoprolol CR 100 MG TABCR PO (07:42)
[2020-06-01] MEDS: Gabapentin 600 MG TAB PO (07:43)
[2020-06-01] MEDS: Ergocalciferol 50000 UNITS CAP PO (07:47)
[2020-06-01] MEDS: metOLazone 2.5 MG TAB 5 MG PO (07:52)
[2020-06-01] MEDS: Insulin Aspart 300 UNITS/3 ML PEN 18 UNITS SC (08:23)
[2020-06-01] MEDS: Insulin Aspart 300 UNITS/3 ML PEN SC (08:24)
[2020-06-01] MEDS: Insulin Glargine 300 UNITS/3 ML PEN 25 UNITS SC (08:24)
[2020-06-01] MEDS: Budesonide/Formoterol 160/4.5 6 GM 60 PUFF INH IH (09:01)
--- NOTE | 2020-06-01 09:16 | DSE_ITS ---
Date of service: 06/01/20 Time of Service: 09:16 DS: Diagnosis Discharge Diagnosis (1) Heart failure with preserved ejection fraction, borderline, class III: Status: Acute (2) CKD stage 4 due to type 2 diabetes mellitus: Status: Chronic (3) CAD (coronary artery disease), [place] coronary artery: Status: Chronic (4) Diabetes mellitus: Status: Chronic Discharge Plan Disposition Patient Disposition: HOME W/HOME HEALTH SERVICE Condition: Improving Discharge Details Reason For Visit: ACUTE ON CHRONIC CHF Admit Date/Time: 05/29/20 20:19 Admit Provider: Clarence Caban Attending Provider: Clarence Caban Primary Care Provider: Laisha Mcmahon [facility] Hospital Course: This is a 69-year-old female with a past medical history of heart failure with preserved ejection fraction (57%) NYHA class III, atrial fibrillation/flutter, COPD, coronary artery disease with three-vessel CABG and left atrial appendage excision on 01/03/2019 who underwent cardiac catheterization May 11, 2020 and implantation of a CardioMEMS PA sensor device in her left pulmonary artery performed by Dr. Hector Helms at [facility]. Patient states that she has had progressive weight gain and increasing abdominal girth over the last couple weeks. She reportedly has had a 14 pound weight gain. Her reported dry weight is turned 274 pounds. She is now up to 288 pounds. She reports that her green chainer had decreased her torsemide from 100 mg a day down to 20 mg daily because of acute kidney injury. She is supposed to be reporting in her CardioMEMS reading daily. According to notes from [facility] her pressures were 19 on May 27 and 21 on May 26 and she forgot to do her CardioMEMS yesterday. When the heart failure clinic checked in with her today she told him that she was going to the emergency room. Evaluation in the ER included routine labs including CBC and CMP along with proBNP and troponin levels. Routine troponin was less than 0.05?3 sets. proBNP was elevated at 1600 CBC showed a stable chronic anemia with hemoglobin 9.3 g. Chest 2 Views reportedly showed no acute process. She has COPD and evidence of prior coronary bypass graft. No pleural effusions or consolidation was seen. EKG reportedly demonstrated normal sinus rhythm. Treatment in the emergency department included torsemide 80 mg orally. Flynn catheter was placed. Patient is subsequently admitted to the medical/surgical floor on telemetry monitoring for furosemide drip. She was given an 80 mg bolus of furosemide and started on a drip at 10 mg an hour. She diuresed well with a 4 kg wt loss. Her pitting pedal edema resolved as did her BUE edema. Dietary information reviewed and low Na and fluid restriction emphasized. She will f/u with her PCP in 1-2 weeks. F/U with [facility] cardiology per their recommendations and when CardioMEMS monitoring warrants. Home Meds and New Rx's Prescriptions: New aspirin 81 mg Tablet,Delayed Release (Dr/Ec) 81 mg PO DAILY Qty: 0 RF: 0 Continued B-complex with vitamin C [Super B Complex-Vitamin C] Tablet 1 tab PO DAILY RF: 0 ropinirole 2 mg tablet 2 mg PO QPM PRN (Reason: restless leg(s)) Qty: 90 RF: 5 gabapentin 600 mg tablet 600 mg PO TID Qty: 270 RF: 12 atorvastatin 40 mg tablet 40 mg PO DAILY Qty: 90 RF: 6 duloxetine 60 mg capsule,delayed release(DR/EC) 60 mg PO DAILY Qty: 90 RF: 12 estradiol [Estrace] 0.01 % (0.1 mg/gram) cream 1 gm VG DAILY Qty: 42.5 RF: 4 metoprolol succinate 100 mg tablet extended release 24 hr 100 mg PO DAILY Qty: 90 RF: 3 Basaglar KwikPen U-100 Insulin 100 unit/mL (3 mL) insulin pen 35 unit SC BID Qty: 90 RF: 4 Creon 6,000-19,000 -30,000 unit capsule,delayed release(DR/EC) 1 cap PO TID Qty: 90 RF: 5 clopidogrel [Plavix] 75 mg tablet 75 mg PO DAILY RF: 0 potassium chloride [K-Tab] 20 mEq tablet extended release 20 meq PO BID Qty: 180 RF: 4 folic acid 1 mg tablet 1 mg PO DAILY Qty: 90 RF: 5 meclizine 12.5 mg tablet 25 mg PO TID PRN (Reason: dizziness) Qty: 60 RF: 3 epinephrine [EpiPen 2-Erick] 0.3 mg/0.3 mL auto-injector 0.3 mg IM ONCE Qty: 2 RF: 10 Januvia 25 mg tablet 25 mg PO DAILY Qty: 90 RF: 4 insulin aspart U-100 [Novolog Flexpen U-100 Insulin] 100 unit/mL (3 mL) insulin pen 15 unit SC TID Qty: 30 RF: 5 omeprazole 40 mg capsule,delayed release(DR/EC) 40 mg PO BID Qty: 180 RF: 4 budesonide-formoterol [Symbicort] 160-4.5 mcg/actuation HFA aerosol inhaler 2 puff IH BID Qty: 10.2 RF: 12 allopurinol 100 mg tablet 100 mg PO DAILY Qty: 90 RF: 12 ergocalciferol (vitamin D2) [Vitamin D2] 1,250 mcg (50,000 unit) capsule 50,000 unit PO Qty: 36 RF: 4 polyethylene glycol 3350 [Miralax] 17 gram Powder In Packet 1 g PO PRN PRNRF: 0 magnesium hydroxide [Milk of Magnesia] 400 mg/5 mL Suspension 30 ml PO PRN PRN (Reason: Constipation) RF: 0 acetaminophen [Tylenol Extra Strength] 500 mg Tablet 1,000 mg PO Q8H PRN PRN (Reason: Pain) Qty: 0 RF: 0 glipizide 10 mg tablet extended release 24hr 10 mg PO DAILY RF: 0 metolazone 5 mg tablet 5 mg PO 5XW RF: 0 torsemide 100 mg tablet 100 mg PO DAILY RF: 0 baclofen 10 mg tablet 10 mg PO TID PRNRF: 0 albuterol sulfate 2.5 mg /3 mL (0.083 %) Solution For Nebulization 2.5 mg INHALATION Q2H PRN PRN (Reason: shortness of breath or wheezing) Qty: 0 RF: 0 calcium onsi-[id number] vitaliy 133 mg calcium -133 unit-67 mg Capsule 2 cap PO DAILY RF: 0 Discontinued aspirin [Aspir-81] 81 mg Tablet,Delayed Release (Dr/Ec) 81 mg PO DAILY Qty: 30 RF: 0 No Action (DME) lancets 25 gauge misc See Dose Instructions .ROUTE .MEDSUPPLY Qty: 100 RF: 5 (DME) lancets [OneTouch Delica Lancets] 33 gauge misc See Dose Instructions .ROUTE DAILY Qty: 100 RF: 0 (DME) pen needle, diabetic [1st Tier Unifine Pentips] 31 gauge x 1/4 needle See Dose Instructions .ROUTE .MEDSUPPLY Qty: 450 RF: 5 (DME) Blood Glucose Test Strip See Dose Instructions .ROUTE .MEDSUPPLY Qty: 300 RF: 5 Discharge Instructions Instructions: Heart Failure (GEN) Additional Instructions: Resume Home Health Nursing Stand Alone Forms: Nursing Discharge Form Referrals: Laisha Mcmahon [place], [place] [Primary Care Provider] - 06/22/20 9:00 am Activity:: Activity as Tolerated Equipment/Supplies:: No Equipment Needed Diet:: Low Na, carb control Discharge Orders Discharge Orders: Discharge Order (Routine); Ordered 06/01/20 Ordered By: Naveed Kaplan Discharge Data Discharge Date/Time-TO BE ENTERED AT DEPARTURE: 06/01/20 11:08 DS: Summary Status at Discharge Functional status at discharge: independent ambulation Overall status at discharge: patient is back to baseline Mental Status: mental status grossly normal Speech and Movement: speech and movement normal Mood: congruent mood Affect: normal affect Exam Const General: cooperative Nutritional Appearance: obese Neck Neck: full ROM and no JVD Resp Effort & Inspection: normal respiratory effort Auscultation: clear to auscultation bilaterally Cardio Rate: regular rate Rhythm: regular rhythm Heart Sounds: S1 normal and S2 normal GI Inspection: obesity Palpation: soft Auscultation: normal bowel sounds Extrem General: no clubbing, cyanosis or edema Psych Appearance: grossly normal Mental Status: mental status grossly normal Speech and Movement: speech and movement normal Mood: congruent mood Affect: normal affect DS: Data Vitals/I&O Vitals and I&O: Vital Signs Temperature 37.1 C 06/01/20 07:24 Temperature Source Tympanic 06/01/20 07:24 Pulse 75 06/01/20 07:24 Pulse Rhythm Regular 06/01/20 07:35 Respiratory Rate 17 06/01/20 07:24 Respiratory Effort Non-Labored 06/01/20 07:35 Respiratory Depth Normal 06/01/20 07:35 Respiratory Pattern Normal 06/01/20 07:35 Blood Pressure 104/68 06/01/20 07:24 Pulse Oximetry 93 06/01/20 07:35 Oxygen Delivery Method Nasal Cannula 06/01/20 07:35 Oxygen Flow Rate 1 06/01/20 07:35 Pain Level 2 06/01/20 05:07 Comment 05/31/20 15:30 Intake & Output 05/31/20 05/31/20 06/01/20 11:59 23:59 11:59 Intake Total 742.25 / 1250.00 507.75 / 1250.00 Output Total 1900 / 2650 750 / 2650 3800 / 3800 Balance -1157.75 / -1400.00 -242.25 / -1400.00 -3800 / -3800 Weight 126.9 kg 127.1 kg Intake: IV 82.25 / 100.00 17.75 / 100.00 Oral 660 / 1150 490 / 1150 Output: Urine 1900 / 2650 750 / 2650 3800 / 3800 Other: Urine Color Pale Yellow Light [place] Urine Appearance Clear Clear Clear Urine Odor Strong Stool Size Moderate Stool Characteristics Formed Voiding Methods Indwelling Catheter Data Completed and Pending Labs on day of discharge: Labs from last 24 hours 06/01/20 06/01/20 05/30/20 06:09 06:09 07:55 WBC 10.66 RBC 4.55 Hgb 9.6 L Hct 34.5 L MCV 75.8 L MCH 21.1 L MCHC 27.8 L RDW 18.3 H Plt Count 390 MPV 9.8 Immature Gran % 0.4 Neutrophils % 58.2 Lymphocytes % 18.2 Monocytes % 9.3 Eosinophils % 12.9 Basophils % 1.0 Nucleated RBC % 0 Absolute Neutrophils 6.21 Absolute Lymphocytes 1.94 Absolute Monocytes 0.99 H Absolute Eosinophils 1.37 H Absolute Basophils 0.11 Sodium 141 Potassium 3.3 L Chloride 97 L Carbon Dioxide 37.6 H Anion Gap 6.4 BUN 59 H D Creatinine 2.60 H Estimated GFR/1.73 m2 18.36 Glucose 117 H Hemoglobin A1c 6.6 H Calcium 9.2 PFSH Medical History (Updated 05/31/20 @ 12:04 by Naveed Kaplan MD) Abnormal mammography 08/10/06 Acute kidney injury superimposed on chronic kidney disease Altered mental status Anemia Ankle pain (03/13/14) Atrial fibrillation paroxysmal, onset 2015, anticoagulated w/ Xarelto; anticoagulation discontinued after left atrial appendage excision 01/03/2019 Atrial fibrillation Atrial flutter Carpal tunnel syndrome Carpal tunnel syndrome (08/10/06) BILATERAL R S/P SURGERY Cervical disc disorder with myelopathy (08/21/08) S/P surgery x 2 Cervical spondylosis with myelopathy Chest pain Neg Stress test Chronic obstructive lung disease CKD (chronic kidney disease) stage 3, GFR 30-59 ml/min Cr about 2.5 Constipation Dehydration Diabetes mellitus Diabetes mellitus 09/20/10 Positive Microalbumin Diastolic CHF Dysuria Essential hypertension Folate deficiency (02/15/16) Gout Gout (07/06/11) Gram-positive bacteremia HAP (hospital-acquired pneumonia) (01/15/19) HCAP (healthcare-associated pneumonia) Hepatomegaly 06/10/04 Hip joint inflamed (09/03/15) Hip pain, left Hip pain, right Hyperglycemia Hyperlipidemia (08/10/00) Hypertension Hypomagnesemia Hypoxia Low back pain (04/10/03) DISC HERNIATION L4. MULTILEVEL DJD/SPINAL STENOSIS BY MRI; S/P surgery Lump in neck Menopausal syndrome 07/11/03 Muscle fatigue 03/04/13 PAF (paroxysmal atrial fibrillation) Posterior tibial tendon dysfunction 02/03/16 Postmenopausal bleeding neg. endometrial biopsy Postoperative wound dehiscence (12/23/15) Prerenal azotemia Primary osteoarthritis of left hip (09/17/15) Pulmonary hypertension Renal impairment (07/11/03) ADRENAL MASS. F/U W/ [facility]LA[facility] positive microalbumin Restless leg syndrome Rotator cuff syndrome (08/01/09) Shingles Smoker (06/30/16) 01/17/17 1-2 cig/wk Spinal stenosis of lumbar region (02/15/16) Spinal stenosis of lumbar region at multiple levels Tarsal tunnel syndrome 06/11/13 Tarsal tunnel syndrome (06/11/13) Trochanteric bursitis 03/18/13 Upper respiratory tract infection (08/03/15) UTI (urinary tract infection) UTI (urinary tract infection) Vitamin D deficiency Vitamin D deficiency Weakness Surgical History Arthrodesis right 2nd toe Cataract (01/07/14) FOLLOWED BY OPTICAL EXPRESSIONS cervical repair (~10/2008) C6-C7 DISK; RECURRENT SURGERY Cholecystectomy (07/31/13) Endometrial Biopsy NEG H/O arthrodesis right second toe H/O Spinal surgery multiple spine surgeries; low back x 2; She had multilevel DJD and spinal stenosis; disc herniation. 2009-cervical repair; C6-C7 disc; recurrent surgery. History of bilateral tubal ligation 09/11/80 History of gynecologic surgery endometrial biopsy-neg History of hip surgery 3/01/16 left hip arthroplasty 12/04/15-placement of wound VAC to left hip History of orthopedic surgery 09/11/97 tarsal tunnel release Left eye surgery 12/31/17 Ligation of fallopian tube (~1980) Open Carpal Tunnel release Right wrist surgery 10/26/17 Rotator Cuff Repair (~1980) S/P CABG (coronary artery bypass graft) (01/03/19) 4 vessel CABG and LA appendage excision, Dr. Nav Wang, [facility] [place], [place], [place] S/P carpal tunnel release S/P cholecystectomy 09/11/12 S/P rotator cuff repair 09/11/80 SPINE SURGERY Multiple spine surgeries, low back x 2. She had multilevel DJD and spinal stenosis, disc herniation Status post incision and drainage 12/04/15 left hip surgical wound dehiscence and infection tarsal tunnel release (~1997) Total replacement of hip [facility]; LEFT HIP Family History Mother Diabetes Essential hypertension Personal history of malignant neoplasm KIDNEY/LIVER/BRAIN Heart disease Hyperlipidemia Stroke Asthma Father Diabetes Essential hypertension Personal history of malignant neoplasm BONE Heart disease Asthma Sister Diabetes Essential hypertension Depression Heart disease Asthma Grandfather No problems noted. Grandfather No problems noted. Grandmother Personal history of malignant neoplasm UTERINE Grandmother Diabetes Aunt Personal history of malignant neoplasm BREAST Brother Hyperlipidemia Stroke Sister Asthma Son Asthma Daughter Depression Asthma Daughter Asthma Daughter Depression Neoplasm Asthma Brother No problems noted. 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
--- NOTE | 2020-06-01 11:12 | PDOC.CMDIS ---
LACE Index Scoring Tool - Questions: Length of Stay (in days): 3 Acuity (Admit via E.D.?): Yes Comorbidities: Diabetes w/o Complication, Chronic Pulmonary Disease, Liver or Renal Disease E.D. Visits: 3 - Answers: Total Score: 14 Risk of Readmission: High Risk Care Management Discharge Reason for Hospitalization: Acute on Chronic CHF Discharge Plan: Ann-Marie will return home when medically cleared with a resumption of RN services through [facility]. She will be driven home by family when ready. She will follow up with her PCP and discharge plan of care. Patient/Family Education Needs: Review discharge instructions, discuss Ask Me Three. Services Needed at Discharge: Home Health Care Services (RN-resumption)
== END 2020-06-01 11:08 | disposition home health service (06) | DRG 291 ==
LOC: ER 10:03 → MS 15:57
PROVIDERS: Family Medicine; Admitting Provider Internal Medicine; Emergency Provider Emergency Medicine; PCP Family Medicine; Visit Provider Internal Medicine
DX: I13.0 Hypertensive heart and chronic kidney disease with heart failure and stage 1 through stage 4 chronic kidney disease, or unspecified chronic kidney disease (principal); I50.33 Acute on chronic diastolic (congestive) heart failure; N17.9 Acute kidney failure, unspecified; I48.92 Unspecified atrial flutter; N18.4 Chronic kidney disease, stage 4 (severe); Z68.41 Body mass index [BMI] 40.0-44.9, adult; I25.10 Atherosclerotic heart disease of native coronary artery without angina pectoris; Z79.4 Long term (current) use of insulin; E11.649 Type 2 diabetes mellitus with hypoglycemia without coma; J44.9 Chronic obstructive pulmonary disease, unspecified; I48.0 Paroxysmal atrial fibrillation; M10.9 Gout, unspecified; E78.5 Hyperlipidemia, unspecified; I27.20 Pulmonary hypertension, unspecified; E66.9 Obesity, unspecified
CPT/HCPCS: 36415; 51702; 80048; 80053; 93005; 94640; 96372; 99223; 99232; 99239; 99285; J1650; U0003; 71046; 81003; 83036; 83735; 83880; 84443; 84484; 85025; 93010; 99220; 99225; J1815; J1940; J3490

== ENCOUNTER 2020-06-10 13:16 | Outpatient (REF) | payer MEDICARE, MEDICAID, SELFPAY ==
[2020-06-13 13:36] LABS: 2-Hydroxy Ethyl Flurazepam Not Detected ng/mL (Cutoff: 10); 6-monoacetylmorphine Not Detected ng/mL (Cutoff: 25); Alpha-Hydroxy Midazolam Not Detected ng/mL (Cutoff: 10); Alpha-Hydroxy Triazolam Not Detected ng/mL (Cutoff: 10); Alpha-Hydroxyalprazolam Not Detected ng/mL (Cutoff: 10); Alpha-OH-alprazolam Glucuronid Not Detected ng/mL (Cutoff: 50); Alprazolam Not Detected ng/mL (Cutoff: 10); Amphetamines Negative ng/mL (Cutoff: 500); Barbiturates Negative ng/mL (Cutoff: 200); Buprenorphine Not Detected ng/mL (Cutoff: 5); Chlordiazepoxide Not Detected ng/mL (Cutoff: 10); Clobazam Not Detected ng/mL (Cutoff: 10); Clonazepam Not Detected ng/mL (Cutoff: 10); Cocaine Negative ng/mL (Cutoff: 150); Codeine Not Detected ng/mL (Cutoff: 25); Comment Normal; Creatinine, U 36.2 mg/dL; Diazepam Not Detected ng/mL (Cutoff: 10); Dihydrocodeine Not Detected ng/mL (Cutoff: 25); EDDP Not Detected ng/mL (Cutoff: 25); Fentanyl Not Detected ng/mL (Cutoff: 2); Flurazepam Not Detected ng/mL (Cutoff: 10); Hydrocodone Not Detected ng/mL (Cutoff: 25); Hydromorphone Not Detected ng/mL (Cutoff: 25); Hydromorphone-3-beta-glucuroni Not Detected ng/mL (Cutoff: 100); Lorazepam Not Detected ng/mL (Cutoff: 10); Lorazepam Glucuronide Not Detected ng/mL (Cutoff: 50); Meperidine Not Detected ng/mL (Cutoff: 25); Methadone Not Detected ng/mL (Cutoff: 25); Midazolam Not Detected ng/mL (Cutoff: 10); Morphine Not Detected ng/mL (Cutoff: 25); N-Desmethylclobazam Not Detected ng/mL (Cutoff: 200); N-desmethyltapentadol Not Detected ng/mL (Cutoff: 50); Naloxone Not Detected ng/mL (Cutoff: 25); Norbuprenorphine Not Detected ng/mL (Cutoff: 5); Norfentanyl Not Detected ng/mL (Cutoff: 2); Norhydrocodone Not Detected ng/mL (Cutoff: 25); Normeperidine Not Detected ng/mL (Cutoff: 25); Noroxycodone Not Detected ng/mL (Cutoff: 25); Noroxymorphone Not Detected ng/mL (Cutoff: 25); O-desmethyltramadol Not Detected ng/mL (Cutoff: 25); Oxazepam Glucuronide Not Detected ng/mL (Cutoff: 50); Phencyclidine Negative ng/mL (Cutoff: 25); Prazepam Not Detected ng/mL (Cutoff: 10); Propoxyphene Not Detected ng/mL (Cutoff: 25); Specific Gravity 1.005; Tapentadol Not Detected ng/mL (Cutoff: 25); Temazepam Not Detected ng/mL (Cutoff: 10); Temazepam Glucuronide Not Detected ng/mL (Cutoff: 50); Tetrahydrocannabinol Negative ng/mL (Cutoff: 50); Tramadol Not Detected ng/mL (Cutoff: 25); Triazolam Not Detected ng/mL (Cutoff: 10); Zolpidem Phenyl-4-Carboxy acid Not Detected ng/mL (Cutoff: 10); pH 6.9
== END 2020-06-10 13:36 ==
LOC: LBN 13:16
PROVIDERS: PCP Family Medicine; Visit Provider Nurse Practitioner Family
DX: M96.1 Postlaminectomy syndrome, not elsewhere classified (principal); Z79.899 Other long term (current) drug therapy
CPT/HCPCS: 80307; 80347; 80364

== ENCOUNTER 2020-06-11 08:36 | Outpatient (REF) | payer MEDICARE, MEDICAID, SELFPAY ==
[2020-06-11 13:20] LABS: Abs Immature Grans 0.05 10^3/uL (0.0-0.06); Absolute Basophil Count 0.13 10^3/uL (0.0-0.2); Absolute Eosinophil Count 1.66 10^3/uL (0.0-0.7); Absolute Lymphocyte Count 2.12 10^3/uL (1.2-3.4); Basophils % 1.1; Eosinophils % 14.4; HCT 35.9 % (36.0-46.0); HGB 9.8 g/dL (11.2-15.7); Immature Grans % 0.4; Lymphocytes % 18.4; MCH 21.5 pg (27.0-33.0); MCHC 27.3 % (32.0-36.0); MCV 78.7 fL (80-95); Monocytes % 8.7; Nucleated RBC 0 %; Platelet Count 494 10^3/uL (130-400); RBC 4.56 10^6/uL (3.93-5.22); RDW 18.6 % (11.7-14.6); WBC 11.51 10^3/uL (4.4-10.8)
[2020-06-11 13:21] LABS: Absolute Neutrophil Count 6.56 10^3/uL (1.2-6.7)
[2020-06-11 13:28] LABS: ALT 21 U/L (14-59); AST 14 U/L (15-37); Albumin 3.3 g/dL (3.4-5.0); Alkaline Phosphatase 78 U/L (46-116); Anion Gap 5.4 mmol/L (3-11); Bilirubin, Total 0.5 mg/dL (0.2-1.0); CO2 40.6 mmol/L (21.0-32.0); CREATININE 2.83 mg/dL (0.55-1.02); Chloride 96 mmol/L (98-107); Estimated GFR 16.65 (mL/min/1.73m2); Glucose 79 mg/dL (74-106); NT-proBNP 631 pg/mL (<300); Sodium 142 mmol/L (136-145); Total Protein 6.8 g/dL (6.4-8.2)
[2020-06-11 13:41] LABS: BUN 91 mg/dL (7-18); Potassium 2.9 mmol/L (3.5-5.1)
[2020-06-11 13:48] LABS: Anisocytosis 1+; Diff Comment Diff Reviewed; Hypochromasia 1+; Microcytosis 1+; Poikilocytes 1+; Polychromasia Present
== END 2020-06-11 08:56 ==
LOC: LBN 08:36
PROVIDERS: PCP Family Medicine; Visit Provider Family Medicine
DX: I50.33 Acute on chronic diastolic (congestive) heart failure (principal)
CPT/HCPCS: 80053; 83880; 85025

== ENCOUNTER 2020-06-23 12:47 | Outpatient (REF) | payer MEDICARE, MEDICAID, SELFPAY ==
[2020-06-23 13:05] LABS: Abs Immature Grans 0.05 10^3/uL (0.0-0.06); Absolute Lymphocyte Count 2.73 10^3/uL (1.2-3.4); Absolute Monocyte Count 0.99 10^3/uL (0.1-0.8); Absolute Neutrophil Count 8.84 10^3/uL (1.2-6.7); Eosinophils % 12.6; HCT 35.1 % (36.0-46.0); HGB 9.7 g/dL (11.2-15.7); Immature Grans % 0.3; Lymphocytes % 18.7; MCH 21.4 pg (27.0-33.0); MCHC 27.6 % (32.0-36.0); MCV 77.5 fL (80-95); MPV 10.3 fL (8.0-11.0); Monocytes % 6.8; Neutrophils % 60.6; Nucleated RBC 0 %; Platelet Count 397 10^3/uL (130-400); RBC 4.53 10^6/uL (3.93-5.22); RDW-SD 50.4 fL; WBC 14.58 10^3/uL (4.4-10.8)
[2020-06-23 13:07] LABS: Absolute Basophil Count 0.15 10^3/uL (0.0-0.2); Absolute Eosinophil Count 1.84 10^3/uL (0.0-0.7)
[2020-06-23 13:22] LABS: Anisocytosis 1+; Diff Comment Diff Reviewed
[2020-06-23 13:23] LABS: Basophilic Stippling Present; Hypochromasia 1+; Microcytosis 1+; Poikilocytes 1+; Polychromasia Present
[2020-06-23 13:29] LABS: ALT 22 U/L (14-59); AST 16 U/L (15-37); Albumin 3.5 g/dL (3.4-5.0); Alkaline Phosphatase 81 U/L (46-116); Anion Gap 7.2 mmol/L (3-11); Bilirubin, Total 0.4 mg/dL (0.2-1.0); CO2 37.8 mmol/L (21.0-32.0); Chloride 100 mmol/L (98-107); Estimated GFR 18.36 (mL/min/1.73m2); Glucose 112 mg/dL (74-106); Potassium 4.5 mmol/L (3.5-5.1); Sodium 145 mmol/L (136-145); Total Protein 7.4 g/dL (6.4-8.2)
[2020-06-23 13:44] LABS: BUN 100 mg/dL (7-18)
[2020-06-23 18:05] LABS: NT-proBNP 785 pg/mL (<300)
== END 2020-06-23 13:07 ==
LOC: LBN 12:47
PROVIDERS: PCP Family Medicine; Visit Provider Family Medicine
DX: I50.33 Acute on chronic diastolic (congestive) heart failure (principal); E11.9 Type 2 diabetes mellitus without complications
CPT/HCPCS: 80053; 83880; 85025

== ENCOUNTER 2020-07-07 08:47 | Outpatient (CLI) | payer MEDICARE, MEDICAID, SELFPAY ==
[2020-07-07 09:14] VITALS: BP 110/70; PULSE 72; RESP 24; TEMP 36.3; O2SAT 92
[2020-07-07] MEDS: Omnipaque 240 MG/ML 50 ML BTL IJ (09:52)
[2020-07-07 09:53] VITALS: BP 128/50; PULSE 66; RESP 18; O2SAT 100
[2020-07-07] MEDS: methylPREDNISolone ACETATE 80 MG/ML VIAL IJ (09:53)
--- NOTE | 2020-07-07 09:55 | DI.RAD_ITS ---
EXAM: XR PAIN CLINIC LUMBAR SP 2V CLINICAL HISTORY: Dx: Lumbar Radiculopathy TECHNIQUE: 2D and realtime digital imaging was performed. COMPARISON: No exams were available for comparison FINDINGS: C-arm fluoroscopy was utilized by Dr. Singleton during reported caudal epidural steroid injection. Hard copi es show epidural injection at what appears to be the 3rd sacral segment level. Fluoro time, 26.7 seconds IMPRESSION: RADIATION DOSE DELIVERED: Total DLP
--- NOTE | 2020-07-07 10:03 | PDOC.PAIN_ITS ---
Pain Clinic Procedure Note Procedure Note Procedure Note: CANDAL EPIDURAL STEROID WITH CATHETER INJECTION PROCEDURE NOTE Pre-operative diagnosis: lumbar radiculitis Post-operative diagnosis: same as above COMMENTS: patient is status post prior lumbar spine surgeries, continues to have axial back pain and bilateral leg pain radiating to posterior knees. she underwent lumbar LMBB which provided significant pain relief but according to patient, lumbar RFA provided only ~3-4 weeks of pain relief for her back pain. She is here for a trial of caudal STEPHANIE for sympatomatic management of her lower leg pain. NARENDRA BOYER has been referred to the Pain Management Center for lumbar epidural steroid injection. Patient was greeted by the nurse who verified patients name and . Patient was then taken to the fluoroscopy suite. Patient was interviewed and the medical record reviewed. There were no medical, pharmacologic, radiographic, or other structural contraindications to attempting fluoroscopically guided lumbar epidural steroid injection. Risks and expected side effects as well as potential benefits of the procedure were reviewed and voiced concerns addressed. The patient consent form was signed and witnessed. Standard time-out procedure was performed. Patient was placed in the prone position on the fluoroscopy table and automated blood pressure cuff and pulse oximeter applied. The skin entry point for entering/approaching the epidural space by a radio-opaque pointer and marked. Following thorough chlorhexadine preparation of the skin x2 and draping and 1% lidocaine infiltration of the skin entry point and subcutaneous tissues, a 17 gauge Touhy needle was placed under fluoroscopic guidance and with loss of resistance technique into the epidural space. Needle tip placement and depth were aided and confirmed by fluoroscopy. There was no paresthesia or return of blood or CSF through the needle. An Arrow cath was thread to the L5-S1 and 1 cc's of Omnipaque 240 was injected with clear epidural spread confirmed with fluoroscopy. 80mg depomedrol was injected, followed by 2.5cc of preservative free 1% lidfocaine. There was not any unusual discomfort expressed. Vital signs were stable throughout the procedure and were as recorded in nursing records. Follow up plans and appointments were discussed.Post procedure instruction was given as documented in nursing records and having met discharge criteria and was discharged from the Pain Management Center. COMMENTS: patient reported reproduction of pressure like sensation down left lower extremity with injection of the medication during procedure. post- procedure, patient is able to ambulate better but does report mild feeling of pins/needles down bilateral legs. she was observed to ambulate without assistance to her ride by our RN Penny. I personally performed the entire procedure. Ebony Brown MD Pain Management
== END 2020-07-07 09:07 ==
PROVIDERS: PCP Family Medicine; Visit Provider Internal Medicine
DX: M54.16 Radiculopathy, lumbar region (principal)
CPT/HCPCS: 62323; 72100; J1040; Q9967

== ENCOUNTER → 2020-07-17 09:06 | Outpatient (BNVA) | payer MEDICARE, MEDICAID, SELFPAY | PROVIDERS: PCP Family Medicine; Referring Provider Family Medicine; Visit Provider Internal Medicine Cardiovascular Disease | DX: I50.30 Unspecified diastolic (congestive) heart failure (principal); I21.4 Non-ST elevation (NSTEMI) myocardial infarction; I25.10 Atherosclerotic heart disease of native coronary artery without angina pectoris; I48.0 Paroxysmal atrial fibrillation; E11.22 Type 2 diabetes mellitus with diabetic chronic kidney disease; N18.4 Chronic kidney disease, stage 4 (severe); I13.0 Hypertensive heart and chronic kidney disease with heart failure and stage 1 through stage 4 chronic kidney disease, or unspecified chronic kidney disease | CPT/HCPCS: 99214 ==

== ENCOUNTER 2020-07-22 08:36 | Outpatient (REF) | payer MEDICARE, MEDICAID, SELFPAY ==
[2020-07-22 14:17] LABS: Absolute Basophil Count 0.09 10^3/uL (0.0-0.2); Absolute Eosinophil Count 0.86 10^3/uL (0.0-0.7); Absolute Lymphocyte Count 2.24 10^3/uL (1.2-3.4); Absolute Monocyte Count 1.21 10^3/uL (0.1-0.8); Basophils % 0.7; HCT 37.2 % (36.0-46.0); HGB 10.4 g/dL (11.2-15.7); Immature Grans % 0.8; Lymphocytes % 18.2; MCH 21.9 pg (27.0-33.0); MCV 78.3 fL (80-95); MPV 10.5 fL (8.0-11.0); Monocytes % 9.8; Neutrophils % 63.5; Nucleated RBC 0 %; Platelet Count 394 10^3/uL (130-400); RBC 4.75 10^6/uL (3.93-5.22); RDW 19.1 % (11.7-14.6); RDW-SD 53.7 fL; WBC 12.31 10^3/uL (4.4-10.8)
[2020-07-22 14:22] LABS: Absolute Neutrophil Count 7.82 10^3/uL (1.2-6.7)
[2020-07-22 14:31] LABS: ALT 23 U/L (14-59); AST 17 U/L (15-37); Albumin 3.6 g/dL (3.4-5.0); Alkaline Phosphatase 81 U/L (46-116); Anion Gap 5.6 mmol/L (3-11); Bilirubin, Total 0.3 mg/dL (0.2-1.0); CO2 37.4 mmol/L (21.0-32.0); CREATININE 3.15 mg/dL (0.55-1.02); Calcium 9.3 mg/dL (8.5-10.1); Chloride 96 mmol/L (98-107); Estimated GFR 14.71 (mL/min/1.73m2); Glucose 136 mg/dL (74-106); NT-proBNP 419 pg/mL (<300); Potassium 4.5 mmol/L (3.5-5.1); Sodium 139 mmol/L (136-145); Total Protein 7.3 g/dL (6.4-8.2)
[2020-07-22 15:00] LABS: BUN 117 mg/dL (7-18)
== END 2020-07-22 08:56 ==
LOC: NCHCN 08:36
PROVIDERS: PCP Family Medicine; Visit Provider Family Medicine
DX: I50.33 Acute on chronic diastolic (congestive) heart failure (principal)
CPT/HCPCS: 80053; 83880; 85025

== ENCOUNTER 2020-08-10 15:39 | Outpatient (CLI) | payer MEDICARE, MEDICAID, SELFPAY ==
--- NOTE | 2020-08-10 13:30 | DI.RAD_ITS ---
EXAM: XR HIP LT AP LAT ONLY CLINICAL HISTORY: left hip pain after fall TECHNIQUE: COMPARISON: CR XR hip RT complete AP pelvis from 12/06/2018 FINDINGS: Two views were obtained. There is a total hip joint replacement in position. The components appear well seated. No other significant bony abnormality seen. No evidence of acute fracture. IMPRESSION: RADIATION DOSE DELIVERED: Total DLP Total DLP
== END 2020-08-10 15:59 ==
PROVIDERS: PCP Family Medicine; Referring Provider Family Medicine; Visit Provider Student in an Organized Health Care Education/Training Program
DX: M25.552 Pain in left hip (principal); Z96.642 Presence of left artificial hip joint; M70.62 Trochanteric bursitis, left hip
CPT/HCPCS: 20610; 99203; 99214; 73502; J1040

== ENCOUNTER 2020-08-19 12:00 | Outpatient (REF) | payer MEDICARE, MEDICAID, SELFPAY ==
[2020-08-19 13:31] LABS: Abs Immature Grans 0.17 10^3/uL (0.0-0.06); Absolute Basophil Count 0.12 10^3/uL (0.0-0.2); Absolute Eosinophil Count 0.58 10^3/uL (0.0-0.7); Absolute Neutrophil Count 8.83 10^3/uL (1.2-6.7); Basophils % 0.9; Eosinophils % 4.3; HCT 37.9 % (36.0-46.0); HGB 10.9 g/dL (11.2-15.7); Immature Grans % 1.3; Lymphocytes % 18.8; MCH 22.6 pg (27.0-33.0); MCHC 28.8 % (32.0-36.0); MCV 78.5 fL (80-95); MPV 10.2 fL (8.0-11.0); Monocytes % 8.7; Nucleated RBC 0 %; Platelet Count 415 10^3/uL (130-400); RBC 4.83 10^6/uL (3.93-5.22); RDW 18.6 % (11.7-14.6); RDW-SD 52.1 fL; WBC 13.38 10^3/uL (4.4-10.8)
[2020-08-19 13:33] LABS: Absolute Lymphocyte Count 2.52 10^3/uL (1.2-3.4); Absolute Monocyte Count 1.16 10^3/uL (0.1-0.8)
[2020-08-19 13:42] LABS: ALT 25 U/L (14-59); AST 15 U/L (15-37); Albumin 3.5 g/dL (3.4-5.0); Alkaline Phosphatase 79 U/L (46-116); Anion Gap 4.9 mmol/L (3-11); Bilirubin, Total 0.4 mg/dL (0.2-1.0); CO2 36.1 mmol/L (21.0-32.0); CREATININE 2.68 mg/dL (0.55-1.02); Calcium 8.9 mg/dL (8.5-10.1); Chloride 98 mmol/L (98-107); Estimated GFR 17.73 (mL/min/1.73m2); Glucose 79 mg/dL (74-106); NT-proBNP 504 pg/mL (<300); Potassium 3.9 mmol/L (3.5-5.1); Sodium 139 mmol/L (136-145)
[2020-08-19 13:49] LABS: BUN 80 mg/dL (7-18)
== END 2020-08-19 12:20 ==
LOC: LBN 12:00
PROVIDERS: PCP Family Medicine; Visit Provider Family Medicine
DX: I50.33 Acute on chronic diastolic (congestive) heart failure (principal)
CPT/HCPCS: 80053; 83880; 85025

== ENCOUNTER 2020-08-25 11:26 | Outpatient (CLI) | payer MEDICARE, MEDICAID, SELFPAY ==
[2020-08-25 11:45] VITALS: BP 118/60; PULSE 71; RESP 17; TEMP 36.3; O2SAT 95
--- NOTE | 2020-08-25 12:40 | DI.RAD_ITS ---
EXAM: XR PAIN CLINIC LUMBAR SP 2V CLINICAL HISTORY: Dx: Lumbar Radiculopathy TECHNIQUE: 2D and realtime digital imaging was performed. CONTRAST MATERIAL: Refer to procedure report. COMPARISON: No exams were available for comparison FINDINGS: Fluoroscopy was provided for Dr. Perez during the performance of a lumbosacral epidural steroid injec tion. Please refer to the procedure report for complete details. Fluoro time: 29.5 seconds IMPRESSION:
--- NOTE | 2020-08-25 12:47 | PDOC.PAIN ---
Pain Clinic Procedure Note Procedure Note Procedure Note: CANDAL EPIDURAL STEROID WITH CATHETER INJECTION PROCEDURE NOTE COMMENTS: She did well with the first caudal STEPHANIE with Dr. Brown on 07/07/20. She does have renal disease and thus we avoided the contrast with this procedure. She was previously seen in the clinic by Ms. Evans. DX: Lumbosacral radiculopathy NARENDRA BOYER has been referred to the Pain Management Center for lumbar epidural steroid injection. Patient was greeted by the nurse who verified patients name and . Patient was then taken to the fluoroscopy suite. Patient was interviewed and the medical record reviewed. There were no medical, pharmacologic, radiographic, or other structural contraindications to attempting fluoroscopically guided lumbar epidural steroid injection. Risks and expected side effects as well as potential benefits of the procedure were reviewed and voiced concerns addressed. The patient consent form was signed and witnessed. Standard time-out procedure was performed. Patient was placed in the prone position on the fluoroscopy table and automated blood pressure cuff and pulse oximeter applied. The skin entry point for entering/approaching the epidural space at L5-S1 and marked. Following thorough chlorhexadine preparation of the skin and draping and 1% lidocaine infiltration of the skin entry point and subcutaneous tissues, a 17 gauge Touhy needle was placed under fluoroscopic guidance and with loss of resistance technique into the epidural space. Needle tip placement and depth were aided and confirmed by fluoroscopy. There was no paresthesia or return of blood or CSF through the needle. An Arrow cath was thread to L5 confirmed with fluoroscopy. 40mg depomedrol was injected and this was flushed with 1cc of 1% Lidocaine. There was not any unusual discomfort expressed. The needle was removed without difficulty. Vital signs were stable throughout the procedure and were as recorded in nursing records. Follow up plans and appointments were discussed.Post procedure instruction was given as documented in nursing records and having met discharge criteria and was discharged from the Pain Management Center. COMMENTS: This procedure can be completed up to 3 times per 12 months if it is found to be helpful. Kiran Perez DO, MPH Pain Management
[2020-08-25 12:52] VITALS: BP 122/62; PULSE 74; RESP 20; O2SAT 97
[2020-08-25] MEDS: methylPREDNISolone ACETATE 40 MG/ML VIAL IJ (13:01)
== END 2020-08-25 11:46 ==
PROVIDERS: PCP Family Medicine; Visit Provider Preventive Medicine Occupational Medicine
DX: M54.17 Radiculopathy, lumbosacral region (principal)
CPT/HCPCS: 62323; 72100; J1030

== ENCOUNTER 2020-09-02 18:24 | Outpatient (REF) | payer MEDICARE, MEDICAID, SELFPAY ==
[2020-09-02 17:32] LABS: Abs Immature Grans 0.07 10^3/uL (0.0-0.06); Absolute Basophil Count 0.12 10^3/uL (0.0-0.2); Absolute Eosinophil Count 0.69 10^3/uL (0.0-0.7); Absolute Monocyte Count 0.87 10^3/uL (0.1-0.8); Basophils % 0.9; Eosinophils % 5.3; HCT 39.2 % (36.0-46.0); HGB 11.2 g/dL (11.2-15.7); Immature Grans % 0.5; Lymphocytes % 14.4; MCH 22.6 pg (27.0-33.0); MCHC 28.6 % (32.0-36.0); MPV 10.3 fL (8.0-11.0); Monocytes % 6.7; Neutrophils % 72.2; Nucleated RBC 0 %; Platelet Count 368 10^3/uL (130-400); RBC 4.96 10^6/uL (3.93-5.22); RDW 18.6 % (11.7-14.6); RDW-SD 52.3 fL; WBC 13.02 10^3/uL (4.4-10.8)
[2020-09-02 17:33] LABS: Absolute Lymphocyte Count 1.87 10^3/uL (1.2-3.4)
[2020-09-02 17:44] LABS: Hemoglobin A1C 7.1 % (<5.7)
[2020-09-02 17:48] LABS: ALT 27 U/L (14-59); AST 15 U/L (15-37); Albumin 3.6 g/dL (3.4-5.0); Alkaline Phosphatase 91 U/L (46-116); BUN 72 mg/dL (7-18); Bilirubin, Total 0.5 mg/dL (0.2-1.0); CREATININE 3.11 mg/dL (0.55-1.02); Calcium 8.9 mg/dL (8.5-10.1); Chloride 99 mmol/L (98-107); Estimated GFR 14.93 (mL/min/1.73m2); Glucose 192 mg/dL (74-106); NT-proBNP 433 pg/mL (<300); Potassium 4.6 mmol/L (3.5-5.1); Sodium 140 mmol/L (136-145); Total Protein 7.2 g/dL (6.4-8.2)
== END 2020-09-02 18:44 ==
LOC: LBN 18:24
PROVIDERS: PCP Family Medicine; Visit Provider Family Medicine
DX: E11.9 Type 2 diabetes mellitus without complications (principal); N18.4 Chronic kidney disease, stage 4 (severe); I50.33 Acute on chronic diastolic (congestive) heart failure; I48.91 Unspecified atrial fibrillation
CPT/HCPCS: 80053; 83036; 83880; 85025

== ENCOUNTER → 2020-09-21 11:05 | Outpatient (BNVA) | payer MEDICARE, MEDICAID, SELFPAY | PROVIDERS: PCP Family Medicine; Referring Provider Family Medicine; Visit Provider Student in an Organized Health Care Education/Training Program | DX: M25.552 Pain in left hip (principal); M70.62 Trochanteric bursitis, left hip ==

== ENCOUNTER 2020-10-07 18:59 | Outpatient (REF) | payer MEDICARE, MEDICAID, SELFPAY ==
[2020-10-07 16:12] LABS: Abs Immature Grans 0.05 10^3/uL (0.0-0.06); Absolute Eosinophil Count 1.45 10^3/uL (0.0-0.7); Absolute Monocyte Count 0.72 10^3/uL (0.1-0.8); Absolute Neutrophil Count 6.37 10^3/uL (1.2-6.7); Eosinophils % 14.1; HCT 40.2 % (36.0-46.0); HGB 11.2 g/dL (11.2-15.7); Immature Grans % 0.5; Lymphocytes % 15.5; MCH 22.9 pg (27.0-33.0); MCHC 27.9 % (32.0-36.0); MPV 10.5 fL (8.0-11.0); Neutrophils % 61.9; Nucleated RBC 0 %; Platelet Count 324 10^3/uL (130-400); RDW-SD 53.4 fL; WBC 10.29 10^3/uL (4.4-10.8)
[2020-10-07 17:28] LABS: ALT 23 U/L (14-59); AST 19 U/L (15-37); Albumin 3.6 g/dL (3.4-5.0); Alkaline Phosphatase 79 U/L (46-116); Anion Gap 5.5 mmol/L (3-11); BUN 59 mg/dL (7-18); Bilirubin, Total 0.6 mg/dL (0.2-1.0); CO2 36.5 mmol/L (21.0-32.0); CREATININE 2.81 mg/dL (0.55-1.02); Calcium 9.1 mg/dL (8.5-10.1); Chloride 97 mmol/L (98-107); Estimated GFR 16.79 (mL/min/1.73m2); Glucose 183 mg/dL (74-106); NT-proBNP 390 pg/mL (<300); Potassium 4.9 mmol/L (3.5-5.1); Sodium 139 mmol/L (136-145); Total Protein 7.1 g/dL (6.4-8.2)
== END 2020-10-07 19:19 ==
LOC: LBN 18:59
PROVIDERS: PCP Family Medicine; Visit Provider Family Medicine
DX: I50.33 Acute on chronic diastolic (congestive) heart failure (principal)
CPT/HCPCS: 80053; 83880; 85025

== ENCOUNTER → 2020-10-26 10:04 | Outpatient (BNVA) | payer MEDICARE, MEDICAID, SELFPAY | PROVIDERS: PCP Family Medicine; Visit Provider Internal Medicine Cardiovascular Disease | DX: E11.22 Type 2 diabetes mellitus with diabetic chronic kidney disease (principal); I25.2 Old myocardial infarction; N18.4 Chronic kidney disease, stage 4 (severe); I27.20 Pulmonary hypertension, unspecified; I50.812 Chronic right heart failure | CPT/HCPCS: 99214 ==

== ENCOUNTER 2020-12-02 11:03 | Outpatient (REF) | payer MEDICARE, MEDICAID, SELFPAY ==
[2020-12-02 13:55] LABS: ALT 25 U/L (14-59); AST 15 U/L (15-37); Albumin 3.4 g/dL (3.4-5.0); Alkaline Phosphatase 68 U/L (46-116); Anion Gap 8.1 mmol/L (3-11); BUN 58 mg/dL (7-18); Bilirubin, Total 0.5 mg/dL (0.2-1.0); CO2 35.9 mmol/L (21.0-32.0); CREATININE 2.7 mg/dL (0.55-1.02); Calcium 8.3 mg/dL (8.5-10.1); Chloride 100 mmol/L (98-107); Estimated GFR 17.52 (mL/min/1.73m2); Glucose 144 mg/dL (74-106); Potassium 3.6 mmol/L (3.5-5.1); Sodium 144 mmol/L (136-145); Total Protein 6.7 g/dL (6.4-8.2)
[2020-12-02 14:01] LABS: Hemoglobin A1C 7.5 % (<5.7)
== END 2020-12-02 11:04 | disposition home or self-care (01) ==
LOC: LBN 11:03
PROVIDERS: PCP Family Medicine; Visit Provider Family Medicine
DX: E11.9 Type 2 diabetes mellitus without complications (principal); I50.812 Chronic right heart failure
CPT/HCPCS: 80053; 83036

== ENCOUNTER → 2020-12-03 12:45 | Outpatient (BNVA) | payer MEDICARE, MEDICAID, SELFPAY | PROVIDERS: PCP Family Medicine; Referring Provider Family Medicine; Visit Provider Internal Medicine Cardiovascular Disease | DX: I50.32 Chronic diastolic (congestive) heart failure (principal); I25.810 Atherosclerosis of coronary artery bypass graft(s) without angina pectoris; Z79.82 Long term (current) use of aspirin; I48.0 Paroxysmal atrial fibrillation; N18.30 Chronic kidney disease, stage 3 unspecified | CPT/HCPCS: 99214 ==

== ENCOUNTER 2021-01-20 08:59 | Outpatient (REF) | payer OTHER, MEDICAID, SELFPAY ==
[2021-01-20 13:30] LABS: ALT 24 U/L (14-59); AST 13 U/L (15-37); Albumin 3.4 g/dL (3.4-5.0); Alkaline Phosphatase 73 U/L (46-116); Anion Gap 8.9 mmol/L (3-11); BUN 52 mg/dL (7-18); Bilirubin, Total 0.6 mg/dL (0.2-1.0); CO2 33.1 mmol/L (21.0-32.0); CREATININE 2.4 mg/dL (0.55-1.02); Calcium 8.8 mg/dL (8.5-10.1); Chloride 102 mmol/L (98-107); Estimated GFR 20.08 (mL/min/1.73m2); Glucose 83 mg/dL (74-106); Magnesium 1.5 mg/dL (1.8-2.4); Potassium 3.7 mmol/L (3.5-5.1); Sodium 144 mmol/L (136-145); Total Protein 6.7 g/dL (6.4-8.2)
[2021-01-20 14:06] LABS: Hemoglobin A1C 7.2 % (<5.7)
== END 2021-01-20 09:00 | disposition home or self-care (01) ==
LOC: LBN 08:59
PROVIDERS: PCP Family Medicine; Visit Provider Family Medicine
DX: E11.22 Type 2 diabetes mellitus with diabetic chronic kidney disease (principal); I50.33 Acute on chronic diastolic (congestive) heart failure
CPT/HCPCS: 80053; 83036; 83735

== ENCOUNTER → 2021-02-25 13:44 | Outpatient (BNVA) | payer OTHER, MEDICAID, SELFPAY | PROVIDERS: PCP Family Medicine; Referring Provider Family Medicine; Visit Provider Psychiatry & Neurology Neurology | DX: G40.409 Other generalized epilepsy and epileptic syndromes, not intractable, without status epilepticus (principal); I13.0 Hypertensive heart and chronic kidney disease with heart failure and stage 1 through stage 4 chronic kidney disease, or unspecified chronic kidney disease; E11.22 Type 2 diabetes mellitus with diabetic chronic kidney disease; I50.9 Heart failure, unspecified; J44.9 Chronic obstructive pulmonary disease, unspecified; N18.9 Chronic kidney disease, unspecified | CPT/HCPCS: 99215 ==

== ENCOUNTER 2021-04-14 23:43 | Observation (INO) | payer OTHER, MEDICAID, SELFPAY ==
--- NOTE | 2021-04-14 23:30 | RT.EKG_ITS ---
APPROVED REPORT Exam: Resting ECG Reason for Exam: chest pain Patient Location: E HR:61 bpm ECG Measurements Heart Rate 61 AXIS UT 158 P 40 QRSd 90 QRS 65 QT 445 T 62 QTc 450 Conclusion Sinus rhythm...normal P axis, V-rate 60- 99. No STEMI. I have reviewed and interpreted ECG and agree with software generated interpretation.
--- NOTE | 2021-04-14 23:41 | ED.GENADUL_ITS ---
Discharge Plan Disposition Patient Disposition: [facility] INPATIENT Condition: Stable Discharge Details Clinical Impression: Chest pain, Hx of CABG Admit Date/Time: 04/15/21 03:30 Admit Provider: Elvira Mims Attending Provider: Elvira Mims Primary Care Provider: Laisha Mcmahon ED Provider: Ludivina Oconnor Medical Decision Making 70yo F well known to the emergency department with multiple medical problems including CAD s/p CABG with multiple stents s/p STEMI in December 2018, CHF, hyperlipidemia, HTN, diabetes, CKD stage 4 secondary to diabetes, obesity, paroxysmal atrial fibrillation, COPD, former smoker presents from home for constant chest pain, intermittent shortness of breath with exertion and intermittent dizziness with head movement since yesterday. She states she had no chest pain with her previous SC. Her left anterior chest pain is reproducible and tender to palpation. Her EKG notes a rate of 61, sinus, no STEMI and nondiagnostic. Differential diagnosis includes chest wall strain, pleurisy, ACS, CHF exacerbation, etc. History and presentation does not appear consistent with PE, pneumonia or dissection. Considering patient's age and history, will obtain screening labs and chest x-ray. Will give a dose of oral Valium and IV Tylenol and reassess. Labs and imaging reviewed. White blood cell count 11. Hemoglobin 9.9. Platelet 422. BUN 51, creatinine 2.6 which is near her baseline. Troponin negative. BNP 846. Chest x-ray negative for acute findings. Repeat troponin negative. Repeat EKG unchanged. Patient reassessed and she feels better. Considering her age and comorbidities, will admit for continued monitoring, serial troponins and EKGs. Patient is agreeable with plan. Case discussed with hospitalist accepts patient for admission. Medical Records Medical records reviewed: Yes I reviewed the patient's medical records. Imaging Data Radiologic Study: Radiologist's impression: XR Chest Exam date and time: 04/15/2021 12:28 AM Age: 70 years old Clinical indication: Other: Not specified; Patient HX: Chest pain TECHNIQUE: Imaging protocol: XR of the chest. Views: 2 views. COMPARISON: CR XR CHEST 2V PA LATERAL 05/29/2020 11:26 AM FINDINGS: Lungs: Lungs are hyperaerated. Negative for consolidation or collapse. No significant pulmonary vascular congestion. Pleural spaces: Unremarkable. No pleural effusion. No pneumothorax. Heart/Mediastinum: Mild cardiomegaly. Post CABG changes. Bones/joints: Sternotomy wires. Cervical spine fusion partially visualized. IMPRESSION: No acute cardiopulmonary abnormality. Lab Data Lab results reviewed: Yes I reviewed the patient's lab results. Labs: Laboratory Tests Range/Units 04/14/21 04/14/21 04/15/21 23:21 23:58 02:38 WBC (4.4-10.8) 10^3/uL 11.42 H RBC (3.93-5.22) 10^6/uL 4.24 Hgb (11.2-15.7) g/dL 9.9 L Hct (36.0-46.0) % 35.1 L MCV (80-95) fL 82.8 MCH (27.0-33.0) pg 23.3 L MCHC (32.0-36.0) % 28.2 L RDW (11.7-14.6) % 17.0 H Plt Count (130-400) 10^3/uL 422 H MPV (8.0-11.0) fL 10.5 Immature Gran % 0.5 Neutrophils % 59.2 Lymphocytes % 19.1 Monocytes % 8.1 Eosinophils % 11.9 Basophils % 1.2 Nucleated RBC % % 0 Absolute Neutrophils (1.2-6.7) 10^3/uL 6.76 H Absolute Lymphocytes (1.2-3.4) 10^3/uL 2.18 Absolute Monocytes (0.1-0.8) 10^3/uL 0.93 H Absolute Eosinophils (0.0-0.7) 10^3/uL 1.36 H Absolute Basophils (0.0-0.2) 10^3/uL 0.14 Sodium (136-145) mmol/L 142 Potassium (3.5-5.1) mmol/L 3.5 Chloride (98-107) mmol/L 100 Carbon Dioxide (21.0-32.0) mmol/L 37.1 H Anion Gap (3-11) mmol/L 4.9 BUN (7-18) mg/dL 51 H Creatinine (0.55-1.02) mg/dL 2.6 H Estimated GFR/1.73 m2 (mL/min/1.73m2) 18.30 Glucose (74-106) mg/dL 110 H Calcium (8.5-10.1) mg/dL 9.2 Magnesium (1.8-2.4) mg/dL 1.8 Total Bilirubin (0.2-1.0) mg/dL 0.4 AST (15-37) U/L 15 ALT (14-59) U/L 20 Alkaline Phosphatase (46-116) U/L 85 Troponin I (<0.06) ng/mL < 0.05 < 0.05 NT-Pro-B Natriuret Pep (<300) pg/mL 846 H Total Protein (6.4-8.2) g/dL 7.4 Albumin (3.4-5.0) g/dL 3.3 L ECG Data Attestation: I personally reviewed and interpreted this ECG (s) as follows: Interpretation: 0003 -- Rate of 61, sinus, no acute ST elevation or depression. No significant change from previous EKG. 0313 -- Rate of 61, sinus, no acute ST elevation or depression. No significant change from previous EKG. HPI General Mode of arrival: ambulatory . Date/Time Provider Initiated Documentation: 04/14/21 23:59 . Limitations to Documentation: no limitations . Information obtained by: patient . HPI Narrative: Pt is a 70yo F well known to the emergency department with multiple medical problems including CAD s/p CABG to 3 vessels s/p STEMI in December 2018, CHF, hyperlipidemia, HTN, diabetes, CKD stage 4 secondary to diabetes, obesity, paroxysmal atrial fibrillation, COPD, former smoker presents from home for chest pain since yesterday. Patient states the pain is sharp, has been constant and denies any aggravating or alleviating factors. She denies any known injury. She states the pain radiates around from her left axilla left anterior chest and up to her left jaw. She states the pain is currently/10. She does admit to intermittent shortness of breath that occurs with exertion and dizziness feels like spinning that is worse with head movement since yesterday. She denies any fever or cough. She states she had been feeling fine prior to the symptoms starting yesterday. She states she was started on a new diuretic [address] Mcmahon. She states she has an appointment with Dr. Mas here tomorrow. Related Data Home Medications Medication Instructions Recorded Confirmed lancets 33 gauge #100 each 12/18/18 04/08/21 polyethylene glycol 3350 [Miralax] 1 g PO PRN PRN 01/15/19 04/15/21 acetaminophen [Tylenol Extra 1,000 mg PO Q8H PRN PRN #0 tab 01/22/19 04/15/21 Strength] lancets 25 gauge #100 each 01/29/19 04/08/21 B-complex with vitamin C 1 tab PO DAILY 09/19/19 04/15/21 calcium gtdc-[id number] vitaliy 2 cap PO DAILY 03/11/20 04/08/21 allopurinol 100 mg tablet 100 mg PO DAILY #90 tab-cap 05/05/20 04/15/21 aspirin 81 mg PO DAILY #0 tab 06/01/20 04/15/21 albuterol sulfate 2.5 mg INHALATION Q2H PRN PRN #180 09/10/20 04/15/21 ml atorvastatin 40 mg tablet 40 mg PO DAILY #90 tab-cap 09/10/20 04/15/21 duloxetine 60 mg capsule,delayed 60 mg PO DAILY #90 tab-cap 09/10/20 04/15/21 release magnesium hydroxide 400 mg/5 mL 30 ml PO DAILY PRN #3000 ml 09/10/20 04/15/21 oral suspension ropinirole 2 mg tablet 2 mg PO QPM PRN #90 tab 09/10/20 04/15/21 adondl-zlmpfssc-undrmbu 1 cap PO TID #270 cap 10/01/20 04/15/21 6,000-19,000-30,000 unit capsule,delayed rel magnesium chloride 71.5 mg 71.5 mg PO BID #180 tab 10/19/20 04/15/21 (magnesium chloride) tablet,delayed release estradiol 1 gm VG .COMPLEX gm 12/03/20 04/15/21 meclizine 12.5 mg tablet 12.5 mg PO TID PRN #60 tab 12/07/20 04/15/21 pen needle, diabetic 31 gauge x #450 each 12/10/20 04/08/21 1/4 budesonide-formoterol HFA 160 2 puff INHALATION BID 01/07/21 04/15/21 mcg-4.5 mcg/actuation aerosol inhaler insulin aspart U-100 100 unit/mL 15 unit SC TID #30 ml 01/07/21 04/15/21 (3 mL) subcutaneous pen insulin glargine 100 unit/mL (3 35 unit SC BID #90 ml 01/07/21 04/15/21 mL) subcutaneous pen sitagliptin 25 mg tablet 25 mg PO DAILY #90 tab 01/07/21 04/15/21 umeclidinium 62.5 mcg/actuation 1 inh INHALATION DAILY #30 ea 01/07/21 04/15/21 blister powder for inhalation epinephrine 0.3 mg/0.3 mL 0.3 mg IM ONCE #2 ea 02/04/21 04/15/21 injection, auto-injector isosorbide mononitrate 10 mg tablet 10 mg PO BID #60 tab 02/04/21 04/15/21 metolazone 5 mg tablet 5 mg PO .4 times week PRN #48 tab 02/18/21 04/15/21 metoprolol succinate 100 mg 100 mg PO DAILY #90 tab 02/18/21 04/15/21 tablet,extended release 24 hr omeprazole 40 mg capsule,delayed 40 mg PO BID #180 cap 02/18/21 04/15/21 release potassium chloride 20 mEq 20 meq PO BID #180 tab 02/18/21 04/15/21 tablet,extended release levetiracetam 500 mg tablet 500 mg PO BID #180 tab 02/22/21 04/15/21 gabapentin 100 mg capsule 100 mg PO TID #270 cap 03/01/21 04/15/21 torsemide 100 mg tablet 100 mg PO DAILY #90 tab 03/19/21 04/15/21 blood sugar diagnostic #300 each 04/08/21 04/08/21 ergocalciferol (vitamin D2) 1,250 50,000 unit PO M-W-F #36 tab-cap 04/08/21 04/15/21 mcg (50,000 unit) capsule Previous Rx's Medication Instructions Recorded lancets 33 gauge #100 each 12/18/18 acetaminophen [Tylenol Extra 1,000 mg PO Q8H PRN PRN #0 tab 01/22/19 Strength] lancets 25 gauge #100 each 01/29/19 allopurinol 100 mg tablet 100 mg PO DAILY #90 tab-cap 05/05/20 aspirin 81 mg PO DAILY #0 tab 06/01/20 albuterol sulfate 2.5 mg INHALATION Q2H PRN PRN #180 09/10/20 ml atorvastatin 40 mg tablet 40 mg PO DAILY #90 tab-cap 09/10/20 duloxetine 60 mg capsule,delayed 60 mg PO DAILY #90 tab-cap 09/10/20 release magnesium hydroxide 400 mg/5 mL 30 ml PO DAILY PRN #3000 ml 09/10/20 oral suspension ropinirole 2 mg tablet 2 mg PO QPM PRN #90 tab 09/10/20 zjaepx-aafwzcgv-nxczqbl 1 cap PO TID #270 cap 10/01/20 6,000-19,000-30,000 unit capsule,delayed rel magnesium chloride 71.5 mg 71.5 mg PO BID #180 tab 10/19/20 (magnesium chloride) tablet,delayed release meclizine 12.5 mg tablet 12.5 mg PO TID PRN #60 tab 12/07/20 pen needle, diabetic 31 gauge x #450 each 12/10/20 1/4 insulin aspart U-100 100 unit/mL 15 unit SC TID #30 ml 01/07/21 (3 mL) subcutaneous pen insulin glargine 100 unit/mL (3 35 unit SC BID #90 ml 01/07/21 mL) subcutaneous pen sitagliptin 25 mg tablet 25 mg PO DAILY #90 tab 01/07/21 umeclidinium 62.5 mcg/actuation 1 inh INHALATION DAILY #30 ea 01/07/21 blister powder for inhalation epinephrine 0.3 mg/0.3 mL 0.3 mg IM ONCE #2 ea 02/04/21 injection, auto-injector isosorbide mononitrate 10 mg tablet 10 mg PO BID #60 tab 02/04/21 metolazone 5 mg tablet 5 mg PO .4 times week PRN #48 tab 02/18/21 metoprolol succinate 100 mg 100 mg PO DAILY #90 tab 02/18/21 tablet,extended release 24 hr omeprazole 40 mg capsule,delayed 40 mg PO BID #180 cap 02/18/21 release potassium chloride 20 mEq 20 meq PO BID #180 tab 02/18/21 tablet,extended release levetiracetam 500 mg tablet 500 mg PO BID #180 tab 02/22/21 gabapentin 100 mg capsule 100 mg PO TID #270 cap 03/01/21 torsemide 100 mg tablet 100 mg PO DAILY #90 tab 03/19/21 blood sugar diagnostic #300 each 04/08/21 ergocalciferol (vitamin D2) 1,250 50,000 unit PO M-W-F #36 tab-cap 04/08/21 mcg (50,000 unit) capsule Allergies Allergy/AdvReac Type Severity Reaction Status Date / Time oxycodone Allergy Severe Psychosis Verified 04/08/21 13:51 venom-honey bee Allergy Severe ANAPHYLAXIS Verified 04/08/21 13:51 adhesive Allergy BLISTERS Verified 04/08/21 13:51 General STEPHANIE: 2 Review of Systems All systems reviewed & are unremarkable except as noted in HPI and below Constitutional Constitutional: Reports as per HPI, Denies chills, Reports fatigue and Denies fever(s) Eyes Eyes: Denies blurry vision ENT Ears, Nose, Mouth, and Throat: Reports dizziness, Denies sore throat and Denies throat swelling Cardiovascular Cardiovascular: Reports chest pain and Denies dyspnea Respiratory Respiratory: Denies cough and Denies dyspnea Gastrointestinal Gastrointestinal: Denies abdominal pain, Denies diarrhea and Denies vomiting Genitourinary Genitourinary: Denies hematuria and Denies dysuria Musculoskeletal Musculoskeletal: Denies back pain and Denies numbness Integumentary/Breasts Skin/Breast: Denies lesions and Denies rash Neurologic Neurologic: Reports dizziness, Denies localized weakness and Denies numbness Endocrine Endocrine: Reports fatigue Allergic/Immunologic Allergic/Immunologic: Denies throat swelling [facility] Medical History (Updated 04/15/21 @ 07:23 by Elvira Mims MD) Abnormal mammography 08/10/06 Acute kidney injury superimposed on chronic kidney disease Altered mental status Anemia Ankle pain (03/13/14) Atrial fibrillation paroxysmal, onset 2015, anticoagulated w/ Xarelto; anticoagulation discont inued after left atrial appendage excision 01/03/2019 Atrial fibrillation Atrial flutter Carpal tunnel syndrome Carpal tunnel syndrome (08/10/06) BILATERAL R S/P SURGERY Cervical disc disorder with myelopathy (08/21/08) S/P surgery x 2 Cervical spondylosis with myelopathy Chest pain Neg Stress test Chronic obstructive lung disease CKD (chronic kidney disease) stage 3, GFR 30-59 ml/min Cr about 2.5 Constipation Dehydration Diabetes mellitus Diabetes mellitus 09/20/10 Positive Microalbumin Diastolic CHF Dysuria Essential hypertension Folate deficiency (02/15/16) Gout Gout (07/06/11) Gram-positive bacteremia HAP (hospital-acquired pneumonia) (01/15/19) HCAP (healthcare-associated pneumonia) Hepatomegaly 06/10/04 Hip joint inflamed (09/03/15) Hip pain, left Hip pain, right Hyperglycemia Hyperlipidemia (08/10/00) Hypertension Hypomagnesemia Hypoxia Low back pain (04/10/03) DISC HERNIATION L4. MULTILEVEL DJD/SPINAL STENOSIS BY MRI; S/P surgery Lump in neck Menopausal syndrome 07/11/03 Muscle fatigue 03/04/13 PAF (paroxysmal atrial fibrillation) Posterior tibial tendon dysfunction 02/03/16 Postmenopausal bleeding neg. endometrial biopsy Postoperative wound dehiscence (12/23/15) Prerenal azotemia Primary osteoarthritis of left hip (09/17/15) Pulmonary hypertension Renal impairment (07/11/03) ADRENAL MASS. F/U W/ KINLAW positive microalbumin Restless leg syndrome Rotator cuff syndrome (08/01/09) Shingles Smoker (06/30/16) 01/17/17 1-2 cig/wk Spinal stenosis of lumbar region (02/15/16) Spinal stenosis of lumbar region at multiple levels Tarsal tunnel syndrome 06/11/13 Tarsal tunnel syndrome (06/11/13) Trochanteric bursitis 03/18/13 Upper respiratory tract infection (08/03/15) UTI (urinary tract infection) UTI (urinary tract infection) Vitamin D deficiency Vitamin D deficiency Weakness Surgical History (Updated 04/15/21 @ 06:51 by Ludivina Oconnor DO) Arthrodesis right 2nd toe Cataract (01/07/14) FOLLOWED BY [employer] cervical repair (~10/2008) C6-C7 DISK; RECURRENT SURGERY Cholecystectomy (07/31/13) Endometrial Biopsy NEG H/O arthrodesis right second toe H/O Spinal surgery multiple spine surgeries; low back x 2; She had multilevel DJD and spinal stenosis; disc herniation. 2008-cervical repair; C6-C7 disc; recurrent surgery. History of bilateral tubal ligation 09/11/80 History of gynecologic surgery endometrial biopsy-neg History of hip surgery 11/10/15 left hip arthroplasty 12/04/15-placement of wound VAC to left hip History of orthopedic surgery 09/11/97 tarsal tunnel release Left eye surgery 12/31/17 Ligation of fallopian tube (~1980) Open Carpal Tunnel release Right wrist surgery 10/26/17 Rotator Cuff Repair (~1980) S/P CABG (coronary artery bypass graft) (01/03/19) 4 vessel CABG and LA appendage excision, Dr. Nav Wang, [facility], [place] S/P carpal tunnel release S/P cholecystectomy 09/11/12 S/P rotator cuff repair 09/11/80 SPINE SURGERY Multiple spine surgeries, low back x 2. She had multilevel DJD and spinal stenosis, disc herniation Status post incision and drainage 12/04/15 left hip surgical wound dehiscence and infection tarsal tunnel release (~1997) Total replacement of hip [facility]; LEFT HIP Family History Mother Diabetes Essential hypertension Personal history of malignant neoplasm KIDNEY/LIVER/BRAIN Heart disease Hyperlipidemia Stroke Asthma Father Diabetes Essential hypertension Personal history of malignant neoplasm BONE Heart disease Asthma Sister Diabetes Essential hypertension Depression Heart disease Asthma Grandfather No problems noted. Grandfather No problems noted. Grandmother Personal history of malignant neoplasm UTERINE Grandmother Diabetes Aunt Personal history of malignant neoplasm BREAST Brother Hyperlipidemia Stroke Sister Asthma Son Asthma Daughter Depression Asthma Daughter Asthma Daughter Depression Neoplasm Asthma Brother No problems noted. 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 Pets and animals: Yes Pets and animals: cat(s), dog(s) and horse(s) What is your relationship status?: Panel score (0-1 are the most socially isolated patients): 0 What type of physical activity do you participate in: none, walking and yayo tional Details: would like to start now that it's warm Duration: 15-30 minutes/day Saniya/Tenriism: Confucianist Special saniya needs: No Seatbelt use: always Do you feel safe at home: Yes Do you feel safe in your relationship?: Yes Exam Const General: cooperative and no acute distress HENMT Head: normal to inspection Face and sinus: normal facial exam Eyes General: appearance normal, both eyes and all related structures EOM: EOM intact bilaterally Neck Neck: normal visual inspection and No submandibular swelling Lymphatic: no lymphadenopathy noted Chest Chest: normal inspection of the chest Chest/axillae images: 1. Tenderness to palpation left anterior chest. No rash, ecchymoses, erythema. Resp Effort & Inspection: normal respiratory effort and able to speak in complete sentences Auscultation: clear to auscultation bilaterally Cardio Rate: regular rate Rhythm: regular rhythm GI Inspection: normal to inspection Palpation: soft, not firm, not rigid and nontender Auscultation: normal bowel sounds Skin General skin exam: no rashes or lesions noted Neuro General: patient alert, patient awake and patient oriented x3 Cognition: normal cognition Speech: speech normal Motor: muscle tone normal throughout Sensory Exam: no sensory deficits noted Extrem General: normal to inspection, full ROM, capillary refill normal, no calf tenderness bilaterally and no edema Psych Appearance: grossly normal Mental Status: mental status grossly normal Speech and Movement: speech and movement normal Affect: normal affect
[2021-04-14 23:46] VITALS: BP 114/52; PULSE 64; RESP 12; TEMP 36.5; O2SAT 98
[2021-04-14 23:51] VITALS: PULSE 63; RESP 11; O2SAT 97
[2021-04-14 23:53] VITALS: BP 114/52; PULSE 62; PULSE 63; RESP 20; O2SAT 100
[2021-04-14 23:54] VITALS: RESP 19
[2021-04-15] VITALS (36 sets, daily range): BP systolic 94–115; BP diastolic 40–68; PULSE 56–64; RESP 11–25; TEMP 36.5–37.3; O2SAT 95–100
--- NOTE | 2021-04-15 | DI.US_ITS ---
Exam(s) US EXTREMITY VENOUS BI EXAM: US EXTREMITY VENOUS BI CLINICAL HISTORY: transient asymmetric edema TECHNIQUE: Grayscale, color, and doppler imaging of the deep venous system of both lower extremities was performed. COMPARISON: US US LOWER EXTREMITY VENOUS RT from 12/20/2019 FINDINGS: There is no evidence of intraluminal thrombus and there is normal compression and augmentation demons trated within the common femoral veins, femoral veins, and popliteal veins of both lower extremities. In the calves the interrogated veins also exhibit normal compression/ augmentation properties. The greater saphenous veins also appear patent as do the saphenofemoral junctions bilaterally.. IMPRESSION: 1. No ultrasound evidence of DVT in either lower extremity. DATA REPOSITORY:
--- NOTE | 2021-04-15 | DI.CT_ITS ---
Exam(s) CT HEAD CERVICAL SPINE WO EXAM: CT HEAD CERVICAL SPINE WO CLINICAL HISTORY: fall, headache. TECHNIQUE: Imaging Protocol: Axial computed tomography images with coronal and sagittal reformatted images were created and reviewed COMPARISON: CT CT HEAD WO from 01/05/2020 FINDINGS: BRAIN: There are no skull fractures nor fluid in the visualized paranasal sinuses. There is no evidence of intracranial hemorrhage, mass effect, or shift of midline structures. There are no extra-axial fluid collections. The ventricles are not enlarged or shifted and there is no blo od within the ventricular system nor within the basal cisterns. CERVICAL SPINE: There is evidence of previous surgery. There is an anterior fusion plate from see 4 down to T1. Als o posterior of the also bilateral posterior fusion rods supported by bilateral intrapedicular screws at C4 and C6 levels. There is advanced disc space narrowing at C3-4 level which is 1 level above the fusion as well as 1 l evel below the fusion at T1-T2. There is normal disc height at C2-3 although there is mild anterolisthesis of C2 upon C3 noted, not a ssociated with a fracture but appearing to be related to degenerative facet arthropathy. There is no facet malalignment at this level nor elsewhere in the spine. There is no evidence of acute fracture . Odontoid and C1 arch are intact IMPRESSION: No acute intracranial findings on this noninfused CT scan of the brain. No evidence of cervical spine fracture, malalignment, nor acute compromise of the cervical spinal can al. Evidence of multilevel anterior and posterior fusion surgery in the cervical spine. No obvious hardw are loosening. No fractures evident. RADIATION DOSE DELIVERED: 1,422.36mGy.cm Total DLP DATA REPOSITORY: All CT scans at this facility are submitted to the National Radiology Data Registry (NRDR) Dose Index Registry (DIR) with the [employer] (ACR). RADIATION OPTIMIZATION: All CT scans at this facility use at least one of these dose optimization te chniques: automated exposure control; mA and/or kV adjustment per patient size (includes targeted exa ms where dose is matched to clinical indication); or iterative reconstruction.
[2021-04-15 00:02] LABS: Abs Immature Grans 0.06 10^3/uL (0.0-0.06); Absolute Basophil Count 0.14 10^3/uL (0.0-0.2); Absolute Eosinophil Count 1.36 10^3/uL (0.0-0.7); Absolute Lymphocyte Count 2.18 10^3/uL (1.2-3.4); Absolute Neutrophil Count 6.76 10^3/uL (1.2-6.7); Basophils % 1.2; Eosinophils % 11.9; HCT 35.1 % (36.0-46.0); HGB 9.9 g/dL (11.2-15.7); Immature Grans % 0.5; Lymphocytes % 19.1; MCH 23.3 pg (27.0-33.0); MCHC 28.2 % (32.0-36.0); MCV 82.8 fL (80-95); MPV 10.5 fL (8.0-11.0); Monocytes % 8.1; Neutrophils % 59.2; Nucleated RBC 0 %; Platelet Count 422 10^3/uL (130-400); RBC 4.24 10^6/uL (3.93-5.22); RDW-SD 51.3 fL; WBC 11.42 10^3/uL (4.4-10.8)
[2021-04-15 00:04] LABS: Absolute Monocyte Count 0.93 10^3/uL (0.1-0.8)
[2021-04-15] MEDS: ACETAMINOPHEN 1,000 MG/100 ML BTL 400 MG IVPB (00:25)
[2021-04-15 00:26] LABS: ALT 20 U/L (14-59); AST 15 U/L (15-37); Albumin 3.3 g/dL (3.4-5.0); Alkaline Phosphatase 85 U/L (46-116); Anion Gap 4.9 mmol/L (3-11); BUN 51 mg/dL (7-18); Bilirubin, Total 0.4 mg/dL (0.2-1.0); CO2 37.1 mmol/L (21.0-32.0); CREATININE 2.6 mg/dL (0.55-1.02); Calcium 9.2 mg/dL (8.5-10.1); Chloride 100 mmol/L (98-107); Glucose 110 mg/dL (74-106); Magnesium 1.8 mg/dL (1.8-2.4); NT-proBNP 846 pg/mL (<300); Potassium 3.5 mmol/L (3.5-5.1); Sodium 142 mmol/L (136-145); Total Protein 7.4 g/dL (6.4-8.2)
[2021-04-15 00:27] LABS: Troponin I < 0.05 ng/mL (<0.06)
--- NOTE | 2021-04-15 01:44 | DI.RAD_ITS ---
Exam(s) XR CHEST 2V PA LATERAL EXAM: XR CHEST 2V PA LATERAL CLINICAL HISTORY: chest pain, r/o acute disease. TECHNIQUE: 2D digital imaging was performed. COMPARISON: CR XR CHEST 2V PA LATERAL from 05/29/2020 FINDINGS: Again nor sternotomy wires and evidence of previous CABG as well as hardware in the cervical spine. Heart size upper normal. Mediastinum not widened. Lungs are clear. No infiltrates nor pleural effusions. No pulmonary edema. No pneumothorax. IMPRESSION: No acute pulmonary findings. DATA REPOSITORY: RADIATION DOSE DELIVERED:
--- NOTE | 2021-04-15 02:15 | RT.EKG_ITS ---
APPROVED REPORT Exam: Resting ECG Reason for Exam: chest pain Patient Location: E HR:61 bpm ECG Measurements Heart Rate 61 AXIS CA 160 P 8 QRSd 98 QRS 67 QT 432 T [id number] QTc 435 Conclusion Sinus rhythm...normal P axis, V-rate 60- 99. No STEMI. No change from previous. I have reviewed and interpreted ECG and agree with software generated interpretation.
[2021-04-15 03:08] LABS: Troponin I < 0.05 ng/mL (<0.06)
--- NOTE | 2021-04-15 03:12 | DI.VRAD_ITS ---
PROCEDURE INFORMATION: Exam: XR Chest Exam date and time: 04/15/2021 12:28 AM Age: 70 years old Clinical indication: Other: Not specified; Patient HX: Chest pain TECHNIQUE: Imaging protocol: XR of the chest. Views: 2 views. COMPARISON: CR XR CHEST 2V PA LATERAL 05/29/2020 11:26 AM FINDINGS: Lungs: Lungs are hyperaerated. Negative for consolidation or collapse. No significant pulmonary vascular congestion. Pleural spaces: Unremarkable. No pleural effusion. No pneumothorax. Heart/Mediastinum: Mild cardiomegaly. Post CABG changes. Bones/joints: Sternotomy wires. Cervical spine fusion partially visualized. IMPRESSION: No acute cardiopulmonary abnormality. Dictated and Authenticated by: Hector Noel MD. Ordering:VIELKA Flroence MD
[2021-04-15 03:55] LABS: Source Nasal/Nares
[2021-04-15] MEDS: Ondansetron 4 MG/2 ML VIAL IVP (03:55)
[2021-04-15] MEDS: Meclizine 25 MG TAB PO (04:02)
[2021-04-15] MEDS: diazePAM 5 MG TAB PO (04:02)
[2021-04-15] MEDS: Normal Saline 250 ML IV (04:20)
[2021-04-15 04:47] LABS: COVID-19 PCR Negative (Negative)
--- NOTE | 2021-04-15 06:14 | W.PM.HP.N ---
Date of service: 04/15/21 Time of Service: 06:15 Assessment and Plan Assessment and plan (1) Atypical chest pain: Status: Acute Assessment and plan: This appears to be musculoskeletal in origin. Continue Tylenol, prn valium. PT c/s. Ice. Consider NSAIDs if CT head negative (2) Vertigo: Status: Acute Assessment and plan: check CT head and tick panel. Prn meclizine and valium. PT consult. (3) Double vision: Status: Acute Assessment and plan: Possibly post-concussive or part of vertigo, but consider TIA. CT head. Consider MRI/neuro c/s. (4) Closed head injury: Status: Acute Assessment and plan: Check CT head. (5) CAD (coronary artery disease), [place] coronary artery: Status: Chronic Assessment and plan: Continue home regimen. No obvious ACS at this time. Qualifiers: Associated angina: without angina [place] vs. transplanted heart: [place] heart Qualified Code(s): I25.10 - Atherosclerotic heart disease of [place] coronary artery without angina pectoris (6) PAF (paroxysmal atrial fibrillation): Status: Chronic Assessment and plan: Not on anticoagulation as she is s/p PINEDA amputation. Monitor on tele (7) Heart failure with preserved ejection fraction, borderline, class III: Status: Chronic Assessment and plan: At baseline. Continue home meds (8) IDDM (insulin dependent diabetes mellitus): Status: Chronic Assessment and plan: Continue home basal bolus insulins (9) DVT prophylaxis: Status: Acute Assessment and plan: Hold chemical DVT ppx pending CT head results (10) Discharge planning issues: Status: Acute Assessment and plan: DNI, not DNR - patient changed her wishes and is aware she has to change her COLST form. History of Present Illness History of Present Illness Chief Complaint: chest pain Narrative: Ms Griggs is a 70 year old female with PMHx of CAD s/p CABG, paroxysmal Afib not on anticoagulation (s/p amputation of PINEDA), chronic diastolic CHF, IDDM2, O2-dependent COPD, on 2L of O2 at all times, CKD III, who presented to [facility] c/o chest pain, which was relieved in the ED with IV tylenol and valium. Troponins have been negative x2. Observation on hospitalist service was requested to complete a troponin trend due to the patient's extensive cardiac history. Additionally, the patient developed nausea in the ED. The patient states she fell 3 days prior to presentation, tangling on her oxygen cord and falling face forward. Otherwise, she does not recall any trauma or injury. She states she woke up yesterday morning feeling fine, but noticed double vision and headache after taking her dog for a walk. Double vision lasted maybe 5 minutes and was replaced by dizziness and nausea, just like her typical vertigo. In the ED, she did receive meclizine and valium with relief. She does report ongoing nausea and dizziness, worse with positional changes and rotation of the head from side to side this morning. Review of Systems Narrative: Additionally, the patient endorses urinary frequency and incontinence, denying dysuria. Denies tick bites. Denies fevers. Denies neck pain or upper back pain. Endorses lower back pain. Denies changes to bowel habits or abdominal pain. All systems reviewed & are unremarkable except as noted in HPI and below PFSH Medical History (Updated 04/15/21 @ 07:23 by Elvira Mims MD) Abnormal mammography 08/10/06 Acute kidney injury superimposed on chronic kidney disease Altered mental status Anemia Ankle pain (03/13/14) Atrial fibrillation paroxysmal, onset 2015, anticoagulated w/ Xarelto; anticoagulation discontinued after left atrial appendage excision 01/03/2019 Atrial fibrillation Atrial flutter Carpal tunnel syndrome Carpal tunnel syndrome (08/10/06) BILATERAL R S/P SURGERY Cervical disc disorder with myelopathy (08/21/08) S/P surgery x 2 Cervical spondylosis with myelopathy Chest pain Neg Stress test Chronic obstructive lung disease CKD (chronic kidney disease) stage 3, GFR 30-59 ml/min Cr about 2.5 Constipation Dehydration Diabetes mellitus Diabetes mellitus 09/20/10 Positive Microalbumin Diastolic CHF Dysuria Essential hypertension Folate deficiency (02/15/16) Gout Gout (07/06/11) Gram-positive bacteremia HAP (hospital-acquired pneumonia) (01/15/19) HCAP (healthcare-associated pneumonia) Hepatomegaly 06/10/04 Hip joint inflamed (09/03/15) Hip pain, left Hip pain, right Hyperglycemia Hyperlipidemia (08/10/00) Hypertension Hypomagnesemia Hypoxia Low back pain (04/10/03) DISC HERNIATION L4. MULTILEVEL DJD/SPINAL STENOSIS BY MRI; S/P surgery Lump in neck Menopausal syndrome 07/11/03 Muscle fatigue 03/04/13 PAF (paroxysmal atrial fibrillation) Posterior tibial tendon dysfunction 02/03/16 Postmenopausal bleeding neg. endometrial biopsy Postoperative wound dehiscence (12/23/15) Prerenal azotemia Primary osteoarthritis of left hip (09/17/15) Pulmonary hypertension Renal impairment (07/11/03) ADRENAL MASS. F/U W/ KINLAW positive microalbumin Restless leg syndrome Rotator cuff syndrome (08/01/09) Shingles Smoker (06/30/16) 01/17/17 1-2 cig/wk Spinal stenosis of lumbar region (02/15/16) Spinal stenosis of lumbar region at multiple levels Tarsal tunnel syndrome 06/11/13 Tarsal tunnel syndrome (06/11/13) Trochanteric bursitis 03/18/13 Upper respiratory tract infection (08/03/15) UTI (urinary tract infection) UTI (urinary tract infection) Vitamin D deficiency Vitamin D deficiency Weakness Surgical History (Updated 04/15/21 @ 06:51 by Ludivina Oconnor DO) Arthrodesis right 2nd toe Cataract (01/07/14) FOLLOWED BY [employer] cervical repair (~10/2008) C6-C7 DISK; RECURRENT SURGERY Cholecystectomy (07/31/13) Endometrial Biopsy NEG H/O arthrodesis right second toe H/O Spinal surgery multiple spine surgeries; low back x 2; She had multilevel DJD and spinal stenosis; disc herniation. 2008-cervical repair; C6-C7 disc; recurrent surgery. History of bilateral tubal ligation 09/11/80 History of gynecologic surgery endometrial biopsy-neg History of hip surgery 11/10/15 left hip arthroplasty 12/04/15-placement of wound VAC to left hip History of orthopedic surgery 09/11/97 tarsal tunnel release Left eye surgery 12/31/17 Ligation of fallopian tube (~1980) Open Carpal Tunnel release Right wrist surgery 10/26/17 Rotator Cuff Repair (~1980) S/P CABG (coronary artery bypass graft) (01/03/19) 4 vessel CABG and LA appendage excision, Dr. Nav Wang, [facility] [place], [place], [place] S/P carpal tunnel release S/P cholecystectomy 09/11/12 S/P rotator cuff repair 09/11/80 SPINE SURGERY Multiple spine surgeries, low back x 2. She had multilevel DJD and spinal stenosis, disc herniation Status post incision and drainage 12/04/15 left hip surgical wound dehiscence and infection tarsal tunnel release (~1997) Total replacement of hip [facility]; LEFT HIP Family History Mother Diabetes Essential hypertension Personal history of malignant neoplasm KIDNEY/LIVER/BRAIN Heart disease Hyperlipidemia Stroke Asthma Father Diabetes Essential hypertension Personal history of malignant neoplasm BONE Heart disease Asthma Sister Diabetes Essential hypertension Depression Heart disease Asthma Grandfather No problems noted. Grandfather No problems noted. Grandmother Personal history of malignant neoplasm UTERINE Grandmother Diabetes Aunt Personal history of malignant neoplasm BREAST Brother Hyperlipidemia Stroke Sister Asthma Son Asthma Daughter Depression Asthma Daughter Asthma Daughter Depression Neoplasm Asthma Brother No problems noted. 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 Pets and animals: Yes Pets and animals: cat(s), dog(s) and horse(s) What is your relationship status?: Panel score (0-1 are the most socially isolated patients): 0 What type of physical activity do you participate in: none, walking and additional Details: would like to start now that it's warm Duration: 15-30 minutes/day Saniya/Yarsani: Gnosticism Special saniya needs: No Seatbelt use: always Do you feel safe at home: Yes Do you feel safe in your relationship?: Yes Meds Allergies and Home Medications Allergies Allergy/AdvReac Type Severity Reaction Status Date / Time oxycodone Allergy Severe Psychosis Verified 04/08/21 13:51 venom-honey bee Allergy Severe ANAPHYLAXIS Verified 04/08/21 13:51 adhesive Allergy BLISTERS Verified 04/08/21 13:51 Home Medications Medication Instructions Recorded Confirmed Type lancets 33 gauge #100 each 12/18/18 04/08/21 Rx polyethylene glycol 3350 [Miralax] 1 g PO PRN PRN 01/15/19 04/15/21 History acetaminophen [Tylenol Extra 1,000 mg PO Q8H PRN PRN #0 tab 01/22/19 04/15/21 Rx Strength] lancets 25 gauge #100 each 01/29/19 04/08/21 Rx B-complex with vitamin C 1 tab PO DAILY 09/19/19 04/15/21 History calcium itml-K4-[id number] vitaliy 2 cap PO DAILY 03/11/20 04/08/21 History allopurinol 100 mg tablet 100 mg PO DAILY #90 tab-cap 05/05/20 04/15/21 Rx aspirin 81 mg PO DAILY #0 tab 06/01/20 04/15/21 Rx albuterol sulfate 2.5 mg INHALATION Q2H PRN PRN #180 09/10/20 04/15/21 Rx ml atorvastatin 40 mg tablet 40 mg PO DAILY #90 tab-cap 09/10/20 04/15/21 Rx duloxetine 60 mg capsule,delayed 60 mg PO DAILY #90 tab-cap 09/10/20 04/15/21 Rx release magnesium hydroxide 400 mg/5 mL 30 ml PO DAILY PRN #3000 ml 09/10/20 04/15/21 Rx oral suspension ropinirole 2 mg tablet 2 mg PO QPM PRN #90 tab 09/10/20 04/15/21 Rx mptuos-nmniwyoe-aiflobc 1 cap PO TID #270 cap 10/01/20 04/15/21 Rx 6,000-19,000-30,000 unit capsule,delayed rel magnesium chloride 71.5 mg 71.5 mg PO BID #180 tab 10/19/20 04/15/21 Rx (magnesium chloride) tablet,delayed release estradiol 1 gm VG .COMPLEX gm 12/03/20 04/15/21 History meclizine 12.5 mg tablet 12.5 mg PO TID PRN #60 tab 12/07/20 04/15/21 Rx pen needle, diabetic 31 gauge x #450 each 12/10/20 04/08/21 Rx 1/4 budesonide-formoterol HFA 160 2 puff INHALATION BID 01/07/21 04/15/21 History mcg-4.5 mcg/actuation aerosol inhaler insulin aspart U-100 100 unit/mL 15 unit SC TID #30 ml 01/07/21 04/15/21 Rx (3 mL) subcutaneous pen insulin glargine 100 unit/mL (3 35 unit SC BID #90 ml 01/07/21 04/15/21 Rx mL) subcutaneous pen sitagliptin 25 mg tablet 25 mg PO DAILY #90 tab 01/07/21 04/15/21 Rx umeclidinium 62.5 mcg/actuation 1 inh INHALATION DAILY #30 ea 01/07/21 04/15/21 Rx blister powder for inhalation epinephrine 0.3 mg/0.3 mL 0.3 mg IM ONCE #2 ea 02/04/21 04/15/21 Rx injection, auto-injector isosorbide mononitrate 10 mg tablet 10 mg PO BID #60 tab 02/04/21 04/15/21 Rx metolazone 5 mg tablet 5 mg PO .4 times week PRN #48 tab 02/18/21 04/15/21 Rx metoprolol succinate 100 mg 100 mg PO DAILY #90 tab 02/18/21 04/15/21 Rx tablet,extended release 24 hr omeprazole 40 mg capsule,delayed 40 mg PO BID #180 cap 02/18/21 04/15/21 Rx release potassium chloride 20 mEq 20 meq PO BID #180 tab 02/18/21 04/15/21 Rx tablet,extended release levetiracetam 500 mg tablet 500 mg PO BID #180 tab 02/22/21 04/15/21 Rx gabapentin 100 mg capsule 100 mg PO TID #270 cap 03/01/21 04/15/21 Rx torsemide 100 mg tablet 100 mg PO DAILY #90 tab 03/19/21 04/15/21 Rx blood sugar diagnostic #300 each 04/08/21 04/08/21 Rx ergocalciferol (vitamin D2) 1,250 50,000 unit PO M-W-F #36 tab-cap 04/08/21 04/15/21 Rx mcg (50,000 unit) capsule Exam Narrative Exam Narrative: General: Very pleasant middle-aged female who appears to be at her baseline mental status, joking, does look tired Neurological: A&Ox3, no focal deficits Psychiatric: Appropriate speech pattern/content Skin: multiple ecchymoses and evidence of scratching B arms, chest HEENT: Atraumatic, normocephalic, EOMI, MMM, clear oropharynx, no submandibular or cervical lymphadenopathy, no goiter or JVD Cardiovascular: RRR, + quiet JENNIFER Lungs: CTAB Gastrointestinal: soft, nontender, nondistended Genitourinary: deferred Extremities: no edema BLE's, 1+ pedal pulses B Results Imaging Additional studies: CXR; No acute cardiopulmonary abnormality. EKG #1: NSR, HR 61, inferolateral ST segment flattening, no acute ischemia EKG #2: NSR, HR 61, unchanged from prior. Labs Result diagrams: 04/15/21 06:30 04/14/21 23:21 Labs: Laboratory Results - last 24 hr 04/14/21 04/14/21 04/15/21 23:21 23:58 02:38 WBC 11.42 H RBC 4.24 Hgb 9.9 L Hct 35.1 L MCV 82.8 MCH 23.3 L MCHC 28.2 L RDW 17.0 H Plt Count 422 H MPV 10.5 Immature Gran % 0.5 Neutrophils % 59.2 Lymphocytes % 19.1 Monocytes % 8.1 Eosinophils % 11.9 Basophils % 1.2 Nucleated RBC % 0 Absolute Neutrophils 6.76 H Absolute Lymphocytes 2.18 Absolute Monocytes 0.93 H Absolute Eosinophils 1.36 H Absolute Basophils 0.14 Sodium 142 Potassium 3.5 Chloride 100 Carbon Dioxide 37.1 H Anion Gap 4.9 BUN 51 H Creatinine 2.6 H Estimated GFR/1.73 m2 18.30 Glucose 110 H Calcium 9.2 Magnesium 1.8 Total Bilirubin 0.4 AST 15 ALT 20 Alkaline Phosphatase 85 Troponin I < 0.05 < 0.05 NT-Pro-B Natriuret Pep 846 H Total Protein 7.4 Albumin 3.3 L COVID-19 Source SARS-CoV-2 (PCR) 04/15/21 03:50 WBC RBC Hgb Hct MCV MCH MCHC RDW Plt Count MPV Immature Gran % Neutrophils % Lymphocytes % Monocytes % Eosinophils % Basophils % Nucleated RBC % Absolute Neutrophils Absolute Lymphocytes Absolute Monocytes Absolute Eosinophils Absolute Basophils Sodium Potassium Chloride Carbon Dioxide Anion Gap BUN Creatinine Estimated GFR/1.73 m2 Glucose Calcium Magnesium Total Bilirubin AST ALT Alkaline Phosphatase Troponin I NT-Pro-B Natriuret Pep Total Protein Albumin COVID-19 Source Nasal/Nares SARS-CoV-2 (PCR) Negative Last Vital Signs Temp 36.6 C 04/15/21 04:35 Pulse 56 L 04/15/21 04:35 Resp 18 04/15/21 04:35 BP 95/60 L 04/15/21 04:35 Pulse Ox 98 04/15/21 04:35
[2021-04-15 06:46] LABS: Abs Immature Grans 0.04 10^3/uL (0.0-0.06); Absolute Eosinophil Count 1.16 10^3/uL (0.0-0.7); Absolute Lymphocyte Count 1.93 10^3/uL (1.2-3.4); Absolute Monocyte Count 0.82 10^3/uL (0.1-0.8); Absolute Neutrophil Count 5.89 10^3/uL (1.2-6.7); Eosinophils % 11.7; HCT 32.5 % (36.0-46.0); HGB 9.1 g/dL (11.2-15.7); Immature Grans % 0.4; Lymphocytes % 19.4; MCH 23.2 pg (27.0-33.0); MCV 82.9 fL (80-95); MPV 10.3 fL (8.0-11.0); Monocytes % 8.2; Neutrophils % 59.3; Nucleated RBC 0 %; Platelet Count 362 10^3/uL (130-400); RBC 3.92 10^6/uL (3.93-5.22); RDW 16.8 % (11.7-14.6); RDW-SD 51.2 fL; WBC 9.94 10^3/uL (4.4-10.8)
[2021-04-15 07:08] LABS: BUN 51 mg/dL (7-18); CREATININE 2.6 mg/dL (0.55-1.02); Chloride 102 mmol/L (98-107); Glucose 94 mg/dL (74-106); Magnesium 1.9 mg/dL (1.8-2.4); Sodium 143 mmol/L (136-145)
[2021-04-15 07:09] LABS: Troponin I < 0.05 ng/mL (<0.06)
[2021-04-15 07:36] LABS: Procalcitonin < 0.1 ng/mL
[2021-04-15] MEDS: Vitamins B Comp w/C TAB 1 TAB PO (08:54)
[2021-04-15] MEDS: Omeprazole 20 MG CAPCR 40 MG PO ×2 (08:54→19:46)
[2021-04-15] MEDS: Allopurinol 100 MG TAB PO (08:54)
[2021-04-15] MEDS: Isosorbide Mononitrate 10 MG TAB PO ×2 (08:54→17:25)
[2021-04-15] MEDS: Creon, Lipase 6,000 CAPCR 1 CAP PO ×3 (08:54→17:25)
[2021-04-15] MEDS: Gabapentin 100 MG CAP PO ×3 (08:54→19:47)
[2021-04-15] MEDS: Torsemide 100 MG TAB PO (08:55)
[2021-04-15] MEDS: DULoxetine 30 MG CAP 60 MG PO (08:55)
[2021-04-15] MEDS: Metoprolol CR 100 MG TABCR PO (08:55)
[2021-04-15] MEDS: levETIRAcetam 500 MG TAB PO ×2 (08:55→19:47)
[2021-04-15] MEDS: Insulin Glargine 300 UNITS/3 ML PEN 35 UNITS SC ×2 (08:56→19:46)
[2021-04-15] MEDS: Aspirin E.C. 81 MG TABEC PO (08:56)
[2021-04-15] MEDS: Potassium Chloride 20 MEQ TABCR PO ×2 (08:56→19:47)
[2021-04-15] MEDS: Magnesium Chloride 64 MG TABCR PO ×2 (08:56→19:46)
[2021-04-15] MEDS: Insulin Aspart 300 UNITS/3 ML PEN 15 UNITS SC ×2 (08:57→17:25)
[2021-04-15] MEDS: Budesonide/Formoterol 160/4.5 6 GM 60 PUFF INH IH ×2 (10:16→19:47)
[2021-04-15] MEDS: Umeclidinium 7 CAP INHALER 1 CAP IH (10:16)
--- NOTE | 2021-04-15 10:28 | PT.INIE ---
Date of service: 04/15/21 Time of Service: 10:28 PT Notes Visit Reasons: Chest pain, H/O CABG, Dizziness Physical Therapy Inpatient Initial Evaluation Date: 04/15/2020 Referring Doctor: Elvira Mims MD PT Orders: PT CONSULT: Limited ability. Vertigo Precautions: Fall. Standard. Activity as tolerated. Patient Profile/Admitting Diagnosis: Patient is a 70-year-old female with past medical history significant for CABG x 4 on 01/03/2019, coronary artery disease, atrial fibrillation, diabetes mellitus, and pulmonary hypertension who presented to the ED on 04/14/2021 with chief complaints of constant chest pain, intermittent SOB/dizziness with head movement. Patient is diagnosed with atypical chest pain, vertigo, double vision, an closed head injury from a fall. PMHX: Medical History (Updated 04/15/21 @ 07:23 by Elvira Mims MD) Abnormal mammography 08/10/06 Acute kidney injury superimposed on chronic kidney disease Altered mental status Anemia Ankle pain (03/13/14) Atrial fibrillation paroxysmal, onset 2015, anticoagulated w/ Xarelto; anticoagulation discontinued after left atrial appendage excision 01/03/2019 Atrial fibrillation Atrial flutter Carpal tunnel syndrome Carpal tunnel syndrome (08/10/06) BILATERAL R S/P SURGERY Cervical disc disorder with myelopathy (08/21/08) S/P surgery x 2 Cervical spondylosis with myelopathy Chest pain Neg Stress test Chronic obstructive lung disease CKD (chronic kidney disease) stage 3, GFR 30-59 ml/min Cr about 2.5 Constipation Dehydration Diabetes mellitus Diabetes mellitus 09/20/10 Positive Microalbumin Diastolic CHF Dysuria Essential hypertension Folate deficiency (02/15/16) Gout Gout (07/06/11) Gram-positive bacteremia HAP (hospital-acquired pneumonia) (01/15/19) HCAP (healthcare-associated pneumonia) Hepatomegaly 06/10/04 Hip joint inflamed (09/03/15) Hip pain, left Hip pain, right Hyperglycemia Hyperlipidemia (08/10/00) Hypertension Hypomagnesemia Hypoxia Low back pain (04/10/03) DISC HERNIATION L4. MULTILEVEL DJD/SPINAL STENOSIS BY MRI; S/P surgery Lump in neck Menopausal syndrome 07/11/03 Muscle fatigue 03/04/13 PAF (paroxysmal atrial fibrillation) Posterior tibial tendon dysfunction 02/03/16 Postmenopausal bleeding neg. endometrial biopsy Postoperative wound dehiscence (12/23/15) Prerenal azotemia Primary osteoarthritis of left hip (09/17/15) Pulmonary hypertension Renal impairment (07/11/03) ADRENAL MASS. F/U W/ KINLAW positive microalbumin Restless leg syndrome Rotator cuff syndrome (08/01/09) Shingles Smoker (06/30/16) 01/17/17 1-2 cig/wk Spinal stenosis of lumbar region (02/15/16) Spinal stenosis of lumbar region at multiple levels Tarsal tunnel syndrome 06/11/13 Tarsal tunnel syndrome (06/11/13) Trochanteric bursitis 03/18/13 Upper respiratory tract infection (08/03/15) UTI (urinary tract infection) UTI (urinary tract infection) Vitamin D deficiency Vitamin D deficiency Weakness Surgical History (Updated 04/15/21 @ 06:51 by Ludivina Oconnor DO) Arthrodesis right 2nd toe Cataract (01/07/14) FOLLOWED BY OPTICAL EXPRESSIONS cervical repair (~10/2008) C6-C7 DISK; RECURRENT SURGERY Cholecystectomy (07/31/13) Endometrial Biopsy NEG H/O arthrodesis right second toe H/O Spinal surgery multiple spine surgeries; low back x 2; She had multilevel DJD and spinal stenosis; disc herniation. 2008-cervical repair; C6-C7 disc; recurrent surgery. History of bilateral tubal ligation 09/11/80 History of gynecologic surgery endometrial biopsy-neg History of hip surgery 11/10/15 left hip arthroplasty 12/04/15-placement of wound VAC to left hip History of orthopedic surgery 09/11/97 tarsal tunnel release Left eye surgery 12/31/17 Ligation of fallopian tube (~1980) Open Carpal Tunnel release Right wrist surgery 10/26/17 Rotator Cuff Repair (~1980) S/P CABG (coronary artery bypass graft) (01/03/19) 4 vessel CABG and LA appendage excision, Dr. Nav Wang, [facility] [place], [place], [place] S/P carpal tunnel release S/P cholecystectomy 09/11/12 S/P rotator cuff repair 09/11/80 SPINE SURGERY Multiple spine surgeries, low back x 2. She had multilevel DJD and spinal stenosis, disc herniation Status post incision and drainage 12/04/15 left hip surgical wound dehiscence and infection tarsal tunnel release (~1997) Total replacement of hip [facility]; LEFT HIP Social History/Home Situation: She was independent with all aspects of ADLs without the need for use of assistive ambulatory device for the past several months now. She states that the daughter has a ramp to enter the house with rails on both sides. She reports that her daughter has a tub/shower with grab bars. She has recently applied for disability. recently acquired a new dog. Equipment Owned/DME: 2-FWW, 2-shower chairs, 2-canes, grab bars, sock aid, shoe horns Subjective: Patient reports having fallen and hit her R knee and head. Happy that she has no fracture from it. Indicates that she still has a headache and dizziness but of less intenisty now. States that she still has pain in the R knee but did not limit her significantly during mobility assessment. Understands why Mountainair-Hallpike was not administered to her due to previous multilevel neck fusion surgery and current C2-C3 anterolisthesis from most current CT. Objective: General Observation: Patient seen resting in bed. IV in L UE. Flynn catheter in place. Tremors to B UE increase with effort. Mental Status: Alert and oriented x4 Pain: 4-5/10 ROM: Right Upper Extremity: Shoulder Flexion WFL. Shoulder abduction WFL. Elbow flexion WFL. Wrist flexion WFL. Functional opening and closing of hand WFL. Left Upper Extremity: Shoulder Flexion WFL. Shoulder abduction WFL. Elbow flexion WFL. Wrist flexion WFL. Functional opening and closing of hand WFL. WFL. Ankle dorsiflexion WFL. Ankle plantarflexion WFL. Right Lower Extremity: Unable to bend hip any further than 90 degrees while seated at EOB. Hip abduction WFL. Knee flexion WFL. Ankle dorsiflexion WFL. Ankle plantarflexion WFL. Left Lower Extremity: Hip flexion allows about 10 degrees from 90 while seated at edge of bed. Hip abduction WFL. Knee flexion WFL. Ankle dorsiflexion to neutral only. Ankle plantarflexion WFL. Strength: Right Upper Extremity: Shoulder flexors 5/5. Shoulder abductors 5/5. Elbow flexors 5/5. Elbow extensors 5/5. Hydrogen Plant Operations Manager strong. Right Upper Extremity: Shoulder flexors 5/5. Shoulder abductors 5/5. Elbow flexors 5/5. Elbow extensors 5/5. Hydrogen Plant Operations Manager strong. Right Lower Extremity: Hip flexors 3-/5. Hip abductors 4-/5. Knee flexors 3+/5. Knee extensors 3+/5. Ankle dorsiflexors 5/5. Ankle plantarflexors 5/5. Left Lower Extremity: Hip flexors 3-/5. Hip abductors 4/5. Knee flexors 4+/5. Knee extensors 4+/5. Ankle dorsiflexors 3-/5. Ankle plantarflexors 5/5. Sensation: Intact as to pain and pressure to B LEs Bed Mobility/Transfers: Supine to sit stand by assist Sit to stand contact guard assist Stand to sit contact guard assist Bed to chair contact guard assist Chair to bed contact guard assist Gait: 10 stesps from bedside to reclining chair using bariatric front-wheeled walker with contact guard assistwith complaints of R knee pain. Did report of headache and mild dizziness, deferred further distance for safety. Balance: Static Sitting: Good Dynamic Sitting: Good Static Standing: Fair Dynamic Standing: Fair Special Tests: Mobility Limitations Standardized Measure [facility] AM-PAC 6 clicks Basic Mobility Inpatient Short Form: Raw Score: 23 CMS Score: 11% deficit Informed Consent/Education: Informed Consent/Education: Patient was instructed in purpose of PT consult and plan of care. Agreeable to proceed with established PT POC to achieve personal goals. Assessment: Patient is a 70-year-old female with past medical history significant for CABG x 4 on 01/03/2019, coronary artery disease, atrial fibrillation, diabetes mellitus, and pulmonary hypertension who presented to the ED on 04/14/2021 with chief complaints of constant chest pain, intermittent SOB/dizziness with head movement. Patient is diagnosed with atypical chest pain, vertigo, double vision, an closed head injury from a fall. Patient had been indepedentn with all transfer and ambulation task performance prior to admission without an assistive device. Decline in transfer and ambulation task performance due to admitting diagnoses is observed for this admission. Patient presents with clinical signs and symptoms consistent with current/admitting diagnoses that have resulted to mobility limitations, gait instability, generalized weakness, and impairment of motor control as demonstrated by the following impairment level findings: 1. Decreased strength to R LE major muscle groups and L ankle 2. Impaired standing balance 3. Impaired activity tolerance Impairments are contributing to the following functional limitations: 1. Inability to safely ambulate without assistive device and physical assistance 2. Increase completion time for mobility ADL performance 3. Increased fall risk 4. Inability to negotiate steps alone safely Patient is assessed as a [id number] high complexity complexity based on the following: History: 70-year-old female with past medical history, impairment level findings, functional limitations, and [facility] CMS score of 42% deficit Examination:Demonstrable impairment in strength, balance, and range of motion with underlying impairments and functional limitations as documented above Presentation: Evolving Decision Makin high complexity Goals: Goals X1 week 1. Supine-Sit independent 2. Sit-Supine independent 3. Sit-Stand independent 4. Stand-Sit independent 5. Bed-Chair independent 6. Chair-Bed independent 7. Independent with gait on level surface using front wheeled walker for at least 100 feet without report of chest pain nor dyspnea 8. Independent with home exercise program 9. Good dynamic standing balance/tolerance Plan of Care/Treatment Plan: 1-2x/day, 7 days/week x 1 week. Plan of care has been reviewed with the [employer] providing the service under Physical Therapy direction. Initiate Physical Therapy intervention for strengthening, bed mobility, transfers, gait, stairs, balance training, use of assistive device. DISCHARGE RECOMMENDATIONS: Patient will benefit from home health PT services in order to progress mobility level using least restrictive assistive ambulatory device, assess home safety, identify additional equipment needs, and establish a functional maintenance program that will increase ability of patient to remain at home. TREATMENT CODE/TIME: 05686 x 20 minutes, [id number] x 15 minutes beginning at 10:28 AM. Thank you very much for this referral. Kathryn Sainz PT, DPT, CLT [facility] Inpatient PT at [facility]
--- NOTE | 2021-04-15 10:31 | DI.VRAD_ITS ---
PROCEDURE INFORMATION: Exam: CT Head Without Contrast Exam date and time: 04/15/2021 7:10 AM Age: 70 years old Clinical indication: Other: NICHOLAS; Other: Fall TECHNIQUE: Imaging protocol: Computed tomography of the head without contrast. Radiation optimization: All CT scans at this facility use at least one of these dose optimization techniques: automated exposure control; mA and/or kV adjustment per patient size (includes targeted exams where dose is matched to clinical indication); or iterative reconstruction. COMPARISON: CT HEAD WO 01/05/2020 1:38 PM FINDINGS: Brain: Normal. No hemorrhage. Unremarkable white matter. No mass effect. Cerebral ventricles: No ventriculomegaly. Paranasal sinuses: Visualized sinuses are unremarkable. No fluid levels. Mastoid air cells: Visualized mastoid air cells are well aerated. Bones/joints: Unremarkable. No acute fracture. Soft tissues: Unremarkable. IMPRESSION: No acute intracranial abnormality. PROCEDURE INFORMATION: Exam: CT Cervical Spine Without Contrast Exam date and time: 04/15/2021 7:10 AM Age: 70 years old Clinical indication: Other: NICHOLAS; Other: Fall TECHNIQUE: Imaging protocol: Computed tomography images of the cervical spine without contrast. Radiation optimization: All CT scans at this facility use at least one of these dose optimization techniques: automated exposure control; mA and/or kV adjustment per patient size (includes targeted exams where dose is matched to clinical indication); or iterative reconstruction. COMPARISON: CT HEAD WO 01/05/2020 1:38 PM FINDINGS: Tubes, catheters and devices: Median sternotomy wires. Bones/joints: No acute or suspicious osseous abnormalities. Straightening of the normal cervical lordosis. Mild anterolisthesis of C2 on C3, which is age indeterminate and may be degenerative in nature. Moderate left-sided facet arthropathy is seen at this level. Anterior spinal fusion hardware C4 through T1, with solid bony fusion of C5 through T1 and partial fusion of C4 and C5 . Posterior spinal stabilization hardware C4 through C6. Metallic wires extending through the spinous processes of C6 through C7.The visualized portions of the surgical hardware are intact and in good position, without evidence of loosening. Discs/Spinal canal/Neural foramina: See Bones/joints finding. Lungs: Lung apices are normal. Soft tissues: Unremarkable. IMPRESSION: 1. No evidence of acute fracture of the cervical spine. 2. Mild anterolisthesis of C2 on C3, which is age indeterminate and may be degenerative in nature. 3. Postoperative changes as described above. Dictated and Authenticated by: Hailee Dao MD. Ordering:MALINA Felix MD
[2021-04-15] MEDS: POTASSIUM CHLORIDE 10 MEQ/100 ML BAG 100 MEQ IVPB ×2 (10:38→12:22)
[2021-04-15] MEDS: Acetaminophen 500 MG TAB 1000 MG PO (10:41)
[2021-04-15] MEDS: Normal Saline Flush 10 ML SYR IVP (10:49)
[2021-04-15 10:53] LABS: Bilirubin Negative (Negative); Blood Negative (Negative); Clarity Sl Cloudy (Clear); Glucose Negative (Negative); Ketones Negative (Negative); Leukocyte Esterase Small (Negative); Nitrite Positive (Negative); Urobilinogen 0.2 EU/dL (Up TO 0.2)
[2021-04-15 11:02] LABS: Bacteria Packed HPF (Negative); C & S Indicated? Yes; WBC >50 HPF (0-5)
--- NOTE | 2021-04-15 14:45 | CHAPLAIN ---
Ann-Marie and I now each other from previous admissions. She was in bed, talking with nursing staff when I visited. She told me about the tejas she's been doing and plans for more tejas. Ann-Marie is usually well supported by her kids. I will continue to visit.
--- NOTE | 2021-04-15 16:12 | PT.INNT ---
Date of service: 04/15/21 Time of Service: 16:12 PT Notes Visit Reasons: Chest pain, H/O CABG, Dizziness 04/15/2021 Patient not available for afternoon PT session, as she was just leaving for testing. Will attempt to resume PT services tomorrow morning.
--- NOTE | 2021-04-15 16:47 | PDOC.CMIN ---
- If Service Date Differs Date of service: 04/15/21 Time of Service: 16:48 Care Management Initial Assess REASON FOR HOSPITALIZATION:: Chest Pain, H/O CABG, Dizziness PAST MEDICAL HISTORY/PAST SURGICAL HISTORY:: Abnormal mammography. 08/10/06. Acute kidney injury superimposed on chronic kidney disease. Altered mental status. Anemia. Ankle pain (03/13/14). Atrial fibrillation. paroxysmal, onset 2015, anticoagulated w/ Xarelto; anticoagulation discontinued after left atrial appendage excision 01/03/2019. Atrial fibrillation. Atrial flutter. Carpal tunnel syndrome. Carpal tunnel syndrome (08/10/06). BILATERAL. R S/P SURGERY. Cervical disc disorder with myelopathy (08/21/08). S/P surgery x 2. Cervical spondylosis with myelopathy. Chest pain. Neg Stress test. Chronic obstructive lung disease. CKD (chronic kidney disease) stage 3, GFR 30-59 ml/min. Cr about 2.5. Constipation. Dehydration. Diabetes mellitus. Diabetes mellitus. 09/20/10 Positive Microalbumin. Diastolic CHF. Dysuria. Essential hypertension. Folate deficiency (02/15/16). Gout. Gout (07/06/11). Gram-positive bacteremia. HAP (hospital-acquired pneumonia) (01/15/19). HCAP (healthcare-associated pneumonia). Hepatomegaly. 06/10/04. Hip joint inflamed (09/03/15). Hip pain, left. Hip pain, right. Hyperglycemia. Hyperlipidemia (08/10/00). Hypertension. Hypomagnesemia. Hypoxia. Low back pain (04/10/03). DISC HERNIATION L4. MULTILEVEL DJD/SPINAL STENOSIS BY MRI; S/P surgery. Lump in neck. Menopausal syndrome. 07/11/03. Muscle fatigue. 03/04/13. PAF (paroxysmal atrial fibrillation). Posterior tibial tendon dysfunction. 02/03/16. Postmenopausal bleeding. neg. endometrial biopsy. Postoperative wound dehiscence (12/23/15). Prerenal azotemia. Primary osteoarthritis of left hip (09/17/15). Pulmonary hypertension. Renal impairment (07/11/03). ADRENAL MASS. F/U W/ KINLAW. positive microalbumin. Restless leg syndrome. Rotator cuff syndrome (08/01/09). Shingles. Smoker (06/30/16). 01/17/17 1-2 cig/wk. Spinal stenosis of lumbar region (02/15/16). Spinal stenosis of lumbar region at multiple levels. Tarsal tunnel syndrome. 06/11/13. Tarsal tunnel syndrome (06/11/13). Trochanteric bursitis. 03/18/13. Upper respiratory tract infection (08/03/15). UTI (urinary tract infection). UTI (urinary tract infection). Vitamin D deficiency. Vitamin D deficiency. Weakness. Surgical History (Updated 04/15/21 @ 06:51 by Ludivina Oconnor DO). Arthrodesis. right 2nd toe. Cataract (01/07/14). FOLLOWED BY OPTICAL EXPRESSIONS. cervical repair (~10/2008). C6-C7 DISK; RECURRENT SURGERY. Cholecystectomy (07/31/13). Endometrial Biopsy. NEG. H/O arthrodesis. right second toe. H/O Spinal surgery. multiple spine surgeries; low back x 2; She had multilevel DJD and spinal stenosis; disc herniation. 2008-cervical repair; C6-C7 disc; recurrent surgery. History of bilateral tubal ligation. 09/11/80. History of gynecologic surgery. endometrial biopsy-neg. History of hip surgery. 11/10/15 left hip arthroplasty 12/04/15-placement of wound VAC to left hip. History of orthopedic surgery. 09/11/97 tarsal tunnel release. Left eye surgery. 12/31/17. Ligation of fallopian tube (~1980). Open Carpal Tunnel release. Right wrist surgery. 10/26/17. Rotator Cuff Repair (~1980). S/P CABG (coronary artery bypass graft) (01/03/19). 4 vessel CABG and LA appendage excision, Dr. Nav Wang, [facility] [place], [place], [place] S/P carpal tunnel release. S/P cholecystectomy. 09/11/12. S/P rotator cuff repair. 09/11/80. SPINE SURGERY. Multiple spine surgeries, low back x 2. She had multilevel DJD and spinal stenosis, disc herniation. Status post incision and drainage. 12/04/15 left hip surgical wound dehiscence and infection. tarsal tunnel release (~1997). Total replacement of hip. [facility]; LEFT HIP PREVIOUS FUNCTIONAL STATUS/SOCIAL/FAMILY SUPPORTS:: Ann-Marie resides in [place] with her daughter, Elli, and adult granddaughter. She is and has four adult children. Ann-Marie spends her time at home watching television, crocheting, baking, and shares her dog rarely leaves her side when she is home. 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 Her daughter, Elli, helps to care for her at home. At this time, she only requires assistance with bathing. CURRENT FUNCTIONAL STATUS:: Per Dr. Mcmahon, Bibi recently went to [place] and had a great time. She reports having a great relationship with Dr. Mcmahon. She is well known to this life insurance underwriter from prior admissions and remains pleasant in interaction. ADVANCE DIRECTIVES:: [facility]ST on file. Has patient been provided with info about the portal/API?: Yes Did the patient sign up for the portal?: No CODE STATUS:: DNI INSURANCE COVERAGE / FINANCIAL ISSUES:: [employer]. Medicare. Medicaid CURRENT HOME/COMMUNITY SERVICES/EQUIPMENT:: Tub seat, FWW, glucometer, O2. PRIMARY CARE PHYSICIAN:: Laisha Mcmahon DO. POTENTIAL DISCHARGE NEEDS:: Follow up appointment with PCP. PATIENT/FAMILY EDUCATION NEEDS:: Review discharge instructions, discuss Ask Me Three. ANTICIPATED BARRIERS TO DISCHARGE:: None identified at this time. TRANSPORTATION:: Via private vehicle with family. PLAN:: Bibi will return home when ready per MD. She will follow up with her PCP and transport via private vehicle with family. CM continues to follow.
[2021-04-15] MEDS: Insulin Aspart 300 UNITS/3 ML PEN SC (17:26)
[2021-04-15] MEDS: Atorvastatin 40 MG TAB PO (19:46)
[2021-04-15] MEDS: rOPINIRole 1 MG TAB 2 MG PO (20:47)
[2021-04-16] VITALS (8 sets, daily range): BP systolic 86–113; BP diastolic 50–67; PULSE 64–75; RESP 16–19; TEMP 36.2–36.8; O2SAT 91–97
[2021-04-16 06:51] LABS: Abs Immature Grans 0.05 10^3/uL (0.0-0.06); Absolute Eosinophil Count 1.25 10^3/uL (0.0-0.7); Absolute Lymphocyte Count 1.65 10^3/uL (1.2-3.4); Absolute Monocyte Count 1.05 10^3/uL (0.1-0.8); Basophils % 0.9; HCT 33.5 % (36.0-46.0); HGB 9.7 g/dL (11.2-15.7); Immature Grans % 0.4; Lymphocytes % 14.5; MCH 23.7 pg (27.0-33.0); MCV 81.7 fL (80-95); MPV 10.2 fL (8.0-11.0); Monocytes % 9.2; Nucleated RBC 0 %; Platelet Count 360 10^3/uL (130-400); RDW 16.8 % (11.7-14.6); RDW-SD 49.4 fL
[2021-04-16 07:09] LABS: Anion Gap 3.6 mmol/L (3-11); BUN 51 mg/dL (7-18); CO2 36.4 mmol/L (21.0-32.0); CREATININE 2.8 mg/dL (0.55-1.02); Chloride 102 mmol/L (98-107); Glucose 113 mg/dL (74-106); Sodium 142 mmol/L (136-145)
[2021-04-16 07:10] LABS: Troponin I < 0.05 ng/mL (<0.06)
[2021-04-16 07:14] LABS: Potassium 2.9 mmol/L (3.5-5.1)
[2021-04-16] MEDS: Budesonide/Formoterol 160/4.5 6 GM 60 PUFF INH IH (07:42)
[2021-04-16] MEDS: Umeclidinium 7 CAP INHALER 1 CAP IH (07:42)
[2021-04-16] MEDS: levETIRAcetam 500 MG TAB PO (07:59)
[2021-04-16] MEDS: Gabapentin 100 MG CAP PO (07:59)
[2021-04-16] MEDS: Omeprazole 20 MG CAPCR 40 MG PO (08:00)
[2021-04-16] MEDS: Creon, Lipase 6,000 CAPCR 1 CAP PO ×3 (08:00→17:21)
[2021-04-16] MEDS: Allopurinol 100 MG TAB PO (08:00)
[2021-04-16] MEDS: Aspirin E.C. 81 MG TABEC PO (08:01)
[2021-04-16] MEDS: DULoxetine 30 MG CAP 60 MG PO (08:01)
[2021-04-16] MEDS: Potassium Chloride 20 MEQ TABCR PO (08:01)
[2021-04-16] MEDS: Magnesium Chloride 64 MG TABCR PO (08:01)
[2021-04-16] MEDS: Insulin Glargine 300 UNITS/3 ML PEN 35 UNITS SC (08:02)
[2021-04-16] MEDS: Insulin Aspart 300 UNITS/3 ML PEN 15 UNITS SC ×2 (08:02→12:23)
[2021-04-16] MEDS: Vitamins B Comp w/C TAB 1 TAB PO (09:10)
--- NOTE | 2021-04-16 09:21 | NUR.NOTE ---
Nursing Note: At approximately 0825 Patient started having a seizure, charge nurse called and MD called at 0827. O2 2L started,side rails up with seizure pads in place and patient was laid on his left side. Seizure lasted approximately 3-5 minutes Doctor present and ordered Valium IV and Valium 5mg IV was given at 0845. Patient did not vomit but was incontinent of urine. Post seizure activity patient resting awake and respond to his name but still none sensible speech Orders where written for a transfer to ICU awaiting a bed
[2021-04-16 09:34] LABS: Magnesium 1.8 mg/dL (1.8-2.4)
--- NOTE | 2021-04-16 09:55 | W.INDIABCONS ---
Date of service: 04/16/21 Time of Service: 09:55 Diabetes Inpatient Consult DESCRIPTION/ASSESSMENT: 70 year old female admitted with vertigo/chestpain with long standing history of CAD, s/p CABG, IDDM, HTN, HLD and morbid obesity. Home Dm meds include aspart 15 u TID, glargine 35 u BID, 25 mg sitagliptin. Most recent A1c: 7.2% (01/20/21) indicating good glycemic control on current DM meds. Following CHO diet with 100% meal completion. INTERVENTION: Declined diabetic education. Provided contact information for outpatient services if needs further support PLAN: continue current meal plan Discharge on current home Dm meds Time Spent in Nutritional Counseling and Treatment: 5 min
[2021-04-16 10:28] LABS: Lyme Ab w Rflx to Lyme Confirm Negative (Negative)
[2021-04-16] MEDS: cefTRIAXone 1 GM/50 ML BAG IVPB (10:35)
[2021-04-16] MEDS: Normal Saline Flush 10 ML SYR IVP (10:35)
[2021-04-16] MEDS: Potassium Chloride 20 MEQ TABCR 40 MEQ PO ×2 (10:36→14:39)
[2021-04-16] MEDS: Normal Saline 250 ML 500 ML IV (11:35)
[2021-04-16] MEDS: Insulin Aspart 300 UNITS/3 ML PEN SC (12:24)
--- NOTE | 2021-04-16 13:10 | PT.INTREAT ---
Date of service: 04/16/21 Time of Service: 10:00 PT Notes Visit Reasons: Chest pain, H/O CABG, Dizziness Inpatient Physical Therapy Treatment Note [facility] Date: 04/16/2021 PRECAUTIONS: Activity as tolerated SUBJECTIVE: Ann-Marie is pleasant and agreeable to participating in PT. She states that she feels that she is back to her functional baseline. She is concerned about her potassium levels and would like to speak with her provider about it. OBJECTIVE: PAIN: Patient c/o B knee stiffness in p.m., resolving with gait training BED MOBILITY/TRANSFERS Sit-stand: I Stand-sit: I GAIT: Assistive Device: FWW in a.m.; SPC in p.m. Weight bearing: Full Assist: S Distance: 50' x2 in a.m.; 100' + 200' in p.m. Deviation: Standing rest x1 due to SOB in both a.m. and p.m. TOILETING: Patient toileted independently ASSESSMENT: Patient tolerated session with complaint of SOB with gait training, requiring standing rest in both a.m. and p.m. She demonstrates steady gait and pacing with use of SPC. PLAN: Continue with general conditioning for improved activity tolerance. TREATMENT CODE/TIME: Session 1: 15 minutes; [id number] (09:45) Session 2: 10 minutes; [id number] (12:50)
--- NOTE | 2021-04-16 14:23 | PDOC.HHF2F_ITS ---
Home Health Certification Home Health Certification: 1. Encounter Date and Reason I certify that Ann-Marie Griggs was seen by Marina Coker on 04/16/21 and that I had a [id number] encounter with this patient that meets the physician face to face encounter requirements. 2. Clinical Findings Supporting Skilled Need and Homebound Status I certify that home health services are medically necessary, include either intermittent custodial and/or physical/speech therapy, and that this fortunato ent is homebound in that absences from the home require considerable and taxing effort and are infrequent or of short duration, or are attributable to the need to receive medical care. [X] (a) Attached documentation from encounter provides clinical findings supporting skilled need and homebound status (including what assistance patient requires to leave the home). The encounter with the patient was in whole, or in part, for the following medical condition, which is the primary reason for home health care: Chest pain, H/O CABG, Dizziness Intermediate: routine nursing evaluation and medication oversight. please draw BMP on monday, April 19, 2021. results to pcp for further medication instructions regarding potassium supplementation. Physical Therapy: routine evaluation and treatment Homebound: patient is unable to safely leave the house unattended d/t ambulatory dysfunction and generalized weakness. 3. Certification and Authentication I certify that I composed the above information based on my clinical judgement relating to this patient's medical condition and, if applicable, clinical findings communicated to me by the NPP or inpatient physician who performed the Home Health Referral. All further orders will be obtained through (Community Based Physician - PCP)
--- NOTE | 2021-04-16 14:29 | DSE_ITS ---
Date of service: 04/16/21 Time of Service: 14:29 DS: Diagnosis Discharge Diagnosis (1) Atypical chest pain: Status: Acute (2) Vertigo: Status: Acute (3) Double vision: Status: Acute (4) Closed head injury: Status: Acute (5) CAD (coronary artery disease), [place] coronary artery: Status: Chronic (6) PAF (paroxysmal atrial fibrillation): Status: Chronic (7) Heart failure with preserved ejection fraction, borderline, class III: Status: Chronic (8) IDDM (insulin dependent diabetes mellitus): Status: Chronic Discharge Plan Disposition Patient Disposition: HOME W/HOME HEALTH SERVICE Condition: Stable Discharge Details Reason For Visit: Chest pain, H/O CABG, Dizziness Admit Date/Time: 04/15/21 03:30 Admit Provider: Elvira Mims Attending Provider: Elvira Mims Primary Care Provider: Laisha Mcmahon [facility] Course Hospital Course: This is a 70 year old female with PMHx of CAD s/p CABG, paroxysmal Afib not on anticoagulation (s/p amputation of PINEDA), chronic diastolic CHF, IDDM2, O2- dependent COPD, on 2L of O2 at all times, CKD III, who presented to [facility] c/o chest pain, which was relieved in the ED with IV tylenol and valium. Troponins were negative x2. Observation on hospitalist service was requested to complete a troponin trend due to the patient's extensive cardiac history. She remained symptom free on med/surg. troponins remained negative. she did feel a little weak and deconditioned and physical therapy consult obtained. she was reambulated and safe for discharge but she would benefit from home health PT services in order to progress mobility level using least restrictive assistive ambulatory device, assess home safety, identify additional equipment needs, and establish a functional maintenance program that will increase ability of patient to remain at home. We will also arrange for nursing for medication oversight and routine nursing evaluation. she was noted to have hypokalemia so potassium dose was increased and she will have her level rechecked on monday. she may benefit from a potassium sparing diuretic if this remains an issue. she is discharged to home with home health services. discharge discussed with Dr Kaplan. Home Meds and New Rx's Prescriptions: Continued (DME) lancets 25 gauge misc See Dose Instructions .ROUTE .MEDSUPPLY Qty: 100 RF: 5 (DME) lancets [OneTouch Delica Lancets] 33 gauge misc See Dose Instructions .ROUTE DAILY Qty: 100 RF: 0 B-complex with vitamin C [Super B Complex-Vitamin C] Tablet 1 tab PO DAILY RF: 0 albuterol sulfate 2.5 mg /3 mL (0.083 %) solution for nebulization 2.5 mg INHALATION Q2H PRN PRN (Reason: shortness of breath or wheezing) Qty: 180 RF: 4 atorvastatin 40 mg tablet 40 mg PO DAILY Qty: 90 RF: 6 duloxetine 60 mg capsule,delayed release(DR/EC) 60 mg PO DAILY Qty: 90 RF: 12 magnesium hydroxide [Milk of Magnesia] 400 mg/5 mL suspension 30 ml PO DAILY PRN (Reason: Constipation) Qty: 3000 RF: 4 ropinirole 2 mg tablet 2 mg PO QPM PRN (Reason: restless leg(s)) Qty: 90 RF: 5 estradiol [Estrace] 0.01 % (0.1 mg/gram) cream 1 gm VG .COMPLEX RF: 0 (DME) Blood Glucose Test Strip See Dose Instructions .ROUTE .MEDSUPPLY Qty: 300 RF: 5 ergocalciferol (vitamin D2) [Vitamin D2] 1,250 mcg (50,000 unit) capsule 50,000 unit PO Qty: 36 RF: 4 isosorbide mononitrate 10 mg tablet 10 mg PO BID Qty: 60 RF: 5 epinephrine [EpiPen 2-Erick] 0.3 mg/0.3 mL auto-injector 0.3 mg IM ONCE Qty: 2 RF: 10 metolazone 5 mg tablet 5 mg PO .4 times week PRN (Reason: chf) Qty: 48 RF: 5 omeprazole 40 mg capsule,delayed release(DR/EC) 40 mg PO BID Qty: 180 RF: 4 metoprolol succinate 100 mg tablet extended release 24 hr 100 mg PO DAILY Qty: 90 RF: 3 allopurinol 100 mg tablet 100 mg PO DAILY Qty: 90 RF: 12 Creon 6,000-19,000 -30,000 unit capsule,delayed release(DR/EC) 1 cap PO TID Qty: 270 RF: 5 Slow-Mag 71.5 mg tablet,delayed release (DR/EC) 71.5 mg PO BID Qty: 180 RF: 4 meclizine 12.5 mg tablet 12.5 mg PO TID PRN (Reason: dizziness) Qty: 60 RF: 3 (DME) pen needle, diabetic [1st Tier Unifine Pentips] 31 gauge x 1/4 needle See Dose Instructions .ROUTE .MEDSUPPLY Qty: 450 RF: 5 Incruse Ellipta 62.5 mcg/actuation blister with device 1 inh inhalation DAILY Qty: 30 RF: 12 Januvia 25 mg tablet 25 mg PO DAILY Qty: 90 RF: 4 Basaglar KwikPen U-100 Insulin 100 unit/mL (3 mL) insulin pen 35 unit SC BID Qty: 90 RF: 4 insulin aspart U-100 [Novolog Flexpen U-100 Insulin] 100 unit/mL (3 mL) insulin pen 15 unit SC TID Qty: 30 RF: 5 budesonide-formoterol [Symbicort] 160-4.5 mcg/actuation HFA aerosol inhaler 2 puff inhalation BID RF: 0 levetiracetam [Keppra] 500 mg tablet 500 mg PO BID Qty: 180 RF: 5 gabapentin 100 mg capsule 100 mg PO TID Qty: 270 RF: 0 torsemide 100 mg tablet 100 mg PO DAILY Qty: 90 RF: 6 polyethylene glycol 3350 [Miralax] 17 gram Powder In Packet 1 g PO PRN PRNRF: 0 acetaminophen [Tylenol Extra Strength] 500 mg Tablet 1,000 mg PO Q8H PRN PRN (Reason: Pain) Qty: 0 RF: 0 aspirin 81 mg Tablet,Delayed Release (Dr/Ec) 81 mg PO DAILY Qty: 0 RF: 0 calcium [id number] vitaliy 133 mg calcium -133 unit-67 mg Capsule 2 cap PO DAILY RF: 0 Changed potassium chloride [K-Tab] 20 mEq tablet extended release 40 meq PO BID Qty: 180 RF: 4 Discharge Instructions Instructions: Chest Pain (DC), Hypokalemia (DC) Additional Instructions: You have been instructed to increase your potassium supplementation to 40 mg twice daily and should have your lab drawn on Monday to evaluate where your potassium level is. Your doctor may want to consider a potassium sparing diuretic to your medication list if you continue to have low potassium levels. Stand Alone Forms: Nursing Discharge Form Referrals: Laisha Mcmahon [place], [place] [Primary Care Provider] - 04/19/21 1:00 pm Activity:: Activity as Tolerated Equipment/Supplies:: No Equipment Needed Diet:: Carb Counting Discharge Orders Discharge Orders: Discharge Order (Routine); Ordered 04/16/21 Ordered By: Marina Coker Other Ambulatory Orders: Basic Metabolic Panel (Routine) Location: None Selected Ordered By: Marina Coker Discharge Data Discharge Date/Time-TO BE ENTERED AT DEPARTURE: 04/16/21 17:24 DS: Summary Time Spent with Patient providing and/or coordinating discharge services: Greater than 30 minutes Status at Discharge Functional status at discharge: uses cane/walker Overall status at discharge: patient is progressing back to baseline Mental Status: mental status grossly normal Speech and Movement: speech and movement normal Mood: congruent mood Affect: normal affect Exam Const General: cooperative, no acute distress and ill appearing chronically Nutritional Appearance: obese HENMT Head: normal to inspection Face and sinus: normal facial exam Eyes General: appearance normal, both eyes and all related structures EOM: EOM intact bilaterally Neck Neck: normal visual inspection Chest Chest: normal inspection of the chest Resp Effort & Inspection: normal respiratory effort and able to speak in complete sentences Auscultation: clear to auscultation bilaterally Cardio Rate: regular rate Rhythm: regular rhythm GI Inspection: normal to inspection Palpation: soft and nontender Auscultation: normal bowel sounds Skin General skin exam: no rashes or lesions noted Neuro General: patient alert, patient awake and patient oriented x3 Cognition: normal cognition Speech: speech normal Motor: muscle tone normal throughout Sensory Exam: no sensory deficits noted Extrem General: normal to inspection, full ROM, capillary refill normal and no calf tenderness bilaterally Psych Appearance: grossly normal Mental Status: mental status grossly normal Speech and Movement: speech and movement normal Mood: congruent mood Affect: normal affect DS: Data Vitals/I&O Vitals and I&O: Vital Signs Temperature 36.8 C 04/16/21 11:27 Temperature Source Tympanic 04/16/21 11:27 Pulse 66 04/16/21 11:27 Pulse Rhythm Irregular 04/16/21 07:30 Pulse 59 L 04/15/21 03:50 Respiratory Rate 19 04/16/21 11:27 Respiratory Effort Non-Labored 04/16/21 07:30 Respiratory Depth Normal 04/16/21 07:30 Respiratory Pattern Normal 04/16/21 07:30 Blood Pressure 113/65 04/16/21 11:27 Blood Pressure Mean 62 04/15/21 01:16 Pulse Oximetry 94 04/16/21 11:27 Oxygen Delivery Method Nasal Cannula 04/16/21 11:27 Oxygen Flow Rate 2 04/16/21 11:27 Pain Level 0 04/16/21 07:40 Intake & Output 04/15/21 04/16/21 04/16/21 23:59 11:59 23:59 Intake Total 100 / 550 260 / 750 490 / 750 Output Total 975 / 1925 700 / 700 Balance -875 / -1375 -440 / 50 490 / 50 Intake: IV 100 / 550 60 / 310 250 / 310 Oral 200 / 440 240 / 440 Output: Urine 975 / 1925 700 / 700 Other: Urine Color Yellow Yellow Urine Appearance Clear Clear Urine Odor Normal Normal Comment pt was incontinent and voided in the commode Voiding Methods Bedside Commode Bedside Commode Diaper Incontinent Data Completed and Pending Labs on day of discharge: Labs from last 24 hours 04/16/21 04/16/21 04/16/21 06:28 06:28 06:28 WBC 11.40 H RBC 4.10 Hgb 9.7 L Hct 33.5 L MCV 81.7 MCH 23.7 L MCHC 29.0 L RDW 16.8 H Plt Count 360 MPV 10.2 Immature Gran % 0.4 Neutrophils % 64.0 Lymphocytes % 14.5 Monocytes % 9.2 Eosinophils % 11.0 Basophils % 0.9 Nucleated RBC % 0 Absolute Neutrophils 7.30 H Absolute Lymphocytes 1.65 Absolute Monocytes 1.05 H Absolute Eosinophils 1.25 H Absolute Basophils 0.10 Sodium 142 Potassium 2.9 L Chloride 102 Carbon Dioxide 36.4 H Anion Gap 3.6 BUN 51 H Creatinine 2.8 H Estimated GFR/1.73 m2 16.80 Glucose 113 H Calcium 9.0 Magnesium 1.8 Troponin I < 0.05 Lyme Disease Antibody 04/15/21 09:50 WBC RBC Hgb Hct MCV MCH MCHC RDW Plt Count MPV Immature Gran % Neutrophils % Lymphocytes % Monocytes % Eosinophils % Basophils % Nucleated RBC % Absolute Neutrophils Absolute Lymphocytes Absolute Monocytes Absolute Eosinophils Absolute Basophils Sodium Potassium Chloride Carbon Dioxide Anion Gap BUN Creatinine Estimated GFR/1.73 m2 Glucose Calcium Magnesium Troponin I Lyme Disease Antibody Negative Preliminary micro results at discharge 04/15/21 10:30 Urine Culture - Preliminary Urine - Reflex from Ua Gram Negative [facility] Medical History (Updated 04/16/21 @ 14:46 by Marina Coker NP) Abnormal mammography 08/10/06 Acute kidney injury superimposed on chronic kidney disease Altered mental status Anemia Ankle pain (03/13/14) Atrial fibrillation paroxysmal, onset 2015, anticoagulated w/ Xarelto; anticoagulation discontin ued after left atrial appendage excision 01/03/2019 Atrial fibrillation Atrial flutter Carpal tunnel syndrome Carpal tunnel syndrome (08/10/06) BILATERAL R S/P SURGERY Cervical disc disorder with myelopathy (08/21/08) S/P surgery x 2 Cervical spondylosis with myelopathy Chest pain Neg Stress test Chronic obstructive lung disease CKD (chronic kidney disease) stage 3, GFR 30-59 ml/min Cr about 2.5 Constipation Dehydration Diabetes mellitus Diabetes mellitus 09/20/10 Positive Microalbumin Diastolic CHF Dysuria Essential hypertension Folate deficiency (02/15/16) Gout Gout (07/06/11) Gram-positive bacteremia HAP (hospital-acquired pneumonia) (01/15/19) HCAP (healthcare-associated pneumonia) Hepatomegaly 06/10/04 Hip joint inflamed (09/03/15) Hip pain, left Hip pain, right Hyperglycemia Hyperlipidemia (08/10/00) Hypertension Hypomagnesemia Hypoxia Low back pain (04/10/03) DISC HERNIATION L4. MULTILEVEL DJD/SPINAL STENOSIS BY MRI; S/P surgery Lump in neck Menopausal syndrome 07/11/03 Muscle fatigue 03/04/13 PAF (paroxysmal atrial fibrillation) Posterior tibial tendon dysfunction 02/03/16 Postmenopausal bleeding neg. endometrial biopsy Postoperative wound dehiscence (12/23/15) Prerenal azotemia Primary osteoarthritis of left hip (09/17/15) Pulmonary hypertension Renal impairment (07/11/03) ADRENAL MASS. F/U W/ KINLAW positive microalbumin Restless leg syndrome Rotator cuff syndrome (08/01/09) Shingles Smoker (06/30/16) 01/17/17 1-2 cig/wk Spinal stenosis of lumbar region (02/15/16) Spinal stenosis of lumbar region at multiple levels Tarsal tunnel syndrome 06/11/13 Tarsal tunnel syndrome (06/11/13) Trochanteric bursitis 03/18/13 Upper respiratory tract infection (08/03/15) UTI (urinary tract infection) UTI (urinary tract infection) Vitamin D deficiency Vitamin D deficiency Weakness Surgical History (Updated 04/15/21 @ 06:51 by Ludivina Oconnor DO) Arthrodesis right 2nd toe Cataract (01/07/14) FOLLOWED BY [employer] cervical repair (~10/2008) C6-C7 DISK; RECURRENT SURGERY Cholecystectomy (07/31/13) Endometrial Biopsy NEG H/O arthrodesis right second toe H/O Spinal surgery multiple spine surgeries; low back x 2; She had multilevel DJD and spinal stenosis; disc herniation. 2009-cervical repair; C6-C7 disc; recurrent surgery. History of bilateral tubal ligation 09/11/80 History of gynecologic surgery endometrial biopsy-neg History of hip surgery 11/10/15 left hip arthroplasty 12/04/15-placement of wound VAC to left hip History of orthopedic surgery 09/11/97 tarsal tunnel release Left eye surgery 12/31/17 Ligation of fallopian tube (~1980) Open Carpal Tunnel release Right wrist surgery 10/26/17 Rotator Cuff Repair (~1980) S/P CABG (coronary artery bypass graft) (01/03/19) 4 vessel CABG and [place] appendage [place], [place]. Nav [place] [facility] [place] S/P carpal tunnel release S/P cholecystectomy 09/11/12 S/P rotator cuff repair 09/11/80 SPINE SURGERY Multiple spine surgeries, low back x 2. She had multilevel DJD and spinal stenosis, disc herniation Status post incision and drainage 12/04/15 left hip surgical wound dehiscence and infection tarsal tunnel release (~1997) Total replacement of hip [facility]; LEFT HIP Family History Mother Diabetes Essential hypertension Personal history of malignant neoplasm KIDNEY/LIVER/BRAIN Heart disease Hyperlipidemia Stroke Asthma Father Diabetes Essential hypertension Personal history of malignant neoplasm BONE Heart disease Asthma Sister Diabetes Essential hypertension Depression Heart disease Asthma Grandfather No problems noted. Grandfather No problems noted. Grandmother Personal history of malignant neoplasm UTERINE Grandmother Diabetes Aunt Personal history of malignant neoplasm BREAST Brother Hyperlipidemia Stroke Sister Asthma Son Asthma Daughter Depression Asthma Daughter Asthma Daughter Depression Neoplasm Asthma Brother No problems noted. 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
[2021-04-16] MEDS: POTASSIUM CHLORIDE 10 MEQ/100 ML BAG 100 MEQ IVPB (14:38)
--- NOTE | 2021-04-16 15:53 | CHAPLAIN ---
I had a brief visit with Ann-Marie. She his happy about being discharged this afternoon.
[2021-04-16] MEDS: Isosorbide Mononitrate 10 MG TAB PO (17:21)
--- NOTE | 2021-04-16 17:37 | PDOC.CMDIS ---
- If Service Date Differs Date of service: 04/16/21 Time of Service: 17:38 LACE Index Scoring Tool - Questions: Length of Stay (in days): 1 Acuity (Admit via E.D.?): Yes Comorbidities: Previous M.I., Diabetes w/o Complication, Congestive Heart Failure, Chronic Pulmonary Disease, Liver or Renal Disease E.D. Visits: 2 - Answers: Total Score: 11 Risk of Readmission: High Risk Care Management Discharge Reason for Hospitalization: Chest Pain, H/O CABG, Dizziness Discharge Plan: Ann-Marie will return home today with new CARLITOS RN, PT. CM informed [facility] of her discharge today. Her daughter will drive her home via private vehicle. She will follow up with her PCP and discharge plan of care. She is happy to be going home. Patient/Family Education Needs: Review discharge instructions regarding activity levels and medications, discussion of self care needs and goals of care. Services Needed at Discharge: Home Health Care Services (CARLITOS RN, PT)
[2021-04-18 23:04] LABS: Anaplasma phagocytophilum Negative (Negative); B. miyamotoi PCR Negative (Negative); Babesia divergens/MO-1 Negative (Negative); Babesia duncani Negative (Negative); Babesia microti Negative (Negative); Ehrlichia chaffeensis Negative (Negative); Ehrlichia ewingii/canis Negative (Negative); Ehrlichia muris eauclairensis Negative (Negative)
--- NOTE | 2021-04-19 16:59 | PT.INDS ---
Date of service: 04/19/21 Time of Service: 17:00 PT Notes Visit Reasons: Chest pain, H/O CABG, Dizziness Physical Therapy Inpatient Discharge Summary Date: 04/15/2020 Date of service: 04/15/2021 through 04/16/2021 This is a clinical summary of care provided for the duration of dates listed above. No charge was made in the completion of this documentation. Referring Doctor: Elvira Mims MD PT Orders: PT CONSULT: Limited ability. Vertigo Precautions: Fall. Standard. Activity as tolerated. Patient Profile/Admitting Diagnosis: Patient is a 70-year-old female with past medical history significant for CABG x 4 on 01/03/2019, coronary artery disease, atrial fibrillation, diabetes mellitus, and pulmonary hypertension who presented to the ED on 04/14/2021 with chief complaints of constant chest pain, intermittent SOB/dizziness with head movement. Patient is diagnosed with atypical chest pain, vertigo, double vision, an closed head injury from a fall. PMHX: Medical History (Updated 04/15/21 @ 07:23 by Elvira Mims MD) Abnormal mammography 08/10/06 Acute kidney injury superimposed on chronic kidney disease Altered mental status Anemia Ankle pain (03/13/14) Atrial fibrillation paroxysmal, onset 2015, anticoagulated w/ Xarelto; anticoagulation discontinued after left atrial appendage excision 01/03/2019 Atrial fibrillation Atrial flutter Carpal tunnel syndrome Carpal tunnel syndrome (08/10/06) BILATERAL R S/P SURGERY Cervical disc disorder with myelopathy (08/21/08) S/P surgery x 2 Cervical spondylosis with myelopathy Chest pain Neg Stress test Chronic obstructive lung disease CKD (chronic kidney disease) stage 3, GFR 30-59 ml/min Cr about 2.5 Constipation Dehydration Diabetes mellitus Diabetes mellitus 09/20/10 Positive Microalbumin Diastolic CHF Dysuria Essential hypertension Folate deficiency (02/15/16) Gout Gout (07/06/11) Gram-positive bacteremia HAP (hospital-acquired pneumonia) (01/15/19) HCAP (healthcare-associated pneumonia) Hepatomegaly 06/10/04 Hip joint inflamed (09/03/15) Hip pain, left Hip pain, right Hyperglycemia Hyperlipidemia (08/10/00) Hypertension Hypomagnesemia Hypoxia Low back pain (04/10/03) DISC HERNIATION L4. MULTILEVEL DJD/SPINAL STENOSIS BY MRI; S/P surgery Lump in neck Menopausal syndrome 07/11/03 Muscle fatigue 03/04/13 PAF (paroxysmal atrial fibrillation) Posterior tibial tendon dysfunction 02/03/16 Postmenopausal bleeding neg. endometrial biopsy Postoperative wound dehiscence (12/23/15) Prerenal azotemia Primary osteoarthritis of left hip (09/17/15) Pulmonary hypertension Renal impairment (07/11/03) ADRENAL MASS. F/U W/ KINLAW positive microalbumin Restless leg syndrome Rotator cuff syndrome (08/01/09) Shingles Smoker (06/30/16) 01/17/17 1-2 cig/wk Spinal stenosis of lumbar region (02/15/16) Spinal stenosis of lumbar region at multiple levels Tarsal tunnel syndrome 06/11/13 Tarsal tunnel syndrome (06/11/13) Trochanteric bursitis 03/18/13 Upper respiratory tract infection (08/03/15) UTI (urinary tract infection) UTI (urinary tract infection) Vitamin D deficiency Vitamin D deficiency Weakness Surgical History (Updated 04/15/21 @ 06:51 by Ludivian Oconnor DO) Arthrodesis right 2nd toe Cataract (01/07/14) FOLLOWED BY [employer] cervical repair (~10/2008) C6-C7 DISK; RECURRENT SURGERY Cholecystectomy (07/31/13) Endometrial Biopsy NEG H/O arthrodesis right second toe H/O Spinal surgery multiple spine surgeries; low back x 2; She had multilevel DJD and spinal stenosis; disc herniation. 2008-cervical repair; C6-C7 disc; recurrent surgery. History of bilateral tubal ligation 09/11/80 History of gynecologic surgery endometrial biopsy-neg History of hip surgery 11/10/15 left hip arthroplasty 12/04/15-placement of wound VAC to left hip History of orthopedic surgery 09/11/97 tarsal tunnel release Left eye surgery 12/31/17 Ligation of fallopian tube (~1980) Open Carpal Tunnel release Right wrist surgery 10/26/17 Rotator Cuff Repair (~1980) S/P CABG (coronary artery bypass graft) (01/03/19) 4 vessel CABG and LA appendage excision, Dr. Nav Wang, [facility], [place], [place] S/P carpal tunnel release S/P cholecystectomy 09/11/12 S/P rotator cuff repair 09/11/80 SPINE SURGERY Multiple spine surgeries, low back x 2. She had multilevel DJD and spinal stenosis, disc herniation Status post incision and drainage 12/04/15 left hip surgical wound dehiscence and infection tarsal tunnel release (~1997) Total replacement of hip [facility]; LEFT HIP Social History/Home Situation: She was independent with all aspects of ADLs without the need for use of assistive ambulatory device for the past several months now. She states that the daughter has a ramp to enter the house with rails on both sides. She reports that her daughter has a tub/shower with grab bars. She has recently applied for disability. recently acquired a new dog. Equipment Owned/DME: 2-FWW, 2-shower chairs, 2-canes, grab bars, sock aid, shoe horns Subjective: NT. See most recent SPLICING SUPERVISOR notes. Objective: General Observation: NT. See most recent SPLICING SUPERVISOR notes. Mental Status: NT. See most recent SPLICING SUPERVISOR notes. Pain: NT. See most recent SPLICING SUPERVISOR notes. ROM: Right Upper Extremity: Shoulder Flexion WFL. Shoulder abduction WFL. Elbow flexion WFL. Wrist flexion WFL. Functional opening and closing of hand WFL. Left Upper Extremity: Shoulder Flexion WFL. Shoulder abduction WFL. Elbow flexion WFL. Wrist flexion WFL. Functional opening and closing of hand WFL. WFL. Ankle dorsiflexion WFL. Ankle plantarflexion WFL. Right Lower Extremity: Unable to bend hip any further than 90 degrees while seated at EOB. Hip abduction WFL. Knee flexion WFL. Ankle dorsiflexion WFL. Ankle plantarflexion WFL. Left Lower Extremity: Hip flexion allows about 10 degrees from 90 while seated at edge of bed. Hip abduction WFL. Knee flexion WFL. Ankle dorsiflexion to neutral only. Ankle plantarflexion WFL. Strength: Right Upper Extremity: Shoulder flexors 5/5. Shoulder abductors 5/5. Elbow flexors 5/5. Elbow extensors 5/5. Caustic Preparer strong. Right Upper Extremity: Shoulder flexors 5/5. Shoulder abductors 5/5. Elbow flexors 5/5. Elbow extensors 5/5. Caustic Preparer strong. Right Lower Extremity: Hip flexors 3-/5. Hip abductors 4-/5. Knee flexors 3+/5. Knee extensors 3+/5. Ankle dorsiflexors 5/5. Ankle plantarflexors 5/5. Left Lower Extremity: Hip flexors 3-/5. Hip abductors 4/5. Knee flexors 4+/5. Knee extensors 4+/5. Ankle dorsiflexors 3-/5. Ankle plantarflexors 5/5. Sensation: Intact as to pain and pressure to B LEs Bed Mobility/Transfers: Supine to sit independent Sit to stand independent Stand to sit independent Bed to chair independent Chair to bed independent Gait: 10 stesps from bedside to reclining chair using bariatric front-wheeled walker with contact guard assistwith complaints of R knee pain. Did report of headache and mild dizziness, deferred further distance for safety. Balance: Static Sitting: Good Dynamic Sitting: Good Static Standing: Fair Dynamic Standing: Fair Assessment: Patient is a 70-year-old female with past medical history significant for CABG x 4 on 01/03/2019, coronary artery disease, atrial fibrillation, diabetes mellitus, and pulmonary hypertension who presented to the ED on 04/14/2021 with chief complaints of constant chest pain, intermittent SOB/dizziness with head movement. Patient is diagnosed with atypical chest pain, vertigo, double vision, an closed head injury from a fall. Patient had been indepedentn with all transfer and ambulation task performance prior to admission without an assistive device. Decline in transfer and ambulation task performance due to admitting diagnoses is observed for this admission. Patient presents with clinical signs and symptoms consistent with current/admitting diagnoses that have resulted to mobility limitations, gait instability, generalized weakness, and impairment of motor control as demonstrated by the following impairment level findings: 1. Decreased strength to R LE major muscle groups and L ankle 2. Impaired standing balance 3. Impaired activity tolerance Impairments are contributing to the following functional limitations: 1. Inability to safely ambulate without assistive device and physical assistance 2. Increase completion time for mobility ADL performance 3. Increased fall risk 4. Inability to negotiate steps alone safely Goals: Goals X1 week 1. Supine-Sit independent MET 2. Sit-Supine independent MET 3. Sit-Stand independent MET 4. Stand-Sit independent MET 5. Bed-Chair independent MET 6. Chair-Bed independent MET 7. Independent with gait on level surface using front wheeled walker for at least 100 feet without report of chest pain nor dyspnea NOT MET 8. Independent with home exercise program NOT MET 9. Good dynamic standing balance/tolerance NOT MET DISCHARGE RECOMMENDATIONS: Patient will benefit from home health PT services in order to progress mobility level using least restrictive assistive ambulatory device, assess home safety, identify additional equipment needs, and establish a functional maintenance program that will increase ability of patient to remain at home. TREATMENT CODE/TIME: ERYN Thank you very much for this referral. Kathryn Sainz PT, DPT, CLT [facility] Inpatient PT at [facility]
== END 2021-04-16 17:24 | disposition home health service (06) ==
LOC: ER 04-15 04:20 → MS 04-15 04:26
PROVIDERS: Nurse Practitioner Acute Care; Admitting Provider Internal Medicine; Emergency Provider Physician Assistant; PCP Family Medicine; Visit Provider Internal Medicine
DX: R07.89 Other chest pain (principal); R42 Dizziness and giddiness; H53.2 Diplopia; I25.10 Atherosclerotic heart disease of native coronary artery without angina pectoris; I48.0 Paroxysmal atrial fibrillation; S09.90XA Unspecified injury of head, initial encounter; N18.30 Chronic kidney disease, stage 3 unspecified; I50.32 Chronic diastolic (congestive) heart failure; E11.22 Type 2 diabetes mellitus with diabetic chronic kidney disease; Z79.4 Long term (current) use of insulin; Z95.1 Presence of aortocoronary bypass graft; J44.9 Chronic obstructive pulmonary disease, unspecified; Z99.81 Dependence on supplemental oxygen; W01.0XXA Fall on same level from slipping, tripping and stumbling without subsequent striking against object, initial encounter; I13.0 Hypertensive heart and chronic kidney disease with heart failure and stage 1 through stage 4 chronic kidney disease, or unspecified chronic kidney disease; E78.5 Hyperlipidemia, unspecified; E83.42 Hypomagnesemia; E53.8 Deficiency of other specified B group vitamins; E55.9 Vitamin D deficiency, unspecified; Z87.891 Personal history of nicotine dependence; Z20.822 Contact with and (suspected) exposure to COVID-19; E87.6 Hypokalemia
CPT/HCPCS: 36415; 80048; 80053; 84145; 87077; 87635; 87798; 93005; 94640; 96374; 96375; 97162; 97530; 99285; J3490; 70450; 71046; 72125; 81003; 81015; 83735; 83880; 84484; 85025; 86618; 87086; 87186; 93010; 93970; 99217; 99220; G0378; J0131; J0696; J2405; J3480

== ENCOUNTER 2021-04-19 13:39 | Outpatient (REF) | payer OTHER, MEDICAID, SELFPAY ==
[2021-04-19 11:28] LABS: Anion Gap 8.3 mmol/L (3-11); BUN 47 mg/dL (7-18); CO2 31.7 mmol/L (21.0-32.0); CREATININE 2.5 mg/dL (0.55-1.02); Calcium 9.2 mg/dL (8.5-10.1); Chloride 102 mmol/L (98-107); Estimated GFR 19.15 (mL/min/1.73m2); Glucose 226 mg/dL (74-106); Potassium 4.2 mmol/L (3.5-5.1); Sodium 142 mmol/L (136-145)
== END 2021-04-19 13:40 | disposition home or self-care (01) ==
LOC: LBN 13:39
PROVIDERS: PCP Family Medicine; Visit Provider Family Medicine
DX: I25.10 Atherosclerotic heart disease of native coronary artery without angina pectoris (principal); I50.30 Unspecified diastolic (congestive) heart failure; I13.0 Hypertensive heart and chronic kidney disease with heart failure and stage 1 through stage 4 chronic kidney disease, or unspecified chronic kidney disease
CPT/HCPCS: 80048

== ENCOUNTER → 2021-05-28 13:13 | Outpatient (BNVA) | payer OTHER, MEDICAID, SELFPAY | PROVIDERS: PCP Family Medicine; Referring Provider Family Medicine; Visit Provider Internal Medicine Cardiovascular Disease | DX: I50.30 Unspecified diastolic (congestive) heart failure (principal); I25.10 Atherosclerotic heart disease of native coronary artery without angina pectoris; Z95.1 Presence of aortocoronary bypass graft; I48.91 Unspecified atrial fibrillation; I11.0 Hypertensive heart disease with heart failure; E11.9 Type 2 diabetes mellitus without complications | CPT/HCPCS: 99214 ==

== ENCOUNTER 2021-08-24 21:04 | Outpatient (REF) | payer OTHER, MEDICAID, SELFPAY ==
[2021-08-24 21:38] LABS: HCT 35.7 % (36.0-46.0); HGB 9.7 g/dL (11.2-15.7); MCH 22.7 pg (27.0-33.0); MCHC 27.2 % (32.0-36.0); MCV 83.6 fL (80-95); MPV 10.1 fL (8.0-11.0); Platelet Count 422 10^3/uL (130-400); RBC 4.27 10^6/uL (3.93-5.22); RDW 17.6 % (11.7-14.6); RDW-SD 53.8 fL; WBC 11.16 10^3/uL (4.4-10.8)
[2021-08-24 21:50] LABS: ALT 18 U/L (14-59); AST 11 U/L (15-37); Albumin 3.6 g/dL (3.4-5.0); Alkaline Phosphatase 91 U/L (46-116); Anion Gap 7.8 mmol/L (3-11); BUN 42 mg/dL (7-18); Bilirubin, Total 0.4 mg/dL (0.2-1.0); C-Reactive Protein 0.08 mg/dL (0.0-0.3); CO2 33.2 mmol/L (21.0-32.0); CREATININE 2.7 mg/dL (0.55-1.02); Calcium 9.1 mg/dL (8.5-10.1); Chloride 102 mmol/L (98-107); Estimated GFR 17.52 (mL/min/1.73m2); Glucose 98 mg/dL (74-106); Magnesium 2.1 mg/dL (1.8-2.4); NT-proBNP 1145 pg/mL (<300); Potassium 4.6 mmol/L (3.5-5.1); Sodium 143 mmol/L (136-145); Total Protein 7.1 g/dL (6.4-8.2)
[2021-08-24 21:55] LABS: ESR 66 mm/hr (0-30)
[2021-08-24 22:09] LABS: Hemoglobin A1C 6.8 % (<5.7)
== END 2021-08-24 21:05 | disposition home or self-care (01) ==
LOC: LBN 21:04
PROVIDERS: PCP Family Medicine; Visit Provider Family Medicine
DX: I50.30 Unspecified diastolic (congestive) heart failure (principal); E11.9 Type 2 diabetes mellitus without complications; M86.9 Osteomyelitis, unspecified; I50.9 Heart failure, unspecified; J44.0 Chronic obstructive pulmonary disease with (acute) lower respiratory infection
CPT/HCPCS: 80053; 85027; 85652; 83036; 83735; 83880; 86140

== ENCOUNTER 2021-08-27 01:24 | Outpatient (CLI) | payer OTHER, MEDICAID, SELFPAY ==
--- NOTE | 2021-08-27 13:22 | DI.RAD_ITS ---
Exam(s) XR KNEE RT 3V AP,LAT,BEBA EXAM: XR KNEE RT 3V AP,LAT,BEBA CLINICAL HISTORY: knee pain,FELL, W19.XXXA,M25.569. TECHNIQUE: 2D digital imaging was performed of the right knee. Three views obtained. AP, PA tunnel and lateral views were obtained. COMPARISON: CR RIGHT KNEE 3 VIEWS from 09/17/2010 CR RIGHT KNEE 3 VIEWS from 09/17/2010 FINDINGS: BONES: No acute fracture is present. No bony destructive lesion is seen. The bones are osteopenic. JOINTS: The knee is normally aligned. No joint effusion is seen. Mild degenerative changes are seen i n the knee with joint space narrowing and periarticular spurring. The findings are most marked in th e lateral femoral tibial and patellofemoral joints. SOFT TISSUE: Surgical clips are seen in the soft tissues. There is atherosclerosis present. IMPRESSION: Mild degenerative changes of the right knee. DATA REPOSITORY: RADIATION DOSE DELIVERED:
--- NOTE | 2021-08-27 13:22 | DI.RAD_ITS ---
Exam(s) XR CERVICAL SPINE COMP 4-5V EXAM: XR CERVICAL SPINE COMP 4-5V CLINICAL HISTORY: ? osteomyelitis/s/p fusion of cervical spine,M86.9. TECHNIQUE: 2D digital imaging was performed. COMPARISON: CR CERV SP WITH OBL FLEX/EXT from 05/06/2016 CR CERV SP WITH OBL FLEX/EXT from 05/06/[address] HEAD CERVICAL SPINE WO from 04/15/[address] HEAD CERVICAL SPINE WO from 04/15/2021 FINDINGS: BONES: There again seen postsurgical changes throughout the cervical spine which appears stable. The re is stable alignment of the cervical spine. There is no change in the lucency around the inferior screw in the anterior cervical plate. There is no acute fracture or dislocation. The odontoid is in tact. The lateral masses are well aligned. No destructive changes are seen to suggest acute osteomy elitis. Surgical clips are seen in the soft tissues. Sternal wires are in place. IMPRESSION: Stable degenerative changes in the cervical spine. No radiographic findings to suggest osteomyelitis . DATA REPOSITORY: RADIATION DOSE DELIVERED:
== END 2021-08-27 01:44 ==
PROVIDERS: PCP Family Medicine; Visit Provider Family Medicine
DX: M25.561 Pain in right knee (principal); M17.11 Unilateral primary osteoarthritis, right knee; Z98.1 Arthrodesis status; M50.30 Other cervical disc degeneration, unspecified cervical region
CPT/HCPCS: 73562; 72050

== ENCOUNTER 2021-09-25 13:56 | Emergency (ER) | payer OTHER, MEDICAID, SELFPAY ==
--- NOTE | 2021-09-25 13:45 | DI.CT_ITS ---
Exam(s) CT HEAD WO EXAM: CT HEAD WO CLINICAL HISTORY: fall, head injury. TECHNIQUE: Imaging Protocol: Axial computed tomography images with coronal and sagittal reformatted images were created and reviewed COMPARISON: CT CT HEAD CERVICAL SPINE WO from 04/15/2021 FINDINGS: There are no skull fractures nor fluid in the visualized paranasal sinuses. There is no evidence of intracranial hemorrhage, mass effect, or shift of midline structures. There are no extra-axial fluid collections. The ventricles are not enlarged or shifted and there is no blo od within the ventricular system nor within the basal cisterns. There is again noted relatively symmetrical hypodensity in the white matter bilaterally consistent wi th chronic small vessel disease, unchanged from April 2021 IMPRESSION: No acute intracranial findings on this noninfused CT scan of the brain. No significant change compared to 04/15/2021 RADIATION DOSE DELIVERED: 793.82mGy.cm Total DLP DATA REPOSITORY: All CT scans at this facility are submitted to the National Radiology Data Registry (NRDR) Dose Index Registry (DIR) with the [employer] ([employer]). RADIATION OPTIMIZATION: All CT scans at this facility use at least one of these dose optimization te chniques: automated exposure control; mA and/or kV adjustment per patient size (includes targeted exa ms where dose is matched to clinical indication); or iterative reconstruction.
--- NOTE | 2021-09-25 13:45 | DI.RAD_ITS ---
Exam(s) XR KNEE RT 4V+ EXAM: XR KNEE RT 4V+ CLINICAL HISTORY: fall injury. TECHNIQUE: 2D digital imaging was performed. COMPARISON: CR XR KNEE RT 3V AP,LAT,BEBA from 08/27/2021 FINDINGS: There is no evidence of acute fracture but there is a joint effusion which signifies internal derange ment. Moderate degenerative changes are again noted in the lateral compartment and milder degenerati ve changes in the other compartments. No obvious tibial plateau fracture IMPRESSION: No new osseous findings but there is a joint effusion which may signify a subtle occult fracture or o ther internal derangement. DATA REPOSITORY: RADIATION DOSE DELIVERED:
[2021-09-25 13:51] VITALS: BP 97/64; PULSE 63; RESP 16; TEMP 36; O2SAT 95
--- NOTE | 2021-09-25 13:57 | W.ED.GENAD ---
Discharge Plan Disposition Patient Disposition: HOME Condition: Stable Discharge Details Clinical Impression: Fall, Knee pain, acute, Closed head injury Primary Care Provider: Laisha Mcmahon ED Provider: Clarence Meek Home Meds and New Rx's Prescriptions: Continued (DME) lancets 25 gauge misc See Dose Instructions .ROUTE .MEDSUPPLY Qty: 100 RF: 5 (DME) lancets [OneTouch Delica Lancets] 33 gauge misc See Dose Instructions .ROUTE DAILY Qty: 100 RF: 0 B-complex with vitamin C [Super B Complex-Vitamin C] Tablet 1 tab PO DAILY RF: 0 albuterol sulfate 2.5 mg /3 mL (0.083 %) solution for nebulization 2.5 mg INHALATION Q2H PRN PRN (Reason: shortness of breath or wheezing) Qty: 180 RF: 4 magnesium hydroxide [Milk of Magnesia] 400 mg/5 mL suspension 30 ml PO DAILY PRN (Reason: Constipation) Qty: 3000 RF: 4 estradiol [Estrace] 0.01 % (0.1 mg/gram) cream 1 gm VG .COMPLEX RF: 0 (DME) Blood Glucose Test Strip See Dose Instructions .ROUTE .MEDSUPPLY Qty: 300 RF: 5 ergocalciferol (vitamin D2) [Vitamin D2] 1,250 mcg (50,000 unit) capsule 50,000 unit PO Qty: 36 RF: 4 epinephrine [EpiPen 2-Erick] 0.3 mg/0.3 mL auto-injector 0.3 mg IM ONCE Qty: 2 RF: 10 omeprazole 40 mg capsule,delayed release(DR/EC) 40 mg PO BID Qty: 180 RF: 4 metoprolol succinate 100 mg tablet extended release 24 hr 100 mg PO DAILY Qty: 90 RF: 3 gabapentin 100 mg capsule 100 mg PO TID Qty: 270 RF: 0 metolazone 5 mg tablet 5 mg PO .4 times week PRN (Reason: chf) RF: 0 levetiracetam [Keppra] 500 mg tablet 500 mg PO BID RF: 0 mupirocin 2 % ointment 1 applic topical BID Qty: 22 RF: 3 Creon 6,000-19,000 -30,000 unit capsule,delayed release(DR/EC) 1 cap PO TID Qty: 270 RF: 5 Slow-Mag 71.5 mg tablet,delayed release (DR/EC) 71.5 mg PO BID Qty: 180 RF: 4 meclizine 12.5 mg tablet 12.5 mg PO TID PRN (Reason: dizziness) Qty: 60 RF: 3 (DME) pen needle, diabetic [1st Tier Unifine Pentips] 31 gauge x 1/4 needle See Dose Instructions .ROUTE .MEDSUPPLY Qty: 450 RF: 5 Incruse Ellipta 62.5 mcg/actuation blister with device 1 inh inhalation DAILY Qty: 30 RF: 12 Januvia 25 mg tablet 25 mg PO DAILY Qty: 90 RF: 4 Basaglar KwikPen U-100 Insulin 100 unit/mL (3 mL) insulin pen 35 unit SC BID Qty: 90 RF: 4 insulin aspart U-100 [Novolog Flexpen U-100 Insulin] 100 unit/mL (3 mL) insulin pen 15 unit SC TID Qty: 30 RF: 5 budesonide-formoterol [Symbicort] 160-4.5 mcg/actuation HFA aerosol inhaler 2 puff inhalation BID RF: 0 levetiracetam [Keppra] 500 mg tablet 500 mg PO BID Qty: 180 RF: 5 torsemide 100 mg tablet 100 mg PO DAILY Qty: 90 RF: 6 potassium chloride [K-Tab] 20 mEq tablet extended release 40 meq PO BID Qty: 180 RF: 4 malathion 0.5 % lotion 1 applic topical QWEEK Qty: 59 RF: 1 allopurinol 100 mg tablet 100 mg PO DAILY Qty: 90 RF: 12 fluconazole 150 mg tablet 150 mg PO Q3D Qty: 2 RF: 0 triamcinolone acetonide 0.1 % cream 1 applic topical BID Qty: 80 RF: 0 isosorbide mononitrate 10 mg tablet 10 mg PO BID Qty: 180 RF: 5 atorvastatin 40 mg tablet 40 mg PO DAILY Qty: 90 RF: 6 duloxetine 60 mg capsule,delayed release(DR/EC) 60 mg PO DAILY Qty: 90 RF: 12 ropinirole 2 mg tablet 2 mg PO QPM PRN (Reason: restless leg(s)) Qty: 90 RF: 5 polyethylene glycol 3350 [Miralax] 17 gram Powder In Packet 1 g PO PRN PRNRF: 0 acetaminophen [Tylenol Extra Strength] 500 mg Tablet 1,000 mg PO Q8H PRN PRN (Reason: Pain) Qty: 0 RF: 0 aspirin 81 mg Tablet,Delayed Release (Dr/Ec) 81 mg PO DAILY Qty: 0 RF: 0 calcium jvau-V8-nsrsvhlbk vitaliy 133 mg calcium -133 unit-67 mg Capsule 2 cap PO DAILY RF: 0 Discharge Instructions Instructions: Head Injury (ED), Swollen Knee Joint (ED) Additional Instructions: Wear Rodriguez wrap as needed, advance activity as tolerated. Rest, elevate, cool compresses every 2 hours for 20 minutes. Vihr-aru-zqcxnia medications such as Tylenol for discomfort as directed. Use your walker for ambulation as opposed to your pain. Please watch for new or worse symptoms and return to the ER for any concerns. Lastly, I do recommend that you reach out to the orthopedic office on Monday to make them aware of your ER visit and see if they can see you sooner than your scheduled appointment on October 15. Discharge Data Discharge Date/Time-TO BE ENTERED AT DEPARTURE: 09/25/21 16:09 Medical Decision Making This is a 70-year-old female who had a mechanical fall over her oxygen tubing, reporting headache and acute on chronic right knee pain. She initially denies LOC but then wonders if she did lose some time in the morning, is unsure. Clinically she is in no acute distress, neurologically intact. I see no overt signs of head trauma. Given her head injury will obtain CT imaging of her head. We will also obtain x-ray of her right knee. Blood pressure initially 97/64 but repeat blood pressure was 105/72, this appears to be near her baseline when comparing previous visits. CT of head reveals no acute pathology. X-ray of right knee reveals a joint effusion but no acute bony abnormality. Discussed findings with patient. Patient is adamant that she would like to go home, does not want admission or to discuss rehab facility. She was able to ambulate slowly but steadily using a walker here in the ER and states that she will use a walker at home and no longer use the cane. We discussed the importance of following up with orthopedic for her ongoing chronic right knee pain. Her right knee was wrapped with a 6 inch Rodriguez wrap. Given her age, multiple, abilities, and fall, I did have concerns about discharging her home but she states that she feels safe going home and feels as though she can manage in her current condition. Standard discharge and return precautions were provided. This documentation was generated using [employer] dictation system, please disregard any oddities of phrase or misspellings. Medical Records Medical records reviewed: Yes I reviewed the patient's medical records. Imaging Data Radiologic Study: Attestation: I personally reviewed and interpreted this imaging study as follows: Imaging: CT Scan Radiologist's impression: PROCEDURE INFORMATION: Exam: CT Head Without Contrast Exam date and time: 09/25/2021 2:00 PM Age: 70 years old Clinical indication: Pain; Headache not specified; Patient HX: Trauma, fall. TECHNIQUE: Imaging protocol: Computed tomography of the head without contrast. Radiation optimization: All CT scans at this facility use at least one of these dose optimization techniques: automated exposure control; mA and/or kV adjustment per patient size (includes targeted exams where dose is matched to clinical indication); or iterative reconstruction. COMPARISON: CT HEAD CERVICAL SPINE WO 04/15/2021 7:[address] from 01/05/2020 FINDINGS: Brain: Ventricles, sulci are unchanged when compared with the patient's prior exam. There is no acute hemorrhage. There is no new intracranial mass or shift. There is no new cortical or major vascular territory infarct. There is a probable tiny lacune noted within the left thalamus, likely remote and previously identified. There are no new extra-axial collections. Cerebral ventricles: No significant ventricular enlargement/hydrocephalus Paranasal sinuses: There is no new sinus opacification or fluid level Mastoid air cells: There is opacification of a few inferior right mastoid air cells also previously noted. There is no new mastoid or middle ear opacification Orbital cavity: Patient has had prior lens replacement. No new orbital abnormality is identified. Bones/joints: There is no acute bony abnormality Soft tissues: No significant subcutaneous abnormality IMPRESSION: No acute findings on non-contrast CT of the head Radiologic Study #2: Attestation: I personally reviewed and interpreted this imaging study as follows: Imaging: X-Ray Radiologist's impression: PROCEDURE INFORMATION: Exam: XR Right Knee Exam date and time: 09/25/2021 2:00 PM Age: 70 years old Clinical indication: Pain; Knee; Right; Patient HX: Fall TECHNIQUE: Imaging protocol: XR Right knee. Views: 4 or more views. COMPARISON: CR XR KNEE RT 3V AP,LAT,BEBA 08/27/2021 1:15 PM FINDINGS: Bones/joints: Bony structures are mildly osteopenic. Degenerative changes are seen in the right knee. There is no acute fracture or dislocation. Soft tissues: Joint effusion is seen within the suprapatellar bursa. . Vasculature: Vascular calcification is noted within the distal SFA and popliteal artery. IMPRESSION: Joint effusion. DJD. No acute fracture identified. HPI General Mode of arrival: EMS. Date/Time Provider Initiated Documentation: 09/25/21 13:57. Limitations to Documentation: no limitations. Information obtained by: patient and EMS. HPI Narrative: This is a 70-year-old female, past medical history that includes A. fib, diabetes, CHF, hypertension, O2 dependent, typically ambulates using a cane although she does have a walker but chooses not to use it, not anticoagulated, presents to the ER status post mechanical fall this morning around 730 after tripping on her oxygen line. Patient reports striking her head, denies LOC, states that she remembers everything that occurred, but does have a global headache and worsening right knee pain. Patient reports chronic right knee pain, scheduled to see orthopedics on October 15, and reports that her pain is now worse in her right knee. She denies any other injury or any symptoms prior to the fall. Later she states that she fell around 7:30 in the morning and the next time she noticed the time was 9:45 in the morning and wonders if she did in fact lose consciousness or has a lapse in her time and/or memory. She reports chronic neck pain which is unchanged. She denies any chest pain, worsening shortness of breath, abdominal pain, nausea, vomiting, change in bowel or bladder function, numbness, tingling, weakness. Patient states that she has animals at home, has some help at home, and will not be admitted or consider going to a rehab facility. She states just make me walk again. She has been unwilling to attempt to bear any weight since the initial fall. Patient was given 100 fentanyl by EMS in route to the ER. Related Data Home Medications Medication Instructions Recorded Confirmed lancets 33 gauge #100 each 12/18/18 09/25/21 polyethylene glycol 3350 [Miralax] 1 g PO PRN PRN 01/15/19 09/25/21 acetaminophen [Tylenol Extra 1,000 mg PO Q8H PRN PRN #0 tab 01/22/19 09/25/21 Strength] lancets 25 gauge #100 each 01/29/19 09/25/21 B-complex with vitamin C 1 tab PO DAILY 09/19/19 09/25/21 calcium iupw-O6-slnnlwhid vitaliy 2 cap PO DAILY 03/11/20 09/25/21 aspirin 81 mg PO DAILY #0 tab 06/01/20 09/25/21 albuterol sulfate 2.5 mg INHALATION Q2H PRN PRN #180 09/10/20 09/25/21 ml magnesium hydroxide 400 mg/5 mL 30 ml PO DAILY PRN #3000 ml 09/10/20 09/25/21 oral suspension vwettz-okzkbzkf-yajztss 1 cap PO TID #270 cap 10/01/20 09/25/21 6,000-19,000-30,000 unit capsule,delayed rel magnesium chloride 71.5 mg 71.5 mg PO BID #180 tab 10/19/20 09/25/21 (magnesium chloride) tablet,delayed release estradiol 1 gm VG .COMPLEX gm 12/03/20 09/25/21 meclizine 12.5 mg tablet 12.5 mg PO TID PRN #60 tab 12/07/20 09/25/21 pen needle, diabetic 31 gauge x #450 each 12/10/20 09/25/21 1/ budesonide-formoterol HFA 160 2 puff INHALATION BID 01/07/21 09/25/21 mcg-4.5 mcg/actuation aerosol inhaler insulin aspart U-100 100 unit/mL 15 unit SC TID #30 ml 01/07/21 09/25/21 (3 mL) subcutaneous pen insulin glargine 100 unit/mL (3 35 unit SC BID #90 ml 01/07/21 09/25/21 mL) subcutaneous pen sitagliptin 25 mg tablet 25 mg PO DAILY #90 tab 01/07/21 09/25/21 umeclidinium 62.5 mcg/actuation 1 inh INHALATION DAILY #30 ea 01/07/21 09/25/21 blister powder for inhalation epinephrine 0.3 mg/0.3 mL 0.3 mg IM ONCE #2 ea 02/04/21 09/25/21 injection, auto-injector metoprolol succinate 100 mg 100 mg PO DAILY #90 tab 02/18/21 09/25/21 tablet,extended release 24 hr omeprazole 40 mg capsule,delayed 40 mg PO BID #180 cap 02/18/21 09/25/21 release levetiracetam 500 mg tablet 500 mg PO BID #180 tab 02/22/21 09/25/21 torsemide 100 mg tablet 100 mg PO DAILY #90 tab 03/19/21 09/25/21 blood sugar diagnostic #300 each 04/08/21 09/25/21 ergocalciferol (vitamin D2) 1,250 50,000 unit PO M-W-F #36 tab-cap 04/08/21 09/25/21 mcg (50,000 unit) capsule potassium chloride 20 mEq 40 meq PO BID #180 tab 04/21/21 09/25/21 tablet,extended release malathion 0.5 % lotion 1 applic TOPICAL QWEEK #59 ml 04/26/21 09/25/21 allopurinol 100 mg tablet 100 mg PO DAILY #90 tab-cap 05/27/21 09/25/21 levetiracetam 500 mg tablet 500 mg PO BID 05/28/21 09/25/21 metolazone 5 mg tablet 5 mg PO .4 times week PRN tab 05/28/21 09/25/21 gabapentin 100 mg capsule 100 mg PO TID #270 cap 06/07/21 09/25/21 fluconazole 150 mg tablet 150 mg PO Q3D #2 tab 07/20/21 09/25/21 triamcinolone acetonide 0.1 % 1 applic TOPICAL BID #80 g 07/20/21 09/25/21 topical cream atorvastatin 40 mg tablet 40 mg PO DAILY #90 tab-cap 08/03/21 09/25/21 duloxetine 60 mg capsule,delayed 60 mg PO DAILY #90 tab-cap 08/03/21 09/25/21 release isosorbide mononitrate 10 mg tablet 10 mg PO BID #180 tab 08/03/21 09/25/21 ropinirole 2 mg tablet 2 mg PO QPM PRN #90 tab 08/03/21 09/25/21 mupirocin 2 % topical ointment 1 applic TOPICAL BID #22 g 08/24/21 09/25/21 Previous Rx's Medication Instructions Recorded lancets 33 gauge #100 each 12/18/18 acetaminophen [Tylenol Extra 1,000 mg PO Q8H PRN PRN #0 tab 01/22/19 Strength] lancets 25 gauge #100 each 01/29/19 aspirin 81 mg PO DAILY #0 tab 06/01/20 albuterol sulfate 2.5 mg INHALATION Q2H PRN PRN #180 09/10/20 ml magnesium hydroxide 400 mg/5 mL 30 ml PO DAILY PRN #3000 ml 09/10/20 oral suspension rmycil-atqskunc-vtlwpbl 1 cap PO TID #270 cap 10/01/20 6,000-19,000-30,000 unit capsule,delayed rel magnesium chloride 71.5 mg 71.5 mg PO BID #180 tab 10/19/20 (magnesium chloride) tablet,delayed release meclizine 12.5 mg tablet 12.5 mg PO TID PRN #60 tab 12/07/20 pen needle, diabetic 31 gauge x #450 each 12/10/20 1/ insulin aspart U-100 100 unit/mL 15 unit SC TID #30 ml 01/07/21 (3 mL) subcutaneous pen insulin glargine 100 unit/mL (3 35 unit SC BID #90 ml 01/07/21 mL) subcutaneous pen sitagliptin 25 mg tablet 25 mg PO DAILY #90 tab 01/07/21 umeclidinium 62.5 mcg/actuation 1 inh INHALATION DAILY #30 ea 01/07/21 blister powder for inhalation epinephrine 0.3 mg/0.3 mL 0.3 mg IM ONCE #2 ea 02/04/21 injection, auto-injector metoprolol succinate 100 mg 100 mg PO DAILY #90 tab 02/18/21 tablet,extended release 24 hr omeprazole 40 mg capsule,delayed 40 mg PO BID #180 cap 02/18/21 release levetiracetam 500 mg tablet 500 mg PO BID #180 tab 02/22/21 torsemide 100 mg tablet 100 mg PO DAILY #90 tab 03/19/21 blood sugar diagnostic #300 each 04/08/21 ergocalciferol (vitamin D2) 1,250 50,000 unit PO M-W-F #36 tab-cap 04/08/21 mcg (50,000 unit) capsule potassium chloride 20 mEq 40 meq PO BID #180 tab 04/21/21 tablet,extended release malathion 0.5 % lotion 1 applic TOPICAL QWEEK #59 ml 04/26/21 allopurinol 100 mg tablet 100 mg PO DAILY #90 tab-cap 05/27/21 gabapentin 100 mg capsule 100 mg PO TID #270 cap 06/07/21 fluconazole 150 mg tablet 150 mg PO Q3D #2 tab 07/20/21 triamcinolone acetonide 0.1 % 1 applic TOPICAL BID #80 g 07/20/21 topical cream atorvastatin 40 mg tablet 40 mg PO DAILY #90 tab-cap 08/03/21 duloxetine 60 mg capsule,delayed 60 mg PO DAILY #90 tab-cap 08/03/21 release isosorbide mononitrate 10 mg tablet 10 mg PO BID #180 tab 08/03/21 ropinirole 2 mg tablet 2 mg PO QPM PRN #90 tab 08/03/21 mupirocin 2 % topical ointment 1 applic TOPICAL BID #22 g 08/24/21 Allergies Allergy/AdvReac Type Severity Reaction Status Date / Time oxycodone Allergy Severe Psychosis Verified 09/25/21 14:00 venom-honey bee Allergy Severe ANAPHYLAXIS Verified 09/25/21 14:00 adhesive Allergy BLISTERS Verified 09/25/21 14:00 General Stated Complaint: Trauma STEPHANIE: 2 Review of Systems Constitutional Constitutional: Denies fever(s) and Reports headache(s) Eyes Eyes: Denies change in vision ENT Ears, Nose, Mouth, and Throat: Reports headache(s) and Reports neck pain (Chronic) Cardiovascular Cardiovascular: Denies chest pain and Reports dyspnea (Chronic) Respiratory Respiratory: Denies cough Gastrointestinal Gastrointestinal: Denies abdominal pain, Denies nausea and Denies vomiting Genitourinary Genitourinary: Denies dysuria Musculoskeletal Musculoskeletal: Reports arthralgias, Denies numbness, Reports stiffness and Denies tingling Integumentary/Breasts Skin/Breast: Denies rash Neurologic Neurologic: Reports headache(s), Denies numbness and Denies tingling Hematologic/Lymphatic Hematologic/Lymphatic: Denies easy bleeding and Denies easy bruising PFSH All Active Problems Wound abscess (Acute) Knee pain, acute (Acute) Fall (Acute) CHF (congestive heart failure) (Chronic) SOB (shortness of breath) (Acute) Knee pain (Acute) Hypokalemia (Acute) Double vision (Acute) Closed head injury (Acute) Vertigo (Acute) Chest pain (Acute) Hx of CABG (Chronic) Discharge planning issues (Acute) IDDM (insulin dependent diabetes mellitus) (Chronic) DVT prophylaxis (Acute) Atypical chest pain (Acute) Myoclonic epileptic seizures (Acute) Seizure (Acute) Greater trochanteric bursitis of left hip (Acute) Left hip pain (Acute) Heart failure with preserved ejection fraction, borderline, class III (Chronic) Congestive heart failure (Chronic) Pancreatic atrophy (Acute) DVT (deep venous thrombosis) (Chronic) NSTEMI (non-ST elevated myocardial infarction) (Acute) 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) CAD (coronary artery disease), [place] coronary artery (Chronic) Vjsyc-pv-vunopkm kidney injury (Acute) SOB (shortness of breath) (Acute) CHF (congestive heart failure) (Chronic) DNR no code (do not resuscitate) (Acute) Thumb pain (Acute) At risk for diabetic foot ulcer (Acute) Leukocytosis (Acute) Acute on chronic diastolic (congestive) heart failure (Acute) Vaginal atrophy (Acute) PAF (paroxysmal atrial fibrillation) (Chronic) Hypoxia (Acute) Pulmonary hypertension (Chronic) Anemia (Chronic) CKD (chronic kidney disease) stage 3, GFR 30-59 ml/min (Chronic) Cr about 2.5 S/P CABG (coronary artery bypass graft) (Chronic 01/03/19) 4 vessel CABG and [place]age [place] [facility] [place] Hip pain, left (Chronic) Hip pain, right (Chronic) Diabetes mellitus (Chronic) Hyperlipidemia (Chronic 08/10/00) Gout (Chronic 07/06/11) Spinal stenosis of lumbar region (Chronic 02/15/16) Hammer toe (Chronic) Left/right Chronic obstructive lung disease (Chronic) BMI 40.0-44.9, adult (Chronic 12/02/14) Annual physical exam (Chronic 12/14/15) Numbness and tingling in left upper extremity (Chronic) Atrial fibrillation (Chronic) paroxysmal, onset 2015, anticoagulated w/ Xarelto; anticoagulation discontinued after left atrial appendage excision 01/03/2019 Restless leg syndrome (Chronic) Essential hypertension (Chronic) Macrocytic anemia (Chronic) Medical History Abnormal mammography 08/10/06 Acute kidney injury superimposed on chronic kidney disease Altered mental status Ankle pain (03/13/14) Atrial fibrillation Atrial flutter Carpal tunnel syndrome Carpal tunnel syndrome (08/10/06) BILATERAL R S/P SURGERY Cervical disc disorder with myelopathy (08/21/08) S/P surgery x 2 Cervical spondylosis with myelopathy Chest pain Neg Stress test Constipation Dehydration Diabetes mellitus 09/20/10 Positive Microalbumin Diastolic CHF Dysuria Folate deficiency (02/15/16) Gout Gram-positive bacteremia HAP (hospital-acquired pneumonia) (01/15/19) HCAP (healthcare-associated pneumonia) Hepatomegaly 06/10/04 Hip joint inflamed (09/03/15) Hyperglycemia Hypertension Hypomagnesemia Hypoxia Low back pain (04/10/03) DISC HERNIATION L4. MULTILEVEL DJD/SPINAL STENOSIS BY MRI; S/P surgery Lump in neck Menopausal syndrome 07/11/03 Muscle fatigue 03/04/13 Posterior tibial tendon dysfunction 02/03/16 Postmenopausal bleeding neg. endometrial biopsy Postoperative wound dehiscence (12/23/15) Prerenal azotemia Primary osteoarthritis of left hip (09/17/15) Renal impairment (07/11/03) ADRENAL MASS. F/U W/ KINLAW positive microalbumin Rotator cuff syndrome (08/01/09) Shingles Smoker (06/30/16) 01/17/17 1-2 cig/wk Spinal stenosis of lumbar region at multiple levels Tarsal tunnel syndrome 06/11/13 Trochanteric bursitis 03/18/13 Upper respiratory tract infection (08/03/15) UTI (urinary tract infection) UTI (urinary tract infection) Vitamin D deficiency Vitamin D deficiency Weakness Surgical History Arthrodesis right 2nd toe Cataract (01/07/14) FOLLOWED BY [facility] cervical repair (~10/2008) C6-C7 DISK; RECURRENT SURGERY Cholecystectomy (07/31/13) Endometrial Biopsy NEG H/O arthrodesis right second toe H/O Spinal surgery multiple spine surgeries; low back x 2; She had multilevel DJD and spinal stenosis; disc herniation. 2008-cervical repair; C6-C7 disc; recurrent surgery. History of bilateral tubal ligation 09/11/80 History of gynecologic surgery endometrial biopsy-neg History of hip surgery 11/10/15 left hip arthroplasty 12/04/15-placement of wound VAC to left hip History of orthopedic surgery 09/11/97 tarsal tunnel release Left eye surgery 12/31/17 Ligation of fallopian tube (~1980) Open Carpal Tunnel release Right wrist surgery 10/26/17 Rotator Cuff Repair (~1980) S/P carpal tunnel release S/P cholecystectomy 09/11/12 S/P rotator cuff repair 09/11/80 SPINE SURGERY Multiple spine surgeries, low back x 2. She had multilevel DJD and spinal stenosis, disc herniation Status post incision and drainage 12/04/15 left hip surgical wound dehiscence and infection tarsal tunnel release (~1997) Total replacement of hip [facility]; LEFT HIP Family History Mother Diabetes Essential hypertension Personal history of malignant neoplasm KIDNEY/LIVER/BRAIN Heart disease Hyperlipidemia Stroke Asthma Father Diabetes Essential hypertension Personal history of malignant neoplasm BONE Heart disease Asthma Sister Diabetes Essential hypertension Depression Heart disease Asthma Grandfather No problems noted. Grandfather No problems noted. Grandmother Personal history of malignant neoplasm UTERINE Grandmother Diabetes Aunt Personal history of malignant neoplasm BREAST Brother Hyperlipidemia Stroke Sister Asthma Son Asthma Daughter Depression Asthma Daughter Asthma Daughter Depression Neoplasm Asthma Brother No problems noted. 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 Pets and animals: Yes Pets and animals: cat(s), dog(s) and horse(s) What is your relationship status?: Panel score (0-1 are the most socially isolated patients): 0 What type of physical activity do you participate in: none, walking and additional Details: would like to start now that it's warm Duration: 15-30 minutes/day Saniya/Islam: Hoahaoism Special saniya needs: No Seatbelt use: always Do you feel safe at home: Yes Do you feel safe in your relationship?: Yes Additional Social history: recently moved out and is now living with a friend Exam Const General: cooperative, comfortable and no acute distress Orientation: alert, awake and oriented x3 [facility] Head: normal to inspection, normocephalic and atraumatic Face and sinus: normal facial exam Mouth: moist mucous membranes Eyes General: appearance normal, both eyes and all related structures Alignment and Position: alignment normal Periorbital: periorbital findings normal Eyelids: eyelids normal Conjunctivae: conjunctivae normal Sclera: sclerae normal Cornea: corneas normal Pupils: PERRL EOM: EOM intact bilaterally Direct ophthalmoscopy: normal light reflex Neck Neck: normal visual inspection, full ROM, trachea midline, supple and tender (Diffuse mild posterior, no midline point tenderness) Resp Effort & Inspection: normal respiratory effort and able to speak in complete sentences Auscultation: diminished lung sounds bilaterally in the lower lung chan Cardio Rate: regular rate Rhythm: regular rhythm GI Inspection: obesity Palpation: soft and nontender Back/Spine/Pelvis Back: no CVA tenderness and No back tenderness Skin General skin exam: no rashes or lesions noted Neuro General: patient alert, patient awake, patient oriented x3, moves all extremities and no focal motor deficits Cognition: normal cognition Speech: speech normal Motor: muscle tone normal throughout Sensory Exam: no sensory deficits noted Extrem Other: Examination limited secondary to body habitus. Patient has a small area of ecchymosis to the lateral aspect of her right knee. She has full extension but limited flexion of her right knee. There is diffuse discomfort across the anterior and medial aspect and there is discomfort with varus, valgus, and anterior draw. There is no laxity. Calf is unremarkable. Nontender. No palpable cord. Capillary refill normal bilateral lower extremities. Hip and ankle unremarkable. Psych Appearance: grossly normal Mental Status: mental status grossly normal Course Vital Signs Vital signs: Vital Signs Temperature 36.0 C L 09/25/21 13:51 Pulse 63 09/25/21 13:51 Respiratory Rate 16 09/25/21 13:51 Blood Pressure 97/64 L 09/25/21 13:51 Pulse Oximetry 95 09/25/21 13:51 Temperature 36.0 C L 09/25/21 13:51 Temperature Source Temporal Artery Scan 09/25/21 13:51 Pulse 63 09/25/21 13:51 Respiratory Rate 16 09/25/21 13:51 Blood Pressure 97/64 L 09/25/21 13:51 Blood Pressure Position Sitting 09/25/21 13:51 Pulse Oximetry 95 09/25/21 13:51 Oxygen Delivery Method Nasal Cannula 09/25/21 13:51 Oxygen Flow Rate 2 09/25/21 13:51 Pain Level 4 09/25/21 13:51
--- NOTE | 2021-09-25 14:41 | DI.VRAD_ITS ---
PROCEDURE INFORMATION: Exam: CT Head Without Contrast Exam date and time: 09/25/2021 2:00 PM Age: 70 years old Clinical indication: Pain; Headache not specified; Patient HX: Trauma, fall. TECHNIQUE: Imaging protocol: Computed tomography of the head without contrast. Radiation optimization: All CT scans at this facility use at least one of these dose optimization techniques: automated exposure control; mA and/or kV adjustment per patient size (includes targeted exams where dose is matched to clinical indication); or iterative reconstruction. COMPARISON: CT HEAD CERVICAL SPINE WO 04/15/2021 7:[address] from 01/05/2020 FINDINGS: Brain: Ventricles, sulci are unchanged when compared with the patient's prior exam. There is no acute hemorrhage. There is no new intracranial mass or shift. There is no new cortical or major vascular territory infarct. There is a probable tiny lacune noted within the left thalamus, likely remote and previously identified. There are no new extra-axial collections. Cerebral ventricles: No significant ventricular enlargement/hydrocephalus Paranasal sinuses: There is no new sinus opacification or fluid level Mastoid air cells: There is opacification of a few inferior right mastoid air cells also previously noted. There is no new mastoid or middle ear opacification Orbital cavity: Patient has had prior lens replacement. No new orbital abnormality is identified. Bones/joints: There is no acute bony abnormality Soft tissues: No significant subcutaneous abnormality IMPRESSION: No acute findings on non-contrast CT of the head. Dictated and Authenticated by: Marii Moore MD. Ordering:BRITNEY Lima MD
--- NOTE | 2021-09-25 14:45 | DI.VRAD_ITS ---
PROCEDURE INFORMATION: Exam: XR Right Knee Exam date and time: 09/25/2021 2:00 PM Age: 70 years old Clinical indication: Pain; Knee; Right; Patient HX: Fall TECHNIQUE: Imaging protocol: XR Right knee. Views: 4 or more views. COMPARISON: CR XR KNEE RT 3V AP,LAT,BEBA 08/27/2021 1:15 PM FINDINGS: Bones/joints: Bony structures are mildly osteopenic. Degenerative changes are seen in the right knee. There is no acute fracture or dislocation. Soft tissues: Joint effusion is seen within the suprapatellar bursa. . Vasculature: Vascular calcification is noted within the distal SFA and popliteal artery. IMPRESSION: Joint effusion. DJD. No acute fracture identified. Dictated and Authenticated by: Marii Moore MD. Ordering:BRITNEY Lima MD
[2021-09-25 14:57] VITALS: BP 107/48; PULSE 61; TEMP 36.6; O2SAT 100
[2021-09-25 15:03] VITALS: BP 115/64; PULSE 61; O2SAT 100
== END 2021-09-25 16:09 | disposition home or self-care (01) ==
LOC: ER 15:31
PROVIDERS: Emergency Provider Physician Assistant; PCP Family Medicine
DX: S09.8XXA Other specified injuries of head, initial encounter (principal); M25.561 Pain in right knee; W01.0XXA Fall on same level from slipping, tripping and stumbling without subsequent striking against object, initial encounter; R51.9 Headache, unspecified
CPT/HCPCS: 99284; 70450; 73564; 99283

== ENCOUNTER 2021-09-26 08:35 | Inpatient (IN) | payer OTHER, MEDICAID, SELFPAY ==
--- NOTE | 2021-09-26 | DI.CT_ITS ---
Exam(s) CT LOWER EXTREMITY RT WO EXAM: CT LOWER EXTREMITY RT WO CLINICAL HISTORY: question of occult fx of the knee. TECHNIQUE: Imaging Protocol: Axial computed tomography images with coronal and sagittal reformatted images were created and reviewed. CONTRAST MATERIAL: Intravenous: Omnipaque 350 Contrast volume:structured data in ml Contrast route:I V - Oral: yes / no COMPARISON: CT LEFT LOWER EXTREM WO CONTRAST from 02/11/2017 FINDINGS: There is a joint effusion noted. No evidence of fracture. Moderate narrowing of the lateral compartment noted with marginal osteophyt es in this compartment also evident. There is marginal osteophyte off the outer aspect of the medial compartment but no prominent narrowing of the medial compartment is seen. Patellofemoral compartmen t exhibits mild degenerative changes. IMPRESSION: No fracture but there is a joint effusion which may denote a significant internal derangement. RADIATION DOSE DELIVERED: 254mGy.cm Total DLP DATA REPOSITORY: All CT scans at this facility are submitted to the National Radiology Data Registry (NRDR) Dose Index Registry (DIR) with the [employer] ([employer]). RADIATION OPTIMIZATION: All CT scans at this facility use at least one of these dose optimization te chniques: automated exposure control; mA and/or kV adjustment per patient size (includes targeted exa ms where dose is matched to clinical indication); or iterative reconstruction.
--- NOTE | 2021-09-26 08:48 | ED.GENADUL_ITS ---
Discharge Plan Disposition Patient Disposition: [facility] INPATIENT Condition: Stable Discharge Details Chief Complaint: Orthopedic Clinical Impression: Multiple falls, Acute knee pain, Acute UTI Admit Date/Time: 09/26/21 10:18 Admit Provider: Naveed Kaplan Attending Provider: Naveed Kaplan Primary Care Provider: Laisha Mcmahon ED Provider: Clarence Meek Medical Decision Making 70-year-old female with multiple comorbidities, presents to the ER status post another fall this morning after her knee gave out. Patient reports baseline chronic knee pain. Reports diffuse mild lower back discomfort that is not that bad. Patient states just fix my knee so I can go back home. I had a very candid conversation with the patient. I explained to her that I would not be able to solve the issue of her acute on chronic knee issue and that this will likely take orthopedics, rehab, etc. I am concerned because she has multiple falls, does not have extensive home resources, and sending her home like this will likely result in another fall and potential injury. She is at first adamant that she will not be admitted or go to a rehab facility. We discussed the fact that she was unable to control her bowels appropriately in the ambulance and needed multiple people to help care for her. After discussing her overall situation, she agrees that she is not safe to go home in her current condition, and is agreeable to admission and eventually placement to a rehab facility. Given this I will obtain routine laboratory values and a urinalysis. She did not strike her head today, I do not believe a CT of her head is warranted. I also do not believe that a repeat x-ray of her right knee is warranted as she had one yesterday. Her right knee was wrapped with an Rodriguez wrap yesterday, I do not believe that a long-leg immobilizer will sit around her leg Laboratory values reveal mild nonspecific leukocytosis, mild anemia which appears slightly worse than her baseline. Denies black tarry stools or bright red blood in her stools. Reveal a sodium of 141 potassium of 4.8 creatinine 2.8 with a GFR of 16.80, this too is near her baseline. Urinalysis reveals small leuk esterase with greater than 50 white cells Case discussed with our hospitalist team, Dr. Kaplan, and Tiana Grey. Recommend a single dose of fosfomycin for the UTI and I will place bridging orders for admission This documentation was generated using [employer] dictation system, please disregard any oddities of phrase or misspellings. Medical Records Medical records reviewed: Yes I reviewed the patient's medical records. Lab Data Lab results reviewed: Yes I reviewed the patient's lab results. Labs: 09/26/21 09:26 Urine - Reflex from Ua Urine Culture - Pending Laboratory Tests Range/Units 09/26/21 09/26/21 09/26/21 09:26 10:00 10:00 WBC (4.4-10.8) 10^3/uL 11.88 H RBC (3.93-5.22) 10^6/uL 3.90 L Hgb (11.2-15.7) g/dL 8.8 L Hct (36.0-46.0) % 33.1 L MCV (80-95) fL 84.9 MCH (27.0-33.0) pg 22.6 L MCHC (32.0-36.0) % 26.6 L RDW (11.7-14.6) % 17.7 H Plt Count (130-400) 10^3/uL 342 MPV (8.0-11.0) fL 9.5 Immature Gran % 0.3 Neutrophils % 76.0 Lymphocytes % 9.7 Monocytes % 7.5 Eosinophils % 5.8 Basophils % 0.7 Nucleated RBC % % 0 Absolute Neutrophils (1.2-6.7) 10^3/uL 9.03 H Absolute Lymphocytes (1.2-3.4) 10^3/uL 1.15 L Absolute Monocytes (0.1-0.8) 10^3/uL 0.89 H Absolute Eosinophils (0.0-0.7) 10^3/uL 0.69 Absolute Basophils (0.0-0.2) 10^3/uL 0.08 RBC Morphology See Below Hypochromasia 1+ Anisocytosis 2+ Microcytosis 2+ Macrocytosis 1+ Sodium (136-145) mmol/L 141 Potassium (3.5-5.1) mmol/L 4.8 Chloride (98-107) mmol/L 103 Carbon Dioxide (21.0-32.0) mmol/L 35.0 H Anion Gap (3-11) mmol/L 3.0 BUN (7-18) mg/dL 44 H Creatinine (0.55-1.02) mg/dL 2.8 H Estimated GFR/1.73 m2 (mL/min/1.73m2) 16.80 Glucose (74-106) mg/dL 135 H Calcium (8.5-10.1) mg/dL 9.1 Total Bilirubin (0.2-1.0) mg/dL 0.4 AST (15-37) U/L 9 L ALT (14-59) U/L 16 Alkaline Phosphatase (46-116) U/L 88 Total Protein (6.4-8.2) g/dL 7.5 Albumin (3.4-5.0) g/dL 3.3 L Lipase (73-393) U/L 48 Urine Color (Yellow) Yellow Urine Clarity (Clear) Sl Cloudy Urine pH (5-8) 6.0 Ur Specific [place] (1.005-1.025) 1.020 Urine Protein (Negative) mg/dL Negative Urine Ketones (Negative) mg/dL Negative Urine Blood (Negative) Negative Urine Nitrite (Negative) Negative Urine Bilirubin (Negative) Negative Urine Urobilinogen (Up TO 0.2) EU/dL 0.2 Ur Leukocyte Esterase (Negative) Small H Urine RBC (0-2) HPF Negative Urine WBC (0-5) HPF >50 H Ur Epithelial Cells (Negative) HPF Few Urine Crystals (Negative) HPF Negative Urine Bacteria (Negative) HPF Moderate Urine Casts (Negative) LPF Negative Urine Mucus (Negative) Trace Ur Culture Indicated? Yes Urine Glucose (Negative) mg/dL Negative COVID-19 Source SARS-CoV-2 (PCR) (Negative) Range/Units 09/26/21 10:00 WBC (4.4-10.8) 10^3/uL RBC (3.93-5.22) 10^6/uL Hgb (11.2-15.7) g/dL Hct (36.0-46.0) % MCV (80-95) fL MCH (27.0-33.0) pg MCHC (32.0-36.0) % RDW (11.7-14.6) % Plt Count (130-400) 10^3/uL MPV (8.0-11.0) fL Immature Gran % Neutrophils % Lymphocytes % Monocytes % Eosinophils % Basophils % Nucleated RBC % % Absolute Neutrophils (1.2-6.7) 10^3/uL Absolute Lymphocytes (1.2-3.4) 10^3/uL Absolute Monocytes (0.1-0.8) 10^3/uL Absolute Eosinophils (0.0-0.7) 10^3/uL Absolute Basophils (0.0-0.2) 10^3/uL RBC Morphology Hypochromasia Anisocytosis Microcytosis Macrocytosis Sodium (136-145) mmol/L Potassium (3.5-5.1) mmol/L Chloride (98-107) mmol/L Carbon Dioxide (21.0-32.0) mmol/L Anion Gap (3-11) mmol/L BUN (7-18) mg/dL Creatinine (0.55-1.02) mg/dL Estimated GFR/1.73 m2 (mL/min/1.73m2) Glucose (74-106) mg/dL Calcium (8.5-10.1) mg/dL Total Bilirubin (0.2-1.0) mg/dL AST (15-37) U/L ALT (14-59) U/L Alkaline Phosphatase (46-116) U/L Total Protein (6.4-8.2) g/dL Albumin (3.4-5.0) g/dL Lipase (73-393) U/L Urine Color (Yellow) Urine Clarity (Clear) Urine pH (5-8) Ur Specific [place] (1.005-1.025) Urine Protein (Negative) mg/dL Urine Ketones (Negative) mg/dL Urine Blood (Negative) Urine Nitrite (Negative) Urine Bilirubin (Negative) Urine Urobilinogen (Up TO 0.2) EU/dL Ur Leukocyte Esterase (Negative) Urine RBC (0-2) HPF Urine WBC (0-5) HPF Ur Epithelial Cells (Negative) HPF Urine Crystals (Negative) HPF Urine Bacteria (Negative) HPF Urine Casts (Negative) LPF Urine Mucus (Negative) Ur Culture Indicated? Urine Glucose (Negative) mg/dL COVID-19 Source Nasal/Nares SARS-CoV-2 (PCR) (Negative) Negative HPI General Mode of arrival: EMS . Date/Time Provider Initiated Documentation: 09/26/21 08:42 . Limitations to Documentation: no limitations . Information obtained by: patient and EMS . HPI Narrative: This is a 70-year-old female, DNR, DNI, history of CHF, O2 dependent, diabetes, seizures, CAD, CKD, proximal A. fib, pulmonary hypertension, presenting to the ER via EMS for evaluation of a second fall for the past 24 hours. Patient was seen in the ER by me yesterday after a mechanical fall over her O2 tubing injuring her head and knee. CT imaging of brain was unremarkable, x-ray of knee revealed a joint effusion. Patient was offered admission and subsequent placement at a rehab facility which she adamantly declined. Patient was able to ambulate slowly but steadily using a walker here in the ER and requested discharge home. Patient states that this morning her right knee gave out on her causing her to fall down. She reports baseline knee pain, mild diffuse low back pain, but denies any other injury. She did not strike her head today. Denies any symptoms prior to the fall. Denies any chest pain, shortness of breath, abdominal pain, nausea, vomiting, change in bowel or bladder function, fever, headache. She states that she is vaccinated for COVID. EMS was called and transported patient to the ER, she was unable to manage her bowels in the ambulance and subsequently had a large bout of diarrhea. Related Data Home Medications Medication Instructions Recorded Confirmed lancets 33 gauge #100 each 12/18/18 09/26/21 polyethylene glycol 3350 [Miralax] 1 g PO PRN PRN 01/15/19 09/26/21 acetaminophen [Tylenol Extra 1,000 mg PO Q8H PRN PRN #0 tab 01/22/19 09/26/21 Strength] lancets 25 gauge #100 each 01/29/19 09/26/21 B-complex with vitamin C 1 tab PO DAILY 09/19/19 09/26/21 calcium [id number] vitaliy 2 cap PO DAILY 03/11/20 09/26/21 aspirin 81 mg PO DAILY #0 tab 06/01/20 09/26/21 albuterol sulfate 2.5 mg INHALATION Q2H PRN PRN #180 09/10/20 09/26/21 ml magnesium hydroxide 400 mg/5 mL 30 ml PO DAILY PRN #3000 ml 09/10/20 09/26/21 oral suspension [id number]-hywzipz 1 cap PO TID #270 cap 01/21/21 01/16/22 6,000-19,000-30,000 unit capsule,delayed rel magnesium chloride 71.5 mg 71.5 mg PO BID #180 tab 10/19/20 09/26/21 (magnesium chloride) tablet,delayed release estradiol 1 gm VG .COMPLEX gm 12/03/20 09/26/21 meclizine 12.5 mg tablet 12.5 mg PO TID PRN #60 tab 12/07/20 09/26/21 pen needle, diabetic 31 gauge x #450 each 12/10/20 09/26/2109/14 budesonide-formoterol HFA 160 2 puff INHALATION BID 01/07/21 09/26/21 mcg-4.5 mcg/actuation aerosol inhaler insulin aspart U-100 100 unit/mL 15 unit SC TID #30 ml 01/07/21 09/26/21 (3 mL) subcutaneous pen insulin glargine 100 unit/mL (3 35 unit SC BID #90 ml 01/07/21 09/26/21 mL) subcutaneous pen sitagliptin 25 mg tablet 25 mg PO DAILY #90 tab 01/07/21 09/26/21 umeclidinium 62.5 mcg/actuation 1 inh INHALATION DAILY #30 ea 01/07/21 09/26/21 blister powder for inhalation epinephrine 0.3 mg/0.3 mL 0.3 mg IM ONCE #2 ea 02/04/21 09/26/21 injection, auto-injector metoprolol succinate 100 mg 100 mg PO DAILY #90 tab 02/18/21 09/26/21 tablet,extended release 24 hr omeprazole 40 mg capsule,delayed 40 mg PO BID #180 cap 02/18/21 09/26/21 release levetiracetam 500 mg tablet 500 mg PO BID #180 tab 02/22/21 09/26/21 torsemide 100 mg tablet 100 mg PO DAILY #90 tab 03/19/21 09/26/21 blood sugar diagnostic #300 each 04/08/21 09/26/21 ergocalciferol (vitamin D2) 1,250 50,000 unit PO M-W-F #36 tab-cap 04/08/21 09/26/21 mcg (50,000 unit) capsule potassium chloride 20 mEq 40 meq PO BID #180 tab 04/21/21 09/26/21 tablet,extended release malathion 0.5 % lotion 1 applic TOPICAL QWEEK #59 ml 04/26/21 09/26/21 allopurinol 100 mg tablet 100 mg PO DAILY #90 tab-cap 05/27/21 09/26/21 levetiracetam 500 mg tablet 500 mg PO BID 05/28/21 09/26/21 metolazone 5 mg tablet 5 mg PO .4 times week PRN tab 05/28/21 09/26/21 gabapentin 100 mg capsule 100 mg PO TID #270 cap 06/07/21 09/26/21 fluconazole 150 mg tablet 150 mg PO Q3D #2 tab 07/20/21 09/26/21 triamcinolone acetonide 0.1 % 1 applic TOPICAL BID #80 g 07/20/21 09/26/21 topical cream atorvastatin 40 mg tablet 40 mg PO DAILY #90 tab-cap 08/03/21 09/26/21 duloxetine 60 mg capsule,delayed 60 mg PO DAILY #90 tab-cap 08/03/21 09/26/21 release isosorbide mononitrate 10 mg tablet 10 mg PO BID #180 tab 08/03/21 09/26/21 ropinirole 2 mg tablet 2 mg PO QPM PRN #90 tab 08/03/21 09/26/21 mupirocin 2 % topical ointment 1 applic TOPICAL BID #22 g 08/24/21 09/26/21 Previous Rx's Medication Instructions Recorded lancets 33 gauge #100 each 12/18/18 acetaminophen [Tylenol Extra 1,000 mg PO Q8H PRN PRN #0 tab 01/22/19 Strength] lancets 25 gauge #100 each 01/29/19 aspirin 81 mg PO DAILY #0 tab 06/01/20 albuterol sulfate 2.5 mg INHALATION Q2H PRN PRN #180 09/10/20 ml magnesium hydroxide 400 mg/5 mL 30 ml PO DAILY PRN #3000 ml 09/10/20 oral suspension [id number]-[id number]-qvgvrfu 1 cap PO TID #270 cap 10/01/20 6,000-19,000-30,000 unit capsule,delayed rel magnesium chloride 71.5 mg 71.5 mg PO BID #180 tab 10/19/20 (magnesium chloride) tablet,delayed release meclizine 12.5 mg tablet 12.5 mg PO TID PRN #60 tab 12/07/20 pen needle, diabetic 31 gauge x #450 each 12/10/20 1/4 insulin aspart U-100 100 unit/mL 15 unit SC TID #30 ml 01/07/21 (3 mL) subcutaneous pen insulin glargine 100 unit/mL (3 35 unit SC BID #90 ml 01/07/21 mL) subcutaneous pen sitagliptin 25 mg tablet 25 mg PO DAILY #90 tab 01/07/21 umeclidinium 62.5 mcg/actuation 1 inh INHALATION DAILY #30 ea 01/07/21 blister powder for inhalation epinephrine 0.3 mg/0.3 mL 0.3 mg IM ONCE #2 ea 02/04/21 injection, auto-injector metoprolol succinate 100 mg 100 mg PO DAILY #90 tab 02/18/21 tablet,extended release 24 hr omeprazole 40 mg capsule,delayed 40 mg PO BID #180 cap 02/18/21 release levetiracetam 500 mg tablet 500 mg PO BID #180 tab 02/22/21 torsemide 100 mg tablet 100 mg PO DAILY #90 tab 03/19/21 blood sugar diagnostic #300 each 04/08/21 ergocalciferol (vitamin D2) 1,250 50,000 unit PO M-W-F #36 tab-cap 04/08/21 mcg (50,000 unit) capsule potassium chloride 20 mEq 40 meq PO BID #180 tab 04/21/21 tablet,extended release malathion 0.5 % lotion 1 applic TOPICAL QWEEK #59 ml 04/26/21 allopurinol 100 mg tablet 100 mg PO DAILY #90 tab-cap 05/27/21 gabapentin 100 mg capsule 100 mg PO TID #270 cap 06/07/21 fluconazole 150 mg tablet 150 mg PO Q3D #2 tab 07/20/21 triamcinolone acetonide 0.1 % 1 applic TOPICAL BID #80 g 07/20/21 topical cream atorvastatin 40 mg tablet 40 mg PO DAILY #90 tab-cap 08/03/21 duloxetine 60 mg capsule,delayed 60 mg PO DAILY #90 tab-cap 08/03/21 release isosorbide mononitrate 10 mg tablet 10 mg PO BID #180 tab 08/03/21 ropinirole 2 mg tablet 2 mg PO QPM PRN #90 tab 08/03/21 mupirocin 2 % topical ointment 1 applic TOPICAL BID #22 g 08/24/21 Allergies Allergy/AdvReac Type Severity Reaction Status Date / Time oxycodone Allergy Severe Psychosis Verified 09/26/21 09:03 venom-honey bee Allergy Severe ANAPHYLAXIS Verified 09/26/21 09:03 adhesive Allergy BLISTERS Verified 09/26/21 09:03 General STEPHANIE: 2 Review of Systems Constitutional Constitutional: Denies fever(s), Denies headache(s) and Denies weakness Eyes Eyes: Denies change in vision ENT Ears, Nose, Mouth, and Throat: Denies headache(s) and Reports neck pain (Chronic) Cardiovascular Cardiovascular: Denies chest pain and Reports dyspnea (Chronic) Respiratory Respiratory: Denies cough Gastrointestinal Gastrointestinal: Denies abdominal pain, Denies nausea and Denies vomiting Genitourinary Genitourinary: Denies dysuria Musculoskeletal Musculoskeletal: Reports back pain Integumentary/Breasts Skin/Breast: Denies rash Neurologic Neurologic: Denies headache(s) and Denies weakness Hematologic/Lymphatic Hematologic/Lymphatic: Denies easy bleeding and Denies easy bruising PFSH All Active Problems (Updated 09/26/21 @ 13:54 by SOLEDAD Pearson) Multiple falls (Acute) Acute knee pain (Acute) Acute UTI (Acute) Wound abscess (Acute) Knee pain, acute (Acute) Fall (Acute) CHF (congestive heart failure) (Chronic) SOB (shortness of breath) (Acute) Knee pain (Acute) Hypokalemia (Acute) Double vision (Acute) Closed head injury (Acute) Vertigo (Acute) Chest pain (Acute) Hx of CABG (Chronic) Discharge planning issues (Acute) IDDM (insulin dependent diabetes mellitus) (Chronic) DVT prophylaxis (Acute) Atypical chest pain (Acute) Myoclonic epileptic seizures (Acute) Seizure (Acute) Greater trochanteric bursitis of left hip (Acute) Left hip pain (Acute) Heart failure with preserved ejection fraction, borderline, class III (Chronic) Congestive heart failure (Chronic) Pancreatic atrophy (Acute) DVT (deep venous thrombosis) (Chronic) NSTEMI (non-ST elevated myocardial infarction) (Acute) 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) CAD (coronary artery disease), [place] coronary artery (Chronic) Fafvm-wn-cvqazxi kidney injury (Acute) SOB (shortness of breath) (Acute) CHF (congestive heart failure) (Chronic) DNR no code (do not resuscitate) (Acute) Thumb pain (Acute) At risk for diabetic foot ulcer (Acute) Leukocytosis (Acute) Acute on chronic diastolic (congestive) heart failure (Acute) Vaginal atrophy (Acute) PAF (paroxysmal atrial fibrillation) (Chronic) Hypoxia (Acute) Pulmonary hypertension (Chronic) Anemia (Chronic) CKD (chronic kidney disease) stage 3, GFR 30-59 ml/min (Chronic) Cr about 2.5 S/P CABG (coronary artery bypass graft) (Chronic 01/03/19) 4 vessel CABG and LA appendage excision, Dr. Nav Wang, [facility] [place], [place], [place] Hip pain, left (Chronic) Hip pain, right (Chronic) Diabetes mellitus (Chronic) Hyperlipidemia (Chronic 08/10/00) Gout (Chronic 07/06/11) Spinal stenosis of lumbar region (Chronic 02/15/16) Hammer toe (Chronic) Left/right Chronic obstructive lung disease (Chronic) BMI 40.0-44.9, adult (Chronic 12/02/14) Annual physical exam (Chronic 12/14/15) Numbness and tingling in left upper extremity (Chronic) Atrial fibrillation (Chronic) paroxysmal, onset 2015, anticoagulated w/ Xarelto; anticoagulation discontinued after left atrial appendage excision 01/03/2019 Restless leg syndrome (Chronic) Essential hypertension (Chronic) Macrocytic anemia (Chronic) Medical History (Updated 09/26/21 @ 13:54 by SOLEDAD Pearson) Abnormal mammography 08/10/06 Acute kidney injury superimposed on chronic kidney disease Altered mental status Ankle pain (03/13/14) Atrial fibrillation Atrial flutter Carpal tunnel syndrome Carpal tunnel syndrome (08/10/06) BILATERAL R S/P SURGERY Cervical disc disorder with myelopathy (08/21/08) S/P surgery x 2 Cervical spondylosis with myelopathy Chest pain Neg Stress test Constipation Dehydration Diabetes mellitus 09/20/10 Positive Microalbumin Diastolic CHF Dysuria Folate deficiency (02/15/16) Gout Gram-positive bacteremia HAP (hospital-acquired pneumonia) (01/15/19) HCAP (healthcare-associated pneumonia) Hepatomegaly 06/10/04 Hip joint inflamed (09/03/15) Hyperglycemia Hypertension Hypomagnesemia Hypoxia Low back pain (04/10/03) DISC HERNIATION L4. MULTILEVEL DJD/SPINAL STENOSIS BY MRI; S/P surgery Lump in neck Menopausal syndrome 07/11/03 Muscle fatigue 03/04/13 Posterior tibial tendon dysfunction 02/03/16 Postmenopausal bleeding neg. endometrial biopsy Postoperative wound dehiscence (12/23/15) Prerenal azotemia Primary osteoarthritis of left hip (09/17/15) Renal impairment (07/11/03) ADRENAL MASS. F/U W/ KINLAW positive microalbumin Rotator cuff syndrome (08/01/09) Shingles Smoker (06/30/16) 01/17/17 1-2 cig/wk Spinal stenosis of lumbar region at multiple levels Tarsal tunnel syndrome 06/11/13 Trochanteric bursitis 03/18/13 Upper respiratory tract infection (08/03/15) UTI (urinary tract infection) UTI (urinary tract infection) Vitamin D deficiency Vitamin D deficiency Weakness Surgical History Arthrodesis right 2nd toe Cataract (01/07/14) FOLLOWED BY [employer] cervical repair (~10/2008) C6-C7 DISK; RECURRENT SURGERY Cholecystectomy (07/31/13) Endometrial Biopsy NEG H/O arthrodesis right second toe H/O Spinal surgery multiple spine surgeries; low back x 2; She had multilevel DJD and spinal stenosis; disc herniation. 2008-cervical repair; C6-C7 disc; recurrent surgery. History of bilateral tubal ligation 09/11/80 History of gynecologic surgery endometrial biopsy-neg History of hip surgery 11/10/15 left hip arthroplasty 12/04/15-placement of wound VAC to left hip History of orthopedic surgery 09/11/97 tarsal tunnel release Left eye surgery 12/31/17 Ligation of fallopian tube (~1980) Open Carpal Tunnel release Right wrist surgery 10/26/17 Rotator Cuff Repair (~1980) S/P carpal tunnel release S/P cholecystectomy 09/11/12 S/P rotator cuff repair 09/11/80 SPINE SURGERY Multiple spine surgeries, low back x 2. She had multilevel DJD and spinal stenosis, disc herniation Status post incision and drainage 12/04/15 left hip surgical wound dehiscence and infection tarsal tunnel release (~1997) Total replacement of hip [facility]; LEFT HIP Family History Mother Diabetes Essential hypertension Personal history of malignant neoplasm KIDNEY/LIVER/BRAIN Heart disease Hyperlipidemia Stroke Asthma Father Diabetes Essential hypertension Personal history of malignant neoplasm BONE Heart disease Asthma Sister Diabetes Essential hypertension Depression Heart disease Asthma Grandfather No problems noted. Grandfather No problems noted. Grandmother Personal history of malignant neoplasm UTERINE Grandmother Diabetes Aunt Personal history of malignant neoplasm BREAST Brother Hyperlipidemia Stroke Sister Asthma Son Asthma Daughter Depression Asthma Daughter Asthma Daughter Depression Neoplasm Asthma Brother No problems noted. 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: [employer] Pets and animals: Yes Pets and animals: cat(s), dog(s) and horse(s) What is your relationship status?: Panel score (0-1 are the most socially isolated patients): 0 What type of physical activity do you participate in: none, walking and additional Details: would like to start now that it's warm Duration: 15-30 minutes/day Saniya/L[employer]-Day: [employer] Special saniya needs: No Seatbelt use: always Do you feel safe at home: Yes Do you feel safe in your relationship?: Yes Additional Social history: recently moved out and is now living with a friend Exam Const General: cooperative, comfortable and no acute distress Orientation: alert, awake and oriented x3 HENCO Head: normal to inspection, normocephalic and atraumatic Face and sinus: normal facial exam Mouth: moist mucous membranes Eyes General: appearance normal, both eyes and all related structures Conjunctivae: conjunctivae normal Neck Neck: normal visual inspection, full ROM, trachea midline, supple and nontender Resp Effort & Inspection: normal respiratory effort and able to speak in complete sentences Auscultation: diminished lung sounds bilaterally in the lower lung chan Cardio Rate: regular rate Rhythm: regular rhythm GI Inspection: obesity Palpation: soft and nontender Back/Spine/Pelvis Back: no CVA tenderness and No back tenderness Skin General skin exam: no rashes or lesions noted Neuro General: patient alert, patient awake, patient oriented x3, moves all extremities and no focal motor deficits Cognition: normal cognition Speech: speech normal Motor: muscle tone normal throughout Sensory Exam: no sensory deficits noted Extrem General: capillary refill normal Other: Right lower extremity, hip and ankle are unremarkable. The examination is difficult given her body habitus. She has diffuse discomfort across her entire anterior and medial knee. Discomfort increases with varus and valgus stress as well as anterior draw but there is no laxity. There is a area of ecchymosis to the lateral knee. Neuro, vascular, tendon intact. Psych Appearance: grossly normal Mental Status: mental status grossly normal
[2021-09-26 08:59] VITALS: BP 109/49; PULSE 59; RESP 16; TEMP 36.2; O2SAT 100
[2021-09-26 09:33] LABS: Bilirubin Negative (Negative); Blood Negative (Negative); Clarity Sl Cloudy (Clear); Glucose Negative (Negative); Ketones Negative (Negative); Leukocyte Esterase Small (Negative); Nitrite Negative (Negative); Urobilinogen 0.2 EU/dL (Up TO 0.2)
[2021-09-26 09:39] LABS: Bacteria Moderate HPF (Negative); C & S Indicated? Yes; Casts Negative LPF (Negative); Crystals Negative HPF (Negative); Epithelial Cells Few HPF (Negative); Mucus Trace (Negative); RBC Negative HPF (0-2); WBC >50 HPF (0-5)
[2021-09-26 10:07] LABS: Source Nasal/Nares
[2021-09-26 10:08] LABS: Abs Immature Grans 0.04 10^3/uL (0.0-0.06); Absolute Basophil Count 0.08 10^3/uL (0.0-0.2); Absolute Eosinophil Count 0.69 10^3/uL (0.0-0.7); Absolute Lymphocyte Count 1.15 10^3/uL (1.2-3.4); Absolute Monocyte Count 0.89 10^3/uL (0.1-0.8); Absolute Neutrophil Count 9.03 10^3/uL (1.2-6.7); Basophils % 0.7; Eosinophils % 5.8; HCT 33.1 % (36.0-46.0); HGB 8.8 g/dL (11.2-15.7); Immature Grans % 0.3; Lymphocytes % 9.7; MCH 22.6 pg (27.0-33.0); MCHC 26.6 % (32.0-36.0); MCV 84.9 fL (80-95); MPV 9.5 fL (8.0-11.0); Monocytes % 7.5; Nucleated RBC 0 %; Platelet Count 342 10^3/uL (130-400); RDW 17.7 % (11.7-14.6); RDW-SD 55.1 fL; WBC 11.88 10^3/uL (4.4-10.8)
[2021-09-26 10:15] LABS: Anisocytosis 2+; Diff Comment Agrees w/ Instrument
[2021-09-26 10:16] LABS: Hypochromasia 1+; Macrocytosis 1+; Microcytosis 2+
[2021-09-26 10:36] LABS: ALT 16 U/L (14-59); AST 9 U/L (15-37); Albumin 3.3 g/dL (3.4-5.0); Alkaline Phosphatase 88 U/L (46-116); BUN 44 mg/dL (7-18); Bilirubin, Total 0.4 mg/dL (0.2-1.0); CREATININE 2.8 mg/dL (0.55-1.02); Calcium 9.1 mg/dL (8.5-10.1); Chloride 103 mmol/L (98-107); Glucose 135 mg/dL (74-106); Lipase 48 U/L (73-393); Potassium 4.8 mmol/L (3.5-5.1); Sodium 141 mmol/L (136-145); Total Protein 7.5 g/dL (6.4-8.2)
[2021-09-26 10:49] LABS: COVID-19 PCR Negative (Negative)
[2021-09-26] MEDS: Fosfomycin Tromethamine 3 GM PACKET PO (11:08)
[2021-09-26 11:20] VITALS: BP 107/69; PULSE 62; RESP 19; TEMP 36.2; O2SAT 98
[2021-09-26] MEDS: Acetaminophen 325 MG TAB PO ×2 (12:41→20:07)
--- NOTE | 2021-09-26 14:08 | W.PM.HP.N ---
Date of service: 09/26/21 Time of Service: 13:30 Assessment and Plan Assessment and plan (1) Acute knee pain: Start date: 09/26/21 Start time: 13:30 Status: Acute Assessment and plan: Fell after being wound up in oxygen tubing. Seen three time in ED. Xray from 14 read by our radiologist revealed there is a joint effusion which may signify a subtle occult fracture or other internal derangement. Stat CT ordered. nucynta for pain with voltaren gel Patient has severe swelling, buckling when trying to ambulate, unable to completely straighten leg or bend leg back. Pain with PROM. ICE to Leg Ortho consult. PT consult She will likely need leg brace for when out of bed will order after CT results Qualifiers: Laterality: right Qualified Code(s): M25.561 - Pain in right knee (2) Multiple falls: Start date: 09/26/21 Start time: 13:30 Status: Acute Assessment and plan: as above (3) Acute UTI: Start date: 09/26/21 Start time: 13:30 Status: Acute Assessment and plan: with small leuk est. Urine cx sent. Given dose fosfamycin in ED (4) CHF (congestive heart failure): Start date: 09/26/21 Start time: 13:30 Status: Chronic Assessment and plan: Diastolic requiring oxygen, in addition to COPD. Not exacerbated at this time continue diuretics. Qualifiers: Heart failure type: diastolic Heart failure chronicity: chronic Qualified Code(s): I50.32 - Chronic diastolic (congestive) heart failure (5) Pulmonary hypertension: Start date: 09/26/21 Start time: 13:30 Status: Chronic Assessment and plan: mild to moderate requires oxygen. RVSP was 45-50 (6) Leukocytosis: Start date: 09/26/21 Start time: 13:30 Status: Chronic Assessment and plan: Chronic on inhaled steroids, Qualifiers: Leukocytosis type: unspecified Qualified Code(s): D72.829 - Elevated white blood cell count, unspecified (7) CKD (chronic kidney disease) stage 3, GFR 30-59 ml/min: Start date: 09/26/21 Start time: 13:30 Status: Chronic Assessment and plan: baseline, monitor Qualifiers: Chronic kidney disease stage 3 subtype: unspecified whether 3a or 3b Qualified Code(s): N18.30 - Chronic kidney disease, stage 3 unspecified (8) Chronic obstructive lung disease: Start date: 09/26/21 Start time: 13:30 Status: Chronic Assessment and plan: not exacerbated at this time. Continue home medications and inhaler Qualifiers: COPD type: COPD with acute lower respiratory infection Qualified Code(s): J44.0 - Chronic obstructive pulmonary disease with acute lower respiratory infection (9) IDDM (insulin dependent diabetes mellitus): Start date: 09/26/21 Start time: 13:30 Status: Chronic Assessment and plan: A1C down to 6.8 fingersticks AC and HS. With insulin at mealtimes and monitor glucose levels (10) Seizure: Start date: 09/26/21 Start time: 13:30 Status: Chronic Assessment and plan: on keppra (11) DVT prophylaxis: Start date: 09/26/21 Start time: 15:17 Status: Acute Assessment and plan: enoxaparin (12) Discharge planning issues: Start date: 09/26/21 Start time: 13:30 Status: Acute Assessment and plan: PT evaluation snif vs SB discussed with Dr. Kaplan History of Present Illness History of Present Illness Chief Complaint: Weakness, loose stool Narrative: 70 y.o female, with PMH extensive cardiac history, IDDM, Oxygen dependent, Seizures, presents for the third time to [facility] after falling for bilateral knee weakness right more than left. She fell on the th after getting caught in her oxygen tubing with LOC and was seen CT was negative, sent home and told to apply heat, which was not helpful, she fell again on the 16 and was seen and sent home and presents again after trying to get up stairs today when right leg gave out and she had diarrhea. She is scheduled to see Dr. Alavrez on 10/15. Xray of the knee on 09/24 reveals there is a joint effusion which may signify a subtle occult fracture or other internal derangement. Labs from today reveal WBC of 11. BUN and creatinine elevated but at baseline. Patient asked to be admitted for further management. She is admitted to m/s obs. Stat CT based on xray. Ice to knee, nucynta and voltaren gel for pain. Ortho consult. PT consult. Review of Systems All systems reviewed & are unremarkable except as noted in HPI and below PFSH All Active Problems (Updated 09/26/21 @ 15:16 by Tiana Grey NP) Discharge planning issues (Acute) Multiple falls (Acute) Acute knee pain (Acute) Acute UTI (Acute) Wound abscess (Acute) CHF (congestive heart failure) (Chronic) Discharge planning issues (Acute) IDDM (insulin dependent diabetes mellitus) (Chronic) DVT prophylaxis (Acute) Seizure (Chronic) Leukocytosis (Chronic) Pulmonary hypertension (Chronic) CKD (chronic kidney disease) stage 3, GFR 30-59 ml/min (Chronic) Cr about 2.5 Chronic obstructive lung disease (Chronic) Medical History (Updated 09/26/21 @ 15:16 by Tiana Grey NP) Abnormal mammography 08/10/06 Acute kidney injury superimposed on chronic kidney disease [id number] kidney injury Altered mental status Anemia Ankle pain (03/13/14) Annual physical exam (12/14/15) Atrial fibrillation Atrial flutter BMI 40.0-44.9, adult (12/02/14) CAD (coronary artery disease), [place] coronary artery Carpal tunnel syndrome Carpal tunnel syndrome (08/10/06) BILATERAL R S/P SURGERY Cervical disc disorder with myelopathy (08/21/08) S/P surgery x 2 Cervical spondylosis with myelopathy Chest pain Neg Stress test CKD stage 4 due to type 2 diabetes mellitus Congestive heart failure Constipation Dehydration Diabetes mellitus 09/20/10 Positive Microalbumin Diastolic CHF DNR no code (do not resuscitate) DVT (deep venous thrombosis) Dysuria Essential hypertension Folate deficiency (02/15/16) Gout Gout (07/06/11) Gram-positive bacteremia Greater trochanteric bursitis of left hip Hammer toe Left/right HAP (hospital-acquired pneumonia) (01/15/19) HCAP (healthcare-associated pneumonia) Heart failure with preserved ejection fraction, borderline, class III Hepatomegaly 06/10/04 Hip joint inflamed (09/03/15) Hip pain, left Hip pain, right Hyperglycemia Hyperlipidemia (08/10/00) Hypertension Hypomagnesemia Hypoxia Left hip pain Low back pain (04/10/03) DISC HERNIATION L4. MULTILEVEL DJD/SPINAL STENOSIS BY MRI; S/P surgery Lump in neck Macrocytic anemia Menopausal syndrome 07/11/03 Muscle fatigue 03/04/13 Myoclonic epileptic seizures Numbness and tingling in left upper extremity Pancreatic atrophy Posterior tibial tendon dysfunction 02/03/16 Postmenopausal bleeding neg. endometrial biopsy Postoperative wound dehiscence (12/23/15) Prerenal azotemia Primary osteoarthritis of left hip (09/17/15) Renal impairment (07/11/03) ADRENAL MASS. F/U W/ [place]LA[place] positive microalbumin Restless leg syndrome Rotator cuff syndrome (08/01/09) Shingles Smoker (06/30/16) 01/17/17 1-2 cig/wk SOB (shortness of breath) Spinal stenosis of lumbar region (02/15/16) Spinal stenosis of lumbar region at multiple levels Tarsal tunnel syndrome 06/11/13 Tarsal tunnel syndrome (06/11/13) Trochanteric bursitis 03/18/13 Upper respiratory tract infection (08/03/15) UTI (urinary tract infection) Vaginal atrophy Vitamin D deficiency Vitamin D deficiency Weakness Surgical History (Updated 09/26/21 @ 15:05 by Tiana Grey NP) Arthrodesis right 2nd toe Cataract (01/07/14) FOLLOWED BY [employer] cervical repair (~10/2008) C6-C7 DISK; RECURRENT SURGERY Cholecystectomy (07/31/13) Endometrial Biopsy NEG H/O arthrodesis right second toe H/O Spinal surgery multiple spine surgeries; low back x 2; She had multilevel DJD and spinal stenosis; disc herniation. 2008-cervical repair; C6-C7 disc; recurrent surgery. History of bilateral tubal ligation 09/11/80 History of gynecologic surgery endometrial biopsy-neg History of hip surgery 11/10/15 left hip arthroplasty 12/04/15-placement of wound VAC to left hip History of orthopedic surgery 09/11/97 tarsal tunnel release Left eye surgery 12/31/17 Ligation of fallopian tube (~1980) Open Carpal Tunnel release Right wrist surgery 10/26/17 Rotator Cuff Repair (~1980) S/P CABG (coronary artery bypass graft) (01/03/19) 4 vessel CABG and LA appendage excision, Dr. Nav Wang, [facility] – [place], [place], [place] S/P carpal tunnel release S/P cholecystectomy 09/11/12 S/P rotator cuff repair 09/11/80 SPINE SURGERY Multiple spine surgeries, low back x 2. She had multilevel DJD and spinal stenosis, disc herniation Status post incision and drainage 12/04/15 left hip surgical wound dehiscence and infection tarsal tunnel release (~1997) Total replacement of hip [facility]; LEFT HIP Family History Mother Diabetes Essential hypertension Personal history of malignant neoplasm KIDNEY/LIVER/BRAIN Heart disease Hyperlipidemia Stroke Asthma Father Diabetes Essential hypertension Personal history of malignant neoplasm BONE Heart disease Asthma Sister Diabetes Essential hypertension Depression Heart disease Asthma Grandfather No problems noted. Grandfather No problems noted. Grandmother Personal history of malignant neoplasm UTERINE Grandmother Diabetes Aunt Personal history of malignant neoplasm BREAST Brother Hyperlipidemia Stroke Sister Asthma Son Asthma Daughter Depression Asthma Daughter Asthma Daughter Depression Neoplasm Asthma Brother No problems noted. 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 Pets and animals: Yes Pets and animals: cat(s), dog(s) and horse(s) What is your relationship status?: Panel score (0-1 are the most socially isolated patients): 0 What type of physical activity do you participate in: none, walking and additional Details: would like to start now that it's warm Duration: 15-30 minutes/day Saniya/Rastafarian: Caodaism Special saniya needs: No Seatbelt use: always Do you feel safe at home: Yes Do you feel safe in your relationship?: Yes Additional Social history: recently moved out and is now living with a friend Meds Allergies and Home Medications Allergies Allergy/AdvReac Type Severity Reaction Status Date / Time oxycodone Allergy Severe Psychosis Verified 09/26/21 09:03 venom-honey bee Allergy Severe ANAPHYLAXIS Verified 09/26/21 09:03 adhesive Allergy BLISTERS Verified 09/26/21 09:03 Home Medications Medication Instructions Recorded Confirmed Type lancets 33 gauge #100 each 12/18/18 09/26/21 Rx polyethylene glycol 3350 [Miralax] 1 g PO PRN PRN 01/15/19 09/26/21 History acetaminophen [Tylenol Extra 1,000 mg PO Q8H PRN PRN #0 tab 01/22/19 09/26/21 Rx Strength] lancets 25 gauge #100 each 01/29/19 09/26/21 Rx B-complex with vitamin C 1 tab PO DAILY 09/19/19 09/26/21 History calcium [id number] vitaliy 2 cap PO DAILY 03/11/20 09/26/21 History aspirin 81 mg PO DAILY #0 tab 06/01/20 09/26/21 Rx albuterol sulfate 2.5 mg INHALATION Q2H PRN PRN #180 09/10/20 09/26/21 Rx ml magnesium hydroxide 400 mg/5 mL 30 ml PO DAILY PRN #3000 ml 09/10/20 09/26/21 Rx oral suspension [id number]-[id number] 1 cap PO TID #270 cap 10/01/20 09/26/21 Rx 6,000-19,000-30,000 unit capsule,delayed rel magnesium chloride 71.5 mg 71.5 mg PO BID #180 tab 10/19/20 09/26/21 Rx (magnesium chloride) tablet,delayed release estradiol 1 gm VG .COMPLEX gm 12/03/20 09/26/21 History meclizine 12.5 mg tablet 12.5 mg PO TID PRN #60 tab 12/07/20 09/26/21 Rx pen needle, diabetic 31 gauge x #450 each 12/10/20 09/26/21 Rx 1/4 budesonide-formoterol HFA 160 2 puff INHALATION BID 01/07/21 09/26/21 History mcg-4.5 mcg/actuation aerosol inhaler insulin aspart U-100 100 unit/mL 15 unit SC TID #30 ml 01/07/21 09/26/21 Rx (3 mL) subcutaneous pen insulin glargine 100 unit/mL (3 35 unit SC BID #90 ml 01/07/21 09/26/21 Rx mL) subcutaneous pen sitagliptin 25 mg tablet 25 mg PO DAILY #90 tab 01/07/21 09/26/21 Rx umeclidinium 62.5 mcg/actuation 1 inh INHALATION DAILY #30 ea 01/07/21 09/26/21 Rx blister powder for inhalation epinephrine 0.3 mg/0.3 mL 0.3 mg IM ONCE #2 ea 02/04/21 09/26/21 Rx injection, auto-injector metoprolol succinate 100 mg 100 mg PO DAILY #90 tab 02/18/21 09/26/21 Rx tablet,extended release 24 hr omeprazole 40 mg capsule,delayed 40 mg PO BID #180 cap 02/18/21 09/26/21 Rx release levetiracetam 500 mg tablet 500 mg PO BID #180 tab 02/22/21 09/26/21 Rx torsemide 100 mg tablet 100 mg PO DAILY #90 tab 03/19/21 09/26/21 Rx blood sugar diagnostic #300 each 04/08/21 09/26/21 Rx ergocalciferol (vitamin D2) 1,250 50,000 unit PO M-W-F #36 tab-cap 04/08/21 09/26/21 Rx mcg (50,000 unit) capsule potassium chloride 20 mEq 40 meq PO BID #180 tab 04/21/21 09/26/21 Rx tablet,extended release malathion 0.5 % lotion 1 applic TOPICAL QWEEK #59 ml 04/26/21 09/26/21 Rx allopurinol 100 mg tablet 100 mg PO DAILY #90 tab-cap 05/27/21 09/26/21 Rx levetiracetam 500 mg tablet 500 mg PO BID 05/28/21 09/26/21 History metolazone 5 mg tablet 5 mg PO .4 times week PRN tab 05/28/21 09/26/21 History gabapentin 100 mg capsule 100 mg PO TID #270 cap 06/07/21 09/26/21 Rx fluconazole 150 mg tablet 150 mg PO Q3D #2 tab 07/20/21 09/26/21 Rx triamcinolone acetonide 0.1 % 1 applic TOPICAL BID #80 g 07/20/21 09/26/21 Rx topical cream atorvastatin 40 mg tablet 40 mg PO DAILY #90 tab-cap 08/03/21 09/26/21 Rx duloxetine 60 mg capsule,delayed 60 mg PO DAILY #90 tab-cap 08/03/21 09/26/21 Rx release isosorbide mononitrate 10 mg tablet 10 mg PO BID #180 tab 08/03/21 09/26/21 Rx ropinirole 2 mg tablet 2 mg PO QPM PRN #90 tab 08/03/21 09/26/21 Rx mupirocin 2 % topical ointment 1 applic TOPICAL BID #22 g 08/24/21 09/26/21 Rx Exam Const General: cooperative, comfortable and no acute distress Nutritional Appearance: obese Orientation: alert, awake and oriented x3 Eyes Eyelids: eyelids normal Pupils: PERRL EOM: EOM intact bilaterally Neck Neck: normal visual inspection and no JVD Lymphatic: no lymphadenopathy noted Resp Effort & Inspection: normal respiratory effort Auscultation: clear to auscultation bilaterally Cardio Jugular venous pressure: no JVD Rhythm: regular rhythm Heart Sounds: S1 normal GI Auscultation: normal bowel sounds Skin General skin exam: no rashes or lesions noted Neuro General: patient alert, patient awake and patient oriented x3 Cognition: normal cognition Speech: speech normal Gait: normal gait Extrem General: abnormal to inspection and abnormal ROM Right lower extremity: knee Details: swelling Location: of the popliteal fossa, of the pre-patellar area and of the infrapatellar area; abnormal to inspection Results Labs Result diagrams: 09/26/21 10:00 09/26/21 10:00 Labs: Laboratory Results - last 24 hr 09/26/21 09/26/21 09/26/21 09:26 10:00 10:00 WBC 11.88 H RBC 3.90 L Hgb 8.8 L Hct 33.1 L MCV 84.9 MCH 22.6 L MCHC 26.6 L RDW 17.7 H Plt Count 342 MPV 9.5 Immature Gran % 0.3 Neutrophils % 76.0 Lymphocytes % 9.7 Monocytes % 7.5 Eosinophils % 5.8 Basophils % 0.7 Nucleated RBC % 0 Absolute Neutrophils 9.03 H Absolute Lymphocytes 1.15 L Absolute Monocytes 0.89 H Absolute Eosinophils 0.69 Absolute Basophils 0.08 RBC Morphology See Below Hypochromasia 1+ Anisocytosis 2+ Microcytosis 2+ Macrocytosis 1+ Sodium 141 Potassium 4.8 Chloride 103 Carbon Dioxide 35.0 H Anion Gap 3.0 BUN 44 H Creatinine 2.8 H Estimated GFR/1.73 m2 16.80 Glucose 135 H Calcium 9.1 Total Bilirubin 0.4 AST 9 L ALT 16 Alkaline Phosphatase 88 Total Protein 7.5 Albumin 3.3 L Lipase 48 Urine Color Yellow Urine Clarity Sl Cloudy Urine pH 6.0 Ur Specific [place] 1.020 Urine Protein Negative Urine Ketones Negative Urine Blood Negative Urine Nitrite Negative Urine Bilirubin Negative Urine Urobilinogen 0.2 Ur Leukocyte Esterase Small H Urine RBC Negative Urine WBC >50 H Ur Epithelial Cells Few Urine Crystals Negative Urine Bacteria Moderate Urine Casts Negative Urine Mucus Trace Ur Culture Indicated? Yes Urine Glucose Negative COVID-19 Source SARS-CoV-2 (PCR) 09/26/21 10:00 WBC RBC Hgb Hct MCV MCH MCHC RDW Plt Count MPV Immature Gran % Neutrophils % Lymphocytes % Monocytes % Eosinophils % Basophils % Nucleated RBC % Absolute Neutrophils Absolute Lymphocytes Absolute Monocytes Absolute Eosinophils Absolute Basophils RBC Morphology Hypochromasia Anisocytosis Microcytosis Macrocytosis Sodium Potassium Chloride Carbon Dioxide Anion Gap BUN Creatinine Estimated GFR/1.73 m2 Glucose Calcium Total Bilirubin AST ALT Alkaline Phosphatase Total Protein Albumin Lipase Urine Color Urine Clarity Urine pH Ur Specific [place] Urine Protein Urine Ketones Urine Blood Urine Nitrite Urine Bilirubin Urine Urobilinogen Ur Leukocyte Esterase Urine RBC Urine WBC Ur Epithelial Cells Urine Crystals Urine Bacteria Urine Casts Urine Mucus Ur Culture Indicated? Urine Glucose COVID-19 Source Nasal/Nares SARS-CoV-2 (PCR) Negative Last Vital Signs Temp 36.2 C L 09/26/21 11:20 Pulse 62 09/26/21 11:20 Resp 19 09/26/21 11:20 BP 107/69 09/26/21 11:20 Pulse Ox 98 09/26/21 11:20
--- NOTE | 2021-09-26 15:13 | DI.VRAD_ITS ---
PROCEDURE INFORMATION: Exam: CT Right Lower Extremity Without Contrast, Knee Exam date and time: 09/26/2021 2:19 PM Age: 70 years old Clinical indication: Other: Question of occult FX of the knee TECHNIQUE: Imaging protocol: CT of the Right lower extremity without contrast was performed. Exam focused on the knee. COMPARISON: CR XR KNEE RT 4V+ 09/25/2021 2:38 PM FINDINGS: Bones/joints: Diffuse osteopenia. Small joint space effusion. Medial joint space narrowing with periarticular osteophyte formation. The distal femur, proximal tibia and fibula are intact. There are no fractures. The patella appears intact. Soft tissues: Normal. Vasculature: Vascular calcifications. IMPRESSION: 1. No fracture. 2. Small joint space effusion. Dictated and Authenticated by: Alcon Barton MD. Ordering:ZACHARIAH Montiel MD
[2021-09-26 15:30] VITALS: BP 109/66; PULSE 67; RESP 19; TEMP 36.8; O2SAT 98
[2021-09-26] MEDS: Gabapentin 100 MG CAP PO ×2 (15:33→19:55)
[2021-09-26] MEDS: Enoxaparin 30 MG/0.3 ML SYR SC (15:33)
[2021-09-26 15:46] VITALS: BP 134/78; PULSE 80; RESP 18; TEMP 37; O2SAT 94
[2021-09-26] MEDS: Diclofenac 1% Gel 100 GM TUBE TP ×2 (16:45→20:07)
[2021-09-26] MEDS: Loperamide 2 MG CAP PO (16:54)
[2021-09-26] MEDS: Insulin Aspart 300 UNITS/3 ML PEN SC (17:34)
[2021-09-26] MEDS: Isosorbide Mononitrate 10 MG TAB PO (19:54)
[2021-09-26] MEDS: Omeprazole 20 MG CAPCR 40 MG PO (19:54)
[2021-09-26] MEDS: Creon, Lipase 6,000 CAPCR 1 CAP PO (19:54)
[2021-09-26] MEDS: Budesonide/Formoterol 80/4.5 6.9 GM 60 PUFF INH IH (19:55)
[2021-09-26] MEDS: levETIRAcetam 500 MG TAB PO (19:55)
[2021-09-26] MEDS: Potassium Chloride 20 MEQ TABCR 40 MEQ PO (19:55)
[2021-09-26] MEDS: Insulin Glargine 300 UNITS/3 ML PEN 35 UNITS SC (19:56)
[2021-09-26] MEDS: rOPINIRole 1 MG TAB 2 MG PO (20:07)
[2021-09-27 04:20] VITALS: BP 119/72; PULSE 71; RESP 18; TEMP 36.8; O2SAT 92
[2021-09-27 07:31] LABS: Abs Immature Grans 0.03 10^3/uL (0.0-0.06); Absolute Basophil Count 0.08 10^3/uL (0.0-0.2); Absolute Eosinophil Count 0.88 10^3/uL (0.0-0.7); Absolute Lymphocyte Count 1.54 10^3/uL (1.2-3.4); Absolute Monocyte Count 0.94 10^3/uL (0.1-0.8); Absolute Neutrophil Count 5.39 10^3/uL (1.2-6.7); Basophils % 0.9; Eosinophils % 9.9; HCT 30.2 % (36.0-46.0); HGB 8.1 g/dL (11.2-15.7); Immature Grans % 0.3; Lymphocytes % 17.4; MCH 22.3 pg (27.0-33.0); MCHC 26.8 % (32.0-36.0); MCV 83.2 fL (80-95); MPV 9.9 fL (8.0-11.0); Monocytes % 10.6; Neutrophils % 60.9; Nucleated RBC 0 %; Platelet Count 338 10^3/uL (130-400); RBC 3.63 10^6/uL (3.93-5.22); RDW 17.4 % (11.7-14.6); RDW-SD 52.6 fL; WBC 8.86 10^3/uL (4.4-10.8)
[2021-09-27] MEDS: Budesonide/Formoterol 80/4.5 6.9 GM 60 PUFF INH IH (07:35)
[2021-09-27] MEDS: Umeclidinium 7 CAP INHALER IH (07:35)
[2021-09-27 07:43] LABS: Diff Comment RBC Morph Reviewed; Hypochromasia 2+
[2021-09-27 07:47] LABS: Magnesium 2.2 mg/dL (1.8-2.4)
[2021-09-27] MEDS: Potassium Chloride 20 MEQ TABCR 40 MEQ PO ×2 (08:16→20:47)
[2021-09-27] MEDS: Gabapentin 100 MG CAP PO ×3 (08:16→20:47)
[2021-09-27] MEDS: DULoxetine 30 MG CAP 60 MG PO (08:16)
[2021-09-27] MEDS: Metoprolol CR 100 MG TABCR PO (08:16)
[2021-09-27] MEDS: Allopurinol 100 MG TAB PO (08:17)
[2021-09-27] MEDS: levETIRAcetam 500 MG TAB PO ×2 (08:17→20:47)
[2021-09-27] MEDS: Aspirin E.C. 81 MG TABEC PO (08:17)
[2021-09-27] MEDS: Omeprazole 20 MG CAPCR 40 MG PO ×2 (08:17→20:47)
[2021-09-27] MEDS: Vitamins B Comp w/C TAB 1 TAB PO (08:17)
[2021-09-27] MEDS: Creon, Lipase 6,000 CAPCR 1 CAP PO ×3 (08:17→20:47)
[2021-09-27] MEDS: Torsemide 100 MG TAB PO ×2 (08:17→15:08)
[2021-09-27] MEDS: Atorvastatin 40 MG TAB PO (08:18)
[2021-09-27] MEDS: Insulin Glargine 300 UNITS/3 ML PEN 35 UNITS SC ×2 (08:19→20:54)
[2021-09-27] MEDS: Diclofenac 1% Gel 100 GM TUBE TP ×4 (08:26→20:54)
[2021-09-27] MEDS: Isosorbide Mononitrate 10 MG TAB PO ×2 (08:35→20:47)
--- NOTE | 2021-09-27 09:58 | INITIAL_ITS ---
- If Service Date Differs Date of service: 09/27/21 Time of Service: 09:58 Care Management Initial Assess REASON FOR HOSPITALIZATION:: weakness, diarrhea PAST MEDICAL HISTORY/PAST SURGICAL HISTORY:: All Active Problems. Discharge planning issues (Acute). Multiple falls (Acute). Acute knee pain (Acute). Acute UTI (Acute). Wound abscess (Acute). CHF (congestive heart failure) (Chronic). Discharge planning issues (Acute). IDDM (insulin dependent diabetes mellitus) (Chronic). DVT prophylaxis (Acute). Seizure (Chronic). Leukocytosis (Chronic). Pulmonary hypertension (Chronic). CKD (chronic kidney disease) stage 3, GFR 30-59 ml/min (Chronic). Cr about 2.5. Chronic obstructive lung disease (Chronic). Medical History. Abnormal mammography. 08/10/06. Acute kidney injury superimposed on chronic kidney disease. [id number] kidney injury. Altered mental status. Anemia. Ankle pain (03/13/14). Annual physical exam (12/14/15). Atrial fibrillation. Atrial flutter. BMI 40.0-44.9, adult (12/02/14). CAD (coronary artery disease), [place] coronary artery. Carpal tunnel syndrome. Carpal tunnel syndrome (08/10/06). BILATERAL. R S/P SURGERY. Cervical disc disorder with myelopathy (08/21/08). S/P surgery x 2. Cervical spondylosis with myelopathy. Chest pain. Neg Stress test. CKD stage 4 due to type 2 diabetes mellitus. Congestive heart failure. Constipation. Dehydration. Diabetes mellitus. 09/20/10 Positive Microalbumin. Diastolic CHF. DNR no code (do not resuscitate). DVT (deep venous thrombosis). Dysuria. Essential hypertension. Folate deficiency (02/15/16). Gout. Gout (07/06/11). Gram-positive bacteremia. Greater trochanteric bursitis of left hip. Hammer toe. Left/right. HAP (hospital-acquired pneumonia) (01/15/19). HCAP (healthcare-associated pneumonia). Heart failure with preserved ejection fraction, borderline, class III. Hepatomegaly. 06/10/04. Hip joint inflamed (09/03/15). Hip pain, left. Hip pain, right. Hyperglycemia. Hyperlipidemia (08/10/00). Hypertension. Hypomagnesemia. Hypoxia. Left hip pain. Low back pain (04/10/03). DISC HERNIATION L4. MULTILEVEL DJD/SPINAL STENOSIS BY MRI; S/P surgery. Lump in neck. Macrocytic anemia. Menopausal syndrome. 07/11/03. Muscle fatigue. 03/04/13. Myoclonic epileptic seizures. Numbness and tingling in left upper extremity. Pancreatic atrophy. Posterior tibial tendon dysfunction. 02/03/16. Postmenopausal bleeding. neg. endometrial biopsy. Postoperative wound dehiscence (12/23/15). Prerenal azotemia. Primary osteoarthritis of left hip (09/17/15). Renal impairment (07/11/03). ADRENAL MASS. F/U W/ KINLAW. positive microalbumin. Restless leg syndrome. Rotator cuff syndrome (08/01/09). Shingles. Smoker (06/30/16). 01/17/17 1-2 cig/wk. SOB (shortness of breath). Spinal stenosis of lumbar region (02/15/16). Spinal stenosis of lumbar region at multiple levels. Tarsal tunnel syndrome. 06/11/13. Tarsal tunnel syndrome (06/11/13). Trochanteric bursitis. 03/18/13. Upper respiratory tract infection (08/03/15). UTI (urinary tract infection). Vaginal atrophy. Vitamin D deficiency. Vitamin D deficiency. Weakness. Surgical History. Arthrodesis. right 2nd toe. Cataract (01/07/14). FOLLOWED BY OPTICAL EXPRESSIONS. cervical repair (~10/2008). C6-C7 DISK; RECURRENT SURGERY. Cholecystectomy (07/31/13). Endometrial Biopsy. NEG. H/O arthrodesis. right second toe. H/O Spinal surgery. multiple spine surgeries; low back x 2; She had multilevel DJD and spinal stenosis; disc herniation. 2008- cervical repair; C6-C7 disc; recurrent surgery. History of bilateral tubal ligation. 09/11/80. History of gynecologic surgery. endometrial biopsy-neg. History of hip surgery. 11/10/15 left hip arthroplasty 12/04/15-placement of wound VAC to left hip. History of orthopedic surgery. 09/11/97 tarsal tunnel release. Left eye surgery. 12/31/17. Ligation of fallopian tube (~1980). Open Carpal Tunnel release. Right wrist surgery. 10/26/17. Rotator Cuff Repair (~1980). S/P CABG (coronary artery bypass graft) (01/03/19). 4 vessel CABG [place] [facility] [place] S/P carpal tunnel release. S/P cholecystectomy. 09/11/12. S/P rotator cuff repair. 09/11/80. SPINE SURGERY. Multiple spine surgeries, low back x 2. She had multilevel DJD and spinal stenosis, disc herniation. Status post incision and drainage. 12/04/15 left hip surgical wound dehiscence and infection. tarsal tunnel release (~1997). Total replacement of hip. [facility]; LEFT HIP PREVIOUS FUNCTIONAL STATUS/SOCIAL/FAMILY SUPPORTS:: Ann-Marie resides in [place] with a friend who was recently . She is and has four adult children. Ann-Marie spends her time at home watching television, crocheting, baking, and shares her dog rarely leaves her side when she is home. 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 Her daughter, Elli, helps to care for her at home. Previous to this admission, she only required assistance with bathing. CURRENT FUNCTIONAL STATUS:: Bibi was sitting up in her chair when CM met with her. She reported that she was feeling ok, although she still has a lot of pain at times in her knee. Per report, she had an MRI today, which revealed a fracture and torn ligament. Her mobility will be significantly limited by this injury. She is agreeable to go to the [facility], where her daughter works, but no other facility. The [facility] is currently closed to admissions, but CM will continue to inquire about their availability. CM will continue to follow. ADVANCE DIRECTIVES:: [facility] on file. [facility] appointment also on file, daughter, Savannah, listed as agent. Has patient been provided with info about the portal/API?: Yes Did the patient sign up for the portal?: No CODE STATUS:: DNR/DNI INSURANCE COVERAGE / FINANCIAL ISSUES:: [employer] (MCR replacement); [facility] CURRENT HOME/COMMUNITY SERVICES/EQUIPMENT:: Tub seat, FWW, glucometer, O2. PRIMARY CARE PHYSICIAN:: Laisha Mcmahon POTENTIAL DISCHARGE NEEDS:: Evaluations for further needs, follow up appointments. PATIENT/FAMILY EDUCATION NEEDS:: Review discharge instructions, discuss Ask Me Three. ANTICIPATED BARRIERS TO DISCHARGE:: None identified at this time. TRANSPORTATION:: Via private vehicle with family. PLAN:: Ann-Marie will go to SNF for short term rehab vs return home with new orders for services. Her daughter will provide transport via private vehicle. She will follow up with her PCP and discharge plan of care. CM will continue to follow.
--- NOTE | 2021-09-27 10:06 | W.PALLCONSUL ---
Date of service: 09/27/21 Time of Service: 08:07 History of Present Illness History of Present Illness Chief Complaint: knee pain. FX Narrative: Megan is a 70-year-old woman whom I know very well. I have been her PCP for about 20 years. She had not been doing well at home and fell twice in the recent past. She had gone to the emergency room twice recently. She had also called me at home about her falls, but I was not available to talk with her. I had spoken to her at the evening after she went to the emergency room the first time and she said she was doing okay. Unfortunately things worsen she return to the ER and was admitted. She was found to have a fractured patella. Consults Consult date: 09/27/21 Requesting physician: Naveed Kaplan Assessment and Plan Assessment and plan (1) Multiple falls: Status: Acute (2) CHF (congestive heart failure): Status: Chronic Qualifiers: Heart failure type: diastolic Heart failure chronicity: chronic Qualified Code(s): I50.32 - Chronic diastolic (congestive) heart failure (3) Pulmonary hypertension: Status: Chronic (4) Medial meniscus tear: Status: Acute (5) Palliative care patient: Status: Acute Assessment and plan: Megan has been my patient for about 20 years. Her CHF has been difficult to control lately. It will take close monitoring. She does have some rales today . She may need more of a diuretic Her MRI was done prior to the note. It does show a medial meniscal tear and medial femoral fracture. Ortho has been consulted and will be following up with the plan Megan understands that she will probably have to go to a prison for some care after the acute stay at [facility]. She stated that she would like to go to the [facility]. CODE STATUS she remains a DNR/DNI Thank you for this consult Review of Systems Narrative: She states that she is in pain in her right knee. Today her breathing is good. Her bowels are doing fine. She does not have any chest pain. PFSH All Active Problems (Updated 09/27/21 @ 13:27 by Laisha Mcmahon MD, DC) Palliative care patient (Acute) Medial meniscus tear (Acute) Discharge planning issues (Acute) Multiple falls (Acute) Acute knee pain (Acute) Acute UTI (Acute) Wound abscess (Acute) CHF (congestive heart failure) (Chronic) Discharge planning issues (Acute) IDDM (insulin dependent diabetes mellitus) (Chronic) DVT prophylaxis (Acute) Seizure (Chronic) Leukocytosis (Chronic) Pulmonary hypertension (Chronic) CKD (chronic kidney disease) stage 3, GFR 30-59 ml/min (Chronic) Cr about 2.5 Chronic obstructive lung disease (Chronic) Medical History (Updated 09/27/21 @ 13:27 by Laisha Mcmahon MD, DC) Abnormal mammography 08/10/06 Acute kidney injury superimposed on chronic kidney disease [id number] kidney injury Altered mental status Anemia Ankle pain (03/13/14) Annual physical exam (12/14/15) Atrial fibrillation Atrial flutter BMI 40.0-44.9, adult (12/02/14) CAD (coronary artery disease), [place] coronary artery Carpal tunnel syndrome Carpal tunnel syndrome (08/10/06) BILATERAL R S/P SURGERY Cervical disc disorder with myelopathy (08/21/08) S/P surgery x 2 Cervical spondylosis with myelopathy Chest pain Neg Stress test CKD stage 4 due to type 2 diabetes mellitus Congestive heart failure Constipation Dehydration Diabetes mellitus 09/20/10 Positive Microalbumin Diastolic CHF DNR no code (do not resuscitate) DVT (deep venous thrombosis) Dysuria Essential hypertension Folate deficiency (02/15/16) Gout Gout (07/06/11) Gram-positive bacteremia Greater trochanteric bursitis of left hip Hammer toe Left/right HAP (hospital-acquired pneumonia) (01/15/19) HCAP (healthcare-associated pneumonia) Heart failure with preserved ejection fraction, borderline, class III Hepatomegaly 06/10/04 Hip joint inflamed (09/03/15) Hip pain, left Hip pain, right Hyperglycemia Hyperlipidemia (08/10/00) Hypertension Hypomagnesemia Hypoxia Left hip pain Low back pain (04/10/03) DISC HERNIATION L4. MULTILEVEL DJD/SPINAL STENOSIS BY MRI; S/P surgery Lump in neck Macrocytic anemia Menopausal syndrome 07/11/03 Muscle fatigue 03/04/13 Myoclonic epileptic seizures Numbness and tingling in left upper extremity Pancreatic atrophy Posterior tibial tendon dysfunction 02/03/16 Postmenopausal bleeding neg. endometrial biopsy Postoperative wound dehiscence (12/23/15) Prerenal azotemia Primary osteoarthritis of left hip (09/17/15) Renal impairment (07/11/03) ADRENAL MASS. F/U W/ KINLAW positive microalbumin Restless leg syndrome Rotator cuff syndrome (08/01/09) Shingles Smoker (06/30/16) 01/17/17 1-2 cig/wk SOB (shortness of breath) Spinal stenosis of lumbar region (02/15/16) Spinal stenosis of lumbar region at multiple levels Tarsal tunnel syndrome 06/11/13 Tarsal tunnel syndrome (06/11/13) Trochanteric bursitis 03/18/13 Upper respiratory tract infection (08/03/15) UTI (urinary tract infection) Vaginal atrophy Vitamin D deficiency Vitamin D deficiency Weakness Surgical History (Updated 09/26/21 @ 15:05 by Tiana Grey NP) Arthrodesis right 2nd toe Cataract (01/07/14) FOLLOWED BY OPTICAL EXPRESSIONS cervical repair (~10/2008) C6-C7 DISK; RECURRENT SURGERY Cholecystectomy (07/31/13) Endometrial Biopsy NEG H/O arthrodesis right second toe H/O Spinal surgery multiple spine surgeries; low back x 2; She had multilevel DJD and spinal stenosis; disc herniation. 2008-cervical repair; C6-C7 disc; recurrent surgery. History of bilateral tubal ligation 09/11/80 History of gynecologic surgery endometrial biopsy-neg History of hip surgery 11/10/15 left hip arthroplasty 12/04/15-placement of wound VAC to left hip History of orthopedic surgery 09/11/97 tarsal tunnel release Left eye surgery 12/31/17 Ligation of fallopian tube (~1980) Open Carpal Tunnel release Right wrist surgery 10/26/17 Rotator Cuff Repair (~1980) S/P CABG (coronary artery bypass graft) (01/03/19) 4 vessel CABG and [place]age [place], [place] [facility] [place] S/P carpal tunnel release S/P cholecystectomy 09/11/12 S/P rotator cuff repair 09/11/80 SPINE SURGERY Multiple spine surgeries, low back x 2. She had multilevel DJD and spinal stenosis, disc herniation Status post incision and drainage 12/04/15 left hip surgical wound dehiscence and infection tarsal tunnel release (~1997) Total replacement of hip [facility]; LEFT HIP Family History Mother Diabetes Essential hypertension Personal history of malignant neoplasm KIDNEY/LIVER/BRAIN Heart disease Hyperlipidemia Stroke Asthma Father Diabetes Essential hypertension Personal history of malignant neoplasm BONE Heart disease Asthma Sister Diabetes Essential hypertension Depression Heart disease Asthma Grandfather No problems noted. Grandfather No problems noted. Grandmother Personal history of malignant neoplasm UTERINE Grandmother Diabetes Aunt Personal history of malignant neoplasm BREAST Brother Hyperlipidemia Stroke Sister Asthma Son Asthma Daughter Depression Asthma Daughter Asthma Daughter Depression Neoplasm Asthma Brother No problems noted. 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 Pets and animals: Yes Pets and animals: cat(s), dog(s) and horse(s) What is your relationship status?: Panel score (0-1 are the most socially isolated patients): 0 What type of physical activity do you participate in: none, walking and additional Details: would like to start now that it's warm Duration: 15-30 minutes/day Saniya/Catholic: Evangelical Special saniya needs: No Seatbelt use: always Do you feel safe at home: Yes Do you feel safe in your relationship?: Yes Additional Social history: recently moved out and is now living with a friend Exam Narrative Exam Narrative: Megan is lying in the bed. She is discouraged and that she had to come twice to the emergency room. She states that she is in pain when she moves but she is comfortable lying there. Eyes General: appearance normal, both eyes and all related structures Resp Effort & Inspection: normal respiratory effort and able to speak in complete sentences Auscultation: rales on the left Cardio Rate: regular rate Extrem General: other (Right knee-it is supported on a pillow. It is very tender. I did not nicol) Results Last Vital Signs Temp 98.2 F 09/27/21 04:20 Pulse 71 09/27/21 04:20 Resp 18 09/27/21 04:20 BP 119/72 09/27/21 04:20 Pulse Ox 92 09/27/21 04:20 MRI FINDINGS: BONES: Nondisplaced fracture medial aspect of the medial femoral condyle with the adjacent bone and soft tissue edema. This is not appear to involve the weight-bearing portion of the femoral condyle. There is mild edema in the lateral tibial plateau, likely degenerative. There is a serpiginous density in the medial tibial plateau says he a typical appearance for an old bone infarct. JOINTS: Thinning of the cartilage of the patella but no focal defect. Moderate-sized joint effusion. TENDONS: Extensor mechanism: Unremarkable. Medial retinaculum: Unremarkable. Lateral retinaculum: Unremarkable. Popliteus: Unremarkable. MUSCLES: Unremarkable. MENISCI: The medial meniscus shows mild degenerative intrasubstance signal. The lateral meniscus shows linear horizontal signal in the body and anterior horn. There is an adjacent meniscal cyst measuring 17 x 10 by 2 cm. The posterior horn also shows a small amount of increased linear signal and blunting at the apex. SOFT TISSUES: Mild anterolateral edema. LIGAMENTS: Anterior Cruciate: Surrounding edema but no visible focal tear. Posterior Cruciate: Unremarkable. Medial Collateral:Some surrounding fluid but no visible tear. Lateral Collateral: Surrounding edema and outward bowing but no visible tear. IMPRESSION: 1. Nondisplaced fracture the medial aspect of the medial femoral condyle. 2. Horizontal tear of the lateral meniscus superimposed on degenerative changes. Adjacent meniscal cyst laterally. 3. Bone infarct medial tibial plateau. Labs Result diagrams: 09/27/21 07:10 09/26/21 10:00 Labs: Laboratory Results - last 24 hr 09/26/21 09/26/21 09/26/21 10:00 10:00 10:00 WBC 11.88 H RBC 3.90 L Hgb 8.8 L Hct 33.1 L MCV 84.9 MCH 22.6 L MCHC 26.6 L RDW 17.7 H Plt Count 342 MPV 9.5 Immature Gran % 0.3 Neutrophils % 76.0 Lymphocytes % 9.7 Monocytes % 7.5 Eosinophils % 5.8 Basophils % 0.7 Nucleated RBC % 0 Absolute Neutrophils 9.03 H Absolute Lymphocytes 1.15 L Absolute Monocytes 0.89 H Absolute Eosinophils 0.69 Absolute Basophils 0.08 RBC Morphology See Below Hypochromasia 1+ Anisocytosis 2+ Microcytosis 2+ Macrocytosis 1+ Sodium 141 Potassium 4.8 Chloride 103 Carbon Dioxide 35.0 H Anion Gap 3.0 BUN 44 H Creatinine 2.8 H Estimated GFR/1.73 m2 16.80 Glucose 135 H Calcium 9.1 Magnesium Total Bilirubin 0.4 AST 9 L ALT 16 Alkaline Phosphatase 88 Total Protein 7.5 Albumin 3.3 L Lipase 48 COVID-19 Source Nasal/Nares SARS-CoV-2 (PCR) Negative 09/27/21 09/27/21 07:10 07:10 WBC 8.86 RBC 3.63 L Hgb 8.1 L Hct 30.2 L MCV 83.2 MCH 22.3 L MCHC 26.8 L RDW 17.4 H Plt Count 338 MPV 9.9 Immature Gran % 0.3 Neutrophils % 60.9 Lymphocytes % 17.4 Monocytes % 10.6 Eosinophils % 9.9 Basophils % 0.9 Nucleated RBC % 0 Absolute Neutrophils 5.39 Absolute Lymphocytes 1.54 Absolute Monocytes 0.94 H Absolute Eosinophils 0.88 H Absolute Basophils 0.08 RBC Morphology See Below Hypochromasia 2+ Anisocytosis Microcytosis Macrocytosis Sodium Potassium Chloride Carbon Dioxide Anion Gap BUN Creatinine Estimated GFR/1.73 m2 Glucose Calcium Magnesium 2.2 Total Bilirubin AST ALT Alkaline Phosphatase Total Protein Albumin Lipase COVID-19 Source SARS-CoV-2 (PCR)
[2021-09-27] MEDS: Ergocalciferol 50000 UNITS CAP PO (10:08)
[2021-09-27] MEDS: Acetaminophen 325 MG TAB PO (10:08)
[2021-09-27] MEDS: diazePAM 2 MG TAB 10 MG PO (10:28)
--- NOTE | 2021-09-27 12:00 | DI.MRI_ITS ---
Exam(s) MR LOWER JOINT RT WO EXAM: MR LOWER JOINT RT WO CLINICAL HISTORY: questionable ligament or tendon tear d/t trauma. TECHNIQUE: Multiplanar multisequence MRI was performed. COMPARISON: CR,XR XR KNEE RT 4V+ from 09/25/[address] LOWER EXTREMITY RT WO from 09/26/2021 FINDINGS: BONES: Nondisplaced fracture medial aspect of the medial femoral condyle with the adjacent bone and s oft tissue edema. This is not appear to involve the weight-bearing portion of the femoral condyle. There is mild edema in the lateral tibial plateau, likely degenerative. There is a serpiginous densi ty in the medial tibial plateau says he a typical appearance for an old bone infarct. JOINTS: Thinning of the cartilage of the patella but no focal defect. Moderate-sized joint effusion. TENDONS: Extensor mechanism: Unremarkable. Medial retinaculum: Unremarkable. Lateral retinaculum: Unremarkable. Popliteus: Unremarkable. MUSCLES: Unremarkable. MENISCI: The medial meniscus shows mild degenerative intrasubstance signal. The lateral meniscus westley ws linear horizontal signal in the body and anterior horn. There is an adjacent meniscal cyst measur ing 17 x 10 by 2 cm. The posterior horn also shows a small amount of increased linear signal and liyah nting at the apex. SOFT TISSUES: Mild anterolateral edema. LIGAMENTS: Anterior Cruciate: Surrounding edema but no visible focal tear. Posterior Cruciate: Unremarkable. Medial Collateral:Some surrounding fluid but no visible tear. Lateral Collateral: Surrounding edema and outward bowing but no visible tear. IMPRESSION: 1. Nondisplaced fracture the medial aspect of the medial femoral condyle. 2. Horizontal tear of the lateral meniscus superimposed on degenerative changes. Adjacent meniscal cyst laterally. 3. Bone infarct medial tibial plateau. DATA REPOSITORY:
[2021-09-27] MEDS: Bupivacaine 0.5% Pres-Free 10 ML VIAL IJ (12:22)
[2021-09-27] MEDS: methylPREDNISolone ACETATE 80 MG/ML VIAL IJ (12:22)
--- NOTE | 2021-09-27 12:45 | PT.INIE ---
PT Notes Visit Reasons: Weakness, Diarrhea Inpatient Physical Therapy Evaluation Date: 09/27/21 Referring Doctor: Tiana Grey NP PT Orders: PT CONSULT: limited ability to ambulate Precautions: WBAT RLE Patient Profile/Admitting Diagnosis: Patient admitted from ER after a series of falls resulting in right knee pain. Patient was evaluated by Dr. Alvarez earlier today, and had her knee aspirated and injected. PMHX: Discharge planning issues (Acute) Multiple falls (Acute) Acute knee pain (Acute) Acute UTI (Acute) Wound abscess (Acute) CHF (congestive heart failure) (Chronic) Discharge planning issues (Acute) IDDM (insulin dependent diabetes mellitus) (Chronic) DVT prophylaxis (Acute) Seizure (Chronic) Leukocytosis (Chronic) Pulmonary hypertension (Chronic) CKD (chronic kidney disease) stage 3, GFR 30-59 ml/min (Chronic) Cr about 2.5 Chronic obstructive lung disease (Chronic) Medical History (Updated 09/26/21 @ 15:16 by Tiana Grey NP) Abnormal mammography 08/10/06 Acute kidney injury superimposed on chronic kidney disease Slimd-oh-wtqbiry kidney injury Altered mental status Anemia Ankle pain (03/13/14) Annual physical exam (12/14/15) Atrial fibrillation Atrial flutter BMI 40.0-44.9, adult (12/02/14) CAD (coronary artery disease), [place] coronary artery Carpal tunnel syndrome Carpal tunnel syndrome (08/10/06) BILATERAL R S/P SURGERY Cervical disc disorder with myelopathy (08/21/08) S/P surgery x 2 Cervical spondylosis with myelopathy Chest pain Neg Stress test CKD stage 4 due to type 2 diabetes mellitus Congestive heart failure Constipation Dehydration Diabetes mellitus 09/20/10 Positive Microalbumin Diastolic CHF DNR no code (do not resuscitate) DVT (deep venous thrombosis) Dysuria Essential hypertension Folate deficiency (02/15/16) Gout Gout (07/06/11) Gram-positive bacteremia Greater trochanteric bursitis of left hip Hammer toe Left/right HAP (hospital-acquired pneumonia) (01/15/19) HCAP (healthcare-associated pneumonia) Heart failure with preserved ejection fraction, borderline, class III Hepatomegaly 06/10/04 Hip joint inflamed (09/03/15) Hip pain, left Hip pain, right Hyperglycemia Hyperlipidemia (08/10/00) Hypertension Hypomagnesemia Hypoxia Left hip pain Low back pain (04/10/03) DISC HERNIATION L4. MULTILEVEL DJD/SPINAL STENOSIS BY MRI; S/P surgery Lump in neck Macrocytic anemia Menopausal syndrome 07/11/03 Muscle fatigue 03/04/13 Myoclonic epileptic seizures Numbness and tingling in left upper extremity Pancreatic atrophy Posterior tibial tendon dysfunction 02/03/16 Postmenopausal bleeding neg. endometrial biopsy Postoperative wound dehiscence (12/23/15) Prerenal azotemia Primary osteoarthritis of left hip (09/17/15) Renal impairment (07/11/03) ADRENAL MASS. F/U W/ KINLAW positive microalbumin Restless leg syndrome Rotator cuff syndrome (08/01/09) Shingles Smoker (06/30/16) 01/17/17 1-2 cig/wk SOB (shortness of breath) Spinal stenosis of lumbar region (02/15/16) Spinal stenosis of lumbar region at multiple levels Tarsal tunnel syndrome 06/11/13 Tarsal tunnel syndrome (06/11/13) Trochanteric bursitis 03/18/13 Upper respiratory tract infection (08/03/15) UTI (urinary tract infection) Vaginal atrophy Vitamin D deficiency Vitamin D deficiency Weakness Social History/Home Situation: Patient lives with a friend in a single level home with 2 MARY. She is normally independent, but after a series of falls, has been reliant on FWW and assistance from her friend. She normally cooks, cleans, etc. Equipment Owned/DME: FWW, tub seat Subjective: Bibi states that her knee is in terrible pain. Her knee was injected just prior to PT evaluation, and she states that even slight movements cause her pain. She'd like to hold off on trying to walk for now. States that she's been falling at home recently due to her right knee buckling out from under her. Her most recent fall was yesterday, which occurred while managing a single step with assistance from her friend. She reports right knee pain and swelling resulting. Objective: General Observation: Resting in recliner with knees flexed and feet supported at initiation of session. Supplemental O2 via nasal cannula. Mental Status: A&Ox3. Pleasant and cooperative. Pain: severe right knee pain ROM: Right Upper Extremity: WFL Left Upper Extremity: WFL Right Lower Extremity: In sitting position, patient demonstrates 80 degrees of each hip and knee flexion. She is unable to tolerate any PROM or AROM of the right knee due to pain, however, with use of recliner chair, she is assisted to -5 degrees knee extension with some difficulty. Left Lower Extremity: WFL Strength: Right Upper Extremity: WFL Left Upper Extremity: WFL Right Lower Extremity: Unable to perform quad set or SLR. Able to pump ankle and wiggle toes. Left Lower Extremity: Quads 3/5 or greater. HS 3/5 or greater. Ankle motions WFL. Bed Mobility/Transfers: patient declines assessment of mobility and transfers Gait: unable to assess Balance: Static Sitting: good Dynamic Sitting: good Static Standing: unable Dynamic Standing: unable Special Tests: Mobility Limitations Standardized Measure [facility] 6 clicks Basic Mobility Inpatient Short Form: Raw Score: 13 CMS Score: 65% impairment Informed Consent/Education: Patient instructed in purpose of PT consult and plan of care. Patient instructed in ankle pumps and glute sets for completion every hour. Assessment: Patient is a 70 year old female referred to physical therapy services with the diagnosis of limited ability to ambulate. Patient recently diagnosed with non-displaced fracture of medial femoral condyle in addition to joint effusion and degenerative changes of the knee. She underwent aspiration and injection just prior to PT consultation, and pain levels remained very high at time of consultation. She requires skilled PT intervention to maximize functional mobility, and anticipate that she will require rehab stay prior to returning home. She currently demonstrates the following impairment level findings: 1. Decreased right knee ROM 2. joint effusion 3. decreased RLE strength 4. acute right knee pain Impairments are contributing to the following functional limitations: 1. unable to ambulate independently 2. unable to transfer independently 3. unable to manage stairs Patient is assessed as Moderate [id number] complexity based on the following: History: 70 year old female with several comorbidities presenting with right knee pain after a mechanical fall. MRI indicates non-displaced fx of the medial femoral condyle, and she was evaluated by ortho earlier today. Anticipate need for SNF placement once medically stable. Examination: functional limitations as noted above Presentation: evolving Decision Making: moderate complexity Goals: Goals X1 week 1. Supine-Sit : supervision 2. Sit-Supine supervision 3. Sit-Stand : supervision 4. Stand-Sit : supervision 5. Bed-Chair : min A with FWW 6. Chair-Bed : min A with FWW 7. Gait : min A with FWW x 20' Plan of Care/Treatment Plan: 1-2x/day, 7 days/week x 1 week. Plan of care has been reviewed with the SATURATION EQUIPMENT OPERATOR providing the service under Physical Therapy direction. Initiate Physical Therapy intervention for strengthening, bed mobility, transfers, gait, stairs, balance training, use of assistive device. DISCHARGE RECOMMENDATIONS: SNF for continued rehabilitation [] TREATMENT CODE/TIME: 12:45-1:15 ([id number]) Mariah Madera, PT, DPT [facility]
--- NOTE | 2021-09-27 12:58 | W.ORTHOCONSU ---
Date of service: 09/27/21 Time of Service: 12:58 History of Present Illness History of Present Illness Chief Complaint: Right Knee Pain Narrative: Bibi is a 70-year-old female who I have previously from other orthopedic issues. Unfortunately, she was seen in the emergency department on 2 consecutive days for falls. During the first fall on 25 September, she felt acute worsening of right knee pain. She was able to go home from the emergency department and she fell once again while at home requiring a second visit and thus admission to the hospital for evaluation of her frequent falling as well as her acute on chronic right knee pain. She does report having some pain about the right knee at baseline although this pain is much worse. She has pain with any attempted motion. She feels the knee will buckle on her. She has been able to ambulate put weight on it at times but there are other times where she finds it quite challenging and difficult. She indicates that the medial aspect the knee is where the pain is the worst but in general terms she grabs the entire knee. He has chronic low back pain which is largely unchanged. She denies any new numbness or tingling about the right leg or knee. Consults Consult date: 09/27/21 Requesting physician: Tiana Grey Consult Reason Right Knee Pain, Falls Assessment and Plan Assessment and plan (1) Tear of lateral meniscus of right knee: Status: Acute Qualifiers: Tear current or old: current Encounter type: initial encounter Meniscus tear of knee type: complex Qualified Code(s): S83.271A - Complex tear of lateral meniscus, current injury, right knee, initial encounter (2) Cyst of lateral meniscus of right knee: Status: Acute (3) Closed avulsion fracture of condyle of right femur: Status: Acute Assessment and plan: Bibi is a 70-year-old female who has had multiple falls in the past 2 days. She does have degenerative changes in the knee which may have predisposed her falling of the first follow-up because she got tripped on her oxygen tubing. CT scan and MRI demonstrated fracture of the medial aspect of the medial femur. This is an equivalent avulsion fracture due to MCL pull. Therefore the mechanism likely was a valgus directed stress to the knee causing an MCL avulsion. The MCL still intact and the bony fragment is nondisplaced and therefore this needs no surgical intervention. There is a complex tear of the lateral meniscus which is likely chronic in nature, especially given the large parameniscal cyst. There is some fluid around the lateral collateral ligament complex and at the origin of the popliteus and fibular head. However, I see no fracture plane through the fibular head and I do not see any injury, tearing, to the posterior corner elements. The ACL and PCL intact therefore this does not represent any knee dislocation. A large portion of these changes in the lateral compartment are likely degenerative in nature. Therefore, I did offer an aspiration of the hemarthrosis as well as an injection with bupivacaine and corticosteroid. Injection was difficult given her positioning and her habitus. However, was able to aspirate 20 cc of yuliya blood and inject bupivacaine and Depo-Medrol. Unfortunately, there is no quick fix. A brace could provide some benefit. However, given her habitus I find that bracing would be largely unsuccessful and quite challenging. Knee immobilizer versus a hinged knee brace are both reasonable options and could be tried if we need further assistance. Otherwise the largest treatment will be time. I think is imperative that she use a walker at all times and only does minimal ambulation. Given her morbid obesity and multiple medical comorbidities, this would likely be best treated in a rehabilitation facility since that she has already fallen twice at home. The knee is still stable to weight-bear. Valgus stress should be minimized, hence bracing is necessary. However, pain will improve with time. I would recommend repeat x-ray and clinical follow-up in 6 weeks. Review of Systems All systems reviewed & are unremarkable except as noted in HPI and below PFSH All Active Problems (Updated 09/28/21 @ 07:46 by Hugo Alvarez MD) Closed avulsion fracture of condyle of right femur (Acute) Cyst of lateral meniscus of right knee (Acute) Tear of lateral meniscus of right knee (Acute) Palliative care patient (Acute) Medial meniscus tear (Acute) Discharge planning issues (Acute) Multiple falls (Acute) Acute knee pain (Acute) Acute UTI (Acute) Wound abscess (Acute) CHF (congestive heart failure) (Chronic) Discharge planning issues (Acute) IDDM (insulin dependent diabetes mellitus) (Chronic) DVT prophylaxis (Acute) Seizure (Chronic) Leukocytosis (Chronic) Pulmonary hypertension (Chronic) CKD (chronic kidney disease) stage 3, GFR 30-59 ml/min (Chronic) Cr about 2.5 Chronic obstructive lung disease (Chronic) Medical History Abnormal mammography 08/10/06 Acute kidney injury superimposed on chronic kidney disease Mryko-nn-zxiuyob kidney injury Altered mental status Anemia Ankle pain (03/13/14) Annual physical exam (12/14/15) Atrial fibrillation Atrial flutter BMI 40.0-44.9, adult (12/02/14) CAD (coronary artery disease), [place] coronary artery Carpal tunnel syndrome Carpal tunnel syndrome (08/10/06) BILATERAL R S/P SURGERY Cervical disc disorder with myelopathy (08/21/08) S/P surgery x 2 Cervical spondylosis with myelopathy Chest pain Neg Stress test CKD stage 4 due to type 2 diabetes mellitus Congestive heart failure Constipation Dehydration Diabetes mellitus 09/20/10 Positive Microalbumin Diastolic CHF DNR no code (do not resuscitate) DVT (deep venous thrombosis) Dysuria Essential hypertension Folate deficiency (02/15/16) Gout Gout (07/06/11) Gram-positive bacteremia Greater trochanteric bursitis of left hip Hammer toe Left/right HAP (hospital-acquired pneumonia) (01/15/19) HCAP (healthcare-associated pneumonia) Heart failure with preserved ejection fraction, borderline, class III Hepatomegaly 06/10/04 Hip joint inflamed (09/03/15) Hip pain, left Hip pain, right Hyperglycemia Hyperlipidemia (08/10/00) Hypertension Hypomagnesemia Hypoxia Left hip pain Low back pain (04/10/03) DISC HERNIATION L4. MULTILEVEL DJD/SPINAL STENOSIS BY MRI; S/P surgery Lump in neck Macrocytic anemia Menopausal syndrome 07/11/03 Muscle fatigue 03/04/13 Myoclonic epileptic seizures Numbness and tingling in left upper extremity Pancreatic atrophy Posterior tibial tendon dysfunction 02/03/16 Postmenopausal bleeding neg. endometrial biopsy Postoperative wound dehiscence (12/23/15) Prerenal azotemia Primary osteoarthritis of left hip (09/17/15) Renal impairment (07/11/03) ADRENAL MASS. F/U W/ KINLAW positive microalbumin Restless leg syndrome Rotator cuff syndrome (08/01/09) Shingles Smoker (06/30/16) 01/17/17 1-2 cig/wk SOB (shortness of breath) Spinal stenosis of lumbar region (02/15/16) Spinal stenosis of lumbar region at multiple levels Tarsal tunnel syndrome 06/11/13 Tarsal tunnel syndrome (06/11/13) Trochanteric bursitis 03/18/13 Upper respiratory tract infection (08/03/15) UTI (urinary tract infection) Vaginal atrophy Vitamin D deficiency Vitamin D deficiency Weakness Surgical History Arthrodesis right 2nd toe Cataract (01/07/14) FOLLOWED BY [employer] cervical repair (~10/2008) C6-C7 DISK; RECURRENT SURGERY Cholecystectomy (07/31/13) Endometrial Biopsy NEG H/O arthrodesis right second toe H/O Spinal surgery multiple spine surgeries; low back x 2; She had multilevel DJD and spinal stenosis; disc herniation. 2008-cervical repair; C6-C7 disc; recurrent surgery. History of bilateral tubal ligation 09/11/80 History of gynecologic surgery endometrial biopsy-neg History of hip surgery 11/10/15 left hip arthroplasty 12/04/15-placement of wound VAC to left hip History of orthopedic surgery 09/11/97 tarsal tunnel release Left eye surgery 12/31/17 Ligation of fallopian tube (~1980) Open Carpal Tunnel release Right wrist surgery 10/26/17 Rotator Cuff Repair (~1980) S/P CABG (coronary artery bypass graft) (01/03/19) 4 vessel CABG and LA appendage excision, Dr. Nav Wang, [facility] [place], [place], [place] S/P carpal tunnel release S/P cholecystectomy 09/11/12 S/P rotator cuff repair 09/11/80 SPINE SURGERY Multiple spine surgeries, low back x 2. She had multilevel DJD and spinal stenosis, disc herniation Status post incision and drainage 12/04/15 left hip surgical wound dehiscence and infection tarsal tunnel release (~1997) Total replacement of hip [facility]; LEFT HIP Family History Mother Diabetes Essential hypertension Personal history of malignant neoplasm KIDNEY/LIVER/BRAIN Heart disease Hyperlipidemia Stroke Asthma Father Diabetes Essential hypertension Personal history of malignant neoplasm BONE Heart disease Asthma Sister Diabetes Essential hypertension Depression Heart disease Asthma Grandfather No problems noted. Grandfather No problems noted. Grandmother Personal history of malignant neoplasm UTERINE Grandmother Diabetes Aunt Personal history of malignant neoplasm BREAST Brother Hyperlipidemia Stroke Sister Asthma Son Asthma Daughter Depression Asthma Daughter Asthma Daughter Depression Neoplasm Asthma Brother No problems noted. 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: [employer]ER Pets and animals: Yes Pets and animals: cat(s), dog(s) and horse(s) What is your relationship status?: Panel score (0-1 are the most socially isolated patients): 0 What type of physical activity do you participate in: none, walking and additional Details: would like to start now that it's warm Duration: 15-30 minutes/day Saniya/Confucianist: Scientologist Special saniya needs: No Seatbelt use: always Do you feel safe at home: Yes Do you feel safe in your relationship?: Yes Additional Social history: recently moved out and is now living with a friend Exam Narrative Exam Narrative: Bibi is sitting up in the hospital chair. She just returned from MRI. She is in no acute distress. She is alert and oriented x3. Morbidly obese. Evaluation of the right knee shows no overlying skin changes. No skin tears or abrasions or lacerations. No erythema or signs of infection. No significant ecchymosis appreciated. There is generalized swelling throughout the legs, with 1+ pitting edema. Any palpation around knee causes pain. She has pain both laterally and medially with palpation. Passively I am able to get her to about 5 degrees short of extension although she complains of significant pain to do so. Unable to get her to about 90 Riese flexion but once again any attempts past point pain. Actively she is resistant and reluctant to perform any straight leg raise secondary to pain. Gentle patella mobilization does not cause pain. X-ray examination of the knee shows pain with varus and valgus stress testing but no gross instability that I can detect. Due to her habitus and positioning anterior posterior drawer were not possible. Results Last Vital Signs Temp 36.8 C 09/27/21 04:20 Pulse 71 09/27/21 04:20 Resp 18 09/27/21 04:20 BP 119/72 09/27/21 04:20 Pulse Ox 92 09/27/21 04:20 Labs Result diagrams: 09/27/21 07:10 09/26/21 10:00 Labs: Laboratory Results - last 24 hr 09/27/21 09/27/21 07:10 07:10 WBC 8.86 RBC 3.63 L Hgb 8.1 L Hct 30.2 L MCV 83.2 MCH 22.3 L MCHC 26.8 L RDW 17.4 H Plt Count 338 MPV 9.9 Immature Gran % 0.3 Neutrophils % 60.9 Lymphocytes % 17.4 Monocytes % 10.6 Eosinophils % 9.9 Basophils % 0.9 Nucleated RBC % 0 Absolute Neutrophils 5.39 Absolute Lymphocytes 1.54 Absolute Monocytes 0.94 H Absolute Eosinophils 0.88 H Absolute Basophils 0.08 RBC Morphology See Below Hypochromasia 2+ Magnesium 2.2 Imaging Imaging Studies: X-ray of the right knee performed on 25 September demonstrates degenerative changes about the lateral compartment primarily. Peripheral osteophytes are seen over the lateral femur. On the sunrise view there is some questioning abnormality about the anterior medial aspect of the medial femur. Bones in general appear to be osteopenic. CT scan of the right knee performed on 26 September demonstrates generalized osteopenia. There is a sclerotic rim seen in the medial aspect of the proximal tibia which likely represent a bony infarct. Degenerative changes are once again appreciated in the lateral compartment primarily. There is what appears to be a fracture of the anteromedial femur without displacement. I am unable to detect a fracture line extending from the medial aspect of the femur into the notch or posteriorly although there does seem to be cortical irregularity at the medial cortex of the medial femur. MRI of the right knee performed on 27 September was once again reviewed. Both T1 and T2 sequences demonstrate a bony infarct in the proximal, medial tibia with a smaller one seen over the lateral aspect of the metaphyseal proximal tibia. There is notable T2 hyperintensity signal seen both medially and laterally as well as somewhat posteriorly. There is a complex lateral meniscal tear extending from the anterior horn through the posterior horn with displaced fragment and a large parameniscal cyst seen lateral Meniscus which she does blow the lateral collateral ligament laterally. I do not see any tearing of the LCL. There is some faint T2 hyperintensity seen within the proximal mass of the fibular head but I do not see a corresponding fracture line. There are notable degenerative changes of the lateral compartment. ACL PCL are intact. In the medial compartment there may be some degenerative changes of the meniscus but no clear tear. There is some hyperintense signal seen around the medial collateral ligament complex. There is a fracture of the medial aspect of the medial, distal femur corresponding to part of the origin of the MCL complex. There is no yuliya displacement. No fracture line seen traversing the medial femur exiting posteriorly or laterally. This primarily is a vertical fracture pattern at the MCL origin. Procedures Joint Aspiration/Injection Joint Asp./Inject. 1: Time out performed: Yes Side of body: right Joint aspirated: knee Ultrasound guidance: No Skin prep: Chlorhexidine Needle size used: 20G Fluid obtained: bloody Total fluid obtained (ml): 20 Medication injected, if any: Methylprednisolone (80mg/ml) Amount of medication injected (ml): 1 Patient tolerated procedure: well Complications: pain Additional comments: PROCEDURE: After a review of the risks of the injection, Bibi agreed to proceed. The right knee was identified by the patient as the correct side. The superolateral border of the patella was identified and marked. Access was challenging given her positioning and her habitus. The skin was prepped with Chloraprep. The knee joint was entered without difficulty, although I did encoutner the lateral femur. I was able to aspirate 20cc of bloody fluid. Then, the injection, consisting of 6cc of 0.5% Bupivicaine and 80mg of DepoMedrol, was injected without resistance. The patient tolerated the procedure well and the injection site was dressed with a Band-Aid.
--- NOTE | 2021-09-27 13:53 | PGE_ITS ---
Date of Service Date of service: 09/27/21 Time of Service: 10:45 Assessment and Plan Assessment and plan (1) Acute knee pain: Start date: 09/27/21 Start time: 10:45 Status: Acute Assessment and plan: MRI reveals: IMPRESSION: 1. Nondisplaced fracture the medial aspect of the medial femoral condyle. 2. Horizontal tear of the lateral meniscus superimposed on degenerative changes. Adjacent meniscal cyst laterally. 3. Bone infarct medial tibial plateau. Ortho following, PT following, no brace necessary, Joint aspirated, and injection placed in knee by ortho. She will need rehab. For now will swing tomorrow to PT until able to get to rehab as she wants to go to [facility] Qualifiers: Laterality: right Qualified Code(s): M25.561 - Pain in right knee (2) Multiple falls: Start date: 09/27/21 Start time: 10:45 Status: Acute Assessment and plan: as above (3) Acute UTI: Start date: 09/27/21 Start time: 10:45 Status: Acute Assessment and plan: with small leuk est. Urine cx sent. Given dose fosfamycin in ED cx pending, hx of e. coli (4) CHF (congestive heart failure): Start date: 09/27/21 Start time: 10:45 Status: Chronic Assessment and plan: Diastolic requiring oxygen, in addition to COPD. Karli gs with rales, will give extra dose torsemide as she does easily go in to CHF Qualifiers: Heart failure type: diastolic Heart failure chronicity: chronic Qualified Code(s): I50.32 - Chronic diastolic (congestive) heart failure (5) Pulmonary hypertension: Start date: 09/27/21 Start time: 10:45 Status: Chronic Assessment and plan: mild to moderate requires oxygen. RVSP was 45-50 (6) Leukocytosis: Start date: 09/27/21 Start time: 10:45 Status: Chronic Assessment and plan: Chronic on inhaled steroids, also likely d/t trauma Qualifiers: Leukocytosis type: unspecified Qualified Code(s): D72.829 - Elevated white blood cell count, unspecified (7) CKD (chronic kidney disease) stage 3, GFR 30-59 ml/min: Start date: 09/27/21 Start time: 10:45 Status: Chronic Assessment and plan: baseline, monitor Qualifiers: Chronic kidney disease stage 3 subtype: unspecified whether 3a or 3b Qualified Code(s): N18.30 - Chronic kidney disease, stage 3 unspecified (8) Chronic obstructive lung disease: Start date: 09/27/21 Start time: 10:45 Status: Chronic Assessment and plan: not exacerbated at this time. Continue home medications and inhaler Qualifiers: COPD type: COPD with acute lower respiratory infection Qualified Code(s): J44.0 - Chronic obstructive pulmonary disease with acute lower respiratory infection (9) IDDM (insulin dependent diabetes mellitus): Start date: 09/27/21 Start time: 10:45 Status: Chronic Assessment and plan: A1C down to 6.8 fingersticks AC and HS. With insulin at mealtimes and monitor glucose levels (10) Seizure: Start date: 09/27/21 Start time: 10:45 Status: Chronic Assessment and plan: on keppra (11) DVT prophylaxis: Start date: 09/27/21 Start time: 10:45 Status: Acute Assessment and plan: enoxaparin (12) Discharge planning issues: Start date: 09/27/21 Start time: 10:45 Status: Acute Assessment and plan: SB tomorrow until rehab discussed with Dr. Kaplan Subjective Subjective Patient reports: other Interval history since last seen: MRI with nondisplaced fx. Seen by Dr. Alvarez. Aspirated effusion and injected knee. Wt bearing as tolerated. Exam Const General: cooperative, comfortable and no acute distress Nutritional Appearance: obese Orientation: alert, awake and oriented x3 Eyes Eyelids: eyelids normal Pupils: PERRL EOM: EOM intact bilaterally Neck Neck: normal visual inspection and no JVD Lymphatic: no lymphadenopathy noted Resp Effort & Inspection: normal respiratory effort Auscultation: clear to auscultation bilaterally Cardio Jugular venous pressure: no JVD Rhythm: regular rhythm Heart Sounds: S1 normal GI Auscultation: normal bowel sounds Skin General skin exam: no rashes or lesions noted Neuro General: patient alert, patient awake and patient oriented x3 Cognition: normal cognition Speech: speech normal Gait: normal gait Extrem General: abnormal to inspection and abnormal ROM Right lower extremity: knee Details: swelling Location: of the popliteal fossa, of the pre-patellar area and of the infrapatellar area; abnormal to inspection Objective Last Vital Signs Temp 36.8 C 09/27/21 04:20 Pulse 71 09/27/21 04:20 Resp 18 09/27/21 04:20 BP 119/72 09/27/21 04:20 Pulse Ox 92 09/27/21 04:20 Laboratory Results - last 24 hr 09/27/21 09/27/21 07:10 07:10 WBC 8.86 RBC 3.63 L Hgb 8.1 L Hct 30.2 L MCV 83.2 MCH 22.3 L MCHC 26.8 L RDW 17.4 H Plt Count 338 MPV 9.9 Immature Gran % 0.3 Neutrophils % 60.9 Lymphocytes % 17.4 Monocytes % 10.6 Eosinophils % 9.9 Basophils % 0.9 Nucleated RBC % 0 Absolute Neutrophils 5.39 Absolute Lymphocytes 1.54 Absolute Monocytes 0.94 H Absolute Eosinophils 0.88 H Absolute Basophils 0.08 RBC Morphology See Below Hypochromasia 2+ Magnesium 2.2
[2021-09-27] MEDS: Enoxaparin 30 MG/0.3 ML SYR SC (15:08)
[2021-09-27] MEDS: Insulin Aspart 300 UNITS/3 ML PEN SC (18:07)
[2021-09-27] MEDS: rOPINIRole 1 MG TAB 2 MG PO (20:46)
[2021-09-27] MEDS: Zolpidem 5 MG TAB PO (21:06)
[2021-09-28 04:00] VITALS: BP 139/66; PULSE 77; RESP 16; TEMP 36.6; O2SAT 94
[2021-09-28 07:21] LABS: HCT 31.6 % (36.0-46.0); HGB 8.8 g/dL (11.2-15.7); MCHC 27.8 % (32.0-36.0); MPV 10.1 fL (8.0-11.0); Platelet Count 394 10^3/uL (130-400); RBC 3.95 10^6/uL (3.93-5.22); RDW 17.6 % (11.7-14.6); WBC 10.72 10^3/uL (4.4-10.8)
[2021-09-28 07:38] LABS: MCH 22.3 pg (27.0-33.0)
[2021-09-28] MEDS: Diclofenac 1% Gel 100 GM TUBE TP ×4 (07:39→19:32)
[2021-09-28] MEDS: Umeclidinium 7 CAP INHALER IH (08:15)
[2021-09-28] MEDS: Budesonide/Formoterol 80/4.5 6.9 GM 60 PUFF INH IH ×2 (08:15→19:33)
--- NOTE | 2021-09-28 08:32 | PDOC.CMPRO ---
- If Service Date Differs Date of service: 09/28/21 Time of Service: 08:32 Care Management Progress Note S/O: Bibi was sitting up in her chair when CM met with her. She reported that she is doing well, although she is having terrible diarrhea. She is working with PT, slowly, as she has limited mobility due to her injury. CM spoke to admissions at the [facility], who reported that she is accepted, pending bed availability. She may not have a bed available until next week, therefore she may need to transition to B 1, awaiting placement. CM will continue to follow. A: Ann-Marie is a 70 year old female admitted to [facility] on 09/[facility]21 with weakness, diarrhea. P: Ann-Marie is agreeable to going to SNF for short term rehab while she recovers from her knee fracture as well as the meniscus tear. Per Ortho, she is weight bearing, but limited with ambulation. A referral was sent to the [facility], which is the only SNF that she is agreeable to go to. She will likely transport via w/c van, coordinated by CM. She will follow up with her PCP and discharge plan of care. CM will continue to support discharge planning considerations.
[2021-09-28] MEDS: Loperamide 2 MG CAP PO ×2 (08:36→19:31)
[2021-09-28] MEDS: Omeprazole 20 MG CAPCR 40 MG PO ×2 (08:37→19:31)
[2021-09-28 09:18] LABS: C Diff PCR Negative (Negative)
[2021-09-28] MEDS: Insulin Glargine 300 UNITS/3 ML PEN 35 UNITS SC ×2 (09:20→19:38)
[2021-09-28] MEDS: Insulin Aspart 300 UNITS/3 ML PEN SC ×3 (09:22→18:21)
[2021-09-28] MEDS: DULoxetine 30 MG CAP 60 MG PO (09:24)
[2021-09-28] MEDS: Isosorbide Mononitrate 10 MG TAB PO ×2 (09:24→19:31)
[2021-09-28] MEDS: Atorvastatin 40 MG TAB PO (09:24)
[2021-09-28] MEDS: Vitamins B Comp w/C TAB 1 TAB PO (09:24)
[2021-09-28] MEDS: Metoprolol CR 100 MG TABCR PO (09:24)
[2021-09-28] MEDS: Potassium Chloride 20 MEQ TABCR 40 MEQ PO ×2 (09:24→19:31)
[2021-09-28] MEDS: Torsemide 100 MG TAB PO (09:25)
[2021-09-28] MEDS: levETIRAcetam 500 MG TAB PO ×2 (09:25→19:32)
[2021-09-28] MEDS: Creon, Lipase 6,000 CAPCR 1 CAP PO ×3 (09:25→19:31)
[2021-09-28] MEDS: Gabapentin 100 MG CAP PO ×3 (09:25→19:32)
[2021-09-28] MEDS: Aspirin E.C. 81 MG TABEC PO (09:25)
[2021-09-28] MEDS: Allopurinol 100 MG TAB PO (09:25)
[2021-09-28] MEDS: Normal Saline Flush 10 ML SYR IVP (09:26)
[2021-09-28 09:45] VITALS: BP 143/75; PULSE 80; RESP 16; TEMP 36.2; O2SAT 95
[2021-09-28] MEDS: HYDROcodone 10/Acetaminophen 325 TAB PO ×2 (12:48→19:31)
--- NOTE | 2021-09-28 14:18 | PGE_ITS ---
Date of Service Date of service: 09/28/21 Time of Service: 14:18 Assessment and Plan Assessment and plan (1) Acute knee pain: Start date: 09/28/21 Start time: 14:21 Status: Acute Assessment and plan: MRI reveals: IMPRESSION: 1. Nondisplaced fracture the medial aspect of the medial femoral condyle. 2. Horizontal tear of the lateral meniscus superimposed on degenerative changes. Adjacent meniscal cyst laterally. 3. Bone infarct medial tibial plateau. Ortho following, PT following, no brace necessary, Joint aspirated, and injection placed in knee by ortho. on 09/27 She will need rehab. Acute care at this time. To monitor fluid status Qualifiers: Laterality: right Qualified Code(s): M25.561 - Pain in right knee (2) Multiple falls: Start date: 09/28/21 Start time: 14: Status: Acute Assessment and plan: as above (3) Acute UTI: Start date: 09/28/21 Start time: 14:22 Status: Acute Assessment and plan: with small leuk est. Urine cx sent. Given dose fosfamycin in ED Urine cx growing e.coli 100 colonies. await sensitivities. No dysuria, however she continues to soak depends though only in am otherwise gets up to use BR. (4) CHF (congestive heart failure): Start date: 09/28/21 Start time: 14:24 Status: Chronic Assessment and plan: Diastolic requiring oxygen, in addition to COPD. Lungs with rales, will give extra dose torsemide as she does easily go in to CHF Make acute care, daily wts, monitor fluid status Qualifiers: Heart failure type: diastolic Heart failure chronicity: chronic Qualified Code(s): I50.32 - Chronic diastolic (congestive) heart failure (5) Pulmonary hypertension: Start date: 09/28/21 Start time: 14:25 Status: Chronic Assessment and plan: mild to moderate requires oxygen. RVSP was 45-50 (6) Leukocytosis: Start date: 09/28/21 Start time: 14:25 Status: Chronic Assessment and plan: Normal today on inhaled steroids, also likely d/t trauma Qualifiers: Leukocytosis type: unspecified Qualified Code(s): D72.829 - Elevated white blood cell count, unspecified (7) CKD (chronic kidney disease) stage 3, GFR 30-59 ml/min: Start date: 09/28/21 Start time: 14:25 Status: Chronic Assessment and plan: baseline, monitor Qualifiers: Chronic kidney disease stage 3 subtype: unspecified whether 3a or 3b Qualified Code(s): N18.30 - Chronic kidney disease, stage 3 unspecified (8) Chronic obstructive lung disease: Start date: 09/28/21 Start time: 14:25 Status: Chronic Assessment and plan: not exacerbated at this time. Continue home m edications and inhaler and chronic oxygen Qualifiers: COPD type: COPD with acute lower respiratory infection Qualified Code(s): J44.0 - Chronic obstructive pulmonary disease with acute lower respiratory infection (9) IDDM (insulin dependent diabetes mellitus): Start date: 09/28/21 Start time: 14:25 Status: Chronic Assessment and plan: A1C down to 6.8 fingersticks AC and HS. With insulin at mealtimes and monitor glucose levels (10) Seizure: Start date: 09/28/21 Start time: 14:26 Status: Chronic Assessment and plan: on yenifer golden precautions. (11) DVT prophylaxis: Start date: 09/28/21 Start time: 14:26 Status: Acute Assessment and plan: enoxaparin (12) Discharge planning issues: Start date: 09/28/21 Start time: 14:26 Status: Acute Assessment and plan: Acute care until rehab discussed with Dr. Kaplan Subjective Subjective Patient reports: still having pain Interval history since last seen: still having pain switched to hydrocodone. Made in patient to watch volume status. She was also placed on a 1500 ml fluid restriction. required extra dose diuretic yesterday, otherwise no complaints. Would like to go to [facility] when they open Exam Const General: cooperative, comfortable and no acute distress Nutritional Appearance: obese Orientation: alert, awake and oriented x3 Eyes Eyelids: eyelids normal Pupils: PERRL EOM: EOM intact bilaterally Neck Neck: normal visual inspection and no JVD Lymphatic: no lymphadenopathy noted Resp Effort & Inspection: normal respiratory effort Auscultation: clear to auscultation bilaterally Cardio Jugular venous pressure: no JVD Rhythm: regular rhythm Heart Sounds: S1 normal GI Auscultation: normal bowel sounds Skin General skin exam: no rashes or lesions noted Neuro General: patient alert, patient awake and patient oriented x3 Cognition: normal cognition Speech: speech normal Gait: normal gait Extrem General: abnormal to inspection and abnormal ROM Right lower extremity: knee Details: swelling Location: of the popliteal fossa, of the pre-patellar area and of the infrapatellar area and abnormal ROM Details: pain with active ROM during, pain with passive ROM during and unable to extend lower leg actively; abnormal to inspection Objective Last Vital Signs Temp 36.2 C L 09/28/21 09:45 Pulse 80 09/28/21 09:45 Resp 16 09/28/21 09:45 BP 143/75 H 09/28/21 09:45 Pulse Ox 95 09/28/21 09:45 Laboratory Results - last 24 hr 09/28/21 09/28/21 06:12 07:18 WBC 10.72 RBC 3.95 Hgb 8.8 L Hct 31.6 L MCV 80.0 D MCH 22.3 L MCHC 27.8 L RDW 17.6 H Plt Count 394 MPV 10.1 Stl C.difficile Tox PCR Negative
--- NOTE | 2021-09-28 14:39 | CHAPLAIN ---
Ann-Marie and I know each other from previous admissions. She is dealing with a knee injury and grateful that she doesn't need surgery. She said she'll be going to the [facility] for rehab before going home. Ann-Marie told me that she moved out of her house where she was living with her daughter because it was a toxic situation. She found a place to stay with a friend who has invited her to stay as long as she'd like. Her dog moved with her. She seems very happy about the move and explained that she had her friend (he used to work in road construction like Ann-Marie did) have a good partnership and enjoy each other's company.
[2021-09-28 15:30] VITALS: BP 125/70; PULSE 81; RESP 18; TEMP 37.1; O2SAT 96
[2021-09-28] MEDS: Enoxaparin 30 MG/0.3 ML SYR SC (15:37)
--- NOTE | 2021-09-28 15:48 | PT.INTREAT ---
Date of service: 09/28/21 Time of Service: 11:51 PT Notes Visit Reasons: Weakness,Diarrhea Inpatient Physical Therapy Treatment Note [facility] Date: 09/28/2021 PRECAUTIONS: Fall, WBAT R, functional transfers only SUBJECTIVE: Bibi is pleasant and agreeable to participating in PT. She states that she has been getting up from her chair and frequently transferring to the commode, sometimes independently. She reports that her R knee is still quite painful. OBJECTIVE: PAIN: Patient c/o R pain with ther ex and transfers BED MOBILITY/TRANSFERS Sit-stand: I Stand-sit: I Chair-commode: S Commode-chair: S GAIT Assistive Device: FWW Weight bearing: WBAT R Assist: S Distance: 6' x2 THEREX: Patient was instructed in a light, open-chain LE strengthening and stabilization program, completed in a long-sitting position, as per flow sheet. TOILETING: Patient toileted x2 ASSESSMENT: Patient tolerated session with c/o increased R knee pain with ther ex and transfers. PLAN: Continue with LE strengthening and stabilization and transfer training, and add UE strengtening for improved mobility and activity tolerance. TREATMENT CODE/TIME: 21 minutes; 06240 (11:51)
[2021-09-28] MEDS: Nystatin POWDER 15 GM JAR TP (19:32)
[2021-09-28] MEDS: rOPINIRole 1 MG TAB 2 MG PO (21:22)
[2021-09-28] MEDS: Zolpidem 5 MG TAB PO (21:22)
[2021-09-28 23:10] VITALS: BP 151/66; PULSE 70; RESP 16; TEMP 36.4; O2SAT 97
[2021-09-29 07:06] VITALS: BP 120/75; PULSE 82; RESP 16; TEMP 37; O2SAT 97
[2021-09-29 07:21] LABS: Anion Gap 6.1 mmol/L (3-11); BUN 48 mg/dL (7-18); CO2 30.9 mmol/L (21.0-32.0); CREATININE 2.4 mg/dL (0.55-1.02); Calcium 9.3 mg/dL (8.5-10.1); Chloride 100 mmol/L (98-107); Estimated GFR 20.08 (mL/min/1.73m2); Glucose 132 mg/dL (74-106); Potassium 4.2 mmol/L (3.5-5.1); Sodium 137 mmol/L (136-145)
[2021-09-29 07:55] VITALS: BP 117/76; PULSE 76; RESP 17; TEMP 36.8; O2SAT 95
[2021-09-29] MEDS: Insulin Aspart 300 UNITS/3 ML PEN SC ×3 (08:05→17:24)
[2021-09-29] MEDS: Insulin Glargine 300 UNITS/3 ML PEN 35 UNITS SC ×2 (08:07→21:12)
[2021-09-29] MEDS: Normal Saline Flush 10 ML SYR IVP (08:08)
[2021-09-29] MEDS: Aspirin E.C. 81 MG TABEC PO (08:10)
[2021-09-29] MEDS: DULoxetine 30 MG CAP 60 MG PO (08:10)
[2021-09-29] MEDS: Creon, Lipase 6,000 CAPCR 1 CAP PO ×3 (08:10→21:11)
[2021-09-29] MEDS: Vitamins B Comp w/C TAB 1 TAB PO (08:10)
[2021-09-29] MEDS: Isosorbide Mononitrate 10 MG TAB PO ×2 (08:10→17:43)
[2021-09-29] MEDS: Omeprazole 20 MG CAPCR 40 MG PO ×2 (08:10→21:11)
[2021-09-29] MEDS: Metoprolol CR 100 MG TABCR PO (08:10)
[2021-09-29] MEDS: Gabapentin 100 MG CAP PO ×3 (08:11→21:11)
[2021-09-29] MEDS: levETIRAcetam 500 MG TAB PO ×2 (08:11→21:11)
[2021-09-29] MEDS: Allopurinol 100 MG TAB PO (08:11)
[2021-09-29] MEDS: Potassium Chloride 20 MEQ TABCR 40 MEQ PO ×2 (08:11→21:11)
[2021-09-29] MEDS: Torsemide 100 MG TAB PO (08:11)
[2021-09-29] MEDS: Atorvastatin 40 MG TAB PO (08:12)
[2021-09-29] MEDS: Nystatin POWDER 15 GM JAR TP ×2 (08:15→21:11)
[2021-09-29] MEDS: Diclofenac 1% Gel 100 GM TUBE TP ×4 (08:16→21:34)
[2021-09-29] MEDS: Budesonide/Formoterol 80/4.5 6.9 GM 60 PUFF INH IH ×2 (08:31→21:13)
[2021-09-29] MEDS: Umeclidinium 7 CAP INHALER IH (08:31)
[2021-09-29] MEDS: HYDROcodone 10/Acetaminophen 325 TAB PO ×2 (09:14→21:22)
[2021-09-29] MEDS: Ergocalciferol 50000 UNITS CAP PO (10:38)
[2021-09-29] MEDS: Loperamide 2 MG CAP PO (12:11)
--- NOTE | 2021-09-29 13:18 | PT.INTREAT ---
Date of service: 09/29/21 Time of Service: 10:08 PT Notes Visit Reasons: Weakness,Diarrhea Inpatient Physical Therapy Treatment Note [facility] Date: 09/29/2021 PRECAUTIONS: Fall, WBAT R, functional transfers only SUBJECTIVE: Bibi is pleasant and agreeable to participating in PT. She states that she has been getting up from her chair and frequently transferring to the commode, sometimes independently. She reports that her R knee is still quite painful. OBJECTIVE: PAIN: Patient c/o R pain with ther ex BED MOBILITY/TRANSFERS/GAIT: Patient cleared to be independent with transfers with FWW in room THEREX: Patient was instructed in a light, open-chain LE strengthening and stabilization program as well as in a resisted UE strengthening program, completed in a long-sitting position, as per flow sheet. She utilizes blue Theraband and 3# dumbbells with all UE exercises. ASSESSMENT: Patient tolerated session with c/o increased R knee pain with ther ex and transfers. PLAN: Continue with light LE strengthening and stabilization and UE strengthening for improved mobility and activity tolerance. TREATMENT CODE/TIME: 24 minutes; 32381 x2 (10:08)
--- NOTE | 2021-09-29 14:29 | PHA.REVIEW ---
Pharmacy Admission Review - Admission Clinical Review (Last Reviewed 09/28/21 @ 07:34 by Hugo Alvarez MD) Closed avulsion fracture of condyle of right femur (Acute) Cyst of lateral meniscus of right knee (Acute) Tear of lateral meniscus of right knee (Acute) Palliative care patient (Acute) Medial meniscus tear (Acute) Discharge planning issues (Acute) Multiple falls (Acute) Acute knee pain (Acute) Acute UTI (Acute) DVT prophylaxis (Acute) oxycodone Allergy (Severe, Verified 09/26/21 09:03) Psychosis venom-honey bee Allergy (Severe, Verified 09/26/21 09:03) ANAPHYLAXIS adhesive Allergy (Verified 09/26/21 09:03) BLISTERS Resuscitation Status DNR/DNI Height 5 ft 10 in Weight 126 kg - Renal Dosing Renal Dosing: BUN 48 mg/dL (7-18) H 09/29/21 06:15 Creatinine 2.4 mg/dL (0.55-1.02) H 09/29/21 06:15 Medications needing adjustments: Reviewed List of meds needing interventions: eCrCl 32.4 ml/min using adjusted bw - Anticoagulation Anticoagulation: Hgb 8.8 g/dL (11.2-15.7) L 09/28/21 06:12 Hct 31.6 % (36.0-46.0) L 09/28/21 06:12 Plt Count 394 10^3/uL (130-400) 09/28/21 06:12 Creatinine 2.4 mg/dL (0.55-1.02) H 09/29/21 06:15 DVT Prophylaxis: Reviewed Medications: Enoxaparin - Opiate Usage Evaluate Pain Scale/Pains Meds: Reviewed (hydrocodone/apap 10/325 q4h prn) Scheduled Bowel Reg ordered if on Opiates?: No (+ BMs daily) - Relevant Labs Sodium 137 mmol/L (136-145) 09/29/21 06:15 Potassium 4.2 mmol/L (3.5-5.1) 09/29/21 06:15 Chloride 100 mmol/L (98-107) 09/29/21 06:15 Magnesium 2.2 mg/dL (1.8-2.4) 09/27/21 07:10 Electrolytes, C-Reactive P, ESR: Reviewed - DM Control DM Control: Glucose 132 mg/dL (74-106) H 09/29/21 06:15 Finger Stick Blood Glucose 201 Finger Stick Blood Glucose 201 Finger Stick Blood Glucose 201 Finger Stick Blood Glucose 165 Finger Stick Blood Glucose 165 Finger Stick Blood Glucose 165 Finger Stick Blood Glucose 165 Finger Stick Blood Glucose 165 Finger Stick Blood Glucose 165 Insulin Dosing: Reviewed (aspart SS (moderate) with meals + 35U glargine BID) - Heart Failure/OR EF%, MARTIR's, B-Blockers, Diuretics: N/A - BP Control BP Control: Blood Pressure 117/76 Blood Pressure 120/75 If elevated: Reviewed - Qtc Review If Elevated: N/A - IV to PO Switch IV Medications: Reviewed - Home Meds Home Med List reviewed: Reviewed Relevent Home Meds Not ordered & why?: mae (SS aspart ordered) - Current meds Current Medication Order Review: Intervened (isosorbide should have been timed 7 hours apart ie @ 0800 and 1500) - Comments Comments/Follow Ups: hydrocodone for pain control, fosfomycin was given in the ED on 09/26 for UTI, will be dc'd to SNF for acute rehab, goes into CHF easily monitor chf closely -- i/o, daily wt, fluid restriction
[2021-09-29] MEDS: Enoxaparin 30 MG/0.3 ML SYR SC (14:51)
--- NOTE | 2021-09-29 15:07 | PGE_ITS ---
Date of Service Date of service: 09/29/21 Time of Service: 15:07 Assessment and Plan Assessment and plan (1) Acute knee pain: Status: Acute Assessment and plan: right knee: traumatic from multiple falls, lateral meniscus tear, and nondisplaced medial condyle femur fracture (non surgical) Ortho following, PT following, no brace necessary, Joint aspirated, and injection placed in knee by ortho. on 09/27 continue pain management, weight bearing as directed. PT Qualifiers: Laterality: right Qualified Code(s): M25.561 - Pain in right knee (2) Multiple falls: Status: Acute Assessment and plan: as above (3) Acute UTI: Status: Acute Assessment and plan: with small leuk est. Urine growing E coli. Given dose fosfamycin in ED (4) CHF (congestive heart failure): Status: Chronic Assessment and plan: Diastolic, requiring oxygen at baseline. Was given extra dose torsemide as she does easily go in to CHF continue daily wts, monitor fluid status last echo 2019: Conclusion Left Ventricle : The left ventricle is normal size. left ventricular hypertrophy with sigmoid septum, no obstructions at rest or with provocation. There is some septal bowing which suggests RV pressure overload. Otherwise, segment wall motion is normal. The left ventricular diastolic function is normal. LVEF is 60- 65%. Right Ventricle : Right ventricle is dilated. The right ventricular systolic function is normal. Atria : The left atrium size is normal. The right atrium size is normal. Aortic Valve : No aortic regurgitation is present. Aortic valve is trileaflet and mobile. Aortic valve leaflets are mildly thickened. The Aortic valve annulus has focal calcification. Aortic sclerosis without stenosis Mitral Valve : Mitral valve leaflets are mildly thickened. MV bends without prolapse Trivial mitral regurgitation. No evidence of mitral valve stenosis. Tricuspid Valve : The tricuspid valve leaflets are thickened but open well. Moderate tricuspid regurgitation. The RVSP is 45-50mmHg Great Vessels : The IVC is normal in size and collapses >50% with inspiration. Echocardiogram dated 01/16/2019: Estimated RV pressures have increased slightly. Qualifiers: Heart failure chronicity: chronic Heart failure type: diastolic Qualified Code(s): I50.32 - Chronic diastolic (congestive) heart failure (5) Pulmonary hypertension: Status: Chronic Assessment and plan: mild to moderate requires oxygen. RVSP was 45-50 (6) Leukocytosis: Status: Chronic Assessment and plan: Normalized on inhaled steroids, also likely d/t trauma Qualifiers: Leukocytosis type: unspecified Qualified Code(s): D72.829 - Elevated white blood cell count, unspecified (7) CKD (chronic kidney disease) stage 3, GFR 30-59 ml/min: Status: Chronic Assessment and plan: baseline, monitor Qualifiers: Chronic kidney disease stage 3 subtype: unspecified whether 3a or 3b Qualified Code(s): N18.30 - Chronic kidney disease, stage 3 unspecified (8) Chronic obstructive lung disease: Status: Chronic Assessment and plan: not exacerbated at this time. Continue home medications and inhaler and chronic oxygen Qualifiers: COPD type: COPD with acute lower respiratory infection Qualified Code(s): J44.0 - Chronic obstructive pulmonary disease with acute lower respiratory infection (9) IDDM (insulin dependent diabetes mellitus): Status: Chronic Assessment and plan: A1C down to 6.8 fingersticks AC and HS. With insulin at mealtimes and monitor glucose levels (10) Seizure: Status: Chronic Assessment and plan: on yenifer golden precautions. (11) DVT prophylaxis: Status: Acute Assessment and plan: enoxaparin (12) Discharge planning issues: Status: Acute Assessment and plan: will likely d/c to home tomorrow with home health services declining to accept bed at [facility] and rehab discussed with Dr. Kaplan Subjective Subjective Patient reports: no new complaints, still having pain, pain is less, tolerating liquids well, tolerating a regular diet and afebrile; denies shortness of breath Exam Const General: cooperative, comfortable and no acute distress Nutritional Appearance: obese Orientation: alert, awake and oriented x3 Eyes General: appearance normal, both eyes and all related structures Eyelids: eyelids normal Pupils: PERRL EOM: EOM intact bilaterally Neck Neck: normal visual inspection and no JVD Lymphatic: no lymphadenopathy noted Resp Effort & Inspection: normal respiratory effort and able to speak in complete sentences Auscultation: clear to auscultation bilaterally Cardio Rate: regular rate Rhythm: regular rhythm GI Auscultation: normal bowel sounds Skin General skin exam: no rashes or lesions noted Neuro General: patient alert, patient awake and patient oriented x3 Cognition: normal cognition Speech: speech normal Extrem General: abnormal to inspection and abnormal ROM Right lower extremity: knee Details: swelling Location: of the popliteal fossa, of the pre-patellar area and of the infrapatellar area and abnormal ROM Details: pain with active ROM during, pain with passive ROM during and unable to extend lower leg actively; abnormal to inspection Objective Last Vital Signs Temp 36.8 C 09/29/21 07:55 Pulse 76 09/29/21 07:55 Resp 17 09/29/21 07:55 BP 117/76 09/29/21 07:55 Pulse Ox 95 09/29/21 07:55 Laboratory Results - last 24 hr 09/29/21 06:15 Sodium 137 Potassium 4.2 Chloride 100 Carbon Dioxide 30.9 Anion Gap 6.1 BUN 48 H Creatinine 2.4 H Estimated GFR/1.73 m2 20.08 Glucose 132 H Calcium 9.3
--- NOTE | 2021-09-29 15:22 | PDOC.CMPRO ---
- If Service Date Differs Date of service: 09/29/21 Time of Service: 15:22 Care Management Progress Note S/O: Bibi was sitting in her chair when CM met with her. She reported that she is feeling ok, but still has pain in her knee. Per provider, she will be cleared to discharge home soon, as she has limited goals with PT while her knee heals. She is still interested in going to the [facility], where she can rehab her knee, but they do not have a bed for her until next week. She has had a qualifying stay, and can go to rehab from the community if she is not successful at home. She reported that she will need to have her friend, whom she lives with, move some furniture around so that she does not have to navigate stairs at home. Her family is working on accommodations to bring her home. CM will continue to follow. A: Ann-Marie is a 70 year old female admitted to [facility] on 09/26/21 with weakness, diarrhea. P: Ann-Marie is agreeable to going to SNF for short term rehab while she recovers from her knee fracture as well as the meniscus tear. Per Ortho, she is weight bearing, but limited with ambulation. A referral was sent to the [facility], which is the only SNF that she is agreeable to go to. She will likely transport via w/c van, coordinated by CM. She will follow up with her PCP and discharge plan of care. CM will continue to support discharge planning considerations.
[2021-09-29 15:30] VITALS: BP 116/88; PULSE 67; RESP 18; TEMP 36.6; O2SAT 96
[2021-09-29 21:07] VITALS: BP 106/64; PULSE 56; RESP 18; TEMP 36.6; O2SAT 96
[2021-09-29] MEDS: rOPINIRole 1 MG TAB 2 MG PO (21:22)
[2021-09-29] MEDS: Zolpidem 5 MG TAB PO (21:22)
[2021-09-29 23:58] VITALS: BP 115/66; PULSE 63; RESP 17; TEMP 36; O2SAT 96
[2021-09-30 05:12] VITALS: BP 119/61; PULSE 59; RESP 18; TEMP 35.8; O2SAT 98
[2021-09-30 07:27] VITALS: BP 118/66; PULSE 62; RESP 16; TEMP 36.2; O2SAT 97
[2021-09-30] MEDS: Umeclidinium 7 CAP INHALER IH (08:05)
[2021-09-30] MEDS: Budesonide/Formoterol 80/4.5 6.9 GM 60 PUFF INH IH (08:05)
[2021-09-30] MEDS: Insulin Glargine 300 UNITS/3 ML PEN 35 UNITS SC (08:13)
[2021-09-30] MEDS: Diclofenac 1% Gel 100 GM TUBE TP ×2 (08:16→11:58)
[2021-09-30] MEDS: Nystatin POWDER 15 GM JAR TP (08:16)
[2021-09-30] MEDS: Gabapentin 100 MG CAP PO (08:17)
[2021-09-30] MEDS: levETIRAcetam 500 MG TAB PO (08:17)
[2021-09-30] MEDS: Potassium Chloride 20 MEQ TABCR 40 MEQ PO (08:17)
[2021-09-30] MEDS: Atorvastatin 40 MG TAB PO (08:17)
[2021-09-30] MEDS: Vitamins B Comp w/C TAB 1 TAB PO (08:17)
[2021-09-30] MEDS: Torsemide 100 MG TAB PO (08:17)
[2021-09-30] MEDS: Aspirin E.C. 81 MG TABEC PO (08:17)
[2021-09-30] MEDS: Isosorbide Mononitrate 10 MG TAB PO (08:18)
[2021-09-30] MEDS: Omeprazole 20 MG CAPCR 40 MG PO (08:18)
[2021-09-30] MEDS: Metoprolol CR 100 MG TABCR PO (08:18)
[2021-09-30] MEDS: DULoxetine 30 MG CAP 60 MG PO (08:18)
[2021-09-30] MEDS: Creon, Lipase 6,000 CAPCR 1 CAP PO (08:18)
[2021-09-30] MEDS: Allopurinol 100 MG TAB PO (08:18)
[2021-09-30] MEDS: HYDROcodone 10/Acetaminophen 325 TAB PO (08:28)
--- NOTE | 2021-09-30 09:14 | W.INDIABCONS ---
Date of service: 09/30/21 Time of Service: 09:14 Diabetes Inpatient Consult Reason for Visit: Diabetes consult DESCRIPTION/ASSESSMENT: Ms. Griggs's most recent A1C at target at 6.8. Blood sugars in house are also at target. She is getting 35 units of Glargine bid as well as correction at mealtime with aspart. At home, she takes 25 mg sitagliptin, aspart 15 units tid, and glargine 35 units bid. Weight history shows a 6.8% weight loss in the past three months which was intentional. I met with Ms. Griggs and she stated she has been working very hard at managing her diabetes. INTERVENTION: Would continue with home regimen for diabetes management as it has been effective. PLAN: Per hospitalist, d/c home today. Ms. Griggs was encouraged to call me with any questions or concerns regarding her diabetes self management. Time Spent in Nutritional Counseling and Treatment: 30 minutes
--- NOTE | 2021-09-30 11:10 | W.PM.DS.N ---
Date of service: 09/30/21 Time of Service: 11:10 DS: Diagnosis Discharge Diagnosis (1) Acute knee pain: Status: Acute (2) Multiple falls: Status: Acute (3) Acute UTI: Status: Acute (4) CHF (congestive heart failure): Status: Chronic (5) Pulmonary hypertension: Status: Chronic (6) Leukocytosis: Status: Chronic (7) CKD (chronic kidney disease) stage 3, GFR 30-59 ml/min: Status: Chronic (8) Chronic obstructive lung disease: Status: Chronic (9) IDDM (insulin dependent diabetes mellitus): Status: Chronic (10) Seizure: Status: Chronic Discharge Plan Disposition Patient Disposition: HOME W/HOME HEALTH SERVICE Condition: Stable Discharge Details Reason For Visit: Weakness,Diarrhea Admit Date/Time: 09/27/21 16:24 Admit Provider: Naveed Kaplan Attending Provider: Naveed Kaplan Primary Care Provider: Laisha Mcmahon [facility] Course Hospital Course: This is a 70 year old female, with extensive cardiac history, diabetes mellitus type 2, Oxygen dependent, Seizures, super morbid obesity who presented to the ED at [facility] multiple times for multiple falls, this for ongoing bilateral knee weakness and pain right more than left. Initial imagining was negative but now CT scan and MRI demonstrated fracture of the medial aspect of the medial femur. Per orthopedic consultation: This is an equivalent avulsion fracture due to MCL pull. Therefore the mechanism likely was a valgus directed stress to the knee causing an MCL avulsion. The MCL still intact and the bony fragment is nondisplaced and therefore this needs no surgical intervention. There is a complex tear of the lateral meniscus which is likely chronic in nature, especially given the large parameniscal cyst. There was some fluid around the lateral collateral ligament complex and at the origin of the popliteus and fibular head. However, there was no fracture plane through the fibular head and I do not see any injury, tearing, to the posterior corner elements. The ACL and PCL intact therefore this does not represent any knee dislocation. A large portion of these changes in the lateral compartment are likely degenerative in nature. He underwent an aspiration of the hemarthrosis as well as an injection with bupivacaine and corticosteroid. recommendations are for knee immobilizer versus a hinged knee brace but she is unable to tolerate d/t body habitus. It is imperative that she use a walker at all times and only does minimal ambulation. Given her morbid obesity and multiple medical comorbidities, this would likely be best treated in a rehabilitation facility since that she has already fallen twice at home. Case management has been following and referrals placed. She was accepted at [facility] and rehab but declines to be discharged there. She remained here, continued to work with PT and progressed. she was cleared for independent ambulation and transfers in room and felt she could be discharged to home if bed was placed on same level as bathroom which was arranged by roommate so she would not need to negotiate stairs. She will be discharged to home with home health services. discharge discussed with Dr Kaplan. Home Meds and New Rx's Prescriptions: New hydrocodone-acetaminophen 10-325 mg Tablet 1 tab PO Q6H PRNQty: 12 RF: 0 Continued (DME) lancets 25 gauge misc See Dose Instructions .ROUTE .MEDSUPPLY Qty: 100 RF: 5 (DME) lancets [OneTouch Delica Lancets] 33 gauge misc See Dose Instructions .ROUTE DAILY Qty: 100 RF: 0 B-complex with vitamin C [Super B Complex-Vitamin C] Tablet 1 tab PO DAILY RF: 0 albuterol sulfate 2.5 mg /3 mL (0.083 %) solution for nebulization 2.5 mg INHALATION Q2H PRN PRN (Reason: shortness of breath or wheezing) Qty: 180 RF: 4 (DME) Blood Glucose Test Strip See Dose Instructions .ROUTE .MEDSUPPLY Qty: 300 RF: 5 ergocalciferol (vitamin D2) [Vitamin D2] 1,250 mcg (50,000 unit) capsule 50,000 unit PO Qty: 36 RF: 4 epinephrine [EpiPen 2-Erick] 0.3 mg/0.3 mL auto-injector 0.3 mg IM ONCE Qty: 2 RF: 10 omeprazole 40 mg capsule,delayed release(DR/EC) 40 mg PO BID Qty: 180 RF: 4 metoprolol succinate 100 mg tablet extended release 24 hr 100 mg PO DAILY Qty: 90 RF: 3 gabapentin 100 mg capsule 100 mg PO TID Qty: 270 RF: 0 metolazone 5 mg tablet 5 mg PO .4 times week PRN (Reason: chf) RF: 0 mupirocin 2 % ointment 1 applic topical BID Qty: 22 RF: 3 Creon 6,000-19,000 -30,000 unit capsule,delayed release(DR/EC) 1 cap PO TID Qty: 270 RF: 5 Slow-Mag 71.5 mg tablet,delayed release (DR/EC) 71.5 mg PO BID Qty: 180 RF: 4 meclizine 12.5 mg tablet 12.5 mg PO TID PRN (Reason: dizziness) Qty: 60 RF: 3 (DME) pen needle, diabetic [1st Tier Unifine Pentips] 31 gauge x 1/4 needle See Dose Instructions .ROUTE .MEDSUPPLY Qty: 450 RF: 5 Incruse Ellipta 62.5 mcg/actuation blister with device 1 inh inhalation DAILY Qty: 30 RF: 12 Januvia 25 mg tablet 25 mg PO DAILY Qty: 90 RF: 4 Basaglar KwikPen U-100 Insulin 100 unit/mL (3 mL) insulin pen 35 unit SC BID Qty: 90 RF: 4 insulin aspart U-100 [Novolog Flexpen U-100 Insulin] 100 unit/mL (3 mL) insulin pen 15 unit SC TID Qty: 30 RF: 5 budesonide-formoterol [Symbicort] 160-4.5 mcg/actuation HFA aerosol inhaler 2 puff inhalation BID RF: 0 levetiracetam [Keppra] 500 mg tablet 500 mg PO BID Qty: 180 RF: 5 torsemide 100 mg tablet 100 mg PO DAILY Qty: 90 RF: 6 potassium chloride [K-Tab] 20 mEq tablet extended release 40 meq PO BID Qty: 180 RF: 4 allopurinol 100 mg tablet 100 mg PO DAILY Qty: 90 RF: 12 triamcinolone acetonide 0.1 % cream 1 applic topical BID Qty: 80 RF: 0 isosorbide mononitrate 10 mg tablet 10 mg PO BID Qty: 180 RF: 5 atorvastatin 40 mg tablet 40 mg PO DAILY Qty: 90 RF: 6 duloxetine 60 mg capsule,delayed release(DR/EC) 60 mg PO DAILY Qty: 90 RF: 12 ropinirole 2 mg tablet 2 mg PO QPM PRN (Reason: restless leg(s)) Qty: 90 RF: 5 polyethylene glycol 3350 [Miralax] 17 gram Powder In Packet 1 g PO PRN PRNRF: 0 aspirin 81 mg Tablet,Delayed Release (Dr/Ec) 81 mg PO DAILY Qty: 0 RF: 0 calcium [id number] vitaliy 133 mg calcium -133 unit-67 mg Capsule 2 cap PO DAILY RF: 0 Changed acetaminophen [Tylenol Extra Strength] 500 mg Tablet 500 mg PO TID Qty: 0 RF: 0 Discharge Instructions Instructions: Knee Sprain (DC), Fall Prevention (DC), Meniscus Tear (ED) Additional Instructions: use a walker at all times and only does minimal ambulation. The knee is still stable to weight-bear. Valgus stress should be minimized Stand Alone Forms: Nursing Discharge Form Referrals: Laisha Mcmahon [place], [place] [Primary Care Provider] - 10/14/21 8:00 am Vicky Pickard MD [ [facility] STAFF PHYSICIAN] - 11/08/21 10:40 am Mesfin Edouard MD [ [facility] STAFF PHYSICIAN] - (recommend repeat x-ray and clinical follow-up in 6 weeks.) Activity:: Activity as Tolerated Equipment/Supplies:: Walker Diet:: As Tolerated Discharge Orders Discharge Orders: Discharge Order (Routine); Ordered 09/30/21 Ordered By: Marina Coker DS: Summary Time Spent with Patient providing and/or coordinating discharge services: Greater than 30 minutes Status at Discharge Functional status at discharge: uses cane/walker Overall status at discharge: patient is progressing back to baseline Mental Status: mental status grossly normal Speech and Movement: speech and movement normal Mood: congruent mood Affect: normal affect Exam Const General: cooperative, comfortable and no acute distress Nutritional Appearance: obese Orientation: alert, awake and oriented x3 Eyes General: appearance normal, both eyes and all related structures Eyelids: eyelids normal Pupils: PERRL EOM: EOM intact bilaterally Neck Neck: normal visual inspection and no JVD Lymphatic: no lymphadenopathy noted Resp Effort & Inspection: normal respiratory effort and able to speak in complete sentences Auscultation: clear to auscultation bilaterally Cardio Rate: regular rate Rhythm: regular rhythm GI Auscultation: normal bowel sounds Skin General skin exam: no rashes or lesions noted Neuro General: patient alert, patient awake and patient oriented x3 Cognition: normal cognition Speech: speech normal Extrem General: abnormal to inspection and abnormal ROM Right lower extremity: knee Details: swelling Location: of the popliteal fossa, of the pre-patellar area and of the infrapatellar area and abnormal ROM Details: pain with active ROM during, pain with passive ROM during and unable to extend lower leg actively; abnormal to inspection Psych Mental Status: mental status grossly normal Speech and Movement: speech and movement normal Mood: congruent mood Affect: normal affect DS: Data Vitals/I&O Vitals and I&O: Vital Signs Temperature 36.2 C L 09/30/21 07:27 Temperature Source Tympanic 09/30/21 07:27 Pulse 62 09/30/21 07:27 Pulse Rhythm Regular 09/30/21 08:38 Respiratory Rate 16 09/30/21 07:27 Respiratory Effort Non-Labored 09/30/21 08:38 Respiratory Depth Normal 09/30/21 08:38 Respiratory Pattern Normal 09/30/21 08:38 Blood Pressure 118/66 09/30/21 07:27 Blood Pressure Position Supine 09/26/21 08:59 Pulse Oximetry 97 09/30/21 07:27 Oxygen Delivery Method Room Air 09/30/21 07:27 Oxygen Flow Rate 0 09/30/21 07:27 Pain Level 7 09/30/21 08:28 Comment 09/29/21 23:58 Intake & Output 09/29/21 09/29/21 09/30/21 11:59 23:59 11:59 Intake Total 240 / 790 550 / 790 490 / 490 Output Total 100 / 600 500 / 600 1250 / 1250 Balance 140 / 190 50 / 190 -760 / -760 Weight 123.3 kg Intake: IV 10 Oral 240 / 780 540 / 780 480 / 480 Output: Urine 500 / 500 1250 / 1250 Stool 100 / 100 Other: Urine Color Yellow Yellow Yellow Urine Appearance Clear Clear Clear Urine Odor Normal Normal Normal Comment Could not measure because was mixed with stool Stool Occult Blood Negative Stool Size Small Stool Characteristics Liquid Voiding Methods Bedside Commode Bedside Commode Bedside Commode Diaper Incontinent PFSH All Active Problems (Updated 09/28/21 @ 07:46 by Hugo Alvarez MD) Closed avulsion fracture of condyle of right femur (Acute) Cyst of lateral meniscus of right knee (Acute) Tear of lateral meniscus of right knee (Acute) Palliative care patient (Acute) Medial meniscus tear (Acute) Discharge planning issues (Acute) Multiple falls (Acute) Acute knee pain (Acute) Acute UTI (Acute) Wound abscess (Acute) CHF (congestive heart failure) (Chronic) Discharge planning issues (Acute) IDDM (insulin dependent diabetes mellitus) (Chronic) DVT prophylaxis (Acute) Seizure (Chronic) Leukocytosis (Chronic) Pulmonary hypertension (Chronic) CKD (chronic kidney disease) stage 3, GFR 30-59 ml/min (Chronic) Cr about 2.5 Chronic obstructive lung disease (Chronic) Medical History Abnormal mammography 08/10/06 Acute kidney injury superimposed on chronic kidney disease [id number] kidney injury Altered mental status Anemia Ankle pain (03/13/14) Annual physical exam (12/14/15) Atrial fibrillation Atrial flutter BMI 40.0-44.9, adult (12/02/14) CAD (coronary artery disease), [place] coronary artery Carpal tunnel syndrome Carpal tunnel syndrome (08/10/06) BILATERAL R S/P SURGERY Cervical disc disorder with myelopathy (08/21/08) S/P surgery x 2 Cervical spondylosis with myelopathy Chest pain Neg Stress test CKD stage 4 due to type 2 diabetes mellitus Congestive heart failure Constipation Dehydration Diabetes mellitus 09/20/10 Positive Microalbumin Diastolic CHF DNR no code (do not resuscitate) DVT (deep venous thrombosis) Dysuria Essential hypertension Folate deficiency (02/15/16) Gout Gout (07/06/11) Gram-positive bacteremia Greater trochanteric bursitis of left hip Hammer toe Left/right HAP (hospital-acquired pneumonia) (01/15/19) HCAP (healthcare-associated pneumonia) Heart failure with preserved ejection fraction, borderline, class III Hepatomegaly 06/10/04 Hip joint inflamed (09/03/15) Hip pain, left Hip pain, right Hyperglycemia Hyperlipidemia (08/10/00) Hypertension Hypomagnesemia Hypoxia Left hip pain Low back pain (04/10/03) DISC HERNIATION L4. MULTILEVEL DJD/SPINAL STENOSIS BY MRI; S/P surgery Lump in neck Macrocytic anemia Menopausal syndrome 07/11/03 Muscle fatigue 03/04/13 Myoclonic epileptic seizures Numbness and tingling in left upper extremity Pancreatic atrophy Posterior tibial tendon dysfunction 02/03/16 Postmenopausal bleeding neg. endometrial biopsy Postoperative wound dehiscence (12/23/15) Prerenal azotemia Primary osteoarthritis of left hip (09/17/15) Renal impairment (07/11/03) ADRENAL MASS. F/U W/ KINLAW positive microalbumin Restless leg syndrome Rotator cuff syndrome (08/01/09) Shingles Smoker (06/30/16) 01/17/17 1-2 cig/wk SOB (shortness of breath) Spinal stenosis of lumbar region (02/15/16) Spinal stenosis of lumbar region at multiple levels Tarsal tunnel syndrome 06/11/13 Tarsal tunnel syndrome (06/11/13) Trochanteric bursitis 03/18/13 Upper respiratory tract infection (08/03/15) UTI (urinary tract infection) Vaginal atrophy Vitamin D deficiency Vitamin D deficiency Weakness Surgical History Arthrodesis right 2nd toe Cataract (01/07/14) FOLLOWED BY [employer] cervical repair (~10/2008) C6-C7 DISK; RECURRENT SURGERY Cholecystectomy (07/31/13) Endometrial Biopsy NEG H/O arthrodesis right second toe H/O Spinal surgery multiple spine surgeries; low back x 2; She had multilevel DJD and spinal stenosis; disc herniation. 2008-cervical repair; C6-C7 disc; recurrent surgery. History of bilateral tubal ligation 09/11/80 History of gynecologic surgery endometrial biopsy-neg History of hip surgery 11/10/15 left hip arthroplasty 12/04/15-placement of wound VAC to left hip History of orthopedic surgery 09/11/97 tarsal tunnel release Left eye surgery 12/31/17 Ligation of fallopian tube (~1980) Open Carpal Tunnel release Right wrist surgery 10/26/17 Rotator Cuff Repair (~1980) S/P CABG (coronary artery bypass graft) (01/03/19) 4 vessel CABG and LA appendage excision, Dr. Nav Wang, [facility], [place], [place] S/P carpal tunnel release S/P cholecystectomy 09/11/12 S/P rotator cuff repair 09/11/80 SPINE SURGERY Multiple spine surgeries, low back x 2. She had multilevel DJD and spinal stenosis, disc herniation Status post incision and drainage 12/04/15 left hip surgical wound dehiscence and infection tarsal tunnel release (~1997) Total replacement of hip [facility]; LEFT HIP Family History Mother Diabetes Essential hypertension Personal history of malignant neoplasm KIDNEY/LIVER/BRAIN Heart disease Hyperlipidemia Stroke Asthma Father Diabetes Essential hypertension Personal history of malignant neoplasm BONE Heart disease Asthma Sister Diabetes Essential hypertension Depression Heart disease Asthma Grandfather No problems noted. Grandfather No problems noted. Grandmother Personal history of malignant neoplasm UTERINE Grandmother Diabetes Aunt Personal history of malignant neoplasm BREAST Brother Hyperlipidemia Stroke Sister Asthma Son Asthma Daughter Depression Asthma Daughter Asthma Daughter Depression Neoplasm Asthma Brother No problems noted. 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
[2021-09-30] MEDS: Insulin Aspart 300 UNITS/3 ML PEN SC (11:57)
--- NOTE | 2021-09-30 12:39 | PDOC.HHF2F_ITS ---
Home Health Certification Home Health Certification: 1. Encounter Date and Reason I certify that Ann-Marie Griggs was seen by Marina Coker on 09/30/21 and that I had a [id number] encounter with this patient that meets the physician face to face encounter requirements. 2. Clinical Findings Supporting Skilled Need and Homebound Status I certify that home health services are medically necessary, include either intermittent alf and/or physical/speech therapy, and that this fortunato ent is homebound in that absences from the home require considerable and taxing effort and are infrequent or of short duration, or are attributable to the need to receive medical care. [X] (a) Attached documentation from encounter provides clinical findings supporting skilled need and homebound status (including what assistance patient requires to leave the home). The encounter with the patient was in whole, or in part, for the following medical condition, which is the primary reason for home health care: Weakness,Diarrhea Nursing Home: routine nursing evaluation, medication oversight. Physical and Occupational Therapy: routine evaluation and management Homebound: unable to safely leave the house unassisted d/t pain, unable to negotiate stairs. 3. Certification and Authentication I certify that I composed the above information based on my clinical judgement relating to this patient's medical condition and, if applicable, clinical findings communicated to me by the NPP or inpatient physician who performed the Home Health Referral. All further orders will be obtained through Laisha Mcmahon MD_(Community Based Physician - PCP)
--- NOTE | 2021-09-30 15:22 | PDOC.CMDIS ---
- If Service Date Differs Date of service: 09/30/21 Time of Service: 15:22 LACE Index Scoring Tool - Questions: Length of Stay (in days): 4 - 6 Acuity (Admit via E.D.?): Yes Comorbidities: Congestive Heart Failure, Chronic Pulmonary Disease E.D. 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 She was driven home via private vehicle by her daughter, and Donal Hillman met her at her home to provide a lift assist, coordinated by CM. She has been accepted at the [facility] for short term rehab, but they do not have bed availability. She was medically cleared by MD and PT to return home, but may go to SNF from home, if she feels she needs more assistance, once the [facility] has a bed available. She will follow up with Ortho, her PCP and discharge plan of care. She is happy to be going home. Patient/Family Education Needs: Review discharge instructions regarding activity levels and medications, discussion of self care needs including ask me three. Services Needed at Discharge: Home Health Care Services (HH PT, OT, CANAL EQUIPMENT MECHANIC), Transportation (private vehicle with lift assist)
--- NOTE | 2021-10-01 08:50 | PT.INDS ---
Date of service: 10/01/21 PT Notes Visit Reasons: Weakness,Diarrhea Physical Therapy Inpatient Discharge Summary Date: 10/01/21 Dates of Service: 09/27/2021 through 09/29/2021 This is a clinical summary of care provided for the duration of dates listed above. No charge was made in the completion of this documentation. Referring Doctor: Tiana Grey NP PT Orders: PT CONSULT: limited ability to ambulate Precautions: WBAT RLE Patient Profile/Admitting Diagnosis: Patient admitted from ER after a series of falls resulting in right knee pain. Patient was evaluated by Dr. Alvarez earlier today, and had her knee aspirated and injected. PMHX: All active Problems (Updated 09/26/21 @ 15:16 by Tiana Grey NP) (Discharge planning issues (Acute) Multiple falls (Acute) Acute knee pain (Acute) Acute UTI (Acute) Wound abscess (Acute) CHF (congestive heart failure) (Chronic) Discharge planning issues (Acute) IDDM (insulin dependent diabetes mellitus) (Chronic) DVT prophylaxis (Acute) Seizure (Chronic) Leukocytosis (Chronic) Pulmonary hypertension (Chronic) CKD (chronic kidney disease) stage 3, GFR 30-59 ml/min (Chronic) Cr about 2.5 Chronic obstructive lung disease (Chronic) Medical History (Updated 09/26/21 @ 15:16 by Tiana Grey NP) Abnormal mammography 08/10/06 Acute kidney injury superimposed on chronic kidney disease [id number] kidney injury Altered mental status Anemia Ankle pain (03/13/14) Annual physical exam (12/14/15) Atrial fibrillation Atrial flutter BMI 40.0-44.9, adult (12/02/14) CAD (coronary artery disease), [place] coronary artery Carpal tunnel syndrome Carpal tunnel syndrome (08/10/06) BILATERAL R S/P SURGERY Cervical disc disorder with myelopathy (08/21/08) S/P surgery x 2 Cervical spondylosis with myelopathy Chest pain Neg Stress test CKD stage 4 due to type 2 diabetes mellitus Congestive heart failure Constipation Dehydration Diabetes mellitus 09/20/10 Positive Microalbumin Diastolic CHF DNR no code (do not resuscitate) DVT (deep venous thrombosis) Dysuria Essential hypertension Folate deficiency (02/15/16) Gout Gout (07/06/11) Gram-positive bacteremia Greater trochanteric bursitis of left hip Hammer toe Left/right HAP (hospital-acquired pneumonia) (01/15/19) HCAP (healthcare-associated pneumonia) Heart failure with preserved ejection fraction, borderline, class III Hepatomegaly 06/10/04 Hip joint inflamed (09/03/15) Hip pain, left Hip pain, right Hyperglycemia Hyperlipidemia (08/10/00) Hypertension Hypomagnesemia Hypoxia Left hip pain Low back pain (04/10/03) DISC HERNIATION L4. MULTILEVEL DJD/SPINAL STENOSIS BY MRI; S/P surgery Lump in neck Macrocytic anemia Menopausal syndrome 07/11/03 Muscle fatigue 03/04/13 Myoclonic epileptic seizures Numbness and tingling in left upper extremity Pancreatic atrophy Posterior tibial tendon dysfunction 02/03/16 Postmenopausal bleeding neg. endometrial biopsy Postoperative wound dehiscence (12/23/15) Prerenal azotemia Primary osteoarthritis of left hip (09/17/15) Renal impairment (07/11/03) ADRENAL MASS. F/U W/ [place] positive microalbumin Restless leg syndrome Rotator cuff syndrome (08/01/09) Shingles Smoker (06/30/16) 01/17/17 1-2 cig/wk SOB (shortness of breath) Spinal stenosis of lumbar region (02/15/16) Spinal stenosis of lumbar region at multiple levels Tarsal tunnel syndrome 06/11/13 Tarsal tunnel syndrome (06/11/13) Trochanteric bursitis 03/18/13 Upper respiratory tract infection (08/03/15) UTI (urinary tract infection) Vaginal atrophy Vitamin D deficiency Vitamin D deficiency Weakness Social History/Home Situation: Patient lives with a friend in a single level home with 2 MARY. She is normally independent, but after a series of falls, has been reliant on FWW and assistance from her friend. She normally cooks, cleans, etc. Equipment Owned/DME: FWW, tub seat Subjective: NT. See most recent STOCK [employer] notes. Objective: General Observation: NT. See most recent STOCK [employer] notes. Mental Status: NT. See most recent STOCK [employer] notes. Pain: NT. See most recent STOCK [employer]IVER notes. ROM: Right Upper Extremity: WFL Left Upper Extremity: WFL Right Lower Extremity: In sitting position, patient demonstrates 80 degrees of each hip and knee flexion. She is unable to tolerate any PROM or AROM of the right knee due to pain, however, with use of recliner chair, she is assisted to -5 degrees knee extension with some difficulty. Left Lower Extremity: WFL Strength: Right Upper Extremity: WFL Left Upper Extremity: WFL Right Lower Extremity: Unable to perform quad set or SLR. Able to pump ankle and wiggle toes. Left Lower Extremity: Quads 3/5 or greater. HS 3/5 or greater. Ankle motions WFL. Bed Mobility/Transfers: patient declines assessment of mobility and transfers Gait: Able to tolerate up to 6 feet x 2 using FWW with WBAT on R LE. Balance: Static Sitting: good Dynamic Sitting: good Static Standing: unable Dynamic Standing: unable Assessment: Patient is a [id number] referred to physical therapy services with the diagnosis of limited ability to ambulate. Patient recently diagnosed with non-displaced fracture of medial femoral condyle in addition to joint effusion and degenerative changes of the knee. She underwent aspiration and injection just prior to PT consultation, and pain levels remained very high at time of consultation. She requires skilled PT intervention to maximize functional mobility, and anticipate that she will require rehab stay prior to returning home. She continues to demonstrate the following impairment level findings: 1. Decreased right knee ROM 2. joint effusion 3. decreased RLE strength 4. acute right knee pain Impairments are continuing to contribute to the following functional limitations: 1. unable to ambulate independently 2. unable to transfer independently 3. unable to manage stairs Goals: Goals X1 week 1. Supine-Sit : supervision MET 2. Sit-Supine supervision MET 3. Sit-Stand : supervision MET 4. Stand-Sit : supervision MET 5. Bed-Chair : min A with FWW MET 6. Chair-Bed : min A with FWW MET 7. Gait : min A with FWW x 20' MET DISCHARGE RECOMMENDATIONS: SNF for continued rehabilitation TREATMENT CODE/TIME: NC Thank you for the opportunity to participate in the care of this patient. Kathryn Sainz PT, DPT, CLT [facility] [place], [place]
== END 2021-09-30 13:18 | disposition home health service (06) | DRG 534 ==
LOC: ER 08:42 → MS 13:54
PROVIDERS: Nurse Practitioner Family; Admitting Provider Family Medicine; Emergency Provider Physician Assistant; PCP Family Medicine; Visit Provider Family Medicine
DX: I50.32 Chronic diastolic (congestive) heart failure; J44.0 Chronic obstructive pulmonary disease with (acute) lower respiratory infection; S72.434A Nondisplaced fracture of medial condyle of right femur, initial encounter for closed fracture; I13.0 Hypertensive heart and chronic kidney disease with heart failure and stage 1 through stage 4 chronic kidney disease, or unspecified chronic kidney disease; W18.30XA Fall on same level, unspecified, initial encounter; I27.20 Pulmonary hypertension, unspecified; R29.6 Repeated falls; N18.30 Chronic kidney disease, stage 3 unspecified; E11.22 Type 2 diabetes mellitus with diabetic chronic kidney disease; Z99.81 Dependence on supplemental oxygen; E66.01 Morbid (severe) obesity due to excess calories; Z68.39 Body mass index [BMI] 39.0-39.9, adult; M23.261 Derangement of other lateral meniscus due to old tear or injury, right knee; R53.1 Weakness; I25.10 Atherosclerotic heart disease of native coronary artery without angina pectoris; Z66 Do not resuscitate; E53.8 Deficiency of other specified B group vitamins; M10.9 Gout, unspecified; E78.5 Hyperlipidemia, unspecified; E55.9 Vitamin D deficiency, unspecified; B96.20 Unspecified Escherichia coli [E. coli] as the cause of diseases classified elsewhere
CPT/HCPCS: 20610; 36415; 73721; 80048; 80053; 83690; 85027; 87077; 87493; 87635; 94640; 97110; 97162; 99222; 99285; J3490; 73700; 81003; 81015; 83735; 85025; 87086; 87186; 99220; 99226; 99232; 99233; 99239; J1040; J1650

== ENCOUNTER 2021-10-03 07:43 | Inpatient (IN) | payer OTHER, MEDICAID, SELFPAY ==
[2021-10-03] VITALS (79 sets, daily range): BP systolic 99–122; BP diastolic 41–79; PULSE 54–65; RESP 8–23; TEMP 36–36.7; O2SAT 93–100
--- NOTE | 2021-10-03 08:00 | DI.RAD_ITS ---
Exam(s) XR ANKLE RT COMPLETE XR TIB/FIB RT EXAM: XR ANKLE RT COMPLETE and XR tib/fib RT CLINICAL HISTORY: deformity, pain. TECHNIQUE: 2D digital imaging was performed of the right ankle. Seven images were obtained. AP, la teral and oblique views were obtained. COMPARISON: CR,XR XR KNEE RT 4V+ from 09/25/2021 FINDINGS: BONES: There is an acute nondisplaced fracture through the proximal metadiaphyseal junction of the ri ght fibula. This was not present on the examination of the knee from 09/25/2021. There is an acute ob lique fracture of the distal fibula. It lies approximately 2 cm above the ankle joint. The fracture is mildly displaced laterally. There is a transverse displaced fracture of the medial malleolus. O n the oblique views there is also a nondisplaced fracture involving the distal metaphysis of the righ t tibia. JOINTS: There is medial subluxation of the tibia relative to the talus. Degenerative changes are see n at the talonavicular joint and the tarsometatarsal joints. There is a large enthesophyte at the in ferior aspect of the calcaneus. SOFT TISSUE: Vascular clips are seen in the soft tissues around the knee. Vascular phleboliths are a lso present. Overlying casting material does obscure the bony detail. IMPRESSION: 1. Fractures involving the distal tibia and fibula as described. 2. Nondisplaced fracture involving the proximal fibula. 3. Subluxation of the ankle joint as described above. DATA REPOSITORY: RADIATION DOSE DELIVERED:
--- NOTE | 2021-10-03 08:00 | DI.RAD_ITS ---
Exam(s) XR CHEST 1V IN DI DEPT EXAM: XR CHEST 1V IN DI DEPT CLINICAL HISTORY: ankle fracture, fall TECHNIQUE: 2D digital imaging was performed of the chest. One image was obtained. An AP view was ob tained. COMPARISON: CR,XR XR CHEST 2V PA LATERAL from 04/15/2021 FINDINGS: MEDIASTINUM: Normal. HEART: Normal. Status post CABG. PULMONARY VASCULATURE: Normal. LUNGS: Clear. PLEURAL SPACE: No pleural effusion or pneumothorax. BONE:Within normal limits for the patient's age. OTHER FINDINGS:Normal. IMPRESSION: No acute pulmonary findings. DATA REPOSITORY: RADIATION DOSE DELIVERED:
--- NOTE | 2021-10-03 08:00 | RT.EKG_ITS ---
APPROVED REPORT Exam: Resting ECG Reason for Exam: fall Patient Location: E HR:55 bpm ECG Measurements Heart Rate 55 AXIS VA 145 P -47 QRSd 89 QRS 70 QT 446 T 63 QTc 427 Conclusion Sinus bradycardia...P axis (-45,135), rate< 60
[2021-10-03] MEDS: fentaNYL 100 MCG/2 ML VIAL IVP (08:11)
[2021-10-03] MEDS: Normal Saline 1,000 ML 150 ML IV (08:12)
[2021-10-03 08:16] LABS: Abs Immature Grans 0.14 10^3/uL (0.0-0.06); Absolute Basophil Count 0.11 10^3/uL (0.0-0.2); Absolute Eosinophil Count 0.78 10^3/uL (0.0-0.7); Absolute Lymphocyte Count 1.44 10^3/uL (1.2-3.4); Absolute Monocyte Count 0.88 10^3/uL (0.1-0.8); Absolute Neutrophil Count 8.58 10^3/uL (1.2-6.7); Basophils % 0.9; Eosinophils % 6.5; HCT 38.5 % (36.0-46.0); HGB 10.5 g/dL (11.2-15.7); Immature Grans % 1.2; Lymphocytes % 12.1; MCH 22.5 pg (27.0-33.0); MCHC 27.3 % (32.0-36.0); MCV 82.6 fL (80-95); MPV 9.6 fL (8.0-11.0); Monocytes % 7.4; Neutrophils % 71.9; Nucleated RBC 0 %; Platelet Count 530 10^3/uL (130-400); RBC 4.66 10^6/uL (3.93-5.22); RDW 17.9 % (11.7-14.6); RDW-SD 52.7 fL; WBC 11.93 10^3/uL (4.4-10.8)
--- NOTE | 2021-10-03 08:23 | W.ED.GENAD ---
Discharge Plan Disposition Patient Disposition: [facility] INPATIENT Condition: Improving Discharge Details Clinical Impression: Closed bimalleolar fracture of right ankle Primary Care Provider: Laisha Mcmahon ED Provider: Misbah Arellano Home Meds and New Rx's Prescriptions: No Action (DME) lancets 25 gauge misc See Dose Instructions .ROUTE .MEDSUPPLY Qty: 100 RF: 5 (DME) lancets [OneTouch Delica Lancets] 33 gauge misc See Dose Instructions .ROUTE DAILY Qty: 100 RF: 0 B-complex with vitamin C [Super B Complex-Vitamin C] Tablet 1 tab PO DAILY RF: 0 albuterol sulfate 2.5 mg /3 mL (0.083 %) solution for nebulization 2.5 mg INHALATION Q2H PRN PRN (Reason: shortness of breath or wheezing) Qty: 180 RF: 4 (DME) Blood Glucose Test Strip See Dose Instructions .ROUTE .MEDSUPPLY Qty: 300 RF: 5 ergocalciferol (vitamin D2) [Vitamin D2] 1,250 mcg (50,000 unit) capsule 50,000 unit PO Qty: 36 RF: 4 epinephrine [EpiPen 2-Erick] 0.3 mg/0.3 mL auto-injector 0.3 mg IM ONCE Qty: 2 RF: 10 omeprazole 40 mg capsule,delayed release(DR/EC) 40 mg PO BID Qty: 180 RF: 4 metoprolol succinate 100 mg tablet extended release 24 hr 100 mg PO DAILY Qty: 90 RF: 3 gabapentin 100 mg capsule 100 mg PO TID Qty: 270 RF: 0 metolazone 5 mg tablet 5 mg PO .4 times week PRN (Reason: chf) RF: 0 mupirocin 2 % ointment 1 applic topical BID Qty: 22 RF: 3 Creon 6,000-19,000 -30,000 unit capsule,delayed release(DR/EC) 1 cap PO TID Qty: 270 RF: 5 Slow-Mag 71.5 mg tablet,delayed release (DR/EC) 71.5 mg PO BID Qty: 180 RF: 4 meclizine 12.5 mg tablet 12.5 mg PO TID PRN (Reason: dizziness) Qty: 60 RF: 3 (DME) pen needle, diabetic [1st Tier Unifine Pentips] 31 gauge x 1/4 needle See Dose Instructions .ROUTE .MEDSUPPLY Qty: 450 RF: 5 Incruse Ellipta 62.5 mcg/actuation blister with device 1 inh inhalation DAILY Qty: 30 RF: 12 Januvia 25 mg tablet 25 mg PO DAILY Qty: 90 RF: 4 Basaglar KwikPen U-100 Insulin 100 unit/mL (3 mL) insulin pen 35 unit SC BID Qty: 90 RF: 4 insulin aspart U-100 [Novolog Flexpen U-100 Insulin] 100 unit/mL (3 mL) insulin pen 15 unit SC TID Qty: 30 RF: 5 budesonide-formoterol [Symbicort] 160-4.5 mcg/actuation HFA aerosol inhaler 2 puff inhalation BID RF: 0 levetiracetam [Keppra] 500 mg tablet 500 mg PO BID Qty: 180 RF: 5 torsemide 100 mg tablet 100 mg PO DAILY Qty: 90 RF: 6 potassium chloride [K-Tab] 20 mEq tablet extended release 40 meq PO BID Qty: 180 RF: 4 allopurinol 100 mg tablet 100 mg PO DAILY Qty: 90 RF: 12 triamcinolone acetonide 0.1 % cream 1 applic topical BID Qty: 80 RF: 0 isosorbide mononitrate 10 mg tablet 10 mg PO BID Qty: 180 RF: 5 atorvastatin 40 mg tablet 40 mg PO DAILY Qty: 90 RF: 6 duloxetine 60 mg capsule,delayed release(DR/EC) 60 mg PO DAILY Qty: 90 RF: 12 ropinirole 2 mg tablet 2 mg PO QPM PRN (Reason: restless leg(s)) Qty: 90 RF: 5 polyethylene glycol 3350 [Miralax] 17 gram Powder In Packet 1 g PO PRN PRNRF: 0 aspirin 81 mg Tablet,Delayed Release (Dr/Ec) 81 mg PO DAILY Qty: 0 RF: 0 hydrocodone-acetaminophen 10-325 mg Tablet 1 tab PO Q6H PRNQty: 12 RF: 0 acetaminophen [Tylenol Extra Strength] 500 mg Tablet 500 mg PO TID Qty: 0 RF: 0 calcium nwla-N4-xcnelyoru vitaliy 133 mg calcium -133 unit-67 mg Capsule 2 cap PO DAILY RF: 0 Medical Decision Making 70-year-old female with a history of diabetes, coronary artery disease, chronic kidney disease, who has been convalescing at home with a walker and toe-touch weightbearing only for previous right knee injury. CT scan and MRI demonstrated fracture of the medial aspect of the medial femur. This is an equivalent avulsion fracture due to MCL pull per the orthopedic consultation note. This morning the patient had urgency to urinate, will use her walker to get to the bathroom and states she missed the toilet falling backwards the floor and deviating her right ankle with immediate pain. She denies other injury. She was brought by EMS with a pillow splint and had improvement of her pain following intramuscular and intranasal fentanyl. Due to generalized weakness and her recent right knee injury, patient has had 3 falls this week at home. She arrives with a deviated right ankle, with tenting of the skin and obvious displaced fracture.. IV access was established, patient given further parenteral analgesia with 100 mcg of fentanyl and closed reduction and splinting was performed at the bedside. X-ray: Distal tibia and fibula fractures present. There is also a new right proximal fibular fracture Patient will require admission, with bedrest. Tentative plan for operative repair w reduction and internal fixation once swelling has diminished. Lab Data Lab results reviewed: Yes I reviewed the patient's lab results. Labs: Laboratory Results - last 24 hr 10/03/21 10/03/21 08:00 08:00 WBC 11.93 H RBC 4.66 Hgb 10.5 L Hct 38.5 MCV 82.6 MCH 22.5 L MCHC 27.3 L RDW 17.9 H Plt Count 530 H MPV 9.6 Immature Gran % 1.2 Neutrophils % 71.9 Lymphocytes % 12.1 Monocytes % 7.4 Eosinophils % 6.5 Basophils % 0.9 Nucleated RBC % 0 Absolute Neutrophils 8.58 H Absolute Lymphocytes 1.44 Absolute Monocytes 0.88 H Absolute Eosinophils 0.78 H Absolute Basophils 0.11 Sodium 138 Potassium 4.5 Chloride 99 Carbon Dioxide 31.0 Anion Gap 8.0 BUN 67 H Creatinine 2.3 H Estimated GFR/1.73 m2 21.09 Glucose 157 H Calcium 9.2 Magnesium 1.9 Total Bilirubin 0.5 AST 21 ALT 51 Alkaline Phosphatase 140 H Troponin I < 50 Total Protein 8.0 Albumin 3.5 HPI General Mode of arrival: ambulatory. Date/Time Provider Initiated Documentation: 10/03/21 07:52. Information obtained by: patient. History of Present Illness 70 year old F presents to the emergency department with the chief complaint of Right ankle deformity and pain, previous right knee injury, described as moderate, Quality is described as constant, and is localized to the right and lower extremity. Patient reports no radiation. Patient started experiencing this minute(s) and it has been constant. Movement worsens symptoms . Patient notes denies chest pain, seizure, shortness of breath and syncope. Patient did receive the following treatments prior to arrival, other (Intranasal and intramuscular fentanyl) Related Data Home Medications Medication Instructions Recorded Confirmed lancets 33 gauge #100 each 12/18/18 10/03/21 polyethylene glycol 3350 [Miralax] 1 g PO PRN PRN 01/15/19 10/03/21 lancets 25 gauge #100 each 01/29/19 10/03/21 B-complex with vitamin C 1 tab PO DAILY 09/19/19 10/03/21 calcium uxbh-B7-mzukmjxav vitaliy 2 cap PO DAILY 03/11/20 10/03/21 aspirin 81 mg PO DAILY #0 tab 06/01/20 10/03/21 albuterol sulfate 2.5 mg INHALATION Q2H PRN PRN #180 09/10/20 10/03/21 ml svhnyw-gdtabhdl-etkhnxu 1 cap PO TID #270 cap 10/01/20 10/03/21 6,000-19,000-30,000 unit capsule,delayed rel magnesium chloride 71.5 mg 71.5 mg PO BID #180 tab 10/19/20 10/03/21 (magnesium chloride) tablet,delayed release meclizine 12.5 mg tablet 12.5 mg PO TID PRN #60 tab 12/07/20 10/03/21 pen needle, diabetic 31 gauge x #450 each 12/10/20 10/03/21 1/4 budesonide-formoterol HFA 160 2 puff INHALATION BID 01/07/21 10/03/21 mcg-4.5 mcg/actuation aerosol inhaler insulin aspart U-100 100 unit/mL 15 unit SC TID #30 ml 01/07/21 10/03/21 (3 mL) subcutaneous pen insulin glargine 100 unit/mL (3 35 unit SC BID #90 ml 01/07/21 10/03/21 mL) subcutaneous pen sitagliptin 25 mg tablet 25 mg PO DAILY #90 tab 01/07/21 10/03/21 umeclidinium 62.5 mcg/actuation 1 inh INHALATION DAILY #30 ea 01/07/21 10/03/21 blister powder for inhalation epinephrine 0.3 mg/0.3 mL 0.3 mg IM ONCE #2 ea 02/04/21 10/03/21 injection, auto-injector metoprolol succinate 100 mg 100 mg PO DAILY #90 tab 02/18/21 10/03/21 tablet,extended release 24 hr omeprazole 40 mg capsule,delayed 40 mg PO BID #180 cap 02/18/21 10/03/21 release levetiracetam 500 mg tablet 500 mg PO BID #180 tab 02/22/21 10/03/21 torsemide 100 mg tablet 100 mg PO DAILY #90 tab 03/19/21 10/03/21 blood sugar diagnostic #300 each 04/08/21 10/03/21 ergocalciferol (vitamin D2) 1,250 50,000 unit PO M-W-F #36 tab-cap 04/08/21 10/03/21 mcg (50,000 unit) capsule potassium chloride 20 mEq 40 meq PO BID #180 tab 04/21/21 10/03/21 tablet,extended release allopurinol 100 mg tablet 100 mg PO DAILY #90 tab-cap 05/27/21 10/03/21 metolazone 5 mg tablet 5 mg PO .4 times week PRN tab 05/28/21 10/03/21 gabapentin 100 mg capsule 100 mg PO TID #270 cap 06/07/21 10/03/21 triamcinolone acetonide 0.1 % 1 applic TOPICAL BID #80 g 07/20/21 10/03/21 topical cream atorvastatin 40 mg tablet 40 mg PO DAILY #90 tab-cap 08/03/21 10/03/21 duloxetine 60 mg capsule,delayed 60 mg PO DAILY #90 tab-cap 08/03/21 10/03/21 release isosorbide mononitrate 10 mg tablet 10 mg PO BID #180 tab 08/03/21 10/03/21 ropinirole 2 mg tablet 2 mg PO QPM PRN #90 tab 08/03/21 10/03/21 mupirocin 2 % topical ointment 1 applic TOPICAL BID #22 g 08/24/21 10/03/21 acetaminophen [Tylenol Extra 500 mg PO TID #0 tab 09/30/21 10/03/21 Strength] hydrocodone-acetaminophen 1 tab PO Q6H PRN #12 tab 09/30/21 10/03/21 Previous Rx's Medication Instructions Recorded lancets 33 gauge #100 each 12/18/18 lancets 25 gauge #100 each 01/29/19 aspirin 81 mg PO DAILY #0 tab 06/01/20 albuterol sulfate 2.5 mg INHALATION Q2H PRN PRN #180 09/10/20 ml ayjfap-glzblqfa-ehpmhen 1 cap PO TID #270 cap 10/01/20 6,000-19,000-30,000 unit capsule,delayed rel magnesium chloride 71.5 mg 71.5 mg PO BID #180 tab 10/19/20 (magnesium chloride) tablet,delayed release meclizine 12.5 mg tablet 12.5 mg PO TID PRN #60 tab 12/07/20 pen needle, diabetic 31 gauge x #450 each 12/10/2009/14 insulin aspart U-100 100 unit/mL 15 unit SC TID #30 ml 01/07/21 (3 mL) subcutaneous pen insulin glargine 100 unit/mL (3 35 unit SC BID #90 ml 01/07/21 mL) subcutaneous pen sitagliptin 25 mg tablet 25 mg PO DAILY #90 tab 01/07/21 umeclidinium 62.5 mcg/actuation 1 inh INHALATION DAILY #30 ea 01/07/21 blister powder for inhalation epinephrine 0.3 mg/0.3 mL 0.3 mg IM ONCE #2 ea 02/04/21 injection, auto-injector metoprolol succinate 100 mg 100 mg PO DAILY #90 tab 02/18/21 tablet,extended release 24 hr omeprazole 40 mg capsule,delayed 40 mg PO BID #180 cap 02/18/21 release levetiracetam 500 mg tablet 500 mg PO BID #180 tab 02/22/21 torsemide 100 mg tablet 100 mg PO DAILY #90 tab 03/19/21 blood sugar diagnostic #300 each 04/08/21 ergocalciferol (vitamin D2) 1,250 50,000 unit PO M-W-F #36 tab-cap 04/08/21 mcg (50,000 unit) capsule potassium chloride 20 mEq 40 meq PO BID #180 tab 04/21/21 tablet,extended release allopurinol 100 mg tablet 100 mg PO DAILY #90 tab-cap 05/27/21 gabapentin 100 mg capsule 100 mg PO TID #270 cap 06/07/21 triamcinolone acetonide 0.1 % 1 applic TOPICAL BID #80 g 07/20/21 topical cream atorvastatin 40 mg tablet 40 mg PO DAILY #90 tab-cap 08/03/21 duloxetine 60 mg capsule,delayed 60 mg PO DAILY #90 tab-cap 08/03/21 release isosorbide mononitrate 10 mg tablet 10 mg PO BID #180 tab 08/03/21 ropinirole 2 mg tablet 2 mg PO QPM PRN #90 tab 08/03/21 mupirocin 2 % topical ointment 1 applic TOPICAL BID #22 g 08/24/21 acetaminophen [Tylenol Extra 500 mg PO TID #0 tab 09/30/21 Strength] hydrocodone-acetaminophen 1 tab PO Q6H PRN #12 tab 09/30/21 Allergies Allergy/AdvReac Type Severity Reaction Status Date / Time oxycodone Allergy Severe Psychosis Verified 09/26/21 09:03 venom-honey bee Allergy Severe ANAPHYLAXIS Verified 09/26/21 09:03 adhesive Allergy BLISTERS Verified 09/26/21 09:03 General Stated Complaint: Trauma STEPHANIE: 2 Review of Systems Narrative: Has been using a walker and toe-touch weightbearing only on right leg due to knee injury. Fell this morning. Denies syncope. No neck, chest, back or abdominal pain. No new knee pain. PFSH All Active Problems (Updated 10/03/21 @ 09:24 by Misbah Arellano MD) Closed bimalleolar fracture of right ankle (Acute) Closed avulsion fracture of condyle of right femur (Acute) Cyst of lateral meniscus of right knee (Acute) Tear of lateral meniscus of right knee (Acute) Medial meniscus tear (Acute) Wound abscess (Acute) Discharge planning issues (Acute) Medical History Abnormal mammography 08/10/06 Acute kidney injury superimposed on chronic kidney disease Mshgz-dz-cdnoqbr kidney injury Altered mental status Anemia Ankle pain (03/13/14) Annual physical exam (12/14/15) Atrial fibrillation Atrial flutter BMI 40.0-44.9, adult (12/02/14) CAD (coronary artery disease), [place] coronary artery Carpal tunnel syndrome Carpal tunnel syndrome (08/10/06) BILATERAL R S/P SURGERY Cervical disc disorder with myelopathy (08/21/08) S/P surgery x 2 Cervical spondylosis with myelopathy Chest pain Neg Stress test CHF (congestive heart failure) Chronic obstructive lung disease CKD (chronic kidney disease) stage 3, GFR 30-59 ml/min Cr about 2.5 CKD stage 4 due to type 2 diabetes mellitus Congestive heart failure Constipation Dehydration Diabetes mellitus 09/20/10 Positive Microalbumin Diastolic CHF DNR no code (do not resuscitate) DVT (deep venous thrombosis) Dysuria Essential hypertension Folate deficiency (02/15/16) Gout Gout (07/06/11) Gram-positive bacteremia Greater trochanteric bursitis of left hip Hammer toe Left/right HAP (hospital-acquired pneumonia) (01/15/19) HCAP (healthcare-associated pneumonia) Heart failure with preserved ejection fraction, borderline, class III Hepatomegaly 06/10/04 Hip joint inflamed (09/03/15) Hip pain, left Hip pain, right Hyperglycemia Hyperlipidemia (08/10/00) Hypertension Hypomagnesemia Hypoxia IDDM (insulin dependent diabetes mellitus) Left hip pain Low back pain (04/10/03) DISC HERNIATION L4. MULTILEVEL DJD/SPINAL STENOSIS BY MRI; S/P surgery Lump in neck Macrocytic anemia Menopausal syndrome 07/11/03 Multiple falls Muscle fatigue 03/04/13 Myoclonic epileptic seizures Numbness and tingling in left upper extremity Palliative care patient Pancreatic atrophy Posterior tibial tendon dysfunction 02/03/16 Postmenopausal bleeding neg. endometrial biopsy Postoperative wound dehiscence (12/23/15) Prerenal azotemia Primary osteoarthritis of left hip (09/17/15) Pulmonary hypertension Renal impairment (07/11/03) ADRENAL MASS. F/U W/ KINLAW positive microalbumin Restless leg syndrome Rotator cuff syndrome (08/01/09) Seizure Shingles Smoker (06/30/16) 01/17/17 1-2 cig/wk SOB (shortness of breath) Spinal stenosis of lumbar region (02/15/16) Spinal stenosis of lumbar region at multiple levels Tarsal tunnel syndrome 06/11/13 Tarsal tunnel syndrome (06/11/13) Trochanteric bursitis 03/18/13 Upper respiratory tract infection (08/03/15) UTI (urinary tract infection) Vaginal atrophy Vitamin D deficiency Vitamin D deficiency Weakness Surgical History Arthrodesis right 2nd toe Cataract (01/07/14) FOLLOWED BY [employer] cervical repair (~10/2008) C6-C7 DISK; RECURRENT SURGERY Cholecystectomy (07/31/13) Endometrial Biopsy NEG H/O arthrodesis right second toe H/O Spinal surgery multiple spine surgeries; low back x 2; She had multilevel DJD and spinal stenosis; disc herniation. 2009-cervical repair; C6-C7 disc; recurrent surgery. History of bilateral tubal ligation 09/11/80 History of gynecologic surgery endometrial biopsy-neg History of hip surgery 11/10/15 left hip arthroplasty 12/04/15-placement of wound VAC to left hip History of orthopedic surgery 09/11/97 tarsal tunnel release Left eye surgery 12/31/17 Ligation of fallopian tube (~1980) Open Carpal Tunnel release Right wrist surgery 10/26/17 Rotator Cuff Repair (~1980) S/P CABG (coronary artery bypass graft) (01/03/19) 4 vessel CABG and LA appendage excision, Dr. Nav Wang, [facility], [place], [place] S/P carpal tunnel release S/P cholecystectomy 09/11/12 S/P rotator cuff repair 09/11/80 SPINE SURGERY Multiple spine surgeries, low back x 2. She had multilevel DJD and spinal stenosis, disc herniation Status post incision and drainage 12/04/15 left hip surgical wound dehiscence and infection tarsal tunnel release (~1997) Total replacement of hip [facility]; LEFT HIP Family History Mother Diabetes Essential hypertension Personal history of malignant neoplasm KIDNEY/LIVER/BRAIN Heart disease Hyperlipidemia Stroke Asthma Father Diabetes Essential hypertension Personal history of malignant neoplasm BONE Heart disease Asthma Sister Diabetes Essential hypertension Depression Heart disease Asthma Grandfather No problems noted. Grandfather No problems noted. Grandmother Personal history of malignant neoplasm UTERINE Grandmother Diabetes Aunt Personal history of malignant neoplasm BREAST Brother Hyperlipidemia Stroke Sister Asthma Son Asthma Daughter Depression Asthma Daughter Asthma Daughter Depression Neoplasm Asthma Brother No problems noted. 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: [employer] Pets and animals: Yes Pets and animals: cat(s), dog(s) and horse(s) What is your relationship status?: Panel score (0-1 are the most socially isolated patients): 0 What type of physical activity do you participate in: none, walking and additional Details: would like to start now that it's warm Duration: 15-30 minutes/day Saniya/Gnosticism: Temple Special saniya needs: No Seatbelt use: always Do you feel safe at home: Yes Do you feel safe in your relationship?: Yes Additional Social history: recently moved out and is now living with a friend Exam Narrative Exam Narrative: GEN: awake, alert, oriented 3. Pleasant, well groomed, interactive. HEAD: Normocephalic, atraumatic ENT: Mucous membranes moist, oropharynx unremarkable, External ear exam unremarkable EYES: PERRL, EOMI NECK: Full ROM, no HAY, no menigismus CHEST/RESP: Nontender, clear to auscultation bilateral, no wheeze/rhonchi/rales CARDIOVASCULAR: RRR, no murmur, rub alfreda. 2+ Rad pulse bilateral ABDOMEN: Soft, nontender, no mass. +Bowel sounds EXT: Right medial knee tenderness but good range of motion of the knee. The right ankle is deviated laterally and externally rotated to the patient's right. Palpable DP and the patient has motion intact, sensation and Neuro: Grossly normal neurologic exam, conversant, interactive. Psych: Speech fluent, thoughts congruent, affect normal Course Vital Signs Vital signs: Vital Signs Temperature 36.1 C L 10/03/21 07:43 Pulse 58 L 10/03/21 07:43 Respiratory Rate 20 10/03/21 07:43 Blood Pressure 115/53 L 10/03/21 07:43 Pulse Oximetry 99 10/03/21 07:43 Temperature 36.1 C L 10/03/21 07:43 Temperature Source Temporal Artery Scan 10/03/21 07:43 Pulse 58 L 10/03/21 07:43 Respiratory Rate 20 10/03/21 07:43 Respiratory Effort 10/03/21 07:57 Blood Pressure 115/53 L 10/03/21 07:43 Blood Pressure Position Supine 10/03/21 07:43 Pulse Oximetry 99 10/03/21 07:43 Oxygen Delivery Method Nasal Cannula 10/03/21 07:43 Oxygen Flow Rate 2 10/03/21 07:43 Pain Level 10 10/03/21 08:11 Lab/Test Results Lab/Test Results: Laboratory Tests Range/Units 10/03/21 08:00 WBC (4.4-10.8) 10^3/uL 11.93 H RBC (3.93-5.22) 10^6/uL 4.66 Hgb (11.2-15.7) g/dL 10.5 L Hct (36.0-46.0) % 38.5 MCV (80-95) fL 82.6 MCH (27.0-33.0) pg 22.5 L MCHC (32.0-36.0) % 27.3 L RDW (11.7-14.6) % 17.9 H Plt Count (130-400) 10^3/uL 530 H MPV (8.0-11.0) fL 9.6 Immature Gran % 1.2 Neutrophils % 71.9 Lymphocytes % 12.1 Monocytes % 7.4 Eosinophils % 6.5 Basophils % 0.9 Nucleated RBC % % 0 Absolute Neutrophils (1.2-6.7) 10^3/uL 8.58 H Absolute Lymphocytes (1.2-3.4) 10^3/uL 1.44 Absolute Monocytes (0.1-0.8) 10^3/uL 0.88 H Absolute Eosinophils (0.0-0.7) 10^3/uL 0.78 H Absolute Basophils (0.0-0.2) 10^3/uL 0.11 Procedures Orthopedic Fracture Reduction Fracture #1: Time Out Performed: Yes Side: right Fracture Reduction Location: tibia and fibula Analgesia: other (fentanyl) Technique: direct manipulation Post Reduction X-rays Demonstrate: acceptable reduction Post-reduction neuro exam: intact Post-reduction vascular exam: intact Splint Applied: Yes Patient Tolerated Procedure: well
[2021-10-03 08:32] LABS: ALT 51 U/L (14-59); AST 21 U/L (15-37); Albumin 3.5 g/dL (3.4-5.0); Alkaline Phosphatase 140 U/L (46-116); BUN 67 mg/dL (7-18); Bilirubin, Total 0.5 mg/dL (0.2-1.0); CREATININE 2.3 mg/dL (0.55-1.02); Calcium 9.2 mg/dL (8.5-10.1); Chloride 99 mmol/L (98-107); Estimated GFR 21.09 (mL/min/1.73m2); Glucose 157 mg/dL (74-106); Magnesium 1.9 mg/dL (1.8-2.4); Potassium 4.5 mmol/L (3.5-5.1); Sodium 138 mmol/L (136-145); Troponin I < 50 ng/L (<or=60)
--- NOTE | 2021-10-03 09:21 | DI.VRAD_ITS ---
PROCEDURE INFORMATION: Exam: XR Right Tibia and Fibula Exam date and time: 10/03/2021 8:48 AM Age: 70 years old Clinical indication: Other: Fall, prev distal femur inj, R ankle pain TECHNIQUE: Imaging protocol: XR Right tibia and fibula. Views: 2 views. COMPARISON: 1. MR LOWER JOINT RT WO 09/27/2021 11:[address] of the knee dated 09/26/2021. 3. X-ray of the knee dated 09/25/2021. FINDINGS: Bones/joints: Casting material obscuring fine bony detail. Obliquely oriented nondisplaced fracture through the proximal lateral fibular metadiaphyseal region, not present on prior exam on 09/25/2021. No definitive extension to the medial margin of the proximal right fibula. Obliquely oriented fracture through the distal fibular diaphysis with likely extension to the tibiofibular syndesmosis. Fracture through the distal tibial metaphysis noted. Fracture noted through the medial malleolus. Soft tissues: Vascular phleboliths noted. Surgical clips in the upper medial soft tissues adjacent to the proximal tibial metadiaphysis.. IMPRESSION: 1. Obliquely oriented nondisplaced fracture through the proximal lateral fibular metadiaphyseal region, not present on prior exam on 09/25/2021. 2. Distal fibular fracture with possible extension to the tibiofibular syndesmosis. 3. Fracture through the anterior distal tibial metaphysis. 4. Fracture through the medial malleolus. Dictated and Authenticated by: Kiran Conroy MD. Ordering:WINIFRED Crawley MD
--- NOTE | 2021-10-03 09:22 | DI.VRAD_ITS ---
PROCEDURE INFORMATION: Exam: XR Chest Exam date and time: 10/03/2021 8:05 AM Age: 70 years old Clinical indication: Other: Ankle fracture, fall; Prior surgery; Surgery date: 6+ months; Surgery type: Open heart TECHNIQUE: Imaging protocol: XR of the chest. Views: 1 view. COMPARISON: CR XR CHEST 2V PA LATERAL 04/15/2021 1:34 AM FINDINGS: Lungs: The lung parenchyma is clear. Pleural spaces: No pneumothorax. No pleural effusion. Heart/Mediastinum: The cardiomediastinal silhouette is within normal limits. Bones/joints: Cervical spinal fixation hardware noted. Surgical clips overlying the right thoracic inlet. Median sternotomy wires and postsurgical changes in the mediastinum identified. IMPRESSION: No acute cardiopulmonary abnormality identified. Dictated and Authenticated by: Kiran Conroy MD. Ordering:WINIFRED Crawley MD
--- NOTE | 2021-10-03 09:25 | DI.VRAD_ITS ---
PROCEDURE INFORMATION: Exam: XR Right Ankle Exam date and time: 10/03/2021 8:05 AM Age: 70 years old Clinical indication: Other: Deformity, pain TECHNIQUE: Imaging protocol: XR Right ankle. Views: 3 or more views. COMPARISON: MR LOWER JOINT RT WO 09/27/2021 11:34 AM FINDINGS: Bones/joints: Casting material overlying the ankle obscuring fine bony detail. Obliquely oriented , mildly displaced fracture through the distal fibula with extension to the tibiofibular syndesmosis. Displaced fracture of the medial malleolus noted in the distal tibia. Malalignment of the ankle mortise. Subtle nondisplaced fracture through the anterior tibial metaphysis. Medial subluxation of the tibia to the talus. Calcaneal enthesophyte noted. Degenerative changes at the talonavicular joint. Soft tissues: Not well visualized due to overlying casting material. IMPRESSION: 1. Fracture of the distal fibula with extension to the tibiofibular syndesmosis. 2. Displaced fracture of the medial malleolus of the distal tibia. 3. Malalignment of the ankle mortise. 4. Subtle nondisplaced fracture through the anterior tibial metaphysis. Dictated and Authenticated by: Kiran Conroy MD. Ordering:WINIFRED Crawley MD
--- NOTE | 2021-10-03 10:01 | SUR.PHASEI ---
Report given to Mireya NGUYEN. Pt going to Med Surg 208
[2021-10-03 10:02] LABS: Bilirubin Negative (Negative); Blood Negative (Negative); Clarity Sl Cloudy (Clear); Glucose Negative (Negative); Ketones Negative (Negative); Leukocyte Esterase Small (Negative); Nitrite Negative (Negative); Urobilinogen 0.2 EU/dL (Up TO 0.2)
[2021-10-03] MEDS: HYDROmorphone 2 MG/ML VIAL 0.5 MG IVP (10:04)
[2021-10-03 10:06] LABS: Source Nasal/Nares
[2021-10-03 10:14] LABS: RBC 0-2 HPF (0-2)
[2021-10-03 10:15] LABS: Bacteria Many HPF (Negative); Crystals Negative HPF (Negative); Mucus Negative (Negative)
[2021-10-03 10:16] LABS: C & S Indicated? Yes
[2021-10-03 10:59] LABS: COVID-19 PCR Negative (Negative); Influenza A PCR Negative (Negative); Influenza B PCR Negative (Negative); RSV PCR Negative (Negative)
[2021-10-03] MEDS: Torsemide 100 MG TAB PO (11:36)
[2021-10-03] MEDS: DULoxetine 30 MG CAP 60 MG PO (11:36)
[2021-10-03] MEDS: Omeprazole 20 MG CAPCR 40 MG PO ×2 (11:37→20:13)
[2021-10-03] MEDS: Creon, Lipase 6,000 CAPCR 1 CAP PO ×3 (11:37→20:13)
[2021-10-03] MEDS: Atorvastatin 40 MG TAB PO (11:37)
[2021-10-03] MEDS: Isosorbide Mononitrate 10 MG TAB PO ×2 (11:37→20:14)
[2021-10-03] MEDS: Aspirin E.C. 81 MG TABEC PO (11:37)
[2021-10-03] MEDS: Metoprolol CR 100 MG TABCR PO (11:37)
[2021-10-03] MEDS: Gabapentin 100 MG CAP PO ×3 (11:37→20:14)
[2021-10-03] MEDS: Allopurinol 100 MG TAB PO (11:37)
[2021-10-03] MEDS: Enoxaparin 30 MG/0.3 ML SYR SC (11:38)
[2021-10-03] MEDS: HYDROcodone 10/Acetaminophen 325 TAB PO (11:38)
[2021-10-03] MEDS: HYDROmorphone 2 MG/ML VIAL IVP (12:59)
[2021-10-03] MEDS: levETIRAcetam 500 MG TAB PO ×2 (13:00→20:14)
--- NOTE | 2021-10-03 13:04 | HPE_ITS ---
Date of service: 10/03/21 Time of Service: 12:00 Assessment and Plan Assessment and plan (1) Closed bimalleolar fracture of right ankle: Start date: 10/03/21 Start time: 12:00 Status: Acute Assessment and plan: Patient fell while trying to get on toilet and broke right ankle. Seen last week and found to have occult fx of right knee with meniscus tear. Followed by Dr kwon who will see her tomorrow. Leg in cast. Catheter in place. On bed rest Elevated on pillows Multiple modlalities for pain Will make NPO after MN with LR for am in care patient goes to surgery tomorrow, Hold enoxarparin. If no surgery will d/c orders and resume diet and enoxparan IS ordered as well (2) Medial meniscus tear: Start date: 10/03/21 Start time: 12:00 Status: Acute Assessment and plan: as gonzalez (3) Essential hypertension: Start date: 10/03/21 Start time: 12:00 Status: Chronic Assessment and plan: continue home medications (4) CAD (coronary artery disease), pamunkey coronary artery: Start date: 10/03/21 Start time: 12:00 Status: Chronic Assessment and plan: continue home medication, monitor daily wts and give doses of metalzaone as needed as patient easily goes into diasotlic HR> Qualifiers: [place] vs. transplanted heart: pam[place]key heart Associated angina: without angina Qualified Code(s): I25.10 - Atherosclerotic heart disease of pam[place]key coronary artery without angina pectoris (5) Restless leg syndrome: Start date: 10/03/21 Start time: 12:00 Assessment and plan: Continue reopiriole (6) Seizure: Start date: 10/03/21 Start time: 15:20 Assessment and plan: continue keppra (7) Pulmonary hypertension: Start date: 10/03/21 Start time: 15:20 Assessment and plan: continue oxygen, diuretics, daily wts and monitoring fluid status (8) Palliative care patient: Start date: 10/03/21 Start time: 12:00 Assessment and plan: Has been a patient of Dr. Saavedra for many years will consult for continuity of care. (9) Diastolic CHF: Start date: 10/03/21 Start time: 12:00 Assessment and plan: as above daily wt, diuretics, extra diuretics as needed, fluid restriction Qualifiers: Heart failure chronicity: chronic Qualified Code(s): I50.32 - Chronic diastolic (congestive) heart failure (10) Diabetes mellitus: Start date: 10/03/21 Start time: 12:00 Status: Chronic Assessment and plan: Continue home insulin BID dosing, HH/CHO diet. 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 but they are still close. above discussed with Dr. Mims History of Present Illness History of Present Illness Chief Complaint: Ankle fx, fall Narrative: 70 y.o female, recently admitted for fall with occutl fx and meniscus tear. She wanted to go to [facility] however they are closed at this time so she opted to go home. Returns today d/t fall when getting on toilet resulted in closed bimalleolar fx or rigtht ankle which is also the leg of her knee fx. Kim was spoken with in ED and stated she is to be on bed rest with gonzalez in place. RLE is in cast at this time. Elevated above level of Heart. Kim division field inspector tomorrow. Will see patient then. Labs in Ed remarkable for Leukocytosis of 11 which is baseline. BUN slightly elevated, however creatinine is normalized. Alk phosp slightly high. U/a normal. She has been asked to be admitted to hospitalists service for further management. Dr. Kwon has been consulted for tomorrow. She is on bed rest with catheter placement. Elevate leg above heart. Ice QID. Pain management with multiple modalities. Unsure if she will require surgery tomorrow; therefore will make NPO after MN, LR at 50 in am. Hold enoxaparin for am until if known for surgery. Review of Systems All systems reviewed & are unremarkable except as noted in HPI and below PFSH All Active Problems (Updated 10/03/21 @ 15:24 by Tiana Grey NP) Essential hypertension (Chronic 06/13/13) Diabetes mellitus (Chronic 09/20/10) DVT prophylaxis (Acute) CAD (coronary artery disease), pamun[place] coronary artery (Chronic) Closed bimalleolar fracture of right ankle (Acute) Closed avulsion fracture of condyle of right femur (Acute) Cyst of lateral meniscus of right knee (Acute) Tear of lateral meniscus of right knee (Acute) Medial meniscus tear (Acute) Wound abscess (Acute) Discharge planning issues (Acute) Medical History Abnormal mammography 08/10/06 Acute kidney injury superimposed on chronic kidney disease Csfgw-ke-ugqrqkd kidney injury Altered mental status Anemia Ankle pain (03/13/14) Annual physical exam (12/14/15) Atrial fibrillation Atrial flutter BMI 40.0-44.9, adult (12/02/14) CAD (coronary artery disease), pamunkey coronary artery Carpal tunnel syndrome Carpal tunnel syndrome (08/10/06) BILATERAL R S/P SURGERY Cervical disc disorder with myelopathy (08/21/08) S/P surgery x 2 Cervical spondylosis with myelopathy Chest pain Neg Stress test CHF (congestive heart failure) Chronic obstructive lung disease CKD (chronic kidney disease) stage 3, GFR 30-59 ml/min Cr about 2.5 CKD stage 4 due to type 2 diabetes mellitus Congestive heart failure Constipation Dehydration Diabetes mellitus 09/20/10 Positive Microalbumin Diastolic CHF DNR no code (do not resuscitate) DVT (deep venous thrombosis) Dysuria Essential hypertension Folate deficiency (02/15/16) Gout Gout (07/06/11) Gram-positive bacteremia Greater trochanteric bursitis of left hip Hammer toe Left/right HAP (hospital-acquired pneumonia) (01/15/19) HCAP (healthcare-associated pneumonia) Heart failure with preserved ejection fraction, borderline, class III Hepatomegaly 06/10/04 Hip joint inflamed (09/03/15) Hip pain, left Hip pain, right Hyperglycemia Hyperlipidemia (08/10/00) Hypertension Hypomagnesemia Hypoxia IDDM (insulin dependent diabetes mellitus) Left hip pain Low back pain (04/10/03) DISC HERNIATION L4. MULTILEVEL DJD/SPINAL STENOSIS BY MRI; S/P surgery Lump in neck Macrocytic anemia Menopausal syndrome 07/11/03 Multiple falls Muscle fatigue 03/04/13 Myoclonic epileptic seizures Numbness and tingling in left upper extremity Palliative care patient Pancreatic atrophy Posterior tibial tendon dysfunction 02/03/16 Postmenopausal bleeding neg. endometrial biopsy Postoperative wound dehiscence (12/23/15) Prerenal azotemia Primary osteoarthritis of left hip (09/17/15) Pulmonary hypertension Renal impairment (07/11/03) ADRENAL MASS. F/U W/ KINLAW positive microalbumin Restless leg syndrome Rotator cuff syndrome (08/01/09) Seizure Shingles Smoker (06/30/16) 01/17/17 1-2 cig/wk SOB (shortness of breath) Spinal stenosis of lumbar region (02/15/16) Spinal stenosis of lumbar region at multiple levels Tarsal tunnel syndrome 06/11/13 Tarsal tunnel syndrome (06/11/13) Trochanteric bursitis 03/18/13 Upper respiratory tract infection (08/03/15) UTI (urinary tract infection) Vaginal atrophy Vitamin D deficiency Vitamin D deficiency Weakness Surgical History Arthrodesis right 2nd toe Cataract (01/07/14) FOLLOWED BY OPTICAL EXPRESSIONS cervical repair (~10/2008) C6-C7 DISK; RECURRENT SURGERY Cholecystectomy (07/31/13) Endometrial Biopsy NEG H/O arthrodesis right second toe H/O Spinal surgery multiple spine surgeries; low back x 2; She had multilevel DJD and spinal stenosis; disc herniation. 2008-cervical repair; C6-C7 disc; recurrent surgery. History of bilateral tubal ligation 09/11/80 History of gynecologic surgery endometrial biopsy-neg History of hip surgery 11/10/15 left hip arthroplasty 12/04/15-placement of wound VAC to left hip History of orthopedic surgery 09/11/97 tarsal tunnel release Left eye surgery 12/31/17 Ligation of fallopian tube (~1980) Open Carpal Tunnel release Right wrist surgery 10/26/17 Rotator Cuff Repair (~1980) S/P CABG (coronary artery bypass graft) (01/03/19) 4 vessel CABG and LA appendage [place], [place] Nav [place] [facility] [place] S/P carpal tunnel release S/P cholecystectomy 09/11/12 S/P rotator cuff repair 09/11/80 SPINE SURGERY Multiple spine surgeries, low back x 2. She had multilevel DJD and spinal stenosis, disc herniation Status post incision and drainage 12/04/15 left hip surgical wound dehiscence and infection tarsal tunnel release (~1997) Total replacement of hip [facility]; LEFT HIP Family History Mother Diabetes Essential hypertension Personal history of malignant neoplasm KIDNEY/LIVER/BRAIN Heart disease Hyperlipidemia Stroke Asthma Father Diabetes Essential hypertension Personal history of malignant neoplasm BONE Heart disease Asthma Sister Diabetes Essential hypertension Depression Heart disease Asthma Grandfather No problems noted. Grandfather No problems noted. Grandmother Personal history of malignant neoplasm UTERINE Grandmother Diabetes Aunt Personal history of malignant neoplasm BREAST Brother Hyperlipidemia Stroke Sister Asthma Son Asthma Daughter Depression Asthma Daughter Asthma Daughter Depression Neoplasm Asthma Brother No problems noted. 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 Pets and animals: Yes Pets and animals: cat(s), dog(s) and horse(s) What is your relationship status?: Panel score (0-1 are the most socially isolated patients): 0 What type of physical activity do you participate in: none, walking and additional Details: would like to start now that it's warm Duration: 15-30 minutes/day Saniya/Oriental Orthodox: Hoahaoism Special saniya needs: No Seatbelt use: always Do you feel safe at home: Yes Do you feel safe in your relationship?: Yes Additional Social history: recently moved out and is now living with a friend Meds Allergies and Home Medications Allergies Allergy/AdvReac Type Severity Reaction Status Date / Time oxycodone Allergy Severe Psychosis Verified 09/26/21 09:03 venom-honey bee Allergy Severe ANAPHYLAXIS Verified 09/26/21 09:03 adhesive Allergy BLISTERS Verified 09/26/21 09:03 Home Medications Medication Instructions Recorded Confirmed Type lancets 33 gauge #100 each 12/18/18 10/03/21 Rx polyethylene glycol 3350 [Miralax] 1 g PO PRN PRN 01/15/19 10/03/21 History lancets 25 gauge #100 each 01/29/19 10/03/21 Rx B-complex with vitamin C 1 tab PO DAILY 09/19/19 10/03/21 History calcium mwcf-E4-wznijozvj vitaliy 2 cap PO DAILY 03/11/20 10/03/21 History aspirin 81 mg PO DAILY #0 tab 06/01/20 10/03/21 Rx albuterol sulfate 2.5 mg INHALATION Q2H PRN PRN #180 09/10/20 10/03/21 Rx ml griosz-ycwcwtqu-kmgpkos 1 cap PO TID #270 cap 10/01/20 10/03/21 Rx 6,000-19,000-30,000 unit capsule,delayed rel magnesium chloride 71.5 mg 71.5 mg PO BID #180 tab 10/19/20 10/03/21 Rx (magnesium chloride) tablet,delayed release meclizine 12.5 mg tablet 12.5 mg PO TID PRN #60 tab 12/07/20 10/03/21 Rx pen needle, diabetic 31 gauge x #450 each 12/10/20 10/03/21 Rx 1/4 budesonide-formoterol HFA 160 2 puff INHALATION BID 01/07/21 10/03/21 History mcg-4.5 mcg/actuation aerosol inhaler insulin aspart U-100 100 unit/mL 15 unit SC TID #30 ml 01/07/21 10/03/21 Rx (3 mL) subcutaneous pen insulin glargine 100 unit/mL (3 35 unit SC BID #90 ml 01/07/21 10/03/21 Rx mL) subcutaneous pen sitagliptin 25 mg tablet 25 mg PO DAILY #90 tab 01/07/21 10/03/21 Rx umeclidinium 62.5 mcg/actuation 1 inh INHALATION DAILY #30 ea 01/07/21 10/03/21 Rx blister powder for inhalation epinephrine 0.3 mg/0.3 mL 0.3 mg IM ONCE #2 ea 02/04/21 10/03/21 Rx injection, auto-injector metoprolol succinate 100 mg 100 mg PO DAILY #90 tab 02/18/21 10/03/21 Rx tablet,extended release 24 hr omeprazole 40 mg capsule,delayed 40 mg PO BID #180 cap 02/18/21 10/03/21 Rx release levetiracetam 500 mg tablet 500 mg PO BID #180 tab 02/22/21 10/03/21 Rx torsemide 100 mg tablet 100 mg PO DAILY #90 tab 03/19/21 10/03/21 Rx blood sugar diagnostic #300 each 04/08/21 10/03/21 Rx ergocalciferol (vitamin D2) 1,250 50,000 unit PO M-W-F #36 tab-cap 04/08/21 10/03/21 Rx mcg (50,000 unit) capsule potassium chloride 20 mEq 40 meq PO BID #180 tab 04/21/21 10/03/21 Rx tablet,extended release allopurinol 100 mg tablet 100 mg PO DAILY #90 tab-cap 05/27/21 10/03/21 Rx metolazone 5 mg tablet 5 mg PO .4 times week PRN tab 05/28/21 10/03/21 History gabapentin 100 mg capsule 100 mg PO TID #270 cap 06/07/21 10/03/21 Rx triamcinolone acetonide 0.1 % 1 applic TOPICAL BID #80 g 07/20/21 10/03/21 Rx topical cream atorvastatin 40 mg tablet 40 mg PO DAILY #90 tab-cap 08/03/21 10/03/21 Rx duloxetine 60 mg capsule,delayed 60 mg PO DAILY #90 tab-cap 08/03/21 10/03/21 Rx release isosorbide mononitrate 10 mg tablet 10 mg PO BID #180 tab 08/03/21 10/03/21 Rx ropinirole 2 mg tablet 2 mg PO QPM PRN #90 tab 08/03/21 10/03/21 Rx mupirocin 2 % topical ointment 1 applic TOPICAL BID #22 g 08/24/21 10/03/21 Rx acetaminophen [Tylenol Extra 500 mg PO TID #0 tab 09/30/21 10/03/21 Rx Strength] hydrocodone-acetaminophen 1 tab PO Q6H PRN #12 tab 09/30/21 10/03/21 Rx Exam Const General: cooperative, comfortable and no acute distress Nutritional Appearance: obese Orientation: alert, awake and oriented x3 HENMT Mouth: mucous membranes dry Eyes Eyelids: eyelids normal Pupils: PERRL EOM: EOM intact bilaterally Neck Neck: normal visual inspection and no JVD Lymphatic: no lymphadenopathy noted Resp Effort & Inspection: normal respiratory effort Auscultation: clear to auscultation bilaterally Cardio Jugular venous pressure: no JVD Rhythm: regular rhythm Heart Sounds: S1 normal GI Auscultation: normal bowel sounds General: No CVA tenderness and deferred Skin General skin exam: no rashes or lesions noted Neuro General: patient alert, patient awake and patient oriented x3 Cognition: normal cognition Speech: speech normal Gait: normal gait Extrem General: abnormal to inspection Right lower extremity: abnormal to inspection and ROM limited Other: patient has RLE in cast. Elevated above heart. c/o pain Results Labs Result diagrams: 10/03/21 08:00 10/03/21 08:00 Labs: Laboratory Results - last 24 hr 10/03/21 10/03/21 10/03/21 08:00 08:00 09:30 WBC 11.93 H RBC 4.66 Hgb 10.5 L Hct 38.5 MCV 82.6 MCH 22.5 L MCHC 27.3 L RDW 17.9 H Plt Count 530 H MPV 9.6 Immature Gran % 1.2 Neutrophils % 71.9 Lymphocytes % 12.1 Monocytes % 7.4 Eosinophils % 6.5 Basophils % 0.9 Nucleated RBC % 0 Absolute Neutrophils 8.58 H Absolute Lymphocytes 1.44 Absolute Monocytes 0.88 H Absolute Eosinophils 0.78 H Absolute Basophils 0.11 Sodium 138 Potassium 4.5 Chloride 99 Carbon Dioxide 31.0 Anion Gap 8.0 BUN 67 H Creatinine 2.3 H Estimated GFR/1.73 m2 21.09 Glucose 157 H Calcium 9.2 Magnesium 1.9 Total Bilirubin 0.5 AST 21 ALT 51 Alkaline Phosphatase 140 H Troponin I < 50 Total Protein 8.0 Albumin 3.5 Urine Color Yellow Urine Clarity Sl Cloudy Urine pH 6.0 Ur Specific [place] 1.020 Urine Protein Negative Urine Ketones Negative Urine Blood Negative Urine Nitrite Negative Urine Bilirubin Negative Urine Urobilinogen 0.2 Ur Leukocyte Esterase Small H Urine RBC 0-2 Urine WBC 10-20 H Ur Epithelial Cells Urine Crystals Negative Urine Bacteria Many Urine Casts 5-10 WBC Urine Mucus Negative Ur Culture Indicated? Yes Urine Glucose Negative COVID-19 Source SARS-CoV-2 (PCR) Influenza Type A (PCR) Influenza Type B (PCR) RSV (PCR) 10/03/21 09:47 WBC RBC Hgb Hct MCV MCH MCHC RDW Plt Count MPV Immature Gran % Neutrophils % Lymphocytes % Monocytes % Eosinophils % Basophils % Nucleated RBC % Absolute Neutrophils Absolute Lymphocytes Absolute Monocytes Absolute Eosinophils Absolute Basophils Sodium Potassium Chloride Carbon Dioxide Anion Gap BUN Creatinine Estimated GFR/1.73 m2 Glucose Calcium Magnesium Total Bilirubin AST ALT Alkaline Phosphatase Troponin I Total Protein Albumin Urine Color Urine Clarity Urine pH Ur Specific [place] Urine Protein Urine Ketones Urine Blood Urine Nitrite Urine Bilirubin Urine Urobilinogen Ur Leukocyte Esterase Urine RBC Urine WBC Ur Epithelial Cells Urine Crystals Urine Bacteria Urine Casts Urine Mucus Ur Culture Indicated? Urine Glucose COVID-19 Source Nasal/Nares SARS-CoV-2 (PCR) Negative Influenza Type A (PCR) Negative Influenza Type B (PCR) Negative RSV (PCR) Negative Last Vital Signs Temp 36 C L 10/03/21 10:34 Pulse 59 L 10/03/21 10:34 Resp 12 10/03/21 10:34 BP 122/71 10/03/21 10:34 Pulse Ox 98 10/03/21 10:34
[2021-10-03] MEDS: Umeclidinium 7 CAP INHALER 1 CAP IH (13:59)
[2021-10-03] MEDS: HYDROmorphone 2 MG/ML VIAL 4 MG IVP ×2 (14:40→21:51)
[2021-10-03] MEDS: Normal Saline Flush 10 ML SYR IVP (14:40)
[2021-10-03] MEDS: Insulin Aspart 300 UNITS/3 ML PEN SC (17:07)
[2021-10-03] MEDS: Insulin Glargine 300 UNITS/3 ML PEN 35 UNITS SC (20:18)
[2021-10-03] MEDS: rOPINIRole 1 MG TAB 2 MG PO (21:34)
--- NOTE | 2021-10-04 | DI.US_ITS ---
APPROVED REPORT EXAM: Comprehensive 2D, Doppler, and color-flow Echocardiogram Patient Location: In-Patient Room/Bed: 208 [employer] Supervisor: Gem Garcia RDCS (AE) Indications: Surgery, HTN,CAD, Pul HTN Other Information Study Quality: Adequate. Technically limited study due to inability to position patient, post op exam done supine bedside.. Conclusion Mild concentric left ventricular hypertrophy. Estimated ejection fraction is 60%. Wall motion is no rmal Normal right ventricular size and systolic function Both atria are normal in size Mildly sclerotic trileaflet aortic valve without stenosis or regurgitation Mild mitral annular calcification, trace mitral regurgitation Normal tricuspid valve with mild regurgitation. Estimated right ventricular systolic pressure is 37 mmHg Wall motion Left Ventricle The left ventricle is normal size. The left ventricular systolic function is normal. The left ventric ular ejection fraction is within the normal range. Mild concentric left ventricular hypertrophy. Ther e is normal LV segmental wall motion. There is no ventricular septal defect visualized. LVEF is 60%. Right Ventricle The right ventricle is normal size. The right ventricular systolic function is normal. The RVSP is 37 .7mmHg. Atria The left atrium size is normal. The right atrium size is normal. The interatrial septum is intact wit h no evidence for an atrial septal defect. Aortic Valve The aortic valve is mildly sclerotic Aortic valve is trileaflet. There is no aortic valvular stenosis . No aortic regurgitation is present. Mitral Valve Mild mitral annular calcification. No evidence of mitral valve stenosis. Trace mitral regurgitation. Tricuspid Valve The tricuspid valve is normal in structure. There is no tricuspid valve stenosis. Mild tricuspid regu rgitation. Pulmonic Valve The pulmonary valve is normal in structure. There is no pulmonic valvular stenosis. There is no pulmo nick valvular regurgitation. Great Vessels The aortic root is normal in size. Ascending aorta is not well visualized. IVC is normal in size and collapses >50% with inspiration. Pericardium There is no pericardial effusion. 2D Dimensions IVSD d PLAX 1.19 cm F: 0.6-1.0 LV Vol A2C d MOD 108.9 mL LVPW d PLAX 1.12 cm F: 0.6 - 1.0 LV Vol A4C d MOD 115.3 mL LVID d PLAX 4.48 cm F: 3.8 - 5.2 LA Area A4C s MOD 17.44 cm2 LVDs 2.90 cm F: 2.2 - 3.5 LA Area A2C s MOD 15.59 cm2 Ao Root d 3.24 cm F: 2.7 - 3.3 LV EF A4C MOD 60.0 % RA Area A4C 15.52 cm2 LV EF A2C MOD 60.7 % LV EF Teichholz 63.8 % LV EF Biplane MOD 60.5 % LVEF (Quintero's) 60.46 % F: 54 - 74 SV 68.09 mL LV Volume 112.60 mL F: 46 - 106 LV Volume Index 46.33 mL/m2 F: 29 - 61 LV Vol Biplane MOD 112.6 mL FS 34.55 % M-Mode TAPSE 1.77 cm (M/F) >1.7 LV Diastology MV E' medial 0.073 (>0.07 m/s) E/A Ratio 1.2 LV E/e MED 10.55 (<14) MV E Vmax 0.77 (0.4-1.3 m/s) MV E' lateral 0.117 (>0.1 m/s) MV A Vmax 0.65 (0.4-1.3 m/s) LV E/e LAT 6.55 (<14) MV E/A Ratio 1.16 MV E/E' medial 10.58 MV E/E' lateral 6.58 Aortic Valve LVOT Area 3.90 cm2 AoV Area Vmax 3.08 cm2 LVOT Vmax 1.18 m/s COLEMAN Mean Mukul. 3.19 cm2 LVOT Mean Mukul. 0.78 m/s LVOT Peak Grad 5.5 mmHg LVOT Mean Grad 2.8 mmHg LVOT VTI 0.252 m LVOT Diam s 2.20 cm AoV Vmax 1.49 m/s Velocity Ratio 0.79 AoV Mean Umkul. 0.95 m/s AoV Peak Grad 8.9 mmHg LVOT SV 98.04 mL AoV Mean Grad 4.3 mmHg AoV VTI 0.265 m AoV Area VTI 3.69 cm2 Mitral Valve MV DT 244 (160-240 msec) MV PHT 71 msec MV Area PHT 3.10 cm2 MV VTI 0.398 m MV Area VTI 2.46 (4.0-6.0 cm2) Pulmonary Valve PV Vmax 0.85 (0.5-1.5 m/s) RVOT Peak Gr. 0.85 mmHg PV Peak Grad 2.9 mmHg RVOT Mean Gr. 0.45 mmHg PV Mean Grad 2.0 mmHg RVOT VTI 0.096 m PV VTI 0.243 m RVOT Vmax 0.46 m/s Tricuspid Valve TR Peak Grad 34.7 mmHg TR Vmax 2.95 m/s RA Pressure 3.00 mmHg RVSP (TR) 37.7 mmHg
[2021-10-04] MEDS: HYDROcodone 10/Acetaminophen 325 TAB PO (05:06)
[2021-10-04 07:38] LABS: Anion Gap 6.6 mmol/L (3-11); BUN 71 mg/dL (7-18); CO2 30.4 mmol/L (21.0-32.0); CREATININE 2.8 mg/dL (0.55-1.02); Calcium 8.9 mg/dL (8.5-10.1); Chloride 103 mmol/L (98-107); Glucose 142 mg/dL (74-106); Potassium 4.5 mmol/L (3.5-5.1); Sodium 140 mmol/L (136-145)
[2021-10-04] MEDS: Lactated Ringers 1,000 ML 50 ML IV (07:38)
[2021-10-04] MEDS: Normal Saline Flush 10 ML SYR IVP ×2 (07:38→13:29)
[2021-10-04] MEDS: Insulin Aspart 300 UNITS/3 ML PEN SC (07:49)
[2021-10-04] MEDS: Insulin Glargine 300 UNITS/3 ML PEN 35 UNITS SC ×2 (07:50→20:38)
--- NOTE | 2021-10-04 07:59 | PCNE_ITS ---
Date of service: 10/04/21 Time of Service: 08:00 History of Present Illness History of Present Illness Chief Complaint: Broke my ankle Narrative: Megan is a 70-year-old woman who is well-known to me. She has unstable CHF, COPD, diabetes, morbid obesity, recent knee injury and most recently broken ankle. She seems to be in good spirits today but understands that she cannot go home and be safe. [facility] at this time Addendum: I did return this evening. Megan was again in good spirits. She is anticipating surgery in a few days and then transfer to a SNF Consults Consult date: 10/04/21 Requesting physician: Tiana Grey Assessment and Plan Assessment and plan (1) Diabetes mellitus: Status: Chronic Assessment and plan: moniter and treat accordingly Qualifiers: Diabetes mellitus complication status: without complication Diabetes mellitus assisted insulin use: with off track betting manager use Diabetes mellitus type: type 2 Qualified Code(s): E11.9 - Type 2 diabetes mellitus without complications; Z79.4 - nursing home (current) use of insulin (2) Closed bimalleolar fracture of right ankle: Status: Acute Assessment and plan: per ortho NPO for anticipated procedure (3) Discharge planning issues: Status: Acute Assessment and plan: Agrees to go to [facility] (4) CHF (congestive heart failure): Assessment and plan: Will need close f/u. She decompensates easily. BAlancing Megan's fluids is more of a gestalt than a play by [employer] game Qualifiers: Heart failure chronicity: chronic Heart failure type: diastolic Qualified Code(s): I50.32 - Chronic diastolic (congestive) heart failure (5) Renal insufficiency: Status: Chronic Assessment and plan: She is a little off her baseline, baseline not good (6) Palliative care patient: Assessment and plan: will follow Review of Systems Constitutional Constitutional: Reports body ache(s), Reports fatigue, Reports frequent falls, Reports lethargy, Reports weakness and Reports weight gain Eyes Eyes: Reports system reviewed and no additional complaints, except as documented ENT Ears, Nose, Mouth, and Throat: Reports change in voice Cardiovascular Cardiovascular: Denies chest pain, Reports pedal edema, Reports lightheadedness, Reports dyspnea and Reports dyspnea on exertion Respiratory Respiratory: Reports chest congestion, Reports cough, Reports dyspnea and Reports dyspnea on exertion Gastrointestinal Gastrointestinal: Reports system reviewed and no additional complaints, except as documented Genitourinary Genitourinary: Reports urinary incontinence Musculoskeletal Comments: Right ankle is wrapped after recent fracture. Left ankle has 1+ edema Neurologic Neurologic: Reports frequent falls and Reports weakness Psychiatric Psychiatric: Reports irritability Endocrine Endocrine: Reports fatigue PFSH All Active Problems (Updated 10/04/21 @ 20:06 by Hugo Alvarez MD) Renal insufficiency (Chronic) Essential hypertension (Chronic 06/13/13) Diabetes mellitus (Chronic 09/20/10) DVT prophylaxis (Acute) CAD (coronary artery disease), [place] coronary artery (Chronic) Closed bimalleolar fracture of right ankle (Acute) Closed avulsion fracture of condyle of right femur (Acute) Cyst of lateral meniscus of right knee (Acute) Tear of lateral meniscus of right knee (Acute) Medial meniscus tear (Acute) Wound abscess (Acute) Discharge planning issues (Acute) Medical History Abnormal mammography 08/10/06 Acute kidney injury superimposed on chronic kidney disease [id number] kidney injury Altered mental status Anemia Ankle pain (03/13/14) Annual physical exam (12/14/15) Atrial fibrillation Atrial flutter BMI 40.0-44.9, adult (12/02/14) Carpal tunnel syndrome Carpal tunnel syndrome (08/10/06) BILATERAL R S/P SURGERY Cervical disc disorder with myelopathy (08/21/08) S/P surgery x 2 Cervical spondylosis with myelopathy Chest pain Neg Stress test CHF (congestive heart failure) Chronic obstructive lung disease CKD (chronic kidney disease) stage 3, GFR 30-59 ml/min Cr about 2.5 CKD stage 4 due to type 2 diabetes mellitus Congestive heart failure Constipation Dehydration Diabetes mellitus 09/20/10 Positive Microalbumin Diastolic CHF DNR no code (do not resuscitate) DVT (deep venous thrombosis) Dysuria Essential hypertension Folate deficiency (02/15/16) Gout Gout (07/06/11) Gram-positive bacteremia Greater trochanteric bursitis of left hip Hammer toe Left/right HAP (hospital-acquired pneumonia) (01/15/19) HCAP (healthcare-associated pneumonia) Heart failure with preserved ejection fraction, borderline, class III Hepatomegaly 06/10/04 Hip joint inflamed (09/03/15) Hip pain, left Hip pain, right Hyperglycemia Hyperlipidemia (08/10/00) Hypertension Hypomagnesemia Hypoxia IDDM (insulin dependent diabetes mellitus) Left hip pain Low back pain (04/10/03) DISC HERNIATION L4. MULTILEVEL DJD/SPINAL STENOSIS BY MRI; S/P surgery Lump in neck Macrocytic anemia Menopausal syndrome 07/11/03 Multiple falls Muscle fatigue 03/04/13 Myoclonic epileptic seizures Numbness and tingling in left upper extremity Palliative care patient Pancreatic atrophy Posterior tibial tendon dysfunction 02/03/16 Postmenopausal bleeding neg. endometrial biopsy Postoperative wound dehiscence (12/23/15) Prerenal azotemia Primary osteoarthritis of left hip (09/17/15) Pulmonary hypertension Renal impairment (07/11/03) ADRENAL MASS. F/U W/ [facility] positive microalbumin Restless leg syndrome Rotator cuff syndrome (08/01/09) Seizure Shingles Smoker (06/30/16) 01/17/17 1-2 cig/wk SOB (shortness of breath) Spinal stenosis of lumbar region (02/15/16) Spinal stenosis of lumbar region at multiple levels Tarsal tunnel syndrome 06/11/13 Tarsal tunnel syndrome (06/11/13) Trochanteric bursitis 03/18/13 Upper respiratory tract infection (08/03/15) UTI (urinary tract infection) Vaginal atrophy Vitamin D deficiency Vitamin D deficiency Weakness Surgical History Arthrodesis right 2nd toe Cataract (01/07/14) FOLLOWED BY [employer] cervical repair (~10/2008) C6-C7 DISK; RECURRENT SURGERY Cholecystectomy (07/31/13) Endometrial Biopsy NEG H/O arthrodesis right second toe H/O Spinal surgery multiple spine surgeries; low back x 2; She had multilevel DJD and spinal stenosis; disc herniation. 2008-cervical repair; C6-C7 disc; recurrent surgery. History of bilateral tubal ligation 09/11/80 History of gynecologic surgery endometrial biopsy-neg History of hip surgery 11/10/15 left hip arthroplasty 12/04/15-placement of wound VAC to left hip History of orthopedic surgery 09/11/97 tarsal tunnel release Left eye surgery 12/31/17 Ligation of fallopian tube (~1980) Open Carpal Tunnel release Right wrist surgery 10/26/17 Rotator Cuff Repair (~1980) S/P CABG (coronary artery bypass graft) (01/03/19) 4 vessel CABG and [place] appendage [place], [place] Nav [place] [facility] [place] S/P carpal tunnel release S/P cholecystectomy 09/11/12 S/P rotator cuff repair 09/11/80 SPINE SURGERY Multiple spine surgeries, low back x 2. She had multilevel DJD and spinal stenosis, disc herniation Status post incision and drainage 12/04/15 left hip surgical wound dehiscence and infection tarsal tunnel release (~1997) Total replacement of hip [facility]; LEFT HIP Family History Mother Diabetes Essential hypertension Personal history of malignant neoplasm KIDNEY/LIVER/BRAIN Heart disease Hyperlipidemia Stroke Asthma Father Diabetes Essential hypertension Personal history of malignant neoplasm BONE Heart disease Asthma Sister Diabetes Essential hypertension Depression Heart disease Asthma Grandfather No problems noted. Grandfather No problems noted. Grandmother Personal history of malignant neoplasm UTERINE Grandmother Diabetes Aunt Personal history of malignant neoplasm BREAST Brother Hyperlipidemia Stroke Sister Asthma Son Asthma Daughter Depression Asthma Daughter Asthma Daughter Depression Neoplasm Asthma Brother No problems noted. 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[employer] Pets and animals: Yes Pets and animals: cat(s), dog(s) and horse(s) What is your relationship status?: Panel score (0-1 are the most socially isolated patients): 0 What type of physical activity do you participate in: none, walking and additional Details: would like to start now that it's warm Duration: 15-30 minutes/day Saniya/Mosque: Congregational Special saniya needs: No Seatbelt use: always Do you feel safe at home: Yes Do you feel safe in your relationship?: Yes Additional Social history: recently moved out and is now living with a friend Exam Const General: no acute distress and anxious Nutritional Appearance: obese Orientation: oriented x3 Eyes General: appearance normal, both eyes and all related structures Resp Effort & Inspection: normal respiratory effort and able to speak in complete sentences Auscultation: diminished lung sounds Cardio Rate: regular rate Heart Sounds: murmur General: deferred Extrem General: other (r leg wrapped) Results Last Vital Signs Temp 97.2 F L 10/03/21 23:22 Pulse 64 10/03/21 23: Resp 8 L 10/03/21 23:22 BP 120/75 10/03/21 23:22 Pulse Ox 94 10/03/21 23:22 Laboratory Tests 09/29/21 10/03/21 10/03/21 06:15 08:00 08:00 WBC 11.93 H Hct 38.5 Plt Count 530 H BUN Creatinine 2.4 H Alkaline Phosphatase 140 H Urine WBC SARS-CoV-2 (PCR) 10/03/21 10/03/21 10/04/21 09:30 09:47 07:00 WBC Hct Plt Count BUN 71 H Creatinine 2.8 H Alkaline Phosphatase Urine WBC 10-20 H SARS-CoV-2 (PCR) Negative Labs Result diagrams: 10/03/21 08:00 10/05/21 06:25 Labs: Laboratory Results - last 24 hr 10/03/21 10/03/21 10/03/21 08:00 08:00 09:30 WBC 11.93 H RBC 4.66 Hgb 10.5 L Hct 38.5 MCV 82.6 MCH 22.5 L MCHC 27.3 L RDW 17.9 H Plt Count 530 H MPV 9.6 Immature Gran % 1.2 Neutrophils % 71.9 Lymphocytes % 12.1 Monocytes % 7.4 Eosinophils % 6.5 Basophils % 0.9 Nucleated RBC % 0 Absolute Neutrophils 8.58 H Absolute Lymphocytes 1.44 Absolute Monocytes 0.88 H Absolute Eosinophils 0.78 H Absolute Basophils 0.11 Sodium 138 Potassium 4.5 Chloride 99 Carbon Dioxide 31.0 Anion Gap 8.0 BUN 67 H Creatinine 2.3 H Estimated GFR/1.73 m2 21.09 Glucose 157 H Calcium 9.2 Magnesium 1.9 Total Bilirubin 0.5 AST 21 ALT 51 Alkaline Phosphatase 140 H Troponin I < 50 Total Protein 8.0 Albumin 3.5 Urine Color Yellow Urine Clarity Sl Cloudy Urine pH 6.0 Ur Specific [place] 1.020 Urine Protein Negative Urine Ketones Negative Urine Blood Negative Urine Nitrite Negative Urine Bilirubin Negative Urine Urobilinogen 0.2 Ur Leukocyte Esterase Small H Urine RBC 0-2 Urine WBC 10-20 H Ur Epithelial Cells Urine Crystals Negative Urine Bacteria Many Urine Casts 5-10 WBC Urine Mucus Negative Ur Culture Indicated? Yes Urine Glucose Negative COVID-19 Source SARS-CoV-2 (PCR) Influenza Type A (PCR) Influenza Type B (PCR) RSV (PCR) 10/03/21 10/04/21 09:47 07:00 WBC RBC Hgb Hct MCV MCH MCHC RDW Plt Count MPV Immature Gran % Neutrophils % Lymphocytes % Monocytes % Eosinophils % Basophils % Nucleated RBC % Absolute Neutrophils Absolute Lymphocytes Absolute Monocytes Absolute Eosinophils Absolute Basophils Sodium 140 Potassium 4.5 Chloride 103 Carbon Dioxide 30.4 Anion Gap 6.6 BUN 71 H Creatinine 2.8 H Estimated GFR/1.73 m2 16.80 Glucose 142 H Calcium 8.9 Magnesium Total Bilirubin AST ALT Alkaline Phosphatase Troponin I Total Protein Albumin Urine Color Urine Clarity Urine pH Ur Specific [place] Urine Protein Urine Ketones Urine Blood Urine Nitrite Urine Bilirubin Urine Urobilinogen Ur Leukocyte Esterase Urine RBC Urine WBC Ur Epithelial Cells Urine Crystals Urine Bacteria Urine Casts Urine Mucus Ur Culture Indicated? Urine Glucose COVID-19 Source Nasal/Nares SARS-CoV-2 (PCR) Negative Influenza Type A (PCR) Negative Influenza Type B (PCR) Negative RSV (PCR) Negative COMPARISON: 1. MR LOWER JOINT RT WO 09/27/2021 11:[address] of the knee dated 09/26/2021. 3. X-ray of the knee dated 09/25/2021. FINDINGS: Bones/joints: Casting material obscuring fine bony detail. Obliquely oriented nondisplaced fracture through the proximal lateral fibular metadiaphyseal region, not present on prior exam on 09/25/2021. No definitive extension to the medial margin of the proximal right fibula. Obliquely oriented fracture through the distal fibular diaphysis with likely extension to the tibiofibular syndesmosis. Fracture through the distal tibial metaphysis noted. Fracture noted through the medial malleolus. Soft tissues: Vascular phleboliths noted. Surgical clips in the upper medial soft tissues adjacent to the proximal tibial metadiaphysis.. IMPRESSION: 1. Obliquely oriented nondisplaced fracture through the proximal lateral fibular metadiaphyseal region, not present on prior exam on 09/25/2021. 2. Distal fibular fracture with possible extension to the tibiofibular syndesmosis. 3. Fracture through the anterior distal tibial metaphysis. 4. Fracture through the medial malleolus.
--- NOTE | 2021-10-04 08:00 | W.ORTHOCONSU ---
Date of service: 10/04/21 Time of Service: 12:52 History of Present Illness History of Present Illness Chief Complaint: Right Ankle Fracture Narrative: Bibi is a 70-year-old female with a history of multiple medical comorbidities including diabetes, coronary artery disease, chronic kidney disease, obesity, who was just recently discharged from the hospital with a medial femoral avulsion fracture and hemarthrosis in the setting of some moderate degenerative changes after frequent falls. She was initially recommended rehab facility placement but elected to proceed home. She was managing at home with her walker until yesterday when she was in a hurry to get to the toilet but missed, falling backwards onto the floor and twisting her right ankle with immediate pain. She denies other injury. She had notable pain and a close reduction was performed in the emergency department. Supposedly there was some tenting of the skin but no laceration of the skin. Given the multiple falls down the period of 2 weeks with fractures about the right knee and her right ankle, she was admitted to [facility] for further management and eventual placement. She has reported continued pain about the right ankle. She was placed into a long posterior slab splint with stirrups. She has been taking a significant narcotics from the floor which has been causing diminishment of her oxygen saturation. Consults Consult date: 10/03/21 Requesting physician: Tiana Grey Consult Reason Right Ankle Fracture Assessment and Plan Assessment and plan (1) Closed bimalleolar fracture of right ankle: Status: Acute Assessment and plan: Bibi is a 70-year-old who unfortunately had multiple falls at home after being admitted for multiple falls with a medial femoral avulsion type fracture. She has a significantly displaced bimalleolar ankle fracture which will require surgical intervention. I did discuss case with anesthesia due to her multiple medical comorbidities as well as the admitting team. She will be further evaluated and optimized for potential surgery in the end of the week. Anesthesia offered a popliteal and femoral block which has provided some pain relief. The old splint was removed and closed reduction maneuver using the Ally method was performed in a posterior slab splint, well-padded, was then applied. She will need fracture fixation I discussed this with her. Still require screws in place over the lateral side, syndesmotic fixation, and multiple screws over the medial aspect of the ankle, potentially a small plate. Due to her poor bone quality, obesity, and diabetes, more fixation will be required rather than less. She still will be nonweightbearing for period of time we will gradually increase as tolerated. However, I think given her multiple medical issues and living situation, would benefit from rehabilitation stay once she is cleared postoperatively. My partner, Dr. Edouard, will be assuming the care and management of Bibi for the surgery as I will be out of town. I recommend that she keep the foot elevated as much as possible. Due to her poor oxygenation status minimize narcotics will be beneficial and recommend maximization of nonnarcotic modalities. Loosen the Rodriguez wrap can be done if it feels that it is too tight and causing skin irritation. Likely surgery on with Dr. Edouard. We will also obtain a CT scan of the ankle for better understanding of the fracture orientation and for surgical planning. Qualifiers: Encounter type: initial encounter Qualified Code(s): S82.841A - Displaced bimalleolar fracture of right lower leg, initial encounter for closed fracture Review of Systems All systems reviewed & are unremarkable except as noted in HPI and below PFSH All Active Problems (Updated 10/04/21 @ 20:06 by Hugo Alvarez MD) Renal insufficiency (Chronic) Essential hypertension (Chronic 06/13/13) Diabetes mellitus (Chronic 09/20/10) DVT prophylaxis (Acute) CAD (coronary artery disease), [place] coronary artery (Chronic) Closed bimalleolar fracture of right ankle (Acute) Closed avulsion fracture of condyle of right femur (Acute) Cyst of lateral meniscus of right knee (Acute) Tear of lateral meniscus of right knee (Acute) Medial meniscus tear (Acute) Wound abscess (Acute) Discharge planning issues (Acute) Medical History Abnormal mammography 08/10/06 Acute kidney injury superimposed on chronic kidney disease [id number] kidney injury Altered mental status Anemia Ankle pain (03/13/14) Annual physical exam (12/14/15) Atrial fibrillation Atrial flutter BMI 40.0-44.9, adult (12/02/14) Carpal tunnel syndrome Carpal tunnel syndrome (08/10/06) BILATERAL R S/P SURGERY Cervical disc disorder with myelopathy (08/21/08) S/P surgery x 2 Cervical spondylosis with myelopathy Chest pain Neg Stress test CHF (congestive heart failure) Chronic obstructive lung disease CKD (chronic kidney disease) stage 3, GFR 30-59 ml/min Cr about 2.5 CKD stage 4 due to type 2 diabetes mellitus Congestive heart failure Constipation Dehydration Diabetes mellitus 09/20/10 Positive Microalbumin Diastolic CHF DNR no code (do not resuscitate) DVT (deep venous thrombosis) Dysuria Essential hypertension Folate deficiency (02/15/16) Gout Gout (07/06/11) Gram-positive bacteremia Greater trochanteric bursitis of left hip Hammer toe Left/right HAP (hospital-acquired pneumonia) (01/15/19) HCAP (healthcare-associated pneumonia) Heart failure with preserved ejection fraction, borderline, class III Hepatomegaly 06/10/04 Hip joint inflamed (09/03/15) Hip pain, left Hip pain, right Hyperglycemia Hyperlipidemia (08/10/00) Hypertension Hypomagnesemia Hypoxia IDDM (insulin dependent diabetes mellitus) Left hip pain Low back pain (04/10/03) DISC HERNIATION L4. MULTILEVEL DJD/SPINAL STENOSIS BY MRI; S/P surgery Lump in neck Macrocytic anemia Menopausal syndrome 07/11/03 Multiple falls Muscle fatigue 03/04/13 Myoclonic epileptic seizures Numbness and tingling in left upper extremity Palliative care patient Pancreatic atrophy Posterior tibial tendon dysfunction 02/03/16 Postmenopausal bleeding neg. endometrial biopsy Postoperative wound dehiscence (12/23/15) Prerenal azotemia Primary osteoarthritis of left hip (09/17/15) Pulmonary hypertension Renal impairment (07/11/03) ADRENAL MASS. F/U W/ KINLAW positive microalbumin Restless leg syndrome Rotator cuff syndrome (08/01/09) Seizure Shingles Smoker (06/30/16) 01/17/17 1-2 cig/wk SOB (shortness of breath) Spinal stenosis of lumbar region (02/15/16) Spinal stenosis of lumbar region at multiple levels Tarsal tunnel syndrome 06/11/13 Tarsal tunnel syndrome (06/11/13) Trochanteric bursitis 03/18/13 Upper respiratory tract infection (08/03/15) UTI (urinary tract infection) Vaginal atrophy Vitamin D deficiency Vitamin D deficiency Weakness Surgical History Arthrodesis right 2nd toe Cataract (01/07/14) FOLLOWED BY OPTICAL EXPRESSIONS cervical repair (~10/2008) C6-C7 DISK; RECURRENT SURGERY Cholecystectomy (07/31/13) Endometrial Biopsy NEG H/O arthrodesis right second toe H/O Spinal surgery multiple spine surgeries; low back x 2; She had multilevel DJD and spinal stenosis; disc herniation. 2009-cervical repair; C6-C7 disc; recurrent surgery. History of bilateral tubal ligation 09/11/80 History of gynecologic surgery endometrial biopsy-neg History of hip surgery 11/10/15 left hip arthroplasty 12/04/15-placement of wound VAC to left hip History of orthopedic surgery 09/11/97 tarsal tunnel release Left eye surgery 12/31/17 Ligation of fallopian tube (~1980) Open Carpal Tunnel release Right wrist surgery 10/26/17 Rotator Cuff Repair (~1980) S/P CABG (coronary artery bypass graft) (01/03/19) 4 vessel CABG and LA appendage excision, Dr. Nav Wang, [facility] [place], [place] S/P carpal tunnel release S/P cholecystectomy 09/11/12 S/P rotator cuff repair 09/11/80 SPINE SURGERY Multiple spine surgeries, low back x 2. She had multilevel DJD and spinal stenosis, disc herniation Status post incision and drainage 12/04/15 left hip surgical wound dehiscence and infection tarsal tunnel release (~1997) Total replacement of hip [facility]; LEFT HIP Family History Mother Diabetes Essential hypertension Personal history of malignant neoplasm KIDNEY/LIVER/BRAIN Heart disease Hyperlipidemia Stroke Asthma Father Diabetes Essential hypertension Personal history of malignant neoplasm BONE Heart disease Asthma Sister Diabetes Essential hypertension Depression Heart disease Asthma Grandfather No problems noted. Grandfather No problems noted. Grandmother Personal history of malignant neoplasm UTERINE Grandmother Diabetes Aunt Personal history of malignant neoplasm BREAST Brother Hyperlipidemia Stroke Sister Asthma Son Asthma Daughter Depression Asthma Daughter Asthma Daughter Depression Neoplasm Asthma Brother No problems noted. 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 Pets and animals: Yes Pets and animals: cat(s), dog(s) and horse(s) What is your relationship status?: Panel score (0-1 are the most socially isolated patients): 0 What type of physical activity do you participate in: none, walking and additional Details: would like to start now that it's warm Duration: 15-30 minutes/day Saniya/Spiritism: Sabianist Special saniya needs: No Seatbelt use: always Do you feel safe at home: Yes Do you feel safe in your relationship?: Yes Additional Social history: recently moved out and is now living with a friend Exam Narrative Exam Narrative: Resting in hospital stretcher. Alert and oriented x3. No acute distress. Evaluation of the right leg shows a posterior slab splint with stirrups. This was removed and examined fully. There is some notable irritation of the skin over the anteromedial aspect of the ankle and the superior aspect of the dorsum of the foot. However no full-thickness abrasions for any lacerations. Skin was without tenting and without sign of compromise. Capillary refill less than 2 seconds. Results Last Vital Signs Temp 36.2 C L 10/03/21 23:22 Pulse 64 10/03/21 23:22 Resp 8 L 10/03/21 23:22 BP 120/75 10/03/21 23:22 Pulse Ox 94 10/03/21 23:22 Labs Result diagrams: 10/03/21 08:00 10/04/21 07:00 Labs: Laboratory Results - last 24 hr 10/03/21 10/03/21 10/03/21 08:00 08:00 09:30 WBC 11.93 H RBC 4.66 Hgb 10.5 L Hct 38.5 MCV 82.6 MCH 22.5 L MCHC 27.3 L RDW 17.9 H Plt Count 530 H MPV 9.6 Immature Gran % 1.2 Neutrophils % 71.9 Lymphocytes % 12.1 Monocytes % 7.4 Eosinophils % 6.5 Basophils % 0.9 Nucleated RBC % 0 Absolute Neutrophils 8.58 H Absolute Lymphocytes 1.44 Absolute Monocytes 0.88 H Absolute Eosinophils 0.78 H Absolute Basophils 0.11 Sodium 138 Potassium 4.5 Chloride 99 Carbon Dioxide 31.0 Anion Gap 8.0 BUN 67 H Creatinine 2.3 H Estimated GFR/1.73 m2 21.09 Glucose 157 H Calcium 9.2 Magnesium 1.9 Total Bilirubin 0.5 AST 21 ALT 51 Alkaline Phosphatase 140 H Troponin I < 50 Total Protein 8.0 Albumin 3.5 Urine Color Yellow Urine Clarity Sl Cloudy Urine pH 6.0 Ur Specific [place] 1.020 Urine Protein Negative Urine Ketones Negative Urine Blood Negative Urine Nitrite Negative Urine Bilirubin Negative Urine Urobilinogen 0.2 Ur Leukocyte Esterase Small H Urine RBC 0-2 Urine WBC 10-20 H Ur Epithelial Cells Urine Crystals Negative Urine Bacteria Many Urine Casts 5-10 WBC Urine Mucus Negative Ur Culture Indicated? Yes Urine Glucose Negative COVID-19 Source SARS-CoV-2 (PCR) Influenza Type A (PCR) Influenza Type B (PCR) RSV (PCR) 10/03/21 10/04/21 09:47 07:00 WBC RBC Hgb Hct MCV MCH MCHC RDW Plt Count MPV Immature Gran % Neutrophils % Lymphocytes % Monocytes % Eosinophils % Basophils % Nucleated RBC % Absolute Neutrophils Absolute Lymphocytes Absolute Monocytes Absolute Eosinophils Absolute Basophils Sodium 140 Potassium 4.5 Chloride 103 Carbon Dioxide 30.4 Anion Gap 6.6 BUN 71 H Creatinine 2.8 H Estimated GFR/1.73 m2 16.80 Glucose 142 H Calcium 8.9 Magnesium Total Bilirubin AST ALT Alkaline Phosphatase Troponin I Total Protein Albumin Urine Color Urine Clarity Urine pH Ur Specific [place] Urine Protein Urine Ketones Urine Blood Urine Nitrite Urine Bilirubin Urine Urobilinogen Ur Leukocyte Esterase Urine RBC Urine WBC Ur Epithelial Cells Urine Crystals Urine Bacteria Urine Casts Urine Mucus Ur Culture Indicated? Urine Glucose COVID-19 Source Nasal/Nares SARS-CoV-2 (PCR) Negative Influenza Type A (PCR) Negative Influenza Type B (PCR) Negative RSV (PCR) Negative Imaging Imaging Studies: X-ray of the right ankle shows a displaced bimalleolar ankle fracture. There is comminution of the medial malleolar fragment with notable displacement. The talus is laterally shifted with a high Lane B fracture of the fibula. There also appears to be some fractures at the posterior anterior lips laterally.
[2021-10-04 08:05] VITALS: BP 114/63; PULSE 66; RESP 18; TEMP 36.6; O2SAT 90
[2021-10-04] MEDS: HYDROmorphone 2 MG/ML VIAL IVP ×2 (08:14→09:54)
[2021-10-04] MEDS: Atorvastatin 40 MG TAB PO (08:46)
[2021-10-04] MEDS: DULoxetine 30 MG CAP 60 MG PO (08:46)
[2021-10-04] MEDS: Omeprazole 20 MG CAPCR 40 MG PO ×2 (08:46→20:37)
[2021-10-04] MEDS: Metoprolol CR 100 MG TABCR PO (08:46)
[2021-10-04] MEDS: Umeclidinium 7 CAP INHALER 1 CAP IH (08:46)
[2021-10-04] MEDS: Creon, Lipase 6,000 CAPCR 1 CAP PO ×3 (08:46→20:37)
[2021-10-04] MEDS: levETIRAcetam 500 MG TAB PO ×2 (08:47→20:34)
[2021-10-04] MEDS: Allopurinol 100 MG TAB PO (08:47)
[2021-10-04] MEDS: Isosorbide Mononitrate 10 MG TAB PO ×2 (08:47→20:37)
[2021-10-04] MEDS: Acetaminophen 500 MG TAB 1000 MG PO (08:47)
[2021-10-04] MEDS: Aspirin E.C. 81 MG TABEC PO (08:47)
[2021-10-04] MEDS: Torsemide 100 MG TAB PO (08:48)
[2021-10-04] MEDS: Gabapentin 100 MG CAP PO ×3 (08:49→20:37)
[2021-10-04] MEDS: Magnesium Chloride 64 MG TABCR PO ×2 (09:22→20:55)
[2021-10-04] MEDS: Ergocalciferol 50000 UNITS CAP PO (09:22)
[2021-10-04 10:19] VITALS: O2SAT 91
--- NOTE | 2021-10-04 11:04 | PGE_ITS ---
Date of Service Date of service: 10/04/21 Time of Service: 09:50 Assessment and Plan Assessment and plan (1) Closed bimalleolar fracture of right ankle: Start date: 10/04/21 Start time: 09:50 Status: Acute Assessment and plan: Patient in severe pain. Leg wrapped in celeste and cast at this time She is too be on bed rest with gonzalez in place. Block today to help with pain At this time both oral and IV for pain management Elevate leg on pillows. Echo per RESIDENTIAL PROGRAM WORKER request. (2) Medial meniscus tear: Start date: 10/04/21 Start time: 09:50 Status: Acute Assessment and plan: From previous fall, with occult fx to knee. no surgery required, however d/t above on bed rest, Qualifiers: Tear current or old: current Encounter type: subsequent encounter Meniscus tear of knee type: unspecified type Laterality: right Qualified Code(s): S83.241D - Other tear of medial meniscus, current injury, right knee, subsequent encounter (3) Essential hypertension: Start date: 10/04/21 Start time: 09:50 Status: Chronic Assessment and plan: continue home medications (4) CAD (coronary artery disease), [place] coronary artery: Start date: 10/04/21 Start time: 09:50 Status: Chronic Assessment and plan: continue home medication, monitor daily wts and give doses of metalzaone as needed as patient easily goes into diasotlic HF Qualifiers: [place] vs. transplanted heart: [place] heart Associated angina: without angina Qualified Code(s): I25.10 - Atherosclerotic heart disease of [place] coronary artery without angina pectoris (5) Restless leg syndrome: Start date: 10/04/21 Start time: 09:50 Assessment and plan: Continue reopiriole (6) Seizure: Start date: 10/04/21 Start time: 09:50 Assessment and plan: continue keppra (7) Pulmonary hypertension: Start date: 10/04/21 Start time: 09:50 Assessment and plan: continue oxygen, diuretics, daily wts and monitoring fluid status, fluid restriction of 1500 ml (8) Palliative care patient: Start date: 10/04/21 Start time: 09:50 Assessment and plan: will follow she is seen by Dr. sinclair as kaint (9) Diastolic CHF: Start date: 10/04/21 Start time: 09:50 Assessment and plan: as above daily wt, diuretics, extra diuretics as needed, fluid restriction repeat echo today Qualifiers: Heart failure chronicity: chronic Qualified Code(s): I50.32 - Chronic diastolic (congestive) heart failure (10) Diabetes mellitus: Start date: 10/04/21 Start time: 09:50 Status: Chronic Assessment and plan: moniter and treat accordingly Qualifiers: Diabetes mellitus type: type 2 Diabetes mellitus skilled nursing insulin use: with ad terminal makeup operator use Diabetes mellitus complication status: without complication Qualified Code(s): E11.9 - Type 2 diabetes mellitus without complications; 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 esquivel Subjective Subjective Patient reports: still having pain Interval history since last seen: taylor is in bed crying from the pain. She is receiving pain medication now. Will schedule vicodine q 6 h for pain control. She is going to get a block today; after the block will make PRN. She has not had her enoxaparin and it will be changed to q 48 hours based on renal function. Her BUN is slightly up and she does appear dry. Will give 500 bolus over 3 h ours. Monitor daily wt and watch for volume overload; which she can easily go into. She will be getting an echo today for surgery. Otherwise bed rest with catheter in place. Elevated leg on pillow and surgery either or Monday. Exam Const General: cooperative, uncomfortable, no acute distress and other (severe pain to RLE) Nutritional Appearance: obese Orientation: alert, awake and oriented x3 HENMT Mouth: mucous membranes dry Eyes Eyelids: eyelids normal Pupils: PERRL EOM: EOM intact bilaterally Neck Neck: normal visual inspection and no JVD Lymphatic: no lymphadenopathy noted Resp Effort & Inspection: normal respiratory effort Auscultation: clear to auscultation bilaterally Cardio Jugular venous pressure: no JVD Rhythm: regular rhythm Heart Sounds: S1 normal GI Auscultation: normal bowel sounds General: No CVA tenderness and deferred Skin General skin exam: no rashes or lesions noted Neuro General: patient alert, patient awake and patient oriented x3 Cognition: normal cognition Speech: speech normal Gait: normal gait Extrem General: abnormal to inspection Right lower extremity: abnormal to inspection and ROM limited Objective Last Vital Signs Temp 36.6 C 10/04/21 08:05 Pulse 66 10/04/21 08:05 Resp 18 10/04/21 08:05 BP 114/63 10/04/21 08:05 Pulse Ox 91 L 10/04/21 10:19 Laboratory Results - last 24 hr 10/04/21 07:00 Sodium 140 Potassium 4.5 Chloride 103 Carbon Dioxide 30.4 Anion Gap 6.6 BUN 71 H Creatinine 2.8 H Estimated GFR/1.73 m2 16.80 Glucose 142 H Calcium 8.9
--- NOTE | 2021-10-04 11:08 | DI.CT_ITS ---
Exam(s) CT LOWER EXTREMITY RT WO EXAM: CT LOWER EXTREMITY RT WO CLINICAL HISTORY: Ankle fx/dx. TECHNIQUE: Imaging Protocol: Axial computed tomography images with coronal and sagittal reformatted images were created and reviewed. CONTRAST MATERIAL: Intravenous: None COMPARISON: CT CT LOWER EXTREMITY RT WO from 09/26/2021 CR,XR XR ANKLE RT COMPLETE from 10/03/2021 FINDINGS: Generalized osteopenia. There is a comminuted fracture distal medial tibia involving malleolus and slightly above. There is also fracture the anterior aspect tibial plafond with some displacement of the fracture fragment. There is also a nondisplaced fracture of the posterior malleolus. There is a mildly displaced fracture of the distal fibula noted located 5-6 cm above the lateral mall eolus tip. Is no fracture at the tip of the lateral malleolus. Talar dome appears intact although there is a small 1-2 millimeter ossified density seen in the tibio talar joint at the mid aspect. Mild widening of the mortise is noted. Subtalar joint appears unremarkable as does the sustentacular talus and sinus tarsi area. There is a moderate size inferior calcaneal spur noted. IMPRESSION: Multilevel fractures as described above. RADIATION DOSE DELIVERED: 340.43mGy.cm Total DLP DATA REPOSITORY: All CT scans at this facility are submitted to the National Radiology Data Registry (NRDR) Dose Index Registry (DIR) with the [employer] (ACR). RADIATION OPTIMIZATION: All CT scans at this facility use at least one of these dose optimization te chniques: automated exposure control; mA and/or kV adjustment per patient size (includes targeted exa ms where dose is matched to clinical indication); or iterative reconstruction.
--- NOTE | 2021-10-04 11:27 | DI.RAD_ITS ---
Exam(s) XR KNEE RT 2V AP,LAT EXAM: XR KNEE RT 2V AP,LAT CLINICAL HISTORY: Quad rupture. TECHNIQUE: 2D digital imaging was performed. COMPARISON: CR,XR XR KNEE RT 4V+ from 09/25/2021 FINDINGS: No evidence of fracture but there is a joint effusion seen on the lateral view. This may signify internal derangement IMPRESSION: DATA REPOSITORY: RADIATION DOSE DELIVERED:
[2021-10-04 11:35] VITALS: BP 121/52; PULSE 62; RESP 14; TEMP 36.5; O2SAT 95
--- NOTE | 2021-10-04 12:27 | W.ANESNERVE ---
Nerve Block Single Injection Procedure Date and Time Date Performed: 10/04/21 Procedure Start: 11:40 Location Where Procedure Performed Procedure Location: PACU Reason Performed: Acute Pain Management Pain Diagnosis: Ankle Pain Requesting Provider: Kim Timeout Performed Timeout Performed: Yes Monitoring Used ECG, Blood Pressure, SpO2, ETCO2 and See EMR for corresponding vital signs Sterility Sterility: Hand Hygiene, Surgical Cap, Surgical Mask, Sterile Gloves, Eye Protection and Chlorhexidine Sedation Given During Procedure Sedation Given (Indicate Dose Given): No Sedation given Patient Mental Status Patient Mental Status: Sedate with meaningful communication (Previously received sedation on floor prior to transport ) Nerve Block 1st Nerve Block: Laterality: Right Block Type: Femoral Needle / Catheter Used: 120mm SonoPlex II Local Anesthetic Bolus (Indicate Dose Given): Lidocaine used for local infiltration of skin, Injected in 3-5ml increments after negative blood aspiration, Bupivacaine 0.375% Dose:: 20mL and Exparel Dose:: 10mL Additives (Indicate Dose Given): None Ultrasound: Sterile probe cover and gel used Ultrasound Image Saved?: Yes Nerve Stimulator: Not Used Paresthesia: None Procedure Tolerated: No Complications Procedure Outcome: Successful Performed By: Zaria Kuhn 2nd Nerve Block: Laterality: Right Block Type: Popliteal Sciatic Needle / Catheter Used: 120mm SonoPlex II Local Anesthetic Bolus (Indicate Dose Given): Lidocaine used for local infiltration of skin, Bupivacaine 0.375% Dose:: 20mL and Exparel Dose:: 10mL Additives (Indicate Dose Given): None Ultrasound: Sterile probe cover and gel used Ultrasound Image Saved?: Yes Nerve Stimulator: Not Used Paresthesia: None Procedure Tolerated: No Complications Procedure Outcome: Successful Performed By: Zaria Kuhn
[2021-10-04] MEDS: Enoxaparin 30 MG/0.3 ML SYR SC (13:28)
[2021-10-04] MEDS: Lactated Ringers 500 ML 165 ML IV (13:40)
[2021-10-04 14:03] VITALS: BP 102/63; PULSE 61; RESP 14; TEMP 36.3; O2SAT 94
[2021-10-04] MEDS: Bupivacaine 0.25% Pres-Free 30 ML VIAL (15:19)
[2021-10-04] MEDS: Bupivacaine 0.5% Pres-Free 30 ML VIAL (15:20)
[2021-10-04 15:40] VITALS: BP 126/61; PULSE 57; RESP 12; TEMP 36.3; O2SAT 98
--- NOTE | 2021-10-04 18:48 | PDOC.CMIN ---
- If Service Date Differs Date of service: 10/04/21 Time of Service: 18:49 Care Management Initial Assess REASON FOR HOSPITALIZATION:: Fx of R ankle PAST MEDICAL HISTORY/PAST SURGICAL HISTORY:: All Active Problems. Essential hypertension (Chronic 06/13/13). Diabetes mellitus (Chronic 09/20/10). DVT prophylaxis (Acute). CAD (coronary artery disease), [place] coronary artery (Chronic). Closed bimalleolar fracture of right ankle (Acute). Closed avulsion fracture of condyle of right femur (Acute). Cyst of lateral meniscus of right knee (Acute). Tear of lateral meniscus of right knee (Acute). Medial meniscus tear (Acute). Wound abscess (Acute). Discharge planning issues (Acute). Medical History. Abnormal mammography. 08/10/06. Acute kidney injury superimposed on chronic kidney disease. [id number] kidney injury. Altered mental status. Anemia. Ankle pain (03/13/14). Annual physical exam (12/14/15). Atrial fibrillation. Atrial flutter. BMI 40.0-44.9, adult (12/02/14). CAD (coronary artery disease), [place] coronary artery. Carpal tunnel syndrome. Carpal tunnel syndrome (08/10/06). BILATERAL. R S/P SURGERY. Cervical disc disorder with myelopathy (08/21/08). S/P surgery x 2. Cervical spondylosis with myelopathy. Chest pain. Neg Stress test. CHF (congestive heart failure). Chronic obstructive lung disease. CKD (chronic kidney disease) stage 3, GFR 30-59 ml/min. Cr about 2.5. CKD stage 4 due to type 2 diabetes mellitus. Congestive heart failure. Constipation. Dehydration. Diabetes mellitus. 09/20/10 Positive Microalbumin. Diastolic CHF. DNR no code (do not resuscitate). DVT (deep venous thrombosis). Dysuria. Essential hypertension. Folate deficiency (02/15/16). Gout. Gout (07/06/11). Gram-positive bacteremia. Greater trochanteric bursitis of left hip. Hammer toe. Left/right. HAP (hospital-acquired pneumonia) (01/15/19). HCAP (healthcare-associated pneumonia). Heart failure with preserved ejection fraction, borderline, class III. Hepatomegaly. 06/10/04. Hip joint inflamed (09/03/15). Hip pain, left. Hip pain, right. Hyperglycemia. Hyperlipidemia (08/10/00). Hypertension. Hypomagnesemia. Hypoxia. IDDM (insulin dependent diabetes mellitus). Left hip pain. Low back pain (04/10/03). DISC HERNIATION L4. MULTILEVEL DJD/SPINAL STENOSIS BY MRI; S/P surgery. Lump in neck. Macrocytic anemia. Menopausal syndrome. 07/11/03. Multiple falls. Muscle fatigue. 03/04/13. Myoclonic epileptic seizures. Numbness and tingling in left upper extremity. Palliative care patient. Pancreatic atrophy. Posterior tibial tendon dysfunction. 02/03/16. Postmenopausal bleeding. neg. endometrial biopsy. Postoperative wound dehiscence (12/23/15). Prerenal azotemia. Primary osteoarthritis of left hip (09/17/15). Pulmonary hypertension. Renal impairment (07/11/03). ADRENAL MASS. F/U W/ KINLAW. positive microalbumin. Restless leg syndrome. Rotator cuff syndrome (08/01/09). Seizure. Shingles. Smoker (06/30/16). 01/17/17 1-2 cig/wk. SOB (shortness of breath). Spinal stenosis of lumbar region (02/15/16). Spinal stenosis of lumbar region at multiple levels. Tarsal tunnel syndrome. 06/11/13. Tarsal tunnel syndrome (06/11/13). Trochanteric bursitis. 03/18/13. Upper respiratory tract infection (08/03/15). UTI (urinary tract infection). Vaginal atrophy. Vitamin D deficiency. Vitamin D deficiency. Weakness. Surgical History. Arthrodesis. right 2nd toe. Cataract (01/07/14). FOLLOWED BY OPTICAL EXPRESSIONS. cervical repair (~10/2008). C6-C7 DISK; RECURRENT SURGERY. Cholecystectomy (07/31/13). Endometrial Biopsy. NEG. H/O arthrodesis. right second toe. H/O Spinal surgery. multiple spine surgeries; low back x 2; She had multilevel DJD and spinal stenosis; disc herniation. 2008-cervical repair; C6-C7 disc; recurrent surgery. History of bilateral tubal ligation. 09/11/80. History of gynecologic surgery. endometrial biopsy-neg. History of hip surgery. 11/10/15 left hip arthroplasty 12/04/15-placement of wound VAC to left hip. History of orthopedic surgery. 09/11/97 tarsal tunnel release. Left eye surgery. 12/31/17. Ligation of fallopian tube (~1980). Open Carpal Tunnel release. Right wrist surgery. 10/26/17. Rotator Cuff Repair (~1980). S/P CABG (coronary artery bypass graft) (01/03/19). 4 vessel CABG and LA appendage excision, Dr. Nav Wang, [facility], [place], [place] S/P carpal tunnel release. S/P cholecystectomy. 09/11/12. S/P rotator cuff repair. 09/11/80. SPINE SURGERY. Multiple spine surgeries, low back x 2. She had multilevel DJD and spinal stenosis, disc herniation. Status post incision and drainage. 12/04/15 left hip surgical wound dehiscence and infection. tarsal tunnel release (~1997). Total replacement of hip. [facility]; LEFT HIP PREVIOUS FUNCTIONAL STATUS/SOCIAL/FAMILY SUPPORTS:: Ann-Marie resides in [place] with a friend who was recently . She is and has four adult children. Ann-Marie spends her time at home watching television, crocheting, baking, and shares her dog rarely leaves her side when she is home. 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 Her daughter, Elli, helps to care for her at home. Previous to this admission, she only required assistance with bathing. CURRENT FUNCTIONAL STATUS:: Bibi was having an echo earlier today when CM attempted to meet with her. Upon further attempts, Bibi was sleeping, and due to her reported high pain levels, CM chose not to wake her. Per report, she will go to the OR later this week. She will remain at [facility] awaiting surgery. CM will send updated referrals to the [facility] and [facility] for rehab post surgically. She is currently on bed rest. CM will continue to follow. ADVANCE DIRECTIVES:: [facility] on file. [facility] appointment also on file, daughter, Savannah, listed as agent. Has patient been provided with info about the portal/API?: No Did the patient sign up for the portal?: No CODE STATUS:: DNR/DNI INSURANCE COVERAGE / FINANCIAL ISSUES:: [employer] (MCR replacement), [facility] CURRENT HOME/COMMUNITY SERVICES/EQUIPMENT:: Tub seat, FWW, glucometer, O2. PRIMARY CARE PHYSICIAN:: Laisha Mcmahon POTENTIAL DISCHARGE NEEDS:: Referrals for rehab post surgically, follow up appointments. PATIENT/FAMILY EDUCATION NEEDS:: Review discharge instructions, discuss [employer]. ANTICIPATED BARRIERS TO DISCHARGE:: None identified at this time. TRANSPORTATION:: RCT vs facility w/c van. PLAN:: Bibi will go to the OR later this week. She will require SNF upon discharge, CM will discuss options and send referrals accordingly. She will likely transport via w/c van, coordianted by CM. She will follow up with her PCP and discharge plan of care. CM will continue to follow. Readmission - Within the Past 30 Days Yes or No: Y - Date of First Admission Date of 1st Admission: 09/27/21 - Date of this Admission Date of Admission: 10/03/21 This admission was: Through ED - Office Visit Since 1st Admission Have you seen your PCP in the office since discharge?: No Had an appointment Been Scheduled?: Yes Date of Scheduled Appointment: 10/14/21 - I. Interview patient and/or Family Difficulty reaching your doctor or getting an office appt?: No Have you had trouble purchasing/ or taking medication?: No Have you had trouble with getting meals at home?: No Did you feel ready for discharge when you left the last time: Yes Were services received that you thought were set up on disch: Yes What services were received?: HH PT, OT, [employer] How do you think you became sick enough to come back?: Fall, broken ankle - ED visits How many ED visits in the past 12 months: 4 - Assessment for Readmission Summary of readmission circumstances, based upon interviews: Bibi was recently discharged home with HH PT, OT, [employer]. She was medically cleared for discharge. It was recommended that she go to short term rehab, but the only facility that she would agree to go to, the [facility], was closed for admission at that time. She would not consider another option, and chose to return home with supports. While at home, she fell while hurrying to go to the bathroom. Per report, she was using her FWW at the time of the fall. She will remain at [facility] until surgery, and will go to SNF post surgically. CM will discuss options for SNF, although it has been reported that she is willing to go to [facility] or the [facility]. will continue to follow.
[2021-10-04] MEDS: rOPINIRole 1 MG TAB 2 MG PO (20:45)
[2021-10-05] VITALS (18 sets, daily range): BP systolic 88–127; BP diastolic 39–63; PULSE 57–66; RESP 12–18; TEMP 36–37.2; O2SAT 92–97; BMI 39.0
[2021-10-05 07:16] LABS: Anion Gap 5.5 mmol/L (3-11); BUN 61 mg/dL (7-18); CO2 30.5 mmol/L (21.0-32.0); CREATININE 2.4 mg/dL (0.55-1.02); Calcium 8.7 mg/dL (8.5-10.1); Chloride 101 mmol/L (98-107); Estimated GFR 20.08 (mL/min/1.73m2); Glucose 97 mg/dL (74-106); Potassium 3.6 mmol/L (3.5-5.1); Sodium 137 mmol/L (136-145)
[2021-10-05] MEDS: HYDROmorphone 2 MG/ML VIAL IVP (08:01)
[2021-10-05] MEDS: Omeprazole 20 MG CAPCR 40 MG PO ×2 (08:36→19:49)
[2021-10-05] MEDS: Metoprolol CR 100 MG TABCR PO (09:00)
--- NOTE | 2021-10-05 09:00 | DI.RAD_ITS ---
Exam(s) XR ANKLE RT COMPLETE EXAM: XR ANKLE RT COMPLETE CLINICAL HISTORY: Fracture reduction. TECHNIQUE: 2D digital imaging was performed of the right ankle. Four images were obtained. AP, lat eral and oblique views were obtained. COMPARISON: CR,XR XR ANKLE RT COMPLETE from 10/03/2021 FINDINGS: BONES: There again seen distal fibular and tibial fractures. The fractures are angulated and displac ed laterally. No bony destructive lesion is seen. There is a large calcaneal spur. JOINTS: There is persistent malalignment of the ankle mortise. It appears to have slightly progresse d compared to the prior examination with an increased lateral subluxation of the talus relative to th e tibia. There again seen degenerative changes in the foot. SOFT TISSUE: Soft tissue swelling of the ankle is noted. The patient's ankle is in a cast. IMPRESSION: Right ankle fracture subluxation as described above. Findings suspicious for increased subluxation o f the ankle mortise compared to 10/03/2021. DATA REPOSITORY: RADIATION DOSE DELIVERED:
[2021-10-05] MEDS: Isosorbide Mononitrate 10 MG TAB PO ×2 (09:01→17:37)
[2021-10-05] MEDS: Creon, Lipase 6,000 CAPCR 1 CAP PO ×3 (09:01→19:49)
[2021-10-05] MEDS: Gabapentin 100 MG CAP PO ×3 (09:01→19:49)
[2021-10-05] MEDS: Calcium 600mg/Vit D 200U TAB 1 TAB PO ×2 (09:01→19:49)
[2021-10-05] MEDS: Aspirin E.C. 81 MG TABEC PO (09:02)
[2021-10-05] MEDS: DULoxetine 30 MG CAP 60 MG PO (09:02)
[2021-10-05] MEDS: Allopurinol 100 MG TAB PO (09:02)
[2021-10-05] MEDS: Atorvastatin 40 MG TAB PO (09:02)
[2021-10-05] MEDS: Torsemide 100 MG TAB PO (09:03)
[2021-10-05] MEDS: levETIRAcetam 500 MG TAB PO ×2 (09:04→19:49)
[2021-10-05] MEDS: Insulin Glargine 300 UNITS/3 ML PEN 35 UNITS SC ×2 (09:06→19:52)
[2021-10-05] MEDS: Nystatin POWDER 60 GM JAR TP ×3 (10:18→19:52)
[2021-10-05] MEDS: Umeclidinium 7 CAP INHALER 1 CAP IH (10:51)
[2021-10-05] MEDS: Normal Saline Flush 10 ML SYR IVP (10:52)
[2021-10-05] MEDS: ACETAMINOPHEN 1,000 MG/100 ML BTL 400 MG IVPB ×3 (10:53→21:36)
[2021-10-05] MEDS: Magnesium Chloride 64 MG TABCR PO ×2 (10:53→21:35)
[2021-10-05] MEDS: metOLazone 2.5 MG TAB 5 MG PO (10:56)
--- NOTE | 2021-10-05 12:13 | ANES.PREOP_ITS ---
General Info Date of Service Date Performed: 10/05/21 Height: 5 ft 10 in Weight: 123.5 kg Body Mass Index (BMI): 39.0 Surgical Procedure: Operation Date: 10/05/21 14:25 Proposed Procedures Side Surgeon p Closed Reduction w/splinting Right Mesfin Edouard MD Operation Date: 10/07/21 12:25 Proposed Procedures Side Surgeon p Ankle ORIF Right Mesfin Edouard MD Meds Allergies and Home Medications Allergies Allergy/AdvReac Type Severity Reaction Status Date / Time oxycodone Allergy Severe Psychosis Verified 09/26/21 09:03 venom-honey bee Allergy Severe ANAPHYLAXIS Verified 09/26/21 09:03 adhesive Allergy BLISTERS Verified 09/26/21 09:03 Home Medication Medication Instructions Recorded lancets 33 gauge #100 each 12/18/18 polyethylene glycol 3350 [Miralax] 1 g PO PRN PRN 01/15/19 lancets 25 gauge #100 each 01/29/19 B-complex with vitamin C 1 tab PO DAILY 09/19/19 calcium [id number] vitaliy 2 cap PO DAILY 03/11/20 aspirin 81 mg PO DAILY #0 tab 06/01/20 albuterol sulfate 2.5 mg INHALATION Q2H PRN PRN #180 09/10/20 ml boqbhf-zeatdnkb-pqipdem 1 cap PO TID #270 cap 10/01/20 6,000-19,000-30,000 unit capsule,delayed rel magnesium chloride 71.5 mg 71.5 mg PO BID #180 tab 10/19/20 (magnesium chloride) tablet,delayed release meclizine 12.5 mg tablet 12.5 mg PO TID PRN #60 tab 12/07/20 pen needle, diabetic 31 gauge x #450 each 12/10/20/ budesonide-formoterol HFA 160 2 puff INHALATION BID 01/07/21 mcg-4.5 mcg/actuation aerosol inhaler insulin aspart U-100 100 unit/mL 15 unit SC TID #30 ml 01/07/21 (3 mL) subcutaneous pen insulin glargine 100 unit/mL (3 35 unit SC BID #90 ml 01/07/21 mL) subcutaneous pen sitagliptin 25 mg tablet 25 mg PO DAILY #90 tab 01/07/21 umeclidinium 62.5 mcg/actuation 1 inh INHALATION DAILY #30 ea 01/07/21 blister powder for inhalation epinephrine 0.3 mg/0.3 mL 0.3 mg IM ONCE #2 ea 02/04/21 injection, auto-injector metoprolol succinate 100 mg 100 mg PO DAILY #90 tab 02/18/21 tablet,extended release 24 hr omeprazole 40 mg capsule,delayed 40 mg PO BID #180 cap 02/18/21 release levetiracetam 500 mg tablet 500 mg PO BID #180 tab 02/22/21 torsemide 100 mg tablet 100 mg PO DAILY #90 tab 03/19/21 blood sugar diagnostic #300 each 04/08/21 ergocalciferol (vitamin D2) 1,250 50,000 unit PO M-W-F #36 tab-cap 04/08/21 mcg (50,000 unit) capsule potassium chloride 20 mEq 40 meq PO BID #180 tab 04/21/21 tablet,extended release allopurinol 100 mg tablet 100 mg PO DAILY #90 tab-cap 05/27/21 metolazone 5 mg tablet 5 mg PO .4 times week PRN tab 05/28/21 gabapentin 100 mg capsule 100 mg PO TID #270 cap 06/07/21 triamcinolone acetonide 0.1 % 1 applic TOPICAL BID #80 g 07/20/21 topical cream atorvastatin 40 mg tablet 40 mg PO DAILY #90 tab-cap 08/03/21 duloxetine 60 mg capsule,delayed 60 mg PO DAILY #90 tab-cap 08/03/21 release isosorbide mononitrate 10 mg tablet 10 mg PO BID #180 tab 08/03/21 ropinirole 2 mg tablet 2 mg PO QPM PRN #90 tab 08/03/21 mupirocin 2 % topical ointment 1 applic TOPICAL BID #22 g 08/24/21 acetaminophen [Tylenol Extra 500 mg PO TID #0 tab 09/30/21 Strength] hydrocodone-acetaminophen 1 tab PO Q6H PRN #12 tab 09/30/21 Current Visit Medications: Current Medications Generic Name Dose Route Start Last Admin Trade Name Freq PRN Reason Stop Dose Admin Albuterol Sulfate 2.5 mg 10/03/21 09:40 Albuterol 2.5 Mg/3 Ml Inh Soln Vial UPD Q2H PRN PRN Allopurinol 100 mg 10/03/21 08:30 10/05/21 09:02 Allopurinol 100 Mg Tab PO 100 mg DAILY URBANO Administration Lipase/Protease/Amylase 1 cap 10/03/21 08:30 10/05/21 09:01 Creon, Lipase 6,000 Capcr PO 1 cap TID URBANO Administration Aspirin 81 mg 10/03/21 08:30 10/05/21 09:02 Aspirin E.C. 81 Mg Tabec PO 81 mg DAILY URBANO Administration Atorvastatin Calcium 40 mg 10/03/21 08:30 10/05/21 09:02 Atorvastatin 40 Mg Tab PO 40 mg DAILY URBANO Administration Calcium/Vitamin D 1 tab 10/05/21 08:30 10/05/21 09:01 Calcium 600mg/Vit D 200u Tab PO 1 tab BID URBANO Administration Device 1 each 10/03/21 10:00 Inhaler, Assist Device MC DIRECTED [facility] Dextrose/Water 0 gm 10/03/21 09:49 Dextrose 50%-Water 25 Gm/50 Ml Syr IVP DIRECTED PRN Dimethicone/Zinc Oxide 0 gm 10/03/21 09:40 Beryl Protect Cream 142 Gm Tube TP PRN PRN Docusate Sodium 100 mg 10/03/21 09:40 Docusate Sodium 100 Mg Cap PO TID PRN PRN Duloxetine HCl 60 mg 10/03/21 08:30 10/05/21 09:02 Duloxetine 30 Mg Cap PO 60 mg DAILY URBANO Administration Enoxaparin Sodium 30 mg 10/04/21 12:00 10/04/21 13:28 Enoxaparin 30 Mg/0.3 Ml Syr SC 30 mg Q24H URBANO Administration Ergocalciferol 50,000 units 10/04/21 08:30 10/04/21 09:22 Ergocalciferol 26350 Units Cap PO 50,000 units MoWeFr@0830 URBANO Administration Gabapentin 100 mg 10/03/21 08:30 10/05/21 09:01 Gabapentin 100 Mg Cap PO 100 mg TID URBANO Administration Acetaminophen 1,000 mg in 100 mls @ 400 mls/hr 10/05/21 10:00 10/05/21 10:53 Ofirmev IVPB 400 mls/hr Q6H URBANO Administration Morphine Sulfate 100 mg/ 100 mg in 100 mls @ 0 mls/hr 10/05/21 10:45 Sodium Chloride/ Device IV DIRECTED [facility] Protocol Titrate IV Miscellaneous Supplies 1 each 10/03/21 08:15 Iv Access IV DIRECTED [facility] Insulin Aspart 0 units 10/03/21 12:00 10/05/21 09:05 Insulin Aspart 300 Units/3 Ml Pen SC Not Given 0800,1200,1700 [facility] Protocol Insulin Glargine 35 units 10/03/21 08:30 10/05/21 09:06 Insulin Glargine 300 Units/3 Ml Pen SC 35 unit BID URBANO Administration Isosorbide Mononitrate 10 mg 10/03/21 08:30 10/05/21 09:01 Isosorbide Mononitrate 10 Mg Tab PO 10 mg BID [facility] Administration Ketorolac Tromethamine 15 mg 10/05/21 09:54 Ketorolac 15 Mg/Ml Vial IVP 10/10/21 09:53 Q6H PRN PRN Levetiracetam 500 mg 10/03/21 20:00 10/05/21 09:04 Levetiracetam 500 Mg Tab PO 500 mg BID URBANO Administration Magnesium Chloride 64 mg 10/03/21 22:00 10/05/21 10:53 Magnesium Chloride 64 Mg Tabcr PO 64 mg BID@1000,2200 [facility] Administration Magnesium Hydroxide 30 ml 10/03/21 09:40 Milk Of Magnesia 30 Ml Cup PO DAILY PRN PRN Metolazone 5 mg 10/05/21 11:00 10/05/21 10:56 Metolazone 2.5 Mg Tab PO 5 mg DAILY PRN PRN Administration chf Metoprolol Succinate 100 mg 10/03/21 08:30 10/05/21 09:00 Metoprolol Cr 100 Mg Tabcr PO 100 mg DAILY U[facility]ANO Administration Naloxone HCl 0.4 mg 10/03/21 23:34 Naloxone 0.4 Mg/Ml Vial IVP PRN PRN Naloxone HCl 0 mg 10/05/21 09:43 Naloxone 0.4 Mg/Ml Vial IVP PRN PRN Nystatin 0 gm 10/05/21 08:30 10/05/21 10:18 Nystatin Powder 60 Gm Jar TP 1 applic TID URBANO Administration Omeprazole 40 mg 10/03/21 07:30 10/05/21 08:36 Omeprazole 20 Mg Capcr PO 40 mg BID@0730,2000 [facility] Administration Pt's Own Calcium/ 2 each 10/04/21 08:30 10/05/21 10:17 Magnesium/Vit D PO Not Given DAILY URBANO Polyethylene Glycol 17 gm 10/03/21 09:40 Polyethylene Glycol 3350 17 Gm Packet PO DAILY PRN PRN Constipation Ropinirole HCl 2 mg 10/03/21 09:46 10/04/21 20:45 Ropinirole 1 Mg Tab PO 2 mg HS PRN PRN Administration restless leg(s) Sodium Chloride 0 ml 10/03/21 08:03 10/05/21 10:52 Normal Saline Flush 10 Ml Syr IVP 10 ml PRN PRN Administration Torsemide 100 mg 10/03/21 08:30 10/05/21 09:03 Torsemide 100 Mg Tab PO 100 mg DAILY URBANO Administration Umeclidinium [place] 1 cap 10/03/21 08:30 10/05/21 10:51 Umeclidinium 7 Cap Inhaler IH 1 cap DAILY URBANO Administration PFSH Active Problems Active Problems: Problem Status Onset Code Renal insufficiency N28.9 Essential hypertension 06/13/13 I10 Diabetes mellitus 09/20/10 E11.9 DVT prophylaxis Z29.9 CAD (coronary artery disease), [place] coronary artery I25.10 Closed bimalleolar fracture of right ankle S82.841A Closed avulsion fracture of condyle of right femur S72.411A Cyst of lateral meniscus of right knee M23.000 Tear of lateral meniscus of right knee S83.281A Medial meniscus tear S83.249A Wound abscess Discharge planning issues Z02.9 Medical History Medical History Abnormal mammography 08/10/06 Acute kidney injury superimposed on chronic kidney disease Cjjri-iq-yddtaap kidney injury Altered mental status Anemia Ankle pain (03/13/14) Annual physical exam (12/14/15) Atrial fibrillation Atrial flutter BMI 40.0-44.9, adult (12/02/14) Carpal tunnel syndrome Carpal tunnel syndrome (08/10/06) BILATERAL R S/P SURGERY Cervical disc disorder with myelopathy (08/21/08) S/P surgery x 2 Cervical spondylosis with myelopathy Chest pain Neg Stress test CHF (congestive heart failure) Chronic obstructive lung disease CKD (chronic kidney disease) stage 3, GFR 30-59 ml/min Cr about 2.5 CKD stage 4 due to type 2 diabetes mellitus Congestive heart failure Constipation Dehydration Diabetes mellitus 09/20/10 Positive Microalbumin Diastolic CHF DNR no code (do not resuscitate) DVT (deep venous thrombosis) Dysuria Essential hypertension Folate deficiency (02/15/16) Gout Gout (07/06/11) Gram-positive bacteremia Greater trochanteric bursitis of left hip Hammer toe Left/right HAP (hospital-acquired pneumonia) (01/15/19) HCAP (healthcare-associated pneumonia) Heart failure with preserved ejection fraction, borderline, class III Hepatomegaly 06/10/04 Hip joint inflamed (09/03/15) Hip pain, left Hip pain, right Hyperglycemia Hyperlipidemia (08/10/00) Hypertension Hypomagnesemia Hypoxia IDDM (insulin dependent diabetes mellitus) Left hip pain Low back pain (04/10/03) DISC HERNIATION L4. MULTILEVEL DJD/SPINAL STENOSIS BY MRI; S/P surgery Lump in neck Macrocytic anemia Menopausal syndrome 07/11/03 Multiple falls Muscle fatigue 03/04/13 Myoclonic epileptic seizures Numbness and tingling in left upper extremity Palliative care patient Pancreatic atrophy Posterior tibial tendon dysfunction 02/03/16 Postmenopausal bleeding neg. endometrial biopsy Postoperative wound dehiscence (12/23/15) Prerenal azotemia Primary osteoarthritis of left hip (09/17/15) Pulmonary hypertension Renal impairment (07/11/03) ADRENAL MASS. F/U W/ KINLAW positive microalbumin Restless leg syndrome Rotator cuff syndrome (08/01/09) Seizure Shingles Smoker (06/30/16) 01/17/17 1-2 cig/wk SOB (shortness of breath) Spinal stenosis of lumbar region (02/15/16) Spinal stenosis of lumbar region at multiple levels Tarsal tunnel syndrome 06/11/13 Tarsal tunnel syndrome (06/11/13) Trochanteric bursitis 03/18/13 Upper respiratory tract infection (08/03/15) UTI (urinary tract infection) Vaginal atrophy Vitamin D deficiency Vitamin D deficiency Weakness Surgical History Surgical History Arthrodesis right 2nd toe Cataract (01/07/14) FOLLOWED BY [employer] cervical repair (~10/2008) C6-C7 DISK; RECURRENT SURGERY Cholecystectomy (07/31/13) Endometrial Biopsy NEG H/O arthrodesis right second toe H/O Spinal surgery multiple spine surgeries; low back x 2; She had multilevel DJD and spinal stenosis; disc herniation. 2009-cervical repair; C6-C7 disc; recurrent surgery. History of bilateral tubal ligation 09/11/80 History of gynecologic surgery endometrial biopsy-neg History of hip surgery 11/10/15 left hip arthroplasty 12/04/15-placement of wound VAC to left hip History of orthopedic surgery 09/11/97 tarsal tunnel release Left eye surgery 12/31/17 Ligation of fallopian tube (~1980) Open Carpal Tunnel release Right wrist surgery 10/26/17 Rotator Cuff Repair (~1980) S/P CABG (coronary artery bypass graft) (01/03/19) 4 vessel CABG and LA appendage excision, Dr. Nav Wang, [facility] [place], [place], [place] S/P carpal tunnel release S/P cholecystectomy 09/11/12 S/P rotator cuff repair 09/11/80 SPINE SURGERY Multiple spine surgeries, low back x 2. She had multilevel DJD and spinal stenosis, disc herniation Status post incision and drainage 12/04/15 left hip surgical wound dehiscence and infection tarsal tunnel release (~1997) Total replacement of hip [facility]; LEFT HIP Tobacco Smoking/Tobacco Use Status: Former Tobacco Use Tobacco: How many years used: 20 Alcohol Alcohol Intake: never Substance Use Substance use: Never Substance use type: does not use Vital Signs and Lab Results Vital Signs Most Recent Vital Signs in EMR: Most Recent Vital Signs Temp Pulse Resp BP Pulse Ox 37.2 C 64 12 101/58 L 94 10/05/21 11:19 10/05/21 11:19 10/05/21 11:19 10/05/21 11:19 10/05/21 11:19 Point of Care Results Point of Care Results: Finger Stick Blood Glucose 136 10/05/21 11:31 Lab Results Result Diagrams: 10/03/21 08:00 10/05/21 06:25 Blood Type / Crossmatch: No Data to Display Complete Blood Count: White Blood Count 11.93 10^3/uL (4.4-10.8) H 10/03/21 08:00 10/03/21 Red Blood Count 4.66 10^6/uL (3.93-5.22) 10/03/21 08:00 10/03/21 Hemoglobin 10.5 g/dL (11.2-15.7) L 10/03/21 08:00 10/03/21 Hematocrit 38.5 % (36.0-46.0) 10/03/21 08:00 10/03/21 Platelet Count 530 10^3/uL (130-400) H 10/03/21 08:00 10/03/21 Complete Metabolic Panel: Sodium Level 137 mmol/L (136-145) 10/05/21 06:25 10/05/21 Potassium Level 3.6 mmol/L (3.5-5.1) 10/05/21 06:25 10/05/21 Chloride Level 101 mmol/L (98-107) 10/05/21 06:25 10/05/21 Carbon Dioxide Level 30.5 mmol/L (21.0-32.0) 10/05/21 06:25 10/05/21 Blood Urea Nitrogen 61 mg/dL (7-18) H 10/05/21 06:25 10/05/21 Creatinine 2.4 mg/dL (0.55-1.02) H 10/05/21 06:25 10/05/21 Estimated GFR/1.73 m2 20.08 (mL/min/1.73m2) 10/05/21 06:25 10/05/21 Magnesium Level 2.0 mg/dL (1.8-2.4) 10/05/21 06:25 10/05/21 Calcium Level 8.7 mg/dL (8.5-10.1) 10/05/21 06:25 10/05/21 Albumin 3.5 g/dL (3.4-5.0) 10/03/21 08:00 10/03/21 Glucose Level 97 mg/dL (74-106) 10/05/21 06:25 10/05/21 Liver Function Panel: Alanine Aminotransferase (ALT/SGPT) 51 U/L (14-59) 10/03/21 08:00 10/03/21 Aspartate Amino Transf (AST/SGOT) 21 U/L (15-37) 10/03/21 08:00 10/03/21 Coagulation Panel: No Data to Display Cardiac Panel: Troponin I < 50 ng/L (<or=60) 10/03/21 Arterial Blood Gas: No Data to Display Venous Blood Gas: No Data to Display Pancreas Panel: Lipase 48 U/L (73-393) 09/26/21 10:00 09/26/21 Thyroid Panel: No Data to Display Infectious Disease: Coronavirus (COVID-19)(PCR) Negative (Negative) 10/03/21 09:47 10/03/21 Coronavirus 2019 Source Nasal/Nares 10/03/21 09:47 10/03/21 Influenza Virus Type A (PCR) Negative (Negative) 10/03/21 09:47 10/03/21 Influenza Virus Type B (PCR) Negative (Negative) 10/03/21 09:47 10/03/21 Respiratory Syncytial Virus (PCR) Negative (Negative) 10/03/21 09:47 10/03/21 Blood Cultures: No Data to Display Toxicology Panel: No Data to Display Imaging and Studies Imaging and Studies Study information below may be from another EMR and interpreted by another provider. Please see original notes in EMR for more complete details. EKG Summary: 10/04/2021: Exam: Resting ECG Reason for Exam: fall Patient Location: E HR:55 bpm ECG Measurements Heart Rate 55 AXIS DC 145 P -47 QRSd 89 QRS 70 QT 446 T63 QTc 427 Conclusion Sinus bradycardia...P axis (-45,135), rate< 60 I have reviewed and I agree with the emergency room physician's ECG interpretat ion. Electronically signed by: <Electronically signed by Vicky Pickard M.D. in [place]> 10/04/21 0850 Stress Test Summary: 02/07/2018: 1. Myocardial perfusion imaging: Left ventricular size is normal. There is image artifact due to diaphragmatic attenuation, without diagnostic evidence for perfusion abnormality. 2. The calculated left ventricular ejection fraction after stress: 63%. LV global systolic function is normal. No left ventricular regional motion abnormality. Echocardiogram Summary: 10/04/2021: Conclusion Mild concentric left ventricular hypertrophy. Estimated ejection fraction is 60%. Wall motion is normal Normal right ventricular size and systolic function Both atria are normal in size Mildly sclerotic trileaflet aortic valve without stenosis or regurgitation Mild mitral annular calcification, trace mitral regurgitation Normal tricuspid valve with mild regurgitation. Estimated right ventricular sy stolic pressure is 37 mmHg Carotid Artery Summary:: 03/2013: IMPRESSION: 1. Atherosclerosis 2. No evidence of hemodynamically significant cervical carotid artery stenosis. Anesthesia Assessment and Plan Anesthesia History Personal History: No History of Anesthesia Complications Family History: No Family History of Anesthesia Complications Exercise Tolerance Exercise Tolerance: Metabolic Equivalents<4 Pertinent Negatives Pertinent Negatives: No Symptoms of GERD Cardiac & Pulmonary Exam Cardiac Exam: Normal S1/S2 Heart Sounds Pulmonary Exam: Other (Bilateral diminished breath sounds) Implantable Cardiac Device Does patient have a Pacemaker or an ICD?: No Airway Exam Known Difficult Airway: No Mallampati Class: 1 Mouth Opening: Normal (> 3cm) Thyromental Distance: Greater than 3 cm Neck Range of Motion: Limited ROM Neck Circumference: Normal Teeth Condition: Removable Dentures/Plates Upper ASA Classification ASA Score: ASA 4 Emergency Case?: Yes NPO Status NPO Status: Full Stomach Anesthesia Plan Resuscitation Status: DNR Modified During Perioperative Period Resuscitation Modifications: Pt. Requests for Clinical Judgement to be Used Anesthesia Technique: Spinal Anesthesia Airway Planned: Natural Airway Monitors Used: Standard Monitors Preoperative Comments:: Discussed risk of SAB vs GA ETT with patient and understands hypothetical risk of neurological exacerbation of symptoms following SAB, but wishes to proceed versus GA ETT as primary plan. Dr. Edouard has indicated that this is an urgent/emergent case and wishes to proceed now.
[2021-10-05] MEDS: Normal Saline 1,000 ML 15 ML IV (12:20)
--- NOTE | 2021-10-05 12:34 | W.PM.PROGNOT ---
Date of Service Date of service: 10/05/21 Time of Service: 12:34 Assessment and Plan Assessment and plan (1) Closed bimalleolar fracture of right ankle: Start date: 10/05/21 Start time: 12:36 Status: Acute Assessment and plan: Patient in severe pain, unable to control with multimodal analgesics therefore [employer]GER ordered. Leg wrapped in celeste and cast at this time She is too be on bed rest with gonzalez in place. Patient going to surgery today Qualifiers: Encounter type: initial encounter Qualified Code(s): S82.841A - Displaced bimalleolar fracture of right lower leg, initial encounter for closed fracture (2) Medial meniscus tear: Start date: 10/05/21 Start time: 12:37 Status: Acute Assessment and plan: From previous fall, with occult fx to knee. no surgery required, however d/t above on bed rest, Qualifiers: Tear current or old: current Encounter type: subsequent encounter Meniscus tear of knee type: unspecified type Laterality: right Qualified Code(s): S83.241D - Other tear of medial meniscus, current injury, right knee, subsequent encounter (3) Essential hypertension: Start date: 10/05/21 Start time: 12:37 Status: Chronic Assessment and plan: continue home medications (4) CAD (coronary artery disease), [place] coronary artery: Start date: 10/05/21 Start time: 12:37 Status: Chronic Assessment and plan: continue home medication, monitor daily wts and give doses of metalzaone as needed as patient easily goes into diasotlic HF Qualifiers: [place] vs. transplanted heart: [place] heart Associated angina: without angina Qualified Code(s): I25.10 - Atherosclerotic heart disease of [place] coronary artery without angina pectoris (5) Restless leg syndrome: Start date: 10/05/21 Start time: 12:37 Assessment and plan: Continue reopiriole (6) Seizure: Start date: 10/05/21 Start time: 12:37 Assessment and plan: continue keppra (7) Pulmonary hypertension: Start date: 10/05/21 Start time: 12:37 Assessment and plan: continue oxygen, diuretics, daily wts and monitoring fluid status, fluid restriction of 1500 ml (8) Diastolic CHF: Start date: 10/05/21 Start time: 12:38 Assessment and plan: as above daily wt, diuretics, extra diuretics as needed, fluid restriction echo revealed Mild concentric left ventricular hypertrophy. Estimated ejection fraction is 60%. Wall motion is normal Normal right ventricular size and systolic function Both atria are normal in size Mildly sclerotic trileaflet aortic valve without stenosis or regurgitation Mild mitral annular calcification, trace mitral regurgitation Normal tricuspid valve with mild regurgitation. Estimated right ventricular systolic pressure is 37 mmHg Qualifiers: Heart failure chronicity: chronic Qualified Code(s): I50.32 - Chronic diastolic (congestive) heart failure (9) Palliative care patient: Start date: 10/05/21 Start time: 12:37 Assessment and plan: will follow she is seen by Dr. sinclair as ouptatient (10) Diabetes mellitus: Start date: 10/05/21 Start time: 12:39 Status: Chronic Assessment and plan: moniter and treat accordingly Qualifiers: Diabetes mellitus type: type 2 Diabetes mellitus prison insulin use: with prison use Diabetes mellitus complication status: without complication Qualified Code(s): E11.9 - Type 2 diabetes mellitus without complications; Z79.4 - care home (current) use of insulin (11) Renal insufficiency: Start date: 10/05/21 Start time: 12:39 Status: Chronic Assessment and plan: Improved after hydration at baseline (12) DVT prophylaxis: Start date: 10/05/21 Start time: 12:39 Status: Acute Assessment and plan: enxoparain, q 48 (13) Discharge planning issues: Start date: 10/05/21 Start time: 12:39 Status: Acute Assessment and plan: Agrees to go to H and R will need for PT after surgery discussed with Dr. esquivel Subjective Subjective Patient reports: other Interval history since last seen: Patient is going to surgery today. Unable to control pain, therefore [employer]FFIC MANAGER pump started. No other complaints then pain Exam Const General: cooperative, uncomfortable, no acute distress and other (severe pain to RLE) Nutritional Appearance: obese Orientation: alert, awake and oriented x3 HENMT Mouth: mucous membranes dry Eyes Eyelids: eyelids normal Pupils: PERRL EOM: EOM intact bilaterally Neck Neck: normal visual inspection and no JVD Lymphatic: no lymphadenopathy noted Resp Effort & Inspection: normal respiratory effort Auscultation: clear to auscultation bilaterally Cardio Jugular venous pressure: no JVD Rhythm: regular rhythm Heart Sounds: S1 normal GI Auscultation: normal bowel sounds General: No CVA tenderness and deferred Skin General skin exam: no rashes or lesions noted Neuro General: patient alert, patient awake and patient oriented x3 Cognition: normal cognition Speech: speech normal Gait: normal gait Extrem General: abnormal to inspection Right lower extremity: abnormal to inspection and ROM limited Objective Last Vital Signs Temp 37.2 C 10/05/21 11:19 Pulse 64 10/05/21 11:19 Resp 12 10/05/21 11:19 BP 101/58 L 10/05/21 11:19 Pulse Ox 94 10/05/21 11:19 Laboratory Results - last 24 hr 10/05/21 06:25 Sodium 137 Potassium 3.6 Chloride 101 Carbon Dioxide 30.5 Anion Gap 5.5 BUN 61 H Creatinine 2.4 H Estimated GFR/1.73 m2 20.08 Glucose 97 Calcium 8.7 Magnesium 2.0
--- NOTE | 2021-10-05 14:04 | DI.RAD_ITS ---
Exam(s) XR ANKLE RT COMPLETE EXAM: XR ANKLE RT COMPLETE CLINICAL HISTORY: Closed bimalleolar fracture of right ankle TECHNIQUE: 2D and realtime digital imaging was performed. CONTRAST MATERIAL: Refer to procedure report. COMPARISON: CR XR ANKLE RT COMPLETE from 10/05/2021 FINDINGS: Fluoroscopy was provided for Dr. Edouard during the performance of a reduction of the right ankle frac tures dislocation.. Please refer to the procedure report for complete details. Ka,r=0.17 mGy IMPRESSION: RADIATION DOSE DELIVERED:
--- NOTE | 2021-10-05 14:30 | ROE_ITS ---
Date of service: 10/05/21 Time of Service: 14:00 Operative Note Operative Note DATE OF PROCEDURE: 10/05/21 PRE-OP DIAGNOSIS: Right displaced trimalleolar ankle fracture POST-OP DIAGNOSIS: same PROCEDURE: Right trimalleolar ankle fracture closed reduction with manipulation under anesthesia and splinting, CPT # 00[address] SURGEON: Mesfin Edouard LEGAL WRITING PROFESSOR: None None ANESTHESIA TYPE: Spinal Refer to Anesthesia Record ESTIMATED BLOOD LOSS: 0 TOURNIQUET TIME: 0 COMPLICATIONS: None Patient was transported to: PACU Patient's condition: stable Indications: 70-year-old female with multiple medical comorbidities and recent right knee injury now with proximal fibula as well as displaced trimalleolar ankle fracture. Attempted close reduction under regional anesthesia and splinting yesterday was unsuccessful with x-rays today showing mildly displaced medial lateral malleoli and significant lateral subluxation of the talus. Given concerns for soft tissues in diabetic neuropathic foot and ankle, decision was made to take the patient urgently back to the operating room for re-reduction under anesthesia and splinting with plans for definitive ORIF with loaner instruments arriving tomorrow for surgery later this week if the patient is medically appropriate. Please see complete medical record for more details. Findings: Moderate soft tissue swelling without any skin breakdown, fracture blisters, or wounds. Procedure Description: In the operating room, spinal anesthesia was induced. The patient was positioned supine on the operating room table. All bony prominences were well-padded. Preoperative antibiotics were omitted. the correct patient, procedure, and side of the procedure were all verified prior to beginning. The foot of the table was dropped so that the knees were bent 90?. The injured extremity had an obvious lateral ankle deformity. A moderate various medially directed force was applied to the ankle through the hindfoot with some internal rotation. Anterior posterior direction was maintained neutral. While holding reduction C-arm fluoroscopy confirmed appropriate and restored ankle mortise alignment. The forefoot replaced on my knee to maintained neutral dorsiflexion while the foot ankle and leg were properly wrapped in Sof-Rol taking care to pad bony prominences. A plaster short leg splint was applied and then care was taken to ensure a three-point mold maintaining ankle reduction. Final x-rays showed excellent ankle joint alignment with mild displacement and shortening of the distal fibula although there was no longer any lateral talar subluxation. The patient awoke from anesthesia without complication and was transferred to the recovery room in a stable condition. Plan to reassess the patient clinically tomorrow. Should the patient be an appropriate surgical candidate for definitive ORIF at this institution, would consider surgery on , which is as soon as the equipment is available and my next operative day. Should the patient decompensate clinically, she may require a higher level of care at tertiary care facility. No plans for knee surgery at this time.
--- NOTE | 2021-10-05 14:33 | W.ANESPOSTOP ---
Postoperative Evaluation Date, Time and Location Date Performed: 10/05/21 Time Performed: 14:33 Patient Location: PACU Vital Signs Most Recent Imported Vital Signs: Most Recent Vital Signs Temp Pulse Resp BP Pulse Ox 36.1 C L 57 L 15 110/57 L 95 10/05/21 14:11 10/05/21 14:15 10/05/21 14:11 10/05/21 14:15 10/05/21 14:11 Pain Score Most Recent Pain Score: Most Recent Pain Score Pain Level [Right Ankle] 3 10/05/21 12:20 Pain Level [Right Ankle] 10 10/03/21 08:00 Pain Level 0 10/05/21 14:11 Assessment Mental Status: Awake (Alert & Oriented to Patient Baseline) Airway and Respiratory Function: Patent airway with normal (patient baseline) respiratory exam Cardiovascular Function: Hemodynamically Stable Hydration Status: Adequately Hydrated Nausea & Vomiting: No Nausea or Vomiting Pain: Pt. Denies Any Pain Peripheral Nerve Block: Regional nerve block not resolved at time of post operative discharge
--- NOTE | 2021-10-05 15:10 | NUR.NOTE ---
Addendum entered by Filomena Mazariegos LPN 10/05/21 15:33: Lungs sounds diminished, heart regular, bowel sounds active, A&Ox3, Flynn patent and draining clear urine, IV access has no redness or swelling. no edema in the left foot, slight swelling of the right toes. Original Note: Nursing Note: patient came up from OR at about 14:43. Before I left I assessed patients CSMTs of the Right LE where she had a closed reduction performed with a spinal. MOGUL OPERATOR <2 seconds, warm to the touch, patient able wiggle toes, states her pain is 3/10 and is bearable at this time. VS stable at this time. from mid-calf to toes is covered with cast. Change of shift report given to RN. Went over NICK SETTER pump, continuous SPO2/CO2 monitoring with RN before leaving.
--- NOTE | 2021-10-05 15:53 | PHA.REVIEW ---
Pharmacy Admission Review - Admission Clinical Review (Last Reviewed 10/04/21 @ 20:04 by Hugo Alvarez MD) DVT prophylaxis (Acute) Closed bimalleolar fracture of right ankle (Acute) Medial meniscus tear (Acute) Discharge planning issues (Acute) oxycodone Allergy (Severe, Verified 09/26/21 09:03) Psychosis venom-honey bee Allergy (Severe, Verified 09/26/21 09:03) ANAPHYLAXIS adhesive Allergy (Verified 09/26/21 09:03) BLISTERS Resuscitation Status DNR/DNI Height 5 ft 10 in Weight 123.5 kg - Renal Dosing Renal Dosing: BUN 61 mg/dL (7-18) H 10/05/21 06:25 Creatinine 2.4 mg/dL (0.55-1.02) H 10/05/21 06:25 Medications needing adjustments: Reviewed List of meds needing interventions: eCrCl 32 ml/min using adjusted bw; given bmi and renal function, best lmwh dosing is unclear/data lacking... per discussion with provider we will stick with 40mg daily and reassess in 1-2 days - Anticoagulation Anticoagulation: Hgb 10.5 g/dL (11.2-15.7) L 10/03/21 08:00 Hct 38.5 % (36.0-46.0) 10/03/21 08:00 Plt Count 530 10^3/uL (130-400) H 10/03/21 08:00 Creatinine 2.4 mg/dL (0.55-1.02) H 10/05/21 06:25 DVT Prophylaxis: Reviewed Medications: Enoxaparin - Opiate Usage Evaluate Pain Scale/Pains Meds: Reviewed Scheduled Bowel Reg ordered if on Opiates?: No (prn, will fu AM meeting) - Relevant Labs Sodium 137 mmol/L (136-145) 10/05/21 06:25 Potassium 3.6 mmol/L (3.5-5.1) 10/05/21 06:25 Chloride 101 mmol/L (98-107) 10/05/21 06:25 Magnesium 2.0 mg/dL (1.8-2.4) 10/05/21 06:25 Electrolytes, C-Reactive P, ESR: Reviewed - DM Control DM Control: Glucose 97 mg/dL (74-106) 10/05/21 06:25 Finger Stick Blood Glucose 136 Finger Stick Blood Glucose 136 Finger Stick Blood Glucose 136 Finger Stick Blood Glucose 95 Finger Stick Blood Glucose 95 Insulin Dosing: Reviewed (glargine 35u BID, aspart SS with meals) - Heart Failure/MA Heart Failure/MA: Troponin I < 50 ng/L (<or=60) 10/03/21 08:00 EF%, MARTIR's, B-Blockers, Diuretics: Reviewed - BP Control BP Control: Blood Pressure 97/57 Blood Pressure 115/53 Blood Pressure 110/57 Blood Pressure 95/39 Blood Pressure 88/44 Blood Pressure 94/40 Blood Pressure 101/58 Blood Pressure 115/62 If elevated: Reviewed - Qtc Review If Elevated: N/A List meds needing interventions: QTc 427 on admission - IV to PO Switch IV Medications: Reviewed - Home Meds Home Med List reviewed: Reviewed Relevent Home Meds Not ordered & why?: all ordered - Current meds Current Medication Order Review: Intervened (adj isosorbide to be given 7 hours apart @ 0800 and 1500; morphine WOODWORKING MACHINE FEEDER started today, will monitor WOODWORKING MACHINE FEEDER usage and adjust dosing accordingly with nursing/provider)
--- NOTE | 2021-10-05 16:28 | CHAPLAIN ---
Megan and I know each other from previous admissions. She as hear most recently last week because of knee surgery. She fell at home while using her walked and fractured her ankle. This morning she said she was still having some pain, and thought she'd have to wait until tomorrow for surgery but it was moved up to this afternoon. She was very happy about this. Megan recently moved how of the home she shared with her daughter, because it was toxic Megan said, and she moved in with a friend who has told her she can stay as long as she wants. He was home when Megan and fell and Megan's dog alerted him to the fact that Megan needed help. She was transported to ambulance to [facility]. Much of the staff is familiar with Megan because of previous visits.
--- NOTE | 2021-10-05 16:41 | CMPROGNOTE_ITS ---
- If Service Date Differs Date of service: 10/05/21 Time of Service: 16:41 Care Management Progress Note S/O: Bibi was lying in bed when CM met with her. She reported that she has been in a lot of pain, and is anticipating surgery today, which is earlier than expected. She reported that she is happy to get it over with. Per report, she will return to the OR on , if equipment and OR are available. CM discussed her discharge plan, and she stated that she is willing to go to [facility] or the [facility] post surgically, once she is medically cleared. CM sent referrals to both facilities for review. CM will continue to follow. A: Ann-Marie is a 70 year old female admitted to [facility] on 10/03/21 for R Ankle fx. P: Anticipate Bibi will go to SNF post surgically, once she is medically cleared. CM sent referrals to [facility] and the [facility] for review. She will transport via w/c van vs EMS, depending on mobility at time of discharge. She will follow up with her PCP and discharge plan of care. CM will continue to follow.
--- NOTE | 2021-10-05 17:19 | PGE_ITS ---
Date of Service Date of service: 10/05/21 Time of Service: 14:30 Assessment and Plan Assessment and plan (1) Closed avulsion fracture of condyle of right femur: Status: Acute (2) Closed trimalleolar fracture of right ankle: Status: Acute Assessment and plan: 70-year-old female with displaced right trimalleolar ankle fracture and proximal fibula fracture after a low-energy fall at home; prior ipsilateral right knee injury with MCL proximal avulsion type fracture and lateral meniscus tear. Status post closed reduction with manipulation and splinting under spinal anesthesia today, Monday10/05/21 after unsuccessful closed reduction yesterday. Strict elevation, multimodal pain control, mechanical and chemo DVT prophylaxis while inpatient. Plan for definitive fixation with ORIF medial and lateral malleoli and supplemental syndesmotic fixation on , 10/07/2021 when equipment and operating room is available. Hold Lovenox 24 hours prior to procedure to allow potential spinal anesthetic again. No plans for ipsilateral knee additional surgery given significant medical comorbidities high risk for surgery. Will review with nurse two needle machine operator and primary medical teams. Qualifiers: Encounter type: initial encounter Qualified Code(s): S82.851A - Displaced trimalleolar fracture of right lower leg, initial encounter for closed fracture (3) Tear of lateral meniscus of right knee: Status: Acute Qualifiers: Encounter type: initial encounter Meniscus tear of knee type: complex Tear current or old: current Qualified Code(s): S83.271A - Complex tear of lateral meniscus, current injury, right knee, initial encounter (4) Fracture of proximal end of right fibula: Status: Acute Qualifiers: Encounter type: initial encounter Fracture morphology: other fracture Fracture type: closed Qualified Code(s): S82.831A - Other fracture of upper and lower end of right fibula, initial encounter for closed fracture Subjective Subjective Patient reports: no new complaints Exam Narrative Exam Narrative: Spinal anesthetic still in place. Resting comfortably without significant pain or distress about right ankle. Splint clean dry intact. Demonstrates active motor distally toes. No skin breakdown prior to splint application. Objective Last Vital Signs Temp 98.1 F 10/05/21 16:14 Pulse 59 L 10/05/21 16:14 Resp 12 10/05/21 16:14 BP 97/58 L 10/05/21 16:14 Pulse Ox 95 10/05/21 16:14 Laboratory Results - last 24 hr 10/05/21 06:25 Sodium 137 Potassium 3.6 Chloride 101 Carbon Dioxide 30.5 Anion Gap 5.5 BUN 61 H Creatinine 2.4 H Estimated GFR/1.73 m2 20.08 Glucose 97 Calcium 8.7 Magnesium 2.0
[2021-10-05] MEDS: Insulin Aspart 300 UNITS/3 ML PEN SC (17:37)
[2021-10-06] VITALS (14 sets, daily range): BP systolic 94–101; BP diastolic 56–63; PULSE 60–65; RESP 12–20; TEMP 36.2–37; O2SAT 91–95
[2021-10-06] MEDS: ACETAMINOPHEN 1,000 MG/100 ML BTL 400 MG IVPB ×4 (04:50→21:13)
[2021-10-06 06:42] LABS: Abs Immature Grans 0.13 10^3/uL (0.0-0.06); Absolute Basophil Count 0.09 10^3/uL (0.0-0.2); Absolute Lymphocyte Count 1.58 10^3/uL (1.2-3.4); Absolute Monocyte Count 1.36 10^3/uL (0.1-0.8); Absolute Neutrophil Count 8.96 10^3/uL (1.2-6.7); Basophils % 0.7; Eosinophils % 4.9; Lymphocytes % 12.4; MCH 22.4 pg (27.0-33.0); MCHC 27.4 % (32.0-36.0); MCV 81.9 fL (80-95); MPV 10.2 fL (8.0-11.0); Monocytes % 10.7; Neutrophils % 70.3; Nucleated RBC 0 %; Platelet Count 447 10^3/uL (130-400); RBC 3.75 10^6/uL (3.93-5.22); RDW 17.4 % (11.7-14.6); RDW-SD 51.8 fL; WBC 12.75 10^3/uL (4.4-10.8)
[2021-10-06 06:49] LABS: Absolute Eosinophil Count 0.62 10^3/uL (0.0-0.7)
[2021-10-06 06:51] LABS: HCT 30.7 % (36.0-46.0); HGB 8.4 g/dL (11.2-15.7)
[2021-10-06 07:00] LABS: Diff Comment RBC Morph Reviewed; Hypochromasia 2+
[2021-10-06 07:13] LABS: Anion Gap 7.5 mmol/L (3-11); BUN 62 mg/dL (7-18); CO2 33.5 mmol/L (21.0-32.0); CREATININE 2.4 mg/dL (0.55-1.02); Calcium 8.8 mg/dL (8.5-10.1); Chloride 98 mmol/L (98-107); Estimated GFR 20.08 (mL/min/1.73m2); Glucose 104 mg/dL (74-106); Potassium 3.2 mmol/L (3.5-5.1); Sodium 139 mmol/L (136-145)
[2021-10-06] MEDS: Atorvastatin 40 MG TAB PO (07:58)
[2021-10-06] MEDS: levETIRAcetam 500 MG TAB PO ×2 (07:59→20:17)
[2021-10-06] MEDS: Isosorbide Mononitrate 10 MG TAB PO ×2 (07:59→16:30)
[2021-10-06] MEDS: Metoprolol CR 100 MG TABCR PO (07:59)
[2021-10-06] MEDS: Aspirin E.C. 81 MG TABEC PO (07:59)
[2021-10-06] MEDS: Omeprazole 20 MG CAPCR 40 MG PO ×2 (07:59→20:16)
[2021-10-06] MEDS: Creon, Lipase 6,000 CAPCR 1 CAP PO ×3 (07:59→20:17)
[2021-10-06] MEDS: Allopurinol 100 MG TAB PO (08:00)
[2021-10-06] MEDS: Gabapentin 100 MG CAP PO ×3 (08:00→20:16)
[2021-10-06] MEDS: DULoxetine 30 MG CAP 60 MG PO (08:00)
[2021-10-06] MEDS: Calcium 600mg/Vit D 200U TAB 1 TAB PO ×2 (08:00→20:17)
[2021-10-06] MEDS: Torsemide 100 MG TAB PO (08:01)
[2021-10-06] MEDS: Insulin Glargine 300 UNITS/3 ML PEN 35 UNITS SC ×2 (08:02→20:17)
[2021-10-06] MEDS: Umeclidinium 7 CAP INHALER 1 CAP IH (08:04)
[2021-10-06] MEDS: Nystatin POWDER 60 GM JAR TP ×3 (08:05→20:18)
[2021-10-06] MEDS: Ergocalciferol 50000 UNITS CAP PO (08:12)
[2021-10-06] MEDS: Potassium Chloride 20 MEQ TABCR 40 MEQ PO ×2 (08:13→16:30)
--- NOTE | 2021-10-06 09:21 | WOUNDCARE ---
patient has open area on coccyx, split, patient turned and pillow used to take pressure off area.
[2021-10-06] MEDS: Magnesium Chloride 64 MG TABCR PO ×2 (10:35→21:13)
[2021-10-06] MEDS: Lactated Ringers 500 ML IV (11:17)
[2021-10-06] MEDS: Enoxaparin 40 MG/0.4 ML SYR SC (11:18)
--- NOTE | 2021-10-06 11:19 | W.PM.PROGNOT ---
Date of Service Date of service: 10/06/21 Time of Service: 11:00 Assessment and Plan Assessment and plan (1) Hypokalemia: Start date: 10/06/21 Start time: 11:40 Status: Acute Assessment and plan: 3.2 replete with oral and monitor. (2) Closed bimalleolar fracture of right ankle: Start date: 10/06/21 Start time: 11:32 Status: Acute Assessment and plan: Reduction done yesterday for pain management. Pain improved. CHIEF RADIOLOGIC TECHNOLOGIST as well with good pain control Patient to OR tomorrow, npo after MN, LR @ 50 after MN Qualifiers: Encounter type: initial encounter Qualified Code(s): S82.841A - Displaced bimalleolar fracture of right lower leg, initial encounter for closed fracture (3) Medial meniscus tear: Start date: 10/06/21 Start time: 11:33 Status: Acute Assessment and plan: From previous fall, with occult fx to knee. no surgery required, however d/t above on bed rest, Qualifiers: Tear current or old: current Encounter type: subsequent encounter Meniscus tear of knee type: unspecified type Laterality: right Qualified Code(s): S83.241D - Other tear of medial meniscus, current injury, right knee, subsequent encounter (4) Essential hypertension: Start date: 10/06/21 Start time: 11:33 Status: Chronic Assessment and plan: continue home medications (5) Diastolic CHF: Start date: 10/06/21 Start time: 11:34 Assessment and plan: as above daily wt, diuretics, extra diuretics as needed, at this time patient appears dry, will get rid of fluid restriction and add 500 cc bolus echo revealed Mild concentric left ventricular hypertrophy. Estimated ejection fraction is 60%. Wall motion is normal Normal right ventricular size and systolic function Both atria are normal in size Mildly sclerotic trileaflet aortic valve without stenosis or regurgitation Mild mitral annular calcification, trace mitral regurgitation Normal tricuspid valve with mild regurgitation. Estimated right ventricular systolic pressure is 37 mmHg Qualifiers: Heart failure chronicity: chronic Qualified Code(s): I50.32 - Chronic diastolic (congestive) heart failure (6) CAD (coronary artery disease), [place] coronary artery: Start date: 10/06/21 Start time: 11:34 Status: Chronic Assessment and plan: continue home medication, monitor daily wts and give doses of metalzaone as needed as patient easily goes into diasotlic HF Qualifiers: [place] vs. transplanted heart: [place] heart Associated angina: without angina Qualified Code(s): I25.10 - Atherosclerotic heart disease of [place] coronary artery without angina pectoris (7) Restless leg syndrome: Start date: 10/06/21 Start time: 11:34 Assessment and plan: Continue reopiriole (8) Seizure: Start date: 10/06/21 Start time: 11:35 Assessment and plan: continue keppra (9) Pulmonary hypertension: Start date: 10/06/21 Start time: 11:35 Assessment and plan: continue oxygen, diuretics, daily wts and monitoring fluid status (10) Palliative care patient: Start date: 10/06/21 Start time: 11:36 Assessment and plan: will follow she is seen by Dr. sinclair as ouptatient (11) Diabetes mellitus: Start date: 10/06/21 Start time: 11:36 Status: Chronic Assessment and plan: moniter and treat accordingly Qualifiers: Diabetes mellitus type: type 2 Diabetes mellitus local intermodal truck driver insulin use: with local intermodal truck driver use Diabetes mellitus complication status: without complication Qualified Code(s): E11.9 - Type 2 diabetes mellitus without complications; Z79.4 - residential (current) use of insulin (12) Renal insufficiency: Start date: 10/06/21 Start time: 11:36 Status: Chronic Assessment and plan: At baseline conitnue to monitor (13) DVT prophylaxis: Start date: 10/06/21 Status: Acute Assessment and plan: enxoparain, (14) Discharge planning issues: Start date: 10/06/21 Start time: 11:41 Status: Acute Assessment and plan: Agrees to go to [facility] will need for PT after surgery discussed with Dr. esquivel Subjective Subjective Patient reports: still having pain Interval history since last seen: pain is feeling better. On CHIEF RADIOLOGIC TECHNOLOGIST for pain. She does appear dry. Will d/c fluid restriction and give 500 fluid bolus. She is to have surgery tomorrow with Dr. Edouard. Hold enoxararaprin and dosing after todays dose. NPO after mn with LR @ 50. Exam Const General: cooperative, comfortable and no acute distress Nutritional Appearance: obese Orientation: alert, awake and oriented x3 Other: Pain controlled at this time. HENMT Mouth: mucous membranes dry Eyes Eyelids: eyelids normal Pupils: PERRL EOM: EOM intact bilaterally Neck Neck: normal visual inspection and no JVD Lymphatic: no lymphadenopathy noted Resp Effort & Inspection: normal respiratory effort Auscultation: clear to auscultation bilaterally Cardio Jugular venous pressure: no JVD Rhythm: regular rhythm Heart Sounds: S1 normal GI Auscultation: normal bowel sounds Skin General skin exam: no rashes or lesions noted Neuro General: patient alert, patient awake and patient oriented x3 Cognition: normal cognition Speech: speech normal Gait: normal gait Extrem General: other (RLE wrapped in celeste wraps cap refill normal CMST +) Objective Last Vital Signs Temp 37 C 10/06/21 07:11 Pulse 62 10/06/21 10:52 Resp 17 10/06/21 10:52 BP 94/56 L 10/06/21 07:11 Pulse Ox 93 10/06/21 10:52 Laboratory Results - last 24 hr 10/06/21 10/06/21 06:10 06:10 WBC 12.75 H RBC 3.75 L Hgb 8.4 L D Hct 30.7 L D MCV 81.9 MCH 22.4 L MCHC 27.4 L RDW 17.4 H Plt Count 447 H MPV 10.2 Immature Gran % 1.0 Neutrophils % 70.3 Lymphocytes % 12.4 Monocytes % 10.7 Eosinophils % 4.9 Basophils % 0.7 Nucleated RBC % 0 Absolute Neutrophils 8.96 H Absolute Lymphocytes 1.58 Absolute Monocytes 1.36 H Absolute Eosinophils 0.62 Absolute Basophils 0.09 RBC Morphology See Below Hypochromasia 2+ Sodium 139 Potassium 3.2 L Chloride 98 Carbon Dioxide 33.5 H Anion Gap 7.5 BUN 62 H Creatinine 2.4 H Estimated GFR/1.73 m2 20.08 Glucose 104 Calcium 8.8
--- NOTE | 2021-10-06 12:01 | CMPROGNOTE_ITS ---
- If Service Date Differs Date of service: 10/06/21 Time of Service: 12:01 Care Management Progress Note S/O: Bibi was sitting up in bed when CM met with her. She reported that her pain is well controlled today, except when she has to move. Per report, she will return to the OR tomorrow. She has received a bed offer from [facility] and the [facility], although the [facility] is currently closed. She stated that she is willing to go to [facility], as the [facility] remains closed. CM will continue to follow. A: Ann-Marie is a 70 year old female admitted to [facility] on 10/03/21 for R Ankle fx. P: Anticipate Bibi will go to SNF post surgically, once she is medically cleared. CM sent referrals to [facility] and the [facility] for review. She will transport via w/c van vs EMS, depending on mobility at time of discharge. She will follow up with her PCP and discharge plan of care. CM will continue to follow.
--- NOTE | 2021-10-06 15:18 | CHAPLAIN ---
Ann-Marie was happy to tell me that she's finally having surgery on her fractured ankle tomorrow at noon. Yesterday the ankle was set and tomorrow will be the surgery. She is glad to be getting the surgery done. Ann-Marie said her pain level is good, and the IV extra strength tylenol is working well and she can give herself a bolus if needed. She thinks she'll be transferred to a rehab sometime next week. I brought Ann-Marie a bag of balls of yarn today. She enjoys crocheting Breadcrumbtracking squares.
[2021-10-06] MEDS: Insulin Aspart 300 UNITS/3 ML PEN SC (17:09)
[2021-10-07] VITALS (11 sets, daily range): BP systolic 102–152; BP diastolic 45–75; PULSE 56–72; RESP 14–18; TEMP 35.2–36.8; O2SAT 93–100; BMI 38.7
[2021-10-07] MEDS: ACETAMINOPHEN 1,000 MG/100 ML BTL 400 MG IVPB ×2 (03:38→11:24)
[2021-10-07] MEDS: Lactated Ringers 1,000 ML 50 ML IV ×2 (04:19→20:42)
[2021-10-07 04:24] LABS: Vitamin D 25 Total 108.2 ng/mL (30-100)
[2021-10-07 07:01] LABS: Abs Immature Grans 0.14 10^3/uL (0.0-0.06); Absolute Basophil Count 0.09 10^3/uL (0.0-0.2); Absolute Eosinophil Count 0.66 10^3/uL (0.0-0.7); Absolute Lymphocyte Count 1.59 10^3/uL (1.2-3.4); Absolute Monocyte Count 1.16 10^3/uL (0.1-0.8); Absolute Neutrophil Count 9.01 10^3/uL (1.2-6.7); Basophils % 0.7; Eosinophils % 5.2; HCT 31.1 % (36.0-46.0); HGB 8.8 g/dL (11.2-15.7); Immature Grans % 1.1; Lymphocytes % 12.6; MCHC 28.3 % (32.0-36.0); MCV 81.2 fL (80-95); MPV 10.1 fL (8.0-11.0); Monocytes % 9.2; Neutrophils % 71.2; Nucleated RBC 0 %; Platelet Count 480 10^3/uL (130-400); RBC 3.83 10^6/uL (3.93-5.22); RDW 17.5 % (11.7-14.6); WBC 12.65 10^3/uL (4.4-10.8)
[2021-10-07 07:31] LABS: Anion Gap 7.3 mmol/L (3-11); BUN 68 mg/dL (7-18); CO2 32.7 mmol/L (21.0-32.0); CREATININE 2.4 mg/dL (0.55-1.02); Calcium 9.1 mg/dL (8.5-10.1); Chloride 101 mmol/L (98-107); Estimated GFR 20.08 (mL/min/1.73m2); Glucose 107 mg/dL (74-106); Potassium 3.4 mmol/L (3.5-5.1); Sodium 141 mmol/L (136-145)
[2021-10-07] MEDS: Umeclidinium 7 CAP INHALER 1 CAP IH (08:12)
--- NOTE | 2021-10-07 08:25 | W.ANESPRE ---
General Info Date of Service Date Performed: 10/07/21 Height: 5 ft 10 in Weight: 122.6 kg Body Mass Index (BMI): 38.7 Surgical Procedure: Operation Date: 10/05/21 14:25 Proposed Procedures Side Surgeon p Closed Reduction Ankle w/splinting Right Mesfin Edouard MD Actual Procedures Side Surgeon p Closed Reduction Ankle w/splinting Right Mesfin Edouard MD Pre-Op Diagnosis Post-Op Diagnosis Bimalellolar FX of Right Ankle Bimalellolar FX of Right Ankle Operation Date: 10/07/21 12:25 Proposed Procedures Side Surgeon p Ankle ORIF Right Mesfin Edouard MD Meds Allergies and Home Medications Allergies Allergy/AdvReac Type Severity Reaction Status Date / Time oxycodone Allergy Severe Psychosis Verified 09/26/21 09:03 venom-honey bee Allergy Severe ANAPHYLAXIS Verified 09/26/21 09:03 adhesive Allergy BLISTERS Verified 09/26/21 09:03 Home Medication Medication Instructions Recorded lancets 33 gauge #100 each 12/18/18 polyethylene glycol 3350 [Miralax] 1 g PO PRN PRN 01/15/19 lancets 25 gauge #100 each 01/29/19 B-complex with vitamin C 1 tab PO DAILY 09/19/19 calcium [id number]-[id number] vitaliy 2 cap PO DAILY 03/11/20 aspirin 81 mg PO DAILY #0 tab 06/01/20 albuterol sulfate 2.5 mg INHALATION Q2H PRN PRN #180 09/10/20 ml [id number]-xlnjorbz-josoxnp 1 cap PO TID #270 cap 10/01/20 6,000-19,000-30,000 unit capsule,delayed rel magnesium chloride 71.5 mg 71.5 mg PO BID #180 tab 10/19/20 (magnesium chloride) tablet,delayed release meclizine 12.5 mg tablet 12.5 mg PO TID PRN #60 tab 12/07/20 pen needle, diabetic 31 gauge x #450 each 12/10/2009/14 budesonide-formoterol HFA 160 2 puff INHALATION BID 01/07/21 mcg-4.5 mcg/actuation aerosol inhaler insulin aspart U-100 100 unit/mL 15 unit SC TID #30 ml 01/07/21 (3 mL) subcutaneous pen insulin glargine 100 unit/mL (3 35 unit SC BID #90 ml 01/07/21 mL) subcutaneous pen sitagliptin 25 mg tablet 25 mg PO DAILY #90 tab 01/07/21 umeclidinium 62.5 mcg/actuation 1 inh INHALATION DAILY #30 ea 01/07/21 blister powder for inhalation epinephrine 0.3 mg/0.3 mL 0.3 mg IM ONCE #2 ea 02/04/21 injection, auto-injector metoprolol succinate 100 mg 100 mg PO DAILY #90 tab 02/18/21 tablet,extended release 24 hr omeprazole 40 mg capsule,delayed 40 mg PO BID #180 cap 02/18/21 release levetiracetam 500 mg tablet 500 mg PO BID #180 tab 02/22/21 torsemide 100 mg tablet 100 mg PO DAILY #90 tab 03/19/21 blood sugar diagnostic #300 each 04/08/21 ergocalciferol (vitamin D2) 1,250 50,000 unit PO M-W-F #36 tab-cap 04/08/21 mcg (50,000 unit) capsule potassium chloride 20 mEq 40 meq PO BID #180 tab 04/21/21 tablet,extended release allopurinol 100 mg tablet 100 mg PO DAILY #90 tab-cap 05/27/21 metolazone 5 mg tablet 5 mg PO .4 times week PRN tab 05/28/21 gabapentin 100 mg capsule 100 mg PO TID #270 cap 06/07/21 triamcinolone acetonide 0.1 % 1 applic TOPICAL BID #80 g 07/20/21 topical cream atorvastatin 40 mg tablet 40 mg PO DAILY #90 tab-cap 08/03/21 duloxetine 60 mg capsule,delayed 60 mg PO DAILY #90 tab-cap 08/03/21 release isosorbide mononitrate 10 mg tablet 10 mg PO BID #180 tab 08/03/21 ropinirole 2 mg tablet 2 mg PO QPM PRN #90 tab 08/03/21 mupirocin 2 % topical ointment 1 applic TOPICAL BID #22 g 08/24/21 acetaminophen [Tylenol Extra 500 mg PO TID #0 tab 09/30/21 Strength] hydrocodone-acetaminophen 1 tab PO Q6H PRN #12 tab 09/30/21 Current Visit Medications: Current Medications Generic Name Dose Route Start Last Admin Trade Name Freq PRN Reason Stop Dose Admin Albuterol Sulfate 2.5 mg 10/03/21 09:40 Albuterol 2.5 Mg/3 Ml Inh Soln Vial UPD Q2H PRN PRN Allopurinol 100 mg 10/03/21 08:30 10/06/21 08:00 Allopurinol 100 Mg Tab PO 100 mg DAILY URBANO Administration Lipase/Protease/Amylase 1 cap 10/03/21 08:30 10/06/21 20:17 Creon, Lipase 6,000 Capcr PO 1 cap TID URBANO Administration Aspirin 81 mg 10/03/21 08:30 10/06/21 07:59 Aspirin E.C. 81 Mg Tabec PO 81 mg DAILY U[facility]ANO Administration Atorvastatin Calcium 40 mg 10/03/21 08:30 10/06/21 07:58 Atorvastatin 40 Mg Tab PO 40 mg DAILY U[facility]ANO Administration Calcium/Vitamin D 1 tab 10/05/21 08:30 10/06/21 20:17 Calcium 600mg/Vit D 200u Tab PO 1 tab BID URBANO Administration Device 1 each 10/03/21 10:00 Inhaler, Assist Device MC DIRECTED URBANO Dextrose/Water 0 gm 10/03/21 09:49 Dextrose 50%-Water 25 Gm/50 Ml Syr IVP DIRECTED PRN Dimethicone/Zinc Oxide 0 gm 10/03/21 09:40 Beryl Protect Cream 142 Gm Tube TP PRN PRN Docusate Sodium 100 mg 10/03/21 09:40 Docusate Sodium 100 Mg Cap PO TID PRN PRN Duloxetine HCl 60 mg 10/03/21 08:30 10/06/21 08:00 Duloxetine 30 Mg Cap PO 60 mg DAILY U[facility]ANO Administration Ergocalciferol 50,000 units 10/04/21 08:30 10/06/21 08:12 Ergocalciferol 16709 Units Cap PO 50,000 units [id number] [facility]O Administration Gabapentin 100 mg 10/03/21 08:30 10/06/21 20:16 Gabapentin 100 Mg Cap PO 100 mg TID U[facility]ANO Administration Acetaminophen 1,000 mg in 100 mls @ 400 mls/hr 10/05/21 10:00 10/07/21 03:38 Ofirmev IVPB 400 mls/hr Q6H [facility] Administration Morphine Sulfate 100 mg/ 100 mg in 100 mls @ 0 mls/hr 10/05/21 10:45 10/06/21 11:59 Sodium Chloride/ Device IV 0.5 mls/hr DIRECTED [facility] 0.5 mls/hr Titration Protocol Titrate Ringer's Solution 1,000 mls @ 50 mls/hr 10/07/21 00:01 10/07/21 04:19 IV 50 mls/hr INFUSION [facility] Administration Potassium Chloride 10 meq in 100 mls @ 100 mls/hr 10/07/21 07:45 IVPB 10/07/21 11:44 Q1H [facility] IV Miscellaneous Supplies 1 each 10/03/21 08:15 Iv Access IV DIRECTED [facility] Insulin Aspart 0 units 10/03/21 12:00 10/06/21 17:09 Insulin Aspart 300 Units/3 Ml Pen SC 3 units 0800,1200,1700 [facility] Administration Protocol Insulin Glargine 35 units 10/03/21 08:30 10/06/21 20:17 Insulin Glargine 300 Units/3 Ml Pen SC 35 unit BID [facility] Administration Isosorbide Mononitrate 10 mg 10/05/21 17:00 10/06/21 16:30 Isosorbide Mononitrate 10 Mg Tab PO 10 mg BID@0800,1500 [facility] Administration Ketorolac Tromethamine 15 mg 10/05/21 09:54 Ketorolac 15 Mg/Ml Vial IVP 10/10/21 09:53 Q6H PRN PRN Levetiracetam 500 mg 10/03/21 20:00 10/06/21 20:17 Levetiracetam 500 Mg Tab PO 500 mg BID [facility] Administration Magnesium Chloride 64 mg 10/03/21 22:00 10/06/21 21:13 Magnesium Chloride 64 Mg Tabcr PO 64 mg BID@1000,2200 [facility] Administration Magnesium Hydroxide 30 ml 10/03/21 09:40 Milk Of Magnesia 30 Ml Cup PO DAILY PRN PRN Metolazone 5 mg 10/05/21 11:00 10/05/21 10:56 Metolazone 2.5 Mg Tab PO 5 mg DAILY PRN PRN Administration chf Metoprolol Succinate 100 mg 10/03/21 08:30 10/06/21 07:59 Metoprolol Cr 100 Mg Tabcr PO 100 mg DAILY [facility] Administration Naloxone HCl 0.4 mg 10/03/21 23:34 Naloxone 0.4 Mg/Ml Vial IVP PRN PRN Naloxone HCl 0 mg 10/05/21 09:43 Naloxone 0.4 Mg/Ml Vial IVP PRN PRN Nystatin 0 gm 10/05/21 08:30 10/06/21 20:18 Nystatin Powder 60 Gm Jar TP 1 applic TID [facility]ANO Administration Omeprazole 40 mg 10/03/21 07:30 10/06/21 20:16 Omeprazole 20 Mg Capcr PO 40 mg BID@0730,2000 [facility] Administration Pt's Own Calcium/ 2 each 10/04/21 08:30 10/06/21 08:06 Magnesium/Vit D PO Not Given DAILY [facility]ANO Polyethylene Glycol 17 gm 10/03/21 09:40 Polyethylene Glycol 3350 17 Gm Packet PO DAILY PRN PRN Constipation Ropinirole HCl 2 mg 10/03/21 09:46 10/04/21 20:45 Ropinirole 1 Mg Tab PO 2 mg HS PRN PRN Administration restless leg(s) Sodium Chloride 500 ml 10/05/21 14:24 Normal Saline Flush 10 Ml Syr IV PRN PRN Sodium Chloride 10 ml 10/05/21 14:25 Normal Saline Flush 10 Ml Syr IVP PRN PRN Torsemide 100 mg 10/03/21 08:30 10/06/21 08:01 Torsemide 100 Mg Tab PO 100 mg DAILY [facility]O Administration Umeclidinium [place] 1 cap 10/03/21 08:30 10/06/21 08:04 Umeclidinium 7 Cap Inhaler IH 1 cap DAILY [facility]ANO Administration PFSH Active Problems Active Problems: Problem Status Onset Code Hypokalemia E87.6 Closed bimalleolar fracture of right ankle S82.841A Fracture of proximal end of right fibula S82.831A Closed trimalleolar fracture of right ankle 10/03/21 S82.851A Renal insufficiency N28.9 Essential hypertension 06/13/13 I10 Diabetes mellitus 09/20/10 E11.9 DVT prophylaxis Z29.9 CAD (coronary artery disease), [place] coronary artery I25.10 Closed avulsion fracture of condyle of right femur S72.411A Cyst of lateral meniscus of right knee M23.000 Tear of lateral meniscus of right knee S83.281A Medial meniscus tear S83.249A Wound abscess Discharge planning issues Z02.9 Medical History Medical History Abnormal mammography 08/10/06 Acute kidney injury superimposed on chronic kidney disease Lsazd-[id number]-mokgutz kidney injury Altered mental status Anemia Ankle pain (03/13/14) Annual physical exam (12/14/15) Atrial fibrillation Atrial flutter BMI 40.0-44.9, adult (12/02/14) Carpal tunnel syndrome Carpal tunnel syndrome (08/10/06) BILATERAL R S/P SURGERY Cervical disc disorder with myelopathy (08/21/08) S/P surgery x 2 Cervical spondylosis with myelopathy Chest pain Neg Stress test CHF (congestive heart failure) Chronic obstructive lung disease CKD (chronic kidney disease) stage 3, GFR 30-59 ml/min Cr about 2.5 CKD stage 4 due to type 2 diabetes mellitus Congestive heart failure Constipation Dehydration Diabetes mellitus 09/20/10 Positive Microalbumin Diastolic CHF DNR no code (do not resuscitate) DVT (deep venous thrombosis) Dysuria Essential hypertension Folate deficiency (02/15/16) Gout Gout (07/06/11) Gram-positive bacteremia Greater trochanteric bursitis of left hip Hammer toe Left/right HAP (hospital-acquired pneumonia) (01/15/19) HCAP (healthcare-associated pneumonia) Heart failure with preserved ejection fraction, borderline, class III Hepatomegaly 06/10/04 Hip joint inflamed (09/03/15) Hip pain, left Hip pain, right Hyperglycemia Hyperlipidemia (08/10/00) Hypertension Hypomagnesemia Hypoxia IDDM (insulin dependent diabetes mellitus) Left hip pain Low back pain (04/10/03) DISC HERNIATION L4. MULTILEVEL DJD/SPINAL STENOSIS BY MRI; S/P surgery Lump in neck Macrocytic anemia Menopausal syndrome 07/11/03 Multiple falls Muscle fatigue 03/04/13 Myoclonic epileptic seizures Numbness and tingling in left upper extremity Palliative care patient Pancreatic atrophy Posterior tibial tendon dysfunction 02/03/16 Postmenopausal bleeding neg. endometrial biopsy Postoperative wound dehiscence (12/23/15) Prerenal azotemia Primary osteoarthritis of left hip (09/17/15) Pulmonary hypertension Renal impairment (07/11/03) ADRENAL MASS. F/U W/ KINLAW positive microalbumin Restless leg syndrome Rotator cuff syndrome (08/01/09) Seizure Shingles Smoker (06/30/16) 01/17/17 1-2 cig/wk SOB (shortness of breath) Spinal stenosis of lumbar region (02/15/16) Spinal stenosis of lumbar region at multiple levels Tarsal tunnel syndrome 06/11/13 Tarsal tunnel syndrome (06/11/13) Trochanteric bursitis 03/18/13 Upper respiratory tract infection (08/03/15) UTI (urinary tract infection) Vaginal atrophy Vitamin D deficiency Vitamin D deficiency Weakness Surgical History Surgical History Arthrodesis right 2nd toe Cataract (01/07/14) FOLLOWED BY [employer] cervical repair (~10/2008) C6-C7 DISK; RECURRENT SURGERY Cholecystectomy (07/31/13) Endometrial Biopsy NEG H/O arthrodesis right second toe H/O Spinal surgery multiple spine surgeries; low back x 2; She had multilevel DJD and spinal stenosis; disc herniation. 2008-cervical repair; C6-C7 disc; recurrent surgery. History of bilateral tubal ligation 09/11/80 History of gynecologic surgery endometrial biopsy-neg History of hip surgery 11/10/15 left hip arthroplasty 12/04/15-placement of wound VAC to left hip History of orthopedic surgery 09/11/97 tarsal tunnel release Left eye surgery 12/31/17 Ligation of fallopian tube (~1980) Open Carpal Tunnel release Right wrist surgery 10/26/17 Rotator Cuff Repair (~1980) S/P CABG (coronary artery bypass graft) (01/03/19) 4 vessel CABG and [place] appendage excision, [place]. Nav Wang, [facility] [place] S/P carpal tunnel release S/P cholecystectomy 09/11/12 S/P rotator cuff repair 09/11/80 SPINE SURGERY Multiple spine surgeries, low back x 2. She had multilevel DJD and spinal stenosis, disc herniation Status post incision and drainage 12/04/15 left hip surgical wound dehiscence and infection tarsal tunnel release (~1997) Total replacement of hip [facility]; LEFT HIP Tobacco Smoking/Tobacco Use Status: Former Tobacco Use Tobacco: How many years used: 20 Alcohol Alcohol Intake: never Substance Use Substance use: Never Substance use type: does not use Vital Signs and Lab Results Vital Signs Most Recent Vital Signs in EMR: Most Recent Vital Signs Temp Pulse Resp BP Pulse Ox 36.8 C 65 16 108/69 95 10/07/21 07:31 10/07/21 07:31 10/07/21 07:31 10/07/21 07:31 10/07/21 07:31 Point of Care Results Point of Care Results: Finger Stick Blood Glucose 102 10/07/21 07:30 Lab Results Result Diagrams: 10/07/21 06:30 10/07/21 06:30 Blood Type / Crossmatch: No Data to Display Complete Blood Count: White Blood Count 12.65 10^3/uL (4.4-10.8) H 10/07/21 06:30 10/07/21 Red Blood Count 3.83 10^6/uL (3.93-5.22) L 10/07/21 06:30 10/07/21 Hemoglobin 8.8 g/dL (11.2-15.7) L 10/07/21 06:30 10/07/21 Hematocrit 31.1 % (36.0-46.0) L 10/07/21 06:30 10/07/21 Platelet Count 480 10^3/uL (130-400) H 10/07/21 06:30 10/07/21 Complete Metabolic Panel: Sodium Level 141 mmol/L (136-145) 10/07/21 06:30 10/07/21 Potassium Level 3.4 mmol/L (3.5-5.1) L 10/07/21 06:30 10/07/21 Chloride Level 101 mmol/L (98-107) 10/07/21 06:30 10/07/21 Carbon Dioxide Level 32.7 mmol/L (21.0-32.0) H 10/07/21 06:30 10/07/21 Blood Urea Nitrogen 68 mg/dL (7-18) H 10/07/21 06:30 10/07/21 Creatinine 2.4 mg/dL (0.55-1.02) H 10/07/21 06:30 10/07/21 Estimated GFR/1.73 m2 20.08 (mL/min/1.73m2) 10/07/21 06:30 10/07/21 Magnesium Level 2.0 mg/dL (1.8-2.4) 10/07/21 06:30 10/07/21 Calcium Level 9.1 mg/dL (8.5-10.1) 10/07/21 06:30 10/07/21 Albumin 3.5 g/dL (3.4-5.0) 10/03/21 08:00 10/03/21 Glucose Level 107 mg/dL (74-106) H 10/07/21 06:30 10/07/21 Liver Function Panel: Alanine Aminotransferase (ALT/SGPT) 51 U/L (14-59) 10/03/21 08:00 10/03/21 Aspartate Amino Transf (AST/SGOT) 21 U/L (15-37) 10/03/21 08:00 10/03/21 Coagulation Panel: No Data to Display Cardiac Panel: Troponin I < 50 ng/L (<or=60) 10/03/21 Arterial Blood Gas: No Data to Display Venous Blood Gas: No Data to Display Pancreas Panel: Lipase 48 U/L (73-393) 09/26/21 10:00 09/26/21 Thyroid Panel: No Data to Display Infectious Disease: Coronavirus (COVID-19)(PCR) Negative (Negative) 10/03/21 09:47 10/03/21 Coronavirus 2019 Source Nasal/Nares 10/03/21 09:47 10/03/21 Influenza Virus Type A (PCR) Negative (Negative) 10/03/21 09:47 10/03/21 Influenza Virus Type B (PCR) Negative (Negative) 10/03/21 09:47 10/03/21 Respiratory Syncytial Virus (PCR) Negative (Negative) 10/03/21 09:47 10/03/21 Blood Cultures: No Data to Display Toxicology Panel: No Data to Display Imaging and Studies Imaging and Studies Study information below may be from another EMR and interpreted by another provider. Please see original notes in EMR for more complete details. EKG Summary: 10/04/2021: Sinus bradycardia...P axis (-45,135), rate< 60 Stress Test Summary: 02/07/2018: 1. Myocardial perfusion imaging: Left ventricular size is normal. There is image artifact due to diaphragmatic attenuation, without diagnostic evidence for perfusion abnormality. 2. The calculated left ventricular ejection fraction after stress: 63%. LV global systolic function is normal. No left ventricular regional motion abnormality. Echocardiogram Summary: 10/04/2021: Conclusion Mild concentric left ventricular hypertrophy. Estimated ejection fraction is 60%. Wall motion is normal Normal right ventricular size and systolic function Both atria are normal in size Mildly sclerotic trileaflet aortic valve without stenosis or regurgitation Mild mitral annular calcification, trace mitral regurgitation Normal tricuspid valve with mild regurgitation. Estimated right ventricular systolic pressure is 37 mmHg Carotid Artery Summary:: 03/2013: IMPRESSION: 1. Atherosclerosis 2. No evidence of hemodynamically significant cervical carotid artery stenosis. Anesthesia Assessment and Plan Anesthesia History Personal History: No History of Anesthesia Complications Family History: No Family History of Anesthesia Complications Exercise Tolerance Exercise Tolerance: Metabolic Equivalents<4 Cardiac & Pulmonary Exam Cardiac Exam: Normal S1/S2 Heart Sounds Pulmonary Exam: Clear Bilateral Breath Sounds Implantable Cardiac Device Does patient have a Pacemaker or an ICD?: No Airway Exam Known Difficult Airway: No Mallampati Class: 1 Mouth Opening: Normal (> 3cm) Thyromental Distance: Greater than 3 cm Neck Range of Motion: Limited ROM Neck Circumference: Normal Teeth Condition: Removable Dentures/Plates Upper ASA Classification ASA Score: ASA 4 Emergency Case?: No NPO Status NPO Status: NPO Clears >2 hours, Solids >8 hours Anesthesia Plan Resuscitation Status: Full Code Anesthesia Technique: Spinal Anesthesia Airway Planned: Natural Airway Pain Management: Surgeon and patient request nerve block Monitors Used: Standard Monitors Preoperative Comments:: 70 yo f for ankle ORIF. Sig PMHx: CAD (s/p CABG 2019, isosorbide mononitrate), DM (last A1c 6.8, glargine), spinal stenosis, CKDIV, CHF (torsemide), HTN (metoprolol), epilepsy (levetiracetam). Previous Anes: closed reduction spinal (chloroprocaine 2 mL 3%, 2 attempts, 22 quincke) and regional (pop/sci and fem 20 mL 0.375% bup and 10 mL experal per site) Grade 1 mac 4, easy mask with opa. Plan: pop/sciatic with adductor canal block or femoral (anatomy dependent) for preop pain control, and spinal as primary. Pt is very scared of GA, but we did discuss that it may be required, she expresses understanding, but still want to try spinal as the primary option.
[2021-10-07] MEDS: Atorvastatin 40 MG TAB PO (08:29)
[2021-10-07] MEDS: Allopurinol 100 MG TAB PO (08:29)
[2021-10-07] MEDS: Creon, Lipase 6,000 CAPCR 1 CAP PO ×2 (08:29→20:24)
[2021-10-07] MEDS: levETIRAcetam 500 MG TAB PO ×2 (08:29→20:24)
[2021-10-07] MEDS: Isosorbide Mononitrate 10 MG TAB PO (08:29)
[2021-10-07] MEDS: DULoxetine 30 MG CAP 60 MG PO (08:30)
[2021-10-07] MEDS: Torsemide 100 MG TAB PO (08:30)
[2021-10-07] MEDS: Calcium 600mg/Vit D 200U TAB 1 TAB PO ×2 (08:30→20:24)
[2021-10-07] MEDS: Metoprolol CR 100 MG TABCR PO (08:30)
[2021-10-07] MEDS: Aspirin E.C. 81 MG TABEC PO (08:30)
[2021-10-07] MEDS: Omeprazole 20 MG CAPCR 40 MG PO ×2 (08:30→20:24)
[2021-10-07] MEDS: Gabapentin 100 MG CAP PO ×2 (08:30→20:24)
[2021-10-07] MEDS: POTASSIUM CHLORIDE 10 MEQ/100 ML BAG 100 MEQ IVPB ×3 (08:31→11:07)
--- NOTE | 2021-10-07 09:14 | W.PM.DS.N ---
Date of service: 10/07/21 Time of Service: 07:45 DS: Diagnosis Discharge Diagnosis (1) Hypokalemia: Start date: 10/07/21 Start time: 07:45 Status: Acute Asessment and Plan: 3.4 potassium level replete with IV potassium (2) Closed bimalleolar fracture of right ankle: Status: Acute (3) Medial meniscus tear: Status: Acute (4) Essential hypertension: Status: Chronic (5) Diastolic CHF: (6) CAD (coronary artery disease), [place] coronary artery: Status: Chronic (7) Restless leg syndrome: (8) Seizure: (9) Pulmonary hypertension: (10) Palliative care patient: (11) Diabetes mellitus: Status: Chronic (12) Renal insufficiency: Status: Chronic (13) DVT prophylaxis: Status: Acute (14) Discharge planning issues: Status: Acute Discharge Plan Disposition Condition: Improving Discharge Details Reason For Visit: Bimalellolar FX of Right Ankle Admit Date/Time: 10/03/21 09:41 Admit Provider: Elvira Mims Attending Provider: Elvira Mims Primary Care Provider: Laisha Mcmahon [place] Meds and New Rx's Prescriptions: No Action (DME) lancets 25 gauge misc See Dose Instructions .ROUTE .MEDSUPPLY Qty: 100 RF: 5 (DME) lancets [OneTouch Delica Lancets] 33 gauge misc See Dose Instructions .ROUTE DAILY Qty: 100 RF: 0 B-complex with vitamin C [Super B Complex-Vitamin C] Tablet 1 tab PO DAILY RF: 0 albuterol sulfate 2.5 mg /3 mL (0.083 %) solution for nebulization 2.5 mg INHALATION Q2H PRN PRN (Reason: shortness of breath or wheezing) Qty: 180 RF: 4 (DME) Blood Glucose Test Strip See Dose Instructions .ROUTE .MEDSUPPLY Qty: 300 RF: 5 ergocalciferol (vitamin D2) [Vitamin D2] 1,250 mcg (50,000 unit) capsule 50,000 unit PO Qty: 36 RF: 4 epinephrine [EpiPen 2-Erick] 0.3 mg/0.3 mL auto-injector 0.3 mg IM ONCE Qty: 2 RF: 10 omeprazole 40 mg capsule,delayed release(DR/EC) 40 mg PO BID Qty: 180 RF: 4 metoprolol succinate 100 mg tablet extended release 24 hr 100 mg PO DAILY Qty: 90 RF: 3 gabapentin 100 mg capsule 100 mg PO TID Qty: 270 RF: 0 metolazone 5 mg tablet 5 mg PO .4 times week PRN (Reason: chf) RF: 0 mupirocin 2 % ointment 1 applic topical BID Qty: 22 RF: 3 Creon 6,000-19,000 -30,000 unit capsule,delayed release(DR/EC) 1 cap PO TID Qty: 270 RF: 5 Slow-Mag 71.5 mg tablet,delayed release (DR/EC) 71.5 mg PO BID Qty: 180 RF: 4 meclizine 12.5 mg tablet 12.5 mg PO TID PRN (Reason: dizziness) Qty: 60 RF: 3 (DME) pen needle, diabetic [1st Tier Unifine Pentips] 31 gauge x 1/4 needle See Dose Instructions .ROUTE .MEDSUPPLY Qty: 450 RF: 5 Incruse Ellipta 62.5 mcg/actuation blister with device 1 inh inhalation DAILY Qty: 30 RF: 12 Januvia 25 mg tablet 25 mg PO DAILY Qty: 90 RF: 4 Basaglar KwikPen U-100 Insulin 100 unit/mL (3 mL) insulin pen 35 unit SC BID Qty: 90 RF: 4 insulin aspart U-100 [Novolog Flexpen U-100 Insulin] 100 unit/mL (3 mL) insulin pen 15 unit SC TID Qty: 30 RF: 5 budesonide-formoterol [Symbicort] 160-4.5 mcg/actuation HFA aerosol inhaler 2 puff inhalation BID RF: 0 levetiracetam [Keppra] 500 mg tablet 500 mg PO BID Qty: 180 RF: 5 torsemide 100 mg tablet 100 mg PO DAILY Qty: 90 RF: 6 potassium chloride [K-Tab] 20 mEq tablet extended release 40 meq PO BID Qty: 180 RF: 4 allopurinol 100 mg tablet 100 mg PO DAILY Qty: 90 RF: 12 triamcinolone acetonide 0.1 % cream 1 applic topical BID Qty: 80 RF: 0 isosorbide mononitrate 10 mg tablet 10 mg PO BID Qty: 180 RF: 5 atorvastatin 40 mg tablet 40 mg PO DAILY Qty: 90 RF: 6 duloxetine 60 mg capsule,delayed release(DR/EC) 60 mg PO DAILY Qty: 90 RF: 12 ropinirole 2 mg tablet 2 mg PO QPM PRN (Reason: restless leg(s)) Qty: 90 RF: 5 polyethylene glycol 3350 [Miralax] 17 gram Powder In Packet 1 g PO PRN PRNRF: 0 aspirin 81 mg Tablet,Delayed Release (Dr/Ec) 81 mg PO DAILY Qty: 0 RF: 0 hydrocodone-acetaminophen 10-325 mg Tablet 1 tab PO Q6H PRNQty: 12 RF: 0 acetaminophen [Tylenol Extra Strength] 500 mg Tablet 500 mg PO TID Qty: 0 RF: 0 calcium [id number] vitaliy 133 mg calcium -133 unit-67 mg Capsule 2 cap PO DAILY RF: 0 DS: Data Vitals/I&O Vitals and I&O: Vital Signs Temperature 36.8 C 10/07/21 07:31 Temperature Source Tympanic 10/07/21 07:31 Pulse 65 10/07/21 07:31 Pulse Rhythm Regular 10/07/21 05:06 Respiratory Rate 16 10/07/21 07:31 Respiratory Effort Non-Labored 10/07/21 05:06 Respiratory Depth Normal 10/07/21 05:06 Respiratory Pattern Normal 10/07/21 05:06 Blood Pressure 108/69 10/07/21 07:31 Blood Pressure Mean 75 10/04/21 11:35 Blood Pressure Position Left Lateral 10/04/21 11:35 Pulse Oximetry 95 10/07/21 07:31 Oxygen Delivery Method Nasal Cannula 10/07/21 07:31 Oxygen Flow Rate 2 10/07/21 07:31 Pain Level 8 10/07/21 07:31 Comment 10/05/21 23:00 Intake & Output 10/06/21 10/06/21 10/07/21 11:59 23:59 11:59 Intake Total 223.683 / 673.683 450 / 673.683 Output Total 950 / 3050 2100 / 3050 1000 / 1000 Balance -726.317 / -2376.317 -1650 / -2376.317 -1000 / -1000 Weight 122.6 kg 122.6 kg Intake: IV 223.683 / 423.683 200 / 423.683 Oral 250 / 250 Output: Urine 950 / 3050 2100 / 3050 1000 / 1000 Other: Urine Color Yellow Yellow Yellow Urine Appearance Clear Cloudy Cloudy Data Completed and Pending Labs on day of discharge: Labs from last 24 hours 10/07/21 10/07/21 10/07/21 06:30 06:30 06:30 WBC 12.65 H RBC 3.83 L Hgb 8.8 L Hct 31.1 L MCV 81.2 MCH 23.0 L MCHC 28.3 L RDW 17.5 H Plt Count 480 H MPV 10.1 Immature Gran % 1.1 Neutrophils % 71.2 Lymphocytes % 12.6 Monocytes % 9.2 Eosinophils % 5.2 Basophils % 0.7 Nucleated RBC % 0 Absolute Neutrophils 9.01 H Absolute Lymphocytes 1.59 Absolute Monocytes 1.16 H Absolute Eosinophils 0.66 Absolute Basophils 0.09 Sodium 141 Potassium 3.4 L Chloride 101 Carbon Dioxide 32.7 H Anion Gap 7.3 BUN 68 H Creatinine 2.4 H Estimated GFR/1.73 m2 20.08 Glucose 107 H Calcium 9.1 Magnesium 2.0 25-OH Vitamin D Total 10/05/21 06:25 WBC RBC Hgb Hct MCV MCH MCHC RDW Plt Count MPV Immature Gran % Neutrophils % Lymphocytes % Monocytes % Eosinophils % Basophils % Nucleated RBC % Absolute Neutrophils Absolute Lymphocytes Absolute Monocytes Absolute Eosinophils Absolute Basophils Sodium Potassium Chloride Carbon Dioxide Anion Gap BUN Creatinine Estimated GFR/1.73 m2 Glucose Calcium Magnesium 25-OH Vitamin D Total 108.2 H* PFSH All Active Problems (Updated 10/06/21 @ 11:40 by Tiana Grey NP) Hypokalemia (Acute) Closed bimalleolar fracture of right ankle (Acute) Fracture of proximal end of right fibula (Acute) Closed trimalleolar fracture of right ankle (Acute 10/03/21) Renal insufficiency (Chronic) Essential hypertension (Chronic 06/13/13) Diabetes mellitus (Chronic 09/20/10) DVT prophylaxis (Acute) CAD (coronary artery disease), [place] coronary artery (Chronic) Closed avulsion fracture of condyle of right femur (Acute) Cyst of lateral meniscus of right knee (Acute) Tear of lateral meniscus of right knee (Acute) Medial meniscus tear (Acute) Wound abscess (Acute) Discharge planning issues (Acute) Medical History Abnormal mammography 08/10/06 Acute kidney injury superimposed on chronic kidney disease [id number] kidney injury Altered mental status Anemia Ankle pain (03/13/14) Annual physical exam (12/14/15) Atrial fibrillation Atrial flutter BMI 40.0-44.9, adult (12/02/14) Carpal tunnel syndrome Carpal tunnel syndrome (08/10/06) BILATERAL R S/P SURGERY Cervical disc disorder with myelopathy (08/21/08) S/P surgery x 2 Cervical spondylosis with myelopathy Chest pain Neg Stress test CHF (congestive heart failure) Chronic obstructive lung disease CKD (chronic kidney disease) stage 3, GFR 30-59 ml/min Cr about 2.5 CKD stage 4 due to type 2 diabetes mellitus Congestive heart failure Constipation Dehydration Diabetes mellitus 09/20/10 Positive Microalbumin Diastolic CHF DNR no code (do not resuscitate) DVT (deep venous thrombosis) Dysuria Essential hypertension Folate deficiency (02/15/16) Gout Gout (07/06/11) Gram-positive bacteremia Greater trochanteric bursitis of left hip Hammer toe Left/right HAP (hospital-acquired pneumonia) (01/15/19) HCAP (healthcare-associated pneumonia) Heart failure with preserved ejection fraction, borderline, class III Hepatomegaly 06/10/04 Hip joint inflamed (09/03/15) Hip pain, left Hip pain, right Hyperglycemia Hyperlipidemia (08/10/00) Hypertension Hypomagnesemia Hypoxia IDDM (insulin dependent diabetes mellitus) Left hip pain Low back pain (04/10/03) DISC HERNIATION L4. MULTILEVEL DJD/SPINAL STENOSIS BY MRI; S/P surgery Lump in neck Macrocytic anemia Menopausal syndrome 07/11/03 Multiple falls Muscle fatigue 03/04/13 Myoclonic epileptic seizures Numbness and tingling in left upper extremity Palliative care patient Pancreatic atrophy Posterior tibial tendon dysfunction 02/03/16 Postmenopausal bleeding neg. endometrial biopsy Postoperative wound dehiscence (12/23/15) Prerenal azotemia Primary osteoarthritis of left hip (09/17/15) Pulmonary hypertension Renal impairment (07/11/03) ADRENAL MASS. F/U W/ [place] positive microalbumin Restless leg syndrome Rotator cuff syndrome (08/01/09) Seizure Shingles Smoker (06/30/16) 01/17/17 1-2 cig/wk SOB (shortness of breath) Spinal stenosis of lumbar region (02/15/16) Spinal stenosis of lumbar region at multiple levels Tarsal tunnel syndrome 06/11/13 Tarsal tunnel syndrome (06/11/13) Trochanteric bursitis 03/18/13 Upper respiratory tract infection (08/03/15) UTI (urinary tract infection) Vaginal atrophy Vitamin D deficiency Vitamin D deficiency Weakness Surgical History Arthrodesis right 2nd toe Cataract (01/07/14) FOLLOWED BY [employer] cervical repair (~10/2008) C6-C7 DISK; RECURRENT SURGERY Cholecystectomy (07/31/13) Endometrial Biopsy NEG H/O arthrodesis right second toe H/O Spinal surgery multiple spine surgeries; low back x 2; She had multilevel DJD and spinal stenosis; disc herniation. 2008-cervical repair; C6-C7 disc; recurrent surgery. History of bilateral tubal ligation 09/11/80 History of gynecologic surgery endometrial biopsy-neg History of hip surgery 11/10/15 left hip arthroplasty 12/04/15-placement of wound VAC to left hip History of orthopedic surgery 09/11/97 tarsal tunnel release Left eye surgery 12/31/17 Ligation of fallopian tube (~1980) Open Carpal Tunnel release Right wrist surgery 10/26/17 Rotator Cuff Repair (~1980) S/P CABG (coronary artery bypass graft) (01/03/19) 4 vessel CABG and LA appendage excision, Dr. Nav Wang, [facility], [place], [place] S/P carpal tunnel release S/P cholecystectomy 09/11/12 S/P rotator cuff repair 09/11/80 SPINE SURGERY Multiple spine surgeries, low back x 2. She had multilevel DJD and spinal stenosis, disc herniation Status post incision and drainage 12/04/15 left hip surgical wound dehiscence and infection tarsal tunnel release (~1997) Total replacement of hip [facility]; LEFT HIP Family History Mother Diabetes Essential hypertension Personal history of malignant neoplasm KIDNEY/LIVER/BRAIN Heart disease Hyperlipidemia Stroke Asthma Father Diabetes Essential hypertension Personal history of malignant neoplasm BONE Heart disease Asthma Sister Diabetes Essential hypertension Depression Heart disease Asthma Grandfather No problems noted. Grandfather No problems noted. Grandmother Personal history of malignant neoplasm UTERINE Grandmother Diabetes Aunt Personal history of malignant neoplasm BREAST Brother Hyperlipidemia Stroke Sister Asthma Son Asthma Daughter Depression Asthma Daughter Asthma Daughter Depression Neoplasm Asthma Brother No problems noted. 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
--- NOTE | 2021-10-07 09:19 | PGE_ITS ---
Date of Service Date of service: 10/07/21 Time of Service: 07:45 Assessment and Plan Assessment and plan (1) Hypokalemia: Start date: 10/07/21 Start time: 07:45 Status: Acute Assessment and plan: 3.4 replete with IV and monitor. (2) Closed bimalleolar fracture of right ankle: Start date: 10/07/21 Start time: 07:45 Status: Acute Assessment and plan: Reduction done 2 dasys ago for pain management. 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 Going to OR today for repair of left ankle. Qualifiers: Encounter type: initial encounter Qualified Code(s): S82.841A - Displaced bimalleolar fracture of right lower leg, initial encounter for closed fracture (3) Medial meniscus tear: Start date: 10/07/21 Start time: 07:45 Status: Acute Assessment and plan: From previous fall, with occult fx to knee. no surgery required, however d/t above on bed rest, Qualifiers: Tear current or old: current Encounter type: subsequent encounter Meniscus tear of knee type: unspecified type Laterality: right Qualified Code(s): S83.241D - Other tear of medial meniscus, current injury, right knee, subsequent encounter (4) Essential hypertension: Start date: 10/07/21 Start time: 07:45 Status: Chronic Assessment and plan: continue home medications (5) Diastolic CHF: Start date: 10/07/21 Start time: 07:45 Assessment and plan: as above daily wt, diuretics, patient appears to no longer be dry. Fluid restriction was stopped and fluids started at MN d/t NPO. She did receive a bolus yesterday d/t being dry echo revealed Mild concentric left ventricular hypertrophy. Estimated ejection fraction is 60%. Wall motion is normal Normal right ventricular size and systolic function Both atria are normal in size Mildly sclerotic trileaflet aortic valve without stenosis or regurgitation Mild mitral annular calcification, trace mitral regurgitation Normal tricuspid valve with mild regurgitation. Estimated right ventricular systolic pressure is 37 mmHg Qualifiers: Heart failure chronicity: chronic Qualified Code(s): I50.32 - Chronic diastolic (congestive) heart failure (6) CAD (coronary artery disease), [place] coronary artery: Start date: 10/07/21 Start time: 07:45 Status: Chronic Assessment and plan: continue home medication, monitor daily wts and give doses of metalzaone as needed as patient easily goes into diasotlic HF Qualifiers: [place] vs. transplanted heart: [place] heart Associated angina: without angina Qualified Code(s): I25.10 - Atherosclerotic heart disease of [place] coronary artery without angina pectoris (7) Restless leg syndrome: Start date: 10/07/21 Start time: 07:45 Assessment and plan: Continue reopiriole (8) Seizure: Start date: 10/07/21 Start time: 07:45 Assessment and plan: continue keppra (9) Pulmonary hypertension: Start date: 10/07/21 Start time: 07:45 Assessment and plan: continue oxygen, diuretics, daily wts and monitoring fluid status (10) Palliative care patient: Start date: 10/07/21 Start time: 07:45 Assessment and plan: will follow she is seen by Dr. 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 esquivel Subjective Subjective Patient reports: other Interval history since last seen: Patient is going to OR today with Dr. Edouard for repair of left ankle. NPO since MN and IVF infusing. Exam Const General: cooperative, comfortable, no acute distress and other (severe pain to RLE) Nutritional Appearance: obese Orientation: alert, awake and oriented x3 Eyes Eyelids: eyelids normal Pupils: PERRL EOM: EOM intact bilaterally Neck Neck: normal visual inspection and no JVD Lymphatic: no lymphadenopathy noted Resp Effort & Inspection: normal respiratory effort Auscultation: clear to auscultation bilaterally Cardio Jugular venous pressure: no JVD Rhythm: regular rhythm Heart Sounds: S1 normal GI Auscultation: normal bowel sounds Skin General skin exam: no rashes or lesions noted Neuro General: patient alert, patient awake and patient oriented x3 Cognition: normal cognition Speech: speech normal Gait: normal gait Extrem General: abnormal to inspection and other (RLE wrapped in celeste wraps cap refill normal CMST +) Right lower extremity: abnormal to inspection and ROM limited Objective Last Vital Signs Temp 36.8 C 10/07/21 07:31 Pulse 65 10/07/21 07:31 Resp 16 10/07/21 07:31 BP 108/69 10/07/21 07:31 Pulse Ox 95 10/07/21 07:31 Laboratory Results - last 24 hr 10/05/21 10/07/21 10/07/21 06:25 06:30 06:30 WBC RBC Hgb Hct MCV MCH MCHC RDW Plt Count MPV Immature Gran % Neutrophils % Lymphocytes % Monocytes % Eosinophils % Basophils % Nucleated RBC % Absolute Neutrophils Absolute Lymphocytes Absolute Monocytes Absolute Eosinophils Absolute Basophils Sodium 141 Potassium 3.4 L Chloride 101 Carbon Dioxide 32.7 H Anion Gap 7.3 BUN 68 H Creatinine 2.4 H Estimated GFR/1.73 m2 20.08 Glucose 107 H Calcium 9.1 Magnesium 2.0 25-OH Vitamin D Total 108.2 H* 10/07/21 06:30 WBC 12.65 H RBC 3.83 L Hgb 8.8 L Hct 31.1 L MCV 81.2 MCH 23.0 L MCHC 28.3 L RDW 17.5 H Plt Count 480 H MPV 10.1 Immature Gran % 1.1 Neutrophils % 71.2 Lymphocytes % 12.6 Monocytes % 9.2 Eosinophils % 5.2 Basophils % 0.7 Nucleated RBC % 0 Absolute Neutrophils 9.01 H Absolute Lymphocytes 1.59 Absolute Monocytes 1.16 H Absolute Eosinophils 0.66 Absolute Basophils 0.09 Sodium Potassium Chloride Carbon Dioxide Anion Gap BUN Creatinine Estimated GFR/1.73 m2 Glucose Calcium Magnesium 25-OH Vitamin D Total
[2021-10-07] MEDS: Magnesium Chloride 64 MG TABCR PO ×2 (11:06→21:37)
--- NOTE | 2021-10-07 13:00 | DI.RAD_ITS ---
Exam(s) XR ANKLE RT 2V EXAM: XR ANKLE RT 2V CLINICAL HISTORY: displaced right trimalleolar ankle fracture TECHNIQUE: 2D and realtime digital imaging was performed. CONTRAST MATERIAL: Refer to procedure report. COMPARISON: CR XR ANKLE RT COMPLETE from 10/05/2021 FINDINGS: Fluoroscopy was provided for Dr. Edouard during the performance of a open reduction and internal fixat ion of the right ankle fracture dislocation.. Please refer to the procedure report for complete deta ils. Ka,r=1.04 mGy IMPRESSION: RADIATION DOSE DELIVERED:
--- NOTE | 2021-10-07 13:05 | CHAPLAIN ---
Ann-Marie is waiting to go to the OR this afternoon for surgery on her ankle fracture. She is anxious about getting the surgery done, but knows that once it is over she can focus on healing. She said she plans to go to [facility] for rehab and before going home, and she found out a friend of hers is currently at [facility] so she's looking forward to playing cribbage with him. Megan talked about missing her dog, Candy. She also said that the friend she was staying with then she fell, has told her that she's welcome to come back. That's a relief for Megan, who move out of her daughter's home recently because the situation was toxic.
[2021-10-07] MEDS: Bupivacaine 0.5% Pres-Free 30 ML VIAL (13:28)
[2021-10-07] MEDS: ceFAZolin 2 GM/50 ML BAG 3 GM (14:13)
--- NOTE | 2021-10-07 14:38 | W.ANESNERVE ---
Nerve Block Single Injection Procedure Date and Time Date Performed: 10/07/21 Procedure Start: 13:28 Location Where Procedure Performed Procedure Location: PACU Reason Performed: Other Requesting Provider: Mesfin Edouard Requesting Provider (not listed above): preoperative pain mangement, currently 04/20 Timeout Performed Timeout Performed: Yes Monitoring Used ECG, Blood Pressure and SpO2 Sterility Sterility: Hand Hygiene, Surgical Cap, Surgical Mask and Sterile Gloves Sedation Given During Procedure Sedation Given (Indicate Dose Given): No Sedation given Patient Mental Status Patient Mental Status: Awake Nerve Block 1st Nerve Block: Laterality: Right Block Type: Adductor Canal Needle / Catheter Used: 120mm SonoPlex II Local Anesthetic Bolus (Indicate Dose Given): Lidocaine used for local infiltration of skin, Injected in 3-5ml increments after negative blood aspiration, Bupivacaine 0.5% Dose:: 10 and Exparel Dose:: 7 Additives (Indicate Dose Given): None Ultrasound: Sterile probe cover and gel used Ultrasound Image Saved?: Yes Nerve Stimulator: Not Used Paresthesia: None Procedure Tolerated: No Complications Procedure Outcome: Successful Procedure Comment: very challenging anatomy due to depth. Performed By: Mirza Chappell 2nd Nerve Block: Laterality: Right Block Type: Popliteal Sciatic Needle / Catheter Used: 120mm SonoPlex II Local Anesthetic Bolus (Indicate Dose Given): Lidocaine used for local infiltration of skin, Injected in 3-5ml increments after negative blood aspiration, Bupivacaine 0.5% Dose:: 15 mL and Exparel Dose:: 15 mL Additives (Indicate Dose Given): None Ultrasound: Sterile probe cover and gel used Ultrasound Image Saved?: Yes Nerve Stimulator: No twitch or parasthesia noted < 0.5 mA Paresthesia: Right Paresthesia Duration: Transient Procedure Tolerated: No Complications and Patient tolerated well Procedure Outcome: Successful Procedure Comment: paresthesia with needle near the common peroneal, better with needle reposition. challenging anatomy. Performed By: amrita
[2021-10-07] MEDS: Lidocaine 1% Multi-Dose 50 ML VIAL (15:05)
[2021-10-07] MEDS: Bupivacaine 0.25% Pres-Free 30 ML VIAL (15:05)
--- NOTE | 2021-10-07 16:57 | W.PM.OP ---
Date of service: 10/07/21 Time of Service: 15:00 Operative Note Operative Note DATE OF PROCEDURE: 10/07/21 PRE-OP DIAGNOSIS: Right displaced trimalleolar ankle fracture with near dislocation POST-OP DIAGNOSIS: same PROCEDURE: 1. Right trimalleolar ankle fracture open reduction internal fixation, CPT #53229: Fixation of medial and lateral malleoli 2. Open treatment syndesmosis disruption, CPT #47028 SURGEON: Mesfin Edouard COST ACCOUNTING ANALYST: Randy Vega COST ACCOUNTING ANALYST: Wendy Miller ANESTHESIA TYPE: Local By Surgeon, Spinal and Primary Nerve Block Refer to Anesthesia Record ESTIMATED BLOOD LOSS: 15 TOURNIQUET TIME: 0 COMPLICATIONS: None Patient was transported to: PACU Patient's condition: stable Implants: Synthes 2.7/3.5 mm variable angle distal fibula locking plate with screws 3.5 mm quad cortical syndesmosis screw Partially threaded cancellous 4.0 mm medial malleolus screw Indications: Please see complete medical record for details. Procedure Description: In the operating room, spinal anesthesia was induced. The patient was positioned supine on the operating room table. All bony prominences were well-padded. Preoperative antibiotics were administered. The right ankle was prepped and draped in the usual sterile fashion. The correct patient, procedure, and side of the procedure were all verified prior to incision. 50?50 mixture about 40 cc lidocaine 1.5% epinephrine and 0.25% bupivacaine was infiltrated about the planned medial and lateral surgical sites. Direct lateral longitudinal approach was taken to the fibula centered about the fracture site and extended appropriately distally and proximally. Full-thickness flaps were raised and periosteum elevated exposing the fracture which was displaced and irrigated of fibrinous and early healing tissue. The oblique fracture could be reduced with a bone clamp and there is posterior comminution containing soft tissue attachments likely viable that was brought in and reduced well. Hermes-Rusty type stitch using a suture tape double past was used to secure a provisionally hold fracture reduction and comminuted piece in location. Appropriate length distal fibula variable angle locking plate was chosen and applied to the lateral fibula. Metaphyseal cortex screw was used to bring the plate down to bone. Manual direct pressure was used to maintain plate to bone more proximally distally while the distal and proximal locking holes were filled with locking screws proximally bicortical and distally care taken to remain unicortical not penetrate into the joint. X-rays confirmed excellent distal fibula and ankle mortise alignment. Stress external rotation view was only borderline positive, but given exceptionally poor bone quality decision was made to proceed with additional fixation with a single quad cortical 2.5 mm drill and 3.5 millimeter screw placed through the oblong hole at the appropriate level above the joint exiting centrally on the medial distal tibia. External rotation stress was now very stable. Curvilinear approach to the medial malleolus was then used raising full-thickness flaps retracting the neurovascular bundle anterior. There is significant and profound bone loss and comminution medially about the shoulder. Numerous osteochondral devitalized loose fragments were removed from the ankle joint. Bone loss prevented anatomic reduction. Decompressive bone loss also created step-off at the medial shoulder. The periosteum was comminuted and fracture going up the anterior medial distal tibia as well but somewhat fixated by the syndesmotic screw from the lateral side. Patient was made to proceed with limited fixation. A single central 4.0 mm partially-threaded cancellous screw was placed with careful [id number] apposition maintained despite the bone loss having predrilled with a 2.5 mm drill. The screw had poor purchase but did stop motion at the medial malleolus. Final x-rays showed maintained ankle mortise, excellent distal fibula and syndesmosis alignment with appropriate hardware placement. Medial shoulder showed some step-off and bone loss comminution. Stress x-rays were negative post fixation. Medial lateral wounds were copiously irrigated with normal saline. Deep tissue was closed as best possible over the plate bone medial laterally with 2-0 Monocryl. Subcutaneous tissue tissue was closed in 2-0 Monocryl in a buried in fashion. Skin was closed using 4-0 nylon horizontal mattress fashion. Hydroperoxide was used to cleanse the extremity. Xeroform applied over both incisions pop followed by 4 x 4 gauze. Sterile soft roll was applied and then a short leg AO splint plaster molded to the extremity in neutral position. The patient awoke from anesthesia without complication and was transferred to the recovery room in a stable condition.
--- NOTE | 2021-10-07 16:57 | W.PM.PROGNOT ---
Date of Service Date of service: 10/07/21 Time of Service: 17:01 Assessment and Plan Assessment and plan (1) Closed avulsion fracture of condyle of right femur: Status: Acute (2) Closed trimalleolar fracture of right ankle: Status: Acute Assessment and plan: 70-year-old female postop day #0 status post right trimalleolar ankle fracture ORIF with syndesmotic fixation. Prior ipsilateral right knee injury with stable MCL avulsion type medial femoral condyle injury and lateral meniscus tear. Right lower extremity elevation Complete 24 hours postoperative antibiotics Discontinue Flynn catheter postop day #1 Pain control-Multimodal Physical therapy ordered: Non-weightbearing right ankle x2 weeks followed by protected weightbearing (less than 50%) x4 weeks. No restrictions on the knee. May resume chemical DVT prophylaxis tomorrow assuming hemodynamically stable Discharge when medical appropriate Follow-up with Dr. Edouard outpatient [facility] in 2 to 3 weeks Appreciate medical management Qualifiers: Encounter type: initial encounter Qualified Code(s): S82.851A - Displaced trimalleolar fracture of right lower leg, initial encounter for closed fracture (3) Tear of lateral meniscus of right knee: Status: Acute Qualifiers: Tear current or old: current Encounter type: initial encounter Meniscus tear of knee type: complex Qualified Code(s): S83.271A - Complex tear of lateral meniscus, current injury, right knee, initial encounter (4) Fracture of proximal end of right fibula: Status: Acute Qualifiers: Encounter type: initial encounter Fracture type: closed Fracture morphology: other fracture Qualified Code(s): S82.831A - Other fracture of upper and lower end of right fibula, initial encounter for closed fracture Objective Last Vital Signs Temp 97.5 F L 10/07/21 16:43 Pulse 62 10/07/21 16:43 Resp 15 10/07/21 16:43 BP 152/63 H 10/07/21 16:43 Pulse Ox 97 10/07/21 16:43 Laboratory Results - last 24 hr 10/05/21 10/07/21 10/07/21 06:25 06:30 06:30 WBC RBC Hgb Hct MCV MCH MCHC RDW Plt Count MPV Immature Gran % Neutrophils % Lymphocytes % Monocytes % Eosinophils % Basophils % Nucleated RBC % Absolute Neutrophils Absolute Lymphocytes Absolute Monocytes Absolute Eosinophils Absolute Basophils Sodium 141 Potassium 3.4 L Chloride 101 Carbon Dioxide 32.7 H Anion Gap 7.3 BUN 68 H Creatinine 2.4 H Estimated GFR/1.73 m2 20.08 Glucose 107 H Calcium 9.1 Magnesium 2.0 25-OH Vitamin D Total 108.2 H* 10/07/21 06:30 WBC 12.65 H RBC 3.83 L Hgb 8.8 L Hct 31.1 L MCV 81.2 MCH 23.0 L MCHC 28.3 L RDW 17.5 H Plt Count 480 H MPV 10.1 Immature Gran % 1.1 Neutrophils % 71.2 Lymphocytes % 12.6 Monocytes % 9.2 Eosinophils % 5.2 Basophils % 0.7 Nucleated RBC % 0 Absolute Neutrophils 9.01 H Absolute Lymphocytes 1.59 Absolute Monocytes 1.16 H Absolute Eosinophils 0.66 Absolute Basophils 0.09 Sodium Potassium Chloride Carbon Dioxide Anion Gap BUN Creatinine Estimated GFR/1.73 m2 Glucose Calcium Magnesium 25-OH Vitamin D Total
--- NOTE | 2021-10-07 16:59 | W.ANESPOSTOP ---
Postoperative Evaluation Date, Time and Location Date Performed: 10/07/21 Time Performed: 16:59 Patient Location: PACU Vital Signs Most Recent Imported Vital Signs: Most Recent Vital Signs Temp Pulse Resp BP Pulse Ox 36.4 C L 62 15 152/63 H 97 10/07/21 16:43 10/07/21 16:43 10/07/21 16:43 10/07/21 16:43 10/07/21 16:43 Most Recent Vital Signs Temp Pulse Resp BP Pulse Ox 36.1 C L 57 L 15 110/57 L 95 10/05/21 14:11 10/05/21 14:15 10/05/21 14:11 10/05/21 14:15 10/05/21 14:11 Pain Score Most Recent Pain Score: Most Recent Pain Score Pain Level [Right Ankle] 3 10/06/21 10:44 Pain Level [Right Ankle] 10 10/03/21 08:00 Pain Level 0 10/07/21 16:43 Assessment Mental Status: Awake (Alert & Oriented to Patient Baseline) Airway and Respiratory Function: Patent airway with normal (patient baseline) respiratory exam Cardiovascular Function: Hemodynamically Stable Hydration Status: Adequately Hydrated Nausea & Vomiting: No Nausea or Vomiting Pain: Pt. Denies Any Pain Peripheral Nerve Block: Regional nerve block not resolved at time of post operative discharge
--- NOTE | 2021-10-07 17:40 | CMPROGNOTE_ITS ---
Care Management Progress Note S/O: Bibi was lying in bed, preparing to go to the OR for ankle fx. CM will continue to follow. A: Ann-Marie is a 70 year old female admitted to [facility] on 10/03/21 for R Ankle fx. P: Anticipate Bibi will go to SNF post surgically, once she is medically cleared. CM sent referrals to [facility] and the [facility] is not accepting admissions at this time. She will transport via w/c van vs EMS, depending on mobility at time of discharge. She will follow up with her PCP and discharge plan of care. CM will continue to follow.
[2021-10-07] MEDS: Nystatin POWDER 60 GM JAR TP (20:24)
[2021-10-07] MEDS: Insulin Glargine 300 UNITS/3 ML PEN 35 UNITS SC (20:25)
[2021-10-07] MEDS: ceFAZolin 1 GM/50 ML BAG IVPB (21:38)
[2021-10-08] MEDS: MORPHine 2 MG/ML SYR IVP (01:07)
[2021-10-08 03:30] VITALS: BP 129/57; PULSE 77; RESP 17; TEMP 36.7; O2SAT 95
[2021-10-08] MEDS: ceFAZolin 1 GM/50 ML BAG IVPB ×2 (06:04→13:38)
[2021-10-08 07:11] LABS: Abs Immature Grans 0.14 10^3/uL (0.0-0.06); Absolute Eosinophil Count 0.41 10^3/uL (0.0-0.7); Absolute Lymphocyte Count 0.96 10^3/uL (1.2-3.4); Absolute Monocyte Count 1.15 10^3/uL (0.1-0.8); Absolute Neutrophil Count 11.94 10^3/uL (1.2-6.7); Basophils % 0.7; Eosinophils % 2.8; HCT 35.1 % (36.0-46.0); HGB 9.7 g/dL (11.2-15.7); Lymphocytes % 6.5; MCH 22.7 pg (27.0-33.0); MCHC 27.6 % (32.0-36.0); MPV 9.7 fL (8.0-11.0); Monocytes % 7.8; Neutrophils % 81.2; Nucleated RBC 0 %; Platelet Count 513 10^3/uL (130-400); RBC 4.28 10^6/uL (3.93-5.22); RDW 17.7 % (11.7-14.6); RDW-SD 51.8 fL
[2021-10-08 07:21] VITALS: BP 112/58; PULSE 76; RESP 16; TEMP 37.8; O2SAT 95
[2021-10-08 07:33] LABS: Anion Gap 7.1 mmol/L (3-11); BUN 63 mg/dL (7-18); CO2 36.9 mmol/L (21.0-32.0); CREATININE 2.4 mg/dL (0.55-1.02); Calcium 9.5 mg/dL (8.5-10.1); Chloride 95 mmol/L (98-107); Estimated GFR 20.08 (mL/min/1.73m2); Glucose 130 mg/dL (74-106); Potassium 3.1 mmol/L (3.5-5.1); Sodium 139 mmol/L (136-145)
[2021-10-08 07:59] LABS: Diff Comment RBC Morph Reviewed
[2021-10-08 08:00] LABS: Hypochromasia 2+; Microcytosis 1+
[2021-10-08] MEDS: Creon, Lipase 6,000 CAPCR 1 CAP PO ×3 (08:33→20:02)
[2021-10-08] MEDS: Atorvastatin 40 MG TAB PO (08:33)
[2021-10-08] MEDS: Nystatin POWDER 60 GM JAR TP ×3 (08:33→20:03)
[2021-10-08] MEDS: Docusate Sodium 100 MG CAP PO (08:33)
[2021-10-08] MEDS: Aspirin E.C. 81 MG TABEC PO (08:33)
[2021-10-08] MEDS: Calcium 600mg/Vit D 200U TAB 1 TAB PO ×2 (08:34→20:02)
[2021-10-08] MEDS: Isosorbide Mononitrate 10 MG TAB PO ×2 (08:34→14:54)
[2021-10-08] MEDS: levETIRAcetam 500 MG TAB PO ×2 (08:34→20:02)
[2021-10-08] MEDS: Omeprazole 20 MG CAPCR 40 MG PO ×2 (08:34→20:01)
[2021-10-08] MEDS: Torsemide 100 MG TAB PO (08:34)
[2021-10-08] MEDS: Metoprolol CR 100 MG TABCR PO (08:34)
[2021-10-08] MEDS: DULoxetine 30 MG CAP 60 MG PO (08:34)
[2021-10-08] MEDS: Gabapentin 100 MG CAP PO ×3 (08:34→20:02)
[2021-10-08] MEDS: Insulin Glargine 300 UNITS/3 ML PEN 35 UNITS SC ×2 (08:35→20:02)
[2021-10-08] MEDS: Polyethylene Glycol 3350 17 GM PACKET PO (08:35)
[2021-10-08] MEDS: Allopurinol 100 MG TAB PO (08:35)
--- NOTE | 2021-10-08 08:45 | PT.INIE ---
Date of service: 10/08/21 Time of Service: 08:45 PT Notes Visit Reasons: Bimalellolar FX of Right Ankle Physical Therapy Inpatient Initial Evaluation Date: 10/08/2021 Referring Doctor: Mesfin Edouard MD PT Orders: PT CONSULT: Status post Ortho surgery. Non-weight bearing right ankle. No knee restrictions Precautions: Per orthopod: NWB on R LE with AD for 2 weeks followed by protected weight bearing (less than 50%) x 4 weeks. No knee restrictions. Premedicate for pain beofre session. Fall. Standard. Patient Profile/Admitting Diagnosis: iBbi is a 70-year-old female palliative care patient with multiple medical co-morbidities now with with right displaced trimalleolar fracture with near dislocation S/P ORIF of medial and lateral malleoli with syndesmotic fixation on postoperative day 1. She was previously admitted to this hospital on 09/26/2021 for tear of the lateral meniscus of the right knee, cyst of the lateral meniscus of the right knee, and avulsion fracture of the right femoral condyle sustained from repeated falls at home. She was seen for physical therapy from 09/27/2021 through 09/30/2021 and was given the recommendation of SNF placement for continued rehabilitation which patient declined to and instead went home. PMHX: All Active Problems (Updated 10/03/21 @ 15:24 by Tiana Grey NP) Essential hypertension (Chronic 06/13/13) Diabetes mellitus (Chronic 09/20/10) DVT prophylaxis (Acute) CAD (coronary artery disease), [place] coronary artery (Chronic) Closed bimalleolar fracture of right ankle (Acute) Closed avulsion fracture of condyle of right femur (Acute) Cyst of lateral meniscus of right knee (Acute) Tear of lateral meniscus of right knee (Acute) Medial meniscus tear (Acute) Wound abscess (Acute) Discharge planning issues (Acute) Medical History Abnormal mammography 08/10/06 Acute kidney injury superimposed on chronic kidney disease [id number] kidney injury Altered mental status Anemia Ankle pain (03/13/14) Annual physical exam (12/14/15) Atrial fibrillation Atrial flutter BMI 40.0-44.9, adult (12/02/14) CAD (coronary artery disease), [place] coronary artery Carpal tunnel syndrome Carpal tunnel syndrome (08/10/06) BILATERAL R S/P SURGERY Cervical disc disorder with myelopathy (08/21/08) S/P surgery x 2 Cervical spondylosis with myelopathy Chest pain Neg Stress test CHF (congestive heart failure) Chronic obstructive lung disease CKD (chronic kidney disease) stage 3, GFR 30-59 ml/min Cr about 2.5 CKD stage 4 due to type 2 diabetes mellitus Congestive heart failure Constipation Dehydration Diabetes mellitus 09/20/10 Positive Microalbumin Diastolic CHF DNR no code (do not resuscitate) DVT (deep venous thrombosis) Dysuria Essential hypertension Folate deficiency (02/15/16) Gout Gout (07/06/11) Gram-positive bacteremia Greater trochanteric bursitis of left hip Hammer toe Left/right HAP (hospital-acquired pneumonia) (01/15/19) HCAP (healthcare-associated pneumonia) Heart failure with preserved ejection fraction, borderline, class III Hepatomegaly 06/10/04 Hip joint inflamed (09/03/15) Hip pain, left Hip pain, right Hyperglycemia Hyperlipidemia (08/10/00) Hypertension Hypomagnesemia Hypoxia IDDM (insulin dependent diabetes mellitus) Left hip pain Low back pain (04/10/03) DISC HERNIATION L4. MULTILEVEL DJD/SPINAL STENOSIS BY MRI; S/P surgery Lump in neck Macrocytic anemia Menopausal syndrome 07/11/03 Multiple falls Muscle fatigue 03/04/13 Myoclonic epileptic seizures Numbness and tingling in left upper extremity Palliative care patient Pancreatic atrophy Posterior tibial tendon dysfunction 02/03/16 Postmenopausal bleeding neg. endometrial biopsy Postoperative wound dehiscence (12/23/15) Prerenal azotemia Primary osteoarthritis of left hip (09/17/15) Pulmonary hypertension Renal impairment (07/11/03) ADRENAL MASS. F/U W/ KINLAW positive microalbumin Restless leg syndrome Rotator cuff syndrome (08/01/09) Seizure Shingles Smoker (06/30/16) 01/17/17 1-2 cig/wk SOB (shortness of breath) Spinal stenosis of lumbar region (02/15/16) Spinal stenosis of lumbar region at multiple levels Tarsal tunnel syndrome 06/11/13 Tarsal tunnel syndrome (06/11/13) Trochanteric bursitis 03/18/13 Upper respiratory tract infection (08/03/15) UTI (urinary tract infection) Vaginal atrophy Vitamin D deficiency Vitamin D deficiency Weakness Surgical History Arthrodesis right 2nd toe Cataract (01/07/14) FOLLOWED BY [employer] cervical repair (~10/2008) C6-C7 DISK; RECURRENT SURGERY Cholecystectomy (07/31/13) Endometrial Biopsy NEG H/O arthrodesis right second toe H/O Spinal surgery multiple spine surgeries; low back x 2; She had multilevel DJD and spinal stenosis; disc herniation. 2009-cervical repair; C6-C7 disc; recurrent surgery. History of bilateral tubal ligation 09/11/80 History of gynecologic surgery endometrial biopsy-neg History of hip surgery 11/10/15 left hip arthroplasty 12/04/15-placement of wound VAC to left hip History of orthopedic surgery 09/11/97 tarsal tunnel release Left eye surgery 12/31/17 Ligation of fallopian tube (~1980) Open Carpal Tunnel release Right wrist surgery 10/26/17 Rotator Cuff Repair (~1980) S/P CABG (coronary artery bypass graft) (01/03/19) 4 vessel CABG and LA appendage excision, [place]. Nav Wang, [facility] [place] S/P carpal tunnel release S/P cholecystectomy 09/11/12 S/P rotator cuff repair 09/11/80 SPINE SURGERY Multiple spine surgeries, low back x 2. She had multilevel DJD and spinal stenosis, disc herniation Status post incision and drainage 12/04/15 left hip surgical wound dehiscence and infection tarsal tunnel release (~1997) Total replacement of hip [facility]; LEFT HIP Social History/Home Situation: Independent with all mobility ADLs using the front-wheeled walker. Has had repeated falls the past month. Equipment Owned/DME: [facility] Subjective: Reported being drowsy but is able to answer questions. Complains of intermittent spasms on R LE that decreases ability to move and limits concentration. Per Nurse Nguyen, patient was given 2 mg of Morphine at 1 am today and has been drowsy since. Reports 8-9/10 pain in the R LE and complains of fatigue and having not much energy to do anything. Vomited x 3 during low intensity bed-level exercises, Nurse Nguyen made aware. Objective: General Observation: Supine in bed. R ankle in short leg AO splint covered with MARTIR wraps. IV access in R UE. Patient appears drowsy. Mental Status: Drowsy but oriented as to person, place, time, and purpose. Pain: 8-9/10 in R LE ROM: Right Upper Extremity: Shoulder Flexion WFL. Shoulder abduction WFL. Elbow flexion WFL. Wrist flexion WFL. Functional opening and closing of hand WFL. Left Upper Extremity: Shoulder Flexion WFL. Shoulder abduction WFL. Elbow flexion WFL. Wrist flexion WFL. Functional opening and closing of hand WFL. Right Lower Extremity: Hip flexion less than 25% of active ROM due to pain and intermittent spasms. Hip abduction less than 25% of active ROM.. Knee flexion WFL. Ankle dorsiflexion unable. Ankle plantarflexion unable. Left Lower Extremity: Hip flexion WFL. Hip abduction WFL. Knee flexion WFL. Ankle dorsiflexion WFL. Ankle plantarflexion WFL. Strength: Right Upper Extremity: Shoulder flexors 4/5. Shoulder abductors 4/5. Elbow flexors 4/5. Elbow extensors 4/5. Customer Sales Service Manager strong. Left Upper Extremity: Shoulder flexors 4/5. Shoulder abductors 4/5. Elbow flexors 4/5. Elbow extensors 4/5. Customer Sales Service Manager strong. Right Lower Extremity: Hip flexors 2-/5. Hip abductors 2-/5. Knee flexors 2-/5. Knee extensors 2-/5. Ankle dorsiflexors 0/5. Ankle plantarflexors 0/5. Left Lower Extremity: Hip flexors 4-/5. Hip abductors 4-/5. Knee flexors 4-/5. Knee extensors 4-/5. Ankle dorsiflexors 4-/5. Ankle plantarflexors 4-/5. Bed Mobility/Transfers: Not safe yet to be tested due to lethargy, pain level, and patient declination Gait: Not safe yet to be tested due to lethargy, pain level, and patient declination Balance: Not safe yet to be tested due to lethargy, pain level, and patient declination Special Tests: Mobility Limitations Standardized Measure [facility] AM-PAC 6 clicks Basic Mobility Inpatient Short Form: Raw Score: 6 CMS Score: 100% deficit Informed Consent/Education: Patient was instructed in purpose of PT consult and plan of care. Agreeable to proceed with established PT POC to achieve personal goals. Assessment: Decreased attentiveness, pain level, nausea, and vomitting precluded mobility assessment at this time. Patient refused a second attempt at getting out of bed in the afternoon stating that she is not ready yet. Will advise on-call PULLMAN CLERK for the weekend to focus on bed level exercises as well as edge of bed sitting. Will initiate out-of-bed activities when pain is much more controlled and patient is agreeable. Nursing staff may use mechanical lift if a transfer is needed. Patient presents with clinical signs and symptoms consistent with current/admitting diagnoses that have resulted to mobility limitations, gait instability, generalized weakness, and overall ADL decline as demonstrated by the following impairment level findings: 1. Decreased strength to B UE/LE 2. Unable to test sitting/standing balance 3. Impaired activity tolerance 4. Limitation of joint range of motion in R LE joints 5. Pain in R ankle and foot at 8-9/10 6. Intermittent spasms in R LE 7. Fearfulness of falling 8. Drowsiness 9. NWB on R LE Impairments are contributing to the following functional limitations: 1. Decline in bed mobility skills 2. Decline in transfer skills 3. Unable to ambulate 4. Increased completion time for mobility ADL performance 5. Increased risk for falls 6. Inability to thrive at home Patient is assessed as a 54191 high complexity based on the following: History: 70-year-old female with past medical history as indicated above Examination: Demonstrable impairment in strength, balance, and mobility level with underlying impairments and functional limitations as exhibited above as well as deficit score of 100% utilizing the [facility] Mobility Inpatient Short Form Presentation: Unstable Decision Makin high complexity Goals: Goals X1 week 1. Supine-Sit minimal assist 2. Sit-Supine minimal assist 3. Sit-Stand minimal assist 4. Stand-Sit minimal assist with bariatric FWW 5. Bed-Chair minimal assist with bariatric FWW 6. Chair-Bed minimal assist with bariatric FWW 7. Minimal assist with bariatric FWW with gait on level surface for at least 50 feet without report of pain nor dyspnea 8. Fair static and dynamic standing balance/tolerance Plan of Care/Treatment Plan: 1-2x/day, 7 days/week x 1 week. Plan of care has been reviewed with the PULLMAN CLERK providing the service under Physical Therapy direction. Initiate Physical Therapy intervention for pain management as needed, strengthening, bed mobility, transfers, gait, stairs, balance training, and use of assistive device. DISCHARGE RECOMMENDATIONS: [] Home with no services [] [] Home with services [specify] [] Home with outpatient PT [] [X] SNF for continued rehabilitation. Discharge to SNF when medically cleared by hospitalist. Patient will benefit from [facility] facility placement for continued skilled physical therapy services in order to progress mobility level, strength, and balance in preparation for a safe discharge to home. [] [employer] [facility] [] [] SNF versus LTC based on ability to participate and progress [] TREATMENT CODE/TIME: 86301 x 27 minutes beginning at 8:45 AM. Thank you for the opportunity to participate in the care of this patient. Kathryn Sainz PT, DPT, CLT [facility] [place], [place]
--- NOTE | 2021-10-08 10:21 | W.PM.PROGNOT ---
Date of Service Date of service: 10/08/21 Time of Service: 10:53 Assessment and Plan Assessment and plan (1) Closed avulsion fracture of condyle of right femur: Status: Acute (2) Closed trimalleolar fracture of right ankle: Status: Acute Assessment and plan: 70-year-old female postop day #1 status post right trimalleolar ankle fracture ORIF with syndesmotic fixation. Prior ipsilateral right knee injury with stable MCL avulsion type medial femoral condyle injury and lateral meniscus tear. Right lower extremity elevation Complete 24 hours postoperative antibiotics Discontinue Flynn catheter postop day #1 Pain control-Multimodal Physical therapy ordered: Non-weightbearing right ankle x2 weeks followed by protected weightbearing (less than 50%) x4 weeks. No restrictions on the knee. May resume chemical DVT prophylaxis tomorrow assuming hemodynamically stable Discharge when medical appropriate Follow-up with Dr. Edouard outpatient [facility] in 2 to 3 weeks Appreciate medical management. Discussed observing versus working up low-grade fever leukocytosis which may be reactive stress from surgery, atelectasis, or pulmonary urinary urinary etiology. Call me directly with any questions or concerns about this patient Qualifiers: Encounter type: initial encounter Qualified Code(s): S82.851A - Displaced trimalleolar fracture of right lower leg, initial encounter for closed fracture (3) Tear of lateral meniscus of right knee: Status: Acute Qualifiers: Encounter type: initial encounter Meniscus tear of knee type: complex Tear current or old: current Qualified Code(s): S83.271A - Complex tear of lateral meniscus, current injury, right knee, initial encounter (4) Fracture of proximal end of right fibula: Status: Acute Qualifiers: Encounter type: initial encounter Fracture morphology: other fracture Fracture type: closed Qualified Code(s): S82.831A - Other fracture of upper and lower end of right fibula, initial encounter for closed fracture Subjective Subjective Interval history since last seen: Nauseous but otherwise resting comfortably in bed. Ankle feels okay. Toes and expose foot feels baseline neuropathy Exam Narrative Exam Narrative: Alert oriented, resting comfortably in hospital bed right lower extremity elevated on pillows and blanket No acute distress. Right knee without any remarkable edema, ecchymosis. Right leg and ankle splint clean dry intact. Demonstrates intact motor with a ease exposed toes. No significant discomfort with passive motion. Baseline neuropathy. Objective Last Vital Signs Temp 100.0 F H 10/08/21 07:21 Pulse 76 10/08/21 07:21 Resp 16 10/08/21 07:21 BP 112/58 L 10/08/21 07:21 Pulse Ox 95 10/08/21 07:21 Laboratory Results - last 24 hr 10/08/21 10/08/21 06:10 06:10 WBC 14.70 H RBC 4.28 Hgb 9.7 L Hct 35.1 L MCV 82.0 MCH 22.7 L MCHC 27.6 L RDW 17.7 H Plt Count 513 H MPV 9.7 Immature Gran % 1.0 Neutrophils % 81.2 Lymphocytes % 6.5 Monocytes % 7.8 Eosinophils % 2.8 Basophils % 0.7 Nucleated RBC % 0 Absolute Neutrophils 11.94 H Absolute Lymphocytes 0.96 L Absolute Monocytes 1.15 H Absolute Eosinophils 0.41 Absolute Basophils 0.10 RBC Morphology See Below Hypochromasia 2+ Microcytosis 1+ Sodium 139 Potassium 3.1 L Chloride 95 L Carbon Dioxide 36.9 H Anion Gap 7.1 BUN 63 H Creatinine 2.4 H Estimated GFR/1.73 m2 20.08 Glucose 130 H Calcium 9.5
[2021-10-08] MEDS: Magnesium Chloride 64 MG TABCR PO ×2 (10:54→22:06)
--- NOTE | 2021-10-08 11:10 | DI.RAD_ITS ---
Exam(s) XR PORTABLE CHEST AP EXAM: XR PORTABLE CHEST AP CLINICAL HISTORY: post op fever TECHNIQUE: 2D digital imaging was performed of the chest. Two images were obtained. AP views were o btained. COMPARISON: CR XR PORTABLE CHEST AP from 02/11/2019 CR,XR XR CHEST 1V IN DI DEPT from 10/03/2021 FINDINGS: MEDIASTINUM: Normal. HEART: Normal. PULMONARY VASCULATURE: Normal. LUNGS: Clear. PLEURAL SPACE: No pleural effusion or pneumothorax. BONE:Within normal limits for the patient's age. OTHER FINDINGS:Postsurgical changes seen in the mediastinum. Prior cervical fusion. Sternal wires a re in place. IMPRESSION: No acute pulmonary findings. DATA REPOSITORY: RADIATION DOSE DELIVERED:
[2021-10-08] MEDS: Insulin Aspart 300 UNITS/3 ML PEN SC ×2 (12:03→17:21)
[2021-10-08] MEDS: Potassium Chloride 20 MEQ TABCR PO ×2 (12:07→17:21)
--- NOTE | 2021-10-08 13:32 | CMPROGNOTE_ITS ---
- If Service Date Differs Date of service: 10/08/21 Time of Service: 13:32 Care Management Progress Note S/O: Bibi was sleeping when CM attempted to meet with her today. Per report, she had surgery on her ankle yesterday. She will be non weight bearing for 2 weeks, and then limited weight bearing for the following 2 weeks. Her plan is to go to SNF once medically cleared. CM called the [facility], who stated that they may be able to accept her next week. CM will continue to follow. A: Ann-Marie is a 70 year old female admitted to [facility] on 10/03/21 for R Ankle fx. P: Anticipate Bibi will go to SNF post surgically, once she is medically cleared. CM sent referrals to [facility] and the [facility] for review. [facility] declined and [facility] is not accepting admissions at this time. She will transport via w/c van vs EMS, depending on mobility at time of discharge. She will follow up with her PCP and discharge plan of care. CM will continue to follow.
[2021-10-08] MEDS: Normal Saline Flush 10 ML SYR IVP ×2 (13:37→14:53)
[2021-10-08 14:43] VITALS: BP 131/72; PULSE 72; RESP 16; TEMP 37.7; O2SAT 97
--- NOTE | 2021-10-08 16:49 | W.PM.PROGNOT ---
Date of Service Date of service: 10/08/21 Time of Service: 16:49 Assessment and Plan Assessment and plan (1) Hypokalemia: Status: Acute Assessment and plan: 3.1 replete and follow (2) Closed bimalleolar fracture of right ankle: Status: Acute Assessment and plan: s/p surgical repair POD #1 status post right trimalleolar ankle fracture ORIF with syndesmotic fixation. followed by orthopedics with following recommendations: Pain control-Multimodal Physical therapy ordered: Non-weightbearing right ankle x2 weeks followed by protected weightbearing (less than 50%) x4 weeks. No restrictions on the knee. May resume chemical DVT prophylaxis tomorrow assuming hemodynamically stable Discharge when medical appropriate Follow-up with Dr. Edouard outpatient [facility] in 2 to 3 weeks Qualifiers: Encounter type: initial encounter Qualified Code(s): S82.841A - Displaced bimalleolar fracture of right lower leg, initial encounter for closed fracture (3) Medial meniscus tear: Status: Acute Assessment and plan: From previous fall, with occult fx to knee. no surgery required, however d/t above on bed rest, Qualifiers: Tear current or old: current Encounter type: subsequent encounter Meniscus tear of knee type: unspecified type Laterality: right Qualified Code(s): S83.241D - Other tear of medial meniscus, current injury, right knee, subsequent encounter (4) Essential hypertension: Status: Chronic Assessment and plan: continue home medications (5) Diastolic CHF: Assessment and plan: as above daily wt, diuretics, patient appears to no longer be dry. Fluid restriction was stopped and fluids started at [place] d/t NPO. She did receive a bolus yesterday d/t being dry echo revealed Mild concentric left ventricular hypertrophy. Estimated ejection fraction is 60%. Wall motion is normal Normal right ventricular size and systolic function Both atria are normal in size Mildly sclerotic trileaflet aortic valve without stenosis or regurgitation Mild mitral annular calcification, trace mitral regurgitation Normal tricuspid valve with mild regurgitation. Estimated right ventricular systolic pressure is 37 mmHg Qualifiers: Heart failure chronicity: chronic Qualified Code(s): I50.32 - Chronic diastolic (congestive) heart failure (6) CAD (coronary artery disease), [place] coronary artery: Status: Chronic Assessment and plan: continue home medication, monitor daily wts and give doses of metalzaone as needed as patient easily goes into diasotlic HF Qualifiers: [place] vs. transplanted heart: [place] heart Associated angina: without angina Qualified Code(s): I25.10 - Atherosclerotic heart disease of [place] coronary artery without angina pectoris (7) Restless leg syndrome: Assessment and plan: Continue reopiriole (8) Seizure: Assessment and plan: continue keppra (9) Pulmonary hypertension: Assessment and plan: continue oxygen, diuretics, daily wts and monitoring fluid status (10) Palliative care patient: Assessment and plan: will follow she is seen by Dr. 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 will need PT discussed with Dr. esquivel Subjective Subjective Patient reports: no new complaints, pain is less, tolerating liquids well and tolerating a regular diet Exam Const General: cooperative Nutritional Appearance: obese Orientation: alert and awake HENMT Head: normal to inspection Mouth: oral mucosae normal Chest Chest: normal inspection of the chest Resp Effort & Inspection: normal respiratory effort Auscultation: clear to auscultation bilaterally Cardio Rate: regular rate Rhythm: regular rhythm GI Inspection: normal to inspection Palpation: soft Auscultation: normal bowel sounds Extrem Right lower extremity: abnormal to inspection (surgical cast in place, good csmt's distally. ) Objective Last Vital Signs Temp 37.7 C H 10/08/21 14:43 Pulse 72 10/08/21 14:43 Resp 16 10/08/21 14:43 BP 131/72 10/08/21 14:43 Pulse Ox 97 10/08/21 14:43 Laboratory Results - last 24 hr 10/08/21 10/08/21 10/08/21 06:10 06:10 06:10 WBC 14.70 H RBC 4.28 Hgb 9.7 L Hct 35.1 L MCV 82.0 MCH 22.7 L MCHC 27.6 L RDW 17.7 H Plt Count 513 H MPV 9.7 Immature Gran % 1.0 Neutrophils % 81.2 Lymphocytes % 6.5 Monocytes % 7.8 Eosinophils % 2.8 Basophils % 0.7 Nucleated RBC % 0 Absolute Neutrophils 11.94 H Absolute Lymphocytes 0.96 L Absolute Monocytes 1.15 H Absolute Eosinophils 0.41 Absolute Basophils 0.10 RBC Morphology See Below Hypochromasia 2+ Microcytosis 1+ Sodium 139 Potassium 3.1 L Chloride 95 L Carbon Dioxide 36.9 H Anion Gap 7.1 BUN 63 H Creatinine 2.4 H Estimated GFR/1.73 m2 20.08 Glucose 130 H Calcium 9.5 Magnesium 2.0
[2021-10-08] MEDS: Lactated Ringers 1,000 ML 50 ML IV (20:01)
[2021-10-08] MEDS: Milk of Magnesia 30 ML CUP PO (20:16)
[2021-10-08 22:21] LABS: Bilirubin Negative (Negative); Blood Trace-lysed (Negative); C & S Indicated? C&S Done As Ordered; Clarity Clear (Clear); Glucose Negative (Negative); Ketones Negative (Negative); Leukocyte Esterase Small (Negative); Nitrite Negative (Negative); Specific Gravity 1.015 (1.005-1.025); Urobilinogen 0.2 EU/dL (Up TO 0.2)
[2021-10-08 22:27] LABS: Bacteria Negative HPF (Negative); Crystals Negative HPF (Negative); Epithelial Cells Few HPF (Negative); Mucus Negative (Negative); WBC 20-50 HPF (0-5)
[2021-10-08 23:06] VITALS: BP 106/62; PULSE 66; RESP 20; TEMP 36.5; O2SAT 95
[2021-10-09 06:36] LABS: Abs Immature Grans 0.11 10^3/uL (0.0-0.06); Absolute Basophil Count 0.07 10^3/uL (0.0-0.2); Absolute Eosinophil Count 0.39 10^3/uL (0.0-0.7); Absolute Monocyte Count 1.31 10^3/uL (0.1-0.8); Basophils % 0.5; Eosinophils % 2.7; HCT 30.9 % (36.0-46.0); HGB 8.7 g/dL (11.2-15.7); Immature Grans % 0.8; Lymphocytes % 9.7; MCH 22.7 pg (27.0-33.0); MCHC 28.2 % (32.0-36.0); MCV 80.5 fL (80-95); Monocytes % 9.1; Neutrophils % 77.2; Nucleated RBC 0 %; Platelet Count 479 10^3/uL (130-400); RBC 3.84 10^6/uL (3.93-5.22); RDW 17.7 % (11.7-14.6); RDW-SD 51.2 fL; WBC 14.45 10^3/uL (4.4-10.8)
[2021-10-09 06:44] LABS: Absolute Neutrophil Count 11.16 10^3/uL (1.2-6.7); Anion Gap 5.4 mmol/L (3-11); BUN 64 mg/dL (7-18); CO2 35.6 mmol/L (21.0-32.0); CREATININE 2.2 mg/dL (0.55-1.02); Calcium 9.1 mg/dL (8.5-10.1); Chloride 96 mmol/L (98-107); Glucose 119 mg/dL (74-106); Potassium 3.1 mmol/L (3.5-5.1); Sodium 137 mmol/L (136-145)
[2021-10-09 07:02] VITALS: BP 105/59; PULSE 66; RESP 18; TEMP 36.9; O2SAT 97
[2021-10-09] MEDS: Umeclidinium 7 CAP INHALER 1 CAP IH (08:10)
[2021-10-09] MEDS: Insulin Glargine 300 UNITS/3 ML PEN 35 UNITS SC ×2 (08:26→20:05)
[2021-10-09] MEDS: Milk of Magnesia 30 ML CUP PO (08:27)
[2021-10-09] MEDS: Calcium 600mg/Vit D 200U TAB 1 TAB PO (08:28)
[2021-10-09] MEDS: Metoprolol CR 100 MG TABCR PO (08:28)
[2021-10-09] MEDS: DULoxetine 30 MG CAP 60 MG PO (08:28)
[2021-10-09] MEDS: Omeprazole 20 MG CAPCR 40 MG PO ×2 (08:28→19:55)
[2021-10-09] MEDS: Creon, Lipase 6,000 CAPCR 1 CAP PO ×3 (08:28→19:55)
[2021-10-09] MEDS: Docusate Sodium 100 MG CAP PO (08:28)
[2021-10-09] MEDS: Gabapentin 100 MG CAP PO ×3 (08:29→19:56)
[2021-10-09] MEDS: Allopurinol 100 MG TAB PO (08:29)
[2021-10-09] MEDS: Atorvastatin 40 MG TAB PO (08:29)
[2021-10-09] MEDS: Aspirin E.C. 81 MG TABEC PO (08:29)
[2021-10-09] MEDS: Torsemide 100 MG TAB PO (08:29)
[2021-10-09] MEDS: levETIRAcetam 500 MG TAB PO ×2 (08:29→19:56)
[2021-10-09] MEDS: Isosorbide Mononitrate 10 MG TAB PO ×2 (08:30→16:00)
[2021-10-09] MEDS: Potassium Chloride 20 MEQ TABCR PO ×2 (08:31→19:56)
[2021-10-09] MEDS: Nystatin POWDER 60 GM JAR TP ×2 (08:36→14:03)
[2021-10-09] MEDS: Magnesium Chloride 64 MG TABCR PO ×2 (09:31→21:52)
[2021-10-09] MEDS: Potassium Chloride 20 MEQ TABCR 40 MEQ PO ×2 (09:33→16:01)
[2021-10-09] MEDS: Enoxaparin 30 MG/0.3 ML SYR SC (10:15)
--- NOTE | 2021-10-09 11:11 | PT.INTREAT ---
PT Notes Visit Reasons: Bimalellolar FX of Right Ankle Inpatient Physical Therapy Treatment Note [facility] Date: 10/09/21 PRECAUTIONS: NWB R SUBJECTIVE: Bibi reports that she is ready to get out of this bed today. She c/o back discomfort. States that she has lost a whole day due to being so groggy yesterday. She woke quite early this am and reports doing exercises that are listed on her board in room without any difficulties. OBJECTIVE: [] PAIN: No pain. C/o stiffness in her back BED MOBILITY/TRANSFERS Rolling L/R:I Supine-sit: S/SBA of 1 with HOB at approx 45 degrees. Sit-stand: min of 2 Stand-sit: CGA of 2. Bed-Chair: pivot GAIT Assistive Device: FWW Weight bearing: NWB R Assist: CGA of 1 and min A of 1 Distance: pivot only Deviation: cues given for proper sequence THEREX: LE strength/ ROM. See flowsheet for details. ASSESSMENT: Very adamant about getting out of bed today. Nurse was encouraging it. Bibi tolerated session quite well. No c/o pain in right knee or ankle. Has good UE strength which made transfers relatively easy. She was resting comfortably, crocheting when I checked in with her approx 1.5 hours later. She states she was not ready to get into bed. PLAN: will continue to progress her global strength and functional mobility to her tolerance following WB restrictions. TREATMENT CODE/TIME: 30 min beginning at 0930. [id number], [id number].
--- NOTE | 2021-10-09 11:13 | PGE_ITS ---
Date of Service Date of service: 10/09/21 Time of Service: :45 Assessment and Plan Assessment and plan (1) Closed bimalleolar fracture of right ankle: Start date: 10/09/21 Start time: 10:45 Status: Acute Assessment and plan: s/p surgical repair POD #2 status post right trimalleolar ankle fracture ORIF with syndesmotic fixation. followed by orthopedics with following recommendations: Pain control-Multimodal Physical therapy ordered: Non-weightbearing right ankle x2 weeks followed by protected weightbearing (less than 50%) x4 weeks. No restrictions on the knee. May resume chemical DVT prophylaxis tomorrow assuming hemodynamically stable Discharge when medical appropriate Follow-up with Dr. Edouard outpatient [facility] in 2 to 3 weeks D/c gonzalez c/o spasms intermittently to ankle will order robaxin for this Qualifiers: Encounter type: initial encounter Qualified Code(s): S82.841A - Displaced bimalleolar fracture of right lower leg, initial encounter for closed fracture (2) Hypokalemia: Start date: 10/09/21 Start time: 10:45 Status: Acute Assessment and plan: 3.1 replete and follow will add 40 BID dosing as well as she continues to have continuously low potassium level (3) Medial meniscus tear: Start date: 10/09/21 Start time: 10:45 Status: Acute Assessment and plan: From previous fall, with occult fx to knee. no surgery required, as above Qualifiers: Tear current or old: current Encounter type: subsequent encounter Men iscus tear of knee type: unspecified type Laterality: right Qualified Code(s): S83.241D - Other tear of medial meniscus, current injury, right knee, subsequent encounter (4) Essential hypertension: Start date: 10/09/21 Start time: 10:45 Status: Chronic Assessment and plan: continue home medications (5) Diastolic CHF: Start date: 10/09/21 Start time: 10:45 Assessment and plan: as above daily wt, diuretics, patient appears to no longer be dry. Monitor volume status echo revealed Mild concentric left ventricular hypertrophy. Estimated ejection fraction is 60%. Wall motion is normal Normal right ventricular size and systolic function Both atria are normal in size Mildly sclerotic trileaflet aortic valve without stenosis or regurgitation Mild mitral annular calcification, trace mitral regurgitation Normal tricuspid valve with mild regurgitation. Estimated right ventricular systolic pressure is 37 mmHg Qualifiers: Heart failure chronicity: chronic Qualified Code(s): I50.32 - Chronic diastolic (congestive) heart failure (6) CAD (coronary artery disease), [place] coronary artery: Start date: 10/09/21 Start time: 10:45 Status: Chronic Assessment and plan: continue home medication, monitor daily wts and give doses of metalzaone as needed as patient easily goes into diasotlic HF Qualifiers: [place] vs. transplanted heart: [place] heart Associated angina: without angina Qualified Code(s): I25.10 - Atherosclerotic heart disease of [place] coronary artery without angina pectoris (7) Restless leg syndrome: Start date: 10/09/21 Start time: 10:45 Assessment and plan: Continue reopiriole (8) Seizure: Start date: 10/09/21 Start time: 10:45 Assessment and plan: continue keppra (9) Pulmonary hypertension: Start date: 10/09/21 Start time: 10:45 Assessment and plan: continue oxygen, diuretics, daily wts and monitoring fluid status (10) Palliative care patient: Start date: 10/09/21 Start time: 10:45 Assessment and plan: will follow she is seen by Dr. 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 Diabetes mellitus complication status: without complication Qualified Code(s): E11.9 - Type 2 diabetes mellitus without complications; Z79.4 - residential (current) use of insulin (12) Renal insufficiency: Start date: 10/09/21 Start time: 10:45 Status: Chronic Assessment and plan: At baseline conitnue to monitor (13) DVT prophylaxis: Start date: 10/09/21 Start time: 10:45 Status: Acute Assessment and plan: restarted enoxaparin based on surgical recommendation (14) Discharge planning issues: Start date: 10/09/21 Start time: 10:45 Status: Acute Assessment and plan: will need skilled rehab, declined by [facility] and rehab. will need PT has been accepted by [facility] hopefully for Monday discussed with Dr. Stranathan Subjective Subjective Patient reports: other Interval history since last seen: Bibi is sitting up in chair with foot of chair elevated. She does c/o intermittent spasms. She has IVF infusing. She does not appear dry and given her ability to easily go in to HF will d/c IVF. Per Silke note lisa was to be dcd POD 1. Will dc today. Otherwise robaxin for spasms and no other c/o Exam Const General: cooperative, comfortable and no acute distress Nutritional Appearance: obese Orientation: alert, awake and oriented x3 HENMT Head: normal to inspection Mouth: oral mucosae normal Eyes General: appearance normal, both eyes and all related structures Eyelids: eyelids normal Pupils: PERRL EOM: EOM intact bilaterally Neck Neck: normal visual inspection and no JVD Lymphatic: no lymphadenopathy noted Chest Chest: normal inspection of the chest Resp Effort & Inspection: normal respiratory effort and able to speak in complete sentences Auscultation: clear to auscultation bilaterally Cardio Jugular venous pressure: no JVD Rate: regular rate Rhythm: regular rhythm Heart Sounds: S1 normal and murmur GI Inspection: normal to inspection Palpation: soft Auscultation: normal bowel sounds Skin General skin exam: no rashes or lesions noted Neuro General: patient alert, patient awake and patient oriented x3 Cognition: normal cognition Speech: speech normal Gait: normal gait Extrem General: abnormal to inspection Right lower extremity: abnormal to inspection (surgical cast in place, good csmt's distally. ) and ROM limited Objective Last Vital Signs Temp 36.9 C 10/09/21 07:02 Pulse 66 10/09/21 07:02 Resp 18 10/09/21 07:02 BP 105/59 L 10/09/21 07:02 Pulse Ox 97 10/09/21 07:02 Laboratory Results - last 24 hr 10/08/21 10/09/21 10/09/21 22:10 06:20 06:20 WBC 14.45 H RBC 3.84 L Hgb 8.7 L Hct 30.9 L MCV 80.5 MCH 22.7 L MCHC 28.2 L RDW 17.7 H Plt Count 479 H MPV 10.0 Immature Gran % 0.8 Neutrophils % 77.2 Lymphocytes % 9.7 Monocytes % 9.1 Eosinophils % 2.7 Basophils % 0.5 Nucleated RBC % 0 Absolute Neutrophils 11.16 H Absolute Lymphocytes 1.40 Absolute Monocytes 1.31 H Absolute Eosinophils 0.39 Absolute Basophils 0.07 Sodium 137 Potassium 3.1 L Chloride 96 L Carbon Dioxide 35.6 H Anion Gap 5.4 BUN 64 H Creatinine 2.2 H Estimated GFR/1.73 m2 22.20 Glucose 119 H Calcium 9.1 Urine Color Yellow Urine Clarity Clear Urine pH 7.0 Ur Specific Simpson 1.015 Urine Protein Negative Urine Ketones Negative Urine Blood Trace-lysed H Urine Nitrite Negative Urine Bilirubin Negative Urine Urobilinogen 0.2 Ur Leukocyte Esterase Small H Urine RBC 10-20 H Urine WBC 20-50 H Ur Epithelial Cells Few Urine Crystals Negative Urine Bacteria Negative Urine Mucus Negative Urine Other Many Renal Ur Culture Indicated? C&S Done As Ordered Urine Glucose Negative
[2021-10-09] MEDS: Insulin Aspart 300 UNITS/3 ML PEN SC ×2 (11:49→17:13)
[2021-10-09] MEDS: Methocarbamol 750 MG TAB PO (14:04)
[2021-10-09 15:35] VITALS: BP 125/80; PULSE 79; RESP 19; TEMP 36.3; O2SAT 99
[2021-10-09] MEDS: traMADol 50 MG TAB PO (19:59)
[2021-10-09] MEDS: rOPINIRole 1 MG TAB 2 MG PO (20:05)
[2021-10-09 22:14] VITALS: BP 116/63; PULSE 69; RESP 16; TEMP 36.7; O2SAT 96
[2021-10-10 06:03] LABS: Absolute Basophil Count 0.09 10^3/uL (0.0-0.2); Absolute Eosinophil Count 0.62 10^3/uL (0.0-0.7); Absolute Lymphocyte Count 1.46 10^3/uL (1.2-3.4); Absolute Monocyte Count 1.16 10^3/uL (0.1-0.8); Basophils % 0.7; Eosinophils % 4.6; HCT 29.5 % (36.0-46.0); HGB 8.4 g/dL (11.2-15.7); Immature Grans % 0.7; Lymphocytes % 10.8; MCH 22.7 pg (27.0-33.0); MCHC 28.5 % (32.0-36.0); MCV 79.7 fL (80-95); MPV 10.6 fL (8.0-11.0); Monocytes % 8.6; Neutrophils % 74.6; Nucleated RBC 0 %; Platelet Count 457 10^3/uL (130-400); RDW 17.6 % (11.7-14.6); RDW-SD 50.9 fL; WBC 13.48 10^3/uL (4.4-10.8)
[2021-10-10 06:05] LABS: Absolute Neutrophil Count 10.06 10^3/uL (1.2-6.7)
[2021-10-10 06:14] LABS: Anion Gap 5.2 mmol/L (3-11); BUN 66 mg/dL (7-18); CO2 33.8 mmol/L (21.0-32.0); CREATININE 2.1 mg/dL (0.55-1.02); Calcium 9.1 mg/dL (8.5-10.1); Chloride 97 mmol/L (98-107); Estimated GFR 23.42 (mL/min/1.73m2); Glucose 119 mg/dL (74-106); Magnesium 2.3 mg/dL (1.8-2.4); Potassium 3.6 mmol/L (3.5-5.1); Sodium 136 mmol/L (136-145)
[2021-10-10 06:44] VITALS: BP 100/59; PULSE 63; RESP 18; TEMP 36.4; O2SAT 97
[2021-10-10] MEDS: Umeclidinium 7 CAP INHALER 1 CAP IH (08:05)
[2021-10-10] MEDS: Torsemide 100 MG TAB PO (08:27)
[2021-10-10] MEDS: Omeprazole 20 MG CAPCR 40 MG PO ×2 (08:28→21:37)
[2021-10-10] MEDS: Potassium Chloride 20 MEQ TABCR 40 MEQ PO ×2 (08:28→21:35)
[2021-10-10] MEDS: Gabapentin 100 MG CAP PO ×3 (08:28→21:39)
[2021-10-10] MEDS: Allopurinol 100 MG TAB PO (08:28)
[2021-10-10] MEDS: DULoxetine 30 MG CAP 60 MG PO (08:28)
[2021-10-10] MEDS: Atorvastatin 40 MG TAB PO (08:28)
[2021-10-10] MEDS: Isosorbide Mononitrate 10 MG TAB PO ×2 (08:28→14:12)
[2021-10-10] MEDS: Aspirin E.C. 81 MG TABEC PO (08:29)
[2021-10-10] MEDS: Metoprolol CR 100 MG TABCR PO (08:29)
[2021-10-10] MEDS: Nystatin POWDER 60 GM JAR TP ×3 (08:29→21:42)
[2021-10-10] MEDS: Insulin Glargine 300 UNITS/3 ML PEN 35 UNITS SC ×2 (08:33→21:39)
[2021-10-10] MEDS: Creon, Lipase 6,000 CAPCR 1 CAP PO ×3 (09:10→21:38)
[2021-10-10] MEDS: levETIRAcetam 500 MG TAB PO ×2 (09:10→21:39)
[2021-10-10] MEDS: Magnesium Chloride 64 MG TABCR PO ×2 (11:20→21:39)
[2021-10-10] MEDS: Enoxaparin 30 MG/0.3 ML SYR SC (11:20)
--- NOTE | 2021-10-10 12:11 | PGE_ITS ---
Date of Service Date of service: 10/10/21 Time of Service: 12:11 Assessment and Plan Assessment and plan (1) Closed bimalleolar fracture of right ankle: Start date: 10/10/21 Start time: 12:14 Status: Acute Assessment and plan: s/p surgical repair POD #3 status post right trimalleolar ankle fracture ORIF with syndesmotic fixation. followed by orthopedics with following recommendations: Pain control-Multimodal Physical therapy ordered: Non-weightbearing right ankle x2 weeks followed by protected weightbearing (less than 50%) x4 weeks. No restrictions on the knee. Awaiting a bed at the [facility] hopefully this week Follow-up with Dr. Edouard outpatient [facility] in 2 to 3 weeks c/o spasms intermittently to ankle still increased robaxin Qualifiers: Encounter type: initial encounter Qualified Code(s): S82.841A - Displaced bimalleolar fracture of right lower leg, initial encounter for closed fracture (2) Hypokalemia: Start date: 10/10/21 Start time: 12:15 Status: Resolved Assessment and plan: 3.6 on potassium 40 meq BID. Continue to monitor level (3) Medial meniscus tear: Start date: 10/10/21 Start time: 12:16 Status: Acute Assessment and plan: From previous fall, with occult fx to knee. no surgery required, as above Qualifiers: Encounter type: subsequent encounter Laterality: right Meniscus tear of knee type: unspecified type Tear current or old: current Qualified Code(s): S83.241D - Other tear of medial meniscus, current injury, right knee, subsequent encounter (4) Essential hypertension: Start date: 10/10/21 Start time: 12:16 Status: Chronic Assessment and plan: continue home medications (5) Diastolic CHF: Start date: 10/10/21 Start time: 12:16 Assessment and plan: as above daily wt, diuretics, patient appears to no longer be dry. Monitor volume status Qualifiers: Heart failure chronicity: chronic Qualified Code(s): I50.32 - Chronic diastolic (congestive) heart failure (6) CAD (coronary artery disease), [place] coronary artery: Start date: 10/10/21 Start time: 12:17 Status: Chronic Assessment and plan: continue home medication, as above Qualifiers: Associated angina: without angina [place] vs. transplanted heart: [place] heart Qualified Code(s): I25.10 - Atherosclerotic heart disease of [place] coronary artery without angina pectoris (7) Restless leg syndrome: Start date: 10/10/21 Start time: 12:17 Assessment and plan: Continue reopiriole will make a josh medication (8) Seizure: Start date: 10/10/21 Start time: 12:17 Assessment and plan: continue keppra (9) Pulmonary hypertension: Start date: 10/10/21 Start time: 12:17 Assessment and plan: continue oxygen, diuretics, daily wts and monitoring fluid status (10) Palliative care patient: Start date: 10/10/21 Start time: 12:17 Assessment and plan: will follow she is seen by Dr. 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 will need PT has been accepted by [facility] hopefully for Monday discussed with Dr. Caban Subjective Subjective Patient reports: other Interval history since last seen: Bibi is sitting up in the chair, she appears depressed, she is tired of being here. She states her pain is improved the pain medicine helps she still has spasms once in a while. She did not sleep well last night. We can trial ambien while she is here for sleep. Otherwise she does not appear dry she is waiting for a bed at the [facility]. Exam Const General: cooperative, comfortable, no acute distress and anxious Nutritional Appearance: obese Orientation: alert, awake and oriented x3 HENMT Head: normal to inspection Mouth: oral mucosae normal and mucous membranes dry Eyes General: appearance normal, both eyes and all related structures Eyelids: eyelids normal Pupils: PERRL EOM: EOM intact bilaterally Neck Neck: normal visual inspection and no JVD Lymphatic: no lymphadenopathy noted Chest Chest: normal inspection of the chest Resp Effort & Inspection: normal respiratory effort and able to speak in complete sentences Auscultation: clear to auscultation bilaterally and diminished lung sounds Cardio Jugular venous pressure: no JVD Rate: regular rate Rhythm: regular rhythm Heart Sounds: S1 normal and murmur GI Inspection: normal to inspection Palpation: soft Auscultation: normal bowel sounds General: No CVA tenderness and deferred Skin General skin exam: no rashes or lesions noted Neuro General: patient alert, patient awake and patient oriented x3 Cognition: normal cognition Speech: speech normal Gait: normal gait Extrem General: abnormal to inspection Right lower extremity: abnormal to inspection (surgical cast in place, good csmt's distally. ) and ROM limited Objective Last Vital Signs Temp 36.4 C L 10/10/21 06:44 Pulse 63 10/10/21 06:44 Resp 18 10/10/21 06:44 BP 100/59 L 10/10/21 06:44 Pulse Ox 97 10/10/21 06:44 Laboratory Results - last 24 hr 10/10/21 10/10/21 05:35 05:35 WBC 13.48 H RBC 3.70 L Hgb 8.4 L Hct 29.5 L MCV 79.7 L MCH 22.7 L MCHC 28.5 L RDW 17.6 H Plt Count 457 H MPV 10.6 Immature Gran % 0.7 Neutrophils % 74.6 Lymphocytes % 10.8 Monocytes % 8.6 Eosinophils % 4.6 Basophils % 0.7 Nucleated RBC % 0 Absolute Neutrophils 10.06 H Absolute Lymphocytes 1.46 Absolute Monocytes 1.16 H Absolute Eosinophils 0.62 Absolute Basophils 0.09 Sodium 136 Potassium 3.6 Chloride 97 L Carbon Dioxide 33.8 H Anion Gap 5.2 BUN 66 H Creatinine 2.1 H Estimated GFR/1.73 m2 23.42 Glucose 119 H Calcium 9.1 Magnesium 2.3
--- NOTE | 2021-10-10 12:24 | PT.INTREAT ---
PT Notes Visit Reasons: Bimalellolar FX of Right Ankle Inpatient Physical Therapy Treatment Note [facility] Date: 10/10/21 PRECAUTIONS: NWB right SUBJECTIVE: Bibi reports that she sat too long yesterday and needed to use lift to get back into bed. She reports that she would like to get back up but wants to wait until closer to lunch. She requests use of crutches vs RW as she feels unsteady. OBJECTIVE: [] BED MOBILITY/TRANSFERS Rolling L/R: I THEREX: performed a global LE strengthening routine while supine. See flowsheet for details. ASSESSMENT: tolerated ex well. I fully intended on getting her OOB closer to lunch, however her nurse got to her before I did and was able to transfer her bed to chair using pivot. No pain complaints during bed ex. PLAN: will continue to progress following POC. May trial crutches tomorrow. TREATMENT CODE/TIME: 15 min [id number].
[2021-10-10] MEDS: Methocarbamol 750 MG TAB 1500 MG PO (15:14)
[2021-10-10] MEDS: Milk of Magnesia 30 ML CUP PO (15:14)
[2021-10-10] MEDS: Docusate Sodium 100 MG CAP PO (15:14)
[2021-10-10 15:35] VITALS: BP 119/66; PULSE 69; RESP 18; TEMP 36.4; O2SAT 98
[2021-10-10] MEDS: Insulin Aspart 300 UNITS/3 ML PEN SC (17:19)
[2021-10-10] MEDS: rOPINIRole 1 MG TAB 2 MG PO (21:34)
[2021-10-10] MEDS: Zolpidem 5 MG TAB PO (21:39)
[2021-10-10 23:27] VITALS: BP 115/68; PULSE 65; RESP 16; TEMP 36.6; O2SAT 97
[2021-10-11 07:26] LABS: Anion Gap 7.7 mmol/L (3-11); BUN 68 mg/dL (7-18); CO2 33.3 mmol/L (21.0-32.0); CREATININE 2.2 mg/dL (0.55-1.02); Calcium 9.2 mg/dL (8.5-10.1); Chloride 96 mmol/L (98-107); Glucose 110 mg/dL (74-106); Sodium 137 mmol/L (136-145)
[2021-10-11 07:35] VITALS: BP 107/61; PULSE 63; RESP 18; TEMP 36.5; O2SAT 98
[2021-10-11] MEDS: Milk of Magnesia 30 ML CUP PO (07:52)
[2021-10-11] MEDS: Nystatin POWDER 60 GM JAR TP ×3 (07:52→19:51)
[2021-10-11] MEDS: Polyethylene Glycol 3350 17 GM PACKET PO (07:52)
[2021-10-11] MEDS: Creon, Lipase 6,000 CAPCR 1 CAP PO ×3 (07:53→19:48)
[2021-10-11] MEDS: Normal Saline Flush 10 ML SYR IVP ×2 (07:53→16:01)
[2021-10-11] MEDS: Docusate Sodium 100 MG CAP PO (07:53)
[2021-10-11] MEDS: Atorvastatin 40 MG TAB PO (07:53)
[2021-10-11] MEDS: Omeprazole 20 MG CAPCR 40 MG PO ×2 (07:54→19:49)
[2021-10-11] MEDS: Isosorbide Mononitrate 10 MG TAB PO ×2 (07:54→15:21)
[2021-10-11] MEDS: Torsemide 100 MG TAB PO (07:54)
[2021-10-11] MEDS: Potassium Chloride 20 MEQ TABCR 40 MEQ PO ×2 (07:54→19:49)
[2021-10-11] MEDS: DULoxetine 30 MG CAP 60 MG PO (07:54)
[2021-10-11] MEDS: Metoprolol CR 100 MG TABCR PO (07:54)
[2021-10-11] MEDS: Allopurinol 100 MG TAB PO (07:55)
[2021-10-11] MEDS: Aspirin E.C. 81 MG TABEC PO (07:55)
[2021-10-11] MEDS: levETIRAcetam 500 MG TAB PO ×2 (07:55→19:49)
[2021-10-11] MEDS: Gabapentin 100 MG CAP PO ×3 (07:55→19:49)
--- NOTE | 2021-10-11 08:38 | PCPN_ITS ---
Date of service: 10/11/21 Time of Service: 08:38 Assessment and Plan Assessment and plan (1) Closed bimalleolar fracture of right ankle: Status: Acute Assessment and plan: Bibi is feeling less discomfort and spasm in her right ankle. She was proud of herself for up walking about 10 steps with help. She does have follow-up with Dr. Edouard. She will continue with physical therapy. Pain is well controlled Qualifiers: Encounter type: initial encounter Qualified Code(s): S82.841A - Displaced bimalleolar fracture of right lower leg, initial encounter for closed fracture (2) Renal insufficiency: Status: Chronic Assessment and plan: Her CHF and pulmonary hypertension has always been difficult due to her renal insufficiency from diuretics. Today she is speaking in complete sentences she does not have any shortness of breath and her lung exam looks good. She did state that she is down to 269 pounds. 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 Her pain is well controlled. Disposition plans are set and she plans to be transferred to the [facility] later this week. I will continue to follow her outpatient. Subjective Subjective Interval history since last seen: Megan is in a good mood today. She is making an [place]. She is anxious to get to the [facility] where she has a relative that who works there. She feels that her pain is well controlled. Overall she feels her breathing is doing well. Exam Narrative Exam Narrative: Bibi is sitting in the hospital bed. She is enthusiastic about going to the [facility]. She said when talking about her dog. Const General: comfortable Nutritional Appearance: obese Orientation: oriented x3 Eyes General: appearance normal, both eyes and all related structures Resp Effort & Inspection: normal respiratory effort and able to speak in complete sentences Auscultation: clear to auscultation bilaterally Cardio Rate: regular rate Rhythm: regular rhythm Heart Sounds: murmur GI Palpation: soft and no hepatosplenomegaly Extrem Other: She has a brace and bandage on the right ankle. I did not take this down to look at it. Right patella there is some edema and a healing bruise. Objective Last Vital Signs Temp 97.9 F 10/10/21 23:27 Pulse 65 10/10/21 23:27 Resp 16 10/10/21 23:27 BP 115/68 10/10/21 23:27 Pulse Ox 97 10/10/21 23:27 Laboratory Results - last 24 hr 10/11/21 06:00 Sodium 137 Potassium 4.0 Chloride 96 L Carbon Dioxide 33.3 H Anion Gap 7.7 BUN 68 H Creatinine 2.2 H Estimated GFR/1.73 m2 22.20 Glucose 110 H Calcium 9.2
[2021-10-11] MEDS: Insulin Glargine 300 UNITS/3 ML PEN 35 UNITS SC ×2 (08:41→21:21)
[2021-10-11] MEDS: Umeclidinium 7 CAP INHALER 1 CAP IH (08:45)
[2021-10-11] MEDS: Enoxaparin 30 MG/0.3 ML SYR SC (11:17)
[2021-10-11] MEDS: Magnesium Chloride 64 MG TABCR PO ×2 (11:17→21:20)
[2021-10-11] MEDS: Bisacodyl 10 MG SUPP PR (11:39)
[2021-10-11] MEDS: Insulin Aspart 300 UNITS/3 ML PEN SC (11:54)
--- NOTE | 2021-10-11 14:35 | PT.INTREAT ---
Date of service: 10/11/21 Time of Service: 13:58 PT Notes Visit Reasons: Bimalellolar FX of Right Ankle Inpatient Physical Therapy Treatment Note [facility] Date: 10/11/2021 PRECAUTIONS: Fall, activity as tolerated, NWB R LE SUBJECTIVE: Bibi is pleasant and agreeable to participating in PT. She declines transfer training stating I just got here regarding sitting up in her chair. She reports that her transfers are going well. She reports that she has not had any pain today and is feeling much better. OBJECTIVE: PAIN: No c/o pain BED MOBILITY/TRANSFERS/GAIT: Declined THEREX: Patient was instructed in a LE strengthening and stabilization program, completed in both seated and long-sitting positions. ASSESSMENT: Patient tolerated session without complaint. She was able to complete exercises without pain, although with some difficulty on R LE due to added weight of cast. PLAN: Continue with LE strengthening and transfer training for improved mobility and safety. Recommend placement at SNF for continued rehab. TREATMENT CODE/TIME: 12 minutes; [id number] (13:58)
[2021-10-11 15:23] VITALS: BP 115/72; PULSE 74; RESP 18; TEMP 36.4; O2SAT 99
[2021-10-11] MEDS: Methocarbamol 750 MG TAB 1500 MG PO ×2 (16:00→19:48)
--- NOTE | 2021-10-11 17:26 | W.PM.PROGNOT ---
Date of Service Date of service: 10/11/21 Time of Service: 17:26 Assessment and Plan Assessment and plan (1) Closed bimalleolar fracture of right ankle: Start date: 10/11/21 Start time: 17:28 Status: Acute Assessment and plan: s/p surgical repair POD #4 status post right trimalleolar ankle fracture ORIF with syndesmotic fixation. followed by orthopedics with following recommendations: Pain control-Multimodal Physical therapy ordered: Non-weightbearing right ankle x2 weeks followed by protected weightbearing (less than 50%) x4 weeks. No restrictions on the knee. Awaiting a bed at the [facility] hopefully this week Follow-up with Dr. Edouard outpatient [facility] in 2 to 3 weeks c/o spasms intermittently to ankle still increased robaxin Qualifiers: Encounter type: initial encounter Qualified Code(s): S82.841A - Displaced bimalleolar fracture of right lower leg, initial encounter for closed fracture (2) Hypokalemia: Start date: 10/11/21 Start time: 17:29 Status: Resolved Assessment and plan: 4.0 on potassium 40 meq BID. Continue to monitor level (3) Medial meniscus tear: Start date: 10/11/21 Start time: 17:29 Status: Acute Assessment and plan: From previous fall, with occult fx to knee. no surgery required, as above Qualifiers: Tear current or old: current Encounter type: subsequent encounter Meniscus tear of knee type: unspecified type Laterality: right Qualified Code(s): S83.241D - Other tear of medial meniscus, current injury, right knee, subsequent encounter (4) Essential hypertension: Start date: 10/11/21 Start time: 17:29 Status: Chronic Assessment and plan: continue home medications (5) Diastolic CHF: Start date: 10/11/21 Start time: 17:29 Assessment and plan: as above daily wt, diuretics, patient appears to no longer be dry. Monitor volume status Qualifiers: Heart failure chronicity: chronic Qualified Code(s): I50.32 - Chronic diastolic (congestive) heart failure (6) CAD (coronary artery disease), [place] coronary artery: Start date: 10/11/21 Start time: 17:30 Status: Chronic Assessment and plan: continue home medication, as above Qualifiers: [place] vs. transplanted heart: [place] heart Associated angina: without angina Qualified Code(s): I25.10 - Atherosclerotic heart disease of [place] coronary artery without angina pectoris (7) Restless leg syndrome: Start date: 10/11/21 Start time: 17:30 Assessment and plan: Continue reopiriole will make a josh medication (8) Seizure: Start date: 10/11/21 Start time: 17:30 Assessment and plan: continue keppra (9) Pulmonary hypertension: Start date: 10/11/21 Start time: 17:30 Assessment and plan: continue oxygen, diuretics, daily wts and monitoring fluid status (10) Palliative care patient: Start date: 10/11/21 Start time: 17:30 Assessment and plan: will follow she is seen by Dr. 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 will need PT has been accepted by [facility] hopefully this week discussed with Dr. Caban Subjective Subjective Patient reports: other Interval history since last seen: Patient sitting up in chair. She has not had Bm in several days. Suppository given. Otherwise no change. Awaiting a bed at [facility]. Exam Const General: cooperative, comfortable, no acute distress, anxious and other (severe pain to RLE) Nutritional Appearance: obese Orientation: alert, awake and oriented x3 HENMT Head: normal to inspection Mouth: oral mucosae normal and mucous membranes dry Eyes General: appearance normal, both eyes and all related structures Eyelids: eyelids normal Pupils: PERRL EOM: EOM intact bilaterally Neck Neck: normal visual inspection and no JVD Lymphatic: no lymphadenopathy noted Chest Chest: normal inspection of the chest Resp Effort & Inspection: normal respiratory effort and able to speak in complete sentences Auscultation: clear to auscultation bilaterally and diminished lung sounds Cardio Jugular venous pressure: no JVD Rate: regular rate Rhythm: regular rhythm Heart Sounds: S1 normal and murmur GI Inspection: normal to inspection Palpation: soft Auscultation: normal bowel sounds General: No CVA tenderness and deferred Skin General skin exam: no rashes or lesions noted Neuro General: patient alert, patient awake and patient oriented x3 Cognition: normal cognition Speech: speech normal Gait: normal gait Extrem General: abnormal to inspection and other (RLE wrapped in celeste wraps cap refill normal CMST +) Right lower extremity: abnormal to inspection (surgical cast in place, good csmt's distally. ) and ROM limited Objective Last Vital Signs Temp 36.4 C L 10/11/21 15:23 Pulse 74 10/11/21 15:23 Resp 18 10/11/21 15:23 BP 115/72 10/11/21 15:23 Pulse Ox 99 10/11/21 15:23 Laboratory Results - last 24 hr 10/11/21 06:00 Sodium 137 Potassium 4.0 Chloride 96 L Carbon Dioxide 33.3 H Anion Gap 7.7 BUN 68 H Creatinine 2.2 H Estimated GFR/1.73 m2 22.20 Glucose 110 H Calcium 9.2
--- NOTE | 2021-10-11 17:56 | PDOC.CMPRO ---
- If Service Date Differs Date of service: 10/11/21 Time of Service: 17:56 Care Management Progress Note S/O: Bibi was sitting up in bed when CM met with her. She reported that she is feeling much better, and is starting to be able to walk more (from her commode to bed) with one assist, which she was very proud of. She stated that the hardest part of being inpatient has been the lack of visitors. She has been crocheting daily, and watches TV, but is looking forward to more interaction at the rehab facility. CM provided her with an adult coloring book and word search, which she appreciated. CM called admissions at the [facility], who stated that they are close to opening, but have not officially opened to admission as of today. CM will call tomorrow to determine if they are open to admission; if so, Bibi will likely discharge and transport via RCT w/c van. CM will continue to follow. A: Ann-Marie is a 70 year old female admitted to [facility] on 10/03/21 for R Ankle fx. P: Anticipate Bibi will go to SNF post surgically, once she is medically cleared. CM sent referrals to [facility] and the [facility] for review. [facility] declined and [facility] is not accepting admissions at this time. She will transport via w/c van vs EMS, depending on mobility at time of discharge. She will follow up with her PCP and discharge plan of care. CM will continue to follow.
[2021-10-11] MEDS: rOPINIRole 1 MG TAB 2 MG PO (21:20)
[2021-10-11] MEDS: Zolpidem 5 MG TAB PO (21:20)
[2021-10-11 23:36] VITALS: BP 116/74; PULSE 72; RESP 18; TEMP 36.5; O2SAT 98
[2021-10-12 07:01] LABS: Absolute Basophil Count 0.09 10^3/uL (0.0-0.2); Absolute Monocyte Count 1.13 10^3/uL (0.1-0.8); Basophils % 0.7; Eosinophils % 5.6; HCT 29.8 % (36.0-46.0); HGB 8.4 g/dL (11.2-15.7); Immature Grans % 0.8; Lymphocytes % 12.3; MCH 22.9 pg (27.0-33.0); MCHC 28.2 % (32.0-36.0); MCV 81.2 fL (80-95); Monocytes % 8.6; Nucleated RBC 0 %; Platelet Count 521 10^3/uL (130-400); RBC 3.67 10^6/uL (3.93-5.22); RDW 17.9 % (11.7-14.6); RDW-SD 52.6 fL; WBC 13.13 10^3/uL (4.4-10.8)
[2021-10-12 07:03] VITALS: BP 100/58; PULSE 56; RESP 19; TEMP 36.3; O2SAT 98
[2021-10-12 07:06] LABS: Absolute Eosinophil Count 0.74 10^3/uL (0.0-0.7); Absolute Lymphocyte Count 1.61 10^3/uL (1.2-3.4); Absolute Neutrophil Count 9.45 10^3/uL (1.2-6.7)
[2021-10-12 07:13] LABS: Anion Gap 6.2 mmol/L (3-11); BUN 69 mg/dL (7-18); CO2 33.8 mmol/L (21.0-32.0); CREATININE 2.1 mg/dL (0.55-1.02); Calcium 9.1 mg/dL (8.5-10.1); Chloride 99 mmol/L (98-107); Estimated GFR 23.42 (mL/min/1.73m2); Glucose 99 mg/dL (74-106); Potassium 4.1 mmol/L (3.5-5.1); Sodium 139 mmol/L (136-145)
[2021-10-12 07:46] VITALS: BP 99/62; PULSE 60; RESP 18; TEMP 36.5; O2SAT 97
[2021-10-12] MEDS: Insulin Glargine 300 UNITS/3 ML PEN 35 UNITS SC ×2 (08:24→21:20)
[2021-10-12] MEDS: Torsemide 100 MG TAB PO (08:28)
[2021-10-12] MEDS: Allopurinol 100 MG TAB PO (08:28)
[2021-10-12] MEDS: Aspirin E.C. 81 MG TABEC PO (08:29)
[2021-10-12] MEDS: levETIRAcetam 500 MG TAB PO ×2 (08:29→21:10)
[2021-10-12] MEDS: Omeprazole 20 MG CAPCR 40 MG PO ×2 (08:29→21:10)
[2021-10-12] MEDS: DULoxetine 30 MG CAP 60 MG PO (08:29)
[2021-10-12] MEDS: Atorvastatin 40 MG TAB PO (08:30)
[2021-10-12] MEDS: Potassium Chloride 20 MEQ TABCR 40 MEQ PO ×2 (08:30→21:09)
[2021-10-12] MEDS: Gabapentin 100 MG CAP PO ×3 (08:30→21:09)
[2021-10-12] MEDS: Nystatin POWDER 60 GM JAR TP ×2 (08:31→13:55)
[2021-10-12] MEDS: Creon, Lipase 6,000 CAPCR 1 CAP PO ×3 (08:31→21:10)
[2021-10-12] MEDS: Normal Saline Flush 10 ML SYR IVP (09:02)
--- NOTE | 2021-10-12 09:40 | CMPROGNOTE_ITS ---
- If Service Date Differs Date of service: 10/12/21 Time of Service: 09:40 Care Management Progress Note S/O: Bibi was sitting up in a chair when CM met with her. She was in good spirits and interacted well with CM. Bibi was informed that [facility] is still closed to admissions, likely until the end of next week. Bibi appeared disappointed and verbalized this. She remains unwilling to go to any other SNF so she will be transitioned into [facility] tomorrow. Bibi continues to work with PT and her paain is well controlled. A: Ann-Marie is a 70 year old female admitted to [facility] on 10/03/21 for R Ankle fx. P: Anticipate Bibi will go to SNF post surgically, once she is medically cleared. CM [facility]errals [facility] and [facility] for review. [facility] and [facility] is not accepting admissions at this time. She will transport via w/c van vs EMS, depending on mobility at time of discharge. She will follow up with her PCP and discharge plan of care. CM will continue to follow.
--- NOTE | 2021-10-12 09:54 | PGE_ITS ---
Date of Service Date of service: 10/12/21 Time of Service: 08:30 Assessment and Plan Assessment and plan (1) Closed bimalleolar fracture of right ankle: Start date: 10/12/21 Start time: 08:30 Status: Acute Assessment and plan: s/p surgical repair POD #5 status post right trimalleolar ankle fracture ORIF with syndesmotic fixation. Pain control-Multimodald oing well, no pain Physical therapy ordered: Non-weightbearing right ankle x2 weeks followed by protected weightbearing (less than 50%) x4 weeks. No restrictions on the knee. Follow-up with Dr. Edouard outpatient [facility] in 2 to 3 weeks c/o spasms intermittently to ankle Robaxin has been helpfully. Patient is going [facility]. She will not be able to go to the [facility] until next week. Therefore she will have to go into SB status until then Qualifiers: Encounter type: initial encounter Qualified Code(s): S82.841A - Displaced bimalleolar fracture of right lower leg, initial encounter for closed fracture (2) Medial meniscus tear: Start date: 10/12/21 Status: Acute Assessment and plan: From previous fall, with occult fx to knee. no surgery required, as above Qualifiers: Tear current or old: current Encounter type: subsequent encounter Meniscus tear of knee type: unspecified type Laterality: right Qualified Code(s): S83.241D - Other tear of medial meniscus, current injury, right knee, subsequent encounter (3) Hypokalemia: Start date: 10/12/21 Start time: 08:30 Status: Resolved Assessment and plan: continue 40 meq BID. and monitor (4) Essential hypertension: Start date: 10/12/21 Start time: 08:30 Status: Chronic Assessment and plan: continue home medications (5) Diastolic CHF: Start date: 10/12/21 Start time: 08:30 Assessment and plan: as above daily wt, diuretics,patients volume status looks balanced. She appears to be balanced. WT 122 average wt Qualifiers: Heart failure chronicity: chronic Qualified Code(s): I50.32 - Chronic diastolic (congestive) heart failure (6) CAD (coronary artery disease), [place] coronary artery: Start date: 10/12/21 Start time: 08:30 Status: Chronic Assessment and plan: continue home medication, as above Qualifiers: [place] vs. transplanted heart: [place] heart Associated angina: without angina Qualified Code(s): I25.10 - Atherosclerotic heart disease of [place] coronary artery without angina pectoris (7) Restless leg syndrome: Start date: 10/12/21 Start time: 08:30 Assessment and plan: Continue reopiriole will make a josh medication (8) Seizure: Start date: 10/12/21 Start time: 08:30 Assessment and plan: continue keppra no seizures since admission (9) Pulmonary hypertension: Start date: 10/12/21 Start time: 08:30 Assessment and plan: continue oxygen, diuretics, daily wts and monitoring fluid status (10) Palliative care patient: Start date: 10/12/21 Start time: 08:30 Assessment and plan: will follow she is seen by Dr. sinclair as eduardotient (11) Diabetes mellitus: Start date: 10/12/21 Start time: 08:30 Status: Chronic Assessment and plan: monitor and treat accordingly Varies, highest is 202 Qualifiers: Diabetes mellitus type: type 2 Diabetes mellitus superintendent terminal insulin use: with long-term use Diabetes mellitus complication status: without complication Qualified Code(s): E11.9 - Type 2 diabetes mellitus without complications; Z79.4 - long term care pharmacist (current) use of insulin (12) Renal insufficiency: Start date: 10/12/21 Start time: 08:30 Status: Chronic Assessment and plan: At baseline continue to monitor (13) DVT prophylaxis: Start date: 10/12/21 Start time: 08:30 Status: Acute Assessment and plan: enoxaparin (14) Discharge planning issues: Start time: 08:30 Status: Acute Assessment and plan: will need skilled rehab, declined by [facility] and rehab. will need PT has been accepted by [facility] hopefully this week discussed with Dr. Caban Subjective Subjective Patient reports: no new complaints Interval history since last seen: She looks good. Appears to be in good volume status. no new complaints, large BM yesterday. Exam Const General: cooperative, comfortable and no acute distress Nutritional Appearance: obese Orientation: alert, awake and oriented x3 HENMT Head: normal to inspection, normocephalic and atraumatic Mouth: oral mucosae normal and moist mucous membranes Eyes General: appearance normal, both eyes and all related structures Eyelids: eyelids normal Pupils: PERRL EOM: EOM intact bilaterally Neck Neck: normal visual inspection and no JVD Lymphatic: no lymphadenopathy noted Chest Chest: normal inspection of the chest Resp Effort & Inspection: normal respiratory effort and able to speak in complete sentences Auscultation: clear to auscultation bilaterally and diminished lung sounds Cardio Jugular venous pressure: no JVD Rate: regular rate Rhythm: regular rhythm Heart Sounds: S1 normal and murmur GI Inspection: normal to inspection Palpation: soft Auscultation: normal bowel sounds Back/Spine/Pelvis Back: no CVA tenderness Cervical Spine: normal cervical lordosis Skin General skin exam: no rashes or lesions noted Neuro General: patient alert, patient awake and patient oriented x3 Cognition: normal cognition Speech: speech normal Gait: normal gait Extrem General: abnormal to inspection and other (RLE wrapped in celeste wraps cap refill normal CMST +) Right lower extremity: abnormal to inspection (surgical cast in place, good csmt's distally. ) and ROM limited Objective Last Vital Signs Temp 36.5 C 10/12/21 07:46 Pulse 60 10/12/21 07:46 Resp 18 10/12/21 07:46 BP 99/62 L 10/12/21 07:46 Pulse Ox 97 10/12/21 07:46 Laboratory Results - last 24 hr 10/12/21 10/12/21 06:10 06:10 WBC 13.13 H RBC 3.67 L Hgb 8.4 L Hct 29.8 L MCV 81.2 MCH 22.9 L MCHC 28.2 L RDW 17.9 H Plt Count 521 H MPV 10.0 Immature Gran % 0.8 Neutrophils % 72.0 Lymphocytes % 12.3 Monocytes % 8.6 Eosinophils % 5.6 Basophils % 0.7 Nucleated RBC % 0 Absolute Neutrophils 9.45 H Absolute Lymphocytes 1.61 Absolute Monocytes 1.13 H Absolute Eosinophils 0.74 H Absolute Basophils 0.09 Sodium 139 Potassium 4.1 Chloride 99 Carbon Dioxide 33.8 H Anion Gap 6.2 BUN 69 H Creatinine 2.1 H Estimated GFR/1.73 m2 23.42 Glucose 99 Calcium 9.1
[2021-10-12 10:03] VITALS: BP 117/67; PULSE 73; O2SAT 97
[2021-10-12] MEDS: Umeclidinium 7 CAP INHALER 1 CAP IH (10:05)
[2021-10-12] MEDS: Enoxaparin 30 MG/0.3 ML SYR SC (10:31)
[2021-10-12] MEDS: Metoprolol CR 100 MG TABCR PO (10:36)
[2021-10-12] MEDS: Isosorbide Mononitrate 10 MG TAB PO ×2 (10:36→17:50)
[2021-10-12] MEDS: Magnesium Chloride 64 MG TABCR PO ×2 (10:36→21:10)
[2021-10-12] MEDS: Insulin Aspart 300 UNITS/3 ML PEN SC ×2 (11:28→16:52)
--- NOTE | 2021-10-12 13:11 | PT.INTREAT ---
Date of service: 10/12/21 Time of Service: 12:50 PT Notes Visit Reasons: Bimalellolar FX of Right Ankle Inpatient Physical Therapy Treatment Note [facility] Date: 10/12/2021 PRECAUTIONS: Fall, NWB R LE SUBJECTIVE: Bibi states that she has been transferring well with FWW. She is pleasant and agreeable to participating in PT. OBJECTIVE: PAIN: No c/o pain BED MOBILITY/TRANSFERS Sit-stand: I Stand-sit: I GAIT Assistive Device: FWW Weight bearing: NWB R LE Assist: S Distance: ~5 steps to L + ~5 steps to R THEREX: Patient completed several LE strengthening and stabilization exercises, completed in a long-sitting position, as per flow sheet. TOILETING: Patient toileted with assist. ASSESSMENT: Patient demonstrates appropriate weight bearing on R LE using FWW for transfers. She is able to complete short-distance transfers with supervision only. PLAN: Continue with LE strengthening and stabilization, as well as continued transfer training. TREATMENT CODE/TIME: 15 minutes; [id number] (12:50)
[2021-10-12 15:20] VITALS: BP 116/69; PULSE 68; RESP 18; TEMP 37.1; O2SAT 95
--- NOTE | 2021-10-12 16:22 | CHAPLAIN ---
Bibi was in her chair crocheting when I visited. She was disappointed to hear [facility] not [facility] able to accept her until the end of next week. She said there is an option of going to [facility], although [facility] notes say she wasn't accepted there. Bibi really missed her dog and hopes whatever SNF she goes to will allow Candy to visit.
[2021-10-12] MEDS: Methocarbamol 750 MG TAB 1500 MG PO ×2 (16:52→21:11)
[2021-10-12] MEDS: rOPINIRole 1 MG TAB 2 MG PO (21:09)
[2021-10-12] MEDS: Zolpidem 5 MG TAB PO (21:10)
[2021-10-12] MEDS: Naproxen 500 MG TAB PO (21:24)
[2021-10-12 23:45] VITALS: BP 111/64; PULSE 61; RESP 16; TEMP 36.5; O2SAT 98
[2021-10-13 06:57] VITALS: BP 101/62; PULSE 53; RESP 18; TEMP 2.3; TEMP 36.2; O2SAT 98
[2021-10-13] MEDS: Umeclidinium 7 CAP INHALER 1 CAP IH (07:46)
[2021-10-13 07:48] LABS: Anion Gap 7.7 mmol/L (3-11); BUN 74 mg/dL (7-18); CO2 30.3 mmol/L (21.0-32.0); CREATININE 2.2 mg/dL (0.55-1.02); Calcium 9.1 mg/dL (8.5-10.1); Chloride 100 mmol/L (98-107); Glucose 92 mg/dL (74-106); Potassium 4.5 mmol/L (3.5-5.1); Sodium 138 mmol/L (136-145)
[2021-10-13 08:21] VITALS: O2SAT 98
[2021-10-13] MEDS: Normal Saline Flush 10 ML SYR IVP (09:06)
[2021-10-13] MEDS: Insulin Glargine 300 UNITS/3 ML PEN 35 UNITS SC (09:09)
--- NOTE | 2021-10-13 09:10 | W.PM.DS.N ---
Date of service: 10/13/21 Time of Service: 09:11 DS: Diagnosis Discharge Diagnosis (1) Closed bimalleolar fracture of right ankle: Status: Acute (2) Medial meniscus tear: Status: Acute (3) Hypokalemia: Status: Resolved (4) Essential hypertension: Status: Chronic (5) Diastolic CHF: (6) CAD (coronary artery disease), [place] coronary artery: Status: Chronic (7) Restless leg syndrome: (8) Seizure: (9) Pulmonary hypertension: (10) Palliative care patient: (11) Diabetes mellitus: Status: Chronic (12) Renal insufficiency: Status: Chronic Discharge Plan Disposition Patient Disposition: [facility] SWING BED LEVEL 1 Condition: Improving Discharge Details Reason For Visit: Bimalellolar FX of Right Ankle Admit Date/Time: 10/03/21 09:41 Admit Provider: Elvira Mims Attending Provider: Elvira Mims Primary Care Provider: Lasiha Mcmahon [place] [facility] Hospital Course: This is a super morbid obese female with history of frequent falls, who sustained first a knee fracture after multiple falls at home. She was admitted here, seen by orthopedics, deemed non surgical, cleared for weight bearing and refused to go to prison facility so was discharged to home. unfortunately she sustained another fall, due to tripping on walker, and returned here with a trimalleolar fracture of the same right lower extremity. She underwent surgical repair on Oct 07, 2021. post operative course complicated briefly with some fluid overload, received diuretics. Echo showed preserved LV function with EF 60% and no wall motion abnormalities. she diuresed well and has been medically stable. She continues to remain non weightbearing to the right ankle and will remain so for 2 weeks postoperatively. she will not be able to be safely discharged home d/t one failed discharge and no new weight bearing restrictions. she will be admitted to swing bed 1 here at [facility] while pending bed acceptance at a skilled facility. medically she is stable. discharge discussed with DR Brisa Sanchez Meds and New Rx's Prescriptions: No Action (DME) lancets 25 gauge misc See Dose Instructions .ROUTE .MEDSUPPLY Qty: 100 RF: 5 (DME) lancets [OneTouch Delica Lancets] 33 gauge misc See Dose Instructions .ROUTE DAILY Qty: 100 RF: 0 B-complex with vitamin C [Super B Complex-Vitamin C] Tablet 1 tab PO DAILY RF: 0 albuterol sulfate 2.5 mg /3 mL (0.083 %) solution for nebulization 2.5 mg INHALATION Q2H PRN PRN (Reason: shortness of breath or wheezing) Qty: 180 RF: 4 (DME) Blood Glucose Test Strip See Dose Instructions .ROUTE .MEDSUPPLY Qty: 300 RF: 5 ergocalciferol (vitamin D2) [Vitamin D2] 1,250 mcg (50,000 unit) capsule 50,000 unit PO Qty: 36 RF: 4 epinephrine [EpiPen 2-Erick] 0.3 mg/0.3 mL auto-injector 0.3 mg IM ONCE Qty: 2 RF: 10 omeprazole 40 mg capsule,delayed release(DR/EC) 40 mg PO BID Qty: 180 RF: 4 metoprolol succinate 100 mg tablet extended release 24 hr 100 mg PO DAILY Qty: 90 RF: 3 gabapentin 100 mg capsule 100 mg PO TID Qty: 270 RF: 0 metolazone 5 mg tablet 5 mg PO .4 times week PRN (Reason: chf) RF: 0 mupirocin 2 % ointment 1 applic topical BID Qty: 22 RF: 3 Creon 6,000-19,000 -30,000 unit capsule,delayed release(DR/EC) 1 cap PO TID Qty: 270 RF: 5 Slow-Mag 71.5 mg tablet,delayed release (DR/EC) 71.5 mg PO BID Qty: 180 RF: 4 meclizine 12.5 mg tablet 12.5 mg PO TID PRN (Reason: dizziness) Qty: 60 RF: 3 (DME) pen needle, diabetic [1st Tier Unifine Pentips] 31 gauge x 1/4 needle See Dose Instructions .ROUTE .MEDSUPPLY Qty: 450 RF: 5 Incruse Ellipta 62.5 mcg/actuation blister with device 1 inh inhalation DAILY Qty: 30 RF: 12 Januvia 25 mg tablet 25 mg PO DAILY Qty: 90 RF: 4 Basaglar KwikPen U-100 Insulin 100 unit/mL (3 mL) insulin pen 35 unit SC BID Qty: 90 RF: 4 insulin aspart U-100 [Novolog Flexpen U-100 Insulin] 100 unit/mL (3 mL) insulin pen 15 unit SC TID Qty: 30 RF: 5 budesonide-formoterol [Symbicort] 160-4.5 mcg/actuation HFA aerosol inhaler 2 puff inhalation BID RF: 0 levetiracetam [Keppra] 500 mg tablet 500 mg PO BID Qty: 180 RF: 5 torsemide 100 mg tablet 100 mg PO DAILY Qty: 90 RF: 6 potassium chloride [K-Tab] 20 mEq tablet extended release 40 meq PO BID Qty: 180 RF: 4 allopurinol 100 mg tablet 100 mg PO DAILY Qty: 90 RF: 12 triamcinolone acetonide 0.1 % cream 1 applic topical BID Qty: 80 RF: 0 isosorbide mononitrate 10 mg tablet 10 mg PO BID Qty: 180 RF: 5 atorvastatin 40 mg tablet 40 mg PO DAILY Qty: 90 RF: 6 duloxetine 60 mg capsule,delayed release(DR/EC) 60 mg PO DAILY Qty: 90 RF: 12 ropinirole 2 mg tablet 2 mg PO QPM PRN (Reason: restless leg(s)) Qty: 90 RF: 5 polyethylene glycol 3350 [Miralax] 17 gram Powder In Packet 1 g PO PRN PRNRF: 0 aspirin 81 mg Tablet,Delayed Release (Dr/Ec) 81 mg PO DAILY Qty: 0 RF: 0 hydrocodone-acetaminophen 10-325 mg Tablet 1 tab PO Q6H PRNQty: 12 RF: 0 acetaminophen [Tylenol Extra Strength] 500 mg Tablet 500 mg PO TID Qty: 0 RF: 0 calcium [id number] vitaliy 133 mg calcium -133 unit-67 mg Capsule 2 cap PO DAILY RF: 0 Discharge Instructions Instructions: ORIF of an Ankle Fracture (DC) Referrals: Hugo Alvarez MD [ [facility] STAFF PHYSICIAN] - Activity:: non weight bearing Equipment/Supplies:: non weight bearing Diet:: Carb Counting DS: Summary Time Spent with Patient providing and/or coordinating discharge services: Greater than 30 minutes Status at Discharge Functional status at discharge: wheelchair bound Overall status at discharge: patient is not back to baseline Mental Status: mental status grossly normal Speech and Movement: speech and movement normal Mood: congruent mood Affect: normal affect Exam Const General: cooperative Nutritional Appearance: obese Orientation: alert and awake HENMT Head: normal to inspection Mouth: oral mucosae normal Chest Chest: normal inspection of the chest Resp Effort & Inspection: normal respiratory effort Auscultation: clear to auscultation bilaterally Cardio Rate: regular rate Rhythm: regular rhythm GI Inspection: normal to inspection Palpation: soft Auscultation: normal bowel sounds Extrem Right lower extremity: abnormal to inspection (surgical cast in place, good csmt's distally. ) Psych Mental Status: mental status grossly normal Speech and Movement: speech and movement normal Mood: congruent mood Affect: normal affect DS: Data Vitals/I&O Vitals and I&O: Vital Signs Temperature 36.2 C L 10/13/21 06:57 Temperature Source Tympanic 10/13/21 06:57 Pulse 53 L 10/13/21 06:57 Pulse Rhythm Regular 10/13/21 04:35 Respiratory Rate 18 10/13/21 06:57 Respiratory Effort Non-Labored 10/13/21 04:35 Respiratory Depth Normal 10/13/21 04:35 Respiratory Pattern Normal 10/13/21 04:35 Blood Pressure 101/62 10/13/21 06:57 Blood Pressure Mean 75 10/04/21 11:35 Blood Pressure Position Left Lateral 10/04/21 11:35 Pulse Oximetry 98 10/13/21 08:21 Respiratory End-tidal CO2 51 10/07/21 16:58 Oxygen Delivery Method Nasal Cannula 10/13/21 08:21 Oxygen Flow Rate 2 10/13/21 08:21 Fraction of Inspired Oxygen (FIO2) 98 10/13/21 06:57 Pain Level 8 10/13/21 06:57 Comment 10/13/21 06:57 Intake & Output 10/12/21 10/12/21 10/13/21 11:59 23:59 11:59 Intake Total 180 / 180 Output Total 400 / 1000 600 / 1000 Balance -400 / -820 -420 / -820 Weight 117.5 kg 123.3 kg Intake: Oral 180 / 180 Output: Urine 400 / 1000 600 / 1000 Other: Urine Color Pale Yellow Yellow Yellow Urine Appearance Clear Clear Clear Urine Odor Normal None Comment Full bed change large amount. ICNT. Missed the bed silva Stool Size Small Stool Characteristics Hard Voiding Methods Bedside Commode Bedpan Bedpan Data Completed and Pending Labs on day of discharge: Labs from last 24 hours 10/13/21 06:10 Sodium 138 Potassium 4.5 Chloride 100 Carbon Dioxide 30.3 Anion Gap 7.7 BUN 74 H Creatinine 2.2 H Estimated GFR/1.73 m2 22.20 Glucose 92 Calcium 9.1 PFSH All Active Problems (Updated 10/11/21 @ 17:59 by Laisha Mcmahon [place], [place]) Palliative care patient (Acute) Closed bimalleolar fracture of right ankle (Acute) Fracture of proximal end of right fibula (Acute) Closed trimalleolar fracture of right ankle (Acute 10/03/21) Renal insufficiency (Chronic) Essential hypertension (Chronic 06/13/13) Diabetes mellitus (Chronic 09/20/10) DVT prophylaxis (Acute) CAD (coronary artery disease), [place] coronary artery (Chronic) Closed avulsion fracture of condyle of right femur (Acute) Cyst of lateral meniscus of right knee (Acute) Tear of lateral meniscus of right knee (Acute) Medial meniscus tear (Acute) Wound abscess (Acute) Discharge planning issues (Acute) Medical History Abnormal mammography 08/10/06 Acute kidney injury superimposed on chronic kidney disease [id number] kidney injury Altered mental status Anemia Ankle pain (03/13/14) Annual physical exam (12/14/15) Atrial fibrillation Atrial flutter BMI 40.0-44.9, adult (12/02/14) Carpal tunnel syndrome Carpal tunnel syndrome (08/10/06) BILATERAL R S/P SURGERY Cervical disc disorder with myelopathy (08/21/08) S/P surgery x 2 Cervical spondylosis with myelopathy Chest pain Neg Stress test CHF (congestive heart failure) Chronic obstructive lung disease CKD (chronic kidney disease) stage 3, GFR 30-59 ml/min Cr about 2.5 CKD stage 4 due to type 2 diabetes mellitus Congestive heart failure Constipation Dehydration Diabetes mellitus 09/20/10 Positive Microalbumin Diastolic CHF DNR no code (do not resuscitate) DVT (deep venous thrombosis) Dysuria Essential hypertension Folate deficiency (02/15/16) Gout Gout (07/06/11) Gram-positive bacteremia Greater trochanteric bursitis of left hip Hammer toe Left/right HAP (hospital-acquired pneumonia) (01/15/19) HCAP (healthcare-associated pneumonia) Heart failure with preserved ejection fraction, borderline, class III Hepatomegaly 06/10/04 Hip joint inflamed (09/03/15) Hip pain, left Hip pain, right Hyperglycemia Hyperlipidemia (08/10/00) Hypertension Hypomagnesemia Hypoxia IDDM (insulin dependent diabetes mellitus) Left hip pain Low back pain (04/10/03) DISC HERNIATION L4. MULTILEVEL DJD/SPINAL STENOSIS BY MRI; S/P surgery Lump in neck Macrocytic anemia Menopausal syndrome 07/11/03 Multiple falls Muscle fatigue 03/04/13 Myoclonic epileptic seizures Numbness and tingling in left upper extremity Palliative care patient Pancreatic atrophy Posterior tibial tendon dysfunction 02/03/16 Postmenopausal bleeding neg. endometrial biopsy Postoperative wound dehiscence (12/23/15) Prerenal azotemia Primary osteoarthritis of left hip (09/17/15) Pulmonary hypertension Renal impairment (07/11/03) ADRENAL MASS. F/U W/ [place]LA[place] positive microalbumin Restless leg syndrome Rotator cuff syndrome (08/01/09) Seizure Shingles Smoker (06/30/16) 01/17/17 1-2 cig/wk SOB (shortness of breath) Spinal stenosis of lumbar region (02/15/16) Spinal stenosis of lumbar region at multiple levels Tarsal tunnel syndrome 06/11/13 Tarsal tunnel syndrome (06/11/13) Trochanteric bursitis 03/18/13 Upper respiratory tract infection (08/03/15) UTI (urinary tract infection) Vaginal atrophy Vitamin D deficiency Vitamin D deficiency Weakness Surgical History Arthrodesis right 2nd toe Cataract (01/07/14) FOLLOWED BY [employer] cervical repair (~10/2008) C6-C7 DISK; RECURRENT SURGERY Cholecystectomy (07/31/13) Endometrial Biopsy NEG H/O arthrodesis right second toe H/O Spinal surgery multiple spine surgeries; low back x 2; She had multilevel DJD and spinal stenosis; disc herniation. 2008-cervical repair; C6-C7 disc; recurrent surgery. History of bilateral tubal ligation 09/11/80 History of gynecologic surgery endometrial biopsy-neg History of hip surgery 11/10/15 left hip arthroplasty 12/04/15-placement of wound VAC to left hip History of orthopedic surgery 09/11/97 tarsal tunnel release Left eye surgery 12/31/17 Ligation of fallopian tube (~1980) Open Carpal Tunnel release Right wrist surgery 10/26/17 Rotator Cuff Repair (~1980) S/P CABG (coronary artery bypass graft) (01/03/19) 4 vessel CABG and LA appendage excision, Dr. Nav Wang, [facility] [place], [place], [place] S/P carpal tunnel release S/P cholecystectomy 09/11/12 S/P rotator cuff repair 09/11/80 SPINE SURGERY Multiple spine surgeries, low back x 2. She had multilevel DJD and spinal stenosis, disc herniation Status post incision and drainage 12/04/15 left hip surgical wound dehiscence and infection tarsal tunnel release (~1997) Total replacement of hip [facility]; LEFT HIP Family History Mother Diabetes Essential hypertension Personal history of malignant neoplasm KIDNEY/LIVER/BRAIN Heart disease Hyperlipidemia Stroke Asthma Father Diabetes Essential hypertension Personal history of malignant neoplasm BONE Heart disease Asthma Sister Diabetes Essential hypertension Depression Heart disease Asthma Grandfather No problems noted. Grandfather No problems noted. Grandmother Personal history of malignant neoplasm UTERINE Grandmother Diabetes Aunt Personal history of malignant neoplasm BREAST Brother Hyperlipidemia Stroke Sister Asthma Son Asthma Daughter Depression Asthma Daughter Asthma Daughter Depression Neoplasm Asthma Brother No problems noted. 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
[2021-10-13] MEDS: Omeprazole 20 MG CAPCR 40 MG PO (09:13)
[2021-10-13] MEDS: levETIRAcetam 500 MG TAB PO (09:13)
[2021-10-13] MEDS: Allopurinol 100 MG TAB PO (09:13)
[2021-10-13] MEDS: Gabapentin 100 MG CAP PO ×2 (09:14→13:08)
[2021-10-13] MEDS: Torsemide 100 MG TAB PO (09:14)
[2021-10-13] MEDS: Creon, Lipase 6,000 CAPCR 1 CAP PO ×2 (09:14→13:08)
[2021-10-13] MEDS: Aspirin E.C. 81 MG TABEC PO (09:15)
[2021-10-13] MEDS: Metoprolol CR 100 MG TABCR PO (09:15)
[2021-10-13] MEDS: Isosorbide Mononitrate 10 MG TAB PO (09:15)
[2021-10-13] MEDS: Potassium Chloride 20 MEQ TABCR 40 MEQ PO (09:15)
[2021-10-13] MEDS: Atorvastatin 40 MG TAB PO (09:15)
[2021-10-13] MEDS: DULoxetine 30 MG CAP 60 MG PO (09:15)
[2021-10-13] MEDS: Methocarbamol 750 MG TAB 1500 MG PO (09:43)
[2021-10-13] MEDS: Docusate Sodium 100 MG CAP PO (09:44)
[2021-10-13] MEDS: Magnesium Chloride 64 MG TABCR PO (10:45)
[2021-10-13] MEDS: Enoxaparin 30 MG/0.3 ML SYR SC (10:46)
[2021-10-13] MEDS: Insulin Aspart 300 UNITS/3 ML PEN SC (11:48)
--- NOTE | 2021-10-13 12:00 | PT.INDS ---
Date of service: 10/13/21 Time of Service: 12:00 PT Notes Visit Reasons: Bimalellolar FX of Right Ankle Inpatient Physical Therapy Discharge Summary Date: 10/13/2021 Dates of Service: 10/08/2021 through 10/13/2021 This is a clinical summary of care provided for the duration of dates listed above. No charge was made in the completion of this documentation. Precautions: Per orthopod: NWB on R LE with AD for 2 weeks followed by protected weight bearing (less than 50%) x 4 weeks. No knee restrictions. Premedicate for pain beofre session. Fall. Standard. Patient Profile/Admitting Diagnosis: Bibi is a 70-year-old female palliative care patient converting to swing bed level I as of today 10/13/2021 with multiple medical co-morbidities and with with right displaced trimalleolar fracture with near dislocation S/P ORIF of medial and lateral malleoli with syndesmotic fixation on postoperative day 5. She was previously admitted to this hospital on 09/26/2021 for tear of the lateral meniscus of the right knee, cyst of the lateral meniscus of the right knee, and avulsion fracture of the right femoral condyle sustained from repeated falls at home. She was seen for physical therapy from 09/27/2021 through 09/30/2021 and was given the recommendation of SNF placement for continued rehabilitation which patient declined to and instead went home. PMHX: All Active Problems (Updated 10/03/21 @ 15:24 by Tiana Grey NP) Essential hypertension (Chronic 06/13/13) Diabetes mellitus (Chronic 09/20/10) DVT prophylaxis (Acute) CAD (coronary artery disease), [place] coronary artery (Chronic) Closed bimalleolar fracture of right ankle (Acute) Closed avulsion fracture of condyle of right femur (Acute) Cyst of lateral meniscus of right knee (Acute) Tear of lateral meniscus of right knee (Acute) Medial meniscus tear (Acute) Wound abscess (Acute) Discharge planning issues (Acute) Medical History Abnormal mammography 08/10/06 Acute kidney injury superimposed on chronic kidney disease Ioqnf-qy-tvjprhr kidney injury Altered mental status Anemia Ankle pain (03/13/14) Annual physical exam (12/14/15) Atrial fibrillation Atrial flutter BMI 40.0-44.9, adult (12/02/14) CAD (coronary artery disease), [place] coronary artery Carpal tunnel syndrome Carpal tunnel syndrome (08/10/06) BILATERAL R S/P SURGERY Cervical disc disorder with myelopathy (08/21/08) S/P surgery x 2 Cervical spondylosis with myelopathy Chest pain Neg Stress test CHF (congestive heart failure) Chronic obstructive lung disease CKD (chronic kidney disease) stage 3, GFR 30-59 ml/min Cr about 2.5 CKD stage 4 due to type 2 diabetes mellitus Congestive heart failure Constipation Dehydration Diabetes mellitus 09/20/10 Positive Microalbumin Diastolic CHF DNR no code (do not resuscitate) DVT (deep venous thrombosis) Dysuria Essential hypertension Folate deficiency (02/15/16) Gout Gout (07/06/11) Gram-positive bacteremia Greater trochanteric bursitis of left hip Hammer toe Left/right HAP (hospital-acquired pneumonia) (01/15/19) HCAP (healthcare-associated pneumonia) Heart failure with preserved ejection fraction, borderline, class III Hepatomegaly 06/10/04 Hip joint inflamed (09/03/15) Hip pain, left Hip pain, right Hyperglycemia Hyperlipidemia (08/10/00) Hypertension Hypomagnesemia Hypoxia IDDM (insulin dependent diabetes mellitus) Left hip pain Low back pain (04/10/03) DISC HERNIATION L4. MULTILEVEL DJD/SPINAL STENOSIS BY MRI; S/P surgery Lump in neck Macrocytic anemia Menopausal syndrome 07/11/03 Multiple falls Muscle fatigue 03/04/13 Myoclonic epileptic seizures Numbness and tingling in left upper extremity Palliative care patient Pancreatic atrophy Posterior tibial tendon dysfunction 02/03/16 Postmenopausal bleeding neg. endometrial biopsy Postoperative wound dehiscence (12/23/15) Prerenal azotemia Primary osteoarthritis of left hip (09/17/15) Pulmonary hypertension Renal impairment (07/11/03) ADRENAL MASS. F/U W/ KINLAW positive microalbumin Restless leg syndrome Rotator cuff syndrome (08/01/09) Seizure Shingles Smoker (06/30/16) 01/17/17 1-2 cig/wk SOB (shortness of breath) Spinal stenosis of lumbar region (02/15/16) Spinal stenosis of lumbar region at multiple levels Tarsal tunnel syndrome 06/11/13 Tarsal tunnel syndrome (06/11/13) Trochanteric bursitis 03/18/13 Upper respiratory tract infection (08/03/15) UTI (urinary tract infection) Vaginal atrophy Vitamin D deficiency Vitamin D deficiency Weakness Surgical History Arthrodesis right 2nd toe Cataract (01/07/14) FOLLOWED BY OPTICAL EXPRESSIONS cervical repair (~10/2008) C6-C7 DISK; RECURRENT SURGERY Cholecystectomy (07/31/13) Endometrial Biopsy NEG H/O arthrodesis right second toe H/O Spinal surgery multiple spine surgeries; low back x 2; She had multilevel DJD and spinal stenosis; disc herniation. 2009-cervical repair; C6-C7 disc; recurrent surgery. History of bilateral tubal ligation 09/11/80 History of gynecologic surgery endometrial biopsy-neg History of hip surgery 11/10/15 left hip arthroplasty 12/04/15-placement of wound VAC to left hip History of orthopedic surgery 09/11/97 tarsal tunnel release Left eye surgery 12/31/17 Ligation of fallopian tube (~1980) Open Carpal Tunnel release Right wrist surgery 10/26/17 Rotator Cuff Repair (~1980) S/P CABG (coronary artery bypass graft) (01/03/19) 4 vessel CABG and LA appendage excision, Dr. Nav Wang, [facility] – [place], [place], [place] S/P carpal tunnel release S/P cholecystectomy 09/11/12 S/P rotator cuff repair 09/11/80 SPINE SURGERY Multiple spine surgeries, low back x 2. She had multilevel DJD and spinal stenosis, disc herniation Status post incision and drainage 12/04/15 left hip surgical wound dehiscence and infection tarsal tunnel release (~1997) Total replacement of hip [facility]; LEFT HIP Social History/Home Situation: Independent with all mobility ADLs using the front-wheeled walker. Has had repeated falls the past month. Equipment Owned/DME: [facility] Subjective: Reports feeling a lot better and feels a lot more secure doing her transfers from bed and to chair. Agreeable to continuing services with PT at suggested frequency. States that sometimes in standing she puts her toes down, otherwise the walker tips over and she feels a lot unsteady. Reports 2-3/10 at rest and 5-6/10 with transfers. Reports that intermittent spasms accompanied by pain still limit her mobility performance. Objective: General Observation: Seated on chair. R ankle in short leg AO splint covered with MARTIR wraps. Mental Status: Alert and oriented as to person, place, time, and purpose. Pain: 2-3/10 at rest, 5-6/10 with transfers ROM: Right Upper Extremity: Shoulder Flexion WFL. Shoulder abduction WFL. Elbow flexion WFL. Wrist flexion WFL. Functional opening and closing of hand WFL. Left Upper Extremity: Shoulder Flexion WFL. Shoulder abduction WFL. Elbow flexion WFL. Wrist flexion WFL. Functional opening and closing of hand WFL. Right Lower Extremity: Hip flexion about 50% of active ROM due to pain and intermittent spasms. Hip abduction less than 50% of active ROM. Knee flexion WFL. Knee extension -10 degrees. Ankle dorsiflexion unable. Ankle plantarflexion unable. Left Lower Extremity: Hip flexion WFL. Hip abduction WFL. Knee flexion WFL. Ankle dorsiflexion WFL. Ankle plantarflexion WFL. Strength: Right Upper Extremity: Shoulder flexors 4/5. Shoulder abductors 4/5. Elbow flexors 4/5. Elbow extensors 4/5. Foil Wrapper strong. Left Upper Extremity: Shoulder flexors 4/5. Shoulder abductors 4/5. Elbow flexors 4/5. Elbow extensors 4/5. Foil Wrapper strong. Right Lower Extremity: Hip flexors 3-/5. Hip abductors 3-/5. Knee flexors 3-/5. Knee extensors 3-/5. Ankle dorsiflexors 0/5. Ankle plantarflexors 0/5. Left Lower Extremity: Hip flexors 4-/5. Hip abductors 4-/5. Knee flexors 4-/5. Knee extensors 4-/5. Ankle dorsiflexors 4-/5. Ankle plantarflexors 4-/5. Bed Mobility/Transfers: Sit to stand independent Stand to sit independent Gait: Patient is able to tolerate up to 5 steps with NWB on L LE using the bariatric FWW with supervision. Balance: Sitting static:Normal Sitting dynamic: Good Standing static: Unable Standing dynamic: Unable Assessment: Patient remains NWB on R LE until October 21, 2021 and will need to transition to less than 50% WB beginning October 22, 2021 per orthopod's order. Patient will require continued services 3x/week for 2 weeks for B UE/LE strengthening in anticipation of weight bearing progression to reduce fall risk. Patient presents with clinical signs and symptoms consistent with current/admitting diagnoses that have resulted to mobility limitations, gait instability, generalized weakness, and overall ADL decline as demonstrated by the following impairment level findings: 1. Decreased strength to B UE/LE 2. Impaired activity tolerance 3. Limitation of joint range of motion in R LE joints 4. Pain in R ankle and foot at 5-6/10 5. Intermittent spasms in R LE 6. NWB on R LE Impairments are contributing to the following functional limitations: 1. Decline in bed mobility skills 2. Decline in transfer skills 3. Unable to ambulate 4. Increased completion time for mobility ADL performance 5. Increased risk for falls 6. Inability to thrive at home Goals: Goals X1 week 1. Supine-Sit minimal assist MET 2. Sit-Supine minimal assist MET 3. Sit-Stand minimal assist MET 4. Stand-Sit minimal assist with bariatric FWW MET 5. Bed-Chair minimal assist with bariatric FWW MET 6. Chair-Bed minimal assist with bariatric FWW MET 7. Minimal assist with bariatric FWW with gait on level surface for at least 50 feet without report of pain nor dyspnea NOT MET 8. Fair static and dynamic standing balance/tolerance NOT MET DISCHARGE RECOMMENDATIONS: [] Home with no services [] [] Home with services [specify] [] Home with outpatient PT [] [X] SNF for continued rehabilitation. Discharge to SNF when medically cleared by hospitalist. Patient will benefit from nursing home facility placement for continued skilled physical therapy services in order to progress mobility level, strength, and balance in preparation for a safe discharge to home. [] [facility] [] [] SNF versus LTC based on ability to participate and progress [] TREATMENT CODE/TIME: [place] Thank you for the opportunity to participate in the care of this patient. Kathryn Sainz PT, DPT, CLT [facility] [place], [place]
[2021-10-13] MEDS: Nystatin POWDER 60 GM JAR TP (13:09)
--- NOTE | 2021-10-13 17:06 | CMPROGNOTE_ITS ---
- If Service Date Differs Date of service: 10/13/21 Time of Service: 17:07 Care Management Progress Note S/O: Bibi was sitting up in her chair when CM met with her. She continues to improve, working with PT to strengthen and increase mobility with transfers. Her work with PT is limited by her injury at this time, but she is compliant with recommendations for exercises and is motivated to do well in order to return home as soon as she is able. Her plan has been to transfer to the [facility], but he are currently closed to admissions due to COVID, and will likely not reopen until next week, therefore she will be transitioned to [facility] 1 today. Her anticipated discharge will be by the end of next week, when the [facility] is open to admissions. CM reviewed the SWB packet with Bibi and answered any questions/concerns. She is agreeable to the plan. CM will continue to follow. A: Ann-Marie is a 70 year old female admitted to [facility] on 10/03/21 for R Ankle fx. P: Anticipate Bibi will go to SNF post surgically, once she is medically cleared. She has been accepted at the [facility], but the facility is currently closed to admissions, so she will transition to [facility] while waiting for a bed to become available. She will transport via w/c van vs EMS, depending on mobility at time of discharge. She will follow up with her PCP and discharge plan of care. CM will continue to follow.
== END 2021-10-13 13:12 | disposition swing bed (61) | DRG 493 ==
LOC: ER 10:08 → MS 10:14
PROVIDERS: Nurse Practitioner Acute Care; Nurse Practitioner Family; Student in an Organized Health Care Education/Training Program; Admitting Provider Internal Medicine; Emergency Provider Emergency Medicine; PCP Family Medicine; Visit Provider Internal Medicine
PROC: 0QSGXZZ Reposition Right Tibia, External Approach (ICD-10-PCS; CPT 27818; principal; 2021-10-05 14:15)
PROC: 0QSJ04Z Reposition Right Fibula with Internal Fixation Device, Open Approach (ICD-10-PCS; CPT 27829; principal; 2021-10-07 12:15)
DX: S82.851A Displaced trimalleolar fracture of right lower leg, initial encounter for closed fracture (principal); I50.32 Chronic diastolic (congestive) heart failure; I13.0 Hypertensive heart and chronic kidney disease with heart failure and stage 1 through stage 4 chronic kidney disease, or unspecified chronic kidney disease; I48.92 Unspecified atrial flutter; G25.81 Restless legs syndrome; S93.431A Sprain of tibiofibular ligament of right ankle, initial encounter; J44.9 Chronic obstructive pulmonary disease, unspecified; E11.9 Type 2 diabetes mellitus without complications; N18.9 Chronic kidney disease, unspecified; S82.831A Other fracture of upper and lower end of right fibula, initial encounter for closed fracture; W18.39XA Other fall on same level, initial encounter; Z79.4 Long term (current) use of insulin; I48.91 Unspecified atrial fibrillation; K59.00 Constipation, unspecified; I25.10 Atherosclerotic heart disease of native coronary artery without angina pectoris; Z66 Do not resuscitate; E78.5 Hyperlipidemia, unspecified; G40.409 Other generalized epilepsy and epileptic syndromes, not intractable, without status epilepticus; E55.9 Vitamin D deficiency, unspecified; M48.061 Spinal stenosis, lumbar region without neurogenic claudication; D53.9 Nutritional anemia, unspecified; Z91.81 History of falling; I27.20 Pulmonary hypertension, unspecified; S83.241D Other tear of medial meniscus, current injury, right knee, subsequent encounter; S83.411D Sprain of medial collateral ligament of right knee, subsequent encounter; S72.431D Displaced fracture of medial condyle of right femur, subsequent encounter for closed fracture with routine healing; W19.XXXD Unspecified fall, subsequent encounter; E87.6 Hypokalemia
CPT/HCPCS: 27829; 27822; 27818; 27752; 36415; 51702; 76942; 80048; 80053; 82306; 87077; 87637; 93005; 93306; 94640; 96361; 96374; 97110; 97163; 97530; 97761; 99222; 99285; J1650; J3490; 71045; 73560; 73590; 73600; 73610; 73700; 81003; 81015; 83735; 84484; 85025; 87086; 87186; 93010; 99223; 99231; 99232; 99233; 99239; J0131; J0690; J2270; J2405; J2704; J3010; J3480

== ENCOUNTER 2021-10-13 11:00 | Inpatient (IN) | payer OTHER, MEDICAID, SELFPAY ==
--- NOTE | 2021-10-13 10:56 | W.PM.HP.N ---
Date of service: 10/13/21 Time of Service: 10:56 Assessment and Plan Assessment and plan (1) Closed trimalleolar fracture of right ankle: Qualifiers: Encounter type: initial encounter Qualified Code(s): S82.851A - Displaced trimalleolar fracture of right lower leg, initial encounter for closed fracture (2) Fracture of proximal end of right fibula: Qualifiers: Encounter type: initial encounter Fracture morphology: other fracture Fracture type: closed Qualified Code(s): S82.831A - Other fracture of upper and lower end of right fibula, initial encounter for closed fracture (3) Diabetes mellitus: Assessment and plan: A1C August 2021 6.8 continue diabetic diet with sliding scale coverage as needed ac/hs Qualifiers: Diabetes mellitus complication status: without complication Diabetes mellitus residential insulin use: with residential use Diabetes mellitus type: type 2 Qualified Code(s): E11.9 - Type 2 diabetes mellitus without complications; Z79.4 - technician terminal and repeater (current) use of insulin (4) Essential hypertension: Assessment and plan: blood pressure well controlled SBP 100-110's continue current regimen and monitor, adjust as needed (5) Renal insufficiency: Assessment and plan: creatinine stable and below baseline of 2.4-2.8 now at 2.2 monitor weekly, avoid nephrotoxic drugs and renal dosing as needed (6) Palliative care patient: Assessment and plan: following patient for goals of care (7) Discharge planning issues: Status: Deleted Assessment and plan: will need residential placement in setting of activity restrictions and multiple falls at home\ case management following, referrals placed. discussed with Dr Caban History of Present Illness History of Present Illness Chief Complaint: right ankle fracture Narrative: This is a super morbid obese female with history of frequent falls, who sustained first a knee fracture after multiple falls at home. She was admitted here, seen by orthopedics, deemed non surgical, cleared for weight bearing and refused to go to residential facility so was discharged to home. unfortunately she sustained another fall, due to tripping on walker, and returned here with a trimalleolar fracture of the same right lower extremity. She underwent surgical repair on Oct 07, 2021. post operative course complicated briefly with some fluid overload, received diuretics. Echo showed preserved LV function with EF 60% and no wall motion abnormalities. she diuresed well and has been medically stable. She continues to remain non weightbearing to the right ankle and will remain so for 2 weeks postoperatively. she will not be able to be safely discharged home d/t one failed discharge and no new weight bearing restrictions. she will be admitted to swing bed 1 here at [facility] while pending bed acceptance at a skilled facility. medically she is stable. [facility] All Active Problems (Updated 10/14/21 @ 00:03 by ROBBY SIDDIQUI) Cyst of lateral meniscus of right knee (Acute) Wound abscess (Acute) Medical History Abnormal mammography 08/10/06 Acute kidney injury superimposed on chronic kidney disease Zroic-[id number]-[id number] kidney injury Altered mental status Anemia Ankle pain (03/13/14) Annual physical exam (12/14/15) Atrial fibrillation Atrial flutter BMI 40.0-44.9, adult (12/02/14) Carpal tunnel syndrome Carpal tunnel syndrome (08/10/06) BILATERAL R S/P SURGERY Cervical disc disorder with myelopathy (08/21/08) S/P surgery x 2 Cervical spondylosis with myelopathy Chest pain Neg Stress test CHF (congestive heart failure) Chronic obstructive lung disease CKD (chronic kidney disease) stage 3, GFR 30-59 ml/min Cr about 2.5 CKD stage 4 due to type 2 diabetes mellitus Congestive heart failure Constipation Dehydration Diabetes mellitus 09/20/10 Positive Microalbumin Diastolic CHF DNR no code (do not resuscitate) DVT (deep venous thrombosis) Dysuria Essential hypertension Folate deficiency (02/15/16) Gout Gout (07/06/11) Gram-positive bacteremia Greater trochanteric bursitis of left hip Hammer toe Left/right HAP (hospital-acquired pneumonia) (01/15/19) HCAP (healthcare-associated pneumonia) Heart failure with preserved ejection fraction, borderline, class III Hepatomegaly 06/10/04 Hip joint inflamed (09/03/15) Hip pain, left Hip pain, right Hyperglycemia Hyperlipidemia (08/10/00) Hypertension Hypomagnesemia Hypoxia IDDM (insulin dependent diabetes mellitus) Left hip pain Low back pain (04/10/03) DISC HERNIATION L4. MULTILEVEL DJD/SPINAL STENOSIS BY MRI; S/P surgery Lump in neck Macrocytic anemia Menopausal syndrome 07/11/03 Multiple falls Muscle fatigue 03/04/13 Myoclonic epileptic seizures Numbness and tingling in left upper extremity Palliative care patient Pancreatic atrophy Posterior tibial tendon dysfunction 02/03/16 Postmenopausal bleeding neg. endometrial biopsy Postoperative wound dehiscence (12/23/15) Prerenal azotemia Primary osteoarthritis of left hip (09/17/15) Pulmonary hypertension Renal impairment (07/11/03) ADRENAL MASS. F/U W/ KINLAW positive microalbumin Restless leg syndrome Rotator cuff syndrome (08/01/09) Seizure Shingles Smoker (06/30/16) 01/17/17 1-2 cig/wk SOB (shortness of breath) Spinal stenosis of lumbar region (02/15/16) Spinal stenosis of lumbar region at multiple levels Tarsal tunnel syndrome 06/11/13 Tarsal tunnel syndrome (06/11/13) Trochanteric bursitis 03/18/13 Upper respiratory tract infection (08/03/15) UTI (urinary tract infection) Vaginal atrophy Vitamin D deficiency Vitamin D deficiency Weakness Surgical History Arthrodesis right 2nd toe Cataract (01/07/14) FOLLOWED BY OPTICAL EXPRESSIONS cervical repair (~10/2008) C6-C7 DISK; RECURRENT SURGERY Cholecystectomy (07/31/13) Endometrial Biopsy NEG H/O arthrodesis right second toe H/O Spinal surgery multiple spine surgeries; low back x 2; She had multilevel DJD and spinal stenosis; disc herniation. 2008-cervical repair; C6-C7 disc; recurrent surgery. History of bilateral tubal ligation 09/11/80 History of gynecologic surgery endometrial biopsy-neg History of hip surgery 11/10/15 left hip arthroplasty 12/04/15-placement of wound VAC to left hip History of orthopedic surgery 09/11/97 tarsal tunnel release Left eye surgery 12/31/17 Ligation of fallopian tube (~1980) Open Carpal Tunnel release Right wrist surgery 10/26/17 Rotator Cuff Repair (~1980) S/P CABG (coronary artery bypass graft) (01/03/19) 4 vessel CABG and LA appendage excision, Dr. Nav Wang, [facility] – [place], [place] S/P carpal tunnel release S/P cholecystectomy 09/11/12 S/P rotator cuff repair 09/11/80 SPINE SURGERY Multiple spine surgeries, low back x 2. She had multilevel DJD and spinal stenosis, disc herniation Status post incision and drainage 12/04/15 left hip surgical wound dehiscence and infection tarsal tunnel release (~1997) Total replacement of hip [facility]; LEFT HIP Family History Mother Diabetes Essential hypertension Personal history of malignant neoplasm KIDNEY/LIVER/BRAIN Heart disease Hyperlipidemia Stroke Asthma Father Diabetes Essential hypertension Personal history of malignant neoplasm BONE Heart disease Asthma Sister Diabetes Essential hypertension Depression Heart disease Asthma Grandfather No problems noted. Grandfather No problems noted. Grandmother Personal history of malignant neoplasm UTERINE Grandmother Diabetes Aunt Personal history of malignant neoplasm BREAST Brother Hyperlipidemia Stroke Sister Asthma Son Asthma Daughter Depression Asthma Daughter Asthma Daughter Depression Neoplasm Asthma Brother No problems noted. 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 Pets and animals: Yes Pets and animals: cat(s), dog(s) and horse(s) What is your relationship status?: Panel score (0-1 are the most socially isolated patients): 0 What type of physical activity do you participate in: none, walking and additional Details: would like to start now that it's warm Duration: 15-30 minutes/day Saniya/Jewish: Zoroastrianism Special saniya needs: No Seatbelt use: always Do you feel safe at home: Yes Do you feel safe in your relationship?: Yes Additional Social history: recently moved out and is now living with a friend Meds Allergies and Home Medications Allergies Allergy/AdvReac Type Severity Reaction Status Date / Time oxycodone Allergy Severe Psychosis Verified 09/26/21 09:03 venom-honey bee Allergy Severe ANAPHYLAXIS Verified 09/26/21 09:03 adhesive Allergy BLISTERS Verified 09/26/21 09:03 Home Medications Medication Instructions Recorded Confirmed Type lancets 33 gauge #100 each 12/18/18 10/13/21 Rx polyethylene glycol 3350 [Miralax] 1 g PO PRN PRN 05/07/19 02/02/22 History lancets 25 gauge #100 each 01/29/19 10/13/21 Rx B-complex with vitamin C 1 tab PO DAILY 09/19/19 10/13/21 History calcium wdwe-D2-jwtetugwl vitaliy 2 cap PO DAILY 03/11/20 10/13/21 History aspirin 81 mg PO DAILY #0 tab 06/01/20 10/13/21 Rx albuterol sulfate 2.5 mg INHALATION Q2H PRN PRN #180 09/10/20 10/13/21 Rx ml okidit-glplqxbh-ptgzdxl 1 cap PO TID #270 cap 10/01/20 10/13/21 Rx 6,000-19,000-30,000 unit capsule,delayed rel magnesium chloride 71.5 mg 71.5 mg PO BID #180 tab 10/19/20 10/13/21 Rx (magnesium chloride) tablet,delayed release meclizine 12.5 mg tablet 12.5 mg PO TID PRN #60 tab 12/07/20 10/13/21 Rx pen needle, diabetic 31 gauge x #450 each 12/10/20 10/13/21 Rx 1/4 budesonide-formoterol HFA 160 2 puff INHALATION BID 01/07/21 10/13/21 History mcg-4.5 mcg/actuation aerosol inhaler insulin aspart U-100 100 unit/mL 15 unit SC TID #30 ml 01/07/21 10/13/21 Rx (3 mL) subcutaneous pen insulin glargine 100 unit/mL (3 35 unit SC BID #90 ml 01/07/21 10/13/21 Rx mL) subcutaneous pen sitagliptin 25 mg tablet 25 mg PO DAILY #90 tab 01/07/21 10/13/21 Rx umeclidinium 62.5 mcg/actuation 1 inh INHALATION DAILY #30 ea 01/07/21 10/13/21 Rx blister powder for inhalation epinephrine 0.3 mg/0.3 mL 0.3 mg IM ONCE #2 ea 02/04/21 10/13/21 Rx injection, auto-injector metoprolol succinate 100 mg 100 mg PO DAILY #90 tab 02/18/21 10/13/21 Rx tablet,extended release 24 hr omeprazole 40 mg capsule,delayed 40 mg PO BID #180 cap 02/18/21 10/13/21 Rx release levetiracetam 500 mg tablet 500 mg PO BID #180 tab 02/22/21 10/13/21 Rx torsemide 100 mg tablet 100 mg PO DAILY #90 tab 03/19/21 10/13/21 Rx blood sugar diagnostic #300 each 04/08/21 10/13/21 Rx ergocalciferol (vitamin D2) 1,250 50,000 unit PO M-W-F #36 tab-cap 04/08/21 10/13/21 Rx mcg (50,000 unit) capsule potassium chloride 20 mEq 40 meq PO BID #180 tab 04/21/21 10/13/21 Rx tablet,extended release allopurinol 100 mg tablet 100 mg PO DAILY #90 tab-cap 05/27/21 10/13/21 Rx metolazone 5 mg tablet 5 mg PO .4 times week PRN tab 05/28/21 10/13/21 History gabapentin 100 mg capsule 100 mg PO TID #270 cap 06/07/21 10/13/21 Rx triamcinolone acetonide 0.1 % 1 applic TOPICAL BID #80 g 07/20/21 10/13/21 Rx topical cream atorvastatin 40 mg tablet 40 mg PO DAILY #90 tab-cap 08/03/21 10/13/21 Rx duloxetine 60 mg capsule,delayed 60 mg PO DAILY #90 tab-cap 08/03/21 10/13/21 Rx release isosorbide mononitrate 10 mg tablet 10 mg PO BID #180 tab 08/03/21 10/13/21 Rx ropinirole 2 mg tablet 2 mg PO QPM PRN #90 tab 08/03/21 10/13/21 Rx mupirocin 2 % topical ointment 1 applic TOPICAL BID #22 g 08/24/21 10/13/21 Rx acetaminophen [Tylenol Extra 500 mg PO TID #0 tab 09/30/21 10/13/21 Rx Strength] hydrocodone-acetaminophen 1 tab PO Q6H PRN #12 tab 09/30/21 10/13/21 Rx Exam Narrative Exam Narrative: Const General: cooperative Nutritional Appearance: obese Orientation: alert and awake HENMT Head: normal to inspection Mouth: oral mucosae normal Chest Chest: normal inspection of the chest Resp Effort & Inspection: normal respiratory effort Auscultation: clear to auscultation bilaterally Cardio Rate: regular rate Rhythm: regular rhythm GI Inspection: normal to inspection Palpation: soft Auscultation: normal bowel sounds Extrem Right lower extremity: abnormal to inspection (surgical cast in place, good csmt's distally. ) Psych Mental Status: mental status grossly normal Speech and Movement: speech and movement normal Mood: congruent mood Affect: normal affect
[2021-10-13 14:54] VITALS: BP 98/52; PULSE 60; RESP 20; TEMP 36.2; O2SAT 97
--- NOTE | 2021-10-13 15:25 | PT.INIE ---
Date of service: 10/13/21 Time of Service: 15:25 PT Notes Visit Reasons: R ANKLE FX Swing Bed Level I Physical Therapy Initial Evaluation Date: 10/13/2021 Referring Doctor: Marina Coker MD PT Orders: PT CONSULT: Swing Bed Level I Evaluation Precautions: Per orthopod: NWB on R LE with AD for 2 weeks followed by protected weight bearing (less than 50%) x 4 weeks. No knee restrictions. Premedicate for pain beofre session. Fall. Standard. Patient Profile/Admitting Diagnosis: Bibi is a 70-year-old female palliative care patient converting to swing bed level I as of today 10/13/2021 with multiple medical co-morbidities and with with right displaced trimalleolar fracture with near dislocation S/P ORIF of medial and lateral malleoli with syndesmotic fixation on postoperative day 5. She was previously admitted to this hospital on 09/26/2021 for tear of the lateral meniscus of the right knee, cyst of the lateral meniscus of the right knee, and avulsion fracture of the right femoral condyle sustained from repeated falls at home. She was seen for physical therapy from 09/27/2021 through 09/30/2021 and was given the recommendation of SNF placement for continued rehabilitation which patient declined to and instead went home. PMHX: All Active Problems (Updated 10/03/21 @ 15:24 by Tinaa Grey NP) Essential hypertension (Chronic 06/13/13) Diabetes mellitus (Chronic 09/20/10) DVT prophylaxis (Acute) CAD (coronary artery disease), [place] coronary artery (Chronic) Closed bimalleolar fracture of right ankle (Acute) Closed avulsion fracture of condyle of right femur (Acute) Cyst of lateral meniscus of right knee (Acute) Tear of lateral meniscus of right knee (Acute) Medial meniscus tear (Acute) Wound abscess (Acute) Discharge planning issues (Acute) Medical History Abnormal mammography 08/10/06 Acute kidney injury superimposed on chronic kidney disease [id number] kidney injury Altered mental status Anemia Ankle pain (03/13/14) Annual physical exam (12/14/15) Atrial fibrillation Atrial flutter BMI 40.0-44.9, adult (12/02/14) CAD (coronary artery disease), [place] coronary artery Carpal tunnel syndrome Carpal tunnel syndrome (08/10/06) BILATERAL R S/P SURGERY Cervical disc disorder with myelopathy (08/21/08) S/P surgery x 2 Cervical spondylosis with myelopathy Chest pain Neg Stress test CHF (congestive heart failure) Chronic obstructive lung disease CKD (chronic kidney disease) stage 3, GFR 30-59 ml/min Cr about 2.5 CKD stage 4 due to type 2 diabetes mellitus Congestive heart failure Constipation Dehydration Diabetes mellitus 09/20/10 Positive Microalbumin Diastolic CHF DNR no code (do not resuscitate) DVT (deep venous thrombosis) Dysuria Essential hypertension Folate deficiency (02/15/16) Gout Gout (07/06/11) Gram-positive bacteremia Greater trochanteric bursitis of left hip Hammer toe Left/right HAP (hospital-acquired pneumonia) (01/15/19) HCAP (healthcare-associated pneumonia) Heart failure with preserved ejection fraction, borderline, class III Hepatomegaly 06/10/04 Hip joint inflamed (09/03/15) Hip pain, left Hip pain, right Hyperglycemia Hyperlipidemia (08/10/00) Hypertension Hypomagnesemia Hypoxia IDDM (insulin dependent diabetes mellitus) Left hip pain Low back pain (04/10/03) DISC HERNIATION L4. MULTILEVEL DJD/SPINAL STENOSIS BY MRI; S/P surgery Lump in neck Macrocytic anemia Menopausal syndrome 07/11/03 Multiple falls Muscle fatigue 03/04/13 Myoclonic epileptic seizures Numbness and tingling in left upper extremity Palliative care patient Pancreatic atrophy Posterior tibial tendon dysfunction 02/03/16 Postmenopausal bleeding neg. endometrial biopsy Postoperative wound dehiscence (12/23/15) Prerenal azotemia Primary osteoarthritis of left hip (09/17/15) Pulmonary hypertension Renal impairment (07/11/03) ADRENAL MASS. F/U W/ KINLAW positive microalbumin Restless leg syndrome Rotator cuff syndrome (08/01/09) Seizure Shingles Smoker (06/30/16) 01/17/17 1-2 cig/wk SOB (shortness of breath) Spinal stenosis of lumbar region (02/15/16) Spinal stenosis of lumbar region at multiple levels Tarsal tunnel syndrome 06/11/13 Tarsal tunnel syndrome (06/11/13) Trochanteric bursitis 03/18/13 Upper respiratory tract infection (08/03/15) UTI (urinary tract infection) Vaginal atrophy Vitamin D deficiency Vitamin D deficiency Weakness Surgical History Arthrodesis right 2nd toe Cataract (01/07/14) FOLLOWED BY OPTICAL EXPRESSIONS cervical repair (~10/2008) C6-C7 DISK; RECURRENT SURGERY Cholecystectomy (07/31/13) Endometrial Biopsy NEG H/O arthrodesis right second toe H/O Spinal surgery multiple spine surgeries; low back x 2; She had multilevel DJD and spinal stenosis; disc herniation. 2009-cervical repair; C6-C7 disc; recurrent surgery. History of bilateral tubal ligation 09/11/80 History of gynecologic surgery endometrial biopsy-neg History of hip surgery 11/10/15 left hip arthroplasty 12/04/15-placement of wound VAC to left hip History of orthopedic surgery 09/11/97 tarsal tunnel release Left eye surgery 12/31/17 Ligation of fallopian tube (~1980) Open Carpal Tunnel release Right wrist surgery 10/26/17 Rotator Cuff Repair (~1980) S/P CABG (coronary artery bypass graft) (01/03/19) 4 vessel CABG [place] [facility] [place] S/P carpal tunnel release S/P cholecystectomy 09/11/12 S/P rotator cuff repair 09/11/80 SPINE SURGERY Multiple spine surgeries, low back x 2. She had multilevel DJD and spinal stenosis, disc herniation Status post incision and drainage 12/04/15 left hip surgical wound dehiscence and infection tarsal tunnel release (~1997) Total replacement of hip [facility]; LEFT HIP Social History/Home Situation: Independent with all mobility ADLs using the front-wheeled walker. Has had repeated falls the past month. Equipment Owned/DME: [employer] Subjective: Reports feeling a lot better and feels a lot more secure doing her transfers from bed and to chair. Agreeable to continuing services with PT at suggested frequency. States that sometimes in standing she puts her toes down, otherwise the walker tips over and she feels a lot unsteady. Reports 2-3/10 at rest and 5-6/10 with transfers. Reports that intermittent spasms accompanied by pain still limit her mobility performance. Objective: General Observation: Seated on chair. R ankle in short leg AO splint covered with MARTIR wraps. Mental Status: Alert and oriented as to person, place, time, and purpose. Pain: 2-3/10 at rest, 5-6/10 with transfers ROM: Right Upper Extremity: Shoulder Flexion WFL. Shoulder abduction WFL. Elbow flexion WFL. Wrist flexion WFL. Functional opening and closing of hand WFL. Left Upper Extremity: Shoulder Flexion WFL. Shoulder abduction WFL. Elbow flexion WFL. Wrist flexion WFL. Functional opening and closing of hand WFL. Right Lower Extremity: Hip flexion about 50% of active ROM due to pain and intermittent spasms. Hip abduction less than 50% of active ROM. Knee flexion WFL. Knee extension -10 degrees. Ankle dorsiflexion unable. Ankle plantarflexion unable. Left Lower Extremity: Hip flexion WFL. Hip abduction WFL. Knee flexion WFL. Ankle dorsiflexion WFL. Ankle plantarflexion WFL. Strength: Right Upper Extremity: Shoulder flexors 4/5. Shoulder abductors 4/5. Elbow flexors 4/5. Elbow extensors 4/5. 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 Left Upper Extremity: Shoulder flexors 4/5. Shoulder abductors 4/5. Elbow flexors 4/5. Elbow extensors 4/5. 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 Right Lower Extremity: Hip flexors 3-/5. Hip abductors 3-/5. Knee flexors 3-/5. Knee extensors 3-/5. Ankle dorsiflexors 0/5. Ankle plantarflexors 0/5. Left Lower Extremity: Hip flexors 4-/5. Hip abductors 4-/5. Knee flexors 4-/5. Knee extensors 4-/5. Ankle dorsiflexors 4-/5. Ankle plantarflexors 4-/5. Bed Mobility/Transfers: Sit to stand independent Stand to sit independent Gait: Patient is able to tolerate up to 5 steps with NWB on L LE using the bariatric FWW with supervision. Balance: Sitting static:Normal Sitting dynamic: Good Standing static: Unable Standing dynamic: Unable Special Tests: Mobility Limitations Standardized Measure [facility] AM-PAC 6 clicks Basic Mobility Inpatient Short Form: Raw Score: 20 CMS Score: 36% deficit Informed Consent/Education: Patient was instructed in purpose of PT consult and plan of care. Agreeable to proceed with established PT POC to achieve personal goals. Assessment: Patient remains NWB on R LE until October 21, 2021 and will need to transition to less than 50% WB beginning October 22, 2021 per orthopod's order. Patient will require continued services 3x/week for 2 weeks for B UE/LE strengthening in anticipation of weight bearing progression to reduce fall risk. Patient presents with clinical signs and symptoms consistent with current/admitting diagnoses that have resulted to mobility limitations, gait instability, generalized weakness, and overall ADL decline as demonstrated by the following impairment level findings: 1. Decreased strength to B UE/LE 2. Impaired activity tolerance 3. Limitation of joint range of motion in R LE joints 4. Pain in R ankle and foot at 5-6/10 5. Intermittent spasms in R LE 6. NWB on R LE Impairments are contributing to the following functional limitations: 1. Decline in bed mobility skills 2. Decline in transfer skills 3. Unable to ambulate 4. Increased completion time for mobility ADL performance 5. Increased risk for falls 6. Inability to thrive at home Patient is assessed as a 36858 high complexity based on the following: History: 70-year-old female with past medical history as indicated above Examination: Demonstrable impairment in strength, balance, and mobility level with underlying impairments and functional limitations as exhibited above as well as deficit score of 100% utilizing the [facility] Mobility Inpatient Short Form Presentation: Unstable Decision Makin high complexity Goals: Goals X1 week 1. Patient will demonstrate 100% mastery of open chain exercises to increase B UE and LE strength in anticipation of WB progression after two weeks. 2. Patient will demonstrate modified independent with use of bariatric FWW for all transfer task performance to reduce fall risk. Plan of Care/Treatment Plan: 1x/day, 3 days/week x 2 weeks. Plan of care has been reviewed with the ACCESS SERVICES ASSISTANT providing the service under Physical Therapy direction. Initiate Physical Therapy intervention for pain management as needed, strengthening, bed mobility, transfers, gait, stairs, balance training, and use of assistive device. DISCHARGE RECOMMENDATIONS: [] Home with no services [] [] Home with services [specify] [] Home with outpatient PT [] [X] SNF for continued rehabilitation. Discharge to SNF when medically cleared by hospitalist. Patient will benefit from jail facility placement for continued skilled physical therapy services in order to progress mobility level, strength, and balance in preparation for a safe discharge to home. [] General Manager [employer] Care [] [] SNF versus LTC based on ability to participate and progress [] TREATMENT CODE/TIME: 92839 x 24 minutes beginning at 15:25 PM. Thank you for the opportunity to participate in the care of this patient. Kathryn Sainz PT, DPT, CLT [facility] [place], [place]
[2021-10-13] MEDS: Isosorbide Mononitrate 10 MG TAB PO (15:36)
[2021-10-13] MEDS: Naproxen 500 MG TAB PO (15:52)
[2021-10-13] MEDS: Methocarbamol 750 MG TAB 1500 MG PO ×2 (15:52→20:11)
[2021-10-13] MEDS: Insulin Aspart 300 UNITS/3 ML PEN SC (17:00)
--- NOTE | 2021-10-13 17:11 | CMPROGNOTE_ITS ---
- If Service Date Differs Date of service: 10/13/21 Time of Service: 17:11 Care Management Progress Note S/O: Bibi was sitting up in her chair when CM met with her. She continues to improve, working with PT to strengthen and increase mobility with transfers. Her work with PT is limited by her injury at this time, but she is compliant with recommendations for exercises and is motivated to do well in order to return home as soon as she is able. Her plan has been to transfer to the [facility], but they are currently closed to admissions due to COVID, and will likely not reopen until next week, therefore she will be transitioned to SW[facility] 1 today. Her anticipated discharge will be by the end of next week, when the [facility] is open to admissions. CM reviewed the SWB packet with Bibi and answered any questions/concerns. She is agreeable to the plan. CM will continue to follow. A: Ann-Marie is a 70 year old female admitted to [facility] on 10/03/21 for R Ankle fx. P: Anticipate Bibi will go to SNF post surgically, once she is medically cleared. She has been accepted at the [facility], but the facility is currently closed to admissions, so she will transition to SW while waiting for a bed to become available. She will transport via w/c van vs EMS, depending on mobility at time of discharge. She will follow up with her PCP and discharge plan of care. CM will continue to follow.
--- NOTE | 2021-10-13 17:13 | CM.SWINGPC ---
- If Service Date Differs Date of service: 10/13/21 Time of Service: 17:13 Swingbed Plan of Care Plan of care: SWING BED PROGRAM ACTIVITIES/DISCHARGE PLAN OF CARE ACTIVITIES PLAN Date: 10/13/21 Identified Need: Individual plan for life enrichment during SWB admission. Intervention/Plan: Bibi loves to crotchet, and is working on a quilt daily. She has an adult coloring book, word search and colored pencils to keep her busy, as well as TV, which she watches often. She also listens to music on her phone occasionally. Initials KM DISCHARGE PLAN Date: 10/13/21 Identified Need: Strengthening and independence with mobility and transfers. Intervention/Plan: Bibi will work with PT regularly, although her mobility is severely limited due to her injury. She is waiting for a bed to become available at the [facility], where she will complete her rehab prior to returning home. Initials CHELO
--- NOTE | 2021-10-13 17:16 | CM.SBPSYCH ---
- If Service Date Differs Date of service: 10/13/21 Time of Service: 17:17 SB Psychosocial/Act.Assessment - Hospital Admission Admission Date: 10/03/21 Admission From:: Home Diagnosis:: Rt Ankle fracture - Swing Bed Admission Swing Bed Admit Date:: 10/13/21 Swing Bed Level of Care: Level 1/SNF - Social Supports PREVIOUS FUNCTIONAL STATUS/SOCIAL/FAMILY SUPPORTS:: Ann-Marie resides in [place] with a friend who was recently . She is and has four adult children. Ann-Marie spends her time at home watching television, crocheting, baking, and shares her dog rarely leaves her side when she is home. 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 Her daughter, Elli, helps to care for her at home. Previous to this admission, she only required assistance with bathing. - Prior to Admission Living Arrangements/Environment Prior to Admission:: Bibi lives with a friend in [place], which is mostly on one level, with three/four small steps to get in the house. Her bedroom was moved to the main level to avoid the use of stairs. Her friend is supportive, as well as her daughters. - Education Highest Grade Completed:: 12th, High School degree Where did you attend School:: [employer] - Work History Employment Status:: Retired [employer]:: [employer] - : No Bono's Spouse: No - Benefits Financial: Social Security, Other Pension ([employer], $117/mo), Medicare, Medicaid - Holiness Active Islam Member:: Yes Islam Affliation: Pam Roberts Islam Will Islam Members or Warehouse Shift Supervisor Visit:: No - Advance Directives for Healthcare Advance Directives for Healthcare: Advance Directives Advance Directive Agent: wolf Alvarez - Interests Hobbies:: cooking/baking Crafts:: Crocheting Sports:: swimming TV/Movies:: tv/movies Gardening:: gardening in spring/summer - Present Functional Status Physical Abilities:: limited due to injury Cognitive:: intact, AOx3 Communication:: clear, appropriate Sensory Systems: within normal limits Behavior:: cooperative, pleasant - Medical History PAST MEDICAL HISTORY/PAST SURGICAL HISTORY:: All Active Problems. Essential hypertension (Chronic 06/13/13). Diabetes mellitus (Chronic 09/20/10). DVT prophylaxis (Acute). CAD (coronary artery disease), [place] coronary artery (Chronic). Closed bimalleolar fracture of right ankle (Acute). Closed avulsion fracture of condyle of right femur (Acute). Cyst of lateral meniscus of right knee (Acute). Tear of lateral meniscus of right knee (Acute). Medial meniscus tear (Acute). Wound abscess (Acute). Discharge planning issues (Acute). Medical History. Abnormal mammography. 08/10/06. Acute kidney injury superimposed on chronic kidney disease. Ycewf-mx-axcnyer kidney injury. Altered mental status. Anemia. Ankle pain (03/13/14). Annual physical exam (12/14/15). Atrial fibrillation. Atrial flutter. BMI 40.0-44.9, adult (12/02/14). CAD (coronary artery disease), [place] coronary artery. Carpal tunnel syndrome. Carpal tunnel syndrome (08/10/06). BILATERAL. R S/P SURGERY. Cervical disc disorder with myelopathy (08/21/08). S/P surgery x 2. Cervical spondylosis with myelopathy. Chest pain. Neg Stress test. CHF (congestive heart failure). Chronic obstructive lung disease. CKD (chronic kidney disease) stage 3, GFR 30-59 ml/min. Cr about 2.5. CKD stage 4 due to type 2 diabetes mellitus. Congestive heart failure. Constipation. Dehydration. Diabetes mellitus. 09/20/10 Positive Microalbumin. Diastolic CHF. DNR no code (do not resuscitate). DVT (deep venous thrombosis). Dysuria. Essential hypertension. Folate deficiency (02/15/16). Gout. Gout (07/06/11). Gram-positive bacteremia. Greater trochanteric bursitis of left hip. Hammer toe. Left/right. HAP (hospital-acquired pneumonia) (01/15/19). HCAP (healthcare-associated pneumonia). Heart failure with preserved ejection fraction, borderline, class III. Hepatomegaly. 06/10/04. Hip joint inflamed (09/03/15). Hip pain, left. Hip pain, right. Hyperglycemia. Hyperlipidemia (08/10/00). Hypertension. Hypomagnesemia. Hypoxia. IDDM (insulin dependent diabetes mellitus). Left hip pain. Low back pain (04/10/03). DISC HERNIATION L4. MULTILEVEL DJD/SPINAL STENOSIS BY MRI; S/P surgery. Lump in neck. Macrocytic anemia. Menopausal syndrome. 07/11/03. Multiple falls. Muscle fatigue. 03/04/13. Myoclonic epileptic seizures. Numbness and tingling in left upper extremity. Palliative care patient. Pancreatic atrophy. Posterior tibial tendon dysfunction. 02/03/16. Postmenopausal bleeding. neg. endometrial biopsy. Postoperative wound dehiscence (12/23/15). Prerenal azotemia. Primary osteoarthritis of left hip (09/17/15). Pulmonary hypertension. Renal impairment (07/11/03). ADRENAL MASS. F/U W/ KINLAW. positive microalbumin. Restless leg syndrome. Rotator cuff syndrome (08/01/09). Seizure. Shingles. Smoker (06/30/16). 01/17/17 1-2 cig/wk. SOB (shortness of breath). Spinal stenosis of lumbar region (02/15/16). Spinal stenosis of lumbar region at multiple levels. Tarsal tunnel syndrome. 06/11/13. Tarsal tunnel syndrome (06/11/13). Trochanteric bursitis. 03/18/13. Upper respiratory tract infection (08/03/15). UTI (urinary tract infection). Vaginal atrophy. Vitamin D deficiency. Vitamin D deficiency. Weakness. Surgical History. Arthrodesis. right 2nd toe. Cataract (01/07/14). FOLLOWED BY OPTICAL EXPRESSIONS. cervical repair (~10/2008). C6-C7 DISK; RECURRENT SURGERY. Cholecystectomy (07/31/13). Endometrial Biopsy. NEG. H/O arthrodesis. right second toe. H/O Spinal surgery. multiple spine surgeries; low back x 2; She had multilevel DJD and spinal stenosis; disc herniation. 2008-cervical repair; C6-C7 disc; recurrent surgery. History of bilateral tubal ligation. 09/11/80. History of gynecologic surgery. endometrial biopsy-neg. History of hip surgery. 11/10/15 left hip arthroplasty 12/04/15-placement of wound VAC to left hip. History of orthopedic surgery. 09/11/97 tarsal tunnel release. Left eye surgery. 12/31/17. Ligation of fallopian tube (~1980). Open Carpal Tunnel release. Right wrist surgery. 10/26/17. Rotator Cuff Repair (~1980). S/P CABG (coronary artery bypass graft) (01/03/19). 4 vessel CABG and LA appendage excision, Dr. Nav Wang, [facility] [place], [place], [place] S/P carpal tunnel release. S/P cholecystectomy. 09/11/12. S/P rotator cuff repair. 09/11/80. SPINE SURGERY. Multiple spine surgeries, low back x 2. She had multilevel DJD and spinal stenosis, disc herniation. Status post incision and drainage. 12/04/15 left hip surgical wound dehiscence and infection. tarsal tunnel release (~1997). Total replacement of hip. [facility]; LEFT HIP - Admission Data Reason for Swing Bed Admission:: Continue working with PT, waiting for SNF bed to open to admissions at the [facility]. Discharge Plan:: Bibi will transfer to the [facility] once they are open to admissions, currently closed due to COVID. She will continue her short term rehab while her mobility is strictly limited, then she will return home with services. Assessment: Bibi will continue to work with PT, waiting on placement at the [facility], where she will complete her short term rehab before returning home. Her mobility is limited due to her injury, but she is compliant with exercise and working with PT well, as she is motivated to return home as soon as she is able. Clinical Project Coordinator: Odessa Oshea Date Assessment was completed:: 10/13/21
[2021-10-13] MEDS: levETIRAcetam 500 MG TAB PO (19:48)
[2021-10-13] MEDS: Gabapentin 100 MG CAP PO (19:48)
[2021-10-13] MEDS: Omeprazole 20 MG CAPCR 40 MG PO (19:49)
[2021-10-13] MEDS: Normal Saline Flush 10 ML SYR IVP (19:49)
[2021-10-13] MEDS: Potassium Chloride 20 MEQ TABCR 40 MEQ PO (19:49)
[2021-10-13] MEDS: Creon, Lipase 6,000 CAPCR 1 CAP PO (19:49)
[2021-10-13] MEDS: Nystatin POWDER 60 GM JAR TP (19:50)
[2021-10-13] MEDS: Zolpidem 5 MG TAB PO (21:13)
[2021-10-13] MEDS: rOPINIRole 1 MG TAB 2 MG PO (21:13)
[2021-10-13] MEDS: Magnesium Chloride 64 MG TABCR PO (21:13)
[2021-10-13] MEDS: Insulin Glargine 300 UNITS/3 ML PEN 35 UNITS SC (21:14)
[2021-10-14 07:35] VITALS: BP 113/69; PULSE 58; RESP 16; TEMP 36; O2SAT 100
[2021-10-14] MEDS: Normal Saline Flush 10 ML SYR IVP (08:02)
[2021-10-14] MEDS: Aspirin E.C. 81 MG TABEC PO (08:02)
[2021-10-14] MEDS: DULoxetine 30 MG CAP 60 MG PO (08:03)
[2021-10-14] MEDS: Omeprazole 20 MG CAPCR 40 MG PO ×2 (08:03→20:53)
[2021-10-14] MEDS: Creon, Lipase 6,000 CAPCR 1 CAP PO ×3 (08:03→20:53)
[2021-10-14] MEDS: Isosorbide Mononitrate 10 MG TAB PO ×2 (08:03→15:45)
[2021-10-14] MEDS: Metoprolol CR 100 MG TABCR PO (08:04)
[2021-10-14] MEDS: Naproxen 500 MG TAB PO (08:04)
[2021-10-14] MEDS: Gabapentin 100 MG CAP PO ×3 (08:04→20:53)
[2021-10-14] MEDS: Potassium Chloride 20 MEQ TABCR 40 MEQ PO ×2 (08:04→20:53)
[2021-10-14] MEDS: Atorvastatin 40 MG TAB PO (08:05)
[2021-10-14] MEDS: levETIRAcetam 500 MG TAB PO ×2 (08:05→20:53)
[2021-10-14] MEDS: Allopurinol 100 MG TAB PO (08:05)
[2021-10-14] MEDS: Torsemide 100 MG TAB PO (08:05)
[2021-10-14] MEDS: Insulin Glargine 300 UNITS/3 ML PEN 35 UNITS SC ×2 (08:07→20:51)
[2021-10-14] MEDS: Umeclidinium 7 CAP INHALER 1 CAP IH (08:09)
--- NOTE | 2021-10-14 08:10 | RESPIRATORY ---
PT ON 2L NC
[2021-10-14] MEDS: Magnesium Chloride 64 MG TABCR PO ×2 (10:40→21:06)
[2021-10-14] MEDS: Enoxaparin 30 MG/0.3 ML SYR SC (10:40)
[2021-10-14] MEDS: Acetaminophen 500 MG TAB 1000 MG PO (14:00)
[2021-10-14] MEDS: traMADol 50 MG TAB PO (14:00)
[2021-10-14 15:46] VITALS: BP 123/61; PULSE 57; RESP 16; TEMP 36.4; O2SAT 97
--- NOTE | 2021-10-14 16:44 | CHAPLAIN ---
Megan was in the chair crodeepa when I visited. I was able to give her some more yarn that we have that isn't being used for prayer shawls. Today Megan's concern is that she's being treated differently on swing bed than she was a regular patient. She said last night she rang her call lambert at 3 a.m. for assistance to the bathroom and she wet the bed before someone came to her room 45 minutes later. She said that a nurse told here you're not the only patient I have.
[2021-10-14] MEDS: Insulin Aspart 300 UNITS/3 ML PEN SC (16:56)
[2021-10-14] MEDS: Methocarbamol 750 MG TAB 1500 MG PO (18:03)
[2021-10-14] MEDS: Nystatin POWDER 60 GM JAR TP (20:55)
[2021-10-14] MEDS: rOPINIRole 1 MG TAB 2 MG PO (21:06)
[2021-10-14] MEDS: Zolpidem 5 MG TAB PO (21:06)
[2021-10-14 21:25] VITALS: BP 116/56; PULSE 65; RESP 18; TEMP 36.2; O2SAT 98
[2021-10-15 08:00] VITALS: BP 143/70; PULSE 68; RESP 21; TEMP 36.3; O2SAT 96
[2021-10-15] MEDS: Umeclidinium 7 CAP INHALER 1 CAP IH (09:16)
[2021-10-15] MEDS: Nystatin POWDER 60 GM JAR TP ×2 (09:16→20:04)
[2021-10-15] MEDS: Enoxaparin 30 MG/0.3 ML SYR SC (09:16)
[2021-10-15] MEDS: levETIRAcetam 500 MG TAB PO ×2 (09:17→20:03)
[2021-10-15] MEDS: Isosorbide Mononitrate 10 MG TAB PO ×2 (09:17→14:14)
[2021-10-15] MEDS: Insulin Glargine 300 UNITS/3 ML PEN 35 UNITS SC ×2 (09:17→20:06)
[2021-10-15] MEDS: Torsemide 100 MG TAB PO (09:17)
[2021-10-15] MEDS: DULoxetine 30 MG CAP 60 MG PO (09:18)
[2021-10-15] MEDS: Atorvastatin 40 MG TAB PO (09:18)
[2021-10-15] MEDS: Magnesium Chloride 64 MG TABCR PO ×2 (09:19→21:44)
[2021-10-15] MEDS: Potassium Chloride 20 MEQ TABCR 40 MEQ PO ×2 (09:19→20:03)
[2021-10-15] MEDS: Aspirin E.C. 81 MG TABEC PO (09:19)
[2021-10-15] MEDS: Metoprolol CR 100 MG TABCR PO (09:19)
[2021-10-15] MEDS: Creon, Lipase 6,000 CAPCR 1 CAP PO ×3 (09:19→20:03)
[2021-10-15] MEDS: Omeprazole 20 MG CAPCR 40 MG PO ×2 (09:19→20:03)
[2021-10-15] MEDS: Allopurinol 100 MG TAB PO (09:20)
[2021-10-15] MEDS: Gabapentin 100 MG CAP PO ×3 (09:20→20:03)
[2021-10-15] MEDS: traMADol 50 MG TAB PO ×2 (09:22→20:20)
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
[2021-10-15] MEDS: Normal Saline Flush 10 ML SYR IVP (14:18)
[2021-10-15] MEDS: rOPINIRole 1 MG TAB 2 MG PO (21:44)
[2021-10-15] MEDS: Zolpidem 5 MG TAB PO (21:44)
[2021-10-16 07:36] VITALS: BP 108/69; PULSE 57; RESP 16; TEMP 36.1; O2SAT 97
[2021-10-16] MEDS: Umeclidinium 7 CAP INHALER 1 CAP IH (08:19)
[2021-10-16] MEDS: Insulin Glargine 300 UNITS/3 ML PEN 35 UNITS SC ×2 (08:19→20:12)
[2021-10-16] MEDS: Torsemide 100 MG TAB PO (08:20)
[2021-10-16] MEDS: Isosorbide Mononitrate 10 MG TAB PO ×2 (08:20→14:12)
[2021-10-16] MEDS: Nystatin POWDER 60 GM JAR TP ×2 (08:20→21:22)
[2021-10-16] MEDS: levETIRAcetam 500 MG TAB PO ×2 (08:20→20:18)
[2021-10-16] MEDS: Creon, Lipase 6,000 CAPCR 1 CAP PO ×3 (08:21→20:16)
[2021-10-16] MEDS: Allopurinol 100 MG TAB PO (08:21)
[2021-10-16] MEDS: Metoprolol CR 100 MG TABCR PO (08:21)
[2021-10-16] MEDS: Gabapentin 100 MG CAP PO ×3 (08:21→20:16)
[2021-10-16] MEDS: DULoxetine 30 MG CAP 60 MG PO (08:21)
[2021-10-16] MEDS: Omeprazole 20 MG CAPCR 40 MG PO ×2 (08:21→20:16)
[2021-10-16] MEDS: Aspirin E.C. 81 MG TABEC PO (08:21)
[2021-10-16] MEDS: Atorvastatin 40 MG TAB PO (08:22)
[2021-10-16] MEDS: Potassium Chloride 20 MEQ TABCR 40 MEQ PO ×2 (08:22→20:16)
[2021-10-16] MEDS: traMADol 50 MG TAB PO ×3 (08:23→20:19)
[2021-10-16] MEDS: Normal Saline Flush 10 ML SYR IVP ×2 (08:24→21:23)
[2021-10-16] MEDS: Magnesium Chloride 64 MG TABCR PO ×2 (10:12→21:22)
[2021-10-16] MEDS: Enoxaparin 30 MG/0.3 ML SYR SC (10:12)
[2021-10-16] MEDS: Zolpidem 5 MG TAB PO (21:22)
[2021-10-16] MEDS: rOPINIRole 1 MG TAB 2 MG PO (21:22)
[2021-10-16 23:48] VITALS: BP 121/56; PULSE 56; RESP 16; TEMP 36.3; O2SAT 98
[2021-10-17] MEDS: Insulin Glargine 300 UNITS/3 ML PEN 35 UNITS SC ×2 (08:21→21:22)
[2021-10-17] MEDS: Umeclidinium 7 CAP INHALER 1 CAP IH (08:22)
[2021-10-17] MEDS: Metoprolol CR 100 MG TABCR PO (08:23)
[2021-10-17] MEDS: Potassium Chloride 20 MEQ TABCR 40 MEQ PO ×2 (08:23→21:21)
[2021-10-17] MEDS: Aspirin E.C. 81 MG TABEC PO (08:24)
[2021-10-17] MEDS: Nystatin POWDER 60 GM JAR TP ×2 (08:24→21:30)
[2021-10-17] MEDS: levETIRAcetam 500 MG TAB PO ×2 (08:24→21:19)
[2021-10-17] MEDS: Torsemide 100 MG TAB PO (08:24)
[2021-10-17] MEDS: Atorvastatin 40 MG TAB PO (08:24)
[2021-10-17] MEDS: Isosorbide Mononitrate 10 MG TAB PO ×2 (08:25→14:33)
[2021-10-17] MEDS: Omeprazole 20 MG CAPCR 40 MG PO ×2 (08:25→21:18)
[2021-10-17] MEDS: DULoxetine 30 MG CAP 60 MG PO (08:25)
[2021-10-17] MEDS: Allopurinol 100 MG TAB PO (08:25)
[2021-10-17] MEDS: Gabapentin 100 MG CAP PO ×3 (08:25→21:20)
[2021-10-17] MEDS: Creon, Lipase 6,000 CAPCR 1 CAP PO ×3 (08:26→21:20)
[2021-10-17] MEDS: Magnesium Chloride 64 MG TABCR PO ×2 (09:38→21:20)
[2021-10-17] MEDS: Enoxaparin 30 MG/0.3 ML SYR SC (09:39)
--- NOTE | 2021-10-17 09:42 | NUR.NOTE ---
patient was rinsing mouth after inhalers. She gives good return demonstration. Nursing Note:
[2021-10-17] MEDS: traMADol 50 MG TAB PO (13:07)
[2021-10-17 15:18] VITALS: BP 108/68; PULSE 60; RESP 20; TEMP 36.2; O2SAT 99
[2021-10-17] MEDS: Normal Saline Flush 10 ML SYR IVP (16:44)
[2021-10-17] MEDS: Insulin Aspart 300 UNITS/3 ML PEN SC (16:51)
[2021-10-17] MEDS: Zolpidem 5 MG TAB PO (21:20)
[2021-10-17] MEDS: rOPINIRole 1 MG TAB 2 MG PO (21:21)
[2021-10-18] MEDS: Normal Saline Flush 10 ML SYR IVP (07:38)
[2021-10-18] MEDS: Allopurinol 100 MG TAB PO (07:39)
[2021-10-18] MEDS: Nystatin POWDER 60 GM JAR TP (07:39)
[2021-10-18] MEDS: Gabapentin 100 MG CAP PO ×3 (07:39→21:09)
[2021-10-18] MEDS: Umeclidinium 7 CAP INHALER 1 CAP IH (07:39)
[2021-10-18] MEDS: Isosorbide Mononitrate 10 MG TAB PO ×2 (07:40→14:36)
[2021-10-18] MEDS: DULoxetine 30 MG CAP 60 MG PO (07:40)
[2021-10-18] MEDS: Torsemide 100 MG TAB PO (07:40)
[2021-10-18] MEDS: Omeprazole 20 MG CAPCR 40 MG PO ×2 (07:40→21:09)
[2021-10-18] MEDS: Metoprolol CR 100 MG TABCR PO (07:40)
[2021-10-18] MEDS: Creon, Lipase 6,000 CAPCR 1 CAP PO ×3 (07:41→21:09)
[2021-10-18] MEDS: Acetaminophen 500 MG TAB 1000 MG PO (07:41)
[2021-10-18] MEDS: levETIRAcetam 500 MG TAB PO ×2 (07:41→21:09)
[2021-10-18] MEDS: Potassium Chloride 20 MEQ TABCR 40 MEQ PO ×2 (07:41→21:09)
[2021-10-18] MEDS: Atorvastatin 40 MG TAB PO (07:41)
[2021-10-18] MEDS: Aspirin E.C. 81 MG TABEC PO (07:42)
[2021-10-18 08:58] VITALS: BP 109/69; PULSE 56; RESP 18; TEMP 36.2; O2SAT 98
[2021-10-18] MEDS: Magnesium Chloride 64 MG TABCR PO ×2 (09:51→21:09)
[2021-10-18] MEDS: Enoxaparin 30 MG/0.3 ML SYR SC (09:51)
[2021-10-18] MEDS: traMADol 50 MG TAB PO (13:30)
--- NOTE | 2021-10-18 14:30 | PCPN_ITS ---
Date of service: 10/18/21 Time of Service: 14:30 Assessment and Plan Assessment and plan (1) CHF (congestive heart failure): Qualifiers: Heart failure type: diastolic Heart failure chronicity: chronic Qualified Code(s): I50.32 - Chronic diastolic (congestive) heart failure (2) Chronic obstructive lung disease: Qualifiers: COPD type: COPD with acute lower respiratory infection Qualified Code(s): J44.0 - Chronic obstructive pulmonary disease with acute lower respiratory infection (3) CKD stage 4 due to type 2 diabetes mellitus: (4) Closed bimalleolar fracture of right ankle: Qualifiers: Encounter type: initial encounter Qualified Code(s): S82.841A - Displaced bimalleolar fracture of right lower leg, initial encounter for closed fracture (5) Diabetes mellitus: (6) Essential hypertension: (7) Palliative care patient: Assessment and plan: Megan is anxious to get to the [facility]. She would like to get settled. She is doing very well regarding her chronic congestive heart failure. She certainly has less edema in her left leg than I have seen in years. COPD -stable Diabetes she should have regular fingersticks probably fasting daily. Continue on her diabetic meds. Orthopedic dysfunction?physical therapy and OT would be helpful Hypertension stable She has a DNR/DNI I will continue to follow Megan when she moves to the [facility]. Subjective Subjective Interval history since last seen: Megan is a 70-year-old woman who has significant cardiac issues as well as morbid obesity. She had fallen recently and had injured her right knee. Including a fracture to the patella. Unfortunately soon after this she fractured her right ankle. At this point she is immobile due to her orthopedic issues. She is hoping to go to the [facility] soon for rehab. Unfortunately due to a Covid outbreak this has been delayed. She is on swing bed in the hospital until that can happen. She admits that she is quite bored and is anxious to get to the [facility]. She has been working some with physical therapy. She also has been doing her quilt making which at least occupies her but she admits that she is quite bored. Unfortunately family has not been able to come to see her because of not being vaccinated. Exam Narrative Exam Narrative: Megan is sitting up in bed. She is cooperative and congenial. Her heart is regular rate with loud murmur. She has actually fairly good lung sounds although somewhat diminished at the bases. Her abdomen is nontender. Her right leg is in a supportive dressing. Her left leg is the skin he is to have ever seen it. She has no edema in that leg. I did not check for sacral edema since she is spending much of her time lying down. Objective Last Vital Signs Temp 97.2 F L 10/18/21 08:58 Pulse 56 L 10/18/21 08:58 Resp 18 10/18/21 08:58 BP 109/69 10/18/21 08:58 Pulse Ox 98 10/18/21 08:58
[2021-10-18] MEDS: Naproxen 500 MG TAB PO (14:36)
--- NOTE | 2021-10-18 15:25 | PT.INTREAT ---
Date of service: 10/18/21 Time of Service: 09:05 PT Notes Visit Reasons: Right Ankle Fracture Swing Bed Level I Physical Therapy Treatment Note Date: 10/18/2021 Precautions: Per orthopod: NWB on R LE with AD for 2 weeks followed by protected weight bearing (less than 50%) x 4 weeks. No knee restrictions. Premedicate for pain beofre session. Fall. Standard. Subjective: Complained of dizziness when she sat at edge of bed for this session, resolved after intake of apple cjuice provided to her by PT. She states that her sugar level has been low. Nurse and MD aware. Objective: General Observation: Supine in bed. R ankle in short leg AO splint covered with MARTIR wraps. Mental Status: Alert and oriented as to person, place, time, and purpose. Pain: 2-3/10 at rest, 5-6/10 with transfers Bed Mobility/Transfers: Sit to stand independent Stand to sit independent Gait: Patient is able to tolerate up to 8 steps with using the bariatric FWW with supervision. Not fully compliant of WB precaution as toes touch the floor because according to her fully bending at the knee and suspending the foot up in the air makes her unstable while using FWW.. She staest that putting her toes prevents her from using the walker efficiently. Balance: Sitting static: Normal Sitting dynamic: Good Standing static: Unable Standing dynamic: Unable THERA ACT: Worked on increasing B UE strength performing chair push ups while on bedside recliner x 5 reps with report of fatigue. Assessment: Due to body habitus, strict NWB on the R LE imposes much stress on patient's B UE and L LE making her feeling so unstable. Patient did verbalize that there is no increase in pain when she puts her toes for balance with each step of on the L. Patient to start PWB (less than 50%) beginning 10/22/2021. DISCHARGE RECOMMENDATIONS: [] Home with no services [] [] Home with services [specify] [] Home with outpatient PT [] [X] SNF for continued rehabilitation. Discharge to SNF when medically cleared by hospitalist. Patient will benefit from retirement facility placement for continued skilled physical therapy services in order to progress mobility level, strength, and balance in preparation for a safe discharge to home. [] Long-Term Care [] [] SNF versus LTC based on ability to participate and progress [] TREATMENT CODE/TIME: 14024 x 24 minutes beginning at 15:25 PM.
[2021-10-18] MEDS: Insulin Aspart 300 UNITS/3 ML PEN SC (17:34)
[2021-10-18] MEDS: rOPINIRole 1 MG TAB 2 MG PO (21:09)
[2021-10-18] MEDS: Zolpidem 5 MG TAB PO (21:09)
[2021-10-18] MEDS: Insulin Glargine 300 UNITS/3 ML PEN 20 UNITS SC (21:10)
[2021-10-19] MEDS: traMADol 50 MG TAB PO ×2 (06:14→13:50)
[2021-10-19] MEDS: Umeclidinium 7 CAP INHALER 1 CAP IH (08:29)
[2021-10-19 08:32] VITALS: PULSE 58; O2SAT 98
[2021-10-19] MEDS: Allopurinol 100 MG TAB PO (09:15)
[2021-10-19] MEDS: Atorvastatin 40 MG TAB PO (09:16)
[2021-10-19] MEDS: DULoxetine 30 MG CAP 60 MG PO (09:16)
[2021-10-19] MEDS: Omeprazole 20 MG CAPCR 40 MG PO ×2 (09:16→20:48)
[2021-10-19] MEDS: levETIRAcetam 500 MG TAB PO ×2 (09:16→20:48)
[2021-10-19] MEDS: Gabapentin 100 MG CAP PO ×3 (09:16→20:49)
[2021-10-19] MEDS: Creon, Lipase 6,000 CAPCR 1 CAP PO ×3 (09:16→20:49)
[2021-10-19] MEDS: Aspirin E.C. 81 MG TABEC PO (09:17)
[2021-10-19] MEDS: Normal Saline Flush 10 ML SYR 500 ML IV (09:17)
[2021-10-19] MEDS: Nystatin POWDER 60 GM JAR TP ×3 (09:24→20:50)
[2021-10-19 09:47] VITALS: BP 110/58; PULSE 64
[2021-10-19] MEDS: Potassium Chloride 20 MEQ TABCR 40 MEQ PO ×2 (09:54→20:49)
[2021-10-19] MEDS: Isosorbide Mononitrate 10 MG TAB PO (09:55)
[2021-10-19] MEDS: Torsemide 100 MG TAB PO (09:55)
[2021-10-19] MEDS: Magnesium Chloride 64 MG TABCR PO ×2 (09:55→21:54)
[2021-10-19] MEDS: Enoxaparin 30 MG/0.3 ML SYR SC (09:55)
[2021-10-19] MEDS: Metoprolol CR 100 MG TABCR PO (09:55)
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
[2021-10-19 15:43] VITALS: BP 122/57; PULSE 62; RESP 16; TEMP 37.4; O2SAT 96
[2021-10-19 17:56] VITALS: BP 98/64; PULSE 66
[2021-10-19] MEDS: Normal Saline Flush 10 ML SYR IVP (20:47)
[2021-10-19] MEDS: Docusate Sodium 100 MG CAP PO (20:49)
[2021-10-19] MEDS: Zolpidem 5 MG TAB PO (21:53)
[2021-10-19] MEDS: rOPINIRole 1 MG TAB 2 MG PO (21:53)
[2021-10-19] MEDS: Insulin Glargine 300 UNITS/3 ML PEN 20 UNITS SC (21:57)
[2021-10-20 08:05] VITALS: BP 114/70; PULSE 52; RESP 18; TEMP 36.3; O2SAT 97
[2021-10-20] MEDS: Umeclidinium 7 CAP INHALER 1 CAP IH (08:24)
[2021-10-20] MEDS: Torsemide 100 MG TAB PO (08:28)
[2021-10-20] MEDS: Aspirin E.C. 81 MG TABEC PO (08:28)
[2021-10-20] MEDS: Creon, Lipase 6,000 CAPCR 1 CAP PO (08:29)
[2021-10-20] MEDS: DULoxetine 30 MG CAP 60 MG PO (08:29)
[2021-10-20] MEDS: Potassium Chloride 20 MEQ TABCR 40 MEQ PO (08:29)
[2021-10-20] MEDS: levETIRAcetam 500 MG TAB PO (08:29)
[2021-10-20] MEDS: Atorvastatin 40 MG TAB PO (08:29)
[2021-10-20] MEDS: Gabapentin 100 MG CAP PO (08:29)
[2021-10-20] MEDS: Omeprazole 20 MG CAPCR 40 MG PO (08:29)
[2021-10-20] MEDS: Isosorbide Mononitrate 10 MG TAB PO (08:29)
[2021-10-20] MEDS: Allopurinol 100 MG TAB PO (08:29)
[2021-10-20] MEDS: Metoprolol CR 100 MG TABCR PO (08:29)
[2021-10-20] MEDS: Normal Saline Flush 10 ML SYR IVP (08:30)
[2021-10-20] MEDS: Enoxaparin 30 MG/0.3 ML SYR SC (09:32)
[2021-10-20] MEDS: Magnesium Chloride 64 MG TABCR PO (09:32)
--- NOTE | 2021-10-20 09:50 | DSE_ITS ---
Date of service: 10/20/21 Time of Service: 09:51 DS: Diagnosis Discharge Diagnosis (1) CHF (congestive heart failure): (2) Chronic obstructive lung disease: (3) CKD stage 4 due to type 2 diabetes mellitus: (4) Closed bimalleolar fracture of right ankle: (5) Diabetes mellitus: (6) Essential hypertension: (7) Palliative care patient: Discharge Plan Disposition Patient Disposition: SNF (LEVEL 1) [facility] Condition: Stable Discharge Details Reason For Visit: Right Ankle Fracture Admit Date/Time: 10/13/21 11:00 Admit Provider: Clarence Caban Attending Provider: Clarence Caban Primary Care Provider: Laisha Mcmahon Hospital Course Hospital Course: This is a super morbid obese female with history of frequent falls, who sustained first a knee fracture after multiple falls at home. She was admitted here, seen by orthopedics, deemed non surgical, cleared for weight bearing and refused to go to [facility] facility so was discharged to home. unfortunately she sustained another fall, due to tripping on walker, and returned here with a trimalleolar fracture of the same right lower extremity. She underwent surgical repair on Oct 07, 2021. post operative course complicated briefly with some fluid overload, received diuretics. Echo showed preserved LV function with EF 60% and no wall motion abnormalities. she diuresed well and has been medically stable. She continues to remain non weight-bearing to the right ankle and will remain so for 2 weeks postoperatively, which is through oct 21, 2021. she was not be able to be safely discharged home due to weight bearing restrictions. She was admitted to swing bed 1 here at [facility] while pending bed acceptance at [facility]. They now have a bed opening and will be transported by wheelchair van. discharge discussed with DR Kaplan. Home Meds and New Rx's Prescriptions: Continued (DME) lancets 25 gauge misc See Dose Instructions .ROUTE .MEDSUPPLY Qty: 100 RF: 5 (DME) lancets [OneTouch Delica Lancets] 33 gauge misc See Dose Instructions .ROUTE DAILY Qty: 100 RF: 0 B-complex with vitamin C [Super B Complex-Vitamin C] Tablet 1 tab PO DAILY RF: 0 albuterol sulfate 2.5 mg /3 mL (0.083 %) solution for nebulization 2.5 mg INHALATION Q2H PRN PRN (Reason: shortness of breath or wheezing) Qty: 180 RF: 4 (DME) Blood Glucose Test Strip See Dose Instructions .ROUTE .MEDSUPPLY Qty: 300 RF: 5 ergocalciferol (vitamin D2) [Vitamin D2] 1,250 mcg (50,000 unit) capsule 50,000 unit PO - Qty: 36 RF: 4 epinephrine [EpiPen 2-Erick] 0.3 mg/0.3 mL auto-injector 0.3 mg IM ONCE Qty: 2 RF: 10 omeprazole 40 mg capsule,delayed release(DR/EC) 40 mg PO BID Qty: 180 RF: 4 metoprolol succinate 100 mg tablet extended release 24 hr 100 mg PO DAILY Qty: 90 RF: 3 gabapentin 100 mg capsule 100 mg PO TID Qty: 270 RF: 0 metolazone 5 mg tablet 5 mg PO .4 times week PRN (Reason: chf) RF: 0 mupirocin 2 % ointment 1 applic topical BID Qty: 22 RF: 3 Creon 6,000-19,000 -30,000 unit capsule,delayed release(DR/EC) 1 cap PO TID Qty: 270 RF: 5 Slow-Mag 71.5 mg tablet,delayed release (DR/EC) 71.5 mg PO BID Qty: 180 RF: 4 meclizine 12.5 mg tablet 12.5 mg PO TID PRN (Reason: dizziness) Qty: 60 RF: 3 (DME) pen needle, diabetic [1st Tier Unifine Pentips] 31 gauge x 1/4 needle See Dose Instructions .ROUTE .MEDSUPPLY Qty: 450 RF: 5 Incruse Ellipta 62.5 mcg/actuation blister with device 1 inh inhalation DAILY Qty: 30 RF: 12 Januvia 25 mg tablet 25 mg PO DAILY Qty: 90 RF: 4 Basaglar KwikPen U-100 Insulin 100 unit/mL (3 mL) insulin pen 35 unit SC BID Qty: 90 RF: 4 insulin aspart U-100 [Novolog Flexpen U-100 Insulin] 100 unit/mL (3 mL) insulin pen 15 unit SC TID Qty: 30 RF: 5 budesonide-formoterol [Symbicort] 160-4.5 mcg/actuation HFA aerosol inhaler 2 puff inhalation BID RF: 0 levetiracetam [Keppra] 500 mg tablet 500 mg PO BID Qty: 180 RF: 5 torsemide 100 mg tablet 100 mg PO DAILY Qty: 90 RF: 6 potassium chloride [K-Tab] 20 mEq tablet extended release 40 meq PO BID Qty: 180 RF: 4 allopurinol 100 mg tablet 100 mg PO DAILY Qty: 90 RF: 12 triamcinolone acetonide 0.1 % cream 1 applic topical BID Qty: 80 RF: 0 isosorbide mononitrate 10 mg tablet 10 mg PO BID Qty: 180 RF: 5 atorvastatin 40 mg tablet 40 mg PO DAILY Qty: 90 RF: 6 duloxetine 60 mg capsule,delayed release(DR/EC) 60 mg PO DAILY Qty: 90 RF: 12 ropinirole 2 mg tablet 2 mg PO QPM PRN (Reason: restless leg(s)) Qty: 90 RF: 5 polyethylene glycol 3350 [Miralax] 17 gram Powder In Packet 1 g PO PRN PRNRF: 0 aspirin 81 mg Tablet,Delayed Release (Dr/Ec) 81 mg PO DAILY Qty: 0 RF: 0 hydrocodone-acetaminophen 10-325 mg Tablet 1 tab PO Q6H PRNQty: 12 RF: 0 acetaminophen [Tylenol Extra Strength] 500 mg Tablet 500 mg PO TID Qty: 0 RF: 0 calcium llai-[id number]-grrqfsjhh vitaliy 133 mg calcium -133 unit-67 mg Capsule 2 cap PO DAILY RF: 0 Discharge Instructions Instructions: ORIF of an Ankle Fracture (DC) Additional Instructions: Physical therapy ordered: Non-weightbearing right ankle x2 weeks (through Oct 21, 2021) followed by protected weightbearing (less than 50%) x4 weeks. No restrictions on the knee. Stand Alone Forms: Nursing Discharge Form Referrals: Mesfin Edouard MD [ [facility] STAFF PHYSICIAN] - 10/27/21 10:00 am Activity:: Activity as Tolerated Equipment/Supplies:: No Equipment Needed Diet:: As Tolerated Discharge Orders Discharge Orders: Discharge Order (Routine); Ordered 10/20/21 Ordered By: Marina Coker DS: Summary Time Spent with Patient providing and/or coordinating discharge services: Greater than 30 minutes Status at Discharge Functional status at discharge: wheelchair bound Overall status at discharge: patient is not back to baseline Mental Status: mental status grossly normal Speech and Movement: speech and movement normal Mood: congruent mood Affect: normal affect Exam Narrative Exam Narrative: Const General: cooperative Nutritional Appearance: obese Orientation: alert and awake HENMT Head: normal to inspection Mouth: oral mucosae normal Chest Chest: normal inspection of the chest Resp Effort & Inspection: normal respiratory effort Auscultation: clear to auscultation bilaterally Cardio Rate: regular rate Rhythm: regular rhythm GI Inspection: normal to inspection Palpation: soft Auscultation: normal bowel sounds Extrem Right lower extremity: abnormal to inspection (surgical cast in place, good csmt's distally. ) Psych Mental Status: mental status grossly normal Speech and Movement: speech and movement normal Mood: congruent mood Affect: normal affect Psych Mental Status: mental status grossly normal Speech and Movement: speech and movement normal Mood: congruent mood Affect: normal affect DS: Data Vitals/I&O Vitals and I&O: Vital Signs Temperature 36.3 C L 10/20/21 08:05 Temperature Source Tympanic 10/20/21 08:05 Pulse 52 L 10/20/21 08:05 Pulse Rhythm Regular 10/20/21 09:07 Respiratory Rate 18 10/20/21 08:05 Respiratory Effort 10/20/21 09:07 Respiratory Depth Normal 10/20/21 09:07 Respiratory Pattern Normal 10/20/21 09:07 Blood Pressure 114/70 10/20/21 08:05 Pulse Oximetry 97 10/20/21 08:05 Oxygen Delivery Method Nasal Cannula 10/20/21 08:05 Oxygen Flow Rate 2 10/20/21 08:05 Pain Level 0 10/20/21 08:05 Intake & Output 10/19/21 10/19/21 10/20/21 11:59 23:59 11:59 Intake Total 10 260 250 / 260 370 / 370 Output Total 900 / 1625 725 / 1625 350 / 350 Balance -890 / -1365 -475 / -1365 Weight 127.459 kg 125.191 kg Intake: IV Oral 240 / 240 360 / 360 Output: Urine 900 / 1625 725 / 1625 350 / 350 Other: Urine Color Yellow Yellow Yellow Urine Appearance Clear Cloudy Clear Urine Odor Normal Normal Normal Comment Unknown amount could not measure. it was mixed with stool Stool Size Small Copious Stool Characteristics Soft Soft Formed Brown Brown Voiding Methods Bedside Commode Bedside Commode Bedside Commode Data Completed and Pending Labs on day of discharge: Labs from last 24 hours 10/20/21 10/19/21 10/19/21 09:21 22:00 22:00 COVID-19 Source Cancelled Pending Cancelled SARS-CoV-2 (PCR) Cancelled Pending Cancelled Influenza Type A (PCR) Cancelled Influenza Type B (PCR) Cancelled RSV (PCR) Cancelled PFSH All Active Problems (Updated 10/14/21 @ 00:03 by ROBBY SIDDIQUI) Cyst of lateral meniscus of right knee (Acute) Wound abscess (Acute) Medical History Abnormal mammography 08/10/06 Acute kidney injury superimposed on chronic kidney disease Fxemw-rz-noqnzzi kidney injury Altered mental status Anemia Ankle pain (03/13/14) Annual physical exam (12/14/15) Atrial fibrillation Atrial flutter BMI 40.0-44.9, adult (12/02/14) Carpal tunnel syndrome Carpal tunnel syndrome (08/10/06) BILATERAL R S/P SURGERY Cervical disc disorder with myelopathy (08/21/08) S/P surgery x 2 Cervical spondylosis with myelopathy Chest pain Neg Stress test CHF (congestive heart failure) Chronic obstructive lung disease CKD (chronic kidney disease) stage 3, GFR 30-59 ml/min Cr about 2.5 CKD stage 4 due to type 2 diabetes mellitus Congestive heart failure Constipation Dehydration Diabetes mellitus 09/20/10 Positive Microalbumin Diastolic CHF DNR no code (do not resuscitate) DVT (deep venous thrombosis) Dysuria Essential hypertension Folate deficiency (02/15/16) Gout Gout (07/06/11) Gram-positive bacteremia Greater trochanteric bursitis of left hip Hammer toe Left/right HAP (hospital-acquired pneumonia) (01/15/19) HCAP (healthcare-associated pneumonia) Heart failure with preserved ejection fraction, borderline, class III Hepatomegaly 06/10/04 Hip joint inflamed (09/03/15) Hip pain, left Hip pain, right Hyperglycemia Hyperlipidemia (08/10/00) Hypertension Hypomagnesemia Hypoxia IDDM (insulin dependent diabetes mellitus) Left hip pain Low back pain (04/10/03) DISC HERNIATION L4. MULTILEVEL DJD/SPINAL STENOSIS BY MRI; S/P surgery Lump in neck Macrocytic anemia Menopausal syndrome 07/11/03 Multiple falls Muscle fatigue 03/04/13 Myoclonic epileptic seizures Numbness and tingling in left upper extremity Palliative care patient Pancreatic atrophy Posterior tibial tendon dysfunction 02/03/16 Postmenopausal bleeding neg. endometrial biopsy Postoperative wound dehiscence (12/23/15) Prerenal azotemia Primary osteoarthritis of left hip (09/17/15) Pulmonary hypertension Renal impairment (07/11/03) ADRENAL MASS. F/U W/ KINLAW positive microalbumin Restless leg syndrome Rotator cuff syndrome (08/01/09) Seizure Shingles Smoker (06/30/16) 01/17/17 1-2 cig/wk SOB (shortness of breath) Spinal stenosis of lumbar region (02/15/16) Spinal stenosis of lumbar region at multiple levels Tarsal tunnel syndrome 06/11/13 Tarsal tunnel syndrome (06/11/13) Trochanteric bursitis 03/18/13 Upper respiratory tract infection (08/03/15) UTI (urinary tract infection) Vaginal atrophy Vitamin D deficiency Vitamin D deficiency Weakness Surgical History Arthrodesis right 2nd toe Cataract (01/07/14) FOLLOWED BY OPTICAL EXPRESSIONS cervical repair (~10/2008) C6-C7 DISK; RECURRENT SURGERY Cholecystectomy (07/31/13) Endometrial Biopsy NEG H/O arthrodesis right second toe H/O Spinal surgery multiple spine surgeries; low back x 2; She had multilevel DJD and spinal stenosis; disc herniation. 2009-cervical repair; C6-C7 disc; recurrent surgery. History of bilateral tubal ligation 09/11/80 History of gynecologic surgery endometrial biopsy-neg History of hip surgery 11/10/15 left hip arthroplasty 12/04/15-placement of wound VAC to left hip History of orthopedic surgery 09/11/97 tarsal tunnel release Left eye surgery 12/31/17 Ligation of fallopian tube (~1980) Open Carpal Tunnel release Right wrist surgery 10/26/17 Rotator Cuff Repair (~1980) S/P CABG (coronary artery bypass graft) (01/03/19) 4 vessel CABG and LA appendage excision, Dr. Nav Wang, [facility], [place], [place] S/P carpal tunnel release S/P cholecystectomy 09/11/12 S/P rotator cuff repair 09/11/80 SPINE SURGERY Multiple spine surgeries, low back x 2. She had multilevel DJD and spinal stenosis, disc herniation Status post incision and drainage 12/04/15 left hip surgical wound dehiscence and infection tarsal tunnel release (~1997) Total replacement of hip [facility]; LEFT HIP Family History Mother Diabetes Essential hypertension Personal history of malignant neoplasm KIDNEY/LIVER/BRAIN Heart disease Hyperlipidemia Stroke Asthma Father Diabetes Essential hypertension Personal history of malignant neoplasm BONE Heart disease Asthma Sister Diabetes Essential hypertension Depression Heart disease Asthma Grandfather No problems noted. Grandfather No problems noted. Grandmother Personal history of malignant neoplasm UTERINE Grandmother Diabetes Aunt Personal history of malignant neoplasm BREAST Brother Hyperlipidemia Stroke Sister Asthma Son Asthma Daughter Depression Asthma Daughter Asthma Daughter Depression Neoplasm Asthma Brother No problems noted. 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: [employer] Pets and animals: Yes Pets and animals: cat(s), dog(s) and horse(s) What is your relationship status?: Panel score (0-1 are the most socially isolated patients): 0 What type of physical activity do you participate in: none, walking and additional Details: would like to start now that it's warm Duration: 15-30 minutes/day Saniya/Jainism: Nondenominational Special saniya needs: No Seatbelt use: always Do you feel safe at home: Yes Do you feel safe in your relationship?: Yes Additional Social history: recently moved out and is now living with a friend
[2021-10-20 10:27] LABS: COVID-19 PCR Negative (Negative); Source Nasal/Nares
--- NOTE | 2021-10-20 11:42 | CHAPLAIN ---
Bibi is scheduled to be discharged this afternoon to the [facility]. She is looking forward to getting on with her care and physical therapy so she can return home. She'll be wearing-bearing, a bit, this Monday and will have her cast off in a week. Her granddaughter works at the [facility] so Bibi is looking forward to seeing family. She hasn't had any visitors because some family members are not vaccinated. Bibi has been passing the time by crocheting, and creating granny squares to make into an micronesian. She continues in her usual pleasant mood.
[2021-10-20] MEDS: Insulin Aspart 300 UNITS/3 ML PEN SC (11:56)
--- NOTE | 2021-10-20 14:21 | PDOC.CMDIS ---
- If Service Date Differs Date of service: 10/20/21 Time of Service: 14:21 LACE Index Scoring Tool - Questions: Length of Stay (in days): 7 - 13 Acuity (Admit via E.D.?): No Comorbidities: Diabetes w/o Complication, Congestive Heart Failure, Chronic Pulmonary Disease, Liver or Renal Disease E.D. Visits: 4 - Answers: Total Score: 14 Risk of Readmission: High Risk Care Management Discharge Reason for Hospitalization: Right Ankle Fracture Discharge Plan: Ann-Marie tranferred to the [facility] to continue short term rehab, prior to returning home. She was transported via [employer] w/[facility] [email or web address], coordinated by CM. She will follow up with her PCP and discharge plan of care. She is happy to be going to the [facility]. Patient/Family Education Needs: Review discharge instructions regarding activity levels and medications, discussion of self care needs including ask me three. Services Needed at Discharge: Longterm Facility ([facility]), Transportation ([employer] [facility] [email or web address])
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
--- NOTE | 2021-10-20 18:10 | INDS_ITS ---
Date of service: 10/18/21 PT Notes Visit Reasons: Right Ankle Fracture Swing Bed Level I Physical Therapy Initial Evaluation Date: 10/20/2021 Date of service: 10/13/2021 through 10/18/2021 This is a clinical summary of care provided for the duration of dates listed above. No charge was made in the completion of this documentation. Referring Doctor: Marina Coker MD PT Orders: PT CONSULT: Swing Bed Level I Evaluation Precautions:??Per orthopod: NWB on R LE with AD for 2 weeks followed by protected weight bearing (less than 50%) x 4 weeks. No knee restrictions.? Premedicate for pain beofre session.? Fall. Standard. Patient Profile/Admitting Diagnosis: Bibi is a 70-year-old female palliative care patient converting to swing bed level I as of today 10/13/2021 with multiple medical co-morbidities and with with right displaced trimalleolar fracture with near dislocation S/P ORIF of medial and lateral malleoli with syndesmotic fixation on postoperative day 5.? She was previously admitted to this hospital on 09/26/2021 for tear of the lateral m eniscus of the right knee, cyst of the lateral meniscus of the right knee, and avulsion fracture of the right femoral condyle sustained from repeated falls at home.? She was seen for physical therapy from 09/27/2021 through 09/30/2021 and was given the recommendation of SNF placement for continued rehabilitation which patient declined to and instead went home. PMHX: All Active Problems?(Updated 10/03/21 @ 15:24 by Tiana Grey NP) Essential hypertension (Chronic 06/13/13) Diabetes mellitus (Chronic 09/20/10) DVT prophylaxis (Acute) CAD (coronary artery disease), [place] coronary artery (Chronic) Closed bimalleolar fracture of right ankle (Acute) Closed avulsion fracture of condyle of right femur (Acute) Cyst of lateral meniscus of right knee (Acute) Tear of lateral meniscus of right knee (Acute) Medial meniscus tear (Acute) Wound abscess (Acute) Discharge planning issues (Acute) Medical History? Abnormal mammography 08/10/06 Acute kidney injury superimposed on chronic kidney disease [id number] kidney injury Altered mental status Anemia Ankle pain (03/13/14) Annual physical exam (12/14/15) Atrial fibrillation Atrial flutter BMI 40.0-44.9, adult (12/02/14) CAD (coronary artery disease), [place] coronary artery Carpal tunnel syndrome Carpal tunnel syndrome (08/10/06) BILATERAL R S/P SURGERY Cervical disc disorder with myelopathy (08/21/08) S/P surgery x 2 Cervical spondylosis with myelopathy Chest pain Neg Stress test CHF (congestive heart failure) Chronic obstructive lung disease CKD (chronic kidney disease) stage 3, GFR 30-59 ml/min Cr about 2.5 CKD stage 4 due to type 2 diabetes mellitus Congestive heart failure Constipation Dehydration Diabetes mellitus 09/20/10? Positive Microalbumin Diastolic CHF DNR no code (do not resuscitate) DVT (deep venous thrombosis) Dysuria Essential hypertension Folate deficiency (02/15/16) Gout Gout (07/06/11) Gram-positive bacteremia Greater trochanteric bursitis of left hip Hammer toe Left/right HAP (hospital-acquired pneumonia) (01/15/19) HCAP (healthcare-associated pneumonia) Heart failure with preserved ejection fraction, borderline, class III Hepatomegaly 06/10/04 Hip joint inflamed (09/03/15) Hip pain, left Hip pain, right Hyperglycemia Hyperlipidemia (08/10/00) Hypertension Hypomagnesemia Hypoxia IDDM (insulin dependent diabetes mellitus) Left hip pain Low back pain (04/10/03) DISC HERNIATION L4. MULTILEVEL DJD/SPINAL STENOSIS BY MRI; S/P surgery Lump in neck Macrocytic anemia Menopausal syndrome 07/11/03 Multiple falls Muscle fatigue 03/04/13 Myoclonic epileptic seizures Numbness and tingling in left upper extremity Palliative care patient Pancreatic atrophy Posterior tibial tendon dysfunction 02/03/16 Postmenopausal bleeding neg. endometrial biopsy Postoperative wound dehiscence (12/23/15) Prerenal azotemia Primary osteoarthritis of left hip (09/17/15) Pulmonary hypertension Renal impairment (07/11/03) ADRENAL MASS. F/U W/ KINLAW positive microalbumin Restless leg syndrome Rotator cuff syndrome (08/01/09) Seizure Shingles Smoker (06/30/16) 01/17/17 1-2 cig/wk SOB (shortness of breath) Spinal stenosis of lumbar region (02/15/16) Spinal stenosis of lumbar region at multiple levels Tarsal tunnel syndrome 06/11/13 Tarsal tunnel syndrome (06/11/13) Trochanteric bursitis 03/18/13 Upper respiratory tract infection (08/03/15) UTI (urinary tract infection) Vaginal atrophy Vitamin D deficiency Vitamin D deficiency Weakness Surgical History? Arthrodesis right 2n toe Cataract (01/07/14) FOLLOWED BY [employer] cervical repair (~10/2008) C6-C7 DISK; RECURRENT SURGERY Cholecystectomy (07/31/13) Endometrial Biopsy NEG H/O arthrodesis right second toe H/O Spinal surgery multiple spine surgeries; low back x 2; She had multilevel DJD and spinal stenosis; disc herniation. 2008-cervical repair; C6-C7 disc; recurrent surgery. History of bilateral tubal ligation 09/11/80 History of gynecologic surgery endometrial biopsy-neg History of hip surgery 11/10/15 left hip arthroplasty? 12/04/15-placement of wound VAC to left hip History of orthopedic surgery 09/11/97 tarsal tunnel release Left eye surgery 12/31/17 Ligation of fallopian tube (~1980) Open Carpal Tunnel release Right wrist surgery 10/26/17 Rotator Cuff Repair (~1980) S/P CABG (coronary artery bypass graft) (01/03/19) 4 vessel CABG and LA appendage excision, Dr. Nav Wang, [facility] [place], [place] S/P carpal tunnel release S/P cholecystectomy 09/11/12 S/P rotator cuff repair 09/11/80 SPINE SURGERY Multiple spine surgeries, low back x 2.? She had multilevel DJD and spinal stenosis, disc herniation Status post incision and drainage 12/04/15 left hip surgical wound dehiscence and infection tarsal tunnel release (~1997) Total replacement of hip [facility]; LEFT HIP Social History/Home Situation:? Independent with all mobility ADLs using the front-wheeled walker.? Has had repeated falls the past month. Equipment Owned/DME: FWW Subjective: NT. See most recent PR[employer] notes. Objective: General Observation:? NT. See most recent PRODUCTION [employer] notes. Mental Status: NT. See most recent PR[employer] notes. Pain: NT. See most recent PR[employer] notes. ROM: Right Upper Extremity: ? Shoulder Flexion WFL. Shoulder abduction WFL. Elbow flexion WFL. Wrist flexion WFL. Functional opening and closing of hand WFL. Left Upper Extremity:? Shoulder Flexion WFL. Shoulder abduction WFL. Elbow flexion WFL. Wrist flexion WFL. Functional opening and closing of hand WFL. Right Lower Extremity: Hip flexion about 50% of active ROM due to pain and intermittent spasms. Hip abduction less than 50% of active ROM. Knee flexion WFL. Knee extension -10 degrees.? Ankle dorsiflexion unable. Ankle plantarflexion unable. Left Lower Extremity: Hip flexion WFL. Hip abduction WFL. Knee flexion WFL. Ankle dorsiflexion WFL. Ankle plantarflexion WFL. Strength: Right Upper Extremity: Shoulder flexors 4/5. Shoulder abductors 4/5. Elbow flexors 4/5. Elbow extensors 4/5. [employer] strong. Left Upper Extremity: Shoulder flexors 4/5. Shoulder abductors 4/5. Elbow flexors 4/5. Elbow extensors 4/5. [employer] strong. Right Lower Extremity: Hip flexors 3-/5. Hip abductors 3-/5. Knee flexors 3-/5. Knee extensors 3-/5.? Ankle dorsiflexors 0/5. Ankle plantarflexors 0/5. Left Lower Extremity: Hip flexors 4-/5. Hip abductors 4-/5. Knee flexors 4-/5. Knee extensors 4-/5. Ankle dorsiflexors 4-/5. Ankle plantarflexors 4-/5. Bed Mobility/Transfers: Sit to stand independent Stand to sit independent Gait: Patient is able to tolerate up to 8 steps with NWB on L LE using the bariatric FWW with supervision. Balance: Sitting static:Normal Sitting dynamic: Good Standing static: Unable Standing dynamic: Unable Assessment: Patient remains NWB on R LE until October 21, 2021 and will need to transition to less than 50% WB beginning October 22, 2021 per orthopod's order.? Ambulation performance and distance has been limited to essential transfers only due to patient's body habitus and multiple co-morbidities. Strengthening exerc ises were done in open chain to limit weight bearing and reduce fall risk. Patient has been given a copy of exercises that she may do with PT at [facility]. Patient presents with clinical signs and symptoms consistent with current/admitting diagnoses that have resulted to mobility limitations, gait instability, generalized weakness, and overall ADL decline as demonstrated by the following impairment level findings: 1.? Decreased strength to B UE/LE 2.? Impaired activity tolerance 3.? Limitation of joint range of motion in R LE joints 4.? Pain in R ankle and foot at 5-6/10 5.? Intermittent spasms in R LE 6.? NWB on R LE Impairments are contributing to the following functional limitations: 1.? Decline in bed mobility skills 2.? Decline in transfer skills 3.? Unable to ambulate 4.? Increased completion time for mobility ADL performance 5.? Increased risk for falls 6.? Inability to thrive at home Goals: Goals X1 week 1. Patient will demonstrate 100% mastery of open chain exercises to increase B UE and LE strength in anticipation of WB progression after two weeks. NOT MET 2. Patient will demonstrate modified independent with use of bariatric FWW for all transfer task performance to reduce fall risk. NOT MET DISCHARGE RECOMMENDATIONS: [] ? Home with no services [] [] ? Home with services [specify] [] ? Home with outpatient PT [] [X] ? SNF for continued rehabilitation. Discharge to SNF when medically cleared by hospitalist. Patient will benefit from half-way facility placement for continued skilled physical therapy services in order to progress mobility level, strength, and balance in preparation for a safe discharge to home. [] ? [facility] Care [] [] ? SNF versus LTC based on ability to participate and progress [] TREATMENT CODE/TIME: NC Thank you for the opportunity to participate in the care of this patient. Kathryn Sainz PT, DPT, CLT [facility] [place], [place]
== END 2021-10-20 13:06 | disposition skilled nursing facility (03) | DRG 560 ==
PROVIDERS: Family Medicine; Admitting Provider Internal Medicine; PCP Family Medicine; Visit Provider Internal Medicine
DX: S82.851D Displaced trimalleolar fracture of right lower leg, subsequent encounter for closed fracture with routine healing (principal); I50.32 Chronic diastolic (congestive) heart failure; N18.4 Chronic kidney disease, stage 4 (severe); I48.92 Unspecified atrial flutter; M47.12 Other spondylosis with myelopathy, cervical region; I13.0 Hypertensive heart and chronic kidney disease with heart failure and stage 1 through stage 4 chronic kidney disease, or unspecified chronic kidney disease; Z79.4 Long term (current) use of insulin; E11.22 Type 2 diabetes mellitus with diabetic chronic kidney disease; S82.831D Other fracture of upper and lower end of right fibula, subsequent encounter for closed fracture with routine healing; W19.XXXD Unspecified fall, subsequent encounter; E66.01 Morbid (severe) obesity due to excess calories; Z68.39 Body mass index [BMI] 39.0-39.9, adult; I48.91 Unspecified atrial fibrillation; J44.9 Chronic obstructive pulmonary disease, unspecified; K59.00 Constipation, unspecified; Z66 Do not resuscitate; M10.9 Gout, unspecified; D53.9 Nutritional anemia, unspecified; G40.409 Other generalized epilepsy and epileptic syndromes, not intractable, without status epilepticus; I27.20 Pulmonary hypertension, unspecified; G25.81 Restless legs syndrome; M48.061 Spinal stenosis, lumbar region without neurogenic claudication; E55.9 Vitamin D deficiency, unspecified
CPT/HCPCS: 87635; 87637; 94640; 97110; 97162; 97166; 97530; 97535; 99306; 99316; J3490; J1650

== ENCOUNTER 2021-10-26 16:12 | Outpatient (REF) | payer OTHER, MEDICAID, SELFPAY ==
[2021-10-26 11:28] LABS: Abs Immature Grans 0.05 10^3/uL (0.0-0.06); Absolute Basophil Count 0.14 10^3/uL (0.0-0.2); Absolute Eosinophil Count 0.89 10^3/uL (0.0-0.7); Absolute Lymphocyte Count 2.18 10^3/uL (1.2-3.4); Absolute Monocyte Count 0.87 10^3/uL (0.1-0.8); Absolute Neutrophil Count 5.91 10^3/uL (1.2-6.7); Basophils % 1.4; Eosinophils % 8.9; HCT 33.5 % (36.0-46.0); HGB 9.1 g/dL (11.2-15.7); Immature Grans % 0.5; Lymphocytes % 21.7; MCH 22.8 pg (27.0-33.0); MCHC 27.2 % (32.0-36.0); MCV 83.8 fL (80-95); Monocytes % 8.7; Neutrophils % 58.8; Nucleated RBC 0 %; Platelet Count 514 10^3/uL (130-400); RDW 17.8 % (11.7-14.6); RDW-SD 54.1 fL; WBC 10.04 10^3/uL (4.4-10.8)
[2021-10-26 11:37] LABS: Iron 33 ug/dL (50-170); Total Iron Binding Capacity 410 ug/dL (250-450); Transferrin Sat 8 % (15-50)
[2021-10-26 11:55] LABS: Diff Comment RBC Morph Reviewed; Hypochromasia 2+; Microcytosis 1+
[2021-10-26 12:01] LABS: Hemoglobin A1C 6.4 % (<5.7)
[2021-10-26 12:06] LABS: ALT 25 U/L (14-59); AST 11 U/L (15-37); Albumin 3.3 g/dL (3.4-5.0); Alkaline Phosphatase 115 U/L (46-116); Anion Gap 6.5 mmol/L (3-11); BUN 41 mg/dL (7-18); Bilirubin, Total 0.4 mg/dL (0.2-1.0); CO2 31.5 mmol/L (21.0-32.0); Calcium 9.6 mg/dL (8.5-10.1); Chloride 106 mmol/L (98-107); Estimated GFR 24.78 (mL/min/1.73m2); Folate 7.8 ng/mL (8.6-20.0); Glucose 93 mg/dL (74-106); Potassium 4.8 mmol/L (3.5-5.1); Sodium 144 mmol/L (136-145); TSH (W/Ref FT4) 1.91 uIU/mL (0.36-3.74); Total Protein 6.8 g/dL (6.4-8.2); Vitamin B12 574 pg/mL (193-986)
[2021-10-27 09:54] LABS: Ferritin 18 ng/mL (10-291)
[2021-10-28 05:22] LABS: Vitamin D 25 Total 98.3 ng/mL (30-100)
== END 2021-10-26 16:13 | disposition home or self-care (01) ==
LOC: LBN 16:12
PROVIDERS: PCP Family Medicine; Visit Provider Nurse Practitioner Gerontology
DX: N18.4 Chronic kidney disease, stage 4 (severe) (principal); E11.9 Type 2 diabetes mellitus without complications; I13.10 Hypertensive heart and chronic kidney disease without heart failure, with stage 1 through stage 4 chronic kidney disease, or unspecified chronic kidney disease; J44.9 Chronic obstructive pulmonary disease, unspecified; I48.91 Unspecified atrial fibrillation; I50.32 Chronic diastolic (congestive) heart failure; R53.83 Other fatigue; G40.89 Other seizures
CPT/HCPCS: 80053; 82306; 82607; 82728; 82746; 83036; 83540; 83550; 83735; 84443; 85025

== ENCOUNTER 2021-11-01 11:45 | Outpatient (CLI) | payer OTHER, MEDICAID, SELFPAY ==
--- NOTE | 2021-11-01 10:30 | DI.RAD_ITS ---
Exam(s) XR ANKLE RT COMPLETE EXAM: XR ANKLE RT COMPLETE CLINICAL HISTORY: 1st post op bimalleolar ankle fracture s/p ORIF. TECHNIQUE: 2D digital imaging was performed. COMPARISON: CR XR ANKLE RT COMPLETE from 10/05/2021 FINDINGS: There has been interval open reduction internal fixation. There is a lateral fixation plate across t he fibular fracture site secured by multiple screws and there is also a syndesmotic screw. There is a single screw across the medial malleolus fracture site. In addition to the transverse medial malleolus fractures there is an oblique fracture evident in the adjacent medial metaphysis of the distal tibia. On the lateral view there is a triangular fracture f ragment noted anteriorly measuring 1.4 x 0.6 cm. There is no widening of the mortise. Talar dome unremarkable. Large inferior calcaneal spur noted. There is also degenerative changes on the dorsal aspect of the talonavicular joint noted. IMPRESSION: DATA REPOSITORY: RADIATION DOSE DELIVERED:
== END 2021-11-01 11:46 | disposition home or self-care (01) ==
LOC: DIORS 11:45
PROVIDERS: PCP Family Medicine; Referring Provider Family Medicine; Visit Provider Physician Assistant
DX: S82.841D Displaced bimalleolar fracture of right lower leg, subsequent encounter for closed fracture with routine healing (principal); X58.XXXD Exposure to other specified factors, subsequent encounter
CPT/HCPCS: 73610

== ENCOUNTER 2021-11-16 16:35 | Outpatient (REF) | payer OTHER, MEDICAID, SELFPAY ==
[2021-11-16 14:11] LABS: Abs Immature Grans 0.09 10^3/uL (0.0-0.06); Absolute Eosinophil Count 0.72 10^3/uL (0.0-0.7); Absolute Monocyte Count 0.73 10^3/uL (0.1-0.8); Absolute Neutrophil Count 7.11 10^3/uL (1.2-6.7); Basophils % 0.9; Eosinophils % 6.7; HCT 34.1 % (36.0-46.0); HGB 9.5 g/dL (11.2-15.7); Immature Grans % 0.8; Lymphocytes % 18.6; MCH 23.1 pg (27.0-33.0); MCHC 27.9 % (32.0-36.0); MPV 10.1 fL (8.0-11.0); Monocytes % 6.8; Neutrophils % 66.2; Nucleated RBC 0 %; Platelet Count 336 10^3/uL (130-400); RBC 4.11 10^6/uL (3.93-5.22); RDW 17.9 % (11.7-14.6); RDW-SD 53.4 fL; WBC 10.75 10^3/uL (4.4-10.8)
[2021-11-16 14:24] LABS: ALT 18 U/L (14-59); AST 12 U/L (15-37); Albumin 3.4 g/dL (3.4-5.0); Alkaline Phosphatase 91 U/L (46-116); Anion Gap 9.4 mmol/L (3-11); BUN 33 mg/dL (7-18); Bilirubin, Total 0.4 mg/dL (0.2-1.0); CO2 29.6 mmol/L (21.0-32.0); CREATININE 2.2 mg/dL (0.55-1.02); Calcium 9.3 mg/dL (8.5-10.1); Chloride 102 mmol/L (98-107); Estimated GFR 22.13 (mL/min/1.73m2); Glucose 170 mg/dL (74-106); Potassium 4.5 mmol/L (3.5-5.1); Sodium 141 mmol/L (136-145); Total Protein 6.8 g/dL (6.4-8.2)
[2021-11-16 14:32] LABS: Diff Comment RBC Morph Reviewed
[2021-11-16 14:33] LABS: Hypochromasia 1+
== END 2021-11-16 16:36 | disposition home or self-care (01) ==
LOC: LBN 16:35
PROVIDERS: PCP Family Medicine; Visit Provider Nurse Practitioner Gerontology
DX: E66.1 Drug-induced obesity (principal); N18.4 Chronic kidney disease, stage 4 (severe); I50.32 Chronic diastolic (congestive) heart failure
CPT/HCPCS: 80053; 85025

== ENCOUNTER 2021-11-30 11:55 | Outpatient (CLI) | payer OTHER, MEDICAID, SELFPAY ==
--- NOTE | 2021-11-30 11:18 | DI.RAD_ITS ---
Exam(s) XR ANKLE RT COMPLETE EXAM: XR ANKLE RT COMPLETE INDICATION: ankle fx f/u. COMPARISON: CR XR ANKLE RT COMPLETE from 11/01/2021 TECHNIQUE: 2D digital imaging was performed. Three views. FINDINGS: There has been no change in fracture or hardware alignment. Degenerative changes in the tarsal regio n. Large heel spur. Vascular calcifications. Soft tissue swelling persists. No new abnormalities. DATA REPOSITORY: RADIATION DOSE DELIVERED:
== END 2021-11-30 11:56 | disposition home or self-care (01) ==
LOC: DIORS 11:56
PROVIDERS: PCP Family Medicine; Referring Provider Family Medicine; Visit Provider Student in an Organized Health Care Education/Training Program
DX: S82.841D Displaced bimalleolar fracture of right lower leg, subsequent encounter for closed fracture with routine healing; X58.XXXD Exposure to other specified factors, subsequent encounter
CPT/HCPCS: 73610

== ENCOUNTER 2021-12-16 19:11 | Outpatient (REF) | payer OTHER, MEDICAID, SELFPAY ==
[2021-12-16 16:09] LABS: CREATININE 2.9 mg/dL (0.55-1.02); Calcium 9.9 mg/dL (8.5-10.1); Chloride 96 mmol/L (98-107); Estimated GFR 16.09 (mL/min/1.73m2); Glucose 190 mg/dL (74-106); Potassium 3.7 mmol/L (3.5-5.1); Sodium 142 mmol/L (136-145)
[2021-12-16 16:15] LABS: BUN 92 mg/dL (7-18)
== END 2021-12-16 19:12 | disposition home or self-care (01) ==
LOC: LBN 19:11
PROVIDERS: PCP Family Medicine; Visit Provider Family Medicine
DX: E87.1 Hypo-osmolality and hyponatremia (principal)
CPT/HCPCS: 80048

== ENCOUNTER 2021-12-21 14:34 | Outpatient (REF) | payer OTHER, MEDICAID, SELFPAY ==
[2021-12-21 17:28] LABS: Anion Gap 11.2 mmol/L (3-11); CO2 29.8 mmol/L (21.0-32.0); CREATININE 2.9 mg/dL (0.55-1.02); Calcium 9.3 mg/dL (8.5-10.1); Chloride 94 mmol/L (98-107); Estimated GFR 16.09 (mL/min/1.73m2); Glucose 246 mg/dL (74-106); Sodium 135 mmol/L (136-145)
[2021-12-21 17:45] LABS: BUN 100 mg/dL (7-18)
== END 2021-12-21 14:35 | disposition home or self-care (01) ==
LOC: LBN 14:34
PROVIDERS: PCP Family Medicine; Visit Provider Family Medicine
DX: N17.9 Acute kidney failure, unspecified (principal); N18.9 Chronic kidney disease, unspecified
CPT/HCPCS: 80048

== ENCOUNTER 2021-12-22 17:44 | Outpatient (REF) | payer OTHER, MEDICAID, SELFPAY ==
[2021-12-22 20:25] LABS: Bilirubin Negative (Negative); Blood Negative (Negative); Clarity Cloudy (Clear); Glucose Negative (Negative); Ketones Negative (Negative); Leukocyte Esterase Moderate (Negative); Nitrite Negative (Negative); Specific Gravity 1.015 (1.005-1.025); Urobilinogen 0.2 EU/dL (Up TO 0.2); pH 6.5 (5-8)
[2021-12-22 20:58] LABS: Epithelial Cells Few HPF (Negative); RBC Negative HPF (0-2); WBC >50 HPF (0-5)
[2021-12-22 20:59] LABS: Bacteria Packed HPF (Negative); C & S Indicated? Yes; Crystals Negative HPF (Negative); Mucus Negative (Negative)
== END 2021-12-22 17:45 | disposition home or self-care (01) ==
LOC: LBN 17:44
PROVIDERS: PCP Family Medicine; Visit Provider Family Medicine
DX: R82.998 Other abnormal findings in urine (principal); R32 Unspecified urinary incontinence
CPT/HCPCS: 87077; 81003; 81015; 87086; 87186

== ENCOUNTER 2021-12-27 11:43 | Outpatient (REF) | payer OTHER, MEDICAID, SELFPAY ==
[2021-12-27 14:11] LABS: Anion Gap 10.5 mmol/L (3-11); CO2 30.5 mmol/L (21.0-32.0); CREATININE 3.1 mg/dL (0.55-1.02); Chloride 99 mmol/L (98-107); Glucose 173 mg/dL (74-106); NT-proBNP 586 pg/mL (<300); Potassium 4.3 mmol/L (3.5-5.1); Sodium 140 mmol/L (136-145)
[2021-12-27 14:27] LABS: BUN 88 mg/dL (7-18)
== END 2021-12-27 11:44 | disposition home or self-care (01) ==
LOC: LBN 11:43
PROVIDERS: PCP Family Medicine; Visit Provider Family Medicine
DX: I50.32 Chronic diastolic (congestive) heart failure (principal)
CPT/HCPCS: 80048; 83880

== ENCOUNTER 2022-01-07 16:46 | Outpatient (REF) | payer OTHER, MEDICAID, SELFPAY ==
[2022-01-07 20:38] LABS: HCT 38.2 % (36.0-46.0); HGB 10.7 g/dL (11.2-15.7); MCH 23.3 pg (27.0-33.0); MCV 83 fL (80-95); MPV 10.7 fL (8.0-11.0); Platelet Count 383 10^3/uL (130-400); RBC 4.59 10^6/uL (3.93-5.22); RDW 17.2 % (11.7-14.6); WBC 13.26 10^3/uL (4.4-10.8)
[2022-01-07 20:57] LABS: ALT 24 U/L (14-59); AST 12 U/L (15-37); Albumin 3.9 g/dL (3.4-5.0); Alkaline Phosphatase 102 U/L (46-116); Anion Gap 10.6 mmol/L (3-11); BUN 53 mg/dL (7-18); Bilirubin, Total 0.5 mg/dL (0.2-1.0); CO2 28.4 mmol/L (21.0-32.0); CREATININE 2.4 mg/dL (0.55-1.02); Calculated LDL 78 mg/dL (<100); Chloride 102 mmol/L (98-107); Cholesterol 162 mg/dL (<200); Estimated GFR 20.02 (mL/min/1.73m2); Glucose 139 mg/dL (74-106); HDL Cholesterol 52 mg/dL (40-60); Potassium 4.7 mmol/L (3.5-5.1); Sodium 141 mmol/L (136-145); Total Protein 7.7 g/dL (6.4-8.2); Triglyceride 162 mg/dL (<150)
[2022-01-07 21:18] LABS: NT-proBNP 510 pg/mL (<300)
[2022-01-07 22:05] LABS: Hemoglobin A1C 7.8 % (<5.7)
== END 2022-01-07 16:47 | disposition home or self-care (01) ==
LOC: LBN 16:46
PROVIDERS: PCP Family Medicine; Visit Provider Family Medicine
DX: E11.21 Type 2 diabetes mellitus with diabetic nephropathy (principal); I25.10 Atherosclerotic heart disease of native coronary artery without angina pectoris; M54.9 Dorsalgia, unspecified; N18.4 Chronic kidney disease, stage 4 (severe); I50.9 Heart failure, unspecified; I10 Essential (primary) hypertension; N39.0 Urinary tract infection, site not specified
CPT/HCPCS: 80053; 80061; 85027; 87077; 83036; 83880; 87086; 87186

== ENCOUNTER 2022-01-10 15:12 | Observation (INO) | payer OTHER, MEDICAID, SELFPAY ==
[2022-01-10] VITALS (91 sets, daily range): BP systolic 91–128; BP diastolic 42–86; PULSE 62–92; RESP 13–34; TEMP 36.4–36.6; O2SAT 94–100
--- NOTE | 2022-01-10 15:00 | RT.EKG_ITS ---
APPROVED REPORT Exam: Resting ECG Reason for Exam: chest pain Patient Location: E HR:80 bpm ECG Measurements Heart Rate 80 AXIS MT 130 P -47 QRSd 108 QRS 97 QT 404 T 42 QTc 465 Conclusion Sinus or ectopic atrial rhythm...P axis (-45,135) Probable right ventricular hypertrophy...prominent R or R' w/ RAD or TAMRA Physician: Sinus rhythm, no significant ST elevations or depressions. No STEMI. No [id number].
--- NOTE | 2022-01-10 15:15 | DI.RAD_ITS ---
Exam(s) XR PORTABLE CHEST AP EXAM: XR PORTABLE CHEST AP CLINICAL HISTORY: sob, central chest pain TECHNIQUE: 2D digital imaging was performed. COMPARISON: CR XR PORTABLE CHEST AP from 10/08/2021 FINDINGS: LUNGS: Mild scarring at the left diaphragm. No pleural abnormality seen. HEART: Normal size. Prior CABG.. AORTA: Normal. BONES: Sternal wires. Lower cervical spine fusion hardware. Soft tissues: Unremarkable. IMPRESSION: No acute findings. DATA REPOSITORY: RADIATION DOSE DELIVERED:
[2022-01-10 15:32] LABS: Abs Immature Grans 0.07 10^3/uL (0.0-0.06); Absolute Lymphocyte Count 1.83 10^3/uL (1.2-3.4); Absolute Monocyte Count 1.08 10^3/uL (0.1-0.8); Absolute Neutrophil Count 9.89 10^3/uL (1.2-6.7); Basophils % 0.7; Eosinophils % 6.4; HCT 35.3 % (36.0-46.0); Immature Grans % 0.5; Lymphocytes % 13.2; MCH 23.3 pg (27.0-33.0); MCHC 28.3 % (32.0-36.0); MCV 82 fL (80-95); MPV 10.1 fL (8.0-11.0); Monocytes % 7.8; Neutrophils % 71.4; Platelet Count 375 10^3/uL (130-400); RBC 4.29 10^6/uL (3.93-5.22); RDW 17.1 % (11.7-14.6); WBC 13.85 10^3/uL (4.4-10.8)
[2022-01-10 15:42] LABS: Absolute Eosinophil Count 0.89 10^3/uL (0.0-0.7)
--- NOTE | 2022-01-10 15:54 | W.ED.GENAD ---
Discharge Plan Discharge Details Chief Complaint: Chest Pain Primary Care Provider: Laisha Mcmahon ED Provider: Jamie Leos Home Meds and New Rx's Prescriptions: No Action (DME) lancets 25 gauge misc See Dose Instructions .ROUTE .MEDSUPPLY Qty: 100 5RF Dose Instruction: As directed Rx Instructions: daily e11.9 True track smart system (DME) lancets [OneTouch Delica Lancets] 33 gauge misc See Dose Instructions .ROUTE DAILY Qty: 100 0RF Dose Instruction: E11.9 daily Rx Instructions: E11.9 daily B-complex with vitamin C [Super B Complex-Vitamin C] Tablet 1 tab PO DAILY 0RF albuterol sulfate 2.5 mg /3 mL (0.083 %) solution for nebulization 2.5 mg INHALATION Q2H PRN PRN (Reason: shortness of breath or wheezing) Qty: 180 4RF (DME) Blood Glucose Test Strip See Dose Instructions .ROUTE .MEDSUPPLY Qty: 300 5RF Dose Instruction: As directed Rx Instructions: 3 times per day. E11.9 / Z79.4 One touch ultra epinephrine [EpiPen 2-Erick] 0.3 mg/0.3 mL auto-injector 0.3 mg IM ONCE Qty: 2 10RF omeprazole 40 mg capsule,delayed release(DR/EC) 40 mg PO BID Qty: 180 4RF metoprolol succinate 100 mg tablet extended release 24 hr 100 mg PO DAILY Qty: 90 3RF gabapentin 100 mg capsule 100 mg PO TID Qty: 270 0RF tramadol 50 mg tablet 50 mg PO TID PRN (Reason: pain) Qty: 30 0RF insulin aspart U-100 [Novolog Flexpen U-100 Insulin] 100 unit/mL (3 mL) insulin pen 10 unit SC TID Qty: 30 5RF Basaglar KwikPen U-100 Insulin 100 unit/mL (3 mL) insulin pen 50 unit SC DAILY Qty: 90 4RF Incruse Ellipta 62.5 mcg/actuation blister with device 1 inh inhalation DAILY 0RF (DME) pen needle, diabetic [1st Tier Unifine Pentips] 31 gauge x 1/4 needle See Dose Instructions .ROUTE .MEDSUPPLY Qty: 450 5RF Dose Instruction: As directed Rx Instructions: 5/ day E11.65. needed for several meds Januvia 25 mg tablet 25 mg PO DAILY Qty: 90 4RF budesonide-formoterol [Symbicort] 160-4.5 mcg/actuation HFA aerosol inhaler 2 puff inhalation BID 0RF Label Comments: Last rx'd 05/05/20 x 1 year. aj potassium chloride [K-Tab] 20 mEq tablet extended release 40 meq PO BID Qty: 180 4RF allopurinol 100 mg tablet 100 mg PO DAILY Qty: 90 12RF isosorbide mononitrate 10 mg tablet 10 mg PO BID Qty: 180 5RF Rx Instructions: give doses 7 hrs apart atorvastatin 40 mg tablet 40 mg PO DAILY Qty: 90 6RF duloxetine 60 mg capsule,delayed release(DR/EC) 60 mg PO DAILY Qty: 90 12RF ropinirole 2 mg tablet 2 mg PO QPM PRN (Reason: restless leg(s)) Qty: 90 5RF Rx Instructions: cholecalciferol (vitamin D3) 25 mcg (1,000 unit) capsule 25 mcg PO DAILY 0RF magnesium oxide 400 mg magnesium tablet 400 mg PO BID 0RF sennosides-docusate sodium [Senexon-S] 8.6-50 mg tablet 1 tab-cap PO QHS 0RF torsemide 100 mg tablet See Rx Instructions PO DAILY Qty: 135 6RF Rx Instructions: 1.5 Tab in AM 0.5 tab at 2 PM PO daily; Creon 6,000-19,000 -30,000 unit capsule,delayed release(DR/EC) 1 cap PO TID Qty: 270 5RF levetiracetam [Keppra] 500 mg tablet 500 mg PO BID Qty: 180 5RF Slow-Mag 71.5 mg tablet,delayed release (DR/EC) 71.5 mg PO BID Qty: 180 4RF cephalexin 250 mg tablet 250 mg PO TID Qty: 21 0RF aspirin 81 mg Tablet,Delayed Release (Dr/Ec) 81 mg PO DAILY Qty: 0 0RF acetaminophen [Tylenol Extra Strength] 500 mg Tablet 500 mg PO TID Qty: 0 0RF Medical Decision Making 71-year-old female with a past medical history of congestive heart failure, type 2 diabetes, chronic kidney disease, coronary artery disease with CABG in 2019, palliative care patient who is DNR, who presents today for evaluation via EMS for chest pain and shortness of breath. Over the last 3 days the patient admits to worsening chronic shortness of breath and presence of chest pain/chest tightness. Patient does not move around much secondary to her previous injuries and surgeries. Though she is unaware of an exertional component however when she does get up to go to the bathroom she does note that she is extremely short of breath compared to normal when she is off her oxygen. Normally she is on 2 L but is able to get off occasionally to perform activities without significant difficulty. She denies any cough, fever, or chills. She did have some recent weight gain, and was increased on her furosemide today. She has had some urinary frequency. Recent urine cultures were positive and did have concern for UTI. The patient did recently come off antibiotics a week and a half ago for a UTI as well. Patient has no other complaints at this time. She states that this feels different than her last heart attack. The chest pain/achiness does radiate to her back and neck. She denies any tearing or ripping sensation. She denies any abdominal pain or vomiting. Physical exam demonstrates no peripheral edema. Lung sounds are clear. Patient was given 1 nitroglycerin and a full dose of aspirin via EMS. After administration of this within 5 minutes the patient's chest pain went from a 9 out of 10 to a 4-5. Currently the patient states she has no more chest pain. Differential includes CHF, ACS or cardiac etiology. Bedside limited ultrasound was performed and demonstrates poor ejection fraction in general, no evidence of significant pericardial effusion. Left ventricle does not look slightly atypical over the superior aspect, and there is definite wall motion abnormalities throughout which are likely chronic. We will evaluate for concerning etiologies, monitor closely and reassess. Of note echo performed 2 months ago demonstrated an EF of 60%, no wall motion abnormality, and left ventricular hypertrophy. 5:41 PM Patient remains chest pain-free, laboratory work-up is stable. EKG 15: 16 Sinus rhythm, no significant ST elevations or depressions. No STEMI. No S1Q3T3. FINDINGS: LUNGS: Mild scarring at the left diaphragm. No pleural abnormality seen. HEART: Normal size. Prior CABG.. AORTA: Normal. BONES: Sternal wires. Lower cervical spine fusion hardware. Soft tissues: Unremarkable. IMPRESSION: No acute findings. HPI General Date/Time Provider Initiated Documentation: 01/10/22 15:20. HPI Narrative: 71-year-old female with a past medical history of congestive heart failure, type 2 diabetes, chronic kidney disease, coronary artery disease with CABG in 2019, palliative care patient who is DNR, who presents today for evaluation via EMS for chest pain and shortness of breath. Over the last 3 days the patient admits to worsening chronic shortness of breath and presence of chest pain/chest tightness. Patient does not move around much secondary to her previous injuries and surgeries. Though she is unaware of an exertional component however when she does get up to go to the bathroom she does note that she is extremely short of breath compared to normal when she is off her oxygen. Normally she is on 2 L but is able to get off occasionally to perform activities without significant difficulty. She denies any cough, fever, or chills. She did have some recent weight gain, and was increased on her furosemide today. She has had some urinary frequency. Recent urine cultures were positive and did have concern for UTI. The patient did recently come off antibiotics a week and a half ago for a UTI as well. Patient has no other complaints at this time. She states that this feels different than her last heart attack. The chest pain/achiness does radiate to her back and neck. She denies any tearing or ripping sensation. She denies any abdominal pain or vomiting. Related Data Home Medications Medication Instructions Recorded Confirmed lancets 33 gauge (Cuateuch Deljatin #100 each 12/18/18 01/07/22 Lancets) lancets 25 gauge #100 each 01/29/19 01/07/22 B-complex with vitamin C (Super B 1 tab PO DAILY 09/19/19 01/10/22 Complex-Vitamin C) aspirin 81 mg tablet,delayed 81 mg PO DAILY #0 tab 06/01/20 01/10/22 release albuterol sulfate 2.5 mg (3 mL) INHALATION Q2H PRN 09/10/20 01/10/22 PRN #180 ml pen needle, diabetic 31 gauge x #450 each 12/10/20 01/07/2209/14 (1st Tier Unifine Pentips) budesonide-formoterol HFA 160 2 puff INHALATION BID 01/07/21 01/10/22 mcg-4.5 mcg/actuation aerosol inhaler (Symbicort) sitagliptin 25 mg tablet (Januvia) 25 mg PO DAILY #90 tab 01/07/21 01/10/22 epinephrine 0.3 mg/0.3 mL 0.3 mg (0.3 mL) IM ONCE #2 ea 02/04/21 01/10/22 injection, auto-injector (EpiPen 2-Erick) metoprolol succinate 100 mg 100 mg PO DAILY #90 tab 02/18/21 01/10/22 tablet,extended release 24 hr omeprazole 40 mg capsule,delayed 40 mg PO BID #180 cap 02/18/21 01/10/22 release blood sugar diagnostic (Blood #300 each 04/08/21 01/07/22 Glucose Test) potassium chloride 20 mEq 40 meq PO BID #180 tab 04/21/21 01/10/22 tablet,extended release (K-Tab) allopurinol 100 mg tablet 100 mg PO DAILY #90 tab-cap 05/27/21 01/10/22 gabapentin 100 mg capsule 100 mg PO TID #270 cap 06/07/21 01/10/22 atorvastatin 40 mg tablet 40 mg PO DAILY #90 tab-cap 08/03/21 01/10/22 duloxetine 60 mg capsule,delayed 60 mg PO DAILY #90 tab-cap 08/03/21 01/10/22 release isosorbide mononitrate 10 mg tablet 10 mg PO BID #180 tab 08/03/21 01/10/22 ropinirole 2 mg tablet 2 mg PO QPM PRN #90 tab 08/03/21 01/10/22 acetaminophen 500 mg tablet 500 mg PO TID #0 tab 09/30/21 01/10/22 (Tylenol Extra Strength) insulin aspart U-100 100 unit/mL 10 unit (0.1 mL) SC TID #30 ml 10/26/21 01/10/22 (3 mL) subcutaneous pen (Novolog Flexpen U-100 Insulin aspart) tramadol 50 mg tablet 50 mg PO TID PRN #30 tab 10/26/21 01/10/22 cholecalciferol (vitamin D3) 25 25 mcg PO DAILY 11/18/21 01/10/22 mcg (1,000 unit) capsule magnesium oxide 400 mg PO BID 11/18/21 01/10/22 sennosides 8.6 mg-docusate sodium 1 tab-cap PO QHS 11/18/21 01/10/22 50 mg tablet (Senexon-S) umeclidinium 62.5 mcg/actuation 1 inh INHALATION DAILY ea 11/30/21 01/10/22 blister powder for inhalation (Incruse Ellipta) insulin glargine 100 unit/mL (3 50 unit (0.5 mL) SC DAILY #90 ml 12/01/21 01/10/22 mL) subcutaneous pen (Basaglar KwikPen U-100 Insulin) torsemide 100 mg tablet See Rx Instructions PO DAILY #135 12/08/21 01/10/22 tab [id number]-oeqpvkmx-erzadkv 1 cap PO TID #270 cap 12/20/21 01/10/22 6,000-19,000-30,000 unit capsule,delayed rel (Creon) levetiracetam 500 mg tablet 500 mg PO BID #180 tab 12/27/21 01/10/22 (Keppra) magnesium chloride 71.5 mg 71.5 mg PO BID #180 tab 12/27/21 01/10/22 (magnesium chloride) tablet,delayed release (Slow-Mag) cephalexin 250 mg tablet 250 mg PO TID #21 tab 01/09/22 Previous Rx's Medication Instructions Recorded lancets 33 gauge (OneTouch Delica #100 each 12/18/18 Lancets) lancets 25 gauge #100 each 01/29/19 aspirin 81 mg tablet,delayed 81 mg PO DAILY #0 tab 06/01/20 release albuterol sulfate 2.5 mg (3 mL) INHALATION Q2H PRN 09/10/20 PRN #180 ml pen needle, diabetic 31 gauge x #450 each 12/10/20 1/ (1st Tier Unifine Pentips) sitagliptin 25 mg tablet (Januvia) 25 mg PO DAILY #90 tab 01/07/21 epinephrine 0.3 mg/0.3 mL 0.3 mg (0.3 mL) IM ONCE #2 ea 02/04/21 injection, auto-injector (EpiPen 2-Erick) metoprolol succinate 100 mg 100 mg PO DAILY #90 tab 02/18/21 tablet,extended release 24 hr omeprazole 40 mg capsule,delayed 40 mg PO BID #180 cap 02/18/21 release blood sugar diagnostic (Blood #300 each 04/08/21 Glucose Test) potassium chloride 20 mEq 40 meq PO BID #180 tab 04/21/21 tablet,extended release (K-Tab) allopurinol 100 mg tablet 100 mg PO DAILY #90 tab-cap 05/27/21 gabapentin 100 mg capsule 100 mg PO TID #270 cap 06/07/21 atorvastatin 40 mg tablet 40 mg PO DAILY #90 tab-cap 08/03/21 duloxetine 60 mg capsule,delayed 60 mg PO DAILY #90 tab-cap 08/03/21 release isosorbide mononitrate 10 mg tablet 10 mg PO BID #180 tab 08/03/21 ropinirole 2 mg tablet 2 mg PO QPM PRN #90 tab 08/03/21 acetaminophen 500 mg tablet 500 mg PO TID #0 tab 09/30/21 (Tylenol Extra Strength) insulin aspart U-100 100 unit/mL 10 unit (0.1 mL) SC TID #30 ml 10/26/21 (3 mL) subcutaneous pen (Novolog Flexpen U-100 Insulin aspart) tramadol 50 mg tablet 50 mg PO TID PRN #30 tab 10/26/21 insulin glargine 100 unit/mL (3 50 unit (0.5 mL) SC DAILY #90 ml 12/01/21 mL) subcutaneous pen (Basaglar KwikPen U-100 Insulin) torsemide 100 mg tablet See Rx Instructions PO DAILY #135 12/08/21 tab ovqbyp-wvhrvraz-yaqgldh 1 cap PO TID #270 cap 12/20/21 6,000-19,000-30,000 unit capsule,delayed rel (Creon) levetiracetam 500 mg tablet 500 mg PO BID #180 tab 12/27/21 (Keppra) magnesium chloride 71.5 mg 71.5 mg PO BID #180 tab 12/27/21 (magnesium chloride) tablet,delayed release (Slow-Mag) cephalexin 250 mg tablet 250 mg PO TID #21 tab 01/09/22 Allergies Allergy/AdvReac Type Severity Reaction Status Date / Time oxycodone Allergy Severe Psychosis Verified 01/03/22 15:24 venom-honey bee Allergy Severe ANAPHYLAXIS Verified 01/03/22 15:24 adhesive Allergy BLISTERS Verified 01/03/22 15:24 General Stated Complaint: Chest Pain STEPHANIE: 2 Review of Systems All systems reviewed & are unremarkable except as noted in HPI and below PFSH All Active Problems Congestive heart failure (Chronic) Preserved ejection fraction-followed by cardiology at [facility] Type 2 diabetes mellitus with diabetic nephropathy (Acute) Coronary artery disease (Chronic) Chronic kidney disease, stage 4 (severe) (Acute) 12/2021, Cr-2.5 Palliative care patient (Acute) Palliative care patient (Acute) Bimalleolar ankle fracture (Acute) s/p ORIF on 10/07 Cyst of lateral meniscus of right knee (Acute) Wound abscess (Acute) Medical History Abnormal mammography 08/10/06 Acute kidney injury superimposed on chronic kidney disease Soskt-gx-nfgdmyl kidney injury Altered mental status Anemia Ankle pain (03/13/14) Annual physical exam (12/14/15) Atrial fibrillation Atrial flutter BMI 40.0-44.9, adult (12/02/14) CAD (coronary artery disease), [place] coronary artery Carpal tunnel syndrome Carpal tunnel syndrome (08/10/06) BILATERAL R S/P SURGERY Cervical disc disorder with myelopathy (08/21/08) S/P surgery x 2 Cervical spondylosis with myelopathy Chest pain Neg Stress test CHF (congestive heart failure) Chronic obstructive lung disease CKD (chronic kidney disease) stage 3, GFR 30-59 ml/min Cr about 2.5 CKD stage 4 due to type 2 diabetes mellitus Closed avulsion fracture of condyle of right femur Closed bimalleolar fracture of right ankle Closed trimalleolar fracture of right ankle (10/03/21) Congestive heart failure Constipation Dehydration Diabetes mellitus 09/20/10 Positive Microalbumin Diabetes mellitus (09/20/10) Diastolic CHF DNR no code (do not resuscitate) DVT (deep venous thrombosis) Dysuria Essential hypertension Essential hypertension (06/13/13) Folate deficiency (02/15/16) Fracture of proximal end of right fibula Gout Gout (07/06/11) Gram-positive bacteremia Greater trochanteric bursitis of left hip Hammer toe Left/right HAP (hospital-acquired pneumonia) (01/15/19) HCAP (healthcare-associated pneumonia) Heart failure with preserved ejection fraction, borderline, class III Hepatomegaly 06/10/04 Hip joint inflamed (09/03/15) Hip pain, left Hip pain, right Hyperglycemia Hyperlipidemia (08/10/00) Hypertension Hypomagnesemia Hypoxia IDDM (insulin dependent diabetes mellitus) Left hip pain Low back pain (04/10/03) DISC HERNIATION L4. MULTILEVEL DJD/SPINAL STENOSIS BY MRI; S/P surgery Lump in neck Macrocytic anemia Medial meniscus tear Menopausal syndrome 07/11/03 Multiple falls Muscle fatigue 03/04/13 Myoclonic epileptic seizures Numbness and tingling in left upper extremity Pancreatic atrophy Posterior tibial tendon dysfunction 02/03/16 Postmenopausal bleeding neg. endometrial biopsy Postoperative wound dehiscence (12/23/15) Prerenal azotemia Primary osteoarthritis of left hip (09/17/15) Pulmonary hypertension Renal impairment (07/11/03) ADRENAL MASS. F/U W/ KINLAW positive microalbumin Renal insufficiency Restless leg syndrome Rotator cuff syndrome (08/01/09) Seizure Shingles Smoker (06/30/16) 01/17/17 1-2 cig/wk SOB (shortness of breath) Spinal stenosis of lumbar region (02/15/16) Spinal stenosis of lumbar region at multiple levels Tarsal tunnel syndrome 06/11/13 Tarsal tunnel syndrome (06/11/13) Tear of lateral meniscus of right knee Trochanteric bursitis 03/18/13 Upper respiratory tract infection (08/03/15) UTI (urinary tract infection) Vaginal atrophy Vitamin D deficiency Vitamin D deficiency Weakness Surgical History Arthrodesis right 2nd toe Cataract (01/07/14) FOLLOWED BY [facility] cervical repair (~10/2008) C6-C7 DISK; RECURRENT SURGERY Cholecystectomy (07/31/13) Endometrial Biopsy NEG H/O arthrodesis right second toe H/O Spinal surgery multiple spine surgeries; low back x 2; She had multilevel DJD and spinal stenosis; disc herniation. 2009-cervical repair; C6-C7 disc; recurrent surgery. History of bilateral tubal ligation 09/11/80 History of gynecologic surgery endometrial biopsy-neg History of hip surgery 11/10/15 left hip arthroplasty 12/04/15-placement of wound VAC to left hip History of orthopedic surgery 09/11/97 tarsal tunnel release Left eye surgery 12/31/17 Ligation of fallopian tube (~1980) Open Carpal Tunnel release Right wrist surgery 10/26/17 Rotator Cuff Repair (~1980) S/P CABG (coronary artery bypass graft) (01/03/19) 4 vessel CABG and LA appendage excision, Dr. Nav Wang, [facility] [place], [place], [place] S/P carpal tunnel release S/P cholecystectomy 09/11/12 S/P rotator cuff repair 09/11/80 SPINE SURGERY Multiple spine surgeries, low back x 2. She had multilevel DJD and spinal stenosis, disc herniation Status post incision and drainage 12/04/15 left hip surgical wound dehiscence and infection tarsal tunnel release (~1997) Total replacement of hip [facility]; LEFT HIP Family History Mother Diabetes Essential hypertension Personal history of malignant neoplasm KIDNEY/LIVER/BRAIN Heart disease Hyperlipidemia Stroke Asthma Father Diabetes Essential hypertension Personal history of malignant neoplasm BONE Heart disease Asthma Sister Diabetes Essential hypertension Depression Heart disease Asthma Grandfather No problems noted. Grandfather No problems noted. Grandmother Personal history of malignant neoplasm UTERINE Grandmother Diabetes Aunt Personal history of malignant neoplasm BREAST Brother Hyperlipidemia Stroke Sister Asthma Son Asthma Daughter Depression Asthma Daughter Asthma Daughter Depression Neoplasm Asthma Brother No problems noted. 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 Pets and animals: Yes Pets and animals: cat(s), dog(s) and horse(s) What is your relationship status?: Panel score (0-1 are the most socially isolated patients): 0 What type of physical activity do you participate in: none, walking and additional Details: would like to start now that it's warm Duration: 15-30 minutes/day Saniya/Restorationism: Spiritism Special saniya needs: No Seatbelt use: always Do you feel safe at home: Yes Do you feel safe in your relationship?: Yes Additional Social history: lives at home with family Exam Narrative Exam Narrative: 1.Const: Well-nourished, Well-developed, appearing stated age 2.Eyes: PERRL, no conjunctival injection, and symmetrical lids. 3.ENT: Atraumatic external nose and ears. Moist MM. Neck: Symmetric, trachea midline, No thyromegaly. 4.CVS: +S1/S2, No murmurs or gallops. Peripheral pulses 2+ and equal in all extremities. Brisk capillary refill in all extremities. 5.RESP: Unlabored respiratory effort. Clear to auscultation bilaterally. No wheezes rales or rhonchi 6.GI: Soft, Nontender/Nondistended, No hepatosplenomegaly. No guarding or rebound. 7.MSK: Normocephalic/Atraumatic, Extremities w/o deformity or ttp No cyanosis or clubbing, Normal movement of all extremities, no calf tenderness or edema. 8.Skin: Warm, Dry. No rashes or lesions. 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 Sensation grossly intact, no focal neurologic deficits. 10.Psych: (AAO) x3. Appropriate mood and affect Course Vital Signs Vital signs: Vital Signs Temperature 36.5 C 01/10/22 15:15 Pulse 89 01/10/22 15:15 Respiratory Rate 15 01/10/22 15:15 Pulse Oximetry 98 01/10/22 15:15 Temperature 36.5 C 01/10/22 15:15 Temperature Source Tympanic 01/10/22 15:15 Pulse 89 01/10/22 15:15 Respiratory Rate 15 01/10/22 15:15 Pulse Oximetry 98 01/10/22 15:15 Oxygen Delivery Method Nasal Cannula 01/10/22 15:15 Oxygen Flow Rate 2 01/10/22 15:15 Pain Level 0 01/10/22 15:15 Lab/Test Results Lab/Test Results: Laboratory Tests Range/Units 01/10/22 15:26 WBC (4.4-10.8) 10^3/uL 13.85 H RBC (3.93-5.22) 10^6/uL 4.29 Hgb (11.2-15.7) g/dL 10.0 L Hct (36.0-46.0) % 35.3 L MCV (80-95) fL 82 MCH (27.0-33.0) pg 23.3 L MCHC (32.0-36.0) % 28.3 L RDW (11.7-14.6) % 17.1 H Plt Count (130-400) 10^3/uL 375 MPV (8.0-11.0) fL 10.1 Immature Gran % 0.5 Neutrophils % 71.4 Lymphocytes % 13.2 Monocytes % 7.8 Eosinophils % 6.4 Basophils % 0.7 Nucleated RBC % (0.0-0.3) % 0.0 Absolute Neutrophils (1.2-6.7) 10^3/uL 9.89 H Absolute Lymphocytes (1.2-3.4) 10^3/uL 1.83 Absolute Monocytes (0.1-0.8) 10^3/uL 1.08 H Absolute Eosinophils (0.0-0.7) 10^3/uL 0.89 H Absolute Basophils (0.0-0.2) 10^3/uL 0.10
[2022-01-10 15:59] LABS: BE (Venous) 7 mmol/L (-2-3); HCO3 (Venous) 31 mmol/L (23-28); O2 Sat (Venous) 97 %; TCO2 (Venous) 29 mmol/L (24-29); pCO2 (Venous) 46 mmHg (41-51); pH (Venous) 7.45 (7.31-7.41); pO2 (Venous) 98 mmHg
[2022-01-10 16:23] LABS: ALT 22 U/L (14-59); AST 13 U/L (15-37); Albumin 3.3 g/dL (3.4-5.0); Alkaline Phosphatase 93 U/L (46-116); Anion Gap 6.3 mmol/L (3-11); BUN 41 mg/dL (7-18); Bilirubin, Total 0.6 mg/dL (0.2-1.0); CO2 29.7 mmol/L (21.0-32.0); Calcium 8.2 mg/dL (8.5-10.1); Chloride 103 mmol/L (98-107); Glucose 172 mg/dL (74-106); NT-proBNP 455 pg/mL (<300); Potassium 3.8 mmol/L (3.5-5.1); Sodium 139 mmol/L (136-145); Total Protein 7.2 g/dL (6.4-8.2); Troponin I < 50 ng/L (<or=60)
[2022-01-10 16:25] LABS: COVID-19 PCR Negative (Negative); Influenza A PCR Negative (Negative); Influenza B PCR Negative (Negative); RSV PCR Negative (Negative)
[2022-01-10 16:26] LABS: Source Nasopharynx
[2022-01-10 16:40] LABS: INR 1.1 (0.9-1.1); PTT Activated 24.1 sec (21.0-27.5); Prothrombin Time 11.1 sec (9.3-11.0)
[2022-01-10 18:49] LABS: Troponin I < 50 ng/L (<or=60)
[2022-01-10 18:58] LABS: Bilirubin Negative (Negative); Blood Negative (Negative); Clarity Clear (Clear); Glucose Negative (Negative); Ketones Negative (Negative); Leukocyte Esterase Trace (Negative); Nitrite Negative (Negative); Specific Gravity 1.015 (1.005-1.025); Urobilinogen 0.2 EU/dL (Up TO 0.2)
[2022-01-10 19:11] LABS: Bacteria Packed HPF (Negative); C & S Indicated? Yes; Crystals Negative HPF (Negative); Epithelial Cells Few HPF (Negative); Mucus Negative (Negative); RBC Negative HPF (0-2); WBC 20-50 HPF (0-5)
--- NOTE | 2022-01-10 19:51 | W.PM.HP.N ---
Date of service: 01/10/22 Time of Service: 19:51 Assessment and Plan Assessment and plan (1) Chest pain: Status: Acute Assessment and plan: CP. I would rate this as high prob ACS (unstable angina). Will cycle troponins and, if remains pain free, would advise stress test in AM (states unable to walk on treadmill due to orthopedic issues so will plan on chemical stress). Reiterates that she does not want any invasive procedure (viz, does not want cath), so if stress test positive, or if clinical suspicion remains high for [place] would advise adjustment of medical regimen. 2. DM: usual regimen, track 3. Seizures: usual Keppra 4. CHF: torsemide as is 5. Pyuria: await culture, appears to have been on Keflex for silva-sensitive E coli (01/07). Will change out to Cipro given pyuria (I have no microscopic urinalysis from that date) Remains DNR History of Present Illness History of Present Illness Chief Complaint: CP Narrative: 71 female with h/o CAD, s/p CABG [address], h/o diastolic heart failure, h/o COPD on home O2. Here with 3 days of crescendo resting chest pain, a pressure, with radiation to jaw, episodes lasting up to 30 minutes at a time, and more frequent over these 3 days. EMS summoned, given NTG with releif within 5-10 minutes. Also given ASA 325. Here in ER has been pain free, with negative trop x2 and no EKG changes. I was asked to evaluate for admission. W/U of further note for negative CXR, white count 13 (baseline) and BNP 455. Patient states that prior CT had different symptomatology, in fact no chest pain at all (states it presented with nausea). 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 Patient indicates that whatever the outcome of today's visit she does not want any further interventional procedures, and reiterates that she is DNR. Review of Systems Narrative: per HPI PFSH All Active Problems (Updated 01/10/22 @ 20:10 by Kiran Grimaldo MD) Chest pain (Acute) Congestive heart failure (Chronic) Preserved ejection fraction-followed by cardiology at [facility] Type 2 diabetes mellitus with diabetic nephropathy (Acute) Coronary artery disease (Chronic) Chronic kidney disease, stage 4 (severe) (Acute) 12/2021, Cr-2.5 Palliative care patient (Acute) Palliative care patient (Acute) Bimalleolar ankle fracture (Acute) s/p ORIF on 10/07 Cyst of lateral meniscus of right knee (Acute) Wound abscess (Acute) Medical History Abnormal mammography 08/10/06 Acute kidney injury superimposed on chronic kidney disease [id number] kidney injury Altered mental status Anemia Ankle pain (03/13/14) Annual physical exam (12/14/15) Atrial fibrillation Atrial flutter BMI 40.0-44.9, adult (12/02/14) CAD (coronary artery disease), [place] coronary artery Carpal tunnel syndrome Carpal tunnel syndrome (08/10/06) BILATERAL R S/P SURGERY Cervical disc disorder with myelopathy (08/21/08) S/P surgery x 2 Cervical spondylosis with myelopathy Chest pain Neg Stress test CHF (congestive heart failure) Chronic obstructive lung disease CKD (chronic kidney disease) stage 3, GFR 30-59 ml/min Cr about 2.5 CKD stage 4 due to type 2 diabetes mellitus Closed avulsion fracture of condyle of right femur Closed bimalleolar fracture of right ankle Closed trimalleolar fracture of right ankle (10/03/21) Congestive heart failure Constipation Dehydration Diabetes mellitus 09/20/10 Positive Microalbumin Diabetes mellitus (09/20/10) Diastolic CHF DNR no code (do not resuscitate) DVT (deep venous thrombosis) Dysuria Essential hypertension Essential hypertension (06/13/13) Folate deficiency (02/15/16) Fracture of proximal end of right fibula Gout Gout (07/06/11) Gram-positive bacteremia Greater trochanteric bursitis of left hip Hammer toe Left/right HAP (hospital-acquired pneumonia) (01/15/19) HCAP (healthcare-associated pneumonia) Heart failure with preserved ejection fraction, borderline, class III Hepatomegaly 06/10/04 Hip joint inflamed (09/03/15) Hip pain, left Hip pain, right Hyperglycemia Hyperlipidemia (08/10/00) Hypertension Hypomagnesemia Hypoxia IDDM (insulin dependent diabetes mellitus) Left hip pain Low back pain (04/10/03) DISC HERNIATION L4. MULTILEVEL DJD/SPINAL STENOSIS BY MRI; S/P surgery Lump in neck Macrocytic anemia Medial meniscus tear Menopausal syndrome 07/11/03 Multiple falls Muscle fatigue 03/04/13 Myoclonic epileptic seizures Numbness and tingling in left upper extremity Pancreatic atrophy Posterior tibial tendon dysfunction 02/03/16 Postmenopausal bleeding neg. endometrial biopsy Postoperative wound dehiscence (12/23/15) Prerenal azotemia Primary osteoarthritis of left hip (09/17/15) Pulmonary hypertension Renal impairment (07/11/03) ADRENAL MASS. F/U W/ KINLAW positive microalbumin Renal insufficiency Restless leg syndrome Rotator cuff syndrome (08/01/09) Seizure Shingles Smoker (06/30/16) 01/17/17 1-2 cig/wk SOB (shortness of breath) Spinal stenosis of lumbar region (02/15/16) Spinal stenosis of lumbar region at multiple levels Tarsal tunnel syndrome 06/11/13 Tarsal tunnel syndrome (06/11/13) Tear of lateral meniscus of right knee Trochanteric bursitis 03/18/13 Upper respiratory tract infection (08/03/15) UTI (urinary tract infection) Vaginal atrophy Vitamin D deficiency Vitamin D deficiency Weakness Surgical History Arthrodesis right 2nd toe Cataract (01/07/14) FOLLOWED BY [employer] cervical repair (~10/2008) C6-C7 DISK; RECURRENT SURGERY Cholecystectomy (07/31/13) Endometrial Biopsy NEG H/O arthrodesis right second toe H/O Spinal surgery multiple spine surgeries; low back x 2; She had multilevel DJD and spinal stenosis; disc herniation. 2008-cervical repair; C6-C7 disc; recurrent surgery. History of bilateral tubal ligation 09/11/80 History of gynecologic surgery endometrial biopsy-neg History of hip surgery 11/10/15 left hip arthroplasty 12/04/15-placement of wound VAC to left hip History of orthopedic surgery 09/11/97 tarsal tunnel release Left eye surgery 12/31/17 Ligation of fallopian tube (~1980) Open Carpal Tunnel release Right wrist surgery 10/26/17 Rotator Cuff Repair (~1980) S/P CABG (coronary artery bypass graft) (01/03/19) 4 vessel CABG and [place] Nav [place] [facility] [place] S/P carpal tunnel release S/P cholecystectomy 09/11/12 S/P rotator cuff repair 09/11/80 SPINE SURGERY Multiple spine surgeries, low back x 2. She had multilevel DJD and spinal stenosis, disc herniation Status post incision and drainage 12/04/15 left hip surgical wound dehiscence and infection tarsal tunnel release (~1997) Total replacement of hip [facility]; LEFT HIP Family History Mother Diabetes Essential hypertension Personal history of malignant neoplasm KIDNEY/LIVER/BRAIN Heart disease Hyperlipidemia Stroke Asthma Father Diabetes Essential hypertension Personal history of malignant neoplasm BONE Heart disease Asthma Sister Diabetes Essential hypertension Depression Heart disease Asthma Grandfather No problems noted. Grandfather No problems noted. Grandmother Personal history of malignant neoplasm UTERINE Grandmother Diabetes Aunt Personal history of malignant neoplasm BREAST Brother Hyperlipidemia Stroke Sister Asthma Son Asthma Daughter Depression Asthma Daughter Asthma Daughter Depression Neoplasm Asthma Brother No problems noted. 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 Pets and animals: Yes Pets and animals: cat(s), dog(s) and horse(s) What is your relationship status?: Panel score (0-1 are the most socially isolated patients): 0 What type of physical activity do you participate in: none, walking and additional Details: would like to start now that it's warm Duration: 15-30 minutes/day Saniya/Jehovah'S Witness: Roman Catholic Special saniya needs: No Seatbelt use: always Do you feel safe at home: Yes Do you feel safe in your relationship?: Yes Additional Social history: lives at home with family Meds Allergies and Home Medications Allergies Allergy/AdvReac Type Severity Reaction Status Date / Time oxycodone Allergy Severe Psychosis Verified 01/03/22 15:24 venom-honey bee Allergy Severe ANAPHYLAXIS Verified 01/03/22 15:24 adhesive Allergy BLISTERS Verified 01/03/22 15:24 Home Medications Medication Instructions Recorded Confirmed Type lancets 33 gauge (OneTouch Delica #100 each 12/18/18 01/07/22 Rx Lancets) lancets 25 gauge #100 each 01/29/19 01/07/22 Rx B-complex with vitamin C (Super B 1 tab PO DAILY 09/19/19 01/10/22 History Complex-Vitamin C) aspirin 81 mg tablet,delayed 81 mg PO DAILY #0 tab 06/01/20 01/10/22 Rx release albuterol sulfate 2.5 mg (3 mL) INHALATION Q2H PRN 09/10/20 01/10/22 Rx PRN #180 ml pen needle, diabetic 31 gauge x #450 each 12/10/20 01/07/22 Rx 1/4 (1st Tier Unifine Pentips) budesonide-formoterol HFA 160 2 puff INHALATION BID 01/07/21 01/10/22 History mcg-4.5 mcg/actuation aerosol inhaler (Symbicort) sitagliptin 25 mg tablet (Januvia) 25 mg PO DAILY #90 tab 01/07/21 01/10/22 Rx epinephrine 0.3 mg/0.3 mL 0.3 mg (0.3 mL) IM ONCE #2 ea 02/04/21 01/10/22 Rx injection, auto-injector (EpiPen 2-Erick) metoprolol succinate 100 mg 100 mg PO DAILY #90 tab 02/18/21 01/10/22 Rx tablet,extended release 24 hr omeprazole 40 mg capsule,delayed 40 mg PO BID #180 cap 02/18/21 01/10/22 Rx release blood sugar diagnostic (Blood #300 each 04/08/21 01/07/22 Rx Glucose Test) potassium chloride 20 mEq 40 meq PO BID #180 tab 04/21/21 01/10/22 Rx tablet,extended release (K-Tab) allopurinol 100 mg tablet 100 mg PO DAILY #90 tab-cap 05/27/21 01/10/22 Rx gabapentin 100 mg capsule 100 mg PO TID #270 cap 06/07/21 01/10/22 Rx atorvastatin 40 mg tablet 40 mg PO DAILY #90 tab-cap 08/03/21 01/10/22 Rx duloxetine 60 mg capsule,delayed 60 mg PO DAILY #90 tab-cap 08/03/21 01/10/22 Rx release isosorbide mononitrate 10 mg tablet 10 mg PO BID #180 tab 08/03/21 01/10/22 Rx ropinirole 2 mg tablet 2 mg PO QPM PRN #90 tab 08/03/21 01/10/22 Rx acetaminophen 500 mg tablet 500 mg PO TID #0 tab 09/30/21 01/10/22 Rx (Tylenol Extra Strength) insulin aspart U-100 100 unit/mL 10 unit (0.1 mL) SC TID #30 ml 10/26/21 01/10/22 Rx (3 mL) subcutaneous pen (Novolog Flexpen U-100 Insulin aspart) tramadol 50 mg tablet 50 mg PO TID PRN #30 tab 10/26/21 01/10/22 Rx cholecalciferol (vitamin D3) 25 25 mcg PO DAILY 11/18/21 01/10/22 History mcg (1,000 unit) capsule magnesium oxide 400 mg PO BID 11/18/21 01/10/22 History sennosides 8.6 mg-docusate sodium 1 tab-cap PO QHS 11/18/21 01/10/22 History 50 mg tablet (Senexon-S) umeclidinium 62.5 mcg/actuation 1 inh INHALATION DAILY ea 11/30/21 01/10/22 History blister powder for inhalation (Incruse Ellipta) insulin glargine 100 unit/mL (3 50 unit (0.5 mL) SC DAILY #90 ml 12/01/21 01/10/22 Rx mL) subcutaneous pen (Basaglar KwikPen U-100 Insulin) torsemide 100 mg tablet See Rx Instructions PO DAILY #135 12/08/21 01/10/22 Rx tab qnkwak-ughlnvxv-zixyguk 1 cap PO TID #270 cap 12/20/21 01/10/22 Rx 6,000-19,000-30,000 unit capsule,delayed rel (Creon) levetiracetam 500 mg tablet 500 mg PO BID #180 tab 12/27/21 01/10/22 Rx (Keppra) magnesium chloride 71.5 mg 71.5 mg PO BID #180 tab 12/27/21 01/10/22 Rx (magnesium chloride) tablet,delayed release (Slow-Mag) cephalexin 250 mg tablet 250 mg PO TID #21 tab 01/09/22 Rx Exam Narrative Exam Narrative: 119/46, 67, 36.5, 18, 100% (2LNC, baseline). HEENT atraumatic; neck supple, JVP approx 6-8 cm; lungs diminished but clear; heart distant but RRR; abdomen soft and NT; extremities w/o edema, pedal pulses weak with feet warm and pink; neuro Ox3, lucid, moves all 4s Results Labs Result diagrams: 01/10/22 15:26 01/10/22 15:26 Labs: Laboratory Results - last 24 hr 01/10/22 01/10/22 01/10/22 15:26 15:26 15:37 WBC 13.85 H RBC 4.29 Hgb 10.0 L Hct 35.3 L MCV 82 MCH 23.3 L MCHC 28.3 L RDW 17.1 H Plt Count 375 MPV 10.1 Immature Gran % 0.5 Neutrophils % 71.4 Lymphocytes % 13.2 Monocytes % 7.8 Eosinophils % 6.4 Basophils % 0.7 Nucleated RBC % 0.0 Absolute Neutrophils 9.89 H Absolute Lymphocytes 1.83 Absolute Monocytes 1.08 H Absolute Eosinophils 0.89 H Absolute Basophils 0.10 PT INR APTT VBG pH VBG pCO2 VBG pO2 VBG HCO3 VBG Total CO2 VBG O2 Saturation VBG Base Excess Sodium 139 Potassium 3.8 Chloride 103 Carbon Dioxide 29.7 Anion Gap 6.3 BUN 41 H Creatinine 2.0 H Estimated GFR/1.73 m2 24.70 Glucose 172 H Calcium 8.2 L Total Bilirubin 0.6 AST 13 L ALT 22 Alkaline Phosphatase 93 Troponin I < 50 NT-Pro-B Natriuret Pep 455 H Total Protein 7.2 Albumin 3.3 L Urine Color Urine Clarity Urine pH Ur Specific [place] Urine Protein Urine Ketones Urine Blood Urine Nitrite Urine Bilirubin Urine Urobilinogen Ur Leukocyte Esterase Urine RBC Urine WBC Ur Epithelial Cells Urine Crystals Urine Bacteria Urine Mucus Ur Culture Indicated? Urine Glucose COVID-19 Source Nasopharynx SARS-CoV-2 (PCR) Negative Influenza Type A (PCR) Negative Influenza Type B (PCR) Negative RSV (PCR) Negative 01/10/22 01/10/22 01/10/22 15:37 15:54 18:23 WBC RBC Hgb Hct MCV MCH MCHC RDW Plt Count MPV Immature Gran % Neutrophils % Lymphocytes % Monocytes % Eosinophils % Basophils % Nucleated RBC % Absolute Neutrophils Absolute Lymphocytes Absolute Monocytes Absolute Eosinophils Absolute Basophils PT 11.1 H INR 1.1 APTT 24.1 VBG pH 7.45 H VBG pCO2 46 VBG pO2 98 VBG HCO3 31 H VBG Total CO2 29 VBG O2 Saturation 97 VBG Base Excess 7 H Sodium Potassium Chloride Carbon Dioxide Anion Gap BUN Creatinine Estimated GFR/1.73 m2 Glucose Calcium Total Bilirubin AST ALT Alkaline Phosphatase Troponin I < 50 NT-Pro-B Natriuret Pep Total Protein Albumin Urine Color Urine Clarity Urine pH Ur Specific [place] Urine Protein Urine Ketones Urine Blood Urine Nitrite Urine Bilirubin Urine Urobilinogen Ur Leukocyte Esterase Urine RBC Urine WBC Ur Epithelial Cells Urine Crystals Urine Bacteria Urine Mucus Ur Culture Indicated? Urine Glucose COVID-19 Source SARS-CoV-2 (PCR) Influenza Type A (PCR) Influenza Type B (PCR) RSV (PCR) 01/10/22 18:40 WBC RBC Hgb Hct MCV MCH MCHC RDW Plt Count MPV Immature Gran % Neutrophils % Lymphocytes % Monocytes % Eosinophils % Basophils % Nucleated RBC % Absolute Neutrophils Absolute Lymphocytes Absolute Monocytes Absolute Eosinophils Absolute Basophils PT INR APTT VBG pH VBG pCO2 VBG pO2 VBG HCO3 VBG Total CO2 VBG O2 Saturation VBG Base Excess Sodium Potassium Chloride Carbon Dioxide Anion Gap BUN Creatinine Estimated GFR/1.73 m2 Glucose Calcium Total Bilirubin AST ALT Alkaline Phosphatase Troponin I NT-Pro-B Natriuret Pep Total Protein Albumin Urine Color Yellow Urine Clarity Clear Urine pH 6.0 Ur Specific [place] 1.015 Urine Protein Negative Urine Ketones Negative Urine Blood Negative Urine Nitrite Negative Urine Bilirubin Negative Urine Urobilinogen 0.2 Ur Leukocyte Esterase Trace H Urine RBC Negative Urine WBC 20-50 H Ur Epithelial Cells Few Urine Crystals Negative Urine Bacteria Packed Urine Mucus Negative Ur Culture Indicated? Yes Urine Glucose Negative COVID-19 Source SARS-CoV-2 (PCR) Influenza Type A (PCR) Influenza Type B (PCR) RSV (PCR) Last Vital Signs Temp 36.5 C 01/10/22 15:15 Pulse 67 01/10/22 19:01 Resp 18 01/10/22 19:01 BP 119/46 L 01/10/22 19:01 Pulse Ox 100 01/10/22 19:01
[2022-01-10] MEDS: Sennosides/Docusate Sodium TAB 1 TAB PO (22:37)
[2022-01-10] MEDS: traMADol 50 MG TAB PO (22:38)
[2022-01-10] MEDS: rOPINIRole 1 MG TAB 2 MG PO (22:38)
[2022-01-10 23:33] LABS: Troponin I < 50 ng/L (<or=60)
[2022-01-10] MEDS: levETIRAcetam 250 MG TAB 500 MG PO (23:45)
[2022-01-10] MEDS: Isosorbide Mononitrate 10 MG TAB PO (23:46)
[2022-01-10] MEDS: Gabapentin 100 MG CAP PO (23:46)
[2022-01-10] MEDS: Magnesium Chloride 64 MG TABCR PO (23:47)
[2022-01-10] MEDS: Omeprazole 20 MG CAPCR 40 MG PO (23:48)
[2022-01-10] MEDS: Potassium Chloride 20 MEQ TABCR 40 MEQ PO (23:49)
[2022-01-11] VITALS (57 sets, daily range): BP systolic 89–157; BP diastolic 40–81; PULSE 59–97; RESP 17–43; TEMP 35.4–36.5; O2SAT 92–98
[2022-01-11] MEDS: Potassium Chloride 20 MEQ TABCR 40 MEQ PO ×2 (08:39→19:48)
[2022-01-11] MEDS: Omeprazole 20 MG CAPCR 40 MG PO ×2 (08:40→19:48)
[2022-01-11] MEDS: Atorvastatin 40 MG TAB PO (08:40)
[2022-01-11] MEDS: DULoxetine 30 MG CAP 60 MG PO (08:40)
[2022-01-11] MEDS: Aspirin E.C. 81 MG TABEC PO (08:40)
[2022-01-11] MEDS: Magnesium Chloride 64 MG TABCR PO ×2 (08:40→19:47)
[2022-01-11] MEDS: Gabapentin 100 MG CAP PO ×3 (08:41→19:48)
[2022-01-11] MEDS: Insulin Glargine 300 UNITS/3 ML PEN 50 UNITS SC (08:41)
[2022-01-11] MEDS: levETIRAcetam 500 MG TAB PO ×2 (08:41→19:48)
[2022-01-11] MEDS: Insulin Aspart 300 UNITS/3 ML PEN SC ×3 (08:43→18:15)
[2022-01-11] MEDS: Normal Saline Flush 10 ML SYR (08:51)
[2022-01-11] MEDS: Torsemide 100 MG TAB 150 MG PO (09:00)
[2022-01-11] MEDS: traMADol 50 MG TAB PO ×2 (09:14→19:48)
--- NOTE | 2022-01-11 10:00 | PGE_ITS ---
Date of Service Date of service: 01/11/22 Time of Service: 10:00 Assessment and Plan Assessment and plan (1) Chest pain: Status: Acute Assessment and plan: Unclear as to whether her episode of chest pain is secondary to unstable angina versus other etiologies such as uncontrolled atrial fibrillation. Nevertheless given her history of 3 days of chest discomfort it is unlikely that this is unstable angina as her troponins were normal. She very well may have had periods of uncontrolled atrial fibrillation. However her rate and rhythm are well controlled she is sinus rhythm with only occasional PACs. At home her coronary artery disease is treated with atorvastatin and aspirin as well as Toprol-XL 100 mg daily and isosorbide mononitrate. Heart failure was treated wi th torsemide however she does not appear to be on an MARTIR inhibitor or ARB nor is she on ARB/NI. Patient will have a Lexiscan stress MPI study and I will discuss the results with her and discuss what options she has i.e. medical therapy versus referral for cardiac catheterization. (2) Congestive heart failure: Status: Chronic Assessment and plan: She does not appear to be in acute congestive heart failure. Her proBNP is at her baseline. She has no peripheral edema. She does have some fine bibasilar rales but she also has some underlying COPD as well. She still has room for adjustment to get her on goal-directed therapy including addition of spironolactone and/or Entresto or an ARB or a MARTIR inhibitor. At this point since she is not in acute congestive heart failure I am not going to make any changes. 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 (3) Type 2 diabetes mellitus with diabetic nephropathy: Status: Acute Assessment and plan: Blood sugars seem to be under reasonable control this admission running at 145 mg/dL this morning. She remains on Lantus 15 units daily along with insulin sensitive sliding scale. She is on sitagliptin at home. (4) Coronary artery disease: Status: Chronic Assessment and plan: Imdur and Toprol-XL on hold this morning while she undergoes stress MPI Lexiscan. (5) Atrial fibrillation: Assessment and plan: History of atrial fibrillation and atrial flutter. Currently maintained on Toprol XL. Subjective Subjective Interval history since last seen: Patient was admitted last night for symptoms of unstable angina. However upon further interview with her it sounds like she may have been having uncontrolled atrial fibrillation. She said her symptoms started on Monday and went on Monday and again Monday. It would go on for hours which she had palpitations and chest tightness along with some shortness of breath. However her EKG and telemetry does not demonstrate any atrial fibrillation. She does have some PACs on telemetry overnight. EKG did not show any acute injury or ischemic pattern. EKG demonstrates sinus rhythm rate of 80 bpm possible right ventricular hypertrophy with prominent R waves in the anterior precordial leads. No ST depression or ST elevation. No T wave changes. Serial troponin levels were normal at less than 50x3 sets. Her proBNP was minimally elevated at 455 which is similar to her previous level of 510 on 01/07/2022. As well as her level of 586 on 12/27/2021. In the recent past she has been as high as 1100. Patient is scheduled for Lexiscan stress MPI later this morning. If this is negative for ischemia she will be discharged this afternoon. I talked with her about the possibility that may show some new ischemic changes. She is reluctant to have a cardiac catheterization as that she feels she did not do all that well after her triple bypass graft in 2019. We talked about medical management versus cardiac catheterization with PCI intervention. She will think about it. Exam Narrative Exam Narrative: Sandy is sitting up in her chair she just finished bathing. She is not in a distress denies any current chest pain or pressure denies any dizziness and denies any dyspnea. Lungs with fine bibasilar rales no rhonchi or wheezes Heart is regular rate and rhythm Abdomen obese soft nontender Legs and feet without pitting edema Objective Last Vital Signs Temp 36.5 C 01/11/22 08:05 Pulse 70 01/11/22 08:05 Resp 30 H 01/11/22 07:01 BP 114/75 01/11/22 07:01 Pulse Ox 97 01/11/22 06:01 Laboratory Results - last 24 hr 01/10/22 01/10/22 01/10/22 15:26 15:26 15:37 WBC 13.85 H RBC 4.29 Hgb 10.0 L Hct 35.3 L MCV 82 MCH 23.3 L MCHC 28.3 L RDW 17.1 H Plt Count 375 MPV 10.1 Immature Gran % 0.5 Neutrophils % 71.4 Lymphocytes % 13.2 Monocytes % 7.8 Eosinophils % 6.4 Basophils % 0.7 Nucleated RBC % 0.0 Absolute Neutrophils 9.89 H Absolute Lymphocytes 1.83 Absolute Monocytes 1.08 H Absolute Eosinophils 0.89 H Absolute Basophils 0.10 PT INR APTT VBG pH VBG pCO2 VBG pO2 VBG HCO3 VBG Total CO2 VBG O2 Saturation VBG Base Excess Sodium 139 Potassium 3.8 Chloride 103 Carbon Dioxide 29.7 Anion Gap 6.3 BUN 41 H Creatinine 2.0 H Estimated GFR/1.73 m2 24.70 Glucose 172 H Calcium 8.2 L Total Bilirubin 0.6 AST 13 L ALT 22 Alkaline Phosphatase 93 Troponin I < 50 NT-Pro-B Natriuret Pep 455 H Total Protein 7.2 Albumin 3.3 L Urine Color Urine Clarity Urine pH Ur Specific [place] Urine Protein Urine Ketones Urine Blood Urine Nitrite Urine Bilirubin Urine Urobilinogen Ur Leukocyte Esterase Urine RBC Urine WBC Ur Epithelial Cells Urine Crystals Urine Bacteria Urine Mucus Ur Culture Indicated? Urine Glucose COVID-19 Source Nasopharynx SARS-CoV-2 (PCR) Negative Influenza Type A (PCR) Negative Influenza Type B (PCR) Negative RSV (PCR) Negative 01/10/22 01/10/22 01/10/22 15:37 15:54 18:23 WBC RBC Hgb Hct MCV MCH MCHC RDW Plt Count MPV Immature Gran % Neutrophils % Lymphocytes % Monocytes % Eosinophils % Basophils % Nucleated RBC % Absolute Neutrophils Absolute Lymphocytes Absolute Monocytes Absolute Eosinophils Absolute Basophils PT 11.1 H INR 1.1 APTT 24.1 VBG pH 7.45 H VBG pCO2 46 VBG pO2 98 VBG HCO3 31 H VBG Total CO2 29 VBG O2 Saturation 97 VBG Base Excess 7 H Sodium Potassium Chloride Carbon Dioxide Anion Gap BUN Creatinine Estimated GFR/1.73 m2 Glucose Calcium Total Bilirubin AST ALT Alkaline Phosphatase Troponin I < 50 NT-Pro-B Natriuret Pep Total Protein Albumin Urine Color Urine Clarity Urine pH Ur Specific [place] Urine Protein Urine Ketones Urine Blood Urine Nitrite Urine Bilirubin Urine Urobilinogen Ur Leukocyte Esterase Urine RBC Urine WBC Ur Epithelial Cells Urine Crystals Urine Bacteria Urine Mucus Ur Culture Indicated? Urine Glucose COVID-19 Source SARS-CoV-2 (PCR) Influenza Type A (PCR) Influenza Type B (PCR) RSV (PCR) 01/10/22 01/10/22 18:40 22:58 WBC RBC Hgb Hct MCV MCH MCHC RDW Plt Count MPV Immature Gran % Neutrophils % Lymphocytes % Monocytes % Eosinophils % Basophils % Nucleated RBC % Absolute Neutrophils Absolute Lymphocytes Absolute Monocytes Absolute Eosinophils Absolute Basophils PT INR APTT VBG pH VBG pCO2 VBG pO2 VBG HCO3 VBG Total CO2 VBG O2 Saturation VBG Base Excess Sodium Potassium Chloride Carbon Dioxide Anion Gap BUN Creatinine Estimated GFR/1.73 m2 Glucose Calcium Total Bilirubin AST ALT Alkaline Phosphatase Troponin I < 50 NT-Pro-B Natriuret Pep Total Protein Albumin Urine Color Yellow Urine Clarity Clear Urine pH 6.0 Ur Specific [place] 1.015 Urine Protein Negative Urine Ketones Negative Urine Blood Negative Urine Nitrite Negative Urine Bilirubin Negative Urine Urobilinogen 0.2 Ur Leukocyte Esterase Trace H Urine RBC Negative Urine WBC 20-50 H Ur Epithelial Cells Few Urine Crystals Negative Urine Bacteria Packed Urine Mucus Negative Ur Culture Indicated? Yes Urine Glucose Negative COVID-19 Source SARS-CoV-2 (PCR) Influenza Type A (PCR) Influenza Type B (PCR) RSV (PCR)
--- NOTE | 2022-01-11 10:41 | INITIAL_ITS ---
- If Service Date Differs Date of service: 01/11/22 Time of Service: 10:41 Care Management Initial Assess REASON FOR HOSPITALIZATION:: Chest Pain PAST MEDICAL HISTORY/PAST SURGICAL HISTORY:: All Active Problems. Chest pain (Acute). Congestive heart failure (Chronic). Preserved ejection fraction- followed by cardiology at [facility]. Type 2 diabetes mellitus with diabetic nephropathy (Acute). Coronary artery disease (Chronic). Chronic kidney disease, stage 4 (severe) (Acute). 12/2021, Cr-2.5. Palliative care patient (Acute). Palliative care patient (Acute). Bimalleolar ankle fracture (Acute). s/p ORIF on 10/07. Cyst of lateral meniscus of right knee (Acute). Wound abscess (Acute). Medical History. Abnormal mammography. 08/10/06. Acute kidney injury superimposed on chronic kidney disease. [id number]-mg-[id number] kidney injury. Altered mental status. Anemia. Ankle pain (03/13/14). Annual physical exam (12/14/15). Atrial fibrillation. Atrial flutter. BMI 40.0-44.9, adult (12/02/14). CAD (coronary artery disease), [place] coronary artery. Carpal tunnel syndrome. Carpal tunnel syndrome (08/10/06). BILATERAL. R S/P SURGERY. Cervical disc disorder with myelopathy (08/21/08). S/P surgery x 2. Cervical spondylosis with myelopathy. Chest pain. Neg Stress test. CHF (congestive heart failure). Chronic obstructive lung disease. CKD (chronic kidney disease) stage 3, GFR 30-59 ml/min. Cr about 2.5. CKD stage 4 due to type 2 diabetes mellitus. Closed avulsion fracture of condyle of right femur. Closed bimalleolar fracture of right ankle. Closed trimalleolar fracture of right ankle (10/03/21). Congestive heart failure. Constipation. Dehydration. Diabetes mellitus. 09/20/10 Positive Microalbumin. Diabetes mellitus (09/20/10). Diastolic CHF. DNR no code (do not resuscitate). DVT (deep venous thrombosis). Dysuria. Essential hypertension. Essential hypertension (06/13/13). Folate deficiency (02/15/16). Fracture of proximal end of right fibula. Gout. Gout (07/06/11). Gram-positive bacteremia. Greater trochanteric bursitis of left hip. Hammer toe. Left/right. HAP (hospital- acquired pneumonia) (01/15/19). HCAP (healthcare-associated pneumonia). Heart failure with preserved ejection fraction, borderline, class III. Hepatomegaly. 06/10/04. Hip joint inflamed (09/03/15). Hip pain, left. Hip pain, right. Hyperglycemia. Hyperlipidemia (08/10/00). Hypertension. Hypomagnesemia. Hypo mukund. IDDM (insulin dependent diabetes mellitus). Left hip pain. Low back pain (04/10/03). DISC HERNIATION L4. MULTILEVEL DJD/SPINAL STENOSIS BY MRI; S/P surgery. Lump in neck. Macrocytic anemia. Medial meniscus tear. Menopausal syndrome. 07/11/03. Multiple falls. Muscle fatigue. 03/04/13. Myoclonic epileptic seizures. Numbness and tingling in left upper extremity. Pancreatic atrophy. Posterior tibial tendon dysfunction. 02/03/16. Postmenopausal bleeding. neg. endometrial biopsy. Postoperative wound dehiscence (12/23/15). Prerenal azotemia. Primary osteoarthritis of left hip (09/17/15). Pulmonary hypertension. Renal impairment (07/11/03). ADRENAL MASS. F/U W/ KINLAW. positive microalbumin. Renal insufficiency. Restless leg syndrome. Rotator cuff syndrome (08/01/09). Seizure. Shingles. Smoker (06/30/16). 01/17/17 1-2 cig/wk. SOB (shortness of breath). Spinal stenosis of lumbar region (02/15/16). Spinal stenosis of lumbar region at multiple levels. Tarsal tunnel syndrome. 06/11/13. Tarsal tunnel syndrome (06/11/13). Tear of lateral meniscus of right knee. Trochanteric bursitis. 03/18/13. Upper respiratory tract infection (08/03/15). UTI (urinary tract infection). Vaginal atrophy. Vitamin D deficiency. Vitamin D deficiency. Weakness. Surgical History. Arthrodesis. right 2nd toe. Cataract (01/07/14). FOLLOWED BY [facility]. cervical repair (~10/2008). C6-C7 DISK; RECURRENT SURGERY. Cholecystectomy (07/31/13). Endometrial Biopsy. NEG. H/O arthrodesis. right second toe. H/O Spinal surgery. multiple spine surgeries; low back x 2; She had multilevel DJD and spinal stenosis; disc herniation. 2009-cervical repair; C6-C7 disc; recurrent surgery. History of bilateral tubal ligation. 09/11/80. History of gynecologic surgery. endometrial biopsy-neg. History of hip surgery. 11/10/15 left hip arthroplasty 12/04/15-placement of wound VAC to left hip. History of orthopedic surgery. 09/11/97 tarsal tunnel release. Left eye surgery. 12/31/17. Ligation of fallopian tube (~1980). Open Carpal Tunnel release. Right wrist surgery. 10/26/17. Rotator Cuff Repair (~1980). S/P CABG (coronary artery bypass graft) (01/03/19). 4 vessel CABG and LA appendage excision, Dr. Nav Wang, [facility] [place], [place] S/P carpal tunnel release. S/P cholecystectomy. 09/11/12. S/P rotator cuff repair. 09/11/80. SPINE SURGERY. Multiple spine surgeries, low back x 2. She had multilevel DJD and spinal stenosis, disc herniation. Status post incision and drainage. 12/04/15 left hip surgical wound dehiscence and infection. tarsal tunnel release (~1997). Total replacement of hip. [facility]; LEFT HIP PREVIOUS FUNCTIONAL STATUS/SOCIAL/FAMILY SUPPORTS:: Ann-Marie resides in [place] with her daughter, Yuly. She is and has four adult children. Ann-Marie spends her time at home watching television, crocheting, baking, and shares that her dog rarely leaves her side when she is home. 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 Her children and grandchildren are supportive. She is independent with her ADL's, although she reports not being as active since recent injuries. CURRENT FUNCTIONAL STATUS:: Bibi was sitting up in a chair when CM met with her. She stated that she is feeling good today, and not having any chest pain. Per report, she had a stress test today, awaiting results. Her RN stated that she missed a follow up appointment with Dr. Edouard today, and it was rescheduled for 02/01/22. Bibi stated that she has been living in her house with her daughter and her daughter's boyfriend, but they are planning to purchase the home from her, and she is going to travel and stay with family and friends once she is cleared by Dr. Edouard. CM will continue to follow. ADVANCE DIRECTIVES:: On file. [facility] appointment also on file, daughter, Savannah, listed as agent. Has patient been provided with info about the portal/API?: Yes Did the patient sign up for the portal?: No CODE STATUS:: DNR/DNI INSURANCE COVERAGE / FINANCIAL ISSUES:: [employer] (MCR replacement), [facility] CURRENT HOME/COMMUNITY SERVICES/EQUIPMENT:: Current HH RN, PT. Tub seat, FWW, glucometer, O2. PRIMARY CARE PHYSICIAN:: Laisha Mcmahon POTENTIAL DISCHARGE NEEDS:: Evaluations for further needs, follow up appointments. PATIENT/FAMILY EDUCATION NEEDS:: Review discharge instructions and limitations, discussion of self care needs including ask me three. ANTICIPATED BARRIERS TO DISCHARGE:: None identified at this time. TRANSPORTATION:: Via private vehicle vs RCT w/c van. PLAN:: Anticipate Bibi will return home with a resumption of HH support when she is medically cleared. She will transport via private vehicle vs w/c van, depending on her mobility at the time of her disposition. She will follow up with her PCP and discharge plan of care. CM will continue to follow.
--- NOTE | 2022-01-11 10:47 | W.INDIABCONS ---
Date of service: 01/11/22 Time of Service: 10:48 Diabetes Inpatient Consult Reason for Visit: dm DESCRIPTION/ASSESSMENT: 71 year old female admitted to ICU with chest pain with long standing hx of DM2, obestiy, CAD, s/p CABG, COPD. Most recent A1C: 7.8%(01/07/22) indicates adequately controlled diabetes in view of age and co morbidities on current home DM meds (aspart 10 u TID, 50 u lantus HS, stiagliptin 25 mg). Met with Bibi today. She is knowledgeable about her Dm medication regime and reports good glycemic control. Not considered at nutritional risk. PLAN: Will follow and support as needed Time Spent in Nutritional Counseling and Treatment: 5
[2022-01-11] MEDS: Fosfomycin Tromethamine 3 GM PACKET PO (11:00)
--- NOTE | 2022-01-11 11:30 | DI.NM_ITS ---
APPROVED REPORT Exam: Pharmacologic Patient Location: In-Patient Room/Bed: 220 Stress Nurse: Nallely Castañeda RN Ordering Provider:SANDRA BRO, Contact Number: BMI: 38.44 Baseline Rhythm: Sinus Rhythm Indications: Angina Medical History Medical History: CHF, DM II, Palliative care, HTN, HLD, Afib/flutter, CKD, pulm HTN Cardiac Medications: Atorvastatin, Aspirin, Atenolol, Potassium, Omeprazole, Metoprolol Succinate, Ma gnesium, Isosorbide, Torsemide, Inhalers Allergies: Oxycodone, bee venom, adhesive Cardiac Risk Factors: Family hx, CVD, COPD, HTN, DM II, former smoker, HLD, Obesity Previous Cardiac Procedures: CABG x4, previous ND Pretest Chest Pain Characteristics: None Exercise History: Sedentary Physical Disabilities: Ankle Heart Sounds: Regular Stress Test Details Test: Pharmacologic stress testing performed using 0.4 mg of regadenoson per 5 mL given IV over 10 s econds. Reason for pharmacologic stress test: physical limitation. Nuclear Acquisition: Rest Tc-99m/Stress Tc-99m 1 day Rest Isotope: Tc-99m Sestamibi. Dose: 12.0 Date: 01/11/2022 Injection Time: 11:15 Stress Isotope: Tc-99m Sestamibi. Dose: 36.6 Date: 01/11/2022 Injection Time: 13:27 HR Resting HR Supine: 70 bpm Max Heart Rate (APMHR): 151.069019 bpm Target HR (85% APMHR): 128.568731 bpm Max HR Achieved: 85 bpm % of APMHR: 56.29 Recovery HR: 81 bpm BP Resting BP Supine: 128/64 mmHg Max BP: 128/64 mmHg Recovery BP: 110/68 mmHg ECG Resting ECG: Sinus Rhythm Ectopy: None Stress ECG: Sinus Rhythm ST Change: No significant ST segment changes noted Arrhythmia: Rare unifocal PVC Recovery ECG: Sinus Rhythm, Recovery ST Change: No significant ST segment changes noted Clinical Stress Symptoms: Shortness of breath, Stomach cramps Rate Pressure Product: [id number] Stress ECG Conclusion 1. The resting electrocardiogram showed minor nondiagnostic ST abnormalities 2. The patient underwent pharmacologic stress with regadenoson 3. Peak heart rate achieved was 56% of predicted for age 4. Electrocardiographic portion of the test was nondiagnostic due to inadequate heart rate 5. See MPI report Stress Test Summary STAGE HR BP Symptoms NOTES Supine 70 128/64 SP02 97% 1 min post Lexiscan injection 77 124/60 shortness of breath shortness of breath improved by minute 4, SP02 97% 3 min post Lexiscan injection 80 110/60 SP02 97% 6 min post Lexiscan injection 81 110/68 symptoms resolved SP02 97% MPI Conclusion Normal myocardial perfusion without evidence of ischemia or prior infarction EF 63%, normal wall motion Radiologist Interpretation Radiologist agrees with Reeling And Tubing Machine Operator's Interpretation. Radiologist Interpretation by: Kaleb Huizar MD Interpretation Date/Time: 01/11/2022 15:49:36
[2022-01-11] MEDS: Regadenoson 0.4 MG/5 ML SYR IVP (13:28)
[2022-01-11] MEDS: Creon, Lipase 6,000 CAPCR 1 CAP PO ×2 (14:47→18:11)
[2022-01-11] MEDS: Ondansetron 4 MG/2 ML VIAL IVP (16:20)
[2022-01-11] MEDS: rOPINIRole 1 MG TAB 2 MG PO (19:47)
[2022-01-11] MEDS: Sennosides/Docusate Sodium TAB 1 TAB PO (21:23)
[2022-01-11] MEDS: Budesonide/Formoterol 160/4.5 6 GM 60 PUFF INH IH (21:24)
[2022-01-11] MEDS: Normal Saline Flush 10 ML SYR IVP (23:40)
[2022-01-12] VITALS: PULSE 73
[2022-01-12 03:40] VITALS: BP 120/68; PULSE 71; RESP 18; TEMP 35.7; O2SAT 96
[2022-01-12] MEDS: Acetaminophen 325 MG TAB 650 MG PO (06:06)
[2022-01-12] MEDS: traMADol 50 MG TAB PO (06:06)
[2022-01-12 06:57] VITALS: PULSE 69
[2022-01-12] MEDS: Umeclidinium 7 CAP INHALER 1 CAP IH (07:07)
[2022-01-12] MEDS: Budesonide/Formoterol 160/4.5 6 GM 60 PUFF INH IH (07:07)
[2022-01-12 08:00] VITALS: BP 126/67; PULSE 68; RESP 19; TEMP 36.3; O2SAT 97
[2022-01-12] MEDS: Creon, Lipase 6,000 CAPCR 1 CAP PO ×2 (08:21→11:56)
[2022-01-12] MEDS: Magnesium Chloride 64 MG TABCR PO (08:21)
[2022-01-12] MEDS: DULoxetine 30 MG CAP 60 MG PO (08:21)
[2022-01-12] MEDS: Omeprazole 20 MG CAPCR 40 MG PO (08:21)
[2022-01-12] MEDS: Torsemide 100 MG TAB 150 MG PO (08:21)
[2022-01-12] MEDS: Potassium Chloride 20 MEQ TABCR 40 MEQ PO (08:21)
[2022-01-12] MEDS: Aspirin E.C. 81 MG TABEC PO (08:21)
[2022-01-12] MEDS: Insulin Glargine 300 UNITS/3 ML PEN 50 UNITS SC (08:22)
[2022-01-12] MEDS: Gabapentin 100 MG CAP PO (08:22)
[2022-01-12] MEDS: levETIRAcetam 500 MG TAB PO (08:22)
[2022-01-12] MEDS: Atorvastatin 40 MG TAB PO (08:22)
[2022-01-12] MEDS: Insulin Aspart 300 UNITS/3 ML PEN SC ×2 (08:23→11:56)
--- NOTE | 2022-01-12 10:21 | W.PM.DS.N ---
Date of service: 01/12/22 Time of Service: 10:21 DS: Diagnosis Discharge Diagnosis (1) Chest pain: Status: Acute Asessment and Plan: Unclear as to whether her episode of chest pain is secondary to unstable angina versus other etiologies such as uncontrolled atrial fibrillation.? Nevertheless given her history of 3 days of chest discomfort it is unlikely that this is unstable angina as her troponins were normal.? She very well may have had periods of uncontrolled atrial fibrillation.? However her rate and rhythm are well controlled she is sinus rhythm with only occasional PACs.? At home her coronary artery disease is treated with atorvastatin and aspirin as well as Toprol-XL 100 mg daily and isosorbide mononitrate.? Heart failure was treated with torsemide however she does not appear to be on an MARTIR inhibitor or ARB nor is she on ARB/NI. (2) Congestive heart failure: Status: Chronic Asessment and Plan: She does not appear to be in acute congestive heart failure.? Her proBNP is at her baseline.? She has no peripheral edema.? Lungs are clear, she does however have COPD as well.? She still has room for adjustment to get her on goal-directed therapy including addition of spironolactone and/or Entresto or an ARB or a MARTIR inhibitor.? At this point since she is not in acute congestive heart failure I am not going to make any changes.? 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 (3) Type 2 diabetes mellitus with diabetic nephropathy: Status: Acute Asessment and Plan: Blood sugars seem to be under reasonable control this admission running at 145 mg/dL this morning.? She remains on Lantus 15 units daily along with insulin sensitive sliding scale.? She is on sitagliptin at home. (4) Coronary artery disease: Status: Chronic (5) Atrial fibrillation: Asessment and Plan: History of atrial fibrillation and atrial flutter.? Currently maintained on Toprol XL. Discharge Plan Disposition Patient Disposition: HOME W/HOME HEALTH SERVICE Condition: Improving Discharge Details Reason For Visit: CP Admit Date/Time: 01/10/22 20:22 Admit Provider: Kiran Grimaldo Attending Provider: Kiran Grimaldo Primary Care Provider: Laisha Mcmahon Hospital Course Hospital Course: Bibi was admitted 01/10/2022 for symptoms of unstable angina.? However upon further interview with her it sounds like she may have been having uncontrolled atrial fibrillation.? She said her symptoms started on Monday and went on Monday and again Monday.? It would go on for hours which she had palpitations and chest tightness along with some shortness of breath.? However her EKG and telemetry does not demonstrate any atrial fibrillation.? She does have some PACs on telemetry overnight.? EKG did not show any acute injury or ischemic pattern. EKG demonstrates sinus rhythm rate of 80 bpm possible right ventricular hypertrophy with prominent R waves in the anterior precordial leads.? No ST depression or ST elevation.? No T wave changes.? Serial troponin levels were normal at less than 50x3 sets.? Her proBNP was minimally elevated at 455 which is similar to her previous level of 510 on 01/07/2022.? As well as her level of 586 on 12/27/2021.? In the recent past she has been as high as 1100. She is reluctant to have a cardiac catheterization, she feels she did not do all that well after her triple bypass graft in 2019.? We talked about medical management versus cardiac catheterization with PCI intervention.? She will think about it. Home Meds and New Rx's Prescriptions: Continued B-complex with vitamin C [Super B Complex-Vitamin C] Tablet 1 tab PO DAILY 0RF albuterol sulfate 2.5 mg /3 mL (0.083 %) solution for nebulization 2.5 mg INHALATION Q2H PRN PRN (Reason: shortness of breath or wheezing) Qty: 180 4RF epinephrine [EpiPen 2-Erick] 0.3 mg/0.3 mL auto-injector 0.3 mg IM ONCE Qty: 2 10RF omeprazole 40 mg capsule,delayed release(DR/EC) 40 mg PO BID Qty: 180 4RF metoprolol succinate 100 mg tablet extended release 24 hr 100 mg PO DAILY Qty: 90 3RF gabapentin 100 mg capsule 100 mg PO TID Qty: 270 0RF tramadol 50 mg tablet 50 mg PO TID PRN (Reason: pain) Qty: 30 0RF insulin aspart U-100 [Novolog Flexpen U-100 Insulin] 100 unit/mL (3 mL) insulin pen 10 unit SC TID Qty: 30 5RF Basaglar KwikPen U-100 Insulin 100 unit/mL (3 mL) insulin pen 50 unit SC DAILY Qty: 90 4RF Incruse Ellipta 62.5 mcg/actuation blister with device 1 inh inhalation DAILY 0RF Januvia 25 mg tablet 25 mg PO DAILY Qty: 90 4RF budesonide-formoterol [Symbicort] 160-4.5 mcg/actuation HFA aerosol inhaler 2 puff inhalation BID 0RF Label Comments: Last rx'd 05/05/20 x 1 year. aj potassium chloride [K-Tab] 20 mEq tablet extended release 40 meq PO BID Qty: 180 4RF isosorbide mononitrate 10 mg tablet 10 mg PO BID Qty: 180 5RF Rx Instructions: give doses 7 hrs apart atorvastatin 40 mg tablet 40 mg PO DAILY Qty: 90 6RF duloxetine 60 mg capsule,delayed release(DR/EC) 60 mg PO DAILY Qty: 90 12RF ropinirole 2 mg tablet 2 mg PO QPM PRN (Reason: restless leg(s)) Qty: 90 5RF Rx Instructions: cholecalciferol (vitamin D3) 25 mcg (1,000 unit) capsule 25 mcg PO DAILY 0RF magnesium oxide 400 mg magnesium tablet 400 mg PO BID 0RF sennosides-docusate sodium [Senexon-S] 8.6-50 mg tablet 1 tab-cap PO QHS 0RF torsemide 100 mg tablet See Rx Instructions PO DAILY Qty: 135 6RF Rx Instructions: 1.5 Tab in AM 0.5 tab at 2 PM PO daily; Creon 6,000-19,000 -30,000 unit capsule,delayed release(DR/EC) 1 cap PO TID Qty: 270 5RF levetiracetam [Keppra] 500 mg tablet 500 mg PO BID Qty: 180 5RF Slow-Mag 71.5 mg tablet,delayed release (DR/EC) 71.5 mg PO BID Qty: 180 4RF aspirin 81 mg Tablet,Delayed Release (Dr/Ec) 81 mg PO DAILY Qty: 0 0RF acetaminophen [Tylenol Extra Strength] 500 mg Tablet 500 mg PO TID Qty: 0 0RF Discontinued cephalexin 250 mg tablet 250 mg PO TID Qty: 21 0RF No Action (DME) lancets 25 gauge misc See Dose Instructions .ROUTE .MEDSUPPLY Qty: 100 5RF Dose Instruction: As directed Rx Instructions: daily e11.9 True track smart system (DME) lancets [OneTouch Delica Lancets] 33 gauge misc See Dose Instructions .ROUTE DAILY Qty: 100 0RF Dose Instruction: E11.9 daily Rx Instructions: E11.9 daily (DME) Blood Glucose Test Strip See Dose Instructions .ROUTE .MEDSUPPLY Qty: 300 5RF Dose Instruction: As directed Rx Instructions: 3 times per day. E11.9 / Z79.4 One touch ultra (DME) pen needle, diabetic [1st Tier Unifine Pentips] 31 gauge x 1/4 needle See Dose Instructions .ROUTE .MEDSUPPLY Qty: 450 5RF Dose Instruction: As directed Rx Instructions: 5/ day E11.65. needed for several meds allopurinol 100 mg tablet 100 mg PO DAILY Qty: 90 12RF Discharge Instructions Instructions: Heart Failure (DC), Foot Care for People with Diabetes (DC), Acute Coronary Syndrome (DC), Type 2 Diabetes in the Older Adult (DC) Additional Instructions: Follow up with PCP, Cadiology and Palliative care Referrals: Laisha Mcmahon MD, [place] [Primary Care Provider] - 01/18/22 1:40 pm Mesfin Edouard MD [ [facility] STAFF PHYSICIAN] - 02/01/22 1:15 pm Activity:: Activity as Tolerated Equipment/Supplies:: No Equipment Needed Diet:: Low Sodium Discharge Orders Discharge Orders: Discharge Order (Routine); Ordered 01/12/22 Ordered By: Danika Reid DS: Summary Time Spent with Patient providing and/or coordinating discharge services: Less than 30 minutes Quality: AMI Clinical Trial Participant: No Exam Narrative Exam Narrative: Sandy is sitting up in her chair she just finished bathing. She is not in a distress denies any current chest pain or pressure denies any dizziness and denies any dyspnea. Lungs with fine bibasilar rales no rhonchi or wheezes Heart is regular rate and rhythm Abdomen obese soft nontender Legs and feet without pitting edema DS: Data Vitals/I&O Vitals and I&O: Vital Signs Temperature 36.3 C L 01/12/22 08:00 Temperature Source Tympanic 01/12/22 08:00 Pulse 68 01/12/22 08:00 Pulse Rhythm Regular 01/12/22 01:15 Pulse 75 01/11/22 18:20 Respiratory Rate 19 01/12/22 08:00 Respiratory Effort Non-Labored 01/12/22 01:15 Respiratory Depth Normal 01/12/22 01:15 Respiratory Pattern Normal 01/12/22 01:15 Blood Pressure 126/67 01/12/22 08:00 Blood Pressure Mean 100 01/11/22 18:20 Blood Pressure Position Supine 01/11/22 08:05 Pulse Oximetry 97 01/12/22 08:00 Oxygen Delivery Method Nasal Cannula 01/12/22 08:00 Oxygen Flow Rate 2 01/12/22 08:00 Pain Level 9 01/12/22 06:06 Comment 01/12/22 03:40 Intake & Output 01/11/22 01/11/22 01/12/22 11:59 23:59 11:59 Intake Total 710 / 710 Output Total 750 / 1650 900 / 1650 1500 / 1500 Balance -750 / -940 -190 / -940 -1500 / -1500 Weight 121.9 kg Intake: IV Oral 700 / 700 Output: Urine 750 / 1650 900 / 1650 1500 / 1500 Other: Urine Color Yellow Pale Yellow Dark [place] Yellow Urine Appearance Clear Clear Clear Urine Odor Normal Normal Normal Comment Patient reports stress incontinence. Stool Occult Blood Negative Stool Size Large Stool Characteristics Soft Formed Liquid Voiding Methods Bedside Commode Bedside Commode Bedside Commode Data Completed and Pending Completed studies during hospitalization [Text1]: Stress test Normal myocardial perfusion without evidence of ischemia or prior infarction EF 63%, normal wall motion Imaging Chest x-ray: Radiologist's impression: LUNGS: Mild scarring at the left diaphragm.? No pleural abnormality seen. HEART: Normal size.? Prior CABG.. AORTA: Normal. BONES: Sternal wires.? Lower cervical spine fusion hardware. Soft tissues: Unremarkable. IMPRESSION: No acute? findings. Lab and Radiology Reports: Laboratory Results WBC 13.85 10^3/uL (4.4-10.8) H 01/10/22 15:26 RBC 4.29 10^6/uL (3.93-5.22) 01/10/22 15:26 Hgb 10.0 g/dL (11.2-15.7) L 01/10/22 15:26 Hct 35.3 % (36.0-46.0) L 01/10/22 15:26 MCV 82 fL (80-95) 01/10/22 15: MCH 23.3 pg (27.0-33.0) L 01/10/22 15: MCHC 28.3 % (32.0-36.0) L 01/10/22 15:26 RDW 17.1 % (11.7-14.6) H 01/10/22 15:26 Plt Count 375 10^3/uL (130-400) 01/10/22 15:26 MPV 10.1 fL (8.0-11.0) 01/10/22 15:26 Immature Gran % 0.5 01/10/22 15: Neutrophils % 71.4 01/10/22 15: Lymphocytes % 13.2 01/10/22 15: Monocytes % 7.8 01/10/22 15: Eosinophils % 6.4 01/10/22 15: Basophils % 0.7 01/10/22 15: Nucleated RBC % 0.0 % (0.0-0.3) 01/10/22 15:26 Absolute Neutrophils 9.89 10^3/uL (1.2-6.7) H 01/10/22 15: Absolute Lymphocytes 1.83 10^3/uL (1.2-3.4) 01/10/22 15: Absolute Monocytes 1.08 10^3/uL (0.1-0.8) H 01/10/22 15: Absolute Eosinophils 0.89 10^3/uL (0.0-0.7) H 01/10/22 15: Absolute Basophils 0.10 10^3/uL (0.0-0.2) 01/10/22 15:26 PT 11.1 sec (9.3-11.0) H 01/10/22 15:37 INR 1.1 (0.9-1.1) 01/10/22 15:37 APTT 24.1 sec (21.0-27.5) 01/10/22 15:37 VBG pH 7.45 (7.31-7.41) H 01/10/22 15:54 VBG pCO2 46 mmHg (41-51) 01/10/22 15:54 VBG pO2 98 mmHg 01/10/22 15:54 VBG HCO3 31 mmol/L (23-28) H 01/10/22 15:54 VBG Total CO2 29 mmol/L (24-29) 01/10/22 15:54 VBG O2 Saturation 97 % 01/10/22 15:54 VBG Base Excess 7 mmol/L (-2-3) H 01/10/22 15:54 Sodium 139 mmol/L (136-145) 01/10/22 15:26 Potassium 3.8 mmol/L (3.5-5.1) 01/10/22 15:26 Chloride 103 mmol/L (98-107) 01/10/22 15:26 Carbon Dioxide 29.7 mmol/L (21.0-32.0) 01/10/22 15:26 Anion Gap 6.3 mmol/L (3-11) 01/10/22 15:26 BUN 41 mg/dL (7-18) H 01/10/22 15:26 Creatinine 2.0 mg/dL (0.55-1.02) H 01/10/22 15:26 Estimated GFR/1.73 m2 24.70 (mL/min/1.73m2) 01/10/22 15:26 Glucose 172 mg/dL (74-106) H 01/10/22 15:26 Calcium 8.2 mg/dL (8.5-10.1) L 01/10/22 15:26 Total Bilirubin 0.6 mg/dL (0.2-1.0) 01/10/22 15:26 AST 13 U/L (15-37) L 01/10/22 15:26 ALT 22 U/L (14-59) 01/10/22 15:26 Alkaline Phosphatase 93 U/L (46-116) 01/10/22 15:26 Troponin I < 50 ng/L (<or=60) 01/10/22 22:58 NT-Pro-B Natriuret Pep 455 pg/mL (<300) H 01/10/22 15:26 Total Protein 7.2 g/dL (6.4-8.2) 01/10/22 15:26 Albumin 3.3 g/dL (3.4-5.0) L 01/10/22 15:26 Urine Color Yellow (Yellow) 01/10/22 18:40 Urine Clarity Clear (Clear) 01/10/22 18:40 Urine pH 6.0 (5-8) 01/10/22 18:40 Ur Specific Paradox 1.015 (1.005-1.025) 01/10/22 18:40 Urine Protein Negative mg/dL (Negative) 01/10/22 18:40 Urine Ketones Negative mg/dL (Negative) 01/10/22 18:40 Urine Blood Negative (Negative) 01/10/22 18:40 Urine Nitrite Negative (Negative) 01/10/22 18:40 Urine Bilirubin Negative (Negative) 01/10/22 18:40 Urine Urobilinogen 0.2 EU/dL (Up TO 0.2) 01/10/22 18:40 Ur Leukocyte Esterase Trace (Negative) H 01/10/22 18:40 Urine RBC Negative HPF (0-2) 01/10/22 18:40 Urine WBC 20-50 HPF (0-5) H 01/10/22 18:40 Ur Epithelial Cells Few HPF (Negative) 01/10/22 18:40 Urine Crystals Negative HPF (Negative) 01/10/22 18:40 Urine Bacteria Packed HPF (Negative) 01/10/22 18:40 Urine Mucus Negative (Negative) 01/10/22 18:40 Ur Culture Indicated? Yes 01/10/22 18:40 Urine Glucose Negative mg/dL (Negative) 01/10/22 18:40 COVID-19 Source Nasopharynx 01/10/22 15:37 SARS-CoV-2 (PCR) Negative (Negative) 01/10/22 15:37 Influenza Type A (PCR) Negative (Negative) 01/10/22 15:37 Influenza Type B (PCR) Negative (Negative) 01/10/22 15:37 RSV (PCR) Negative (Negative) 01/10/22 15:37 PFSH All Active Problems Chest pain (Acute) Congestive heart failure (Chronic) Preserved ejection fraction-followed by cardiology at [facility] Type 2 diabetes mellitus with diabetic nephropathy (Acute) Coronary artery disease (Chronic) Chronic kidney disease, stage 4 (severe) (Acute) 12/2021, Cr-2.5 Palliative care patient (Acute) Palliative care patient (Acute) Bimalleolar ankle fracture (Acute) s/p ORIF on 10/07 Cyst of lateral meniscus of right knee (Acute) Wound abscess (Acute) Medical History Abnormal mammography 08/10/06 Acute kidney injury superimposed on chronic kidney disease [id number] kidney injury Altered mental status Anemia Ankle pain (03/13/14) Annual physical exam (12/14/15) Atrial fibrillation Atrial flutter BMI 40.0-44.9, adult (12/02/14) CAD (coronary artery disease), robinson coronary artery Carpal tunnel syndrome Carpal tunnel syndrome (08/10/06) BILATERAL R S/P SURGERY Cervical disc disorder with myelopathy (08/21/08) S/P surgery x 2 Cervical spondylosis with myelopathy Chest pain Neg Stress test CHF (congestive heart failure) Chronic obstructive lung disease CKD (chronic kidney disease) stage 3, GFR 30-59 ml/min Cr about 2.5 CKD stage 4 due to type 2 diabetes mellitus Closed avulsion fracture of condyle of right femur Closed bimalleolar fracture of right ankle Closed trimalleolar fracture of right ankle (10/03/21) Congestive heart failure Constipation Dehydration Diabetes mellitus 09/20/10 Positive Microalbumin Diabetes mellitus (09/20/10) Diastolic CHF DNR no code (do not resuscitate) DVT (deep venous thrombosis) Dysuria Essential hypertension Essential hypertension (06/13/13) Folate deficiency (02/15/16) Fracture of proximal end of right fibula Gout Gout (07/06/11) Gram-positive bacteremia Greater trochanteric bursitis of left hip Hammer toe Left/right HAP (hospital-acquired pneumonia) (01/15/19) HCAP (healthcare-associated pneumonia) Heart failure with preserved ejection fraction, borderline, class III Hepatomegaly 06/10/04 Hip joint inflamed (09/03/15) Hip pain, left Hip pain, right Hyperglycemia Hyperlipidemia (08/10/00) Hypertension Hypomagnesemia Hypoxia IDDM (insulin dependent diabetes mellitus) Left hip pain Low back pain (04/10/03) DISC HERNIATION L4. MULTILEVEL DJD/SPINAL STENOSIS BY MRI; S/P surgery Lump in neck Macrocytic anemia Medial meniscus tear Menopausal syndrome 07/11/03 Multiple falls Muscle fatigue 03/04/13 Myoclonic epileptic seizures Numbness and tingling in left upper extremity Pancreatic atrophy Posterior tibial tendon dysfunction 02/03/16 Postmenopausal bleeding neg. endometrial biopsy Postoperative wound dehiscence (12/23/15) Prerenal azotemia Primary osteoarthritis of left hip (09/17/15) Pulmonary hypertension Renal impairment (07/11/03) ADRENAL MASS. F/U W/ KINLAW positive microalbumin Renal insufficiency Restless leg syndrome Rotator cuff syndrome (08/01/09) Seizure Shingles Smoker (06/30/16) 01/17/17 1-2 cig/wk SOB (shortness of breath) Spinal stenosis of lumbar region (02/15/16) Spinal stenosis of lumbar region at multiple levels Tarsal tunnel syndrome 06/11/13 Tarsal tunnel syndrome (06/11/13) Tear of lateral meniscus of right knee Trochanteric bursitis 03/18/13 Upper respiratory tract infection (08/03/15) UTI (urinary tract infection) Vaginal atrophy Vitamin D deficiency Vitamin D deficiency Weakness Surgical History Arthrodesis right 2nd toe Cataract (01/07/14) FOLLOWED BY [facility] cervical repair (~10/2008) C6-C7 DISK; RECURRENT SURGERY Cholecystectomy (07/31/13) Endometrial Biopsy NEG H/O arthrodesis right second toe H/O Spinal surgery multiple spine surgeries; low back x 2; She had multilevel DJD and spinal stenosis; disc herniation. 2008-cervical repair; C6-C7 disc; recurrent surgery. History of bilateral tubal ligation 09/11/80 History of gynecologic surgery endometrial biopsy-neg History of hip surgery 11/10/15 left hip arthroplasty 12/04/15-placement of wound VAC to left hip History of orthopedic surgery 09/11/97 tarsal tunnel release Left eye surgery 12/31/17 Ligation of fallopian tube (~1980) Open Carpal Tunnel release Right wrist surgery 10/26/17 Rotator Cuff Repair (~1980) S/P CABG (coronary artery bypass graft) (01/03/19) 4 vessel CABG and LA appendage excision, Dr. Nav Wang, [facility] [place], [place] S/P carpal tunnel release S/P cholecystectomy 09/11/12 S/P rotator cuff repair 09/11/80 SPINE SURGERY Multiple spine surgeries, low back x 2. She had multilevel DJD and spinal stenosis, disc herniation Status post incision and drainage 12/04/15 left hip surgical wound dehiscence and infection tarsal tunnel release (~1997) Total replacement of hip [facility]; LEFT HIP Family History Mother Diabetes Essential hypertension Personal history of malignant neoplasm KIDNEY/LIVER/BRAIN Heart disease Hyperlipidemia Stroke Asthma Father Diabetes Essential hypertension Personal history of malignant neoplasm BONE Heart disease Asthma Sister Diabetes Essential hypertension Depression Heart disease Asthma Grandfather No problems noted. Grandfather No problems noted. Grandmother Personal history of malignant neoplasm UTERINE Grandmother Diabetes Aunt Personal history of malignant neoplasm BREAST Brother Hyperlipidemia Stroke Sister Asthma Son Asthma Daughter Depression Asthma Daughter Asthma Daughter Depression Neoplasm Asthma Brother No problems noted. 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: [employer] Pets and animals: Yes Pets and animals: cat(s), dog(s) and horse(s) What is your relationship status?: Panel score (0-1 are the most socially isolated patients): 0 What type of physical activity do you participate in: none, walking and additional Details: would like to start now that it's warm Duration: 15-30 minutes/day Saniya/Restorationist: Uatsdin Special saniya needs: No Seatbelt use: always Do you feel safe at home: Yes Do you feel safe in your relationship?: Yes Additional Social history: lives at home with family
--- NOTE | 2022-01-12 11:03 | W.PM.DS.N ---
DS: Diagnosis Discharge Diagnosis (1) Chest pain: Status: Acute (2) Congestive heart failure: Status: Chronic (3) Type 2 diabetes mellitus with diabetic nephropathy: Status: Acute (4) Coronary artery disease: Status: Chronic (5) Atrial fibrillation: Discharge Plan Disposition Patient Disposition: HOME W/HOME HEALTH SERVICE Condition: Improving Discharge Details Reason For Visit: CP Admit Date/Time: 01/10/22 20:22 Admit Provider: Kiran Grimaldo Attending Provider: Kiran Grimaldo Primary Care Provider: Laisha Mcmahon Hospital Course Hospital Course: Bibi was admitted 01/10/2022 for symptoms of unstable angina.? However upon further interview with her it sounds like she may have been having uncontrolled atrial fibrillation.? She said her symptoms started on Monday and went on Monday and again Monday.? It would go on for hours which she had palpitations and chest tightness along with some shortness of breath.? However her EKG and telemetry does not demonstrate any atrial fibrillation.? She does have some PACs on telemetry overnight.? EKG did not show any acute injury or ischemic pattern. EKG demonstrates sinus rhythm rate of 80 bpm possible right ventricular hypertrophy with prominent R waves in the anterior precordial leads.? No ST depression or ST elevation.? No T wave changes.? Serial troponin levels were normal at less than 50x3 sets.? Her proBNP was minimally elevated at 455 which is similar to her previous level of 510 on 01/07/2022.? As well as her level of 586 on 12/27/2021.? In the recent past she has been as high as 1100. She is reluctant to have a cardiac catheterization, she feels she did not do all that well after her triple bypass graft in 2019.? We talked about medical management versus cardiac catheterization with PCI intervention.? She will think about it. Home Meds and New Rx's Prescriptions: Continued B-complex with vitamin C [Super B Complex-Vitamin C] Tablet 1 tab PO DAILY 0RF albuterol sulfate 2.5 mg /3 mL (0.083 %) solution for nebulization 2.5 mg INHALATION Q2H PRN PRN (Reason: shortness of breath or wheezing) Qty: 180 4RF epinephrine [EpiPen 2-Erick] 0.3 mg/0.3 mL auto-injector 0.3 mg IM ONCE Qty: 2 10RF omeprazole 40 mg capsule,delayed release(DR/EC) 40 mg PO BID Qty: 180 4RF metoprolol succinate 100 mg tablet extended release 24 hr 100 mg PO DAILY Qty: 90 3RF gabapentin 100 mg capsule 100 mg PO TID Qty: 270 0RF tramadol 50 mg tablet 50 mg PO TID PRN (Reason: pain) Qty: 30 0RF insulin aspart U-100 [Novolog Flexpen U-100 Insulin] 100 unit/mL (3 mL) insulin pen 10 unit SC TID Qty: 30 5RF Basaglar KwikPen U-100 Insulin 100 unit/mL (3 mL) insulin pen 50 unit SC DAILY Qty: 90 4RF Incruse Ellipta 62.5 mcg/actuation blister with device 1 inh inhalation DAILY 0RF Januvia 25 mg tablet 25 mg PO DAILY Qty: 90 4RF budesonide-formoterol [Symbicort] 160-4.5 mcg/actuation HFA aerosol inhaler 2 puff inhalation BID 0RF Label Comments: Last rx'd 05/05/20 x 1 year. aj potassium chloride [K-Tab] 20 mEq tablet extended release 40 meq PO BID Qty: 180 4RF isosorbide mononitrate 10 mg tablet 10 mg PO BID Qty: 180 5RF Rx Instructions: give doses 7 hrs apart atorvastatin 40 mg tablet 40 mg PO DAILY Qty: 90 6RF duloxetine 60 mg capsule,delayed release(DR/EC) 60 mg PO DAILY Qty: 90 12RF ropinirole 2 mg tablet 2 mg PO QPM PRN (Reason: restless leg(s)) Qty: 90 5RF Rx Instructions: cholecalciferol (vitamin D3) 25 mcg (1,000 unit) capsule 25 mcg PO DAILY 0RF magnesium oxide 400 mg magnesium tablet 400 mg PO BID 0RF sennosides-docusate sodium [Senexon-S] 8.6-50 mg tablet 1 tab-cap PO QHS 0RF torsemide 100 mg tablet See Rx Instructions PO DAILY Qty: 135 6RF Rx Instructions: 1.5 Tab in AM 0.5 tab at 2 PM PO daily; Creon 6,000-19,000 -30,000 unit capsule,delayed release(DR/EC) 1 cap PO TID Qty: 270 5RF levetiracetam [Keppra] 500 mg tablet 500 mg PO BID Qty: 180 5RF Slow-Mag 71.5 mg tablet,delayed release (DR/EC) 71.5 mg PO BID Qty: 180 4RF aspirin 81 mg Tablet,Delayed Release (Dr/Ec) 81 mg PO DAILY Qty: 0 0RF acetaminophen [Tylenol Extra Strength] 500 mg Tablet 500 mg PO TID Qty: 0 0RF Discontinued cephalexin 250 mg tablet 250 mg PO TID Qty: 21 0RF No Action (DME) lancets 25 gauge misc See Dose Instructions .ROUTE .MEDSUPPLY Qty: 100 5RF Dose Instruction: As directed Rx Instructions: daily e11.9 True track smart system (DME) lancets [OneTouch Delica Lancets] 33 gauge misc See Dose Instructions .ROUTE DAILY Qty: 100 0RF Dose Instruction: E11.9 daily Rx Instructions: E11.9 daily (DME) Blood Glucose Test Strip See Dose Instructions .ROUTE .MEDSUPPLY Qty: 300 5RF Dose Instruction: As directed Rx Instructions: 3 times per day. E11.9 / Z79.4 One touch ultra (DME) pen needle, diabetic [1st Tier Unifine Pentips] 31 gauge x 1/4 needle See Dose Instructions .ROUTE .MEDSUPPLY Qty: 450 5RF Dose Instruction: As directed Rx Instructions: 5/ day E11.65. needed for several meds allopurinol 100 mg tablet 100 mg PO DAILY Qty: 90 12RF Discharge Instructions Instructions: Heart Failure (DC), Foot Care for People with Diabetes (DC), Acute Coronary Syndrome (DC), Type 2 Diabetes in the Older Adult (DC) Additional Instructions: Follow up with PCP, Cadiology and Palliative care Referrals: Laisha Mcmahon MD, [place] [Primary Care Provider] - 01/18/22 1:40 pm Mesfin Edouard MD [ [facility] STAFF PHYSICIAN] - 02/01/22 1:15 pm Activity:: Activity as Tolerated Equipment/Supplies:: No Equipment Needed Diet:: Low Sodium Discharge Orders Discharge Orders: Discharge Order (Routine); Ordered 01/12/22 Ordered By: Danika Reid DS: Summary Time Spent with Patient providing and/or coordinating discharge services: Less than 30 minutes Exam Narrative Exam Narrative: Sandy is sitting up in her chair she just finished bathing. She is not in a distress denies any current chest pain or pressure denies any dizziness and denies any dyspnea. Lungs with fine bibasilar rales no rhonchi or wheezes Heart is regular rate and rhythm Abdomen obese soft nontender Legs and feet without pitting edema Right ankle swollen (recent injury/surgery) not more than usual Const General: cooperative, comfortable and no acute distress Nutritional Appearance: obese Orientation: alert, awake and oriented x3 Neck Neck: normal visual inspection, trachea midline and no JVD Lymphatic: no lymphadenopathy noted Chest Chest: normal inspection of the chest Resp Effort & Inspection: normal respiratory effort and able to speak in complete sentences Auscultation: diminished lung sounds Skin General skin exam: no rashes or lesions noted DS: Data Vitals/I&O Vitals and I&O: Vital Signs Temperature 36.3 C L 01/12/22 08:00 Temperature Source Tympanic 01/12/22 08:00 Pulse 68 01/12/22 08:00 Pulse Rhythm Regular 01/12/22 08:20 Pulse 75 01/11/22 18:20 Respiratory Rate 19 01/12/22 08:00 Respiratory Effort Non-Labored 01/12/22 08:20 Respiratory Depth Normal 01/12/22 08:20 Respiratory Pattern Normal 01/12/22 08:20 Blood Pressure 126/67 01/12/22 08:00 Blood Pressure Mean 100 01/11/22 18:20 Blood Pressure Position Supine 01/11/22 08:05 Pulse Oximetry 97 01/12/22 08:00 Oxygen Delivery Method Nasal Cannula 01/12/22 08:00 Oxygen Flow Rate 2 01/12/22 08:00 Pain Level 9 01/12/22 06:06 Comment 01/12/22 03:40 Intake & Output 01/11/22 01/11/22 01/12/22 11:59 23:59 11:59 Intake Total 710 / 710 Output Total 750 / 1650 900 / 1650 1949 Balance -750 / -940 -190 / -940 -1949 Weight 121.9 kg Intake: IV Oral 700 / 700 Output: Urine 750 / 1650 900 / 1650 1949 Other: Urine Color Yellow Pale Yellow Dark [place] Yellow Urine Appearance Clear Clear Clear Urine Odor Normal Normal Normal Comment Patient reports stress incontinence. Stool Occult Blood Negative Stool Size Large Stool Characteristics Soft Formed Liquid Voiding Methods Bedside Commode Bedside Commode Bedside Commode Data Completed and Pending Completed studies during hospitalization [Text1]: Stress test: Normal myocardial perfusion without evidence of ischemia or prior infarction EF 63%, normal wall motion Imaging Chest x-ray: Radiologist's impression: CXR Lungs: Mild scarring at the left diaphragm. No pleural abnormality seen. HEART: Normal size. Prior CABG.. AORTA: Normal. BONES: Sternal wires. Lower cervical spine fusion hardware. Soft tissues: Unremarkable. Lab and Radiology Reports: Laboratory Results WBC 13.85 10^3/uL (4.4-10.8) H 01/10/22 15:26 RBC 4.29 10^6/uL (3.93-5.22) 01/10/22 15:26 Hgb 10.0 g/dL (11.2-15.7) L 01/10/22 15:26 Hct 35.3 % (36.0-46.0) L 01/10/22 15:26 MCV 82 fL (80-95) 01/10/22 15:26 MCH 23.3 pg (27.0-33.0) L 01/10/22 15:26 MCHC 28.3 % (32.0-36.0) L 01/10/22 15:26 RDW 17.1 % (11.7-14.6) H 01/10/22 15:26 Plt Count 375 10^3/uL (130-400) 01/10/22 15:26 MPV 10.1 fL (8.0-11.0) 01/10/22 15:26 Immature Gran % 0.5 01/10/22 15:26 Neutrophils % 71.4 01/10/22 15:26 Lymphocytes % 13.2 01/10/22 15:26 Monocytes % 7.8 01/10/22 15:26 Eosinophils % 6.4 01/10/22 15:26 Basophils % 0.7 01/10/22 15:26 Nucleated RBC % 0.0 % (0.0-0.3) 01/10/22 15:26 Absolute Neutrophils 9.89 10^3/uL (1.2-6.7) H 01/10/22 15:26 Absolute Lymphocytes 1.83 10^3/uL (1.2-3.4) 01/10/22 15:26 Absolute Monocytes 1.08 10^3/uL (0.1-0.8) H 01/10/22 15:26 Absolute Eosinophils 0.89 10^3/uL (0.0-0.7) H 01/10/22 15:26 Absolute Basophils 0.10 10^3/uL (0.0-0.2) 01/10/22 15:26 PT 11.1 sec (9.3-11.0) H 01/10/22 15:37 INR 1.1 (0.9-1.1) 01/10/22 15:37 APTT 24.1 sec (21.0-27.5) 01/10/22 15:37 VBG pH 7.45 (7.31-7.41) H 01/10/22 15:54 VBG pCO2 46 mmHg (41-51) 01/10/22 15:54 VBG pO2 98 mmHg 01/10/22 15:54 VBG HCO3 31 mmol/L (23-28) H 01/10/22 15:54 VBG Total CO2 29 mmol/L (24-29) 01/10/22 15:54 VBG O2 Saturation 97 % 01/10/22 15:54 VBG Base Excess 7 mmol/L (-2-3) H 01/10/22 15:54 Sodium 139 mmol/L (136-145) 01/10/22 15:26 Potassium 3.8 mmol/L (3.5-5.1) 01/10/22 15:26 Chloride 103 mmol/L (98-107) 01/10/22 15:26 Carbon Dioxide 29.7 mmol/L (21.0-32.0) 01/10/22 15:26 Anion Gap 6.3 mmol/L (3-11) 01/10/22 15:26 BUN 41 mg/dL (7-18) H 01/10/22 15:26 Creatinine 2.0 mg/dL (0.55-1.02) H 01/10/22 15:26 Estimated GFR/1.73 m2 24.70 (mL/min/1.73m2) 01/10/22 15:26 Glucose 172 mg/dL (74-106) H 01/10/22 15:26 Calcium 8.2 mg/dL (8.5-10.1) L 01/10/22 15:26 Total Bilirubin 0.6 mg/dL (0.2-1.0) 01/10/22 15:26 AST 13 U/L (15-37) L 01/10/22 15:26 ALT 22 U/L (14-59) 01/10/22 15:26 Alkaline Phosphatase 93 U/L (46-116) 01/10/22 15:26 Troponin I < 50 ng/L (<or=60) 01/10/22 22:58 NT-Pro-B Natriuret Pep 455 pg/mL (<300) H 01/10/22 15:26 Total Protein 7.2 g/dL (6.4-8.2) 01/10/22 15: Albumin 3.3 g/dL (3.4-5.0) L 01/10/22 15:26 Urine Color Yellow (Yellow) 01/10/22 18:40 Urine Clarity Clear (Clear) 01/10/22 18:40 Urine pH 6.0 (5-8) 01/10/22 18:40 Ur Specific [place] 1.015 (1.005-1.025) 01/10/22 18:40 Urine Protein Negative mg/dL (Negative) 01/10/22 18:40 Urine Ketones Negative mg/dL (Negative) 01/10/22 18:40 Urine Blood Negative (Negative) 01/10/22 18:40 Urine Nitrite Negative (Negative) 01/10/22 18:40 Urine Bilirubin Negative (Negative) 01/10/22 18:40 Urine Urobilinogen 0.2 EU/dL (Up TO 0.2) 01/10/22 18:40 Ur Leukocyte Esterase Trace (Negative) H 01/10/22 18:40 Urine RBC Negative HPF (0-2) 01/10/22 18:40 Urine WBC 20-50 HPF (0-5) H 01/10/22 18:40 Ur Epithelial Cells Few HPF (Negative) 01/10/22 18:40 Urine Crystals Negative HPF (Negative) 01/10/22 18:40 Urine Bacteria Packed HPF (Negative) 01/10/22 18:40 Urine Mucus Negative (Negative) 01/10/22 18:40 Ur Culture Indicated? Yes 01/10/22 18:40 Urine Glucose Negative mg/dL (Negative) 01/10/22 18:40 COVID-19 Source Nasopharynx 01/10/22 15:37 SARS-CoV-2 (PCR) Negative (Negative) 01/10/22 15:37 Influenza Type A (PCR) Negative (Negative) 01/10/22 15:37 Influenza Type B (PCR) Negative (Negative) 01/10/22 15:37 RSV (PCR) Negative (Negative) 01/10/22 15:37 PFSH All Active Problems Chest pain (Acute) Congestive heart failure (Chronic) Preserved ejection fraction-followed by cardiology at [facility] Type 2 diabetes mellitus with diabetic nephropathy (Acute) Coronary artery disease (Chronic) Chronic kidney disease, stage 4 (severe) (Acute) 12/2021, Cr-2.5 Palliative care patient (Acute) Palliative care patient (Acute) Bimalleolar ankle fracture (Acute) s/p ORIF on 10/07 Cyst of lateral meniscus of right knee (Acute) Wound abscess (Acute) Medical History Abnormal mammography 08/10/06 Acute kidney injury superimposed on chronic kidney disease [id number] kidney injury Altered mental status Anemia Ankle pain (03/13/14) Annual physical exam (12/14/15) Atrial fibrillation Atrial flutter BMI 40.0-44.9, adult (12/02/14) CAD (coronary artery disease), [place] coronary artery Carpal tunnel syndrome Carpal tunnel syndrome (08/10/06) BILATERAL R S/P SURGERY Cervical disc disorder with myelopathy (08/21/08) S/P surgery x 2 Cervical spondylosis with myelopathy Chest pain Neg Stress test CHF (congestive heart failure) Chronic obstructive lung disease CKD (chronic kidney disease) stage 3, GFR 30-59 ml/min Cr about 2.5 CKD stage 4 due to type 2 diabetes mellitus Closed avulsion fracture of condyle of right femur Closed bimalleolar fracture of right ankle Closed trimalleolar fracture of right ankle (10/03/21) Congestive heart failure Constipation Dehydration Diabetes mellitus 09/20/10 Positive Microalbumin Diabetes mellitus (09/20/10) Diastolic CHF DNR no code (do not resuscitate) DVT (deep venous thrombosis) Dysuria Essential hypertension Essential hypertension (06/13/13) Folate deficiency (02/15/16) Fracture of proximal end of right fibula Gout Gout (07/06/11) Gram-positive bacteremia Greater trochanteric bursitis of left hip Hammer toe Left/right HAP (hospital-acquired pneumonia) (01/15/19) HCAP (healthcare-associated pneumonia) Heart failure with preserved ejection fraction, borderline, class III Hepatomegaly 06/10/04 Hip joint inflamed (09/03/15) Hip pain, left Hip pain, right Hyperglycemia Hyperlipidemia (08/10/00) Hypertension Hypomagnesemia Hypoxia IDDM (insulin dependent diabetes mellitus) Left hip pain Low back pain (04/10/03) DISC HERNIATION L4. MULTILEVEL DJD/SPINAL STENOSIS BY MRI; S/P surgery Lump in neck Macrocytic anemia Medial meniscus tear Menopausal syndrome 07/11/03 Multiple falls Muscle fatigue 03/04/13 Myoclonic epileptic seizures Numbness and tingling in left upper extremity Pancreatic atrophy Posterior tibial tendon dysfunction 02/03/16 Postmenopausal bleeding neg. endometrial biopsy Postoperative wound dehiscence (12/23/15) Prerenal azotemia Primary osteoarthritis of left hip (09/17/15) Pulmonary hypertension Renal impairment (07/11/03) ADRENAL MASS. F/U W/ K[place]LA[place] positive microalbumin Renal insufficiency Restless leg syndrome Rotator cuff syndrome (08/01/09) Seizure Shingles Smoker (06/30/16) 01/17/17 1-2 cig/wk SOB (shortness of breath) Spinal stenosis of lumbar region (02/15/16) Spinal stenosis of lumbar region at multiple levels Tarsal tunnel syndrome 06/11/13 Tarsal tunnel syndrome (06/11/13) Tear of lateral meniscus of right knee Trochanteric bursitis 03/18/13 Upper respiratory tract infection (08/03/15) UTI (urinary tract infection) Vaginal atrophy Vitamin D deficiency Vitamin D deficiency Weakness Surgical History Arthrodesis right 2nd toe Cataract (01/07/14) FOLLOWED BY [facility] cervical repair (~10/2008) C6-C7 DISK; RECURRENT SURGERY Cholecystectomy (07/31/13) Endometrial Biopsy NEG H/O arthrodesis right second toe H/O Spinal surgery multiple spine surgeries; low back x 2; She had multilevel DJD and spinal stenosis; disc herniation. 2009-cervical repair; C6-C7 disc; recurrent surgery. History of bilateral tubal ligation 09/11/80 History of gynecologic surgery endometrial biopsy-neg History of hip surgery 11/10/15 left hip arthroplasty 12/04/15-placement of wound VAC to left hip History of orthopedic surgery 09/11/97 tarsal tunnel release Left eye surgery 12/31/17 Ligation of fallopian tube (~1980) Open Carpal Tunnel release Right wrist surgery 10/26/17 Rotator Cuff Repair (~1980) S/P CABG (coronary artery bypass graft) (01/03/19) 4 vessel CABG and LA appendage excision, Dr. Nav Wang, [facility] [place] S/P carpal tunnel release S/P cholecystectomy 09/11/12 S/P rotator cuff repair 09/11/80 SPINE SURGERY Multiple spine surgeries, low back x 2. She had multilevel DJD and spinal stenosis, disc herniation Status post incision and drainage 12/04/15 left hip surgical wound dehiscence and infection tarsal tunnel release (~1997) Total replacement of hip [facility]; LEFT HIP Family History Mother Diabetes Essential hypertension Personal history of malignant neoplasm KIDNEY/LIVER/BRAIN Heart disease Hyperlipidemia Stroke Asthma Father Diabetes Essential hypertension Personal history of malignant neoplasm BONE Heart disease Asthma Sister Diabetes Essential hypertension Depression Heart disease Asthma Grandfather No problems noted. Grandfather No problems noted. Grandmother Personal history of malignant neoplasm UTERINE Grandmother Diabetes Aunt Personal history of malignant neoplasm BREAST Brother Hyperlipidemia Stroke Sister Asthma Son Asthma Daughter Depression Asthma Daughter Asthma Daughter Depression Neoplasm Asthma Brother No problems noted. 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: [employer] Pets and animals: Yes Pets and animals: cat(s), dog(s) and horse(s) What is your relationship status?: Panel score (0-1 are the most socially isolated patients): 0 What type of physical activity do you participate in: none, walking and additional Details: would like to start now that it's warm Duration: 15-30 minutes/day Saniya/Restoration: [employer] Special saniya needs: No Seatbelt use: always Do you feel safe at home: Yes Do you feel safe in your relationship?: Yes Additional Social history: lives at home with family
--- NOTE | 2022-01-12 11:31 | DSE_ITS ---
DS: Diagnosis Discharge Diagnosis (1) Chest pain: Status: Acute (2) Congestive heart failure: Status: Chronic (3) Type 2 diabetes mellitus with diabetic nephropathy: Status: Acute (4) Coronary artery disease: Status: Chronic (5) Atrial fibrillation: Discharge Plan Disposition Patient Disposition: HOME W/HOME HEALTH SERVICE Condition: Improving Discharge Details Reason For Visit: CP Admit Date/Time: 01/10/22 20:22 Admit Provider: Kiran Grimaldo Attending Provider: Kiran Grimaldo Primary Care Provider: Laisha Mcmahon Hospital Course Hospital Course: Bibi presented to the ED w c/o CP and SOB for three days. She was admitted to in-patient. No EKG changes. Her troponins x 3 < 50; BNP down from 510 to 455; glucose 170-190's. She had no more CP or SOB. CXR unchanged, and stress test EF 63%; remains in NSR throughout stay. Discharge to home with resumption of home health services. Plan to FU w PCP, Cardiology and Palliative care. Bibi believes she was in AFib. Discussion with Dr Caban, will order cardiac event monitor. She has a FU xray ordered by ortho for her right ankle -- she was unable to do because of hospitalization. She will have the xray after discharge. Reviewed with Dr Caban Home Meds and New Rx's Prescriptions: Continued B-complex with vitamin C [Super B Complex-Vitamin C] Tablet 1 tab PO DAILY 0RF albuterol sulfate 2.5 mg /3 mL (0.083 %) solution for nebulization 2.5 mg INHALATION Q2H PRN PRN (Reason: shortness of breath or wheezing) Qty: 180 4RF epinephrine [EpiPen 2-Erick] 0.3 mg/0.3 mL auto-injector 0.3 mg IM ONCE Qty: 2 10RF omeprazole 40 mg capsule,delayed release(DR/EC) 40 mg PO BID Qty: 180 4RF metoprolol succinate 100 mg tablet extended release 24 hr 100 mg PO DAILY Qty: 90 3RF gabapentin 100 mg capsule 100 mg PO TID Qty: 270 0RF tramadol 50 mg tablet 50 mg PO TID PRN (Reason: pain) Qty: 30 0RF insulin aspart U-100 [Novolog Flexpen U-100 Insulin] 100 unit/mL (3 mL) insulin pen 10 unit SC TID Qty: 30 5RF Yuni Lam U-100 Insulin 100 unit/mL (3 mL) insulin pen 50 unit SC DAILY Qty: 90 4RF Incruse Ellipta 62.5 mcg/actuation blister with device 1 inh inhalation DAILY 0RF Januvia 25 mg tablet 25 mg PO DAILY Qty: 90 4RF budesonide-formoterol [Symbicort] 160-4.5 mcg/actuation HFA aerosol inhaler 2 puff inhalation BID 0RF Label Comments: Last rx'd 05/05/20 x 1 year. aj potassium chloride [K-Tab] 20 mEq tablet extended release 40 meq PO BID Qty: 180 4RF isosorbide mononitrate 10 mg tablet 10 mg PO BID Qty: 180 5RF Rx Instructions: give doses 7 hrs apart atorvastatin 40 mg tablet 40 mg PO DAILY Qty: 90 6RF duloxetine 60 mg capsule,delayed release(DR/EC) 60 mg PO DAILY Qty: 90 12RF ropinirole 2 mg tablet 2 mg PO QPM PRN (Reason: restless leg(s)) Qty: 90 5RF Rx Instructions: cholecalciferol (vitamin D3) 25 mcg (1,000 unit) capsule 25 mcg PO DAILY 0RF magnesium oxide 400 mg magnesium tablet 400 mg PO BID 0RF sennosides-docusate sodium [Senexon-S] 8.6-50 mg tablet 1 tab-cap PO QHS 0RF torsemide 100 mg tablet See Rx Instructions PO DAILY Qty: 135 6RF Rx Instructions: 1.5 Tab in AM 0.5 tab at 2 PM PO daily; Creon 6,000-19,000 -30,000 unit capsule,delayed release(DR/EC) 1 cap PO TID Qty: 270 5RF levetiracetam [Keppra] 500 mg tablet 500 mg PO BID Qty: 180 5RF Slow-Mag 71.5 mg tablet,delayed release (DR/EC) 71.5 mg PO BID Qty: 180 4RF aspirin 81 mg Tablet,Delayed Release (Dr/Ec) 81 mg PO DAILY Qty: 0 0RF acetaminophen [Tylenol Extra Strength] 500 mg Tablet 500 mg PO TID Qty: 0 0RF Discontinued cephalexin 250 mg tablet 250 mg PO TID Qty: 21 0RF No Action (DME) lancets 25 gauge misc See Dose Instructions .ROUTE .MEDSUPPLY Qty: 100 5RF Dose Instruction: As directed Rx Instructions: daily e11.9 True track smart system (DME) lancets [OneTouch Delica Lancets] 33 gauge misc See Dose Instructions .ROUTE DAILY Qty: 100 0RF Dose Instruction: E11.9 daily Rx Instructions: E11.9 daily (DME) Blood Glucose Test Strip See Dose Instructions .ROUTE .MEDSUPPLY Qty: 300 5RF Dose Instruction: As directed Rx Instructions: 3 times per day. E11.9 / Z79.4 One touch ultra (DME) pen needle, diabetic [1st Tier Unifine Pentips] 31 gauge x 1/4 needle See Dose Instructions .ROUTE .MEDSUPPLY Qty: 450 5RF Dose Instruction: As directed Rx Instructions: 5/ day E11.65. needed for several meds allopurinol 100 mg tablet 100 mg PO DAILY Qty: 90 12RF Discharge Instructions Instructions: Heart Failure (DC), Foot Care for People with Diabetes (DC), Acute Coronary Syndrome (DC), Type 2 Diabetes in the Older Adult (DC) Additional Instructions: Follow up with PCP, Cadiology and Palliative care Resume Home Health Services Stand Alone Forms: Nursing Discharge Form Referrals: Laisha Mcmahon MD, [place] [Primary Care Provider] - 01/18/22 1:40 pm Vicky Pickard MD [ [facility]FF [facility]YS[facility]] - Mesfin Edouard MD [ [facility]YS[facility]IAN] - 02/01/22 1:15 pm Activity:: Activity as Tolerated Equipment/Supplies:: Oxygen (L/min Below) Diet:: Low Sodium Discharge Orders Discharge Orders: Discharge Order (Routine); Ordered 01/12/22 Ordered By: Danika Reid Other Ambulatory Orders: Cardiac Event Recorder (Routine) Timeframe: [id number] Facility: [facility] - Location: Respiratory Therapy Ordered By: Danika Reid DS: Summary Time Spent with Patient providing and/or coordinating discharge services: Less than 30 minutes Status at Discharge Functional status at discharge: uses cane/walker Overall status at discharge: patient is progressing back to baseline Mental Status: mental status grossly normal Speech and Movement: speech and movement normal Mood: congruent mood Affect: normal affect Quality: AMI Clinical Trial Participant: No Exam Psych Mental Status: mental status grossly normal Speech and Movement: speech and movement normal Mood: congruent mood Affect: normal affect DS: Data Vitals/I&O Vitals and I&O: Vital Signs Temperature 36.3 C L 01/12/22 08:00 Temperature Source Tympanic 01/12/22 08:00 Pulse 68 01/12/22 08:00 Pulse Rhythm Regular 01/12/22 08:20 Pulse 75 01/11/22 18:20 Respiratory Rate 19 01/12/22 08:00 Respiratory Effort Non-Labored 01/12/22 08:20 Respiratory Depth Normal 01/12/22 08:20 Respiratory Pattern Normal 01/12/22 08:20 Blood Pressure 126/67 01/12/22 08:00 Blood Pressure Mean 100 01/11/22 18:20 Blood Pressure Position Supine 01/11/22 08:05 Pulse Oximetry 97 01/12/22 08:00 Oxygen Delivery Method Nasal Cannula 01/12/22 08:00 Oxygen Flow Rate 2 01/12/22 08:00 Pain Level 9 01/12/22 06:06 Comment 01/12/22 03:40 Intake & Output 01/11/22 01/11/22 01/12/22 11:59 23:59 11:59 Intake Total 710 / 710 Output Total 750 / 1650 900 / 1650 1947 / 1948 Balance -750 / -940 -190 / -940 -1947 / -1948 Weight 121.9 kg Intake: IV Oral 700 / 700 Output: Urine 750 / 1650 900 / 1650 1947 / 1950 Other: Urine Color Yellow Pale Yellow Dark [place] Yellow Urine Appearance Clear Clear Clear Urine Odor Normal Normal Normal Comment Patient reports stress incontinence. Stool Occult Blood Negative Stool Size Large Stool Characteristics Soft Formed Liquid Voiding Methods Bedside Commode Bedside Commode Bedside Commode [facility] All Active Problems Chest pain (Acute) Congestive heart failure (Chronic) Preserved ejection fraction-followed by cardiology at [facility] Type 2 diabetes mellitus with diabetic nephropathy (Acute) Coronary artery disease (Chronic) Chronic kidney disease, stage 4 (severe) (Acute) 12/2021, Cr-2.5 Palliative care patient (Acute) Palliative care patient (Acute) Bimalleolar ankle fracture (Acute) s/p ORIF on 10/07 Cyst of lateral meniscus of right knee (Acute) Wound abscess (Acute) Medical History Abnormal mammography 08/10/06 Acute kidney injury superimposed on chronic kidney disease [id number] kidney injury Altered mental status Anemia Ankle pain (03/13/14) Annual physical exam (12/14/15) Atrial fibrillation Atrial flutter BMI 40.0-44.9, adult (12/02/14) CAD (coronary artery disease), [place] coronary artery Carpal tunnel syndrome Carpal tunnel syndrome (08/10/06) BILATERAL R S/P SURGERY Cervical disc disorder with myelopathy (08/21/08) S/P surgery x 2 Cervical spondylosis with myelopathy Chest pain Neg Stress test CHF (congestive heart failure) Chronic obstructive lung disease CKD (chronic kidney disease) stage 3, GFR 30-59 ml/min Cr about 2.5 CKD stage 4 due to type 2 diabetes mellitus Closed avulsion fracture of condyle of right femur Closed bimalleolar fracture of right ankle Closed trimalleolar fracture of right ankle (10/03/21) Congestive heart failure Constipation Dehydration Diabetes mellitus 09/20/10 Positive Microalbumin Diabetes mellitus (09/20/10) Diastolic CHF DNR no code (do not resuscitate) DVT (deep venous thrombosis) Dysuria Essential hypertension Essential hypertension (06/13/13) Folate deficiency (02/15/16) Fracture of proximal end of right fibula Gout Gout (07/06/11) Gram-positive bacteremia Greater trochanteric bursitis of left hip Hammer toe Left/right HAP (hospital-acquired pneumonia) (01/15/19) HCAP (healthcare-associated pneumonia) Heart failure with preserved ejection fraction, borderline, class III Hepatomegaly 06/10/04 Hip joint inflamed (09/03/15) Hip pain, left Hip pain, right Hyperglycemia Hyperlipidemia (08/10/00) Hypertension Hypomagnesemia Hypoxia IDDM (insulin dependent diabetes mellitus) Left hip pain Low back pain (04/10/03) DISC HERNIATION L4. MULTILEVEL DJD/SPINAL STENOSIS BY MRI; S/P surgery Lump in neck Macrocytic anemia Medial meniscus tear Menopausal syndrome 07/11/03 Multiple falls Muscle fatigue 03/04/13 Myoclonic epileptic seizures Numbness and tingling in left upper extremity Pancreatic atrophy Posterior tibial tendon dysfunction 02/03/16 Postmenopausal bleeding neg. endometrial biopsy Postoperative wound dehiscence (12/23/15) Prerenal azotemia Primary osteoarthritis of left hip (09/17/15) Pulmonary hypertension Renal impairment (07/11/03) ADRENAL MASS. F/U W/ [facility] positive microalbumin Renal insufficiency Restless leg syndrome Rotator cuff syndrome (08/01/09) Seizure Shingles Smoker (06/30/16) 01/17/17 1-2 cig/wk SOB (shortness of breath) Spinal stenosis of lumbar region (02/15/16) Spinal stenosis of lumbar region at multiple levels Tarsal tunnel syndrome 06/11/13 Tarsal tunnel syndrome (06/11/13) Tear of lateral meniscus of right knee Trochanteric bursitis 03/18/13 Upper respiratory tract infection (08/03/15) UTI (urinary tract infection) Vaginal atrophy Vitamin D deficiency Vitamin D deficiency Weakness Surgical History Arthrodesis right 2nd toe Cataract (01/07/14) FOLLOWED BY [employer] cervical repair (~10/2008) C6-C7 DISK; RECURRENT SURGERY Cholecystectomy (07/31/13) Endometrial Biopsy NEG H/O arthrodesis right second toe H/O Spinal surgery multiple spine surgeries; low back x 2; She had multilevel DJD and spinal stenosis; disc herniation. 2008-cervical repair; C6-C7 disc; recurrent surgery. History of bilateral tubal ligation 09/11/80 History of gynecologic surgery endometrial biopsy-neg History of hip surgery 11/10/15 left hip arthroplasty 12/04/15-placement of wound VAC to left hip History of orthopedic surgery 09/11/97 tarsal tunnel release Left eye surgery 12/31/17 Ligation of fallopian tube (~1980) Open Carpal Tunnel release Right wrist surgery 10/26/17 Rotator Cuff Repair (~1980) S/P CABG (coronary artery bypass graft) (01/03/19) 4 vessel CABG and LA appendage excision, Dr. Nav Wang, [facility] [place], [place], [place] S/P carpal tunnel release S/P cholecystectomy 09/11/12 S/P rotator cuff repair 09/11/80 SPINE SURGERY Multiple spine surgeries, low back x 2. She had multilevel DJD and spinal stenosis, disc herniation Status post incision and drainage 12/04/15 left hip surgical wound dehiscence and infection tarsal tunnel release (~1997) Total replacement of hip [facility]; LEFT HIP Family History Mother Diabetes Essential hypertension Personal history of malignant neoplasm KIDNEY/LIVER/BRAIN Heart disease Hyperlipidemia Stroke Asthma Father Diabetes Essential hypertension Personal history of malignant neoplasm BONE Heart disease Asthma Sister Diabetes Essential hypertension Depression Heart disease Asthma Grandfather No problems noted. Grandfather No problems noted. Grandmother Personal history of malignant neoplasm UTERINE Grandmother Diabetes Aunt Personal history of malignant neoplasm BREAST Brother Hyperlipidemia Stroke Sister Asthma Son Asthma Daughter Depression Asthma Daughter Asthma Daughter Depression Neoplasm Asthma Brother No problems noted. 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
[2022-01-12 11:36] VITALS: BP 124/75; PULSE 76; RESP 18; TEMP 36; O2SAT 98
--- NOTE | 2022-01-12 16:48 | PDOC.CMDIS ---
- If Service Date Differs Date of service: 01/12/22 Time of Service: 16:48 LACE Index Scoring Tool - Questions: Length of Stay (in days): 2 Acuity (Admit via E.D.?): Yes Comorbidities: Diabetes w/o Complication, Congestive Heart Failure, Liver or Renal Disease E.D. Visits: 5 - Answers: Total Score: 14 Risk of Readmission: High Risk Care Management Discharge Reason for Hospitalization: Chest Pain Discharge Plan: Bibi returned home today with a resumption of HH services. Her daughter drove her home via private vehicle. She will follow up with her PCP and discharge plan of care. She is happy to be going home. Patient/Family Education Needs: Review discharge instructions and limitations, discussion of self care needs including ask me three and goals of care. Services Needed at Discharge: Home Health Care Services (resume HH )
== END 2022-01-12 13:09 | disposition home health service (06) ==
LOC: ER 20:34 → ICU 21:29 → MS 01-12 10:47 → ICU 01-13 08:40 → MS 01-13 08:40
PROVIDERS: Admitting Provider General Practice; Emergency Provider Student in an Organized Health Care Education/Training Program; PCP Family Medicine; Visit Provider General Practice
DX: R07.89 Other chest pain (principal); I48.91 Unspecified atrial fibrillation; R35.0 Frequency of micturition; R06.02 Shortness of breath; E11.22 Type 2 diabetes mellitus with diabetic chronic kidney disease; M10.9 Gout, unspecified; Z95.1 Presence of aortocoronary bypass graft; Z98.1 Arthrodesis status; Z79.84 Long term (current) use of oral hypoglycemic drugs; Z79.899 Other long term (current) drug therapy; I13.0 Hypertensive heart and chronic kidney disease with heart failure and stage 1 through stage 4 chronic kidney disease, or unspecified chronic kidney disease; I25.10 Atherosclerotic heart disease of native coronary artery without angina pectoris; Z66 Do not resuscitate; Z79.82 Long term (current) use of aspirin; Z99.81 Dependence on supplemental oxygen; Z79.4 Long term (current) use of insulin; N18.4 Chronic kidney disease, stage 4 (severe); I50.30 Unspecified diastolic (congestive) heart failure; D64.9 Anemia, unspecified; I48.92 Unspecified atrial flutter; E55.9 Vitamin D deficiency, unspecified; G40.909 Epilepsy, unspecified, not intractable, without status epilepticus; R82.81 Pyuria; I25.2 Old myocardial infarction; Z87.891 Personal history of nicotine dependence; S82.841D Displaced bimalleolar fracture of right lower leg, subsequent encounter for closed fracture with routine healing; X58.XXXD Exposure to other specified factors, subsequent encounter
CPT/HCPCS: 36415; 36416; 78452; 80053; 82805; 82962; 87077; 87637; 93005; 93016; 93018; 94640; 96372; 99285; J3490; 71045; 81003; 81015; 83880; 84484; 85025; 85610; 85730; 87086; 87186; 93010; 93017; 99217; 99219; 99225; G0378; J2405; J2785

== ENCOUNTER 2022-01-12 12:13 | Outpatient (RCR) | payer OTHER, MEDICAID, SELFPAY ==
--- NOTE | 2022-01-12 12:30 | HOLTER_ITS ---
APPROVED REPORT Conclusion This is a 48-hour Holter monitor, ordered for paroxysmal atrial fibrillation The patient was in sinus rhythm for the majority of the recording with an average heart rate of 81. Minimum was 63, maximum 148 There were rare ventricular ectopic beats There did appear to be paroxysmal atrial fibrillation, 2 episodes, which lasted a total of 1 minute a nd 21 seconds. Maximal rate while in atrial fibrillation was 128 bpm There was no high-grade AV block, no pauses greater than 3 seconds
== END 2022-02-08 23:59 | disposition home or self-care (01) ==
LOC: RT 12:13
PROVIDERS: PCP Family Medicine; Visit Provider Nurse Practitioner Family
DX: R07.9 Chest pain, unspecified (principal); I48.0 Paroxysmal atrial fibrillation
CPT/HCPCS: 93227; 93225; 93226

== ENCOUNTER → 2022-01-12 15:26 | Outpatient (CLI) | payer OTHER, MEDICAID, SELFPAY ==
--- NOTE | 2022-01-12 13:30 | DI.RAD_ITS ---
Exam(s) XR ANKLE RT COMPLETE EXAM: XR ANKLE RT COMPLETE CLINICAL HISTORY: Fracture f/u. TECHNIQUE: 2D digital imaging was performed. Three views. COMPARISON: CR XR ANKLE RT COMPLETE from 11/30/2021 FINDINGS: There has been no change in fracture or hardware alignment. Some soft tissue swelling remains presen t. The bones appear osteopenic secondary to disuse. Vascular calcifications and large calcaneal spu r noted. Degenerative changes are noted in the tarsal region. IMPRESSION: No significant change. DATA REPOSITORY: RADIATION DOSE DELIVERED:
== END ==
PROVIDERS: PCP Family Medicine; Visit Provider Student in an Organized Health Care Education/Training Program
DX: M25.571 Pain in right ankle and joints of right foot (principal); S82.841D Displaced bimalleolar fracture of right lower leg, subsequent encounter for closed fracture with routine healing; M77.31 Calcaneal spur, right foot; M85.88 Other specified disorders of bone density and structure, other site
CPT/HCPCS: 73610

== ENCOUNTER 2022-02-01 14:00 | Outpatient (CLI) | payer OTHER, MEDICAID, SELFPAY ==
--- NOTE | 2022-02-01 13:15 | DI.RAD_ITS ---
Exam(s) XR ANKLE RT COMPLETE EXAM: XR ANKLE RT COMPLETE CLINICAL HISTORY: ANKLE F/U TECHNIQUE: COMPARISON: CR XR ANKLE RT COMPLETE from 01/12/2022 FINDINGS: Three views were obtained and show plate and screw fixation of tibiofibular fracture, no gross interv al change in alignment of fracture fragments comparison with prior examination of January 12. IMPRESSION: RADIATION DOSE DELIVERED: Total DLP
--- NOTE | 2022-02-01 13:30 | DI.RAD_ITS ---
Exam(s) XR KNEE RT 3V AP,LAT,BEBA EXAM: XR KNEE RT 3V AP,LAT,BEBA CLINICAL HISTORY: follow up of injury from september 2021 TECHNIQUE: COMPARISON: CR XR KNEE RT 2V AP,LAT from 10/04/2021 FINDINGS: Three views were obtained. There is moderate to severe narrowing of the cartilaginous joint space of the lateral tibiofemoral joint. There is also a mild narrowing of the cartilaginous joint space of the patellofemoral joint. Mild marginal osteophytes are noted involving all 3 joints of the knee. No gross knee joint effusion . IMPRESSION: DJD predominantly involving lateral tibiofemoral joint. RADIATION DOSE DELIVERED: Total DLP
== END 2022-02-01 14:01 | disposition home or self-care (01) ==
LOC: DIORS 14:01
PROVIDERS: PCP Family Medicine; Referring Provider Family Medicine; Visit Provider Student in an Organized Health Care Education/Training Program
DX: S82.841A Displaced bimalleolar fracture of right lower leg, initial encounter for closed fracture; X58.XXXA Exposure to other specified factors, initial encounter
CPT/HCPCS: 73562; 99214; 73610

== ENCOUNTER 2022-04-06 13:16 | Outpatient (CLI) | payer OTHER, MEDICAID, SELFPAY ==
--- NOTE | 2022-04-06 13:00 | DI.RAD_ITS ---
Exam(s) XR ANKLE RT COMPLETE EXAM: XR ANKLE RT COMPLETE CLINICAL HISTORY: follow up. TECHNIQUE: 2D digital imaging was performed. Images were obtained. AP, lateral and oblique views w ere obtained. COMPARISON: CR XR ANKLE RT COMPLETE from 02/01/2022 FINDINGS: BONES: There are stable post operative changes present. No new fracture or dislocation. There has be en no change in the fracture fragments present. The medial malleolar fracture line is still visualiz ed. The surfaces appear almost well corticated raising the question of nonunion. There is a moderat e plantar calcaneal spur. JOINTS: Degenerative changes are seen in the hindfoot particular at the talonavicular joint. No join t effusion is present. SOFT TISSUE: Atherosclerosis is present. IMPRESSION: Stable postoperative changes. DATA REPOSITORY: RADIATION DOSE DELIVERED:
== END 2022-04-06 13:17 | disposition home or self-care (01) ==
LOC: DIORS 13:16
PROVIDERS: PCP Family Medicine; Referring Provider Family Medicine; Visit Provider Physician Assistant Surgical
DX: M23.000 Cystic meniscus, unspecified lateral meniscus, right knee; S82.843D Displaced bimalleolar fracture of unspecified lower leg, subsequent encounter for closed fracture with routine healing; X58.XXXD Exposure to other specified factors, subsequent encounter
CPT/HCPCS: 20610; 99214; 73610; J1040

== ENCOUNTER 2022-06-24 20:56 | Outpatient (REF) | payer OTHER, MEDICAID, SELFPAY | END 2022-06-24 20:57 | disposition home or self-care (01) | LOC: LBN 20:56 | PROVIDERS: PCP Family Medicine; Visit Provider Nurse Practitioner Family | DX: N39.0 Urinary tract infection, site not specified (principal) | CPT/HCPCS: 87077; 87086; 87186 ==

== ENCOUNTER 2022-08-02 02:54 | Outpatient (CLI) | payer OTHER, MEDICAID, SELFPAY ==
[2022-08-02 12:39] LABS: HCT 40.1 % (36.0-46.0); HGB 11.4 g/dL (11.2-15.7); MCH 22.9 pg (27.0-33.0); MCHC 28.4 % (32.0-36.0); MCV 81 fL (80-95); MPV 10.4 fL (8.0-11.0); Platelet Count 432 10^3/uL (130-400); RBC 4.98 10^6/uL (3.93-5.22); RDW 18.2 % (11.7-14.6); RDW-SD 51.6 fL; WBC 19.13 10^3/uL (4.4-10.8)
[2022-08-02 12:58] LABS: COMMENT (LAB VIEW ONLY) 21.79 mg/dL; Microalb ug/mg Crea 93.2 ug/mg Cr
[2022-08-02 13:01] LABS: ALT 17 U/L (14-59); AST 20 U/L (15-37); Albumin 3.9 g/dL (3.4-5.0); Alkaline Phosphatase 82 U/L (46-116); BUN 58 mg/dL (7-18); Bilirubin, Total 0.5 mg/dL (0.2-1.0); CREATININE 2.3 mg/dL (0.55-1.02); Calcium 7.5 mg/dL (8.5-10.1); Calculated LDL 75 mg/dL (<100); Chloride 99 mmol/L (98-107); Cholesterol 151 mg/dL (<200); Estimated GFR 22.45 (mL/min/1.73m2); Glucose 142 mg/dL (74-106); HDL Cholesterol 54 mg/dL (40-60); Magnesium 0.8 mg/dL (1.8-2.4); Potassium 4.2 mmol/L (3.5-5.1); Sodium 141 mmol/L (136-145); Triglyceride 113 mg/dL (<150)
[2022-08-02 13:23] LABS: Uric Acid 8.8 mg/dL (2.6-6.0)
[2022-08-02 13:25] LABS: Hemoglobin A1C 7.4 % (<5.7)
== END 2022-08-02 02:55 | disposition home or self-care (01) ==
LOC: LOS 02:54
PROVIDERS: PCP Family Medicine; Visit Provider Family Medicine
DX: E11.21 Type 2 diabetes mellitus with diabetic nephropathy (principal); I50.9 Heart failure, unspecified; N18.4 Chronic kidney disease, stage 4 (severe); M10.9 Gout, unspecified
CPT/HCPCS: 36415; 80053; 80061; 85027; 82043; 82570; 83036; 83735; 84550

== ENCOUNTER 2022-08-16 14:18 | Outpatient (REF) | payer OTHER, MEDICAID, SELFPAY ==
[2022-08-16 20:41] LABS: HCT 38.5 % (36.0-46.0); MCH 22.7 pg (27.0-33.0); MCHC 28.6 % (32.0-36.0); MCV 79 fL (80-95); MPV 10.6 fL (8.0-11.0); Platelet Count 387 10^3/uL (130-400); RBC 4.85 10^6/uL (3.93-5.22); RDW 17.6 % (11.7-14.6); RDW-SD 50.3 fL; WBC 12.88 10^3/uL (4.4-10.8)
[2022-08-16 20:52] LABS: ALT 17 U/L (14-59); AST 14 U/L (15-37); Albumin 3.6 g/dL (3.4-5.0); Alkaline Phosphatase 98 U/L (46-116); Anion Gap 12.2 mmol/L (3-11); BUN 29 mg/dL (7-18); Bilirubin, Total 0.6 mg/dL (0.2-1.0); CO2 30.8 mmol/L (21.0-32.0); CREATININE 2.4 mg/dL (0.55-1.02); Calcium 6.9 mg/dL (8.5-10.1); Chloride 101 mmol/L (98-107); Estimated GFR 21.33 (mL/min/1.73m2); Glucose 115 mg/dL (74-106); Magnesium 0.8 mg/dL (1.8-2.4); PHOSPHORUS 4.2 mg/dL (2.6-4.7); Potassium 4.2 mmol/L (3.5-5.1); Sodium 144 mmol/L (136-145); Total Protein 7.5 g/dL (6.4-8.2); Uric Acid 8.1 mg/dL (2.6-6.0)
[2022-08-17 12:10] LABS: Lab Add On Test DONE
[2022-08-17 13:07] LABS: Vitamin D 25 Total 64.2 ng/mL (30-100)
[2022-08-17 18:29] LABS: Parathyroid Hormone,Intact 195 pg/mL (19-88)
== END 2022-08-16 14:19 | disposition home or self-care (01) ==
LOC: LBN 14:18
PROVIDERS: PCP Family Medicine; Visit Provider Family Medicine
DX: E11.21 Type 2 diabetes mellitus with diabetic nephropathy (principal); I50.9 Heart failure, unspecified; N18.4 Chronic kidney disease, stage 4 (severe); M10.9 Gout, unspecified; M23.000 Cystic meniscus, unspecified lateral meniscus, right knee; E83.51 Hypocalcemia
CPT/HCPCS: 80053; 82306; 85027; 83735; 83970; 84100; 84550

== ENCOUNTER 2022-09-26 01:34 | Outpatient (CLI) | payer OTHER, MEDICAID, SELFPAY ==
--- NOTE | 2022-09-26 07:00 | DI.US_ITS ---
Exam(s) US PELVIS TRANSVAGINAL EXAM: US PELVIS TRANSVAGINAL CLINICAL HISTORY: post menopausal bleeding,N95.0. TECHNIQUE: Transabdominal and transvaginal pelvic ultrasound was performed using standard protocol. COMPARISON: US ABDOMEN ULTRASOUND (P) from 06/21/[address] ABDOMEN PELVIS WO from 03/11/2020 FINDINGS: KIDNEYS: There is a simple cyst again seen in the superior pole of the right kidney. No follow-up is recommended. UTERUS: Position: Anteverted. Size: 6.3 long by 3.4 AP by 4.5 transverse cm Endometrium: 1.4 cm. There is a thickened endometrium in this postmenopausal patient. Myometrium: Unremarkable. Cervix: Unremarkable. OVARIES: Right: 2.5 x 1.9 x 1.1 cm Cyst or mass: No suspicious cystic or solid masses. Left: 2.0 x 1.2 x 1.9 cm Cyst or mass: No suspicious cystic or solid masses. DOPPLER: Color: Symmetric and uniform flow to both ovaries. CUL-DE-SAC: Free fluid: None. Other: None. IMPRESSION: 1. Stable right simple renal cysts. No follow-up is recommended. 2. Thickened endometrial stripe in this postmenopausal patient. Gynecologic consult is recommended. This can be seen with hyperplasia or neoplasm. 3. Unremarkable bilateral ovaries. DATA REPOSITORY:
== END 2022-09-26 01:54 ==
LOC: DI 01:34
PROVIDERS: PCP Family Medicine; Visit Provider Family Medicine
DX: N28.1 Cyst of kidney, acquired (principal); N95.0 Postmenopausal bleeding
CPT/HCPCS: 76830; 76856

== ENCOUNTER 2022-10-05 02:05 | Outpatient (CLI) | payer OTHER, MEDICAID, SELFPAY ==
[2022-10-05 12:51] LABS: ALT 23 U/L (14-59); AST 18 U/L (15-37); Albumin 3.9 g/dL (3.4-5.0); Alkaline Phosphatase 88 U/L (46-116); Anion Gap 8.8 mmol/L (3-11); BUN 42 mg/dL (7-18); Bilirubin, Total 0.6 mg/dL (0.2-1.0); CO2 31.2 mmol/L (21.0-32.0); CREATININE 2.3 mg/dL (0.55-1.02); Chloride 103 mmol/L (98-107); Estimated GFR 22.45 (mL/min/1.73m2); Glucose 114 mg/dL (74-106); PHOSPHORUS 4.3 mg/dL (2.6-4.7); Potassium 4.5 mmol/L (3.5-5.1); Sodium 143 mmol/L (136-145); Total Protein 8.1 g/dL (6.4-8.2)
== END 2022-10-05 02:06 | disposition home or self-care (01) ==
LOC: LOS 02:05
PROVIDERS: PCP Family Medicine; Visit Provider Family Medicine
DX: E21.3 Hyperparathyroidism, unspecified; R79.89 Other specified abnormal findings of blood chemistry
CPT/HCPCS: 36415; 80053; 84100

== ENCOUNTER 2022-11-15 12:26 | Outpatient (REF) | payer OTHER, MEDICAID, SELFPAY ==
--- NOTE | 2022-11-15 09:30 | ENDOMET_PTH ---
PATIENT: Ann-Marie Griggs LOC: [facility] U#:[id number] AGE/SX: 72/F ROOM: RE11/15/[address]: Laisha Mcmahon MD, DC : 1950 BED: DIS: 11/15/2022 SPEC #: [id number] RECD: 11/15/22 12:47 STATUS: CASEY REQ #: [id number] MARISA: 11/15/22 09:[address]: Lasiha Mcmahon DEPT: Surgical Specimen RECD BY: Tuyet Red Tissues: 1 - ENDOMETRIUM BX/SHERLEY Procedures: GROSS AND MICRO LEVEL 4 Comments: [id number]
== END 2022-11-15 12:27 | disposition home or self-care (01) ==
LOC: LBN 12:26
PROVIDERS: PCP Family Medicine; Visit Provider Family Medicine
DX: N93.8 Other specified abnormal uterine and vaginal bleeding (principal)
CPT/HCPCS: 88305

== ENCOUNTER 2023-02-01 11:26 | Outpatient (CLI) | payer OTHER, MEDICAID, SELFPAY ==
--- NOTE | 2023-02-01 11:15 | DI.RAD_ITS ---
Exam(s) XR ANKLE RT COMPLETE EXAM: XR ANKLE RT COMPLETE CLINICAL HISTORY: ankle fx f/u. TECHNIQUE: 2D digital imaging was performed. COMPARISON: CR XR ANKLE RT COMPLETE from 04/06/2022 FINDINGS: Four views: Again noted is a hardware comprised of a lateral fixation plate across distal fibula as well as a hor izontally orientated syndesmotic screw and there is also a screw across the medial malleolus fracture site again noted. Medial malleolus fracture is incompletely healed. There is no widening of the ankle mortise. Talar dome appears un remarkable. There has been healing of the fibular fracture site. However, there is area of lucency around the ho rizontal syndesmotic screw noted consistent with probable element of loosening. Similar findings not seen around the medial malleolus screw nor related to the screws of the lateral fixation plate. Prominent inferior calcaneal spur again noted. IMPRESSION: Multilevel findings as described individually above. DATA REPOSITORY: RADIATION DOSE DELIVERED:
== END 2023-02-01 11:27 | disposition home or self-care (01) ==
LOC: DIORS 11:26
PROVIDERS: PCP Family Medicine; Referring Provider Family Medicine; Visit Provider Student in an Organized Health Care Education/Training Program
DX: M17.11 Unilateral primary osteoarthritis, right knee; X58.XXXD Exposure to other specified factors, subsequent encounter; S82.842D Displaced bimalleolar fracture of left lower leg, subsequent encounter for closed fracture with routine healing
CPT/HCPCS: 20610; 99213; 73610; J1030

== ENCOUNTER 2023-03-06 13:57 | Outpatient (REF) | payer OTHER, MEDICAID, SELFPAY | END 2023-03-06 13:58 | disposition home or self-care (01) | LOC: LBN 13:57 | PROVIDERS: PCP Family Medicine; Visit Provider Family Medicine | DX: N89.8 Other specified noninflammatory disorders of vagina; B37.31 Acute candidiasis of vulva and vagina | CPT/HCPCS: 87480; 87510; 87660 ==

== ENCOUNTER 2023-05-26 03:48 | Outpatient (CLI) | payer OTHER, MEDICAID, SELFPAY ==
[2023-05-26 12:59] LABS: Hemoglobin A1C 7.3 % (<5.7)
== END 2023-05-26 03:49 | disposition home or self-care (01) ==
LOC: LBO 03:49
PROVIDERS: PCP Family Medicine; Visit Provider Family Medicine
DX: E11.9 Type 2 diabetes mellitus without complications (principal)
CPT/HCPCS: 36415; 83036

== ENCOUNTER → 2023-07-27 02:31 | Outpatient (CLI) | payer OTHER, MEDICAID, SELFPAY ==
--- NOTE | 2023-07-27 08:15 | DI.US_ITS ---
Exam(s) US RENAL EXAM: US RENAL CLINICAL HISTORY: elevated creatinine,R79.89. TECHNIQUE: Olivo scale, color and spectral Doppler were used. COMPARISON: CT CT ABDOMEN PELVIS WO from 03/11/2020 FINDINGS: Exam limited by patient body habitus. Renal size in cm: Right: 10.2 left: 10.3 Echogenicity: Normal Hydronephrosis: No Cyst or mass: 4.8 centimeter maximal dimension cyst superior pole right kidney. 1.8 centimeters cyst mid right kidney. Nephrolithiasis: No Bladder:Normal. Both ureteral jets were visualized. Prevoid vol:964 cc Postvoid vol:385 cc IMPRESSION: Right renal cysts. No follow-up recommended. No evidence of stones or hydronephrosis. Elevated postvoid residual. DATA REPOSITORY:
== END ==
PROVIDERS: PCP Family Medicine; Visit Provider Family Medicine
DX: R79.89 Other specified abnormal findings of blood chemistry (principal); N28.1 Cyst of kidney, acquired
CPT/HCPCS: 76770

== ENCOUNTER 2023-10-03 09:26 | Outpatient (CLI) | payer OTHER, MEDICAID, SELFPAY ==
[2023-10-03 12:14] LABS: HCT 41.6 % (36.0-46.0); HGB 11.8 g/dL (11.2-15.7); MCH 23.6 pg (27.0-33.0); MCHC 28.4 % (32.0-36.0); MCV 83 fL (80-95); MPV 9.9 fL (8.0-11.0); Platelet Count 356 10^3/uL (130-400); RDW 18.8 % (11.7-14.6); RDW-SD 56.4 fL
[2023-10-03 14:24] LABS: Hemoglobin A1C 6.3 % (<5.7)
[2023-10-03 15:31] LABS: ALT 23 U/L (14-59); AST 24 U/L (15-37); Albumin 3.3 g/dL (3.4-5.0); Alkaline Phosphatase 107 U/L (46-116); Anion Gap 12.7 mmol/L (3-11); BUN 67 mg/dL (7-18); Bilirubin, Total 0.4 mg/dL (0.2-1.0); CO2 27.3 mmol/L (21.0-32.0); CREATININE 2.8 mg/dL (0.55-1.02); Calcium 6.8 mg/dL (8.5-10.1); Calculated LDL 62 mg/dL (<100); Chloride 100 mmol/L (98-107); Cholesterol 146 mg/dL (<200); Estimated GFR 17.62 (mL/min/1.73m2); Glucose 160 mg/dL (74-106); HDL Cholesterol 55 mg/dL (40-60); Potassium 4.5 mmol/L (3.5-5.1); Sodium 140 mmol/L (136-145); Triglyceride 149 mg/dL (<150)
== END 2023-10-03 09:27 | disposition home or self-care (01) ==
LOC: LOS 09:26
PROVIDERS: PCP Family Medicine; Referring Provider Family Medicine; Visit Provider Family Medicine
DX: I10 Essential (primary) hypertension (principal); E11.9 Type 2 diabetes mellitus without complications
CPT/HCPCS: 36415; 80053; 80061; 85027; 83036

== ENCOUNTER 2023-10-30 04:56 | Outpatient (CLI) | payer OTHER, MEDICAID, SELFPAY ==
[2023-10-30 12:19] LABS: Bilirubin Negative (Negative); Blood Small (Negative); Clarity Cloudy (Clear); Glucose 500 mg/dL (Negative); Ketones Negative (Negative); Leukocyte Esterase Large (Negative); Nitrite Negative (Negative); Specific Gravity 1.015 (1.005-1.025); Urobilinogen 0.2 mg/dL (Up to 0.2)
[2023-10-30 12:26] LABS: C & S Indicated? Yes; WBC >50 HPF (0-5)
[2023-10-30 12:46] LABS: ALT 22 U/L (14-59); AST 16 U/L (15-37); Albumin 3.7 g/dL (3.4-5.0); Alkaline Phosphatase 120 U/L (46-116); Anion Gap 11.2 mmol/L (3-11); BUN 46 mg/dL (7-18); Bilirubin, Total 0.6 mg/dL (0.2-1.0); CO2 29.8 mmol/L (21.0-32.0); CREATININE 2.5 mg/dL (0.55-1.02); Calcium 9.7 mg/dL (8.5-10.1); Chloride 100 mmol/L (98-107); Estimated GFR 20.18 (mL/min/1.73m2); Glucose 224 mg/dL (74-106); Potassium 4.6 mmol/L (3.5-5.1); Sodium 141 mmol/L (136-145); Total Protein 8.1 g/dL (6.4-8.2)
[2023-10-30 12:56] LABS: PHOSPHORUS 4.4 mg/dL (2.6-4.7)
[2023-10-30 18:15] LABS: Parathyroid Hormone,Intact 354 pg/mL (19-88)
== END 2023-10-30 04:57 | disposition home or self-care (01) ==
LOC: LOS 04:56
PROVIDERS: PCP Family Medicine; Visit Provider Family Medicine
DX: E83.51 Hypocalcemia (principal); I10 Essential (primary) hypertension; N39.0 Urinary tract infection, site not specified; R82.89 Other abnormal findings on cytological and histological examination of urine
CPT/HCPCS: 36415; 80053; 87077; 81003; 81015; 83970; 84100; 87086; 87186

== ENCOUNTER → 2023-11-07 12:37 | Outpatient (BNVA) | payer OTHER, MEDICAID, SELFPAY | PROVIDERS: PCP Family Medicine; Referring Provider Family Medicine; Visit Provider Student in an Organized Health Care Education/Training Program | DX: J44.0 Chronic obstructive pulmonary disease with (acute) lower respiratory infection (principal); J96.11 Chronic respiratory failure with hypoxia; G47.34 Idiopathic sleep related nonobstructive alveolar hypoventilation; I27.20 Pulmonary hypertension, unspecified | CPT/HCPCS: 99215 ==

== ENCOUNTER 2023-11-14 04:57 | Outpatient (CLI) | payer OTHER, MEDICAID, SELFPAY ==
[2023-11-14] MEDS: Levalbuterol HFA 15 GM INH 4 PUFF IH (16:29)
[2023-11-14] MEDS: Inhaler, Assist Device 1 EACH MC (16:29)
--- NOTE | 2023-11-17 12:32 | W.PFT ---
Date of service: 11/14/23 Time of Service: 15:19 Pulmonary Function Test Result Indications: COPD Interpretation Spirometry: There is severe airflow limitation. No bronchodilator response. Lung Volumes: There is air trapping Diffusion Capacity: Decreased diffusion Airway Pressure: Increased airways resistance Impression Severe airflow limitation with air trapping and a decreased diffusion. Clinical Correlation therefore is recommended.
--- NOTE | 2023-11-21 08:27 | W.NOCTURNAL ---
Date of service: 11/14/23 Time of Service: 22:01 Nocturnal Oximetry Note: Overnight Oximetry Amount of time analyzed: 9 hours, 9 minutes, 2.5 LPM Number of minutes under 88%: 1.4 FREDERICK:0.4 Appearance of oxygen saturation pattern:Normal Recommendation: Appropriate supplemental O2 overnight Darcy Wasserman MD Pulmonary & Critical Care Medicine
== END 2023-11-14 04:58 | disposition home or self-care (01) ==
LOC: RT 04:57
PROVIDERS: PCP Family Medicine; Visit Provider Student in an Organized Health Care Education/Training Program
DX: J44.9 Chronic obstructive pulmonary disease, unspecified (principal)
CPT/HCPCS: 94060; 94726; 94729; 94762

== ENCOUNTER → 2023-11-20 00:59 | Outpatient (CLI) | payer OTHER, MEDICAID, SELFPAY ==
--- NOTE | 2023-11-20 13:30 | DI.US_ITS ---
APPROVED REPORT EXAM: Comprehensive 2D, Doppler, and color-flow Echocardiogram Patient Location: [facility] Technician: Danny Melo RDCS (AE) Indications: pulmonary HTN Other Information Technically limited study due to body habitus. Conclusion Technically difficult but adequate study Normal left ventricular wall thickness and chamber size. Ejection fraction is 55% Septal motion is consistent with IVCD/LBBB Normal right ventricular size and systolic function Both atria are normal in size There are no structural valvular abnormalities There is mild mitral and tricuspid regurgitation Estimated right ventricular systolic pressure is 25 mmHg Wall motion Left Ventricle The left ventricle is normal size. The left ventricular systolic function is normal. The left ventric ular ejection fraction is within the normal range. There is normal left ventricular wall thickness. P aradoxical septal motion consistent with conduction abnormality. There is no ventricular septal defec t visualized. LVEF is 55%. Right Ventricle The right ventricle is normal size. The right ventricular systolic function is normal. Atria The left atrium size is normal. Right atrium is mildly dilated. The interatrial septum is intact with no evidence for an atrial septal defect. Aortic Valve The aortic valve is normal in structure. There is no aortic valvular stenosis. No aortic regurgitatio n is present. Mitral Valve Mitral annular calcification. No evidence of mitral valve stenosis. Mild mitral regurgitation. Tricuspid Valve The tricuspid valve is normal in structure. There is no tricuspid valve stenosis. Mild tricuspid regu rgitation. The RVSP is 25.4 mmHg. Pulmonic Valve The pulmonary valve is normal in structure. There is no pulmonic valvular stenosis. There is no pulmo nick valvular regurgitation. Great Vessels The aortic root is normal in size. Ascending aorta is not well visualized. Aortic arch is not well vi sualized. IVC is normal in size and collapses >50% with inspiration. Pericardium There is no pericardial effusion. 2D Dimensions IVSD d PLAX 0.72 cm F: 0.6-1.0 Ao Root d 3.27 cm F: 2.7 - 3.3 LVPW d PLAX 0.68 cm F: 0.6 - 1.0 LVID d PLAX 4.35 cm F: 3.8 - 5.2 LVDs 3.12 cm F: 2.2 - 3.5 LV EF Teichholz 55.0 % FS 28.33 % LV EDV (Teich) 85.3 mL LV ESV (Teich) 38.4 mL Stroke Vol Index (Teich) 20.76 M-Mode TAPSE 1.80 cm (M/F) >1.7 Auto EF LV EDV A4C 93.4 mL LV EDV A2C 105.3 mL LV EDV BP 97.7 mL LV ESV A4C 42.5 mL LV ESV A2C 47.3 mL LV ESV BP 44.2 mL LVEF(%) A4C 54.5 % LVEF(%) A2C 55.1 % LVEF(%) BP 54.8 % LV SV A4C 50.9 ml LV SV A2C 58.0 ml LV SV BP 53.5 ml LV CO A4C 3.8 L/min LV CO A2C 4.7 L/min LV CO BP 4.2 L/min HR A4C 73.93 BPM HR A2C 80.36 BPM LV EDV Index (BP) LA Volume LA Length A4C 4.7 cm LA Length A2C LA Area A4C s 7.70 cm2 LA Area A2C s LA Vol A4C A-L 10.76 mL LA Vol A2C A-L LA Vol Biplane A-L LA Vol A4C MOD 10.3 mL LA Vol A2C MOD LA Vol BP MOD RA Volume RA Area A4C 10.6 cm2 RA ESV A4C (A-L) 25.8mL RA Vol/BSA A4C A-L RA Length A4C 3.7 cm RA ESV A4C (MOD) 24.3mL LV Diastology MV E' medial 0.056 (>0.07 m/s) MV E Vmax 0.58 (0.4-1.3 m/s) MV E/E' MED 10.48 (<14) MV A Vmax 0.80 (0.4-1.3 m/s) MV E' lateral 0.097 (>0.1 m/s) E/A Ratio 0.7 MV E/E' LAT 6.02 (<14) MV E' Average 0.076 m/s MV E/E'(average) 7.64 Aortic Valve AoV Vmax 0.93 m/s LVOT Vmax 0.62 m/s AoV Peak Grad 3.5 mmHg LVOT Peak Grad 1.5 mmHg AoV Area (Vmax) 1.78 cm2 LVOT VTI 0.115 m AoV VTI 0.188 m LVOT Mean Grad 1.0 mmHg AoV Mean Mukul. 0.71 m/s LVOT SV 30.96 mL AoV Mean Grad 2.2 mmHg LVOT Diam s 1.85 cm AoV Area (VTI) 1.64 cm2 Velocity Ratio 0.67 Pulmonary Valve PV Vmax 0.74 (0.5-1.5 m/s) RVOT Vmax 0.65 m/s PV Peak Grad 2.2 mmHg RVOT Peak Gr. 1.7 mmHg PV Mean Mukul 0.49 m/s RVOT VTI 0.100 m PV Mean Grad 1.1 mmHg RVOT Mean Gr. 0.8 mmHg Tricuspid Valve RA Pressure 3.00 mmHg TR Vmax 2.37 m/s TR Peak Grad 22.4 mmHg RVSP (TR) 25.4 mmHg
== END ==
PROVIDERS: PCP Family Medicine; Visit Provider Family Medicine
DX: I27.20 Pulmonary hypertension, unspecified (principal)
CPT/HCPCS: 93306

== ENCOUNTER → 2024-02-07 12:29 | Outpatient (BNVA) | payer OTHER, MEDICAID, SELFPAY | PROVIDERS: PCP Family Medicine; Referring Provider Family Medicine; Visit Provider Physician Assistant Surgical | DX: J44.0 Chronic obstructive pulmonary disease with (acute) lower respiratory infection (principal); J96.11 Chronic respiratory failure with hypoxia; G47.34 Idiopathic sleep related nonobstructive alveolar hypoventilation; I27.20 Pulmonary hypertension, unspecified | CPT/HCPCS: 99214 ==

== ENCOUNTER 2024-02-13 16:48 | Inpatient (IN) | payer OTHER, MEDICAID, SELFPAY ==
[2024-02-13] VITALS (45 sets, daily range): BP systolic 99–150; BP diastolic 46–136; PULSE 59–86; RESP 11–32; TEMP 36.2; O2SAT 88–100
--- NOTE | 2024-02-13 16:30 | RT.EKG_ITS ---
APPROVED REPORT Exam: Resting ECG Reason for Exam: syncope Patient Location: E HR:79 bpm ECG Measurements Heart Rate 79 AXIS UT 190 P 36 QRSd 151 QRS 8 QT 447 T 138 QTc 513 Conclusion Sinus rhythm...normal P axis, V-rate 60- 99 LVH with secondary repolarization abnormality...multi-LVH criteria, abnrm ST-T Sinus Rhythm at 79 New incomplete LBBB
--- NOTE | 2024-02-13 16:52 | ED.GENADUL_ITS ---
Discharge Plan Disposition Patient Disposition: Admit to [facility] Condition: Fair Discharge Details Clinical Impression: Unresponsive episode, UTI (urinary tract infection), Left bundle branch block, Scalp laceration Primary Care Provider: Laisha Mcmahon ED Provider: Eleazar Schulz Bath Meds and New Rx's Prescriptions: No Action (DME) lancets 25 gauge misc See Dose Instructions .ROUTE .MEDSUPPLY Qty: 100 5RF Dose Instruction: As directed Rx Instructions: daily e11.9 True track smart system (DME) lancets [OneTouch Delica Lancets] 33 gauge misc See Dose Instructions .ROUTE DAILY Qty: 100 0RF Dose Instruction: E11.9 daily Rx Instructions: E11.9 daily albuterol sulfate 2.5 mg /3 mL (0.083 %) solution for nebulization 2.5 mg INHALATION Q2H PRN PRN (Reason: shortness of breath or wheezing) Qty: 180 4RF (DME) Blood Glucose Test Strip See Dose Instructions .ROUTE .MEDSUPPLY Qty: 300 5RF Dose Instruction: As directed Rx Instructions: 3 times per day. E11.9 / Z79.4 One touch ultra epinephrine [EpiPen 2-Erick] 0.3 mg/0.3 mL auto-injector 0.3 mg IM ONCE Qty: 2 10RF metoprolol succinate 50 mg tablet extended release 24 hr 50 mg PO DAILY Qty: 90 6RF fluconazole 150 mg tablet 150 mg PO Q3D Qty: 5 0RF acetaminophen [Tylenol Extra Strength] 500 mg tablet 1,000 mg PO BID methocarbamol 500 mg tablet 500 mg PO TID PRN (Reason: muscle spasm) Qty: 90 1RF torsemide 100 mg tablet 50 mg PO BID Qty: 90 5RF Rx Instructions: 06/20/23: Decreased per Dr. Mcmahon. See Task. -hb Breztri Aerosphere 160-9-4.8 mcg/actuation HFA aerosol inhaler 2 inh inhalation BID Qty: 10.7 12RF (DME) pen needle, diabetic [1st Tier Unifine Pentips] 31 gauge x 1/4 needle See Dose Instructions .ROUTE .MEDSUPPLY Qty: 450 5RF Dose Instruction: As directed Rx Instructions: 5/ day E11.65. needed for several meds insulin glargine [Basaglar KwikPen U-100 Insulin] 100 unit/mL (3 mL) insulin pen 50 unit SC DAILY Qty: 60 5RF lidocaine 4 % adhesive patch,medicated 1 patch topical DAILY PRN sitagliptin phosphate 25 mg tablet 25 mg PO DAILY meclizine 12.5 mg tablet 12.5 mg PO TID PRN atorvastatin 40 mg tablet 40 mg PO DAILY Qty: 90 6RF cholecalciferol (vitamin D3) 25 mcg (1,000 unit) capsule 25 mcg PO DAILY Qty: 90 4RF Eliquis 2.5 mg tablet 2.5 mg PO BID Qty: 180 4RF fesoterodine 8 mg tablet extended release 24 hr 8 mg PO DAILY Qty: 90 4RF Rx Instructions: this is the med her ins co said had no copay ropinirole 2 mg tablet 2 mg PO QPM PRN (Reason: restless leg(s)) Qty: 90 5RF Rx Instructions: duloxetine 60 mg capsule,delayed release(DR/EC) 60 mg PO DAILY Qty: 90 12RF allopurinol 100 mg tablet 100 mg PO DAILY Qty: 90 12RF Slow-Mag 71.5 mg tablet,delayed release (DR/EC) 71.5 mg PO TID Qty: 270 4RF tramadol 50 mg tablet 50 mg PO BID MDD 100 PRN (Reason: pain) Qty: 60 3RF insulin aspart U-100 [Novolog FlexPen U-100 Insulin] 100 unit/mL (3 mL) insulin pen 10 unit SC TID Qty: 30 5RF Hold Instructions: Home Medication placed on hold at Doctor's office isosorbide mononitrate 10 mg tablet 10 mg PO BID Qty: 180 5RF Rx Instructions: give doses 7 hrs apart Creon 6,000-19,000 -30,000 unit capsule,delayed release(DR/EC) 1 cap PO TID Qty: 270 5RF potassium chloride [K-Tab] 20 mEq tablet extended release 20 meq PO BID Qty: 180 4RF spironolactone 25 mg tablet 25 mg PO BID Qty: 180 4RF calcium carbonate [Tums Ultra] 400 mg calcium (1,000 mg) tablet,chewable 400 mg PO TID Qty: 270 4RF Rx Instructions: for low blood calcium ergocalciferol (vitamin D2) 1,250 mcg (50,000 unit) capsule 50,000 unit PO QWEEK Qty: 13 4RF nystatin 100,000 unit/gram powder 1 applic topical BID Qty: 60 3RF estradiol 0.01 % (0.1 mg/gram) cream 1 g vaginal .twice weekly Qty: 42.5 5RF B-complex with vitamin C Tablet 1 tab PO DAILY Qty: 90 4RF omeprazole 40 mg capsule,delayed release(DR/EC) 40 mg PO DAILY Qty: 90 3RF levetiracetam [Keppra] 500 mg tablet 500 mg PO BID Qty: 180 3RF HPI General Mode of arrival: EMS . Date/Time Provider Initiated Documentation: 02/13/24 16:52 . Limitations to Documentation: no limitations . Information obtained by: patient and EMS . HPI Narrative: Patient presents to ED by EMS after unresponsive event occurred this afternoon. Patient last remembers sitting on a barstool. She was found under the table with head laceration. She has no recollection of what occurred. She does complain of headache has an obvious scalp laceration. Complained of some neck pain to EMS and was called. Denies having any type of chest pain and feels that her breathing is baseline. She has COPD and is on oxygen chronically. Denies any abdominal pain or back pain. Does complain of left hip pain. Denies any numbness or weakness to either side. Does report a prior history of seizures last 1 maybe a year ago. She takes Keppra for these. Related Data Home Medications Medication Instructions Recorded Confirmed lancets 33 gauge (OneTouch Delica #100 ea 12/18/18 02/13/24 Lancets) lancets 25 gauge #100 ea 01/29/19 02/13/24 albuterol sulfate 2.5 mg/3 mL 2.5 mg (3 mL) inhalation Q2H PRN 09/10/20 02/13/24 (0.083 %) solution for nebulization PRN shortness of breath or wheezing #180 mL pen needle, diabetic 31 gauge x #450 ea 12/10/20 02/13/2409/14 (1st Tier Unifine Pentips) epinephrine 0.3 mg/0.3 mL 0.3 mg (0.3 mL) IM ONCE #2 ea 02/04/21 02/13/24 injection, auto-injector (EpiPen 2-Erick) blood sugar diagnostic (Blood #300 ea 04/08/21 02/13/24 Glucose Test strips) acetaminophen 500 mg tablet 1,000 mg PO BID 11/15/22 02/13/24 (Tylenol Extra Strength) insulin glargine 100 unit/mL (3 50 unit (0.5 mL) subcut DAILY #60 03/23/23 02/13/24 mL) subcutaneous pen (Basaglar mL KwikPen U-100 Insulin) lidocaine 4 % topical patch 1 patch topical DAILY PRN 05/12/23 02/13/24 meclizine 12.5 mg tablet 12.5 mg PO TID PRN 05/12/23 02/13/24 sitagliptin phosphate 25 mg tablet 25 mg PO DAILY 05/12/23 02/13/24 methocarbamol 500 mg tablet 500 mg PO TID PRN muscle spasm #90 06/05/23 02/13/24 tabs atorvastatin 40 mg tablet 40 mg PO DAILY #90 tab-caps 06/09/23 02/13/24 cholecalciferol (vitamin D3) 25 25 mcg PO DAILY #90 caps 07/07/23 02/13/24 mcg (1,000 unit) capsule apixaban 2.5 mg tablet (Eliquis) 2.5 mg PO BID #180 tabs 07/31/23 02/13/24 fesoterodine 8 mg tablet,extended 8 mg PO DAILY #90 tabs 08/08/23 02/13/24 release 24 hr allopurinol 100 mg tablet 100 mg PO DAILY #90 tab-caps 08/30/23 02/13/24 duloxetine 60 mg capsule,delayed 60 mg PO DAILY #90 tab-caps 08/30/23 02/13/24 release magnesium chloride 71.5 mg 71.5 mg PO TID #270 tabs 08/30/23 02/13/24 (magnesium chloride) tablet,delayed release (Slow-Mag) ropinirole 2 mg tablet 2 mg PO QPM PRN restless leg(s) 08/30/23 02/13/24 #90 tabs tramadol 50 mg tablet 50 mg PO BID PRN pain #60 tabs 09/12/23 02/13/24 insulin aspart U-100 100 unit/mL 10 unit (0.1 mL) subcut TID #30 mL 09/18/23 02/13/24 (3 mL) subcutaneous pen (Novolog FlexPen U-100 Insulin aspart) isosorbide mononitrate 10 mg tablet 10 mg PO BID #180 tabs 09/18/23 02/13/24 [id number] 1 cap PO TID #270 caps 09/18/23 02/13/24 6,000-19,000-30,000 unit capsule,delayed rel (Creon) potassium chloride 20 mEq 20 meq PO BID #180 tabs 09/18/23 02/13/24 tablet,extended release (K-Tab) spironolactone 25 mg tablet 25 mg PO BID #180 tabs 09/18/23 02/13/24 metoprolol succinate 50 mg 50 mg PO DAILY #90 tabs 10/03/23 02/13/24 tablet,extended release 24 hr calcium carbonate (Tums Ultra) 400 mg PO TID #270 tabs 10/04/23 02/13/24 ergocalciferol (vitamin D2) 1,250 50,000 unit PO QWEEK #13 caps 10/04/23 02/13/24 mcg (50,000 unit) capsule nystatin 100,000 unit/gram topical 1 applic topical BID #60 grams 10/19/23 02/13/24 powder budesonide 160 mcg-glycopyr 9 2 inh inhalation BID #10.7 grams 11/07/23 02/13/24 mcg-formot 4.8 mcg/actuation HFA inhaler (Breztri Aerosphere) estradiol 0.01% (0.1 mg/gram) 1 g vaginal .twice weekly #42.5 11/14/23 02/13/24 vaginal cream grams B-complex with vitamin C 1 tab PO DAILY #90 tabs 11/20/23 02/13/24 fluconazole 150 mg tablet 150 mg PO Q3D #5 tabs 12/14/23 02/13/24 torsemide 100 mg tablet 50 mg (1/2 x 100 mg) PO BID #90 12/26/23 02/13/24 tabs levetiracetam 500 mg tablet 500 mg PO BID #180 tabs 01/15/24 02/13/24 (Keppra) omeprazole 40 mg capsule,delayed 40 mg PO DAILY #90 caps 01/15/24 02/13/24 release Previous Rx's Medication Instructions Recorded lancets 33 gauge (OneTouch Delica #100 ea 12/18/18 Lancets) lancets 25 gauge #100 ea 01/29/19 albuterol sulfate 2.5 mg/3 mL 2.5 mg (3 mL) inhalation Q2H PRN 09/10/20 (0.083 %) solution for nebulization PRN shortness of breath or wheezing #180 mL pen needle, diabetic 31 gauge x #450 ea 12/10/20 1/ (1st Tier Unifine Pentips) epinephrine 0.3 mg/0.3 mL 0.3 mg (0.3 mL) IM ONCE #2 ea 02/04/21 injection, auto-injector (EpiPen 2-Erick) blood sugar diagnostic (Blood #300 ea 04/08/21 Glucose Test strips) insulin glargine 100 unit/mL (3 50 unit (0.5 mL) subcut DAILY #60 03/23/23 mL) subcutaneous pen (Basaglar mL KwikPen U-100 Insulin) methocarbamol 500 mg tablet 500 mg PO TID PRN muscle spasm #90 06/05/23 tabs atorvastatin 40 mg tablet 40 mg PO DAILY #90 tab-caps 06/09/23 cholecalciferol (vitamin D3) 25 25 mcg PO DAILY #90 caps 07/07/23 mcg (1,000 unit) capsule apixaban 2.5 mg tablet (Eliquis) 2.5 mg PO BID #180 tabs 07/31/23 fesoterodine 8 mg tablet,extended 8 mg PO DAILY #90 tabs 08/08/23 release 24 hr allopurinol 100 mg tablet 100 mg PO DAILY #90 tab-caps 08/30/23 duloxetine 60 mg capsule,delayed 60 mg PO DAILY #90 tab-caps 08/30/23 release magnesium chloride 71.5 mg 71.5 mg PO TID #270 tabs 08/30/23 (magnesium chloride) tablet,delayed release (Slow-Mag) ropinirole 2 mg tablet 2 mg PO QPM PRN restless leg(s) 08/30/23 #90 tabs tramadol 50 mg tablet 50 mg PO BID PRN pain #60 tabs 09/12/23 insulin aspart U-100 100 unit/mL 10 unit (0.1 mL) subcut TID #30 mL 09/18/23 (3 mL) subcutaneous pen (Novolog FlexPen U-100 Insulin aspart) isosorbide mononitrate 10 mg tablet 10 mg PO BID #180 tabs 09/18/23 [id number]-hrtrfofi-chrtoxl 1 cap PO TID #270 caps 09/18/23 6,000-19,000-30,000 unit capsule,delayed rel (Creon) potassium chloride 20 mEq 20 meq PO BID #180 tabs 09/18/23 tablet,extended release (K-Tab) spironolactone 25 mg tablet 25 mg PO BID #180 tabs 09/18/23 metoprolol succinate 50 mg 50 mg PO DAILY #90 tabs 10/03/23 tablet,extended release 24 hr calcium carbonate (Tums Ultra) 400 mg PO TID #270 tabs 10/04/23 ergocalciferol (vitamin D2) 1,250 50,000 unit PO QWEEK #13 caps 10/04/23 mcg (50,000 unit) capsule nystatin 100,000 unit/gram topical 1 applic topical BID #60 grams 10/19/23 powder budesonide 160 mcg-glycopyr 9 2 inh inhalation BID #10.7 grams 11/07/23 mcg-formot 4.8 mcg/actuation HFA inhaler (Breztri Aerosphere) estradiol 0.01% (0.1 mg/gram) 1 g vaginal .twice weekly #42.5 11/14/23 vaginal cream grams B-complex with vitamin C 1 tab PO DAILY #90 tabs 11/20/23 fluconazole 150 mg tablet 150 mg PO Q3D #5 tabs 12/14/23 torsemide 100 mg tablet 50 mg (1/2 x 100 mg) PO BID #90 12/26/23 tabs levetiracetam 500 mg tablet 500 mg PO BID #180 tabs 01/15/24 (Keppra) omeprazole 40 mg capsule,delayed 40 mg PO DAILY #90 caps 01/15/24 release Allergies Allergy/AdvReac Type Severity Reaction Status Date / Time venom-honey bee Allergy Severe ANAPHYLAXIS Verified 02/13/24 16:59 adhesive Allergy BLISTERS Verified 02/13/24 16:59 General STEPHANIE: 2 Review of Systems Narrative: Per HPI Exam Narrative Exam Narrative: Const: Obese elderly female in NAD. VS per triage. HEENT: NC. Left temporal scalp laceration, 2 cm. Left parietal scalp laceration, 1 cm. Multiple facial abrasions. Neck: Trachea midline. C-collar in place. Lungs: Normal respiratory effort. Lungs are clear. Chest wall nontender. Cor: RRR without murmur. Good radial pulses. GI: Soft/ND/NT. Neuro: A+O x 3. Normal speech, mentation. Cranial nerves II - XII grossly intact. No gross motor or sensory deficit. Ext: No deformity or tenderness. Pain with range of motion left hip. Skin: Multiple abrasions on face, upper extremities. Procedures Laceration Laceration 1: Site: scalp Size (cm): 2 Description: linear (Curvilinear) and clean Depth: involves muscle layer (Down to skull, galea intact) Local Anesthetic: Lidocaine 1% and with Epi Amount of anesthesia used (mL): 2.5 Pre-repair: wound explored and irrigated extensively Skin layer closed with: nylon Size (cm): 4-0 Number of sutures: 5 Technique: simple, interrupted Laceration 2: Site: scalp Side (If applicable): left Size (cm): 1 Description: linear Depth: simple, single layer Pre-repair: irrigated extensively Skin layer closed with: other (Staple) Number of sutures: 1 Medical Decision Making Patient presenting to ED status post unresponsive event. Patient was found on the table with a laceration to the side of her head, multiple abrasions involving face and upper extremities, left hip pain, neck pain. Suspect this was seizure related and not syncope. Denies any chest pain and has baseline respiratory status. An EKG obtained on arrival does show a new left bundle branch block. There were no acute ST changes. Seizure precautions in place. CT head and cervical spine ordered. Tetanus status is current. Laboratory studies sent. X-ray of the left hip obtained due to pain with range of motion there was status post previous total hip on that side. No focal neurologic change. Laboratory studies with normal white count and hemoglobin. She has baseline kidney function with normal electrolytes. Glucose a little low. Initial troponin negative. Liver function normal. Urinalysis with trace leukocyte esterase, 10-20 white cells, few bacteria suggesting UTI. Will dose with IV ceftriaxone. Patient chronically on cephalexin for previous staph infection involving right foot and ankle. CT head negative for skull fracture or intracranial hemorrhage. CT cervical spine without acute fracture or dislocation. Collar removed and cervical spine cleared. Left hip x-ray per my read as well as preliminary radiology read negative for acute fracture or dislocation. Patient's left temporal curvilinear laceration is down to skull but galea is intact. Wound had been irrigated by accounts payable technician. After lidocaine with epinephrine further irrigated by me. Closed with 4-0 nylon. Fairly superficial left parietal scalp laceration irrigated and closed with 1 staple. Given the patient's new left bundle branch block with a unresponsive event, which is likely seizure related, discussed with hospitalist for admission for telemetry monitoring given the new EKG findings. Repeat troponin is pending. Patient should remain on seizure precautions. She has been stable while here in the ED. Medical Records Medical records reviewed: Yes I reviewed the patient's medical records. Lab Data Lab results reviewed: Yes I reviewed the patient's lab results. ECG Data Attestation: I personally reviewed and interpreted this ECG (s) as follows: Prior ECG tracings: available for review Interpretation: See EKG Quality:SDOH Health Related Social Needs: No Data to Display [facility] All Active Problems (Updated 02/13/24 @ 20:55 by Eleazar Schulz MD) Scalp laceration (Acute) Left bundle branch block (Acute) UTI (urinary tract infection) (Acute) Unresponsive episode (Acute) Posterior tibial tendon dysfunction (Acute) 02/03/16 Ankle pain (Acute 03/13/14) Numbness and tingling in left upper extremity (Acute) Hypoxia (Acute) Vaginal atrophy (Acute) Multiple falls (Acute) UTI (urinary tract infection) (Acute) Chronic hypoxic respiratory failure (Acute) Obesity (Chronic) Nocturnal hypoxia (Acute) Pulmonary hypertension (Acute) Elevated serum creatinine (Acute) Vaginal itching (Acute) Osteoarthritis of right knee (Acute) Uterine polyp (Acute) Postmenopausal bleeding (Acute) Low magnesium level (Acute) Hyperparathyroidism (Acute) Hypocalcemia (Acute) Gout (Chronic) Right knee pain (Acute) Arthropathies (Acute) Skin tear (Acute) Congestive heart failure (Chronic) Preserved ejection fraction-followed by [facility]ology at [facility] Type 2 diabetes mellitus with diabetic nephropathy (Acute) Coronary artery disease (Chronic) Chronic kidney disease, stage 4 (severe) (Acute) 12/2021, Cr-2.5 Bimalleolar ankle fracture (Acute) s/p ORIF on 10/07 Cyst of lateral meniscus of right knee (Acute) Wound abscess (Acute) Medical History Chronic obstructive lung disease Palliative care patient Fracture of proximal end of right fibula Closed trimalleolar fracture of right ankle (10/03/21) Closed avulsion fracture of condyle of right femur Tear of lateral meniscus of right knee Medial meniscus tear CHF (congestive heart failure) IDDM (insulin dependent diabetes mellitus) Myoclonic epileptic seizures Heart failure with preserved ejection fraction, borderline, class III Pancreatic atrophy DVT (deep venous thrombosis) CAD (coronary artery disease), [place] coronary artery DNR no code (do not resuscitate) Constipation Atrial flutter Gram-positive bacteremia Diabetes mellitus (09/20/10) Tarsal tunnel syndrome (06/11/13) Anemia CKD (chronic kidney disease) stage 3, GFR 30-59 ml/min Cr about 2.5 Postmenopausal bleeding neg. endometrial biopsy Menopausal syndrome 07/11/03 Hepatomegaly 06/10/04 Abnormal mammography 08/10/06 Diabetes mellitus 09/20/10 Positive Microalbumin Tarsal tunnel syndrome 06/11/13 Hyperlipidemia (08/10/00) Spinal stenosis of lumbar region (02/15/16) Smoker (06/30/16) 01/17/17 1-2 cig/wk Rotator cuff syndrome (08/01/09) Renal impairment (07/11/03) ADRENAL MASS. F/U W/ KINLAW positive microalbumin Primary osteoarthritis of left hip (09/17/15) Postoperative wound dehiscence (12/23/15) Low back pain (04/10/03) DISC HERNIATION L4. MULTILEVEL DJD/SPINAL STENOSIS BY MRI; S/P surgery Hip joint inflamed (09/03/15) Hammer toe Left/right Folate deficiency (02/15/16) Carpal tunnel syndrome (08/10/06) BILATERAL R S/P SURGERY BMI 40.0-44.9, adult (12/02/14) Vitamin D deficiency Cervical spondylosis with myelopathy Atrial fibrillation Gout Carpal tunnel syndrome Spinal stenosis of lumbar region at multiple levels Restless leg syndrome Essential hypertension Surgical History S/P ORIF (open reduction internal fixation) fracture RT ANKLE S/P CABG (coronary artery bypass graft) (01/03/19) 4 vessel CABG and [place] appendage [place] [facility] [place] History of gynecologic surgery endometrial biopsy-neg S/P carpal tunnel release H/O Spinal surgery multiple spine surgeries; low back x 2; She had multilevel DJD and spinal stenosis; disc herniation. 2009-cervical repair; C6-C7 disc; recurrent surgery. H/O arthrodesis 04/10/23 [place] [facility] [place] D/T complications from ORIF done at [facility] on 10/07/21 History of bilateral tubal ligation 09/11/80 S/P rotator cuff repair 09/11/80 History of orthopedic surgery 09/11/97 tarsal tunnel release S/P cholecystectomy 09/11/12 History of hip surgery 11/10/15 left hip arthroplasty 12/04/15-placement of wound VAC to left hip Status post incision and drainage 12/04/15 left hip surgical wound dehiscence and infection Cataract (01/07/14) FOLLOWED BY [facility] Family History Mother Diabetes Essential hypertension Personal history of malignant neoplasm KIDNEY/LIVER/BRAIN Heart disease Hyperlipidemia Stroke Asthma Father Diabetes Essential hypertension Personal history of malignant neoplasm BONE Heart disease Asthma Sister Diabetes Essential hypertension Depression Heart disease Asthma Grandfather No problems noted. Grandfather No problems noted. Grandmother Personal history of malignant neoplasm UTERINE Grandmother Diabetes Aunt Personal history of malignant neoplasm BREAST Brother Hyperlipidemia Stroke Sister Asthma Son Asthma Daughter Depression Asthma Daughter Asthma Daughter Depression Neoplasm Asthma Brother No problems noted. 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: [employer] Pets and animals: Yes Pets and animals: cat(s), dog(s) and horse(s) Current gender identity: female What is your relationship status?: Panel score (0-1 are the most socially isolated patients): 0 What type of physical activity do you participate in: none, walking and additional Details: would like to start now that it's warm Duration: 15-30 minutes/day Saniya/Pentecostalism: Buddhist Special saniya needs: No Seatbelt use: always Do you feel safe at home: Yes Do you feel safe in your relationship?: Yes Additional Social history: lives at home with family
--- NOTE | 2024-02-13 17:00 | DI.RAD_ITS ---
Exam(s) XR HIP LT COMPLETE AP PELVIS EXAM: XR HIP LT COMPLETE AP PELVIS CLINICAL HISTORY: syncope/fall/hip pain. TECHNIQUE: 2D digital imaging was performed. Four images were obtained. AP, lateral and oblique vie ws were obtained. COMPARISON: CR XR HIP LT AP LAT ONLY from 08/10/2020 FINDINGS: BONES: There are stable post operative changes of a left total hip replacement present. No fracture or dislocation. JOINTS: The orthopedic hardware is in good position. No evidence of hardware loosening. SOFT TISSUE: Normal. IMPRESSION: Stable left total hip replacement. DATA REPOSITORY: RADIATION DOSE DELIVERED:
--- NOTE | 2024-02-13 17:00 | DI.CT_ITS ---
Exam(s) CT HEAD CERVICAL SPINE WO EXAM: CT HEAD CERVICAL SPINE WO CLINICAL HISTORY: syncope/head trauma/neck pain. TECHNIQUE: Imaging Protocol: Axial computed tomography images with coronal and sagittal reformatted images were created and reviewed COMPARISON: CT CT HEAD WO from 09/25/2021 FINDINGS: CT Head: Ventricles and Extra axial spaces: Normal in size and morphology for the patient's age. Hemorrhage: None. Cerebral parenchyma: There are areas of decreased attenuation in the white matter consistent with chr onic microvascular ischemic disease. No evidence of an acute infarct is seen. Midline shift: None. Brainstem/Cerebellum: Normal. Calvarium: Normal. Visualized Paranasal sinuses/Mastoids: Clear. Soft Tissues: There is a soft tissue laceration of the left scalp overlying the left parietal bone. No radiopaque foreign body is identified. CT Cervical Spine: Bones: No acute fracture or subluxation. Age-appropriate degenerative changes are seen in the spine. Postsurgical changes are also noted in the spine anteriorly and posteriorly. Soft Tissues: Unremarkable. Lung Apices: Clear. IMPRESSION: 1. No acute intracranial process. 2. No acute fracture or subluxation in the cervical spine. RADIATION DOSE DELIVERED: 1,744.79mGy.cm Total DLP DATA REPOSITORY: All CT scans at this facility are submitted to the National Radiology Data Registry (NRDR) Dose Index Registry (DIR) with the [employer] (ACR). RADIATION OPTIMIZATION: All CT scans at this facility use at least one of these dose optimization te chniques: automated exposure control; mA and/or kV adjustment per patient size (includes targeted exa ms where dose is matched to clinical indication); or iterative reconstruction.
--- NOTE | 2024-02-13 17:13 | NUR.NOTE ---
Nursing Note: patient has 3.5cm lac to left adventist, skin tears to forehead and bridge of nose, left forearm, c/o left hip pain
[2024-02-13 17:28] LABS: Abs Immature Grans 0.06 10^3/uL (0.0-0.06); Absolute Basophil Count 0.14 10^3/uL (0.0-0.2); Absolute Eosinophil Count 0.72 10^3/uL (0.0-0.7); Absolute Lymphocyte Count 1.92 10^3/uL (1.2-3.4); Absolute Monocyte Count 0.86 10^3/uL (0.1-0.8); Absolute Neutrophil Count 6.87 10^3/uL (1.2-6.7); Basophils % 1.3 %; Eosinophils % 6.8 %; HCT 38.7 % (36.0-46.0); HGB 11.3 g/dL (11.2-15.7); Immature Grans % 0.6 %; Lymphocytes % 18.2 %; MCH 25.1 pg (27.0-33.0); MCHC 29.2 % (32.0-36.0); MCV 86 fL (80-95); MPV 9.4 fL (8.0-11.0); Monocytes % 8.1 %; Platelet Count 354 10^3/uL (130-400); RDW 16.6 % (11.7-14.6); RDW-SD 51.7 fL; WBC 10.57 10^3/uL (4.4-10.8)
[2024-02-13 17:51] LABS: ALT 28 U/L (14-59); AST 16 U/L (15-37); Albumin 3.5 g/dL (3.4-5.0); Alkaline Phosphatase 95 U/L (46-116); Anion Gap 8.9 mmol/L (3-11); BUN 45 mg/dL (7-18); Bilirubin, Total 0.4 mg/dL (0.2-1.0); CO2 30.1 mmol/L (21.0-32.0); Calcium 8.8 mg/dL (8.5-10.1); Chloride 105 mmol/L (98-107); Estimated GFR 26.22 (mL/min/1.73m2); Glucose 63 mg/dL (74-106); Magnesium 1.8 mg/dL (1.8-2.4); Potassium 4.3 mmol/L (3.5-5.1); Sodium 144 mmol/L (136-145); Total Protein 7.6 g/dL (6.4-8.2); Troponin I < 50 ng/L (< or =60)
[2024-02-13 18:32] LABS: Bilirubin Negative (Negative); Blood Negative (Negative); Clarity Clear (Clear); Glucose Negative (Negative); Ketones Negative (Negative); Leukocyte Esterase Trace (Negative); Nitrite Negative (Negative); Urobilinogen 0.2 mg/dL (Up to 0.2); pH 5.5 (5-8)
[2024-02-13 18:41] LABS: Bacteria Few HPF (Negative); C & S Indicated? Yes; Casts Negative LPF (Negative); Crystals Negative HPF (Negative); Epithelial Cells Rare HPF (Negative); Mucus Negative (Negative); RBC Negative HPF (0-2)
--- NOTE | 2024-02-13 19:12 | DI.VRAD_ITS ---
PROCEDURE INFORMATION: Exam: CT Head Without Contrast Exam date and time: 02/13/2024 6:36 PM Age: 73 years old Clinical indication: Injury or trauma; Fall; Blunt trauma (contusions or hematomas); With loss of consciousness; Not specified; Injury date: 02/12/24; Injury details: Syncope/head trauma/neck pain TECHNIQUE: Imaging protocol: Computed tomography of the head without contrast. Radiation optimization: All CT scans at this facility use at least one of these dose optimization techniques: automated exposure control; mA and/or kV adjustment per patient size (includes targeted exams where dose is matched to clinical indication); or iterative reconstruction. COMPARISON: CT HEAD WO 09/25/2021 2:19 PM FINDINGS: Brain: Normal. No hemorrhage. Unremarkable white matter. No mass effect. Cerebral ventricles: No ventriculomegaly. Paranasal sinuses: Visualized sinuses are unremarkable. No fluid levels. Mastoid air cells: Small amount of fluid in the bilateral mastoid air cells. Middle ear cavities are clear. Bones: Unremarkable. No acute fracture. Soft tissues: Unremarkable. IMPRESSION: No acute intracranial abnormality PROCEDURE INFORMATION: Exam: CT Cervical Spine Without Contrast Exam date and time: 02/13/2024 6:36 PM Age: 73 years old Clinical indication: Injury or trauma; Fall; Blunt trauma (contusions or hematomas); With loss of consciousness; Not specified; Injury date: 02/12/24; Injury details: Syncope/head trauma/neck pain TECHNIQUE: Imaging protocol: Computed tomography of the cervical spine without contrast. Radiation optimization: All CT scans at this facility use at least one of these dose optimization techniques: automated exposure control; mA and/or kV adjustment per patient size (includes targeted exams where dose is matched to clinical indication); or iterative reconstruction. COMPARISON: CT HEAD CERVICAL SPINE WO 04/15/2021 7:34 AM FINDINGS: Bones: Severe arthritic changes of the C3-C4 and T1-2 disc levels. Orthopedic hardware produces anterior and posterior fusion from the level of C4 through T1. Severe multilevel facet arthropathy with grade 1 anterolisthesis of C2. No acute fracture. Severe degenerative changes of the atlantodental joint. Uncovertebral spurring produces severe narrowing of the bilateral C4 and C5 neural foramina, more severe at C4. Lungs: Lung apices are normal. Soft tissues: Unremarkable. IMPRESSION: No acute fracture. Severe multilevel degenerative changes and old postoperative changes as described. Dictated and Authenticated by: Grayson Torres MD. Ordering:DEANN Bush MD
--- NOTE | 2024-02-13 19:50 | NUR.NOTE ---
Nursing Note: Pt given apple juice and egg salad sandwich as instructed by . Pt able to eat/drink without difficulty. We will continue to observe BG levels.
--- NOTE | 2024-02-13 19:55 | DI.VRAD_ITS ---
PROCEDURE INFORMATION: Exam: XR Left Hip Exam date and time: 02/13/2024 6:53 PM Age: 73 years old Clinical indication: Injury or trauma; Blunt trauma (contusions or hematomas); Left; Hip; Injury date: 02/12/24; Injury details: Syncope. Fall, pain; Prior surgery; Surgery date: 6+ months; Surgery type: Replacement TECHNIQUE: Imaging protocol: Radiologic exam of the left hip. Views: 2 or 3 views hip with pelvis when performed. COMPARISON: CR XR HIP LT AP LAT ONLY 08/10/2020 1:51 PM FINDINGS: Bones/joints: Previous repair left hip fracture. Surgical instrumentation in appropriate position and shows no evidence of complications. No acute fracture. No acute malalignment. Soft tissues: Unremarkable. IMPRESSION: No acute bony abnormality. Dictated and Authenticated by: Kiran Graf MD. Ordering:DEANN Bush MD
[2024-02-13] MEDS: cefTRIAXone 1 GM/50 ML BAG IVPB (20:30)
[2024-02-13 20:40] LABS: Troponin I < 50 ng/L (< or =60)
[2024-02-13] MEDS: Normal Saline Flush 10 ML SYR IVP (21:30)
--- NOTE | 2024-02-13 22:00 | RT.EKG_ITS ---
APPROVED REPORT Exam: Resting ECG Reason for Exam: st changes Patient Location: I HR:72 bpm ECG Measurements Heart Rate 72 AXIS NC 182 P 41 QRSd 161 QRS 10 QT 459 T 138 QTc 503 Conclusion Sinus rhythm...normal P axis, V-rate 50- 99 Left bundle branch block...QRSd>120, broad/notched R
--- NOTE | 2024-02-13 23:13 | HPE_ITS ---
Date of service: 02/13/24 Time of Service: 23:13 Assessment and Plan Assessment and plan (1) Unresponsive episode: Status: Acute Assessment and plan: Episode of loss of conciousness in a patient at high risk for seizures and cardiogenic syncope. The bruises on both arms and sides of her head suggest a seizure, even though we don't have a clear history of seizure activity from her partner who did not witness the fall but attended to her quickly. She has been on her keppra, levels pending. She denies other medication changes or sleep changes. CT head reassuring. Will ask for teleneurology consult to suggest changes in management. EEG if we can get it tomorrow. With h/o seizures and CKD, alternative to tramadol for pain preferred. Has increased pain since this fall/episode. Continue APAP, can try oral hydrocodone. Regarding a cardiac work up, she had a recent echocardiogram. Troponins do not suggest ACS, LBBB is not new. She will stay on cardiac monitoring. (2) Left bundle branch block: Status: Acute Assessment and plan: Concern in ED for new LBBB but this was evident on echocardiogram in November of this year. Even so, she is at high risk for cardiac syncope and will be monitored as above. (3) Chronic hypoxic respiratory failure: Status: Acute Assessment and plan: Associated with COPD. At her baseline now, continue chronic treatments. (4) Type 2 diabetes mellitus with diabetic nephropathy: Status: Acute Assessment and plan: She is well controlled, perhaps too well controlled as an outpatient with last A1c 6.6. For a patient on basal/bolus insulin with her age and comorbidities, a goal of 7-8% would be associated with a lower mortality. She states her blood sugar was 98 when checked after the episode, 63 on initial labs here. On her CGM she did dip below 60 in the afternoon around the time of her arrival to the ED, raising some concern for low sugars as a cause or contributing factor. Cut basal dose by 20% to 40 units, monitor Qualifiers: Diabetes mellitus correction insulin use: with correction use Qualified Code(s): E11.21 - Type 2 diabetes mellitus with diabetic nephropathy; Z79.4 - detention (current) use of insulin (5) Coronary artery disease: Status: Chronic Assessment and plan: continue outpatient medications including atorvastatin, apixaban. Qualifiers: Coronary Disease-Associated Artery/Lesion type: northway artery [place] vs. transplanted heart: northway heart Associated angina: without angina Qualified Code(s): I25.10 - Atherosclerotic heart disease of northway coronary artery without angina pectoris (6) Chronic kidney disease, stage 4 (severe): Status: Acute Assessment and plan: Cr at her baseline around 2. Continue to monitor (7) Congestive heart failure: Status: Chronic Assessment and plan: Clinically euvolemic currently. No change in outpatient medication including diuretics Qualifiers: Heart failure type: diastolic Heart failure chronicity: chronic Qualified Code(s): I50.32 - Chronic diastolic (congestive) heart failure (8) DVT prophylaxis: Status: Acute Assessment and plan: Patient has a history of Aflutter and DVT and is on low dose apixaban, will continue History of Present Illness History of Present Illness Chief Complaint: loss of conciousness Narrative: 73 yo F with history of seizure disorder, CAD s/p CABG, COPD on home O2, paroxysmal atrial fibrillation/flutter and h/o DVT on apixaban, type 2 DM on insulin chronic MSK pain on tramadol who presents after an unresponsie episode on the afternoon of admission. She was in her baseline state of health this afternoon. Around 4 PM she was sitting on a stool in her kitchen. She thinks she tried to stand up to starting working on supper, and the next thing she remembers she was on her hands and feet trying to get up and blood was gushing from her head. Per EMS she was found under the table with a head laceration. She states her partner Ayaan was in the same room (a studio apartment) but not looking at her and did not see her fall. She has no recollection about what happened but thinks she was out a few minutes. She was not told that she was shaking like she was having a seizure. She was a little confused and lightheaded when she came out of it, but feels normal now other than achy in her body and with a diffuse headache. She did not experience chest pain or palpitations or change in shortness of breath before or after the event. She has been using her keppra regularly. She has not changed her insulin, but she has noticed some lows into the 50s on her CGM recently. She takes her tramadol a few times a week. Review of Systems All systems reviewed & are unremarkable except as noted in HPI and below Constitutional Constitutional: Reports weight loss (100lbs over 3 years with diet changes) Eyes Eyes: Denies loss of vision ENT Ears, Nose, Mouth, and Throat: Denies vertigo Cardiovascular Cardiovascular: Denies chest pain with activity, Denies edema and Denies palpitations Respiratory Respiratory: Denies cough, Denies hemoptysis and Denies wheezing Comments: doesn't use CPAP/BiPAP, using oxygen Musculoskeletal Musculoskeletal: Denies abnormal gait Neurologic Neurologic: Denies abnormal speech, Denies abnormal gait, Denies behavioral changes, Denies vertigo, Denies localized weakness, Denies loss of vision, Denies sensory deficit and Denies tremor(s) Psychiatric Psychiatric: Denies behavioral changes and Denies mood swings Endocrine Endocrine: Denies palpitations Allergic/Immunologic Allergic/Immunologic: Denies wheezing PFSH All Active Problems (Updated 02/14/24 @ 00:45 by Wade Trotter) DVT prophylaxis (Acute) Scalp laceration (Acute) Left bundle branch block (Acute) UTI (urinary tract infection) (Acute) Unresponsive episode (Acute) Posterior tibial tendon dysfunction (Acute) 02/03/16 Ankle pain (Acute 03/13/14) Numbness and tingling in left upper extremity (Acute) Hypoxia (Acute) Vaginal atrophy (Acute) Multiple falls (Acute) UTI (urinary tract infection) (Acute) Chronic hypoxic respiratory failure (Acute) Obesity (Chronic) Nocturnal hypoxia (Acute) Pulmonary hypertension (Acute) Elevated serum creatinine (Acute) Vaginal itching (Acute) Osteoarthritis of right knee (Acute) Uterine polyp (Acute) Postmenopausal bleeding (Acute) Low magnesium level (Acute) Hyperparathyroidism (Acute) Hypocalcemia (Acute) Gout (Chronic) Right knee pain (Acute) Arthropathies (Acute) Skin tear (Acute) Congestive heart failure (Chronic) Preserved ejection fraction-followed by cardiology at [facility] Type 2 diabetes mellitus with diabetic nephropathy (Acute) Coronary artery disease (Chronic) Chronic kidney disease, stage 4 (severe) (Acute) 12/2021, Cr-2.5 Bimalleolar ankle fracture (Acute) s/p ORIF on 10/07 Cyst of lateral meniscus of right knee (Acute) Wound abscess (Acute) Medical History Chronic obstructive lung disease Palliative care patient Fracture of proximal end of right fibula Closed trimalleolar fracture of right ankle (10/03/21) Closed avulsion fracture of condyle of right femur Tear of lateral meniscus of right knee Medial meniscus tear CHF (congestive heart failure) IDDM (insulin dependent diabetes mellitus) Myoclonic epileptic seizures Heart failure with preserved ejection fraction, borderline, class III Pancreatic atrophy DVT (deep venous thrombosis) CAD (coronary artery disease), northway coronary artery DNR no code (do not resuscitate) Constipation Atrial flutter Gram-positive bacteremia Diabetes mellitus (09/20/10) Tarsal tunnel syndrome (06/11/13) Anemia CKD (chronic kidney disease) stage 3, GFR 30-59 ml/min Cr about 2.5 Postmenopausal bleeding neg. endometrial biopsy Menopausal syndrome 07/11/03 Hepatomegaly 06/10/04 Abnormal mammography 08/10/06 Diabetes mellitus 09/20/10 Positive Microalbumin Tarsal tunnel syndrome 06/11/13 Hyperlipidemia (08/10/00) Spinal stenosis of lumbar region (02/15/16) Smoker (06/30/16) 01/17/17 1-2 cig/wk Rotator cuff syndrome (08/01/09) Renal impairment (07/11/03) ADRENAL MASS. F/U W/ KINLAW positive microalbumin Primary osteoarthritis of left hip (09/17/15) Postoperative wound dehiscence (12/23/15) Low back pain (04/10/03) DISC HERNIATION L4. MULTILEVEL DJD/SPINAL STENOSIS BY MRI; S/P surgery Hip joint inflamed (09/03/15) Hammer toe Left/right Folate deficiency (02/15/16) Carpal tunnel syndrome (08/10/06) BILATERAL R S/P SURGERY BMI 40.0-44.9, adult (12/02/14) Vitamin D deficiency Cervical spondylosis with myelopathy Atrial fibrillation Gout Carpal tunnel syndrome Spinal stenosis of lumbar region at multiple levels Restless leg syndrome Essential hypertension Surgical History S/P ORIF (open reduction internal fixation) fracture RT ANKLE S/P CABG (coronary artery bypass graft) (01/03/19) 4 vessel CABG and LA appendage excision, Dr. Nav Wang, [facility] [place], [place], [place] History of gynecologic surgery endometrial biopsy-neg S/P carpal tunnel release H/O Spinal surgery multiple spine surgeries; low back x 2; She had multilevel DJD and spinal stenosis; disc herniation. 2009-cervical repair; C6-C7 disc; recurrent surgery. H/O arthrodesis 04/10/23 s/p RT ankle arthodesis at [facility] [place]- External Fixator placed D/T complications from ORIF done at [facility] on 10/07/21 History of bilateral tubal ligation 09/11/80 S/P rotator cuff repair 09/11/80 History of orthopedic surgery 09/11/97 tarsal tunnel release S/P cholecystectomy 09/11/12 History of hip surgery 11/10/15 left hip arthroplasty 12/04/15-placement of wound VAC to left hip Status post incision and drainage 12/04/15 left hip surgical wound dehiscence and infection Cataract (01/07/14) FOLLOWED BY OPTICAL EXPRESSIONS Family History Mother Diabetes Essential hypertension Personal history of malignant neoplasm KIDNEY/LIVER/BRAIN Heart disease Hyperlipidemia Stroke Asthma Father Diabetes Essential hypertension Personal history of malignant neoplasm BONE Heart disease Asthma Sister Diabetes Essential hypertension Depression Heart disease Asthma Grandfather No problems noted. Grandfather No problems noted. Grandmother Personal history of malignant neoplasm UTERINE Grandmother Diabetes Aunt Personal history of malignant neoplasm BREAST Brother Hyperlipidemia Stroke Sister Asthma Son Asthma Daughter Depression Asthma Daughter Asthma Daughter Depression Neoplasm Asthma Brother No problems noted. 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: [employer] Pets and animals: Yes Pets and animals: cat(s), dog(s) and horse(s) Current gender identity: female What is your relationship status?: Panel score (0-1 are the most socially isolated patients): 0 What type of physical activity do you participate in: none, walking and additional Details: would like to start now that it's warm Duration: 15-30 minutes/day Saniya/Taoist: Episcopal Special saniya needs: No Seatbelt use: always Do you feel safe at home: Yes Do you feel safe in your relationship?: Yes Additional Social history: lives at home with family Meds Allergies and Home Medications Allergies Allergy/AdvReac Type Severity Reaction Status Date / Time venom-honey bee Allergy Severe ANAPHYLAXIS Verified 02/13/24 16:59 adhesive Allergy BLISTERS Verified 02/13/24 16:59 Home Medications Medication Instructions Recorded Confirmed Type lancets 33 gauge (OneTouch Delica #100 ea 12/18/18 02/13/24 Rx Lancets) lancets 25 gauge #100 ea 01/29/19 02/13/24 Rx albuterol sulfate 2.5 mg/3 mL 2.5 mg (3 mL) inhalation Q2H PRN 09/10/20 02/13/24 Rx (0.083 %) solution for nebulization PRN shortness of breath or wheezing #180 mL pen needle, diabetic 31 gauge x #450 ea 12/10/20 02/13/24 Rx 1/4 (1st Tier Unifine Pentips) epinephrine 0.3 mg/0.3 mL 0.3 mg (0.3 mL) IM ONCE #2 ea 02/04/21 02/13/24 Rx injection, auto-injector (EpiPen 2-Erick) blood sugar diagnostic (Blood #300 ea 04/08/21 02/13/24 Rx Glucose Test strips) acetaminophen 500 mg tablet 1,000 mg PO BID 11/15/22 02/13/24 History (Tylenol Extra Strength) insulin glargine 100 unit/mL (3 50 unit (0.5 mL) subcut DAILY #60 03/23/23 02/13/24 Rx mL) subcutaneous pen (Basaglar mL KwikPen U-100 Insulin) lidocaine 4 % topical patch 1 patch topical DAILY PRN 05/12/23 02/13/24 History meclizine 12.5 mg tablet 12.5 mg PO TID PRN 05/12/23 02/13/24 History sitagliptin phosphate 25 mg tablet 25 mg PO DAILY 05/12/23 02/13/24 History methocarbamol 500 mg tablet 500 mg PO TID PRN muscle spasm #90 06/05/23 02/13/24 Rx tabs atorvastatin 40 mg tablet 40 mg PO DAILY #90 tab-caps 06/09/23 02/13/24 Rx cholecalciferol (vitamin D3) 25 25 mcg PO DAILY #90 caps 07/07/23 02/13/24 Rx mcg (1,000 unit) capsule apixaban 2.5 mg tablet (Eliquis) 2.5 mg PO BID #180 tabs 07/31/23 02/13/24 Rx fesoterodine 8 mg tablet,extended 8 mg PO DAILY #90 tabs 08/08/23 02/13/24 Rx release 24 hr duloxetine 60 mg capsule,delayed 60 mg PO DAILY #90 tab-caps 08/30/23 02/13/24 Rx release magnesium chloride 71.5 mg 71.5 mg PO TID #270 tabs 08/30/23 02/13/24 Rx (magnesium chloride) tablet,delayed release (Slow-Mag) ropinirole 2 mg tablet 2 mg PO QPM PRN restless leg(s) 08/30/23 02/13/24 Rx #90 tabs tramadol 50 mg tablet 50 mg PO BID PRN pain #60 tabs 09/12/23 02/13/24 Rx insulin aspart U-100 100 unit/mL 10 unit (0.1 mL) subcut TID #30 mL 09/18/23 02/13/24 Rx (3 mL) subcutaneous pen (Novolog FlexPen U-100 Insulin aspart) isosorbide mononitrate 10 mg tablet 10 mg PO BID #180 tabs 09/18/23 02/13/24 Rx ahvrup-tjvhfxkh-pqjztjb 1 cap PO TID #270 caps 09/18/23 02/13/24 Rx 6,000-19,000-30,000 unit capsule,delayed rel (Creon) potassium chloride 20 mEq 20 meq PO BID #180 tabs 09/18/23 02/13/24 Rx tablet,extended release (K-Tab) spironolactone 25 mg tablet 25 mg PO BID #180 tabs 09/18/23 02/13/24 Rx metoprolol succinate 50 mg 50 mg PO DAILY #90 tabs 10/03/23 02/13/24 Rx tablet,extended release 24 hr calcium carbonate (Tums Ultra) 400 mg PO TID #270 tabs 10/04/23 02/13/24 Rx ergocalciferol (vitamin D2) 1,250 50,000 unit PO QWEEK #13 caps 10/04/23 02/13/24 Rx mcg (50,000 unit) capsule nystatin 100,000 unit/gram topical 1 applic topical BID #60 grams 10/19/23 02/13/24 Rx powder budesonide 160 mcg-glycopyr 9 2 inh inhalation BID #10.7 grams 11/07/23 02/13/24 Rx mcg-formot 4.8 mcg/actuation HFA inhaler (Breztri Aerosphere) estradiol 0.01% (0.1 mg/gram) 1 g vaginal .twice weekly #42.5 11/14/23 02/13/24 Rx vaginal cream grams B-complex with vitamin C 1 tab PO DAILY #90 tabs 11/20/23 02/13/24 Rx torsemide 100 mg tablet 50 mg (1/2 x 100 mg) PO BID #90 12/26/23 02/13/24 Rx tabs levetiracetam 500 mg tablet 500 mg PO BID #180 tabs 01/15/24 02/13/24 Rx (Keppra) omeprazole 40 mg capsule,delayed 40 mg PO DAILY #90 caps 01/15/24 02/13/24 Rx release allopurinol 100 mg tablet 100 mg PO QHS 02/13/24 02/13/24 History calcitriol 0.25 mcg capsule 0.25 mcg PO TID hypocalcemia 02/13/24 02/13/24 History cephalexin 500 mg capsule 500 mg PO TID osteomyelitis 02/13/24 02/13/24 History ondansetron 4 mg disintegrating 4 mg translingual Q8H PRN Nausea/ 02/13/24 02/13/24 History tablet vomiting Exam Narrative Exam Narrative: GEN: Alert and oriented x 4, pleasant and cooperative, gives linear history. No acute distress at rest. HEENT: Head with ~10cm closed laceration left protestant. Bruises/excorations on both sides of forehead. Conjunctiva clear, no icterus. PEERL, EOMI. no rhinorrhea. MMM, OP benign. Neck is supple with no pain with ROM, no masses or lymphadenopathy, trachea midline LUNGS: CTAB with normal effort CV: RRR with no murmurs, gallops, or rubs. ABD: +BS, soft, NT/ND EXT: no cyanosis, clubbing, or pitting edema. MSK: No joint redness or swelling. Right ankle thicker than left. Knees tender but no deformity NEURO: CN 2-12 grossly intact. Normal movement of 4 extremities. Nl sensation to light touch 4 ext. DTRs symmetric. Normal speech and coordination SKIN: No rashes, bruises on bilateral forearms and upper arms. . PSYCH: normal mood and affect, normal thought process Results Imaging EKG: report reviewed and image reviewed (NSR rate 72, nl axis, LBBB (not present 01/10/22, but evident on echocardiogram 11/20/23) Imaging Studies: CT head w/o: No acute intracranial abnormality XR left hip: no acute nat abnormality Labs 02/13/24 16:58 02/13/24 16:58 Labs: Laboratory Results - last 24 hr 02/13/24 02/13/24 02/13/24 16:58 18:20 20:15 WBC 10.57 RBC 4.50 Hgb 11.3 Hct 38.7 MCV 86 MCH 25.1 L MCHC 29.2 L RDW 16.6 H Plt Count 354 MPV 9.4 Immature Gran % 0.6 Neutrophils % 65.0 Lymphocytes % 18.2 Monocytes % 8.1 Eosinophils % 6.8 Basophils % 1.3 Nucleated RBC % 0.0 Absolute Neutrophils 6.87 H Absolute Lymphocytes 1.92 Absolute Monocytes 0.86 H Absolute Eosinophils 0.72 H Absolute Basophils 0.14 Sodium 144 Potassium 4.3 Chloride 105 Carbon Dioxide 30.1 Anion Gap 8.9 BUN 45 H Creatinine 2.0 H Est GFR (CKD-EPI 2020) 26.22 Glucose 63 L Calcium 8.8 Magnesium 1.8 Total Bilirubin 0.4 AST 16 ALT 28 Alkaline Phosphatase 95 Troponin I < 50 < 50 Total Protein 7.6 Albumin 3.5 Urine Color Yellow Urine Clarity Clear Urine pH 5.5 Ur Specific [place] 1.010 Urine Protein Negative Urine Ketones Negative Urine Blood Negative Urine Nitrite Negative Urine Bilirubin Negative Urine Urobilinogen 0.2 Ur Leukocyte Esterase Trace H Urine RBC Negative Urine WBC 10-20 H Ur Epithelial Cells Rare Urine Crystals Negative Urine Bacteria Few Urine Casts Negative Urine Mucus Negative Ur Culture Indicated? Yes Urine Glucose Negative Last Vital Signs Temp 36.2 C L 02/13/24 21:58 Pulse 76 02/13/24 21:58 Resp 18 02/13/24 21:58 BP 146/90 H 02/13/24 21:58 Pulse Ox 99 02/13/24 21:58 Time Spent Time spent with Patient: 55-74 minutes Time was spent: preparing to see the patient(eg.review tests), obtaining and/or reviewing separately otained hiistory, ordering medications,tests, procedures, referring, communicating with other health skin care therapist, indepentently interpreting results and counseling the patient
[2024-02-13] MEDS: Acetaminophen 325 MG TAB PO (23:36)
[2024-02-13] MEDS: traMADol 50 MG TAB PO (23:37)
[2024-02-13] MEDS: rOPINIRole 1 MG TAB 2 MG PO (23:37)
[2024-02-14] VITALS (9 sets, daily range): BP systolic 76–120; BP diastolic 53–65; PULSE 66–236; RESP 17–18; TEMP 36.7–37.1; O2SAT 91–98
[2024-02-14] MEDS: HYDROcodone 5/Acetaminophen 325 TAB PO ×3 (01:32→11:24)
--- NOTE | 2024-02-14 06:02 | NUR.NOTE ---
Nursing Note: Pt hematomas on forehead appear larger. Marked borders. Outward swelling does not exceed 0.5 in at this time and appears similar, while horizontal swelling appears to have spread.
[2024-02-14 07:49] LABS: Creatine Kinase 254 U/L (26-192)
[2024-02-14] MEDS: Metoprolol CR 50 MG TABCR PO (08:28)
[2024-02-14] MEDS: Potassium Chloride 20 MEQ TABCR PO ×2 (08:28→21:14)
[2024-02-14] MEDS: Vitamins B Comp w/C TAB 1 TAB PO (08:28)
[2024-02-14] MEDS: Omeprazole 20 MG CAPCR 40 MG PO (08:28)
[2024-02-14] MEDS: Creon, Lipase 6,000 CAPCR 1 CAP PO ×3 (08:28→17:10)
[2024-02-14] MEDS: levETIRAcetam 500 MG TAB PO (08:28)
[2024-02-14] MEDS: Apixaban 2.5 MG TAB PO ×2 (08:28→21:13)
[2024-02-14] MEDS: Cholecalciferol (Vitamin D3) 1,000 UNIT TAB 1000 UNITS PO (08:28)
[2024-02-14] MEDS: Calcium Carbonate *TUMS* 500 MG CHEW 1000 MG PO ×3 (08:28→17:10)
[2024-02-14] MEDS: Magnesium Chloride 64 MG TABCR PO ×3 (08:28→21:12)
[2024-02-14] MEDS: Calcitriol 0.25 MCG CAP PO ×3 (08:29→21:13)
[2024-02-14] MEDS: DULoxetine 30 MG CAP 60 MG PO (08:29)
[2024-02-14] MEDS: Isosorbide Mononitrate 10 MG TAB PO ×2 (08:29→14:30)
[2024-02-14] MEDS: Cephalexin 500 MG CAP PO ×3 (08:29→21:14)
[2024-02-14] MEDS: Lidocaine 5% Patch 2 PATCH TP (08:30)
[2024-02-14] MEDS: Insulin Aspart 300 UNITS/3 ML PEN 10 UNITS SC ×2 (08:30→17:11)
[2024-02-14] MEDS: Insulin Glargine 300 UNITS/3 ML PEN 40 UNITS SC (08:32)
[2024-02-14] MEDS: Torsemide 100 MG TAB 50 MG PO (08:35)
[2024-02-14] MEDS: Nystatin POWDER 15 GM JAR TP ×2 (08:35→21:14)
[2024-02-14] MEDS: Spironolactone 25 MG TAB PO (08:35)
--- NOTE | 2024-02-14 08:56 | PDOC.CMIN ---
Date of service: 02/14/24 Time of Service: 08:56 Care Management Initial Assmt Initial Assessment Reason for Hospitalization: Unresponsive episode, fall, scalp laceration Functional Status/Living Situation Patient Presentation: Bibi was sitting in a recliner when CM met with her. Pt is awake, talkative and easily engages in conversation for the purpose of this interview. Town of Residence: [place] Resides with: Spouse (Significant other Ayaan) Significant Other/Family: Local Natural Supports: Local: Daughter's Savannah and Melony and Sister Sandy Son lives in [place] Employment Status: Retired (2019) Instrumental Activities of Daily Living (ADLs): Independent Medications Medication Management: No Issues/Barriers identified Physical Functioning/Mobility Assistive Device: Lives in a handicapped accessible appartment Bedside Commode Raised Toilet Seat Grab bars shower chair wheelchair Walker Advance Directives Advance Directives: Do you have an Advance Directive: Y 10/18/21 08:27 AD On File at [facility]: Y 10/18/21 08:27 Date Asked 08/20/23 08/20/23 21:09 AD Date Reviewed 02/13/24 02/13/24 21:16 COLST On File at [facility] Yes 10/18/21 08:27 COLST Date Scanned 01/15/19 10/18/21 08:27 Comment: Palliative Care Patient Code Status Resuscitation Status DNR/DNI Portal Pt does not currently have a portal and education provided: Yes Insurance Coverage/Financial Issues Insurance: [employer] Medicaid ACO Member: No Financial Issues: None identified Care Team Visit Care Team Role Provider Type Laisha Mcmahon MD, [place] Primary Care Provider [facility] Hazel Cherry Other Providers REG OCCUPATIONAL THERAPIST InPatient Yunior Jennings Other Providers OTHER Eleazar Schulz MD Emergency Provider [facility] STAFF PHYSICIAN Wade Trotter Admit Provider [facility] STAFF PHYSICIAN Attending Provider Discharge Potential Discharge Needs: Consult Consult Services Needed: Other (Teleneuro, Wound Care), PT Evaluation (PT/OT) and PCP F/U Appt Anticipated Barriers to Discharge: None Identified Patient/Family Education Needs: Review discharge instructions, discuss Ask Me Three Transportation: Private vehicle Plan: Anticipate, Bibi will discharge home via private vehicle with her S/O when medically ready. Follow up with community providers and [facility] services, if indicated. CM following. PFSH All Active Problems (Updated 02/14/24 @ 13:46 by Marshal Guillaume MD) Orthostatic hypotension (Acute) DVT prophylaxis (Acute) Scalp laceration (Acute) Left bundle branch block (Acute) UTI (urinary tract infection) (Acute) Unresponsive episode (Acute) Posterior tibial tendon dysfunction (Acute) 02/03/16 Ankle pain (Acute 03/13/14) Numbness and tingling in left upper extremity (Acute) Hypoxia (Acute) Vaginal atrophy (Acute) Multiple falls (Acute) UTI (urinary tract infection) (Acute) Chronic hypoxic respiratory failure (Acute) Obesity (Chronic) Nocturnal hypoxia (Acute) Pulmonary hypertension (Acute) Elevated serum creatinine (Acute) Vaginal itching (Acute) Osteoarthritis of right knee (Acute) Uterine polyp (Acute) Postmenopausal bleeding (Acute) Low magnesium level (Acute) Hyperparathyroidism (Acute) Hypocalcemia (Acute) Gout (Chronic) Right knee pain (Acute) Arthropathies (Acute) Skin tear (Acute) Congestive heart failure (Chronic) Preserved ejection fraction-followed by cardiology at [facility] Type 2 diabetes mellitus with diabetic nephropathy (Acute) Coronary artery disease (Chronic) Chronic kidney disease, stage 4 (severe) (Acute) 12/2021, Cr-2.5 Bimalleolar ankle fracture (Acute) s/p ORIF on 10/07 Cyst of lateral meniscus of right knee (Acute) Wound abscess (Acute) Medical History Chronic obstructive lung disease Palliative care patient Fracture of proximal end of right fibula Closed trimalleolar fracture of right ankle (10/03/21) Closed avulsion fracture of condyle of right femur Tear of lateral meniscus of right knee Medial meniscus tear CHF (congestive heart failure) IDDM (insulin dependent diabetes mellitus) Myoclonic epileptic seizures Heart failure with preserved ejection fraction, borderline, class III Pancreatic atrophy DVT (deep venous thrombosis) CAD (coronary artery disease), [place] coronary artery DNR no code (do not resuscitate) Constipation Atrial flutter Gram-positive bacteremia Diabetes mellitus (09/20/10) Tarsal tunnel syndrome (06/11/13) Anemia CKD (chronic kidney disease) stage 3, GFR 30-59 ml/min Cr about 2.5 Postmenopausal bleeding neg. endometrial biopsy Menopausal syndrome 07/11/03 Hepatomegaly 06/10/04 Abnormal mammography 08/10/06 Diabetes mellitus 09/20/10 Positive Microalbumin Tarsal tunnel syndrome 06/11/13 Hyperlipidemia (08/10/00) Spinal stenosis of lumbar region (02/15/16) Smoker (06/30/16) 01/17/17 1-2 cig/wk Rotator cuff syndrome (08/01/09) Renal impairment (07/11/03) ADRENAL MASS. F/U W/ KINLAW positive microalbumin Primary osteoarthritis of left hip (09/17/15) Postoperative wound dehiscence (12/23/15) Low back pain (04/10/03) DISC HERNIATION L4. MULTILEVEL DJD/SPINAL STENOSIS BY MRI; S/P surgery Hip joint inflamed (09/03/15) Hammer toe Left/right Folate deficiency (02/15/16) Carpal tunnel syndrome (08/10/06) BILATERAL R S/P SURGERY BMI 40.0-44.9, adult (12/02/14) Vitamin D deficiency Cervical spondylosis with myelopathy Atrial fibrillation Gout Carpal tunnel syndrome Spinal stenosis of lumbar region at multiple levels Restless leg syndrome Essential hypertension Surgical History S/P ORIF (open reduction internal fixation) fracture RT ANKLE S/P CABG (coronary artery bypass graft) (01/03/19) 4 vessel CABG and LA appendage excision, Dr. Nav Wang, [facility] [place], [place], [place] History of gynecologic surgery endometrial biopsy-neg S/P carpal tunnel release H/O Spinal surgery multiple spine surgeries; low back x 2; She had multilevel DJD and spinal stenosis; disc herniation. 2008-cervical repair; C6-C7 disc; recurrent surgery. H/O arthrodesis 04/10/23 s/p RT ankle arthodesis at [facility] [place]- External Fixator placed D/T complications from ORIF done at [facility] on 10/07/21 History of bilateral tubal ligation 09/11/80 S/P rotator cuff repair 09/11/80 History of orthopedic surgery 09/11/97 tarsal tunnel release S/P cholecystectomy 09/11/12 History of hip surgery 11/10/15 left hip arthroplasty 12/04/15-placement of wound VAC to left hip Status post incision and drainage 12/04/15 left hip surgical wound dehiscence and infection Cataract (01/07/14) FOLLOWED BY OPTICAL EXPRESSIONS Family History Mother Diabetes Essential hypertension Personal history of malignant neoplasm KIDNEY/LIVER/BRAIN Heart disease Hyperlipidemia Stroke Asthma Father Diabetes Essential hypertension Personal history of malignant neoplasm BONE Heart disease Asthma Sister Diabetes Essential hypertension Depression Heart disease Asthma Grandfather No problems noted. Grandfather No problems noted. Grandmother Personal history of malignant neoplasm UTERINE Grandmother Diabetes Aunt Personal history of malignant neoplasm BREAST Brother Hyperlipidemia Stroke Sister Asthma Son Asthma Daughter Depression Asthma Daughter Asthma Daughter Depression Neoplasm Asthma Brother No problems noted. 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 Pets and animals: Yes Pets and animals: cat(s), dog(s) and horse(s) Current gender identity: female What is your relationship status?: Panel score (0-1 are the most socially isolated patients): 0 What type of physical activity do you participate in: none, walking and additional Details: would like to start now that it's warm Duration: 15-30 minutes/day Saniya/Worship: Spiritism Special saniya needs: No Seatbelt use: always Do you feel safe at home: Yes Do you feel safe in your relationship?: Yes Additional Social history: lives at home with family SDOH(Care Management) Screening Will the Patient Participate in the Screening?: Yes Do you worry about having a steady place to live?: no Problems where you live: no known problems In the past 12 months, have you had to go without electric, gas, oil or water in your home?: no Have you or anyone in your house had to go without enough food to eat?: no Has lack of transportation kept you from medical appointments or from doing things needed for daily living?: no Has anyone in your support network made you feel unsafe for any reason?: no Anticipated HH Services Anticipated HH Services at Discharge [facility] (May need RN, PT) Services Needed, PT and RN. Anticipated Date of Discharge: 02/15/24. Following Provider: PCP Laisha Mcmahon.
--- NOTE | 2024-02-14 10:33 | W.PM.PROGNOT ---
Date of Service Date of service: 02/14/24 Time of Service: 10:33 Assessment and Plan Assessment and plan (1) Unresponsive episode: Status: Acute Assessment and plan: -Episode of loss of conciousness in a patient at high risk for seizures and cardiogenic syncope. -The bruises on both arms and sides of her head suggest a seizure, even though we don't have a clear history of seizure activity from her partner who did not witness the fall but attended to her quickly. -She has been on her keppra, levels pending; denies other medication changes or sleep changes. -CT head reassuring. -teleneuro consult complete, apprecaite recs: -increase keppra from 500mg to 750mg -no need for inpatient EEG -continue to monitor tele, orthostatics and blood glucose levels -had a recent echocardiogram, Troponins negative, and LBBB is NOT new (2) Orthostatic hypotension: Status: Acute Assessment and plan: -patient had positive orthostatics this afternoon with associated dizziness when standing -BP laying 100/57, 76/56 standing -will hold PM torsemide and recheck orthostatics tomorrow and adjust torsemide dose as needed (3) Left bundle branch block: Status: Acute Assessment and plan: -Concern in ED for new LBBB but this was evident on echocardiogram in November of this year (4) Chronic hypoxic respiratory failure: Status: Acute Assessment and plan: -Associated with COPD. -at baseline 2L NC (5) Type 2 diabetes mellitus with diabetic nephropathy: Status: Acute Assessment and plan: -well controlled, last A1c 6.6. -however, goal should be 7-8% -patient states her blood sugar was 98 when checked after the episode, 63 on initial labs here. -On her CGM she did dip below 60 in the afternoon around the time of her arrival to the ED, raising some concern for low sugars as a cause or contributing factor. 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 Qualifiers: Associated angina: without angina Coronary Disease-Associated Artery/Lesion type: [place] artery [place] vs. transplanted heart: [place] heart Qualified Code(s): I25.10 - Atherosclerotic heart disease of [place] coronary artery without angina pectoris (7) Chronic kidney disease, stage 4 (severe): Status: Acute Assessment and plan: -Cr at her baseline around 2. Continue to monitor (8) Congestive heart failure: Status: Chronic Assessment and plan: -Clinically euvolemic currently. No change in outpatient medication including diuretics Qualifiers: Heart failure chronicity: chronic Heart failure type: diastolic Qualified Code(s): I50.32 - Chronic diastolic (congestive) heart failure (9) DVT prophylaxis: Status: Acute Assessment and plan: -Patient has a history of Aflutter and DVT and is on low dose apixaban, will continue Subjective Subjective Interval history since last seen: Patient states that she is feeling much better today. However, she does acknowledge that she felt somewhat lightheaded and dizzy when checking orthostatics earlier today which were positive. She has agreed to stay an additional night while we hold her diuretic and continue to monitor her orthostatics as well as her blood sugar levels. Exam Narrative Exam Narrative: Well-appearing older obese female laying in bed in no acute distress, ANO x 4, multiple bruises along both sides of forehead with roughly 10 cm close laceration of the left restorationist, heart regular rate rhythm, lungs clear to auscultation bilaterally, abdomen soft, nontender, nondistended, cranial nerves II through XII intact, normal strength and sensation in bilateral upper and lower extremities Objective Last Vital Signs Temp 98.1 F 02/14/24 07:24 Pulse 66 02/14/24 07:24 Resp 17 02/14/24 07:24 BP 108/53 L 02/14/24 07:24 Pulse Ox 98 02/14/24 07:24 Laboratory Results - last 24 hr 02/13/24 02/13/24 02/13/24 16:58 18:20 20:15 WBC 10.57 RBC 4.50 Hgb 11.3 Hct 38.7 MCV 86 MCH 25.1 L MCHC 29.2 L RDW 16.6 H Plt Count 354 MPV 9.4 Immature Gran % 0.6 Neutrophils % 65.0 Lymphocytes % 18.2 Monocytes % 8.1 Eosinophils % 6.8 Basophils % 1.3 Nucleated RBC % 0.0 Absolute Neutrophils 6.87 H Absolute Lymphocytes 1.92 Absolute Monocytes 0.86 H Absolute Eosinophils 0.72 H Absolute Basophils 0.14 Sodium 144 Potassium 4.3 Chloride 105 Carbon Dioxide 30.1 Anion Gap 8.9 BUN 45 H Creatinine 2.0 H Est GFR (CKD-EPI 2020) 26.22 Glucose 63 L Calcium 8.8 Magnesium 1.8 Total Bilirubin 0.4 AST 16 ALT 28 Alkaline Phosphatase 95 Creatine Kinase Troponin I < 50 < 50 Total Protein 7.6 Albumin 3.5 Urine Color Yellow Urine Clarity Clear Urine pH 5.5 Ur Specific [place] 1.010 Urine Protein Negative Urine Ketones Negative Urine Blood Negative Urine Nitrite Negative Urine Bilirubin Negative Urine Urobilinogen 0.2 Ur Leukocyte Esterase Trace H Urine RBC Negative Urine WBC 10-20 H Ur Epithelial Cells Rare Urine Crystals Negative Urine Bacteria Few Urine Casts Negative Urine Mucus Negative Ur Culture Indicated? Yes Urine Glucose Negative 02/14/24 07:02 WBC RBC Hgb Hct MCV MCH MCHC RDW Plt Count MPV Immature Gran % Neutrophils % Lymphocytes % Monocytes % Eosinophils % Basophils % Nucleated RBC % Absolute Neutrophils Absolute Lymphocytes Absolute Monocytes Absolute Eosinophils Absolute Basophils Sodium Potassium Chloride Carbon Dioxide Anion Gap BUN Creatinine Est GFR (CKD-EPI 2020) Glucose Calcium Magnesium Total Bilirubin AST ALT Alkaline Phosphatase Creatine Kinase 254 H Troponin I Total Protein Albumin Urine Color Urine Clarity Urine pH Ur Specific [place] Urine Protein Urine Ketones Urine Blood Urine Nitrite Urine Bilirubin Urine Urobilinogen Ur Leukocyte Esterase Urine RBC Urine WBC Ur Epithelial Cells Urine Crystals Urine Bacteria Urine Casts Urine Mucus Ur Culture Indicated? Urine Glucose Time Spent with Patient Time Spent with Patient: >50 minutes Time was spent: preparing to see the patient(eg.review tests), obtaining and/or reviewing separately otained hiistory, ordering medications,tests, procedures, referring, communicating with other health direct care staffer, indepentently interpreting results, counseling the patient and care coordination
--- NOTE | 2024-02-14 10:43 | RESPIRATORY ---
Patient wears 2.5L O2 at night and with ambulation. DME: [facility]
--- NOTE | 2024-02-14 11:28 | PHA.REVIEW2 ---
Pharmacy Admission Review Admission Clinical Review Admission Pharmacy Review: DVT prophylaxis (Acute) Scalp laceration (Acute) Left bundle branch block (Acute) UTI (urinary tract infection) (Acute) Unresponsive episode (Acute) Chronic hypoxic respiratory failure (Acute) Type 2 diabetes mellitus with diabetic nephropathy (Acute) Chronic kidney disease, stage 4 (severe) (Acute) venom-honey bee Allergy (Severe, Verified 02/13/24 16:59) ANAPHYLAXIS adhesive Allergy (Verified 02/13/24 16:59) BLISTERS Resuscitation Status DNR/DNI Height 5 ft 9 in Weight 115.212 kg Pharmacy Admission Review Renal Dosing Renal Dosing: BUN 45 mg/dL (7-18) H 02/13/24 16:58 Creatinine 2.0 mg/dL (0.55-1.02) H 02/13/24 16:58 Medications needing adjustments: Reviewed (CrCl 34.95 mL/min) List of meds needing interventions: Current medications are okay Anticoagulation Anticoagulation: Hgb 11.3 g/dL (11.2-15.7) 02/13/24 16:58 Hct 38.7 % (36.0-46.0) 02/13/24 16:58 Plt Count 354 10^3/uL (130-400) 02/13/24 16:58 Creatinine 2.0 mg/dL (0.55-1.02) H 02/13/24 16:58 DVT Prophylaxis: Reviewed Medications: Apixaban (2.5mg PO BID) Opiate Usage Evaluate Pain Scale/Pains Meds: Reviewed (PRN Vicodin - has received 3 doses so far) Scheduled Bowel Reg ordered if on Opiates?: No Relevant Labs Relevant Labs: Sodium 144 mmol/L (136-145) 02/13/24 16:58 Potassium 4.3 mmol/L (3.5-5.1) 02/13/24 16:58 Chloride 105 mmol/L (98-107) 02/13/24 16:58 Magnesium 1.8 mg/dL (1.8-2.4) 02/13/24 16:58 Electrolytes, C-Reactive P, ESR: Reviewed (No new labs for today) DM Control DM Control: Glucose 63 mg/dL (74-106) L 02/13/24 16:58 Finger Stick Blood Glucose 65 1125 Finger Stick Blood Glucose 65 1125 Finger Stick Blood Glucose 114 0832 Finger Stick Blood Glucose 114 0830 Finger Stick Blood Glucose 114 0829 Finger Stick Blood Glucose 114 0726 Finger Stick Blood Glucose 114 0726 Finger Stick Blood Glucose 133 0411 Finger Stick Blood Glucose 133 0411 DM Control: Reviewed Insulin Dosing, Diabetic Medication: Has order for 10 units of aspart with meals, SS insulin, 40 units daily of glargine and Jardiance Cardiac Review Cardiac Review: Troponin I < 50 ng/L (< or =60) 02/13/24 20:15 BP, HR, EF%: Reviewed (BP/HR WNL, Ox 91) QTc Review QTc: Reviewed (513 from 02/13/24) IV to PO Switch IV Medications: Reviewed Home Meds Home Med List reviewed: Intervened Relevent Home Meds Not ordered & why?: Epipen (PRN), meclizine (PRN), methocarbamol (PRN), ondansetron (PRN) and tramadol (on hold per H+P) Januvia was on patients med list and ordered. Looking at fill history patient actually takes Jardiance (last filled 01/22/24). Reached out to provider. Corrected home med list and changed order to Jardiance. Provider aware. Called nursing to see if 3 home meds could be brought in, per nursing patient is trying to get those brought in. Also confirmed that patient uses the estradiol cream on Mondays and . Order was updated. Current Meds Current Medication Order Review: Reviewed Comments: Keppra increased from 500mg BID to 750mg BID. Blood level pending.
--- NOTE | 2024-02-14 13:03 | NUR.NOTE ---
Nursing Note: Orthostatic vital signs were obtained as directed by Dr. Guillaume and were positive. Patient complained of feeling lightheaded upon standing. Dr. Guillaume was notified.
--- NOTE | 2024-02-14 14:00 | DI.CT_ITS ---
Exam(s) CT HEAD WO EXAM: CT HEAD WO CLINICAL HISTORY: hit head, on anticoagulation, f/u rec by Neuro. TECHNIQUE: Imaging Protocol: Axial computed tomography images with coronal and sagittal reformatted images were created and reviewed COMPARISON: CT CT HEAD WO from 09/25/[address] HEAD CERVICAL SPINE WO from 02/13/2024 FINDINGS: Ventricles and Extra axial spaces: Normal in size and morphology for the patient's age. Hemorrhage: None. Cerebral parenchyma: There are areas of decreased attenuation in the white matter consistent with chr onic microvascular ischemic disease. This has a similar appearance compared to the examination from 09/25/2021. No new areas of decreased attenuation are seen to suggest an acute infarct. No mass effe ct is identified. Midline shift: None. Brainstem/Cerebellum: Normal. Calvarium: Normal. Visualized Paranasal sinuses/Mastoids: Clear. Soft Tissues: There is a left parietal scalp laceration with a skin staple present. Subcutaneous air is seen overlying the left parietal bone. IMPRESSION: 1. No acute intracranial process. 2. Left parietal scalp laceration. RADIATION DOSE DELIVERED: 757.03mGy.cm Total DLP DATA REPOSITORY: All CT scans at this facility are submitted to the National Radiology Data Registry (NRDR) Dose Index Registry (DIR) with the [employer] (ACR). RADIATION OPTIMIZATION: All CT scans at this facility use at least one of these dose optimization te chniques: automated exposure control; mA and/or kV adjustment per patient size (includes targeted exa ms where dose is matched to clinical indication); or iterative reconstruction.
[2024-02-14] MEDS: oxyCODONE 5 MG TAB PO (14:29)
--- NOTE | 2024-02-14 16:00 | IN_ITS ---
PT Notes Visit Reasons: unresponsive event;LBBB,scalp laceration,uti Physical Therapy Inpatient Initial Evaluation Date: 02/14/2024 Referring Doctor: Wade Trotter MD PT Orders: PT CONSULT: Safety Consult for D/C. Fall Safety assessment Precautions: WBAT on B LE using FWW. Repeated falls. Standard precautions in place. At risk for seizures. Activity as tolerated. Patient Profile/Admitting Diagnosis: Megan is a 73-year-old female palliative care patient with multiple medical co-morbidities and past medical history significant for seizures, and multiple spine surgeries who was admitted for management of unresponsive episode, left BBB, chronic hypoxic respiratory failure, type II DM, CAD, CKD, and CHF. PMHX: All Active Problems (Updated 02/14/24 @ 00:45 by Wade Trotter) DVT prophylaxis (Acute) Scalp laceration (Acute) Left bundle branch block (Acute) UTI (urinary tract infection) (Acute) Unresponsive episode (Acute) Posterior tibial tendon dysfunction (Acute) 02/03/16 Ankle pain (Acute 03/13/14) Numbness and tingling in left upper extremity (Acute) Hypoxia (Acute) Vaginal atrophy (Acute) Multiple falls (Acute) UTI (urinary tract infection) (Acute) Chronic hypoxic respiratory failure (Acute) Obesity (Chronic) Nocturnal hypoxia (Acute) Pulmonary hypertension (Acute) Elevated serum creatinine (Acute) Vaginal itching (Acute) Osteoarthritis of right knee (Acute) Uterine polyp (Acute) Postmenopausal bleeding (Acute) Low magnesium level (Acute) Hyperparathyroidism (Acute) Hypocalcemia (Acute) Gout (Chronic) Right knee pain (Acute) Arthropathies (Acute) Skin tear (Acute) Congestive heart failure (Chronic) Preserved ejection fraction-followed by cardiology at [facility] Type 2 diabetes mellitus with diabetic nephropathy (Acute) Coronary artery disease (Chronic) Chronic kidney disease, stage 4 (severe) (Acute) 12/2021, Cr-2.5 Bimalleolar ankle fracture (Acute) s/p ORIF on 10/07 Cyst of lateral meniscus of right knee (Acute) Wound abscess (Acute) Medical History Chronic obstructive lung disease Palliative care patient Fracture of proximal end of right fibula Closed trimalleolar fracture of right ankle (10/03/21) Closed avulsion fracture of condyle of right femur Tear of lateral meniscus of right knee Medial meniscus tear CHF (congestive heart failure) IDDM (insulin dependent diabetes mellitus) Myoclonic epileptic seizures Heart failure with preserved ejection fraction, borderline, class III Pancreatic atrophy DVT (deep venous thrombosis) CAD (coronary artery disease), [place] coronary artery DNR no code (do not resuscitate) Constipation Atrial flutter Gram-positive bacteremia Diabetes mellitus (09/20/10) Tarsal tunnel syndrome (06/11/13) Anemia CKD (chronic kidney disease) stage 3, GFR 30-59 ml/min Cr about 2.5 Postmenopausal bleeding neg. endometrial biopsy Menopausal syndrome 07/11/03 Hepatomegaly 06/10/04 Abnormal mammography 08/10/06 Diabetes mellitus 09/20/10 Positive Microalbumin Tarsal tunnel syndrome 06/11/13 Hyperlipidemia (08/10/00) Spinal stenosis of lumbar region (02/15/16) Smoker (06/30/16) 01/17/17 1-2 cig/wk Rotator cuff syndrome (08/01/09) Renal impairment (07/11/03) ADRENAL MASS. F/U W/ KINLAW positive microalbumin Primary osteoarthritis of left hip (09/17/15) Postoperative wound dehiscence (12/23/15) Low back pain (04/10/03) DISC HERNIATION L4. MULTILEVEL DJD/SPINAL STENOSIS BY MRI; S/P surgery Hip joint inflamed (09/03/15) Hammer toe Left/right Folate deficiency (02/15/16) Carpal tunnel syndrome (08/10/06) BILATERAL R S/P SURGERY BMI 40.0-44.9, adult (12/02/14) Vitamin D deficiency Cervical spondylosis with myelopathy Atrial fibrillation Gout Carpal tunnel syndrome Spinal stenosis of lumbar region at multiple levels Restless leg syndrome Essential hypertension Surgical History S/P ORIF (open reduction internal fixation) fracture RT ANKLE S/P CABG (coronary artery bypass graft) (01/03/19) 4 vessel CABG and LA appendage excision, Dr. Nav Wang, [facility], [place] History of gynecologic surgery endometrial biopsy-neg S/P carpal tunnel release H/O Spinal surgery multiple spine surgeries; low back x 2; She had multilevel DJD and spinal stenosis; disc herniation. 2009-cervical repair; C6-C7 disc; recurrent surgery. H/O arthrodesis 04/10/23 s/p RT ankle arthodesis at [facility]- External Fixator placed D/T complications from ORIF done at [facility] on 10/07/21 History of bilateral tubal ligation 09/11/80 S/P rotator cuff repair 09/11/80 History of orthopedic surgery 09/11/97 tarsal tunnel release S/P cholecystectomy 09/11/12 History of hip surgery 11/10/15 left hip arthroplasty 12/04/15-placement of wound VAC to left hip Status post incision and drainage 12/04/15 left hip surgical wound dehiscence and infection Cataract (01/07/14) FOLLOWED BY [employer] Social History/Home Situation: Independent with all mobility ADLs using the four-wheeled walker. Has had repeated falls the past month. Equipment Owned/DME: FWW, 4WW Subjective: Hopeful she can get her prednisone while here. Headache when turns head to R. Chronic back pain limiting movement. Knee and ankle pain slowed down walking pace and distance. Added her right ankle pain has been bothering her, has a follow up with [facility] scheduled. Objective: General Observation: Seated on chair. High BMI. Pain patch on low back. Mental Status: Alert and oriented as to person, place, time, and purpose. Pain: 7-8/10 in low back and R ankle with weight bearing ROM: Right Upper Extremity: Shoulder Flexion WFL. Shoulder abduction WFL. Elbow flexion WFL. Wrist flexion WFL. Functional opening and closing of hand WFL. Left Upper Extremity: Shoulder Flexion WFL. Shoulder abduction WFL. Elbow flexion WFL. Wrist flexion WFL. Functional opening and closing of hand WFL. Right Lower Extremity: Hip flexion about 50% of active ROM. Hip abduction less than 50% of active ROM. Knee flexion WFL. Knee extension -10 degrees. Ankle dorsiflexion to neutral only. Ankle plantarflexion limited. Left Lower Extremity: Hip flexion about 50% of active ROM:. Hip abduction less than 50% of active ROM. Knee flexion WFL. Knee extension -10 degrees. Ankle dorsiflexion to neutral only. Ankle plantarflexion about 10 [] cueing provided for use of B hands as needed for support, movement sequence, AD management, and posture to reduce fall risk and minimize pain report degrees. Strength: Right Upper Extremity: Shoulder flexors 4/5. Shoulder abductors 4/5. Elbow flexors 4/5. Elbow extensors 4/5. 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 Left Upper Extremity: Shoulder flexors 4/5. Shoulder abductors 4/5. Elbow flexors 4/5. Elbow extensors 4/5. 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 Right Lower Extremity: Hip flexors 3-/5. Hip abductors 3-/5. Knee flexors 3-/5. Knee extensors 3-/5. Ankle dorsiflexors 2-/5. Ankle plantarflexors 2-/5. Left Lower Extremity: Hip flexors 3-/5. Hip abductors 3-/5. Knee flexors 3-/5. Knee extensors 3-/5. Ankle dorsiflexors 3-/5. Ankle plantarflexors 3-/5. Bed Mobility/Transfers: Minimal cueing provided for use of B hands as needed for support, movement sequence, AD management, and posture to reduce fall risk and minimize pain report Sit to stand contact guard assist Stand to sit contact guard assist facilitated safe and correct performance of level surface ambulation covering a distance of Gait: 100 feet using step to gait pattern requiring minimal verbal cueing for safe gait pattern, AD management, and posture to minimize pain report and reduce fall risk, wheelchair follow provided for safety. Contact-guard assist given. Contact-guard assist given. Pain in right foot . Decreased DF in B LE. [place] slow. Denied increase in headache, chest pain, and lightheadedness. Needed use of oxygen supplementation after walking activity due to shortness of breath. Balance: Sitting static:Normal Sitting dynamic: Good Standing static: Fair Standing dynamic: Fair Special Tests: Mobility Limitations Standardized Measure [facility] AM-PAC 6 clicks Basic Mobility Inpatient Short Form: Raw Score: 19 CMS Score: 42% deficit Informed Consent/Education: Patient was instructed in purpose of PT consult and plan of care. Agreeable to proceed with established PT POC to achieve personal goals. Assessment: Patient presents with clinical signs and symptoms consistent with current/admitting diagnoses that have resulted to mobility limitations, gait instability, generalized weakness, and overall ADL decline as demonstrated by the following impairment level findings: 1. Decreased strength to B UE/LE 2. Impaired activity tolerance 3. Limitation of joint range of motion in B LE joints 4. Pain in R ankle and foot at 5-6/10 5. Shortness of breath Impairments are contributing to the following functional limitations: 1. Decline in bed mobility skills 2. Decline in transfer skills 3. Unable to ambulate 4. Increased completion time for mobility ADL performance 5. Increased risk for falls 6. Inability to thrive at home Patient is assessed as a 73217 moderate complexity based on the following: History: 70-year-old female with past medical history as indicated above Examination: Demonstrable impairment in strength, balance, and mobility level with underlying impairments and functional limitations as exhibited above as well as deficit score of 42% utilizing the [facility] Mobility Inpatient Short Form Presentation: Unstable Decision Makin moderate complexity Goals: Goals X1 week 1. Patient will demonstrate 100% mastery of open chain exercises to increase B UE and LE strength in anticipation of WB progression after two weeks. 2. Patient will demonstrate modified independent with use of bariatric FWW for all transfer task performance to reduce fall risk. Plan of Care/Treatment Plan: 1x/day, 3 days/week x 2 weeks. Plan of care has been reviewed with the THREAD INSPECTOR providing the service under Physical Therapy direction. Initiate Physical Therapy intervention for pain management as needed, strengthening, bed mobility, transfers, gait, stairs, balance training, and use of assistive device. DISCHARGE RECOMMENDATIONS: [] Home with no services [] [X] Home with services. Patient will benefit from home health PT services in order to progress mobility level using least restrictive assistive ambulatory device, assess home safety, identify additional equipment needs, and establish a functional maintenance program that will increase ability of patient to remain at home. [] Home with outpatient PT [] [] SNF for continued rehabilitation [] Systems Analyst Engineer Care [] [] SNF versus LTC based on ability to participate and progress [] TREATMENT CODE/TIME: 07413 x 20 minutes for 1 unit, 9753 0 x 15 minutes for 1 unit (16:00-16:35). Thank you for the opportunity to participate in the care of this patient. Kathryn Sainz PT, DPT, CLT [facility] [place], [place]
--- NOTE | 2024-02-14 16:08 | CHAPLAIN ---
Bibi and I know each other from previous admissions. She told me right way that she hasn't been here for more than two years for respiratory issues, but she had her ankle operated on, then it became infected and she had more surgery as [facility] and had a lot of exterior pins and supports in it for six months. Bibi recently moved to [place] with Ayaan and really likes her new apartment which is handicapped accessible. She fell, and doesn't know why, struck her head and was bleeding a great deal so Ayaan called the ambulance. She received stitches and stables. Before the fall, she said she was doing well, and enjoying her new apartment and new dog.
[2024-02-14] MEDS: Insulin Aspart 300 UNITS/3 ML PEN SC (17:11)
[2024-02-14] MEDS: levETIRAcetam 500 MG TAB 750 MG PO (21:12)
[2024-02-14] MEDS: Acetaminophen 325 MG TAB PO (21:13)
[2024-02-14] MEDS: rOPINIRole 1 MG TAB 2 MG PO (21:13)
[2024-02-14] MEDS: Allopurinol 100 MG TAB PO (21:14)
[2024-02-14] MEDS: Atorvastatin 40 MG TAB PO (21:14)
[2024-02-14] MEDS: Patch Removal 2 EACH TD (21:42)
[2024-02-15 03:17] VITALS: BP 144/60; PULSE 67; RESP 18; TEMP 36.7; O2SAT 96
[2024-02-15] MEDS: Acetaminophen 325 MG TAB PO (03:30)
[2024-02-15 06:43] LABS: HGB 10.4 g/dL (11.2-15.7); MCH 25.5 pg (27.0-33.0); MCHC 29.7 % (32.0-36.0); MCV 86 fL (80-95); MPV 9.8 fL (8.0-11.0); Platelet Count 316 10^3/uL (130-400); RBC 4.08 10^6/uL (3.93-5.22); RDW 16.7 % (11.7-14.6); RDW-SD 52.2 fL; WBC 10.85 10^3/uL (4.4-10.8)
[2024-02-15 07:16] LABS: Anion Gap 7.8 mmol/L (3-11); BUN 50 mg/dL (7-18); CO2 30.2 mmol/L (21.0-32.0); CREATININE 2.2 mg/dL (0.55-1.02); Calcium 9.2 mg/dL (8.5-10.1); Chloride 105 mmol/L (98-107); Estimated GFR 23.38 (mL/min/1.73m2); Glucose 126 mg/dL (74-106); Potassium 4.6 mmol/L (3.5-5.1); Sodium 143 mmol/L (136-145)
[2024-02-15 07:57] VITALS: BP 110/81; PULSE 72; RESP 20; TEMP 36.6; O2SAT 94
[2024-02-15] MEDS: Lidocaine 5% Patch 2 PATCH TP (08:45)
[2024-02-15] MEDS: Insulin Glargine 300 UNITS/3 ML PEN 40 UNITS SC (08:46)
[2024-02-15] MEDS: Nystatin POWDER 15 GM JAR TP (08:46)
[2024-02-15] MEDS: Cholecalciferol (Vitamin D3) 1,000 UNIT TAB 1000 UNITS PO (08:47)
[2024-02-15] MEDS: Spironolactone 25 MG TAB PO (08:47)
[2024-02-15] MEDS: Omeprazole 20 MG CAPCR 40 MG PO (08:47)
[2024-02-15] MEDS: Isosorbide Mononitrate 10 MG TAB PO (08:47)
[2024-02-15] MEDS: Metoprolol CR 50 MG TABCR PO (08:47)
[2024-02-15] MEDS: DULoxetine 30 MG CAP 60 MG PO (08:47)
[2024-02-15] MEDS: Potassium Chloride 20 MEQ TABCR PO (08:48)
[2024-02-15] MEDS: Creon, Lipase 6,000 CAPCR 1 CAP PO (08:48)
[2024-02-15] MEDS: Cephalexin 500 MG CAP PO (08:48)
[2024-02-15] MEDS: Vitamins B Comp w/C TAB 1 TAB PO (08:48)
[2024-02-15] MEDS: Empaglifozin 25 MG TAB PO (08:48)
[2024-02-15] MEDS: Apixaban 2.5 MG TAB PO (08:48)
[2024-02-15] MEDS: levETIRAcetam 500 MG TAB 750 MG PO (08:48)
[2024-02-15] MEDS: Calcium Carbonate *TUMS* 500 MG CHEW 1000 MG PO (08:48)
[2024-02-15] MEDS: Magnesium Chloride 64 MG TABCR PO (08:48)
[2024-02-15] MEDS: Calcitriol 0.25 MCG CAP PO (08:49)
[2024-02-15 08:53] VITALS: BP 124/60; BP 127/57; PULSE 77; PULSE 78
--- NOTE | 2024-02-15 09:11 | OT.INIE ---
Occupational Therapy Notes Inpatient Occupational Therapy Evaluation Date: 02/15/24 Referring Doctor: Wade Trotter OT Orders: Urgent Precautions: Fall, Standard, DNR/DNI PATIENT PROFILE/ADMITTING DIAGNOSIS: Pt is a 73 year old female who states that she fell while at home hitting her head causing a laceration to the scalp. She is admitted to [facility] with the following dx of orthostatic hypertension, scalp laceration, (L) bundle branch block, UTI, Unresponsive episode, Posterior tibial tendons dysfunction. Past Medical History: All Active Problems (Updated 02/13/24 @ 20:55 by Eleazar Schulz MD) Scalp laceration (Acute) Left bundle branch block (Acute) UTI (urinary tract infection) (Acute) Unresponsive episode (Acute) Posterior tibial tendon dysfunction (Acute) 02/03/16Ankle pain (Acute 03/13/14) Numbness and tingling in left upper extremity (Acute) Hypoxia (Acute) Vaginal atrophy (Acute) Multiple falls (Acute) UTI (urinary tract infection) (Acute) Chronic hypoxic respiratory failure (Acute) Obesity (Chronic) Nocturnal hypoxia (Acute) Pulmonary hypertension (Acute) Elevated serum creatinine (Acute) Vaginal itching (Acute) Osteoarthritis of right knee (Acute) Uterine polyp (Acute) Postmenopausal bleeding (Acute) Low magnesium level (Acute) Hyperparathyroidism (Acute) Hypocalcemia (Acute) Gout (Chronic) Right knee pain (Acute) Arthropathies (Acute) Skin tear (Acute) Congestive heart failure (Chronic) Preserved ejection fraction-followed by cardiology at [facility] 2 diabetes mellitus with diabetic nephropathy (Acute) Coronary artery disease (Chronic) Chronic kidney disease, stage 4 (severe) (Acute) 12/2021, Cr-2.5Bimalleolar ankle fracture (Acute) s/p ORIF on 10/07Cyst of lateral meniscus of right knee (Acute) Wound abscess (Acute) Medical History Chronic obstructive lung disease Palliative care patient Fracture of proximal end of right fibula Closed trimalleolar fracture of right ankle (10/03/21) Closed avulsion fracture of condyle of right femur Tear of lateral meniscus of right knee Medial meniscus tear CHF (congestive heart failure) IDDM (insulin dependent diabetes mellitus) Myoclonic epileptic seizures Heart failure with preserved ejection fraction, borderline, class III Pancreatic atrophy DVT (deep venous thrombosis) CAD (coronary artery disease), [place] coronary artery DNR no code (do not resuscitate) Constipation Atrial flutter Gram-positive bacteremia Diabetes mellitus (09/20/10) Tarsal tunnel syndrome (06/11/13) Anemia CKD (chronic kidney disease) stage 3, GFR 30-59 ml/min Cr about 2.5Postmenopausal bleeding neg. endometrial biopsyMenopausal syndrome 07/11/03Hepatomegaly 06/10/04Abnormal mammography 08/10/06Diabetes mellitus 09/20/10 Positive MicroalbuminTarsal tunnel syndrome 06/11/13Hyperlipidemia (08/10/00) Spinal stenosis of lumbar region (02/15/16) Smoker (06/30/16) 01/17/17 1-2 cig/wk Rotator cuff syndrome (08/01/09) Renal impairment (07/11/03) ADRENAL MASS. F/U W/ KINLAW positive microalbumin Primary osteoarthritis of left hip (09/17/15) Postoperative wound dehiscence (12/23/15) Low back pain (04/10/03) DISC HERNIATION L4. MULTILEVEL DJD/SPINAL STENOSIS BY MRI; S/P surgery Hip joint inflamed (09/03/15) Hammer toe Left/right Folate deficiency (02/15/16) Carpal tunnel syndrome (08/10/06) BILATERAL R S/P SURGERY BMI 40.0-44.9, adult (12/02/14) Vitamin D deficiency Cervical spondylosis with myelopathy Atrial fibrillation Gout Carpal tunnel syndrome Spinal stenosis of lumbar region at multiple levels Restless leg syndrome Essential hypertension Surgical History S/P ORIF (open reduction internal fixation) fracture RT ANKLES/P CABG (coronary artery bypass graft) (01/03/19) 4 vessel CABG and LA appendage excision, Dr. Nav Wang, [facility], [place], [place]History of gynecologic surgery endometrial biopsy-negS/P carpal tunnel release H/O Spinal surgery multiple spine surgeries; low back x 2; She had multilevel DJD and spinal stenosis; disc herniation. 2008-cervical repair; C6-C7 disc; recurrent surgery.H/O arthrodesis 04/10/23 s/p RT ankle arthodesis at [facility]- External Fixator placed D/T complications from ORIF done at [facility] on 10/07/21History of bilateral tubal ligation 09/11/80S/P rotator cuff repair 09/11/80History of orthopedic surgery 09/11/97 tarsal tunnel releaseS/P cholecystectomy 09/11/12History of hip surgery 11/10/15 left hip arthroplasty 12/04/15-placement of wound VAC to left hipStatus post incision and drainage 12/04/15 left hip surgical wound dehiscence and infectionCataract (01/07/14) FOLLOWED BY [employer] Social History/Home Situation: Pt states that she lives [place] in an apartment. She notes that she is (I) at her baseline level of function but has had some difficulty over the past couple days. She notes that she has a daughter who she is close with and states that she is able to perform her ADL/IADL routines with increased (I). SUBJECTIVE: Pt states that she is doing well, she notes that she would like to be able to shower but has to hold d/t her head laceration. OBJECTIVE: General Observation: Pleasant, IV in (L) UE, laceration to scalp Mental Status: A&Ox4 ROM: RUE AROM WFL L UE AROM WFL STRENGTH: RUE 4/5 throughout globally with strong ict support engineer LUE 4/5 throughout globally with strong ict support engineer FUNCTIONAL MOBILITY/ADLS: Transfers Supine-sit (I) Sit-supine (I) Sit-Stand (S) Stand-sit (S) BATHING seated with max (A) Set up Bathing UE (I) face, (B) UE and abdomen Bathing LE AROM WFL to be able to perform. May require leg bent and up position to avoid extra positional changes for LE DRESSING seated Dressing UE NT Dressing LE Min (A) don and doffing socks, max (A) donning BOUBACAR stockings TOILETING On commode (I) EATING (I) with no chewing or swallowing issues BALANCE: Static sitting Normal Dynamic Sitting Normal Static Standing Good Dynamic Standing Good SPECIAL TESTS: Daily Activity Limitations Standardized Measure [facility] AM -PAC ?6 clicks? Daily Activity Inpatient Short Form: Raw score: 23 Standardized score: 51.12 CMS score: 15.86% INFORMED CONSENT/EDUCATION: Pt instructed in purpose of OT Consult and plan of care. ASSESSMENT: Patient is a 73-year-old female referred to occupational therapy services with diagnosis of orthostatic hypertension, scalp laceration, (L) bundle branch block, UTI, Unresponsive episode, Posterior tibial tendons dysfunction. . Patient presents with clinical signs and symptoms consistent with dx, as demonstrated by the following impairment level findings/functional limitations: Decreased functional mobility, decreased functional activity tolerance, pain in (R) foot and head d/t laceration. AMPAC score 23 Patient is assessed as a Low 57704 complexity based on the following: History: see above Examination: see functional limitations as noted above Presentation: evolving Decision Making: AMPAC score 23 GOALS seen for OT consult only with goal to transition home today when medcally cleared per MD. PLAN OF CARE/TREATMENT PLAN: Discharge home with services. DISCHARGE RECOMMENDATIONS Discharge from skilled OT services pending discharge home when medically cleared per MD. TREATMENT TIME/MINUTES/CODES 08841, [id number] KERVIN Garc[facility] [place], [place]
--- NOTE | 2024-02-15 09:42 | PDOC.HHF2F_ITS ---
Home Health Referral Home Health Orders Clinical synopsis of why skilled professionals are needed: IDDM, Seizure disorder, hypoglycemia, orthostatic hypotension, chronic ostemyelitis, chronic hypoxic respiratory failure Registered Nurse: Check all that apply Instruct on new or changed medication(s)/assess compliance: Ordered Physical Therapist: Check all that apply Increase strength & endurance for safe mobility at home: Ordered To design/establish home maintenance program: Ordered Fall reduction therapy program for patient with history of frequent falls: Ordered Home safety evaluation and teaching/gait training including stair management (if applicable): Ordered Encounter Date and Reason: I certify that a FTF encounter for this patient was performed on February 15, 2024 and that such encounter was related to the primary reason the patient requires home health services. The encounter was conducted in the following manner: * By me as the certifying physician, INSPECTION MANAGER, PA or * By an inpatient physician, INSPECTION MANAGER or PA during an inpatient stay who communicated findings to me, Certification And Authentication I certify that I composed the above information based on my clinical judgment relating to this patient's medical condition and, if applicable, clinical findings communicated to me by the NPP or inpatient physician who performed the FTF encounter. Name of Provider that will be monitoring home health services: Laisha Mcmahon
--- NOTE | 2024-02-15 09:43 | W.PM.DS.N ---
Date of service: 02/15/24 Time of Service: 09:43 DS: Diagnosis Discharge Diagnosis (1) Unresponsive episode: Status: Acute Asessment and Plan: Patient initially presented after having an unwitnessed fall/syncopal episode resulting and bruising across top of forehead and temporal laceration which was repaired in the emergency department. Differential for episode included arrhythmia, seizure, hypoglycemia or orthostatic hypotension. Patient did not experience or remember any symptoms prior to the episode, therefore was difficult to pin down exact cause. However, patient did have teleneuro consultation and and given seizure history they did recommend increasing her Keppra dose to 750 mg. She did not have any signs of arrhythmia on telemetry, but she was noted as being having positive orthostasis on 02/14/2024 which improved after holding her afternoon dose of torsemide. Additionally, patient also had some periods of hypoglycemia, which may be a contributing factor given the patient's hemoglobin A1c was noted to be 6. Since admission her basal insulin was decreased by 20%. It is recommended going forward that the patient work with her PCP and decrease her insulin regimen as somewhat of her age and comorbid conditions should have an A1c between 7 and 8%. It was also recommended that she cut her torsemide dose in half. Otherwise it was determined that the patient was stable for discharge home. (2) Orthostatic hypotension: Status: Acute Asessment and Plan: -improved after holding PM toresemide -patient being discharged with instructions to only take AM dose of torsemide (3) Left bundle branch block: Status: Acute (4) Chronic hypoxic respiratory failure: Status: Acute Asessment and Plan: -remained on home 2L NC (5) Type 2 diabetes mellitus with diabetic nephropathy: Status: Acute Asessment and Plan: -as noted above -rec discussion with PCP regarding decreasing insulin use given episodes of mild hypoglycemia and low A1c (6) Coronary artery disease: Status: Chronic (7) Chronic kidney disease, stage 4 (severe): Status: Acute (8) Congestive heart failure: Status: Chronic (9) DVT prophylaxis: Status: Acute Discharge Plan Disposition Patient Disposition: Home W/Home Health Services Condition: Good Discharge Details Reason For Visit: unresponsive event;LBBB,scalp laceration,uti Admit Date/Time: 02/14/24 12:44 Admit Provider: Wade Trotter Attending Provider: Wade Trotter Primary Care Provider: Laisha Mcmahon [facility] Course Hospital Course: Patient initially presented after having an unwitnessed fall/syncopal episode resulting and bruising across top of forehead and temporal laceration which was repaired in the emergency department. Differential for episode included arrhythmia, seizure, hypoglycemia or orthostatic hypotension. Patient did not experience or remember any symptoms prior to the episode, therefore was difficult to pin down exact cause. However, patient did have teleneuro consultation and and given seizure history they did recommend increasing her Keppra dose to 750 mg. She did not have any signs of arrhythmia on telemetry, but she was noted as being having positive orthostasis on 02/14/2024 which improved after holding her afternoon dose of torsemide. Additionally, patient also had some periods of hypoglycemia, which may be a contributing factor given the patient's hemoglobin A1c was noted to be 6. Since admission her basal insulin was decreased by 20%. It is recommended going forward that the patient work with her PCP and decrease her insulin regimen as somewhat of her age and comorbid conditions should have an A1c between 7 and 8%. It was also recommended that she cut her torsemide dose in half. Otherwise it was determined that the patient was stable for discharge home. Home Meds and New Rx's Prescriptions: New levetiracetam 500 mg Tablet 750 mg PO BID Qty: 90 0RF Continued albuterol sulfate 2.5 mg /3 mL (0.083 %) solution for nebulization 2.5 mg INHALATION Q2H PRN PRN (Reason: shortness of breath or wheezing) Qty: 180 4RF epinephrine [EpiPen 2-Erick] 0.3 mg/0.3 mL auto-injector 0.3 mg IM ONCE Qty: 2 10RF metoprolol succinate 50 mg tablet extended release 24 hr 50 mg PO DAILY Qty: 90 6RF acetaminophen [Tylenol Extra Strength] 500 mg tablet 1,000 mg PO BID methocarbamol 500 mg tablet 500 mg PO TID PRN (Reason: muscle spasm) Qty: 90 1RF Breztri Aerosphere 160-9-4.8 mcg/actuation HFA aerosol inhaler 2 inh inhalation BID Qty: 10.7 12RF lidocaine 4 % adhesive patch,medicated 1 patch topical DAILY PRN meclizine 12.5 mg tablet 12.5 mg PO TID PRN atorvastatin 40 mg tablet 40 mg PO DAILY Qty: 90 6RF cholecalciferol (vitamin D3) 25 mcg (1,000 unit) capsule 25 mcg PO DAILY Qty: 90 4RF Eliquis 2.5 mg tablet 2.5 mg PO BID Qty: 180 4RF fesoterodine 8 mg tablet extended release 24 hr 8 mg PO DAILY Qty: 90 4RF Rx Instructions: this is the med her ins co said had no copay ropinirole 2 mg tablet 2 mg PO QPM PRN (Reason: restless leg(s)) Qty: 90 5RF Rx Instructions: duloxetine 60 mg capsule,delayed release(DR/EC) 60 mg PO DAILY Qty: 90 12RF Slow-Mag 71.5 mg tablet,delayed release (DR/EC) 71.5 mg PO TID Qty: 270 4RF tramadol 50 mg tablet 50 mg PO BID MDD 100 PRN (Reason: pain) Qty: 60 3RF insulin aspart U-100 [Novolog FlexPen U-100 Insulin] 100 unit/mL (3 mL) insulin pen 10 unit SC TID Qty: 30 5RF Hold Instructions: Home Medication placed on hold at Doctor's office isosorbide mononitrate 10 mg tablet 10 mg PO BID Qty: 180 5RF Rx Instructions: give doses 7 hrs apart Creon 6,000-19,000 -30,000 unit capsule,delayed release(DR/EC) 1 cap PO TID Qty: 270 5RF spironolactone 25 mg tablet 25 mg PO BID Qty: 180 4RF calcium carbonate [Tums Ultra] 400 mg calcium (1,000 mg) tablet,chewable 400 mg PO TID Qty: 270 4RF Rx Instructions: for low blood calcium ergocalciferol (vitamin D2) 1,250 mcg (50,000 unit) capsule 50,000 unit PO QWEEK Qty: 13 4RF nystatin 100,000 unit/gram powder 1 applic topical BID Qty: 60 3RF estradiol 0.01 % (0.1 mg/gram) cream 1 g vaginal .twice weekly Qty: 42.5 5RF B-complex with vitamin C Tablet 1 tab PO DAILY Qty: 90 4RF omeprazole 40 mg capsule,delayed release(DR/EC) 40 mg PO DAILY Qty: 90 3RF cephalexin 500 mg capsule 500 mg PO TID ondansetron 4 mg tablet,disintegrating 4 mg translingual Q8H PRN calcitriol 0.25 mcg capsule 0.25 mcg PO TID allopurinol 100 mg tablet 100 mg PO QHS potassium chloride 20 mEq tablet,ER particles/crystals 20 meq PO BID Changed torsemide 100 mg tablet 50 mg PO DAILY Qty: 90 5RF Rx Instructions: 06/20/23: Decreased per Dr. Mcmahon. See Task. -hb insulin glargine [Basaglar KwikPen U-100 Insulin] 100 unit/mL (3 mL) insulin pen 40 unit SC DAILY Qty: 60 5RF Discontinued levetiracetam [Keppra] 500 mg tablet 500 mg PO BID Qty: 180 3RF Jardiance 25 mg tablet 25 mg PO DAILY No Action (DME) lancets 25 gauge misc See Dose Instructions .ROUTE .MEDSUPPLY Qty: 100 5RF Dose Instruction: As directed Rx Instructions: daily e11.9 True track smart system (DME) lancets [OneTouch Delica Lancets] 33 gauge misc See Dose Instructions .ROUTE DAILY Qty: 100 0RF Dose Instruction: E11.9 daily Rx Instructions: E11.9 daily (DME) Blood Glucose Test Strip See Dose Instructions .ROUTE .MEDSUPPLY Qty: 300 5RF Dose Instruction: As directed Rx Instructions: 3 times per day. E11.9 / Z79.4 One touch ultra (DME) pen needle, diabetic [1st Tier Unifine Pentips] 31 gauge x 1/4 needle See Dose Instructions .ROUTE .MEDSUPPLY Qty: 450 5RF Dose Instruction: As directed Rx Instructions: 5/ day E11.65. needed for several meds Discharge Instructions Activity:: Activity as Tolerated Equipment/Supplies:: No Equipment Needed Diet:: As Tolerated Discharge Orders Discharge Orders: Discharge Order (Routine); Ordered 02/15/24 Ordered By: Marshal Guillaume DS: Summary Time Spent with Patient providing and/or coordinating discharge services: Greater than 30 minutes Status at Discharge Functional status at discharge: independent ambulation Overall status at discharge: patient is back to baseline Mental Status: mental status grossly normal Speech and Movement: speech and movement normal Mood: congruent mood Affect: normal affect Quality:SDOH Health Related Social Needs: No Data to Display Exam Narrative Exam Narrative: Well-appearing older obese female laying in bed in no acute distress, ANO x 4, multiple bruises along both sides of forehead with roughly 10 cm close laceration of the left gnosticism, heart regular rate rhythm, lungs clear to auscultation bilaterally, abdomen soft, nontender, nondistended, cranial nerves II through XII intact, normal strength and sensation in bilateral upper and lower extremities Psych Mental Status: mental status grossly normal Speech and Movement: speech and movement normal Mood: congruent mood Affect: normal affect DS: Data Vitals/I&O Vitals and I&O: Vital Signs Temperature 97.9 F 02/15/24 07:57 Temperature Source Tympanic 02/15/24 07:57 Pulse 77 02/15/24 08:53 Pulse Rhythm Regular 02/14/24 21:30 Pulse 75 02/13/24 21:10 Respiratory Rate 20 02/15/24 07:57 Respiratory Effort Normal, Non-Labored 02/15/24 00:05 Respiratory Depth Normal 02/15/24 00:05 Respiratory Pattern Normal 02/15/24 00:05 Blood Pressure 127/57 L 02/15/24 08:53 Blood Pressure Mean 84 02/13/24 21:07 Blood Pressure Position Supine 02/13/24 16:45 Pulse Oximetry 94 02/15/24 07:57 Oxygen Delivery Method Nasal Cannula 02/15/24 07:57 Oxygen Flow Rate 2 02/15/24 07:57 Pain Level 0 02/15/24 07:57 Comment Standing, orthostatic set. Patient was tremulous and HR may not be an accurate measurement. 02/14/24 12:45 Intake & Output 02/14/24 02/15/24 02/15/24 17:59 05:59 17:59 Output Total 300 / 300 250 / 550 Balance -300 / -300 -250 / -550 Output: Urine 300 / 300 250 / 550 Other: Urine Color Yellow Yellow Yellow Urine Appearance Clear Clear Clear Urine Odor None Strong Voiding Methods Toilet Bedside Commode Bedside Commode Diaper Incontinent Incontinent Data Completed and Pending Labs on day of discharge: Labs from last 24 hours 02/15/24 06:18 WBC 10.85 H RBC 4.08 Hgb 10.4 L Hct 35.0 L MCV 86 MCH 25.5 L MCHC 29.7 L RDW 16.7 H Plt Count 316 MPV 9.8 Sodium 143 Potassium 4.6 Chloride 105 Carbon Dioxide 30.2 Anion Gap 7.8 BUN 50 H Creatinine 2.2 H Est GFR (CKD-EPI 2020) 23.38 Glucose 126 H Calcium 9.2 Preliminary micro results at discharge 02/13/24 18:20 Urine Culture - Preliminary Urine - Reflex from Ua Pseudomonas aeruginosa PFSH All Active Problems (Updated 02/15/24 @ 09:41 by Marshal Guillaume MD) Orthostatic hypotension (Acute) DVT prophylaxis (Acute) Scalp laceration (Acute) Left bundle branch block (Acute) UTI (urinary tract infection) (Acute) Unresponsive episode (Acute) Posterior tibial tendon dysfunction (Acute) 02/03/16 Ankle pain (Acute 03/13/14) Numbness and tingling in left upper extremity (Acute) Hypoxia (Acute) Vaginal atrophy (Acute) Multiple falls (Acute) UTI (urinary tract infection) (Acute) Chronic hypoxic respiratory failure (Acute) Obesity (Chronic) Nocturnal hypoxia (Acute) Pulmonary hypertension (Acute) Elevated serum creatinine (Acute) Vaginal itching (Acute) Osteoarthritis of right knee (Acute) Uterine polyp (Acute) Postmenopausal bleeding (Acute) Low magnesium level (Acute) Hyperparathyroidism (Acute) Hypocalcemia (Acute) Gout (Chronic) Right knee pain (Acute) Arthropathies (Acute) Skin tear (Acute) Congestive heart failure (Chronic) Preserved ejection fraction-followed by cardiology at [facility] Type 2 diabetes mellitus with diabetic nephropathy (Acute) Coronary artery disease (Chronic) Chronic kidney disease, stage 4 (severe) (Acute) 12/2021, Cr-2.5 Bimalleolar ankle fracture (Acute) s/p ORIF on 10/07 Cyst of lateral meniscus of right knee (Acute) Wound abscess (Acute) Medical History Chronic obstructive lung disease Palliative care patient Fracture of proximal end of right fibula Closed trimalleolar fracture of right ankle (10/03/21) Closed avulsion fracture of condyle of right femur Tear of lateral meniscus of right knee Medial meniscus tear CHF (congestive heart failure) IDDM (insulin dependent diabetes mellitus) Myoclonic epileptic seizures Heart failure with preserved ejection fraction, borderline, class III Pancreatic atrophy DVT (deep venous thrombosis) CAD (coronary artery disease), [place] coronary artery DNR no code (do not resuscitate) Constipation Atrial flutter Gram-positive bacteremia Diabetes mellitus (09/20/10) Tarsal tunnel syndrome (06/11/13) Anemia CKD (chronic kidney disease) stage 3, GFR 30-59 ml/min Cr about 2.5 Postmenopausal bleeding neg. endometrial biopsy Menopausal syndrome 07/11/03 Hepatomegaly 06/10/04 Abnormal mammography 08/10/06 Diabetes mellitus 09/20/10 Positive Microalbumin Tarsal tunnel syndrome 06/11/13 Hyperlipidemia (08/10/00) Spinal stenosis of lumbar region (02/15/16) Smoker (06/30/16) 01/17/17 1-2 cig/wk Rotator cuff syndrome (08/01/09) Renal impairment (07/11/03) ADRENAL MASS. F/U W/ [place] positive microalbumin Primary osteoarthritis of left hip (09/17/15) Postoperative wound dehiscence (12/23/15) Low back pain (04/10/03) DISC HERNIATION L4. MULTILEVEL DJD/SPINAL STENOSIS BY MRI; S/P surgery Hip joint inflamed (09/03/15) Hammer toe Left/right Folate deficiency (02/15/16) Carpal tunnel syndrome (08/10/06) BILATERAL R S/P SURGERY BMI 40.0-44.9, adult (12/02/14) Vitamin D deficiency Cervical spondylosis with myelopathy Atrial fibrillation Gout Carpal tunnel syndrome Spinal stenosis of lumbar region at multiple levels Restless leg syndrome Essential hypertension Surgical History S/P ORIF (open reduction internal fixation) fracture RT ANKLE S/P CABG (coronary artery bypass graft) (01/03/19) 4 vessel CABG and LA appendage excision, Dr. Nav Wang, [facility], [place] History of gynecologic surgery endometrial biopsy-neg S/P carpal tunnel release H/O Spinal surgery multiple spine surgeries; low back x 2; She had multilevel DJD and spinal stenosis; disc herniation. 2008-cervical repair; C6-C7 disc; recurrent surgery. H/O arthrodesis 04/10/23 s/p RT ankle arthodesis at [facility]- External Fixator placed D/T complications from ORIF done at [facility] on 10/07/21 History of bilateral tubal ligation 09/11/80 S/P rotator cuff repair 09/11/80 History of orthopedic surgery 09/11/97 tarsal tunnel release S/P cholecystectomy 09/11/12 History of hip surgery 11/10/15 left hip arthroplasty 12/04/15-placement of wound VAC to left hip Status post incision and drainage 12/04/15 left hip surgical wound dehiscence and infection Cataract (01/07/14) FOLLOWED BY OPTICAL EXPRESSIONS Family History Mother Diabetes Essential hypertension Personal history of malignant neoplasm KIDNEY/LIVER/BRAIN Heart disease Hyperlipidemia Stroke Asthma Father Diabetes Essential hypertension Personal history of malignant neoplasm BONE Heart disease Asthma Sister Diabetes Essential hypertension Depression Heart disease Asthma Grandfather No problems noted. Grandfather No problems noted. Grandmother Personal history of malignant neoplasm UTERINE Grandmother Diabetes Aunt Personal history of malignant neoplasm BREAST Brother Hyperlipidemia Stroke Sister Asthma Son Asthma Daughter Depression Asthma Daughter Asthma Daughter Depression Neoplasm Asthma Brother No problems noted. 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: [employer] Pets and animals: Yes Pets and animals: cat(s), dog(s) and horse(s) Current gender identity: female What is your relationship status?: Panel score (0-1 are the most socially isolated patients): 0 What type of physical activity do you participate in: none, walking and additional Details: would like to start now that it's warm Duration: 15-30 minutes/day Saniya/Mormon: Taoism Special saniya needs: No Seatbelt use: always Do you feel safe at home: Yes Do you feel safe in your relationship?: Yes Additional Social history: lives at home with family Time Spent with Patient Time Spent with Patient: <45 minutes Time was spent: preparing to see the patient(eg.review tests), obtaining and/or reviewing separately otained hiistory, ordering medications,tests, procedures, referring, communicating with other health childcare center director, indepentently interpreting results, counseling the patient and care coordination
--- NOTE | 2024-02-15 09:51 | PDOC.CMDIS ---
Date of service: 02/15/24 Time of Service: 09:51 LACE Index Scoring Tool Questions: Length of Stay (in days): 1 Was the patient admitted via the E.D.?: Yes Comorbidities: Diabetes w/o Complication, Congestive Heart Failure, with End Organ Damage, Chronic Pulmonary Disease (Chronic hypoxic resp. failure) and Liver or Renal Disease E.D. Visits: 1 Answers: Total Score: 10 Risk of Readmission: High Risk Care Management Discharge Plan Reason for Hospitalization: Unresponsive episode, fall, scalp laceration Discharge Plan: Bibi is discharged home with [facility] RN/PT services. Pt will follow up with community providers and her discharge plan of care as instructed. Pt is driven home via private vehicle with family. Patient/Family Education Needs: Review discharge instructions, limitations, medications and plan to follow up with community providers. Discuss ask me three and goals of self care. Services Needed at Discharge: Home Health Care Services ([facility] RN/PT) SDOH Health Related Social Needs: No Data to Display
--- NOTE | 2024-02-15 09:56 | PT.INNT ---
PT Notes Visit Reasons: unresponsive event;LBBB,scalp laceration,uti Pt refused today's session. She states that she is going home and she is all set with PT for today.
[2024-02-15] MEDS: Fosfomycin Tromethamine 3 GM PACKET PO (10:31)
[2024-02-15 10:45] LABS: Levetiracetam 30.5 mcg/mL
[2024-02-15 11:13] VITALS: BP 118/63; PULSE 66; RESP 18; TEMP 36.4; O2SAT 96
== END 2024-02-15 11:52 | disposition home health service (06) | DRG 312 ==
LOC: ER 21:16 → MS 02-14 08:23
PROVIDERS: Family Medicine; Admitting Provider Family Medicine; Emergency Provider Emergency Medicine; PCP Family Medicine; Visit Provider Family Medicine
DX: I95.1 Orthostatic hypotension (principal); I48.92 Unspecified atrial flutter; J96.11 Chronic respiratory failure with hypoxia; I50.32 Chronic diastolic (congestive) heart failure; N39.0 Urinary tract infection, site not specified; N18.4 Chronic kidney disease, stage 4 (severe); E11.649 Type 2 diabetes mellitus with hypoglycemia without coma; G40.909 Epilepsy, unspecified, not intractable, without status epilepticus; I44.7 Left bundle-branch block, unspecified; I25.10 Atherosclerotic heart disease of native coronary artery without angina pectoris; Z79.4 Long term (current) use of insulin; E11.22 Type 2 diabetes mellitus with diabetic chronic kidney disease; Z95.1 Presence of aortocoronary bypass graft; J44.9 Chronic obstructive pulmonary disease, unspecified; Z99.81 Dependence on supplemental oxygen; I48.0 Paroxysmal atrial fibrillation; Z86.718 Personal history of other venous thrombosis and embolism; Z79.01 Long term (current) use of anticoagulants; G89.29 Other chronic pain; W19.XXXA Unspecified fall, initial encounter; S01.01XA Laceration without foreign body of scalp, initial encounter; I27.20 Pulmonary hypertension, unspecified; E66.9 Obesity, unspecified; Z68.38 Body mass index [BMI] 38.0-38.9, adult; E21.3 Hyperparathyroidism, unspecified; R29.6 Repeated falls; K86.89 Other specified diseases of pancreas; D64.9 Anemia, unspecified; Z66 Do not resuscitate; Z98.1 Arthrodesis status; G25.81 Restless legs syndrome; Z96.642 Presence of left artificial hip joint; Z87.891 Personal history of nicotine dependence; S50.12XA Contusion of left forearm, initial encounter; S50.11XA Contusion of right forearm, initial encounter; S40.022A Contusion of left upper arm, initial encounter; S40.021A Contusion of right upper arm, initial encounter; B96.5 Pseudomonas (aeruginosa) (mallei) (pseudomallei) as the cause of diseases classified elsewhere
CPT/HCPCS: 00123; 12002; 36415; 80048; 80053; 82550; 85027; 87077; 93005; 96365; 97162; 97165; 97530; 97535; 99285; J3490; 70450; 72125; 73502; 80177; 81003; 81015; 83735; 84484; 85025; 87086; 87186; 93010; 99222; 99233; 99238; J0696; J1815

== ENCOUNTER 2024-03-01 01:19 | Outpatient (CLI) | payer OTHER, MEDICAID, SELFPAY ==
[2024-03-01 13:10] LABS: ALT 26 U/L (14-59); AST 12 U/L (15-37); Albumin 3.6 g/dL (3.4-5.0); Alkaline Phosphatase 96 U/L (46-116); Anion Gap 14.1 mmol/L (3-11); BUN 48 mg/dL (7-18); Bilirubin, Total 0.56 mg/dL (0.2-1.0); CO2 22.9 mmol/L (21.0-32.0); CREATININE 2.1 mg/dL (0.55-1.02); Calcium 8.8 mg/dL (8.5-10.1); Chloride 108 mmol/L (98-107); Estimated GFR 24.73 (mL/min/1.73m2); Glucose 189 mg/dL (74-106); PHOSPHORUS 4.1 mg/dL (2.6-4.7); Potassium 4.6 mmol/L (3.5-5.1); Sodium 145 mmol/L (136-145); Total Protein 7.4 g/dL (6.4-8.2)
[2024-03-01 13:53] LABS: COMMENT (LAB VIEW ONLY) 52.67 mg/dL; Microalb ug/mg Crea 50.9 ug/mg Cr
== END 2024-03-01 01:20 | disposition home or self-care (01) ==
LOC: LOS 01:19
PROVIDERS: PCP Family Medicine; Visit Provider Hospitalist
DX: I10 Essential (primary) hypertension (principal); E66.9 Obesity, unspecified; N18.4 Chronic kidney disease, stage 4 (severe)
CPT/HCPCS: 36415; 80053; 80069; 82043; 82570

== ENCOUNTER → 2024-03-12 01:57 | Outpatient (CLI) | payer OTHER, MEDICAID, SELFPAY ==
--- NOTE | 2024-03-12 07:44 | DI.CTLCSR_ITS ---
Exam(s) CT CHEST LUNG CANCER SCREEN EXAM: CT CHEST LUNG CANCER SCREEN CLINICAL HISTORY: Screening for lung cancer,FORMER SMOKER, Z87.891. TECHNIQUE: Imaging Protocol: Low Dose Technique CONTRAST MATERIAL: None COMPARISON: CT CT CHEST PE CTA from 03/03/2019 FINDINGS: CHEST: LUNGS: There are no ominous pulmonary nodules. There are no confluent infiltrates. Mild scarring in bilateral upper lobes anteriorly is noted. There is a 1.4 x 0.3 cm device which appears to be intra arterial within a left lower lobe vessel, not previously present. Most probably related to recent in terval interventional procedure. MEDIASTINUM: There is no obvious hilar nor mediastinal adenopathy. CARDIAC: Sternotomy wires. No sternal fusion.Diameter of the ascending thoracic aorta is enlarged me asuring 4.1 cm. Diameter of the mid thoracic aortic arch is 2.9 cm. Diameter of the descending thor acic aorta is upper normal, measuring 2.6 cm. Heart size upper normal. No pericardial effusion. OTHER: Fusion plate in the lower cervical spine noted. Also sternotomy wires. OSSEOUS: No fractures. No significant osseous lesions identified.. IMPRESSION: 1. No ominous pulmonary nodules. Other lung findings as above, including a 14 x 3 mm intra arterial device in what appears to be a left lower lobe vessel. Correlation with interval interventional proc edure recommended. 2. No confluent infiltrates nor pleural effusions. No new intrathoracic adenopathy. 3. Lung RADS Cat 1 - Negative: No nodules and definitely benign nodules Lung-RADS 1.0 CATEGORIES: Category 0 - Prior chest CT exam(s) being located for comparison. Category 1 - Annual screening in 12 months. No nodules or definitely benign nodules. Category 2 - Annual screening in 12 months. Benign appearance. Nodules with low likelihood of becomin g active cancer. Category 3 - 6-month follow-up. Probably benign. Short-term follow-up suggested. Nodules with low lik elihood of becoming active cancer. Category 4A - 3-month follow-up and CT/PET if >8 mm in size. Suspicious finding. Findings which requi re additional testing. Category 4B - Findings which require additional testing and tissue sampling. Category 4X - Category 3 or 4 nodules with additional features or imaging findings that increases the suspicion of malignancy. Modifier S- Potentially clinically significant findings (non lung cancer) RADIATION DOSE DELIVERED: 96.53mGy.cm Total DLP DATA REPOSITORY: All CT scans at this facility are submitted to the National Radiology Data Registry (NRDR) Dose Index Registry (DIR) with the [employer] (ACR). RADIATION OPTIMIZATION: All CT scans at this facility use at least one of these dose optimization te chniques: automated exposure control; mA and/or kV adjustment per patient size (includes targeted exa ms where dose is matched to clinical indication); or iterative reconstruction.
== END ==
PROVIDERS: PCP Family Medicine; Visit Provider Physician Assistant Surgical
DX: Z87.891 Personal history of nicotine dependence (principal)
CPT/HCPCS: 71271

== ENCOUNTER 2024-03-18 13:30 | Observation (INO) | payer OTHER, MEDICAID, SELFPAY ==
[2024-03-18] VITALS (64 sets, daily range): BP systolic 45–150; BP diastolic 25–69; PULSE 30–90; RESP 13–26; TEMP 36.4–36.7; O2SAT 95–99
--- NOTE | 2024-03-18 13:30 | RT.EKG_ITS ---
APPROVED REPORT Exam: Resting ECG Reason for Exam: shortness of breathe Patient Location: E HR:37 bpm ECG Measurements Heart Rate 37 AXIS GA 198 P 73 QRSd 167 QRS 8 QT 525 T 120 QTc 411 Conclusion Predominant 2:1 AV block...most complexes 2 Ps Atrial premature complex...SV complex w/ short R-R interval Left bundle branch block...QRSd>120, broad/notched R Probable anteroseptal infarct, acute...ST>0.15mV, T upright, V1-V2 2nd deg type 2
[2024-03-18 14:07] LABS: Abs Immature Grans 0.06 10^3/uL (0.0-0.06); Absolute Lymphocyte Count 1.82 10^3/uL (1.2-3.4); Absolute Monocyte Count 0.92 10^3/uL (0.1-0.8); Absolute Neutrophil Count 8.07 10^3/uL (1.2-6.7); Basophils % 0.9 %; Eosinophils % 5.8 %; HCT 38.4 % (36.0-46.0); HGB 11.2 g/dL (11.2-15.7); Immature Grans % 0.5 %; Lymphocytes % 15.6 %; MCH 25.1 pg (27.0-33.0); MCHC 29.2 % (32.0-36.0); MCV 86 fL (80-95); MPV 9.8 fL (8.0-11.0); Monocytes % 7.9 %; Neutrophils % 69.3 %; Platelet Count 270 10^3/uL (130-400); RBC 4.46 10^6/uL (3.93-5.22); RDW 17.7 % (11.7-14.6); RDW-SD 55.6 fL; WBC 11.64 10^3/uL (4.4-10.8)
[2024-03-18 14:09] LABS: Absolute Eosinophil Count 0.68 10^3/uL (0.0-0.7)
[2024-03-18 14:31] LABS: ALT 26 U/L (14-59); AST 12 U/L (15-37); Albumin 3.7 g/dL (3.4-5.0); Alkaline Phosphatase 91 U/L (46-116); Bilirubin, Total 0.38 mg/dL (0.2-1.0); CO2 29.4 mmol/L (21.0-32.0); CREATININE 2.6 mg/dL (0.55-1.02); Calcium 8.9 mg/dL (8.5-10.1); Estimated GFR 19.14 (mL/min/1.73m2); Glucose 139 mg/dL (74-106); Magnesium 2.3 mg/dL (1.8-2.4); TSH (W/Ref FT4) 2.62 uIU/mL (0.36-3.74); Total Protein 7.3 g/dL (6.4-8.2); Troponin I < 50 ng/L (< or =60)
[2024-03-18 14:34] LABS: Potassium 4.8 mmol/L (3.5-5.1)
[2024-03-18 14:43] LABS: Chloride 105 mmol/L (98-107)
[2024-03-18 14:44] LABS: BUN 80 mg/dL (7-18)
[2024-03-18 14:51] LABS: Anion Gap 6.6 mmol/L (3-11); Sodium 141 mmol/L (136-145)
[2024-03-18 15:18] LABS: NT-proBNP 736 pg/mL (<300)
--- NOTE | 2024-03-18 15:25 | ED.GENADUL_ITS ---
Discharge Plan Disposition Patient Disposition: Admit to [facility] Condition: Critical Condition: Serious Discharge Details Chief Complaint: SOB Clinical Impression: Bradycardia, CHF (congestive heart failure) Admit Date/Time: 03/18/24 16:37 Admit Provider: Clarence Caban Attending Provider: Clarence Caban Primary Care Provider: Laisha Mcmahon ED Provider: Darshan Campos Discharge Instructions Activity:: Activity as Tolerated Equipment/Supplies:: No Equipment Needed Diet:: Carb Counting Discharge Orders Discharge Orders: Discharge Order (Routine); Ordered 03/19/24 Ordered By: Claernce Caban Discharge Data Discharge Date/Time-TO BE ENTERED AT DEPARTURE: 03/18/24 17:44 HPI General Mode of arrival: EMS . Date/Time Provider Initiated Documentation: 03/18/24 13:32 . Information obtained by: patient and EMS . HPI Narrative: 73yo female with multiple medical problems including history of coronary artery disease status post CABG, here with dizziness. Patient notes lightheadedness and generally not feeling well over the past 1 to 2 weeks. Patient notes 2 pound weight gain, bilateral lower extremity edema. EMS found patient in second- degree, type II heart block. Related Data Home Medications ?Medication ?Instructions ?Recorded ?Confirmed lancets 33 gauge (OneTouch Delica #100 ea 12/18/18 03/19/24 Lancets) lancets 25 gauge #100 ea 01/29/19 03/19/24 albuterol sulfate 2.5 mg/3 mL 2.5 mg (3 mL) inhalation Q2H PRN 09/10/20 03/18/24 (0.083 %) solution for nebulization PRN shortness of breath or wheezing #180 mL pen needle, diabetic 31 gauge x #450 ea 12/10/20 03/19/2409/14 (1st Tier Unifine Pentips) blood sugar diagnostic (Blood #300 ea 04/08/21 03/19/24 Glucose Test strips) acetaminophen 500 mg tablet 1,000 mg PO BID 11/15/22 03/18/24 (Tylenol Extra Strength) lidocaine 4 % topical patch 1 patch topical DAILY PRN 05/12/23 03/18/24 meclizine 12.5 mg tablet 12.5 mg PO TID PRN 05/12/23 03/18/24 atorvastatin 40 mg tablet 40 mg PO DAILY #90 tab-caps 06/09/23 03/18/24 cholecalciferol (vitamin D3) 25 25 mcg PO DAILY #90 caps 07/07/23 03/18/24 mcg (1,000 unit) capsule fesoterodine 8 mg tablet,extended 8 mg PO DAILY #90 tabs 08/08/23 03/18/24 release 24 hr magnesium chloride 71.5 mg 71.5 mg PO TID #270 tabs 08/30/23 03/18/24 (magnesium chloride) tablet,delayed release (Slow-Mag) ropinirole 2 mg tablet 2 mg PO QPM PRN restless leg(s) 08/30/23 03/18/24 #90 tabs isosorbide mononitrate 10 mg tablet 10 mg PO BID #180 tabs 09/18/23 03/18/24 nmldbh-clpikcpt-oaddpkl 1 cap PO TID #270 caps 09/18/23 03/18/24 6,000-19,000-30,000 unit capsule,delayed rel (Creon) spironolactone 25 mg tablet 25 mg PO BID #180 tabs 09/18/23 03/18/24 metoprolol succinate 50 mg 50 mg PO DAILY #90 tabs 10/03/23 03/18/24 tablet,extended release 24 hr ergocalciferol (vitamin D2) 1,250 50,000 unit PO QWEEK #13 caps 10/04/23 03/18/24 mcg (50,000 unit) capsule nystatin 100,000 unit/gram topical 1 applic topical BID #60 grams 10/19/23 03/18/24 powder budesonide 160 mcg-glycopyr 9 2 inh inhalation BID #10.7 grams 11/07/23 03/18/24 mcg-formot 4.8 mcg/actuation HFA inhaler (Breztri Aerosphere) estradiol 0.01% (0.1 mg/gram) 1 g vaginal .twice weekly #42.5 11/14/23 03/18/24 vaginal cream grams B-complex with vitamin C 1 tab PO DAILY #90 tabs 11/20/23 03/18/24 omeprazole 40 mg capsule,delayed 40 mg PO DAILY #90 caps 01/15/24 03/18/24 release allopurinol 100 mg tablet 100 mg PO QHS 02/13/24 03/18/24 calcitriol 0.25 mcg capsule 0.25 mcg PO TID hypocalcemia 02/13/24 03/18/24 cephalexin 500 mg capsule 500 mg PO TID osteomyelitis 02/13/24 03/18/24 ondansetron 4 mg disintegrating 4 mg translingual Q8H PRN Nausea/ 02/13/24 03/18/24 tablet vomiting potassium chloride 20 mEq 20 meq PO BID 02/14/24 03/18/24 tablet,extended release(part/cryst) insulin glargine 100 unit/mL (3 40 unit (0.4 mL) subcut DAILY #60 02/15/24 03/18/24 mL) subcutaneous pen (Basaglar mL KwikPen U-100 Insulin) apixaban 2.5 mg tablet (Eliquis) 2.5 mg PO BID #180 tabs 02/20/24 03/18/24 aspirin 81 mg tablet,delayed 81 mg PO DAILY 02/20/24 03/18/24 release (Adult Low Dose Aspirin) duloxetine 30 mg capsule,delayed 30 mg PO DAILY #90 tab-caps 02/20/24 03/18/24 release epinephrine 0.3 mg/0.3 mL 0.3 mg (0.3 mL) IM ONCE #2 ea 02/20/24 03/18/24 injection, auto-injector (EpiPen 2-Erick) insulin aspart U-100 100 unit/mL 10 unit (0.1 mL) subcut TID #45 mL 02/20/24 03/18/24 (3 mL) subcutaneous pen (Novolog FlexPen U-100 Insulin aspart) levetiracetam 750 mg tablet 750 mg PO BID #180 tabs 02/21/24 03/18/24 tramadol 50 mg tablet 50 mg PO BID PRN pain #60 tabs 02/21/24 03/18/24 fluconazole 150 mg tablet 150 mg PO Q3D #5 tabs 03/07/24 03/18/24 Previous Rx's ?Medication ?Instructions ?Recorded lancets 33 gauge (OneTouch Delica #100 ea 12/18/18 Lancets) lancets 25 gauge #100 ea 01/29/19 albuterol sulfate 2.5 mg/3 mL 2.5 mg (3 mL) inhalation Q2H PRN 09/10/20 (0.083 %) solution for nebulization PRN shortness of breath or wheezing #180 mL pen needle, diabetic 31 gauge x #450 ea 12/10/2009/14 (1st Tier Unifine Pentips) blood sugar diagnostic (Blood #300 ea 04/08/21 Glucose Test strips) atorvastatin 40 mg tablet 40 mg PO DAILY #90 tab-caps 06/09/23 cholecalciferol (vitamin D3) 25 25 mcg PO DAILY #90 caps 07/07/23 mcg (1,000 unit) capsule fesoterodine 8 mg tablet,extended 8 mg PO DAILY #90 tabs 08/08/23 release 24 hr magnesium chloride 71.5 mg 71.5 mg PO TID #270 tabs 08/30/23 (magnesium chloride) tablet,delayed release (Slow-Mag) ropinirole 2 mg tablet 2 mg PO QPM PRN restless leg(s) 08/30/23 #90 tabs isosorbide mononitrate 10 mg tablet 10 mg PO BID #180 tabs 09/18/23 pvhsvr-hvvhhxxz-jznuezr 1 cap PO TID #270 caps 09/18/23 6,000-19,000-30,000 unit capsule,delayed rel (Creon) spironolactone 25 mg tablet 25 mg PO BID #180 tabs 09/18/23 metoprolol succinate 50 mg 50 mg PO DAILY #90 tabs 10/03/23 tablet,extended release 24 hr ergocalciferol (vitamin D2) 1,250 50,000 unit PO QWEEK #13 caps 10/04/23 mcg (50,000 unit) capsule nystatin 100,000 unit/gram topical 1 applic topical BID #60 grams 10/19/23 powder budesonide 160 mcg-glycopyr 9 2 inh inhalation BID #10.7 grams 11/07/23 mcg-formot 4.8 mcg/actuation HFA inhaler (Breztri Aerosphere) estradiol 0.01% (0.1 mg/gram) 1 g vaginal .twice weekly #42.5 11/14/23 vaginal cream grams B-complex with vitamin C 1 tab PO DAILY #90 tabs 11/20/23 omeprazole 40 mg capsule,delayed 40 mg PO DAILY #90 caps 01/15/24 release insulin glargine 100 unit/mL (3 40 unit (0.4 mL) subcut DAILY #60 06/06/24 mL) subcutaneous pen (Basaglar mL KwikPen U-100 Insulin) apixaban 2.5 mg tablet (Eliquis) 2.5 mg PO BID #180 tabs 02/20/24 duloxetine 30 mg capsule,delayed 30 mg PO DAILY #90 tab-caps 02/20/24 release epinephrine 0.3 mg/0.3 mL 0.3 mg (0.3 mL) IM ONCE #2 ea 02/20/24 injection, auto-injector (EpiPen 2-Erick) insulin aspart U-100 100 unit/mL 10 unit (0.1 mL) subcut TID #45 mL 02/20/24 (3 mL) subcutaneous pen (Novolog FlexPen U-100 Insulin aspart) levetiracetam 750 mg tablet 750 mg PO BID #180 tabs 02/21/24 tramadol 50 mg tablet 50 mg PO BID PRN pain #60 tabs 02/21/24 fluconazole 150 mg tablet 150 mg PO Q3D #5 tabs 03/07/24 Allergies Allergy/AdvReac Type Severity Reaction Status Date / Time venom-honey bee Allergy Severe ANAPHYLAXIS Verified 03/18/24 13:57 oxycodone Allergy Mild Visual Unverified 03/18/24 13:57 Disturbances adhesive Allergy BLISTERS Verified 03/18/24 13:57 General Stated Complaint: SOB STEPHANIE: 2 Exam Const General: cooperative HENMT Mouth: moist mucous membranes Eyes Conjunctivae: normal conjunctivae Sclera: normal sclerae Neck Neck: trachea midline Resp Auscultation: clear to auscultation bilaterally, no rales, no rhonchi and no wheezes Cardio Rate: bradycardic Rhythm: regular rhythm GI Palpation: soft, not firm, no guarding, no masses, not rigid and nontender Skin General skin exam: no rashes or lesions noted Neuro General: patient alert, patient awake and tone normal Extrem General: no calf tenderness and edema Laterality: bilateral (trace) Course Vital Signs Vital signs: Vital Signs Pulse 37 L 03/18/24 13:29 Respiratory Rate 20 03/18/24 13:29 Blood Pressure 126/58 L 03/18/24 13:29 Pulse Oximetry 98 03/18/24 13:29 Pulse 40 L 03/18/24 14:31 Pulse 33 L 03/18/24 15:16 Respiratory Rate 21 03/18/24 15:16 Respiratory Effort Non-Labored, Short of Breath 03/18/24 13:48 Respiratory Depth Normal 03/18/24 13:48 Respiratory Pattern Normal 03/18/24 13:48 Blood Pressure 123/38 L 03/18/24 15:16 Blood Pressure Mean 69 03/18/24 15:16 Blood Pressure Position Supine 03/18/24 13:48 Pulse Oximetry 99 03/18/24 13:48 Oxygen Delivery Method Room Air 03/18/24 13:48 Oxygen Flow Rate 2 03/18/24 13:29 Lab/Test Results Lab/Test Results: Laboratory Tests Range/Units 03/18/24 13:35 WBC (4.4-10.8) 10^3/uL 11.64 H RBC (3.93-5.22) 10^6/uL 4.46 Hgb (11.2-15.7) g/dL 11.2 Hct (36.0-46.0) % 38.4 MCV (80-95) fL 86 MCH (27.0-33.0) pg 25.1 L MCHC (32.0-36.0) % 29.2 L RDW (11.7-14.6) % 17.7 H Plt Count (130-400) 10^3/uL 270 MPV (8.0-11.0) fL 9.8 Immature Gran % % 0.5 Neutrophils % % 69.3 Lymphocytes % % 15.6 Monocytes % % 7.9 Eosinophils % % 5.8 Basophils % % 0.9 Nucleated RBC % (0.0-0.3) % 0.0 Absolute Neutrophils (1.2-6.7) 10^3/uL 8.07 H Absolute Lymphocytes (1.2-3.4) 10^3/uL 1.82 Absolute Monocytes (0.1-0.8) 10^3/uL 0.92 H Absolute Eosinophils (0.0-0.7) 10^3/uL 0.68 Absolute Basophils (0.0-0.2) 10^3/uL 0.10 Sodium (136-145) mmol/L 141 Potassium (3.5-5.1) mmol/L 4.8 Chloride (98-107) mmol/L 105 Carbon Dioxide (21.0-32.0) mmol/L 29.4 Anion Gap (3-11) mmol/L 6.6 BUN (7-18) mg/dL 80 H Creatinine (0.55-1.02) mg/dL 2.6 H Est GFR (CKD-EPI 2020) (mL/min/1.73m2) 19.14 Glucose (74-106) mg/dL 139 H Calcium (8.5-10.1) mg/dL 8.9 Magnesium (1.8-2.4) mg/dL 2.3 Total Bilirubin (0.2-1.0) mg/dL 0.38 AST (15-37) U/L 12 L ALT (14-59) U/L 26 Alkaline Phosphatase (46-116) U/L 91 Troponin I (< or =60) ng/L < 50 NT-Pro-B Natriuret Pep (<300) pg/mL 736 H Total Protein (6.4-8.2) g/dL 7.3 Albumin (3.4-5.0) g/dL 3.7 TSH (0.36-3.74) uIU/mL 2.62 Medical Decision Making 1525 --73-year-old female multimedical problems including history of coronary artery disease status post CABG, here with dizziness and generally not feeling well over the past 1 to 2 weeks. Patient notes 2 pound weight gain, bilateral lower extremity edema. EMS found patient in second-degree, type II heart block. EKG was reviewed and interpreted by me: Second-degree type II heart block with ventricular escape of 37 bpm. Left bundle branch block present. Pacer pads were placed on the patient. Of note, when attempting to roll the patient, she became quite dizzy, pale and hypotensive. Patient was returned to supine position and quickly improved back to baseline mentation and with normal blood pressure. Labs reviewed and no significant electrolyte abnormalities. TSH normal. BNP is pending. Initial troponin negative. I spoke with Dr. Pickard, cardiology infection control rn, discussed ED presentation and course. She recommends admission and holding beta-kelly for observation. 1635 --I spoke with Dr. Caban, discussed ED presentation course, he will admit to the ICU. Plan to hold beta-kelly. Lab Data Lab results reviewed: Yes I reviewed the patient's lab results. Quality:SDOH Health Related Social Needs: No Data to Display Critical Care Time Critical Care Time Critical Care Time: Yes Total Critical Care Time: 45 Attestation: I spent greater than 45 minutes addressing this patient's immediate life threats. Please see MDM section of note. This time was spent engaged in work directly related to the patient's care, exclusive of separate procedures, and failure to initiate these interventions would have likely resulted in clinically significant or life threatening deterioration in the patient's condition. [facility] All Active Problems (Updated 03/28/24 @ 07:45 by Darshan Campos MD) CHF (congestive heart failure) (Chronic) Bradycardia (Acute) Mobitz type 2 second degree atrioventricular block (Acute ~03/19/24) Left bundle branch block (Acute) Posterior tibial tendon dysfunction (Acute) 02/03/16 Ankle pain (Acute 03/13/14) Numbness and tingling in left upper extremity (Acute) Hypoxia (Acute) Vaginal atrophy (Acute) Multiple falls (Acute) Chronic hypoxic respiratory failure (Acute) Obesity (Chronic) Nocturnal hypoxia (Acute) Pulmonary hypertension (Acute) Elevated serum creatinine (Acute) Vaginal itching (Acute) Osteoarthritis of right knee (Acute) Uterine polyp (Acute) Postmenopausal bleeding (Acute) Low magnesium level (Acute) Hyperparathyroidism (Acute) Hypocalcemia (Acute) Gout (Chronic) Right knee pain (Acute) Arthropathies (Acute) Skin tear (Acute) Congestive heart failure (Chronic) Preserved ejection fraction-followed by cardiology at [facility] Type 2 diabetes mellitus with diabetic nephropathy (Acute) Coronary artery disease (Chronic) Chronic kidney disease, stage 4 (severe) (Acute) 12/2021, Cr-2.5 Bimalleolar ankle fracture (Acute) s/p ORIF on 10/07 Cyst of lateral meniscus of right knee (Acute) Wound abscess (Acute) Medical History UTI (urinary tract infection) Chronic obstructive lung disease Palliative care patient Fracture of proximal end of right fibula Closed trimalleolar fracture of right ankle (10/03/21) Closed avulsion fracture of condyle of right femur Tear of lateral meniscus of right knee Medial meniscus tear CHF (congestive heart failure) IDDM (insulin dependent diabetes mellitus) Myoclonic epileptic seizures Heart failure with preserved ejection fraction, borderline, class III Pancreatic atrophy DVT (deep venous thrombosis) CAD (coronary artery disease), [place] coronary artery DNR no code (do not resuscitate) Constipation Atrial flutter Gram-positive bacteremia Diabetes mellitus (09/20/10) Tarsal tunnel syndrome (06/11/13) Anemia CKD (chronic kidney disease) stage 3, GFR 30-59 ml/min Cr about 2.5 Postmenopausal bleeding neg. endometrial biopsy Menopausal syndrome 07/11/03 Hepatomegaly 06/10/04 Abnormal mammography 08/10/06 Diabetes mellitus 09/20/10 Positive Microalbumin Tarsal tunnel syndrome 06/11/13 Hyperlipidemia (08/10/00) Spinal stenosis of lumbar region (02/15/16) Smoker (06/30/16) 01/17/17 1-2 cig/wk Rotator cuff syndrome (08/01/09) Renal impairment (07/11/03) ADRENAL MASS. F/U W/ K[place]LAW positive microalbumin Primary osteoarthritis of left hip (09/17/15) Postoperative wound dehiscence (12/23/15) Low back pain (04/10/03) DISC HERNIATION L4. MULTILEVEL DJD/SPINAL STENOSIS BY MRI; S/P surgery Hip joint inflamed (09/03/15) Hammer toe Left/right Folate deficiency (02/15/16) Carpal tunnel syndrome (08/10/06) BILATERAL R S/P SURGERY BMI 40.0-44.9, adult (12/02/14) Vitamin D deficiency Cervical spondylosis with myelopathy Atrial fibrillation Gout Carpal tunnel syndrome Spinal stenosis of lumbar region at multiple levels Restless leg syndrome Essential hypertension Surgical History S/P ORIF (open reduction internal fixation) fracture RT ANKLE S/P CABG (coronary artery bypass graft) (01/03/19) 4 vessel CABG and LA appendage excision, Dr. Nav Wang, [facility], [place], [place] History of gynecologic surgery endometrial biopsy-neg S/P carpal tunnel release H/O Spinal surgery multiple spine surgeries; low back x 2; She had multilevel DJD and spinal stenosis; disc herniation. 2008-cervical repair; C6-C7 disc; recurrent surgery. H/O arthrodesis 04/10/23 s/p RT ankle arthodesis at [facility]- External Fixator placed D/T complications from ORIF done at [facility] on 10/07/21 History of bilateral tubal ligation 09/11/80 S/P rotator cuff repair 01/01/81 History of orthopedic surgery 09/11/97 tarsal tunnel release S/P cholecystectomy 09/11/12 History of hip surgery 11/10/15 left hip arthroplasty 12/04/15-placement of wound VAC to left hip Status post incision and drainage 12/04/15 left hip surgical wound dehiscence and infection Cataract (01/07/14) FOLLOWED BY [facility] Family History Mother Diabetes Essential hypertension Personal history of malignant neoplasm KIDNEY/LIVER/BRAIN Heart disease Hyperlipidemia Stroke Asthma Father Diabetes Essential hypertension Personal history of malignant neoplasm BONE Heart disease Asthma Sister Diabetes Essential hypertension Depression Heart disease Asthma Grandfather No problems noted. Grandfather No problems noted. Grandmother Personal history of malignant neoplasm UTERINE Grandmother Diabetes Aunt Personal history of malignant neoplasm BREAST Brother Hyperlipidemia Stroke Sister Asthma Son Asthma Daughter Depression Asthma Daughter Asthma Daughter Depression Neoplasm Asthma Brother No problems noted. Social History Smoking/Tobacco Use Status: Former Tobacco Use Quit Date: 12/10/18 Tobacco: How many years used: 20 Smoking risk assessment performed?: Yes Alcohol Intake: never Drug use: Never Substance use type: does not use Household members: children and other Details: 2 Housing: apartment Number of Children: 4 number of grandchildren: 4 current occupation: [employer] Pets and animals: Yes Pets and animals: cat(s), dog(s) and horse(s) Current gender identity: female What is your relationship status?: Panel score (0-1 are the most socially isolated patients): 0 What type of physical activity do you participate in: none, walking and additional Details: would like to start now that it's warm Duration: 15-30 minutes/day Saniya/Rastafarian: Sabianist Special saniya needs: No Seatbelt use: always Do you feel safe at home: Yes Do you feel safe in your relationship?: Yes Additional Social history: lives at home with family
--- NOTE | 2024-03-18 16:51 | W.PM.HP.N ---
Date of service: 03/18/24 Time of Service: 16:51 Assessment and Plan Assessment and plan (1) Mobitz type 2 second degree atrioventricular block: Status: Acute Assessment and plan: hold Toprol XL, monitor overnight in ICU w/ external pacer pads in place, if she becomes symptomatic, hypotensive the proceed w/ turning on external pacer and initiate iv dopamine or dobutamine and arrange transfer to tertiary care center for transvenous temporary pacer. consult Dr. Pickard in the morning (ED did consult her from the ER and she advised observation and holding Toprol. (2) Pstna-da-hzoxwxu kidney injury: Status: Inactive Assessment and plan: hold diuretics, she seems to be hypovolemic or at least euvolemic. she has hx of CHF however last echo from 11/20/23 showed normal LV and RV systolic function. Qualifiers: Acute renal failure type: unspecified Chronic kidney disease stage: unspecified stage Qualified Code(s): N17.9 - Acute kidney failure, unspecified; N18.9 - Chronic kidney disease, unspecified (3) Atrial fibrillation: Status: Inactive Assessment and plan: PAF, had prior LA appendage closure and reportedly was taken off anticoagulation afterwards, however she is now on apixaban. she does not recall any ablation or DCC. she has been maintained on Toprol XL however, she obviously has some conduction issues and may need a pacer termite technician if she needs ongoing AV hong blocking drugs for prevention of recurrent afib. If she has not had ablation then this should be considered at the time of pacer placement. Qualifiers: Atrial fibrillation type: paroxysmal Qualified Code(s): I48.0 - Paroxysmal atrial fibrillation (4) CAD (coronary artery disease), [place] coronary artery: Assessment and plan: Although patient had some symptoms of chest discomfort with her bradycardia her troponins have been negative and her EKG shows no acute injury pattern Qualifiers: Associated angina: without angina [place] vs. transplanted heart: [place] heart Qualified Code(s): I25.10 - Atherosclerotic heart disease of [place] coronary artery without angina pectoris History of Present Illness History of Present Illness Chief Complaint: weakness, dyspnea, slow HR, CP Narrative: 73 yr old female w/ hx of PAF controlled w/ Toprol XL and chronic anticoagulation w apixaban who also has hx of CAD, prior PCI remotely, who presented to the ED w/ symptoms of dyspnea, fatigue, slow HR and was found to be in Mobitz type II 2nd degree AV block. Troponin I were negative for NSTEMI, BNP was mildly elevated but clinical she was not in acute CHF.. The ED provider consulted w/ Dr. Pickard, cardiology who advised admission on telemetry w/ external pacer available but to hold her metoprolol. Patient remains in Mobitz type II 2nd degree AV block w/ heart rate in the 30's but w/ stable blood pressure and currently asymptomatic. Repeat troponin has remained normal. Her comorbidites include CAD, HFPEF (last echo 11/20/23 which showed normal LV and RV size and function w/ septal motion abnormalities w her known LBBB. No atrial enlargement and no significant valvular abnormalities and no pulmonary hypertension. She also has stage 3 CKD and DM type II requiring insulin. Her baseline BUN is around 40 and baseline creatinine is 2.0 but she presents w/ worsening azotemia w/ BUN 80 and creatinine 2.6. Review of Systems Constitutional Constitutional: Reports fatigue and Reports lethargy Cardiovascular Cardiovascular: Reports as per HPI, Reports chest pain, Reports lightheadedness, Reports dyspnea and Reports dyspnea on exertion Respiratory Respiratory: Reports dyspnea and Reports dyspnea on exertion Gastrointestinal Gastrointestinal: Reports abdominal pain, Reports nausea and Denies vomiting Genitourinary Genitourinary: Reports system reviewed and no additional complaints, except as documented Musculoskeletal Musculoskeletal: Reports system reviewed and no additional complaints, except as documented Integumentary/Breasts Skin/Breast: Reports system reviewed and no additional complaints, except as documented Neurologic Neurologic: Reports system reviewed and no additional complaints, except as documented Endocrine Endocrine: Reports as per HPI and Reports fatigue Hematologic/Lymphatic Hematologic/Lymphatic: Reports system reviewed and no additional complaints, except as documented Allergic/Immunologic Allergic/Immunologic: Reports system reviewed and no additional complaints, except as documented PFSH All Active Problems (Updated 03/18/24 @ 19:44 by Clarence Caban MD) Mobitz type 2 second degree atrioventricular block (Acute) Left bundle branch block (Acute) Posterior tibial tendon dysfunction (Acute) 02/03/16 Ankle pain (Acute 03/13/14) Numbness and tingling in left upper extremity (Acute) Hypoxia (Acute) Vaginal atrophy (Acute) Multiple falls (Acute) Chronic hypoxic respiratory failure (Acute) Obesity (Chronic) Nocturnal hypoxia (Acute) Pulmonary hypertension (Acute) Elevated serum creatinine (Acute) Vaginal itching (Acute) Osteoarthritis of right knee (Acute) Uterine polyp (Acute) Postmenopausal bleeding (Acute) Low magnesium level (Acute) Hyperparathyroidism (Acute) Hypocalcemia (Acute) Gout (Chronic) Right knee pain (Acute) Arthropathies (Acute) Skin tear (Acute) Congestive heart failure (Chronic) Preserved ejection fraction-followed by cardiology at [facility] Type 2 diabetes mellitus with diabetic nephropathy (Acute) Coronary artery disease (Chronic) Chronic kidney disease, stage 4 (severe) (Acute) 12/2021, Cr-2.5 Bimalleolar ankle fracture (Acute) s/p ORIF on 10/07 Cyst of lateral meniscus of right knee (Acute) Wound abscess (Acute) Medical History UTI (urinary tract infection) Chronic obstructive lung disease Palliative care patient Fracture of proximal end of right fibula Closed trimalleolar fracture of right ankle (10/03/21) Closed avulsion fracture of condyle of right femur Tear of lateral meniscus of right knee Medial meniscus tear CHF (congestive heart failure) IDDM (insulin dependent diabetes mellitus) Myoclonic epileptic seizures Heart failure with preserved ejection fraction, borderline, class III Pancreatic atrophy DVT (deep venous thrombosis) CAD (coronary artery disease), [place] coronary artery DNR no code (do not resuscitate) Constipation Atrial flutter Gram-positive bacteremia Diabetes mellitus (09/20/10) Tarsal tunnel syndrome (06/11/13) Anemia CKD (chronic kidney disease) stage 3, GFR 30-59 ml/min Cr about 2.5 Postmenopausal bleeding neg. endometrial biopsy Menopausal syndrome 07/11/03 Hepatomegaly 06/10/04 Abnormal mammography 08/10/06 Diabetes mellitus 09/20/10 Positive Microalbumin Tarsal tunnel syndrome 06/11/13 Hyperlipidemia (08/10/00) Spinal stenosis of lumbar region (02/15/16) Smoker (06/30/16) 01/17/17 1-2 cig/wk Rotator cuff syndrome (08/01/09) Renal impairment (07/11/03) ADRENAL MASS. F/U W/ KINLAW positive microalbumin Primary osteoarthritis of left hip (09/17/15) Postoperative wound dehiscence (12/23/15) Low back pain (04/10/03) DISC HERNIATION L4. MULTILEVEL DJD/SPINAL STENOSIS BY MRI; S/P surgery Hip joint inflamed (09/03/15) Hammer toe Left/right Folate deficiency (02/15/16) Carpal tunnel syndrome (08/10/06) BILATERAL R S/P SURGERY BMI 40.0-44.9, adult (12/02/14) Vitamin D deficiency Cervical spondylosis with myelopathy Atrial fibrillation Gout Carpal tunnel syndrome Spinal stenosis of lumbar region at multiple levels Restless leg syndrome Essential hypertension Surgical History S/P ORIF (open reduction internal fixation) fracture RT ANKLE S/P CABG (coronary artery bypass graft) (01/03/19) 4 vessel CABG and LA appendage excision, Dr. Nav Wang, [facility], [place], [place] History of gynecologic surgery endometrial biopsy-neg S/P carpal tunnel release H/O Spinal surgery multiple spine surgeries; low back x 2; She had multilevel DJD and spinal stenosis; disc herniation. 2008-cervical repair; C6-C7 disc; recurrent surgery. H/O arthrodesis 04/10/23 s/p RT ankle arthodesis at [facility]- External Fixator placed D/T complications from ORIF done at [facility] on 10/07/21 History of bilateral tubal ligation 09/11/80 S/P rotator cuff repair 09/11/80 History of orthopedic surgery 09/11/97 tarsal tunnel release S/P cholecystectomy 09/11/12 History of hip surgery 11/10/15 left hip arthroplasty 12/04/15-placement of wound VAC to left hip Status post incision and drainage 12/04/15 left hip surgical wound dehiscence and infection Cataract (01/07/14) FOLLOWED BY [facility] Family History Mother Diabetes Essential hypertension Personal history of malignant neoplasm KIDNEY/LIVER/BRAIN Heart disease Hyperlipidemia Stroke Asthma Father Diabetes Essential hypertension Personal history of malignant neoplasm BONE Heart disease Asthma Sister Diabetes Essential hypertension Depression Heart disease Asthma Grandfather No problems noted. Grandfather No problems noted. Grandmother Personal history of malignant neoplasm UTERINE Grandmother Diabetes Aunt Personal history of malignant neoplasm BREAST Brother Hyperlipidemia Stroke Sister Asthma Son Asthma Daughter Depression Asthma Daughter Asthma Daughter Depression Neoplasm Asthma Brother No problems noted. 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 Pets and animals: Yes Pets and animals: cat(s), dog(s) and horse(s) Current gender identity: female What is your relationship status?: Panel score (0-1 are the most socially isolated patients): 0 What type of physical activity do you participate in: none, walking and additional Details: would like to start now that it's warm Duration: 15-30 minutes/day Saniya/Jainism: Religious Special saniya needs: No Seatbelt use: always Do you feel safe at home: Yes Do you feel safe in your relationship?: Yes Additional Social history: lives at home with family Meds Allergies and Home Medications Allergies Allergy/AdvReac Type Severity Reaction Status Date / Time venom-honey bee Allergy Severe ANAPHYLAXIS Verified 03/18/24 13:57 oxycodone Allergy Mild Visual Unverified 03/18/24 13:57 Disturbances adhesive Allergy BLISTERS Verified 03/18/24 13:57 Home Medications Medication Instructions Recorded Confirmed Type lancets 33 gauge (OneTouch Delica #100 ea 12/18/18 02/20/24 Rx Lancets) lancets 25 gauge #100 ea 01/29/19 02/20/24 Rx albuterol sulfate 2.5 mg/3 mL 2.5 mg (3 mL) inhalation Q2H PRN 09/10/20 03/18/24 Rx (0.083 %) solution for nebulization PRN shortness of breath or wheezing #180 mL pen needle, diabetic 31 gauge x #450 ea 12/10/20 02/20/24 Rx 1/4 (1st Tier Unifine Pentips) blood sugar diagnostic (Blood #300 ea 04/08/21 02/20/24 Rx Glucose Test strips) acetaminophen 500 mg tablet 1,000 mg PO BID 11/15/22 03/18/24 History (Tylenol Extra Strength) lidocaine 4 % topical patch 1 patch topical DAILY PRN 05/12/23 03/18/24 History meclizine 12.5 mg tablet 12.5 mg PO TID PRN 05/12/23 03/18/24 History atorvastatin 40 mg tablet 40 mg PO DAILY #90 tab-caps 06/09/23 03/18/24 Rx cholecalciferol (vitamin D3) 25 25 mcg PO DAILY #90 caps 07/07/23 03/18/24 Rx mcg (1,000 unit) capsule fesoterodine 8 mg tablet,extended 8 mg PO DAILY #90 tabs 08/08/23 03/18/24 Rx release 24 hr magnesium chloride 71.5 mg 71.5 mg PO TID #270 tabs 08/30/23 03/18/24 Rx (magnesium chloride) tablet,delayed release (Slow-Mag) ropinirole 2 mg tablet 2 mg PO QPM PRN restless leg(s) 08/30/23 03/18/24 Rx #90 tabs isosorbide mononitrate 10 mg tablet 10 mg PO BID #180 tabs 09/18/23 03/18/24 Rx mhdhrk-rwqjylkf-sdkrgtp 1 cap PO TID #270 caps 09/18/23 03/18/24 Rx 6,000-19,000-30,000 unit capsule,delayed rel (Creon) spironolactone 25 mg tablet 25 mg PO BID #180 tabs 09/18/23 03/18/24 Rx metoprolol succinate 50 mg 50 mg PO DAILY #90 tabs 10/03/23 03/18/24 Rx tablet,extended release 24 hr ergocalciferol (vitamin D2) 1,250 50,000 unit PO QWEEK #13 caps 10/04/23 03/18/24 Rx mcg (50,000 unit) capsule nystatin 100,000 unit/gram topical 1 applic topical BID #60 grams 10/19/23 03/18/24 Rx powder budesonide 160 mcg-glycopyr 9 2 inh inhalation BID #10.7 grams 11/07/23 03/18/24 Rx mcg-formot 4.8 mcg/actuation HFA inhaler (Breztri Aerosphere) estradiol 0.01% (0.1 mg/gram) 1 g vaginal .twice weekly #42.5 11/14/23 03/18/24 Rx vaginal cream grams B-complex with vitamin C 1 tab PO DAILY #90 tabs 11/20/23 03/18/24 Rx omeprazole 40 mg capsule,delayed 40 mg PO DAILY #90 caps 01/15/24 03/18/24 Rx release allopurinol 100 mg tablet 100 mg PO QHS 02/13/24 03/18/24 History calcitriol 0.25 mcg capsule 0.25 mcg PO TID hypocalcemia 02/13/24 03/18/24 History cephalexin 500 mg capsule 500 mg PO TID osteomyelitis 02/13/24 03/18/24 History ondansetron 4 mg disintegrating 4 mg translingual Q8H PRN Nausea/ 02/13/24 03/18/24 History tablet vomiting potassium chloride 20 mEq 20 meq PO BID 02/14/24 03/18/24 History tablet,extended release(part/cryst) insulin glargine 100 unit/mL (3 40 unit (0.4 mL) subcut DAILY #60 02/15/24 03/18/24 Rx mL) subcutaneous pen (Basaglar mL KwikPen U-100 Insulin) apixaban 2.5 mg tablet (Eliquis) 2.5 mg PO BID #180 tabs 02/20/24 03/18/24 Rx aspirin 81 mg tablet,delayed 81 mg PO DAILY 02/20/24 03/18/24 History release (Adult Low Dose Aspirin) duloxetine 30 mg capsule,delayed 30 mg PO DAILY #90 tab-caps 02/20/24 03/18/24 Rx release epinephrine 0.3 mg/0.3 mL 0.3 mg (0.3 mL) IM ONCE #2 ea 02/20/24 03/18/24 Rx injection, auto-injector (EpiPen 2-Erick) insulin aspart U-100 100 unit/mL 10 unit (0.1 mL) subcut TID #45 mL 02/20/24 03/18/24 Rx (3 mL) subcutaneous pen (Novolog FlexPen U-100 Insulin aspart) levetiracetam 750 mg tablet 750 mg PO BID #180 tabs 02/21/24 03/18/24 Rx tramadol 50 mg tablet 50 mg PO BID PRN pain #60 tabs 02/21/24 03/18/24 Rx fluconazole 150 mg tablet 150 mg PO Q3D #5 tabs 03/07/24 03/18/24 Rx Exam Narrative Exam Narrative: Elderly female who is alert and orient x 3 appears to be in no acute respiratory distress Neck veins are flat neck is supple nontender normal carotid pulses but bradycardic Lungs are clear to auscultation Heart is regular but bradycardic no appreciable murmur rub Abdomen obese soft some mild tenderness but without guarding or rebound tenderness normal bowel sounds Lower extremities without peripheral cyanosis or edema capillary refills intact less than 3 seconds. There is deformity of the right ankle from previous ORIF of her right ankle. She has some tenderness over the right heel although there is no erythema and no increased warmth over the foot pedal pulses are intact Results Labs 03/18/24 13:35 03/18/24 13:35 Labs: Laboratory Results - last 24 hr 03/18/24 13:35 WBC 11.64 H RBC 4.46 Hgb 11.2 Hct 38.4 MCV 86 MCH 25.1 L MCHC 29.2 L RDW 17.7 H Plt Count 270 MPV 9.8 Immature Gran % 0.5 Neutrophils % 69.3 Lymphocytes % 15.6 Monocytes % 7.9 Eosinophils % 5.8 Basophils % 0.9 Nucleated RBC % 0.0 Absolute Neutrophils 8.07 H Absolute Lymphocytes 1.82 Absolute Monocytes 0.92 H Absolute Eosinophils 0.68 Absolute Basophils 0.10 Sodium 141 Potassium 4.8 Chloride 105 Carbon Dioxide 29.4 Anion Gap 6.6 BUN 80 H Creatinine 2.6 H Est GFR (CKD-EPI 2020) 19.14 Glucose 139 H Calcium 8.9 Magnesium 2.3 Total Bilirubin 0.38 AST 12 L ALT 26 Alkaline Phosphatase 91 Troponin I < 50 NT-Pro-B Natriuret Pep 736 H Total Protein 7.3 Albumin 3.7 TSH 2.62 Last Vital Signs Pulse 90 03/18/24 16:15 Resp 19 03/18/24 16:15 BP 107/33 L 03/18/24 16:15 Pulse Ox 99 03/18/24 13:48 Time Spent Time spent with Patient: 55-74 minutes Time was spent: preparing to see the patient(eg.review tests), obtaining and/or reviewing separately otained hiistory, ordering medications,tests, procedures, referring, communicating with other health primary care nurse, indepentently interpreting results, counseling the patient and care coordination
--- NOTE | 2024-03-18 18:14 | W.PCEDHO ---
Registration Status: ADM JERROD Primary Language: Preferred Language: [place] ED Information & Data Chief Complaint SOB 03/18/24 15:30 Triage Note Pt has been feeling unwell 03/18/24 13:29 since over the weekend; pt has had a 2 lb water wt. gain. Bilat LE edema, crackles and abdominal distension. Pt is on O2 at home chronically New Mobitz Type II heart block and hypotension per EMS Medical / Surgical History (Last Reviewed 02/14/24 @ 00:32 by Wade Trotter) Abnormal mammography Anemia Atrial fibrillation Atrial flutter BMI 40.0-44.9, adult (12/02/14) CAD (coronary artery disease), [place] coronary artery Carpal tunnel syndrome Carpal tunnel syndrome (08/10/06) Cervical spondylosis with myelopathy CHF (congestive heart failure) Chronic obstructive lung disease CKD (chronic kidney disease) stage 3, GFR 30-59 ml/min Closed avulsion fracture of condyle of right femur Closed trimalleolar fracture of right ankle (10/03/21) Constipation Diabetes mellitus Diabetes mellitus (09/20/10) DNR no code (do not resuscitate) DVT (deep venous thrombosis) Essential hypertension Folate deficiency (02/15/16) Fracture of proximal end of right fibula Gout Gram-positive bacteremia Hammer toe Heart failure with preserved ejection fraction, borderline, class III Hepatomegaly Hip joint inflamed (09/03/15) Hyperlipidemia (08/10/00) IDDM (insulin dependent diabetes mellitus) Low back pain (04/10/03) Medial meniscus tear Menopausal syndrome Myoclonic epileptic seizures Palliative care patient Pancreatic atrophy Postmenopausal bleeding Postoperative wound dehiscence (12/23/15) Primary osteoarthritis of left hip (09/17/15) Renal impairment (07/11/03) Restless leg syndrome Rotator cuff syndrome (08/01/09) Smoker (06/30/16) Spinal stenosis of lumbar region (02/15/16) Spinal stenosis of lumbar region at multiple levels Tarsal tunnel syndrome Tarsal tunnel syndrome (06/11/13) Tear of lateral meniscus of right knee UTI (urinary tract infection) Vitamin D deficiency (Last Reviewed 02/14/24 @ 00:32 by Waed Trotter) Cataract (01/07/14) H/O arthrodesis H/O Spinal surgery History of bilateral tubal ligation History of gynecologic surgery History of hip surgery History of orthopedic surgery S/P CABG (coronary artery bypass graft) (01/03/19) S/P carpal tunnel release S/P cholecystectomy S/P ORIF (open reduction internal fixation) fracture S/P rotator cuff repair Status post incision and drainage Most Recent Vital Signs Pulse 101 H 03/18/24 17:48 Pulse 33 L 03/18/24 17:50 Respiratory Rate 13 03/18/24 17:50 Respiratory Effort Non-Labored, Short of Breath 03/18/24 13:48 Respiratory Depth Normal 03/18/24 13:48 Respiratory Pattern Normal 03/18/24 13:48 Blood Pressure 100/44 L 03/18/24 17:48 Blood Pressure Mean 53 03/18/24 17:48 Blood Pressure Position Supine 03/18/24 13:48 Pulse Oximetry 98 03/18/24 17:50 Oxygen Delivery Method Room Air 03/18/24 13:48 Oxygen Flow Rate 2 03/18/24 13:29 Allergies venom-honey bee Allergy (Severe, Verified 03/18/24 13:57) ANAPHYLAXIS oxycodone Allergy (Mild, Unverified 03/18/24 13:57) Visual Disturbances delirious adhesive Allergy (Verified 03/18/24 13:57) BLISTERS Precautions Isolation Standard precaution 03/18/24 13:48 IV IV Catheter Type [Right Hand] Peripheral IV IV Catheter Type [Left Peripheral IV Antecubital] IV Catheter Gauge [Right Hand] 20 IV Catheter Gauge [Left 18 Antecubital] Diagnostics 03/18/24 Range/Units 13:35 WBC 11.64 H (4.4-10.8) 10^3/uL RBC 4.46 (3.93-5.22) 10^6/uL Hgb 11.2 (11.2-15.7) g/dL Hct 38.4 (36.0-46.0) % MCV 86 (80-95) fL MCH 25.1 L (27.0-33.0) pg MCHC 29.2 L (32.0-36.0) % RDW 17.7 H (11.7-14.6) % Plt Count 270 (130-400) 10^3/uL MPV 9.8 (8.0-11.0) fL Immature Gran % 0.5 % Neutrophils % 69.3 % Lymphocytes % 15.6 % Monocytes % 7.9 % Eosinophils % 5.8 % Basophils % 0.9 % Nucleated RBC % 0.0 (0.0-0.3) % Absolute Neutrophils 8.07 H (1.2-6.7) 10^3/uL Absolute Lymphocytes 1.82 (1.2-3.4) 10^3/uL Absolute Monocytes 0.92 H (0.1-0.8) 10^3/uL Absolute Eosinophils 0.68 (0.0-0.7) 10^3/uL Absolute Basophils 0.10 (0.0-0.2) 10^3/uL Sodium 141 (136-145) mmol/L Potassium 4.8 (3.5-5.1) mmol/L Chloride 105 (98-107) mmol/L Carbon Dioxide 29.4 (21.0-32.0) mmol/L Anion Gap 6.6 (3-11) mmol/L BUN 80 H (7-18) mg/dL Creatinine 2.6 H (0.55-1.02) mg/dL Est GFR (CKD-EPI 2020) 19.14 (mL/min/1.73m2) Glucose 139 H (74-106) mg/dL Calcium 8.9 (8.5-10.1) mg/dL Magnesium 2.3 (1.8-2.4) mg/dL Total Bilirubin 0.38 (0.2-1.0) mg/dL AST 12 L (15-37) U/L ALT 26 (14-59) U/L Alkaline Phosphatase 91 (46-116) U/L Troponin I < 50 (< or =60) ng/L NT-Pro-B Natriuret Pep 736 H (<300) pg/mL Total Protein 7.3 (6.4-8.2) g/dL Albumin 3.7 (3.4-5.0) g/dL TSH 2.62 (0.36-3.74) uIU/mL Intake and Output - 24 Hour Total 03/18/24 13:16 thru 03/18/24 13:29 Weight 117.934 kg Falls Risk Assessment History of Falls Previous History 03/18/24 13:48 Fall Total Score 15 03/18/24 13:48 Level of Risk Standard/Low Risk 03/18/24 13:48 v v v v v v v v v Sending and/or Receiving Nurses: Please use comment section below to note any information pertinent to the patient hand-off not included above. Information / Comments: Report given to ICU nurse Rajwinder as well. Unusual handoff as necessitated by patient safety. Offered ICU to stay to support. Pt transported to ICU by this nurse via stretcher with pacer pads in place (not pacing, but in place), telemetry and on oxygen @ 2 lpm. Alert and oriented. ICU nurse aware posterior surface skin check and LS were not auscultated by this nurse during transition. Care accepted. Report received from: Andree Airplane Tube Builder.
--- NOTE | 2024-03-18 18:30 | RT.EKG_ITS ---
APPROVED REPORT Exam: Resting ECG Reason for Exam: Mobitz 2 second degree AV block Patient Location: I HR:33 bpm ECG Measurements Heart Rate 33 AXIS VT 198 P 24 QRSd 158 QRS 6 QT 551 T 131 QTc 409 Conclusion 2:1 AV block.. LBBB.
[2024-03-18] MEDS: Lactated Ringers 1,000 ML 100 ML IV (19:30)
[2024-03-18 19:36] LABS: Troponin I < 50 ng/L (< or =60)
[2024-03-18] MEDS: Magnesium Chloride 64 MG TABCR PO (21:42)
[2024-03-18] MEDS: rOPINIRole 1 MG TAB 2 MG PO (21:42)
[2024-03-18] MEDS: traMADol 50 MG TAB PO (21:42)
[2024-03-18] MEDS: Allopurinol 100 MG TAB PO (21:43)
[2024-03-18] MEDS: Apixaban 2.5 MG TAB 5 MG PO (21:43)
[2024-03-18] MEDS: Acetaminophen 500 MG TAB 1000 MG PO (21:43)
[2024-03-18] MEDS: levETIRAcetam 500 MG TAB 750 MG PO (21:43)
[2024-03-18] MEDS: Cephalexin 500 MG CAP PO (21:51)
[2024-03-19] VITALS (47 sets, daily range): BP systolic 83–145; BP diastolic 26–98; PULSE 32–106; RESP 13–30; TEMP 36.6–36.7; O2SAT 9–99
[2024-03-19] MEDS: traMADol 50 MG TAB PO ×2 (04:30→13:28)
[2024-03-19] MEDS: Miconazole 2% Topical Powder 85 GM BTL (04:43)
[2024-03-19] MEDS: Lactated Ringers 1,000 ML 100 ML IV (05:24)
[2024-03-19 06:40] LABS: Abs Immature Grans 0.03 10^3/uL (0.0-0.06); Absolute Basophil Count 0.09 10^3/uL (0.0-0.2); Absolute Eosinophil Count 0.61 10^3/uL (0.0-0.7); Absolute Lymphocyte Count 1.91 10^3/uL (1.2-3.4); Absolute Monocyte Count 0.91 10^3/uL (0.1-0.8); Absolute Neutrophil Count 5.81 10^3/uL (1.2-6.7); Eosinophils % 6.5 %; HCT 36.1 % (36.0-46.0); HGB 10.7 g/dL (11.2-15.7); Immature Grans % 0.3 %; Lymphocytes % 20.4 %; MCH 25.7 pg (27.0-33.0); MCHC 29.6 % (32.0-36.0); MCV 87 fL (80-95); MPV 10.4 fL (8.0-11.0); Monocytes % 9.7 %; Neutrophils % 62.1 %; Platelet Count 244 10^3/uL (130-400); RBC 4.16 10^6/uL (3.93-5.22); RDW 17.5 % (11.7-14.6); RDW-SD 55.9 fL; WBC 9.36 10^3/uL (4.4-10.8)
[2024-03-19 07:06] LABS: ALT 21 U/L (14-59); AST 11 U/L (15-37); Albumin 3.1 g/dL (3.4-5.0); Alkaline Phosphatase 90 U/L (46-116); Anion Gap 4.5 mmol/L (3-11); BUN 74 mg/dL (7-18); CO2 29.5 mmol/L (21.0-32.0); CREATININE 2.7 mg/dL (0.55-1.02); Calcium 8.7 mg/dL (8.5-10.1); Chloride 107 mmol/L (98-107); Estimated GFR 18.29 (mL/min/1.73m2); Glucose 149 mg/dL (74-106); Potassium 4.2 mmol/L (3.5-5.1); Sodium 141 mmol/L (136-145); Total Protein 6.4 g/dL (6.4-8.2)
--- NOTE | 2024-03-19 08:42 | W.PULMCC ---
General Date of Service Date of service: 03/19/24 Time of Service: 12:07 Admit Date Admit Date: 03/18/2024 Reason for Admission to ICU: SOB, Mobitz II AVB. HPI 73 yr old female w/ hx of PAF controlled w/ Toprol XL and chronic anticoagulation w apixaban, CAD, prior PCI remotely, DM type II, COPD O2 dep 2L QHS, who presented to the ED w/ symptoms of dyspnea, fatigue, slow HR and was found to be in Mobitz type II 2nd degree AV block. Admitted for further observation in the ICU. Beta kelly held. Overnight she continued to experience chest pain and SOB. Cardiology evaluation this am recommended PM placement. transfer to tertiary care requested. No hemodynamic changes overnight. MAP stable. Good UO Receiving 100ml/hr LR Assessment and Plan Assessment and plan (1) Mobitz type 2 second degree atrioventricular block: Status: Acute Assessment and plan: Ongoing symptoms but hemodynamically stable. Plan for PM placement and tx to tertiary care enter. Further plan per cardiology. would recommend Echo, DC IVF to avoid volume overload. (2) Chronic obstructive lung disease: Assessment and plan: No active issues. O2 needs at baseline. Qualifiers: COPD type: COPD with acute lower respiratory infection Qualified Code(s): J44.0 - Chronic obstructive pulmonary disease with acute lower respiratory infection (3) Chronic kidney disease, stage 4 (severe): Status: Acute Assessment and plan: mild acute on chronic renal injury but good UO. Cont w/ I/Os. May DC IVF once gfr close to baseline. Recommendations I&O: Intake & Output 03/16/24 03/17/24 03/18/24 03/19/24 23:59 23:59 23:59 23:59 Intake Total 400 / 400 1000 / 1000 Output Total 1300 / 1300 Balance 400 / 400 -300 / -300 Weight 121.1 kg 121.3 kg Date of Last Bowel Movement: 03/18/24 Code Status: Resuscitation Status DNR/DNI Subjective Critical and life-threatening events over the past 24 hours: Some ongoing CP, SOB Exam Narrative Exam Narrative: AOx3 NAD, no CP this am upon assessment Lungs CTA BL CV geraldine S1S2 Most Recent VS/Results Last Vital Signs Temp 36.7 C 03/19/24 02:00 Pulse 40 L 03/19/24 06:47 Resp 25 H 03/19/24 07:02 BP 119/37 L 03/19/24 07:02 Pulse Ox 98 03/19/24 07:02 Laboratory Results - last 24 hr 03/18/24 03/18/24 03/19/24 13:35 19:14 06:00 WBC 11.64 H 9.36 RBC 4.46 4.16 Hgb 11.2 10.7 L Hct 38.4 36.1 MCV 86 87 MCH 25.1 L 25.7 L MCHC 29.2 L 29.6 L RDW 17.7 H 17.5 H Plt Count 270 244 MPV 9.8 10.4 Immature Gran % 0.5 0.3 Neutrophils % 69.3 62.1 Lymphocytes % 15.6 20.4 Monocytes % 7.9 9.7 Eosinophils % 5.8 6.5 Basophils % 0.9 1.0 Nucleated RBC % 0.0 0.0 Absolute Neutrophils 8.07 H 5.81 Absolute Lymphocytes 1.82 1.91 Absolute Monocytes 0.92 H 0.91 H Absolute Eosinophils 0.68 0.61 Absolute Basophils 0.10 0.09 Sodium 141 141 Potassium 4.8 4.2 Chloride 105 107 Carbon Dioxide 29.4 29.5 Anion Gap 6.6 4.5 BUN 80 H 74 H Creatinine 2.6 H 2.7 H Est GFR (CKD-EPI 2020) 19.14 18.29 Glucose 139 H 149 H Calcium 8.9 8.7 Magnesium 2.3 Total Bilirubin 0.38 0.30 AST 12 L 11 L ALT 26 21 Alkaline Phosphatase 91 90 Troponin I < 50 < 50 NT-Pro-B Natriuret Pep 736 H Total Protein 7.3 6.4 Albumin 3.7 3.1 L TSH 2.62 Review of Systems All systems reviewed & are unremarkable except as noted in HPI and below Time spent with patient Time spent in Critical Care: 30 Time spent in Critical care included: Chart review, Documenting critically ill care and Time at immediate bedside Note: 30min
[2024-03-19] MEDS: Normal Saline Flush 10 ML SYR IVP (08:43)
--- NOTE | 2024-03-19 08:43 | W.CARDCONSUL ---
Date of service: 03/19/24 Time of Service: 08:43 Assessment and Plan Assessment and plan (1) Mobitz type 2 second degree atrioventricular block: Status: Acute Assessment and plan: Patient clearly has conduction system disease. This is not related to her beta-kelly, which was prescribed for paroxysmal atrial fibrillation. She needs a permanent pacemaker. This was discussed, patient is agreeable to transfer to [facility]. Recommendations were discussed with Dr. Caban (2) Left bundle branch block: Status: Acute Assessment and plan: Chronic (3) Coronary artery disease: Status: Chronic Assessment and plan: No recent anginal symptoms Qualifiers: Coronary Disease-Associated Artery/Lesion type: [place] artery [place] vs. transplanted heart: [place] heart Associated angina: without angina Qualified Code(s): I25.10 - Atherosclerotic heart disease of [place] coronary artery without angina pectoris History of Present Illness History of Present Illness Chief Complaint: AV block Narrative: This is 1 of multiple admissions for this 73-year-old woman who was referred to the emergency room by her home health care provider . she has multiple medical problems which include coronary disease, prior bypass surgery in 2019, paroxysmal atrial fibrillation, heart failure with preserved ejection fraction and chronic hypoxic respiratory failure. Patient reports that she began to feel much worse than her baseline about a week prior to presentation. She had a routine home health visit where the nurse examined her, called primary care and she was sent to the emergency room. She was found to have AV block, initially 2-1 with heart rates in the 30s. She has a chronic LBBB. Her home metoprolol was withheld and she was admitted overnight but high-grade AV block has persisted. She has otherwise been hemodynamically stable Review of Systems Cardiovascular Cardiovascular: Reports as per HPI, Reports chest pain at rest, Reports leg edema, Denies radiating jaw, neck or arm pain, Denies palpitations and Reports dyspnea Respiratory Respiratory: Reports dyspnea Endocrine Endocrine: Denies palpitations PFSH All Active Problems Mobitz type 2 second degree atrioventricular block (Acute) Left bundle branch block (Acute) Posterior tibial tendon dysfunction (Acute) 02/03/16 Ankle pain (Acute 03/13/14) Numbness and tingling in left upper extremity (Acute) Hypoxia (Acute) Vaginal atrophy (Acute) Multiple falls (Acute) Chronic hypoxic respiratory failure (Acute) Obesity (Chronic) Nocturnal hypoxia (Acute) Pulmonary hypertension (Acute) Elevated serum creatinine (Acute) Vaginal itching (Acute) Osteoarthritis of right knee (Acute) Uterine polyp (Acute) Postmenopausal bleeding (Acute) Low magnesium level (Acute) Hyperparathyroidism (Acute) Hypocalcemia (Acute) Gout (Chronic) Right knee pain (Acute) Arthropathies (Acute) Skin tear (Acute) Congestive heart failure (Chronic) Preserved ejection fraction-followed by cardiology at [facility] Type 2 diabetes mellitus with diabetic nephropathy (Acute) Coronary artery disease (Chronic) Chronic kidney disease, stage 4 (severe) (Acute) 12/2021, Cr-2.5 Bimalleolar ankle fracture (Acute) s/p ORIF on 10/07 Cyst of lateral meniscus of right knee (Acute) Wound abscess (Acute) Medical History UTI (urinary tract infection) Chronic obstructive lung disease Palliative care patient Fracture of proximal end of right fibula Closed trimalleolar fracture of right ankle (10/03/21) Closed avulsion fracture of condyle of right femur Tear of lateral meniscus of right knee Medial meniscus tear CHF (congestive heart failure) IDDM (insulin dependent diabetes mellitus) Myoclonic epileptic seizures Heart failure with preserved ejection fraction, borderline, class III Pancreatic atrophy DVT (deep venous thrombosis) CAD (coronary artery disease), [place] coronary artery DNR no code (do not resuscitate) Constipation Atrial flutter Gram-positive bacteremia Diabetes mellitus (09/20/10) Tarsal tunnel syndrome (06/11/13) Anemia CKD (chronic kidney disease) stage 3, GFR 30-59 ml/min Cr about 2.5 Postmenopausal bleeding neg. endometrial biopsy Menopausal syndrome 07/11/03 Hepatomegaly 06/10/04 Abnormal mammography 08/10/06 Diabetes mellitus 09/20/10 Positive Microalbumin Tarsal tunnel syndrome 06/11/13 Hyperlipidemia (08/10/00) Spinal stenosis of lumbar region (02/15/16) Smoker (06/30/16) 01/17/17 1-2 cig/wk Rotator cuff syndrome (08/01/09) Renal impairment (07/11/03) ADRENAL MASS. F/U W/ KINLAW positive microalbumin Primary osteoarthritis of left hip (09/17/15) Postoperative wound dehiscence (12/23/15) Low back pain (04/10/03) DISC HERNIATION L4. MULTILEVEL DJD/SPINAL STENOSIS BY MRI; S/P surgery Hip joint inflamed (09/03/15) Hammer toe Left/right Folate deficiency (02/15/16) Carpal tunnel syndrome (08/10/06) BILATERAL R S/P SURGERY BMI 40.0-44.9, adult (12/02/14) Vitamin D deficiency Cervical spondylosis with myelopathy Atrial fibrillation Gout Carpal tunnel syndrome Spinal stenosis of lumbar region at multiple levels Restless leg syndrome Essential hypertension Surgical History S/P ORIF (open reduction internal fixation) fracture RT ANKLE S/P CABG (coronary artery bypass graft) (01/03/19) 4 vessel CABG and LA appendage excision, Dr. Nav Wang, [facility] [place], [place], [place] History of gynecologic surgery endometrial biopsy-neg S/P carpal tunnel release H/O Spinal surgery multiple spine surgeries; low back x 2; She had multilevel DJD and spinal stenosis; disc herniation. 2008-cervical repair; C6-C7 disc; recurrent surgery. H/O arthrodesis 04/10/23 s/p RT ankle arthodesis at [facility] [place]- External Fixator placed D/T complications from ORIF done at [facility] on 10/07/21 History of bilateral tubal ligation 09/11/80 S/P rotator cuff repair 09/11/80 History of orthopedic surgery 09/11/97 tarsal tunnel release S/P cholecystectomy 09/11/12 History of hip surgery 11/10/15 left hip arthroplasty 12/04/15-placement of wound VAC to left hip Status post incision and drainage 12/04/15 left hip surgical wound dehiscence and infection Cataract (01/07/14) FOLLOWED BY OPTICAL EXPRESSIONS Family History Mother Diabetes Essential hypertension Personal history of malignant neoplasm KIDNEY/LIVER/BRAIN Heart disease Hyperlipidemia Stroke Asthma Father Diabetes Essential hypertension Personal history of malignant neoplasm BONE Heart disease Asthma Sister Diabetes Essential hypertension Depression Heart disease Asthma Grandfather No problems noted. Grandfather No problems noted. Grandmother Personal history of malignant neoplasm UTERINE Grandmother Diabetes Aunt Personal history of malignant neoplasm BREAST Brother Hyperlipidemia Stroke Sister Asthma Son Asthma Daughter Depression Asthma Daughter Asthma Daughter Depression Neoplasm Asthma Brother No problems noted. Social History Smoking/Tobacco Use Status: Former Tobacco Use Quit Date: 12/10/18 Tobacco: How many years used: 20 Smoking risk assessment performed?: Yes Alcohol Intake: never Drug use: Never Substance use type: does not use Household members: children and other Details: 2 Housing: apartment Number of Children: 4 number of grandchildren: 4 current occupation: [employer] Pets and animals: Yes Pets and animals: cat(s), dog(s) and horse(s) Current gender identity: female What is your relationship status?: Panel score (0-1 are the most socially isolated patients): 0 What type of physical activity do you participate in: none, walking and additional Details: would like to start now that it's warm Duration: 15-30 minutes/day Saniya/Jehovah'S Witness: Anabaptism Special saniya needs: No Seatbelt use: always Do you feel safe at home: Yes Do you feel safe in your relationship?: Yes Additional Social history: lives at home with family Exam Const Other: Obese woman resting comfortably in bed. Alert oriented and appropriate. Remainder of physical examination was not conducted Results Last Vital Signs Temp 36.7 C 03/19/24 02:00 Pulse 40 L 03/19/24 06:47 Resp 25 H 03/19/24 07:02 BP 119/37 L 03/19/24 07:02 Pulse Ox 98 03/19/24 07:02 Labs 03/19/24 06:00 03/19/24 06:00 Labs: Laboratory Results - last 24 hr 03/18/24 03/18/24 03/19/24 13:35 19:14 06:00 WBC 11.64 H 9.36 RBC 4.46 4.16 Hgb 11.2 10.7 L Hct 38.4 36.1 MCV 86 87 MCH 25.1 L 25.7 L MCHC 29.2 L 29.6 L RDW 17.7 H 17.5 H Plt Count 270 244 MPV 9.8 10.4 Immature Gran % 0.5 0.3 Neutrophils % 69.3 62.1 Lymphocytes % 15.6 20.4 Monocytes % 7.9 9.7 Eosinophils % 5.8 6.5 Basophils % 0.9 1.0 Nucleated RBC % 0.0 0.0 Absolute Neutrophils 8.07 H 5.81 Absolute Lymphocytes 1.82 1.91 Absolute Monocytes 0.92 H 0.91 H Absolute Eosinophils 0.68 0.61 Absolute Basophils 0.10 0.09 Sodium 141 141 Potassium 4.8 4.2 Chloride 105 107 Carbon Dioxide 29.4 29.5 Anion Gap 6.6 4.5 BUN 80 H 74 H Creatinine 2.6 H 2.7 H Est GFR (CKD-EPI 2020) 19.14 18.29 Glucose 139 H 149 H Calcium 8.9 8.7 Magnesium 2.3 Total Bilirubin 0.38 0.30 AST 12 L 11 L ALT 26 21 Alkaline Phosphatase 91 90 Troponin I < 50 < 50 NT-Pro-B Natriuret Pep 736 H Total Protein 7.3 6.4 Albumin 3.7 3.1 L TSH 2.62
[2024-03-19] MEDS: Insulin Glargine 300 UNITS/3 ML PEN 40 UNITS SC (08:44)
[2024-03-19] MEDS: Insulin Aspart 300 UNITS/3 ML PEN SC (08:44)
[2024-03-19] MEDS: Insulin Aspart 300 UNITS/3 ML PEN 10 UNITS SC (08:46)
[2024-03-19] MEDS: Nystatin POWDER 15 GM JAR TP (08:46)
[2024-03-19] MEDS: levETIRAcetam 500 MG TAB 750 MG PO (08:47)
[2024-03-19] MEDS: Vitamins B Comp w/C TAB 1 TAB PO (08:47)
[2024-03-19] MEDS: Atorvastatin 40 MG TAB PO (08:47)
[2024-03-19] MEDS: Acetaminophen 500 MG TAB 1000 MG PO (08:47)
[2024-03-19] MEDS: Omeprazole 20 MG CAPCR 40 MG PO (08:48)
[2024-03-19] MEDS: Creon, Lipase 6,000 CAPCR 1 CAP PO ×2 (08:49→12:20)
[2024-03-19] MEDS: Cephalexin 500 MG CAP PO ×2 (08:49→14:22)
[2024-03-19] MEDS: Cholecalciferol (Vitamin D3) 1,000 UNIT TAB 1000 UNITS PO (08:50)
[2024-03-19] MEDS: Magnesium Chloride 64 MG TABCR PO ×2 (08:50→14:22)
[2024-03-19] MEDS: DULoxetine 30 MG CAP PO (08:50)
[2024-03-19] MEDS: Calcitriol 0.25 MCG CAP PO ×2 (08:50→14:22)
--- NOTE | 2024-03-19 09:15 | RT.EKG_ITS ---
APPROVED REPORT Exam: Resting ECG Reason for Exam: Mobitz II 2nd degree AV block Patient Location: I HR:39 bpm ECG Measurements Heart Rate 39 AXIS [place] 193 P 72 QRSd 151 QRS 4 QT 520 T 99 QTc 419 Conclusion A-V dissociation/high-grade AV block Left bundle branch block...QRSd>120, broad/notched R
--- NOTE | 2024-03-19 09:26 | W.PM.PROGNOT ---
Date of Service Date of service: 03/19/24 Time of Service: 09:27 Assessment and Plan Assessment and plan (1) Mobitz type 2 second degree atrioventricular block: Status: Acute Assessment and plan: patient remains in 2nd degree AV block Mobitz type II and she is symptomatic w/ recurrent CP and dyspnea despite her not being in acute HF and not having ACS. She needs pacemaker placement and I have contacted [facility] transfer center and I am awaiting their review of her EKG and rhythm strips so that hopefuly they will accept her in transfer. I have made her NPO and will hold her apixaban and ASA in anticipation of procedure being done later today. If they are not going to proceed today then will give her ASA and I will check / [facility] cards about holding her apixaban. (2) [id number] kidney injury: Status: Inactive Qualifiers: Acute renal failure type: unspecified Chronic kidney disease stage: unspecified stage Qualified Code(s): N17.9 - Acute kidney failure, unspecified; N18.9 - Chronic kidney disease, unspecified (3) Atrial fibrillation: Status: Inactive Assessment and plan: No significant change in her BUN and creatinine despite witholding diuretics and give LR overnight. BUN 74 and creatinine 2.7 (her baseline appears to be BUN 40 TO 50 and creatinine of 2), I would VEXUS her kidneys and liver however my US device is down for repairs. Clinically she does not appear to be in acute congestion, i.e. clear lungs, no pedal/leg edema, although she says that she has gained weight and her abdomen she says is more swollen As for per PAF, she has been on apixaban at reduced dose of 2.5 mg bid when in fact her dose should be 5 mg bid (despite her CKD). Qualifiers: Atrial fibrillation type: paroxysmal Qualified Code(s): I48.0 - Paroxysmal atrial fibrillation (4) CAD (coronary artery disease), [place] coronary artery: Assessment and plan: Patient says that she has had intermittent chest pressure since admission but her troponin I have been normal and she does not appear to be in CHF. We have not ruled out P.E. but do not have CTA available yesterday or today. She has been on apixaban all along albeit at reduced dosing, so unlikely she has P.E., she has no signs or symptoms of DVT. Qualifiers: [place] vs. transplanted heart: [place] heart Associated angina: without angina Qualified Code(s): I25.10 - Atherosclerotic heart disease of [place] coronary artery without angina pectoris Subjective Subjective Interval history since last seen: Patient states that she still is having intermittent feelings of chest heaviness, like an elephant standing on my chest which comes and goes. Her heart rhythm remains in Mobitz type II 2nd degree AV block despite witholding her Toprol XL for 24 hours (last dose was yesterday morning prior to coming to the hospital). She has hx of CAD w/ prior PCI however her troponin I have remained negative and her EKG has not shown any acute injury I explained to the patient that she remains in heart block and will need a pacemaker. She is agreeble to transfer to tertiary care center for pacer placment. I have reached out to [facility] transfer center and requested transfer.. Exam Narrative Exam Narrative: Ann-Marie appears to be calm, no acute distress, alert and oriented, currently pain free LUngs: clear anteriorly and posteriorly Heart; bradycardic Abdomen: soft, normal bowel sounds, some mild tenderness but no rebound tenderness and no guarding Extremities: no pedal/ankle or leg edema Objective Last Vital Signs Temp 36.7 C 03/19/24 02:00 Pulse 40 L 03/19/24 06:47 Resp 25 H 03/19/24 07:02 BP 119/37 L 03/19/24 07:02 Pulse Ox 98 03/19/24 07:02 Laboratory Results - last 24 hr 03/18/24 03/18/24 03/19/24 13:35 19:14 06:00 WBC 11.64 H 9.36 RBC 4.46 4.16 Hgb 11.2 10.7 L Hct 38.4 36.1 MCV 86 87 MCH 25.1 L 25.7 L MCHC 29.2 L 29.6 L RDW 17.7 H 17.5 H Plt Count 270 244 MPV 9.8 10.4 Immature Gran % 0.5 0.3 Neutrophils % 69.3 62.1 Lymphocytes % 15.6 20.4 Monocytes % 7.9 9.7 Eosinophils % 5.8 6.5 Basophils % 0.9 1.0 Nucleated RBC % 0.0 0.0 Absolute Neutrophils 8.07 H 5.81 Absolute Lymphocytes 1.82 1.91 Absolute Monocytes 0.92 H 0.91 H Absolute Eosinophils 0.68 0.61 Absolute Basophils 0.10 0.09 Sodium 141 141 Potassium 4.8 4.2 Chloride 105 107 Carbon Dioxide 29.4 29.5 Anion Gap 6.6 4.5 BUN 80 H 74 H Creatinine 2.6 H 2.7 H Est GFR (CKD-EPI 2020) 19.14 18.29 Glucose 139 H 149 H Calcium 8.9 8.7 Magnesium 2.3 Total Bilirubin 0.38 0.30 AST 12 L 11 L ALT 26 21 Alkaline Phosphatase 91 90 Troponin I < 50 < 50 NT-Pro-B Natriuret Pep 736 H Total Protein 7.3 6.4 Albumin 3.7 3.1 L TSH 2.62 Time Spent with Patient Time Spent with Patient: >50 minutes Time was spent: preparing to see the patient(eg.review tests), ordering medications,tests, procedures, referring, communicating with other health transition of care specialist (calls to [facility], discussion w/ ICU nurses), indepentently interpreting results, counseling the patient and care coordination
[2024-03-19 09:43] LABS: Lab Add On Test DONE
[2024-03-19 10:08] LABS: NT-proBNP 983 pg/mL (<300); Troponin I < 50 ng/L (< or =60)
[2024-03-19] MEDS: Isosorbide Mononitrate 10 MG TAB PO (10:09)
--- NOTE | 2024-03-19 11:02 | INITIAL_ITS ---
Date of service: 03/19/24 Time of Service: 11:02 Care Management Initial Assmt Initial Assessment Reason for Hospitalization: Mobitz type 2 second degree atrioventricular block Functional Status/Living Situation Patient Presentation: Bibi was awake and lying in bed when CM met with her. She is pleasant and talks to CM about her very low heart rates and the plan for her to transfer to [facility] [place] pac[place]. CM will follow. Bibi's phone is , phone environmental remediation consultant is provided. She is able to communicate with family and is expecting her s/o very soon. Town of Residence: [place] Resides with: Other (Significant other Ayaan) Significant Other/Family: Local Natural Supports: Daughter's Savannah and Melony and Sister Sandy, son lives in [place] Employment Status: Retired (2019) Instrumental Activities of Daily Living (ADLs): Independent Physical Functioning/Mobility Assistive Device: Lives in a handicapped accessible apartment Bedside Commode Raised Toilet Seat Grab bars shower chair wheelchair Walker Advance Directives Advance Directives: Do you have an Advance Directive: Y 10/18/21 08:27 AD On File at [facility]: Y 10/18/21 08:27 Date Asked 11/18/19 03/19/24 08:56 AD Date Reviewed 03/18/24 03/19/24 08:56 COLST On File at [facility] Yes 10/18/21 08:27 COLST Date Scanned 01/15/19 10/18/21 08:27 Code Status Resuscitation Status DNR/DNI Portal Pt does not currently have a portal and education provided: Yes Insurance Coverage/Financial Issues Insurance: [facility] Medicare Medicaid ACO Member: No Care Team Visit Care Team Role Provider Type Laisha Mcmahon MD, [place] Primary Care Provider , [facility] Darshan Campos MD Emergency Provider [facility] STAFF PHYSICIAN Clarence Caban MD Admit Provider [facility] STAFF PHYSICIAN Attending Provider Discharge Patient/Family Education Needs: Review discharge instructions, discuss Ask Me Three Transportation: EMS Plan: Per , [facility] transfer center has been contacted and transfer is requested. PFSH All Active Problems Mobitz type 2 second degree atrioventricular block (Acute ~03/19/24) Left bundle branch block (Acute) Posterior tibial tendon dysfunction (Acute) 02/03/16 Ankle pain (Acute 03/13/14) Numbness and tingling in left upper extremity (Acute) Hypoxia (Acute) Vaginal atrophy (Acute) Multiple falls (Acute) Chronic hypoxic respiratory failure (Acute) Obesity (Chronic) Nocturnal hypoxia (Acute) Pulmonary hypertension (Acute) Elevated serum creatinine (Acute) Vaginal itching (Acute) Osteoarthritis of right knee (Acute) Uterine polyp (Acute) Postmenopausal bleeding (Acute) Low magnesium level (Acute) Hyperparathyroidism (Acute) Hypocalcemia (Acute) Gout (Chronic) Right knee pain (Acute) Arthropathies (Acute) Skin tear (Acute) Congestive heart failure (Chronic) Preserved ejection fraction-followed by cardiology at [facility] Type 2 diabetes mellitus with diabetic nephropathy (Acute) Coronary artery disease (Chronic) Chronic kidney disease, stage 4 (severe) (Acute) 12/2021, Cr-2.5 Bimalleolar ankle fracture (Acute) s/p ORIF on 10/07 Cyst of lateral meniscus of right knee (Acute) Wound abscess (Acute) Medical History UTI (urinary tract infection) Chronic obstructive lung disease Palliative care patient Fracture of proximal end of right fibula Closed trimalleolar fracture of right ankle (10/03/21) Closed avulsion fracture of condyle of right femur Tear of lateral meniscus of right knee Medial meniscus tear CHF (congestive heart failure) IDDM (insulin dependent diabetes mellitus) Myoclonic epileptic seizures Heart failure with preserved ejection fraction, borderline, class III Pancreatic atrophy DVT (deep venous thrombosis) CAD (coronary artery disease), zuni coronary artery DNR no code (do not resuscitate) Constipation Atrial flutter Gram-positive bacteremia Diabetes mellitus (09/20/10) Tarsal tunnel syndrome (06/11/13) Anemia CKD (chronic kidney disease) stage 3, GFR 30-59 ml/min Cr about 2.5 Postmenopausal bleeding neg. endometrial biopsy Menopausal syndrome 07/11/03 Hepatomegaly 06/10/04 Abnormal mammography 08/10/06 Diabetes mellitus 09/20/10 Positive Microalbumin Tarsal tunnel syndrome 06/11/13 Hyperlipidemia (08/10/00) Spinal stenosis of lumbar region (02/15/16) Smoker (06/30/16) 01/17/17 1-2 cig/wk Rotator cuff syndrome (08/01/09) Renal impairment (07/11/03) ADRENAL MASS. F/U W/ KINLAW positive microalbumin Primary osteoarthritis of left hip (09/17/15) Postoperative wound dehiscence (12/23/15) Low back pain (04/10/03) DISC HERNIATION L4. MULTILEVEL DJD/SPINAL STENOSIS BY MRI; S/P surgery Hip joint inflamed (09/03/15) Hammer toe Left/right Folate deficiency (02/15/16) Carpal tunnel syndrome (08/10/06) BILATERAL R S/P SURGERY BMI 40.0-44.9, adult (12/02/14) Vitamin D deficiency Cervical spondylosis with myelopathy Atrial fibrillation Gout Carpal tunnel syndrome Spinal stenosis of lumbar region at multiple levels Restless leg syndrome Essential hypertension Surgical History S/P ORIF (open reduction internal fixation) fracture RT ANKLE S/P CABG (coronary artery bypass graft) (01/03/19) 4 vessel CABG and LA appendage excision, Dr. Nav Wang, [facility], [place], [place] History of gynecologic surgery endometrial biopsy-neg S/P carpal tunnel release H/O Spinal surgery multiple spine surgeries; low back x 2; She had multilevel DJD and spinal stenosis; disc herniation. 2008-cervical repair; C6-C7 disc; recurrent surgery. H/O arthrodesis 04/10/23 s/p RT ankle arthodesis at [facility]- External Fixator placed D/T complications from ORIF done at [facility] on 10/07/21 History of bilateral tubal ligation 09/11/80 S/P rotator cuff repair 09/11/80 History of orthopedic surgery 09/11/97 tarsal tunnel release S/P cholecystectomy 09/11/12 History of hip surgery 11/10/15 left hip arthroplasty 12/04/15-placement of wound VAC to left hip Status post incision and drainage 12/04/15 left hip surgical wound dehiscence and infection Cataract (01/07/14) FOLLOWED BY [facility] Family History Mother Diabetes Essential hypertension Personal history of malignant neoplasm KIDNEY/LIVER/BRAIN Heart disease Hyperlipidemia Stroke Asthma Father Diabetes Essential hypertension Personal history of malignant neoplasm BONE Heart disease Asthma Sister Diabetes Essential hypertension Depression Heart disease Asthma Grandfather No problems noted. Grandfather No problems noted. Grandmother Personal history of malignant neoplasm UTERINE Grandmother Diabetes Aunt Personal history of malignant neoplasm BREAST Brother Hyperlipidemia Stroke Sister Asthma Son Asthma Daughter Depression Asthma Daughter Asthma Daughter Depression Neoplasm Asthma Brother No problems noted. 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 Pets and animals: Yes Pets and animals: cat(s), dog(s) and horse(s) Current gender identity: female What is your relationship status?: Panel score (0-1 are the most socially isolated patients): 0 What type of physical activity do you participate in: none, walking and additional Details: would like to start now that it's warm Duration: 15-30 minutes/day Saniya/Orthodoxy: Jew Special saniya needs: No Seatbelt use: always Do you feel safe at home: Yes Do you feel safe in your relationship?: Yes Additional Social history: lives at home with family SDOH(Care Management) Screening Will the Patient Participate in the Screening?: Yes Do you worry about having a steady place to live?: no Problems where you live: no known problems In the past 12 months, have you had to go without electric, gas, oil or water in your home?: no Have you or anyone in your house had to go without enough food to eat?: no Has lack of transportation kept you from medical appointments or from doing things needed for daily living?: no Has anyone in your support network made you feel unsafe for any reason?: no
--- NOTE | 2024-03-19 11:19 | POCUS_ITS ---
Pocus Exam Limited Cardiac Exam DATE OF EXAM: 03/19/24 TIME OF EXAM: 11:22 PROVIDER THAT PERFORMED THE STUDY: Clarence Caban REASON FOR EXAM: Chest pain VISUALIZED STRUCTURES: four chambers, LVOT, aortic valve, mitral valve and Interventricular septum VIEW OBTAINED: Apical 4-Chamber, Parasternal long-axis and Parasternal short- axis PERTINENT FINDINGS/IMPRESSION: LV dysfunction (IVS d/t LBBB) :mild; No pericardial effusion, No RV dilation and No RV dysfunction INCIDENTAL FINDINGS: limited window d/t inability to position patient properly and d/t tranthoracic pacer pads trace MR, mild TR w/ estimated trans-tricuspid gradient of 51 to 55 mm Exam complete
[2024-03-19 11:38] LABS: D-Dimer 420 ng/mlFEU (<500)
--- NOTE | 2024-03-19 12:07 | W.PM.DS.N ---
Date of service: 03/19/24 Time of Service: 12:07 DS: Diagnosis Discharge Diagnosis (1) Mobitz type 2 second degree atrioventricular block: Status: Acute Asessment and Plan: continues to exhibit 2nd degree AV block type II despite witholding her Toprol XL for over 24h, acute ACS has been ruled out w/ serial EKG and troponin levels, TSH is normal. (2) Hieln-pj-xcipbpt kidney injury: Status: Inactive Asessment and Plan: Patient exhibited worsening renal function and that her BUN was elevated at 80 and creatinine 2.6 whereas her baseline BUN is around 40-50 and her baseline creatinine is around 2.0. Diuretics were withheld as she was felt to be euvolemic and actually slightly dry was given 1.5 L of fluid overnight from March 18 of March 19, 2024. LR was discontinued on the morning of March. (3) Atrial fibrillation: Status: Inactive Asessment and Plan: Patient has a history of paroxysmal atrial fibrillation with previous left atrial appendage closure. Nevertheless she has been maintained on chronic apixaban although at a reduced dose of 2.5 mg twice a day. During this hospitalization she did not exhibit any supraventricular tachyarrhythmias or atrial fibrillation but maintained sinus bradycardia rhythm with second-degree AV block type II. (4) CAD (coronary artery disease), qagan tayagungin coronary artery: Asessment and Plan: Despite patient's waxing and waning chest discomfort she did not exhibit any troponin leak nor any acute injury/ischemic pattern (5) Heart failure with preserved ejection fraction, borderline, class III: Asessment and Plan: Patient has a history of HFpEF with her last formal echocardiogram from November 2023 showed normal LV and RV systolic function with no significant valvular abnormalities with an LVEF of 55%. Formal echo was not done this admission but bedside POCUS exam was done on the morning of discharge with limited windows due to inability to position the patient properly and due to the fact the patient had a large transcutaneous pacer pads on her chest. Limited bedside echo included parasternal long axis parasternal short axis and apical four-chamber/5 chamber view. Patient had trace of mitral regurgitation and demonstrated mild TR with an estimated RVSP of 55 mm plus what ever right atrial pressures (could not be estimated as unable to obtain subxiphoid views). LV function appears to be grossly normal with the exception of IVCD causing septal wall abnormalities. (6) H/O arthrodesis: Asessment and Plan: hx of prior right ankle orthodesis from trimalleolar frx complicated by infection, now on lifetime of antibiotics (keflex) Discharge Plan Disposition Patient Disposition: Transfer-Acute Inpatient Care Specific Acute Inpt Facility: [facility] Condition: Serious Discharge Details Reason For Visit: Type 2 2nd degree AV block Admit Date/Time: 03/18/24 16:37 Admit Provider: Clarence Caban Attending Provider: Clarence Caban Primary Care Provider: Laisha Mcmahon Hospital Course Hospital Course: 72 with a history of paroxysmal atrial fibrillation controlled with Toprol-XL and chronically anticoagulated with apixaban who also has a history of CAD with a remote history of PCI also history of left atrial appendage closure and previous coronary bypass graft who has stage III chronic kidney disease, (baseline BUN 40, creatinine 2.0) previous ORIF of a right trimalleolar fracture complicated by osteomyelitis for which she is chronically on Keflex, diabetes mellitus type 2 requiring insulin, anemia of chronic disease, chronic low back pain from spinal stenosis and DJD, central hypertension, heart failure with preserved ejection fraction who presented to the emergency department with complaints of chest heaviness like an elephant standing on her chest and shortness of breath. Fatigue and slow heart rate. Evaluation included serial EKGs that showed Mobitz type II second-degree AV block with a 2-1 conduction with heart rates in the 30s. Laboratory evaluation included initial CBC showed mild leukocytosis 11,640 which is since normalized to 9300. She has a stable chronic anemia with hemoglobin around 11 g normal platelet count 270,000. No left shift in her white count. D-dimer was not performed on admission but has since been checked and found to be normal at 120 ng/mL. Chemistry panel admission showed worsening azotemia with a BUN of 80 creatinine 2.6 with repeat levels on the day of discharge being 74 2.7. No electrolyte abnormalities normal LFTs. Serial troponins were negative x 3 sets with a troponin I of less than 50 ng/L. proBNP on admission was mildly elevated at 736 with a repeat level of 983. TSH was normal at 2.62. No chest imaging was obtained on admission chest x-ray has been ordered for today and is pending. No formal echocardiogram was performed. Patient was admitted to the intensive care unit with placement of chest pacer pads for transcutaneous cardiac pacing. She maintained her blood pressure had no hypotension continue to have intermittent symptoms of chest heaviness and dyspnea. She was placed on supplemental oxygen. Vital signs remained stable although she maintain a bradycardia in the high 30s to low 40s with continued second-degree AV block Mobitz type II. Cardiology consultation was obtained with Dr. Sabillon who recommended transfer for cardiac pacemaker. Patient's Toprol-XL was withheld although her last dose has been taken on the morning of 03/18/2024 prior to presenting to the emergency department. Her apixaban and aspirin were continued. [facility] cardiology was contacted on the day of her discharge to arrange for transfer as it was felt the patient would likely need a permanent pacemaker. It is felt that she has some intrinsic conduction problem. She has a known left bundle branch block which was not new at this admission but was noted on EKG from February 13, 2024 but was not seen on her prior EKG from January 10, 2022. On the day of discharge I spoke with Dr. Arevalo, fisher trawl net from [facility] who after reviewing her case and her EKG and rhythm strips agreed that she would be appropriate transferred to [facility] CICU. Patient has been accepted to the service of Dr. Kush Carbajal. Patient remains hemodynamically stable. Home Meds and New Rx's Prescriptions: No Action (DME) lancets 25 gauge misc See Dose Instructions .ROUTE .MEDSUPPLY Qty: 100 5RF Dose Instruction: As directed Rx Instructions: daily e11.9 True track smart system (DME) lancets [OneTouch Delica Lancets] 33 gauge misc See Dose Instructions .ROUTE DAILY Qty: 100 0RF Dose Instruction: E11.9 daily Rx Instructions: E11.9 daily albuterol sulfate 2.5 mg /3 mL (0.083 %) solution for nebulization 2.5 mg INHALATION Q2H PRN PRN (Reason: shortness of breath or wheezing) Qty: 180 4RF (DME) Blood Glucose Test Strip See Dose Instructions .ROUTE .MEDSUPPLY Qty: 300 5RF Dose Instruction: As directed Rx Instructions: 3 times per day. E11.9 / Z79.4 One touch ultra metoprolol succinate 50 mg tablet extended release 24 hr 50 mg PO DAILY Qty: 90 6RF aspirin [Adult Low Dose Aspirin] 81 mg tablet,delayed release (DR/EC) 81 mg PO DAILY Eliquis 2.5 mg tablet 2.5 mg PO BID Qty: 180 4RF epinephrine [EpiPen 2-Erick] 0.3 mg/0.3 mL auto-injector 0.3 mg IM ONCE Qty: 2 10RF duloxetine 30 mg capsule,delayed release(DR/EC) 30 mg PO DAILY Qty: 90 12RF insulin aspart U-100 [Novolog FlexPen U-100 Insulin] 100 unit/mL (3 mL) insulin pen 10 unit SC TID Qty: 45 5RF Hold Instructions: Home Medication placed on hold at Doctor's office acetaminophen [Tylenol Extra Strength] 500 mg tablet 1,000 mg PO BID Breztri Aerosphere 160-9-4.8 mcg/actuation HFA aerosol inhaler 2 inh inhalation BID Qty: 10.7 12RF (DME) pen needle, diabetic [1st Tier Unifine Pentips] 31 gauge x 1/4 needle See Dose Instructions .ROUTE .MEDSUPPLY Qty: 450 5RF Dose Instruction: As directed Rx Instructions: 5/ day E11.65. needed for several meds lidocaine 4 % adhesive patch,medicated 1 patch topical DAILY PRN meclizine 12.5 mg tablet 12.5 mg PO TID PRN atorvastatin 40 mg tablet 40 mg PO DAILY Qty: 90 6RF cholecalciferol (vitamin D3) 25 mcg (1,000 unit) capsule 25 mcg PO DAILY Qty: 90 4RF fesoterodine 8 mg tablet extended release 24 hr 8 mg PO DAILY Qty: 90 4RF Rx Instructions: this is the med her ins co said had no copay ropinirole 2 mg tablet 2 mg PO QPM PRN (Reason: restless leg(s)) Qty: 90 5RF Rx Instructions: Slow-Mag 71.5 mg tablet,delayed release (DR/EC) 71.5 mg PO TID Qty: 270 4RF isosorbide mononitrate 10 mg tablet 10 mg PO BID Qty: 180 5RF Rx Instructions: give doses 7 hrs apart Creon 6,000-19,000 -30,000 unit capsule,delayed release(DR/EC) 1 cap PO TID Qty: 270 5RF spironolactone 25 mg tablet 25 mg PO BID Qty: 180 4RF ergocalciferol (vitamin D2) 1,250 mcg (50,000 unit) capsule 50,000 unit PO QWEEK Qty: 13 4RF nystatin 100,000 unit/gram powder 1 applic topical BID Qty: 60 3RF estradiol 0.01 % (0.1 mg/gram) cream 1 g vaginal .twice weekly Qty: 42.5 5RF B-complex with vitamin C Tablet 1 tab PO DAILY Qty: 90 4RF omeprazole 40 mg capsule,delayed release(DR/EC) 40 mg PO DAILY Qty: 90 3RF tramadol 50 mg tablet 50 mg PO BID MDD 100 PRN (Reason: pain) Qty: 60 3RF levetiracetam 750 mg tablet 750 mg PO BID Qty: 180 3RF fluconazole 150 mg tablet 150 mg PO Q3D Qty: 5 0RF cephalexin 500 mg capsule 500 mg PO TID ondansetron 4 mg tablet,disintegrating 4 mg translingual Q8H PRN calcitriol 0.25 mcg capsule 0.25 mcg PO TID allopurinol 100 mg tablet 100 mg PO QHS potassium chloride 20 mEq tablet,ER particles/crystals 20 meq PO BID insulin glargine [Basaglar KwikPen U-100 Insulin] 100 unit/mL (3 mL) insulin pen 40 unit SC DAILY Qty: 60 5RF Discharge Instructions Instructions: Heart Block, Adult (DC) Activity:: Activity as Tolerated Equipment/Supplies:: No Equipment Needed Diet:: Carb Counting Discharge Orders Discharge Orders: Discharge Order (Routine); Ordered 03/19/24 Ordered By: Clarence Caban DS: Summary Time Spent with Patient providing and/or coordinating discharge services: Greater than 30 minutes Status at Discharge Functional status at discharge: independent ambulation Overall status at discharge: patient is not back to baseline Mental Status: mental status grossly normal Speech and Movement: speech and movement normal Mood: congruent mood Affect: normal affect Quality:SDOH Health Related Social Needs: No Data to Display Exam Narrative Exam Narrative: Ann-Marie appears to be calm, no acute distress, alert and oriented, currently pain free LUngs: clear anteriorly and posteriorly Heart; bradycardic Abdomen: soft, normal bowel sounds, some mild tenderness but no rebound tenderness and no guarding Extremities: no pedal/ankle or leg edema Psych Mental Status: mental status grossly normal Speech and Movement: speech and movement normal Mood: congruent mood Affect: normal affect DS: Data Vitals/I&O Vitals and I&O: Vital Signs Temperature 36.7 C 03/19/24 02:00 Temperature Source Temporal Artery Scan 03/19/24 10:15 Pulse 46 L 03/19/24 10:32 Pulse 42 L 03/19/24 11:02 Respiratory Rate 26 H 03/19/24 11:02 Respiratory Effort Short of Breath, Labored 03/19/24 10:15 Respiratory Depth Shallow 03/19/24 10:15 Respiratory Pattern Tachypnea 03/19/24 10:15 Blood Pressure 137/50 L 03/19/24 11:02 Blood Pressure Mean 73 03/19/24 11:02 Blood Pressure Position Supine 03/19/24 10:15 Pulse Oximetry 95 03/19/24 10:32 Oxygen Delivery Method Nasal Cannula 03/19/24 10:15 Oxygen Flow Rate 1 03/19/24 10:15 Pain Level 6 03/19/24 10:15 Intake & Output 03/18/24 03/19/24 03/19/24 23:59 11:59 23:59 Intake Total 400 / 400 1830 / 1830 Output Total 1950 / 1950 Balance 400 / 400 -120 / -120 Weight 121.1 kg 121.3 kg Intake: IV 1480 / 1480 Oral 400 / 400 350 / 350 Output: Urine 1949 / 1950 Other: Urine Color Yellow Urine Appearance Clear Urine Odor Normal Comment PERWICK CATHETER IN USE TO 60 ML OF SUCTION Data Completed and Pending Labs on day of discharge: Labs from last 24 hours 03/19/24 03/19/24 03/19/24 10:45 09:35 06:00 WBC 9.36 RBC 4.16 Hgb 10.7 L Hct 36.1 MCV 87 MCH 25.7 L MCHC 29.6 L RDW 17.5 H Plt Count 244 MPV 10.4 Immature Gran % 0.3 Neutrophils % 62.1 Lymphocytes % 20.4 Monocytes % 9.7 Eosinophils % 6.5 Basophils % 1.0 Nucleated RBC % 0.0 Absolute Neutrophils 5.81 Absolute Lymphocytes 1.91 Absolute Monocytes 0.91 H Absolute Eosinophils 0.61 Absolute Basophils 0.09 D-Dimer 420 Sodium 141 Potassium 4.2 Chloride 107 Carbon Dioxide 29.5 Anion Gap 4.5 BUN 74 H Creatinine 2.7 H Est GFR (CKD-EPI 2020) 18.29 Glucose 149 H Calcium 8.7 Magnesium Total Bilirubin 0.30 AST 11 L ALT 21 Alkaline Phosphatase 90 Troponin I < 50 NT-Pro-B Natriuret Pep 983 H Total Protein 6.4 Albumin 3.1 L TSH Add-On Test Request DONE 03/18/24 03/18/24 19:14 13:35 WBC 11.64 H RBC 4.46 Hgb 11.2 Hct 38.4 MCV 86 MCH 25.1 L MCHC 29.2 L RDW 17.7 H Plt Count 270 MPV 9.8 Immature Gran % 0.5 Neutrophils % 69.3 Lymphocytes % 15.6 Monocytes % 7.9 Eosinophils % 5.8 Basophils % 0.9 Nucleated RBC % 0.0 Absolute Neutrophils 8.07 H Absolute Lymphocytes 1.82 Absolute Monocytes 0.92 H Absolute Eosinophils 0.68 Absolute Basophils 0.10 D-Dimer Sodium 141 Potassium 4.8 Chloride 105 Carbon Dioxide 29.4 Anion Gap 6.6 BUN 80 H Creatinine 2.6 H Est GFR (CKD-EPI 2020) 19.14 Glucose 139 H Calcium 8.9 Magnesium 2.3 Total Bilirubin 0.38 AST 12 L ALT 26 Alkaline Phosphatase 91 Troponin I < 50 < 50 NT-Pro-B Natriuret Pep 736 H Total Protein 7.3 Albumin 3.7 TSH 2.62 Add-On Test Request PFSH All Active Problems Mobitz type 2 second degree atrioventricular block (Acute ~03/19/24) Left bundle branch block (Acute) Posterior tibial tendon dysfunction (Acute) 02/03/16 Ankle pain (Acute 03/13/14) Numbness and tingling in left upper extremity (Acute) Hypoxia (Acute) Vaginal atrophy (Acute) Multiple falls (Acute) Chronic hypoxic respiratory failure (Acute) Obesity (Chronic) Nocturnal hypoxia (Acute) Pulmonary hypertension (Acute) Elevated serum creatinine (Acute) Vaginal itching (Acute) Osteoarthritis of right knee (Acute) Uterine polyp (Acute) Postmenopausal bleeding (Acute) Low magnesium level (Acute) Hyperparathyroidism (Acute) Hypocalcemia (Acute) Gout (Chronic) Right knee pain (Acute) Arthropathies (Acute) Skin tear (Acute) Congestive heart failure (Chronic) Preserved ejection fraction-followed by cardiology at [facility] Type 2 diabetes mellitus with diabetic nephropathy (Acute) Coronary artery disease (Chronic) Chronic kidney disease, stage 4 (severe) (Acute) 12/2021, Cr-2.5 Bimalleolar ankle fracture (Acute) s/p ORIF on 10/07 Cyst of lateral meniscus of right knee (Acute) Wound abscess (Acute) Medical History UTI (urinary tract infection) Chronic obstructive lung disease Palliative care patient Fracture of proximal end of right fibula Closed trimalleolar fracture of right ankle (10/03/21) Closed avulsion fracture of condyle of right femur Tear of lateral meniscus of right knee Medial meniscus tear CHF (congestive heart failure) IDDM (insulin dependent diabetes mellitus) Myoclonic epileptic seizures Heart failure with preserved ejection fraction, borderline, class III Pancreatic atrophy DVT (deep venous thrombosis) CAD (coronary artery disease), qagan tayagungin coronary artery DNR no code (do not resuscitate) Constipation Atrial flutter Gram-positive bacteremia Diabetes mellitus (09/20/10) Tarsal tunnel syndrome (06/11/13) Anemia CKD (chronic kidney disease) stage 3, GFR 30-59 ml/min Cr about 2.5 Postmenopausal bleeding neg. endometrial biopsy Menopausal syndrome 07/11/03 Hepatomegaly 06/10/04 Abnormal mammography 08/10/06 Diabetes mellitus 09/20/10 Positive Microalbumin Tarsal tunnel syndrome 06/11/13 Hyperlipidemia (08/10/00) Spinal stenosis of lumbar region (02/15/16) Smoker (06/30/16) 01/17/17 1-2 cig/wk Rotator cuff syndrome (08/01/09) Renal impairment (07/11/03) ADRENAL MASS. F/U W/ KINLAW positive microalbumin Primary osteoarthritis of left hip (09/17/15) Postoperative wound dehiscence (12/23/15) Low back pain (04/10/03) DISC HERNIATION L4. MULTILEVEL DJD/SPINAL STENOSIS BY MRI; S/P surgery Hip joint inflamed (09/03/15) Hammer toe Left/right Folate deficiency (02/15/16) Carpal tunnel syndrome (08/10/06) BILATERAL R S/P SURGERY BMI 40.0-44.9, adult (12/02/14) Vitamin D deficiency Cervical spondylosis with myelopathy Atrial fibrillation Gout Carpal tunnel syndrome Spinal stenosis of lumbar region at multiple levels Restless leg syndrome Essential hypertension Surgical History S/P ORIF (open reduction internal fixation) fracture RT ANKLE S/P CABG (coronary artery bypass graft) (01/03/19) 4 vessel CABG and LA appendage excision, Dr. Nav Wang, [facility], [place], [place] History of gynecologic surgery endometrial biopsy-neg S/P carpal tunnel release H/O Spinal surgery multiple spine surgeries; low back x 2; She had multilevel DJD and spinal stenosis; disc herniation. 2009-cervical repair; C6-C7 disc; recurrent surgery. H/O arthrodesis 04/10/23 s/p RT ankle arthodesis at [facility]- External Fixator placed D/T complications from ORIF done at [facility] on 10/07/21 History of bilateral tubal ligation 09/11/80 S/P rotator cuff repair 09/11/80 History of orthopedic surgery 09/11/97 tarsal tunnel release S/P cholecystectomy 09/11/12 History of hip surgery 11/10/15 left hip arthroplasty 12/04/15-placement of wound VAC to left hip Status post incision and drainage 12/04/15 left hip surgical wound dehiscence and infection Cataract (01/07/14) FOLLOWED BY [facility] Family History Mother Diabetes Essential hypertension Personal history of malignant neoplasm KIDNEY/LIVER/BRAIN Heart disease Hyperlipidemia Stroke Asthma Father Diabetes Essential hypertension Personal history of malignant neoplasm BONE Heart disease Asthma Sister Diabetes Essential hypertension Depression Heart disease Asthma Grandfather No problems noted. Grandfather No problems noted. Grandmother Personal history of malignant neoplasm UTERINE Grandmother Diabetes Aunt Personal history of malignant neoplasm BREAST Brother Hyperlipidemia Stroke Sister Asthma Son Asthma Daughter Depression Asthma Daughter Asthma Daughter Depression Neoplasm Asthma Brother No problems noted. 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 Pets and animals: Yes Pets and animals: cat(s), dog(s) and horse(s) Current gender identity: female What is your relationship status?: Panel score (0-1 are the most socially isolated patients): 0 What type of physical activity do you participate in: none, walking and additional Details: would like to start now that it's warm Duration: 15-30 minutes/day Saniya/Latter Day: Mandaeism Special saniya needs: No Seatbelt use: always Do you feel safe at home: Yes Do you feel safe in your relationship?: Yes Additional Social history: lives at home with family Time Spent with Patient Time Spent with Patient: 45-69 minutes Time was spent: preparing to see the patient(eg.review tests), ordering medications,tests, procedures, referring, communicating with other health clinical care coordinator ([facility] cardiology), indepentently interpreting results, counseling the patient and care coordination
[2024-03-19] MEDS: Aspirin E.C. 81 MG TABEC PO (12:19)
[2024-03-19] MEDS: Apixaban 2.5 MG TAB PO (12:19)
--- NOTE | 2024-03-19 12:21 | DI.RAD_ITS ---
Exam(s) XR PORTABLE CHEST AP EXAM: XR PORTABLE CHEST AP CLINICAL HISTORY: dyspnea TECHNIQUE: 2D digital imaging was performed. COMPARISON: CT CT CHEST LUNG CANCER SCREEN from 03/12/2024 FINDINGS: Exam limited by multiple overlying monitoring leads. LUNGS: Clear where visualized. No pleural abnormality seen. HEART: Normal size. AORTA: Normal diameter. BONES: Sternal wires. Hardware in cervical spine. Thoracic spine mainly obscured. Soft tissues: Unremarkable. IMPRESSION: No acute findings. DATA REPOSITORY: RADIATION DOSE DELIVERED:
--- NOTE | 2024-03-19 13:28 | PDOC.CMDIS ---
Date of service: 03/19/24 Time of Service: 13:28 LACE Index Scoring Tool Questions: Length of Stay (in days): 1 Was the patient admitted via the E.D.?: Yes Comorbidities: Diabetes w/o Complication, with End Organ Damage, Chronic Pulmonary Disease and Liver or Renal Disease E.D. Visits: 2 Answers: Total Score: 11 Risk of Readmission: High Risk Care Management Discharge Plan Reason for Hospitalization: Mobitz type 2 second degree atrioventricular block Discharge Plan: Ann-Marie is being transferred to [facility] CICU and is accepted to the service of Dr. Kush Carbajal. EMS is coordinated by RN Rug Inspector. Patient/Family Education Needs: Review transfer instructions, discuss ask me three. Services Needed at Discharge: Transportation (EMS, 4pm [place]) [facility] Health Related Social Needs: No Data to Display
[2024-03-19] MEDS: Tiotropium Bromide-Respimat 10 PUFF INH IH (13:49)
[2024-03-19] MEDS: Budesonide/Formoterol 160/4.5 6 GM 60 PUFF INH IH (13:49)
--- NOTE | 2024-03-19 15:12 | CHAPLAIN ---
Bibi is well known to many of us from previous admissions. She tells me that her heart rate is low and they want to put a pacemaker in. We talked about this being more routine these days. 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 Dr. Caban came in to do an ultrasound on Bibi, so I left, but I will return to visit later.
== END 2024-03-19 16:11 | disposition short-term general hospital (02) ==
LOC: ER 13:37 → ICU 17:30
PROVIDERS: Admitting Provider Internal Medicine; Emergency Provider Student in an Organized Health Care Education/Training Program; PCP Family Medicine; Visit Provider Internal Medicine
DX: I44.1 Atrioventricular block, second degree (principal); N17.9 Acute kidney failure, unspecified; I48.0 Paroxysmal atrial fibrillation; I25.10 Atherosclerotic heart disease of native coronary artery without angina pectoris; I44.7 Left bundle-branch block, unspecified; J44.0 Chronic obstructive pulmonary disease with (acute) lower respiratory infection; N18.4 Chronic kidney disease, stage 4 (severe); I50.30 Unspecified diastolic (congestive) heart failure; Z98.1 Arthrodesis status; Z79.01 Long term (current) use of anticoagulants; E11.22 Type 2 diabetes mellitus with diabetic chronic kidney disease; Z99.81 Dependence on supplemental oxygen; R07.89 Other chest pain; R06.02 Shortness of breath; R29.6 Repeated falls; E66.9 Obesity, unspecified; I27.20 Pulmonary hypertension, unspecified; E21.3 Hyperparathyroidism, unspecified; Z79.4 Long term (current) use of insulin
CPT/HCPCS: 00123; 36415; 80053; 93005; 93308; 94640; 96360; 96361; 99222; 99291; 71045; 83735; 83880; 84443; 84484; 85025; 85379; 93010; 94664; 99239; G0378; J1815; J3490

== ENCOUNTER 2024-04-05 15:59 | Outpatient (REF) | payer OTHER, MEDICAID, SELFPAY ==
[2024-04-05 18:12] LABS: Bilirubin Negative (Negative); Blood Negative (Negative); Clarity Sl Cloudy (Clear); Glucose Negative (Negative); Ketones Negative (Negative); Leukocyte Esterase Negative (Negative); Nitrite Negative (Negative); Urobilinogen 0.2 mg/dL (Up to 0.2); pH 5.5 (5-8)
== END 2024-04-05 16:00 | disposition home or self-care (01) ==
LOC: LBN 15:59
PROVIDERS: PCP Family Medicine; Visit Provider Family Medicine
DX: R31.9 Hematuria, unspecified (principal); N39.0 Urinary tract infection, site not specified
CPT/HCPCS: 87077; 81003; 87086; 87186

== ENCOUNTER 2024-04-16 10:41 | Outpatient (CLI) | payer OTHER, MEDICAID, SELFPAY ==
--- NOTE | 2024-04-16 10:30 | RT.EKG_ITS ---
APPROVED REPORT Exam: Resting ECG Reason for Exam: heart block Patient Location: O HR:97 bpm ECG Measurements Heart Rate 97 AXIS WV 60 P 0 QRSd 154 QRS 46 QT 383 T 233 QTc 487 Conclusion Sinus rhythm...normal P axis, V-rate 50- 99 Ventricular bigeminy...bigeminy string>4 w/ V complexes May be PACs LBBB Ventricular paced beat
== END 2024-04-16 10:42 | disposition home or self-care (01) ==
LOC: DI.CARD 10:42
PROVIDERS: PCP Family Medicine; Referring Provider Family Medicine; Visit Provider Internal Medicine Cardiovascular Disease
DX: I48.0 Paroxysmal atrial fibrillation (principal); I25.10 Atherosclerotic heart disease of native coronary artery without angina pectoris; I44.7 Left bundle-branch block, unspecified; I44.1 Atrioventricular block, second degree; I45.10 Unspecified right bundle-branch block; I42.2 Other hypertrophic cardiomyopathy
CPT/HCPCS: 93010

== ENCOUNTER → 2024-04-16 10:41 | Outpatient (BNVA) | payer OTHER, MEDICAID, SELFPAY | PROVIDERS: PCP Family Medicine; Referring Provider Family Medicine; Visit Provider Internal Medicine Cardiovascular Disease | DX: I48.0 Paroxysmal atrial fibrillation (principal); I25.10 Atherosclerotic heart disease of native coronary artery without angina pectoris; I44.7 Left bundle-branch block, unspecified; I44.1 Atrioventricular block, second degree; Z95.0 Presence of cardiac pacemaker | CPT/HCPCS: 93005; 99213 ==

== ENCOUNTER 2024-04-18 15:39 | Emergency (ER) | payer OTHER, MEDICAID, SELFPAY ==
[2024-04-18] VITALS (34 sets, daily range): BP systolic 105–167; BP diastolic 41–99; PULSE 58–96; RESP 17–27; TEMP 36; O2SAT 91–98
--- NOTE | 2024-04-18 15:15 | RT.EKG_ITS ---
APPROVED REPORT Exam: Resting ECG Reason for Exam: Dyspnea Patient Location: E HR:79 bpm ECG Measurements Heart Rate 79 AXIS NV 229 P 0 QRSd 145 QRS 57 QT 442 T 147 QTc 507 Conclusion Probable left atrial enlargement...P >50mS, <-0.10mV V1 LVH with secondary repolarization abnormality...multi-LVH criteria, abnrm ST-T LBBB There are no significant changes compared to prior EKG performed on 04/16/2024 at 09:32.
--- NOTE | 2024-04-18 15:46 | W.ED.GENAD ---
Discharge Plan Disposition Patient Disposition: Home Condition: Stable Discharge Details Clinical Impression: Shortness of breath on exertion Primary Care Provider: Laisha Mcmahon ED Provider: Jamie Jean Home Meds and New Rx's Prescriptions: Continued (DME) lancets 25 gauge misc See Dose Instructions .ROUTE .MEDSUPPLY Qty: 100 5RF Dose Instruction: As directed Rx Instructions: daily e11.9 True track smart system (DME) lancets [OneTouch Delica Lancets] 33 gauge misc See Dose Instructions .ROUTE DAILY Qty: 100 0RF Dose Instruction: E11.9 daily Rx Instructions: E11.9 daily albuterol sulfate 2.5 mg /3 mL (0.083 %) solution for nebulization 2.5 mg INHALATION Q2H PRN PRN (Reason: shortness of breath or wheezing) Qty: 180 4RF (DME) Blood Glucose Test Strip See Dose Instructions .ROUTE .MEDSUPPLY Qty: 300 5RF Dose Instruction: As directed Rx Instructions: 3 times per day. E11.9 / Z79.4 One touch ultra aspirin [Adult Low Dose Aspirin] 81 mg tablet,delayed release (DR/EC) 81 mg PO DAILY Eliquis 2.5 mg tablet 2.5 mg PO BID Qty: 180 4RF epinephrine [EpiPen 2-Erick] 0.3 mg/0.3 mL auto-injector 0.3 mg IM ONCE Qty: 2 10RF duloxetine 30 mg capsule,delayed release(DR/EC) 30 mg PO DAILY Qty: 90 12RF insulin aspart U-100 [Novolog FlexPen U-100 Insulin] 100 unit/mL (3 mL) insulin pen 10 unit SC TID Qty: 45 5RF cephalexin 500 mg capsule 500 mg PO TID acetaminophen [Tylenol Extra Strength] 500 mg tablet 1,000 mg PO BID Breztri Aerosphere 160-9-4.8 mcg/actuation HFA aerosol inhaler 2 inh inhalation BID Qty: 10.7 12RF (DME) pen needle, diabetic [1st Tier Unifine Pentips] 31 gauge x 1/4 needle See Dose Instructions .ROUTE .MEDSUPPLY Qty: 450 5RF Dose Instruction: As directed Rx Instructions: 5/ day E11.65. needed for several meds lidocaine 4 % adhesive patch,medicated 1 patch topical DAILY PRN meclizine 12.5 mg tablet 12.5 mg PO TID PRN atorvastatin 40 mg tablet 40 mg PO DAILY Qty: 90 6RF cholecalciferol (vitamin D3) 25 mcg (1,000 unit) capsule 25 mcg PO DAILY Qty: 90 4RF fesoterodine 8 mg tablet extended release 24 hr 8 mg PO DAILY Qty: 90 4RF Rx Instructions: this is the med her ins co said had no copay ropinirole 2 mg tablet 2 mg PO QPM PRN (Reason: restless leg(s)) Qty: 90 5RF Rx Instructions: Slow-Mag 71.5 mg tablet,delayed release (DR/EC) 71.5 mg PO TID Qty: 270 4RF isosorbide mononitrate 10 mg tablet 10 mg PO BID Qty: 180 5RF Rx Instructions: give doses 7 hrs apart Creon 6,000-19,000 -30,000 unit capsule,delayed release(DR/EC) 1 cap PO TID Qty: 270 5RF spironolactone 25 mg tablet 25 mg PO BID Qty: 180 4RF ergocalciferol (vitamin D2) 1,250 mcg (50,000 unit) capsule 50,000 unit PO QWEEK Qty: 13 4RF nystatin 100,000 unit/gram powder 1 applic topical BID Qty: 60 3RF estradiol 0.01 % (0.1 mg/gram) cream 1 g vaginal .twice weekly Qty: 42.5 5RF B-complex with vitamin C Tablet 1 tab PO DAILY Qty: 90 4RF tramadol 50 mg tablet 50 mg PO BID MDD 100 PRN (Reason: pain) Qty: 60 3RF levetiracetam 750 mg tablet 750 mg PO BID Qty: 180 3RF metoprolol succinate 25 mg tablet extended release 24 hr 12.5 mg PO DAILY pantoprazole 40 mg tablet,delayed release (DR/EC) 40 mg PO DAILY fluconazole 150 mg tablet 150 mg PO Q3D Qty: 5 0RF ondansetron 4 mg tablet,disintegrating 4 mg translingual Q8H PRN Qty: 30 3RF torsemide 20 mg tablet 40 mg PO BID Qty: 120 4RF calcitriol 0.25 mcg capsule 0.25 mcg PO TID allopurinol 100 mg tablet 100 mg PO QHS potassium chloride 20 mEq tablet,ER particles/crystals 20 meq PO BID insulin glargine [Basaglar KwikPen U-100 Insulin] 100 unit/mL (3 mL) insulin pen 40 unit SC DAILY Qty: 60 5RF Discharge Instructions Instructions: Shortness of Breath, Adult ED Additional Instructions: You were seen in the emergency department for your shortness of breath on exertion, you have extensive comorbidities of CHF and COPD as well as risk factors of obesity, use home O2. I discussed possible cardiac sources of shortness of breath with your electrophysiology team, it appears that your in some sort of irregular atrial rhythm and your pacemaker may not be picking up every beat but this is expected and normal per electrophysiology at [facility]. Please try to stay well-hydrated and eat nutritious foods, there is no sign of pneumonia, CHF exacerbation, infection, electrolyte abnormality beyond mildly low potassium that showed replete with normal p.o. intake. Your electrophysiology team would like you to send a transmission on the device that you have at home on your pacer to them this evening or by tomorrow morning and they will get back to you. Please use your home O2 as needed, return to the ED for any profound increase in shortness of breath and respiratory distress, chest pain, diaphoresis, increasing peripheral edema and weight gain, cough with fever. Referrals: Laisha Mcmahon MD, [place] [Primary Care Provider] - HPI General Date/Time Provider Initiated Documentation: 04/18/24 15:43. HPI Narrative: 73 year-old female presents to ED today by EMS with a chief complaint of SOB since Monday, PCP recommended ED evaluation. Patient was recently admitted at [facility] (03/24/24) for progression of her Mobitz Type II Heart block to Complete Block and had a Medtronic Micro Pacemaker implanted. Has longstanding COPD and HFpEF, severe t2DM, CKD, and paroxysmal atrial fibrillation with implanted Watchman Device. Patient has home health services, and does normally walk short distances- noted improvement in her baseline energy levels at Cardiology visit two days ago after pacemaker implantation. Quality described as not painful, having shortness of breath even with short walks to the bathroom in her home, no radiation to fever, cough, hemoptysis, increasing peripheral edema, endorses some upper abdominal pain which is new, denies headache or altered mentation. Severity is described as moderate to severe. Palliating factors include increased use of her home O2. Provoking factors include recent hospitalization and pacemaker implantation. Patient is anticoagulated in [facility]. Related Data Home Medications ?Medication ?Instructions ?Recorded ?Confirmed lancets 33 gauge (RamilaTouch Delica #100 ea 12/18/18 04/17/24 Lancets) lancets 25 gauge #100 ea 01/29/19 04/17/24 albuterol sulfate 2.5 mg/3 mL 2.5 mg (3 mL) inhalation Q2H PRN 09/10/20 04/17/24 (0.083 %) solution for nebulization PRN shortness of breath or wheezing #180 mL pen needle, diabetic 31 gauge x #450 ea 12/10/20 04/17/2409/14 (1st Tier Unifine Pentips) blood sugar diagnostic (Blood #300 ea 04/08/21 04/17/24 Glucose Test strips) acetaminophen 500 mg tablet 1,000 mg PO BID 11/15/22 04/17/24 (Tylenol Extra Strength) lidocaine 4 % topical patch 1 patch topical DAILY PRN 05/12/23 04/17/24 meclizine 12.5 mg tablet 12.5 mg PO TID PRN 05/12/23 04/17/24 atorvastatin 40 mg tablet 40 mg PO DAILY #90 tab-caps 06/09/23 04/17/24 cholecalciferol (vitamin D3) 25 25 mcg PO DAILY #90 caps 07/07/23 04/17/24 mcg (1,000 unit) capsule fesoterodine 8 mg tablet,extended 8 mg PO DAILY #90 tabs 08/08/23 04/17/24 release 24 hr magnesium chloride 71.5 mg 71.5 mg PO TID #270 tabs 08/30/23 04/17/24 (magnesium chloride) tablet,delayed release (Slow-Mag) ropinirole 2 mg tablet 2 mg PO QPM PRN restless leg(s) 08/30/23 04/17/24 #90 tabs isosorbide mononitrate 10 mg tablet 10 mg PO BID #180 tabs 09/18/23 04/17/24 [id number] 1 cap PO TID #270 caps 09/18/23 04/17/24 6,000-19,000-30,000 unit capsule,delayed rel (Creon) spironolactone 25 mg tablet 25 mg PO BID #180 tabs 09/18/23 04/17/24 ergocalciferol (vitamin D2) 1,250 50,000 unit PO QWEEK #13 caps 10/04/23 04/17/24 mcg (50,000 unit) capsule nystatin 100,000 unit/gram topical 1 applic topical BID #60 grams 10/19/23 04/17/24 powder budesonide 160 mcg-glycopyr 9 2 inh inhalation BID #10.7 grams 11/07/23 04/17/24 mcg-formot 4.8 mcg/actuation HFA inhaler (Breztri Aerosphere) estradiol 0.01% (0.1 mg/gram) 1 g vaginal .twice weekly #42.5 11/14/23 04/17/24 vaginal cream grams B-complex with vitamin C 1 tab PO DAILY #90 tabs 11/20/23 04/17/24 allopurinol 100 mg tablet 100 mg PO QHS 02/13/24 04/17/24 calcitriol 0.25 mcg capsule 0.25 mcg PO TID hypocalcemia 02/13/24 04/17/24 potassium chloride 20 mEq 20 meq PO BID 02/14/24 04/17/24 tablet,extended release(part/cryst) insulin glargine 100 unit/mL (3 40 unit (0.4 mL) subcut DAILY #60 02/15/24 04/17/24 mL) subcutaneous pen (Basaglar mL KwikPen U-100 Insulin) apixaban 2.5 mg tablet (Eliquis) 2.5 mg PO BID #180 tabs 02/20/24 04/17/24 aspirin 81 mg tablet,delayed 81 mg PO DAILY 02/20/24 04/17/24 release (Adult Low Dose Aspirin) duloxetine 30 mg capsule,delayed 30 mg PO DAILY #90 tab-caps 02/20/24 04/17/24 release epinephrine 0.3 mg/0.3 mL 0.3 mg (0.3 mL) IM ONCE #2 ea 02/20/24 04/17/24 injection, auto-injector (EpiPen 2-Erick) insulin aspart U-100 100 unit/mL 10 unit (0.1 mL) subcut TID #45 mL 02/20/24 04/17/24 (3 mL) subcutaneous pen (Novolog FlexPen U-100 Insulin aspart) levetiracetam 750 mg tablet 750 mg PO BID #180 tabs 02/21/24 04/17/24 tramadol 50 mg tablet 50 mg PO BID PRN pain #60 tabs 02/21/24 04/17/24 metoprolol succinate 25 mg 12.5 mg PO DAILY 03/28/24 04/17/24 tablet,extended release 24 hr pantoprazole 40 mg tablet,delayed 40 mg PO DAILY 03/28/24 04/17/24 release fluconazole 150 mg tablet 150 mg PO Q3D #5 tabs 04/04/24 04/17/24 ondansetron 4 mg disintegrating 4 mg translingual Q8H PRN Nausea/ 04/11/24 04/17/24 tablet vomiting #30 tabs cephalexin 500 mg capsule 500 mg PO TID 04/16/24 04/17/24 torsemide 20 mg tablet 40 mg (2 x 20 mg) PO BID #120 tabs 04/18/24 Previous Rx's ?Medication ?Instructions ?Recorded lancets 33 gauge (OneTouch Delica #100 ea 12/18/18 Lancets) lancets 25 gauge #100 ea 01/29/19 albuterol sulfate 2.5 mg/3 mL 2.5 mg (3 mL) inhalation Q2H PRN 09/10/20 (0.083 %) solution for nebulization PRN shortness of breath or wheezing #180 mL pen needle, diabetic 31 gauge x #450 ea 12/10/2009/14 (1st Tier Unifine Pentips) blood sugar diagnostic (Blood #300 ea 04/08/21 Glucose Test strips) atorvastatin 40 mg tablet 40 mg PO DAILY #90 tab-caps 06/09/23 cholecalciferol (vitamin D3) 25 25 mcg PO DAILY #90 caps 07/07/23 mcg (1,000 unit) capsule fesoterodine 8 mg tablet,extended 8 mg PO DAILY #90 tabs 08/08/23 release 24 hr magnesium chloride 71.5 mg 71.5 mg PO TID #270 tabs 08/30/23 (magnesium chloride) tablet,delayed release (Slow-Mag) ropinirole 2 mg tablet 2 mg PO QPM PRN restless leg(s) 08/30/23 #90 tabs isosorbide mononitrate 10 mg tablet 10 mg PO BID #180 tabs 09/18/23 [id number]-[id number] 1 cap PO TID #270 caps 09/18/23 6,000-19,000-30,000 unit capsule,delayed rel (Creon) spironolactone 25 mg tablet 25 mg PO BID #180 tabs 09/18/23 ergocalciferol (vitamin D2) 1,250 50,000 unit PO QWEEK #13 caps 10/04/23 mcg (50,000 unit) capsule nystatin 100,000 unit/gram topical 1 applic topical BID #60 grams 10/19/23 powder budesonide 160 mcg-glycopyr 9 2 inh inhalation BID #10.7 grams 11/07/23 mcg-formot 4.8 mcg/actuation HFA inhaler (Breztri Aerosphere) estradiol 0.01% (0.1 mg/gram) 1 g vaginal .twice weekly #42.5 11/14/23 vaginal cream grams B-complex with vitamin C 1 tab PO DAILY #90 tabs 11/20/23 insulin glargine 100 unit/mL (3 40 unit (0.4 mL) subcut DAILY #60 02/15/24 mL) subcutaneous pen (Basaglar mL KwikPen U-100 Insulin) apixaban 2.5 mg tablet (Eliquis) 2.5 mg PO BID #180 tabs 02/20/24 duloxetine 30 mg capsule,delayed 30 mg PO DAILY #90 tab-caps 02/20/24 release epinephrine 0.3 mg/0.3 mL 0.3 mg (0.3 mL) IM ONCE #2 ea 02/20/24 injection, auto-injector (EpiPen 2-Erick) insulin aspart U-100 100 unit/mL 10 unit (0.1 mL) subcut TID #45 mL 02/20/24 (3 mL) subcutaneous pen (Novolog FlexPen U-100 Insulin aspart) levetiracetam 750 mg tablet 750 mg PO BID #180 tabs 02/21/24 tramadol 50 mg tablet 50 mg PO BID PRN pain #60 tabs 02/21/24 fluconazole 150 mg tablet 150 mg PO Q3D #5 tabs 04/04/24 ondansetron 4 mg disintegrating 4 mg translingual Q8H PRN Nausea/ 04/11/24 tablet vomiting #30 tabs torsemide 20 mg tablet 40 mg (2 x 20 mg) PO BID #120 tabs 04/18/24 Allergies Allergy/AdvReac Type Severity Reaction Status Date / Time venom-honey bee Allergy Severe ANAPHYLAXIS Verified 04/18/24 15:48 oxycodone Allergy Mild Visual Unverified 04/18/24 15:48 Disturbances adhesive Allergy BLISTERS Verified 04/18/24 15:48 General STEPHANIE: 2 Review of Systems All systems reviewed & are unremarkable except as noted in HPI and below Exam Narrative Exam Narrative: GENERAL APPEARANCE: baseline morbid obesity, non-toxic, awake and alert, atraumatic, no acute distress. SKIN: Warm, pink, dry, intact, without rashes/lesions/ulcerations. HEAD: Normocephalic, atraumatic, normal hair distribution for gender/age. EYES: Normal conjunctiva, no exudates on lids/lashes. ENT: Nares patent, no circumoral cyanosis, no facial swelling NECK: Supple, trachea midline, painless cervical ROM. LUNGS/CHEST: Difficult auscultation due to body habitus, non-labored respirations on room air, normal A/P diameter, symmetrical expansion, no chest wall deformity HEART (CV/PV): Regular rate and rhythm without murmur, no peripheral edema, no JVD. ABDOMEN: Soft, non-distended, no guarding mild upper abdominal pain and tenderness on palpation without peritoneal signs. MSK: Normal ROM, no swelling/deformity to bilateral UEs or LEs, moving all extremities without weakness, no cyanosis, spine midline without tenderness, normal curvature. NEURO: Mental Status AAOx4 - alert to person, place, time, events No facial droop, no forehead involvement. Motor: No focal weakness - strength 5/5 in bilateral UEs and LEs, proximal and distal, symmetric. Sensory: sensation intact to light touch globally. Gait NT. PSYCH: euthymic, cooperative, pleasant, appropriate speech Medical Decision Making This dictation utilizes [id number] dictation software and may contain unedited grammatical errors. 73 year-old female presents to ED today by EMS with a chief complaint of SOB since Monday, PCP recommended ED evaluation. Patient was recently admitted at [facility] (03/24/24) for progression of her Mobitz Type II Heart block to Complete Block and had a Medtronic Micro Pacemaker implanted. Has longstanding COPD and HFpEF, severe t2DM, CKD, and paroxysmal atrial fibrillation with implanted Watchman Device. Patient has home health services, and does normally walk short distances- noted improvement in her baseline energy levels at Cardiology visit two days ago after pacemaker implantation. Quality described as not painful, having shortness of breath even with short walks to the bathroom in her home, no radiation to fever, cough, hemoptysis, increasing peripheral edema, endorses some upper abdominal pain which is new, denies headache or altered mentation. Severity is described as moderate to severe. Palliating factors include increased use of her home O2. Provoking factors include recent hospitalization and pacemaker implantation. Patients' medical history: CHF with preserved ejection fracture, paroxysmal atrial fibrillation, Mobitz type II-Watchman device implanted- progressed to 3rd degree heart block, with recent pacemaker placement (medtronic micra - March 2024), chronic hypoxic respiratory failure, obesity, nocturnal hypoxia, home O2 use, T2DM, COPD, epileptic seizures, CKD, hyperlipidemia, obesity. Family and social history: does home PT, has home health aides, exercise inhibited due to severe obesity. Pertinent exam findings / vital signs include difficult auscultation due to body habitus, pulse at the left radial is irregular and bradycardic in the 40s on palpation, right upper quadrant and left upper quadrant abdominal tenderness, no pitting peripheral edema. Differential / pathologies of concern include CHF exacerbation, pneumonia, sepsis, ACS, debility. Diagnostic studies of: -CBC, CMP, Lipase, Lactate, Magnesium, Trop I, BNP, VBG, CRP, EKG, CXR, Pacer Interp. -CBC shows a mild leukocytosis of 11.1, improved anemia from prior visit in February, elevated absolute neutrophils as well as monocytes and eosinophils -VBG shows compensated pH of 7.33 with CO2 retention of 67 -Lactate negative -CMP shows baseline creatinine of 2.4 -Mildly low magnesium at 1.7, would replete with normal p.o. intake -LFTs benign -Troponin I negative with reliable onset -CRP negative do not suspect acute infection -BNP is elevated but has been higher in the past that is 733 -Lipase negative -EKG shows wandering atrial pacemaker 93 bpm, some LVH, some ST depression in leads II and III with no reciprocal elevation, some mild ST depression in V4 V5, normal axis, LBBB, does not meet [place] Criteria, normal QT QTc, slightly prolonged [place], consistent with priors from 2 days ago -CXR shows clear lungs, limited due to body habitus Interventions of: -Immediately weaned home O2, patient is resting at 95% on RA. -Medtronic rep states her Micra pacer is working properly- -Will speak with [facility] EP - [employer] recommended being seen in office if she's in atrial fibrillation it may be affecting the Micra pacer -Speaking with [facility] EP as the patient is in an irregular paced rhythm, with occasional mismatch of palpable pulse in 40s and on monitor in 70s-90s. Unfamiliar with complications regarding this -Spoke with Dr. Lara [facility] EP- unconcerned if it's not capturing every beat, they recommend she send a transmission to them of the device which she can do at home, patient comfortable with this plan. ED Course/Assessment/Plan: 73-year-old female with extensive cardiac history as well as baseline obesity and debility presents with increasing shortness of breath even with short walks at home, presents in a wandering atrial pacemaker rhythm, there is no concern for acute coronary syndrome or overt infection or pneumonia as cause of her shortness of breath, I do suspect this insidious onset of debility, patient does have home health and PT visits, I discussed her EKG and pacemaker findings with electrophysiology at [facility], they recommend that she send a transmission from home to them and they will contact her. She is not in any respiratory distress or any hypoxic respiratory failure beyond her baseline here in the emergency department and I recommend she return home with her baseline O2, patient was comfortable with this disposition and will return for any worsening chest pain or shortness of breath, cough or fever. Findings not consistent with pneumonia, ACS, sepsis, CHF exacerbation, COPD exacerbation, likely just insidious debility. Disposition of shortness of breath with exertion. Patient verbalized understanding of the plan and return to ED criteria and engaged in shared decision making. Medical Records Medical records reviewed: Yes I reviewed the patient's medical records. Imaging Data Radiologic Study: Attestation: I personally reviewed and interpreted this imaging study as follows: Imaging: X-Ray Radiologist's impression: EXAM: XR CHEST 2V PA LATERAL CLINICAL HISTORY: shortness of breath TECHNIQUE: 2D digital imaging was performed. Two views. COMPARISON: CR,XR XR CHEST 2V PA LATERAL from 04/15/2021 CR XR PORTABLE CHEST AP from 03/19/2024 FINDINGS: Exam limited by under penetration particularly on the AP view. HEART: Enlarged. Status post CABG. Aorta: Not dilated. PULMONARY VASCULATURE: Normal. MEDIASTINUM: Unremarkable. LUNGS: Clear. PLEURAL SPACE: No pleural effusion or pneumothorax. BONE:Sternal wires. Hardware in cervical thoracic spine. SOFT TISSUES: Unremarkable. IMPRESSION: Limited exam. No acute abnormality. Lab Data Lab results reviewed: Yes I reviewed the patient's lab results. Labs: Laboratory Tests Range/Units 04/18/24 15:52 WBC (4.4-10.8) 10^3/uL 11.18 H RBC (3.93-5.22) 10^6/uL 4.42 Hgb (11.2-15.7) g/dL 11.1 L Hct (36.0-46.0) % 39.0 MCV (80-95) fL 88 MCH (27.0-33.0) pg 25.1 L MCHC (32.0-36.0) % 28.5 L RDW (11.7-14.6) % 16.5 H Plt Count (130-400) 10^3/uL 350 MPV (8.0-11.0) fL 9.8 Immature Gran % % 0.5 Neutrophils % % 62.9 Lymphocytes % % 18.2 Monocytes % % 8.3 Eosinophils % % 8.9 Basophils % % 1.2 Nucleated RBC % (0.0-0.3) % 0.0 Absolute Neutrophils (1.2-6.7) 10^3/uL 7.03 H Absolute Lymphocytes (1.2-3.4) 10^3/uL 2.03 Absolute Monocytes (0.1-0.8) 10^3/uL 0.93 H Absolute Eosinophils (0.0-0.7) 10^3/uL 1.00 H Absolute Basophils (0.0-0.2) 10^3/uL 0.13 VBG pH (7.31-7.41) 7.33 VBG pCO2 (41-51) mmHg 67 H* VBG pO2 mmHg 33 VBG HCO3 (23-28) mmol/L 36 H VBG Total CO2 (24-29) mmol/L 33 H VBG O2 Saturation % 56 VBG Base Excess (-2-3) mmol/L 10 H VBG Lactate (0.6-1.4) mmol/L 0.9 Sodium (136-145) mmol/L 145 Potassium (3.5-5.1) mmol/L 4.3 Chloride (98-107) mmol/L 104 Carbon Dioxide (21.0-32.0) mmol/L 35.3 H Anion Gap (3-11) mmol/L 5.7 BUN (7-18) mg/dL 51 H Creatinine (0.55-1.02) mg/dL 2.4 H Est GFR (CKD-EPI 2020) (mL/min/1.73m2) 21.06 Glucose (74-106) mg/dL 76 Calcium (8.5-10.1) mg/dL 9.2 Magnesium (1.8-2.4) mg/dL 1.7 L Total Bilirubin (0.2-1.0) mg/dL 0.38 AST (15-37) U/L 13 L ALT (14-59) U/L 21 Alkaline Phosphatase (46-116) U/L 93 Troponin I (< or =60) ng/L < 50 C-Reactive Protein (<or=0.5) mg/dL < 0.50 NT-Pro-B Natriuret Pep (<300) pg/mL 733 H Total Protein (6.4-8.2) g/dL 7.3 Albumin (3.4-5.0) g/dL 3.5 Lipase (16-77) U/L 11 L Quality:SDOH Health Related Social Needs: No Data to Display PFSH All Active Problems (Updated 04/18/24 @ 19:00 by SOLEDAD Langley) Shortness of breath on exertion (Acute) CHF (congestive heart failure) (Chronic) HFpEF Bradycardia (Acute) Mobitz type 2 second degree atrioventricular block (Acute ~03/19/24) Left bundle branch block (Acute) Posterior tibial tendon dysfunction (Acute) 02/03/16 Ankle pain (Acute 03/13/14) Numbness and tingling in left upper extremity (Acute) Hypoxia (Acute) Vaginal atrophy (Acute) Multiple falls (Acute) Chronic hypoxic respiratory failure (Acute) Obesity (Chronic) Nocturnal hypoxia (Acute) Pulmonary hypertension (Acute) Elevated serum creatinine (Acute) Vaginal itching (Acute) Osteoarthritis of right knee (Acute) Uterine polyp (Acute) Postmenopausal bleeding (Acute) Low magnesium level (Acute) Hyperparathyroidism (Acute) Hypocalcemia (Acute) Gout (Chronic) Right knee pain (Acute) Arthropathies (Acute) Skin tear (Acute) Congestive heart failure (Chronic) Preserved ejection fraction-followed by [facility]ology at [facility] Type 2 diabetes mellitus with diabetic nephropathy (Acute) Coronary artery disease (Chronic) Chronic kidney disease, stage 4 (severe) (Acute) 12/2021, Cr-2.5 Bimalleolar ankle fracture (Acute) s/p ORIF on 10/07 Cyst of lateral meniscus of right knee (Acute) Wound abscess (Acute) Medical History (Updated 04/18/24 @ 19:00 by SOLEDAD Langley) Pacemaker Medtronic Micra [facility] 03/24/24 RH Presence of Watchman left atrial appendage closure device [facility] 01/03/19 RH UTI (urinary tract infection) Chronic obstructive lung disease Palliative care patient Fracture of proximal end of right fibula Closed trimalleolar fracture of right ankle (10/03/21) Closed avulsion fracture of condyle of right femur Tear of lateral meniscus of right knee Medial meniscus tear CHF (congestive heart failure) IDDM (insulin dependent diabetes mellitus) Myoclonic epileptic seizures Heart failure with preserved ejection fraction, borderline, class III Pancreatic atrophy DVT (deep venous thrombosis) CAD (coronary artery disease), [place] coronary artery DNR no code (do not resuscitate) Constipation Atrial flutter Gram-positive bacteremia Diabetes mellitus (09/20/10) Tarsal tunnel syndrome (06/11/13) Anemia CKD (chronic kidney disease) stage 3, GFR 30-59 ml/min Cr about 2.5 Postmenopausal bleeding neg. endometrial biopsy Menopausal syndrome 07/11/03 Hepatomegaly 06/10/04 Abnormal mammography 08/10/06 Diabetes mellitus 09/20/10 Positive Microalbumin Tarsal tunnel syndrome 06/11/13 Hyperlipidemia (08/10/00) Spinal stenosis of lumbar region (02/15/16) Smoker (06/30/16) 01/17/17 1-2 cig/wk Rotator cuff syndrome (08/01/09) Renal impairment (07/11/03) ADRENAL MASS. F/U W/ KINLAW positive microalbumin Primary osteoarthritis of left hip (09/17/15) Postoperative wound dehiscence (12/23/15) Low back pain (04/10/03) DISC HERNIATION L4. MULTILEVEL DJD/SPINAL STENOSIS BY MRI; S/P surgery Hip joint inflamed (09/03/15) Hammer toe Left/right Folate deficiency (02/15/16) Carpal tunnel syndrome (08/10/06) BILATERAL R S/P SURGERY BMI 40.0-44.9, adult (12/02/14) Vitamin D deficiency Cervical spondylosis with myelopathy Atrial fibrillation Gout Carpal tunnel syndrome Spinal stenosis of lumbar region at multiple levels Restless leg syndrome Essential hypertension Surgical History (Updated 03/28/24 @ 13:47 by Barry Guerrero RN) Hx of CABG S/P ORIF (open reduction internal fixation) fracture RT ANKLE S/P CABG (coronary artery bypass graft) (01/03/19) 4 vessel CABG and LA appendage excision, Dr. Nav Wang, [facility], [place], [place] History of gynecologic surgery endometrial biopsy-neg S/P carpal tunnel release H/O Spinal surgery multiple spine surgeries; low back x 2; She had multilevel DJD and spinal stenosis; disc herniation. 2008-cervical repair; C6-C7 disc; recurrent surgery. H/O arthrodesis 04/10/23 s/p RT ankle arthodesis at [facility]- External Fixator placed D/T complications from ORIF done at [facility] on 10/07/21 History of bilateral tubal ligation 09/11/80 S/P rotator cuff repair 09/11/80 History of orthopedic surgery 09/11/97 tarsal tunnel release S/P cholecystectomy 09/11/12 History of hip surgery 11/10/15 left hip arthroplasty 12/04/15-placement of wound VAC to left hip Status post incision and drainage 12/04/15 left hip surgical wound dehiscence and infection Cataract (01/07/14) FOLLOWED BY OPTICAL EXPRESSIONS Family History Mother Diabetes Essential hypertension Personal history of malignant neoplasm KIDNEY/LIVER/BRAIN Heart disease Hyperlipidemia Stroke Asthma Father Diabetes Essential hypertension Personal history of malignant neoplasm BONE Heart disease Asthma Sister Diabetes Essential hypertension Depression Heart disease Asthma Grandfather No problems noted. Grandfather No problems noted. Grandmother Personal history of malignant neoplasm UTERINE Grandmother Diabetes Aunt Personal history of malignant neoplasm BREAST Brother Hyperlipidemia Stroke Sister Asthma Son Asthma Daughter Depression Asthma Daughter Asthma Daughter Depression Neoplasm Asthma Brother No problems noted. Social History Smoking/Tobacco Use Status: Former Tobacco Use Quit Date: 12/10/18 Tobacco: How many years used: 20 Smoking risk assessment performed?: Yes Alcohol Intake: never Drug use: Never Substance use type: does not use Household members: children and other Details: 2 Housing: apartment Number of Children: 4 number of grandchildren: 4 current occupation: [employer] Pets and animals: Yes Pets and animals: cat(s), dog(s) and horse(s) Current gender identity: female What is your relationship status?: Panel score (0-1 are the most socially isolated patients): 0 What type of physical activity do you participate in: none, walking and additional Details: would like to start now that it's warm Duration: 15-30 minutes/day Saniya/Nondenominational: Uatsdin Special saniya needs: No Seatbelt use: always Do you feel safe at home: Yes Do you feel safe in your relationship?: Yes Additional Social history: lives at home with family
[2024-04-18 16:09] LABS: BE (Venous) 10 mmol/L (-2-3); HCO3 (Venous) 36 mmol/L (23-28); Lactate 0.9 mmol/L (0.6-1.4); O2 Sat (Venous) 56 %; TCO2 (Venous) 33 mmol/L (24-29); pH (Venous) 7.33 (7.31-7.41); pO2 (Venous) 33 mmHg
[2024-04-18 16:10] LABS: Abs Immature Grans 0.06 10^3/uL (0.0-0.06); Absolute Basophil Count 0.13 10^3/uL (0.0-0.2); Absolute Lymphocyte Count 2.03 10^3/uL (1.2-3.4); Absolute Monocyte Count 0.93 10^3/uL (0.1-0.8); Absolute Neutrophil Count 7.03 10^3/uL (1.2-6.7); Basophils % 1.2 %; Eosinophils % 8.9 %; HGB 11.1 g/dL (11.2-15.7); Immature Grans % 0.5 %; Lymphocytes % 18.2 %; MCH 25.1 pg (27.0-33.0); MCHC 28.5 % (32.0-36.0); MCV 88 fL (80-95); MPV 9.8 fL (8.0-11.0); Monocytes % 8.3 %; Neutrophils % 62.9 %; Platelet Count 350 10^3/uL (130-400); RBC 4.42 10^6/uL (3.93-5.22); RDW 16.5 % (11.7-14.6); RDW-SD 53.9 fL; WBC 11.18 10^3/uL (4.4-10.8); pCO2 (Venous) 67 mmHg (41-51)
--- NOTE | 2024-04-18 16:17 | NUR.NOTE ---
1600: [employer] pacer intgerrogation completed Nursing Note:
--- NOTE | 2024-04-18 16:21 | DI.RAD_ITS ---
Exam(s) XR CHEST 2V PA LATERAL EXAM: XR CHEST 2V PA LATERAL CLINICAL HISTORY: shortness of breath TECHNIQUE: 2D digital imaging was performed. Two views. COMPARISON: CR,XR XR CHEST 2V PA LATERAL from 04/15/2021 CR XR PORTABLE CHEST AP from 03/19/2024 FINDINGS: Exam limited by under penetration particularly on the AP view. HEART: Enlarged. Status post CABG. Aorta: Not dilated. PULMONARY VASCULATURE: Normal. MEDIASTINUM: Unremarkable. LUNGS: Clear. PLEURAL SPACE: No pleural effusion or pneumothorax. BONE:Sternal wires. Hardware in cervical thoracic spine. SOFT TISSUES: Unremarkable. IMPRESSION: Limited exam. No acute abnormality. DATA REPOSITORY: RADIATION DOSE DELIVERED:
[2024-04-18 16:36] LABS: ALT 21 U/L (14-59); AST 13 U/L (15-37); Albumin 3.5 g/dL (3.4-5.0); Alkaline Phosphatase 93 U/L (46-116); Anion Gap 5.7 mmol/L (3-11); BUN 51 mg/dL (7-18); Bilirubin, Total 0.38 mg/dL (0.2-1.0); CO2 35.3 mmol/L (21.0-32.0); CREATININE 2.4 mg/dL (0.55-1.02); Calcium 9.2 mg/dL (8.5-10.1); Chloride 104 mmol/L (98-107); Estimated GFR 21.06 (mL/min/1.73m2); Glucose 76 mg/dL (74-106); Lipase 11 U/L (16-77); Magnesium 1.7 mg/dL (1.8-2.4); NT-proBNP 733 pg/mL (<300); Potassium 4.3 mmol/L (3.5-5.1); Sodium 145 mmol/L (136-145); Total Protein 7.3 g/dL (6.4-8.2); Troponin I < 50 ng/L (< or =60)
[2024-04-18 16:38] LABS: C-Reactive Protein < 0.50 mg/dL (<or=0.5)
== END 2024-04-18 19:19 | disposition home or self-care (01) ==
LOC: ER 19:00 → RED 19:19
PROVIDERS: Emergency Provider Physician Assistant; PCP Family Medicine
DX: R06.02 Shortness of breath (principal); I44.7 Left bundle-branch block, unspecified; J44.9 Chronic obstructive pulmonary disease, unspecified; I48.91 Unspecified atrial fibrillation; I25.10 Atherosclerotic heart disease of native coronary artery without angina pectoris; I13.0 Hypertensive heart and chronic kidney disease with heart failure and stage 1 through stage 4 chronic kidney disease, or unspecified chronic kidney disease; E11.22 Type 2 diabetes mellitus with diabetic chronic kidney disease; N18.30 Chronic kidney disease, stage 3 unspecified; I50.9 Heart failure, unspecified; Z86.718 Personal history of other venous thrombosis and embolism; Z79.82 Long term (current) use of aspirin; Z79.01 Long term (current) use of anticoagulants; Z79.4 Long term (current) use of insulin; Z95.0 Presence of cardiac pacemaker
CPT/HCPCS: 80053; 82805; 83690; 93005; 99285; 71046; 83605; 83735; 83880; 84484; 85025; 86140; 93010; 99284

== ENCOUNTER 2024-05-20 18:46 | Outpatient (REF) | payer OTHER, MEDICAID, SELFPAY ==
[2024-05-20 18:20] LABS: Bilirubin Negative (Negative); Blood Trace-intact (Negative); Clarity Sl Cloudy (Clear); Glucose Negative (Negative); Ketones Negative (Negative); Leukocyte Esterase Large (Negative); Nitrite Negative (Negative); Urobilinogen 0.2 mg/dL (Up to 0.2); pH 5.5 (5-8)
[2024-05-20 18:25] LABS: Bacteria Moderate HPF (Negative); Crystals Negative HPF (Negative); Epithelial Cells Many HPF (Negative); WBC 20-50 HPF (0-5)
[2024-05-20 18:26] LABS: C & S Indicated? No/Sq. Contamination; Casts Negative LPF (Negative); Mucus Trace (Negative)
== END 2024-05-20 18:47 | disposition home or self-care (01) ==
LOC: LBN 18:46
PROVIDERS: PCP Family Medicine; Visit Provider Family Medicine
DX: R30.0 Dysuria (principal); R82.89 Other abnormal findings on cytological and histological examination of urine
CPT/HCPCS: 81003; 81015

== ENCOUNTER 2024-05-21 18:23 | Outpatient (REF) | payer OTHER, MEDICAID, SELFPAY | END 2024-05-21 18:24 | disposition home or self-care (01) | LOC: LBN 18:23 | PROVIDERS: PCP Family Medicine; Visit Provider Family Medicine | DX: N39.0 Urinary tract infection, site not specified; Z87.440 Personal history of urinary (tract) infections | CPT/HCPCS: 87077; 81003; 87086; 87186 ==

== ENCOUNTER 2024-06-07 11:58 | Outpatient (REF) | payer OTHER, MEDICAID, SELFPAY | END 2024-06-07 11:59 | disposition home or self-care (01) | LOC: LBN 11:58 | PROVIDERS: PCP Family Medicine; Visit Provider Family Medicine | DX: N39.0 Urinary tract infection, site not specified (principal); B96.29 Other Escherichia coli [E. coli] as the cause of diseases classified elsewhere | CPT/HCPCS: 87077; 81003; 81015; 87086; 87186 ==

== ENCOUNTER 2024-06-25 14:04 | Outpatient (REF) | payer OTHER, MEDICAID, SELFPAY ==
[2024-06-25 15:35] LABS: Bilirubin Negative (Negative); Blood Negative (Negative); Clarity Clear (Clear); Glucose Negative (Negative); Ketones Negative (Negative); Leukocyte Esterase Negative (Negative); Nitrite Negative (Negative); Urobilinogen 0.2 mg/dL (Up to 0.2); pH 5.5 (5-8)
== END 2024-06-25 14:05 | disposition home or self-care (01) ==
LOC: LBN 14:04
PROVIDERS: PCP Family Medicine; Visit Provider Family Medicine
DX: Z87.440 Personal history of urinary (tract) infections (principal); N18.4 Chronic kidney disease, stage 4 (severe)
CPT/HCPCS: 81003

== ENCOUNTER → 2024-07-08 14:23 | Outpatient (BNVA) | payer OTHER, MEDICAID, SELFPAY | PROVIDERS: PCP Family Medicine; Referring Provider Family Medicine; Visit Provider Physician Assistant Surgical | DX: G47.34 Idiopathic sleep related nonobstructive alveolar hypoventilation (principal); I27.20 Pulmonary hypertension, unspecified; J96.11 Chronic respiratory failure with hypoxia | CPT/HCPCS: 99214 ==

== ENCOUNTER 2024-08-15 01:43 | Outpatient (CLI) | payer OTHER, MEDICAID, SELFPAY ==
--- NOTE | 2024-08-15 07:45 | DI.DEXA_ITS ---
Exam(s) XR DEXA BONE DENSITY W/WO LUIS EXAM: XR DEXA BONE DENSITY W/WO LUIS CLINICAL HISTORY: postmenopausal status,screening for osteoporosis,z78.0 TECHNIQUE: COMPARISON: CR XR HIP LT AP LAT ONLY from 08/10/2020 FINDINGS: Lateral Spine Image: Unremarkable. No compression deformities identified. Right hip: Total T-Score: -2.2 Total Z-Score: -0.6 T- and Z-scores: The overall findings are consistent with osteopenia. There is osteoporosis in the f emoral neck with a T-score of -3.1. Lumbar Spine: Total T-Score: -0.5 Total Z-Score: 1.7 T- and Z-scores: There is no evidence of osteoporosis. IMPRESSION: Osteoporosis in the right femoral neck.
--- NOTE | 2024-08-15 11:25 | DI.MAMMO_ITS ---
Exam(s) MG MAMMO SCREENING 60 MIN DUR EXAM: MG MAMMO SCREENING 60 MIN DUR CLINICAL HISTORY: breast cancer screening,z12.31 TECHNIQUE: Mammograms were interpreted according to the usual protocol including computer analysis w [employer] CAD system, tomosynthesis and C-view imaging. COMPARISON: 2014 and 2016 FINDINGS: The breasts are composed of mainly fatty density , Breast Density category A. No suspicious masses or suspicious microcalcifications are seen. No skin thickening or abnormal axillary lymph nodes are seen. There has been no significant change from prior exams. IMPRESSION: BI-RADS Category 1, Negative mammogram Yearly screening mammography is recommended. Breast Density - Category A, fatty density. A negative radiographic report should not delay biopsy if a dominant or clinically suspicious mass is present. Up to ten percent of cancers are not identified on mammography. A negative report may reinforce clinical impression. Adenosis and dense breasts may obscure an underlying neoplasm. False positive reports average 6 to 10%. Patient will receive a letter notifying them of these results.
== END 2024-08-15 02:03 ==
LOC: DI 01:43
PROVIDERS: PCP Family Medicine; Visit Provider Family Medicine
DX: Z78.0 Asymptomatic menopausal state (principal); Z12.31 Encounter for screening mammogram for malignant neoplasm of breast; Z13.820 Encounter for screening for osteoporosis; M81.0 Age-related osteoporosis without current pathological fracture
CPT/HCPCS: 77063; 77067; 77080

== ENCOUNTER 2024-08-26 15:28 | Outpatient (REF) | payer OTHER, MEDICAID, SELFPAY ==
[2024-08-26 15:47] LABS: Bilirubin Negative (Negative); Blood Negative (Negative); Clarity Clear (Clear); Glucose Negative (Negative); Ketones Negative (Negative); Leukocyte Esterase Small (Negative); Nitrite Negative (Negative); Urobilinogen 0.2 mg/dL (Up to 0.2); pH 5.5 (5-8)
[2024-08-26 16:03] LABS: Bacteria Moderate HPF (Negative); C & S Indicated? No/Sq. Contamination; Casts Negative LPF (Negative); Crystals Negative HPF (Negative); Epithelial Cells Many HPF (Negative); Mucus Negative (Negative); Other Cells Rare Transitional (Negative); RBC 0-2 HPF (0-2)
== END 2024-08-26 15:29 | disposition home or self-care (01) ==
LOC: LBN 15:28
PROVIDERS: PCP Family Medicine; Visit Provider Obstetrics & Gynecology Reproductive Endocrinology
DX: R30.0 Dysuria (principal)
CPT/HCPCS: 81003; 81015

== ENCOUNTER 2024-08-30 16:33 | Outpatient (REF) | payer OTHER, MEDICAID, SELFPAY ==
[2024-08-30 16:05] LABS: Bilirubin Negative (Negative); Blood Negative (Negative); Clarity Clear (Clear); Glucose Negative (Negative); Ketones Negative (Negative); Leukocyte Esterase Negative (Negative); Nitrite Positive (Negative); Specific Gravity 1.015 (1.005-1.025); Urobilinogen 0.2 mg/dL (Up to 0.2); pH 5.5 (5-8)
[2024-08-30 16:14] LABS: Bacteria Moderate HPF (Negative); Casts Negative LPF (Negative); Crystals Negative HPF (Negative); Epithelial Cells Few HPF (Negative); Mucus Negative (Negative); RBC 0-2 HPF (0-2)
[2024-08-30 16:15] LABS: C & S Indicated? Yes
== END 2024-08-30 16:34 | disposition home or self-care (01) ==
LOC: LBN 16:33
PROVIDERS: PCP Family Medicine; Visit Provider Family Medicine
DX: R31.9 Hematuria, unspecified (principal)
CPT/HCPCS: 87077; 81003; 81015; 87086; 87186

== ENCOUNTER 2024-09-26 19:02 | Outpatient (REF) | payer MEDICARE, MEDICAID, SELFPAY ==
[2024-09-26 17:40] LABS: Bilirubin Negative (Negative); Blood Negative (Negative); Clarity Clear (Clear); Glucose Negative (Negative); Ketones Negative (Negative); Leukocyte Esterase Trace (Negative); Nitrite Negative (Negative); Urobilinogen 0.2 mg/dL (Up to 0.2)
[2024-09-26 17:52] LABS: Bacteria Rare HPF (Negative); C & S Indicated? No; Casts Negative LPF (Negative); Crystals Negative HPF (Negative); Epithelial Cells Rare HPF (Negative); Mucus Negative (Negative); RBC Negative HPF (0-2)
== END 2024-09-26 19:03 | disposition home or self-care (01) ==
LOC: LBN 19:02
PROVIDERS: PCP Family Medicine; Visit Provider Family Medicine
DX: R31.9 Hematuria, unspecified (principal)
CPT/HCPCS: 81003; 81015

== ENCOUNTER 2024-11-13 13:44 | Outpatient (CLI) | payer MEDICARE, MEDICAID, SELFPAY ==
--- NOTE | 2024-11-13 13:45 | RT.EKG_ITS ---
APPROVED REPORT Exam: Resting ECG Reason for Exam: PAF Patient Location: O HR:69 bpm ECG Measurements Heart Rate 69 AXIS AZ 252 P 0 QRSd 130 QRS 65 QT 375 T 228 QTc 402 Conclusion Sinus rhythm...normal P axis, V-rate 50- 99 Prolonged AZ interval...AZ >220, V-rate 50- 90 Left bundle branch block...QRSd>120, broad/notched R
== END 2024-11-13 13:45 | disposition home or self-care (01) ==
LOC: DI.CARD 13:55
PROVIDERS: PCP Family Medicine; Visit Provider Internal Medicine Cardiovascular Disease
DX: I25.10 Atherosclerotic heart disease of native coronary artery without angina pectoris; I44.1 Atrioventricular block, second degree
CPT/HCPCS: 93010

== ENCOUNTER → 2024-11-13 13:44 | Outpatient (BNVA) | payer MEDICARE, MEDICAID, SELFPAY | PROVIDERS: PCP Family Medicine; Referring Provider Family Medicine; Visit Provider Internal Medicine Cardiovascular Disease | DX: Z95.810 Presence of automatic (implantable) cardiac defibrillator (principal); I44.7 Left bundle-branch block, unspecified | CPT/HCPCS: 93005; 93279 ==

== ENCOUNTER 2025-01-06 14:36 | Outpatient (CLI) | payer MEDICARE, MEDICAID, SELFPAY ==
--- NOTE | 2025-01-06 13:30 | DI.US_ITS ---
Exam(s) US LOWER EXTREMITY VENOUS RT EXAM: US LOWER EXTREMITY VENOUS RT CLINICAL HISTORY: ? swelling in right leg R60.9 EDEMA. TECHNIQUE: Lower extremity venous ultrasound performed using grayscale, color-flow, and spectral Do ppler analysis. COMPARISON: No exams were available for comparison FINDINGS: The common femoral, femoral and popliteal veins demonstrate normal compressibility, augmentation, and color Doppler. The posterior tibial and peroneal veins are patent. No saphenous vein thrombosis or other superficial venous thrombosis is seen. No hematoma or Salgado's cyst is seen. IMPRESSION: Negative lower extremity ultrasound. No evidence of DVT. DATA REPOSITORY:
== END 2025-01-06 14:56 ==
LOC: DI 14:37
PROVIDERS: PCP Family Medicine; Visit Provider Family Medicine
DX: R60.9 Edema, unspecified (principal)
CPT/HCPCS: 93971

== ENCOUNTER 2025-01-31 06:00 | Day surgery (SDC) | payer MEDICARE, MEDICAID, SELFPAY ==
[2025-01-31 06:27] VITALS: BP 118/77; PULSE 70; RESP 20; TEMP 36.5; O2SAT 93
[2025-01-31] MEDS: Tropicam./Phenyleph. (1/2.5%) 5 ML BTL OD ×3 (06:42→06:57)
--- NOTE | 2025-01-31 07:12 | W.ANESPRE ---
General Info Date of Service Date Performed: 01/31/25 Height: 5 ft 7 in Weight: 106.2 kg Body Mass Index (BMI): 36.6 Surgical Procedure: Operation Date: 01/31/25 07:40 Proposed Procedure Side Surgeon p Cataract Extraction with IOL Implant Right Naveed Raymond MD Meds Allergies and Home Medications Allergies Allergy/AdvReac Type Severity Reaction Status Date / Time venom-honey bee Allergy Severe ANAPHYLAXIS Verified 01/31/25 06:26 oxycodone Allergy Mild Visual Verified 01/31/25 06:26 Disturbances adhesive Allergy BLISTERS Verified 01/31/25 06:26 Home Medication ?Medication ?Instructions ?Recorded albuterol sulfate 2.5 mg/3 mL 2.5 mg (3 mL) inhalation Q2H PRN 09/10/20 (0.083 %) solution for nebulization PRN shortness of breath or wheezing #180 mL pen needle, diabetic 31 gauge x #450 ea 12/10/2009/14 (1st Tier Unifine Pentips) acetaminophen 500 mg tablet 1,000 mg PO BID 11/15/22 (Tylenol Extra Strength) nystatin 100,000 unit/gram topical 1 applic topical BID #60 grams 10/19/23 powder budesonide 160 mcg-glycopyr 9 2 inh inhalation BID #10.7 grams 11/07/23 mcg-formot 4.8 mcg/actuation HFA inhaler (Breztri Aerosphere) estradiol 0.01% (0.1 mg/gram) 1 g vaginal .twice weekly #42.5 11/14/23 vaginal cream grams apixaban 2.5 mg tablet (Eliquis) 2.5 mg PO BID #180 tabs 02/20/24 duloxetine 30 mg capsule,delayed 30 mg PO DAILY #90 tab-caps 02/20/24 release epinephrine 0.3 mg/0.3 mL 0.3 mg (0.3 mL) IM ONCE #2 ea 02/20/24 injection, auto-injector (EpiPen 2-Erick) insulin aspart U-100 100 unit/mL 10 unit (0.1 mL) subcut TID #45 mL 02/20/24 (3 mL) subcutaneous pen (Novolog FlexPen U-100 Insulin aspart) ondansetron 4 mg disintegrating 4 mg translingual Q8H PRN Nausea/ 04/11/24 tablet vomiting #30 tabs insulin glargine 100 unit/mL (3 40 unit (0.4 mL) subcut DAILY #60 06/06/24 mL) subcutaneous pen (Basaglar mL KwikPen U-100 Insulin) atorvastatin 40 mg tablet 40 mg PO DAILY #90 tab-caps 07/02/24 fesoterodine 8 mg tablet,extended 8 mg PO DAILY #90 tabs 07/02/24 release 24 hr allopurinol 100 mg tablet 100 mg PO QHS #90 tab-caps 07/08/24 aspirin 81 mg tablet,delayed 81 mg PO DAILY #90 tabs 07/08/24 release (Adult Low Dose Aspirin) calcitriol 0.25 mcg capsule 0.25 mcg PO TID hypocalcemia #270 07/08/24 caps cholecalciferol (vitamin D3) 25 25 mcg PO DAILY #90 caps 07/08/24 mcg (1,000 unit) capsule magnesium chloride 71.5 mg 71.5 mg PO TID #270 tabs 07/08/24 (magnesium chloride) tablet,delayed release (Slow-Mag) meclizine 12.5 mg tablet 12.5 mg PO TID PRN dizziness #60 07/08/24 tabs metoprolol succinate 25 mg 12.5 mg (1/2 x 25 mg) PO DAILY #45 07/08/24 tablet,extended release 24 hr tabs pantoprazole 40 mg tablet,delayed 40 mg PO DAILY #90 tabs 07/08/24 release potassium chloride 20 mEq 20 meq PO BID #180 tabs 07/08/24 tablet,extended release(part/cryst) ropinirole 2 mg tablet 2 mg PO QPM PRN restless leg(s) 07/08/24 #90 tabs torsemide 20 mg tablet See Rx Instructions PO BID #180 08/07/24 tabs amlodipine 5 mg tablet 5 mg PO DAILY #90 tabs 09/06/24 roiejt-huabdepe-ljaadaa 1 cap PO TID #270 caps 09/27/24 6,000-19,000-30,000 unit capsule,delayed rel (Creon) spironolactone 25 mg tablet 25 mg PO BID #180 tabs 09/27/24 levetiracetam 750 mg tablet 750 mg PO BID #180 tabs 10/04/24 blood-glucose sensor (FreeStyle #6 ea 10/07/24 Francisco 2 Plus Sensor device) tramadol 50 mg tablet 50 mg PO BID PRN pain #60 tabs 11/14/24 B-complex with vitamin C 1 tab PO DAILY #90 tabs 11/19/24 fluconazole 150 mg tablet 150 mg PO Q3D #5 tabs 12/04/24 cephalexin 500 mg capsule 500 mg PO TID 01/29/25 Current Visit Medications: Current Medications Generic Name Dose Route Start Last Admin Trade Name Freq PRN Reason Stop Dose Admin Acetaminophen 1,000 mg 01/31/25 06:00 Acetaminophen 500 Mg Tab PO 03/02/25 05:59 Q4H PRN PRN Balanced Salt Solution 500 ml 01/31/25 06:00 Balanced Salt Soln.-Plus 500 Ml Bag OP 03/02/25 05:59 DIRECTED URBANO Miscellaneous Medication 0 ml 01/31/25 06:00 Prednisolone 1%, Moxifloxacin 0.5%, Bromfenac 0.09% 5.6ml Btl OD 03/02/25 05:59 DIRECTED URBANO Miscellaneous Medication 0 ml 01/31/25 06:00 01/31/25 06:57 Tropicam./Phenyleph. (1/2.5%) 5 Ml Btl OD 03/02/25 05:59 1 drp DIRECTED URBANO Administration Tetracaine HCl 0 ml 01/31/25 06:00 Tetracaine 0.5% 4 Ml Btl OD 03/02/25 05:59 DIRECTED URBANO PFSH Active Problems Active Problems: Problem Status Onset Code Posterior subcapsular age-related cataract, right eye Acute H25.041 Cortical age-related cataract, right eye Acute H25.011 Nuclear age-related cataract, right eye Acute H25.11 Hip region mass Acute R22.40 Overactive bladder Acute N32.81 Incontinence in female Acute R32 Frequent UTI Acute N39.0 Osteoporosis Chronic M81.0 CHF (congestive heart failure) Chronic I50.9 Mobitz type 2 second degree atrioventricular block Acute ~03/19/24 I44.1 Left bundle branch block Chronic I44.7 Chronic hypoxic respiratory failure Acute J96.11 Obesity Chronic E66.9 Nocturnal hypoxia Acute G47.34 Osteoarthritis of right knee Acute M17.11 Low magnesium level Acute R79.0 Hyperparathyroidism Acute E21.3 Gout Chronic M10.9 Type 2 diabetes mellitus with diabetic nephropathy Acute E11.21 Coronary artery disease Chronic I25.10 Chronic kidney disease, stage 4 (severe) Acute N18.4 Bimalleolar ankle fracture Acute S82.843A Multiple falls Acute R29.6 Wound abscess Acute Vaginal atrophy Acute N95.2 Hypoxia Acute R09.02 Pulmonary hypertension Acute I27.20 Posterior tibial tendon dysfunction Acute M76.829 Ankle pain Acute 03/13/14 M25.579 Numbness and tingling in left upper extremity Acute R20.0, R20.2 Medical History Medical History Hypocalcemia Cyst of lateral meniscus of right knee Pacemaker Medtronic Micra [facility] [place] 03/24/24 RH Presence of Watchman left atrial appendage closure device [facility] [place] 01/03/19 Chronic obstructive lung disease Palliative care patient Fracture of proximal end of right fibula Closed trimalleolar fracture of right ankle (10/03/21) Closed avulsion fracture of condyle of right femur Tear of lateral meniscus of right knee Medial meniscus tear 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 endometrial biopsy Hepatomegaly 06/10/04 Abnormal mammography 08/10/06 Tarsal tunnel syndrome 06/11/13 Hyperlipidemia (08/10/00) Spinal stenosis of lumbar region (02/15/16) Rotator cuff syndrome (08/01/09) Primary osteoarthritis of left hip (09/17/15) Postoperative wound dehiscence (12/23/15) Low back pain (04/10/03) DISC HERNIATION L4. MULTILEVEL DJD/SPINAL STENOSIS BY MRI; S/P surgery Hip joint inflamed (09/03/15) Hammer toe Left/right Folate deficiency (02/15/16) Carpal tunnel syndrome (08/10/06) BILATERAL R S/P SURGERY BMI 40.0-44.9, adult (12/02/14) Vitamin D deficiency Cervical spondylosis with myelopathy Atrial fibrillation Gout Spinal stenosis of lumbar region at multiple levels Restless leg syndrome Essential hypertension Surgical History Surgical History S/P ORIF (open reduction internal fixation) fracture RT ANKLE S/P CABG (coronary artery bypass graft) (01/03/19) 4 vessel CABG and LA appendage excision, Dr. Nav Wang, [facility] [place], [place] H/O Spinal surgery multiple spine surgeries; low back x 2; She had multilevel DJD and spinal stenosis; disc herniation. 2008-cervical repair; C6-C7 disc; recurrent surgery. H/O arthrodesis 04/10/23 s/p RT ankle arthodesis at [facility] [place]- External Fixator placed D/T complications from ORIF done at [facility] on 10/07/21 History of bilateral tubal ligation 09/11/80 S/P rotator cuff repair 09/11/80 History of orthopedic surgery 09/11/97 tarsal tunnel release S/P cholecystectomy 09/11/12 History of hip surgery 11/10/15 left hip arthroplasty 12/04/15-placement of wound VAC to left hip Status post incision and drainage 12/04/15 left hip surgical wound dehiscence and infection Cataract (01/07/14) FOLLOWED BY [employer] Tobacco Smoking/Tobacco Use Status: Former Tobacco Use Passive smoking exposure: No Alcohol Alcohol Intake: former Year quit: 2000 Substance Use Substance use: Never Substance use type: does not use Vital Signs and Lab Results Vital Signs Most Recent Vital Signs in EMR: Most Recent Vital Signs Temp Pulse Resp BP Pulse Ox 36.5 C 70 20 118/77 93 01/31/25 06:27 01/31/25 06:27 01/31/25 06:27 01/31/25 06:27 01/31/25 06:27 Point of Care Results Point of Care Results: Finger Stick Blood Glucose 145 01/31/25 06:18 Lab Results Blood Type / Crossmatch: No Data to Display Complete Blood Count: No Data to Display Complete Metabolic Panel: Hemoglobin A1c 6.4 % (4.5-5.7) H 01/06/25 13:15 Liver Function Panel: No Data to Display Coagulation Panel: No Data to Display Cardiac Panel: No Data to Display Arterial Blood Gas: No Data to Display Venous Blood Gas: No Data to Display Pancreas Panel: No Data to Display Thyroid Panel: No Data to Display Infectious Disease: No Data to Display Blood Cultures: No Data to Display Toxicology Panel: No Data to Display Imaging and Studies Imaging and Studies Study information below may be from another EMR and interpreted by another provider. Please see original notes in EMR for more complete details. EKG Summary: EKG PATIENT NAME: Ann-Marie Griggs UNIT #: [id number] ORDERING PROVIDER: Haseeb Hay M.D. PRIMARY CARE PROVIDER: LAISHA MCMAHON MD, DC DATE/TIME OF SERVICE: 11/13/24 1332 : 1950 PERFORMING LOCATION: .[facility] APPROVED REPORT Exam: Resting ECG Reason for Exam: PAF Patient Location: O HR:69 bpm ECG Measurements Heart Rate 69 AXIS MT 252 P 0 QRSd 130 QRS 65 QT 375 T228 QTc 402 Conclusion Sinus rhythm...normal P axis, V-rate 50- 99 Prolonged MT interval...MT >220, V-rate 50- 90 Left bundle branch block...QRSd>120, broad/notched R <Electronically signed by VICKY PICKARD MD in OV> E-Sign Date: 11/14/24 E-Sign Time: 0804 Stress Test Summary: Patient Name: Ann-Marie Griggs Unit #: [id number] Loc: [place] Ordering Provider: NanetteClarence keller Status: DIS JERROD Primary Care Provider: Laisha Mcmahon M.D., [place] Date of Exam: 01/11/22 Sex: F Admission Date: 01/10/22 : 1950 Age: 71 APPROVED REPORT Exam: Pharmacologic Patient Location: In-Patient Room/Bed: 220 Stress Nurse: Nallely Castañeda RN Ordering Provider:CLARENCE DIEUDONNE, Contact Number: BMI: 38.44 Baseline Rhythm: Sinus Rhythm Indications: Angina Medical History Medical History: CHF, DM II, Palliative care, HTN, HLD, Afib/flutter, CKD, pulm HTN Cardiac Medications: Atorvastatin, Aspirin, Atenolol, Potassium, Omeprazole, Metoprolol Succinate, Magnesium, Isosorbide, Torsemide, Inhalers Allergies: Oxycodone, bee venom, adhesive Cardiac Risk Factors: Family hx, CVD, COPD, HTN, DM II, former smoker, HLD, Obesity Previous Cardiac Procedures: CABG x4, previous [place] Pretest Chest Pain Characteristics: None Exercise History: Sedentary Physical Disabilities: Ankle Heart Sounds: Regular Stress Test Details Test: Pharmacologic stress testing performed using 0.4 mg of regadenoson per 5 mL given IV over 10 seconds. Reason for pharmacologic stress test: physical limitation. Nuclear Acquisition: Rest Tc-99m/Stress Tc-99m 1 day Rest Isotope: Tc-99m Sestamibi. Dose: 12.0 Date: 01/11/2022 Injection Time: 11:15 Stress Isotope: Tc-99m Sestamibi. Dose: 36.6 Date: 01/11/2022 Injection Time: 13:27 HR Resting HR Supine: 70 bpmMax Heart Rate (APMHR): 151.005830 bpm Target HR (85% APMHR): 128.022579 bpm Max HR Achieved: 85 bpm % of APMHR: 56.29 Recovery HR: 81 bpm BP Resting BP Supine: 128/64 mmHg Max BP: 128/64 mmHg Recovery BP: 110/68 mmHg ECG Resting ECG: Sinus Rhythm Ectopy: None Stress ECG: Sinus Rhythm ST Change: No significant ST segment changes noted Arrhythmia: Rare unifocal PVC Recovery ECG: Sinus Rhythm, Recovery ST Change: No significant ST segment changes noted Clinical Stress Symptoms: Shortness of breath, Stomach cramps Rate Pressure Product: [id number] Stress ECG Conclusion 1. The resting electrocardiogram showed minor nondiagnostic ST abnormalities 2. The patient underwent pharmacologic stress with regadenoson 3. Peak heart rate achieved was 56% of predicted for age 4. Electrocardiographic portion of the test was nondiagnostic due to inadequate heart rate 5. See MPI report Stress Test Summary STAGEHRBPSymptomsNOTES [id number] 97% 1 min post Lexiscan [id number]/60shortness of breathshortness of breath improved by minute 4, SP02 97% 3 min post Lexiscan [id number]/60SP02 97% 6 min post Lexiscan [id number]/68symptoms [id number] 97% MPI Conclusion Normal myocardial perfusion without evidence of ischemia or prior infarction EF 63%, normal wall motion Radiologist Interpretation Radiologist agrees with Statistical Engineer's Interpretation. Radiologist Interpretation by: Kaleb Huizar MD Interpretation Date/Time: 01/11/2022 15:49:36 Ordered By: Clarence Caban CC: Dictated By: Vicky Pickard M.D. 01/11/22 1352 <Electronically signed by Vicky Pickard M.D. in OV> 01/13/22 0817 Transcribed By: Vicky Pickard MD This is privileged, confidential information intended only for the provider named. Any use or distribution by any person other than this provider is strictly prohibited. If you receive this report in error, please notify us immediately at [phone] and return the original report to us at the address above. Thank-you. Echocardiogram Summary: 10/04/2021: Conclusion Mild concentric left ventricular hypertrophy. Estimated ejection fraction is 60%. Wall motion is normal Normal right ventricular size and systolic function Both atria are normal in size Mildly sclerotic trileaflet aortic valve without stenosis or regurgitation Mild mitral annular calcification, trace mitral regurgitation Normal tricuspid valve with mild regurgitation. Estimated right ventricular systolic pressure is 37 mmHg Carotid Artery Summary:: 03/2013: IMPRESSION: 1. Atherosclerosis 2. No evidence of hemodynamically significant cervical carotid artery stenosis. Pulmonary Function Summary: Pulmonary Function Test PATIENT NAME: Ann-Marie Griggs UNIT #: [id number] ADMITTING PROVIDER: Darcy Wasserman M.D. PRIMARY CARE PROVIDER: LAISHA MCMAHON MD, DC DATE OF ADMIT: 11/14/23 : 1950 Date of service: 11/14/23 Time of Service: 15:19 Pulmonary Function Test Result Indications: COPD Interpretation Spirometry: There is severe airflow limitation. No bronchodilator response. Lung Volumes: There is air trapping Diffusion Capacity: Decreased diffusion Airway Pressure: Increased airways resistance Impression Severe airflow limitation with air trapping and a decreased diffusion. Clinical Correlation therefore is recommended. cc: Dictated by: DARCY WASSERMAN MD Dictated: 11/17/23 Time: 1232 <Electronically signed by Darcy Wasserman M.D.> Date: 11/17/23 1235 Date: Date: Transcribed Date: 11/17/23 Transcribed Time: 1232 By: NATHAN This is privileged, confidential information, intended only for the provider named. Any use or distribution by any person other than this provider is strictly prohibited. If you receive this report in error, please notify us immediately at [phone] and return the original report to us at the address above. Thank you. Anesthesia Assessment and Plan Anesthesia History Personal History: No History of Anesthesia Complications Family History: No Family History of Anesthesia Complications Exercise Tolerance Exercise Tolerance: Metabolic Equivalents<4 Cardiac & Pulmonary Exam Cardiac Exam: Normal S1/S2 Heart Sounds Pulmonary Exam: Clear Bilateral Breath Sounds Implantable Cardiac Device Does patient have a Pacemaker or an ICD?: Yes Device Client Experience Consultant:: [employer] Micra Reason for Placement:: AV Block Date of Last Device Interrogation:: 12/24/24 Airway Exam Known Difficult Airway: No Mallampati Class: 1 Mouth Opening: Normal (> 3cm) Thyromental Distance: Greater than 3 cm Neck Range of Motion: Limited ROM Neck Circumference: Normal Teeth Condition: Removable Dentures/Plates Upper ASA Classification ASA Score: ASA 4 Emergency Case?: No NPO Status NPO Status: NPO Clears >2 hours, Solids >8 hours Anesthesia Plan Resuscitation Status: Full Code Anesthesia Technique: MAC Anesthesia Airway Planned: Natural Airway Pain Management: Surgeon and patient request nerve block Monitors Used: Standard Monitors Preoperative Comments:: 70 yo F for cataract. Sig PMHx: CAD (s/p CABG 2019, isosorbide mononitrate), DM (last A1c 6.4, glargine), spinal stenosis, CKDIV, CHF (torsemide), HTN (metoprolol), epilepsy (levetiracetam), Bradycardic events/syncope: PPM placed, evaluted [id number], next cards appt 11/2025. Previous Anes: closed reduction spinal (chloroprocaine 2 mL 3%, 2 attempts, 22 quincke) and regional (pop/sci and fem 20 mL 0.375% bup and 10 mL experal per site) Grade 1 mac 4, easy mask with opa. Would like sedation. Plan is placement of IV in OR and midazolam
[2025-01-31 07:28] VITALS: BMI 36.6
[2025-01-31] MEDS: Tetracaine 0.5% 4 ML BTL OD (07:36)
[2025-01-31] MEDS: Povidone-Iodine Ophth 30 ML BTL (07:39)
[2025-01-31] MEDS: Balanced Salt Soln.-PLUS 500 ML BAG OP (07:47)
[2025-01-31] MEDS: Lidocaine 1% Pres-Free 5 ML VIAL (07:47)
[2025-01-31] MEDS: Phenylephrine/Lidocaine (15/10) MG/ML 1 ML VIAL (07:48)
[2025-01-31] MEDS: Duovisc Viscoelastic System EACH 1 EACH (07:49)
[2025-01-31] MEDS: Prednisolone 1%, Moxifloxacin 0.5%, Bromfenac 0.09% 5.6ML BTL OD (08:01)
[2025-01-31] MEDS: Moxifloxacin-PF 1 MG/ML VIAL (08:01)
[2025-01-31 08:07] VITALS: BP 105/66; PULSE 69; RESP 16; TEMP 36.6; O2SAT 97
--- NOTE | 2025-01-31 08:08 | W.PM.DSUDISC ---
Date of service: 01/31/25 Discharge Plan Disposition Patient Disposition: Home Discharge Details Attending Provider: Naveed Raymond Primary Care Provider: Laisha Mcmahon Home Meds and New Rx's Prescriptions: No Action albuterol sulfate 2.5 mg /3 mL (0.083 %) solution for nebulization 2.5 mg INHALATION Q2H PRN PRN (Reason: shortness of breath or wheezing) Qty: 180 4RF Eliquis 2.5 mg tablet 2.5 mg PO BID Qty: 180 4RF epinephrine [EpiPen 2-Erick] 0.3 mg/0.3 mL auto-injector 0.3 mg IM ONCE Qty: 2 10RF duloxetine 30 mg capsule,delayed release(DR/EC) 30 mg PO DAILY Qty: 90 12RF insulin aspart U-100 [Novolog FlexPen U-100 Insulin] 100 unit/mL (3 mL) insulin pen 10 unit SC TID Qty: 45 5RF tramadol 50 mg tablet 50 mg PO BID MDD 100 PRN (Reason: pain) Qty: 60 3RF acetaminophen [Tylenol Extra Strength] 500 mg tablet 1,000 mg PO BID ropinirole 2 mg tablet 2 mg PO QPM PRN (Reason: restless leg(s)) Qty: 90 5RF Rx Instructions: Slow-Mag 71.5 mg tablet,delayed release (DR/EC) 71.5 mg PO TID Qty: 270 4RF cholecalciferol (vitamin D3) 25 mcg (1,000 unit) capsule 25 mcg PO DAILY Qty: 90 4RF allopurinol 100 mg tablet 100 mg PO QHS Qty: 90 4RF aspirin [Adult Low Dose Aspirin] 81 mg tablet,delayed release (DR/EC) 81 mg PO DAILY Qty: 90 4RF calcitriol 0.25 mcg capsule 0.25 mcg PO TID Qty: 270 4RF meclizine 12.5 mg tablet 12.5 mg PO TID PRN (Reason: dizziness) Qty: 60 4RF metoprolol succinate 25 mg tablet extended release 24 hr 12.5 mg PO DAILY Qty: 45 3RF pantoprazole 40 mg tablet,delayed release (DR/EC) 40 mg PO DAILY Qty: 90 4RF potassium chloride 20 mEq tablet,ER particles/crystals 20 meq PO BID Qty: 180 4RF Breztri Aerosphere 160-9-4.8 mcg/actuation HFA aerosol inhaler 2 inh inhalation BID Qty: 10.7 12RF (DME) pen needle, diabetic [1st Tier Unifine Pentips] 31 gauge x 1/4 needle See Dose Instructions .ROUTE .MEDSUPPLY Qty: 450 5RF Dose Instruction: As directed Rx Instructions: 5/ day E11.65. needed for several meds nystatin 100,000 unit/gram powder 1 applic topical BID Qty: 60 3RF estradiol 0.01 % (0.1 mg/gram) cream 1 g vaginal .twice weekly Qty: 42.5 5RF ondansetron 4 mg tablet,disintegrating 4 mg translingual Q8H PRN Qty: 30 3RF insulin glargine [Basaglar KwikPen U-100 Insulin] 100 unit/mL (3 mL) insulin pen 40 unit SC DAILY Qty: 60 5RF atorvastatin 40 mg tablet 40 mg PO DAILY Qty: 90 6RF fesoterodine 8 mg tablet extended release 24 hr 8 mg PO DAILY Qty: 90 4RF Rx Instructions: this is the med her ins co said had no copay torsemide 20 mg tablet See Rx Instructions PO BID Qty: 180 12RF Rx Instructions: 80mg am and 40mg pm orally twice a day; amlodipine 5 mg tablet 5 mg PO DAILY Qty: 90 6RF spironolactone 25 mg tablet 25 mg PO BID Qty: 180 4RF Creon 6,000-19,000 -30,000 unit capsule,delayed release(DR/EC) 1 cap PO TID Qty: 270 5RF levetiracetam 750 mg tablet 750 mg PO BID Qty: 180 3RF (DME) FreeStyle Francisco 2 Plus Sensor Device See Rx Instructions .Route Qty: 6 12RF Rx Instructions: As directed E11.9 B-complex with vitamin C Tablet 1 tab PO DAILY Qty: 90 4RF fluconazole 150 mg tablet 150 mg PO Q3D Qty: 5 4RF cephalexin 500 mg capsule 500 mg PO TID Discharge Instructions Stand Alone Forms: DSU Post-Op CataractBarrie (DSU) Discharge Orders Discharge Orders: Discharge Order (Routine); Ordered 01/31/25 Ordered By: Naveed Raymond DS: Diagnosis Discharge Diagnosis (1) Posterior subcapsular age-related cataract, right eye: Status: Resolved (2) Cortical age-related cataract, right eye: Status: Resolved (3) Nuclear age-related cataract, right eye: Status: Resolved
--- NOTE | 2025-01-31 08:09 | ROE_ITS ---
Operative Note Operative Note PRE-OP DIAGNOSIS: Nuclear/cortical/posterior subcapsular cataract, right eye POST-OP DIAGNOSIS: same PROCEDURE: Cataract extraction using phacoemulsification with intraocular lens implant, right eye SURGEON: Naveed Raymond ANESTHESIA TYPE: Local By Surgeon and MAC Refer to Anesthesia Record ESTIMATED BLOOD LOSS: 0 PATHOLOGY: none sent COMPLICATIONS: None Patient was transported to: same day Patient's condition: stable Implants: Mundo Clareon [id number] Indications: Progressive decreased vision due to cataract, right eye Procedure Description: CATARACT SURGERY OPERATIVE REPORT PREOPERATIVE DIAGNOSIS: Nuclear/cortical/posterior subcapsular cataract, right eye POSTOPERATIVE DIAGNOSIS: Same OPERATION: Cataract extraction using phacoemulsification with posterior chamber intraocular lens implant, right eye. IOL: IOL Sap Senior Developer/Model: Mundo Clareon [id number] IOL Power: + 20.0 diopters IOL Serial Number: [id number] Optic Diameter: 6.0mm Haptic/Overall Diameter: 13.0mm PHACO INFO: Mundo Piqniqurion Vision System with OZil and Active Fluidics Cumulative Dispersed Energy (CDE): 6.90 seconds SURGEON: Naveed Raymond MD, RONDA ANESTHESIA: Monitored Anesthesia Care (MAC), with local sub-tenon's anesthetic infiltration COMPLICATIONS: None SPECIMENS: None INDICATIONS FOR PROCEDURE: The patient is a 74-year-old lady with history of diminished visual acuity in her right eye secondary to the development of nuclear/cortical/posterior subcapsular cataract. She is significantly symptomatic that she desires cataract surgery in attempt to improve and maximize her vision. She has previously undergone cataract surgery in the other eye in 2018. See office notes for detailed information. PROCEDURE: The correct surgical eye was identified and marked as the right eye and the pupil was dilated in the preoperative area using mydriatics and cycloplegics. The dilated pupil size was 7.0 mm. The patient was brought to the operating room where cardiopulmonary monitoring was instituted and surgical time-out was performed, confirming the correct operative eye and IOL power. Intravenous sedation in the form of Versed 1 mg, followed by a second 1 mg dose. Topical anesthesia was administered and ophthalmic povidone-iodine 5% was instilled into the conjunctival fornices. The carl-ocular area was prepped with Betadine 10% solution and draped in the usual sterile fashion for intraocular surgery, including an aperture drape. A Tegaderm transparent film dressing was cut in half and used to cover the lashes and lid margins. Care was taken to sequester the lashes and lid margins under the Tegaderm dressing. A lid speculum was placed between the lids of the operative eye and the Mundo LuxOR Revalia operating microscope was maneuvered into position. Arcelia scissors were then used to make a conjunctival buttonhole approximately 6mm posterior to the limbus in the inferonasal quadrant. Blunt dissection was carried out to expose bare sclera, and a blunt-tipped sub-tenon?s anesthesia cannula was introduced and passed posteriorly along the globe where non- preserved plain lidocaine was injected into posterior sub-Tenon?s space. A sideport knife was used to make a paracentesis port. Intraocular phenylephrine/lidocaine was injected into the anterior chamber. The anterior chamber was then filled with viscoelastic. A keratome knife was used to construct a two--plane clear corneal tunnel extending 2.0mm into clear cornea. A flap was raised on the anterior capsule and capsulorhexis forceps were used to complete a continuous curvilinear capsulorhexis of 5.0 mm. Balanced salt solution was then used to perform cortical cleaving hydrodissection and nuclear hydrodelineation until the lens could be freely rotated within the capsular bag. The lens nucleus was then disassembled and removed within the capsular bag and iris plane using phacoemulsification. Residual cortical material was removed using the I/A handpiece. The posterior capsule was carefully polished to remove as much residual lens epithelial cells as safely possible. The capsular bag was then inflated and the anterior chamber deepened with cohesive viscoelastic. The lens implant described above was inserted into the capsular bag using the Mundo Autonome Injector. A Kuglen hook was used to dial the IOL into position. Residual viscoelastic was then removed first from posterior to the IOL, then from the anterior chamber using the I/A handpiece. The lens implant was noted to center nicely within the capsular bag. The incisions were stromally hydrated, and the anterior chamber was reformed using BSS. Then 0.5cc of moxifloxacin 1.0mg/ml were injected into the capsular bag and anterior chamber. The incisions were checked with a Weck spear and found to be secure. Several drops of ophthalmic povidone-iodine 5% were then applied to the eye followed by two drops of combination steroid/NSAID/antibiotic solution. The drapes were removed and a clear plastic protective eye shield was placed over the eye. The patient was then returned to Same Day Surgery in stable condition. Date of Procedure: 01/31/25
[2025-01-31 08:30] VITALS: BP 114/66; PULSE 61; RESP 14; TEMP 36; O2SAT 96
--- NOTE | 2025-01-31 08:34 | W.ANESPOSTOP ---
Postoperative Evaluation Date, Time and Location Date Performed: 01/31/25 Time Performed: 08:09 Patient Location: Day Surgery Unit Vital Signs Most Recent Imported Vital Signs: Most Recent Vital Signs Temp Pulse Resp BP Pulse Ox 36.6 C 69 16 105/66 97 01/31/25 08:07 01/31/25 08:07 01/31/25 08:07 01/31/25 08:07 01/31/25 08:07 Pain Score Most Recent Pain Score: Most Recent Pain Score Pain Level 0 01/31/25 08:07 Assessment Mental Status: Awake (Alert & Oriented to Patient Baseline) Airway and Respiratory Function: Patent airway with normal (patient baseline) respiratory exam Cardiovascular Function: Hemodynamically Stable Hydration Status: Adequately Hydrated Nausea & Vomiting: No Nausea or Vomiting Pain: Pt. Denies Any Pain Peripheral Nerve Block: Other (Local by Dr. Raymond)
== END 2025-01-31 08:36 | disposition home or self-care (01) ==
LOC: SUR 06:00
PROVIDERS: PCP Family Medicine; Visit Provider Ophthalmology
PROC: (CPT 66984; principal; 2025-01-31 07:30)
DX: H25.041 Posterior subcapsular polar age-related cataract, right eye (principal); H25.011 Cortical age-related cataract, right eye; H25.11 Age-related nuclear cataract, right eye; Z98.42 Cataract extraction status, left eye
CPT/HCPCS: 66984; 00123; V2632; J2003; J2250

== ENCOUNTER → 2025-02-13 14:37 | Outpatient (BNVA) | payer MEDICARE, MEDICAID, SELFPAY | PROVIDERS: PCP Family Medicine; Referring Provider Family Medicine; Visit Provider Physician Assistant Surgical | DX: J44.9 Chronic obstructive pulmonary disease, unspecified (principal); G47.34 Idiopathic sleep related nonobstructive alveolar hypoventilation; I27.20 Pulmonary hypertension, unspecified; J96.11 Chronic respiratory failure with hypoxia; Z87.891 Personal history of nicotine dependence | CPT/HCPCS: 99214; G0296 ==

== ENCOUNTER 2025-03-12 02:04 | Outpatient (CLI) | payer MEDICARE, MEDICAID, SELFPAY ==
--- NOTE | 2025-03-12 08:00 | DI.CTLCSR_ITS ---
Exam(s) CT CHEST LUNG CANCER SCREEN EXAM: CT CHEST LUNG CANCER SCREEN CLINICAL HISTORY: Screening for lung cancer,[employer]ER [employer], [id number]. TECHNIQUE: Imaging Protocol: Low Dose Technique CONTRAST MATERIAL: None COMPARISON: CT CT CHEST PE CTA from 03/03/[address] CHEST LUNG CANCER SCREEN from 03/12/2024 FINDINGS: CHEST: LUNGS: There are no new ominous pulmonary nodules. Scarring in the anterior segment of both upper lobes is again noted. Previously described radiopaque density in left lower lobe pulmonary vessel is again noted and may be related to prior interventional procedure. There are no new confluent infiltrates nor pleural effusions. MEDIASTINUM: There is no obvious hilar nor mediastinal adenopathy. 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 Enlargement of the ascending thoracic aorta is again noted, unchanged, measuring 4.1 cm. Diameter of the aortic arch and descending thoracic aorta are also unchanged. There is no pericardial effusion. OTHER: Gallbladder surgically absent. Bilateral adrenal masses are again noted these appears somewhat hypodense and unchanged in size and appear relatively stable when compared to CT scans dating back to 2019. there is also an exophytic mass off the superior pole of the right kidney measuring approximately 5 x 4.5 cm which from previous but nevertheless may represent a cyst but should be further investigated with ultrasound. OSSEOUS: No significant osseous lesions.Fusion hardware in the lower cervical spine again noted.. IMPRESSION: 1. No new concerning lung nodules. Radiopaque density in left lower pulmonary vessel unchanged and probably related interventional procedure. 2. Cardiac findings as above as well as 4.1 cm cm diameter of ascending thoracic aorta which is unchanged. 3. Lung RADS Cat 1S - Negative: No nodules and definitely benign nodules. Other: Clinically Significant or Potentially Clinically Significant Findings (non lung cancer) Lung-RADS 1.0 CATEGORIES: Category 0 - Prior chest CT exam(s) being located for comparison. Category 1 - Annual screening in 12 months. No nodules or definitely benign nodules. Category 2 - Annual screening in 12 months. Benign appearance. Nodules with low likelihood of becoming active cancer. Category 3 - 6-month follow-up. Probably benign. Short-term follow-up suggested. Nodules with low likelihood of becoming active cancer. Category 4A - 3-month follow-up and CT/PET if >8 mm in size. Suspicious finding. Findings which require additional testing. Category 4B - Findings which require additional testing and tissue sampling. Category 4X - Category 3 or 4 nodules with additional features or imaging findings that increases the suspicion of malignancy. Modifier S- Potentially clinically significant findings (non lung cancer) RADIATION DOSE DELIVERED: 110.93mGy.cm Total DLP DATA REPOSITORY: All CT scans at this facility are submitted to the National Radiology Data Registry (NRDR) Dose Index Registry (DIR) with the [employer] ([employer]). RADIATION OPTIMIZATION: All CT scans at this facility use at least one of these dose optimization techniques: automated exposure control; mA and/or kV adjustment per patient size (includes targeted exams where dose is matched to clinical indication); or iterative reconstruction.
== END 2025-03-12 02:24 ==
PROVIDERS: PCP Family Medicine; Visit Provider Physician Assistant Surgical
DX: Z12.2 Encounter for screening for malignant neoplasm of respiratory organs (principal); Z87.891 Personal history of nicotine dependence; R91.8 Other nonspecific abnormal finding of lung field; R93.1 Abnormal findings on diagnostic imaging of heart and coronary circulation
CPT/HCPCS: 71271

== ENCOUNTER 2025-05-02 16:20 | Outpatient (REF) | payer MEDICARE, MEDICAID, SELFPAY ==
[2025-05-02 16:21] LABS: Glucose Negative (Negative)
[2025-05-02 16:38] LABS: C & S Indicated? No; RBC 0-2 HPF (0-2)
== END 2025-05-02 16:21 | disposition home or self-care (01) ==
LOC: LBN 16:20
PROVIDERS: PCP Family Medicine; Visit Provider Family Medicine
DX: R10.9 Unspecified abdominal pain (principal); B96.29 Other Escherichia coli [E. coli] as the cause of diseases classified elsewhere
CPT/HCPCS: 81003; 81015

== ENCOUNTER 2025-05-13 09:57 | Outpatient (CLI) | payer MEDICARE, MEDICAID, SELFPAY ==
[2025-05-13 12:52] LABS: HCT 45.6 % (36.0-46.0); HGB 14.7 g/dL (11.2-15.7); MCH 29.1 pg (27.0-33.0); MCHC 32.2 % (32.0-36.0); MCV 90 fL (80-95); MPV 10.3 fL (8.0-11.0); Platelet Count 299 10^3/uL (130-400); RBC 5.06 10^6/uL (3.93-5.22); RDW 15.7 % (11.7-14.6); RDW-SD 51.7 fL; WBC 10.79 10^3/uL (4.4-10.8)
[2025-05-13 14:44] LABS: ALT 49 U/L (14-59); AST 31 U/L (15-37); Albumin 4.1 g/dL (3.4-5.0); Alkaline Phosphatase 47 U/L (46-116); Anion Gap 13.1 mmol/L (3-11); BUN 47 mg/dL (7-18); Bilirubin, Total 1.0 mg/dL (0.2-1.0); CO2 24.9 mmol/L (21.0-32.0); Calculated LDL 55 mg/dL (<100); Chloride 100 mmol/L (98-107); Cholesterol 127 mg/dL (<200); Estimated GFR 18.18 (mL/min/1.73m2); Glucose 133 mg/dL (74-106); HDL Cholesterol 47 mg/dL (>or=50); Potassium 3.7 mmol/L (3.5-5.1); Sodium 138 mmol/L (136-145); TSH (W/Ref FT4) 1.91 uIU/mL (0.36-3.74); Total Protein 7.4 g/dL (6.4-8.2); Triglyceride 126 mg/dL (<150); Vitamin B12 416 pg/mL (193-986)
[2025-05-13 15:35] LABS: Calcium 14.3 mg/dL (8.5-10.1)
== END 2025-05-13 09:58 | disposition home or self-care (01) ==
LOC: LOS 09:57
PROVIDERS: PCP Family Medicine; Visit Provider Family Medicine
DX: I10 Essential (primary) hypertension (principal); D64.9 Anemia, unspecified; E03.9 Hypothyroidism, unspecified; K29.60 Other gastritis without bleeding; Z79.01 Long term (current) use of anticoagulants
CPT/HCPCS: 36415; 80053; 80061; 85027; 82607; 84443

== ENCOUNTER 2025-05-15 12:52 | Inpatient (IN) | payer MEDICARE, MEDICAID, SELFPAY ==
[2025-05-15] VITALS (11 sets, daily range): BP systolic 108–163; BP diastolic 55–77; PULSE 56–89; RESP 11–24; TEMP 36–36.8; O2SAT 88–98
--- NOTE | 2025-05-15 13:00 | RT.EKG_ITS ---
APPROVED REPORT Exam: Resting ECG Reason for Exam: Electrolyte abnormality, Patient Location: E HR:71 bpm ECG Measurements Heart Rate 71 AXIS MD 204 P 86 QRSd 149 QRS 62 QT 423 T 225 QTc 460 Conclusion Atrial-sensed ventricular-paced rhythm...ventricular pacing tracks p-waves
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
[2025-05-15 14:20] LABS: Abs Immature Grans 0.07 10^3/uL (0.0-0.06); HCT 46.5 % (36.0-46.0); HGB 14.6 g/dL (11.2-15.7); Immature Grans % 0.7 %; MCH 28.2 pg (27.0-33.0); MCHC 31.4 % (32.0-36.0); MCV 90 fL (80-95); MPV 9.9 fL (8.0-11.0); Platelet Count 289 10^3/uL (130-400); RBC 5.17 10^6/uL (3.93-5.22); RDW 15.9 % (11.7-14.6); RDW-SD 51.9 fL; WBC 10.39 10^3/uL (4.4-10.8)
[2025-05-15] MEDS: Normal Saline 1,000 ML 1000 ML IV (14:21)
[2025-05-15 14:48] LABS: Glucose Negative (Negative)
[2025-05-15 14:49] LABS: ALT 50 U/L (14-59); AST 29 U/L (15-37); Albumin 4.2 g/dL (3.4-5.0); Alkaline Phosphatase 46 U/L (46-116); Anion Gap 3.7 mmol/L (3-11); BUN 45 mg/dL (7-18); Bilirubin, Total 0.9 mg/dL (0.2-1.0); CO2 34.3 mmol/L (21.0-32.0); Chloride 101 mmol/L (98-107); Estimated GFR 20.93 (mL/min/1.73m2); Glucose 125 mg/dL (74-106); Magnesium 1.3 mg/dL (1.8-2.4); Potassium 3.7 mmol/L (3.5-5.1); Sodium 139 mmol/L (136-145); Total Protein 7.5 g/dL (6.4-8.2); Troponin I 38 ng/L (<or=51)
[2025-05-15 14:51] LABS: Calcium 14.8 mg/dL (8.5-10.1)
[2025-05-15 15:05] LABS: Vitamin D 25 Total 40 ng/mL (30-100)
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
[2025-05-15 15:45] LABS: Troponin I 39 ng/L (<or=51)
--- NOTE | 2025-05-15 16:00 | DI.RAD_ITS ---
Exam(s) XR CHEST 2V PA LATERAL EXAM: XR CHEST 2V PA LATERAL CLINICAL HISTORY: COPD, Abnml labs, Body aches TECHNIQUE: 2D digital imaging was performed of the chest. Two images were obtained. PA and lateral views were obtained. COMPARISON: CR XR CHEST 2V PA LATERAL from 04/18/2024 FINDINGS: MEDIASTINUM: Normal. HEART: Normal. Status post CABG. PULMONARY VASCULATURE: Normal. LUNGS: The lungs are hyperinflated with flattened diaphragms suggesting underlying COPD. PLEURAL SPACE: No pleural effusion or pneumothorax. BONE:Within normal limits for the patient's age. There is anterior cervical disc fusion at the cervical thoracic junction. OTHER FINDINGS:There are surgical clips in the neck. IMPRESSION: No acute pulmonary findings. DATA REPOSITORY: RADIATION DOSE DELIVERED:
[2025-05-15] MEDS: Furosemide 20 MG/2 ML VIAL IVP (16:02)
--- NOTE | 2025-05-15 16:50 | W.PC.ACHO ---
Registration Status: REG ER Primary Language: Preferred Language: [place] ED Information & Data Chief Complaint GenMedical 05/15/25 13:31 Triage Note pt was sent here by her pcp 05/15/25 12:53 for calcium 14.9 Medical / Surgical History (Last Reviewed 01/31/25 @ 06:32 by Kacie Zhou, RN) Hypocalcemia Cyst of lateral meniscus of right knee Pacemaker Presence of Watchman left atrial appendage closure device Chronic obstructive lung disease Palliative care patient Fracture of proximal end of right fibula Closed trimalleolar fracture of right ankle (10/03/21) Closed avulsion fracture of condyle of right femur Tear of lateral meniscus of right knee Medial meniscus tear Myoclonic epileptic seizures Heart failure with preserved ejection fraction, borderline, class III Pancreatic atrophy CAD (coronary artery disease), [place] coronary artery DNR no code (do not resuscitate) Constipation Anemia Postmenopausal bleeding Hepatomegaly Abnormal mammography Tarsal tunnel syndrome Hyperlipidemia (08/10/00) Spinal stenosis of lumbar region (02/15/16) Rotator cuff syndrome (08/01/09) Primary osteoarthritis of left hip (09/17/15) Postoperative wound dehiscence (12/23/15) Low back pain (04/10/03) Hip joint inflamed (09/03/15) Hammer toe Folate deficiency (02/15/16) Carpal tunnel syndrome (08/10/06) BMI 40.0-44.9, adult (12/02/14) Vitamin D deficiency Cervical spondylosis with myelopathy Atrial fibrillation Gout Spinal stenosis of lumbar region at multiple levels Restless leg syndrome Essential hypertension (Last Reviewed 01/31/25 @ 06:32 by Kacie Zhou RN) S/P ORIF (open reduction internal fixation) fracture S/P CABG (coronary artery bypass graft) (01/03/19) H/O Spinal surgery H/O arthrodesis History of bilateral tubal ligation S/P rotator cuff repair History of orthopedic surgery S/P cholecystectomy History of hip surgery Status post incision and drainage Cataract (01/07/14) Most Recent Vital Signs Temperature 36.8 C 05/15/25 15:00 Pulse 64 05/15/25 15:31 Pulse 66 05/15/25 15:31 Respiratory Rate 23 05/15/25 15:31 Respiratory Effort Normal, Non-Labored 05/15/25 15:00 Respiratory Depth Normal 05/15/25 15:00 Respiratory Pattern Normal 05/15/25 15:00 Blood Pressure 123/61 05/15/25 15:31 Blood Pressure Mean 80 05/15/25 15:31 Pulse Oximetry 88 L 05/15/25 15:00 Oxygen Delivery Method Room Air 05/15/25 12:53 Oxygen Flow Rate 0 05/15/25 12:53 Pain Level 0 05/15/25 15:00 Allergies venom-honey bee Allergy (Severe, Verified 05/15/25 12:59) ANAPHYLAXIS oxycodone Allergy (Mild, Verified 05/15/25 12:59) Visual Disturbances delirious adhesive Allergy (Verified 05/15/25 12:59) BLISTERS IV IV Catheter Type [Right Saline Lock Forearm] IV Catheter Gauge [Right 18 Forearm] Diagnostics 05/15/25 05/15/25 05/15/25 Range/Units 22:16 17:07 16:16 WBC (4.4-10.8) 10^3/uL RBC (3.93-5.22) 10^6/uL Hgb (11.2-15.7) g/dL Hct (36.0-46.0) % MCV (80-95) fL MCH (27.0-33.0) pg MCHC (32.0-36.0) % RDW (11.7-14.6) % Plt Count (130-400) 10^3/uL MPV (8.0-11.0) fL Immature Gran % % Neutrophils % % Lymphocytes % % Monocytes % % Eosinophils % % Basophils % % Nucleated RBC % (0.0-0.3) % Absolute Neutrophils (1.2-6.7) 10^3/uL Absolute Lymphocytes (1.2-3.4) 10^3/uL Absolute Monocytes (0.1-0.8) 10^3/uL Absolute Eosinophils (0.0-0.7) 10^3/uL Absolute Basophils (0.0-0.2) 10^3/uL Sodium Pending Pending Pending (136-145) mmol/L Potassium Pending Pending Pending (3.5-5.1) mmol/L Chloride Pending Pending Pending (98-107) mmol/L Carbon Dioxide Pending Pending Pending (21.0-32.0) mmol/L Anion Gap Pending Pending Pending (3-11) mmol/L BUN Pending Pending Pending (7-18) mg/dL Creatinine Pending Pending Pending (0.55-1.02) mg/dL Est GFR (CKD-EPI 2020) Pending Pending Pending (mL/min/1.73m2) Glucose Pending Pending Pending (74-106) mg/dL Calcium Pending Pending Pending (8.5-10.1) mg/dL Ionized Calcium Magnesium (1.8-2.4) mg/dL Total Bilirubin Pending Pending (0.2-1.0) mg/dL AST Pending Pending (15-37) U/L ALT Pending Pending (14-59) U/L Alkaline Phosphatase Pending Pending (46-116) U/L Troponin I (<or=51) ng/L Total Protein Pending Pending (6.4-8.2) g/dL Albumin Pending Pending (3.4-5.0) g/dL 25-OH Vitamin D Total (30-100) ng/mL PTH Intact Urine Color (Yellow) Urine Clarity (Clear) Urine pH (5-8) Ur Specific [place] (1.005-1.025) Urine Protein (Neg-Trace) mg/dL Urine Ketones (Negative) mg/dL Urine Blood (Negative) Urine Nitrite (Negative) Urine Bilirubin (Negative) Urine Urobilinogen (Up to 0.2) mg/dL Ur Leukocyte Esterase (Negative) Urine Glucose (Negative) mg/dL 05/15/25 05/15/25 05/15/25 Range/Units 16:11 15:28 15:15 WBC (4.4-10.8) 10^3/uL RBC (3.93-5.22) 10^6/uL Hgb (11.2-15.7) g/dL Hct (36.0-46.0) % MCV (80-95) fL MCH (27.0-33.0) pg MCHC (32.0-36.0) % RDW (11.7-14.6) % Plt Count (130-400) 10^3/uL MPV (8.0-11.0) fL Immature Gran % % Neutrophils % % Lymphocytes % % Monocytes % % Eosinophils % % Basophils % % Nucleated RBC % (0.0-0.3) % Absolute Neutrophils (1.2-6.7) 10^3/uL Absolute Lymphocytes (1.2-3.4) 10^3/uL Absolute Monocytes (0.1-0.8) 10^3/uL Absolute Eosinophils (0.0-0.7) 10^3/uL Absolute Basophils (0.0-0.2) 10^3/uL Sodium (136-145) mmol/L Potassium (3.5-5.1) mmol/L Chloride (98-107) mmol/L Carbon Dioxide (21.0-32.0) mmol/L Anion Gap (3-11) mmol/L BUN (7-18) mg/dL Creatinine (0.55-1.02) mg/dL Est GFR (CKD-EPI 2020) (mL/min/1.73m2) Glucose (74-106) mg/dL Calcium (8.5-10.1) mg/dL Ionized Calcium Pending Magnesium (1.8-2.4) mg/dL Total Bilirubin (0.2-1.0) mg/dL AST (15-37) U/L ALT (14-59) U/L Alkaline Phosphatase (46-116) U/L Troponin I Cancelled 39 (<or=51) ng/L Total Protein (6.4-8.2) g/dL Albumin (3.4-5.0) g/dL 25-OH Vitamin D Total (30-100) ng/mL PTH Intact Urine Color (Yellow) Urine Clarity (Clear) Urine pH (5-8) Ur Specific [place] (1.005-1.025) Urine Protein (Neg-Trace) mg/dL Urine Ketones (Negative) mg/dL Urine Blood (Negative) Urine Nitrite (Negative) Urine Bilirubin (Negative) Urine Urobilinogen (Up to 0.2) mg/dL Ur Leukocyte Esterase (Negative) Urine Glucose (Negative) mg/dL 05/15/25 05/15/25 Range/Units 14:26 14:08 WBC 10.39 (4.4-10.8) 10^3/uL RBC 5.17 (3.93-5.22) 10^6/uL Hgb 14.6 (11.2-15.7) g/dL Hct 46.5 H (36.0-46.0) % MCV 90 (80-95) fL MCH 28.2 (27.0-33.0) pg MCHC 31.4 L (32.0-36.0) % RDW 15.9 H (11.7-14.6) % Plt Count 289 (130-400) 10^3/uL MPV 9.9 (8.0-11.0) fL Immature Gran % 0.7 % Neutrophils % 72.0 % Lymphocytes % 15.5 % Monocytes % 7.0 % Eosinophils % 3.8 % Basophils % 1.0 % Nucleated RBC % 0.0 (0.0-0.3) % Absolute Neutrophils 7.48 H (1.2-6.7) 10^3/uL Absolute Lymphocytes 1.61 (1.2-3.4) 10^3/uL Absolute Monocytes 0.73 (0.1-0.8) 10^3/uL Absolute Eosinophils 0.40 (0.0-0.7) 10^3/uL Absolute Basophils 0.10 (0.0-0.2) 10^3/uL Sodium 139 (136-145) mmol/L Potassium 3.7 (3.5-5.1) mmol/L Chloride 101 (98-107) mmol/L Carbon Dioxide 34.3 H (21.0-32.0) mmol/L Anion Gap 3.7 (3-11) mmol/L BUN 45 H (7-18) mg/dL Creatinine 2.4 H (0.55-1.02) mg/dL Est GFR (CKD-EPI 2020) 20.93 (mL/min/1.73m2) Glucose 125 H (74-106) mg/dL Calcium 14.8 H* (8.5-10.1) mg/dL Ionized Calcium Magnesium 1.3 L (1.8-2.4) mg/dL Total Bilirubin 0.9 (0.2-1.0) mg/dL AST 29 (15-37) U/L ALT 50 (14-59) U/L Alkaline Phosphatase 46 (46-116) U/L Troponin I 38 (<or=51) ng/L Total Protein 7.5 (6.4-8.2) g/dL Albumin 4.2 (3.4-5.0) g/dL 25-OH Vitamin D Total 40 (30-100) ng/mL PTH Intact Pending Urine Color Yellow (Yellow) Urine Clarity Clear (Clear) Urine pH 5.5 (5-8) Ur Specific [place] 1.010 (1.005-1.025) Urine Protein Negative (Neg-Trace) mg/dL Urine Ketones Negative (Negative) mg/dL Urine Blood Negative (Negative) Urine Nitrite Negative (Negative) Urine Bilirubin Negative (Negative) Urine Urobilinogen 0.2 (Up to 0.2) mg/dL Ur Leukocyte Esterase Negative (Negative) Urine Glucose Negative (Negative) mg/dL Intake and Output - 24 Hour Total 05/15/25 12:52 thru 05/15/25 16:45 Intake Total 10 Output Total 850 Balance -840 Weight 98.43 kg Intake: IV 10 Output: Urine 850 Falls Risk Assessment History of Falls Previous History 05/15/25 15:00 Contributing Factors Impairments,Incontinence 05/15/25 15:00 Ambulatory Aids Uses ambulatory device 05/15/25 15:00 Tubes/Lines With any additional score 05/15/25 15:00 Gait Evaluation W/any additional score 05/15/25 15:00 Cognition No cognitive impairment 05/15/25 15:00 Fall Total Score 76 05/15/25 15:00 Level of Risk Maximum Risk 05/15/25 15:00 v v v v v v v v v Sending and/or Receiving Nurses: Please use comment section below to note any information pertinent to the patient hand-off not included above. Information / Comment Pt being admitted for hypercalemia, received 1L IVF bolus, diuretics, voiding on BSC, VSS, alert, oriented, ambulatory, IV per ultrasound, on 2L via MD, has home . Report received from: PATRICK Wadsworth
[2025-05-15 17:35] LABS: ALT 42 U/L (14-59); AST 35 U/L (15-37); Albumin 3.8 g/dL (3.4-5.0); Alkaline Phosphatase 46 U/L (46-116); Anion Gap 8.5 mmol/L (3-11); BUN 45 mg/dL (7-18); Bilirubin, Total 1.0 mg/dL (0.2-1.0); CO2 29.5 mmol/L (21.0-32.0); Chloride 103 mmol/L (98-107); Estimated GFR 24.57 (mL/min/1.73m2); Glucose 102 mg/dL (74-106); Potassium 3.9 mmol/L (3.5-5.1); Sodium 141 mmol/L (136-145); Total Protein 7.1 g/dL (6.4-8.2)
[2025-05-15 17:41] LABS: Calcium 14.2 mg/dL (8.5-10.1)
[2025-05-15] MEDS: Insulin Aspart 300 UNITS/3 ML PEN 10 UNITS SC (17:58)
[2025-05-15] MEDS: MAGNESIUM SULFATE 4 GM/100 ML BAG IV_INF (20:23)
[2025-05-15] MEDS: Normal Saline 1,000 ML 80 ML IV (20:24)
[2025-05-15] MEDS: levETIRAcetam 250 MG TAB 750 MG PO (20:31)
[2025-05-15] MEDS: Potassium Chloride 20 MEQ TABCR PO (20:31)
[2025-05-15] MEDS: Acetaminophen 500 MG TAB 1000 MG PO (20:31)
[2025-05-15] MEDS: Apixaban 2.5 MG TAB PO (20:31)
[2025-05-15] MEDS: Allopurinol 100 MG TAB PO (20:32)
[2025-05-15] MEDS: Normal Saline Flush 10 ML SYR IVP (20:32)
[2025-05-15 23:00] LABS: ALT 45 U/L (14-59); AST 30 U/L (15-37); Albumin 3.9 g/dL (3.4-5.0); Alkaline Phosphatase 47 U/L (46-116); Anion Gap 8.1 mmol/L (3-11); BUN 39 mg/dL (7-18); Bilirubin, Total 0.9 mg/dL (0.2-1.0); CO2 30.9 mmol/L (21.0-32.0); Chloride 104 mmol/L (98-107); Estimated GFR 23.24 (mL/min/1.73m2); Potassium 3.0 mmol/L (3.5-5.1); Sodium 143 mmol/L (136-145); Total Protein 7.1 g/dL (6.4-8.2)
[2025-05-15] MEDS: Ondansetron 4 MG/2 ML VIAL IVP (23:05)
[2025-05-15] MEDS: Dextrose 50%-Water 25 GM/50 ML SYR IVP (23:05)
[2025-05-15 23:17] LABS: Calcium 13.9 mg/dL (8.5-10.1); Glucose 47 mg/dL (74-106)
[2025-05-15] MEDS: Dextrose 50%-Water 25 GM/50 ML SYR (23:47)
[2025-05-16] MEDS: Acetaminophen 325 MG TAB 650 MG PO (01:43)
[2025-05-16 07:14] LABS: Abs Immature Grans 0.03 10^3/uL (0.0-0.06); HCT 43.0 % (36.0-46.0); HGB 13.5 g/dL (11.2-15.7); Immature Grans % 0.3 %; MCH 28.7 pg (27.0-33.0); MCHC 31.4 % (32.0-36.0); MCV 91 fL (80-95); MPV 10.0 fL (8.0-11.0); Platelet Count 268 10^3/uL (130-400); RBC 4.71 10^6/uL (3.93-5.22); RDW 15.7 % (11.7-14.6); RDW-SD 52.0 fL; WBC 10.09 10^3/uL (4.4-10.8)
[2025-05-16 07:27] VITALS: BP 107/60; PULSE 67; RESP 17; TEMP 36.5; O2SAT 96
[2025-05-16] MEDS: Vitamins B Comp w/C TAB 1 TAB PO (08:49)
[2025-05-16] MEDS: Aspirin E.C. 81 MG TABEC PO (08:50)
[2025-05-16] MEDS: DULoxetine 30 MG CAP PO (08:50)
[2025-05-16] MEDS: Torsemide 20 MG TAB 80 MG PO (08:51)
[2025-05-16] MEDS: Potassium Chloride 20 MEQ TABCR PO ×2 (08:52→19:53)
[2025-05-16] MEDS: Atorvastatin 40 MG TAB PO (08:52)
[2025-05-16] MEDS: levETIRAcetam 250 MG TAB 750 MG PO ×2 (08:53→19:52)
[2025-05-16] MEDS: amLODIPine 5 MG TAB PO (08:53)
[2025-05-16] MEDS: Pantoprazole 40 MG TABCR PO (08:55)
[2025-05-16] MEDS: Apixaban 2.5 MG TAB PO ×2 (08:56→19:53)
[2025-05-16] MEDS: Acetaminophen 500 MG TAB 1000 MG PO ×2 (08:56→19:53)
[2025-05-16] MEDS: Metoprolol CR 25 MG TABCR 12.5 MG PO (08:57)
[2025-05-16] MEDS: Ondansetron 4 MG/2 ML VIAL IVP (08:59)
[2025-05-16] MEDS: Insulin Glargine 300 UNITS/3 ML PEN 40 UNITS SC (09:03)
--- NOTE | 2025-05-16 09:28 | PGE_ITS ---
Date of Service Date of service: 05/16/25 Time of Service: 09:28 Assessment and Plan Assessment and plan (1) Hypercalcemia: Status: Acute Assessment and plan: History of partial thyroidectomy records requested from [facility] , reports 2 surgeries in her neck - Was on calcitrol for hypocalcemia until 05/14 Denies family hx of hypercalcemia or hyperparathyroidism but family hx of CA including father with bone CA IVF given in the ED calcium level from 14.8-14.2 Continue IV normal saline Working Dx: hypercalcemia from PHPT VS non-parathyroid mediated --- also considering [facility] Calcitonin at 4 units/kg initiated and dosed Q12 H to reduce acute Ca elevation ( for 48 hours max) Will continue to monitor CMP and calcium every 6 hours Ionized calcium Q AM - send out Considered IV bisphosphonate or denosumab but with renal function consult with nephrology Dr Lewis at 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 -Most likely iatrogenic based on calcitrol supplementation with last Ca level on 04/2024 at 9.2- Do not restart at d/c and f/u per PCP for restarting and redosing -Still rule out other non-parathyroid mediated etiology as per blood-work - Recommendation for US neck - DC at Ca< 10 with PCP f/u , vit D 1000 units daily OK, aldactone OK - cortisol ordered - Reconsult in goal not met on d/c Considered zoledronic acid and one dose given Hold medicine that can worsen hypercalcemia such as spironolactone 25-hydroxy Vit D at 40: No vitamin D toxicity 1,25 dihydroxyvitamin D, SPEP, UPEP, serum light chain essay pending PO4-3.0 PTH in 10/31/2023 was 354 PTH 05/15 --14: most likely not PHPT. And now working non-parathyroid mediated hypercalcemia PTHrP level ordered Urine Ca and 24 Hour urine CA Ca/Cr clearance ration when available Scheduled compazine PRN tigan IM (2) Unresponsiveness: Status: Acute Assessment and plan: Rapid Response event C/o of not feeling well then exhibited reduced alertness but arousable- sat 99% of oxygen at 2 l/min - O2 stopped - NIH scale negative when awaken, VSS, gluc 95 EKG negative for coronary occlusion ST depression, no actionable labs finding Head CT w/o acute intracranial findings (3) Hypomagnesemia: Status: Inactive Assessment and plan: Supplemented Mg level in AM (4) Reflux gastritis: Status: Acute Assessment and plan: Continue home medicine regimen (5) CHF (congestive heart failure): Status: Chronic Assessment and plan: No exacerbation home medicine regimen (6) Chronic hypoxic respiratory failure: Status: Acute Assessment and plan: No exacerbation on 1 L baseline O2 for sat goals 88-92% (7) Type 2 diabetes mellitus with diabetic nephropathy: Status: Acute Assessment and plan: Fingerstick AC & HS with SSI coverage and long-acting insulin at home dose (8) Chronic kidney disease, stage 4 (severe): Status: Acute Assessment and plan: No exacerbation creatinine around baseline Renal dosing of RX will continue to monitor (9) Chronic obstructive lung disease: Assessment and plan: No exacerbation Continue home medicine regimen Sat goal 88-92% (10) On deep vein thrombosis (DVT) prophylaxis: Status: Acute Assessment and plan: Low molecular weight heparin Discussed with Dr. Francis Subjective Subjective Patient reports: feels better, pain is less, tolerating liquids well, voiding w/o difficulty, diarrhea, nausea and vomiting; denies blood in stool, shortness of breath or fever Exam Narrative Exam Narrative: Alert oriented x 4, no acute neurological deficit, unlabored breathing clear lungs, S1-S2 no murmur rhythm is ventricular paced, pulses are palpable moves all 4 extremities, abdomen is large, nondistended soft with improving mild diffuse abdominal tenderness Objective Last Vital Signs Temp 36.5 C 05/16/25 07:27 Pulse 67 05/16/25 07:27 Resp 17 05/16/25 07:27 BP 107/60 05/16/25 07:27 Pulse Ox 96 05/16/25 07:27 Laboratory Results - last 24 hr 05/15/25 05/15/25 05/15/25 14:08 14:26 15:15 WBC 10.39 RBC 5.17 Hgb 14.6 Hct 46.5 H MCV 90 MCH 28.2 MCHC 31.4 L RDW 15.9 H Plt Count 289 MPV 9.9 Immature Gran % 0.7 Neutrophils % 72.0 Lymphocytes % 15.5 Monocytes % 7.0 Eosinophils % 3.8 Basophils % 1.0 Nucleated RBC % 0.0 Absolute Neutrophils 7.48 H Absolute Lymphocytes 1.61 Absolute Monocytes 0.73 Absolute Eosinophils 0.40 Absolute Basophils 0.10 Sodium 139 Potassium 3.7 Chloride 101 Carbon Dioxide 34.3 H Anion Gap 3.7 BUN 45 H Creatinine 2.4 H Est GFR (CKD-EPI 2020) 20.93 Glucose 125 H Calcium 14.8 H* Ionized Calcium Phosphorus Magnesium 1.3 L Total Bilirubin 0.9 AST 29 ALT 50 Alkaline Phosphatase 46 Troponin I 38 39 Total Protein 7.5 Albumin 4.2 25-OH Vitamin D Total 40 PTH Intact 14 L Urine Color Yellow Urine Clarity Clear Urine pH 5.5 Ur Specific [place] 1.010 Urine Protein Negative Urine Ketones Negative Urine Blood Negative Urine Nitrite Negative Urine Bilirubin Negative Urine Urobilinogen 0.2 Ur Leukocyte Esterase Negative Urine Glucose Negative 05/15/25 05/15/25 05/15/25 15:28 16:11 17:00 WBC RBC Hgb Hct MCV MCH MCHC RDW Plt Count MPV Immature Gran % Neutrophils % Lymphocytes % Monocytes % Eosinophils % Basophils % Nucleated RBC % Absolute Neutrophils Absolute Lymphocytes Absolute Monocytes Absolute Eosinophils Absolute Basophils Sodium 141 Potassium 3.9 Chloride 103 Carbon Dioxide 29.5 Anion Gap 8.5 BUN 45 H Creatinine 2.1 H Est GFR (CKD-EPI 2020) 24.57 Glucose 102 Calcium 14.2 H* Ionized Calcium 1.71 H* Phosphorus Magnesium Total Bilirubin 1.0 AST 35 ALT 42 Alkaline Phosphatase 46 Troponin I Cancelled Total Protein 7.1 Albumin 3.8 25-OH Vitamin D Total PTH Intact Urine Color Urine Clarity Urine pH Ur Specific [place] Urine Protein Urine Ketones Urine Blood Urine Nitrite Urine Bilirubin Urine Urobilinogen Ur Leukocyte Esterase Urine Glucose 05/15/25 05/15/25 05/15/25 17:07 20:18 22:30 WBC RBC Hgb Hct MCV MCH MCHC RDW Plt Count MPV Immature Gran % Neutrophils % Lymphocytes % Monocytes % Eosinophils % Basophils % Nucleated RBC % Absolute Neutrophils Absolute Lymphocytes Absolute Monocytes Absolute Eosinophils Absolute Basophils Sodium Cancelled 143 Potassium Cancelled 3.0 L Chloride Cancelled 104 Carbon Dioxide Cancelled 30.9 Anion Gap Cancelled 8.1 BUN Cancelled 39 H Creatinine Cancelled 2.2 H Est GFR (CKD-EPI 2020) Cancelled 23.24 Glucose Cancelled 47 L* Calcium Cancelled 13.9 H* Ionized Calcium Phosphorus 3.0 Magnesium Total Bilirubin 0.9 AST 30 ALT 45 Alkaline Phosphatase 47 Troponin I Total Protein 7.1 Albumin 3.9 25-OH Vitamin D Total PTH Intact Urine Color Urine Clarity Urine pH Ur Specific [place] Urine Protein Urine Ketones Urine Blood Urine Nitrite Urine Bilirubin Urine Urobilinogen Ur Leukocyte Esterase Urine Glucose 05/15/25 05/16/25 22:35 06:51 WBC 10.09 RBC 4.71 Hgb 13.5 Hct 43.0 MCV 91 MCH 28.7 MCHC 31.4 L RDW 15.7 H Plt Count 268 MPV 10.0 Immature Gran % 0.3 Neutrophils % 72.8 Lymphocytes % 16.3 Monocytes % 7.2 Eosinophils % 2.7 Basophils % 0.7 Nucleated RBC % 0.0 Absolute Neutrophils 7.35 H Absolute Lymphocytes 1.64 Absolute Monocytes 0.73 Absolute Eosinophils 0.27 Absolute Basophils 0.07 Sodium Potassium Chloride Carbon Dioxide Anion Gap BUN Creatinine Est GFR (CKD-EPI 2020) Glucose Calcium Ionized Calcium Cancelled Phosphorus Magnesium Total Bilirubin AST ALT Alkaline Phosphatase Troponin I Total Protein Albumin 25-OH Vitamin D Total PTH Intact Urine Color Urine Clarity Urine pH Ur Specific [place] Urine Protein Urine Ketones Urine Blood Urine Nitrite Urine Bilirubin Urine Urobilinogen Ur Leukocyte Esterase Urine Glucose Time Spent with Patient Time Spent with Patient: >50 minutes Time was spent: preparing to see the patient(eg.review tests), obtaining and/or reviewing separately otained hiistory, ordering medications,tests, procedures, referring, communicating with other health housekeeper child care, indepentently interpreting results, counseling the patient, care coordination and other
[2025-05-16 09:54] LABS: ALT 42 U/L (14-59); AST 34 U/L (15-37); Albumin 3.4 g/dL (3.4-5.0); Alkaline Phosphatase 43 U/L (46-116); Anion Gap 5.7 mmol/L (3-11); BUN 36 mg/dL (7-18); Bilirubin, Total 0.9 mg/dL (0.2-1.0); CO2 32.3 mmol/L (21.0-32.0); Chloride 102 mmol/L (98-107); Estimated GFR 23.24 (mL/min/1.73m2); Glucose 120 mg/dL (74-106); Potassium 3.8 mmol/L (3.5-5.1); Sodium 140 mmol/L (136-145); Total Protein 6.4 g/dL (6.4-8.2)
[2025-05-16 09:59] LABS: Calcium 12.5 mg/dL (8.5-10.1)
[2025-05-16] MEDS: POTASSIUM CHLORIDE 20 MEQ/100 ML BAG 50 MEQ IV_INF (10:51)
[2025-05-16 11:23] VITALS: BP 114/59; PULSE 62; RESP 17; TEMP 36.6; O2SAT 97
[2025-05-16 12:26] LABS: ALT 41 U/L (14-59); AST 31 U/L (15-37); Albumin 3.6 g/dL (3.4-5.0); Alkaline Phosphatase 45 U/L (46-116); Anion Gap 5.5 mmol/L (3-11); BUN 35 mg/dL (7-18); Bilirubin, Total 0.8 mg/dL (0.2-1.0); CO2 32.5 mmol/L (21.0-32.0); Chloride 103 mmol/L (98-107); Estimated GFR 24.57 (mL/min/1.73m2); Glucose 112 mg/dL (74-106); Potassium 4.0 mmol/L (3.5-5.1); Sodium 141 mmol/L (136-145); Total Protein 6.7 g/dL (6.4-8.2)
[2025-05-16 12:29] LABS: Calcium 12.4 mg/dL (8.5-10.1)
--- NOTE | 2025-05-16 13:34 | NUR.NOTE ---
Nursing Note: Reviewed documentation by Diana Tam, PN student.
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
[2025-05-16] MEDS: Normal Saline 1,000 ML 80 ML IV (14:27)
[2025-05-16] MEDS: Prochlorperazine 10 MG/2 ML VIAL 5 MG IVP (14:31)
--- NOTE | 2025-05-16 14:36 | CHAPLAIN ---
Megan and I know each from previous admissions. She has complicate medical history and have been admitted several times, but has not been here for several months now. She was pleasant as always. Here significant other was with her. 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 I will continue to visit.
[2025-05-16 16:04] LABS: Lab Add On Test DONE
--- NOTE | 2025-05-16 16:30 | RT.EKG_ITS ---
APPROVED REPORT Exam: Resting ECG Reason for Exam: AMS Patient Location: I HR:63 bpm ECG Measurements Heart Rate 63 AXIS HI 184 P 30 QRSd 142 QRS 29 QT 429 T 195 QTc 440 Conclusion Sinus arrhythmia...V-rate 52- 75, variation>10% Left bundle branch block...QRSd>120, broad/notched R
--- NOTE | 2025-05-16 16:30 | DI.CT_ITS ---
Exam(s) CT HEAD WO EXAM: CT HEAD WO CLINICAL HISTORY: AMS. TECHNIQUE: Imaging Protocol: Axial computed tomography images with coronal and sagittal reformatted images were created and reviewed COMPARISON: CT CT HEAD WO from 09/25/[address] HEAD CERVICAL SPINE WO from 02/13/[address] HEAD WO from 02/14/2024 FINDINGS: Ventricles and Extra axial spaces: Normal in size and morphology for the patient's age. Hemorrhage: None. Cerebral parenchyma: There are areas of decreased attenuation in the white matter consistent with chronic microvascular ischemic disease. No findings to suggest an acute territorial infarct or mass effect are present. Midline shift: None. Brainstem/Cerebellum: Normal. Calvarium: Normal. Visualized Paranasal sinuses/Mastoids: Clear. Soft Tissues: Unremarkable. IMPRESSION: No acute intracranial process. RADIATION DOSE DELIVERED: 818.17mGy.cm Total DLP DATA REPOSITORY: All CT scans at this facility are submitted to the National Radiology Data Registry (NRDR) Dose Index Registry (DIR) with the [employer] (ACR). RADIATION OPTIMIZATION: All CT scans at this facility use at least one of these dose optimization techniques: automated exposure control; mA and/or kV adjustment per patient size (includes targeted exams where dose is matched to clinical indication); or iterative reconstruction.
[2025-05-16 16:31] VITALS: BP 112/58; PULSE 62; O2SAT 90
[2025-05-16 16:46] VITALS: BP 98/62; PULSE 62; RESP 14; O2SAT 92
--- NOTE | 2025-05-16 16:47 | NUR.NOTE ---
Nursing Note: pt somnolent but arousable. SAT's 90% BP 112/58, FSBS 95, pt states she feels something is wrong Pt unable to keep eyes open longer than a few seconds, HOSE INSPECTOR AND PATCHER notified VBG, CBC, CMP, CT EKG ordered
[2025-05-16 16:51] LABS: BE (Venous) 7 mmol/L (-2-3); HCO3 (Venous) 33 mmol/L (23-28); O2 Sat (Venous) 60 %; TCO2 (Venous) 30 mmol/L (24-29); pO2 (Venous) 35 mmHg
[2025-05-16 16:53] LABS: Abs Immature Grans 0.05 10^3/uL (0.0-0.06); HCT 44.4 % (36.0-46.0); HGB 14.1 g/dL (11.2-15.7); Immature Grans % 0.4 %; MCH 29.1 pg (27.0-33.0); MCHC 31.8 % (32.0-36.0); MCV 92 fL (80-95); MPV 9.5 fL (8.0-11.0); Platelet Count 264 10^3/uL (130-400); RBC 4.85 10^6/uL (3.93-5.22); RDW 15.8 % (11.7-14.6); RDW-SD 52.5 fL; WBC 11.62 10^3/uL (4.4-10.8); pCO2 (Venous) 61 mmHg (41-51)
[2025-05-16 17:13] LABS: ALT 42 U/L (14-59); AST 38 U/L (15-37); Albumin 3.6 g/dL (3.4-5.0); Alkaline Phosphatase 46 U/L (46-116); Anion Gap 2.6 mmol/L (3-11); BUN 35 mg/dL (7-18); Bilirubin, Total 1.0 mg/dL (0.2-1.0); CO2 34.4 mmol/L (21.0-32.0); Chloride 103 mmol/L (98-107); Estimated GFR 23.24 (mL/min/1.73m2); Glucose 101 mg/dL (74-106); Potassium 4.3 mmol/L (3.5-5.1); Sodium 140 mmol/L (136-145); Total Protein 6.9 g/dL (6.4-8.2); Troponin I 36 ng/L (<or=51)
[2025-05-16 17:18] LABS: Calcium 12.0 mg/dL (8.5-10.1)
--- NOTE | 2025-05-16 18:24 | NUR.NOTE ---
Nursing Note: RN updated Kim and other daughter (DPOA on AD's from 2019) by phone immediatly after event. December called again at [address] Neg and now pending UA was reviewed.
[2025-05-16 18:48] LABS: ALT 41 U/L (14-59); AST 28 U/L (15-37); Albumin 3.5 g/dL (3.4-5.0); Alkaline Phosphatase 45 U/L (46-116); Anion Gap 5.7 mmol/L (3-11); BUN 34 mg/dL (7-18); Bilirubin, Total 0.9 mg/dL (0.2-1.0); CO2 32.3 mmol/L (21.0-32.0); Chloride 104 mmol/L (98-107); Estimated GFR 24.57 (mL/min/1.73m2); Glucose 102 mg/dL (74-106); Potassium 3.9 mmol/L (3.5-5.1); Sodium 142 mmol/L (136-145); Total Protein 6.6 g/dL (6.4-8.2)
[2025-05-16 18:51] LABS: Calcium 11.8 mg/dL (8.5-10.1)
[2025-05-16 19:46] VITALS: BP 127/61; PULSE 60; RESP 15; TEMP 36.3; O2SAT 90
[2025-05-16] MEDS: Allopurinol 100 MG TAB PO (19:54)
[2025-05-16] MEDS: Normal Saline Flush 10 ML SYR IVP (19:54)
[2025-05-16] MEDS: Budesonide/Formoterol 160/4.5 6 GM 60 PUFF INH IH (20:44)
[2025-05-16 20:53] VITALS: O2SAT 93
[2025-05-16 21:12] LABS: Cannabinoids THC Negative (Negative); METHADONE URINE SCREEN Negative (Negative)
[2025-05-17] VITALS (8 sets, daily range): BP systolic 110–127; BP diastolic 54–64; PULSE 60–68; RESP 15–18; TEMP 36–37.2; O2SAT 92–96
[2025-05-17 00:51] LABS: ALT 38 U/L (14-59); AST 28 U/L (15-37); Albumin 3.3 g/dL (3.4-5.0); Alkaline Phosphatase 43 U/L (46-116); Anion Gap 2.6 mmol/L (3-11); BUN 34 mg/dL (7-18); Bilirubin, Total 0.8 mg/dL (0.2-1.0); CO2 33.4 mmol/L (21.0-32.0); Calcium 11.2 mg/dL (8.5-10.1); Chloride 107 mmol/L (98-107); Estimated GFR 24.57 (mL/min/1.73m2); Glucose 100 mg/dL (74-106); Potassium 4.1 mmol/L (3.5-5.1); Sodium 143 mmol/L (136-145); Total Protein 6.2 g/dL (6.4-8.2)
[2025-05-17] MEDS: Prochlorperazine 10 MG/2 ML VIAL 5 MG IVP ×2 (04:21→12:15)
[2025-05-17 06:48] LABS: ALT 36 U/L (14-59); AST 26 U/L (15-37); Albumin 3.2 g/dL (3.4-5.0); Alkaline Phosphatase 41 U/L (46-116); Anion Gap 3.3 mmol/L (3-11); BUN 32 mg/dL (7-18); Bilirubin, Total 0.9 mg/dL (0.2-1.0); CO2 32.7 mmol/L (21.0-32.0); Calcium 10.7 mg/dL (8.5-10.1); Chloride 109 mmol/L (98-107); Estimated GFR 27.71 (mL/min/1.73m2); Glucose 92 mg/dL (74-106); Potassium 3.8 mmol/L (3.5-5.1); Sodium 145 mmol/L (136-145); Total Protein 6.1 g/dL (6.4-8.2)
[2025-05-17] MEDS: Tiotropium Bromide-Respimat 10 PUFF INH 2 PUFF IH (07:27)
[2025-05-17] MEDS: Budesonide/Formoterol 160/4.5 6 GM 60 PUFF INH IH ×2 (07:27→20:03)
[2025-05-17] MEDS: Nystatin POWDER 15 GM JAR TP (08:41)
[2025-05-17] MEDS: Acetaminophen 500 MG TAB 1000 MG PO ×2 (08:43→20:55)
[2025-05-17] MEDS: levETIRAcetam 250 MG TAB 750 MG PO ×2 (08:43→20:55)
[2025-05-17] MEDS: Torsemide 20 MG TAB 80 MG PO (08:43)
[2025-05-17] MEDS: Aspirin E.C. 81 MG TABEC PO (08:43)
[2025-05-17] MEDS: Normal Saline Flush 10 ML SYR IVP ×2 (08:43→21:55)
[2025-05-17] MEDS: Vitamins B Comp w/C TAB 1 TAB PO (08:44)
[2025-05-17] MEDS: Atorvastatin 40 MG TAB PO (08:44)
[2025-05-17] MEDS: amLODIPine 5 MG TAB PO (08:44)
[2025-05-17] MEDS: DULoxetine 30 MG CAP PO (08:44)
[2025-05-17] MEDS: Metoprolol CR 25 MG TABCR 12.5 MG PO (08:44)
[2025-05-17] MEDS: Apixaban 2.5 MG TAB PO ×2 (08:44→20:55)
[2025-05-17] MEDS: Potassium Chloride 20 MEQ TABCR PO ×2 (08:44→20:56)
[2025-05-17] MEDS: Insulin Glargine 300 UNITS/3 ML PEN 40 UNITS SC (08:45)
[2025-05-17] MEDS: Pantoprazole 40 MG TABCR PO (08:45)
[2025-05-17 12:56] LABS: ALT 33 U/L (14-59); AST 23 U/L (15-37); Albumin 3.1 g/dL (3.4-5.0); Alkaline Phosphatase 42 U/L (46-116); Anion Gap 4.7 mmol/L (3-11); BUN 31 mg/dL (7-18); Bilirubin, Total 0.8 mg/dL (0.2-1.0); CO2 30.3 mmol/L (21.0-32.0); Calcium 10.2 mg/dL (8.5-10.1); Chloride 106 mmol/L (98-107); Estimated GFR 27.71 (mL/min/1.73m2); Glucose 108 mg/dL (74-106); Potassium 4.0 mmol/L (3.5-5.1); Sodium 141 mmol/L (136-145); Total Protein 6.0 g/dL (6.4-8.2)
--- NOTE | 2025-05-17 13:20 | W.PM.PROGNOT ---
Date of Service Date of service: 05/17/25 Time of Service: 13:21 Assessment and Plan Assessment and plan (1) Hypercalcemia: Status: Acute Assessment and plan: History of partial [place] [facility] [place] 2 surgeries in her neck - Was on calcitrol for hypocalcemia until 05/14 Denies family hx of hypercalcemia or hyperparathyroidism but family hx of CA including father with bone CA IVF given in the ED calcium level from 14.8-14.2 stop IV normal saline Working Dx: hypercalcemia from PHPT VS non-parathyroid mediated --- also considering [facility] Calcitonin at 4 units/kg initiated and dosed Q12 H to reduce acute Ca elevation ( for 48 hours max), will stop Will stop serial CMP and calcium, follow daily Ionized calcium Q AM - send out Hold medicine that can worsen hypercalcemia such as spironolactone 25-hydroxy Vit D at 40: No vitamin D toxicity 1,25 dihydroxyvitamin D, SPEP, UPEP, serum light chain essay pending PO4-3.0 PTH in 10/31/2023 was 354 PTH 05/15 --14: most likely not PHPT. And now working non-parathyroid mediated hypercalcemia PTHrP level ordered Urine Ca and 24 Hour urine CA Ca/Cr clearance ration when available Scheduled compazine PRN tigan IM (2) Unresponsiveness: Status: Resolved Assessment and plan: back to baseline Rapid Response event 05/16: C/o of not feeling well then exhibited reduced alertness but arousable- sat 99% of oxygen at 2 l/min - O2 stopped - NIH scale negative when awaken, VSS, gluc 95 EKG negative for coronary occlusion ST depression, no actionable labs finding Head CT w/o acute intracranial findings (3) Hypomagnesemia: Status: Acute Assessment and plan: Supplemented Mg level in AM (4) Reflux gastritis: Status: Acute Assessment and plan: Continue home medicine regimen (5) CHF (congestive heart failure): Status: Chronic Assessment and plan: No exacerbation home medicine regimen (6) Chronic hypoxic respiratory failure: Status: Acute Assessment and plan: No exacerbation on 1 L baseline O2 for sat goals 88-92% (7) Type 2 diabetes mellitus with diabetic nephropathy: Status: Acute Assessment and plan: Fingerstick AC & HS with SSI coverage and long-acting insulin at home dose (8) Chronic kidney disease, stage 4 (severe): Status: Acute Assessment and plan: No exacerbation creatinine around baseline Renal dosing of RX will continue to monitor (9) Chronic obstructive lung disease: Assessment and plan: No exacerbation Continue home medicine regimen Sat goal 88-92% (10) On deep vein thrombosis (DVT) prophylaxis: Status: Acute Assessment and plan: Low molecular weight heparin Discussed with Dr. Guillaume Subjective Subjective Patient reports: no new complaints, feels better, tolerating liquids well, tolerating a regular diet and afebrile Interval history since last seen: gonzalez to gravity, clear yellow urine Exam Const General: cooperative Nutritional Appearance: obese Orientation: alert and awake HENMT Head: normal to inspection Mouth: oral mucosae normal Chest Chest: normal inspection of the chest Resp Effort & Inspection: normal respiratory effort Auscultation: clear to auscultation bilaterally Cardio Rate: regular rate Rhythm: regular rhythm GI Inspection: normal to inspection Palpation: soft Auscultation: normal bowel sounds Psych Mental Status: mental status grossly normal Speech and Movement: speech and movement normal Mood: congruent mood Affect: normal affect Objective Last Vital Signs Temp 36.9 C 05/17/25 08:04 Pulse 62 05/17/25 08:04 Resp 16 05/17/25 08:04 BP 118/54 L 05/17/25 01:21 Pulse Ox 92 05/17/25 08:04 Laboratory Results - last 24 hr 05/16/25 05/16/25 05/16/25 11:42 15:50 16:40 WBC 11.62 H RBC 4.85 Hgb 14.1 Hct 44.4 MCV 92 MCH 29.1 MCHC 31.8 L RDW 15.8 H Plt Count 264 MPV 9.5 Immature Gran % 0.4 Neutrophils % 76.1 Lymphocytes % 14.1 Monocytes % 6.6 Eosinophils % 2.2 Basophils % 0.6 Nucleated RBC % 0.0 Absolute Neutrophils 8.84 H Absolute Lymphocytes 1.64 Absolute Monocytes 0.77 Absolute Eosinophils 0.26 Absolute Basophils 0.07 VBG pH 7.33 VBG pCO2 61 H VBG pO2 35 VBG HCO3 33 H VBG Total CO2 30 H VBG O2 Saturation 60 VBG Base Excess 7 H Sodium 140 Potassium 4.3 Chloride 103 Carbon Dioxide 34.4 H Anion Gap 2.6 L BUN 35 H Creatinine 2.2 H Est GFR (CKD-EPI 2020) 23.24 Glucose 101 Calcium 12.0 H* Ionized Calcium 1.55 H Total Bilirubin 1.0 AST 38 H ALT 42 Alkaline Phosphatase 46 Troponin I 36 Total Protein 6.9 Albumin 3.6 Urine Opiates Screen Urine Methadone Screen Ur Barbiturates Screen Ur Tricyclics Screen Ur Amphetamines Screen U Benzodiazepines Scrn Urine Cocaine Screen Ur THC Screen Add-On Test Request DONE 05/16/25 05/16/25 05/16/25 16:41 18:18 20:16 WBC RBC Hgb Hct MCV MCH MCHC RDW Plt Count MPV Immature Gran % Neutrophils % Lymphocytes % Monocytes % Eosinophils % Basophils % Nucleated RBC % Absolute Neutrophils Absolute Lymphocytes Absolute Monocytes Absolute Eosinophils Absolute Basophils VBG pH Cancelled VBG pCO2 Cancelled VBG pO2 Cancelled VBG HCO3 Cancelled VBG Total CO2 Cancelled VBG O2 Saturation Cancelled VBG Base Excess Cancelled Sodium 142 Potassium 3.9 Chloride 104 Carbon Dioxide 32.3 H Anion Gap 5.7 BUN 34 H Creatinine 2.1 H Est GFR (CKD-EPI 2020) 24.57 Glucose 102 Calcium 11.8 H* Ionized Calcium Total Bilirubin 0.9 AST 28 ALT 41 Alkaline Phosphatase 45 L Troponin I Total Protein 6.6 Albumin 3.5 Urine Opiates Screen Negative Urine Methadone Screen Negative Ur Barbiturates Screen Negative Ur Tricyclics Screen Negative Ur Amphetamines Screen Negative U Benzodiazepines Scrn Negative Urine Cocaine Screen Negative Ur THC Screen Negative Add-On Test Request 05/17/25 05/17/25 05/17/25 00:18 06:06 12:22 WBC RBC Hgb Hct MCV MCH MCHC RDW Plt Count MPV Immature Gran % Neutrophils % Lymphocytes % Monocytes % Eosinophils % Basophils % Nucleated RBC % Absolute Neutrophils Absolute Lymphocytes Absolute Monocytes Absolute Eosinophils Absolute Basophils VBG pH VBG pCO2 VBG pO2 VBG HCO3 VBG Total CO2 VBG O2 Saturation VBG Base Excess Sodium 143 145 141 Potassium 4.1 3.8 4.0 Chloride 107 109 H 106 Carbon Dioxide 33.4 H 32.7 H 30.3 Anion Gap 2.6 L 3.3 4.7 BUN 34 H 32 H 31 H Creatinine 2.1 H 1.9 H 1.9 H Est GFR (CKD-EPI 2020) 24.57 27.71 27.71 Glucose 100 92 108 H Calcium 11.2 H 10.7 H 10.2 H Ionized Calcium Total Bilirubin 0.8 0.9 0.8 AST 28 26 23 ALT 38 36 33 Alkaline Phosphatase 43 L 41 L 42 L Troponin I Total Protein 6.2 L 6.1 L 6.0 L Albumin 3.3 L 3.2 L 3.1 L Urine Opiates Screen Urine Methadone Screen Ur Barbiturates Screen Ur Tricyclics Screen Ur Amphetamines Screen U Benzodiazepines Scrn Urine Cocaine Screen Ur THC Screen Add-On Test Request Time Spent with Patient Time Spent with Patient: 35-49 minutes Time was spent: preparing to see the patient(eg.review tests), obtaining and/or reviewing separately otained hiistory, ordering medications,tests, procedures, indepentently interpreting results and counseling the patient
[2025-05-17] MEDS: Acetaminophen 325 MG TAB 650 MG PO (15:00)
[2025-05-17 19:01] LABS: ALT 32 U/L (14-59); AST 18 U/L (15-37); Albumin 3.0 g/dL (3.4-5.0); Alkaline Phosphatase 43 U/L (46-116); Anion Gap 4.5 mmol/L (3-11); BUN 35 mg/dL (7-18); Bilirubin, Total 0.6 mg/dL (0.2-1.0); CO2 30.5 mmol/L (21.0-32.0); Calcium 9.7 mg/dL (8.5-10.1); Chloride 105 mmol/L (98-107); Estimated GFR 26.05 (mL/min/1.73m2); Glucose 121 mg/dL (74-106); Potassium 3.8 mmol/L (3.5-5.1); Sodium 140 mmol/L (136-145); Total Protein 5.8 g/dL (6.4-8.2)
[2025-05-17] MEDS: Allopurinol 100 MG TAB PO (20:56)
[2025-05-17] MEDS: Normal Saline 1,000 ML 80 ML IV (20:57)
[2025-05-17 22:41] LABS: Lab Add On Test DONE
[2025-05-18 02:31] VITALS: BP 120/53; PULSE 60; RESP 16; TEMP 36.2; O2SAT 95
[2025-05-18 07:27] VITALS: BP 103/50; PULSE 67; RESP 16; TEMP 36.5; O2SAT 97
[2025-05-18] MEDS: Tiotropium Bromide-Respimat 10 PUFF INH 2 PUFF IH (08:10)
[2025-05-18] MEDS: Budesonide/Formoterol 160/4.5 6 GM 60 PUFF INH IH (08:10)
[2025-05-18] MEDS: Potassium Chloride 20 MEQ TABCR PO (08:51)
[2025-05-18] MEDS: Vitamins B Comp w/C TAB 1 TAB PO (08:51)
[2025-05-18] MEDS: Apixaban 2.5 MG TAB PO (08:51)
[2025-05-18] MEDS: Acetaminophen 500 MG TAB 1000 MG PO (08:51)
[2025-05-18] MEDS: Aspirin E.C. 81 MG TABEC PO (08:51)
[2025-05-18] MEDS: Torsemide 20 MG TAB 80 MG PO (08:52)
[2025-05-18] MEDS: Pantoprazole 40 MG TABCR PO (08:52)
[2025-05-18] MEDS: Atorvastatin 40 MG TAB PO (08:52)
[2025-05-18] MEDS: Metoprolol CR 25 MG TABCR 12.5 MG PO (08:53)
[2025-05-18] MEDS: amLODIPine 5 MG TAB PO (08:53)
[2025-05-18] MEDS: levETIRAcetam 250 MG TAB 750 MG PO (08:53)
[2025-05-18] MEDS: Insulin Aspart 300 UNITS/3 ML PEN 10 UNITS SC ×2 (08:53→12:10)
[2025-05-18] MEDS: DULoxetine 30 MG CAP PO (08:53)
[2025-05-18] MEDS: Insulin Glargine 300 UNITS/3 ML PEN 40 UNITS SC (09:05)
[2025-05-18] MEDS: Normal Saline Flush 10 ML SYR IVP ×2 (09:18→12:10)
[2025-05-18] MEDS: Normal Saline 1,000 ML 80 ML IV (09:46)
[2025-05-18 09:58] LABS: Calcium (Random Urine) 10.8 mg/dL (See Note)
[2025-05-18 11:24] VITALS: BP 114/79; PULSE 67; RESP 17; TEMP 36.7; O2SAT 96
[2025-05-18] MEDS: Prochlorperazine 10 MG/2 ML VIAL 5 MG IVP (12:09)
[2025-05-18 12:24] LABS: Anion Gap 7.0 mmol/L (3-11); BUN 29 mg/dL (7-18); CO2 29.0 mmol/L (21.0-32.0); Calcium 9.5 mg/dL (8.5-10.1); Chloride 107 mmol/L (98-107); Estimated GFR 27.71 (mL/min/1.73m2); Glucose 106 mg/dL (74-106); Potassium 3.7 mmol/L (3.5-5.1); Sodium 143 mmol/L (136-145)
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
--- NOTE | 2025-05-18 16:51 | PDOC.CMDIS ---
Date of service: 05/18/25 Time of Service: 16:53 LACE Index Scoring Tool Questions: Length of Stay (in days): 3 Was the patient admitted via the E.D.?: Yes Comorbidities: Diabetes w/o Complication, Congestive Heart Failure and Liver or Renal Disease E.D. Visits: 0 Answers: Total Score: 11 Risk of Readmission: High Risk Care Management Discharge Plan Reason for Hospitalization: hypercalcemia Discharge Plan: Ann-Marie returned home today with new orders for HH RN. Her s/o, Ayaan drove her home via private vehicle. She will follow up with her PCP and discharge plan of care. She was happy to be returning home. Patient/Family Education Needs: Review discharge instructions and limitations, discussion of self care needs including ask me three. Services Needed at Discharge: Home Health Care Services (new HH RN) SDOH Health Related Social Needs: Health related social needs education
--- NOTE | 2025-05-18 16:55 | PDOC.HHF2F ---
Home Health Referral Home Health Orders Medical diagnosis necessitation home health referral: hypercalcemia, heart failure, diabetes mellitus type 2 Registered Nurse: Check all that apply Instruct on new or changed medication(s)/assess compliance: Ordered Assess for exacerbation of medical condition, instruct patient/caregivers on signs and symptoms to report for early detection: Ordered Physical Therapist: Check all that apply Increase strength & endurance for safe mobility at home: Ordered To design/establish home maintenance program: Ordered Fall reduction therapy program for patient with history of frequent falls: Ordered Home safety evaluation and teaching/gait training including stair management (if applicable): Ordered Home Bound Status Describe why leaving home would require a considerable and taxing effort: Requires frequent rest periods Encounter Date and Reason: I certify that a FTF encounter for this patient was performed on May 18, 2025 and that such encounter was related to the primary reason the patient requires home health services. The encounter was conducted in the following manner: By me as the certifying physician, [employer], [place] or By an inpatient physician, [employer] or PA during an inpatient stay who communicated findings to me, Certification And Authentication I certify that I composed the above information based on my clinical judgment relating to this patient's medical condition and, if applicable, clinical findings communicated to me by the NPP or inpatient physician who performed the FTF encounter. Name of Provider that will be monitoring home health services: Laisha Mcmahon
[2025-05-18 17:22] LABS: Total Protein 5.9 g/dL (6.3-8.2)
[2025-05-19 10:27] LABS: Calcium Urine 15.1 mg/dL (See Note); Timed Urine Volume 2700 mL
[2025-05-19 10:58] LABS: Kappa Free Light Chain 2.69 mg/dL (0.33-1.94); Lambda Free Light Chain 3.14 mg/dL (0.57-2.63)
[2025-05-19 13:10] LABS: Albumin 57.7 % (55.8-66.1); Albumin g/dL 3.4 g/dL (3.6-5.2); Alpha 1 g/dL 0.20 g/dL (0.15-0.40); Alpha 2 g/dL 0.90 g/dL (0.50-1.00); Beta g/dL 0.80 g/dL (0.60-1.20); Gamma g/dL 0.60 g/dL (0.60-1.60)
[2025-05-19 15:02] LABS: Albumin, Urine % 24.9 %; Albumin, Urine mg/dL 3 mg/dL; Globulins, Urine % 75.1 %; Globulins, Urine mg/dL 11 mg/dL
[2025-05-26 11:24] LABS: 1,25-Dihydroxyvitamin D 16 pg/mL (18-78)
== END 2025-05-18 15:15 | disposition home health service (06) | DRG 644 ==
LOC: ER 16:48 → MS 17:14
PROVIDERS: Nurse Practitioner Acute Care; Admitting Provider Hospitalist; Emergency Provider Registered Nurse Emergency; PCP Family Medicine; Responsible Provider Nurse Practitioner Acute Care; Visit Provider Hospitalist
DX: E21.3 Hyperparathyroidism, unspecified (principal); I13.0 Hypertensive heart and chronic kidney disease with heart failure and stage 1 through stage 4 chronic kidney disease, or unspecified chronic kidney disease; J96.11 Chronic respiratory failure with hypoxia; N18.4 Chronic kidney disease, stage 4 (severe); I50.32 Chronic diastolic (congestive) heart failure; K29.60 Other gastritis without bleeding; E11.22 Type 2 diabetes mellitus with diabetic chronic kidney disease; J44.9 Chronic obstructive pulmonary disease, unspecified; I27.20 Pulmonary hypertension, unspecified; Z95.0 Presence of cardiac pacemaker; Z79.899 Other long term (current) drug therapy; Z99.81 Dependence on supplemental oxygen; Z95.818 Presence of other cardiac implants and grafts; E66.9 Obesity, unspecified; G40.409 Other generalized epilepsy and epileptic syndromes, not intractable, without status epilepticus; D64.9 Anemia, unspecified; Z66 Do not resuscitate; G25.81 Restless legs syndrome; E89.0 Postprocedural hypothyroidism; M81.0 Age-related osteoporosis without current pathological fracture; I44.7 Left bundle-branch block, unspecified; I44.1 Atrioventricular block, second degree; M17.11 Unilateral primary osteoarthritis, right knee; K59.00 Constipation, unspecified; R29.6 Repeated falls; R41.89 Other symptoms and signs involving cognitive functions and awareness; I25.10 Atherosclerotic heart disease of native coronary artery without angina pectoris; E78.5 Hyperlipidemia, unspecified; E53.8 Deficiency of other specified B group vitamins; N32.81 Overactive bladder; M51.26 Other intervertebral disc displacement, lumbar region; I48.91 Unspecified atrial fibrillation; M47.812 Spondylosis without myelopathy or radiculopathy, cervical region; Z79.4 Long term (current) use of insulin; Z98.1 Arthrodesis status; Z96.642 Presence of left artificial hip joint; Z87.891 Personal history of nicotine dependence; Z95.1 Presence of aortocoronary bypass graft; M48.061 Spinal stenosis, lumbar region without neurogenic claudication
CPT/HCPCS: 00123; 36415; 80048; 80053; 80307; 82306; 82533; 82805; 84156; 84166; 86335; 93005; 94640; 96361; 96374; 99285; 70450; 71046; 81003; 81050; 82330; 82340; 82397; 82652; 83735; 83883; 83970; 84100; 84165; 84484; 85025; 93010; 94664; 94760; 99223; 99232; 99233; 99239; J0630; J0780; J1815; J1938; J2405; J3475; J3480; J3490

== ENCOUNTER 2025-05-22 04:10 | Outpatient (CLI) | payer MEDICARE, MEDICAID, SELFPAY ==
[2025-05-22 16:39] LABS: ALT 38 U/L (14-59); AST 20 U/L (15-37); Albumin 3.6 g/dL (3.4-5.0); Alkaline Phosphatase 41 U/L (46-116); Anion Gap 12.1 mmol/L (3-11); BUN 25 mg/dL (7-18); Bilirubin, Total 0.6 mg/dL (0.2-1.0); CO2 22.9 mmol/L (21.0-32.0); Calcium 8.6 mg/dL (8.5-10.1); Chloride 107 mmol/L (98-107); Estimated GFR 22.03 (mL/min/1.73m2); Glucose 144 mg/dL (74-106); Potassium 4.2 mmol/L (3.5-5.1); Sodium 142 mmol/L (136-145); Total Protein 6.7 g/dL (6.4-8.2)
== END 2025-05-22 04:11 | disposition home or self-care (01) ==
LOC: LOS 04:10
PROVIDERS: PCP Family Medicine; Visit Provider Family Medicine
DX: E21.3 Hyperparathyroidism, unspecified (principal); I10 Essential (primary) hypertension
CPT/HCPCS: 36415; 80053; 83970

== ENCOUNTER 2025-06-24 03:19 | Outpatient (CLI) | payer MEDICARE, MEDICAID, SELFPAY ==
[2025-06-24 12:35] LABS: ALT 26 U/L (14-59); AST 17 U/L (15-37); Albumin 3.9 g/dL (3.4-5.0); Alkaline Phosphatase 73 U/L (46-116); Anion Gap 12.1 mmol/L (3-11); BUN 43 mg/dL (7-18); Bilirubin, Total 0.8 mg/dL (0.2-1.0); CO2 25.9 mmol/L (21.0-32.0); Calcium 9.6 mg/dL (8.5-10.1); Chloride 105 mmol/L (98-107); Estimated GFR 23.24 (mL/min/1.73m2); Glucose 114 mg/dL (74-106); NT-proBNP 321 pg/mL (<300); Potassium 3.8 mmol/L (3.5-5.1); Sodium 143 mmol/L (136-145); Total Protein 7.4 g/dL (6.4-8.2)
== END 2025-06-24 03:20 | disposition home or self-care (01) ==
LOC: LOS 03:19
PROVIDERS: PCP Family Medicine; Visit Provider Family Medicine
DX: I10 Essential (primary) hypertension (principal); I50.9 Heart failure, unspecified; I27.20 Pulmonary hypertension, unspecified
CPT/HCPCS: 36415; 80053; 83880

== ENCOUNTER → 2025-08-13 10:53 | Outpatient (BNVA) | payer MEDICARE, MEDICAID, SELFPAY | PROVIDERS: PCP Family Medicine; Referring Provider Family Medicine; Visit Provider Internal Medicine Pulmonary Disease | DX: J44.0 Chronic obstructive pulmonary disease with (acute) lower respiratory infection (principal); J96.11 Chronic respiratory failure with hypoxia; I27.20 Pulmonary hypertension, unspecified; I50.9 Heart failure, unspecified; Z87.891 Personal history of nicotine dependence | CPT/HCPCS: 99214 ==

== ENCOUNTER 2025-08-29 14:47 | Outpatient (REF) | payer MEDICARE, MEDICAID, SELFPAY ==
[2025-08-29 13:57] LABS: Abs Immature Grans 0.03 10^3/uL (0.0-0.06); HCT 43.7 % (36.0-46.0); HGB 13.4 g/dL (11.2-15.7); Immature Grans % 0.3 %; MCH 28.6 pg (27.0-33.0); MCHC 30.7 % (32.0-36.0); MCV 93 fL (80-95); MPV 10.5 fL (8.0-11.0); Platelet Count 250 10^3/uL (130-400); RBC 4.69 10^6/uL (3.93-5.22); RDW 13.9 % (11.7-14.6); RDW-SD 47.2 fL; WBC 8.87 10^3/uL (4.4-10.8)
[2025-08-29 14:43] LABS: ALT 20 U/L (10-49); AST 21 U/L (<34); Albumin 4.3 g/dL (3.2-5.0); Alkaline Phosphatase 101 U/L (46-116); Anion Gap 10.2 mmol/L (3-11); BUN 42 mg/dL (9-23); Bilirubin, Total 0.9 mg/dL (0.2-1.2); CO2 29.8 mmol/L (20.0-31.0); Calcium 9.6 mg/dL (8.3-10.6); Chloride 104 mmol/L (98-107); Glucose 94 mg/dL (74-106); Potassium 4.3 mmol/L (3.5-5.1); Sodium 144 mmol/L (136-145); Total Protein 6.8 g/dL (5.7-8.2)
[2025-09-01 11:03] LABS: Alpha 1 Antitrypsin,Serum 118 mg/dL (90-200)
== END 2025-08-29 14:48 | disposition home or self-care (01) ==
LOC: LBN 14:47
PROVIDERS: PCP Family Medicine; Visit Provider Family Medicine
DX: I50.9 Heart failure, unspecified (principal); J96.11 Chronic respiratory failure with hypoxia; J44.0 Chronic obstructive pulmonary disease with (acute) lower respiratory infection; I10 Essential (primary) hypertension; I13.0 Hypertensive heart and chronic kidney disease with heart failure and stage 1 through stage 4 chronic kidney disease, or unspecified chronic kidney disease; I50.33 Acute on chronic diastolic (congestive) heart failure; N18.4 Chronic kidney disease, stage 4 (severe); J44.9 Chronic obstructive pulmonary disease, unspecified
CPT/HCPCS: 80053; 82103; 85025

== ENCOUNTER 2025-09-08 12:25 | Emergency (ER) | payer MEDICARE, MEDICAID, SELFPAY ==
[2025-09-08] VITALS (60 sets, daily range): BP systolic 99–163; BP diastolic 50–94; PULSE 56–83; RESP 13–22; TEMP 36.8; O2SAT 93–100
--- NOTE | 2025-09-08 12:15 | RT.EKG_ITS ---
APPROVED REPORT Exam: Resting ECG Reason for Exam: Chest Pain Patient Location: E HR:64 bpm ECG Measurements Heart Rate 64 AXIS ME 237 P 71 QRSd 139 QRS 23 QT 472 T 209 QTc 487 Conclusion Ventricular-paced rhythm, rate 64 No STEMI No significant changes from priors
--- NOTE | 2025-09-08 12:30 | DI.RAD_ITS ---
Exam(s) XR CHEST 2V PA LATERAL EXAM: XR CHEST 2V PA LATERAL CLINICAL HISTORY: Chest pain. TECHNIQUE: 2D digital imaging was performed. COMPARISON: CR XR CHEST 2V PA LATERAL from 05/15/2025 FINDINGS: 2 views: The chest leads in place. Sternotomy wires and evidence of previous CABG again noted. Heart size remains normal and mediastinum is not widened. No infiltrates nor pleural effusions. No pulmonary edema. No pneumothorax. Fusion hardware in the cervical spine again noted. IMPRESSION: No acute pulmonary findings.Previous sternotomy and CABG again noted. Normal heart size. No pulmonary edema. DATA REPOSITORY: RADIATION DOSE DELIVERED:
--- NOTE | 2025-09-08 12:46 | ED.GENADUL_ITS ---
Discharge Plan Disposition Patient Disposition: Transfer-Acute Inpatient Care Specific Acute Inpt Facility: [facility] Condition: Stable Discharge Details Clinical Impression: Unstable angina, CHF (congestive heart failure), Chronic hypoxic respiratory failure, Coronary artery disease, Chronic kidney disease, stage 4 (severe) Primary Care Provider: Laisha Mcmahon ED Provider: Mike Guevara Home Meds and New Rx's Prescriptions: No Action albuterol sulfate 2.5 mg /3 mL (0.083 %) solution for nebulization 2.5 mg INHALATION Q2H PRN PRN (Reason: shortness of breath or wheezing) Qty: 180 4RF epinephrine [EpiPen 2-Erick] 0.3 mg/0.3 mL auto-injector 0.3 mg IM ONCE Qty: 2 10RF allopurinol 100 mg tablet 100 mg PO QHS Qty: 90 4RF aspirin [Adult Low Dose Aspirin] 81 mg tablet,delayed release (DR/EC) 81 mg PO DAILY Qty: 90 4RF atorvastatin 40 mg tablet 40 mg PO DAILY Qty: 90 6RF estradiol 0.01 % (0.1 mg/gram) cream 1 g vaginal .twice weekly Qty: 42.5 5RF fesoterodine 8 mg tablet extended release 24 hr 8 mg PO DAILY Qty: 90 4RF Rx Instructions: this is the med her ins co said had no copay insulin glargine [Basaglar KwikPen U-100 Insulin] 100 unit/mL (3 mL) insulin pen 40 unit SC DAILY Qty: 60 5RF meclizine 12.5 mg tablet 12.5 mg PO TID PRN (Reason: dizziness) Qty: 60 4RF metoprolol succinate 25 mg tablet extended release 24 hr 12.5 mg PO DAILY Qty: 45 3RF ondansetron 4 mg tablet,disintegrating 4 mg translingual Q8H PRN Qty: 30 3RF pantoprazole 40 mg tablet,delayed release (DR/EC) 40 mg PO DAILY Qty: 90 4RF ropinirole 2 mg tablet 2 mg PO QPM PRN (Reason: restless leg(s)) Qty: 90 5RF Rx Instructions: acetaminophen [Tylenol Extra Strength] 500 mg tablet 1,000 mg PO BID Breztri Aerosphere 160-9-4.8 mcg/actuation HFA aerosol inhaler 2 inh inhalation BID Qty: 10.7 12RF potassium chloride 20 mEq tablet,ER particles/crystals 20 meq PO QDAY Qty: 90 4RF Shingrix (PF) 50 mcg/0.5 mL suspension for reconstitution 0.5 ml IM ONCE Qty: 1 1RF Rx Instructions: as a single dose. Repeat in 2 months RSVPreF3 antigen 2 of 2 120 mcg suspension for reconstitution 0.5 ml IM ONCE Qty: 1 0RF Rx Instructions: as a single dose torsemide 20 mg tablet See Rx Instructions PO BID Qty: 240 12RF Rx Instructions: 4 tab in AM and 4 tab after noon orally twice a day. Note increase due to CHF flair spironolactone 25 mg tablet 25 mg PO BID Qty: 180 4RF (DME) pen needle, diabetic [1st Tier Unifine Pentips] 31 gauge x 1/4 needle See Dose Instructions .ROUTE .MEDSUPPLY Qty: 450 5RF Dose Instruction: As directed Rx Instructions: 5/ day E11.65. needed for several meds amlodipine 5 mg tablet 5 mg PO DAILY Qty: 90 6RF Creon 6,000-19,000 -30,000 unit capsule,delayed release(DR/EC) 1 cap PO TID Qty: 270 5RF B-complex with vitamin C Tablet 1 tab PO DAILY Qty: 90 4RF duloxetine 30 mg capsule,delayed release(DR/EC) 30 mg PO DAILY Qty: 90 12RF Eliquis 2.5 mg tablet 2.5 mg PO BID Qty: 180 4RF insulin aspart U-100 [Novolog FlexPen U-100 Insulin] 100 unit/mL (3 mL) insulin pen 10 unit SC TID Qty: 45 5RF nystatin 100,000 unit/gram powder 1 applic topical BID Qty: 60 3RF Rx Instructions: apply under breasts nitroglycerin 0.4 mg tablet, sublingual 0.4 mg sublingual Q5M PRN (Reason: chest pain) Qty: 25 0RF Rx Instructions: do not exceed 3 doses per episode; go to ER if not improved cephalexin 500 mg capsule 500 mg PO TID Qty: 90 2RF levetiracetam 750 mg tablet 750 mg PO BID Qty: 180 3RF sacubitril-valsartan [Entresto] 24-26 mg tablet 1 tab PO BID Qty: 60 4RF HPI <Josefa M [place], MD - Last Filed: 09/08/25 16:01> General Mode of arrival: EMS . Date/Time Provider Initiated Documentation: 09/08/25 12:31 . Limitations to Documentation: no limitations . Information obtained by: patient, EMS and old records reviewed . HPI Narrative: This is a 74-year-old female patient with a past medical history significant for CHF, CAD with history of triple bypass, type 2 diabetes, CKD, atrial fibrillation on apixaban, presenting for evaluation of chest pain. This patient's pain started last night around 6 PM, felt like there was an elephant sitting on her chest. She has received from EMS a full baby aspirin and 2 doses of nitro which did improve her pain somewhat. This pain does not change based on position, deep breath, or movement. She states that her last cardiac event was associated with significant nausea and she does not remember if the chest pain felt similar to this or not. Occasional cough reported, no change to p.o. intake, taking her torsemide as recommended with stable peripheral edema per patient baseline report. Related Data Home Medications ?Medication ?Instructions ?Recorded ?Confirmed albuterol sulfate 2.5 mg/3 mL 2.5 mg (3 mL) inhalation Q2H PRN 09/10/20 09/08/25 (0.083 %) solution for nebulization PRN shortness of b reath or wheezing #180 mL pen needle, diabetic 31 gauge x #450 ea 12/10/2009/08 (1st Tier Unifine Pentips) acetaminophen 500 mg tablet 1,000 mg PO BID 11/15/22 1 (Tylenol Extra Strength) epinephrine 0.3 mg/0.3 mL 0.3 mg (0.3 mL) IM ONCE #2 e a 02/20/24 09/08/25 injection, auto-injector (EpiPen 2-Erick) amlodipine 5 mg tablet 5 mg PO DAILY #90 tabs 09/0609/08/25 [id number] 1 cap PO TID #270 caps 09/2709/08/25 (pork)6,000-19,000-30,000 unit capsule,del rel (Creon) B-complex with vitamin C 1 tab PO DAILY #90 tabs 11/0925 apixaban 2.5 mg tablet (Eliquis) 2.5 mg PO BID #180 ta bs 03/11/25 09/08/25 duloxetine 30 mg capsule,delayed 30 mg PO DAILY #90 ta b-caps 03/11/25 09/08/25 release insulin aspart U-100 100 unit/mL 10 unit (0.1 mL) subc ut TID #45 mL 03/30/25 09/08/25 (3 mL) subcutaneous pen (Novolog FlexPen U-100 Insulin aspart) allopurinol 100 mg tablet 100 mg PO QHS #90 tab-caps 0 05/06/25 09/08/25 aspirin 81 mg tablet,delayed 81 mg PO DAILY #90 tabs 0 05/06/25 09/08/25 release (Adult Low Dose Aspirin) atorvastatin 40 mg tablet 40 mg PO DAILY #90 tab-caps 05/06/25 09/08/25 estradiol 0.01% (0.1 mg/gram) 1 g vaginal .twice weekl y #42.5 05/06/25 09/08/25 vaginal cream grams fesoterodine 8 mg tablet,extended 8 mg PO DAILY #90 ta bs 05/06/25 09/08/25 release 24 hr insulin glargine 100 unit/mL (3 40 unit (0.4 mL) subcu t DAILY #60 05/06/25 09/08/25 mL) subcutaneous pen (Basaglar mL KwikPen U-100 Insulin) meclizine 12.5 mg tablet 12.5 mg PO TID PRN dizziness #60 05/06/25 09/08/25 tabs metoprolol succinate 25 mg 12.5 mg (1/2 x 25 mg) PO DA MARLENA #45 05/06/25 09/08/25 tablet,extended release 24 hr tabs Held on 08/18/25. Instructions: Changed by Provider ondansetron 4 mg disintegrating 4 mg translingual Q8H PRN Nausea/ 05/06/25 09/08/25 tablet vomiting #30 tabs pantoprazole 40 mg tablet,delayed 40 mg PO DAILY #90 t abs 05/06/25 09/08/25 release ropinirole 2 mg tablet 2 mg PO QPM PRN restless leg (s) 05/06/25 09/08/25 #90 tabs nystatin 100,000 unit/gram topical 1 applic topical BI D #60 grams 05/07/25 09/08/25 powder nitroglycerin 0.4 mg sublingual 0.4 mg sublingual Q5M PRN chest 06/11/25 09/08/25 tablet pain #25 tabs cephalexin 500 mg capsule 500 mg PO TID #90 caps 08/0109/08/25 budesonide 160 mcg-glycopyr 9 2 inh inhalation BID #10 .7 grams 08/13/25 09/08/25 mcg-formot 4.8 mcg/actuation HFA inhaler (Breztri Aerosphere) RSVPreF3 antigen 2 of 2 120 mcg IM 0.5 ml IM ONCE #1 e a 08/18/25 09/08/25 susp potassium chloride 20 mEq 20 meq PO QDAY #90 tabs 05/0509/08/25 tablet,extended release(part/cryst) varicella-zoster glycoE vacc-[id number] 0.5 ml IM ONCE #1 e a 08/18/25 09/08/25 adj(PF) 50 mcg/0.5 mL IM susp, kit (Shingrix (PF)) levetiracetam 750 mg tablet 750 mg PO BID #180 tabs 09/08/25 Entresto 24 mg-26 mg tablet 1 tab PO BID #60 tabs 08/1109/08/25 (sacubitril-valsartan) spironolactone 25 mg tablet 25 mg PO BID #180 tabs 09/08/25 torsemide 20 mg tablet See Rx Instructions PO BID # 240 09/01/25 09/08/25 tabs Previous Rx's ?Medication ?Instructions ?Recorded albuterol sulfate 2.5 mg/3 mL 2.5 mg (3 mL) inhalation Q2H PRN 09/10/20 (0.083 %) solution for nebulization PRN shortness of b reath or wheezing #180 mL pen needle, diabetic 31 gauge x #450 ea 12/10/2009/14 (1st Tier Unifine Pentips) epinephrine 0.3 mg/0.3 mL 0.3 mg (0.3 mL) IM ONCE #2 e a 02/20/24 injection, auto-injector (EpiPen 2-Erick) amlodipine 5 mg tablet 5 mg PO DAILY #90 tabs 09/06 [id number] 1 cap PO TID #270 caps 09/27 (pork)6,000-19,000-30,000 unit capsule,del rel (Creon) B-complex with vitamin C 1 tab PO DAILY #90 tabs 11/09 10/05 apixaban 2.5 mg tablet (Eliquis) 2.5 mg PO BID #180 ta bs 03/11/25 duloxetine 30 mg capsule,delayed 30 mg PO DAILY #90 ta b-caps 03/11/25 release insulin aspart U-100 100 unit/mL 10 unit (0.1 mL) subc ut TID #45 mL 03/30/25 (3 mL) subcutaneous pen (Novolog FlexPen U-100 Insulin aspart) allopurinol 100 mg tablet 100 mg PO QHS #90 tab-caps 0 05/06/25 aspirin 81 mg tablet,delayed 81 mg PO DAILY #90 tabs 0 05/06/25 release (Adult Low Dose Aspirin) atorvastatin 40 mg tablet 40 mg PO DAILY #90 tab-caps 05/06/25 estradiol 0.01% (0.1 mg/gram) 1 g vaginal .twice weekl y #42.5 05/06/25 vaginal cream grams fesoterodine 8 mg tablet,extended 8 mg PO DAILY #90 ta bs 05/06/25 release 24 hr insulin glargine 100 unit/mL (3 40 unit (0.4 mL) subcu t DAILY #60 05/06/25 mL) subcutaneous pen (Basaglar mL KwikPen U-100 Insulin) meclizine 12.5 mg tablet 12.5 mg PO TID PRN dizziness #60 05/06/25 tabs metoprolol succinate 25 mg 12.5 mg (1/2 x 25 mg) PO DA MARLENA #45 05/06/25 tablet,extended release 24 hr tabs Held on 08/18/25. Instructions: Changed by Provider ondansetron 4 mg disintegrating 4 mg translingual Q8H PRN Nausea/ 05/06/25 tablet vomiting #30 tabs pantoprazole 40 mg tablet,delayed 40 mg PO DAILY #90 t abs 05/06/25 release ropinirole 2 mg tablet 2 mg PO QPM PRN restless leg (s) 05/06/25 #90 tabs nystatin 100,000 unit/gram topical 1 applic topical BI D #60 grams 05/07/25 powder nitroglycerin 0.4 mg sublingual 0.4 mg sublingual Q5M PRN chest 06/11/25 tablet pain #25 tabs cephalexin 500 mg capsule 500 mg PO TID #90 caps 08/01 budesonide 160 mcg-glycopyr 9 2 inh inhalation BID #10 .7 grams 08/13/25 mcg-formot 4.8 mcg/actuation HFA inhaler (Breztri Aerosphere) RSVPreF3 antigen 2 of 2 120 mcg IM 0.5 ml IM ONCE #1 e a 08/18/25 susp potassium chloride 20 mEq 20 meq PO QDAY #90 tabs 05/05 tablet,extended release(part/cryst) varicella-zoster glycoE vacc-AS01B 0.5 ml IM ONCE #1 e a 08/18/25 adj(PF) 50 mcg/0.5 mL IM susp, kit (Shingrix (PF)) levetiracetam 750 mg tablet 750 mg PO BID #180 tabs Entresto 24 mg-26 mg tablet 1 tab PO BID #60 tabs 08/11 05/05 (sacubitril-valsartan) spironolactone 25 mg tablet 25 mg PO BID #180 tabs torsemide 20 mg tablet See Rx Instructions PO BID # 240 09/01/25 tabs Allergies Allergy/AdvReac Type Severity Reaction Status Date / Time venom-honey bee Allergy Severe ANAPHYLAXIS Verified 09/01/25 12:41 oxycodone Allergy Mild Visual Verified 09/01/25 12:41 Disturbances adhesive Allergy BLISTERS Verified 09/01/25 12:41 General Stated Complaint: Chest Pain STEPHANIE: 3 Exam <Josefa Heard MD - Last Filed: 09/08/25 16:01> Narrative Exam Narrative: Gen: Awake and alert, in no apparent distress HEENT: Non-icteric sclera Neck: Supple Lungs: No apparent respiratory distress, normal respiratory effort. Lung sounds clear and equal bilaterally without wheezes, rhonchi, rales CV: Appears well perfused, heart with regular rate and rhythm, strong distal pulses. Midline sternotomy well-healed, with a small area of petechiae at the very bottom of the scar. No reproduction of the chest pain with palpation, no other overlying skin changes Abdomen: Non-distended, soft, nontender to palpation without rigidity, rebound, or guarding. MSK: Moves 4 extremities without apparent limitation in ROM. 1+ peripheral edema bilateral lower extremities, right very slightly worse than left, reported as baseline given the patient's history of ankle surgery. Skin: Visualized skin without rashes, cyanosis. Neuro: Normal Gait, no obvious focal deficits or facial asymmetry. Speaks in full, clear sentences. Psych: Appropriate for situation. Course <Josefa Heard MD - Last Filed: 09/08/25 16:01> Vital Signs Vital signs: Vital Signs Temperature 36.8 C 09/08/25 12:25 Pulse 73 09/08/25 12:25 Respiratory Rate 22 09/08/25 12:25 Blood Pressure 126/58 L 09/08/25 12:25 Pulse Oximetry 93 09/08/25 12:25 Temperature 36.8 C 09/08/25 12:25 Temperature Source Oral 09/08/25 12:25 Pulse 73 09/08/25 12:25 Respiratory Rate 22 09/08/25 12:25 Blood Pressure 126/58 L 09/08/25 12:25 Blood Pressure Position Supine 09/08/25 12:25 Pulse Oximetry 93 09/08/25 12:25 Oxygen Delivery Method Nasal Cannula 09/08/25 12:25 Oxygen Flow Rate 2.5 09/08/25 12:25 Pain Level 6 09/08/25 12:25 Comment on baseline O2 09/08/25 12:25 Medical Decision Making <Josefa Heard MD - Last Filed: 09/08/25 16:01> This is a 74-year-old female patient presenting for evaluation of chest pain. My differential includes but is not limited to ACS including STEMI, NSTEMI, unstable angina, certainly considered arrhythmia, pericarditis/myocarditis, aortic pathology. Considered pulmonary abnormalities including pneumonia, bronchitis, pleural effusion, pulmonary edema, reactive airway disease, pneumothorax. The patient is without tachycardia, hypoxia, or a pleuritic component to his pain to significantly increase my concern for pulmonary embolism, and she has been appropriately anticoagulated. No GI symptoms or vomiting to suggest Boerhaave's, esophagitis, peptic ulcer disease, pancreatitis. Considered musculoskeletal pathologies including costochondritis, chest wall pain. EKG reviewed by myself, showing a paced rhythm with a ventricular rate of 64, with no evidence of acute ischemia by Sgarbossa criteria, nor ectopy or other interval abnormalities besides a prolonged QRS. We will obtain labs to include CBC, CMP, magnesium, troponin, BNP, coags, and I will provide the patient with a nitroglycerin for ongoing pain management. Will obtain an x-ray of the chest. - I independently interpreted the laboratory studies, which show no significant leukocytosis, anemia, or thrombocytopenia. The chemistry panel is without evidence of electrolyte abnormality or liver injury. The patient's renal function is at her baseline, consistent with her known CKD stage IV. Troponin was negative and without interval increase on 1 hour delta recheck, BNP is not significantly elevated and the lipase is low. Chest x-ray reveals no acute abnormalities to explain the patient's symptoms. The patient's chest pain persisted, did not improve with the sublingual nitro, she was given intravenous morphine with some effect but not resolution in her pain. I am concerned given the ongoing pain and her robust cardiac history for unstable angina. The patient's case was discussed with cardiology, they note that the patient has some intermittent Mobitz 1 appearing features of her EKG, on telemetry at this time she is not demonstrating any sort of heart block, they feel that the patient would be best served at their facility, and Dr. Carbajal has graciously accepted this patient for transfer. The patient's last dose of apixaban was 830 this morning and she should not be initiated on heparin until it has been 12 hours since that last dose. I will place the patient on a nitro drip given her ongoing chest pain. The oncoming provider was made aware of this patient as she was still pending bed assignment and transfer at the time that I signed out care. Was hemodynamically stable throughout her time under my care. If she was still in this department at 2030 she will require initiation of heparin. Josefa Heard MD Quality:SDOH Health Related Social Needs: Health related social needs house/econ circumstance lo cornelius/isolated <Mike Guevara MD - Last Filed: 09/08/25 18:36> This is a 74-year-old female patient presenting for evaluation of chest pain. My differential includes but is not limited to ACS including STEMI, NSTEMI, unstable angina, certainly considered arrhythmia, pericarditis/myocarditis, aortic pathology. Considered pulmonary abnormalities including pneumonia, bronchitis, pleural effusion, pulmonary edema, reactive airway disease, pneumothorax. The patient is without tachycardia, hypoxia, or a pleuritic component to his pain to significantly increase my concern for pulmonary embolism, and she has been appropriately anticoagulated. No GI symptoms or vomiting to suggest Boerhaave's, esophagitis, peptic ulcer disease, pancreatitis. Considered musculoskeletal pathologies including costochondritis, chest wall pain. EKG reviewed by myself, showing a paced rhythm with a ventricular rate of 64, with no evidence of acute ischemia by Sgarbossa criteria, nor ectopy or other interval abnormalities besides a prolonged QRS. We will obtain labs to include CBC, CMP, magnesium, troponin, BNP, coags, and I will provide the patient with a nitroglycerin for ongoing pain management. Will obtain an x-ray of the chest. - I independently interpreted the laboratory studies, which show no significant leukocytosis, anemia, or thrombocytopenia. The chemistry panel is without evidence of electrolyte abnormality or liver injury. The patient's renal function is at her baseline, consistent with her known CKD stage IV. Troponin was negative and without interval increase on 1 hour delta recheck, BNP is not significantly elevated and the lipase is low. Chest x-ray reveals no acute abnormalities to explain the patient's symptoms. The patient's chest pain persisted, did not improve with the sublingual nitro, she was given intravenous morphine with some effect but not resolution in her pain. I am concerned given the ongoing pain and her robust cardiac history for unstable angina. The patient's case was discussed with cardiology, they note that the patient has some intermittent Mobitz 1 appearing features of her EKG, on telemetry at this time she is not demonstrating any sort of heart block, they feel that the patient would be best served at their facility, and Dr. Carbajal has graciously accepted this patient for transfer. The patient's last dose of apixaban was 830 this morning and she should not be initiated on heparin until it has been 12 hours since that last dose. I will place the patient on a nitro drip given her ongoing chest pain. The oncoming provider was made aware of this patient as she was still pending bed assignment and transfer at the time that I signed out care. Was hemodynamically stable throughout her time under my care. If she was still in this department at 2030 she will require initiation of heparin. Josefa Heard MD Addendum by Dr. Guevara: Patient care assumed pending transfer to [facility]. During observation in the ER patient had increasing chest pain, and again was dosed with 2 mg of morphine. Patient remained hemodynamically stable and was transferred to [facility] without any further acute issues. [facility] <Josefa Heard MD - Last Filed: 09/08/25 16:01> All Active Problems (Updated 09/08/25 @ 15:53 by Josefa Heard MD) Unstable angina (Acute) Acute cellulitis (Acute) On deep vein thrombosis (DVT) prophylaxis (Acute) Hypercalcemia (Acute) Reflux gastritis (Acute) Hip region mass (Acute) Overactive bladder (Acute) Incontinence in female (Acute) Frequent UTI (Acute) Osteoporosis (Chronic) CHF (congestive heart failure) (Chronic) HFpEF Mobitz type 2 second degree atrioventricular block (Acute ~03/19/24) Left bundle branch block (Chronic) Chronic hypoxic respiratory failure (Acute) on home O2 Obesity (Chronic) Nocturnal hypoxia (Acute) Osteoarthritis of right knee (Acute) Low magnesium level (Acute) Hyperparathyroidism (Acute) Gout (Chronic) Type 2 diabetes mellitus with diabetic nephropathy (Acute) Coronary artery disease (Chronic) Chronic kidney disease, stage 4 (severe) (Acute) 12/2021, Cr-2.5 Bimalleolar ankle fracture (Acute) s/p ORIF on 10/07 Multiple falls (Acute) Wound abscess (Acute) on chronic antibiotics and sees ID at [facility] Vaginal atrophy (Acute) Hypoxia (Acute) Pulmonary hypertension (Acute) Posterior tibial tendon dysfunction (Acute) 02/03/16 Ankle pain (Acute 03/13/14) Numbness and tingling in left upper extremity (Acute) Medical History (Updated 09/08/25 @ 15:53 by Josefa Heard MD) Hypocalcemia Cyst of lateral meniscus of right knee Pacemaker [employer] Micra [facility] 03/24/24 RH Presence of Watchman left atrial appendage closure device [facility] 01/03/19 RH Chronic obstructive lung disease Palliative care patient Fracture of proximal end of right fibula Closed trimalleolar fracture of right ankle (10/03/21) Closed avulsion fracture of condyle of right femur Tear of lateral meniscus of right knee Medial meniscus tear 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 endometrial biopsy Hepatomegaly 06/10/04 Abnormal mammography 08/10/06 Tarsal tunnel syndrome 06/11/13 Hyperlipidemia (08/10/00) Spinal stenosis of lumbar region (02/15/16) Rotator cuff syndrome (08/01/09) Primary osteoarthritis of left hip (09/17/15) Postoperative wound dehiscence (12/23/15) Low back pain (04/10/03) DISC HERNIATION L4. MULTILEVEL DJD/SPINAL STENOSIS BY MRI; S/P surgery Hip joint inflamed (09/03/15) Hammer toe Left/right Folate deficiency (02/15/16) Carpal tunnel syndrome (08/10/06) BILATERAL R S/P SURGERY BMI 40.0-44.9, adult (12/02/14) Vitamin D deficiency Cervical spondylosis with myelopathy Atrial fibrillation Gout Spinal stenosis of lumbar region at multiple levels Restless leg syndrome Essential hypertension Surgical History (Updated 05/30/25 @ 00:02 by ROBBY SIDDIQUI) S/P ORIF (open reduction internal fixation) fracture RT ANKLE S/P CABG (coronary artery bypass graft) (01/03/19) 4 vessel CABG and LA appendage excision, Dr. Nav Wang, [facility], [place] H/O Spinal surgery multiple spine surgeries; low back x 2; She had multilevel DJD and spinal stenosis; disc herniation. 2008-cervical repair; C6-C7 disc; recurrent surgery. H/O arthrodesis 04/10/23 s/p RT ankle arthodesis at [facility]- External Fixator placed D/T complications from ORIF done at [facility] on 10/07/21 History of bilateral tubal ligation 09/11/80 S/P rotator cuff repair 09/11/80 History of orthopedic surgery 09/11/97 tarsal tunnel release S/P cholecystectomy 09/11/12 History of hip surgery 11/10/15 left hip arthroplasty 12/04/15-placement of wound VAC to left hip Status post incision and drainage 12/04/15 left hip surgical wound dehiscence and infection Cataract (01/07/14) FOLLOWED BY [employer] Family History Mother Diabetes Essential hypertension Personal history of malignant neoplasm KIDNEY/LIVER/BRAIN Heart disease Hyperlipidemia Stroke Asthma Father Diabetes Essential hypertension Personal history of malignant neoplasm BONE Heart disease Asthma Sister Diabetes Essential hypertension Depression Heart disease Asthma Grandfather No problems noted. Grandfather No problems noted. Grandmother Personal history of malignant neoplasm UTERINE Grandmother Diabetes Aunt Personal history of malignant neoplasm BREAST Brother Hyperlipidemia Stroke Sister Asthma Son Asthma Daughter Depression Asthma Daughter Asthma Daughter Depression Neoplasm Asthma Brother No problems noted. Social History (Updated 07/23/25 @ 08:42 by Tanesha Bedolla) Smoking/Tobacco Use Status: Former Tobacco Use tobacco type: cigarettes Quit Date: 12/10/18 Tobacco: How many years used: 40 Second Hand Exposure: Yes Smoking risk assessment performed?: Yes Alcohol Intake: former Year quit: 2000 Drug use: Never Substance use type: does not use Adopted: No Caregiver/Support person: No Household members: significant other Housing: apartment Number of Children: 4 number of grandchildren: 4 Communication Needs: None Education Level: high school Do you need help understanding health information?: Rarely 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 Pets and animals: Yes Pets and animals: cat(s), dog(s) and horse(s) Sexually active: No Do you think of yourself as: straight/heterosexual Current gender identity: female What is your relationship status?: How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
[2025-09-08 12:52] LABS: Abs Immature Grans 0.04 10^3/uL (0.0-0.06); HCT 45.1 % (36.0-46.0); HGB 14.0 g/dL (11.2-15.7); Immature Grans % 0.4 %; MCH 28.7 pg (27.0-33.0); MCHC 31.0 % (32.0-36.0); MCV 93 fL (80-95); MPV 10.2 fL (8.0-11.0); Platelet Count 264 10^3/uL (130-400); RBC 4.87 10^6/uL (3.93-5.22); RDW 14.0 % (11.7-14.6); RDW-SD 47.5 fL; WBC 9.86 10^3/uL (4.4-10.8)
[2025-09-08 13:07] LABS: Troponin I 12 ng/L (<35)
[2025-09-08 13:09] LABS: ALT 22 U/L (10-49); AST 22 U/L (<34); Albumin 4.5 g/dL (3.2-5.0); Alkaline Phosphatase 101 U/L (46-116); Anion Gap 9.3 mmol/L (3-11); BUN 36 mg/dL (9-23); Bilirubin, Total 0.9 mg/dL (0.2-1.2); CO2 28.7 mmol/L (20.0-31.0); Calcium 9.3 mg/dL (8.3-10.6); Chloride 105 mmol/L (98-107); Glucose 139 mg/dL (74-106); Lipase 22 U/L (<53); Magnesium 1.9 mg/dL (1.6-2.6); Potassium 4.0 mmol/L (3.5-5.1); Sodium 143 mmol/L (136-145); Total Protein 7.4 g/dL (5.7-8.2)
[2025-09-08 13:10] LABS: INR 1.1 (0.9-1.1); PTT Activated 29.2 sec (20.6-30.2); Prothrombin Time 10.8 sec (9.1-11.1)
[2025-09-08] MEDS: nitroGLYcerin 0.4 MG TAB SL (14:02)
[2025-09-08 14:17] LABS: Troponin I 12 ng/L (<35)
[2025-09-08] MEDS: MORPHine 10 MG/ML VIAL 2 MG IVP ×3 (15:26→17:28)
[2025-09-08] MEDS: nitroGLYcerin in D5W 50 MG/250 ML BTL IV (16:07)
[2025-09-08 16:23] LABS: Troponin I 14 ng/L (<35)
== END 2025-09-08 18:02 | disposition short-term general hospital (02) ==
PROVIDERS: Emergency Medicine; Emergency Provider General Practice; PCP Family Medicine
DX: I20.0 Unstable angina (principal); I50.9 Heart failure, unspecified; J96.11 Chronic respiratory failure with hypoxia; N18.4 Chronic kidney disease, stage 4 (severe)
CPT/HCPCS: 99285 ×2; 96375; 96376; 80053; 83690; 93005; 96365; 71046; 83735; 83880; 84484; 85025; 85610; 85730; 93010; J2270; J2305